=== PATIENT | female | born 1960 | race Caucasian/White ===

== ENCOUNTER → 2016-04-18 | Outpatient (CLI) | payer BC ==
[~2016-04-18] MED LIST: ADVIN25/60 INH; ALBU18002 INH; ALBU1AER9 INH; ATOR-54 PO; BUPR-267 PO; BUPR-79 PO; CALC-214 PO; CALCIUM PO; CETI10TA84 PO; CHOL1000 PO; CLC100 PO; CRD200 PO; CYAN10005 PO; DAPT500I IV; DILT0.05 PO; ESCI10TA17 PO; FLEC100T21 PO; FLEC50TA20 PO; GLC500 PO; HYDC25 PO; HYDR12.55 PO; LISI-729 PO; LISI10TA PO; LORA-741 PO; LPT/40 PO; MAGNTAB4 PO; METF-384 PO; METO100T14 PO; METO1TAB71 PO; METO25TA56 PO; MGNO400 PO; MONT1TAB5 PO; NAPR1TAB9 PO; OMEG10007 PO; OXYC-57 PO; OXYC-88 PO; RIVA1TAB4 PO; SLOW MAG PO; SNG10 PO; SULF800T23 PO; XRL10 PO
[2016-04-18 16:54] LABS: CHOLESTEROL/HDL RATIO 2.8
[2016-04-18 21:25] LABS: BLOOD UREA NITROGEN 17 mg/dl (7-18); BUN/CREATININE RATIO 20.2 (10-20); CARBON DIOXIDE 25 mmol/L (21-32); CHLORIDE 99 mmol/L (98-107); CREATININE 0.82 mg/dl (0.60-1.20); GLUCOSE 100 mg/dl (70-99); MAGNESIUM 1.5 mg/dl (1.8-2.4); POTASSIUM 4.3 mmol/L (3.5-5.1); SODIUM 138 mmol/L (136-145)
== END | disposition home or self-care (01) ==
LOC: C.LAB1850 15:31
PROVIDERS: ATTEND Nurse Practitioner Adult Health
DX: E83.42 Hypomagnesemia (principal); I48.0 Paroxysmal atrial fibrillation; E78.00 Pure hypercholesterolemia, unspecified

== ENCOUNTER → 2016-05-14 | Outpatient (CLI) | payer BC ==
[~2016-05-14] MED LIST changes: -METO25TA56 PO
[2016-05-14 14:40] LABS: BASO % 0.3 %; BASO ABS # 0.03 K/uL (0-0.2); COMPLETE YES; EOS % 3.3 %; HEMATOCRIT 39.3 % (37-47); IG% 0.2 %; LYMPH % 24.5 %; LYMPH ABS # 2.25 K/uL (1.2-3.4); MEAN CELL VOLUME 101.3 fL (80-100); MEAN CORPUSCULAR HEMOGLOBIN 33.5 pg (25-34); MEAN CORPUSCULAR HGB CONC 33.1 g/dl (32-36); MONO % 6.7 %; PLATELET COUNT 245 K/uL (130-400); RED BLOOD COUNT 3.88 M/uL (4.2-5.4); WHITE BLOOD COUNT 9.17 K/uL (4.8-10.8)
[2016-05-14 15:04] LABS: MAGNESIUM 1.4 mg/dl (1.8-2.4); THYROID STIMULATING HORMONE 3.4 uIu/ml (0.300-4.500)
[2016-05-14 15:18] LABS: RATIO 79.5 mcg/mg (0-30.0)
== END | disposition home or self-care (01) ==
LOC: C.LAB1850 13:33
PROVIDERS: ATTEND Internal Medicine
DX: I48.91 Unspecified atrial fibrillation (principal); E83.42 Hypomagnesemia; E11.9 Type 2 diabetes mellitus without complications; E03.9 Hypothyroidism, unspecified

== ENCOUNTER → 2016-05-22 | Day surgery (SDC) | payer BC ==
[~2016-05-22] VITALS: Ht 160 cm; Wt 117.0 kg
[~2016-05-22] MED LIST changes: +PROPOFOL IV EMULSION 10 MG/ML 20 ML VIAL IV ONE
[2016-05-22 07:05] VITALS: BP 120/77; PULSE 131; TEMP 36.3; O2SAT 96; Ht 160 cm; Wt 117.0 kg
[2016-05-22 07:40] VITALS: BP 109/87; PULSE 127; O2SAT 98
[2016-05-22 07:43] VITALS: BP 141/90; PULSE 70; O2SAT 98
[2016-05-22 07:45] VITALS: BP 124/74; PULSE 70; O2SAT 98
--- NOTE | 2016-05-22 07:49 | Anesthesiology Progress Note ---
Anesthesia Post Op Note Date & Time May 22, 2016 at 07:49 Vital Signs Pain Intensity: 0 Vital Signs Past 12 Hours Date Time Temp Pulse Resp B/P Pulse Ox O2 Delivery O2 Flow Rate FiO2 05/22/16 07:45 70 16 124/74 98 Nasal Cannula 4 05/22/16 07:43 70 16 141/90 98 Nasal Cannula 4 05/22/16 07:40 127 16 109/87 98 Nasal Cannula 4 05/22/16 07:05 36.3 131 16 120/77 96 Room Air Notes Mental Status: alert / awake / arousable, participated in evaluation Pt Amnestic to Procedure: Yes Nausea / Vomiting: adequately controlled Pain: adequately controlled Airway Patency, RR, SpO2: stable & adequate BP & HR: stable & adequate Hydration State: stable & adequate Anesthetic Complications: no major complications apparent
--- NOTE | 2016-05-22 07:56 | Procedure Note ---
Procedure Note Procedure Date May 22, 2016. Procedure Description Procedure Name: External Cardioversion Procedure time out: side/site verified, patient ID confirmed, correct procedure Consent obtained: written Time of procedure: 07:43 Performed by: attending Indications: therapeutic Contraindications: none Description: External DC Cardioversion Indication - Persistent atrial fibrillation with RVR. Informed consent obtained. Anesthesia provided by Dr. Aguirre. External pads placed in an anterior-lateral position. One synchronized shock provided at 200J with conversion to sinus rhythm. Patient monitored in recovery unit without complications. Summary: 1. Successful cardioversion for Atrial Fibrillation Recommendations: 1. Continue anticoagulation 2. Continue AV jennifer agents. 3. Follow-up with cardiology clinic in 2 weeks. Complications: none Patient tolerated procedure: well Post-procedure vital signs: reviewed and stable
--- NOTE | 2016-05-22 08:00 | Discharge Instructions ---
Discharge Instructions Procedure Procedure Date: May 22, 2016. Reason for Visit: W/Anesthesia A Fib *. Discharge Discharge Date: May 22, 2016. Discharge Diagnosis: Atrial Fibrillation Last Recorded Wt (Kilograms): 117 Anesthesia Post Anesthesia Instructions: If you have had General Anesthesia or IV Sedation: * Do not drive today. * Resume driving when fall intern permits. * Do not make important decisions or sign legal documents today. * Call surgeon for: 1. Temperature elevations greater than 101 degrees F. 2. Uncontrollable pain. 3. Excessive bleeding. 4. Persistent nausea and vomiting. 5. Medication intolerance (nausea, vomiting or rash). * For nausea and vomiting use only clear liquids such as: tea, soda, bouillon until nausea subsides, then gradually increase diet as tolerated. * If you have any concerns or questions, call your surgeon's office. If physician is unavailable and it is an emergency, call 911 or go to the nearest emergency room. Instructions Activity Recommendations: limitations as noted below Recommended Home Diet: resume previous diet Allergies: Coded Allergies: Penicillins (Verified Allergy, Unknown, UNKNOWN, 03/19/15) Provider Instructions Can resume normal activities tomorrow Follow Up Additional Instructions: Continue taking your Xarelto and Metoprolol Follow-up with: Nurys Milian as scheduled Jenni Hoang Recommendations: Call your doctor if: * Temperature above 101 degrees * Pain not relieved by pain medicine ordered * There is increased drainage or redness from any incision * You have any unanswered questions or concerns. Your Doctors Instructions noted above were prepared by provider Rob Martinez. Patient Signature Section: Patient Instructions Signature Page Chely Agrawal Patient (or Guardian) Signature/Date: I have read and understand the instructions given to me by my caregivers. Caregiver/RN/Doctor Signature/Date: The above-named patient and/or guardian has received patient instructions on this date. + Original Patient Signature Page (only) stays with chart. Please make copy for patient.
[2016-05-22 09:15] VITALS: BP 108/70; PULSE 68; O2SAT 95
== END | disposition home or self-care (01) ==
LOC: C.CATH 06:45
PROVIDERS: ATTEND Internal Medicine Interventional Cardiology
DX: I48.0 Paroxysmal atrial fibrillation (principal); I10 Essential (primary) hypertension; E11.9 Type 2 diabetes mellitus without complications; E78.5 Hyperlipidemia, unspecified; J45.909 Unspecified asthma, uncomplicated; F32.9 Major depressive disorder, single episode, unspecified; M86.10 Other acute osteomyelitis, unspecified site; E03.9 Hypothyroidism, unspecified; M19.90 Unspecified osteoarthritis, unspecified site; Z83.3 Family history of diabetes mellitus; Z82.49 Family history of ischemic heart disease and other diseases of the circulatory system

== ENCOUNTER → 2016-07-04 | Day surgery (SDC) | payer BC ==
[~2016-07-04] VITALS: Ht 160 cm; Wt 115.0 kg
[~2016-07-04] MED LIST changes: -ATOR-54 PO; -HYDC25 PO; +LIDOCAINE HCL 2% 2 ML VIAL (20MG/ML) ONE; -LISI10TA PO; -MAGNTAB4 PO; +METO-649 PO; -METO100T14 PO; -METO1TAB71 PO
[2016-07-04 07:05] VITALS: BP 150/114; PULSE 129; TEMP 36.5; O2SAT 96; Ht 160 cm; Wt 115.0 kg
[2016-07-04 07:36] VITALS: BP 143/91; PULSE 108; O2SAT 99
[2016-07-04 07:40] VITALS: BP 147/103; PULSE 128; O2SAT 93
[2016-07-04 07:45] VITALS: BP 101/56; PULSE 60; O2SAT 98
[2016-07-04 07:50] VITALS: BP 100/59; PULSE 60; O2SAT 99
--- NOTE | 2016-07-04 07:55 | Procedure Note ---
Procedure Note Procedure Date Jul 04, 2016. Procedure Description Procedure Name: External DC Cardioversion Procedure time out: patient ID confirmed, correct procedure Consent obtained: written Time of procedure: 07:41 Performed by: attending Indications: therapeutic Contraindications: none Description: Indication - Persistent atrial fibrillation with RVR. Repeat attempt now on antiarrhythmics. Informed consent obtained. Anesthesia provided by Dr. Godinez. External pads placed in an anterior-lateral position. One synchronized shock provided at 200J with conversion to sinus rhythm. Patient monitored in recovery unit without complications. Summary: 1. Successful cardioversion for Atrial Fibrillation Recommendations: 1. Continue anticoagulation 2. Continue metoprolol and flecanide 3. Follow-up with cardiology clinic in 2 weeks.
--- NOTE | 2016-07-04 07:56 | Anesthesiology Progress Note ---
Anesthesia Post Op Note Date & Time Jul 04, 2016 at 07:55 Vital Signs Pain Intensity: 0 Vital Signs Past 12 Hours Date Time Temp Pulse Resp B/P Pulse Ox O2 Delivery O2 Flow Rate FiO2 07/04/16 07:51 58 18 100/59 98 Nasal Cannula 2 07/04/16 07:50 60 18 100/59 99 Nasal Cannula 2 07/04/16 07:45 60 18 101/56 98 Nasal Cannula 4 07/04/16 07:40 128 18 147/103 93 Nasal Cannula 4 07/04/16 07:36 108 18 143/91 99 Nasal Cannula 4 07/04/16 07:05 36.5 129 16 150/114 96 Room Air Notes Mental Status: alert / awake / arousable, participated in evaluation Pt Amnestic to Procedure: Yes Nausea / Vomiting: adequately controlled Pain: adequately controlled Airway Patency, RR, SpO2: stable & adequate BP & HR: stable & adequate Hydration State: stable & adequate Anesthetic Complications: no major complications apparent Pt had DC cardioversion under IV sedation. She did well. When I left she was in SR, vitals stable, awake and talking.
--- NOTE | 2016-07-04 08:02 | Discharge Instructions ---
Discharge Instructions Procedure Procedure Date: Jul 04, 2016. Reason for Visit: *W/Anesthesia* Afib. Discharge Discharge Date: Jul 04, 2016. Discharge Diagnosis: Atrial Fibrillation Last Recorded Wt (Kilograms): 115 Anesthesia Post Anesthesia Instructions: If you have had General Anesthesia or IV Sedation: * Do not drive today. * Resume driving when surgeon permits. * Do not make important decisions or sign legal documents today. * Call surgeon for: 1. Temperature elevations greater than 101 degrees F. 2. Uncontrollable pain. 3. Excessive bleeding. 4. Persistent nausea and vomiting. 5. Medication intolerance (nausea, vomiting or rash). * For nausea and vomiting use only clear liquids such as: tea, soda, bouillon until nausea subsides, then gradually increase diet as tolerated. * If you have any concerns or questions, call your surgeon's office. If physician is unavailable and it is an emergency, call 911 or go to the nearest emergency room. Instructions Activity Recommendations: resume regular activity Recommended Home Diet: resume previous diet Allergies: Coded Allergies: Penicillins (Verified Allergy, Unknown, UNKNOWN, 03/19/15) Follow Up Follow-up with: Cardiology clinic in 2-4 weeks [facility] Recommendations: Call your doctor if: * Temperature above 101 degrees * Pain not relieved by pain medicine ordered * There is increased drainage or redness from any incision * You have any unanswered questions or concerns. Your Doctors Instructions noted above were prepared by provider Rob Martinez. Patient Signature Section: Patient Instructions Signature Page Chely Agrawal Patient (or Guardian) Signature/Date: I have read and understand the instructions given to me by my caregivers. Caregiver/RN/Doctor Signature/Date: The above-named patient and/or guardian has received patient instructions on this date. + Original Patient Signature Page (only) stays with chart. Please make copy for patient.
[2016-07-04 09:00] VITALS: BP 104/72; PULSE 58; O2SAT 96
== END | disposition home or self-care (01) ==
LOC: C.CATH 06:39
PROVIDERS: ATTEND Internal Medicine Interventional Cardiology
DX: I48.91 Unspecified atrial fibrillation (principal); I10 Essential (primary) hypertension; M86.9 Osteomyelitis, unspecified; E78.5 Hyperlipidemia, unspecified; J45.909 Unspecified asthma, uncomplicated; F32.9 Major depressive disorder, single episode, unspecified; E11.42 Type 2 diabetes mellitus with diabetic polyneuropathy; E78.00 Pure hypercholesterolemia, unspecified; E66.9 Obesity, unspecified; M19.90 Unspecified osteoarthritis, unspecified site; Z87.891 Personal history of nicotine dependence; Z88.0 Allergy status to penicillin; Z88.8 Allergy status to other drugs, medicaments and biological substances

== ENCOUNTER 2016-09-13 11:48 | Inpatient (IN) | payer BC ==
[~2016-09-13] VITALS: Ht 160 cm; Wt 124.4 kg
[~2016-09-13 11:48] MED LIST changes: -ALBU18002 INH; -BUPR-267 PO; -CALC-214 PO; -CETI10TA84 PO; -CLC100 PO; -CRD200 PO; -DAPT500I IV; -DILT0.05 PO; -FLEC50TA20 PO; -LIDOCAINE HCL 2% 2 ML VIAL (20MG/ML) ONE; -METF-384 PO; -MGNO400 PO; -MONT1TAB5 PO; -OMEG10007 PO; -OXYC-57 PO; -OXYC-88 PO; -PROPOFOL IV EMULSION 10 MG/ML 20 ML VIAL IV ONE
[2016-09-13] MEDS ORDERED: ALBU18002 INH (12:48)
[2016-09-13] MEDS ORDERED: METF-384 PO (12:48)
[2016-09-13] MEDS ORDERED: MONT1TAB5 PO (12:48)
[2016-09-13] MEDS ORDERED: CETI10TA84 PO (12:48)
[2016-09-13] MEDS ORDERED: CALC-214 PO (12:48)
[2016-09-13] MEDS ORDERED: SODIUM CHLORIDE 0.9% 1000ML 1,000 ML IV STA ×2 (12:56→13:11)
[2016-09-13 13:13] LABS: BASO % 0.2 %; BASO ABS # 0.02 K/uL (0-0.2); COMPLETE YES; HEMATOCRIT 36.3 % (37-47); IG% 0.2 %; LYMPH % 13.6 %; LYMPH ABS # 1.38 K/uL (1.2-3.4); MEAN CELL VOLUME 100.8 fL (80-100); MEAN CORPUSCULAR HEMOGLOBIN 32.5 pg (25-34); MEAN CORPUSCULAR HGB CONC 32.2 g/dl (32-36); MEAN PLATELET VOLUME 10.3 fL (7.4-10.4); MONO % 7.3 %; NEUT % 77.7 %; PLATELET COUNT 231 K/uL (130-400); WHITE BLOOD COUNT 10.11 K/uL (4.8-10.8)
--- NOTE | 2016-09-13 13:13 | EMERGENCY ROOM VISIT NOTE ---
History Report prepared by Tha: Katharine Ray Under the Supervision of: Dr. Venkat Coronel M.D. First contact with patient: 12:25 Chief Complaint: INFECTION Stated Complaint: LEFT FOOT MIDDLE TOE-TOE INFECTION Nursing Triage Summary: "left middle toe infection" has had for about a week ( stubbed it over a week ago) got worse last night. increased edema, redness and drainage. pt type 2 diabetic, also has neuropathy. History of Present Illness The patient is a 56 year old female who presents to the Emergency Room with complaints of swelling and erythema of the third left toe starting about 2 days ago and worsening today. She has erythema radiating up to the left leg. She stubbed the toe about a week and a half ago but did not initially have any pain , discomfort, or difficulty, with movement of the toe. She is now unable to move the toe as normal. She currently denies any pain but has a history of neuropathy. She reports some tingling in the left foot. The patient has a history of diabetes. Her blood sugar level has been normal recently but she has not checked it in the past few days. She also has a history of right fifth toe removal secondary to infection. She has an infection of the right leg after a right knee replacement and she is chronically on Bactrim. She denies any fevers , chills, or any other complaints. Source of History: patient Onset: about 2 days ago Position: toe(s) (third left toe) Quality: other (swelling and erythema) Timing: worsening Modifying Factors (Relieving): other (Bactrim) Associated Symptoms: No fevers, No chills Review of Systems See HPI for pertinent positives & negatives. A total of 10 systems reviewed and were otherwise negative. Past Medical & Surgical Medical Problems: (1) Abscess or cellulitis of foot (2) Anxiety (3) Asthma (4) cellulitis (5) Cellulitis of third toe, left (6) Cellulitis of third toe, left (7) Depression (8) Diabetes (9) Diabetic foot infection (10) Hypercholesteremia (11) Hypertension (12) Osteomyelitis (13) Paroxysmal a-fib Surgical Problems: (1) History of knee replacement procedure of right knee (2) Post-operative state Family History Diabetes mellitus FHx: cancer FHx: heart disease Hypertension Kidney disease Kidney stones Social History Smoking Status: Never Smoker Alcohol Use: none Drug Use: none Marital Status: single Housing Status: lives with family Occupation Status: employed Current/Historical Medications Scheduled Atorvastatin (Lipitor), 40 MG PO DAILY Bupropion (Wellbutrin Sr), 150 MG PO DAILY Calcium W/ Magnesium (Calcium & Magnesium), 64-106 MG PO BID Cetirizine (Zyrtec), 10 MG PO DAILY Cholecalciferol (Vitamin D3), 1 TAB PO DAILY Cyanocobalamin (Vitamin B-12), 1,000 MCG PO DAILY Escitalopram (Lexapro), 10 MG PO HS Flecainide (Tambocor), 100 MG PO BID Fluticasone Prop/Salmeterol (Advair Diskus 250/50 60 Dose), 1 PUFFS INH DAILY Hydrochlorothiazide (Hydrochlorothiazide), 1 TAB PO DAILY Lisinopril (Zestril), 5 MG PO DAILY Metformin Hcl (Glucophage), 1,000 MG PO BID Metoprolol Succinate (Toprolxl (Toprol-Xl), 200 MG PO DAILY Montelukast Sodium (Montelukast Sodium), 1 TAB PO DAILY Rivaroxaban (Xarelto), 1 TAB PO DAILY Sulfa/Trimethoprim (Bactrim Ds 800MG/160MG), 1 TAB PO BID Scheduled PRN Albuterol Sulfate (Proair Respiclick), 2 PUFFS INH q4-6h PRN for SOB/Wheezing Lorazepam (Ativan), 0.25-0.5 MG PO BID PRN for Anxiety/Agitation Naproxen (Aleve), 220 MG PO Q12 PRN for Pain Allergies Coded Allergies: Penicillins (Verified Allergy, Unknown, UNKNOWN, 03/19/15) Physical Exam Vital Signs Date Time Temp Pulse Resp B/P (MAP) Pulse Ox O2 Delivery O2 Flow Rate FiO2 09/13/16 13:30 114 21 150/122 94 Room Air 09/13/16 11:54 36.7 118 20 149/83 96 Room Air Physical Exam GENERAL: Patient is anxious appearing and in minimal distress. HEENT: No acute trauma, normocephalic atraumatic, mucous membranes moist, no nasal congestion, no scleral icterus. NECK: No stridor, no adenopathy, no meningismus, trachea is midline. LUNGS: No dyspnea. Clear to auscultation and equal bilaterally. No wheeze, no rhonchi. HEART: Tachycardic rate and regular rhythm. No murmurs, rubs, gallops appreciated. ABDOMEN: Soft, nontender, bowel sounds positive, no masses appreciated, no peritonitis. BACK: No midline tenderness, no CVA tenderness EXTREMITIES: No cyanosis. Severe swelling of the third left toe, with drainage from multiple points on tip, erythema streaking over foot to ankle and up to knee, she has some left inguinal lymphadenopathy, swelling of the left foot compared to right, nonhealing wound of the right gaines. NEUROLOGIC: Alert and oriented, no acute motor or sensory deficits, no focal weakness, cranial nerves grossly intact. SKIN: Mildly diaphoretic. No rash, no jaundice. Medical Decision & Procedures ER Provider Diagnostic Interpretation: X ray results are stated below per my interpretation and the radiologist's interpretation. LEFT THIRD TOE RADIOGRAPHS CLINICAL HISTORY: Left third toe infection. COMPARISON: Left toe radiographs February 28, 2013. FINDINGS: Note is made of soft tissue swelling of the left third toe. There is destruction of the mid to distal aspect of the distal phalanx of the left third toe. A few remaining bone fragments are present. No radiopaque foreign bodies are identified. No acute fracture is identified. IMPRESSION: Soft tissue swelling of the left third toe with destruction of the mid to distal aspect of the distal phalanx of the left third toe consistent with osteomyelitis given the clinical history. Electronically signed by: Jose Ramon Bates M.D. 09/13/2016 1:49 PM Dictated Date/Time: 09/13/2016 1:47 PM Laboratory Results 09/13/16 12:48 Red Blood Count 3.60, Mean Corpuscular Volume 100.8, Mean Corpuscular Hemoglobin 32.5, Mean Corpuscular Hemoglobin Concent 32.2, Mean Platelet Volume 10.3, Neutrophils (%) (Auto) 77.7, Lymphocytes (%) (Auto) 13.6, Monocytes (%) ( Auto) 7.3, Eosinophils (%) (Auto) 1.0, Basophils (%) (Auto) 0.2, Neutrophils # ( Auto) 7.85, Lymphocytes # (Auto) 1.38, Monocytes # (Auto) 0.74, Eosinophils # ( Auto) 0.10, Basophils # (Auto) 0.02 09/13/16 12:48 Test 09/13/16 12:48 09/13/16 12:57 White Blood Count 10.11 K/uL (4.8-10.8) Red Blood Count 3.60 M/uL (4.2-5.4) Hemoglobin 11.7 g/dL (12.0-16.0) Hematocrit 36.3 % (37-47) Mean Corpuscular Volume 100.8 fL (80-100) Mean Corpuscular Hemoglobin 32.5 pg (25-34) Mean Corpuscular Hemoglobin Concent 32.2 g/dl (32-36) Platelet Count 231 K/uL (130-400) Mean Platelet Volume 10.3 fL (7.4-10.4) Neutrophils (%) (Auto) 77.7 % Lymphocytes (%) (Auto) 13.6 % Monocytes (%) (Auto) 7.3 % Eosinophils (%) (Auto) 1.0 % Basophils (%) (Auto) 0.2 % Neutrophils # (Auto) 7.85 K/uL (1.4-6.5) Lymphocytes # (Auto) 1.38 K/uL (1.2-3.4) Monocytes # (Auto) 0.74 K/uL (0.11-0.59) Eosinophils # (Auto) 0.10 K/uL (0-0.5) Basophils # (Auto) 0.02 K/uL (0-0.2) RDW Standard Deviation 52.8 fL (36.4-46.3) RDW Coefficient of Variation 14.3 % (11.5-14.5) Immature Granulocyte % (Auto) 0.2 % Immature Granulocyte # (Auto) 0.02 K/uL (0.00-0.02) Erythrocyte Sedimentation Rate 55 mm/hr (0-21) Anion Gap 12.0 mmol/L (3-11) Est Creatinine Clear Calc Drug Dose 124.1 ml/min Estimated GFR () 116.7 Estimated GFR (Non- 100.7 BUN/Creatinine Ratio 16.4 (10-20) Calcium Level 9.0 mg/dl (8.5-10.1) C-Reactive Protein 5.59 mg/dl (0-0.29) Bedside Lactic Acid Venous 2.55 mmol/L (0.90-1.70) Laboratory results as reviewed by me. Medications Administered Medications (Trade) Dose Ordered Sig/Flash Route Start Time Stop Time Status Last Admin Dose Admin Sodium Chloride 1,000 ml @ 999 mls/hr Q1H1M STAT IV 09/13/16 12:56 09/13/16 13:56 DC 09/13/16 12:56 999 MLS/HR Sodium Chloride 1,000 ml @ 999 mls/hr Q1H1M STAT IV 09/13/16 13:11 09/13/16 14:11 DC 09/13/16 13:11 999 MLS/HR Vancomycin HCl 2800 mg/Sodium Chloride 556 ml @ 200 mls/hr ONE STAT IV 09/13/16 14:00 09/13/16 16:46 09/13/16 14:39 200 MLS/HR Aztreonam 2000 mg/ Dextrose 110 ml @ 100 mls/hr NOW STAT IV 09/13/16 14:00 09/13/16 15:05 DC 09/13/16 15:00 100 MLS/HR ED Course 1225: The patient was evaluated in room B08. A complete history and physical exam was performed. 1256: Sodium Chloride 1000 ml @ 999 mls/hr IV 1311: Sodium Chloride 1000 ml @ 999 mls/hr IV 1358: I discussed the patient's case with Dr. Huff, from [facility]. 1400: Aztreonam 2000 mg/Dextrose 110 ml @ 100 mls/hr IV, Vancomycin HCl 2800 mg/ Sodium Chloride 556 ml @ 200 mls/hr IV. Upon reevaluation, the patient is resting comfortably. Discussed results and treatment plan with the patient. She verbalized understanding and agreement with the treatment plan. The patient will be evaluated for further management. Medical Decision Differential diagnosis includes but is not limited to sepsis, osteomyelitis, diabetic foot infection, MRSA. Medication Reconciliation: I attest that I have personally reviewed the patient 's current medication list. Blood pressure screening: Patient was found to have an elevated blood pressure and was referred to the hospitalist for recheck and further treatment. 56 yr old female arrives for evaluation of left 3 toe infection. Seems likely ongoing for quite some time though clearly has rapidly worsened, now with erythema going up leg and lymph node swelling left groin. Afebrile, but elevated inflammatory markers with tachycardia and elevated Lactic Acid concerning for early sepsis. She is diabetic and already on suppressive abx therapy. Will need to come in for IV abx and likely toe, etc amputation. She is not septic shock. Given Moderate Fluid resus for lactic acidosis though with obesity and good BP will hold on 30ml/kg. Consults Time Called: 0624 Consulting Physician: Dr. Huff, from [facility] Returned Call: [phone] I discussed the patient's case with Dr. Huff, from [facility]. Impression Primary Impression: Toe osteomyelitis, left Additional Impression: Sepsis Scribe Attestation The scribe's documentation has been prepared under my direction and personally reviewed by me in its entirety. I confirm that the note above accurately reflects all work, treatment, procedures, and medical decision making performed by me. Departure Information Dispostion Being Evaluated By Hospitalist Referrals ,Parveen Copeland M.D. (PCP) Patient Instructions My [facility] [address] Health Problem Qualifiers
[2016-09-13 13:26] LABS: BLOOD UREA NITROGEN 11 mg/dl (7-18); BUN/CREATININE RATIO 16.4 (10-20); C-REACTIVE PROTEIN 5.59 mg/dl (0-0.29); CARBON DIOXIDE 26 mmol/L (21-32); CHLORIDE 98 mmol/L (98-107); CREATININE 0.65 mg/dl (0.60-1.20); GLUCOSE 99 mg/dl (70-99); SODIUM 136 mmol/L (136-145)
--- NOTE | 2016-09-13 13:51 | DIAGNOSTIC IMAGING REPORT ---
LEFT THIRD TOE RADIOGRAPHS CLINICAL HISTORY: Left third toe infection. COMPARISON: Left toe radiographs February 28, 2013. FINDINGS: Note is made of soft tissue swelling of the left third toe. There is destruction of the mid to distal aspect of the distal phalanx of the left third toe. A few remaining bone fragments are present. No radiopaque foreign bodies are identified. No acute fracture is identified. IMPRESSION: Soft tissue swelling of the left third toe with destruction of the mid to distal aspect of the distal phalanx of the left third toe consistent with osteomyelitis given the clinical history. Electronically signed by: Jose Ramon Bates M.D. 09/13/2016 1:49 PM Dictated Date/Time: 09/13/2016 1:47 PM
[2016-09-13] MEDS ORDERED: VANCOMYCIN INJ 2,800 MG in SODIUM CHLORIDE 0.9% 500ML 500 ML IV STA (14:00)
[2016-09-13] MEDS ORDERED: AZTREONAM IV 2,000 MG in DEXTROSE 5% 100ML 100 ML IV STA (14:00)
[2016-09-13 14:30] VITALS: O2SAT 94; Ht 160 cm; Wt 124.4 kg
[2016-09-13] MEDS ORDERED: FLUTICASONE/SALMETEROL 250/50 (ADVAIR) 14 PUFF/1 INHALER INH PRN (14:30)
[2016-09-13] MEDS ORDERED: ONDANSETRON INJ 2 MG/ML 2 ML VIAL IV PRN (15:00)
[2016-09-13] MEDS ORDERED: DEXTROSE 50% 50 ML SYR IV PRN (15:00)
[2016-09-13] MEDS ORDERED: GLUCAGON FOR INJ 1 MG VIAL SQ PRN (15:00)
[2016-09-13] MEDS ORDERED: GLUCOSE 10 TABS/TUBE PO PRN (15:00)
[2016-09-13] MEDS ORDERED: ALBUTEROL HFA 8 GM INHALER INH PRN (15:00)
[2016-09-13] MEDS ORDERED: GLUCOSE 40% GEL 15 GM TUBE PO PRN (15:00)
[2016-09-13] MEDS ORDERED: ACETAMINOPHEN IV 100 ML IV PRN (15:00)
[2016-09-13] MEDS ORDERED: VANCOMYCIN CONSULT ACTIVE PRN (15:00)
--- NOTE | 2016-09-13 15:24 | Pharmacy Progress Note ---
Pharmacy Antibiotic Consult Date of Service: Sep 13, 2016. Pharmacy Dosing Scope Pharmacy is consulted to initiate vancomycin, aztreonam, and clindamycin IV dosing therapy, order appropriate labs and adjust drug dose/frequency. Subjective The patient is a 56 year old female admitted on 09/13/16 with complaints of swelling and erythema of the third left toe starting about 2 days ago and worsening today. Objective Height (Feet): 5 Height (Inches): 3.00 Weight (Kilograms): 120.000 Lab Results (24hrs): Test 09/13/16 12:44 09/13/16 12:48 09/13/16 12:57 09/13/16 14:26 Bedside Glucose 106 mg/dl (70-90) 99 mg/dl (70-90) White Blood Count 10.11 K/uL (4.8-10.8) Red Blood Count 3.60 M/uL (4.2-5.4) Hemoglobin 11.7 g/dL (12.0-16.0) Hematocrit 36.3 % (37-47) Mean Corpuscular Volume 100.8 fL (80-100) Mean Corpuscular Hemoglobin 32.5 pg (25-34) Mean Corpuscular Hemoglobin Concent 32.2 g/dl (32-36) Platelet Count 231 K/uL (130-400) Mean Platelet Volume 10.3 fL (7.4-10.4) Neutrophils (%) (Auto) 77.7 % Lymphocytes (%) (Auto) 13.6 % Monocytes (%) (Auto) 7.3 % Eosinophils (%) (Auto) 1.0 % Basophils (%) (Auto) 0.2 % Neutrophils # (Auto) 7.85 K/uL (1.4-6.5) Lymphocytes # (Auto) 1.38 K/uL (1.2-3.4) Monocytes # (Auto) 0.74 K/uL (0.11-0.59) Eosinophils # (Auto) 0.10 K/uL (0-0.5) Basophils # (Auto) 0.02 K/uL (0-0.2) RDW Standard Deviation 52.8 fL (36.4-46.3) RDW Coefficient of Variation 14.3 % (11.5-14.5) Immature Granulocyte % (Auto) 0.2 % Immature Granulocyte # (Auto) 0.02 K/uL (0.00-0.02) Erythrocyte Sedimentation Rate 55 mm/hr (0-21) Sodium Level 136 mmol/L (136-145) Potassium Level mmol/L (3.5-5.1) Chloride Level 98 mmol/L (98-107) Carbon Dioxide Level 26 mmol/L (21-32) Anion Gap 12.0 mmol/L (3-11) Blood Urea Nitrogen 11 mg/dl (7-18) Creatinine 0.65 mg/dl (0.60-1.20) Est Creatinine Clear Calc Drug Dose 124.1 ml/min Estimated GFR () 116.7 Estimated GFR (Non- 100.7 BUN/Creatinine Ratio 16.4 (10-20) Random Glucose 99 mg/dl (70-99) Calcium Level 9.0 mg/dl (8.5-10.1) C-Reactive Protein 5.59 mg/dl (0-0.29) Bedside Lactic Acid Venous 2.55 mmol/L (0.90-1.70) Test 09/13/16 14:41 Micro Results: Item Value Date Time Blood Culture Received 09/13/16 1248 Blood Pending Blood Culture Received 09/13/16 1257 Blood Pending Blood Culture Received 09/13/16 1441 Blood Pending Blood Culture Received 09/13/16 1452 Blood Pending Recent Pertinent Medications Bactrim chronically at home Assessment & Plan Assessment: * 56 y/o with c/o worsening infection of toe * takes Bactrim at home chronically * MRI worrisome for osteomyelitis given H Plan: * Vancomycin, Aztreonam, and Clindamycin (broad-spectrum ABX in the setting of PCN allergy) Vancomycin: * Loading dose: 2800 mg (~23mg/kg) IV X 1 dose given in ED * Maintenance dos: 1500 mg (~12.5mg/kg) IV q 8 hours * atypical dosing secondary to likelihood for drug accumulation given body habitus * Goal trough level for bone/joint infections: 15-20mcg/mL * A trough level will be assessed at steady state on 09/15/16 prior to 08:00 dose Aztreonam (not a pharmacy consult): * 2000mg IV x1 dose given in ED * Continue 2000mg IV every 8 hours Clindamycin (not a pharmacy consult): * 900mg IV every 8 hours Pharmacy will continue to follow and will adjust dose/frequency as necessary. Thank you
[2016-09-13 16:30] VITALS: BP 125/95; PULSE 98; TEMP 36.9; O2SAT 95
[2016-09-13] MEDS: LORAZEPAM 0.5 MG TAB PO PRN (16:56)
[2016-09-13] MEDS: LACTOBACILLUS ACIDOPHILUS (FLORANEX) TAB PO SCH (17:34)
[2016-09-13] MEDS: CLINDAMYCIN IV 900 MG in DEXTROSE 5% ADD-VANTAGE 100ML 100 ML IV SCH (17:34)
[2016-09-13] MEDS: INSULIN ASPART 100 UNITS/ML 3 ML PEN SC SCH ×2 (17:44→20:58)
--- NOTE | 2016-09-13 18:58 | History and Physical ---
History & Physical Date & Time of Service: Sep 13, 2016 at 18:40 Chief Complaint: Sepsis, Toe Osteomyelitis -Left Primary Care Physician: Parveen Fishman M.D. History of Present Illness Source: patient The patient is a 56-year-old female with past medical history of diabetes mellitus, previous right fifth toe amputation, who reports that 2 days ago she developed left third toe swelling and redness that worsened today. She reports this began after she stubbed her toe week 1 1/2 weeks ago, but has significant neuropathy, and was unaware of any symptoms until 2 days ago. 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 Past Medical/Surgical History Medical Problems: (1) Abscess or cellulitis of foot Status: Resolved (2) Anxiety Status: Chronic (3) Asthma Status: Chronic (4) cellulitis Status: Resolved (5) Cellulitis of third toe, left Status: Resolved (6) Cellulitis of third toe, left Status: Resolved (7) Depression Status: Chronic (8) Diabetes Status: Chronic (9) Diabetic foot infection Status: Resolved (10) Hypercholesteremia Status: Chronic (11) Hypertension Status: Chronic (12) Osteomyelitis Status: Chronic (13) Paroxysmal a-fib Status: Resolved Surgical Problems: (1) History of knee replacement procedure of right knee Status: Resolved (2) Post-operative state Status: Resolved Family History Diabetes mellitus FHx: cancer FHx: heart disease Hypertension Kidney disease Kidney stones Social History Smoking Status: Never Smoker Smokeless Tobacco Use: No Alcohol Use: none Drug Use: none Marital Status: single Occupational Status: employed Immunizations History of Influenza Vaccine: No History of Tetanus Vaccine?: Yes History of Pneumococcal: No History of Hepatitis B Vaccine: No Multi-Drug Resistant Organisms History of MDRO: No Allergies Coded Allergies: Penicillins (Verified Allergy, Unknown, UNKNOWN, 03/19/15) Home Medications Scheduled Atorvastatin (Lipitor), 40 MG PO DAILY Bupropion (Wellbutrin Sr), 150 MG PO DAILY Calcium W/ Magnesium (Calcium & Magnesium), 64-106 MG PO BID Cetirizine (Zyrtec), 10 MG PO DAILY Cholecalciferol (Vitamin D3), 1 TAB PO DAILY Cyanocobalamin (Vitamin B-12), 1,000 MCG PO DAILY Escitalopram (Lexapro), 10 MG PO HS Flecainide (Tambocor), 100 MG PO BID Fluticasone Prop/Salmeterol (Advair Diskus 250/50 60 Dose), 1 PUFFS INH DAILY Hydrochlorothiazide (Hydrochlorothiazide), 1 TAB PO DAILY Lisinopril (Zestril), 5 MG PO DAILY Metformin Hcl (Glucophage), 1,000 MG PO BID Metoprolol Succinate (Toprolxl (Toprol-Xl), 200 MG PO DAILY Montelukast Sodium (Montelukast Sodium), 1 TAB PO DAILY Rivaroxaban (Xarelto), 1 TAB PO DAILY Sulfa/Trimethoprim (Bactrim Ds 800MG/160MG), 1 TAB PO BID Scheduled PRN Albuterol Sulfate (Proair Respiclick), 2 PUFFS INH q4-6h PRN for SOB/Wheezing Lorazepam (Ativan), 0.25-0.5 MG PO BID PRN for Anxiety/Agitation Naproxen (Aleve), 220 MG PO Q12 PRN for Pain Review of Systems The patient denies chest pain, palpitations, shortness of breath, cough, vision change, hearing change, sore throat, fevers, chills, sweats, weight change, fatigue, nausea, vomiting, abdominal pain, pelvic pain, blood in urine or stool, dysuria, urinary frequency or urgency, lightheadedness, dizziness, headache, memory loss, abnormal bruising or bleeding, imbalance, focal or generalized weakness, arthralgias or myalgias, back or neck pain, night sweats, or allergy symptoms. The review of systems is otherwise negative other than for that already noted above, and at least 10 systems have been reviewed. Physical Exam Vital Signs Date Time Temp Pulse Resp B/P (MAP) Pulse Ox O2 Delivery O2 Flow Rate FiO2 09/13/16 16:30 36.9 98 18 125/95 (105) 95 Room Air 09/13/16 16:00 Room Air 09/13/16 15:36 107 22 159/98 96 09/13/16 14:30 94 Room Air 09/13/16 13:30 114 21 150/122 94 Room Air 09/13/16 11:54 36.7 118 20 149/83 96 Room Air The patient is awake, well-developed and adequately nourished, alert and oriented 3, normocephalic and atraumatic, lying in bed and in no acute distress. HEENT--PERRL, EOMI, mucous membranes and oropharynx normal. Neck--supple, no JVD or bruits, thyroid normal, trachea midline, no adenopathy. Heart--normal S1 and S2, no extra beats, no murmurs, rubs or gallops. Lungs--clear bilaterally with good air movement, no respiratory distress, no accessory muscle use. Abdomen--normal bowel sounds and soft, nontender and nondistended, no hernias or masses, no organomegaly, and obese. Extremities--no cyanosis, clubbing.there is bilaterally pretibially 1+ pitting edema. There diminished distal pulses b/l. Right gaines with a 1 cm area ulcerated lesion below pretibial tuberosity. Left lower extremity with erythema dorsum of the left foot involving toes 2 through 4, with severe erythema and induration of the third toe. Dermatologic--as noted above. Neurologic--cranial nerves II through XII grossly intact. Rheumatologic--decreased range of motion left ankle, foot and toes. Psychiatric--appears sad and concerned. Diagnostics Laboratory Results Results Past 24 Hours Test 09/13/16 12:44 09/13/16 12:48 09/13/16 12:57 09/13/16 14:26 Range/Units Bedside Glucose 106 99 70-90 mg/dl White Blood Count 10.11 4.8-10.8 K/uL Red Blood Count 3.60 4.2-5.4 M/uL Hemoglobin 11.7 12.0-16.0 g/dL Hematocrit 36.3 37-47 % Mean Corpuscular Volume 100.8 80-100 fL Mean Corpuscular Hemoglobin 32.5 25-34 pg Mean Corpuscular Hemoglobin Concent 32.2 32-36 g/dl Platelet Count 231 130-400 K/uL Mean Platelet Volume 10.3 7.4-10.4 fL Neutrophils (%) (Auto) 77.7 % Lymphocytes (%) (Auto) 13.6 % Monocytes (%) (Auto) 7.3 % Eosinophils (%) (Auto) 1.0 % Basophils (%) (Auto) 0.2 % Neutrophils # (Auto) 7.85 1.4-6.5 K/uL Lymphocytes # (Auto) 1.38 1.2-3.4 K/uL Monocytes # (Auto) 0.74 0.11-0.59 K/uL Eosinophils # (Auto) 0.10 0-0.5 K/uL Basophils # (Auto) 0.02 0-0.2 K/uL RDW Standard Deviation 52.8 36.4-46.3 fL RDW Coefficient of Variation 14.3 11.5-14.5 % Immature Granulocyte % (Auto) 0.2 % Immature Granulocyte # (Auto) 0.02 0.00-0.02 K/uL Erythrocyte Sedimentation Rate 55 0-21 mm/hr Sodium Level 136 136-145 mmol/L Potassium Level 3.5-5.1 mmol/L Chloride Level 98 98-107 mmol/L Carbon Dioxide Level 26 21-32 mmol/L Anion Gap 12.0 3-11 mmol/L Blood Urea Nitrogen 11 7-18 mg/dl Creatinine 0.65 0.60-1.20 mg/dl Est Creatinine Clear Calc Drug Dose 124.1 ml/min Estimated GFR () 116.7 Estimated GFR (Non- 100.7 BUN/Creatinine Ratio 16.4 10-20 Random Glucose 99 70-99 mg/dl Calcium Level 9.0 8.5-10.1 mg/dl C-Reactive Protein 5.59 0-0.29 mg/dl Bedside Lactic Acid Venous 2.55 0.90-1.70 mmol/L Test 09/13/16 14:41 09/13/16 15:55 09/13/16 16:15 Range/Units Total Bilirubin 0.6 0.2-1 mg/dl Direct Bilirubin 0.2 0-0.2 mg/dl Aspartate Amino Transf (AST/SGOT) 14 15-37 U/L Alanine Aminotransferase (ALT/SGPT) 16 12-78 U/L Alkaline Phosphatase 129 45-117 U/L Total Protein 7.3 6.4-8.2 gm/dl Albumin 3.5 3.4-5.0 gm/dl Hepatitis C Antibody Screen NEG NEG Lactic Acid Level 1.5 0.4-2.0 mmol/L Bedside Glucose 106 70-90 mg/dl Microbiology Results 09/13/16 Blood Culture, Received Pending 09/13/16 Blood Culture, Received Pending 09/13/16 Blood Culture, Received Pending 09/13/16 Blood Culture, Received Pending Diagnostic Radiology Patient Name: MILA RUVALCABA Unit Number: [id number] Dictated: 09/13/[id number] Transcribed: 09/13/161346 JA Printed Date/Time: [~ rep prt dt]/[~ rep prt tm] [~ rep ct labl] - [~ rep ct ivnm] [facility] [place] [address] Dictated: 09/13/[id number] Transcribed: 09/13/161346 JA Printed Date/Time: [~ rep prt dt]/[~ rep prt tm] [~ rep ct labl] - [~ rep ct ivnm] [~ rep ct add3]] LEFT THIRD TOE RADIOGRAPHS CLINICAL HISTORY: Left third toe infection. COMPARISON: Left toe radiographs February 28, 2013. FINDINGS: Note is made of soft tissue swelling of the left third toe. There is destruction of the mid to distal aspect of the distal phalanx of the left third toe. A few remaining bone fragments are present. No radiopaque foreign bodies are identified. No acute fracture is identified. IMPRESSION: Soft tissue swelling of the left third toe with destruction of the mid to distal aspect of the distal phalanx of the left third toe consistent with osteomyelitis given the clinical history. Electronically signed by: Jose Ramon Bates M.D. 09/13/2016 1:49 PM Dictated Date/Time: 09/13/2016 1:47 PM The status of this report is Signed. Draft = Not yet reviewed or approved by Radiologist. Signed = Reviewed and approved by Radiologist. <AttendingPhy></AttendingPhy> <FamilyPhy>Parveen Fishman M.D.</FamilyPhy> < PrimaryPhy>Parveen Fishman M.D.</PrimaryPhy> <UnitNumber>[id number]</UnitNumber > <VisitNumber>[id number]</VisitNumber> <PatientName>MILA RUVALCABA</ PatientName> <DateOfBirth>1960</DateOfBirth> <Location>[facility]</Location> < ServiceDate>09/13/16</ServiceDate> <MNE>ESINDI</MNE> <OrderingPhy>Venkat Coronel M.D.</OrderingPhy> <OrderingPhyMNE>f rep ord dr peña</OrderingPhyMNE> < DictatingPhyMNE>f rep dict dr peña</DictatingPhyMNE> <CCListMNE>f rep ct casey</ CCListMNE> <AdmittingPhyMNE>f pt admit dr peña</AdmittingPhyMNE> <AttendingPhyMNE >f pt attend dr peña</AttendingPhyMNE> <ConsultingPhyMNE>f pt consult dr peña</ConsultingPhyMNE> <FamilyPhyMNE>f pt fam dr peña</FamilyPhyMNE> <OtherPhyMNE>f pt other dr peña</OtherPhyMNE> < PrimaryPhyMNE>f pt prim care dr peña</PrimaryPhyMNE> <ReferringPhyMNE>f pt referring dr peña</ReferringPhyMNE> Impression Assessment and Plan Left third toe diabetic osteomyelitis--the patient will be admitted to the medical floor. She'll be placed on vancomycin IV for renal dosing, aztreonam 2000 mg IV every 8 hours, and clindamycin 900 mg IV every 8 hours. Of note, the patient is penicillin allergic. We will check lower extremity arterial Dopplers. We'll order a PICC line. The patient will likely need an amputation. Hold Bactrim DS by mouth. Diabetes mellitus--hold metformin 1000 mg by mouth twice a day. Place on Accu- Cheks before meals and at bedtime with NovoLog coverage. Paroxysmal Atrial fibrillation/hypertension--continue metoprolol tartrate 200 mg by mouth daily, lisinopril 5 mg by mouth daily, flecainide 100 mg by mouth twice a day. Hold HCTZ. Hold Xarelto. Start heparin drip standard dose without bolus for protocol. Hyperlipidemia--continue atorvastatin 40 mg by mouth daily. Asthma--hold Advair Diskus 250/50, and continue albuterol HFA 2 puffs every 4 hours when necessary. Vitamin B12 deficiency--continue cyanocobalamin 1000 g by mouth daily. Seasonal allergy--continue cetirizine 10 mg by mouth daily. Depression--continue Lexapro 10 mg by mouth at bedtime and Wellbutrin SR 150 mg by mouth daily. Level of Care Med/Surg Advanced Directives Existing Advance Directive: No Existing Living Will: No Existing Power of Senior User Experience Architect: No Resuscitation Status FULL RESUSCITATION VTE Prophylaxis VTE Risk Assessment Done? Y/N: Yes Risk Level: Moderate Given or contraindicated: Enoxaparin (Lovenox)SQ
[2016-09-13] MEDS: CALCIUM 600MG + VIT D 400 IU TAB PO SCH (20:58)
[2016-09-13] MEDS: ESCITALOPRAM OXALATE 10 MG TAB PO SCH (20:58)
[2016-09-13] MEDS: FLECAINIDE ACETATE 100 MG TAB PO SCH (20:58)
[2016-09-13] MEDS: ATORVASTATIN 40 MG TAB PO SCH ×2 (21:00→21:46)
[2016-09-13] MEDS: LISINOPRIL 5 MG TAB PO SCH ×2 (21:00→21:46)
[2016-09-13] MEDS ORDERED: MONTELUKAST SOD 10 MG TAB PO SCH (21:00)
[2016-09-13] MEDS: ZOLPIDEM TARTRATE 5 MG TAB PO PRN (21:06)
--- NOTE | 2016-09-13 22:23 | DIAGNOSTIC IMAGING REPORT ---
CHEST ONE VIEW PORTABLE CLINICAL HISTORY: Preoperative evaluation. COMPARISON STUDY: Chest radiograph March 19, 2015. FINDINGS: This exam is compromised by portable technique and suboptimal penetration related to body habitus. There is no pneumothorax or pleural effusion. No lobar consolidation is present. There is no evidence of pulmonary edema. Moderate enlargement of the cardiac silhouette has increased since prior exam. IMPRESSION: 1. Moderate enlargement of the cardiac silhouette which has increased since prior exam. This could be technical although interval increase in size of the heart or a pericardial effusion could appear similar. 2. No evidence of pulmonary edema. 3. No lobar consolidation. Electronically signed by: Jose Ramon Bates M.D. 09/13/2016 10:22 PM Dictated Date/Time: 09/13/2016 10:19 PM
[2016-09-13 23:38] VITALS: BP 113/79; PULSE 66; TEMP 36.5; O2SAT 93
[2016-09-14] VITALS (9 sets, daily range): BP systolic 118–136; BP diastolic 72–105; PULSE 109–123; TEMP 36.5–36.8; O2SAT 94–98
[2016-09-14] MEDS: VANCOMYCIN INJ 1,500 MG in SODIUM CHLORIDE 0.9% 500ML 500 ML IV SCH ×3 (00:50→20:36)
[2016-09-14] MEDS: CLINDAMYCIN IV 900 MG in DEXTROSE 5% ADD-VANTAGE 100ML 100 ML IV SCH ×3 (01:35→20:36)
[2016-09-14 06:57] LABS: BASO % 0.2 %; BASO ABS # 0.02 K/uL (0-0.2); COMPLETE YES; EOS % 2.5 %; HEMATOCRIT 34.2 % (37-47); IG% 0.2 %; LYMPH % 19.1 %; LYMPH ABS # 1.58 K/uL (1.2-3.4); MEAN CELL VOLUME 101.5 fL (80-100); MEAN CORPUSCULAR HEMOGLOBIN 32.9 pg (25-34); MEAN CORPUSCULAR HGB CONC 32.5 g/dl (32-36); MEAN PLATELET VOLUME 9.9 fL (7.4-10.4); MONO % 7.5 %; NEUT % 70.5 %; PLATELET COUNT 200 K/uL (130-400); RED BLOOD COUNT 3.37 M/uL (4.2-5.4); WHITE BLOOD COUNT 8.29 K/uL (4.8-10.8)
[2016-09-14 07:04] LABS: INR 1.2 (0.9-1.1); PARTIAL THROMBOPLASTIN RATIO 1.2; PROTHROMBIN TIME (PATIENT) 13.2 SECONDS (9.0-12.0)
[2016-09-14 07:32] LABS: BUN/CREATININE RATIO 19.6 (10-20); CALCIUM 8.7 mg/dl (8.5-10.1); CREATININE 0.57 mg/dl (0.60-1.20); MAGNESIUM 1.6 mg/dl (1.8-2.4); POTASSIUM 4.5 mmol/L (3.5-5.1)
--- NOTE | 2016-09-14 07:55 | DIAGNOSTIC IMAGING REPORT ---
ARTERIAL DOPPLER ULTRASOUND LOWER EXTREMITIES BILATERALLY CLINICAL HISTORY: Osteomyelitis the toe COMPARISON STUDY: No previous studies for comparison. FINDINGS: The right arm brachial systolic pressure was 1 42 mmHg. The right posterior tibial systolic pressure was 153 mmHg. The left posterior tibial systolic pressure was 1 55 mmHg. The right dorsalis pedis systolic pressure was 151 mmHg. The left dorsalis pedis systolic pressure was 157 mmHg. These measurements yield normal bilateral ankle brachial indices of 1.1. On the right, there is triphasic flow within the common femoral, superficial femoral, and operative arteries. There is biphasic flow within the posterior tibial. There is triphasic flow within the anterior tibial. There is monophasic flow with the peroneal. On the left there is triphasic flow within the left common femoral and sequential femoral arteries. There is biphasic flow within the left popliteal artery. There is monophasic flow within the left posterior tibial peroneal and anterior tibial arteries. No high velocity jets were visualized. There is a complex bilobed hypoechoic avascular structure adjacent to the left popliteal artery. This may represent a complex popliteal cyst. A thrombosed aneurysm is within differential but is felt to be statistically much less likely. IMPRESSION: 1. Monophasic flow below the left knee, but no high velocity jets visualized to indicate a focal stenosis. 2. Normal bilateral ankle brachial indices of 1.1. Electronically signed by: Ben Wang M.D. 09/14/2016 7:54 AM Dictated Date/Time: 09/14/2016 7:49 AM
[2016-09-14] MEDS: HEPARIN 25,000 UNIT/500ML D5W 500 ML IV PRN ×3 (08:04→22:37)
[2016-09-14] MEDS: CYANOCOBALAMIN 500 MCG TAB (VIT B-12) PO SCH (08:05)
[2016-09-14] MEDS: LACTOBACILLUS ACIDOPHILUS (FLORANEX) TAB PO SCH ×3 (08:05→17:11)
[2016-09-14] MEDS: MONTELUKAST SOD 10 MG TAB PO SCH (08:05)
[2016-09-14] MEDS: CHOLECALCIFEROL 1000 INTER.UNIT TAB PO SCH (08:05)
[2016-09-14] MEDS: BuPROPion SR 150 MG TABCR PO SCH (08:05)
[2016-09-14] MEDS: FLECAINIDE ACETATE 100 MG TAB PO SCH (08:06)
[2016-09-14] MEDS: CALCIUM 600MG + VIT D 400 IU TAB PO SCH ×2 (08:06→20:38)
[2016-09-14] MEDS: METOPROLOL SUCC 50MG EXT REL TAB PO SCH (08:06)
[2016-09-14] MEDS: CETIRIZINE HCL 10 MG TAB PO SCH (08:06)
[2016-09-14] MEDS: ACETAMINOPHEN 325 MG TAB PO PRN (08:09)
[2016-09-14] MEDS: INSULIN ASPART 100 UNITS/ML 3 ML PEN SC SCH ×4 (08:15→20:37)
[2016-09-14] MEDS: AZTREONAM IV 2,000 MG in DEXTROSE 5% 100ML 100 ML IV SCH ×5 (08:23→23:20)
[2016-09-14] MEDS ORDERED: ATORVASTATIN 40 MG TAB PO SCH (09:00)
[2016-09-14] MEDS ORDERED: LISINOPRIL 5 MG TAB PO SCH (09:00)
[2016-09-14] MEDS: LORAZEPAM 0.5 MG TAB PO PRN ×3 (09:19→17:16)
--- NOTE | 2016-09-14 09:34 | Hospitalist Progress Note ---
Hospitalist Progress Note Date of Service Sep 14, 2016. (Kena Fitzgerald PA-C) Subjective Pt evaluation today including: conversation w/ patient, physical exam, chart review, lab review, review of studies, review of inpatient medication list Patient seen and evaluated. Admitted overnight for L 3rd toe cellulitis. Has DM and previous R 5th toe amputation and chronic R leg infection on Bactrim. EKG this AM reveals AFib RVR. She reports she frequently flips into A Fib and has had [address] Martinez Was referred to Dr. Hernandez in [place] for maybe ablation? Patient isn't completely sure but appt. is October 01 Currently stable in RVR but reports she does get SOB with RVR. She is also anxious and upset due to fear of possible amputation. She crying at bedside. Only request is to update her sister and permission given. Will update sister this afternoon. According to the patient she is due to have her a R Leg TKA due to the infection but the A Fib has been a hold-up. She has since had her Metoprolol and Flecainide. She will be transferred to [facility] for further monitoring and for possible need of IV rate control medications. Constitutional: No fever, No chills ENT: No nasal symptoms, No sore throat Respiratory: + shortness of breath (intermittent (when in RVR)), No cough Cardiovascular: + palpitations, No chest pain Abdomen: No pain, No nausea, No vomiting, No diarrhea, No constipation Musculoskeletal: + swelling (L toes and forefoot), No calf pain Female : No dysuria Neurologic: + numbness/tingling (chronic neuropathy) Heme: No abnormal bleeding/bruising Skin: + new/changing skin lesions (erythema of R toe spreading up to dorsal aspect of foot) (Kena Fitzgerald, RIGOBERTOC) Medications Current Inpatient Medications Medications (Trade) Dose Ordered Sig/Flash Route Start Time Stop Time Status Last Admin Dose Admin Acetaminophen (Tylenol Tab) 650 mg Q4H PRN PO 09/13/16 14:30 10/13/16 14:29 09/14/16 08:09 650 MG Zolpidem Tartrate (Ambien Tab) 5 mg HSZ PRN PO 09/13/16 14:30 10/13/16 14:29 09/13/16 21:06 5 MG Bupropion HCl (Wellbutrin-Sr Tab) 150 mg DAILY PO 09/14/16 09:00 10/14/16 08:59 09/14/16 08:05 150 MG Cetirizine HCl (zyrTEC TAB) 10 mg DAILY PO 09/14/16 09:00 10/14/16 08:59 09/14/16 08:06 10 MG Cholecalciferol (Vitamin D Tab) 1,000 inter.unit DAILY PO 09/14/16 09:00 10/14/16 08:59 09/14/16 08:05 1,000 INTER.UNIT Cyanocobalamin (Vitamin B-12 Tab) 1,000 mcg DAILY PO 09/14/16 09:00 10/14/16 08:59 09/14/16 08:05 1,000 MCG Escitalopram Oxalate (Lexapro Tab) 10 mg HS PO 09/13/16 21:00 10/13/16 20:59 09/13/16 20:58 10 MG Flecainide Acetate (Tambocor Tab) 100 mg BID PO 09/13/16 21:00 10/13/16 20:59 09/14/16 08:06 100 MG Lorazepam (Ativan Tab) 0.5 mg QID PRN PO 09/13/16 14:30 10/13/16 14:29 09/13/16 16:56 0.5 MG Metoprolol Succinate (Toprol Xl Tab) 200 mg DAILY PO 09/14/16 09:00 10/14/16 08:59 09/14/16 08:06 200 MG Calcium/Vitamin D (Caltrate Plus Tab) 1 tab BID PO 09/13/16 21:00 10/13/16 20:59 09/14/16 08:06 1 TAB Vancomycin HCl 1500 mg/Sodium Chloride 530 ml @ 200 mls/hr Q8H IV 09/14/16 00:00 10/26/16 00:00 09/14/16 00:50 200 MLS/HR Aztreonam 2000 mg/ Dextrose 110 ml @ 100 mls/hr Q8@0000,0800,1600 IV 09/14/16 00:00 10/26/16 00:00 09/14/16 08:23 100 MLS/HR Clindamycin Phosphate 900 mg/ Dextrose 106 ml @ 100 mls/hr Q8@0200,1000,1800 IV 09/13/16 18:00 10/25/16 17:59 09/14/16 01:35 100 MLS/HR Lactobacillus Acidophilus (Floranex Tab) 4 tab TIDM PO 09/13/16 17:00 10/13/16 17:59 09/14/16 08:05 4 TAB Ondansetron HCl (Zofran Inj) 4 mg Q6H PRN IV 09/13/16 15:00 10/13/16 14:59 Insulin Aspart (novoLOG ASPART) SLIDING SCALE If C... ACHS SC 09/13/16 17:00 10/13/16 16:59 09/14/16 08:15 3 UNITS Glucose (Glucose 40% Gel) UD PRN PO 09/13/16 15:00 10/13/16 14:59 Glucose (Glucose Chew Tab) 1 tabs UD PRN PO 09/13/16 15:00 10/13/16 14:59 Dextrose (Dextrose 50% 50ML Syringe) 50 ml UD PRN IV 09/13/16 15:00 10/13/16 14:59 Glucagon (Glucagon Inj) 1 mg UD PRN SQ 09/13/16 15:00 10/13/16 14:59 Acetaminophen 100 ml @ 400 mls/hr Q8H PRN IV 09/13/16 15:00 10/13/16 14:59 Morphine Sulfate (MoRPHine SULFATE INJ) 2 mg Q2H PRN IV 09/13/16 15:00 09/27/16 14:59 Morphine Sulfate (MoRPHine SULFATE INJ) 4 mg Q2H PRN IV 09/13/16 15:00 09/27/16 14:59 Vancomycin HCl (Consult) 1 ea UD PRN N/A 09/13/16 15:00 10/13/16 14:59 Albuterol (Ventolin Hfa Inhaler) 2 puffs Q4H PRN INH 09/13/16 15:00 10/13/16 14:59 Atorvastatin Calcium (Lipitor Tab) 40 mg QPM PO 09/13/16 21:00 10/13/16 20:59 09/13/16 21:46 40 MG Lisinopril (Zestril Tab) 5 mg QPM PO 09/13/16 21:00 10/13/16 20:59 09/13/16 21:46 5 MG Montelukast Sodium (Singulair Tab) 10 mg DAILY PO 09/14/16 09:00 10/13/16 20:59 09/14/16 08:05 10 MG Heparin Sodium/ Dextrose 500 ml @ 28 mls/hr [id number] PRN IV 09/14/16 08:00 10/14/16 07:59 09/14/16 08:04 28 MLS/HR Magnesium Sulfate 1 gm/Prmx 100 ml @ 100 mls/hr Q1H IV 09/14/16 09:30 09/14/16 11:29 (Kena Fitzgerald PA-C) Objective Vital Signs Date Time Temp Pulse Resp B/P (MAP) Pulse Ox O2 Delivery O2 Flow Rate FiO2 09/14/16 07:20 36.7 121 20 136/105 (115) 96 09/13/16 23:38 36.5 66 20 113/79 (90) 93 Room Air 09/13/16 16:30 36.9 98 18 125/95 (105) 95 Room Air 09/13/16 16:00 Room Air 09/13/16 15:36 107 22 159/98 96 09/13/16 14:30 94 Room Air 09/13/16 13:30 114 21 150/122 94 Room Air 09/13/16 11:54 36.7 118 20 149/83 96 Room Air (Kena Fitzgerald PA-C) Physical Exam General Appearance: WD/WN, + mild distress (emotional), + obese Eyes: sclerae normal ENT: hearing grossly normal Neck: supple, trachea midline Respiratory/Chest: lungs clear (limited due to body habitus), normal breath sounds, no respiratory distress, no accessory muscle use Cardiovascular: no gallop, no murmur, + irregularly irregular, + pertinent finding (distant sound due to body habitus) Abdomen: normal bowel sounds, non tender, soft Extremities: no calf tenderness, + pertinent finding (L toes with erythema spreading to dorsal of foot; edema of toes and foot; cap refill adequate; mildly warm to touch) Neurologic/Psychiatric: alert, oriented x 3 (Kena Fitzgerald PA-C) Laboratory Results Last 24 Hours Test 09/13/16 12:44 09/13/16 12:48 09/13/16 12:57 09/13/16 14:26 Bedside Glucose 106 mg/dl 99 mg/dl White Blood Count 10.11 K/uL Red Blood Count 3.60 M/uL Hemoglobin 11.7 g/dL Hematocrit 36.3 % Mean Corpuscular Volume 100.8 fL Mean Corpuscular Hemoglobin 32.5 pg Mean Corpuscular Hemoglobin Concent 32.2 g/dl Platelet Count 231 K/uL Mean Platelet Volume 10.3 fL Neutrophils (%) (Auto) 77.7 % Lymphocytes (%) (Auto) 13.6 % Monocytes (%) (Auto) 7.3 % Eosinophils (%) (Auto) 1.0 % Basophils (%) (Auto) 0.2 % Neutrophils # (Auto) 7.85 K/uL Lymphocytes # (Auto) 1.38 K/uL Monocytes # (Auto) 0.74 K/uL Eosinophils # (Auto) 0.10 K/uL Basophils # (Auto) 0.02 K/uL RDW Standard Deviation 52.8 fL RDW Coefficient of Variation 14.3 % Immature Granulocyte % (Auto) 0.2 % Immature Granulocyte # (Auto) 0.02 K/uL Erythrocyte Sedimentation Rate 55 mm/hr Sodium Level 136 mmol/L Potassium Level mmol/L Chloride Level 98 mmol/L Carbon Dioxide Level 26 mmol/L Anion Gap 12.0 mmol/L Blood Urea Nitrogen 11 mg/dl Creatinine 0.65 mg/dl Est Creatinine Clear Calc Drug Dose 124.1 ml/min Estimated GFR () 116.7 Estimated GFR (Non- 100.7 BUN/Creatinine Ratio 16.4 Random Glucose 99 mg/dl Calcium Level 9.0 mg/dl C-Reactive Protein 5.59 mg/dl Bedside Lactic Acid Venous 2.55 mmol/L Test 09/13/16 14:41 09/13/16 15:55 09/13/16 16:15 09/13/16 19:49 Total Bilirubin 0.6 mg/dl Direct Bilirubin 0.2 mg/dl Aspartate Amino Transf (AST/SGOT) 14 U/L Alanine Aminotransferase (ALT/SGPT) 16 U/L Alkaline Phosphatase 129 U/L Total Protein 7.3 gm/dl Albumin 3.5 gm/dl Hepatitis C Antibody Screen NEG Lactic Acid Level 1.5 mmol/L Bedside Glucose 106 mg/dl 93 mg/dl Test 09/14/16 06:49 09/14/16 07:22 09/14/16 08:26 09/14/16 08:52 White Blood Count 8.29 K/uL Red Blood Count 3.37 M/uL Hemoglobin 11.1 g/dL Hematocrit 34.2 % Mean Corpuscular Volume 101.5 fL Mean Corpuscular Hemoglobin 32.9 pg Mean Corpuscular Hemoglobin Concent 32.5 g/dl Platelet Count 200 K/uL Mean Platelet Volume 9.9 fL Neutrophils (%) (Auto) 70.5 % Lymphocytes (%) (Auto) 19.1 % Monocytes (%) (Auto) 7.5 % Eosinophils (%) (Auto) 2.5 % Basophils (%) (Auto) 0.2 % Neutrophils # (Auto) 5.84 K/uL Lymphocytes # (Auto) 1.58 K/uL Monocytes # (Auto) 0.62 K/uL Eosinophils # (Auto) 0.21 K/uL Basophils # (Auto) 0.02 K/uL RDW Standard Deviation 53.3 fL RDW Coefficient of Variation 14.4 % Immature Granulocyte % (Auto) 0.2 % Immature Granulocyte # (Auto) 0.02 K/uL Prothrombin Time 13.2 SECONDS Prothromb Time International Ratio 1.2 Activated Partial Thromboplast Time 30.1 SECONDS Partial Thromboplastin Ratio 1.2 Sodium Level 133 mmol/L Potassium Level 4.5 mmol/L Chloride Level 96 mmol/L Carbon Dioxide Level 27 mmol/L Anion Gap 10.0 mmol/L Blood Urea Nitrogen 11 mg/dl Creatinine 0.57 mg/dl Est Creatinine Clear Calc Drug Dose 141.5 ml/min Estimated GFR () 121.8 Estimated GFR (Non- 105.1 BUN/Creatinine Ratio 19.6 Random Glucose 107 mg/dl Calcium Level 8.7 mg/dl Magnesium Level 1.6 mg/dl Bedside Glucose 110 mg/dl Transferrin % Saturation % (Kena Fitzgerald, BRANDEE) Assessment and Plan Ms. Agrawal is a 56 y/o female with PMHx of T2DM, Paroxysmal A Fib S/P Cardioversion x 2, HTN, HLD, B12 Deficiency, and Chronic R Leg Infection on Bactrim who is admitted for L 3rd toe osteomyelitis L 3rd Toe Osteomyelitis Complicated by T2DM: - Aztreonam 2 g IV Q8H, Clindamycin 900 mg IV Q8H, and Vancomycin per pharmacy dosing - Consult ID - antibiotic recommendations - PICC line consented and on chart - Consult orthopedics - surgical intervention? - Wound following - appreciate input and dressing/cleaning recommendations Atrial Fibrillation with RVR: - Transfer to telemetry - Flecainide 100 mg BID and Metoprolol Succ 200 mg daily - Hold Xarelto in anticipation of possible amputation - converted to Heparin gtt - Consult cardiology - follows with Dr. Martinez - reports that surgical interventions held up due to A Fib - has had multiple cardioversions in past -- Was referred to Dr. Hernandez in [place] - patient's description is possible for ablation referral? HTN: - Hold HCTZ - Lisinopril 5 mg daily T2DM: - Hold Metformin and use SSI Macrocytic Anemia - B12 Deficiency: - B12 1000 mcg daily HLD: - Atorvastatin 40 mg daily Depression/Anxiety: - Wellbutrin 150 mg daily and Lexapro 10 mg daily DVT Prophylaxis: Heparin gtt Code Status: FULL RESUSCITATION Disposition: - Possible surgical intervention and likely need for PICC line placement - will await ID recommendations (consent is obtained) Continued [facility] stay due to: multiple IV medications needed Discharge planning: uncertain (Kena Fitzgerald, BRANDEE) Reviewed: Pt Seen/Exam by Me (Nicky Vaughn MD) History Physician Subcontract Manager Supervision Note: I interviewed and examined the patient. Discussed with BALTAZAR Fitzgerald and agree with findings and plan as documented in the note. Any exceptions or clarifications are listed here: Pt was unable to complete her foot MRI due to severe anxiety. Requesting higher dose ativan to try again tomorrow. Remains in rapid a-fib, Cardiology stopped flecainide and started po dilt. Discussed case with ID and Cardiology Vitals and tele [id number] in the 110s Morbidly obese, tearful, anxious, AAOx3 irreg irreg and tachy, no murmur CTAB, breathing unlabored Abd +BS sof Rodger ND Ext: left 3rd toe with with large amount erythema, edema, excessive granulation tissue , purulent drainage 56 yo female with DMII, GATO, DMII, DM peripheral neuropathy, morbid obesity, here with left 3rd toe OM. -appreciate Ortho management -control glucose, SSI, glucose checks -continue IV abx as d/w ID -stop flecainide, started po dilt for rate control strategy as opposed to rhythm control which wasn't working-appreciate Cardio recommendations -continue heparin gtt -increase po ativan for MRI tomorrow for anxiety Documented By: Nicky Vaughn (Nicky Vaughn MD)
[2016-09-14 09:38] LABS: FERRITIN 81.1 ng/ml (8.0-388.0); THYROID STIMULATING HORMONE 2.7 uIu/ml (0.300-4.500)
[2016-09-14] MEDS: MAGNESIUM SULFATE 1GM / D5W 1 GM in PREMIXED IN D5W 100 ML IV SCH ×2 (10:30→12:22)
--- NOTE | 2016-09-14 11:38 | ORTHOPEDIC CONSULTATION ---
DATE OF CONSULTATION: 09/14/2016 HISTORY OF PRESENT ILLNESS: The patient is a 56-year-old female with diabetes. She has a history of a previous right fifth toe amputation by Dr. Morataya for osteomyelitis infection. She had an infection of her right knee replacement that was performed and debrided several times, but has some bone infection in the tibia and has some chronic drainage. Now develops an infection in her left third toe, which has not resolved with conservative management. She has recent x-rays demonstrating the bones eroded on radiographs consistent with osteomyelitis of the third toe. She is also getting the beginning of a similar wound on her right toe. She has had vascular studies demonstrating her ankle brachial indices normal. PAST SURGICAL AND MEDICAL HISTORY: Other past surgical, medical issues are abscess, cellulitis, anxiety, asthma, depression, diabetes, hypercholesterolemia, hypertension, osteomyelitis, AFib. FAMILY HISTORY: Diabetes, cancer, heart disease, hypertension, kidney disease, kidney stones. SOCIAL HISTORY: Nonsmoker. She is single. ALLERGIES: PENICILLIN. MEDICATIONS: Multiple. These were reviewed as per HPI. She is on antibiotics at this time including vancomycin, aztreonam. She is also on clindamycin. PHYSICAL EXAMINATION: EXTREMITIES: Demonstrates that her right knee was not in painful range of motion. Does not have a knee effusion. There is no increased warmth. She does have a chronic draining wound around the tibial tubercle area. She has right third toe pressure sore on the tip of this toe that has some mild erythema around it. No major drainage, just some subtle drainage there. The left toes has gross drainage, erythema extending into the forefoot. ASSESSMENT: Cellulitis, left foot; osteomyelitis, distal phalanx. PLAN: Continue IV antibiotics to help control some of the cellulitis and then proceed with amputation of her toe. I will get Dr. Contreras involved in the case as our foot and ankle specialist. We are going to order an MRI of the foot. She had an x-ray of her other foot to assess the toe on the opposite foot to see if there is any bony involvement of that toe at this point in time. MIGUEL
--- NOTE | 2016-09-14 14:18 | DIAGNOSTIC IMAGING REPORT ---
RIGHT FOOT MIN 3 VIEWS ROUTINE CLINICAL HISTORY: Wound. Possible osteomyelitis. COMPARISON: None. DISCUSSION: There are postsurgical changes of an amputation at the level of the fifth metatarsal phalangeal joint. There are no acute fractures. There is no conventional radiographic evidence of acute osteomyelitis. There are soft tissue calcifications present within the lower calf. There are vascular calcifications present. There is a plantar calcaneal spur. There is a hallux valgus deformity. Degenerative changes are present the level the first metatarsal phalangeal joint. IMPRESSION: Postsurgical change. No conventional radiographic evidence of acute osteomyelitis. Electronically signed by: Ben Wang M.D. 09/14/2016 2:17 PM Dictated Date/Time: 09/14/2016 2:15 PM
[2016-09-14 14:45] LABS: PARTIAL THROMBOPLASTIN RATIO 1.2
[2016-09-14] MEDS: DILTIAZEM HCL 30 MG TAB PO SCH ×2 (15:13→21:28)
[2016-09-14] MEDS ORDERED: HEPARIN IV BOLUS 6,000 UNIT in SYRINGE 0 ML IV ONE (15:45)
--- NOTE | 2016-09-14 16:54 | CARDIOLOGY CONSULTATION ---
DATE OF CONSULTATION: 09/14/2016 REFERRING PHYSICIAN: Dr. Nicky Vaughn. CHIEF COMPLAINT: Atrial fibrillation. HISTORY OF PRESENT ILLNESS: Ms. Chely Agrawal is a 56-year-old woman with a history of paroxysmal atrial fibrillation. The patient appears to have originally been diagnosed in 2014 when she presented with dysrhythmia. She was initially anticoagulated and started on rate control strategy which eventually progressed to rhythm control with flecainide. The patient had a brief holiday from anticoagulation due to some bleeding after a toe amputation. She resumed Xarelto subsequently. The patient is admitted to [facility] for treatment of one of her left toes. She appears to have developed an osteomyelitis, which will require surgical intervention and at least partial amputation. The patient did notice increasing edema at that site associated with some mild pain. She does not appear to have had additional constitutional symptoms such as fevers or chills. In general, she is a very sedentary individual who is limited by both neuropathy and orthopedic disease such as arthritis in her knees. She does report some mild dyspnea with exertion, likely related to her sedentary lifestyle. She tends to ambulate with minimal difficulty but does not perform significant physical exertion such as exercise. She enjoys swimming and generally engages in that type of activity, but recently has not been performing any swimming due to drainage from her right knee and her toe infection. The patient states that occasionally she is aware of some chest palpitations, this tends to be more noticeable when she is lying flat in bed at night. She will also notice this at times of stress or increased activity. She does not appear to have associated chest discomfort. She has no symptoms of dizziness or lightheadedness. She has not recently suffered a syncopal episode. She claims to be compliant with her medical therapy. PAST MEDICAL HISTORY: Significant for 1. Atrial fibrillation. 2. Asthma. 3. Anxiety. 4. Diabetes mellitus. 5. Depression. 6. Hypercholesterolemia. 7. Hypertension. 8. Hypothyroidism. 9. Osteoarthritis. 10. Obesity. PAST SURGICAL HISTORY: Significant for right total knee arthroplasty as well as debridement and a prior toe amputation on the right foot. OUTPATIENT MEDICATIONS: Include Advair, atorvastatin, Lexapro, flecainide, lisinopril, metformin, metoprolol and Xarelto. MEDICAL ALLERGIES: INCLUDE PENICILLIN. SOCIAL HISTORY: The patient has a remote history of tobacco abuse, not currently smoking. She denies significant alcohol use currently. FAMILY HISTORY: Significant for breast cancer as well as diabetes. REVIEW OF SYSTEMS: A complete review of systems was performed, the pertinent positives noted in the history of present illness, the remainder being negative. The patient does sleep in a slightly upright position due to orthopedic concerns as well for better breathing. She is concerned that she has sleep apnea, but has never been formally tested. PHYSICAL EXAMINATION: GENERAL: The patient does not appear in acute distress. She is a pleasant individual who is alert and oriented. Mood and affect appeared normal. She answered all questions appropriately. NEUROLOGIC: Revealed the cranial nerves to be intact. EYES: Her extraocular movements were intact. Pupils were equal and reactive to light and accommodation. Sclerae are anicteric. Palpation of submandibular region did not reveal any significant lymphadenopathy. NECK: The carotids are palpable bilaterally. I do not appreciate any bruits on auscultation. There is no evidence of jugular venous distention. Thyroid is not enlarged. LUNGS: Auscultation of lung duvall revealed somewhat reduced breath sounds overall, but there were no rales, wheezes or rhonchi. She had normal respiratory effort without use of accessory muscles. CARDIAC: Revealed her to be in an irregularly irregular rhythm, but I do not appreciate any murmurs on exam. The PMI did not appear to be markedly displaced on palpation. ABDOMEN: Soft and nontender. EXTREMITIES: Evaluation of both wrists revealed radial pulses are equal in intensity. There is no evidence of cyanosis or clubbing. Evaluation of her lower extremities did not reveal any evidence of peripheral edema. She did have some mild erythema of the left foot and some swelling of the toes. The left second digit on the foot was bandaged. On the right leg she had a bandage just below the knee cap, there were some atrophic changes involving the right lower extremity. I did not appreciate any other rashes on exam. LABORATORY STUDIES: Obtained at [facility] include a white cell count of 8.2, hemoglobin of 11.1, a platelet count of 200. Sodium is 133, potassium is 4.5, BUN was 11, creatinine was 0.57. TSH was within the normal range. A 12-lead EKG was obtained at the time of admission which revealed the patient to be in atrial fibrillation with a rapid ventricular response. Imaging studies were obtained including a chest x-ray which revealed some evidence of cardiomegaly. There was no evidence of pulmonary vascular congestion. ASSESSMENT AND PLAN: 1. Atrial fibrillation. The patient has a history of paroxysmal atrial fibrillation, but this is likely more persistent or even permanent atrial fibrillation. The patient has undergone 2 cardioversions in the past without prolonged duration of sinus rhythm. I do not feel that she is likely very symptomatic from the arrhythmia given her relatively sedentary state. While she claims to cycle back and forth, I think she is likely in atrial fibrillation almost all of the time. As a result, her rhythm control strategy of flecainide is not likely to be successful. At this point, I would suggest discontinuation of the flecainide and adoption of a rate control strategy. This could be accomplished with the addition of diltiazem to her current dose of metoprolol. Interestingly, the patient is scheduled to have a consultation regarding a pulmonary vein isolation at [facility] later in the month. She can certainly keep this point and discuss it with the specialists at that facility. Her Xarelto has currently been stopped in order to facilitate her toe amputation anticipated in a few days. Bridging with heparin seems un-necessary; however, in the immediate postoperative period this could be safely withheld should there be some concerns regarding bleeding. Reinstitution of oral Xarelto could then be performed at the surgeon's indiscretion. MIGUEL
[2016-09-14] MEDS: ESCITALOPRAM OXALATE 10 MG TAB PO SCH (20:36)
[2016-09-14] MEDS: ATORVASTATIN 40 MG TAB PO SCH (20:38)
[2016-09-14] MEDS: LISINOPRIL 5 MG TAB PO SCH (20:39)
--- NOTE | 2016-09-14 21:11 | Medical Consult ---
Consultation Date of Consultation: Sep 14, 2016. Attending Physician: Nicky Vaughn MD Reason for Consultation: Toe osteomyelitis History of Present Illness . 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 She ultimately developed progressively worsening redness and swelling of the toe and foot. X-ray of the foot, read by me, shows evidence of osteomyelitis of the 3rd toe. She has been started empirically on IV vancomycin, aztreonam, and clindamycin. No report of fever. Denies any pain because of neuropathy. Patient has history of prior right 5th toe amputation for osteomyelitis Past Medical/Surgical History Medical Problems: (1) Sepsis Status: Acute (2) Toe osteomyelitis, left Status: Acute Medical Problems: (1) Abscess or cellulitis of foot (2) Anxiety (3) Asthma (4) cellulitis (5) Cellulitis of third toe, left (6) Cellulitis of third toe, left (7) Depression (8) Diabetes (9) Diabetic foot infection (10) Hypercholesteremia (11) Hypertension (12) Osteomyelitis (13) Paroxysmal a-fib Surgical Problems: (1) History of knee replacement procedure of right knee (2) Post-operative state Family History Diabetes mellitus FHx: cancer FHx: heart disease Hypertension Kidney disease Kidney stones Social History Smoking Status: Never Smoker Smokeless Tobacco Use: No Alcohol Use: none Drug Use: none Marital Status: single Housing Status: lives with family Occupation Status: employed Allergies Coded Allergies: Penicillins (Verified Allergy, Unknown, UNKNOWN, 03/19/15) Current Inpatient Medications Current Inpatient Medications Medications (Trade) Dose Ordered Sig/Flash Route Start Time Stop Time Status Last Admin Dose Admin Acetaminophen (Tylenol Tab) 650 mg Q4H PRN PO 09/13/16 14:30 10/13/16 14:29 09/14/16 08:09 650 MG Zolpidem Tartrate (Ambien Tab) 5 mg HSZ PRN PO 09/13/16 14:30 10/13/16 14:29 09/13/16 21:06 5 MG Bupropion HCl (Wellbutrin-Sr Tab) 150 mg DAILY PO 09/14/16 09:00 10/14/16 08:59 09/14/16 08:05 150 MG Cetirizine HCl (zyrTEC TAB) 10 mg DAILY PO 09/14/16 09:00 10/14/16 08:59 09/14/16 08:06 10 MG Cholecalciferol (Vitamin D Tab) 1,000 inter.unit DAILY PO 09/14/16 09:00 10/14/16 08:59 09/14/16 08:05 1,000 INTER.UNIT Cyanocobalamin (Vitamin B-12 Tab) 1,000 mcg DAILY PO 09/14/16 09:00 10/14/16 08:59 09/14/16 08:05 1,000 MCG Escitalopram Oxalate (Lexapro Tab) 10 mg HS PO 09/13/16 21:00 10/13/16 20:59 09/14/16 20:36 10 MG Lorazepam (Ativan Tab) 0.5 mg QID PRN PO 09/13/16 14:30 10/13/16 14:29 09/14/16 17:16 0.5 MG Metoprolol Succinate (Toprol Xl Tab) 200 mg DAILY PO 09/14/16 09:00 10/14/16 08:59 09/14/16 08:06 200 MG Calcium/Vitamin D (Caltrate Plus Tab) 1 tab BID PO 09/13/16 21:00 10/13/16 20:59 09/14/16 20:38 1 TAB Vancomycin HCl 1500 mg/Sodium Chloride 530 ml @ 200 mls/hr Q8H IV 09/14/16 00:00 10/26/16 00:00 09/14/16 20:36 200 MLS/HR Aztreonam 2000 mg/ Dextrose 110 ml @ 100 mls/hr Q8@0000,0800,1600 IV 09/14/16 00:00 10/26/16 00:00 09/14/16 16:00 100 MLS/HR Clindamycin Phosphate 900 mg/ Dextrose 106 ml @ 100 mls/hr Q8@0200,1000,1800 IV 09/13/16 18:00 10/25/16 17:59 09/14/16 20:36 100 MLS/HR Lactobacillus Acidophilus (Floranex Tab) 4 tab TIDM PO 09/13/16 17:00 10/13/16 17:59 09/14/16 17:11 4 TAB Ondansetron HCl (Zofran Inj) 4 mg Q6H PRN IV 09/13/16 15:00 10/13/16 14:59 Insulin Aspart (novoLOG ASPART) SLIDING SCALE If C... ACHS SC 09/13/16 17:00 10/13/16 16:59 09/14/16 16:15 4 UNITS Glucose (Glucose 40% Gel) UD PRN PO 09/13/16 15:00 10/13/16 14:59 Glucose (Glucose Chew Tab) 1 tabs UD PRN PO 09/13/16 15:00 10/13/16 14:59 Dextrose (Dextrose 50% 50ML Syringe) 50 ml UD PRN IV 09/13/16 15:00 10/13/16 14:59 Glucagon (Glucagon Inj) 1 mg UD PRN SQ 09/13/16 15:00 10/13/16 14:59 Acetaminophen 100 ml @ 400 mls/hr Q8H PRN IV 09/13/16 15:00 10/13/16 14:59 Morphine Sulfate (MoRPHine SULFATE INJ) 2 mg Q2H PRN IV 09/13/16 15:00 09/27/16 14:59 Morphine Sulfate (MoRPHine SULFATE INJ) 4 mg Q2H PRN IV 09/13/16 15:00 09/27/16 14:59 Vancomycin HCl (Consult) 1 ea UD PRN N/A 09/13/16 15:00 10/13/16 14:59 Albuterol (Ventolin Hfa Inhaler) 2 puffs Q4H PRN INH 09/13/16 15:00 10/13/16 14:59 Montelukast Sodium (Singulair Tab) 10 mg DAILY PO 09/14/16 09:00 10/13/16 20:59 09/14/16 08:05 10 MG Heparin Sodium/ Dextrose 500 ml @ 34 mls/hr [id number] PRN IV 09/14/16 08:00 10/14/16 07:59 09/14/16 15:34 34 MLS/HR Atorvastatin Calcium (Lipitor Tab) 40 mg QPM PO 09/14/16 21:00 10/14/16 20:59 09/14/16 20:38 40 MG Lisinopril (Zestril Tab) 5 mg QPM PO 09/14/16 21:00 10/14/16 20:59 09/14/16 20:39 5 MG Diltiazem HCl (Cardizem Tab) 30 mg TID PO 09/14/16 15:00 10/14/16 14:59 09/14/16 15:13 30 MG Review of Systems Constitutional: No fever Eyes: No problem reported ENT: No problem reported Respiratory: + shortness of breath Cardiovascular: + palpitations Abdomen: No problem reported Musculoskeletal: + joint pain Genitourinary - Female: No problem reported Neurologic: + numbness/tingling Psychiatric: No problem reported Endocrine: No problem reported Hematologic / Lymphatic: No problem reported Integumentary: + new/changing skin lesions Allergic / Immunologic: No problem reported Physical Exam Date Time Temp Pulse Resp B/P (MAP) Pulse Ox O2 Delivery O2 Flow Rate FiO2 09/14/16 19:26 36.7 109 18 118/72 (87) 98 09/14/16 16:08 36.8 120 18 120/81 (94) 96 09/14/16 12:57 96 Room Air 09/14/16 11:43 36.7 117 18 136/99 (111) 94 Room Air 09/14/16 09:41 36.7 121 20 96 09/14/16 09:40 36.7 123 20 136/98 (111) 96 Room Air 09/14/16 08:00 96 Room Air 09/14/16 07:20 36.7 121 20 136/105 (115) 96 09/13/16 23:38 36.5 66 20 113/79 (90) 93 Room Air General Appearance: WD/WN, no apparent distress, + obese Head: normocephalic, atraumatic Eyes: normal inspection, EOMI, sclerae normal ENT: normal ENT inspection, pharynx normal Neck: supple, no adenopathy, thyroid normal, trachea midline Respiratory/Chest: chest non-tender, lungs clear, normal breath sounds, no respiratory distress Cardiovascular: regular rate, rhythm, no gallop, no murmur Abdomen/GI: normal bowel sounds, non tender, soft, no organomegaly Back: normal inspection, no CVA tenderness Extremities/Musculoskelatal: no calf tenderness, normal capillary refill Neurologic/Psych: alert, oriented x 3, + sensory deficit Skin: normal color, no rash, + pertinent finding (Open wound and a right knee, left 3rd toe and dorsum of foot with erythema) Lymphatic: no adenopathy Laboratory Results Last 24 Hours Test 09/14/16 06:49 09/14/16 07:22 09/14/16 08:52 09/14/16 11:37 White Blood Count 8.29 K/uL Red Blood Count 3.37 M/uL Hemoglobin 11.1 g/dL Hematocrit 34.2 % Mean Corpuscular Volume 101.5 fL Mean Corpuscular Hemoglobin 32.9 pg Mean Corpuscular Hemoglobin Concent 32.5 g/dl Platelet Count 200 K/uL Mean Platelet Volume 9.9 fL Neutrophils (%) (Auto) 70.5 % Lymphocytes (%) (Auto) 19.1 % Monocytes (%) (Auto) 7.5 % Eosinophils (%) (Auto) 2.5 % Basophils (%) (Auto) 0.2 % Neutrophils # (Auto) 5.84 K/uL Lymphocytes # (Auto) 1.58 K/uL Monocytes # (Auto) 0.62 K/uL Eosinophils # (Auto) 0.21 K/uL Basophils # (Auto) 0.02 K/uL RDW Standard Deviation 53.3 fL RDW Coefficient of Variation 14.4 % Immature Granulocyte % (Auto) 0.2 % Immature Granulocyte # (Auto) 0.02 K/uL Prothrombin Time 13.2 SECONDS Prothromb Time International Ratio 1.2 Activated Partial Thromboplast Time 30.1 SECONDS Partial Thromboplastin Ratio 1.2 Sodium Level 133 mmol/L Potassium Level 4.5 mmol/L Chloride Level 96 mmol/L Carbon Dioxide Level 27 mmol/L Anion Gap 10.0 mmol/L Blood Urea Nitrogen 11 mg/dl Creatinine 0.57 mg/dl Est Creatinine Clear Calc Drug Dose 141.5 ml/min Estimated GFR () 121.8 Estimated GFR (Non- 105.1 BUN/Creatinine Ratio 19.6 Random Glucose 107 mg/dl Calcium Level 8.7 mg/dl Magnesium Level 1.6 mg/dl Bedside Glucose 110 mg/dl 102 mg/dl Iron Level 42 mcg/dl Total Iron Binding Capacity 348 mcg/dl Transferrin 259 mg/dl Transferrin % Saturation 12 % Ferritin 81.1 ng/ml Vitamin B12 Level 689 pg/mL Folate 13.56 ng/mL Thyroid Stimulating Hormone (TSH) 2.700 uIu/ml Test 09/14/16 14:14 09/14/16 16:18 09/14/16 20:17 Activated Partial Thromboplast Time 30.3 SECONDS Partial Thromboplastin Ratio 1.2 Bedside Glucose 125 mg/dl 119 mg/dl Assessment & Plan Osteomyelitis of toe, chronic infection of right TKA. As discussed, patient to be continued on current Abx pending further culture results. Discussed with hospitalist. Will follow..
[2016-09-14 22:02] LABS: PARTIAL THROMBOPLASTIN RATIO 1.6
[2016-09-14] MEDS ORDERED: HEPARIN IV BOLUS 3,000 UNIT in SYRINGE 0 ML IV ONE (22:30)
[2016-09-14] MEDS: ZOLPIDEM TARTRATE 5 MG TAB PO PRN (23:22)
[2016-09-15] VITALS (9 sets, daily range): BP systolic 108–148; BP diastolic 71–105; PULSE 74–126; TEMP 36.3–36.7; O2SAT 92–95
[2016-09-15] MEDS: CLINDAMYCIN IV 900 MG in DEXTROSE 5% ADD-VANTAGE 100ML 100 ML IV SCH ×3 (03:17→18:26)
[2016-09-15] MEDS: VANCOMYCIN INJ 1,500 MG in SODIUM CHLORIDE 0.9% 500ML 500 ML IV SCH ×3 (03:18→19:45)
[2016-09-15 04:30] LABS: BASO % 0.5 %; BASO ABS # 0.04 K/uL (0-0.2); COMPLETE YES; EOS % 3.1 %; IG% 0.3 %; LYMPH % 20.2 %; MEAN CELL VOLUME 98.8 fL (80-100); MEAN CORPUSCULAR HGB CONC 33.4 g/dl (32-36); MEAN PLATELET VOLUME 9.5 fL (7.4-10.4); MONO % 6.9 %; PLATELET COUNT 197 K/uL (130-400); RED BLOOD COUNT 3.24 M/uL (4.2-5.4); WHITE BLOOD COUNT 7.94 K/uL (4.8-10.8)
[2016-09-15 04:40] LABS: INR 1.1 (0.9-1.1); PARTIAL THROMBOPLASTIN RATIO 1.6; PROTHROMBIN TIME (PATIENT) 11.9 SECONDS (9.0-12.0)
[2016-09-15 04:52] LABS: BUN/CREATININE RATIO 16.6 (10-20); CALCIUM 8.3 mg/dl (8.5-10.1); CREATININE 0.53 mg/dl (0.60-1.20); MAGNESIUM 1.7 mg/dl (1.8-2.4); POTASSIUM 4.3 mmol/L (3.5-5.1)
[2016-09-15] MEDS ORDERED: HEPARIN IV BOLUS 3,000 UNIT in SYRINGE 0 ML IV ONE ×2 (05:15→13:00)
[2016-09-15] MEDS: HEPARIN 25,000 UNIT/500ML D5W 500 ML IV PRN ×3 (05:32→20:12)
[2016-09-15 07:07] LABS: ESTIMATED AVERAGE GLUCOSE 128 mg/dl; HA1C FLAG Normal (Normal)
[2016-09-15] MEDS ORDERED: VANCOMYCIN TROUGH SCH ×2 (07:30→11:30)
[2016-09-15] MEDS: AZTREONAM IV 2,000 MG in DEXTROSE 5% 100ML 100 ML IV SCH ×3 (07:34→23:42)
[2016-09-15] MEDS ORDERED: MAGNESIUM SULFATE 1GM / D5W 1 GM in PREMIXED IN D5W 100 ML IV ONE (08:00)
[2016-09-15] MEDS: MONTELUKAST SOD 10 MG TAB PO SCH (08:11)
[2016-09-15] MEDS: CALCIUM 600MG + VIT D 400 IU TAB PO SCH ×2 (08:12→21:39)
[2016-09-15] MEDS: DILTIAZEM HCL 30 MG TAB PO SCH ×3 (08:12→20:50)
[2016-09-15] MEDS: CETIRIZINE HCL 10 MG TAB PO SCH (08:12)
[2016-09-15] MEDS: CHOLECALCIFEROL 1000 INTER.UNIT TAB PO SCH (08:13)
[2016-09-15] MEDS: LACTOBACILLUS ACIDOPHILUS (FLORANEX) TAB PO SCH ×3 (08:13→16:12)
[2016-09-15] MEDS: METOPROLOL SUCC 50MG EXT REL TAB PO SCH (08:13)
[2016-09-15] MEDS: CYANOCOBALAMIN 500 MCG TAB (VIT B-12) PO SCH (08:14)
[2016-09-15] MEDS: BuPROPion SR 150 MG TABCR PO SCH (08:14)
[2016-09-15] MEDS: INSULIN ASPART 100 UNITS/ML 3 ML PEN SC SCH ×4 (08:20→20:52)
--- NOTE | 2016-09-15 09:02 | Cardiology Follow-Up ---
Subjective Subjective Date of Service: Sep 15, 2016. Pt evaluation today including: conversation w/ patient, physical exam, chart review, lab review, review of inpatient medication list Additional Details: No chest pain, shortness of breath. Toe pain reasonably controlled. Tele reviewed -- remains in afib with HR in the 120-130s Problem List Medical Problems: (1) Sepsis Status: Acute (2) Toe osteomyelitis, left Status: Acute Review of Systems Constitutional: No fever, No chills ENT: No nasal symptoms, No sore throat Respiratory: No cough, No shortness of breath Cardiac: + palpitations, No chest pain Abdomen: No pain, No nausea, No vomiting, No diarrhea, No constipation Musculoskeletal: No calf pain Female : No dysuria Neurologic: + numbness/tingling (chronic neuropathy) Heme: No abnormal bleeding/bruising Objective Vital Signs Last Vital Signs Documentation Date Time Temp Pulse Resp B/P (MAP) Pulse Ox O2 Delivery O2 Flow Rate FiO2 09/15/16 04:00 Room Air 09/15/16 03:53 36.3 111 20 134/75 (94) 92 Physical Exam: General Appearance: + obese ENT: hearing grossly normal Neck: supple Respiratory/Chest: lungs clear, normal breath sounds, no respiratory distress Cardiovascular: no gallop, no murmur, + irregularly irregular Abdomen: normal bowel sounds, non tender, soft Extremities: no calf tenderness, + swelling (1+ edema to shins, palpable DP pulses. ), + pertinent finding (Left toes dressed. ) Neurologic/Psychiatric: alert, oriented x 3 Skin: normal color, no rash Lymphatic: no adenopathy Assessment and Plan 1. Left LE 3rd toe osteomyelitis 2. Persistent AF 3. Type 2 DM 4. HTN Remains in atrial fib, HR poorly controlled. Continue toprol 200 mg daily Increase diltiazem from 30 TID --> 60 TID. Continue heparin drip until 6 hrs before planned Continued [facility] stay due to: multiple IV medications needed Discharge planning: uncertain Medications: Reported Home Medications Medications Dose Route/Sig Max Daily Dose Days Date Category Proair Respiclick (Albuterol Sulfate) 108 Mcg/Act Aer 2 Puffs INH Q4-6H PRN 09/13/16 Reported Glucophage (Metformin Hcl) 1,000 Mg Tab 1,000 Mg PO BID 09/13/16 Reported Montelukast Sodium 10 Mg Tab 1 Tab PO DAILY 90 09/13/16 Reported Calcium & Magnesium (Calcium W/ Magnesium) 1 Tab Tab 64-106 Mg PO BID 09/13/16 Reported Zyrtec (Cetirizine HCl) 10 Mg Tab 10 Mg PO DAILY 09/13/16 Reported Xarelto (Rivaroxaban) 20 Mg Tab 1 Tab PO DAILY 30 08/14/16 Reported Tambocor (Flecainide Acetate) 100 Mg Tab 100 Mg PO BID 30 07/04/16 Rx Zestril (Lisinopril) 5 Mg Tab 5 Mg PO QPM 07/04/16 Reported Advair Diskus 250/50 60 Dose (Fluticasone Prop/Salmeterol) 1 Ea Aerp 1 Puffs INH DAILY 90 07/04/16 Reported Bactrim Ds 800MG/160MG (Trimethoprim/Sulfamethoxazole) Tab 1 Tab PO BID 07/03/16 Reported Vitamin B-12 (Cyanocobalamin) 1,000 Mcg Tab 1,000 Mcg PO DAILY 05/22/16 Reported Aleve (Naproxen) 220 Mg Tab 220 Mg PO Q12 PRN 05/22/16 Reported Vitamin D3 (Cholecalciferol) 1,000 Unit Tab 1 Tab PO DAILY 30 05/22/16 Reported Toprol-Xl (Metoprolol Succinate) 200 Mg Tabcr 200 Mg PO DAILY 05/22/16 Reported Lipitor (Atorvastatin) 40 Mg Tab 40 Mg PO QPM 05/22/16 Reported Hydrochlorothiazide 12.5 Mg Tab 1 Tab PO DAILY 90 05/22/16 Reported Ativan (Lorazepam) 0.5 Mg Tab 0.25-0.5 Mg PO BID PRN 09/21/14 Reported Wellbutrin Sr (Bupropion HCl) 150 Mg Ertab 150 Mg PO DAILY 08/25/13 Reported Lexapro (Escitalopram Oxalate) 10 Mg Tab 10 Mg PO HS 01/21/11 Reported Lab Results: Reported Home Medications Medications Dose Route/Sig Max Daily Dose Days Date Category Proair Respiclick (Albuterol Sulfate) 108 Mcg/Act Aer 2 Puffs INH Q4-6H PRN 09/13/16 Reported Glucophage (Metformin Hcl) 1,000 Mg Tab 1,000 Mg PO BID 09/13/16 Reported Montelukast Sodium 10 Mg Tab 1 Tab PO DAILY 90 09/13/16 Reported Calcium & Magnesium (Calcium W/ Magnesium) 1 Tab Tab 64-106 Mg PO BID 09/13/16 Reported Zyrtec (Cetirizine HCl) 10 Mg Tab 10 Mg PO DAILY 09/13/16 Reported Xarelto (Rivaroxaban) 20 Mg Tab 1 Tab PO DAILY 30 08/14/16 Reported Tambocor (Flecainide Acetate) 100 Mg Tab 100 Mg PO BID 30 07/04/16 Rx Zestril (Lisinopril) 5 Mg Tab 5 Mg PO QPM 07/04/16 Reported Advair Diskus 250/50 60 Dose (Fluticasone Prop/Salmeterol) 1 Ea Aerp 1 Puffs INH DAILY 90 07/04/16 Reported Bactrim Ds 800MG/160MG (Trimethoprim/Sulfamethoxazole) Tab 1 Tab PO BID 07/03/16 Reported Vitamin B-12 (Cyanocobalamin) 1,000 Mcg Tab 1,000 Mcg PO DAILY 05/22/16 Reported Aleve (Naproxen) 220 Mg Tab 220 Mg PO Q12 PRN 05/22/16 Reported Vitamin D3 (Cholecalciferol) 1,000 Unit Tab 1 Tab PO DAILY 30 05/22/16 Reported Toprol-Xl (Metoprolol Succinate) 200 Mg Tabcr 200 Mg PO DAILY 05/22/16 Reported Lipitor (Atorvastatin) 40 Mg Tab 40 Mg PO QPM 05/22/16 Reported Hydrochlorothiazide 12.5 Mg Tab 1 Tab PO DAILY 90 05/22/16 Reported Ativan (Lorazepam) 0.5 Mg Tab 0.25-0.5 Mg PO BID PRN 09/21/14 Reported Wellbutrin Sr (Bupropion HCl) 150 Mg Ertab 150 Mg PO DAILY 08/25/13 Reported Lexapro (Escitalopram Oxalate) 10 Mg Tab 10 Mg PO HS 01/21/11 Reported
--- NOTE | 2016-09-15 11:38 | DIAGNOSTIC IMAGING REPORT ---
CHEST ONE VIEW PORTABLE HISTORY: CHECK FOR PICC PLACEMENT COMPARISON: Chest 09/13/2016. FINDINGS: Cardiac silhouette remains enlarged. Mild central pulmonary vascular congestion without overt edema. No pleural effusions. No pneumothorax. Old, healed left-sided rib fractures. The lungs are clear. The right PICC terminates in the right atrium. This should be pulled back by approximately 4 to 5 cm. IMPRESSION: The right PICC terminates in the right atrium. This should be pulled back by approximately 4 to 5 cm. Electronically signed by: Aron Mcelroy M.D. 09/15/2016 11:36 AM Dictated Date/Time: 09/15/2016 11:35 AM
[2016-09-15 11:54] LABS: PARTIAL THROMBOPLASTIN RATIO 1.7
--- NOTE | 2016-09-15 11:58 | Hospitalist Progress Note ---
Hospitalist Progress Note Date of Service Sep 15, 2016. (Ariana Tapia ., BALTAZAR-C) Subjective Pt evaluation today including: conversation w/ patient, physical exam, chart review, lab review, conversation w/ senior research consultant (spoke with Dr. Cyr), review of inpatient medication list Pain: 5/10 headache PO Intake: Tolerating PO diet Voiding: no voiding problems The patient complains of a 5/10 headache. She complains of mild, dull pain in her left third toe but states that her headache is bothering her more. She has chronic numbness/tingling in her feet due to her diabetes, and she states that she sometimes has a burning sensation. She also complains of nausea, although this is improving since receiving Zofran. The patient is very anxious about her heart and upcoming surgery. The patient also attempted to have an MRI done last evening became too anxious to complete a good study despite receiving Ativan prior. The patient denies fevers, chills, sweats, chest pain, palpitations, claudication, cough, wheezing, shortness of breath, vomiting, abdominal pain, dysuria, hematuria, urinary retention, paralysis, weakness. Additional Comments: See HPI for pertinent positives and negatives. All other systems reviewed and negative. (Ariana Tapia ., PA-C) Objective Vital Signs Date Time Temp Pulse Resp B/P (MAP) Pulse Ox O2 Delivery O2 Flow Rate FiO2 09/15/16 08:30 95 Room Air 09/15/16 07:55 36.7 126 20 148/105 (119) 95 Room Air 09/15/16 04:00 Room Air 09/15/16 03:53 36.3 111 20 134/75 (94) 92 Room Air 09/14/16 23:59 Room Air 09/14/16 23:45 36.5 110 20 132/94 (107) 95 Room Air 09/14/16 20:00 Room Air 09/14/16 19:26 36.7 109 18 118/72 (87) 98 09/14/16 16:08 36.8 120 18 120/81 (94) 96 09/14/16 12:57 96 Room Air 09/14/16 11:43 36.7 117 18 136/99 (111) 94 Room Air (Ariana Tapia ., BALTAZAR-C) Physical Exam Notes: General appearance: +Morbidly obese. Well-developed, well-nourished, no apparent distress Head: Normocephalic, atraumatic Eyes: Normal inspection, PERRL, EOMI ENT: Normal ENT inspection, hearing grossly normal, pharynx normal Neck: Supple, no JVD, trachea midline Respiratory/Chest: +Decreased breath sounds. Lungs clear to auscultation, normal breath sounds, no respiratory distress Cardiovascular: +Irregularly irregular, tachycardic. No gallop, no murmur Abdomen/GI: Normal bowel sounds, non-tender, soft Extremities/Musculoskeletal: +2+ pitting edema. Erythema left 3rd toe and dorsal aspect left foot. Normal inspection, no calf tenderness, no pedal edema Neurological/Psych: +Anxious, teary. Alert, oriented x 3 Skin: Normal color, warm/dry, no rash (Ariana Tapia ., PA-C) Laboratory Results Last 24 Hours Test 09/14/16 11:37 09/14/16 14:14 09/14/16 16:18 09/14/16 20:17 Bedside Glucose 102 mg/dl 125 mg/dl 119 mg/dl Activated Partial Thromboplast Time 30.3 SECONDS Partial Thromboplastin Ratio 1.2 Test 09/14/16 21:36 09/15/16 04:24 09/15/16 11:00 Activated Partial Thromboplast Time 41.0 SECONDS 42.2 SECONDS Partial Thromboplastin Ratio 1.6 1.6 White Blood Count 7.94 K/uL Red Blood Count 3.24 M/uL Hemoglobin 10.7 g/dL Hematocrit 32.0 % Mean Corpuscular Volume 98.8 fL Mean Corpuscular Hemoglobin 33.0 pg Mean Corpuscular Hemoglobin Concent 33.4 g/dl Platelet Count 197 K/uL Mean Platelet Volume 9.5 fL Neutrophils (%) (Auto) 69.0 % Lymphocytes (%) (Auto) 20.2 % Monocytes (%) (Auto) 6.9 % Eosinophils (%) (Auto) 3.1 % Basophils (%) (Auto) 0.5 % Neutrophils # (Auto) 5.48 K/uL Lymphocytes # (Auto) 1.60 K/uL Monocytes # (Auto) 0.55 K/uL Eosinophils # (Auto) 0.25 K/uL Basophils # (Auto) 0.04 K/uL RDW Standard Deviation 50.9 fL RDW Coefficient of Variation 14.2 % Immature Granulocyte % (Auto) 0.3 % Immature Granulocyte # (Auto) 0.02 K/uL Absolute Reticulocyte Count 0.07 10^6/uL Percent Reticulocyte Count 2.1 % Prothrombin Time 11.9 SECONDS Prothromb Time International Ratio 1.1 Sodium Level 135 mmol/L Potassium Level 4.3 mmol/L Chloride Level 98 mmol/L Carbon Dioxide Level 28 mmol/L Anion Gap 9.0 mmol/L Blood Urea Nitrogen 9 mg/dl Creatinine 0.53 mg/dl Est Creatinine Clear Calc Drug Dose 152.2 ml/min Estimated GFR () 124.8 Estimated GFR (Non- 107.6 BUN/Creatinine Ratio 16.6 Random Glucose 126 mg/dl Estimated Average Glucose 128 mg/dl Hemoglobin A1c 6.1 % Calcium Level 8.3 mg/dl Magnesium Level 1.7 mg/dl (Ariana Tapia ., BRANDEE) Assessment and Plan 56 y/o female with PMHx of T2DM, A Fib S/P Cardioversion x 2, HTN, HLD, B12 Deficiency, and Chronic R Leg Infection on Bactrim who is admitted for L 3rd toe osteomyelitis. Left 3rd Toe Osteomyelitis--stable - Aztreonam 2 g IV Q8H, Clindamycin 900 mg IV Q8H, and Vancomycin per pharmacy dosing. Day #3 - ID consulted, appreciate recs: continue current antibiotics for now, awaiting culture results - Blood cultures pending - PICC line consented and on chart - Orthopedics consulted, appreciate recs: Amputate toe when medically stable. MRI left foot and x-ray right foot to check for bony involvement on opposite side. - Wound following - appreciate input and dressing/cleaning recommendations Atrial Fibrillation with RVR--ongoing - Transfer to telemetry 09/14. Pt remained in afib with RVR, HR 110s-120s, up to 150s - Cardiology consulted, appreciate recs: Focus on rate control strategy as opposed to rhythm control, as pt is likely actually in permanent afib. D/C flecainide. Add diltiazem to metoprolol. Increase diltiazem to 60 mg PO TID. - Continue metoprolol succinate 200 mg PO qd - Increase diltiazem from 30 mg PO TID to 60 mg PO TID - Hold Xarelto in anticipation of possible amputation - converted to Heparin gtt. Hold 6 hours prior to surgery Hypomagnesemia--ongoing -Magnesium 1.7 on 09/15 -Magnesium sulfate 1 gm IV x 1 -Continue to monitor, goal magnesium > 2 HTN--stable - Resume HCTZ 12.5 mg PO qd - Continue lisinopril 5 mg PO qd Diabetes mellitus type 2--stable - HgbA1c 6.1 on 09/15 - Hold Metformin - Insulin sliding scale - Check BSGs q ac and qhs Macrocytic Anemia - B12 Deficiency--stable - Continue B12 1000 mcg PO qd - Hgb stable HLD -Continue atorvastatin 40 mg PO qd Depression/Anxiety - Wellbutrin 150 mg PO qd and Lexapro 10 mg PO qd - Ativan increased to 1 mg PO QID prn anxiety. Will give 1 mg prior to MRI due to claustrophobia, anxiety DVT prophylaxis -Heparin drip -SCDs Code Status -Level I, FULL RESUSCITATION STATUS (Ariana Tapia ., PA-C) I agree with BALTAZAR assessment and plan and have seen and examined pt myself Imaging reviewed Tachycardia noted overnight Afib strategy changed Appreciate cards recs Agree with cont V antibx of vanc, aztreonam, clinda Awaiting cx Ext - Cellulitis noted on left foot Appreciate surg recs Likely amputation MRI lower ext pending (John Dubon D.O.)
--- NOTE | 2016-09-15 12:27 | DIAGNOSTIC IMAGING REPORT ---
CHEST ONE VIEW PORTABLE CLINICAL HISTORY: PICC REPOSITIONED COMPARISON STUDY: Same date 11:26 AM FINDINGS: Right-sided PICC catheter now in good position within the superior vena cava. No evidence pneumothorax. IMPRESSION: PICC catheter in superior vena cava in good position. Electronically signed by: Gerardo Moss M.D. 09/15/2016 12:25 PM Dictated Date/Time: 09/15/2016 12:25 PM
[2016-09-15] MEDS ORDERED: NURSING VERBAL MED ORDER ONE (12:30)
--- NOTE | 2016-09-15 15:32 | Pharmacy Progress Note ---
Pharmacy Antibiotic Prog Note Date of Service Sep 15, 2016. Subjective The patient is a 56 year old female admitted on 09/13/16 with complaints of swelling and erythema of the third left toe starting about 2 days prior to admission. The patient is currently receiving Vancomycin 1500 mg IV every 8 hours. The patient is currently on day # 3 of Vancomycin IV therapy. Objective Height (Feet): 5 Height (Inches): 3.00 Weight (Kilograms): 120.000 Levels: Item Value Date Time Vancomycin Level Trough 17.5 mcg/ml 09/15/16 1115 Lab Results (24hrs): Test 09/14/16 20:17 09/15/16 04:24 09/15/16 11:15 09/15/16 11:31 Bedside Glucose 119 mg/dl (70-90) 127 mg/dl (70-90) White Blood Count 7.94 K/uL (4.8-10.8) Red Blood Count 3.24 M/uL (4.2-5.4) Hemoglobin 10.7 g/dL (12.0-16.0) Hematocrit 32.0 % (37-47) Mean Corpuscular Volume 98.8 fL (80-100) Mean Corpuscular Hemoglobin 33.0 pg (25-34) Mean Corpuscular Hemoglobin Concent 33.4 g/dl (32-36) Platelet Count 197 K/uL (130-400) Mean Platelet Volume 9.5 fL (7.4-10.4) Neutrophils (%) (Auto) 69.0 % Lymphocytes (%) (Auto) 20.2 % Monocytes (%) (Auto) 6.9 % Eosinophils (%) (Auto) 3.1 % Basophils (%) (Auto) 0.5 % Neutrophils # (Auto) 5.48 K/uL (1.4-6.5) Lymphocytes # (Auto) 1.60 K/uL (1.2-3.4) Monocytes # (Auto) 0.55 K/uL (0.11-0.59) Eosinophils # (Auto) 0.25 K/uL (0-0.5) Basophils # (Auto) 0.04 K/uL (0-0.2) RDW Standard Deviation 50.9 fL (36.4-46.3) RDW Coefficient of Variation 14.2 % (11.5-14.5) Immature Granulocyte % (Auto) 0.3 % Immature Granulocyte # (Auto) 0.02 K/uL (0.00-0.02) Absolute Reticulocyte Count 0.07 10^6/uL (0.02-0.10) Percent Reticulocyte Count 2.1 % (0.5-2.0) Prothrombin Time 11.9 SECONDS (9.0-12.0) Prothromb Time International Ratio 1.1 (0.9-1.1) Activated Partial Thromboplast Time 42.2 SECONDS (21.0-31.0) 45.4 SECONDS (21.0-31.0) Partial Thromboplastin Ratio 1.6 1.7 Sodium Level 135 mmol/L (136-145) Potassium Level 4.3 mmol/L (3.5-5.1) Chloride Level 98 mmol/L (98-107) Carbon Dioxide Level 28 mmol/L (21-32) Anion Gap 9.0 mmol/L (3-11) Blood Urea Nitrogen 9 mg/dl (7-18) Creatinine 0.53 mg/dl (0.60-1.20) Est Creatinine Clear Calc Drug Dose 152.2 ml/min Estimated GFR () 124.8 Estimated GFR (Non- 107.6 BUN/Creatinine Ratio 16.6 (10-20) Random Glucose 126 mg/dl (70-99) Estimated Average Glucose 128 mg/dl Hemoglobin A1c 6.1 % (4.5-5.6) Calcium Level 8.3 mg/dl (8.5-10.1) Magnesium Level 1.7 mg/dl (1.8-2.4) Vancomycin Level Trough 17.5 mcg/ml (SEE COMMENT) Micro Results: Cultures negative thus far: Item Value Date Time Blood Culture - Preliminary Resulted 09/13/16 1452 Blood NO GROWTH TO DATE. Blood Culture - Preliminary Resulted 09/13/16 1441 Blood NO GROWTH TO DATE. Blood Culture - Preliminary Resulted 09/13/16 1257 Blood NO GROWTH TO DATE. Blood Culture - Preliminary Resulted 09/13/16 1248 Blood NO GROWTH TO DATE. Recent Pertinent Medications Item Value Date Time Vancomycin HCl 530 ml @ 200 mls/hr 09/14/16 0000 1500 mg/Sodium Q8H/IV 09/15/16 1138 Chloride Aztreonam 2000 mg/ 110 ml @ 100 mls/hr 09/14/16 0000 Dextrose Q8@0000,0800,1600/IV 09/15/16 0734 Clindamycin 106 ml @ 100 mls/hr 09/13/16 1800 Phosphate 900 mg/ Q8@0200,1000,1800/IV 09/15/16 1132 Dextrose Assessment & Plan [age] yo female patient with possible osteomyelitis of the left 3rd toe and history of chronic infection with right TKA. Patient on chronic Bactrim suppression therapy as an outpatient. Renal function appears stable since admission, cultures negative thus far and patient remains afebrile. Patient with BMI 46.9 kg/m2, thus anticipate drug accumulation with ongoing IV Vancomycin, thus will repeat levels in ~ 48 hours. Vancomycin trough level is: [X] Therapeutic Continue Vancomycin 1500 mg IV every 8 hours. Goal peak level estimate: between 30 - 40 mcg/mL. Goal trough level estimate: between 15 - 20 mcg/mL. Repeat Vancomycin trough level has been ordered for: Thursday09/17/16 prior to the noontime dose. Pharmacy will continue to follow and will adjust dose/frequency as necessary. Thank you
[2016-09-15] MEDS: LORAZEPAM 1 MG TAB PO PRN (15:59)
[2016-09-15] MEDS ORDERED: GADAVIST IV PRN (18:15)
--- NOTE | 2016-09-15 18:37 | DIAGNOSTIC IMAGING REPORT ---
MRI OF THE LEFT FOREFOOT WITH AND WITHOUT CONTRAST CLINICAL HISTORY: Left third toe osteomyelitis. Sepsis. Preoperative planning. COMPARISON STUDY: Left third toe radiographs September 13, 2016. TECHNIQUE: Utilizing 1.5 Chiara magnet and dedicated coil, multiplanar, multiecho imaging of the left forefoot was performed pre and postcontrast administration. Injection of 12 cc of Gadavist IV was uneventful. FINDINGS: There is extensive subcutaneous edema of the left forefoot and midfoot. There is extensive soft tissue swelling consistent with cellulitis of the left third toe. Marked marrow edema is noted within the distal phalanx of the left third toe with complete loss of normal T1 signal. This is consistent with osteomyelitis with bony destruction. There is also moderate marrow edema within the middle phalanx of the left third toe with slightly diminished signal on the T1-weighted sequence. Similarly, there is mild marrow edema within the proximal phalanx of the left third toe is slightly diminished T1 signal. No additional sites of marrow edema are present. A wound of the medial aspect of the left third toe is noted with a subjacent 6 mm x 5 to rim-enhancing fluid collection which may reflect a small abscess which extends to the bone of the distal phalanx. 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 Associated cellulitis, wound and suspected 6 mm abscess which extends from the skin to the distal phalanx. In addition, marrow edema within the proximal and middle phalanges of the left third toe which could reflect developing osteomyelitis or osteitis. These bones are also abnormal. Electronically signed by: Jose Ramon Bates M.D. 09/15/2016 6:36 PM Dictated Date/Time: 09/15/2016 6:26 PM
[2016-09-15 18:54] LABS: PARTIAL THROMBOPLASTIN RATIO 1.6
[2016-09-15] MEDS ORDERED: HEPARIN IV BOLUS 3,000 UNIT in SYRINGE 0 ML IV SCH (20:00)
[2016-09-15] MEDS: ZOLPIDEM TARTRATE 5 MG TAB PO PRN (20:50)
[2016-09-15] MEDS: ATORVASTATIN 40 MG TAB PO SCH (20:51)
[2016-09-15] MEDS: ESCITALOPRAM OXALATE 10 MG TAB PO SCH (20:51)
[2016-09-15] MEDS: LISINOPRIL 5 MG TAB PO SCH (20:52)
[2016-09-16] VITALS (7 sets, daily range): BP systolic 123–145; BP diastolic 64–101; PULSE 62–101; TEMP 36.4–36.9; O2SAT 92–97
[2016-09-16 01:26] LABS: PARTIAL THROMBOPLASTIN RATIO 2.3
[2016-09-16] MEDS: CLINDAMYCIN IV 900 MG in DEXTROSE 5% ADD-VANTAGE 100ML 100 ML IV SCH ×2 (01:49→09:31)
[2016-09-16] MEDS: HEPARIN 25,000 UNIT/500ML D5W 500 ML IV PRN ×2 (02:19→13:35)
[2016-09-16] MEDS: VANCOMYCIN INJ 1,500 MG in SODIUM CHLORIDE 0.9% 500ML 500 ML IV SCH ×3 (03:39→20:01)
[2016-09-16] MEDS: ACETAMINOPHEN 325 MG TAB PO PRN (05:55)
[2016-09-16 06:07] LABS: BASO % 0.4 %; BASO ABS # 0.03 K/uL (0-0.2); COMPLETE YES; EOS % 3.3 %; HEMATOCRIT 32.3 % (37-47); IG% 0.4 %; LYMPH % 21.6 %; LYMPH ABS # 1.64 K/uL (1.2-3.4); MEAN CELL VOLUME 100.3 fL (80-100); MEAN CORPUSCULAR HEMOGLOBIN 30.7 pg (25-34); MEAN CORPUSCULAR HGB CONC 30.7 g/dl (32-36); MEAN PLATELET VOLUME 9.8 fL (7.4-10.4); MONO % 10.2 %; NEUT % 64.1 %; PLATELET COUNT 213 K/uL (130-400); RED BLOOD COUNT 3.22 M/uL (4.2-5.4); WHITE BLOOD COUNT 7.61 K/uL (4.8-10.8)
[2016-09-16 06:31] LABS: INR 1.1 (0.9-1.1); PROTHROMBIN TIME (PATIENT) 12.2 SECONDS (9.0-12.0)
[2016-09-16 06:43] LABS: BUN/CREATININE RATIO 21.1 (10-20); CALCIUM 8.1 mg/dl (8.5-10.1); CREATININE 0.48 mg/dl (0.60-1.20); MAGNESIUM 1.6 mg/dl (1.8-2.4); POTASSIUM 4.7 mmol/L (3.5-5.1)
[2016-09-16] MEDS ORDERED: MAGNESIUM SULFATE 1GM / D5W 1 GM in PREMIXED IN D5W 100 ML IV SCH (07:30)
[2016-09-16] MEDS: CETIRIZINE HCL 10 MG TAB PO SCH (08:16)
[2016-09-16] MEDS: METOPROLOL SUCC 50MG EXT REL TAB PO SCH (08:16)
[2016-09-16] MEDS: BuPROPion SR 150 MG TABCR PO SCH (08:16)
[2016-09-16] MEDS: LACTOBACILLUS ACIDOPHILUS (FLORANEX) TAB PO SCH ×3 (08:16→17:15)
[2016-09-16] MEDS: MONTELUKAST SOD 10 MG TAB PO SCH (08:16)
[2016-09-16] MEDS: CYANOCOBALAMIN 500 MCG TAB (VIT B-12) PO SCH (08:16)
[2016-09-16] MEDS: DILTIAZEM HCL 30 MG TAB PO SCH ×3 (08:17→21:25)
[2016-09-16] MEDS: HYDROCHLOROTHIAZIDE 25 MG TAB PO SCH (08:17)
[2016-09-16] MEDS: CHOLECALCIFEROL 1000 INTER.UNIT TAB PO SCH (08:17)
[2016-09-16] MEDS: CALCIUM 600MG + VIT D 400 IU TAB PO SCH ×2 (08:17→21:24)
[2016-09-16] MEDS: INSULIN ASPART 100 UNITS/ML 3 ML PEN SC SCH ×4 (08:18→21:00)
[2016-09-16] MEDS: AZTREONAM IV 2,000 MG in DEXTROSE 5% 100ML 100 ML IV SCH ×2 (08:20→15:33)
--- NOTE | 2016-09-16 12:58 | Hospitalist Progress Note ---
Hospitalist Progress Note Date of Service Sep 16, 2016. (Ariana Tapia ., BALTAZAR-C) Subjective Pt evaluation today including: conversation w/ patient, physical exam, chart review, lab review, review of inpatient medication list Pain: 2/10 dull pain left 3rd toe PO Intake: Tolerating PO diet Voiding: no voiding problems Patient reports feeling well overall. She complains of 2/10 dull pain in her left third toe. She still complains of swelling in her lower extremities bilaterally. She states that her headache from yesterday has resolved. She still has some mild nausea but this is improved from yesterday. The patient developed shortness of breath last night and was placed on nasal cannula for sleeping. She is now oxygenating well on room air and denies shortness of breath this morning. The patient denies fevers, chills, sweats, chest pain, palpitations, claudication, cough, wheezing, shortness of breath, vomiting, abdominal pain, dysuria, hematuria, urinary retention, paralysis, weakness, worsening numbness and tingling. Additional Comments: See HPI for pertinent positives and negatives. All other systems reviewed and negative. (Ariana Tapia ., PA-C) Objective Vital Signs Date Time Temp Pulse Resp B/P (MAP) Pulse Ox O2 Delivery O2 Flow Rate FiO2 09/16/16 12:00 Room Air 09/16/16 11:20 36.4 77 19 123/80 (94) 97 Nasal Cannula 3.0 09/16/16 08:00 Room Air 09/16/16 07:16 36.9 86 24 135/94 (108) 94 Room Air 09/16/16 04:00 92 Nasal Cannula 2.0 09/16/16 03:51 36.4 72 22 128/64 (85) 92 Nasal Cannula 2.0 09/15/16 23:59 92 Nasal Cannula 2.0 09/15/16 23:58 36.5 74 18 120/71 (87) 92 Nasal Cannula 2.0 09/15/16 20:00 94 Room Air 09/15/16 19:59 36.4 86 20 132/82 (99) 94 Room Air 09/15/16 16:00 36.6 86 19 108/76 (87) 94 Room Air 09/15/16 16:00 Room Air (Ariana Tapia ., BALTAZAR-C) Physical Exam Notes: General appearance: +Morbidly obese. Well-developed, well-nourished, no apparent distress Head: Normocephalic, atraumatic Eyes: Normal inspection, PERRL, EOMI ENT: Normal ENT inspection, hearing grossly normal, pharynx normal Neck: Supple, no JVD, trachea midline Respiratory/Chest: +Decreased breath sounds. Lungs clear to auscultation, normal breath sounds, no respiratory distress Cardiovascular: +Irregularly irregular. Regular rate. No gallop, no murmur Abdomen/GI: +Lower abdomen distended. Pt states she is moving her bowels and had a BM today. Urinating w/o difficulty. No pain. Normal bowel sounds, non- tender, soft Extremities/Musculoskeletal: +1+ pitting edema. Erythema left 3rd toe and dorsal aspect left foot. Normal inspection, no calf tenderness, no pedal edema Neurological/Psych: +Anxious, teary. Alert, oriented x 3 Skin: Normal color, warm/dry, no rash (Ariana Tapia ., PA-C) Laboratory Results Last 24 Hours Test 09/15/16 16:44 09/15/16 18:30 09/15/16 20:34 09/16/16 00:55 Bedside Glucose 118 mg/dl 129 mg/dl Activated Partial Thromboplast Time 40.5 SECONDS 59.5 SECONDS Partial Thromboplastin Ratio 1.6 2.3 Test 09/16/16 05:33 09/16/16 06:39 09/16/16 11:03 White Blood Count 7.61 K/uL Red Blood Count 3.22 M/uL Hemoglobin 9.9 g/dL Hematocrit 32.3 % Mean Corpuscular Volume 100.3 fL Mean Corpuscular Hemoglobin 30.7 pg Mean Corpuscular Hemoglobin Concent 30.7 g/dl Platelet Count 213 K/uL Mean Platelet Volume 9.8 fL Neutrophils (%) (Auto) 64.1 % Lymphocytes (%) (Auto) 21.6 % Monocytes (%) (Auto) 10.2 % Eosinophils (%) (Auto) 3.3 % Basophils (%) (Auto) 0.4 % Neutrophils # (Auto) 4.88 K/uL Lymphocytes # (Auto) 1.64 K/uL Monocytes # (Auto) 0.78 K/uL Eosinophils # (Auto) 0.25 K/uL Basophils # (Auto) 0.03 K/uL RDW Standard Deviation 52.1 fL RDW Coefficient of Variation 14.2 % Immature Granulocyte % (Auto) 0.4 % Immature Granulocyte # (Auto) 0.03 K/uL Prothrombin Time 12.2 SECONDS Prothromb Time International Ratio 1.1 Activated Partial Thromboplast Time 53.2 SECONDS Partial Thromboplastin Ratio 2.0 Sodium Level 133 mmol/L Potassium Level 4.7 mmol/L Chloride Level 98 mmol/L Carbon Dioxide Level 28 mmol/L Anion Gap 7.0 mmol/L Blood Urea Nitrogen 10 mg/dl Creatinine 0.48 mg/dl Est Creatinine Clear Calc Drug Dose 168.2 ml/min Estimated GFR () 128.9 Estimated GFR (Non- 111.2 BUN/Creatinine Ratio 21.1 Random Glucose 112 mg/dl Calcium Level 8.1 mg/dl Magnesium Level 1.6 mg/dl Bedside Glucose 125 mg/dl 106 mg/dl (Ariana Tapia PA-C) Diagnostic Results Patient Name: MILA RUVALCABA Unit Number: [id number] Dictated: 09/15/161825 Transcribed: 09/15/161825 Printed Date/Time: [~ rep prt dt]/[~ rep prt tm] [~ rep ct labl] - [~ rep ct ivnm] [facility] [place] [address] Dictated: 09/15/161825 Transcribed: 09/15/161825 Printed Date/Time: [~ rep prt dt]/[~ rep prt tm] [~ rep ct labl] - [~ rep ct ivnm] Patient: MILA RUVALCABA Address1: [address] [facility] Rec: [id number] Address2: Acct ID: [id number] [facility] Zip: [place] [address] Date: 1960 Sex: F Room/Bed: S2302 Ref Phy: Parveen Fishman M.D. SC: Jacey Att Phy: John Dubon D.O. Report #: [id number] [place] Phy: Parveen Fishman M.D. Test: LENJC Admit Phy: Johnathan Huff M.D. Oxygen Equipment Techn[facility] Interpreting Phy: Jose Ramon Bates MD Diagnosis: SEPSIS, TOE OSTEOMYELITIS - LEFT Ordering Phy: Vishnu Orozco M.D. Service Date: 09/15/16 Admit Date: 09/13/1705/10/17 MNE: [id number] CONF: DICTATED BY: Jose Ramon Bates MD]] CC: John Dubon D.O. Pro,Renita Kemp Edwin, M.D. Endcc: [~ rep ct add3]] MRI OF THE LEFT FOREFOOT WITH AND WITHOUT CONTRAST CLINICAL HISTORY: Left third toe osteomyelitis. Sepsis. Preoperative planning. COMPARISON STUDY: Left third toe radiographs September 13, 2016. TECHNIQUE: Utilizing 1.5 Chiara magnet and dedicated coil, multiplanar, multiecho imaging of the left forefoot was performed pre and postcontrast administration. Injection of 12 cc of Gadavist IV was uneventful. FINDINGS: There is extensive subcutaneous edema of the left forefoot and midfoot. There is extensive soft tissue swelling consistent with cellulitis of the left third toe. Marked marrow edema is noted within the distal phalanx of the left third toe with complete loss of normal T1 signal. This is consistent with osteomyelitis with bony destruction. There is also moderate marrow edema within the middle phalanx of the left third toe with slightly diminished signal on the T1-weighted sequence. Similarly, there is mild marrow edema within the proximal phalanx of the left third toe is slightly diminished T1 signal. No additional sites of marrow edema are present. A wound of the medial aspect of the left third toe is noted with a subjacent 6 mm x 5 to rim-enhancing fluid collection which may reflect a small abscess which extends to the bone of the distal phalanx. 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 Associated cellulitis, wound and suspected 6 mm abscess which extends from the skin to the distal phalanx. In addition, marrow edema within the proximal and middle phalanges of the left third toe which could reflect developing osteomyelitis or osteitis. These bones are also abnormal. Electronically signed by: Jose Ramon Baets M.D. 09/15/2016 6:36 PM Dictated Date/Time: 09/15/2016 6:26 PM The status of this report is Signed. Draft = Not yet reviewed or approved by Radiologist. Signed = Reviewed and approved by Radiologist. <AttendingPhy>John Dubon D.O.</AttendingPhy> <FamilyPhy>Parveen Fishman M.D.</FamilyPhy> <PrimaryPhy>Parveen Fishman M.D.</PrimaryPhy> <UnitNumber> [id number]</UnitNumber> <VisitNumber>[id number]</VisitNumber> <PatientName> JOSÉ LUISJARADMILA Maryjane</PatientName> <DateOfBirth>1960</DateOfBirth> < Location>[facility]</Location> <ServiceDate>09/13/16</ServiceDate> <MNE>ESINDI</MNE> < OrderingPhy>Vishnu Orozco M.D.</OrderingPhy> <OrderingPhyMNE>f rep ord dr peña</ OrderingPhyMNE> <DictatingPhyMNE>f rep dict dr peña</DictatingPhyMNE> <CCListMNE> f rep ct mne</CCListMNE> <AdmittingPhyMNE>f pt admit dr peña</AdmittingPhyMNE> < AttendingPhyMNE>f pt attend dr peña</AttendingPhyMNE> <ConsultingPhyMNE>f pt consult dr peña</ConsultingPhyMNE> <FamilyPhyMNE>f pt fam dr peña</FamilyPhyMNE> <OtherPhyMNE>f pt other dr peña</OtherPhyMNE> < PrimaryPhyMNE>f pt prim care dr peña</PrimaryPhyMNE> <ReferringPhyMNE>f pt referring dr peña</ReferringPhyMNE> (Ariana Tapia PA-C) Assessment and Plan 56 y/o female with PMHx of T2DM, A Fib S/P Cardioversion x 2, HTN, HLD, B12 Deficiency, and Chronic R Leg Infection on Bactrim who is admitted for L 3rd toe osteomyelitis. Left 3rd Toe Osteomyelitis--stable - Aztreonam 2 g IV Q8H, Clindamycin 900 mg IV Q8H, and Vancomycin per pharmacy dosing. Day #4 - ID consulted, appreciate recs: continue current antibiotics for now, awaiting culture results - Blood cultures NGTD X4 - PICC line inserted 09/15 - Orthopedics consulted, appreciate recs: Amputate toe when medically stable. MRI left foot and x-ray right foot to check for bony involvement on opposite side. 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 Associated cellulitis, wound and suspected 6 mm abscess which extends from the skin to the distal phalanx. In addition, marrow edema within the proximal and middle phalanges of the left third toe which could reflect developing osteomyelitis or osteitis. These bones are also abnormal. - Wound following - appreciate input and dressing/cleaning recommendations Atrial Fibrillation with RVR--improving, now rate controlled - Transfer to telemetry 09/14. Pt remained in afib with HR 60s-80s overnight, 90s-100s this morning before meds - Cardiology consulted, appreciate recs: Focus on rate control strategy as opposed to rhythm control, as pt is likely actually in permanent afib. D/C flecainide. Add diltiazem to metoprolol. Increase diltiazem to 60 mg PO TID. - Continue metoprolol succinate 200 mg PO qd - Increase diltiazem from 30 mg PO TID to 60 mg PO TID - Hold Xarelto in anticipation of possible amputation - converted to Heparin gtt. Hold 6 hours prior to surgery Hypomagnesemia--ongoing -Magnesium 1.6 on 09/16 -Magnesium sulfate 1 gm IV x 1 -Magnesium oxide 400 mg PO BID -Continue to monitor, goal magnesium > 2 HTN--stable - Resume HCTZ 12.5 mg PO qd - Continue lisinopril 5 mg PO qd Diabetes mellitus type 2--stable - HgbA1c 6.1 on 09/15 - Hold Metformin - Insulin sliding scale - Check BSGs q ac and qhs Macrocytic Anemia - B12 Deficiency--stable - Continue B12 1000 mcg PO qd - Hgb stable HLD -Continue atorvastatin 40 mg PO qd Depression/Anxiety - Wellbutrin 150 mg PO qd and Lexapro 10 mg PO qd - Ativan increased to 1 mg PO QID prn anxiety DVT prophylaxis -Heparin drip -SCDs Code Status -Level I, FULL RESUSCITATION STATUS (Ariana aTpia ., PA-C) I agree with PA assessment and plan and have seen and examined pt myself VSS Labs reviewed MRI reviewed Likely osteomyelitis in toe Awaiting surg intervention at this time No acute events overnight Cont IV antibx at this time (John Dubon D.O.)
--- NOTE | 2016-09-16 14:17 | Infectious Disease Progress Nt ---
Progress Note Date of Service Sep 16, 2016. Subjective Pt evaluation today including: conversation w/ patient, physical exam, chart review, lab review, review of studies, conversation w/ clinical practice consultant, review of inpatient medication list Patient had some shortness of breath last night, better this morning. Pain toe currently 2/10 in intensity. Remains afebrile. MRI performed showing possible osteomyelitis. Tolerating antibiotics without apparent difficulty. All Other Systems: Reviewed and Negative Medications Current Inpatient Medications Medications (Trade) Dose Ordered Sig/Flash Route Start Time Stop Time Status Last Admin Dose Admin Acetaminophen (Tylenol Tab) 650 mg Q4H PRN PO 09/13/16 14:30 10/13/16 14:29 09/16/16 05:55 650 MG Zolpidem Tartrate (Ambien Tab) 5 mg HSZ PRN PO 09/13/16 14:30 10/13/16 14:29 09/15/16 20:50 5 MG Bupropion HCl (Wellbutrin-Sr Tab) 150 mg DAILY PO 09/14/16 09:00 10/14/16 08:59 09/16/16 08:16 150 MG Cetirizine HCl (zyrTEC TAB) 10 mg DAILY PO 09/14/16 09:00 10/14/16 08:59 09/16/16 08:16 10 MG Cholecalciferol (Vitamin D Tab) 1,000 inter.unit DAILY PO 09/14/16 09:00 10/14/16 08:59 09/16/16 08:17 1,000 INTER.UNIT Cyanocobalamin (Vitamin B-12 Tab) 1,000 mcg DAILY PO 09/14/16 09:00 10/14/16 08:59 09/16/16 08:16 1,000 MCG Escitalopram Oxalate (Lexapro Tab) 10 mg HS PO 09/13/16 21:00 10/13/16 20:59 09/15/16 20:51 10 MG Metoprolol Succinate (Toprol Xl Tab) 200 mg DAILY PO 09/14/16 09:00 10/14/16 08:59 09/16/16 08:16 200 MG Calcium/Vitamin D (Caltrate Plus Tab) 1 tab BID PO 09/13/16 21:00 10/13/16 20:59 09/16/16 08:17 1 TAB Vancomycin HCl 1500 mg/Sodium Chloride 530 ml @ 200 mls/hr Q8H IV 09/14/16 00:00 10/26/16 00:00 09/16/16 11:10 200 MLS/HR Aztreonam 2000 mg/ Dextrose 110 ml @ 100 mls/hr Q8@0000,0800,1600 IV 09/14/16 00:00 10/26/16 00:00 09/16/16 08:20 100 MLS/HR Clindamycin Phosphate 900 mg/ Dextrose 106 ml @ 100 mls/hr Q8@0200,1000,1800 IV 09/13/16 18:00 10/25/16 17:59 09/16/16 09:31 100 MLS/HR Lactobacillus Acidophilus (Floranex Tab) 4 tab TIDM PO 09/13/16 17:00 10/13/16 17:59 09/16/16 11:09 4 TAB Ondansetron HCl (Zofran Inj) 4 mg Q6H PRN IV 09/13/16 15:00 10/13/16 14:59 09/15/16 07:30 4 MG Insulin Aspart (novoLOG ASPART) SLIDING SCALE If C... ACHS SC 09/13/16 17:00 10/13/16 16:59 09/16/16 12:03 3 UNITS Glucose (Glucose 40% Gel) UD PRN PO 09/13/16 15:00 10/13/16 14:59 Glucose (Glucose Chew Tab) 1 tabs UD PRN PO 09/13/16 15:00 10/13/16 14:59 Dextrose (Dextrose 50% 50ML Syringe) 50 ml UD PRN IV 09/13/16 15:00 10/13/16 14:59 Glucagon (Glucagon Inj) 1 mg UD PRN SQ 09/13/16 15:00 10/13/16 14:59 Acetaminophen 100 ml @ 400 mls/hr Q8H PRN IV 09/13/16 15:00 10/13/16 14:59 Morphine Sulfate (MoRPHine SULFATE INJ) 2 mg Q2H PRN IV 09/13/16 15:00 09/27/16 14:59 Morphine Sulfate (MoRPHine SULFATE INJ) 4 mg Q2H PRN IV 09/13/16 15:00 09/27/16 14:59 Vancomycin HCl (Consult) 1 ea UD PRN N/A 09/13/16 15:00 10/13/16 14:59 Albuterol (Ventolin Hfa Inhaler) 2 puffs Q4H PRN INH 09/13/16 15:00 10/13/16 14:59 09/16/16 00:53 2 PUFFS Montelukast Sodium (Singulair Tab) 10 mg DAILY PO 09/14/16 09:00 10/13/16 20:59 09/16/16 08:16 10 MG Heparin Sodium/ Dextrose 500 ml @ 46 mls/hr [id number] PRN IV 09/14/16 08:00 10/14/16 07:59 09/16/16 02:19 46 MLS/HR Atorvastatin Calcium (Lipitor Tab) 40 mg QPM PO 09/14/16 21:00 10/14/16 20:59 09/15/16 20:51 40 MG Lisinopril (Zestril Tab) 5 mg QPM PO 09/14/16 21:00 10/14/16 20:59 09/15/16 20:52 5 MG Lorazepam (Ativan Tab) 1 mg QID PRN PO 09/15/16 00:07 10/13/16 00:06 09/15/16 15:59 1 MG Diltiazem HCl (Cardizem Tab) 60 mg TID PO 09/15/16 14:00 10/14/16 14:59 09/16/16 08:17 60 MG Hydrochlorothiazide (Hydrochlorothiazide Tab) 12.5 mg QAM PO 09/16/16 09:00 10/16/16 08:59 09/16/16 08:17 12.5 MG Gadobutrol (Gadavist) 12 mmol UD PRN IV 09/15/16 18:15 09/19/16 18:14 Magnesium Oxide (Mag-Ox Tab) 400 mg BID PO 09/16/16 21:00 10/16/16 20:59 Objective Vital Signs Date Time Temp Pulse Resp B/P (MAP) Pulse Ox O2 Delivery O2 Flow Rate FiO2 09/16/16 12:00 Room Air 09/16/16 11:20 36.4 77 19 123/80 (94) 97 Nasal Cannula 3.0 09/16/16 08:00 Room Air 09/16/16 07:16 36.9 86 24 135/94 (108) 94 Room Air 09/16/16 04:00 92 Nasal Cannula 2.0 09/16/16 03:51 36.4 72 22 128/64 (85) 92 Nasal Cannula 2.0 09/15/16 23:59 92 Nasal Cannula 2.0 09/15/16 23:58 36.5 74 18 120/71 (87) 92 Nasal Cannula 2.0 09/15/16 20:00 94 Room Air 09/15/16 19:59 36.4 86 20 132/82 (99) 94 Room Air 09/15/16 16:00 36.6 86 19 108/76 (87) 94 Room Air 09/15/16 16:00 Room Air Physical Exam General Appearance: WD/WN, no apparent distress, + obese Eyes: normal inspection, sclerae normal ENT: normal ENT inspection, pharynx normal Neck: supple, no adenopathy, trachea midline Respiratory/Chest: chest non-tender, no respiratory distress, no accessory muscle use, + rales Cardiovascular: no gallop, no murmur, + irregularly irregular Abdomen: normal bowel sounds, non tender, soft, no organomegaly Extremities: non-tender, no calf tenderness Neurologic/Psychiatric: alert, oriented x 3 Skin: normal color, no rash, + pertinent finding (Left 3rd toe unchanged) Lymphatic: no adenopathy Laboratory Results RUN DATE: 09/15/16 [facility] LAB PAGE 1 RUN TIME: 07 Specimen Inquiry PATIENT: MILA RUVALCABA LOC: [facility] U # : [id number] AGE/SX: 56/F ROOM: S230 REG : 09/13/[address]: John Dubon D.O : 1960 BED: 2 DIS : STATUS: ADM IN TLOC: SPEC #: [id number] MARY KATE: 09/13/16 STATUS: RES REQ #: [id number] RECD: 09/13/[address]: Johnathan Huff M.D. SOURCE: BLOOD ENTR: 09/13/16-1401 [facility] DR: Venkat Coronel M.D. SPDESC: Parveen Fishman M.D. ORDERED: BLOOD CULTURE Procedure Result Verified Site BLD CULT Preliminary 09/15/16 NO GROWTH TO DATE. Last 24 Hours Test 09/15/16 16:44 09/15/16 18:30 09/15/16 20:34 09/16/16 00:55 Bedside Glucose 118 mg/dl 129 mg/dl Activated Partial Thromboplast Time 40.5 SECONDS 59.5 SECONDS Partial Thromboplastin Ratio 1.6 2.3 Test 09/16/16 05:33 09/16/16 06:39 09/16/16 11:03 White Blood Count 7.61 K/uL Red Blood Count 3.22 M/uL Hemoglobin 9.9 g/dL Hematocrit 32.3 % Mean Corpuscular Volume 100.3 fL Mean Corpuscular Hemoglobin 30.7 pg Mean Corpuscular Hemoglobin Concent 30.7 g/dl Platelet Count 213 K/uL Mean Platelet Volume 9.8 fL Neutrophils (%) (Auto) 64.1 % Lymphocytes (%) (Auto) 21.6 % Monocytes (%) (Auto) 10.2 % Eosinophils (%) (Auto) 3.3 % Basophils (%) (Auto) 0.4 % Neutrophils # (Auto) 4.88 K/uL Lymphocytes # (Auto) 1.64 K/uL Monocytes # (Auto) 0.78 K/uL Eosinophils # (Auto) 0.25 K/uL Basophils # (Auto) 0.03 K/uL RDW Standard Deviation 52.1 fL RDW Coefficient of Variation 14.2 % Immature Granulocyte % (Auto) 0.4 % Immature Granulocyte # (Auto) 0.03 K/uL Prothrombin Time 12.2 SECONDS Prothromb Time International Ratio 1.1 Activated Partial Thromboplast Time 53.2 SECONDS Partial Thromboplastin Ratio 2.0 Sodium Level 133 mmol/L Potassium Level 4.7 mmol/L Chloride Level 98 mmol/L Carbon Dioxide Level 28 mmol/L Anion Gap 7.0 mmol/L Blood Urea Nitrogen 10 mg/dl Creatinine 0.48 mg/dl Est Creatinine Clear Calc Drug Dose 168.2 ml/min Estimated GFR () 128.9 Estimated GFR (Non- 111.2 BUN/Creatinine Ratio 21.1 Random Glucose 112 mg/dl Calcium Level 8.1 mg/dl Magnesium Level 1.6 mg/dl Bedside Glucose 125 mg/dl 106 mg/dl Patient Name: MILA RUVALCABA Unit Number: [id number] Dictated: 09/15/161825 Transcribed: 09/15/161825 JA Printed Date/Time: [~ rep prt dt]/[~ rep prt tm] [~ rep ct labl] - [~ rep ct ivnm] [facility] [place] [address] Dictated: 09/15/161825 Transcribed: 09/15/161825 JA Printed Date/Time: [~ rep prt dt]/[~ rep prt tm] [~ rep ct labl] - [~ rep ct ivnm] [~ rep ct add3]] MRI OF THE LEFT FOREFOOT WITH AND WITHOUT CONTRAST CLINICAL HISTORY: Left third toe osteomyelitis. Sepsis. Preoperative planning. COMPARISON STUDY: Left third toe radiographs September 13, 2016. TECHNIQUE: Utilizing 1.5 Chiara magnet and dedicated coil, multiplanar, multiecho imaging of the left forefoot was performed pre and postcontrast administration. Injection of 12 cc of Gadavist IV was uneventful. FINDINGS: There is extensive subcutaneous edema of the left forefoot and midfoot. There is extensive soft tissue swelling consistent with cellulitis of the left third toe. Marked marrow edema is noted within the distal phalanx of the left third toe with complete loss of normal T1 signal. This is consistent with osteomyelitis with bony destruction. There is also moderate marrow edema within the middle phalanx of the left third toe with slightly diminished signal on the T1-weighted sequence. Similarly, there is mild marrow edema within the proximal phalanx of the left third toe is slightly diminished T1 signal. No additional sites of marrow edema are present. A wound of the medial aspect of the left third toe is noted with a subjacent 6 mm x 5 to rim-enhancing fluid collection which may reflect a small abscess which extends to the bone of the distal phalanx. 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 Associated cellulitis, wound and suspected 6 mm abscess which extends from the skin to the distal phalanx. In addition, marrow edema within the proximal and middle phalanges of the left third toe which could reflect developing osteomyelitis or osteitis. These bones are also abnormal. Electronically signed by: Jose Ramon Bates M.D. 09/15/2016 6:36 PM Dictated Date/Time: 09/15/2016 6:26 PM The status of this report is Signed. Draft = Not yet reviewed or approved by Radiologist. Signed = Reviewed and approved by Radiologist. <AttendingPhy>John Dubon D.O.</AttendingPhy> <FamilyPhy>Parveen Fishman M.D.</FamilyPhy> <PrimaryPhy>Parveen Fishman M.D.</PrimaryPhy> <UnitNumber> [id number]</UnitNumber> <VisitNumber>[id number]</VisitNumber> <PatientName> JOSÉ LUISJAMESLUCYLILLIAMMILA Maryjane</PatientName> <DateOfBirth>1960</DateOfBirth> < Location>[facility]</Location> <ServiceDate>09/13/16</ServiceDate> <MNE>ESINDI</MNE> < OrderingPhy>Vishnu Orozco M.D.</OrderingPhy> <OrderingPhyMNE>f rep ord dr peña</ OrderingPhyMNE> <DictatingPhyMNE>f rep dict dr peña</DictatingPhyMNE> <CCListMNE> f rep ct casey</CCListMNE> <AdmittingPhyMNE>f pt admit dr peña</AdmittingPhyMNE> < AttendingPhyMNE>f pt attend dr peña</AttendingPhyMNE> <ConsultingPhyMNE>f pt consult dr peña</ConsultingPhyMNE> <FamilyPhyMNE>f pt fam dr peña</FamilyPhyMNE> <OtherPhyMNE>f pt other dr peña</OtherPhyMNE> < PrimaryPhyMNE>f pt prim care dr peña</PrimaryPhyMNE> <ReferringPhyMNE>f pt referring dr peña</ReferringPhyMNE> Assessment and Plan Osteomyelitis of toe, chronic infection of right TKA. Will continue patient on aztreonam and vancomycin, and will discontinue clindamycin. Will discuss further management with all involved.
--- NOTE | 2016-09-16 16:25 | Orthopedic Progress Note ---
Orthopedic Progress Note Date of Service Sep 16, 2016. Subjective Reports: feeling well, Denies: complaints Additional Notes: Pt sitting in chair on arrival into room. Pt got back into bed easily. Understands that she is to have the 3rd toe amputated when the cellulitis is better and when medically stable. She states her new heat medication is working better? No new complaints. Pt worried that she would need the whole foot removed. After reviewing the MRI, assured her that this was not the plan and that the infection looks only to be in the 3rd toe and not the metatarsal bone. Objective A&O x3, toes mobile Left 3rd toe examined. Distal tip darkened and ulceration noted with drainage. Mild odor. She still has some residual cellulitis of the foot and up the leg stopping just below the knee. (She states it looks better today) Date Time Temp Pulse Resp B/P (MAP) Pulse Ox O2 Delivery O2 Flow Rate FiO2 09/16/16 14:56 36.8 80 20 124/84 (97) 94 Room Air 09/16/16 12:00 Room Air 09/16/16 11:20 36.4 77 19 123/80 (94) 97 Nasal Cannula 3.0 09/16/16 08:00 Room Air 09/16/16 07:16 36.9 86 24 135/94 (108) 94 Room Air 09/16/16 04:00 92 Nasal Cannula 2.0 09/16/16 03:51 36.4 72 22 128/64 (85) 92 Nasal Cannula 2.0 09/15/16 23:59 92 Nasal Cannula 2.0 09/15/16 23:58 36.5 74 18 120/71 (87) 92 Nasal Cannula 2.0 09/15/16 20:00 94 Room Air 09/15/16 19:59 36.4 86 20 132/82 (99) 94 Room Air Laboratory Results 24 Hours: Test 09/16/16 05:33 White Blood Count 7.61 K/uL Red Blood Count 3.22 M/uL Hemoglobin 9.9 g/dL Hematocrit 32.3 % Mean Corpuscular Volume 100.3 fL Mean Corpuscular Hemoglobin 30.7 pg Mean Corpuscular Hemoglobin Concent 30.7 g/dl Platelet Count 213 K/uL Mean Platelet Volume 9.8 fL Neutrophils (%) (Auto) 64.1 % Lymphocytes (%) (Auto) 21.6 % Monocytes (%) (Auto) 10.2 % Eosinophils (%) (Auto) 3.3 % Basophils (%) (Auto) 0.4 % Neutrophils # (Auto) 4.88 K/uL Lymphocytes # (Auto) 1.64 K/uL Monocytes # (Auto) 0.78 K/uL Eosinophils # (Auto) 0.25 K/uL Basophils # (Auto) 0.03 K/uL Prothromb Time International Ratio 1.1 Prothrombin Time 12.2 SECONDS Additional Notes: MRI Results of Left foot: Findings consistent with 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 Associated cellulitis, wound and suspected 6 mm abscess which extends from the skin to the distal phalanx. In addition, marrow edema within the proximal and middle phalanges of the left third toe which could reflect developing osteomyelitis or osteitis. These bones are also abnormal. Assessment & Plan Assessment: Osteomyelitis 3rd left toe Plan: Continue IV antibx Plan for 3rd toe amputation when cellulitis has cleared and patient is medically stable.
[2016-09-16] MEDS: LORAZEPAM 1 MG TAB PO PRN (17:17)
[2016-09-16] MEDS: ESCITALOPRAM OXALATE 10 MG TAB PO SCH (21:24)
[2016-09-16] MEDS: MAGNESIUM OXIDE 400 MG TAB PO SCH (21:24)
[2016-09-16] MEDS: LISINOPRIL 5 MG TAB PO SCH (21:25)
[2016-09-16] MEDS: ZOLPIDEM TARTRATE 5 MG TAB PO PRN (21:25)
[2016-09-16] MEDS: ATORVASTATIN 40 MG TAB PO SCH (21:26)
[2016-09-17] MEDS: HEPARIN 25,000 UNIT/500ML D5W 500 ML IV PRN ×3 (01:12→22:06)
[2016-09-17] MEDS: AZTREONAM IV 2,000 MG in DEXTROSE 5% 100ML 100 ML IV SCH ×4 (01:13→23:38)
[2016-09-17 03:41] VITALS: BP 142/91; PULSE 91; TEMP 36.5; O2SAT 97
[2016-09-17] MEDS: VANCOMYCIN INJ 1,500 MG in SODIUM CHLORIDE 0.9% 500ML 500 ML IV SCH ×3 (04:20→23:38)
[2016-09-17 05:37] LABS: HEMATOCRIT 32.8 % (37-47); MEAN CELL VOLUME 101.5 fL (80-100); MEAN CORPUSCULAR HEMOGLOBIN 32.2 pg (25-34); MEAN CORPUSCULAR HGB CONC 31.7 g/dl (32-36); PLATELET COUNT 204 K/uL (130-400); RED BLOOD COUNT 3.23 M/uL (4.2-5.4); WHITE BLOOD COUNT 7.14 K/uL (4.8-10.8)
[2016-09-17 06:13] LABS: BUN/CREATININE RATIO 18.5 (10-20); CALCIUM 8.7 mg/dl (8.5-10.1); CREATININE 0.5 mg/dl (0.60-1.20); MAGNESIUM 1.9 mg/dl (1.8-2.4); POTASSIUM 4.7 mmol/L (3.5-5.1)
[2016-09-17 07:26] LABS: PARTIAL THROMBOPLASTIN RATIO 1.7
[2016-09-17 07:30] VITALS: BP 152/91; PULSE 107; TEMP 36.6; O2SAT 93
[2016-09-17] MEDS: CETIRIZINE HCL 10 MG TAB PO SCH (07:51)
[2016-09-17] MEDS: DILTIAZEM HCL 30 MG TAB PO SCH ×3 (07:51→19:59)
[2016-09-17] MEDS: INSULIN ASPART 100 UNITS/ML 3 ML PEN SC SCH ×4 (07:51→19:54)
[2016-09-17] MEDS: BuPROPion SR 150 MG TABCR PO SCH (07:51)
[2016-09-17] MEDS: CYANOCOBALAMIN 500 MCG TAB (VIT B-12) PO SCH (07:51)
[2016-09-17] MEDS: CHOLECALCIFEROL 1000 INTER.UNIT TAB PO SCH (07:52)
[2016-09-17] MEDS: LACTOBACILLUS ACIDOPHILUS (FLORANEX) TAB PO SCH ×3 (07:52→16:07)
[2016-09-17] MEDS: MAGNESIUM OXIDE 400 MG TAB PO SCH ×2 (07:52→19:58)
[2016-09-17] MEDS: HYDROCHLOROTHIAZIDE 25 MG TAB PO SCH (07:53)
[2016-09-17] MEDS: METOPROLOL SUCC 50MG EXT REL TAB PO SCH (07:53)
[2016-09-17] MEDS: MONTELUKAST SOD 10 MG TAB PO SCH (07:53)
[2016-09-17] MEDS: CALCIUM 600MG + VIT D 400 IU TAB PO SCH ×2 (07:54→19:58)
[2016-09-17] MEDS ORDERED: HEPARIN IV BOLUS 3,000 UNIT in SYRINGE 0 ML IV ONE (08:45)
[2016-09-17] MEDS: ACETAMINOPHEN 325 MG TAB PO PRN (09:16)
--- NOTE | 2016-09-17 10:50 | Hospitalist Progress Note ---
Hospitalist Progress Note Date of Service Sep 17, 2016. Subjective Pt evaluation today including: conversation w/ patient, physical exam, chart review, lab review, review of inpatient medication list Pain: 4/10 dull throbbing pain left 3rd toe PO Intake: Tolerating PO diet Voiding: no voiding problems Patient reports some worsening pain in her left 3rd toe, rating it a 4/10 in severity. She describes it as dull and throbbing. She states that the erythema and swelling of her left foot have improved, however. Her numbness/ tingling in her left toes/feet have improved as the swelling has improved. She complains of diarrhea and denies melena or hematochezia. She reports shortness of breath at night when trying to sleep, but is fine during the day. The patient denies fevers, chills, sweats, chest pain, palpitations, claudication, cough, wheezing, nausea, vomiting, abdominal pain, dysuria, hematuria, urinary retention, paralysis, weakness. Additional Comments: See HPI for pertinent positives and negatives. All other systems reviewed and negative. Objective Vital Signs Date Time Temp Pulse Resp B/P (MAP) Pulse Ox O2 Delivery O2 Flow Rate FiO2 09/17/16 08:00 Room Air 09/17/16 07:30 36.6 107 21 152/91 (111) 93 Room Air 09/17/16 04:00 Nasal Cannula 2.0 09/17/16 03:41 36.5 91 22 142/91 (108) 97 Nasal Cannula 2.0 09/16/16 23:59 Room Air 09/16/16 23:12 36.5 101 22 145/101 (116) 92 Room Air 09/16/16 20:00 Room Air 09/16/16 18:44 36.7 62 18 128/83 (98) 95 Room Air 09/16/16 16:00 Room Air 09/16/16 14:56 36.8 80 20 124/84 (97) 94 Room Air 09/16/16 12:00 Room Air 09/16/16 11:20 36.4 77 19 123/80 (94) 97 Nasal Cannula 3.0 Physical Exam Notes: General appearance: +Morbidly obese. Well-developed, well-nourished, no apparent distress Head: Normocephalic, atraumatic Eyes: Normal inspection, PERRL, EOMI ENT: Normal ENT inspection, hearing grossly normal, pharynx normal Neck: Supple, no JVD, trachea midline Respiratory/Chest: +Decreased breath sounds. Lungs clear to auscultation, normal breath sounds, no respiratory distress Cardiovascular: +Irregularly irregular. Regular rate. No gallop, no murmur Abdomen/GI: +Lower abdomen distended but improved from yesterday. Normal bowel sounds, non-tender, soft Extremities/Musculoskeletal: +1+ pitting edema. Erythema left 3rd toe and dorsal aspect left foot improving. Normal inspection, no calf tenderness, no pedal edema Neurological/Psych: Alert, normal mood/affect, oriented x 3 Skin: Normal color, warm/dry, no rash Laboratory Results Last 24 Hours Test 09/16/16 11:03 09/16/16 16:07 09/16/16 19:57 09/17/16 05:25 Bedside Glucose 106 mg/dl 153 mg/dl 108 mg/dl White Blood Count 7.14 K/uL Red Blood Count 3.23 M/uL Hemoglobin 10.4 g/dL Hematocrit 32.8 % Mean Corpuscular Volume 101.5 fL Mean Corpuscular Hemoglobin 32.2 pg Mean Corpuscular Hemoglobin Concent 31.7 g/dl RDW Standard Deviation 52.6 fL RDW Coefficient of Variation 14.2 % Platelet Count 204 K/uL Mean Platelet Volume 10.0 fL Sodium Level 135 mmol/L Potassium Level 4.7 mmol/L Chloride Level 100 mmol/L Carbon Dioxide Level 28 mmol/L Anion Gap 7.0 mmol/L Blood Urea Nitrogen 9 mg/dl Creatinine 0.50 mg/dl Est Creatinine Clear Calc Drug Dose 161.5 ml/min Estimated GFR () 127.2 Estimated GFR (Non- 109.7 BUN/Creatinine Ratio 18.5 Random Glucose 118 mg/dl Calcium Level 8.7 mg/dl Magnesium Level 1.9 mg/dl Test 09/17/16 05:59 09/17/16 07:08 Bedside Glucose 119 mg/dl Activated Partial Thromboplast Time 43.1 SECONDS Partial Thromboplastin Ratio 1.7 Assessment and Plan 56 y/o female with PMHx of T2DM, A Fib S/P Cardioversion x 2, HTN, HLD, B12 Deficiency, and Chronic R Leg Infection on Bactrim who is admitted for L 3rd toe osteomyelitis. Left 3rd Toe Osteomyelitis w/overlying cellulitis--stable - Aztreonam 2 g IV Q8H and Vancomycin per pharmacy dosing. Day #5 - ID consulted, appreciate recs: d/c clindamycin. Continue aztreonam and vancomycin - Blood cultures NGTD X4 - PICC line inserted 09/15 - Orthopedics consulted, appreciate recs: Amputate left 3rd toe when cellulitis clears and medically stable. 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 Associated cellulitis, wound and suspected 6 mm abscess which extends from the skin to the distal phalanx. In addition, marrow edema within the proximal and middle phalanges of the left third toe which could reflect developing osteomyelitis or osteitis. These bones are also abnormal. - Wound following - appreciate input and dressing/cleaning recommendations Atrial Fibrillation with RVR--stable, rate controlled - Transfer to telemetry 09/14. Pt remained in afib with HR 70s-90s overnight, low 100s this morning before meds - Cardiology consulted, appreciate recs: Focus on rate control strategy as opposed to rhythm control, as pt is likely actually in permanent afib. D/C flecainide. Add diltiazem to metoprolol. Increase diltiazem to 60 mg PO TID. - Continue metoprolol succinate 200 mg PO qd - Increase diltiazem from 30 mg PO TID to 60 mg PO TID - Hold Xarelto in anticipation of possible amputation - converted to Heparin gtt. Hold 6 hours prior to surgery Hypomagnesemia--improving -Magnesium 1.9 on 09/17 -Continue magnesium oxide 400 mg PO BID -Continue to monitor, goal magnesium > 2 HTN--stable - Resume HCTZ 12.5 mg PO qd - Continue lisinopril 5 mg PO qd Diabetes mellitus type 2--stable - HgbA1c 6.1 on 09/15 - Hold Metformin - Insulin sliding scale - Check BSGs q ac and qhs Macrocytic Anemia - B12 Deficiency--stable - Continue B12 1000 mcg PO qd - Hgb stable HLD -Continue atorvastatin 40 mg PO qd Depression/Anxiety - Wellbutrin 150 mg PO qd and Lexapro 10 mg PO qd - Ativan increased to 1 mg PO QID prn anxiety DVT prophylaxis -Heparin ip -SCDs Code Status -Level I, FULL RESUSCITATION STATUS
--- NOTE | 2016-09-17 11:01 | Infectious Disease Progress Nt ---
Progress Note Date of Service Sep 17, 2016. Subjective Pt evaluation today including: conversation w/ patient, physical exam, chart review, lab review, review of studies, conversation w/ student union consultant, review of inpatient medication list Still with severe toe pain, 3-4/10 in intensity. Erythema foot and toe less. No fever. Tolerating Abx. All Other Systems: Reviewed and Negative Medications Current Inpatient Medications Medications (Trade) Dose Ordered Sig/Flash Route Start Time Stop Time Status Last Admin Dose Admin Acetaminophen (Tylenol Tab) 650 mg Q4H PRN PO 09/13/16 14:30 10/13/16 14:29 09/17/16 09:16 650 MG Zolpidem Tartrate (Ambien Tab) 5 mg HSZ PRN PO 09/13/16 14:30 10/13/16 14:29 09/16/16 21:25 5 MG Bupropion HCl (Wellbutrin-Sr Tab) 150 mg DAILY PO 09/14/16 09:00 10/14/16 08:59 09/17/16 07:51 150 MG Cetirizine HCl (zyrTEC TAB) 10 mg DAILY PO 09/14/16 09:00 10/14/16 08:59 09/17/16 07:51 10 MG Cholecalciferol (Vitamin D Tab) 1,000 inter.unit DAILY PO 09/14/16 09:00 10/14/16 08:59 09/17/16 07:52 1,000 INTER.UNIT Cyanocobalamin (Vitamin B-12 Tab) 1,000 mcg DAILY PO 09/14/16 09:00 10/14/16 08:59 09/17/16 07:51 1,000 MCG Escitalopram Oxalate (Lexapro Tab) 10 mg HS PO 09/13/16 21:00 10/13/16 20:59 09/16/16 21:24 10 MG Metoprolol Succinate (Toprol Xl Tab) 200 mg DAILY PO 09/14/16 09:00 10/14/16 08:59 09/17/16 07:53 200 MG Calcium/Vitamin D (Caltrate Plus Tab) 1 tab BID PO 09/13/16 21:00 10/13/16 20:59 09/17/16 07:54 1 TAB Vancomycin HCl 1500 mg/Sodium Chloride 530 ml @ 200 mls/hr Q8H IV 09/14/16 00:00 10/26/16 00:00 Future Hold 09/17/16 04:20 200 MLS/HR Aztreonam 2000 mg/ Dextrose 110 ml @ 100 mls/hr Q8@0000,0800,1600 IV 09/14/16 00:00 10/26/16 00:00 09/17/16 07:51 100 MLS/HR Lactobacillus Acidophilus (Floranex Tab) 4 tab TIDM PO 09/13/16 17:00 10/13/16 17:59 09/17/16 10:41 4 TAB Ondansetron HCl (Zofran Inj) 4 mg Q6H PRN IV 09/13/16 15:00 10/13/16 14:59 09/15/16 07:30 4 MG Insulin Aspart (novoLOG ASPART) SLIDING SCALE If C... ACHS SC 09/13/16 17:00 10/13/16 16:59 09/17/16 07:51 3 UNITS Glucose (Glucose 40% Gel) UD PRN PO 09/13/16 15:00 10/13/16 14:59 Glucose (Glucose Chew Tab) 1 tabs UD PRN PO 09/13/16 15:00 10/13/16 14:59 Dextrose (Dextrose 50% 50ML Syringe) 50 ml UD PRN IV 09/13/16 15:00 10/13/16 14:59 Glucagon (Glucagon Inj) 1 mg UD PRN SQ 09/13/16 15:00 10/13/16 14:59 Acetaminophen 100 ml @ 400 mls/hr Q8H PRN IV 09/13/16 15:00 10/13/16 14:59 Morphine Sulfate (MoRPHine SULFATE INJ) 2 mg Q2H PRN IV 09/13/16 15:00 09/27/16 14:59 Morphine Sulfate (MoRPHine SULFATE INJ) 4 mg Q2H PRN IV 09/13/16 15:00 09/27/16 14:59 Vancomycin HCl (Consult) 1 ea UD PRN N/A 09/13/16 15:00 10/13/16 14:59 Albuterol (Ventolin Hfa Inhaler) 2 puffs Q4H PRN INH 09/13/16 15:00 10/13/16 14:59 09/16/16 00:53 2 PUFFS Montelukast Sodium (Singulair Tab) 10 mg DAILY PO 09/14/16 09:00 10/13/16 20:59 09/17/16 07:53 10 MG Heparin Sodium/ Dextrose 500 ml @ 49 mls/hr [id number] PRN IV 09/14/16 08:00 10/14/16 07:59 09/17/16 10:42 49 MLS/HR Atorvastatin Calcium (Lipitor Tab) 40 mg QPM PO 09/14/16 21:00 10/14/16 20:59 09/16/16 21:26 40 MG Lisinopril (Zestril Tab) 5 mg QPM PO 09/14/16 21:00 10/14/16 20:59 09/16/16 21:25 5 MG Lorazepam (Ativan Tab) 1 mg QID PRN PO 09/15/16 00:07 10/13/16 00:06 09/16/16 17:17 1 MG Diltiazem HCl (Cardizem Tab) 60 mg TID PO 09/15/16 14:00 10/14/16 14:59 09/17/16 07:51 60 MG Hydrochlorothiazide (Hydrochlorothiazide Tab) 12.5 mg QAM PO 09/16/16 09:00 10/16/16 08:59 09/17/16 07:53 12.5 MG Gadobutrol (Gadavist) 12 mmol UD PRN IV 09/15/16 18:15 09/19/16 18:14 Magnesium Oxide (Mag-Ox Tab) 400 mg BID PO 09/16/16 21:00 10/16/16 20:59 09/17/16 07:52 400 MG Heparin Sodium (Porcine) (Heparin 10 Unit/ ml 5 ml Flush) 5 ml PRN PRN FLUSH 09/17/16 01:30 10/17/16 01:29 Objective Vital Signs Date Time Temp Pulse Resp B/P (MAP) Pulse Ox O2 Delivery O2 Flow Rate FiO2 09/17/16 08:00 Room Air 09/17/16 07:30 36.6 107 21 152/91 (111) 93 Room Air 09/17/16 04:00 Nasal Cannula 2.0 09/17/16 03:41 36.5 91 22 142/91 (108) 97 Nasal Cannula 2.0 09/16/16 23:59 Room Air 09/16/16 23:12 36.5 101 22 145/101 (116) 92 Room Air 09/16/16 20:00 Room Air 09/16/16 18:44 36.7 62 18 128/83 (98) 95 Room Air 09/16/16 16:00 Room Air 09/16/16 14:56 36.8 80 20 124/84 (97) 94 Room Air 09/16/16 12:00 Room Air 09/16/16 11:20 36.4 77 19 123/80 (94) 97 Nasal Cannula 3.0 Physical Exam General Appearance: WD/WN, no apparent distress, + obese Eyes: normal inspection, sclerae normal ENT: normal ENT inspection, pharynx normal Neck: supple, no adenopathy, trachea midline Respiratory/Chest: chest non-tender, lungs clear, normal breath sounds, no respiratory distress Cardiovascular: no gallop, no murmur, + irregularly irregular Abdomen: normal bowel sounds, non tender, soft, no organomegaly Extremities: no calf tenderness, normal capillary refill Neurologic/Psychiatric: alert, oriented x 3 Skin: normal color, no rash, + pertinent finding (slightly less erythema left 3rd toe and foot) Laboratory Results Last 24 Hours Test 09/16/16 11:03 09/16/16 16:07 09/16/16 19:57 09/17/16 05:25 Bedside Glucose 106 mg/dl 153 mg/dl 108 mg/dl White Blood Count 7.14 K/uL Red Blood Count 3.23 M/uL Hemoglobin 10.4 g/dL Hematocrit 32.8 % Mean Corpuscular Volume 101.5 fL Mean Corpuscular Hemoglobin 32.2 pg Mean Corpuscular Hemoglobin Concent 31.7 g/dl RDW Standard Deviation 52.6 fL RDW Coefficient of Variation 14.2 % Platelet Count 204 K/uL Mean Platelet Volume 10.0 fL Sodium Level 135 mmol/L Potassium Level 4.7 mmol/L Chloride Level 100 mmol/L Carbon Dioxide Level 28 mmol/L Anion Gap 7.0 mmol/L Blood Urea Nitrogen 9 mg/dl Creatinine 0.50 mg/dl Est Creatinine Clear Calc Drug Dose 161.5 ml/min Estimated GFR () 127.2 Estimated GFR (Non- 109.7 BUN/Creatinine Ratio 18.5 Random Glucose 118 mg/dl Calcium Level 8.7 mg/dl Magnesium Level 1.9 mg/dl Test 09/17/16 05:59 09/17/16 07:08 Bedside Glucose 119 mg/dl Activated Partial Thromboplast Time 43.1 SECONDS Partial Thromboplastin Ratio 1.7 Assessment and Plan Osteomyelitis of toe, chronic infection of right TKA. Will continue patient on aztreonam and vancomycin, and have discontinued clindamycin. Will discuss further management with all involved.
[2016-09-17 11:26] VITALS: BP 102/68; PULSE 75; TEMP 36.8; O2SAT 90
[2016-09-17] MEDS ORDERED: VANCOMYCIN TROUGH SCH (11:30)
--- NOTE | 2016-09-17 13:53 | Pharmacy Progress Note ---
Pharmacy Abx Dose Progress Nt Date of Service Sep 17, 2016. Pharmacy Dosing Scope The patient is currently receiving the following antimicrobial agents per Pharmacy consult: Vancomycin 1500 mg IV every 8 hours {also receiving Azactam 2g IV Q8hrs - not per pharmacy consult} Objective Height (Feet): 5 Height (Inches): 3.00 Weight (Kilograms): 122.000 Vital Signs (Past 12Hrs) Vital Signs Past 12 Hours Date Time Temp Pulse Resp B/P (MAP) Pulse Ox O2 Delivery O2 Flow Rate FiO2 09/17/16 11:44 Room Air 09/17/16 11:26 36.8 75 20 102/68 (79) 90 Room Air 09/17/16 08:00 Room Air 09/17/16 07:30 36.6 107 21 152/91 (111) 93 Room Air 09/17/16 04:00 Nasal Cannula 2.0 09/17/16 03:41 36.5 91 22 142/91 (108) 97 Nasal Cannula 2.0 Lab Results (24Hrs) Laboratory Tests (24 Hours) Test 09/17/16 05:25 White Blood Count 7.14 K/uL (4.8-10.8) Micro Results Date/Time Source Procedure Growth Status 09/13/16 14:52 Blood Blood Culture - Preliminary NO GROWTH TO DATE. Resulted 09/13/16 14:41 Blood Blood Culture - Preliminary NO GROWTH TO DATE. Resulted 09/13/16 12:57 Blood Blood Culture - Preliminary NO GROWTH TO DATE. Resulted 09/13/16 12:48 Blood Blood Culture - Preliminary NO GROWTH TO DATE. Resulted Risk Factors for Resistance * Antimicrobial use within the last 90 days : chronic bactrim use Assessment & Plan Assessment 56 year old female receiving Vancomycin & Azactam for treatment of osteomyelitis of toe and chronic infection of right TKA Day # 5 of antimicrobial therapy Plan Vancomycin IV * Trough level of 22.4 mcg/mL is slightly supratherapeutic. Risk of further vancomycin accumulation and increased vancomycin trough level with short dosing interval in obesity * Continue dose of 1,500 mg IV but change to every 10 hours * Goal trough level for osteo : 15 to 20 mcg/mL * Did not reorder a trough level at this time. Will re-order in a few days or sooner if renal function changes. * Less than traditional dose interval selected due to likelihood of drug accumulation in obese patient Pharmacy will continue to follow and will adjust dose/frequency as necessary. Thank you.
[2016-09-17 15:36] VITALS: BP 126/78; PULSE 77; TEMP 36.5; O2SAT 96
[2016-09-17 15:41] LABS: PARTIAL THROMBOPLASTIN RATIO 2.3
--- NOTE | 2016-09-17 16:35 | Orthopedic Progress Note ---
Orthopedic Progress Note Date of Service Sep 17, 2016. Subjective Reports: feeling well, Denies: complaints Objective Cellulitis continues to resolve. No new sx's. Swelling slowly resolving. Date Time Temp Pulse Resp B/P (MAP) Pulse Ox O2 Delivery O2 Flow Rate FiO2 09/17/16 16:00 Room Air 09/17/16 15:36 36.5 77 17 126/78 (94) 96 Room Air 09/17/16 11:44 Room Air 09/17/16 11:26 36.8 75 20 102/68 (79) 90 Room Air 09/17/16 08:00 Room Air 09/17/16 07:30 36.6 107 21 152/91 (111) 93 Room Air 09/17/16 04:00 Nasal Cannula 2.0 09/17/16 03:41 36.5 91 22 142/91 (108) 97 Nasal Cannula 2.0 09/16/16 23:59 Room Air 09/16/16 23:12 36.5 101 22 145/101 (116) 92 Room Air 09/16/16 20:00 Room Air 09/16/16 18:44 36.7 62 18 128/83 (98) 95 Room Air Laboratory Results 24 Hours: Test 09/17/16 05:25 Hematocrit 32.8 % Hemoglobin 10.4 g/dL Assessment & Plan Assessment: Osteomyelitis 3rd left toe Plan: Continue IV antibx Plan for 3rd toe amputation Thursday with Dr Contreras Heparin will need to be stopped 6 hours prior to surgery. Inhouse Planning Pain Management: Morphine DVT Prophylaxis: Heparin Drip
[2016-09-17] MEDS: LORAZEPAM 1 MG TAB PO PRN (18:37)
[2016-09-17 18:51] VITALS: BP 137/80; PULSE 76; TEMP 36.9; O2SAT 96
[2016-09-17] MEDS: LISINOPRIL 5 MG TAB PO SCH (19:59)
[2016-09-17] MEDS: ATORVASTATIN 40 MG TAB PO SCH (19:59)
[2016-09-17] MEDS: ESCITALOPRAM OXALATE 10 MG TAB PO SCH (19:59)
[2016-09-17] MEDS: ZOLPIDEM TARTRATE 5 MG TAB PO PRN (22:37)
[2016-09-18] VITALS (8 sets, daily range): BP systolic 125–145; BP diastolic 73–92; PULSE 68–104; TEMP 36.5–36.9; O2SAT 92–98
[2016-09-18] MEDS: ACETAMINOPHEN 325 MG TAB PO PRN (03:17)
[2016-09-18 05:52] LABS: HEMATOCRIT 31.8 % (37-47); MEAN CELL VOLUME 103.2 fL (80-100); MEAN CORPUSCULAR HEMOGLOBIN 32.5 pg (25-34); MEAN CORPUSCULAR HGB CONC 31.4 g/dl (32-36); MEAN PLATELET VOLUME 10.4 fL (7.4-10.4); PLATELET COUNT 193 K/uL (130-400); RED BLOOD COUNT 3.08 M/uL (4.2-5.4)
[2016-09-18 06:25] LABS: BUN/CREATININE RATIO 11.7 (10-20); CALCIUM 8.6 mg/dl (8.5-10.1); CREATININE 0.49 mg/dl (0.60-1.20); MAGNESIUM 1.8 mg/dl (1.8-2.4); POTASSIUM 4.4 mmol/L (3.5-5.1)
[2016-09-18 07:52] LABS: PARTIAL THROMBOPLASTIN RATIO 1.9
[2016-09-18] MEDS: DILTIAZEM HCL 30 MG TAB PO SCH ×3 (08:06→21:05)
[2016-09-18] MEDS: AZTREONAM IV 2,000 MG in DEXTROSE 5% 100ML 100 ML IV SCH ×3 (08:06→23:59)
[2016-09-18] MEDS: CALCIUM 600MG + VIT D 400 IU TAB PO SCH ×2 (08:07→21:05)
[2016-09-18] MEDS: MONTELUKAST SOD 10 MG TAB PO SCH (08:07)
[2016-09-18] MEDS: MAGNESIUM OXIDE 400 MG TAB PO SCH ×2 (08:07→21:06)
[2016-09-18] MEDS: CYANOCOBALAMIN 500 MCG TAB (VIT B-12) PO SCH (08:07)
[2016-09-18] MEDS: LACTOBACILLUS ACIDOPHILUS (FLORANEX) TAB PO SCH ×3 (08:07→17:29)
[2016-09-18] MEDS: CETIRIZINE HCL 10 MG TAB PO SCH (08:07)
[2016-09-18] MEDS: BuPROPion SR 150 MG TABCR PO SCH (08:08)
[2016-09-18] MEDS: CHOLECALCIFEROL 1000 INTER.UNIT TAB PO SCH (08:08)
[2016-09-18] MEDS: METOPROLOL SUCC 50MG EXT REL TAB PO SCH (08:08)
[2016-09-18] MEDS: HYDROCHLOROTHIAZIDE 25 MG TAB PO SCH (08:08)
[2016-09-18] MEDS: INSULIN ASPART 100 UNITS/ML 3 ML PEN SC SCH ×4 (08:11→21:04)
--- NOTE | 2016-09-18 08:35 | Hospitalist Progress Note ---
Hospitalist Progress Note Date of Service Sep 18, 2016. Subjective Pt evaluation today including: conversation w/ patient, physical exam, chart review, lab review, review of inpatient medication list Pain: 5/10 aching pain left third toe PO Intake: Tolerating PO diet Voiding: no voiding problems Patient complains of 5/10 aching pain in her left third toe but reports otherwise feeling well. She states that sensation in her feet has been improving as the cellulitis improves, although she does have some baseline numbness/tingling. She does complain of waking up with headaches the last few days, but these resolve with Tylenol. She states that she has been short of breath and requiring oxygen at nighttime only. She also complains of frequent bowel movements, but states that they are not necessarily loose/watery. The patient denies fevers, chills, sweats, chest pain, palpitations, claudication, cough, wheezing, nausea, vomiting, abdominal pain, dysuria, hematuria, urinary retention, paralysis, weakness. Additional Comments: See HPI for pertinent positives and negatives. All other systems reviewed and negative. Objective Vital Signs Date Time Temp Pulse Resp B/P (MAP) Pulse Ox O2 Delivery O2 Flow Rate FiO2 09/18/16 08:21 36.7 104 20 125/78 (94) 94 Room Air 09/18/16 04:04 36.7 77 18 127/88 (101) 92 Room Air 09/18/16 04:00 Room Air 09/18/16 00:08 36.8 83 18 126/86 (99) 94 2.0 09/17/16 23:59 Room Air 09/17/16 20:00 Room Air 09/17/16 18:51 36.9 76 19 137/80 (99) 96 Room Air 09/17/16 16:00 Room Air 09/17/16 15:36 36.5 77 17 126/78 (94) 96 Room Air 09/17/16 11:44 Room Air 09/17/16 11:26 36.8 75 20 102/68 (79) 90 Room Air Physical Exam Notes: General appearance: +Morbidly obese. Well-developed, well-nourished, no apparent distress Head: Normocephalic, atraumatic Eyes: Normal inspection, PERRL, EOMI ENT: Normal ENT inspection, hearing grossly normal, pharynx normal Neck: Supple, no JVD, trachea midline Respiratory/Chest: +Decreased breath sounds. Lungs clear to auscultation, normal breath sounds, no respiratory distress Cardiovascular: +Irregularly irregular. Regular rate. No gallop, no murmur Abdomen/GI: +Lower abdomen distended, stable. Normal bowel sounds, non-tender , soft Extremities/Musculoskeletal: +2+ pitting edema. Erythema left 3rd toe and dorsal aspect left foot appears resolved/very minimal. Normal inspection, no calf tenderness, no pedal edema Neurological/Psych: Alert, normal mood/affect, oriented x 3 Skin: Normal color, warm/dry, no rash Laboratory Results Last 24 Hours Test 09/17/16 11:05 09/17/16 11:25 09/17/16 15:10 09/17/16 16:09 Bedside Glucose 103 mg/dl 112 mg/dl Vancomycin Level Trough 22.4 mcg/ml Activated Partial Thromboplast Time 60.0 SECONDS Partial Thromboplastin Ratio 2.3 Test 09/17/16 19:53 09/18/16 04:48 09/18/16 06:39 09/18/16 07:30 Bedside Glucose 88 mg/dl 106 mg/dl White Blood Count 7.70 K/uL Red Blood Count 3.08 M/uL Hemoglobin 10.0 g/dL Hematocrit 31.8 % Mean Corpuscular Volume 103.2 fL Mean Corpuscular Hemoglobin 32.5 pg Mean Corpuscular Hemoglobin Concent 31.4 g/dl RDW Standard Deviation 54.8 fL RDW Coefficient of Variation 14.6 % Platelet Count 193 K/uL Mean Platelet Volume 10.4 fL Sodium Level 137 mmol/L Potassium Level 4.4 mmol/L Chloride Level 101 mmol/L Carbon Dioxide Level 29 mmol/L Anion Gap 7.0 mmol/L Blood Urea Nitrogen 6 mg/dl Creatinine 0.49 mg/dl Est Creatinine Clear Calc Drug Dose 165.4 ml/min Estimated GFR () 128.0 Estimated GFR (Non- 110.5 BUN/Creatinine Ratio 11.7 Random Glucose 107 mg/dl Calcium Level 8.6 mg/dl Magnesium Level 1.8 mg/dl Activated Partial Thromboplast Time 50.6 SECONDS Partial Thromboplastin Ratio 1.9 Assessment and Plan 56 y/o female with PMHx of T2DM, A Fib S/P Cardioversion x 2, HTN, HLD, B12 Deficiency, and Chronic R Leg Infection on Bactrim who is admitted for L 3rd toe osteomyelitis. Left 3rd Toe Osteomyelitis w/overlying cellulitis--stable - Aztreonam 2 g IV Q8H and Vancomycin per pharmacy dosing. Day #6 - ID consulted, appreciate recs: d/c clindamycin. Continue aztreonam and vancomycin - Blood cultures NGTD X4 - PICC line inserted 09/15 - Orthopedics consulted, appreciate recs: Plan for amputation Thursday, 09/19. 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 Associated cellulitis, wound and suspected 6 mm abscess which extends from the skin to the distal phalanx. In addition, marrow edema within the proximal and middle phalanges of the left third toe which could reflect developing osteomyelitis or osteitis. These bones are also abnormal. - Wound following - appreciate input and dressing/cleaning recommendations Atrial Fibrillation with RVR--stable, rate controlled - Transfer to telemetry 09/14. Pt remained in afib with HR 70s-90s - Cardiology consulted, appreciate recs: Focus on rate control strategy as opposed to rhythm control, as pt is likely actually in permanent afib. D/C flecainide. Add diltiazem to metoprolol. Increase diltiazem to 60 mg PO TID. - Continue metoprolol succinate 200 mg PO qd - Increase diltiazem from 30 mg PO TID to 60 mg PO TID - Hold Xarelto in anticipation of possible amputation - converted to Heparin gtt. Hold 6 hours prior to surgery Hypomagnesemia--resolved, stable -Magnesium 1.8 on 09/18 -Continue magnesium oxide 400 mg PO BID -Continue to monitor HTN--stable - Resume HCTZ 12.5 mg PO qd - Continue lisinopril 5 mg PO qd Diabetes mellitus type 2--stable - HgbA1c 6.1 on 09/15 - Hold Metformin - Insulin sliding scale - Check BSGs q ac and qhs Macrocytic Anemia - B12 Deficiency--stable - Continue B12 1000 mcg PO qd - Hgb stable HLD -Continue atorvastatin 40 mg PO qd Depression/Anxiety - Wellbutrin 150 mg PO qd and Lexapro 10 mg PO qd - Ativan increased to 1 mg PO QID prn anxiety DVT prophylaxis -Heparin drip -SCDs Code Status -Level I, FULL RESUSCITATION STATUS
[2016-09-18] MEDS: VANCOMYCIN INJ 1,500 MG in SODIUM CHLORIDE 0.9% 500ML 500 ML IV SCH ×2 (09:28→20:11)
--- NOTE | 2016-09-18 09:47 | Infectious Disease Progress Nt ---
Progress Note Date of Service Sep 18, 2016. Subjective Pt evaluation today including: conversation w/ patient, physical exam, chart review, lab review, review of studies, conversation w/ professional benefits sales consultant, review of inpatient medication list In good spirits this AM. Less pain in toe, no fever, no other new complaints. Heart rate controlled. Tolerating antibiotics. All Other Systems: Reviewed and Negative Medications Current Inpatient Medications Medications (Trade) Dose Ordered Sig/Flash Route Start Time Stop Time Status Last Admin Dose Admin Acetaminophen (Tylenol Tab) 650 mg Q4H PRN PO 09/13/16 14:30 10/13/16 14:29 09/18/16 03:17 650 MG Zolpidem Tartrate (Ambien Tab) 5 mg HSZ PRN PO 09/13/16 14:30 10/13/16 14:29 09/17/16 22:37 5 MG Bupropion HCl (Wellbutrin-Sr Tab) 150 mg DAILY PO 09/14/16 09:00 10/14/16 08:59 09/18/16 08:08 150 MG Cetirizine HCl (zyrTEC TAB) 10 mg DAILY PO 09/14/16 09:00 10/14/16 08:59 09/18/16 08:07 10 MG Cholecalciferol (Vitamin D Tab) 1,000 inter.unit DAILY PO 09/14/16 09:00 10/14/16 08:59 09/18/16 08:08 1,000 INTER.UNIT Cyanocobalamin (Vitamin B-12 Tab) 1,000 mcg DAILY PO 09/14/16 09:00 10/14/16 08:59 09/18/16 08:07 1,000 MCG Escitalopram Oxalate (Lexapro Tab) 10 mg HS PO 09/13/16 21:00 10/13/16 20:59 09/17/16 19:59 10 MG Metoprolol Succinate (Toprol Xl Tab) 200 mg DAILY PO 09/14/16 09:00 10/14/16 08:59 09/18/16 08:08 200 MG Calcium/Vitamin D (Caltrate Plus Tab) 1 tab BID PO 09/13/16 21:00 10/13/16 20:59 09/18/16 08:07 1 TAB Aztreonam 2000 mg/ Dextrose 110 ml @ 100 mls/hr Q8@0000,0800,1600 IV 09/14/16 00:00 10/26/16 00:00 09/18/16 08:06 100 MLS/HR Lactobacillus Acidophilus (Floranex Tab) 4 tab TIDM PO 09/13/16 17:00 10/13/16 17:59 09/18/16 08:07 4 TAB Ondansetron HCl (Zofran Inj) 4 mg Q6H PRN IV 09/13/16 15:00 10/13/16 14:59 09/15/16 07:30 4 MG Insulin Aspart (novoLOG ASPART) SLIDING SCALE If C... ACHS SC 09/13/16 17:00 10/13/16 16:59 09/18/16 08:11 3 UNITS Glucose (Glucose 40% Gel) UD PRN PO 09/13/16 15:00 10/13/16 14:59 Glucose (Glucose Chew Tab) 1 tabs UD PRN PO 09/13/16 15:00 10/13/16 14:59 Dextrose (Dextrose 50% 50ML Syringe) 50 ml UD PRN IV 09/13/16 15:00 10/13/16 14:59 Glucagon (Glucagon Inj) 1 mg UD PRN SQ 09/13/16 15:00 10/13/16 14:59 Acetaminophen 100 ml @ 400 mls/hr Q8H PRN IV 09/13/16 15:00 10/13/16 14:59 Morphine Sulfate (MoRPHine SULFATE INJ) 2 mg Q2H PRN IV 09/13/16 15:00 09/27/16 14:59 Morphine Sulfate (MoRPHine SULFATE INJ) 4 mg Q2H PRN IV 09/13/16 15:00 09/27/16 14:59 Vancomycin HCl (Consult) 1 ea UD PRN N/A 09/13/16 15:00 10/13/16 14:59 Albuterol (Ventolin Hfa Inhaler) 2 puffs Q4H PRN INH 09/13/16 15:00 10/13/16 14:59 09/16/16 00:53 2 PUFFS Montelukast Sodium (Singulair Tab) 10 mg DAILY PO 09/14/16 09:00 10/13/16 20:59 09/18/16 08:07 10 MG Heparin Sodium/ Dextrose 500 ml @ 49 mls/hr [id number] PRN IV 09/14/16 08:00 10/14/16 07:59 09/17/16 22:06 49 MLS/HR Atorvastatin Calcium (Lipitor Tab) 40 mg QPM PO 09/14/16 21:00 10/14/16 20:59 09/17/16 19:59 40 MG Lisinopril (Zestril Tab) 5 mg QPM PO 09/14/16 21:00 10/14/16 20:59 09/17/16 19:59 5 MG Lorazepam (Ativan Tab) 1 mg QID PRN PO 09/15/16 00:07 10/13/16 00:06 09/17/16 18:37 1 MG Diltiazem HCl (Cardizem Tab) 60 mg TID PO 09/15/16 14:00 10/14/16 14:59 09/18/16 08:06 60 MG Hydrochlorothiazide (Hydrochlorothiazide Tab) 12.5 mg QAM PO 09/16/16 09:00 10/16/16 08:59 09/18/16 08:08 12.5 MG Gadobutrol (Gadavist) 12 mmol UD PRN IV 09/15/16 18:15 09/19/16 18:14 Magnesium Oxide (Mag-Ox Tab) 400 mg BID PO 09/16/16 21:00 10/16/16 20:59 09/18/16 08:07 400 MG Heparin Sodium (Porcine) (Heparin 10 Unit/ ml 5 ml Flush) 5 ml PRN PRN FLUSH 09/17/16 01:30 10/17/16 01:29 Vancomycin HCl 1500 mg/Sodium Chloride 530 ml @ 200 mls/hr Q10H IV 09/17/16 14:00 10/29/16 13:59 09/18/16 09:28 200 MLS/HR Objective Vital Signs Date Time Temp Pulse Resp B/P (MAP) Pulse Ox O2 Delivery O2 Flow Rate FiO2 09/18/16 08:21 36.7 104 20 125/78 (94) 94 Room Air 09/18/16 08:00 Room Air 09/18/16 04:04 36.7 77 18 127/88 (101) 92 Room Air 09/18/16 04:00 Room Air 09/18/16 00:08 36.8 83 18 126/86 (99) 94 2.0 09/17/16 23:59 Room Air 09/17/16 20:00 Room Air 09/17/16 18:51 36.9 76 19 137/80 (99) 96 Room Air 09/17/16 16:00 Room Air 09/17/16 15:36 36.5 77 17 126/78 (94) 96 Room Air 09/17/16 11:44 Room Air 09/17/16 11:26 36.8 75 20 102/68 (79) 90 Room Air Physical Exam General Appearance: WD/WN, no apparent distress Eyes: normal inspection, EOMI, sclerae normal ENT: normal ENT inspection, pharynx normal Neck: supple, no adenopathy, thyroid normal, trachea midline Respiratory/Chest: chest non-tender, lungs clear, normal breath sounds, no respiratory distress Cardiovascular: no gallop, no murmur, + irregularly irregular Abdomen: normal bowel sounds, non tender, soft, no organomegaly Extremities: non-tender, no calf tenderness Neurologic/Psychiatric: alert, oriented x 3 Skin: normal color, no rash, + pertinent finding (improving cellulitis) Lymphatic: no adenopathy Laboratory Results Last 24 Hours Test 09/17/16 11:05 09/17/16 11:25 09/17/16 15:10 09/17/16 16:09 Bedside Glucose 103 mg/dl 112 mg/dl Vancomycin Level Trough 22.4 mcg/ml Activated Partial Thromboplast Time 60.0 SECONDS Partial Thromboplastin Ratio 2.3 Test 09/17/16 19:53 09/18/16 04:48 09/18/16 06:39 09/18/16 07:30 Bedside Glucose 88 mg/dl 106 mg/dl White Blood Count 7.70 K/uL Red Blood Count 3.08 M/uL Hemoglobin 10.0 g/dL Hematocrit 31.8 % Mean Corpuscular Volume 103.2 fL Mean Corpuscular Hemoglobin 32.5 pg Mean Corpuscular Hemoglobin Concent 31.4 g/dl RDW Standard Deviation 54.8 fL RDW Coefficient of Variation 14.6 % Platelet Count 193 K/uL Mean Platelet Volume 10.4 fL Sodium Level 137 mmol/L Potassium Level 4.4 mmol/L Chloride Level 101 mmol/L Carbon Dioxide Level 29 mmol/L Anion Gap 7.0 mmol/L Blood Urea Nitrogen 6 mg/dl Creatinine 0.49 mg/dl Est Creatinine Clear Calc Drug Dose 165.4 ml/min Estimated GFR () 128.0 Estimated GFR (Non- 110.5 BUN/Creatinine Ratio 11.7 Random Glucose 107 mg/dl Calcium Level 8.6 mg/dl Magnesium Level 1.8 mg/dl Activated Partial Thromboplast Time 50.6 SECONDS Partial Thromboplastin Ratio 1.9 Assessment and Plan Osteomyelitis of toe, chronic infection of right TKA. Will continue patient on aztreonam and vancomycin, and have discontinued clindamycin. For toe amputation tomorrow. Will follow.
[2016-09-18] MEDS: MoRPHine SULFATE 2 MG/ML CARP IV PRN (15:57)
--- NOTE | 2016-09-18 16:35 | Orthopedic Progress Note ---
Orthopedic Progress Note Date of Service Sep 18, 2016. Subjective Additional Notes: Pt states more pain and burning in left 3rd toe Objective dressing C/D/I Date Time Temp Pulse Resp B/P (MAP) Pulse Ox O2 Delivery O2 Flow Rate FiO2 09/18/16 14:33 36.9 68 20 132/78 (96) 98 Room Air 09/18/16 14:16 36.6 82 16 145/92 (109) 97 09/18/16 11:45 Room Air 09/18/16 10:45 36.5 99 20 133/87 (102) 94 Room Air 09/18/16 08:21 36.7 104 20 125/78 (94) 94 Room Air 09/18/16 08:00 Room Air 09/18/16 04:04 36.7 77 18 127/88 (101) 92 Room Air 09/18/16 04:00 Room Air 09/18/16 00:08 36.8 83 18 126/86 (99) 94 2.0 09/17/16 23:59 Room Air 09/17/16 20:00 Room Air 09/17/16 18:51 36.9 76 19 137/80 (99) 96 Room Air Laboratory Results 24 Hours: Test 09/18/16 04:48 Hematocrit 31.8 % Hemoglobin 10.0 g/dL Assessment & Plan Assessment: Osteomyelitis 3rd left toe Plan: Continue IV antibx Plan for 3rd toe amputation tomorrow with Dr Contreras Heparin will need to be stopped 6 hours prior to surgery. Inhouse Planning Pain Management: Morphine DVT Prophylaxis: Heparin Drip
[2016-09-18] MEDS: HEPARIN 25,000 UNIT/500ML D5W 500 ML IV PRN (19:44)
[2016-09-18] MEDS: ATORVASTATIN 40 MG TAB PO SCH (21:04)
[2016-09-18] MEDS: ESCITALOPRAM OXALATE 10 MG TAB PO SCH (21:04)
[2016-09-18] MEDS: LISINOPRIL 5 MG TAB PO SCH (21:06)
[2016-09-18] MEDS: ZOLPIDEM TARTRATE 5 MG TAB PO PRN (21:18)
[2016-09-19] VITALS (8 sets, daily range): BP systolic 122–146; BP diastolic 72–94; PULSE 85–111; TEMP 36.4–36.9; O2SAT 91–97
[2016-09-19] MEDS: HEPARIN 25,000 UNIT/500ML D5W 500 ML IV PRN (05:13)
[2016-09-19] MEDS: VANCOMYCIN INJ 1,500 MG in SODIUM CHLORIDE 0.9% 500ML 500 ML IV SCH ×2 (05:22→18:01)
[2016-09-19 05:37] LABS: HEMATOCRIT 32.7 % (37-47); MEAN CELL VOLUME 101.9 fL (80-100); MEAN CORPUSCULAR HEMOGLOBIN 31.2 pg (25-34); MEAN CORPUSCULAR HGB CONC 30.6 g/dl (32-36); MEAN PLATELET VOLUME 10.3 fL (7.4-10.4); PLATELET COUNT 205 K/uL (130-400); RED BLOOD COUNT 3.21 M/uL (4.2-5.4); WHITE BLOOD COUNT 8.41 K/uL (4.8-10.8)
[2016-09-19 05:51] LABS: PARTIAL THROMBOPLASTIN RATIO 2.2
[2016-09-19 06:06] LABS: BUN/CREATININE RATIO 13.1 (10-20); CREATININE 0.5 mg/dl (0.60-1.20); MAGNESIUM 1.6 mg/dl (1.8-2.4); POTASSIUM 4.2 mmol/L (3.5-5.1)
[2016-09-19] MEDS ORDERED: MAGNESIUM SULFATE 1GM / D5W 1 GM in PREMIXED IN D5W 100 ML IV ONE (08:00)
[2016-09-19] MEDS: INSULIN ASPART 100 UNITS/ML 3 ML PEN SC SCH ×4 (08:03→20:07)
[2016-09-19] MEDS: CALCIUM 600MG + VIT D 400 IU TAB PO SCH ×2 (08:16→20:10)
[2016-09-19] MEDS: MAGNESIUM OXIDE 400 MG TAB PO SCH ×2 (08:16→20:08)
[2016-09-19] MEDS: AZTREONAM IV 2,000 MG in DEXTROSE 5% 100ML 100 ML IV SCH ×2 (08:16→16:06)
[2016-09-19] MEDS: LACTOBACILLUS ACIDOPHILUS (FLORANEX) TAB PO SCH ×3 (08:16→17:00)
[2016-09-19] MEDS: DILTIAZEM HCL 30 MG TAB PO SCH ×3 (08:16→20:09)
[2016-09-19] MEDS: HYDROCHLOROTHIAZIDE 25 MG TAB PO SCH (08:16)
[2016-09-19] MEDS: CHOLECALCIFEROL 1000 INTER.UNIT TAB PO SCH (08:17)
[2016-09-19] MEDS: MONTELUKAST SOD 10 MG TAB PO SCH (08:17)
[2016-09-19] MEDS: METOPROLOL SUCC 50MG EXT REL TAB PO SCH (08:17)
[2016-09-19] MEDS: CETIRIZINE HCL 10 MG TAB PO SCH (08:17)
[2016-09-19] MEDS: BuPROPion SR 150 MG TABCR PO SCH (08:17)
[2016-09-19] MEDS: CYANOCOBALAMIN 500 MCG TAB (VIT B-12) PO SCH (08:18)
[2016-09-19] MEDS: LORAZEPAM 1 MG TAB PO PRN (08:29)
--- NOTE | 2016-09-19 10:54 | Hospitalist Progress Note ---
Hospitalist Progress Note Date of Service Sep 19, 2016. (Ariana Tapia ., BALTAZAR-C) Subjective Pt evaluation today including: conversation w/ patient, physical exam, chart review, lab review, review of inpatient medication list Pain: 3/10 aching pain left third toe PO Intake: NPO for surgery Voiding: no voiding problems The patient reports feeling well but is anxious about surgery later today. She states that the pain in her left third toe is better today, rating it as a 3/10 aching pain. She still complains of frequent bowel movements despite being NPO today. She states she still feels bloated by denies nausea or pain. The patient denies fevers, chills, sweats, chest pain, palpitations, claudication, cough, wheezing, shortness of breath, nausea, vomiting, abdominal pain, dysuria , hematuria, urinary retention, paralysis, weakness, numbness and tingling. Additional Comments: See HPI for pertinent positives and negatives. All other systems reviewed and negative. (Ariana Tapia ., BALTAZAR-C) Objective Vital Signs Date Time Temp Pulse Resp B/P (MAP) Pulse Ox O2 Delivery O2 Flow Rate FiO2 09/19/16 08:00 Room Air 09/19/16 06:56 36.7 111 20 146/94 (111) 93 Room Air 09/19/16 00:00 Room Air 09/18/16 23:42 36.9 101 20 139/73 (95) 93 Room Air 09/18/16 21:10 92 134/77 (96) 09/18/16 17:08 Room Air 09/18/16 14:33 36.9 68 20 132/78 (96) 98 Room Air 09/18/16 14:16 36.6 82 16 145/92 (109) 97 09/18/16 11:45 Room Air (Ariana Tapia ., PA-C) Physical Exam Notes: General appearance: +Morbidly obese. Well-developed, well-nourished, no apparent distress Head: Normocephalic, atraumatic Eyes: Normal inspection, PERRL, EOMI ENT: Normal ENT inspection, hearing grossly normal, pharynx normal Neck: Supple, no JVD, trachea midline Respiratory/Chest: +Decreased breath sounds. Lungs clear to auscultation, normal breath sounds, no respiratory distress Cardiovascular: +Irregularly irregular. Regular rate. No gallop, no murmur Abdomen/GI: +Lower abdomen distended, stable. Normal bowel sounds, non-tender , soft Extremities/Musculoskeletal: +2+ pitting edema. Erythema left 3rd toe and dorsal aspect left foot appears resolved/very minimal. Normal inspection, no calf tenderness, no pedal edema Neurological/Psych: +Anxious. Alert, normal mood/affect, oriented x 3 Skin: Normal color, warm/dry, no rash (Ariana Tapia ., BALTAZAR-C) Laboratory Results Last 24 Hours Test 09/18/16 11:00 09/18/16 15:59 09/18/16 20:13 09/19/16 04:50 Bedside Glucose 99 mg/dl 98 mg/dl 107 mg/dl White Blood Count 8.41 K/uL Red Blood Count 3.21 M/uL Hemoglobin 10.0 g/dL Hematocrit 32.7 % Mean Corpuscular Volume 101.9 fL Mean Corpuscular Hemoglobin 31.2 pg Mean Corpuscular Hemoglobin Concent 30.6 g/dl RDW Standard Deviation 54.2 fL RDW Coefficient of Variation 14.7 % Platelet Count 205 K/uL Mean Platelet Volume 10.3 fL Activated Partial Thromboplast Time 56.2 SECONDS Partial Thromboplastin Ratio 2.2 Sodium Level 138 mmol/L Potassium Level 4.2 mmol/L Chloride Level 101 mmol/L Carbon Dioxide Level 32 mmol/L Anion Gap 5.0 mmol/L Blood Urea Nitrogen 7 mg/dl Creatinine 0.50 mg/dl Est Creatinine Clear Calc Drug Dose 162.1 ml/min Estimated GFR () 127.2 Estimated GFR (Non- 109.7 BUN/Creatinine Ratio 13.1 Random Glucose 109 mg/dl Calcium Level 9.0 mg/dl Magnesium Level 1.6 mg/dl Test 09/19/16 07:29 Bedside Glucose 116 mg/dl (Ariana Tapia ., PA-C) Assessment and Plan 56 y/o female with PMHx of T2DM, A Fib S/P Cardioversion x 2, HTN, HLD, B12 Deficiency, and Chronic R Leg Infection on Bactrim who is admitted for L 3rd toe osteomyelitis. Left 3rd Toe Osteomyelitis w/overlying cellulitis--stable. Patient to go for surgery today - Aztreonam 2 g IV Q8H and Vancomycin per pharmacy dosing. Day #7 - ID consulted, appreciate recs: d/c clindamycin. Continue aztreonam and vancomycin - Blood cultures negative x 4, final - PICC line inserted 09/15 - Orthopedics consulted, appreciate recs: Plan for amputation Thursday, 09/19. 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 Associated cellulitis, wound and suspected 6 mm abscess which extends from the skin to the distal phalanx. In addition, marrow edema within the proximal and middle phalanges of the left third toe which could reflect developing osteomyelitis or osteitis. These bones are also abnormal. - Wound following - appreciate input and dressing/cleaning recommendations Atrial Fibrillation with RVR--stable, rate controlled - Transfer to telemetry 09/14. Transferred to [facility] 09/18 - Cardiology consulted, appreciate recs: Focus on rate control strategy as opposed to rhythm control, as pt is likely actually in permanent afib. D/C flecainide. Add diltiazem to metoprolol. Increase diltiazem to 60 mg PO TID. - Continue metoprolol succinate 200 mg PO qd - Increase diltiazem from 30 mg PO TID to 60 mg PO TID - Hold Xarelto in anticipation of possible amputation - converted to Heparin gtt. Hold 6 hours prior to surgery Hypomagnesemia--ongoing -Magnesium 1.6 on 09/19 -Magnesium sulfate 1 gm IV x 1 -Continue magnesium oxide 400 mg PO BID -Continue to monitor HTN--stable - Resume HCTZ 12.5 mg PO qd - Continue lisinopril 5 mg PO qd Diabetes mellitus type 2--stable - HgbA1c 6.1 on 09/15 - Hold Metformin - Insulin sliding scale - Check BSGs q ac and qhs Macrocytic Anemia - B12 Deficiency--stable - Continue B12 1000 mcg PO qd - Hgb stable HLD -Continue atorvastatin 40 mg PO qd Depression/Anxiety - Wellbutrin 150 mg PO qd and Lexapro 10 mg PO qd - Ativan increased to 1 mg PO QID prn anxiety DVT prophylaxis -Heparin drip stopped 6 hours prior to surgery -SCDs Code Status -Level I, FULL RESUSCITATION STATUS (Ariana Tapia ., PA-C) I agree with BALTAZAR assessment and plan and have seen and examined pt myself Labs and vitals reviewed Cont IV antibx FOr amputation of left third toe today WIll need f/u on discharge and likely PO antibx as well No further recs (John Dubon D.O.)
[2016-09-19] MEDS ORDERED: VANCOMYCIN TROUGH SCH (15:30)
--- NOTE | 2016-09-19 15:48 | History & Physical Bridge Note ---
H&P Re-Evaluation Bridge Note: I have examined the patient, reviewed the History & Physical and in the interval since the performance of the History & Physical I have noted the following changes of clinical significance: No changes noted
[2016-09-19] MEDS ORDERED: FENTANYL CITRATE INJ 50 MCG/1 ML 2 ML VIAL ONE (18:55)
[2016-09-19] MEDS ORDERED: MIDAZOLAM HCL 1 MG/ML 2ML VIAL ONE (18:55)
[2016-09-19] MEDS ORDERED: BACITRACIN 50000 UNIT VIAL ONE (19:19)
[2016-09-19] MEDS ORDERED: BUPIVACAINE 0.5 % 5 MG/1 ML MPF 30ML VIAL ONE (19:19)
[2016-09-19] MEDS ORDERED: EpHEDrine SULFATE INJ 50 MG/ML AMP IV PRN (19:45)
[2016-09-19] MEDS ORDERED: LIDOCAINE HCL 2% 2 ML VIAL (20MG/ML) ONE (19:45)
[2016-09-19] MEDS ORDERED: FENTANYL CITRATE INJ 50 MCG/1 ML 2 ML VIAL IV PRN (19:45)
[2016-09-19] MEDS ORDERED: LABETALOL HCL IV 5 MG/ML 20ML IV PRN (19:45)
[2016-09-19] MEDS ORDERED: ATROPINE SULFATE 0.1 MG/ML 5ML SYR IV PRN (19:45)
[2016-09-19] MEDS ORDERED: NALOXONE HCL 0.4 MG/1 ML VIAL/CARP IV PRN (19:45)
[2016-09-19] MEDS ORDERED: PROPOFOL IV EMULSION 10 MG/ML 20 ML VIAL IV ONE (19:45)
[2016-09-19] MEDS ORDERED: ONDANSETRON INJ 2 MG/ML 2 ML VIAL IV PRN (19:45)
[2016-09-19] MEDS ORDERED: HYDROmorphone INJ 2 MG/ML SYR/VIAL IV PRN (19:45)
[2016-09-19] MEDS ORDERED: MEPERIDINE HCL 25 MG/ML CARP IV PRN (19:45)
[2016-09-19] MEDS ORDERED: FLUMAZENIL 0.1 MG/1 ML 10 ML VIAL IV PRN (19:45)
[2016-09-19] MEDS ORDERED: PHENYLEPHRINE 100MCG/ML 5ML SYR IV PRN (19:45)
[2016-09-19] MEDS: LISINOPRIL 5 MG TAB PO SCH (20:08)
[2016-09-19] MEDS: ESCITALOPRAM OXALATE 10 MG TAB PO SCH (20:09)
[2016-09-19] MEDS: ATORVASTATIN 40 MG TAB PO SCH (20:09)
--- NOTE | 2016-09-19 20:39 | [facility] Post Operative Brief Note ---
Immediate Operative Summary Operative Date Sep 19, 2016. Pre-Operative Diagnosis Osteomyelitis left 3rd toe Post-Operative Diagnosis Osteomyelitis left 3rd toe Procedure(s) Performed Amputation left third toe Surgeon Dr. Contreras Ice Hockey Coach Surgeon(s) Adriano Sanabria PA-C Estimated Blood Loss 10ml Findings See dict Specimens A. Left third toe Drains 1/2" iodoform gauze Anesthesia Local w/ sedation Complication(s) None Disposition Recovery Room / PACU
--- NOTE | 2016-09-19 20:54 | Anesthesiology Progress Note ---
Anesthesia Post Op Note Date & Time Sep 19, 2016 at 20:54 Vital Signs Pain Intensity: 0.0 Vital Signs Past 12 Hours Date Time Temp Pulse Resp B/P (MAP) Pulse Ox O2 Delivery O2 Flow Rate FiO2 09/19/16 16:00 Room Air 09/19/16 14:46 36.9 85 18 139/83 (101) 96 Room Air Notes Mental Status: alert / awake / arousable, participated in evaluation Pt Amnestic to Procedure: Yes Nausea / Vomiting: adequately controlled Pain: adequately controlled Airway Patency, RR, SpO2: stable & adequate BP & HR: stable & adequate Hydration State: stable & adequate Anesthetic Complications: no major complications apparent
--- NOTE | 2016-09-19 21:18 | OPERATIVE REPORT ---
DATE OF OPERATION: 09/19/2016 PREOPERATIVE DIAGNOSES: Left third toe osteomyelitis. POSTOPERATIVE DIAGNOSIS: Same. PROCEDURE: Left third toe amputation. SURGEON: Dr. Contreras. SPANISH LANGUAGE LECTURER: Adriano Sanabria PA-C, who was present for patient positioning, sterile prep and drape, management of retractors and instruments. He was present through the critical portions of the case including wound closure, application of sterile dressing and transport of the patient to recovery. ANESTHESIA: Local with sedation. SPECIMENS: Left third toe. DRAINS: [id number] iodoform gauze x1. COMPLICATIONS: None. BLOOD LOSS: 10 mL PERTINENT HISTORY: This is a 56-year-old woman, who developed a left third toe osteomyelitis confirmed with radiographs and MRI. The patient had failed antibiotic therapy initially and was then scheduled for surgery as indicated to eradicate the osteomyelitis of the left third toe. All potential risks, benefits, complications, alternatives, rehab, potential for incomplete relief of symptoms, need for further surgery, DVT, PE, , persistent pain, swelling, scarring, weakness, neurovascular injury, wound complications were discussed with the patient. The patient decided to proceed with the procedure as indicated. DESCRIPTION OF PROCEDURE: The patient was taken to the operative suite, placed supine on the operating room table. After review of the consent and identification of proper operative site, the patient was sedated and the left lower extremity was then sterilely prepped and draped in usual fashion. Left lower extremity was then elevated and partially exsanguinated from the hindfoot proximally with a 4" Esmarch bandage applied over a sterile surgical towel at the level of the ankle. There was no exsanguination performed to the forefoot or the toe due to the osteomyelitis. Next, the dorsal mid foot was injected with 0.5% Marcaine plain, approximately 10 mL in a field block. Next, the plantar digital nerves were injected in the medial and lateral aspects of the third metatarsal neck with 0.5% Marcaine approximately 5 mL Next, a 15 blade scalpel was then used to make a racket-type incision on the dorsal aspect of the left third toe extending circumferentially around the proximal phalanx of the left third toe. Next, the middle and distal phalanges were then easily resected with a rongeur. The bone was noted to be significantly soft and it could be easily cut with a 15 blade. No significant foul odor was noted. No obvious purulence was noted at this time. Significant serous discharge was noted. Next, a dorsal, medial and plantar capsular ligaments were transected with a 15 blade scalpel at the base of the proximal phalanx, left third toe. The proximal phalanx was then resected. The flexor tendon was then placed on stretch with a hemostat and transected with a 15 blade scalpel. It was then allowed to retract deep within the foot. Next, the wound was copiously irrigated with sterile normal saline. The skin flaps were then carefully trimmed with a 15 blade scalpel so that a no tension closure could be effected with 3-0 nylon. Final irrigation was performed with sterile normal saline followed by closure of the soft tissue and a tension-free closure with interrupted 3-0 nylon sutures. Next, a one-half inch iodoform gauze was then placed extending to the dorsal aspect of the foot through a small stab incision with a 15 blade scalpel. Next, a sterile compressive dressing was applied and wrapped with Elijah wraps. The tourniquet was released. The patient was then taken to recovery in stable condition. I attest to the content of the Intraoperative Record and any orders documented therein. Any exceptions are noted below. MIGUEL
[2016-09-20] MEDS: AZTREONAM IV 2,000 MG in DEXTROSE 5% 100ML 100 ML IV SCH ×3 (00:22→17:17)
[2016-09-20] MEDS: MoRPHine SULFATE 4 MG/ML 1 ML CARP\\VIAL IV PRN ×4 (03:26→22:14)
[2016-09-20] MEDS: VANCOMYCIN INJ 1,500 MG in SODIUM CHLORIDE 0.9% 500ML 500 ML IV SCH ×2 (03:30→14:04)
[2016-09-20 06:09] LABS: HEMATOCRIT 32.4 % (37-47); MEAN CELL VOLUME 101.9 fL (80-100); MEAN CORPUSCULAR HEMOGLOBIN 31.4 pg (25-34); MEAN CORPUSCULAR HGB CONC 30.9 g/dl (32-36); MEAN PLATELET VOLUME 10.4 fL (7.4-10.4); PLATELET COUNT 202 K/uL (130-400); RED BLOOD COUNT 3.18 M/uL (4.2-5.4)
[2016-09-20 06:18] LABS: PARTIAL THROMBOPLASTIN RATIO 1.1
[2016-09-20 06:42] LABS: BUN/CREATININE RATIO 12.4 (10-20); CALCIUM 8.7 mg/dl (8.5-10.1); CREATININE 0.48 mg/dl (0.60-1.20); MAGNESIUM 1.8 mg/dl (1.8-2.4); POTASSIUM 3.8 mmol/L (3.5-5.1)
[2016-09-20] MEDS: DILTIAZEM HCL 30 MG TAB PO SCH ×3 (08:05→20:52)
[2016-09-20] MEDS: CETIRIZINE HCL 10 MG TAB PO SCH (08:05)
[2016-09-20] MEDS: HYDROCHLOROTHIAZIDE 25 MG TAB PO SCH (08:05)
[2016-09-20] MEDS: LACTOBACILLUS ACIDOPHILUS (FLORANEX) TAB PO SCH ×3 (08:06→17:18)
[2016-09-20] MEDS: MONTELUKAST SOD 10 MG TAB PO SCH (08:09)
[2016-09-20] MEDS: CYANOCOBALAMIN 500 MCG TAB (VIT B-12) PO SCH (08:09)
[2016-09-20] MEDS: METOPROLOL SUCC 50MG EXT REL TAB PO SCH (08:09)
[2016-09-20] MEDS: CALCIUM 600MG + VIT D 400 IU TAB PO SCH ×2 (08:10→20:54)
[2016-09-20] MEDS: BuPROPion SR 150 MG TABCR PO SCH (08:10)
[2016-09-20] MEDS: MAGNESIUM OXIDE 400 MG TAB PO SCH ×2 (08:10→20:53)
[2016-09-20] MEDS: CHOLECALCIFEROL 1000 INTER.UNIT TAB PO SCH (08:10)
[2016-09-20] MEDS: INSULIN ASPART 100 UNITS/ML 3 ML PEN SC SCH ×4 (08:16→20:54)
[2016-09-20 08:22] VITALS: BP 137/85; PULSE 98; TEMP 36.5; O2SAT 95
[2016-09-20] MEDS ORDERED: NURSING VERBAL MED ORDER ONE (08:45)
--- NOTE | 2016-09-20 09:53 | Orthopedic Progress Note ---
Orthopedic Progress Note Date of Service Sep 20, 2016. Subjective Post OP Day: 1 Reports: feeling well, pain controlled w PO medications, Denies: complaints, chest pain, SOB, nausea / vomiting, light headedness, calf pain Additional Notes: Patient is feeling well. She has no complaints. Objective calves soft nontender, capillary refill less than 2 sec., incision C/D/I, A&O x3 , toes mobile Dressing was removed, Incision was clean dry and intact. Packing was removed from the wound. new dressing was applied. Date Time Temp Pulse Resp B/P (MAP) Pulse Ox O2 Delivery O2 Flow Rate FiO2 09/20/16 08:22 36.5 98 16 137/85 (102) 95 09/20/16 08:00 Room Air 09/20/16 00:02 Room Air 09/19/16 23:29 36.7 95 18 122/85 (97) 91 Room Air 09/19/16 22:32 36.6 95 18 134/83 (100) 92 Room Air 09/19/16 22:15 36.6 95 18 133/72 (92) 92 Room Air 09/19/16 22:00 36.4 95 18 133/86 (102) 92 09/19/16 21:44 36.5 91 18 131/90 (104) 92 Nasal Cannula 2.0 09/19/16 21:36 Room Air 09/19/16 21:34 36.5 97 18 133/92 (106) 97 Nasal Cannula 2.0 09/19/16 20:55 36.0 93 20 142/94 97 Nasal Cannula 2 09/19/16 20:50 100 20 141/87 100 Nasal Cannula 2 09/19/16 20:40 92 19 150/93 100 Mask 10 09/19/16 20:38 36.5 113 19 151/105 94 Mask 10 09/19/16 16:00 Room Air 09/19/16 14:46 36.9 85 18 139/83 (101) 96 Room Air Laboratory Results 24 Hours: Test 09/20/16 05:20 Hematocrit 32.4 % Hemoglobin 10.0 g/dL Assessment & Plan Assessment: POD #1 S/P left 3rd toe amputation. Plan: Continue IV antibx amputation incision is clean dry and intact. Packing was removed. New dressing was applied. Tomorrow more packing will be removed and new dressing applied. Inhouse Planning Pain Management: Morphine DVT Prophylaxis: Heparin Drip Discharge Planning Discharge Planning: uncertain
--- NOTE | 2016-09-20 14:04 | Cardiology Follow-Up ---
Subjective Subjective Date of Service: Sep 20, 2016. Pt evaluation today including: conversation w/ patient, physical exam, chart review, lab review, review of studies, review of inpatient medication list Additional Details: POD1 post 3rd toe amputation Pain reasonably controlled. No chest pain, palpitations, shortness of breath. No other new complaints. Problem List Medical Problems: (1) Sepsis Status: Acute (2) Toe osteomyelitis, left Status: Acute Review of Systems Constitutional: No fever, No chills ENT: No nasal symptoms, No sore throat Respiratory: No cough, No shortness of breath Cardiac: + palpitations, No chest pain Abdomen: + diarrhea, No pain, No nausea Musculoskeletal: No calf pain Female : No dysuria Heme: No abnormal bleeding/bruising Objective Vital Signs Last Vital Signs Documentation Date Time Temp Pulse Resp B/P (MAP) Pulse Ox O2 Delivery O2 Flow Rate FiO2 09/20/16 08:22 36.5 98 16 137/85 (102) 95 09/20/16 08:00 Room Air 09/19/16 21:44 2.0 Physical Exam: General Appearance: no apparent distress ENT: normal ENT inspection, pharynx normal Neck: supple, thyroid normal Respiratory/Chest: lungs clear, normal breath sounds, no respiratory distress Cardiovascular: no gallop, no murmur, + irregularly irregular Abdomen: normal bowel sounds, soft Extremities: non-tender, no calf tenderness, + pertinent finding (Left lower extremity wrapped (dressing left in place)) Neurologic/Psychiatric: alert, oriented x 3 Skin: normal color, no rash, + pertinent finding (improving cellulitis) Lymphatic: no adenopathy Assessment and Plan 1. Left LE 3rd toe osteomyelitis POD1 s/p toe amputation 2. Persistent AF -- rate controlled on diltiazem/toprol 3. Type 2 DM 4. HTN Remains well rate controlled. Blood pressures well controlled. No change to AV jennifer agents. Agree with resuming Xarelto today Plan for outpatient ABIs/LE arterial duplex Continued [facility] stay due to: multiple IV medications needed Discharge planning: uncertain Medications: Current Inpatient Medications Medications (Trade) Dose Ordered Sig/Flash Route Start Time Stop Time Status Last Admin Dose Admin Acetaminophen (Tylenol Tab) 650 mg Q4H PRN PO 09/13/16 14:30 10/13/16 14:29 09/18/16 03:17 650 MG Zolpidem Tartrate (Ambien Tab) 5 mg HSZ PRN PO 09/13/16 14:30 10/13/16 14:29 09/18/16 21:18 5 MG Bupropion HCl (Wellbutrin-Sr Tab) 150 mg DAILY PO 09/14/16 09:00 10/14/16 08:59 09/20/16 08:10 150 MG Cetirizine HCl (zyrTEC TAB) 10 mg DAILY PO 09/14/16 09:00 10/14/16 08:59 09/20/16 08:05 10 MG Cholecalciferol (Vitamin D Tab) 1,000 inter.unit DAILY PO 09/14/16 09:00 10/14/16 08:59 09/20/16 08:10 1,000 INTER.UNIT Cyanocobalamin (Vitamin B-12 Tab) 1,000 mcg DAILY PO 09/14/16 09:00 10/14/16 08:59 09/20/16 08:09 1,000 MCG Escitalopram Oxalate (Lexapro Tab) 10 mg HS PO 09/13/16 21:00 10/13/16 20:59 09/18/16 21:04 10 MG Metoprolol Succinate (Toprol Xl Tab) 200 mg DAILY PO 09/14/16 09:00 10/14/16 08:59 09/20/16 08:09 200 MG Calcium/Vitamin D (Caltrate Plus Tab) 1 tab BID PO 09/13/16 21:00 10/13/16 20:59 09/20/16 08:10 1 TAB Aztreonam 2000 mg/ Dextrose 110 ml @ 100 mls/hr Q8@0000,0800,1600 IV 09/14/16 00:00 10/26/16 00:00 09/20/16 08:00 100 MLS/HR Lactobacillus Acidophilus (Floranex Tab) 4 tab TIDM PO 09/13/16 17:00 10/13/16 17:59 09/20/16 12:27 4 TAB Ondansetron HCl (Zofran Inj) 4 mg Q6H PRN IV 09/13/16 15:00 10/13/16 14:59 09/15/16 07:30 4 MG Insulin Aspart (novoLOG ASPART) SLIDING SCALE If C... ACHS SC 09/13/16 17:00 10/13/16 16:59 09/20/16 12:28 2 UNITS Glucose (Glucose 40% Gel) UD PRN PO 09/13/16 15:00 10/13/16 14:59 Glucose (Glucose Chew Tab) 1 tabs UD PRN PO 09/13/16 15:00 10/13/16 14:59 Dextrose (Dextrose 50% 50ML Syringe) 50 ml UD PRN IV 09/13/16 15:00 10/13/16 14:59 Glucagon (Glucagon Inj) 1 mg UD PRN SQ 09/13/16 15:00 10/13/16 14:59 Acetaminophen 100 ml @ 400 mls/hr Q8H PRN IV 09/13/16 15:00 10/13/16 14:59 Morphine Sulfate (MoRPHine SULFATE INJ) 2 mg Q2H PRN IV 09/13/16 15:00 09/27/16 14:59 09/18/16 15:57 2 MG Morphine Sulfate (MoRPHine SULFATE INJ) 4 mg Q2H PRN IV 09/13/16 15:00 09/27/16 14:59 09/20/16 08:56 4 MG Vancomycin HCl (Consult) 1 ea UD PRN N/A 09/13/16 15:00 10/13/16 14:59 Albuterol (Ventolin Hfa Inhaler) 2 puffs Q4H PRN INH 09/13/16 15:00 10/13/16 14:59 09/16/16 00:53 2 PUFFS Montelukast Sodium (Singulair Tab) 10 mg DAILY PO 09/14/16 09:00 10/13/16 20:59 09/20/16 08:09 10 MG Atorvastatin Calcium (Lipitor Tab) 40 mg QPM PO 09/14/16 21:00 10/14/16 20:59 09/18/16 21:04 40 MG Lisinopril (Zestril Tab) 5 mg QPM PO 09/14/16 21:00 10/14/16 20:59 09/18/16 21:06 5 MG Lorazepam (Ativan Tab) 1 mg QID PRN PO 09/15/16 00:07 10/13/16 00:06 09/19/16 08:29 1 MG Diltiazem HCl (Cardizem Tab) 60 mg TID PO 09/15/16 14:00 10/14/16 14:59 09/20/16 08:05 60 MG Hydrochlorothiazide (Hydrochlorothiazide Tab) 12.5 mg QAM PO 09/16/16 09:00 10/16/16 08:59 09/20/16 08:05 12.5 MG Magnesium Oxide (Mag-Ox Tab) 400 mg BID PO 09/16/16 21:00 10/16/16 20:59 09/20/16 08:10 400 MG Heparin Sodium (Porcine) (Heparin 10 Unit/ ml 5 ml Flush) 5 ml PRN PRN FLUSH 09/17/16 01:30 10/17/16 01:29 09/20/16 08:56 5 ML Vancomycin HCl 1500 mg/Sodium Chloride 530 ml @ 200 mls/hr Q10H IV 09/19/16 18:00 10/31/16 17:59 09/20/16 03:30 200 MLS/HR Rivaroxaban (Xarelto Tab) 20 mg QDD PO 09/20/16 17:00 10/20/16 16:59 Lab Results: 09/20/16 05:20 09/20/16 05:20 Test 09/19/16 15:37 09/20/16 05:20 09/20/16 11:32 Vancomycin Level Trough 16.1 mcg/ml (SEE COMMENT) Red Blood Count 3.18 M/uL (4.2-5.4) Mean Corpuscular Volume 101.9 fL (80-100) Mean Corpuscular Hemoglobin 31.4 pg (25-34) Mean Corpuscular Hemoglobin Concent 30.9 g/dl (32-36) RDW Standard Deviation 54.3 fL (36.4-46.3) RDW Coefficient of Variation 14.7 % (11.5-14.5) Mean Platelet Volume 10.4 fL (7.4-10.4) Activated Partial Thromboplast Time 28.0 SECONDS (21.0-31.0) Partial Thromboplastin Ratio 1.1 Anion Gap 8.0 mmol/L (3-11) Est Creatinine Clear Calc Drug Dose 171.8 ml/min Estimated GFR () 128.9 Estimated GFR (Non- 111.2 BUN/Creatinine Ratio 12.4 (10-20) Calcium Level 8.7 mg/dl (8.5-10.1) Magnesium Level 1.8 mg/dl (1.8-2.4) Bedside Glucose 109 mg/dl (70-90)
--- NOTE | 2016-09-20 14:31 | Progress Note ---
Subjective Date of Service: Sep 20, 2016. Subjective Pt evaluation today including: conversation w/ patient, physical exam, chart review, lab review, review of studies, review of inpatient medication list Left third toe pain No fevers No acute events overnight Problem List Medical Problems: (1) Sepsis Status: Acute (2) Toe osteomyelitis, left Status: Acute Review of Systems Constitutional: No fever, No chills, No sweats, No weight loss Eyes: No worsening of vision, No eye pain, No redness, No discharge Respiratory: No cough, No sputum, No wheezing, No shortness of breath, No dyspnea on exertion Cardiac: No chest pain, No orthopnea, No PND, No edema, No claudication Abdomen: No pain, No nausea, No vomiting, No diarrhea, No constipation Musculoskeletal: No joint pain, No muscle pain, No swelling, No calf pain Female : No dysuria, No urinary frequency, No hematuria, No incontinence Neurologic: No memory loss, No paralysis, No weakness, No numbness/tingling Psychiatric: No depression symptoms, No anhedonism Endo: No fatigue, No excessive thirst Skin: No rash, No itch Objective Vital Signs Date Time Temp Pulse Resp B/P (MAP) Pulse Ox O2 Delivery O2 Flow Rate FiO2 09/20/16 08:22 36.5 98 16 137/85 (102) 95 09/20/16 08:00 Room Air 09/20/16 00:02 Room Air 09/19/16 23:29 36.7 95 18 122/85 (97) 91 Room Air 09/19/16 22:32 36.6 95 18 134/83 (100) 92 Room Air 09/19/16 22:15 36.6 95 18 133/72 (92) 92 Room Air 09/19/16 22:00 36.4 95 18 133/86 (102) 92 09/19/16 21:44 36.5 91 18 131/90 (104) 92 Nasal Cannula 2.0 09/19/16 21:36 Room Air 09/19/16 21:34 36.5 97 18 133/92 (106) 97 Nasal Cannula 2.0 09/19/16 20:55 36.0 93 20 142/94 97 Nasal Cannula 2 09/19/16 20:50 100 20 141/87 100 Nasal Cannula 2 09/19/16 20:40 92 19 150/93 100 Mask 10 09/19/16 20:38 36.5 113 19 151/105 94 Mask 10 09/19/16 16:00 Room Air 09/19/16 14:46 36.9 85 18 139/83 (101) 96 Room Air Physical Exam General Appearance: WD/WN, no apparent distress, + obese Eyes: normal inspection, PERRL, EOMI, sclerae normal Neck: supple, no adenopathy, thyroid normal, no JVD Respiratory/Chest: chest non-tender, no respiratory distress, no accessory muscle use, + decreased breath sounds Cardiovascular: regular rate, rhythm, no edema, no gallop, no JVD Abdomen: normal bowel sounds, soft, no organomegaly, no pulsatile mass Neurologic/Psychiatric: no motor/sensory deficits, alert, normal mood/affect, oriented x 3 Skin: normal color, warm/dry, + pertinent finding (left 3rd toe in bandage) Laboratory Results Last 24 Hours Test 09/19/16 15:37 09/19/16 16:20 09/19/16 21:43 09/20/16 05:20 Vancomycin Level Trough 16.1 mcg/ml Bedside Glucose 95 mg/dl 104 mg/dl White Blood Count 7.10 K/uL Red Blood Count 3.18 M/uL Hemoglobin 10.0 g/dL Hematocrit 32.4 % Mean Corpuscular Volume 101.9 fL Mean Corpuscular Hemoglobin 31.4 pg Mean Corpuscular Hemoglobin Concent 30.9 g/dl RDW Standard Deviation 54.3 fL RDW Coefficient of Variation 14.7 % Platelet Count 202 K/uL Mean Platelet Volume 10.4 fL Activated Partial Thromboplast Time 28.0 SECONDS Partial Thromboplastin Ratio 1.1 Sodium Level 139 mmol/L Potassium Level 3.8 mmol/L Chloride Level 101 mmol/L Carbon Dioxide Level 30 mmol/L Anion Gap 8.0 mmol/L Blood Urea Nitrogen 6 mg/dl Creatinine 0.48 mg/dl Est Creatinine Clear Calc Drug Dose 171.8 ml/min Estimated GFR () 128.9 Estimated GFR (Non- 111.2 BUN/Creatinine Ratio 12.4 Random Glucose 106 mg/dl Calcium Level 8.7 mg/dl Magnesium Level 1.8 mg/dl Test 09/20/16 07:46 09/20/16 11:32 Bedside Glucose 104 mg/dl 109 mg/dl Assessment and Plan 56 y/o female with PMHx of T2DM, A Fib S/P Cardioversion x 2, HTN, HLD, B12 Deficiency, and Chronic R Leg Infection on Bactrim who was admitted for L 3rd toe osteomyelitis. Left 3rd Toe Osteomyelitis w/overlying cellulitis--stable. POD #1 amputation of 3rd left toe, will need HH for wound care and likely IV antibx Pain controlled - Aztreonam 2 g IV Q8H and Vancomycin per pharmacy dosing. 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 Associated cellulitis, wound and suspected 6 mm abscess which extends from the skin to the distal phalanx. In addition, marrow edema within the proximal and middle phalanges of the left third toe which could reflect developing osteomyelitis or osteitis. These bones are also abnormal. - Wound following - appreciate input and dressing/cleaning recommendations Atrial Fibrillation with RVR--stable, rate controlled - Transfer to telemetry 09/14. Transferred to [facility] 09/18 - Cardiology consulted, appreciate recs: Focus on rate control strategy as opposed to rhythm control, as pt is likely actually in permanent afib. D/C flecainide. Add diltiazem to metoprolol. Continue diltiazem 60 mg PO TID. - Continue metoprolol succinate 200 mg PO qd - Restarted xarelto 20 mg PO daily s/p amputation Hypomagnesemia--resolved, replace PRN -Continue magnesium oxide 400 mg PO BID -Continue to monitor HTN--stable - Resume HCTZ 12.5 mg PO qd - Continue lisinopril 5 mg PO qd Diabetes mellitus type 2--stable - HgbA1c 6.1 on 09/15 - Hold Metformin - Insulin sliding scale - Check BSGs q ac and qhs Macrocytic Anemia - B12 Deficiency--stable - Continue B12 1000 mcg PO qd - Hgb stable HLD -Continue atorvastatin 40 mg PO qd Depression/Anxiety - Wellbutrin 150 mg PO qd and Lexapro 10 mg PO qd - Continue Ativan 1 mg PO QID prn anxiety DVT prophylaxis with xarelto Pt is FULL CODE Continued [facility] stay due to: multiple IV medications needed Discharge planning: uncertain
[2016-09-20 15:11] VITALS: BP 131/89; PULSE 96; TEMP 36.7; O2SAT 91
[2016-09-20] MEDS: RIVAROXABAN 20 MG TAB PO SCH (17:18)
[2016-09-20] MEDS: MoRPHine SULFATE 2 MG/ML CARP IV PRN (19:41)
[2016-09-20] MEDS: ATORVASTATIN 40 MG TAB PO SCH (20:53)
[2016-09-20] MEDS: ESCITALOPRAM OXALATE 10 MG TAB PO SCH (20:53)
[2016-09-20] MEDS: LISINOPRIL 5 MG TAB PO SCH (20:54)
[2016-09-20 23:07] VITALS: BP 120/82; PULSE 93; TEMP 36.6; O2SAT 93
[2016-09-21 05:47] LABS: HEMATOCRIT 32.2 % (37-47); MEAN CELL VOLUME 100.9 fL (80-100); MEAN CORPUSCULAR HEMOGLOBIN 32.6 pg (25-34); MEAN CORPUSCULAR HGB CONC 32.3 g/dl (32-36); MEAN PLATELET VOLUME 10.1 fL (7.4-10.4); PLATELET COUNT 187 K/uL (130-400); RED BLOOD COUNT 3.19 M/uL (4.2-5.4); WHITE BLOOD COUNT 7.69 K/uL (4.8-10.8)
[2016-09-21 06:06] LABS: PARTIAL THROMBOPLASTIN RATIO 1.2
[2016-09-21 06:17] LABS: BUN/CREATININE RATIO 12.6 (10-20); CALCIUM 8.6 mg/dl (8.5-10.1); CREATININE 0.58 mg/dl (0.60-1.20); MAGNESIUM 1.7 mg/dl (1.8-2.4); POTASSIUM 3.8 mmol/L (3.5-5.1)
[2016-09-21] MEDS: MoRPHine SULFATE 4 MG/ML 1 ML CARP\\VIAL IV PRN (06:38)
[2016-09-21 06:44] VITALS: BP 121/82; PULSE 99; TEMP 36.9; O2SAT 94
[2016-09-21] MEDS: MAGNESIUM OXIDE 400 MG TAB PO SCH ×2 (08:05→20:38)
[2016-09-21] MEDS: CALCIUM 600MG + VIT D 400 IU TAB PO SCH ×2 (08:05→20:37)
[2016-09-21] MEDS: DILTIAZEM HCL 30 MG TAB PO SCH ×3 (08:06→20:38)
[2016-09-21] MEDS: METOPROLOL SUCC 50MG EXT REL TAB PO SCH (08:06)
[2016-09-21] MEDS: LACTOBACILLUS ACIDOPHILUS (FLORANEX) TAB PO SCH ×3 (08:06→16:08)
[2016-09-21] MEDS: HYDROCHLOROTHIAZIDE 25 MG TAB PO SCH (08:07)
[2016-09-21] MEDS: CETIRIZINE HCL 10 MG TAB PO SCH (08:07)
[2016-09-21] MEDS: MONTELUKAST SOD 10 MG TAB PO SCH (08:07)
[2016-09-21] MEDS: CHOLECALCIFEROL 1000 INTER.UNIT TAB PO SCH (08:07)
[2016-09-21] MEDS: BuPROPion SR 150 MG TABCR PO SCH (08:07)
[2016-09-21] MEDS: CYANOCOBALAMIN 500 MCG TAB (VIT B-12) PO SCH (08:07)
[2016-09-21] MEDS: AZTREONAM IV 2,000 MG in DEXTROSE 5% 100ML 100 ML IV SCH ×5 (08:37→23:20)
[2016-09-21] MEDS: INSULIN ASPART 100 UNITS/ML 3 ML PEN SC SCH ×4 (08:39→20:43)
[2016-09-21] MEDS ORDERED: VANCOMYCIN TROUGH ONE (09:30)
--- NOTE | 2016-09-21 10:08 | Orthopedic Progress Note ---
Orthopedic Progress Note Date of Service Sep 21, 2016. Subjective Post OP Day: 2 Reports: feeling well, pain controlled w PO medications, Denies: complaints, chest pain, SOB, nausea / vomiting, light headedness, calf pain Objective calves soft nontender, N/V intact, capillary refill less than 2 sec., incision C /D/I, A&O x3, toes mobile Bandage was removed today. More packing was removed. There was little bloody drainage while pulling out packing. Some was left in. New dry dressing was applied. Patient tolerated dressing change well. Date Time Temp Pulse Resp B/P (MAP) Pulse Ox O2 Delivery O2 Flow Rate FiO2 09/21/16 08:00 Room Air 09/21/16 06:44 36.9 99 20 121/82 (95) 94 Nasal Cannula 2.0 09/21/16 00:46 Room Air 09/20/16 23:07 36.6 93 16 120/82 (95) 93 Nasal Cannula 2.0 09/20/16 19:34 Room Air 09/20/16 16:00 Room Air 09/20/16 15:11 36.7 96 16 131/89 (103) 91 Laboratory Results 24 Hours: Test 09/21/16 05:10 Hematocrit 32.2 % Hemoglobin 10.4 g/dL Assessment & Plan Assessment: 56 y/o female POD #2 S/P left 3rd toe amputation. Plan: Continue IV antibx amputation incision is clean dry and intact. Packing was removed. New dressing was applied. Tomorrow packing will be removed completely and new dressing applied. Inhouse Planning Pain Management: Morphine DVT Prophylaxis: Heparin Drip Discharge Planning Discharge Planning: uncertain
[2016-09-21] MEDS: VANCOMYCIN INJ 1,500 MG in SODIUM CHLORIDE 0.9% 500ML 500 ML IV SCH ×4 (10:43→19:29)
[2016-09-21] MEDS: OXYCODONE/ACETAMINOPHEN 10/325MG TAB PO PRN ×3 (11:11→20:48)
--- NOTE | 2016-09-21 12:31 | Progress Note ---
Subjective Date of Service: Sep 21, 2016. Subjective Pt evaluation today including: conversation w/ patient, physical exam, chart review, lab review, review of studies, review of inpatient medication list Resting comfortably in bed States pain improved No fever or chills or acute events overnight Problem List Medical Problems: (1) Sepsis Status: Acute (2) Toe osteomyelitis, left Status: Acute Review of Systems Constitutional: No fever, No chills, No weakness, No fatigue Respiratory: No cough, No sputum, No wheezing, No shortness of breath Cardiac: No chest pain, No orthopnea, No PND, No edema Abdomen: No pain, No nausea, No vomiting, No diarrhea Musculoskeletal: No joint pain, No muscle pain Female : No dysuria, No urinary frequency Neurologic: No memory loss, No paralysis, No weakness, No vertigo Psychiatric: No depression symptoms, No anhedonism Skin: No rash, No itch Objective Vital Signs Date Time Temp Pulse Resp B/P (MAP) Pulse Ox O2 Delivery O2 Flow Rate FiO2 09/21/16 08:00 Room Air 09/21/16 06:44 36.9 99 20 121/82 (95) 94 Nasal Cannula 2.0 09/21/16 00:46 Room Air 09/20/16 23:07 36.6 93 16 120/82 (95) 93 Nasal Cannula 2.0 09/20/16 19:34 Room Air 09/20/16 16:00 Room Air 09/20/16 15:11 36.7 96 16 131/89 (103) 91 Physical Exam General Appearance: WD/WN, no apparent distress Eyes: normal inspection, PERRL, EOMI, sclerae normal ENT: normal ENT inspection, hearing grossly normal, TMs normal, pharynx normal Neck: supple, no adenopathy, thyroid normal, no JVD Respiratory/Chest: chest non-tender, lungs clear, normal breath sounds, no respiratory distress Cardiovascular: regular rate, rhythm, no edema, no gallop, no JVD Abdomen: normal bowel sounds, non tender, soft, no organomegaly Extremities: normal range of motion, non-tender, normal inspection, no pedal edema Neurologic/Psychiatric: metal cut off saw tender II-XII nml as tested, no motor/sensory deficits, alert, normal mood/affect, oriented x 3 Skin: normal color, warm/dry, + pertinent finding (left third toe in bandage) Laboratory Results Last 24 Hours Test 6/17/17 16:42 09/20/16 20:32 09/21/16 05:10 09/21/16 07:54 Bedside Glucose 114 mg/dl 92 mg/dl 102 mg/dl White Blood Count 7.69 K/uL Red Blood Count 3.19 M/uL Hemoglobin 10.4 g/dL Hematocrit 32.2 % Mean Corpuscular Volume 100.9 fL Mean Corpuscular Hemoglobin 32.6 pg Mean Corpuscular Hemoglobin Concent 32.3 g/dl RDW Standard Deviation 54.2 fL RDW Coefficient of Variation 14.6 % Platelet Count 187 K/uL Mean Platelet Volume 10.1 fL Activated Partial Thromboplast Time 31.0 SECONDS Partial Thromboplastin Ratio 1.2 Sodium Level 138 mmol/L Potassium Level 3.8 mmol/L Chloride Level 98 mmol/L Carbon Dioxide Level 30 mmol/L Anion Gap 10.0 mmol/L Blood Urea Nitrogen 7 mg/dl Creatinine 0.58 mg/dl Est Creatinine Clear Calc Drug Dose 142.1 ml/min Estimated GFR () 121.1 Estimated GFR (Non- 104.5 BUN/Creatinine Ratio 12.6 Random Glucose 106 mg/dl Calcium Level 8.6 mg/dl Magnesium Level 1.7 mg/dl Test 09/21/16 10:42 09/21/16 11:33 Vancomycin Level Trough 14.9 mcg/ml Bedside Glucose 87 mg/dl Assessment and Plan 56 y/o female with PMHx of T2DM, A Fib S/P Cardioversion x 2, HTN, HLD, B12 Deficiency, and Chronic R Leg Infection on Bactrim who was admitted for L 3rd toe osteomyelitis. Left 3rd Toe Osteomyelitis w/overlying cellulitis--stable. POD #2 amputation of 3rd left toe, will need HH for wound care and likely IV antibx Pain controlled - Aztreonam 2 g IV Q8H and Vancomycin per pharmacy dosing. 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 Associated cellulitis, wound and suspected 6 mm abscess which extends from the skin to the distal phalanx. In addition, marrow edema within the proximal and middle phalanges of the left third toe which could reflect developing osteomyelitis or osteitis. These bones are also abnormal. - Wound following - appreciate input and dressing/cleaning recommendations - Will stacey go home with home health on discharge Atrial Fibrillation with RVR--stable, rate controlled - Transfer to telemetry 09/14. Transferred to [facility] 09/18 - Cardiology consulted, appreciate recs: Focus on rate control strategy as opposed to rhythm control, as pt is likely actually in permanent afib. D/C flecainide. Add diltiazem to metoprolol. Continue diltiazem 60 mg PO TID. - Continue metoprolol succinate 200 mg PO qd - Restarted xarelto 20 mg PO daily s/p amputation Hypomagnesemia--resolved, replace PRN -Continue magnesium oxide 400 mg PO BID -Continue to monitor HTN--stable - Resume HCTZ 12.5 mg PO qd - Continue lisinopril 5 mg PO qd Diabetes mellitus type 2--stable - HgbA1c 6.1 on 09/15 - Hold Metformin - Insulin sliding scale - Check BSGs q ac and qhs Macrocytic Anemia - B12 Deficiency--stable - Continue B12 1000 mcg PO qd - Hgb stable HLD -Continue atorvastatin 40 mg PO qd Depression/Anxiety - Wellbutrin 150 mg PO qd and Lexapro 10 mg PO qd - Continue Ativan 1 mg PO QID prn anxiety DVT prophylaxis with xarelto Pt is FULL CODE Continued [facility] stay due to: multiple IV medications needed Discharge planning: uncertain
--- NOTE | 2016-09-21 12:38 | Pharmacy Progress Note ---
Pharmacy Antibiotic Prog Note Date of Service Sep 21, 2016. Subjective The patient is currently receiving VANCOMYCIN 1500mg IV every 10 hours. The patient is currently on day # 9 of VANCOMYCIN / AZACTAM IV therapy. Objective Height (Feet): 5 Height (Inches): 3.00 Weight (Kilograms): 124.400 Levels: Item Value Date Time Vancomycin Level Trough 14.9 mcg/ml 09/21/16 1042 Lab Results (24hrs): Test 09/21/16 05:10 09/21/16 07:54 09/21/16 10:42 09/21/16 11:33 White Blood Count 7.69 K/uL (4.8-10.8) Red Blood Count 3.19 M/uL (4.2-5.4) Hemoglobin 10.4 g/dL (12.0-16.0) Hematocrit 32.2 % (37-47) Mean Corpuscular Volume 100.9 fL (80-100) Mean Corpuscular Hemoglobin 32.6 pg (25-34) Mean Corpuscular Hemoglobin Concent 32.3 g/dl (32-36) RDW Standard Deviation 54.2 fL (36.4-46.3) RDW Coefficient of Variation 14.6 % (11.5-14.5) Platelet Count 187 K/uL (130-400) Mean Platelet Volume 10.1 fL (7.4-10.4) Activated Partial Thromboplast Time 31.0 SECONDS (21.0-31.0) Partial Thromboplastin Ratio 1.2 Sodium Level 138 mmol/L (136-145) Potassium Level 3.8 mmol/L (3.5-5.1) Chloride Level 98 mmol/L (98-107) Carbon Dioxide Level 30 mmol/L (21-32) Anion Gap 10.0 mmol/L (3-11) Blood Urea Nitrogen 7 mg/dl (7-18) Creatinine 0.58 mg/dl (0.60-1.20) Est Creatinine Clear Calc Drug Dose 142.1 ml/min Estimated GFR () 121.1 Estimated GFR (Non- 104.5 BUN/Creatinine Ratio 12.6 (10-20) Random Glucose 106 mg/dl (70-99) Calcium Level 8.6 mg/dl (8.5-10.1) Magnesium Level 1.7 mg/dl (1.8-2.4) Bedside Glucose 102 mg/dl (70-90) 87 mg/dl (70-90) Vancomycin Level Trough 14.9 mcg/ml (SEE COMMENT) Recent Pertinent Medications Item Value Date Time Aztreonam 2000 mg/ 110 ml @ 100 mls/hr 09/14/16 0000 Dextrose Q8@0000,0800,1600/IV 09/21/16 0837 Assessment & Plan 56yo female receiving VANCOMYCIN / AZTREONAM for osteomyelitis s/p L 3rd tow amputation. Renal function is stable. VANCOMYCIN: * Patient has been receiving VANCOMYCIN 1500mg IV q10h. * Trough level drawn prior to 1000 dose this am = 14.9 mcg/mL. * This drug level is Therapeutic. * Continue VANCOMYCIN 1500mg IV every 10 hours. * Goal trough level estimate: between 15 - 20 mcg/mL. * Will recheck a trough level in a few days or with any changes in renal function. Pharmacy will continue to follow and will adjust dose/frequency as necessary. Thank you
[2016-09-21 15:19] VITALS: BP_SYST 95; BP_SYST 98; BP_DIAS 63; BP_DIAS 67; PULSE 94; TEMP 36.8; O2SAT 91
[2016-09-21] MEDS: RIVAROXABAN 20 MG TAB PO SCH (16:08)
[2016-09-21 20:00] VITALS: O2SAT 91
[2016-09-21] MEDS: ESCITALOPRAM OXALATE 10 MG TAB PO SCH (20:38)
[2016-09-21] MEDS: ATORVASTATIN 40 MG TAB PO SCH (20:38)
[2016-09-21] MEDS: LISINOPRIL 5 MG TAB PO SCH (20:39)
[2016-09-21 20:45] VITALS: BP 117/68; PULSE 102; O2SAT 93
[2016-09-21 23:16] VITALS: BP 117/71; PULSE 91; TEMP 36.9; O2SAT 91
[2016-09-22] MEDS: OXYCODONE/ACETAMINOPHEN 10/325MG TAB PO PRN ×4 (01:03→18:49)
[2016-09-22] MEDS: VANCOMYCIN INJ 1,500 MG in SODIUM CHLORIDE 0.9% 500ML 500 ML IV SCH ×2 (05:02→16:55)
[2016-09-22 06:19] LABS: PARTIAL THROMBOPLASTIN RATIO 1.3
[2016-09-22 07:30] VITALS: BP 109/73; PULSE 96; TEMP 36.4; O2SAT 96
--- NOTE | 2016-09-22 07:54 | Anesthesiology Progress Note ---
Anesthesia Post Op Note Date & Time Sep 22, 2016 at 07:53 Vital Signs Pain Intensity: 7.0 Vital Signs Past 12 Hours Date Time Temp Pulse Resp B/P (MAP) Pulse Ox O2 Delivery O2 Flow Rate FiO2 09/22/16 07:30 36.4 96 20 109/73 (85) 96 09/21/16 23:16 36.9 91 18 117/71 (86) 91 Nasal Cannula 1.0 09/21/16 23:05 Nasal Cannula 2.0 09/21/16 20:45 102 20 117/68 (84) 93 Room Air 09/21/16 20:00 91 Room Air Notes Mental Status: alert / awake / arousable, participated in evaluation Pt Amnestic to Procedure: Yes Nausea / Vomiting: adequately controlled Pain: adequately controlled Airway Patency, RR, SpO2: stable & adequate BP & HR: stable & adequate Hydration State: stable & adequate Anesthetic Complications: no major complications apparent
[2016-09-22] MEDS: AZTREONAM IV 2,000 MG in DEXTROSE 5% 100ML 100 ML IV SCH ×3 (08:17→23:45)
[2016-09-22] MEDS: LACTOBACILLUS ACIDOPHILUS (FLORANEX) TAB PO SCH ×3 (08:19→17:09)
[2016-09-22] MEDS: MONTELUKAST SOD 10 MG TAB PO SCH (08:20)
[2016-09-22] MEDS: METOPROLOL SUCC 50MG EXT REL TAB PO SCH (08:20)
[2016-09-22] MEDS: CETIRIZINE HCL 10 MG TAB PO SCH (08:21)
[2016-09-22] MEDS: DILTIAZEM HCL 30 MG TAB PO SCH ×3 (08:21→20:50)
[2016-09-22] MEDS: BuPROPion SR 150 MG TABCR PO SCH (08:21)
[2016-09-22] MEDS: CYANOCOBALAMIN 500 MCG TAB (VIT B-12) PO SCH (08:21)
[2016-09-22] MEDS: MAGNESIUM OXIDE 400 MG TAB PO SCH ×2 (08:22→20:45)
[2016-09-22] MEDS: CHOLECALCIFEROL 1000 INTER.UNIT TAB PO SCH (08:22)
[2016-09-22] MEDS: HYDROCHLOROTHIAZIDE 25 MG TAB PO SCH (08:22)
[2016-09-22] MEDS: CALCIUM 600MG + VIT D 400 IU TAB PO SCH ×2 (08:23→20:44)
[2016-09-22] MEDS: INSULIN ASPART 100 UNITS/ML 3 ML PEN SC SCH ×4 (08:25→21:11)
--- NOTE | 2016-09-22 08:51 | Orthopedic Progress Note ---
Orthopedic Progress Note Date of Service Sep 22, 2016. Subjective Post OP Day: 3 Reports: feeling well, pain controlled w PO medications, Denies: complaints Objective calves soft nontender, N/V intact, dressing C/D/I, incision C/D/I, A&O x3 Date Time Temp Pulse Resp B/P (MAP) Pulse Ox O2 Delivery O2 Flow Rate FiO2 09/22/16 07:30 36.4 96 20 109/73 (85) 96 09/21/16 23:16 36.9 91 18 117/71 (86) 91 Nasal Cannula 1.0 09/21/16 23:05 Nasal Cannula 2.0 09/21/16 20:45 102 20 117/68 (84) 93 Room Air 09/21/16 20:00 91 Room Air 09/21/16 15:30 Room Air 09/21/16 15:19 36.8 94 16 95/63 (74) 91 98/67 (77) Laboratory Results 24 Hours: Test 09/22/16 08:31 Assessment & Plan Assessment: 56 y/o female POD #3 S/P left 3rd toe amputation. Plan: Continue IV antibx Packing removed completely from dorsal foot. New dressing applied with small adaptic pieces over the incisions, gauze, kerlix wrap and SANTI bandage. Heel WB only on the LLE. Ortho to sign off. OK for d/c when medicine feels patient is stable. F/U with Dr. Contreras's clinic in 1 week. Inhouse Planning Pain Management: Morphine DVT Prophylaxis: Heparin Drip Discharge Planning Discharge Planning: uncertain (when medicine feels patient is stable.)
--- NOTE | 2016-09-22 08:53 | Consultant Recommendations ---
Instruction Dean Recommendations Date of Service Sep 22, 2016. Instruction Dean Recommendations ACTIVITY RECOMMENDATIONS: Limitations: Heel weight bearing only if able to tolerate. Wear post op shoe when heel weightbearing. SPECIAL CARE INSTRUCTIONS: * Some drainage onto the dressing is normal and is no cause for alarm. * Some swelling is natural especially after walking. * When resting, keep your foot elevated above the level of your heart. * Call [facility] if you notice: -Increased drainage -Fever over 101 degrees F -Severe constant pain BANDAGE: * Leave bandage/cast in place unless otherwise directed. * If home nursing is coming to your house, they may change the dressing every other day using adaptic cut to the size of the incisions, gauze and kerlix wrap. * Keep bandage/cast dry at all times. PIN CARE: * Leave pins alone. * If pins come loose or fall out, notify physician. FOLLOW UP VISIT WITH DR. VU If appointment is not already scheduled: Please call [facility] after you get home today to schedule a follow-up appointment for [address] Vu at .
[2016-09-22 09:12] LABS: HEMATOCRIT 32.7 % (37-47); MEAN CELL VOLUME 101.2 fL (80-100); MEAN CORPUSCULAR HEMOGLOBIN 31.9 pg (25-34); MEAN CORPUSCULAR HGB CONC 31.5 g/dl (32-36); MEAN PLATELET VOLUME 10.6 fL (7.4-10.4); PLATELET COUNT 209 K/uL (130-400); RED BLOOD COUNT 3.23 M/uL (4.2-5.4)
[2016-09-22 09:28] LABS: CALCIUM 8.5 mg/dl (8.5-10.1)
[2016-09-22 09:30] LABS: BUN/CREATININE RATIO 14.3 (10-20); CREATININE 0.76 mg/dl (0.60-1.20); MAGNESIUM 1.7 mg/dl (1.8-2.4); POTASSIUM 3.7 mmol/L (3.5-5.1)
[2016-09-22] MEDS ORDERED: ALTEPLASE, RECOMBINANT 1 MG/ML 2 ML VIAL IV ONE (14:00)
[2016-09-22] MEDS ORDERED: MAGNESIUM SULFATE 1GM / D5W 1 GM in PREMIXED IN D5W 100 ML IV STA (14:15)
--- NOTE | 2016-09-22 15:07 | Hospitalist Progress Note ---
Hospitalist Progress Note Date of Service Sep 22, 2016. (Ariana Tapia ., RIGOBERTOC) Subjective Pt evaluation today including: conversation w/ patient, physical exam, chart review, lab review, review of inpatient medication list Pain: None PO Intake: Tolerating PO diet Voiding: no voiding problems Patient reports feeling well. She currently denies any pain in her left foot as she recently received a Percocet. Since the surgery, she has been having intermittent pain in her left hip that is worse with certain movements, but she currently denies any hip pain too. She does complain of some shortness of breath, especially when she's laying down. She has been requiring oxygen at nighttime when sleeping. The patient denies fevers, chills, sweats, chest pain , palpitations, claudication, cough, wheezing, nausea, vomiting, abdominal pain , dysuria, hematuria, urinary retention, paralysis, weakness, numbness and tingling. Additional Comments: See HPI for pertinent positives and negatives. All other systems reviewed and negative. (Ariana Tapia ., BALTAZAR-C) Objective Vital Signs Date Time Temp Pulse Resp B/P (MAP) Pulse Ox O2 Delivery O2 Flow Rate FiO2 09/22/16 08:30 Nasal Cannula 2.0 09/22/16 07:30 36.4 96 20 109/73 (85) 96 09/21/16 23:16 36.9 91 18 117/71 (86) 91 Nasal Cannula 1.0 09/21/16 23:05 Nasal Cannula 2.0 09/21/16 20:45 102 20 117/68 (84) 93 Room Air 09/21/16 20:00 91 Room Air 09/21/16 15:30 Room Air 09/21/16 15:19 36.8 94 16 95/63 (74) 91 98/67 (77) (Ariana Tapia ., BALTAZAR-C) Physical Exam Notes: General appearance: +Morbidly obese. Well-developed, well-nourished, no apparent distress Head: Normocephalic, atraumatic Eyes: Normal inspection, PERRL, EOMI ENT: Normal ENT inspection, hearing grossly normal, pharynx normal Neck: Supple, no JVD, trachea midline Respiratory/Chest: +Decreased breath sounds. Lungs clear to auscultation, normal breath sounds, no respiratory distress Cardiovascular: +Irregularly irregular. Regular rate. No gallop, no murmur Abdomen/GI: Normal bowel sounds, non-tender, soft Extremities/Musculoskeletal: +2+ pitting edema. Left foot wrapped in ricci bandage. Normal inspection, no calf tenderness Neurological/Psych: Alert, normal mood/affect, oriented x 3 Skin: Normal color, warm/dry, no rash (Ariana Tapia ., PA-C) Laboratory Results Last 24 Hours Test 09/21/16 16:25 09/21/16 20:31 09/22/16 05:35 09/22/16 07:42 Bedside Glucose 97 mg/dl 106 mg/dl 97 mg/dl Activated Partial Thromboplast Time 33.8 SECONDS Partial Thromboplastin Ratio 1.3 Test 09/22/16 08:31 09/22/16 11:19 White Blood Count 7.90 K/uL Red Blood Count 3.23 M/uL Hemoglobin 10.3 g/dL Hematocrit 32.7 % Mean Corpuscular Volume 101.2 fL Mean Corpuscular Hemoglobin 31.9 pg Mean Corpuscular Hemoglobin Concent 31.5 g/dl RDW Standard Deviation 53.7 fL RDW Coefficient of Variation 14.6 % Platelet Count 209 K/uL Mean Platelet Volume 10.6 fL Sodium Level 134 mmol/L Potassium Level 3.7 mmol/L Chloride Level 97 mmol/L Carbon Dioxide Level 27 mmol/L Anion Gap 10.0 mmol/L Blood Urea Nitrogen 11 mg/dl Creatinine 0.76 mg/dl Est Creatinine Clear Calc Drug Dose 108.5 ml/min Estimated GFR () 103.1 Estimated GFR (Non- 88.9 BUN/Creatinine Ratio 14.3 Random Glucose 125 mg/dl Calcium Level 8.5 mg/dl Magnesium Level 1.7 mg/dl Bedside Glucose 87 mg/dl (Ariana Tapia ., PA-C) Assessment and Plan 56 y/o female with PMHx of T2DM, A Fib S/P Cardioversion x 2, HTN, HLD, B12 Deficiency, and Chronic R Leg Infection on Bactrim who is admitted for L 3rd toe osteomyelitis. Left 3rd Toe Osteomyelitis w/overlying cellulitis--stable. S/p left 3rd toe amp w/Dr. Contreras, POD #3 - Aztreonam 2 g IV Q8H and Vancomycin per pharmacy dosing. Day #10 - ID consulted, appreciate recs: d/c clindamycin. Continue aztreonam and vancomycin - Blood cultures negative x 4, final - PICC line inserted 09/15 - Orthopedics consulted, appreciate recs: Heel weight bearing only for the LLE. F/u with Dr. Contreras's clinic in 1 week. 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 Associated cellulitis, wound and suspected 6 mm abscess which extends from the skin to the distal phalanx. In addition, marrow edema within the proximal and middle phalanges of the left third toe which could reflect developing osteomyelitis or osteitis. These bones are also abnormal. - Wound following - appreciate input and dressing/cleaning recommendations Atrial Fibrillation with RVR--stable, rate controlled - Transfer to telemetry 09/14. Transferred to medical floor 09/18 - Cardiology consulted, appreciate recs: No changes to AV jennifer agents. Resume Xarelto. Plan for outpatient ABIs and LE arterial duplex - Continue metoprolol succinate 200 mg PO qd - Increase diltiazem from 30 mg PO TID to 60 mg PO TID - Continue Xarelto 20 mg PO qd Hypomagnesemia--ongoing -Magnesium 1.7 on 09/22 -Magnesium sulfate 1 gm IV x 2 -Continue magnesium oxide 400 mg PO BID -Continue to monitor Hypoxia--short of breath when laying down, has been requiring nighttime oxygen -Will likely need formal sleep study when outpatient, suspect VALERIE -Overnight oximetry test for nighttime oxygen HTN--stable - Resume HCTZ 12.5 mg PO qd - Continue lisinopril 5 mg PO qd Diabetes mellitus type 2--stable - HgbA1c 6.1 on 09/15 - Hold Metformin - Insulin sliding scale - Check BSGs q ac and qhs Macrocytic Anemia - B12 Deficiency--stable - Continue B12 1000 mcg PO qd - Hgb stable HLD -Continue atorvastatin 40 mg PO qd Depression/Anxiety - Wellbutrin 150 mg PO qd and Lexapro 10 mg PO qd - Ativan increased to 1 mg PO QID prn anxiety DVT prophylaxis -Xarelto -SCDs Code Status -Level I, FULL RESUSCITATION STATUS (Ariana Tapia, PAJavierC) Reviewed: Pt Seen/Exam by Me (Nicky Vaughn MD) History 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 Discussed with BALTAZAR Tapia and agree with findings and plan as documented in the note. Any exceptions or clarifications are listed here: Pt feeling ok. Pain in left hip improved. VSS, rates controlled irreg irreg with normal rate CTAB no wcr ABd obese, +BS soft NT Ext: left leg in dressing not removed 56 yo female with DMII, GATO, DMII, DM peripheral neuropathy, morbid obesity, here with left 3rd toe OM now s/p amputation. -continue pain control, abx as above -will need Ortho f/u, Wound care f/u -macrocytosis likely secondary to EtOH intake excessive prior to admission- counseled previously on cessation -plan to return home on dc in 1-2 days Documented By: Nicky Vaughn (Nicky Vaughn MD)
[2016-09-22 15:23] VITALS: BP 89/55; PULSE 62; TEMP 36.3; O2SAT 92
[2016-09-22] MEDS ORDERED: MAGNESIUM SULFATE 1GM / D5W 1 GM in PREMIXED IN D5W 100 ML IV ONE (15:30)
[2016-09-22] MEDS: RIVAROXABAN 20 MG TAB PO SCH (17:09)
[2016-09-22] MEDS ORDERED: POTASSIUM CHLORIDE 20 MEQ TABCR PO STA (20:41)
[2016-09-22] MEDS: ATORVASTATIN 40 MG TAB PO SCH (20:45)
[2016-09-22] MEDS: ESCITALOPRAM OXALATE 10 MG TAB PO SCH (20:45)
[2016-09-22 20:48] VITALS: BP 112/77; PULSE 93
[2016-09-22] MEDS: LISINOPRIL 5 MG TAB PO SCH (20:50)
[2016-09-23 00:08] VITALS: BP 97/67; PULSE 65; TEMP 36.8; O2SAT 92
[2016-09-23] MEDS: MoRPHine SULFATE 4 MG/ML 1 ML CARP\\VIAL IV PRN (01:33)
[2016-09-23] MEDS: VANCOMYCIN INJ 1,500 MG in SODIUM CHLORIDE 0.9% 500ML 500 ML IV SCH (01:33)
[2016-09-23 05:54] LABS: HEMATOCRIT 31.8 % (37-47); MEAN CELL VOLUME 100.3 fL (80-100); MEAN CORPUSCULAR HEMOGLOBIN 31.2 pg (25-34); MEAN CORPUSCULAR HGB CONC 31.1 g/dl (32-36); MEAN PLATELET VOLUME 10.2 fL (7.4-10.4); PLATELET COUNT 231 K/uL (130-400); RED BLOOD COUNT 3.17 M/uL (4.2-5.4); WHITE BLOOD COUNT 7.85 K/uL (4.8-10.8)
[2016-09-23 06:05] LABS: PARTIAL THROMBOPLASTIN RATIO 1.5
[2016-09-23 06:20] LABS: CALCIUM 8.6 mg/dl (8.5-10.1); CREATININE 0.93 mg/dl (0.60-1.20); MAGNESIUM 2.4 mg/dl (1.8-2.4); POTASSIUM 4.2 mmol/L (3.5-5.1)
[2016-09-23 07:09] VITALS: BP 117/66; PULSE 91; TEMP 36.5; O2SAT 94
[2016-09-23] MEDS: INSULIN ASPART 100 UNITS/ML 3 ML PEN SC SCH ×2 (08:39→12:25)
[2016-09-23] MEDS: AZTREONAM IV 2,000 MG in DEXTROSE 5% 100ML 100 ML IV SCH (08:40)
[2016-09-23] MEDS: METOPROLOL SUCC 50MG EXT REL TAB PO SCH (08:41)
[2016-09-23] MEDS: HYDROCHLOROTHIAZIDE 25 MG TAB PO SCH (08:41)
[2016-09-23] MEDS: CYANOCOBALAMIN 500 MCG TAB (VIT B-12) PO SCH (08:41)
[2016-09-23] MEDS: BuPROPion SR 150 MG TABCR PO SCH (08:42)
[2016-09-23] MEDS: DILTIAZEM HCL 30 MG TAB PO SCH (08:42)
[2016-09-23] MEDS: MONTELUKAST SOD 10 MG TAB PO SCH (08:42)
[2016-09-23] MEDS: CETIRIZINE HCL 10 MG TAB PO SCH (08:42)
[2016-09-23] MEDS: MAGNESIUM OXIDE 400 MG TAB PO SCH (08:42)
[2016-09-23] MEDS: LACTOBACILLUS ACIDOPHILUS (FLORANEX) TAB PO SCH ×2 (08:43→12:26)
[2016-09-23] MEDS: CALCIUM 600MG + VIT D 400 IU TAB PO SCH (08:43)
[2016-09-23] MEDS: CHOLECALCIFEROL 1000 INTER.UNIT TAB PO SCH (08:43)
[2016-09-23] MEDS: OXYCODONE/ACETAMINOPHEN 10/325MG TAB PO PRN (11:13)
[2016-09-23] MEDS ORDERED: VANCOMYCIN TROUGH SCH (11:30)
[2016-09-23] MEDS ORDERED: OXYC-88 PO (14:06)
[2016-09-23] MEDS ORDERED: MGNO400 PO (14:06)
[2016-09-23] MEDS ORDERED: DILT0.05 PO (14:06)
--- NOTE | 2016-09-23 14:23 | Discharge Instructions ---
Discharge Instructions Date of Service Sep 23, 2016. Admission Reason for Admission: Sepsis, Toe Osteomyelitis -Left Discharge Discharge Diagnosis / Problem: Osteomyelitis Discharge Goals Goal(s): Decrease discomfort, Improve function, Diagnostic testing, Therapeutic intervention Activity Recommendations Activity Limitations: resume your previous activity (as tolerated) . Instructions / Follow-Up Instructions / Follow-Up You were admitted to the hospital with osteomyelitis (infection of the bone) in your left third toe. You were treated with IV antibiotics, and the affected toe was amputated by Dr. Vu on 09/19. Prior to the surgery, you developed atrial fibrillation with a rapid ventricular response, in which your heart was beating very rapidly in an irregular rhythm. Cardiology was consulted, and it appears that you are likely always in atrial fibrillation. As such, your flecainide was discontinued as your treatment strategy will now be on controlling your heart rate rather than controlling your rhythm. You were placed on diltiazem in addition to your metoprolol which successfully controlled your heart rate. You have now completed all of the necessary antibiotics and you are stable to return home with your sister and with home health services. During your stay, you were found to have difficulty breathing when laying down/ sleeping. An overnight pulse oximetry test was done, which shows that you qualify for night oxygen. Although this will be set up for you, for the halfway you will need to have a formal sleep study performed as an outpatient to see if you qualify for a CPAP machine, as this likely represents obstructive sleep apnea. Recommendations: *See orthopedic recommendations below. Medications: *STOP flecainide. *Take diltiazem extended release 180 mg by mouth once daily. *Take magnesium oxide 400 mg by mouth twice a day. *You may take Percocet 10/325 up to every hours as needed for pain. Only take this medication as prescribed. Do not drive or operate machinery when taking Percocet. *Continue your other home medications as prescribed. Follow up: *You have been scheduled to follow up with a primary care provider, Jhoana Kirk PA-C, on September 30 at 1 pm. *You have been scheduled to follow up with orthopedics with Dr. Vu on September 30, at 11:10 am. Please seek medical attention if you experience fevers, chills, sweats, chest pain, shortness of breath, nausea, vomiting, numbness or tingling, or if there is increased redness, swelling, tenderness, warmth, or drainage from your amputation site. Current Hospital Diet Patient's current hospital diet: Diabetes Type 2 Diet, AHA Diet (Heart Healthy) Discharge Diet Recommended Diet: AHA Diet (Heart Healthy), Diabetes Type 2 Diet Procedures Procedures Performed: Amputation left third toe Pending Studies Studies pending at discharge: no Laboratory Results Hemoglobin A1c Test 09/15/16 04:24 Range/Units Estimated Average Glucose 128 mg/dl Hemoglobin A1c 6.1 H 4.5-5.6 % Medical Emergencies . Who to Call and When: Medical Emergencies: If at any time you feel your situation is an emergency, please call 911 immediately. . Non-Emergent Contact Non-Emergency issues call your: Primary Care Provider Call Non-Emergent contact if: you have a fever, your pain is not controlled, your pain is worsening, your pain is unusual for you, your pain is concerning you, wound has increased drainage, wound has increased redness, wound has increased pain, you have any medication questions . . "Provider Documentation" section prepared by Ariana Tapia. . Metal Ceiling Hanger Recommendations Metal Ceiling Hanger Recommendations: ACTIVITY RECOMMENDATIONS: Limitations: Heel weight bearing only if able to tolerate. Wear post op shoe when heel weightbearing. SPECIAL CARE INSTRUCTIONS: * Some drainage onto the dressing is normal and is no cause for alarm. * Some swelling is natural especially after walking. * When resting, keep your foot elevated above the level of your heart. * Call [facility] if you notice: -Increased drainage -Fever over 101 degrees F -Severe constant pain BANDAGE: * Leave bandage/cast in place unless otherwise directed. * If home nursing is coming to your house, they may change the dressing every other day using adaptic cut to the size of the incisions, gauze and kerlix wrap. * Keep bandage/cast dry at all times. PIN CARE: * Leave pins alone. * If pins come loose or fall out, notify physician. FOLLOW UP VISIT WITH DR. VU If appointment is not already scheduled: Please call [facility] [place] after you get home today to schedule a follow-up appointment for [address] Vu at . VTE Core Measure Inpt VTE Proph given/why not?: Other Anticoagulation (heparin drip, then Xarelto) [place] Drug Monitoring Program Search Results: see additional documentation (not found in database)
[2016-09-23] MEDS ORDERED: DILTIAZEM HCL 120 MG ER CAP PO ONE (14:30)
[2016-09-23 14:32] VITALS: BP 117/66; PULSE 91; TEMP 36.5; O2SAT 94
--- NOTE | 2016-09-23 15:23 | Discharge Summary ---
Discharge Summary Date of Service Sep 23, 2016. (Ariana Tapia PA-C) Discharge Summary Admission Date: Sep 13, 2016 at 14:29 Discharge Date: Sep 23, 2016 Discharge Disposition: Home with services Principal Diagnosis: Osteomyelitis Problems/Secondary Diagnoses: T2DM A Fib S/P Cardioversion x 2 HTN HLD B12 Deficiency Chronic R Leg Infection Immunizations: Have You Had Influenza Vaccine: No History of Tetanus Vaccine?: Yes History of Pneumococcal: No History of Hepatitis B Vaccine: No Procedures: Patient: MILA RUVALCABA Admit Date: 09/13/1705/10/17 Med Rec: [id number] Acct ID: [id number] [~ rep ct labl] Page 2of 2 p: [~ rep prt dt last] [~ rep prt tm last] [~ rep ct labl] Page 1of 1 p: [~ rep prt dt last] [~ rep prt tm last] OPERATIVE REPORT Dorothy, PA Patient: MILA RUVALCABA Admit Date: 09/13/1705/10/17 Med Rec: [id number] Att Phy: John Dubon D.O. Acct ID: [id number] Fam Phy: Parveen Fishman M.D. Date: 1960 Ref Phy: Parveen Fishman M.D. Age: 56 Location: [facility] Sex: F Room/Bed: [facility] MNE:[facility] REPORT #: [id number] CC: Anderson Contreras D.O. Endcc: DICTATED BY: Anderson Contreras D.O. DATE OF OPERATION: 09/19/2016 PREOPERATIVE DIAGNOSES: Left third toe osteomyelitis. POSTOPERATIVE DIAGNOSIS: Same. PROCEDURE: Left third toe amputation. SURGEON: Dr. Contreras. STORE TEAM LEADER: Adriano Sanabria PA-C, who was present for patient positioning, sterile prep and drape, management of retractors and instruments. He was present through the critical portions of the case including wound closure, application of sterile dressing and transport of the patient to recovery. ANESTHESIA: Local with sedation. SPECIMENS: Left third toe. DRAINS: [id number] iodoform gauze x1. COMPLICATIONS: None. BLOOD LOSS: 10 mL PERTINENT HISTORY: This is a 56-year-old woman, who developed a left third toe osteomyelitis confirmed with radiographs and MRI. The patient had failed antibiotic therapy initially and was then scheduled for surgery as indicated to eradicate the osteomyelitis of the left third toe. All potential risks, benefits, complications, alternatives, rehab, potential for incomplete relief of symptoms, need for further surgery, DVT, PE, , persistent pain, swelling, scarring, weakness, neurovascular injury, wound complications were discussed with the patient. The patient decided to proceed with the procedure as indicated. DESCRIPTION OF PROCEDURE: The patient was taken to the operative suite, placed supine on the operating room table. After review of the consent and identification of proper operative site, the patient was sedated and the left lower extremity was then sterilely prepped and draped in usual fashion. Left lower extremity was then elevated and partially exsanguinated from the hindfoot proximally with a ____ Esmarch bandage applied over sterile surgical towel at the level of the ankle. There was no exsanguination performed to the forefoot or the toe due to the osteomyelitis. Next, the dorsal mid foot was injected with 0.5% Marcaine plain, approximately 10 mL in a field block. Next, the plantar digital nerves were injected in the medial and lateral aspects of the third metatarsal neck with 0.5% Marcaine approximately 5 mL Next, a 15 blade scalpel was then used to make a racket-type incision on the dorsal aspect of the left third toe extending circumferentially around the proximal phalanx of the left third toe. Next, the middle and distal phalanges were then easily resected with a rongeur. The bone was noted to be significantly soft and it could be easily cut with a 15 blade. No significant foul odor was noted. No obvious purulence was noted at this time. Significant serous discharge was noted. Next, a dorsal, medial and plantar capsular ligaments were transected with a 15 blade scalpel at the base of the proximal phalanx, left third toe. The proximal phalanx was then resected. The flexor tendon was then placed on stretch with a hemostat and transected with a 15 blade scalpel. It was then allowed to retract deep within the foot. Next, the wound was copiously irrigated with sterile normal saline. The skin flaps were then carefully trimmed with a 15 blade scalpel so that a no tension closure could be effected with 3-0 nylon. Final irrigation was performed with sterile normal saline followed by closure of the soft tissue and a tension-free closure with interrupted 3-0 nylon sutures. Next, a one-half inch iodoform gauze was then placed extending to the dorsal aspect of the foot through a small stab incision with a 15 blade scalpel. Next, a sterile compressive dressing was applied and wrapped with Elijah wraps. The tourniquet was released. The patient was then taken to recovery in stable condition. I attest to the content of the Intraoperative Record and any orders documented therein. Any exceptions are noted below. Dictated: [id number] Transcribed: 09/19/[id number] Signed: ES Anderson Contreras D.O. The status of this report is Draft. Draft = Not yet reviewed or approved by Medical Physician. Signed = Reviewed and approved by Medical Physician. Consultations: Orthopedics--Dr. Contreras/Dr. Orozco Cardiology--Dr. Martinez/Dr. Becker Infectious disease--Dr. Cyr (Ariana Tapia, PA-C) Problems/Secondary Diagnoses: Atrial Fibrillation with RVR FCI anticoagulation Hypomagnesemia VALERIE Macrocytic Anemia - B12 Deficiency and from EtOH abuse EtOH abuse Depression/Anxiety DM peripheral neuropathy Morbid obesity Procedures: PICC line insertion MRI left lower extremity: Findings consistent with 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 Associated cellulitis, wound and suspected 6 mm abscess which extends from the skin to the distal phalanx. In addition, marrow edema within the proximal and middle phalanges of the left third toe which could reflect developing osteomyelitis or osteitis. These bones are also abnormal Arterial Doppler Bilateral Lower Extremities: IMPRESSION: 1. Monophasic flow below the left knee, but no high velocity jets visualized to indicate a focal stenosis. 2. Normal bilateral ankle brachial indices of 1.1 CXR: 1. Moderate enlargement of the cardiac silhouette which has increased since prior exam. This could be technical although interval increase in size of the heart or a pericardial effusion could appear similar. 2. No evidence of pulmonary edema. 3. No lobar consolidation. RIGHT FOOT MIN 3 VIEWS ROUTINE CLINICAL HISTORY: Wound. Possible osteomyelitis. COMPARISON: None. DISCUSSION: There are postsurgical changes of an amputation at the level of the fifth metatarsal phalangeal joint. There are no acute fractures. There is no conventional radiographic evidence of acute osteomyelitis. There are soft tissue calcifications present within the lower calf. There are vascular calcifications present. There is a plantar calcaneal spur. There is a hallux valgus deformity. Degenerative changes are present the level the first metatarsal phalangeal joint. IMPRESSION: Postsurgical change. No conventional radiographic evidence of acute osteomyelitis. Left Toe xray: IMPRESSION: Soft tissue swelling of the left third toe with destruction of the mid to distal aspect of the distal phalanx of the left third toe consistent with osteomyelitis given the clinical history (Nicky Vaughn MD) Medication Reconciliation New Medications: Diltiazem HCl Coated Beads (Diltiazem HCl ER) 180 Mg Tab 180 MG PO DAILY for 30 Days, #30 TABS Magnesium Oxide (Magnesium-Oxide) 400 Mg Tab 400 MG PO BID for 30 Days, #60 TAB Oxycodone/Acetaminophen 10MG/325MG (Oxycodone/Acetaminophen 10MG/325MG) 1 Tab Tab 1 TAB PO Q4H PRN for Pain for 3 Days, #12 TAB May take 1 tablet up to every 4 hours as needed for pain. Continued Medications: Albuterol Sulfate (Proair Respiclick) 108 Mcg/Act Aer 2 PUFFS INH q4-6h PRN for SOB/Wheezing Atorvastatin (Lipitor) 40 Mg Tab 40 MG PO QPM, TAB Bupropion (Wellbutrin Sr) 150 Mg Ertab 150 MG PO DAILY, TAB Calcium W/ Magnesium (Calcium & Magnesium) 1 Tab Tab 64-106 MG PO BID Cetirizine (Zyrtec) 10 Mg Tab 10 MG PO DAILY, TAB Cholecalciferol (Vitamin D3) 1,000 Unit Tab 1 TAB PO DAILY for 30 Days, #30 TAB 5 Refills Cyanocobalamin (Vitamin B-12) 1,000 Mcg Tab 1000 MCG PO DAILY, TAB Escitalopram (Lexapro) 10 Mg Tab 10 MG PO HS, 0 Refills Fluticasone Prop/Salmeterol (Advair Diskus 250/50 60 Dose) 1 Ea Aerp 1 PUFFS INH DAILY for 90 Days, #3 INHALER 3 Refills Hydrochlorothiazide (Hydrochlorothiazide) 12.5 Mg Tab 1 TAB PO DAILY for 90 Days, #90 TAB 3 Refills Lisinopril (Zestril) 5 Mg Tab 5 MG PO QPM, TAB Lorazepam (Ativan) 0.5 Mg Tab 0.25-0.5 MG PO BID PRN for Anxiety/Agitation, TAB Metformin Hcl (Glucophage) 1,000 Mg Tab 1000 MG PO BID, TAB Metoprolol Succinate (Toprolxl (Toprol-Xl) 200 Mg Tabcr 200 MG PO DAILY, TAB Montelukast Sodium (Montelukast Sodium) 10 Mg Tab 1 TAB PO DAILY for 90 Days, #90 TAB 3 Refills Naproxen (Aleve) 220 Mg Tab 220 MG PO Q12 PRN for Pain, TAB Rivaroxaban (Xarelto) 20 Mg Tab 1 TAB PO DAILY for 30 Days, #30 TAB 11 Refills Sulfa/Trimethoprim (Bactrim Ds 800MG/160MG) Tab 1 TAB PO BID, #6 TAB Discontinued Medications: Flecainide (Tambocor) 100 Mg Tab 100 MG PO BID for 30 Days, #60 TAB 6 Refills Discharge Exam Patient reports feeling well. She denies any hip pain today. She currently rates her left foot pain as a 2/10 aching pain as she recently took a Percocet. She was able to ambulate with physical therapy today. The patient denies fevers, chills, sweats, chest pain, palpitations, claudication, cough, wheezing , shortness of breath, nausea, vomiting, abdominal pain, dysuria, hematuria, urinary retention, paralysis, weakness, numbness and tingling. Review of Systems: Constitutional: No fever, No chills, No sweats Eyes: No worsening of vision, No eye pain, No diplopia ENT: No hearing loss, No sore throat, No trouble swallowing Respiratory: No cough, No wheezing, No shortness of breath Cardiovascular: No chest pain, No claudication, No palpitations Abdomen: No pain, No nausea, No vomiting Musculoskeletal: + joint pain (left foot 2/10), No muscle pain, No calf pain Genitourinary - Female: No dysuria, No urinary retention, No hematuria Neurologic: No paralysis, No weakness, No numbness/tingling (nothing acute, has baseline neuropathy) Integumentary: No rash, No itch, No color change Physical Exam: General Appearance: WD/WN, no apparent distress, + obese (morbidly obese) Eyes: normal inspection, PERRL, EOMI ENT: normal ENT inspection, hearing grossly normal, pharynx normal Neck: supple, no JVD, trachea midline Respiratory/Chest: lungs clear, normal breath sounds, no respiratory distress Cardiovascular: no gallop, no murmur, + irregularly irregular (regular rate) Abdomen / GI: normal bowel sounds, non tender, soft Extremities: no calf tenderness, + swelling (2+ pitting edema), + pertinent finding (left foot wrapped in elijah bandage) Neurologic/Psychiatric: alert, normal mood/affect, oriented x 3 Skin: normal color, warm/dry, no rash (Ariana Tapia, BRANDEE) Hospital Course 56 y/o female with PMHx of T2DM, A Fib S/P Cardioversion x 2, HTN, HLD, B12 Deficiency, and Chronic R Leg Infection on Bactrim who is admitted for L 3rd toe osteomyelitis. Left 3rd Toe Osteomyelitis w/overlying cellulitis--stable. S/p left 3rd toe amp w/Dr. Contreras, POD #4 - Aztreonam 2 g IV Q8H and Vancomycin per pharmacy dosing. Received total 11 days IV abx, 4 of which were following amputation. Pt may discontinue abx on discharge. - ID consulted, appreciate recs: Spoke with ID, pt has completed adequate course of abx - Blood cultures negative x 4, final - PICC line inserted 09/15, removed 09/23 - Orthopedics consulted, appreciate recs: Heel weight bearing only for the LLE. F/u with Dr. Contreras's clinic in 1 week. 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 Associated cellulitis, wound and suspected 6 mm abscess which extends from the skin to the distal phalanx. In addition, marrow edema within the proximal and middle phalanges of the left third toe which could reflect developing osteomyelitis or osteitis. These bones are also abnormal. - Wound following - appreciate input and dressing/cleaning recommendations Atrial Fibrillation with RVR--stable, rate controlled - Transfer to telemetry 09/14. Transferred to medical floor 09/18 - Cardiology consulted, appreciate recs: No changes to AV jennifer agents. Resume Xarelto. Plan for outpatient ABIs and LE arterial duplex - Continue metoprolol succinate 200 mg PO qd - Increased diltiazem from 30 mg PO TID to 60 mg PO TID - Converted short acting diltiazem to extended release diltiazem 180 mg PO qd - Continue Xarelto 20 mg PO qd Hypomagnesemia--resolved -Magnesium 1.7 on 09/22 -Magnesium sulfate 1 gm IV x 2 -Magnesium up to 2.4 on 09/23 -Continue magnesium oxide 400 mg PO BID -Continue to monitor Hypoxia--short of breath when laying down, has been requiring nighttime oxygen -Will need formal sleep study when outpatient, suspect VALERIE -Overnight oximetry test for nighttime oxygen shows single event lasting over 84 minutes where saturation was less than 88% -Script for 2L NC at night given HTN--stable - Resume HCTZ 12.5 mg PO qd - Continue lisinopril 5 mg PO qd Diabetes mellitus type 2--stable - HgbA1c 6.1 on 09/15 - Hold Metformin - Insulin sliding scale - Check BSGs q ac and qhs Macrocytic Anemia - B12 Deficiency--stable - Continue B12 1000 mcg PO qd - Hgb stable HLD -Continue atorvastatin 40 mg PO qd Depression/Anxiety - Wellbutrin 150 mg PO qd and Lexapro 10 mg PO qd - Ativan increased to 1 mg PO QID prn anxiety' Chronic RLE infection -Continue Bactrim as prescribed DVT prophylaxis -Xarelto -SCDs Code Status -Level I, FULL RESUSCITATION STATUS Dispo -D/C to home with sister and with home health services -F/u appts scheduled for PCP, ortho and cardio Total Time Spent: Greater than 30 minutes This includes examination of the patient, discharge planning, medication reconciliation, and communication with other providers. (Ariana Tapia .BRANDEE) Discharge Instructions Please refer to the electronic Patient Visit Report (Discharge Instructions) for additional information. (Ariana Tapia PA-C) Additional Copies To Jhoana Kirk PA-C; Pro,Parveen Copeland M.D. Reviewed: Pt Seen/Exam by Me (Nicky Vaughn MD) History Physician Laboratory Technician Supervision Note: I interviewed and examined the patient. Discussed with BALTAZAR Tapia and agree with findings and plan as documented in the note. Any exceptions or clarifications are listed here: Pt doing well, ready for discharge. Will be going to stay with her sister for recovery period. Rates controlled in A-fib, pain controlled. Home O2 being delivered this evening. VSS, rates controlled irreg irreg with normal rate CTAB no wcr ABd obese, +BS soft NT Ext: left leg in dressing and walking boot not removed 56 yo female with DMII, GATO, DMII, DM peripheral neuropathy, morbid obesity, here with left 3rd toe OM now s/p amputation. -continue pain control, abx to be discontinued now s/p amputation of OM/ infection -will need Ortho f/u, Wound care f/u as outpatient -encouraged weight loss -needs formal sleep study for CPAP as outpatient -macrocytosis likely secondary to EtOH intake excessive prior to admission- counseled on cessation -f/u with Cardiology as outpatient for rapid a-fib which seems to be better controlled now -changed diltiazem 60mg tid to long acting Diltiazem ER 180mg daily Documented By: Nicky Vaughn (Nicky Vaughn MD)
[2016-09-23] MEDS ORDERED: BUPR-267 PO (16:16)
[2016-09-23] MEDS ORDERED: VANCOMYCIN INJ 1,500 MG in SODIUM CHLORIDE 0.9% 500ML 500 ML IV SCH (18:00)
[2016-09-25] MEDS ORDERED: VANCOMYCIN TROUGH SCH (05:30)
== END 2016-09-23 16:15 | disposition home health service (06) | DRG 854 ==
LOC: C.EDB 11:50 → C.MS2W 14:29 → ENRESERV 15:15 → C.2T 09-14 09:55 → CANRESERV 09-18 11:14 → ENRESERV 09-18 11:14 → C.MED 09-18 13:16
PROVIDERS: ADMIT Hospitalist; ATTEND Family Medicine
PROC: 05HB33Z Insertion of Infusion Device into Right Basilic Vein, Percutaneous Approach (ICD-10-PCS; 2016-09-15)
PROC: 0Y6U0Z0 Detachment at Left 3rd Toe, Complete, Open Approach (ICD-10-PCS; principal; 2016-09-19 10:45)
DX: A41.9 Sepsis, unspecified organism (principal); M86.172 Other acute osteomyelitis, left ankle and foot; E11.69 Type 2 diabetes mellitus with other specified complication; I48.91 Unspecified atrial fibrillation; I10 Essential (primary) hypertension; E78.5 Hyperlipidemia, unspecified; E53.8 Deficiency of other specified B group vitamins; L03.032 Cellulitis of left toe; E83.42 Hypomagnesemia; R09.02 Hypoxemia; D53.9 Nutritional anemia, unspecified; F32.9 Major depressive disorder, single episode, unspecified; F41.9 Anxiety disorder, unspecified; L08.9 Local infection of the skin and subcutaneous tissue, unspecified; G62.9 Polyneuropathy, unspecified; E66.01 Morbid (severe) obesity due to excess calories; Z89.421 Acquired absence of other right toe(s); Z83.3 Family history of diabetes mellitus; Z82.49 Family history of ischemic heart disease and other diseases of the circulatory system; J30.2 Other seasonal allergic rhinitis; J45.909 Unspecified asthma, uncomplicated

== ENCOUNTER 2016-10-30 08:45 | Inpatient (IN) | payer BC ==
[~2016-10-30] VITALS: Ht 160 cm; Wt 118.0 kg
[~2016-10-30 08:45] MED LIST changes: +ALBU18002 INH; -ALBU1AER9 INH; +BUPR-267 PO; -BUPR-79 PO; +CALC-214 PO; -CALCIUM PO; +CETI10TA84 PO; +DILT0.05 PO; -FLEC100T21 PO; -GLC500 PO; +METF-384 PO; -METO-649 PO; +METO1TAB71 PO; +MGNO400 PO; +MONT1TAB5 PO; +OXYC-88 PO; -SLOW MAG PO; -SNG10 PO; -XRL10 PO
[2016-10-30 09:41] LABS: BASO % 0.3 %; BASO ABS # 0.02 K/uL (0-0.2); COMPLETE YES; EOS % 3.8 %; HEMATOCRIT 34.5 % (37-47); IG% 0.3 %; LYMPH % 20.3 %; LYMPH ABS # 1.41 K/uL (1.2-3.4); MEAN CELL VOLUME 97.2 fL (80-100); MEAN CORPUSCULAR HGB CONC 31.9 g/dl (32-36); MEAN PLATELET VOLUME 9.7 fL (7.4-10.4); MONO % 6.6 %; NEUT % 68.7 %; PLATELET COUNT 227 K/uL (130-400); RED BLOOD COUNT 3.55 M/uL (4.2-5.4); WHITE BLOOD COUNT 6.93 K/uL (4.8-10.8)
--- NOTE | 2016-10-30 09:59 | DIAGNOSTIC IMAGING REPORT ---
LEFT TOE(S) MIN 2 VIEWS CLINICAL HISTORY: l 1st toe w erythema pain. Edema. COMPARISON: 09/13/2016 DISCUSSION: Generalized soft tissue edematous change throughout the great toe. There is very subtle loss of cortical margin at the base of the distal phalanx. Possibility of early osteomyelitis is considered. The osseous structures otherwise show considerable degenerative change. IMPRESSION: Considerable soft tissue swelling about the great toe with potential early osteomyelitis base distal phalanx. The above report was generated using voice recognition software. It may contain grammatical, syntax or spelling errors. Electronically signed by: Gerardo Moss M.D. 10/30/2016 9:58 AM Dictated Date/Time: 10/30/2016 9:55 AM
[2016-10-30 10:01] LABS: BUN/CREATININE RATIO 17.4 (10-20); CALCIUM 9.2 mg/dl (8.5-10.1); CREATININE 0.85 mg/dl (0.60-1.20); POTASSIUM 4.4 mmol/L (3.5-5.1)
[2016-10-30] MEDS ORDERED: CRD200 PO (10:05)
[2016-10-30] MEDS ORDERED: VANCOMYCIN 1GM/270ML NSS IV STA (11:21)
[2016-10-30] MEDS ORDERED: VANCOMYCIN INJ 2,000 MG in SODIUM CHLORIDE 0.9% 500ML 500 ML IV SCH (11:30)
[2016-10-30 11:45] VITALS: O2SAT 95; Ht 160 cm; Wt 118.0 kg
[2016-10-30] MEDS ORDERED: MAGNESIUM HYDROXIDE SUSP 30 ML UDC PO PRN (14:15)
[2016-10-30] MEDS ORDERED: GLUCOSE 10 TABS/TUBE PO PRN ×2 (14:15→14:45)
[2016-10-30] MEDS ORDERED: ZOLPIDEM TARTRATE 5 MG TAB PO PRN (14:15)
[2016-10-30] MEDS ORDERED: DEXTROSE 50% 50 ML SYR IV PRN ×2 (14:15→14:45)
[2016-10-30] MEDS ORDERED: GLUCOSE 40% GEL 15 GM TUBE PO PRN ×2 (14:15→14:45)
[2016-10-30] MEDS ORDERED: ALUMINUM/MAGNESIUM/SIMETH (MAALOX MAX) 30 ML UDC PO PRN (14:15)
[2016-10-30] MEDS ORDERED: ACETAMINOPHEN 325 MG TAB PO PRN (14:15)
[2016-10-30] MEDS ORDERED: GLUCAGON FOR INJ 1 MG VIAL SQ PRN ×2 (14:15→14:45)
[2016-10-30] MEDS ORDERED: DC ALL PREVIOUSLY ORDERED DIABETES MEDS ONE (14:15)
[2016-10-30] MEDS ORDERED: PHARMACY GLYCEMIC MGMT CONSULT PRN (14:33)
--- NOTE | 2016-10-30 14:56 | HISTORY & PHYSICAL EXAMINATION ---
DATE OF ADMISSION: 10/30/2016 CHIEF COMPLAINT: Pain in left big toe and swelling. HISTORY OF PRESENT ILLNESS: The patient is a 56-year-old female with history of diabetes mellitus, atrial fibrillation who recently had a third left toe amputation last month here in the hospital. She was sent from her primary physician with left toe swelling, erythema, most likely osteomyelitis in left toe. [place] mentioning patient does have right total knee replacement in the past and currently on chronic suppression for osteomyelitis on that joint. She is on Bactrim twice a day which makes the treatment choices little bit challenging adding to that her penicillin allergy. REVIEW OF SYSTEMS: Denies any headache, double vision, blurry vision. Denies any chest pain or palpitation. Denies any cough, wheezing, shortness of breath. Denies any diarrhea, blood in the stool. Denies any burning sensation in the urine or blood. Denies any focal weakness, tingling, numbness. Admits to pain in her left toe. Rest of the review of system is negative. PAST MEDICAL HISTORY: 1. Diabetic foot ulcers status post third left toe amputation. 2. Anxiety. 3. Chronic osteomyelitis in right knee status post total knee replacement in the past, infected prosthesis on chronic suppression with Bactrim. 4. Paroxysmal Afib on Xarelto. 5. Diabetes mellitus. 6. Dyslipidemia. 7. Hypertension. 8. Anxiety. 9. Asthma. FAMILY HISTORY: Positive for cancer/heart disease and diabetes. SOCIAL HISTORY: She is a former smoker. Currently single, lives by herself and employed. She said that she drinks a glass of wine daily. HOME MEDICATIONS: Amiodarone 200 mg p.o. b.i.d., atorvastatin 40 mg p.o. daily, calcium supplement, Zyrtec and vitamin D supplements, vitamin B12, Lexapro 10 mg at bedtime, Advair Diskus 250/50 inhalation, hydrochlorothiazide/lisinopril, magnesium, metformin 1000 mg p.o. b.i.d., metoprolol succinate 200 mg daily, montelukast 1 tab daily, Xarelto 1 tab daily, Bactrim-DS 1 tab p.o. b.i.d., bupropion 150 p.o. daily. ALLERGIES: INCLUDE PENICILLIN. PHYSICAL EXAMINATION: VITAL SIGNS: Temperature is 36.7, heart rate is 81, respirations 17, blood pressure 140/90, pulse ox 93% room air. GENERAL: The patient is obese with no acute distress. HEAD, EYES, EARS, NOSE, AND THROAT: No jaundice, no pallor with mucous membranes. NECK: Supple. HEART: S1, S2 normal. No gallop, rub or murmur. LUNGS: Clear to auscultation bilaterally. Normal chest wall expansion. ABDOMEN: Soft, nontender, nondistended. NEUROLOGIC: Awake, alert, oriented to time, place, and person. Moves all extremities. Sensation intact. Cranial nerves II-XII appear to be intact. EXTREMITIES: Left toe swollen, tender and erythematous. PSYCHIATRIC: Appropriate affect, normal process of thinking. SKIN: No rash or erythema in exposed skin area. IMAGING: X-ray, 2 view left toe showed considerable soft tissue swelling. Great toe with potential early osteomyelitis at the base of the distal phalanx. LABORATORY DATA: White blood cell count 6.9, hemoglobin 11, and platelet 227. BUN is 15, creatinine 0.85, sodium 131, potassium is 4.4. ASSESSMENT: A 56-year-old lady with a history of diabetes, presented with what seems to be osteomyelitis in left big toe. 1. Left big toe cellulitis with most likely osteomyelitis. 2. Diabetes mellitus. 3. Hypertension. 4. Dyslipidemia. 5. Chronic atrial fibrillation. 6. History of recent third left toe amputation. 7. 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 PLAN: 1. Given the complexity of her case, the patient is already on chronic suppression with Bactrim-DS twice a day which is certainly a big dose. Yet on top of that, she developed osteomyelitis on her big toe also. Adding to the complexity, she had penicillin allergy. At this point she does not appear to be toxic. Does not appear to be in sepsis. Does not appear to be bacteremic. No fever or chills. Normal white blood cell count and vitals. Although she does have a prosthesis that we would like to protect waiting 1 day on the antibiotic might not cause significant harm. Discussed the case with orthopedics. Will hold Xarelto today. We will wait on the antibiotics today. Will not give any antibiotics today. Tomorrow we are just going to order MRI with contrast and sed rate, CRP as a baseline. Tomorrow she will go for possibly debridement versus bone biopsy versus amputation if the MRI shows any osteomyelitis based on MRI results. 2. We will consult ID for followup given the complexity of her case. 3. Obtain basic labs in a.m., including hemoglobin A1c to stratify her risk. 4. Continue Bactrim for her infected right prosthesis chronic suppression. 5. While her Xarelto is on hold if it will be more than 2 days please remember to start her on DVT prophylaxis at least if not another form of anticoagulation to bridge her, but currently it is going to be still in her system so we will not start any of that during the admission.
--- NOTE | 2016-10-30 15:23 | EMERGENCY ROOM VISIT NOTE ---
History Report prepared by Tha: Mouna Hoffman Under the Supervision of: Dr. Orestes Rodriguez D.O. First contact with patient: 08:53 Chief Complaint: TOE PAIN, INJURY Stated Complaint: SWELLING TO BIG TOE ON LEFT FOOT History of Present Illness The patient is a 56 year old female who presents to the Emergency Room with complaints of worsening left great toe edema that started yesterday. The patient had surgery on her left great toe in September and her left foot has been mildly edematous since then but yesterday it was significantly worse. The patient denies any pain in her left foot. She states that she has neuropathy but only experiences intermittent tingling in her feet and can still feel pain. She denies fevers, chest pain, nausea, vomiting, and diarrhea. The patient is on Xarelto for atrial fibrillation. The patient states that she experiences shortness of breath at baseline with her chronic atrial fibrillation. She states that the shortness of breath has not been worse recently. She states that she has been compliant with her medications. The patient has diabetes. She denies any history of gout. The patient is on Bactrim at baseline for a bone infection in her knee. The patient denies recent trauma to her toe as well as recent falls. Source of History: patient Onset: yesterday Position: toe(s) (left great toe) Quality: other (edema) Timing: worsening Associated Symptoms: + SOB, No fevers, No chills, No chest pain, No nausea, No vomiting, No diarrhea Note: no left foot pain Review of Systems See HPI for pertinent positives & negatives. A total of 10 systems reviewed and were otherwise negative. Past Medical & Surgical Medical Problems: (1) Abscess or cellulitis of foot (2) Anxiety (3) Asthma (4) cellulitis (5) Cellulitis of third toe, left (6) Cellulitis of third toe, left (7) Depression (8) Diabetes (9) Diabetic foot infection (10) Hypercholesteremia (11) Hypertension (12) Osteomyelitis (13) Paroxysmal a-fib Surgical Problems: (1) History of knee replacement procedure of right knee (2) Post-operative state Family History Diabetes mellitus FHx: cancer FHx: heart disease Hypertension Kidney disease Kidney stones Social History Smoking Status: Former Smoker Alcohol Use: none Drug Use: none Marital Status: single Housing Status: lives with family Occupation Status: employed Current/Historical Medications Scheduled Amiodarone HCl (Amiodarone HCl), 200 MG PO BID Atorvastatin (Lipitor), 40 MG PO QPM Bupropion Hcl (Bupropion Hcl Er), 150 MG PO DAILY Calcium W/ Magnesium (Calcium & Magnesium), 64-106 MG PO BID Cetirizine (Zyrtec), 10 MG PO DAILY Cholecalciferol (Vitamin D3), 1 TAB PO DAILY Cyanocobalamin (Vitamin B-12), 1,000 MCG PO DAILY Escitalopram (Lexapro), 10 MG PO HS Fluticasone Prop/Salmeterol (Advair Diskus 250/50 60 Dose), 1 PUFFS INH DAILY Hydrochlorothiazide (Hydrochlorothiazide), 1 TAB PO DAILY Lisinopril (Zestril), 5 MG PO QPM Magnesium Oxide (Magnesium-Oxide), 400 MG PO BID Metformin Hcl (Glucophage), 1,000 MG PO BID Metoprolol Succinate (Toprolxl (Toprol-Xl), 200 MG PO DAILY Montelukast Sodium (Montelukast Sodium), 1 TAB PO DAILY Rivaroxaban (Xarelto), 1 TAB PO DAILY Sulfa/Trimethoprim (Bactrim Ds 800MG/160MG), 1 TAB PO BID Scheduled PRN Albuterol Sulfate (Proair Respiclick), 2 PUFFS INH q4-6h PRN for SOB/Wheezing Lorazepam (Ativan), 0.25-0.5 MG PO BID PRN for Anxiety/Agitation Naproxen (Aleve), 220 MG PO Q12 PRN for Pain Allergies Coded Allergies: Penicillins (Verified Allergy, Unknown, UNKNOWN, 03/19/15) Physical Exam Vital Signs Date Time Temp Pulse Resp B/P (MAP) Pulse Ox O2 Delivery O2 Flow Rate FiO2 10/30/16 13:59 87 16 117/81 96 10/30/16 12:38 81 17 142/94 93 Room Air 10/30/16 11:45 95 Room Air 10/30/16 10:44 89 16 129/84 95 10/30/16 08:50 36.7 89 18 161/88 95 Room Air Physical Exam GENERAL: alert, sitting up in bed, morbidly obese, disheveled, tearful, well appearing, well nourished, no acute distress, non-toxic EYE EXAM: normal conjunctiva OROPHARYNX: no exudate, no erythema, lips, buccal mucosa, and tongue normal and mucous membranes are moist NECK: supple, no nuchal rigidity, no adenopathy, non-tender LUNGS: Clear to auscultation. Normal chest wall mechanics HEART: Distant, no murmurs, S1 normal and S2 normal ABDOMEN: abdomen soft, non-tender, normo-active bowel sounds, no masses, no rebound or guarding. BACK: Back is symmetrical on inspection and there is no deformity, no midline tenderness, no CVA tenderness. SKIN: no rashes and no bruising UPPER EXTREMITIES: upper extremities are grossly normal. LOWER EXTREMITIES: Full range of motion of left hip, knee, and ankle, left first toe with erythema tracking to distal MTP, worse on the medial aspect, no purulent drainage, toe is edematous, nontender to palpation, skin intact. NEURO EXAM: Normal sensorium, cranial nerves II-XII grossly intact, normal speech, no gross weakness of arms, no gross weakness of legs. Medical Decision & Procedures ER Provider Diagnostic Interpretation: Radiology results as stated below per my review and the radiologist's interpretation: LEFT TOE(S) MIN 2 VIEWS DISCUSSION: Generalized soft tissue edematous change throughout the great toe. There is very subtle loss of cortical margin at the base of the distal phalanx. Possibility of early osteomyelitis is considered. The osseous structures otherwise show considerable degenerative change. IMPRESSION: Considerable soft tissue swelling about the great toe with potential early osteomyelitis base distal phalanx. The above report was generated using voice recognition software. It may contain grammatical, syntax or spelling errors. Electronically signed by: Gerardo Moss M.D. 10/30/2016 9:58 AM Dictated Date/Time: 10/30/2016 9:55 AM Laboratory Results 10/30/16 09:30 Red Blood Count 3.55, Mean Corpuscular Volume 97.2, Mean Corpuscular Hemoglobin 31.0, Mean Corpuscular Hemoglobin Concent 31.9, Mean Platelet Volume 9.7, Neutrophils (%) (Auto) 68.7, Lymphocytes (%) (Auto) 20.3, Monocytes (%) (Auto) 6.6, Eosinophils (%) (Auto) 3.8, Basophils (%) (Auto) 0.3, Neutrophils # (Auto) 4.76, Lymphocytes # (Auto) 1.41, Monocytes # (Auto) 0.46, Eosinophils # (Auto) 0.26, Basophils # (Auto) 0.02 10/30/16 09:30 Test 10/30/16 09:30 White Blood Count 6.93 K/uL (4.8-10.8) Red Blood Count 3.55 M/uL (4.2-5.4) Hemoglobin 11.0 g/dL (12.0-16.0) Hematocrit 34.5 % (37-47) Mean Corpuscular Volume 97.2 fL (80-100) Mean Corpuscular Hemoglobin 31.0 pg (25-34) Mean Corpuscular Hemoglobin Concent 31.9 g/dl (32-36) Platelet Count 227 K/uL (130-400) Mean Platelet Volume 9.7 fL (7.4-10.4) Neutrophils (%) (Auto) 68.7 % Lymphocytes (%) (Auto) 20.3 % Monocytes (%) (Auto) 6.6 % Eosinophils (%) (Auto) 3.8 % Basophils (%) (Auto) 0.3 % Neutrophils # (Auto) 4.76 K/uL (1.4-6.5) Lymphocytes # (Auto) 1.41 K/uL (1.2-3.4) Monocytes # (Auto) 0.46 K/uL (0.11-0.59) Eosinophils # (Auto) 0.26 K/uL (0-0.5) Basophils # (Auto) 0.02 K/uL (0-0.2) RDW Standard Deviation 53.2 fL (36.4-46.3) RDW Coefficient of Variation 15.2 % (11.5-14.5) Immature Granulocyte % (Auto) 0.3 % Immature Granulocyte # (Auto) 0.02 K/uL (0.00-0.02) Erythrocyte Sedimentation Rate 21 mm/hr (0-21) Anion Gap 6.0 mmol/L (3-11) Est Creatinine Clear Calc Drug Dose 93.9 ml/min Estimated GFR () 90.0 Estimated GFR (Non- 77.7 BUN/Creatinine Ratio 17.4 (10-20) Calcium Level 9.2 mg/dl (8.5-10.1) C-Reactive Protein 0.89 mg/dl (0-0.29) Laboratory results per my review. ED Course ED COURSE: Vital signs were reviewed and showed hypertension. The patients medical record was reviewed The above diagnostic studies were performed and reviewed. ED treatments and interventions as stated above. 0915: The patient was evaluated in room B4. A complete history and physical examination was performed. 1033: I reviewed the patient's case with Manas Bradshaw PA-C - Orthopedic Surgery. He is going to discuss the patient's case with Dr. Contreras. 1102: Manas Bradshaw evaluated the patient. He said that the patient is a nonsurgical candidate. He recommends admitting her to medicine to start IV antibiotics. 1123: Upon reevaluation, the patient is resting comfortably. I discussed my findings with the patient and she understands and agrees with the treatment plan. Based on the patients age, coexisting illnesses, exam and lab findings the decision to treat as an inpatient was made. The patient remained stable while under my care. The patient will be evaluated for further management. 1130: I reviewed the patient's case with Dr. Amairani Dhaliwal of the [facility]. He will evaluate the patient for further management. Medical Decision Differential diagnosis includes etiologies such as cellulitis, abscess, MRSA infection, DVT, necrotizing fasciitis, dermatitis, drug eruption, as well as others were entertained. Patient is a 56-year-old female who presents the ER for left first toe swelling , and erythema. Patient is a history of diabetes. X-ray show possible ostia. CBC and BMP were unremarkable. Discussed with orthopedics who recommended admission to internal medicine and IV antibiotics. Patient remained hemodynamic were stable. She is updated bedside. Admitted to internal medicine for further workup. Medication Reconcilliation Current Medication List: was personally reviewed by me Blood Pressure Screening Patient's blood pressure: Elevated blood pressure Blood pressure disposition: Elevated BP felt to be situational Consults Time Called: 1018 Consulting Physician: Manas BOWLING Returned Call: 1033 I reviewed the patient's case with Manas Bradshaw PA-C - Orthopedic Surgery. He is going to discuss the patient's case with Dr. Contreras. Additional Consults: Time Called: 1122 Consulted Physician: Dr. Amairani Dhaliwal Returned Call: 1130 Additional Comments: I reviewed the patient's case with Dr. Amairani Dhaliwal of the [facility]. He will evaluate the patient for further management. Impression Primary Impression: Osteomyelitis Scribe Attestation The scribe's documentation has been prepared under my direction and personally reviewed by me in its entirety. I confirm that the note above accurately reflects all work, treatment, procedures, and medical decision making performed by me. Departure Information Dispostion Being Evaluated By Hospitalist Referrals Pro,Parveen Copeland M.D. (PCP) Patient Instructions My [facility] Problem Qualifiers Primary Impression: Osteomyelitis Osteomyelitis type: unspecified type Osteomyelitis location: unspecified site Qualified Codes: M86.9 - Osteomyelitis, unspecified
[2016-10-30 15:58] VITALS: BP 136/97; PULSE 79; TEMP 36.8; O2SAT 95
[2016-10-30] MEDS ORDERED: INSULIN ASPART 100 UNITS/ML 3 ML PEN SC SCH (16:00)
--- NOTE | 2016-10-30 16:11 | CONSULTATION REPORT ---
DATE OF CONSULTATION: 10/30/2016 REASON FOR CONSULT: Possible osteomyelitis, left great toe. HISTORY OF PRESENT ILLNESS: The patient is a 56-year-old white female known to our practice who was recently admitted in the hospital in September of 2016 and had a left third toe amputation for osteomyelitis and also an ulcer that was on the toe itself. This was done by Dr. Contreras. She was eventually discharged and was continued to follow up with Dr. Cyr from infectious disease. She also has a history of some chronic drainage from her right tibia, status post right TKA which had been addressed by Dr. Volodymyr Greene in the past. It was decided that chronic suppression for the knee was going to continue and no large scale revision with antibiotic spacer was to be done at this point in time. The patient returns to the wound care center regularly to take care of the small wound that is on her right gaines. The patient states that over the last several days that she has noticed her left great toe continued to become more red and swollen. She states that there were no areas of drainage and that she just became increasingly concerned. She was unsure who to call, so she just came into the Emergency Room today to be seen. She denies any fevers or chills. She denies any nausea or vomiting. No overt pain, although she does have neuropathy in that foot. Imaging that was obtained by the Emergency Room staff showed considerable soft tissue swelling about the great toe with potential for the osteomyelitis of the base of the distal phalanx. We have now been asked to see this patient for her left toe cellulitis and possible osteomyelitis. PAST MEDICAL HISTORY: Anxiety, asthma, depression, diabetes mellitus with neuropathy, hypercholesterolemia, hypertension, history of osteomyelitis in the past, and paroxysmal atrial fibrillation, on Xarelto. PAST SURGICAL HISTORY: Right total knee arthroplasty in 2010, right fifth toe amputation by Dr. Morataya in August of 2013, left third toe amputation in September 2016. She has had a right knee arthroscopy in the past as well as history of D&C and wisdom teeth extraction. ALLERGIES: PENICILLIN. FAMILY HISTORY: Diabetes mellitus, cancer, heart disease, hypertension, kidney disease, renal calculi. SOCIAL HISTORY: The patient is a nonsmoker, does not use alcohol. MEDICATIONS: Albuterol 2 puffs inhaled q. 4-6 hours p.r.n., amiodarone 200 mg p.o. b.i.d., Lipitor 40 mg p.o. q.p.m., bupropion 150 mg p.o. daily, calcium with magnesium 1 tab p.o. b.i.d., Zyrtec 10 mg p.o. daily, vitamin D3 one tab p.o. daily, vitamin B12 1000 p.o. daily, Lexapro 10 mg at bedtime, Advair Diskus 250/50 one puff inhaled daily, hydrochlorothiazide 12.5 mg p.o. daily, lisinopril 5 mg p.o. q.p.m., lorazepam 0.25-0.5 mg p.o. b.i.d. p.r.n. anxiety, mag ox 40 mg p.o. b.i.d., metformin 1000 mg p.o. b.i.d., metoprolol 200 mg p.o. daily, montelukast sodium 10 mg 1 tab p.o. daily, naproxen 220 mg p.o. q. 12 hours p.r.n., rivaroxaban 20 mg p.o. daily and Bactrim-DS 1 tab p.o. b.i.d. REVIEW OF SYSTEMS: As per admitting history and physical. PHYSICAL EXAMINATION: Focusing on the patient's left great toe, it is noted to be moderately swollen and erythematous. She has no erythema streaking up to the dorsum of the foot and the dorsum of the foot is nontender. She has neuropathy of the left foot and states that she can feel me touching her foot, but the sensation is blunted. She has no overt pain when I palpate the left great toe at this time. Capillary refill is less than 2 seconds and she is moving the ankle and toes fairly well, although the great toe has some decreased range of motion which is likely due to swelling. No other complaints of the left lower extremity at the knee or at the hip. Right lower extremity shows a well-healed scar from previous TKA. She does have a small dressing over the right tibia below the incision of her TKA where there is a small wound that she that chronically drains off and on. Currently, she states that it does not drink very much and she places 1 gauze on the area daily and has not increased. No pain in the right knee and no erythema and good range of motion at this point in time. She denies any pain in the right ankle or toes and has good range of motion of both. No pain in the right hip. Upper extremities are essentially benign at this time and have good range of motion bilaterally. She denies any neck pain and any thoracic or low back pain at this time. Again, she does have moderate neuropathy of both feet. ASSESSMENT: Cellulitis, left great toe with possible osteomyelitis of the distal phalanx. PLAN: Dr. Contreras has spoken to Dr. Dhaliwal and plans will be to admit the patient and get an MRI of the left great toe tonight. No antibiotics will be started at this time since the patient has been on suppression for some time now with Bactrim. We will make her n.p.o. after midnight and add her onto the surgical schedule tomorrow for possible irrigation and debridement if needed pending with the MRI results. Dr. Dhaliwal will consult Dr. Cyr from infectious disease and once the MRI is read and formulation of the plan has been made with either surgical or nonsurgical treatment, they will start antibiotics at that time.
[2016-10-30] MEDS: LORAZEPAM 0.5 MG TAB PO PRN (18:00)
[2016-10-30] MEDS: INSULIN ASPART 100 UNITS/ML 3 ML PEN SC SCH ×2 (19:22→21:04)
[2016-10-30 20:58] VITALS: BP 123/83; PULSE 79
[2016-10-30] MEDS: ESCITALOPRAM OXALATE 10 MG TAB PO SCH (20:59)
[2016-10-30] MEDS: SULFAMETHOXAZOLE/TRIMETHOPRIM DS 800/160MG TAB PO SCH (20:59)
[2016-10-30] MEDS: LISINOPRIL 5 MG TAB PO SCH (20:59)
[2016-10-30] MEDS: MONTELUKAST SOD 10 MG TAB PO SCH (21:00)
[2016-10-30] MEDS: ATORVASTATIN 40 MG TAB PO SCH (21:00)
[2016-10-30] MEDS: MAGNESIUM OXIDE 400 MG TAB PO SCH (21:00)
[2016-10-30] MEDS: AMIODARONE 200 MG TAB PO SCH (21:04)
[2016-10-30 23:16] VITALS: BP 128/82; PULSE 79; TEMP 36.8; O2SAT 95
[2016-10-31] VITALS (7 sets, daily range): BP systolic 117–142; BP diastolic 80–97; PULSE 66–96; TEMP 36.5–37.1; O2SAT 92–97
[2016-10-31] MEDS ORDERED: NURSING DECISION MEDICATION ORDER SCH (01:15)
[2016-10-31] MEDS: INSULIN ASPART 100 UNITS/ML 3 ML PEN SC SCH ×4 (05:45→20:41)
[2016-10-31 06:37] LABS: BASO % 0.5 %; BASO ABS # 0.03 K/uL (0-0.2); COMPLETE YES; EOS % 5.1 %; HEMATOCRIT 34.3 % (37-47); IG% 0.2 %; LYMPH % 23.1 %; LYMPH ABS # 1.37 K/uL (1.2-3.4); MEAN CELL VOLUME 98.6 fL (80-100); MEAN CORPUSCULAR HGB CONC 31.5 g/dl (32-36); MONO % 9.8 %; NEUT % 61.3 %; PLATELET COUNT 220 K/uL (130-400); RED BLOOD COUNT 3.48 M/uL (4.2-5.4); WHITE BLOOD COUNT 5.92 K/uL (4.8-10.8)
[2016-10-31 07:03] LABS: BUN/CREATININE RATIO 14.5 (10-20); CALCIUM 9.4 mg/dl (8.5-10.1); CREATININE 0.88 mg/dl (0.60-1.20); MAGNESIUM 1.8 mg/dl (1.8-2.4); POTASSIUM 4.5 mmol/L (3.5-5.1)
[2016-10-31 07:06] LABS: ALB/GLOB RATIO 0.9 (0.9-2); PHOSPHORUS 4.2 mg/dl (2.5-4.9)
[2016-10-31 08:33] LABS: ESTIMATED AVERAGE GLUCOSE 128 mg/dl; HA1C FLAG Normal (Normal)
[2016-10-31] MEDS: SULFAMETHOXAZOLE/TRIMETHOPRIM DS 800/160MG TAB PO SCH ×2 (08:33→20:32)
[2016-10-31] MEDS: AMIODARONE 200 MG TAB PO SCH ×2 (08:33→20:33)
[2016-10-31] MEDS: MAGNESIUM OXIDE 400 MG TAB PO SCH ×2 (08:33→20:31)
[2016-10-31] MEDS: FLUTICASONE/SALMETEROL 250/50 (ADVAIR) 14 PUFF/1 INHALER INH SCH (08:33)
[2016-10-31] MEDS: BuPROPion SR 150 MG TABCR PO SCH (08:34)
[2016-10-31] MEDS: METOPROLOL SUCC 50MG EXT REL TAB PO SCH (08:34)
[2016-10-31] MEDS: LORAZEPAM 0.5 MG TAB PO PRN (08:50)
--- NOTE | 2016-10-31 09:02 | Hospitalist Progress Note ---
Hospitalist Progress Note Date of Service Oct 31, 2016. (Phyllis Villalta PA-C) Subjective Pt evaluation today including: conversation w/ patient, physical exam, chart review, lab review, review of studies Pain: None PO Intake: NPO Voiding: no voiding problems, medel catheter in place The patient was seen and examined this morning in Preop holding. Pt denies any pain or discomfort, but she is very anxious because "it's unknown, I dont want them to take my toe if they dont have to". She denies any fevers, sweats or chills, chest pain, shortness of breath, or abdominal pain. Her glucose has been "good recently" It was 144 this morning with NPO. Social Hx: Pt does admit that she drinks 5x per week 1-2 drinks at a time. She used to smoke 1 pack in a week, on and off x 20 years, but reports she quit 3 years ago. From home. Does not wear supplemental O2 at baseline. Constitutional: + problem reported (anxious), No fever, No chills, No sweats , No weakness, No fatigue ENT: No nasal symptoms, No trouble swallowing Respiratory: No cough, No sputum, No shortness of breath, No dyspnea at rest Cardiovascular: No chest pain, No palpitations Abdomen: No pain, No nausea, No vomiting, No diarrhea, No constipation Musculoskeletal: + problem reported (Increased erythema on Left great toe. lesion over the right gaines, about 1x 1 cm, pt reports is chronic. ) Neurologic: No weakness, No numbness/tingling Psychiatric: + anxiety, No depression symptoms Endo: No fatigue Skin: No rash, No itch (Phyllis Villalta, BRANDEE) Objective Vital Signs Date Time Temp Pulse Resp B/P (MAP) Pulse Ox O2 Delivery O2 Flow Rate FiO2 10/31/16 07:19 36.7 81 19 139/93 (108) 95 Room Air 10/31/16 00:28 Nasal Cannula 2.0 10/30/16 23:16 36.8 79 16 128/82 (97) 95 Room Air 10/30/16 20:58 79 123/83 (96) 10/30/16 17:00 Room Air 10/30/16 15:58 36.8 79 16 136/97 (110) 95 Room Air 10/30/16 15:22 88 18 121/87 96 Room Air 10/30/16 13:59 87 16 117/81 96 10/30/16 12:38 81 17 142/94 93 Room Air 10/30/16 11:45 95 Room Air 10/30/16 10:44 89 16 129/84 95 (Phyllis Villalta PA-C) Physical Exam General Appearance: WD/WN, no apparent distress, + obese Eyes: PERRL, EOMI ENT: hearing grossly normal, pharynx normal Neck: supple, no JVD Respiratory/Chest: lungs clear, no respiratory distress, no accessory muscle use Cardiovascular: regular rate, rhythm Abdomen: normal bowel sounds, non tender, soft Extremities: non-tender, no calf tenderness, + pertinent finding (+ left great toe erythema and edema, does not extend up into the dorsum of the foot, nontender to palpation. + previous amputation of the left third toe appears to be healing well. + Right little toe amputated. + Nonhealing ulceration over the Right gaines ~ 1x1cm. + Anterior tibial erythema over bilateral shins. ) Neurologic/Psychiatric: alert, oriented x 3, + pertinent finding (anxious, slightly tearful at times) Skin: normal color, warm/dry (other than per extremity exam) (Phyllis Villalta PA-C) Laboratory Results Last 24 Hours Test 10/30/16 09:30 10/30/16 18:50 10/30/16 20:31 10/31/16 05:44 White Blood Count 6.93 K/uL Red Blood Count 3.55 M/uL Hemoglobin 11.0 g/dL Hematocrit 34.5 % Mean Corpuscular Volume 97.2 fL Mean Corpuscular Hemoglobin 31.0 pg Mean Corpuscular Hemoglobin Concent 31.9 g/dl Platelet Count 227 K/uL Mean Platelet Volume 9.7 fL Neutrophils (%) (Auto) 68.7 % Lymphocytes (%) (Auto) 20.3 % Monocytes (%) (Auto) 6.6 % Eosinophils (%) (Auto) 3.8 % Basophils (%) (Auto) 0.3 % Neutrophils # (Auto) 4.76 K/uL Lymphocytes # (Auto) 1.41 K/uL Monocytes # (Auto) 0.46 K/uL Eosinophils # (Auto) 0.26 K/uL Basophils # (Auto) 0.02 K/uL RDW Standard Deviation 53.2 fL RDW Coefficient of Variation 15.2 % Immature Granulocyte % (Auto) 0.3 % Immature Granulocyte # (Auto) 0.02 K/uL Erythrocyte Sedimentation Rate 21 mm/hr Sodium Level 131 mmol/L Potassium Level 4.4 mmol/L Chloride Level 96 mmol/L Carbon Dioxide Level 29 mmol/L Anion Gap 6.0 mmol/L Blood Urea Nitrogen 15 mg/dl Creatinine 0.85 mg/dl Est Creatinine Clear Calc Drug Dose 93.9 ml/min Estimated GFR () 90.0 Estimated GFR (Non- 77.7 BUN/Creatinine Ratio 17.4 Random Glucose 107 mg/dl Calcium Level 9.2 mg/dl C-Reactive Protein 0.89 mg/dl Bedside Glucose 97 mg/dl 106 mg/dl 114 mg/dl Test 10/31/16 06:12 White Blood Count 5.92 K/uL Red Blood Count 3.48 M/uL Hemoglobin 10.8 g/dL Hematocrit 34.3 % Mean Corpuscular Volume 98.6 fL Mean Corpuscular Hemoglobin 31.0 pg Mean Corpuscular Hemoglobin Concent 31.5 g/dl Platelet Count 220 K/uL Mean Platelet Volume 10.0 fL Neutrophils (%) (Auto) 61.3 % Lymphocytes (%) (Auto) 23.1 % Monocytes (%) (Auto) 9.8 % Eosinophils (%) (Auto) 5.1 % Basophils (%) (Auto) 0.5 % Neutrophils # (Auto) 3.63 K/uL Lymphocytes # (Auto) 1.37 K/uL Monocytes # (Auto) 0.58 K/uL Eosinophils # (Auto) 0.30 K/uL Basophils # (Auto) 0.03 K/uL RDW Standard Deviation 55.4 fL RDW Coefficient of Variation 15.5 % Immature Granulocyte % (Auto) 0.2 % Immature Granulocyte # (Auto) 0.01 K/uL Sodium Level 136 mmol/L Potassium Level 4.5 mmol/L Chloride Level 97 mmol/L Carbon Dioxide Level 33 mmol/L Anion Gap 6.0 mmol/L Blood Urea Nitrogen 13 mg/dl Creatinine 0.88 mg/dl Est Creatinine Clear Calc Drug Dose 90.7 ml/min Estimated GFR () 86.3 Estimated GFR (Non- 74.5 BUN/Creatinine Ratio 14.5 Random Glucose 108 mg/dl Estimated Average Glucose 128 mg/dl Hemoglobin A1c 6.1 % Calcium Level 9.4 mg/dl Phosphorus Level 4.2 mg/dl Magnesium Level 1.8 mg/dl Total Bilirubin 0.5 mg/dl Aspartate Amino Transf (AST/SGOT) 15 U/L Alanine Aminotransferase (ALT/SGPT) 20 U/L Alkaline Phosphatase 96 U/L Total Protein 7.1 gm/dl Albumin 3.4 gm/dl Globulin 3.7 gm/dl Albumin/Globulin Ratio 0.9 (Phyllis Villalta, BRANDEE) Assessment and Plan 56 yo female with PMHx of diabetes mellitus, atrial fibrillation who recently had a third left toe amputation last month here in the hospital. She was sent from her primary physician with left toe swelling, erythema with concerns for osteomyelitis in left toe. Left great toe cellulitis with concerns for osteomyelitis Chronic osteomyelitis in right knees/p total knee replacement in the past, infected prosthesis on chronic suppression with Bactrim. - General surgery on board- taking the pt to the OR today. - No leukocytosis, afebrile - Glucose stable - Hx right total knee replacement in the past and currently on chronic suppression for osteomyelitis on that joint. - Cont Bactrim BID as she is on this chronically - MRI ordered: 1. Findings consistent with septic arthritis/septic arthritis of the interphalangeal joint of the first toe. 2. Changes at the head of the second metatarsal are favored to be degenerative in etiology, although developing osteomyelitis is not excluded. Attention on follow-up. 3. Small rim-enhancing fluid collection at the head of the third metatarsal. Abscess not excluded, although this could represent a postoperative seroma. No convincing evidence of osteomyelitis of the third metatarsal. 4. Diffuse intramuscular edema in the flexor compartment, possibly indicating reactive myositis. 5. Skin thickening and edema of the dorsum of the foot could indicate cellulitis. - Xray Toe: IMPRESSION: Considerable soft tissue swelling about the great toe with potential early osteomyelitis base distal phalanx. Paroxysmal Afib - Cont Xarelto, currently in NSR Diabetes mellitus - ISS with accuchecks ACHS - Glucose has been stable Dyslipidemia Hypertension - Cont amiodarone 200 mg BID, Lisinopril 5 mg QHS, metoprolol succinate 200 mg daily Depression Anxiety - Cont wellbutrin SR 150 mg daily, lexapro 10 mg QhS, - Ativan 0.5 mg BID prn anxiety Asthma - stable DVT ppx: teds, scds, xarelto CODE STATUS: FULL CODE Disposition: From home, discharge when medically stable, likely within 1 day. (Phyllis Villalta, BRANDEE) PA Physician Supervision Note: I interviewed and examined the patient. Discussed with Phyllis Villalta PAC and agree with findings and plan as documented in the note. Any exceptions or clarifications are listed here: None this pt went to OR and had left Gr toe drained and cultured and a surgical pinning of toe on right foot per patient, she feels tired but no pain, has been on suppressive antibiotics with ID oversight vitals are stable car is regular lungs are clear dressing and ice packs on feet Continue bactrim DS bid po and follow cultures surgery to manage post op wound care and ambulation Documented By: Blair Rivas (Blair Rivas M.D.)
[2016-10-31] MEDS ORDERED: GADAVIST IV PRN (10:15)
--- NOTE | 2016-10-31 10:47 | DIAGNOSTIC IMAGING REPORT ---
LOWER EXT NONJOINT COMBO CLINICAL HISTORY: 56 years-old Female presenting with left toe infection, concern for vasculitis of the left first toe, third toe amputated September 23, 2016, asthma, restless leg syndrome. TECHNIQUE: Multisequence, multiplanar MR imaging of the left forefoot was performed before and after the administration of intravenous contrast. IV contrast: 11 mL of Gadavist. COMPARISON: 09/15/2016. FINDINGS: Image quality is degraded by motion artifact. Localizer images: Unremarkable. Extensive subcutaneous edema and skin thickening predominantly over the dorsum of the forefoot. Postsurgical changes of the third toe amputation. Loss of normal T1 hyperintense marrow signal in the mid to distal proximal phalanx of the first toe and the base of the distal phalanx of the first toe. Associated diffuse T2 hyperintensity of marrow in the phalanges of the first toe. Apparent fragmentation of the base of the distal phalanx with extensive enhancement of the interphalangeal joint on postcontrast imaging. Additionally, volar subluxation of the first phalanx relative to the proximal phalanx. Loss of normal T1 hyperintense marrow signal within the head of the second metatarsal. Small amount of fluid at the second metatarsophalangeal joint with T2 hyperintensity of the head of the second metatarsal and subchondral cystic change. Less pronounced similar changes also noted at the head of the third metatarsal. Small rim-enhancing fluid collection at the head of the third metatarsal at the site of surgical site. Although mild T2 hyperintensity of the head of the third metatarsal is noted, no loss of normal T1 hyperintense marrow signal. Diffuse intramuscular T2 hyperintensity of the flexor compartment. IMPRESSION: 1. Findings consistent with septic arthritis/septic arthritis of the interphalangeal joint of the first toe. 2. Changes at the head of the second metatarsal are favored to be degenerative in etiology, although developing osteomyelitis is not excluded. Attention on follow-up. 3. Small rim-enhancing fluid collection at the head of the third metatarsal. Abscess not excluded, although this could represent a postoperative seroma. No convincing evidence of osteomyelitis of the third metatarsal. 4. Diffuse intramuscular edema in the flexor compartment, possibly indicating reactive myositis. 5. Skin thickening and edema of the dorsum of the foot could indicate cellulitis. Electronically signed by: Jose Daniel Rhoades M.D. 10/31/2016 10:46 AM Dictated Date/Time: 10/31/2016 10:29 AM
[2016-10-31] MEDS ORDERED: ATROPINE SULFATE 0.1 MG/ML 5ML SYR IV PRN (11:00)
[2016-10-31] MEDS ORDERED: EpHEDrine SULFATE INJ 50 MG/ML AMP IV PRN (11:00)
[2016-10-31] MEDS ORDERED: FENTANYL CITRATE INJ 50 MCG/1 ML 2 ML VIAL IV PRN (11:00)
[2016-10-31] MEDS ORDERED: ONDANSETRON INJ 2 MG/ML 2 ML VIAL IV PRN (11:00)
--- NOTE | 2016-10-31 12:13 | History & Physical Bridge Note ---
H&P Re-Evaluation Bridge Note: I have examined the patient, reviewed the History & Physical and in the interval since the performance of the History & Physical I have noted the following changes of clinical significance: Will perform LEFT great toe I and D with bone biopsy and possible partial amputation AND RIGHT Second Toe DuVries arthroplasty for severe fixed contracture 2nd hammertoe deformity with distal callus and ulceration.
[2016-10-31] MEDS ORDERED: MIDAZOLAM HCL 1 MG/ML 2ML VIAL ONE (12:16)
[2016-10-31] MEDS ORDERED: FENTANYL CITRATE INJ 50 MCG/1 ML 2 ML VIAL ONE (12:16)
[2016-10-31] MEDS ORDERED: LIDOCAINE HCL 2% 2 ML VIAL (20MG/ML) ONE (12:17)
[2016-10-31] MEDS ORDERED: PROPOFOL IV EMULSION 10 MG/ML 20 ML VIAL IV ONE (12:17)
[2016-10-31] MEDS ORDERED: BACITRACIN 50000 UNIT VIAL ONE (12:21)
[2016-10-31] MEDS ORDERED: BUPIVACAINE 0.5 % 5 MG/1 ML MPF 30ML VIAL ONE (12:21)
[2016-10-31] MEDS ORDERED: KETAMINE HCL INJ 50 MG/ML 10 ML VIAL ONE (13:05)
--- NOTE | 2016-10-31 14:19 | Anesthesiology Progress Note ---
Anesthesia Post Op Note Date & Time Oct 31, 2016 at 14:18 Vital Signs Pain Intensity: 0.0 Vital Signs Past 12 Hours Date Time Temp Pulse Resp B/P (MAP) Pulse Ox O2 Delivery O2 Flow Rate FiO2 10/31/16 07:19 36.7 81 19 139/93 (108) 95 Room Air Notes Mental Status: alert / awake / arousable, participated in evaluation Pt Amnestic to Procedure: Yes Nausea / Vomiting: adequately controlled Pain: adequately controlled Airway Patency, RR, SpO2: stable & adequate BP & HR: stable & adequate Hydration State: stable & adequate Anesthetic Complications: no major complications apparent
--- NOTE | 2016-10-31 14:26 | DIAGNOSTIC IMAGING REPORT ---
RIGHT TOE(S) MIN 2 VIEWS CLINICAL HISTORY: 56 years-old Female presenting with RIGHT TOE PINNING Right. TECHNIQUE: 2 fluoroscopic spot image(s) obtained as part of intraoperative procedure. COMPARISON: None. FINDINGS/IMPRESSION: Pin fixation across the phalanges of the second toe extending into the second tarsal. Anatomic alignment maintained apart from apparent lateral deviation of the distal phalanx of the first toe. Absence of the fifth toe. Please see surgical report for further details. Fluoroscopy dosage (mGy): Not available. Fluoroscopy time: 43 seconds. Number of fluoroscopic spot images: 2. Electronically signed by: Jose Daniel Rhoades M.D. 10/31/2016 2:24 PM Dictated Date/Time: 10/31/2016 2:23 PM
--- NOTE | 2016-10-31 14:29 | [facility] Operative Report ---
Operative Report Operative Date Oct 31, 2016. Pre-Operative Diagnosis Left Great toe Septic Interphalangeal Joint; Possible Osteomyelitis Proximal Phalanx Great Toe Right Foot Severe fixed contracture 2nd hammertoe deformity with distal callus and ulceration. Post-Operative Diagnosis Left Great toe Septic Interphalangeal Joint; Possible Osteomyelitis Proximal Phalanx Great Toe Right Foot Severe fixed contracture 2nd hammertoe deformity with distal callus and ulceration. Procedure(s) Performed Left Great Toe Arthrotomy interphalangeal joint; Irrigation and Debridement Interphalangeal Joint; Left Bone Biopsy Proximal Phalanx Great Toe Right DuVries Arthroplasty Second Toe; Right Flexor tenotomy 2nd toe Surgeon Dr. Contreras Missile Pad Mechanic Surgeon(s) none Estimated Blood Loss 1 ml Findings See dictation Specimens micro 1. culture left interphalengeal joint great toe 2. material from great toe for crystal analysis Fresh a. bone biopsy Proximal Phalnyx great toe left for pathology and culture Drains 1/4 inch iodoform 2 Anesthesia local with sedation Complication(s) None Disposition Recovery Room / PACU Indications This is a 56-year-old female with history of diabetes mellitus and chronic bilateral lower extremity neuropathy. She had developed worsening left great toe pain with redness and swelling over the last several days. She was admitted to the hospital and was scheduled for I&D of the interphalangeal joint with bone biopsy to assess for osteomyelitis of the great toe. She also complained of significant fixed contracture deformity, ulceration and intermittent bleeding with callus and chronic repetitive ulcer of the right distal second toe. She attempted conservative management however failed and due to her neuropathy and neuropathic structural changes of the right foot she also requested appropriate definitive management of her second toe. The patient was then scheduled for surgery as indicated. Description of Procedure All potential risks, benefits, complications, alternatives, rehabilitation, potential for incomplete relief of symptoms, need for further surgery, persistent numbness, weakness, stiffness, persistent pain, DVT, PE, , bone fracture, hardware breakage, nonunion, malunion or wound complications were discussed with the patient. The patient decided to proceed with the procedure as indicated. Procedure: The patient was taken to the operative suite and placed supine on the operating table. After review of the consent and identification of proper operative sites the patient was then sedated. The bilateral lower extremities were then sterilely prepped and draped in usual fashion. First attention was directed toward the left foot and a partial exsanguination of the left foot was performed from the midfoot proximally using 4 inch Esmarch bandage and Esmarch tourniquet was applied over sterile surgical tile at level of the ankle. A 15 blade incision was used to make a transverse incision over the dorsal medial aspect of the left great toe at the interphalangeal joint. The incision was deepened to the subcutaneous tissue. Taking was hemostasis was achieved electrocautery. The incision site was then also injected with approximately 7 mL of half percent Marcaine plain. The soft tissue and superficial cutaneous nerves were then carefully dissected and retracted with Metzenbaum scissors. The joint capsule was then incised with a 15 blade scalpel. The joint capsule was suspicious for crystal deposits with precipitate noted. This was then taken for specimen for crystal analysis. Next a culture swab was then inserted into the interphalangeal joint and what appeared to be. Material was then also sent for aerobic anaerobic and Gram stain and analysis. After the arthrotomy of the interphalangeal joint had been completed irrigation and debridement with a rongeur of the synovial lining of the interphalangeal joint was then performed with a rongeur. This wound was then copious irrigated with sternal saline with bacitracin until clear. After this completed top gloves and top sheet were changed and 15 blade was then used to make an incision along the medial aspect of the distal proximal phalanx great toe to elevate soft tissue. Next a rongeur and a small curette were then used to harvest small bone biopsy from the distal medial aspect the proximal phalanx adjacent to the condyle. This was then sent for pathological specimen for assessment of osteomyelitis including culture of the bone. Next loose closure with interrupted 3-0 nylon sutures using horizontal mattress technique was performed of the interphalangeal joint and to 1/4 inch iodoform gauze drains were placed both medial and lateral aspects of the incision. This is then covered with a sterile compressive dressing and a Coban and. Next the top gloves and top sheet were changed followed by release of the tourniquet of the left lower extremity. Next a exsanguination of the right foot was then performed with a 4 inch Esmarch bandage and an Esmarch tourniquet was applied over sterile surgical tile at the level of the ankle. A transverse incision was made over the proximal interphalangeal joint of the second toe on the right foot with a 15 blade scalpel. This incision was then deepened to the subcutaneous tissue the extensor and the dorsal capsule with 15 blade. The collateral ligaments were then sacrificed the 15 blade scalpel. Next a bone-biting rongeur was then used to resect the distal aspect of the proximal phalanx of the second toe. There is noted to be a severe flexion contracture of the flexor tendon and plantar capsule of the second interphalangeal joint. This time the plantar plate was then released with a 15 blade scalpel and this revealed the flexor tendon. The flexor tendon was then transected with a 15 blade scalpel releasing the flexion contracture. Next after the wound was scoped C irrigated with sternal saline and bacitracin a 0.045 inch K wire was driven out through the tip of the second toe and then retrograde fashion under live fluoroscopic assistance the K wire was then driven into the second metatarsal under live fluoroscopic assistance. Once confirmed placement the pin was then cut bent and capped with a Jurgan's ball. Final radiographs were obtained the right foot. Next after further irrigation with sterile normal saline, the skin incision was then closed using interrupted 4-0 nylon sutures. Next a sterile compressive dressing was applied overwrapped with a Coban and to the right foot. Next the tourniquet was released for the right lower extremity. The patient was then awakened and taken to recovery in stable condition. I attest to the content of the Intraoperative Record and any orders documented therein. Any exceptions are noted below.
[2016-10-31] MEDS ORDERED: VANCOMYCIN INJ 0 MG in SODIUM CHLORIDE 0.9% 500ML 500 ML IV SCH (14:45)
[2016-10-31] MEDS ORDERED: MAGNESIUM HYDROXIDE SUSP 30 ML UDC PO PRN (14:45)
--- NOTE | 2016-10-31 14:59 | DIAGNOSTIC IMAGING REPORT ---
RIGHT FOOT 2 VIEWS CLINICAL HISTORY: 56 years-old Female presenting with post-op. TECHNIQUE: Frontal and lateral views of the right foot were obtained COMPARISON: 09/14/2006. FINDINGS: Interval pin fixation through the phalanges of the second toe into the second metatarsal. Osteotomy defect of the head of the proximal phalanx of the second toe. Postsurgical changes of fifth toe amputation unchanged. Osteopenia limits evaluation for osteolysis. Diffuse soft tissue edema. Overlying bandage minimally obscures underlying osseous detail. Inferior bone spur at the calcaneus at the origin of the plantar fascia. IMPRESSION: Postsurgical changes of pin fixation across the second toe and second metatarsal with osteotomy defect of the head of the proximal phalanx. Electronically signed by: Jose Daniel Rhoades M.D. 10/31/2016 2:58 PM Dictated Date/Time: 10/31/2016 2:55 PM
[2016-10-31] MEDS ORDERED: NURSING VERBAL MED ORDER ONE ×2 (15:45→19:15)
--- NOTE | 2016-10-31 17:37 | Medical Consult ---
Consultation Date of Consultation: Oct 31, 2016. Attending Physician: Dima Muro MD Reason for Consultation: Left toe osteomyelitis History of Present Illness 56-year-old female well known to the Infectious Disease service, with history of chronically infected right knee prosthesis awaiting further surgery, on chronic suppressive therapy with Bactrim, atrial fibrillation, status post recent amputation of the left 3rd toe for gangrenous changes, now presents with several days of progressively worsening left great toe redness and swelling. Was found to have evidence of possible osteomyelitis, and today underwent surgical exploration with finding of possible septic joint, and had bone biopsy performed as well as repair of deformity of 2nd toe. She has not had any significant fever or chills. Has been started empirically on vancomycin. Gram stain from the toe shows gram-positive cocci, cultures are pending. No evidence of worsening knee infection. Past Medical/Surgical History Medical Problems: (1) Osteomyelitis Status: Chronic (2) Sepsis Status: Acute (3) Toe osteomyelitis, left Status: Acute Medical Problems: (1) Abscess or cellulitis of foot (2) Anxiety (3) Asthma (4) cellulitis (5) Cellulitis of third toe, left (6) Cellulitis of third toe, left (7) Depression (8) Diabetes (9) Diabetic foot infection (10) Hypercholesteremia (11) Hypertension (12) Osteomyelitis (13) Paroxysmal a-fib Surgical Problems: (1) History of knee replacement procedure of right knee (2) Post-operative state Family History Diabetes mellitus FHx: cancer FHx: heart disease Hypertension Kidney disease Kidney stones Social History Smoking Status: Former Smoker Drug Use: none Marital Status: single Housing Status: lives with family Occupation Status: employed Allergies Coded Allergies: Penicillins (Verified Allergy, Unknown, UNKNOWN, 03/19/15) Current Inpatient Medications Current Inpatient Medications Medications (Trade) Dose Ordered Sig/Flash Route Start Time Stop Time Status Last Admin Dose Admin Acetaminophen (Tylenol Tab) 650 mg Q4H PRN PO 10/30/16 14:15 11/29/16 14:14 Al Hydrox/Mg Hydrox/Simethicone (Maalox Max Susp) 15 ml Q4H PRN PO 10/30/16 14:15 11/29/16 14:14 Magnesium Hydroxide (Milk Of Magnesia Susp) 30 ml Q6H PRN PO 10/30/16 14:15 11/29/16 14:14 Zolpidem Tartrate (Ambien Tab) 5 mg HSZ PRN PO 10/30/16 14:15 11/29/16 14:14 Glucose (Glucose 40% Gel) 15-30 GRAMS 15 GRAMS... UD PRN PO 10/30/16 14:15 11/29/16 14:14 Glucose (Glucose Chew Tab) 4-8 Tablets 4 Tabl... UD PRN PO 10/30/16 14:15 11/29/16 14:14 Dextrose (Dextrose 50% 50ML Syringe) 25-50ML OF 50% DW IV FOR... UD PRN IV 10/30/16 14:15 11/29/16 14:14 Glucagon (Glucagon Inj) 1 mg UD PRN SQ 10/30/16 14:15 11/29/16 14:14 Amiodarone HCl (Cordarone Tab) 200 mg BID PO 10/30/16 21:00 11/29/16 20:59 10/31/16 08:33 200 MG Atorvastatin Calcium (Lipitor Tab) 40 mg QPM PO 10/30/16 21:00 11/29/16 20:59 10/30/16 21:00 40 MG Bupropion HCl (Wellbutrin-Sr Tab) 150 mg DAILY PO 10/31/16 09:00 11/30/16 08:59 10/31/16 08:34 150 MG Escitalopram Oxalate (Lexapro Tab) 10 mg HS PO 10/30/16 21:00 11/29/16 20:59 10/30/16 20:59 10 MG Salmeterol Xinafoate/ Fluticasone (Advair Diskus 250/50 Inh) 1 puff DAILY INH 10/31/16 09:00 11/30/16 08:59 10/31/16 08:33 1 PUFF Lisinopril (Zestril Tab) 5 mg QPM PO 10/30/16 21:00 11/29/16 20:59 10/30/16 20:59 5 MG Lorazepam (Ativan Tab) 0.5 mg BID PRN PO 10/30/16 14:15 11/29/16 14:14 10/31/16 08:50 0.5 MG Magnesium Oxide (Mag-Ox Tab) 400 mg BID PO 10/30/16 21:00 11/29/16 20:59 10/31/16 08:33 400 MG Metoprolol Succinate (Toprol Xl Tab) 200 mg DAILY PO 10/31/16 09:00 11/30/16 08:59 10/31/16 08:34 200 MG Montelukast Sodium (Singulair Tab) 10 mg HS PO 10/30/16 21:00 11/29/16 20:59 Trimethoprim/ Sulfamethoxazole (Septra Ds 800/ 160MG Tab) 1 tab BID PO 10/30/16 21:00 11/29/16 20:59 10/31/16 08:33 1 TAB Gadobutrol (Gadavist) 11 mmol UD PRN IV 10/31/16 10:15 11/04/16 10:14 Docusate Sodium (coLACE CAP) 100 mg BID PO 10/31/16 21:00 11/30/16 20:59 Multivitamins (Multivitamin Tab) 1 tab QAM PO 11/01/16 09:00 12/01/16 08:59 Vancomycin HCl 1750 mg/Sodium Chloride 535 ml @ 200 mls/hr TODAY@2000 ONCE IV 10/31/16 20:00 10/31/16 22:40 Insulin Aspart (novoLOG ASPART) SLIDING SCALE If C... ACHS SC 10/31/16 17:15 11/30/16 17:14 Review of Systems All systems were reviewed and are negative except as per HPI Physical Exam Date Time Temp Pulse Resp B/P (MAP) Pulse Ox O2 Delivery O2 Flow Rate FiO2 10/31/16 17:07 36.7 66 18 142/90 (107) 92 Room Air 10/31/16 16:19 Nasal Cannula 2.0 10/31/16 16:00 36.5 89 18 129/86 (100) 97 Nasal Cannula 2.0 10/31/16 15:30 36.7 84 16 130/85 (100) 95 Nasal Cannula 2.0 10/31/16 15:00 37.1 96 16 124/88 (100) 93 Nasal Cannula 2.0 10/31/16 15:00 Nasal Cannula 2.0 10/31/16 14:47 93 25 10/31/16 14:47 93 25 92 10/31/16 14:46 131/89 10/31/16 14:42 80 13 95 10/31/16 14:42 82 13 10/31/16 14:41 119/88 10/31/16 14:37 86 17 92 10/31/16 14:37 95 17 10/31/16 14:36 123/92 10/31/16 14:33 36.7 10/31/16 14:32 91 16 92 10/31/16 14:32 90 16 10/31/16 14:31 127/95 10/31/16 14:28 88 19 10/31/16 14:28 91 19 92 10/31/16 14:26 132/95 10/31/16 14:23 89 18 10/31/16 14:23 86 18 96 10/31/16 14:22 77 17 96 10/31/16 14:22 90 17 10/31/16 14:21 137/92 10/31/16 14:17 81 26 98 10/31/16 14:17 84 26 10/31/16 14:16 128/82 10/31/16 14:12 89 22 99 10/31/16 14:12 83 22 10/31/16 14:11 138/98 10/31/16 14:08 133/86 10/31/16 14:07 88 21 10/31/16 14:07 36.5 88 18 133/86 99 Mask 10 10/31/16 14:07 94 21 92 10/31/16 07:45 Room Air 10/31/16 07:19 36.7 81 19 139/93 (108) 95 Room Air 10/31/16 00:28 Nasal Cannula 2.0 10/30/16 23:16 36.8 79 16 128/82 (97) 95 Room Air 10/30/16 20:58 79 123/83 (96) General Appearance: WD/WN, no apparent distress, + obese Head: normocephalic, atraumatic Eyes: normal inspection, EOMI, sclerae normal ENT: normal ENT inspection, hearing grossly normal, pharynx normal Neck: supple, no adenopathy, thyroid normal, trachea midline Respiratory/Chest: chest non-tender, lungs clear, normal breath sounds, no respiratory distress Cardiovascular: no gallop, no murmur, + irregularly irregular Abdomen/GI: normal bowel sounds, non tender, soft, no organomegaly Back: normal inspection, no CVA tenderness Extremities/Musculoskelatal: no calf tenderness, non-tender Neurologic/Psych: alert, oriented x 3 Skin: normal color, warm/dry, no rash, + pertinent finding ( surgical dressing intact left foot) Laboratory Results Date/Time Source Procedure Growth Status 10/31/16 13:30 Bone Toe Left 1 Gram Stain Pending Received 10/31/16 13:30 Bone Toe Left 1 Bacterial Culture Pending Received 10/31/16 13:14 Drainage-Deep Toe Left 1 Gram Stain - Final Resulted 10/31/16 13:14 Drainage-Deep Toe Left 1 Bacterial Culture Pending Resulted Last 24 Hours Test 10/30/16 18:50 10/30/16 20:31 10/31/16 05:44 10/31/16 06:12 Bedside Glucose 97 mg/dl 106 mg/dl 114 mg/dl White Blood Count 5.92 K/uL Red Blood Count 3.48 M/uL Hemoglobin 10.8 g/dL Hematocrit 34.3 % Mean Corpuscular Volume 98.6 fL Mean Corpuscular Hemoglobin 31.0 pg Mean Corpuscular Hemoglobin Concent 31.5 g/dl Platelet Count 220 K/uL Mean Platelet Volume 10.0 fL Neutrophils (%) (Auto) 61.3 % Lymphocytes (%) (Auto) 23.1 % Monocytes (%) (Auto) 9.8 % Eosinophils (%) (Auto) 5.1 % Basophils (%) (Auto) 0.5 % Neutrophils # (Auto) 3.63 K/uL Lymphocytes # (Auto) 1.37 K/uL Monocytes # (Auto) 0.58 K/uL Eosinophils # (Auto) 0.30 K/uL Basophils # (Auto) 0.03 K/uL RDW Standard Deviation 55.4 fL RDW Coefficient of Variation 15.5 % Immature Granulocyte % (Auto) 0.2 % Immature Granulocyte # (Auto) 0.01 K/uL Sodium Level 136 mmol/L Potassium Level 4.5 mmol/L Chloride Level 97 mmol/L Carbon Dioxide Level 33 mmol/L Anion Gap 6.0 mmol/L Blood Urea Nitrogen 13 mg/dl Creatinine 0.88 mg/dl Est Creatinine Clear Calc Drug Dose 90.7 ml/min Estimated GFR () 86.3 Estimated GFR (Non- 74.5 BUN/Creatinine Ratio 14.5 Random Glucose 108 mg/dl Estimated Average Glucose 128 mg/dl Hemoglobin A1c 6.1 % Calcium Level 9.4 mg/dl Phosphorus Level 4.2 mg/dl Magnesium Level 1.8 mg/dl Total Bilirubin 0.5 mg/dl Aspartate Amino Transf (AST/SGOT) 15 U/L Alanine Aminotransferase (ALT/SGPT) 20 U/L Alkaline Phosphatase 96 U/L Total Protein 7.1 gm/dl Albumin 3.4 gm/dl Globulin 3.7 gm/dl Albumin/Globulin Ratio 0.9 Test 10/31/16 14:09 10/31/16 17:10 Bedside Glucose 109 mg/dl 108 mg/dl Patient Name: MILA RUVALCABA Unit Number: [id number] Dictated: 10/31/161028 Transcribed: 10/31/161028 PBS Printed Date/Time: [~ rep prt dt]/[~ rep prt tm] [~ rep ct labl] - [~ rep ct ivnm] [facility] [place] [place] [address] Dictated: 10/31/161028 Transcribed: 10/31/161028 PBS Printed Date/Time: [~ rep prt dt]/[~ rep prt tm] [~ rep ct labl] - [~ rep ct ivnm] [~ rep ct add3]] LOWER EXT NONJOINT COMBO CLINICAL HISTORY: 56 years-old Female presenting with left toe infection, concern for vasculitis of the left first toe, third toe amputated September 23, 2016, asthma, restless leg syndrome. TECHNIQUE: Multisequence, multiplanar MR imaging of the left forefoot was performed before and after the administration of intravenous contrast. IV contrast: 11 mL of Gadavist. COMPARISON: 09/15/2016. FINDINGS: Image quality is degraded by motion artifact. Localizer images: Unremarkable. Extensive subcutaneous edema and skin thickening predominantly over the dorsum of the forefoot. Postsurgical changes of the third toe amputation. Loss of normal T1 hyperintense marrow signal in the mid to distal proximal phalanx of the first toe and the base of the distal phalanx of the first toe. Associated diffuse T2 hyperintensity of marrow in the phalanges of the first toe. Apparent fragmentation of the base of the distal phalanx with extensive enhancement of the interphalangeal joint on postcontrast imaging. Additionally, volar subluxation of the first phalanx relative to the proximal phalanx. Loss of normal T1 hyperintense marrow signal within the head of the second metatarsal. Small amount of fluid at the second metatarsophalangeal joint with T2 hyperintensity of the head of the second metatarsal and subchondral cystic change. Less pronounced similar changes also noted at the head of the third metatarsal. Small rim-enhancing fluid collection at the head of the third metatarsal at the site of surgical site. Although mild T2 hyperintensity of the head of the third metatarsal is noted, no loss of normal T1 hyperintense marrow signal. Diffuse intramuscular T2 hyperintensity of the flexor compartment. IMPRESSION: 1. Findings consistent with septic arthritis/septic arthritis of the interphalangeal joint of the first toe. 2. Changes at the head of the second metatarsal are favored to be degenerative in etiology, although developing osteomyelitis is not excluded. Attention on follow-up. 3. Small rim-enhancing fluid collection at the head of the third metatarsal. Abscess not excluded, although this could represent a postoperative seroma. No convincing evidence of osteomyelitis of the third metatarsal. 4. Diffuse intramuscular edema in the flexor compartment, possibly indicating reactive myositis. 5. Skin thickening and edema of the dorsum of the foot could indicate cellulitis. Electronically signed by: Jose Daniel Rhoades M.D. 10/31/2016 10:46 AM Dictated Date/Time: 10/31/2016 10:29 AM The status of this report is Signed. Draft = Not yet reviewed or approved by Radiologist. Signed = Reviewed and approved by Radiologist. <AttendingPhy>Dima Muro MD</AttendingPhy> <FamilyPhy>Parveen Fishman M.D.</FamilyPhy> <PrimaryPhy>Parveen Fishmna M.D.</PrimaryPhy> < UnitNumber>[id number]</UnitNumber> <VisitNumber>[id number]</VisitNumber> < PatientName>MILA RUVALCABA</PatientName> <DateOfBirth>1960</ DateOfBirth> <Location[facility]</Location> <ServiceDate>10/30/16</ServiceDate> <MNE >ESINDI</MNE> <OrderingPhy>Dima Muro MD</OrderingPhy> < OrderingPhyMNE>f rep ord dr peña</OrderingPhyMNE> <DictatingPhyMNE>f rep dict dr peña</DictatingPhyMNE> <CCListMNE>f rep ct mne</CCListMNE> <AdmittingPhyMNE>f pt admit dr peña</AdmittingPhyMNE> <AttendingPhyMNE>f pt attend dr peña</ AttendingPhyMNE> <ConsultingPhyMNE>f pt consult dr peña</ConsultingPhyMNE> <FamilyPhyMNE>f pt fam dr peña</FamilyPhyMNE> <OtherPhyMNE>f pt other dr peña</OtherPhyMNE> < PrimaryPhyMNE>f pt prim care dr peña</PrimaryPhyMNE> <ReferringPhyMNE>f pt referring dr peña</ReferringPhyMNE> Assessment & Plan 52-year-old female with chronic infection of right knee prosthesis now presents with worsening infection of left great toe with probable septic arthritis and possible osteomyelitis. Patient to be continued on IV vancomycin pending operative cultures, and I will adjust antibiotics once these are available. Will likely require prolonged IV therapy. Will follow.
[2016-10-31] MEDS ORDERED: VANCOMYCIN INJ 1,750 MG in SODIUM CHLORIDE 0.9% 500ML 500 ML IV ONE (20:00)
[2016-10-31] MEDS: MONTELUKAST SOD 10 MG TAB PO SCH (20:30)
[2016-10-31] MEDS: DOCUSATE SODIUM 100 MG CAP PO SCH (20:31)
[2016-10-31] MEDS: LISINOPRIL 5 MG TAB PO SCH (20:32)
[2016-10-31] MEDS: ATORVASTATIN 40 MG TAB PO SCH (20:33)
[2016-10-31] MEDS: ESCITALOPRAM OXALATE 10 MG TAB PO SCH (20:33)
[2016-10-31] MEDS: OXYCODONE HCL IR 5 MG TAB (IMMEDIATE RELEASE) PO PRN (20:35)
[2016-11-01 03:05] VITALS: BP 120/83; PULSE 77; TEMP 36.6; O2SAT 94
[2016-11-01] MEDS: OXYCODONE HCL IR 5 MG TAB (IMMEDIATE RELEASE) PO PRN ×3 (03:13→21:00)
[2016-11-01 07:29] VITALS: BP 128/89; PULSE 75; TEMP 36.5; O2SAT 99
--- NOTE | 2016-11-01 07:41 | Hospitalist Progress Note ---
Hospitalist Progress Note Date of Service Nov 01, 2016. (Phyllis Villalta PA-C) Subjective Pt evaluation today including: conversation w/ patient, physical exam, chart review, lab review, review of studies Pain: None PO Intake: Good Voiding: no voiding problems The patient was seen and examined this morning. Pt reports doing well, she reports surgery yesterday went well. She has no acute complaints. Tolerating diet without difficulty, BM this morning. She has walked without much pain. She tells me Dr Contreras will be seeing her later today because his PA was already in. 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 Additional Comments: Constitutional: No fever, No chills, No sweats, No weakness, No fatigue ENT: No nasal symptoms, No trouble swallowing Respiratory: No cough, No sputum, No shortness of breath, No dyspnea at rest Cardiovascular: No chest pain, No palpitations Abdomen: No pain, No nausea, No vomiting, No diarrhea, No constipation Musculoskeletal: Left great toe s/p I&D, no pain. R second toe was pinned for hammertoe fixation, no pain, + lesion over the right gaines, about 1x 1 cm, pt reports is chronic. ) Neurologic: No weakness, No numbness/tingling Psychiatric: No depression symptoms, no anxiety Endo: No fatigue (Phyllis Villalta, BRANDEE) Objective Vital Signs Date Time Temp Pulse Resp B/P (MAP) Pulse Ox O2 Delivery O2 Flow Rate FiO2 11/01/16 07:29 36.5 75 19 128/89 (102) 99 Room Air 11/01/16 03:05 36.6 77 18 120/83 (95) 94 Room Air 10/31/16 23:35 Nasal Cannula 2.0 10/31/16 23:06 36.8 84 18 117/80 (92) 94 Nasal Cannula 2.0 10/31/16 17:59 93 18 140/97 (111) 92 Room Air 10/31/16 17:07 36.7 66 18 142/90 (107) 92 Room Air 10/31/16 16:19 Nasal Cannula 2.0 10/31/16 16:00 36.5 89 18 129/86 (100) 97 Nasal Cannula 2.0 10/31/16 15:30 36.7 84 16 130/85 (100) 95 Nasal Cannula 2.0 10/31/16 15:00 37.1 96 16 124/88 (100) 93 Nasal Cannula 2.0 10/31/16 15:00 Nasal Cannula 2.0 10/31/16 14:47 93 25 10/31/16 14:47 93 25 92 10/31/16 14:46 131/89 10/31/16 14:42 80 13 95 10/31/16 14:42 82 13 10/31/16 14:41 119/88 10/31/16 14:37 86 17 92 10/31/16 14:37 95 17 10/31/16 14:36 123/92 10/31/16 14:33 36.7 10/31/16 14:32 91 16 92 10/31/16 14:32 90 16 10/31/16 14:31 127/95 10/31/16 14:28 88 19 10/31/16 14:28 91 19 92 10/31/16 14:26 132/95 10/31/16 14:23 89 18 10/31/16 14:23 86 18 96 10/31/16 14:22 77 17 96 10/31/16 14:22 90 17 10/31/16 14:21 137/92 10/31/16 14:17 81 26 98 10/31/16 14:17 84 26 10/31/16 14:16 128/82 10/31/16 14:12 89 22 99 10/31/16 14:12 83 22 10/31/16 14:11 138/98 10/31/16 14:08 133/86 10/31/16 14:07 88 21 10/31/16 14:07 36.5 88 18 133/86 99 Mask 10 10/31/16 14:07 94 21 92 10/31/16 07:45 Room Air (Phyllis Villalta, BRANDEE) Physical Exam Notes: General Appearance: WD/WN, no apparent distress, + obese Eyes: PERRL, EOMI ENT: hearing grossly normal, pharynx normal Neck: supple, no JVD Respiratory/Chest: lungs clear, no respiratory distress, no accessory muscle use Cardiovascular: regular rate, rhythm Abdomen: normal bowel sounds, non tender, soft Extremities: non-tender, no calf tenderness, + pertinent finding (Left great toe s/p I&D, dressing C/D/I, no pain. R second toe was pinned for hammertoe fixation, dressing C/D/I, + Nonhealing ulceration over the Right gaines ~ 1x1cm. + Anterior tibial erythema over bilateral shins. ) Neurologic/Psychiatric: alert, oriented x 3, no anxiety Skin: normal color, warm/dry (Phyllis Villalta PA-C) Laboratory Results Last 24 Hours Test 10/31/16 14:09 10/31/16 17:10 10/31/16 20:31 Bedside Glucose 109 mg/dl 108 mg/dl 107 mg/dl (Phyllis Villalta PA-C) Assessment and Plan 56 yo female with PMHx of diabetes mellitus, atrial fibrillation who recently had a third left toe amputation last month here in the hospital. She was sent from her primary physician with left toe swelling, erythema with concerns for osteomyelitis in left toe. Left great toe cellulitis with concerns for osteomyelitis Chronic osteomyelitis in right knees/p total knee replacement in the past, infected prosthesis on chronic suppression with Bactrim. - General surgery on board: s/p the following on 10/[address] Contreras: Left Great Toe Arthrotomy interphalangeal joint; Irrigation and Debridement Interphalangeal Joint; Left Bone Biopsy Proximal Phalanx Great Toe Right DuVries Arthroplasty Second Toe; Right Flexor tenotomy 2nd toe - ID on board: empirically initiated IV vanc on 10/31, may require half-way IV therapy pending cultures - No leukocytosis, afebrile - Glucose stable - Cont Bactrim BID as she is on this chronically - MRI 10/30 and Xray foot 10/30 reviewed Paroxysmal Afib - Resume Xarelto today, currently in NSR Diabetes mellitus - ISS with accuchecks ACHS - Glucose has been stable Dyslipidemia - Cont atorvastatin 20 mg QPM Hypertension - Cont amiodarone 200 mg BID, Lisinopril 5 mg QHS, metoprolol succinate 200 mg daily - Holding HCTZ 25 mg daily - BP remains stable Depression Anxiety - Cont wellbutrin SR 150 mg daily, lexapro 10 mg QhS, - Ativan 0.5 mg BID prn anxiety Asthma - stable DVT ppx: teds, scds, xarelto CODE STATUS: FULL CODE Disposition: From home, await BCx and Wound Cx, ID recs for abx therapy, d/c in 1-2 days (Phyllis Villalta PA-C) PA Physician Supervision Note: I interviewed and examined the patient. Discussed with Phyllis Villalta PAC and agree with findings and plan as documented in the note. Any exceptions or clarifications are listed here: None this pt went to OR 10/31 and had left Gr toe drained and cultured and a surgical pinning of second toe on right foot per patient vitals are stable car is regular lungs are clear some weight bearing allowed by surgery Continue bactrim DS bid po and follow cultures.preliminary is staph, coag neg, was started on vancomycin 10/31, awaiting final cultures surgery to manage post op wound care and ambulation Documented By: Blair Rivas (Blair Rivas M.D.)
--- NOTE | 2016-11-01 08:07 | Orthopedic Progress Note ---
Orthopedic Progress Note Date of Service Nov 01, 2016. Subjective Post OP Day: 1 Reports: feeling well, pain controlled w PO medications, Denies: complaints, chest pain, SOB, nausea / vomiting, light headedness, calf pain Objective calves soft nontender, N/V intact, capillary refill less than 2 sec., dressing C /D/I, A&O x3 Date Time Temp Pulse Resp B/P (MAP) Pulse Ox O2 Delivery O2 Flow Rate FiO2 11/01/16 07:29 36.5 75 19 128/89 (102) 99 Room Air 11/01/16 03:05 36.6 77 18 120/83 (95) 94 Room Air 10/31/16 23:35 Nasal Cannula 2.0 10/31/16 23:06 36.8 84 18 117/80 (92) 94 Nasal Cannula 2.0 10/31/16 17:59 93 18 140/97 (111) 92 Room Air 10/31/16 17:07 36.7 66 18 142/90 (107) 92 Room Air 10/31/16 16:19 Nasal Cannula 2.0 10/31/16 16:00 36.5 89 18 129/86 (100) 97 Nasal Cannula 2.0 10/31/16 15:30 36.7 84 16 130/85 (100) 95 Nasal Cannula 2.0 10/31/16 15:00 37.1 96 16 124/88 (100) 93 Nasal Cannula 2.0 10/31/16 15:00 Nasal Cannula 2.0 10/31/16 14:47 93 25 10/31/16 14:47 93 25 92 10/31/16 14:46 131/89 10/31/16 14:42 80 13 95 10/31/16 14:42 82 13 10/31/16 14:41 119/88 10/31/16 14:37 86 17 92 10/31/16 14:37 95 17 10/31/16 14:36 123/92 10/31/16 14:33 36.7 10/31/16 14:32 91 16 92 10/31/16 14:32 90 16 10/31/16 14:31 127/95 10/31/16 14:28 88 19 10/31/16 14:28 91 19 92 10/31/16 14:26 132/95 10/31/16 14:23 89 18 10/31/16 14:23 86 18 96 10/31/16 14:22 77 17 96 10/31/16 14:22 90 17 10/31/16 14:21 137/92 10/31/16 14:17 81 26 98 10/31/16 14:17 84 26 10/31/16 14:16 128/82 10/31/16 14:12 89 22 99 10/31/16 14:12 83 22 10/31/16 14:11 138/98 10/31/16 14:08 133/86 10/31/16 14:07 88 21 10/31/16 14:07 36.5 88 18 133/86 99 Mask 10 10/31/16 14:07 94 21 92 Assessment & Plan Assessment: POD #1 Left Great Toe Arthrotomy interphalangeal joint; Irrigation and Debridement Interphalangeal Joint; Left Bone Biopsy Proximal Phalanx Great Toe Right DuVries Arthroplasty Second Toe; Right Flexor tenotomy 2nd toe Plan: Partial weight bearing both feet. Disposition home. Await final cxs and ID recommendations: Gram stain few WBC's, few gram pos cocci. Cultures pending. Blood cxs neg to date. On vanco for now. Inhouse Planning Pain Management: Oxy IR
[2016-11-01] MEDS: INSULIN ASPART 100 UNITS/ML 3 ML PEN SC SCH ×4 (08:43→20:54)
[2016-11-01] MEDS: DOCUSATE SODIUM 100 MG CAP PO SCH ×2 (08:44→20:44)
[2016-11-01] MEDS: FLUTICASONE/SALMETEROL 250/50 (ADVAIR) 14 PUFF/1 INHALER INH SCH (08:44)
[2016-11-01] MEDS: AMIODARONE 200 MG TAB PO SCH ×2 (08:45→20:45)
[2016-11-01] MEDS: MAGNESIUM OXIDE 400 MG TAB PO SCH ×2 (08:45→20:46)
[2016-11-01] MEDS: SULFAMETHOXAZOLE/TRIMETHOPRIM DS 800/160MG TAB PO SCH ×2 (08:45→20:46)
[2016-11-01] MEDS: MULTIVITAMIN TAB PO SCH (08:45)
[2016-11-01] MEDS: BuPROPion SR 150 MG TABCR PO SCH (08:46)
[2016-11-01] MEDS: METOPROLOL SUCC 50MG EXT REL TAB PO SCH (08:47)
[2016-11-01] MEDS: RIVAROXABAN 20 MG TAB PO SCH (12:30)
[2016-11-01 15:44] VITALS: BP 95/63; PULSE 76; TEMP 36.5; O2SAT 97
[2016-11-01 20:40] VITALS: BP 124/87; PULSE 76
[2016-11-01] MEDS: LISINOPRIL 5 MG TAB PO SCH (20:44)
[2016-11-01] MEDS: ESCITALOPRAM OXALATE 10 MG TAB PO SCH (20:45)
[2016-11-01] MEDS: ATORVASTATIN 40 MG TAB PO SCH (20:45)
[2016-11-01] MEDS: MONTELUKAST SOD 10 MG TAB PO SCH (20:45)
[2016-11-01 23:09] VITALS: BP 97/68; PULSE 77; TEMP 36.6; O2SAT 97
[2016-11-02 07:05] VITALS: BP 131/94; PULSE 83; TEMP 36.6; O2SAT 94
[2016-11-02] MEDS: OXYCODONE HCL IR 5 MG TAB (IMMEDIATE RELEASE) PO PRN ×3 (07:14→21:32)
[2016-11-02] MEDS: FLUTICASONE/SALMETEROL 250/50 (ADVAIR) 14 PUFF/1 INHALER INH SCH (09:13)
[2016-11-02] MEDS: RIVAROXABAN 20 MG TAB PO SCH (09:13)
[2016-11-02] MEDS: BuPROPion SR 150 MG TABCR PO SCH (09:13)
[2016-11-02] MEDS: MULTIVITAMIN TAB PO SCH (09:14)
[2016-11-02] MEDS: CHOLECALCIFEROL 1000 INTER.UNIT TAB PO SCH (09:14)
[2016-11-02] MEDS: MAGNESIUM OXIDE 400 MG TAB PO SCH ×2 (09:14→21:10)
[2016-11-02] MEDS: CYANOCOBALAMIN 500 MCG TAB (VIT B-12) PO SCH (09:14)
[2016-11-02] MEDS: AMIODARONE 200 MG TAB PO SCH ×2 (09:15→21:07)
[2016-11-02] MEDS: SULFAMETHOXAZOLE/TRIMETHOPRIM DS 800/160MG TAB PO SCH (09:15)
[2016-11-02] MEDS: DOCUSATE SODIUM 100 MG CAP PO SCH ×2 (09:15→21:07)
[2016-11-02] MEDS: METOPROLOL SUCC 50MG EXT REL TAB PO SCH (09:16)
[2016-11-02] MEDS: INSULIN ASPART 100 UNITS/ML 3 ML PEN SC SCH ×4 (09:26→20:57)
[2016-11-02 10:52] VITALS: BP 108/74; PULSE 83; TEMP 36.7; O2SAT 96
--- NOTE | 2016-11-02 12:11 | Orthopedic Progress Note ---
Orthopedic Progress Note Date of Service Nov 02, 2016. Subjective Post OP Day: 2 Reports: feeling well, pain controlled w PO medications, Denies: complaints, chest pain, SOB, nausea / vomiting, light headedness, calf pain Objective calves soft nontender, incision C/D/I, A&O x3 Incisions c/d/i, no drainage, no erythema, right foot pin in tact. Date Time Temp Pulse Resp B/P (MAP) Pulse Ox O2 Delivery O2 Flow Rate FiO2 11/02/16 10:52 36.7 83 16 108/74 (85) 96 Room Air 11/02/16 08:53 Room Air 11/02/16 07:05 36.6 83 16 131/94 (106) 94 Room Air 11/02/16 00:00 Nasal Cannula 2.0 11/01/16 23:09 36.6 77 18 97/68 (78) 97 Nasal Cannula 2.0 11/01/16 20:40 76 124/87 (99) 11/01/16 15:44 36.5 76 18 95/63 (74) 97 Room Air 11/01/16 15:30 Room Air Assessment & Plan Assessment: POD #2 Left Great Toe Arthrotomy interphalangeal joint; Irrigation and Debridement Interphalangeal Joint; Left Bone Biopsy Proximal Phalanx Great Toe Right DuVries Arthroplasty Second Toe; Right Flexor tenotomy 2nd toe Plan: Partial weight bearing both feet. Disposition home. Await final cxs and ID recommendations: Gram stain few WBC's, few gram pos cocci. Cultures prelim coag neg staph Blood cxs neg to date. Inhouse Planning Pain Management: Oxy IR
--- NOTE | 2016-11-02 13:04 | Progress Note ---
Subjective Date of Service: Nov 02, 2016. Subjective pt is in good spirits but did not find out culture results yet, later returned as MRSA, will need picc and dapto likely but will ask ID prior to placing picc pain control in feet is acceptable Problem List Medical Problems: (1) Osteomyelitis Status: Chronic (2) Sepsis Status: Acute (3) Toe osteomyelitis, left Status: Acute Review of Systems Constitutional: No fever, No chills, No weakness, No fatigue Respiratory: No cough, No shortness of breath Cardiac: No chest pain, No edema Abdomen: No pain, No nausea, No vomiting, No diarrhea Musculoskeletal: + joint pain, + swelling Neurologic: + weakness, + numbness/tingling, No memory loss Psychiatric: No depression symptoms, No anhedonism Objective Vital Signs Date Time Temp Pulse Resp B/P (MAP) Pulse Ox O2 Delivery O2 Flow Rate FiO2 11/02/16 10:52 36.7 83 16 108/74 (85) 96 Room Air 11/02/16 08:53 Room Air 11/02/16 07:05 36.6 83 16 131/94 (106) 94 Room Air 11/02/16 00:00 Nasal Cannula 2.0 11/01/16 23:09 36.6 77 18 97/68 (78) 97 Nasal Cannula 2.0 11/01/16 20:40 76 124/87 (99) 11/01/16 15:44 36.5 76 18 95/63 (74) 97 Room Air 11/01/16 15:30 Room Air Physical Exam General Appearance: WD/WN, no apparent distress Neck: supple, no JVD Respiratory/Chest: chest non-tender, lungs clear, normal breath sounds Cardiovascular: regular rate, rhythm, no murmur Abdomen: normal bowel sounds, non tender, soft Extremities: + pertinent finding (bilateral feet are dressed and gauze with serosanguinous discharge) Neurologic/Psychiatric: alert, oriented x 3 Laboratory Results Last 24 Hours Test 11/01/16 17:03 11/01/16 20:49 11/02/16 08:07 Bedside Glucose 125 mg/dl 102 mg/dl 136 mg/dl Assessment and Plan 56 yo female with recurrent MRSA diabetic foot infection.with PMHx atrial fibrillation, recent third left toe amputation september 20. Left great toe cellulitis with concerns for osteomyelitis Chronic osteomyelitis in right knees/p total knee replacement in the past, infected prosthesis on chronic suppression with Bactrim. Dr. Contreras: 10/31 Left Great Toe Arthrotomy interphalangeal joint; Irrigation and Debridement Interphalangeal Joint; Left Bone Biopsy Proximal Phalanx Great Toe Right DuVries Arthroplasty Second Toe; Right Flexor tenotomy 2nd toe - ID on board: empirically initiated IV vanc on 10/31, cultures show mrsa will start daptomycin, not clear duration until ID weighs in, may need picc line - No leukocytosis, afebrile - hold Bactrim BID as she is on this chronically Paroxysmal Afib - Resume Xarelto currently in NSR, amiodarone 200 mg BID Diabetes mellitus stable with sliding scale with accu checks ACHS Dyslipidemia atorvastatin 20 mg QPM Hypertension, Lisinopril 5 mg QHS, metoprolol succinate 200 mg daily - Holding HCTZ 25 mg daily Depression/Anxiety wellbutrin SR 150 mg daily, lexapro 10 mg QhS, - Ativan 0.5 mg BID prn anxiety DVT ppx: teds, scds, xarelto CODE STATUS: FULL CODE
[2016-11-02] MEDS ORDERED: DAPTOmycin IV 480 MG in SODIUM CHLORIDE 0.9% 50ML 50 ML IV SCH (14:00)
--- NOTE | 2016-11-02 14:55 | DIAGNOSTIC IMAGING REPORT ---
CHEST ONE VIEW PORTABLE CLINICAL HISTORY: right pic tip placement tube position COMPARISON STUDY: 09/15/2016 FINDINGS: Moderate cardiomegaly. Right PICC catheter place in superior vena cava. No evidence pneumothorax. Findings consistent with developing congestive failure IMPRESSION: PICC catheter place in superior vena cava. No evidence of pneumothorax. Developing congestive failure The above report was generated using voice recognition software. It may contain grammatical, syntax or spelling errors. Electronically signed by: Gerardo Moss M.D. 11/02/2016 2:53 PM Dictated Date/Time: 11/02/2016 2:52 PM
[2016-11-02 16:04] VITALS: BP 103/64; PULSE 83; TEMP 36.8; O2SAT 94
[2016-11-02] MEDS: DAPTOMYCIN IV SCH (16:11)
[2016-11-02] MEDS: SODIUM CHLORIDE 0.9% IV SCH (16:11)
[2016-11-02] MEDS: MONTELUKAST SOD 10 MG TAB PO SCH (21:10)
[2016-11-02] MEDS: ESCITALOPRAM OXALATE 10 MG TAB PO SCH (21:10)
[2016-11-02] MEDS: LISINOPRIL 5 MG TAB PO SCH (21:10)
[2016-11-02] MEDS: ATORVASTATIN 40 MG TAB PO SCH (21:10)
[2016-11-02 23:05] VITALS: BP 106/73; PULSE 89; TEMP 36.4; O2SAT 85
[2016-11-02 23:10] VITALS: O2SAT 94
[2016-11-03 07:21] VITALS: BP 117/77; PULSE 89; TEMP 36.7; O2SAT 94
[2016-11-03] MEDS: FLUTICASONE/SALMETEROL 250/50 (ADVAIR) 14 PUFF/1 INHALER INH SCH (08:07)
[2016-11-03] MEDS: BuPROPion SR 150 MG TABCR PO SCH (08:07)
[2016-11-03] MEDS: DOCUSATE SODIUM 100 MG CAP PO SCH ×2 (08:07→20:58)
[2016-11-03] MEDS: AMIODARONE 200 MG TAB PO SCH ×2 (08:07→20:57)
[2016-11-03] MEDS: METOPROLOL SUCC 50MG EXT REL TAB PO SCH (08:08)
[2016-11-03] MEDS: MULTIVITAMIN TAB PO SCH (08:10)
[2016-11-03] MEDS: MAGNESIUM OXIDE 400 MG TAB PO SCH ×2 (08:10→20:59)
[2016-11-03] MEDS: CHOLECALCIFEROL 1000 INTER.UNIT TAB PO SCH (08:11)
[2016-11-03] MEDS: CYANOCOBALAMIN 500 MCG TAB (VIT B-12) PO SCH (08:11)
[2016-11-03] MEDS: RIVAROXABAN 20 MG TAB PO SCH (08:14)
[2016-11-03] MEDS: INSULIN ASPART 100 UNITS/ML 3 ML PEN SC SCH ×4 (08:20→20:54)
[2016-11-03] MEDS: OXYCODONE HCL IR 5 MG TAB (IMMEDIATE RELEASE) PO PRN ×3 (08:23→22:10)
--- NOTE | 2016-11-03 08:38 | Anesthesiology Progress Note ---
Anesthesia Post Op Note Date & Time Nov 03, 2016 at 08:38 Vital Signs Pain Intensity: 7.0 Vital Signs Past 12 Hours Date Time Temp Pulse Resp B/P (MAP) Pulse Ox O2 Delivery O2 Flow Rate FiO2 11/03/16 07:21 36.7 89 16 117/77 (90) 94 Room Air 11/03/16 00:15 Nasal Cannula 2.0 11/02/16 23:10 94 Nasal Cannula 2.0 11/02/16 23:05 36.4 89 16 106/73 (84) 85 Room Air 11/02/16 22:17 Room Air Notes Mental Status: alert / awake / arousable, participated in evaluation Pt Amnestic to Procedure: Yes Nausea / Vomiting: adequately controlled Pain: adequately controlled Airway Patency, RR, SpO2: stable & adequate BP & HR: stable & adequate Hydration State: stable & adequate Anesthetic Complications: no major complications apparent
--- NOTE | 2016-11-03 09:15 | Orthopedic Progress Note ---
Orthopedic Progress Note Date of Service Nov 03, 2016. Subjective Post OP Day: 3 Reports: feeling well, Denies: chest pain, SOB, nausea / vomiting, light headedness, calf pain Objective calves soft nontender, N/V intact, dressing C/D/I, A&O x3, toes mobile Left great toe edema. Incision CDI, minimal serous drainage. Right 2nd toe pin site looks clean. All areas redressed. Date Time Temp Pulse Resp B/P (MAP) Pulse Ox O2 Delivery O2 Flow Rate FiO2 11/03/16 07:21 36.7 89 16 117/77 (90) 94 Room Air 11/03/16 00:15 Nasal Cannula 2.0 11/02/16 23:10 94 Nasal Cannula 2.0 11/02/16 23:05 36.4 89 16 106/73 (84) 85 Room Air 11/02/16 22:17 Room Air 11/02/16 16:04 36.8 83 17 103/64 (77) 94 Room Air 11/02/16 16:00 Room Air 2.0 Nasal Cannula 11/02/16 10:52 36.7 83 16 108/74 (85) 96 Room Air Assessment & Plan Assessment: POD #3 Left Great Toe Arthrotomy interphalangeal joint; Irrigation and Debridement Interphalangeal Joint; Left Bone Biopsy Proximal Phalanx Great Toe Right DuVries Arthroplasty Second Toe; Right Flexor tenotomy 2nd toe Plan: Partial weight bearing both feet. Disposition home. Await final cxs and ID recommendations: Gram stain few WBC's, few gram pos cocci. + MRSA Cultures prelim coag neg staph Blood cxs neg to date. PICC line placed. Daily dressing changes Daily home IVs - IV Vanco for now, will need to check insurance coverage at home. Planning to stay with sister since she is home and on 1 floor. Inhouse Planning Pain Management: Oxy IR DVT Prophylaxis: TEDs, SCDs
--- NOTE | 2016-11-03 10:38 | Infectious Disease Progress Nt ---
Progress Note Date of Service Nov 03, 2016. Subjective Pt evaluation today including: conversation w/ patient, physical exam, chart review, lab review, review of studies, conversation w/ bilingual sales consultant, review of inpatient medication list Offers no new complaints. remains afebrile. Cultures have grown highly resistant coag-negative Staph. All Other Systems: Reviewed and Negative Medications Current Inpatient Medications Medications (Trade) Dose Ordered Sig/Flash Route Start Time Stop Time Status Last Admin Dose Admin Acetaminophen (Tylenol Tab) 650 mg Q4H PRN PO 10/30/16 14:15 11/29/16 14:14 10/31/16 18:59 650 MG Al Hydrox/Mg Hydrox/Simethicone (Maalox Max Susp) 15 ml Q4H PRN PO 10/30/16 14:15 11/29/16 14:14 Magnesium Hydroxide (Milk Of Magnesia Susp) 30 ml Q6H PRN PO 10/30/16 14:15 11/29/16 14:14 Zolpidem Tartrate (Ambien Tab) 5 mg HSZ PRN PO 10/30/16 14:15 11/29/16 14:14 Glucose (Glucose 40% Gel) 15-30 GRAMS 15 GRAMS... UD PRN PO 10/30/16 14:15 11/29/16 14:14 Glucose (Glucose Chew Tab) 4-8 Tablets 4 Tabl... UD PRN PO 10/30/16 14:15 11/29/16 14:14 Dextrose (Dextrose 50% 50ML Syringe) 25-50ML OF 50% DW IV FOR... UD PRN IV 10/30/16 14:15 11/29/16 14:14 Glucagon (Glucagon Inj) 1 mg UD PRN SQ 10/30/16 14:15 11/29/16 14:14 Amiodarone HCl (Cordarone Tab) 200 mg BID PO 10/30/16 21:00 11/29/16 20:59 11/03/16 08:07 200 MG Atorvastatin Calcium (Lipitor Tab) 40 mg QPM PO 10/30/16 21:00 11/29/16 20:59 11/02/16 21:10 40 MG Bupropion HCl (Wellbutrin-Sr Tab) 150 mg DAILY PO 10/31/16 09:00 11/30/16 08:59 11/03/16 08:07 150 MG Escitalopram Oxalate (Lexapro Tab) 10 mg HS PO 10/30/16 21:00 11/29/16 20:59 11/02/16 21:10 10 MG Salmeterol Xinafoate/ Fluticasone (Advair Diskus 250/50 Inh) 1 puff DAILY INH 10/31/16 09:00 11/30/16 08:59 11/03/16 08:07 1 PUFF Lisinopril (Zestril Tab) 5 mg QPM PO 10/30/16 21:00 11/29/16 20:59 11/02/16 21:10 5 MG Lorazepam (Ativan Tab) 0.5 mg BID PRN PO 10/30/16 14:15 11/29/16 14:14 10/31/16 08:50 0.5 MG Magnesium Oxide (Mag-Ox Tab) 400 mg BID PO 10/30/16 21:00 11/29/16 20:59 11/03/16 08:10 400 MG Metoprolol Succinate (Toprol Xl Tab) 200 mg DAILY PO 10/31/16 09:00 11/30/16 08:59 11/03/16 08:08 200 MG Montelukast Sodium (Singulair Tab) 10 mg HS PO 10/30/16 21:00 11/29/16 20:59 11/02/16 21:10 10 MG Gadobutrol (Gadavist) 11 mmol UD PRN IV 10/31/16 10:15 11/04/16 10:14 Docusate Sodium (coLACE CAP) 100 mg BID PO 10/31/16 21:00 11/30/16 20:59 11/03/16 08:07 100 MG Multivitamins (Multivitamin Tab) 1 tab QAM PO 11/01/16 09:00 12/01/16 08:59 11/03/16 08:10 1 TAB Insulin Aspart (novoLOG ASPART) SLIDING SCALE If C... ACHS SC 10/31/16 17:15 11/30/16 17:14 11/03/16 08:20 6 UNITS Oxycodone HCl (Roxicodone Immediate Rel Tab) `1-2 tabs for pain 1 tab ... Q6H PRN PO 10/31/16 19:30 11/14/16 19:29 7/31/17 08:23 10 MG Cholecalciferol (Vitamin D Tab) 1,000 inter.unit DAILY PO 11/02/16 09:00 12/02/16 08:59 11/03/16 08:11 1,000 INTER.UNIT Cyanocobalamin (Vitamin B-12 Tab) 1,000 mcg DAILY PO 11/02/16 09:00 12/02/16 08:59 11/03/16 08:11 1,000 MCG Rivaroxaban (Xarelto Tab) 20 mg DAILY PO 11/01/16 12:00 12/01/16 11:59 11/03/16 08:14 20 MG Daptomycin 720 mg/ Sodium Chloride 64.4 ml @ 100 mls/hr Q24H IV 11/02/16 14:00 12/14/16 13:59 11/02/16 16:11 100 MLS/HR Heparin Sodium (Porcine) (Heparin 10 Unit/ ml 5 ml Flush) 5 ml PRN PRN FLUSH 11/02/16 17:00 12/02/16 16:59 11/03/16 10:31 5 ML Objective Vital Signs Date Time Temp Pulse Resp B/P (MAP) Pulse Ox O2 Delivery O2 Flow Rate FiO2 11/03/16 08:00 Room Air 11/03/16 07:21 36.7 89 16 117/77 (90) 94 Room Air 11/03/16 00:15 Nasal Cannula 2.0 11/02/16 23:10 94 Nasal Cannula 2.0 11/02/16 23:05 36.4 89 16 106/73 (84) 85 Room Air 11/02/16 22:17 Room Air 11/02/16 16:04 36.8 83 17 103/64 (77) 94 Room Air 11/02/16 16:00 Room Air 2.0 Nasal Cannula 11/02/16 10:52 36.7 83 16 108/74 (85) 96 Room Air Physical Exam General Appearance: WD/WN, no apparent distress, + obese Eyes: normal inspection, EOMI, sclerae normal ENT: normal ENT inspection, pharynx normal Neck: supple, no adenopathy, trachea midline Respiratory/Chest: lungs clear, normal breath sounds, no respiratory distress Cardiovascular: no gallop, no murmur, + irregularly irregular Abdomen: normal bowel sounds, non tender, soft, no organomegaly Extremities: non-tender, no calf tenderness Neurologic/Psychiatric: alert, normal mood/affect, oriented x 3 Skin: normal color, warm/dry, no rash, + pertinent finding (surgical dressing intact) Lymphatic: no adenopathy Laboratory Results Last 24 Hours Test 11/02/16 11:49 11/02/16 17:05 11/02/16 20:45 11/03/16 04:41 Bedside Glucose 98 mg/dl 101 mg/dl 110 mg/dl Total Creatine Kinase 53 U/L Test 11/03/16 07:59 Bedside Glucose 117 mg/dl Assessment and Plan 52-year-old female with chronic infection of right knee prosthesis now presents with worsening infection of left great toe with probable septic arthritis and possible osteomyelitis. Cultures with resistant coag-negative Staph. recommend daptomycin 6 mg/kg daily for 6 weeks. Will follow.
[2016-11-03] MEDS: DAPTOMYCIN IV SCH (14:04)
[2016-11-03] MEDS: SODIUM CHLORIDE 0.9% IV SCH (14:04)
[2016-11-03 15:13] VITALS: BP 119/84; PULSE 70; TEMP 36.6; O2SAT 97
--- NOTE | 2016-11-03 15:18 | Hospitalist Progress Note ---
Hospitalist Progress Note Date of Service Nov 03, 2016. (Kena Fitzgerald PA-C) Subjective Pt evaluation today including: conversation w/ patient, physical exam, chart review, lab review, review of studies, review of inpatient medication list Patient seen and evaluated. No acute events overnight. PICC line placed and Daptomycin started. Patient states she is feeling better and pain is largely controlled. Plans to return to [facility] to recover. States she was supposed to have cardioversion this Thursday and will call her barrel roller operator as she was stopped on Xarelto due to surgical intervention. Verbalizes no other complaints at this time. Constitutional: No fever, No chills Respiratory: No cough, No shortness of breath Cardiovascular: No chest pain, No palpitations Abdomen: No pain, No nausea, No vomiting, No diarrhea, No constipation Musculoskeletal: No swelling, No calf pain Female : No dysuria Heme: No abnormal bleeding/bruising Skin: No rash (Kena Fitzgerald PA-C) Medications Current Inpatient Medications Medications (Trade) Dose Ordered Sig/Flash Route Start Time Stop Time Status Last Admin Dose Admin Acetaminophen (Tylenol Tab) 650 mg Q4H PRN PO 10/30/16 14:15 11/29/16 14:14 10/31/16 18:59 650 MG Al Hydrox/Mg Hydrox/Simethicone (Maalox Max Susp) 15 ml Q4H PRN PO 10/30/16 14:15 11/29/16 14:14 Magnesium Hydroxide (Milk Of Magnesia Susp) 30 ml Q6H PRN PO 10/30/16 14:15 11/29/16 14:14 Zolpidem Tartrate (Ambien Tab) 5 mg HSZ PRN PO 10/30/16 14:15 11/29/16 14:14 Glucose (Glucose 40% Gel) 15-30 GRAMS 15 GRAMS... UD PRN PO 10/30/16 14:15 11/29/16 14:14 Glucose (Glucose Chew Tab) 4-8 Tablets 4 Tabl... UD PRN PO 10/30/16 14:15 11/29/16 14:14 Dextrose (Dextrose 50% 50ML Syringe) 25-50ML OF 50% DW IV FOR... UD PRN IV 10/30/16 14:15 11/29/16 14:14 Glucagon (Glucagon Inj) 1 mg UD PRN SQ 10/30/16 14:15 11/29/16 14:14 Amiodarone HCl (Cordarone Tab) 200 mg BID PO 10/30/16 21:00 11/29/16 20:59 11/03/16 08:07 200 MG Atorvastatin Calcium (Lipitor Tab) 40 mg QPM PO 10/30/16 21:00 11/29/16 20:59 11/02/16 21:10 40 MG Bupropion HCl (Wellbutrin-Sr Tab) 150 mg DAILY PO 10/31/16 09:00 11/30/16 08:59 11/03/16 08:07 150 MG Escitalopram Oxalate (Lexapro Tab) 10 mg HS PO 10/30/16 21:00 11/29/16 20:59 11/02/16 21:10 10 MG Salmeterol Xinafoate/ Fluticasone (Advair Diskus 250/50 Inh) 1 puff DAILY INH 10/31/16 09:00 11/30/16 08:59 11/03/16 08:07 1 PUFF Lisinopril (Zestril Tab) 5 mg QPM PO 10/30/16 21:00 11/29/16 20:59 11/02/16 21:10 5 MG Lorazepam (Ativan Tab) 0.5 mg BID PRN PO 10/30/16 14:15 11/29/16 14:14 10/31/16 08:50 0.5 MG Magnesium Oxide (Mag-Ox Tab) 400 mg BID PO 10/30/16 21:00 11/29/16 20:59 11/03/16 08:10 400 MG Metoprolol Succinate (Toprol Xl Tab) 200 mg DAILY PO 10/31/16 09:00 11/30/16 08:59 11/03/16 08:08 200 MG Montelukast Sodium (Singulair Tab) 10 mg HS PO 10/30/16 21:00 11/29/16 20:59 11/02/16 21:10 10 MG Gadobutrol (Gadavist) 11 mmol UD PRN IV 10/31/16 10:15 11/04/16 10:14 Docusate Sodium (coLACE CAP) 100 mg BID PO 10/31/16 21:00 11/30/16 20:59 11/03/16 08:07 100 MG Multivitamins (Multivitamin Tab) 1 tab QAM PO 11/01/16 09:00 12/01/16 08:59 11/03/16 08:10 1 TAB Insulin Aspart (novoLOG ASPART) SLIDING SCALE If C... ACHS SC 10/31/16 17:15 11/30/16 17:14 11/03/16 12:34 2 UNITS Oxycodone HCl (Roxicodone Immediate Rel Tab) `1-2 tabs for pain 1 tab ... Q6H PRN PO 10/31/16 19:30 11/14/16 19:29 11/03/16 08:23 10 MG Cholecalciferol (Vitamin D Tab) 1,000 inter.unit DAILY PO 11/02/16 09:00 12/02/16 08:59 11/03/16 08:11 1,000 INTER.UNIT Cyanocobalamin (Vitamin B-12 Tab) 1,000 mcg DAILY PO 11/02/16 09:00 12/02/16 08:59 11/03/16 08:11 1,000 MCG Rivaroxaban (Xarelto Tab) 20 mg DAILY PO 11/01/16 12:00 12/01/16 11:59 11/03/16 08:14 20 MG Daptomycin 720 mg/ Sodium Chloride 64.4 ml @ 100 mls/hr Q24H IV 11/02/16 14:00 12/14/16 13:59 11/03/16 14:04 100 MLS/HR Heparin Sodium (Porcine) (Heparin 10 Unit/ ml 5 ml Flush) 5 ml PRN PRN FLUSH 11/02/16 17:00 12/02/16 16:59 11/03/16 10:31 5 ML (Kena Fitzgerald PA-C) Objective Vital Signs Date Time Temp Pulse Resp B/P (MAP) Pulse Ox O2 Delivery O2 Flow Rate FiO2 11/03/16 08:00 Room Air 11/03/16 07:21 36.7 89 16 117/77 (90) 94 Room Air 11/03/16 00:15 Nasal Cannula 2.0 11/02/16 23:10 94 Nasal Cannula 2.0 11/02/16 23:05 36.4 89 16 106/73 (84) 85 Room Air 11/02/16 22:17 Room Air 11/02/16 16:04 36.8 83 17 103/64 (77) 94 Room Air 11/02/16 16:00 Room Air 2.0 Nasal Cannula (Kena Fitzgerald PA-C) Physical Exam General Appearance: WD/WN, no apparent distress, + obese Eyes: sclerae normal ENT: hearing grossly normal Neck: no adenopathy Respiratory/Chest: lungs clear, normal breath sounds, no respiratory distress, no accessory muscle use Cardiovascular: no gallop, no murmur, + irregularly irregular Abdomen: normal bowel sounds, non tender, soft Extremities: no calf tenderness, + pertinent finding (immediate cap refill; circulation adequate to bilateral feet) Neurologic/Psychiatric: alert, oriented x 3 Skin: normal color, warm/dry (Kena Fitzgerald, RIGOBERTOC) Laboratory Results Last 24 Hours Test 11/02/16 17:05 11/02/16 20:45 11/03/16 04:41 11/03/16 07:59 Bedside Glucose 101 mg/dl 110 mg/dl 117 mg/dl Total Creatine Kinase 53 U/L (Kena Fitzgerald, RIGOBERTOC) Assessment and Plan 56 yo female with PMHx of diabetes mellitus, atrial fibrillation who recently had a third left toe amputation last month here in the hospital. She was sent from her primary physician with left toe swelling, erythema with concerns for osteomyelitis in left toe. Left Great Toe Cellulitis with Concerns for Osteomyelitis: - Chronic osteo in R knee S/P TKA - on chronic Bactrim (hold Bactrim at this time) - Gen Surg following - --Left Great Toe Arthrotomy interphalangeal joint; Irrigation and Debridement Interphalangeal Joint; -- Left Bone Biopsy Proximal Phalanx Great Toe -- Right DuVries Arthroplasty Second Toe; -- Right Flexor tenotomy 2nd toe - ID following - Daptomycin 6 mg/kg - 720 mg IV daily x 6 weeks -- Will set-up ID and wound follow-up in 1 week Paroxysmal Atrial Fibrillation: - Amiodarone 200 mg BID, Metoprolol Succ 200 mg daily, and Xarelto 20 mg daily Diabetes Mellitus: - SSI Dyslipidemia: - Atorvastatin 40 mg QPM Hypertension: STABLE - Lisinopril 5 mg daily and hold HCTZ 25 mg daily Depression/Anxiety: - Wellbutrin SR 150 mg daily and Lexapro 10 mg daily - Ativan 0.5 mg BID prn anxiety Asthma: STABLE - Continue Singulair and inhalers DVT Prophylaxis: Xarelto CODE STATUS: FULL CODE Disposition: D/C tomorrow to sister with [facility] for PICC/Meds - Wound and ID F/U in 1 week and will give Rx for CBC, CMP, ESR/CRP, CPK while on Dapto Continued [facility] stay due to: multiple IV medications needed Discharge planning: home with home health (Kena Fitzgerald PA-C) Reviewed: Pt Seen/Exam by Me (Nicky Vaughn MD) History Physician Explosive Specialist Supervision Note: I interviewed and examined the patient. Discussed with BALTAZAR Fitzgerald and agree with findings and plan as documented in the note. Any exceptions or clarifications are listed here: Patient feels much improved. Her pathology shows no osteomyelitis but does show evidence of gout. She was supposed to undergo cardioversion later this week but that has since been canceled as she has been off of her Xarelto and being treated for an infection. Vitals reviewed No acute distress, obese Irregularly irregular, normal rate, no murmurs gallops or rubs Lungs clear to auscultation bilaterally, breathing unlabored Abdomen positive bowel sounds soft nontender nondistended Extremities bilateral feet and ankles in Elijah wraps with dressings not removed 56-year-old female with a history of paroxysmal atrial fibrillation, diabetes, and previous toe osteomyelitis, here with left great toe suspected osteomyelitis and cellulitis. Had surgery for debridement and sampling of toe which did show gout but no osteomyelitis, but is growing highly resistant staph aureus. -Continue daptomycin -Consider allopurinol for prophylaxis of gout -She will contact cardiology to reschedule her cardioversion but will likely need to wait another month now -I question whether she should still be on the amiodarone 200 mg twice a day but she said that the barrel roller operator at [facility] recently refilled this same dose for her -Hopeful for discharge to home tomorrow with 6 weeks of IV daptomycin Documented By: Nicky Vaughn (Nicky Vaughn MD)
[2016-11-03] MEDS: ATORVASTATIN 40 MG TAB PO SCH (20:56)
[2016-11-03] MEDS: ESCITALOPRAM OXALATE 10 MG TAB PO SCH (20:57)
[2016-11-03] MEDS: MONTELUKAST SOD 10 MG TAB PO SCH (20:58)
[2016-11-03] MEDS: LISINOPRIL 5 MG TAB PO SCH (20:59)
[2016-11-03 22:55] VITALS: BP 127/68; PULSE 84; TEMP 36.6; O2SAT 97
[2016-11-04 05:27] LABS: HEMATOCRIT 33.7 % (37-47); MEAN CELL VOLUME 100.6 fL (80-100); MEAN CORPUSCULAR HEMOGLOBIN 31.6 pg (25-34); MEAN CORPUSCULAR HGB CONC 31.5 g/dl (32-36); MEAN PLATELET VOLUME 9.4 fL (7.4-10.4); PLATELET COUNT 230 K/uL (130-400); RED BLOOD COUNT 3.35 M/uL (4.2-5.4); WHITE BLOOD COUNT 6.18 K/uL (4.8-10.8)
[2016-11-04 05:53] LABS: BUN/CREATININE RATIO 17.2 (10-20); CALCIUM 9.1 mg/dl (8.5-10.1); CREATININE 0.74 mg/dl (0.60-1.20); POTASSIUM 4.6 mmol/L (3.5-5.1)
[2016-11-04 07:50] VITALS: BP 122/85; PULSE 86; TEMP 36.5; O2SAT 97
[2016-11-04 07:52] VITALS: O2SAT 97
[2016-11-04] MEDS: DOCUSATE SODIUM 100 MG CAP PO SCH (08:30)
[2016-11-04] MEDS: AMIODARONE 200 MG TAB PO SCH (08:32)
[2016-11-04] MEDS: MAGNESIUM OXIDE 400 MG TAB PO SCH (08:32)
[2016-11-04] MEDS: MULTIVITAMIN TAB PO SCH (08:33)
[2016-11-04] MEDS: METOPROLOL SUCC 50MG EXT REL TAB PO SCH (08:34)
[2016-11-04] MEDS: CYANOCOBALAMIN 500 MCG TAB (VIT B-12) PO SCH (08:35)
[2016-11-04] MEDS: CHOLECALCIFEROL 1000 INTER.UNIT TAB PO SCH (08:36)
[2016-11-04] MEDS: RIVAROXABAN 20 MG TAB PO SCH (08:37)
[2016-11-04] MEDS: BuPROPion SR 150 MG TABCR PO SCH (08:37)
[2016-11-04] MEDS: FLUTICASONE/SALMETEROL 250/50 (ADVAIR) 14 PUFF/1 INHALER INH SCH (08:38)
[2016-11-04] MEDS: INSULIN ASPART 100 UNITS/ML 3 ML PEN SC SCH ×2 (08:52→12:57)
--- NOTE | 2016-11-04 09:19 | Consultant Recommendations ---
Book Coverer Recommendations Date of Service Nov 04, 2016. Book Coverer Recommendations ACTIVITY RECOMMENDATIONS: Limitations: Partial Weight Bearing Bilateral Lower Extremities with cast shoes on. SPECIAL CARE INSTRUCTIONS: * Some drainage onto the dressing is normal and is no cause for alarm. * Some swelling is natural especially after walking. * When resting, keep your foot elevated above the level of your heart. * Call [facility] if you notice: -Increased drainage -Fever over 101 degrees F -Severe constant pain BANDAGE: * Change dressing every other day. * Keep bandage/cast dry at all times. PIN CARE: * Leave pins alone. * If pins come loose or fall out, notify physician. FOLLOW UP VISIT WITH DR. VU If appointment is not already scheduled: Please call [facility] after you get home today to schedule a follow-up appointment for [address] Vu at .
[2016-11-04] MEDS: OXYCODONE HCL IR 5 MG TAB (IMMEDIATE RELEASE) PO PRN (09:58)
[2016-11-04] MEDS: LORAZEPAM 0.5 MG TAB PO PRN (10:05)
[2016-11-04] MEDS ORDERED: OXYC-57 PO ×2 (10:08→10:21)
--- NOTE | 2016-11-04 10:18 | Discharge Instructions ---
Discharge Instructions Date of Service Nov 04, 2016. Admission Reason for Admission: Osteomyelitis Discharge Discharge Diagnosis / Problem: Osteomyelitis Discharge Goals Goal(s): Decrease discomfort, Improve function, Increase independence Activity Recommendations Activity Limitations: as noted below Lifting Limitations: gradually increase as tolerated Exercise/Sports Limitations: gradually increase as tolerated Weightbearing Status: Left partial, Right partial . Instructions / Follow-Up Instructions / Follow-Up Left Great Toe Cellulitis with Concerns for Osteomyelitis: - You will continue on antibiotics through your PICC line for at least 6 weeks to treat your foot. - DO NOT TAKE YOUR BACTRIM AT THIS TIME YOU WILL BE ON ANTIBIOTICS - THIS CAN BE RESUMED AFTER YOU FINISH THIS ANTIBIOTIC - We would like you to follow-up with infectious disease (the antibiotic/ infection doctor) in about 1 week and see wound care at that time to monitor your feet. - Follow-up with orthopedics as they recommend: Dr. Vu Please call [facility] after you get home today to schedule a follow-up appointment for [address] Vu at . - Recommending partial weight bearing on both feet with cast shoes PICC Line: - Keep an eye on your PICC site - keep this area clean and dry. - If this site gets painful, red, has drainage..or if you develop fever/chills or feeling ill....please come to the Emergency Department Home Medications: - Continue home medications as previously prescribed - except for the Bactrim as mentioned above while on Daptomycin, and you will STOP your HCTZ water pill as this can cause gout Follow-Up: - We will assist with an appointment with wound care and infectious disease in a week -- You will need to get routine blood work to monitor when on antibiotics - we will give you an Rx for the first one and this can be obtained by home nursing or at the lab you normally get blood drawn Current Hospital Diet Patient's current hospital diet: Diabetes Type 2 Diet Discharge Diet Recommended Diet: Diabetes Type 2 Diet (and also low purine diet to prevent gout) Procedures Procedures Performed: Left Great Toe Arthrotomy interphalangeal joint; Irrigation and Debridement Interphalangeal Joint; Left Bone Biopsy Proximal Phalanx Great Toe Right DuVries Arthroplasty Second Toe; Right Flexor tenotomy 2nd toe Pending Studies Studies pending at discharge: no Laboratory Results Hemoglobin A1c Test 10/31/16 06:12 Range/Units Estimated Average Glucose 128 mg/dl Hemoglobin A1c 6.1 H 4.5-5.6 % Medical Emergencies . Who to Call and When: Medical Emergencies: If at any time you feel your situation is an emergency, please call 911 immediately. . Non-Emergent Contact Non-Emergency issues call your: Primary Care Provider Call Non-Emergent contact if: you have a fever, your pain is concerning you, you have any medication questions . . "Provider Documentation" section prepared by Kena Fitzgerald. . Supervisor Pressing Department Recommendations Supervisor Pressing Department Recommendations: ACTIVITY RECOMMENDATIONS: Limitations: Partial Weight Bearing Bilateral Lower Extremities with cast shoes on. SPECIAL CARE INSTRUCTIONS: * Some drainage onto the dressing is normal and is no cause for alarm. * Some swelling is natural especially after walking. * When resting, keep your foot elevated above the level of your heart. * Call [facility] if you notice: -Increased drainage -Fever over 101 degrees F -Severe constant pain BANDAGE: * Leave bandage/cast in place unless otherwise directed. * Keep bandage/cast dry at all times. PIN CARE: * Leave pins alone. * If pins come loose or fall out, notify physician. FOLLOW UP VISIT WITH DR. VU If appointment is not already scheduled: Please call [facility] after you get home today to schedule a follow-up appointment for [address] Vu at . VTE Core Measure Inpt VTE Proph given/why not?: Other Anticoagulation (Xarelto) [place] Drug Monitoring Program Search Results: patient reviewed within database, no issues identified
--- NOTE | 2016-11-04 10:25 | Infectious Disease Progress Nt ---
Progress Note Date of Service Nov 04, 2016. Subjective Pt evaluation today including: conversation w/ patient, physical exam, chart review, lab review, review of studies No new complaints. Tolerating Abx. No fever. No worsening foot pain. All Other Systems: Reviewed and Negative Medications Current Inpatient Medications Medications (Trade) Dose Ordered Sig/Flash Route Start Time Stop Time Status Last Admin Dose Admin Acetaminophen (Tylenol Tab) 650 mg Q4H PRN PO 10/30/16 14:15 11/29/16 14:14 10/31/16 18:59 650 MG Al Hydrox/Mg Hydrox/Simethicone (Maalox Max Susp) 15 ml Q4H PRN PO 10/30/16 14:15 11/29/16 14:14 Magnesium Hydroxide (Milk Of Magnesia Susp) 30 ml Q6H PRN PO 10/30/16 14:15 11/29/16 14:14 Zolpidem Tartrate (Ambien Tab) 5 mg HSZ PRN PO 10/30/16 14:15 11/29/16 14:14 Glucose (Glucose 40% Gel) 15-30 GRAMS 15 GRAMS... UD PRN PO 10/30/16 14:15 11/29/16 14:14 Glucose (Glucose Chew Tab) 4-8 Tablets 4 Tabl... UD PRN PO 10/30/16 14:15 11/29/16 14:14 Dextrose (Dextrose 50% 50ML Syringe) 25-50ML OF 50% DW IV FOR... UD PRN IV 10/30/16 14:15 11/29/16 14:14 Glucagon (Glucagon Inj) 1 mg UD PRN SQ 10/30/16 14:15 11/29/16 14:14 Amiodarone HCl (Cordarone Tab) 200 mg BID PO 10/30/16 21:00 11/29/16 20:59 11/04/16 08:32 200 MG Atorvastatin Calcium (Lipitor Tab) 40 mg QPM PO 10/30/16 21:00 11/29/16 20:59 11/03/16 20:56 40 MG Bupropion HCl (Wellbutrin-Sr Tab) 150 mg DAILY PO 10/31/16 09:00 11/30/16 08:59 11/04/16 08:37 150 MG Escitalopram Oxalate (Lexapro Tab) 10 mg HS PO 10/30/16 21:00 11/29/16 20:59 11/03/16 20:57 10 MG Salmeterol Xinafoate/ Fluticasone (Advair Diskus 250/50 Inh) 1 puff DAILY INH 10/31/16 09:00 11/30/16 08:59 11/04/16 08:38 1 PUFF Lisinopril (Zestril Tab) 5 mg QPM PO 10/30/16 21:00 11/29/16 20:59 11/03/16 20:59 5 MG Lorazepam (Ativan Tab) 0.5 mg BID PRN PO 10/30/16 14:15 11/29/16 14:14 11/04/16 10:05 0.5 MG Magnesium Oxide (Mag-Ox Tab) 400 mg BID PO 10/30/16 21:00 11/29/16 20:59 11/04/16 08:32 400 MG Metoprolol Succinate (Toprol Xl Tab) 200 mg DAILY PO 10/31/16 09:00 11/30/16 08:59 11/04/16 08:34 200 MG Montelukast Sodium (Singulair Tab) 10 mg HS PO 10/30/16 21:00 11/29/16 20:59 11/03/16 20:58 10 MG Docusate Sodium (coLACE CAP) 100 mg BID PO 10/31/16 21:00 11/30/16 20:59 11/04/16 08:30 100 MG Multivitamins (Multivitamin Tab) 1 tab QAM PO 11/01/16 09:00 12/01/16 08:59 11/04/16 08:33 1 TAB Insulin Aspart (novoLOG ASPART) SLIDING SCALE If C... ACHS SC 10/31/16 17:15 11/30/16 17:14 11/04/16 08:52 6 UNITS Oxycodone HCl (Roxicodone Immediate Rel Tab) `1-2 tabs for pain 1 tab ... Q6H PRN PO 10/31/16 19:30 11/14/16 19:29 11/04/16 09:58 10 MG Cholecalciferol (Vitamin D Tab) 1,000 inter.unit DAILY PO 11/02/16 09:00 12/02/16 08:59 11/04/16 08:36 1,000 INTER.UNIT Cyanocobalamin (Vitamin B-12 Tab) 1,000 mcg DAILY PO 11/02/16 09:00 12/02/16 08:59 11/04/16 08:35 1,000 MCG Rivaroxaban (Xarelto Tab) 20 mg DAILY PO 11/01/16 12:00 12/01/16 11:59 11/04/16 08:37 20 MG Daptomycin 720 mg/ Sodium Chloride 64.4 ml @ 100 mls/hr Q24H IV 11/02/16 14:00 12/14/16 13:59 11/03/16 14:04 100 MLS/HR Heparin Sodium (Porcine) (Heparin 10 Unit/ ml 5 ml Flush) 5 ml PRN PRN FLUSH 11/02/16 17:00 12/02/16 16:59 11/04/16 05:21 5 ML Objective Vital Signs Date Time Temp Pulse Resp B/P (MAP) Pulse Ox O2 Delivery O2 Flow Rate FiO2 11/04/16 07:52 97 Room Air 11/04/16 07:50 36.5 86 17 122/85 (97) 97 Room Air 11/03/16 23:40 Nasal Cannula 2.0 11/03/16 22:55 36.6 84 18 127/68 (87) 97 Nasal Cannula 2.0 11/03/16 15:30 Room Air 11/03/16 15:13 36.6 70 18 119/84 (96) 97 Room Air Physical Exam General Appearance: WD/WN, no apparent distress, + obese Eyes: normal inspection, sclerae normal ENT: normal ENT inspection, pharynx normal Neck: supple, no adenopathy, trachea midline Respiratory/Chest: lungs clear, normal breath sounds, no respiratory distress Cardiovascular: no gallop, no murmur, + irregularly irregular Abdomen: normal bowel sounds, non tender, soft, no organomegaly Extremities: non-tender, no calf tenderness Neurologic/Psychiatric: alert, oriented x 3 Skin: normal color, no rash Lymphatic: no adenopathy Laboratory Results Last 24 Hours Test 11/03/16 12:16 11/03/16 17:27 11/03/16 20:45 11/04/16 05:09 Bedside Glucose 102 mg/dl 98 mg/dl 131 mg/dl White Blood Count 6.18 K/uL Red Blood Count 3.35 M/uL Hemoglobin 10.6 g/dL Hematocrit 33.7 % Mean Corpuscular Volume 100.6 fL Mean Corpuscular Hemoglobin 31.6 pg Mean Corpuscular Hemoglobin Concent 31.5 g/dl RDW Standard Deviation 57.1 fL RDW Coefficient of Variation 15.8 % Platelet Count 230 K/uL Mean Platelet Volume 9.4 fL Sodium Level 138 mmol/L Potassium Level 4.6 mmol/L Chloride Level 104 mmol/L Carbon Dioxide Level 30 mmol/L Anion Gap 4.0 mmol/L Blood Urea Nitrogen 13 mg/dl Creatinine 0.74 mg/dl Est Creatinine Clear Calc Drug Dose 107.9 ml/min Estimated GFR () 106.5 Estimated GFR (Non- 91.8 BUN/Creatinine Ratio 17.2 Random Glucose 108 mg/dl Calcium Level 9.1 mg/dl Assessment and Plan 52-year-old female with chronic infection of right knee prosthesis now presents with worsening infection of left great toe with probable septic arthritis and possible osteomyelitis. Cultures with resistant coag-negative Staph. recommend daptomycin 6 mg/kg daily for 6 weeks. Will follow.
[2016-11-04] MEDS ORDERED: SULF800T23 PO (11:28)
[2016-11-04] MEDS ORDERED: DAPT500I IV (11:28)
[2016-11-04] MEDS ORDERED: CLC100 PO (11:28)
[2016-11-04] MEDS ORDERED: ADVIN25/60 INH (11:28)
[2016-11-04 12:45] VITALS: BP 122/85; PULSE 86; TEMP 36.5; O2SAT 97
[2016-11-04] MEDS: SODIUM CHLORIDE 0.9% IV SCH (12:58)
[2016-11-04] MEDS: DAPTOMYCIN IV SCH (12:58)
--- NOTE | 2016-11-04 16:15 | Discharge Summary ---
Discharge Summary Date of Service Nov 04, 2016. (Kena Fitzgerald PA-C) Discharge Summary Admission Date: Oct 30, 2016 at 14:17 Discharge Date: Nov 04, 2016 Discharge Disposition: Home with services Principal Diagnosis: L Great Toe MRSA Osteomyelitis Problems/Secondary Diagnoses: (1) Osteomyelitis Status: Chronic Immunizations: Have You Had Influenza Vaccine: No History of Tetanus Vaccine?: Yes History of Pneumococcal: No History of Hepatitis B Vaccine: No Procedures: LOWER EXT NON-JOINT COMBO FINDINGS: Image quality is degraded by motion artifact. Localizer images: Unremarkable. Extensive subcutaneous edema and skin thickening predominantly over the dorsum of the forefoot. Postsurgical changes of the third toe amputation. Loss of normal T1 hyperintense marrow signal in the mid to distal proximal phalanx of the first toe and the base of the distal phalanx of the first toe. Associated diffuse T2 hyperintensity of marrow in the phalanges of the first toe. Apparent fragmentation of the base of the distal phalanx with extensive enhancement of the interphalangeal joint on postcontrast imaging. Additionally, volar subluxation of the first phalanx relative to the proximal phalanx. Loss of normal T1 hyperintense marrow signal within the head of the second metatarsal. Small amount of fluid at the second metatarsophalangeal joint with T2 hyperintensity of the head of the second metatarsal and subchondral cystic change. Less pronounced similar changes also noted at the head of the third metatarsal. Small rim-enhancing fluid collection at the head of the third metatarsal at the site of surgical site. Although mild T2 hyperintensity of the head of the third metatarsal is noted, no loss of normal T1 hyperintense marrow signal. Diffuse intramuscular T2 hyperintensity of the flexor compartment. IMPRESSION: 1. Findings consistent with septic arthritis/septic arthritis of the interphalangeal joint of the first toe. 2. Changes at the head of the second metatarsal are favored to be degenerative in etiology, although developing osteomyelitis is not excluded. Attention on follow-up. 3. Small rim-enhancing fluid collection at the head of the third metatarsal. Abscess not excluded, although this could represent a postoperative seroma. No convincing evidence of osteomyelitis of the third metatarsal. 4. Diffuse intramuscular edema in the flexor compartment, possibly indicating reactive myositis. 5. Skin thickening and edema of the dorsum of the foot could indicate cellulitis. Consultations: 1. Orthopedic Surgery 2. PT/OT (Kena Fitzgerald, BRANDEE) Principal Diagnosis: Left great toe septic arthritis with resistant Coag negative Staph Problems/Secondary Diagnoses: Chronic osteomyelitis in R knee S/P TKA Paroxysmal Atrial Fibrillation Diabetes Mellitus II Dyslipidemia Hypertension Depression/Anxiety Asthma VALERIE on nocturnal O2 Obesity Gout Procedures: Left Great Toe Arthrotomy interphalangeal joint; Irrigation and Debridement Interphalangeal Joint; Left Bone Biopsy Proximal Phalanx Great Toe Right DuVries Arthroplasty Second Toe; Right Flexor tenotomy 2nd toe (Nicky Vaughn MD) Medication Reconciliation New Medications: Daptomycin (Daptomycin) 500 Mg Inj 720 MG IV Q24H for 37 Days Oxycodone/Acetaminophen 5MG/325MG (Percocet 5MG/325MG) Tab 1-2 TABLETS PO Q6H PRN for Pain for 3 Days, #20 TAB Docusate Sodium (Docusate Sodium) 100 Mg Cap 100 MG PO BID for 30 Days, #60 CAP Changed Medications: Fluticasone Prop/Salmeterol (Advair Diskus 250/50 60 Dose) 1 Ea Aerp 1 PUFFS INH BID for 30 Days, 0 Refills (Changed from: DAILY; Removed Quantity; 90; Refills: 3) Sulfa/Trimethoprim (Bactrim Ds 800MG/160MG) Tab 1 TAB PO BID for 30 Days, TAB (Changed from: Removed Quantity) DO NOT TAKE UNTIL IV ANTIBIOTICS COMPLETED Continued Medications: Albuterol Sulfate (Proair Respiclick) 108 Mcg/Act Aer 2 PUFFS INH q4-6h PRN for SOB/Wheezing Amiodarone HCl (Amiodarone HCl) 200 Mg Tab 200 MG PO BID Atorvastatin (Lipitor) 40 Mg Tab 40 MG PO QPM, TAB Bupropion Hcl (Bupropion Hcl Er) 150 Mg Tab 150 MG PO DAILY for 30 Days, #30 TAB Calcium W/ Magnesium (Calcium & Magnesium) 1 Tab Tab 64-106 MG PO BID Cetirizine (Zyrtec) 10 Mg Tab 10 MG PO DAILY, TAB Cholecalciferol (Vitamin D3) 1,000 Unit Tab 1 TAB PO DAILY for 30 Days, #30 TAB 5 Refills Cyanocobalamin (Vitamin B-12) 1,000 Mcg Tab 1000 MCG PO DAILY, TAB Escitalopram (Lexapro) 10 Mg Tab 10 MG PO HS, 0 Refills Lisinopril (Zestril) 5 Mg Tab 5 MG PO QPM, TAB Lorazepam (Ativan) 0.5 Mg Tab 0.25-0.5 MG PO BID PRN for Anxiety/Agitation, TAB Magnesium Oxide (Magnesium-Oxide) 400 Mg Tab 400 MG PO BID for 30 Days, #60 TAB Metformin Hcl (Glucophage) 1,000 Mg Tab 1000 MG PO BID, TAB Metoprolol Succinate (Toprolxl (Toprol-Xl) 200 Mg Tabcr 200 MG PO DAILY, TAB Montelukast Sodium (Montelukast Sodium) 10 Mg Tab 1 TAB PO DAILY for 90 Days, #90 TAB 3 Refills Rivaroxaban (Xarelto) 20 Mg Tab 1 TAB PO DAILY for 30 Days, #30 TAB 11 Refills Discontinued Medications: Hydrochlorothiazide (Hydrochlorothiazide) 12.5 Mg Tab 1 TAB PO DAILY for 90 Days, #90 TAB 3 Refills Naproxen (Aleve) 220 Mg Tab 220 MG PO Q12 PRN for Pain, TAB Discharge Exam Review of Systems: Constitutional: No fever, No chills Respiratory: No cough, No shortness of breath Cardiovascular: No chest pain, No palpitations Abdomen: No pain, No nausea, No vomiting, No diarrhea, No constipation Musculoskeletal: + problem reported (pain in bilateral feet), No calf pain Genitourinary - Female: No dysuria, No urinary frequency Integumentary: No rash Physical Exam: General Appearance: WD/WN, no apparent distress Eyes: sclerae normal ENT: hearing grossly normal Neck: supple, no JVD, trachea midline Respiratory/Chest: lungs clear, normal breath sounds, no respiratory distress, no accessory muscle use Cardiovascular: no gallop, no murmur, + irregularly irregular Abdomen / GI: normal bowel sounds, non tender, soft Extremities: no calf tenderness, normal capillary refill, + pertinent finding (dressing intact to bilateral feet) Neurologic/Psychiatric: alert, oriented x 3 Skin: normal color, warm/dry (Kena Fitzgerald, RIGOBERTOC) Hospital Course ADMISSION: The patient is a 56-year-old female with history of diabetes mellitus , atrial fibrillation who recently had a third left toe amputation last month here in the hospital. She was sent from her primary physician with left toe swelling, erythema, most likely osteomyelitis in left toe. Lando mentioning patient does have right total knee replacement in the past and currently on chronic suppression for osteomyelitis on that joint. She is on Bactrim twice a day which makes the treatment choices little bit challenging adding to that her penicillin allergy. HOSPITAL COURSE: Ms. Agrawal was admitted for L great toe osteomyelitis. She has had chronic osteomyelitis of her R knee and is on chronic Bactrim. She has also had multiple amputations and chronic infection involving the bilateral feet. Imaging supports an osteomyelitis but pathology report does make not of crystals suggesting gout. She was not started on Allopurinol given the chance it could initially worsen symptoms but may be a good consideration to initiate given findings and DM history. She was evaluated by ID and recommendations for Daptomycin 6 mg/kg x 6 weeks and she will be followed as an outpatient. PICC line in place and she will have [place] and [facility]. Due to surgical intervention Xarelto was held and therefore her scheduled Cardioversion for 11/07 will need postponed and patient notified cardiology. Home medications resumed as previously prescribed except the following: HCTZ discontinued as BP has been well-controlled off this medication. Disposition: - [facility] for PICC/Meds - Wound and ID F/U and gave Rx for CBC, CMP, ESR/CRP, CPK while on Dapto - Recommend to hold Bactrim while receiving Daptomycin and can resume after completion of Daptomycin treatment - Consideration for Allopurinol given gout crystals on pathology and increased risk Total Time Spent: Greater than 30 minutes This includes examination of the patient, discharge planning, medication reconciliation, and communication with other providers. (Kena Fitzgerald PA-C) Discharge Instructions Please refer to the electronic Patient Visit Report (Discharge Instructions) for additional information. (Kena Fitzgerald PA-C) Additional Copies To Parveen Fishman M.D. Reviewed: Pt Seen/Exam by Me (Nicky Vaughn MD) History Physician Sign Erector Supervision Note: I interviewed and examined the patient. Discussed with BALTAZAR Fitzgerald and agree with findings and plan as documented in the note. Any exceptions or clarifications are listed here: Patient feels much improved. Her pathology shows no osteomyelitis but does show evidence of gout. She was supposed to undergo cardioversion later this week but that has since been canceled as she has been off of her Xarelto and being treated for an infection. Vitals reviewed No acute distress, obese Irregularly irregular, normal rate, no murmurs gallops or rubs Lungs clear to auscultation bilaterally, breathing unlabored Abdomen positive bowel sounds soft nontender nondistended Extremities bilateral feet and ankles in Elijah wraps with dressings not removed 56-year-old female with a history of paroxysmal atrial fibrillation, diabetes, and previous toe osteomyelitis, here with left great toe suspected osteomyelitis and cellulitis. Had surgery for debridement and sampling of toe which did show gout but no osteomyelitis, but is growing highly resistant staph aureus, has a septic toe joint. -Continue daptomycin for 6 weeks -Consider allopurinol for prophylaxis of gout as an outpatient, counseled on low purine diet -She will contact cardiology to reschedule her cardioversion but will likely need to wait another month now -I question whether she should still be on the amiodarone 200 mg twice a day but she said that the aircraft launch and recovery technician at [place] [facility] recently refilled this same dose for her -for discharge to home with 6 weeks of IV daptomycin -f/u with ID and Wound Care, Ortho, PCP, Cardiology Documented By: Nicky Vaughn (Nicky Vaughn MD)
== END 2016-11-04 13:45 | disposition home health service (06) | DRG 629 ==
LOC: C.EDB 08:46 → C.MSW 14:17 → ENRESERV 15:16
PROVIDERS: ADMIT Internal Medicine; ATTEND Family Medicine
PROC: 0SBQ0ZX Excision of Left Toe Phalangeal Joint, Open Approach, Diagnostic (ICD-10-PCS; principal; 2016-10-31 11:45)
PROC: 0SSP04Z Reposition Right Toe Phalangeal Joint with Internal Fixation Device, Open Approach (ICD-10-PCS; principal; 2016-10-31 11:45)
PROC: 0L8V0ZZ Division of Right Foot Tendon, Open Approach (ICD-10-PCS; principal; 2016-10-31 11:45)
PROC: 0MDT0ZZ Extraction of Left Foot Bursa and Ligament, Open Approach (ICD-10-PCS; principal; 2016-10-31 11:45)
PROC: 02HV33Z Insertion of Infusion Device into Superior Vena Cava, Percutaneous Approach (ICD-10-PCS; 2016-11-02)
DX: E11.69 Type 2 diabetes mellitus with other specified complication (principal); M86.672 Other chronic osteomyelitis, left ankle and foot; M00.872 Arthritis due to other bacteria, left ankle and foot; M86.661 Other chronic osteomyelitis, right tibia and fibula; M86.662 Other chronic osteomyelitis, left tibia and fibula; M24.574 Contracture, right foot; L03.032 Cellulitis of left toe; Z79.01 Long term (current) use of anticoagulants; I48.0 Paroxysmal atrial fibrillation; J45.909 Unspecified asthma, uncomplicated; M20.5X1 Other deformities of toe(s) (acquired), right foot; F32.9 Major depressive disorder, single episode, unspecified; E78.5 Hyperlipidemia, unspecified; E11.40 Type 2 diabetes mellitus with diabetic neuropathy, unspecified; Z96.651 Presence of right artificial knee joint; Z83.3 Family history of diabetes mellitus; Z88.0 Allergy status to penicillin; Z89.422 Acquired absence of other left toe(s); I10 Essential (primary) hypertension; Z87.891 Personal history of nicotine dependence; Z98.890 Other specified postprocedural states; Z79.890 Hormone replacement therapy; Z79.2 Long term (current) use of antibiotics; B95.8 Unspecified staphylococcus as the cause of diseases classified elsewhere; M1A.9XX0 Chronic gout, unspecified, without tophus (tophi)

== ENCOUNTER → 2016-11-25 | Outpatient (CLI) | payer BC ==
[~2016-11-25] MED LIST changes: +CLC100 PO; +CRD200 PO; +DAPT500I IV; -DILT0.05 PO; -HYDR12.55 PO; -NAPR1TAB9 PO; +OXYC-57 PO; -OXYC-88 PO; -SULF800T23 PO
[2016-11-25 12:10] LABS: HEMATOCRIT 36.3 % (37-47); MEAN CELL VOLUME 98.4 fL (80-100); MEAN CORPUSCULAR HEMOGLOBIN 30.4 pg (25-34); MEAN CORPUSCULAR HGB CONC 30.9 g/dl (32-36); MEAN PLATELET VOLUME 11.3 fL (7.4-10.4); PLATELET COUNT 253 K/uL (130-400); RED BLOOD COUNT 3.69 M/uL (4.2-5.4); WHITE BLOOD COUNT 6.16 K/uL (4.8-10.8)
[2016-11-25 12:22] LABS: ALT/SGPT 16 U/L (12-78); AST/SGOT 18 U/L (15-37); BLOOD UREA NITROGEN 10 mg/dl (7-18); BUN/CREATININE RATIO 14.4 (10-20); C-REACTIVE PROTEIN 0.61 mg/dl (0-0.29); CALCIUM 8.7 mg/dl (8.5-10.1); CARBON DIOXIDE 29 mmol/L (21-32); CHLORIDE 102 mmol/L (98-107); CREATININE 0.66 mg/dl (0.60-1.20); GLUCOSE 98 mg/dl (70-99); POTASSIUM 4.1 mmol/L (3.5-5.1); SODIUM 138 mmol/L (136-145)
[2016-11-25 12:24] LABS: ALB/GLOB RATIO 0.9 (0.9-2); ALKALINE PHOSPHATASE 113 U/L (45-117)
--- NOTE | 2016-12-02 07:08 | CODING QUERY NO DIAGNOSIS ---
TREATMENT RENDERED WITHOUT A DIAGNOSIS To promote full compliance with coding requirements relating to patient care, physician participation is requested in all cases of surgical instrument mechanic uncertainty. Please assist us with providing a diagnosis/symptom for the test(s) below: A diagnosis/symptom was not documented on your Order. A valid diagnosis/symptom is required to bill all insurances. Please remember that we are unable to code a diagnosis of rule out, probable, possible, questionable, or suspected. Tests that require a diagnosis: DOS: 11/25/16 * CBC DIAGNOSIS: * CMP DIAGNOSIS: * CPK DIAGNOSIS: * CRP DIAGNOSIS: * ESR DIAGNOSIS: Provider Signature: Date: Thank you Meagan Shepard [facility] Information Management Once completed, please kindly fax back to [phone] For questions please call [phone]
== END | disposition home or self-care (01) ==
LOC: C.LABSPEC 11:39
PROVIDERS: ATTEND Internal Medicine Infectious Disease
DX: M86.9 Osteomyelitis, unspecified (principal); T84.53XA Infection and inflammatory reaction due to internal right knee prosthesis, initial encounter; Y83.1 Surgical operation with implant of artificial internal device as the cause of abnormal reaction of the patient, or of later complication, without mention of misadventure at the time of the procedure

== ENCOUNTER → 2016-12-02 | Outpatient (CLI) | payer BC ==
[2016-12-02 15:16] LABS: MEAN CELL VOLUME 97.9 fL (80-100); MEAN CORPUSCULAR HEMOGLOBIN 29.9 pg (25-34); MEAN CORPUSCULAR HGB CONC 30.5 g/dl (32-36); PLATELET COUNT 242 K/uL (130-400); RED BLOOD COUNT 3.88 M/uL (4.2-5.4); WHITE BLOOD COUNT 8.22 K/uL (4.8-10.8)
[2016-12-02 15:25] LABS: ALT/SGPT 18 U/L (12-78); AST/SGOT 12 U/L (15-37); BLOOD UREA NITROGEN 15 mg/dl (7-18); BUN/CREATININE RATIO 15.3 (10-20); CARBON DIOXIDE 29 mmol/L (21-32); CHLORIDE 100 mmol/L (98-107); CREATININE 0.96 mg/dl (0.60-1.20); GLUCOSE 104 mg/dl (70-99); POTASSIUM 3.9 mmol/L (3.5-5.1); SODIUM 137 mmol/L (136-145)
[2016-12-02 15:27] LABS: ALB/GLOB RATIO 1.1 (0.9-2); ALKALINE PHOSPHATASE 110 U/L (45-117); C-REACTIVE PROTEIN 0.35 mg/dl (0-0.29)
== END | disposition home or self-care (01) ==
LOC: C.LABSPEC 14:54
PROVIDERS: ATTEND Physician Assistant
DX: M86.9 Osteomyelitis, unspecified (principal); Z79.2 Long term (current) use of antibiotics

== ENCOUNTER → 2016-12-09 | Outpatient (CLI) | payer BC ==
[2016-12-09 13:03] LABS: HEMATOCRIT 36.6 % (37-47); MEAN CELL VOLUME 96.1 fL (80-100); MEAN CORPUSCULAR HEMOGLOBIN 31.2 pg (25-34); MEAN CORPUSCULAR HGB CONC 32.5 g/dl (32-36); MEAN PLATELET VOLUME 10.9 fL (7.4-10.4); PLATELET COUNT 223 K/uL (130-400); RED BLOOD COUNT 3.81 M/uL (4.2-5.4); WHITE BLOOD COUNT 5.62 K/uL (4.8-10.8)
[2016-12-09 14:17] LABS: ALT/SGPT 20 U/L (12-78); BLOOD UREA NITROGEN 17 mg/dl (7-18); BUN/CREATININE RATIO 23.6 (10-20); C-REACTIVE PROTEIN < 0.29 mg/dl (0-0.29); CALCIUM 9.5 mg/dl (8.5-10.1); CARBON DIOXIDE 30 mmol/L (21-32); CHLORIDE 96 mmol/L (98-107); CREATININE 0.72 mg/dl (0.60-1.20); GLUCOSE 98 mg/dl (70-99); POTASSIUM 4.1 mmol/L (3.5-5.1); SODIUM 135 mmol/L (136-145)
[2016-12-09 14:20] LABS: ALB/GLOB RATIO 1.2 (0.9-2); ALKALINE PHOSPHATASE 101 U/L (45-117); AST/SGOT 17 U/L (15-37)
== END | disposition home or self-care (01) ==
LOC: C.LABSPEC 12:23
PROVIDERS: ATTEND Physician Assistant
DX: M86.9 Osteomyelitis, unspecified (principal)

== ENCOUNTER → 2016-12-17 | Outpatient (CLI) | payer BC ==
[2016-12-17 15:55] LABS: HEMATOCRIT 37.4 % (37-47); MEAN CELL VOLUME 96.6 fL (80-100); MEAN PLATELET VOLUME 10.9 fL (7.4-10.4); PLATELET COUNT 240 K/uL (130-400); RED BLOOD COUNT 3.87 M/uL (4.2-5.4); WHITE BLOOD COUNT 5.99 K/uL (4.8-10.8)
[2016-12-17 16:07] LABS: ALT/SGPT 26 U/L (12-78); AST/SGOT 22 U/L (15-37); BLOOD UREA NITROGEN 23 mg/dl (7-18); BUN/CREATININE RATIO 28.1 (10-20); CALCIUM 8.7 mg/dl (8.5-10.1); CARBON DIOXIDE 31 mmol/L (21-32); CHLORIDE 95 mmol/L (98-107); CREATININE 0.83 mg/dl (0.60-1.20); GLUCOSE 97 mg/dl (70-99); POTASSIUM 3.8 mmol/L (3.5-5.1); SODIUM 133 mmol/L (136-145)
[2016-12-17 16:09] LABS: ALB/GLOB RATIO 1.2 (0.9-2); ALKALINE PHOSPHATASE 103 U/L (45-117); C-REACTIVE PROTEIN < 0.29 mg/dl (0-0.29)
== END | disposition home or self-care (01) ==
LOC: C.LABSPEC 15:08
PROVIDERS: ATTEND Physician Assistant
DX: M86.9 Osteomyelitis, unspecified (principal)

== ENCOUNTER → 2016-12-23 | Outpatient (CLI) | payer BC ==
[2016-12-23 18:42] LABS: MEAN CELL VOLUME 96.4 fL (80-100); MEAN CORPUSCULAR HEMOGLOBIN 30.7 pg (25-34); MEAN CORPUSCULAR HGB CONC 31.9 g/dl (32-36); MEAN PLATELET VOLUME 11.8 fL (7.4-10.4); PLATELET COUNT 222 K/uL (130-400); RED BLOOD COUNT 3.84 M/uL (4.2-5.4)
[2016-12-23 18:51] LABS: ALT/SGPT 27 U/L (12-78); AST/SGOT 19 U/L (15-37); BLOOD UREA NITROGEN 17 mg/dl (7-18); CALCIUM 8.7 mg/dl (8.5-10.1); CARBON DIOXIDE 30 mmol/L (21-32); CHLORIDE 96 mmol/L (98-107); CREATININE 0.83 mg/dl (0.60-1.20); GLUCOSE 126 mg/dl (70-99); POTASSIUM 3.9 mmol/L (3.5-5.1); SODIUM 135 mmol/L (136-145)
[2016-12-23 18:53] LABS: ALB/GLOB RATIO 1.2 (0.9-2); ALKALINE PHOSPHATASE 117 U/L (45-117); C-REACTIVE PROTEIN < 0.29 mg/dl (0-0.29)
== END | disposition home or self-care (01) ==
LOC: C.LABSPEC 17:19
PROVIDERS: ATTEND Internal Medicine
DX: M86.9 Osteomyelitis, unspecified (principal)

== ENCOUNTER → 2017-01-06 | Outpatient (CLI) | payer BC ==
[2017-01-06 18:15] LABS: HEMATOCRIT 39.8 % (37-47); MEAN CELL VOLUME 97.3 fL (80-100); MEAN CORPUSCULAR HEMOGLOBIN 29.1 pg (25-34); MEAN CORPUSCULAR HGB CONC 29.9 g/dl (32-36); MEAN PLATELET VOLUME 11.7 fL (7.4-10.4); PLATELET COUNT 277 K/uL (130-400); RED BLOOD COUNT 4.09 M/uL (4.2-5.4); WHITE BLOOD COUNT 7.95 K/uL (4.8-10.8)
[2017-01-06 18:47] LABS: ALB/GLOB RATIO 1.1 (0.9-2); ALKALINE PHOSPHATASE 127 U/L (45-117); ALT/SGPT 28 U/L (12-78); AST/SGOT 25 U/L (15-37); BLOOD UREA NITROGEN 20 mg/dl (7-18); BUN/CREATININE RATIO 23.3 (10-20); C-REACTIVE PROTEIN 0.49 mg/dl (0-0.29); CALCIUM 8.9 mg/dl (8.5-10.1); CARBON DIOXIDE 28 mmol/L (21-32); CHLORIDE 99 mmol/L (98-107); CREATININE 0.84 mg/dl (0.60-1.20); GLUCOSE 90 mg/dl (70-99); POTASSIUM 3.9 mmol/L (3.5-5.1); SODIUM 138 mmol/L (136-145)
--- NOTE | 2017-01-16 09:30 | CODING QUERY NO DIAGNOSIS ---
: 1960 TREATMENT RENDERED WITHOUT A DIAGNOSIS To promote full compliance with coding requirements relating to patient care, physician participation is requested in all cases of plate worker helper uncertainty. Please assist us with providing a diagnosis/symptom for the test(s) below: A diagnosis/symptom was not documented on your Order. A valid diagnosis/symptom is required to bill all insurances. Please remember that we are unable to code a diagnosis of rule out, probable, possible, questionable, or suspected. Tests that require a diagnosis: DOS: 01/06/17 * CBC DIAGNOSIS: * COMPREHENSIVE METABOLIC PANEL DIAGNOSIS: * CREATINE PHOSPHOKINASE DIAGNOSIS: * C- REACTIVE PROTEIN DIAGNOSIS: * ESR DIAGNOSIS: Provider Signature: Date: Thank you Regine [facility] Information Management Once completed, please kindly fax back to [phone] For questions please call [phone]
== END | disposition home or self-care (01) ==
LOC: C.LABSPEC 11:53
PROVIDERS: ATTEND Internal Medicine Infectious Disease
DX: M86.179 Other acute osteomyelitis, unspecified ankle and foot (principal)

== ENCOUNTER → 2017-01-14 | Outpatient (CLI) | payer BC ==
[~2017-01-14] MED LIST changes: +GADAVIST IV PRN
--- NOTE | 2017-01-14 09:34 | DIAGNOSTIC IMAGING REPORT ---
LEFT FOREFOOT MRI HISTORY: Left great toe osteomyelitis. Swelling. TECHNIQUE: Multiplanar multisequence MRI of the left forefoot was performed both before and after the intravenous administration of contrast. COMPARISON STUDY: Left forefoot MRI 10/31/2016. FINDINGS: Diffuse soft tissue swelling and enhancement within the first toe. There is progressive destruction and fragmentation involving the majority of the distal phalanx of the first toe as well as the head of the proximal phalanx. This is consistent with progressive septic arthritis/osteomyelitis. There is a peripherally enhancing fluid collection at the interphalangeal joint which measures 1.9 x 0.9 cm. This is consistent with an abscess. Prior amputation of the third toe. Mild soft tissue enhancement surrounding the head of the third metatarsal. This could be due to granulation tissue from prior postoperative change. There is a 7 mm focus of T2 hyperintense, T1 hypointense signal abnormality within the medial head of the second metatarsal. This may demonstrate mild cortical destruction and could represent an additional site of osteomyelitis. There is dorsal subcutaneous edema within the forefoot. IMPRESSION: 1. There is progressive destruction and fragmentation involving the majority of the distal phalanx of the first toe as well as the head of the proximal phalanx. This is consistent with progressive septic arthritis/osteomyelitis. 2. There is a peripherally enhancing fluid collection at the interphalangeal joint of the first toe which measures 1.9 x 0.9 cm. This is consistent with an abscess. 3. There is a 7 mm focus of T2 hyperintense, T1 hypointense signal abnormality within the medial head of the second metatarsal. This may demonstrate mild cortical destruction and could represent an additional site of osteomyelitis. Electronically signed by: Aron Mcelroy M.D. 01/14/2017 9:33 AM Dictated Date/Time: 01/14/2017 9:25 AM
== END | disposition home or self-care (01) ==
LOC: C.MRI 07:47
PROVIDERS: ATTEND Internal Medicine Infectious Disease
DX: M86.9 Osteomyelitis, unspecified (principal); R93.7 Abnormal findings on diagnostic imaging of other parts of musculoskeletal system

== ENCOUNTER → 2017-01-14 | Outpatient (CLI) | payer BC ==
[~2017-01-14] MED LIST changes: -GADAVIST IV PRN
[2017-01-14 19:07] LABS: HEMATOCRIT 37.3 % (37-47); MEAN CELL VOLUME 93.7 fL (80-100); MEAN CORPUSCULAR HEMOGLOBIN 30.2 pg (25-34); MEAN CORPUSCULAR HGB CONC 32.2 g/dl (32-36); MEAN PLATELET VOLUME 11.2 fL (7.4-10.4); PLATELET COUNT 265 K/uL (130-400); RED BLOOD COUNT 3.98 M/uL (4.2-5.4); WHITE BLOOD COUNT 6.94 K/uL (4.8-10.8)
[2017-01-14 19:29] LABS: ALT/SGPT 32 U/L (12-78); AST/SGOT 23 U/L (15-37); BLOOD UREA NITROGEN 19 mg/dl (7-18); BUN/CREATININE RATIO 22.3 (10-20); CALCIUM 9.2 mg/dl (8.5-10.1); CARBON DIOXIDE 28 mmol/L (21-32); CHLORIDE 94 mmol/L (98-107); CREATININE 0.86 mg/dl (0.60-1.20); GLUCOSE 95 mg/dl (70-99); POTASSIUM 3.9 mmol/L (3.5-5.1); SODIUM 132 mmol/L (136-145)
[2017-01-14 19:32] LABS: ALB/GLOB RATIO 1.1 (0.9-2); ALKALINE PHOSPHATASE 120 U/L (45-117); C-REACTIVE PROTEIN < 0.29 mg/dl (0-0.29)
== END | disposition home or self-care (01) ==
LOC: C.LABSPEC 10:09
PROVIDERS: ATTEND Internal Medicine Infectious Disease
DX: M86.172 Other acute osteomyelitis, left ankle and foot (principal)

== ENCOUNTER → 2017-01-20 | Outpatient (CLI) | payer BC ==
[2017-01-20 17:08] LABS: HEMATOCRIT 38.1 % (37-47); MEAN CELL VOLUME 94.1 fL (80-100); MEAN CORPUSCULAR HEMOGLOBIN 29.9 pg (25-34); MEAN CORPUSCULAR HGB CONC 31.8 g/dl (32-36); MEAN PLATELET VOLUME 11.3 fL (7.4-10.4); PLATELET COUNT 236 K/uL (130-400); RED BLOOD COUNT 4.05 M/uL (4.2-5.4); WHITE BLOOD COUNT 7.04 K/uL (4.8-10.8)
[2017-01-20 17:26] LABS: ALT/SGPT 38 U/L (12-78); AST/SGOT 29 U/L (15-37); BLOOD UREA NITROGEN 14 mg/dl (7-18); BUN/CREATININE RATIO 21.1 (10-20); CALCIUM 8.6 mg/dl (8.5-10.1); CARBON DIOXIDE 28 mmol/L (21-32); CHLORIDE 97 mmol/L (98-107); CREATININE 0.67 mg/dl (0.60-1.20); GLUCOSE 87 mg/dl (70-99); POTASSIUM 3.9 mmol/L (3.5-5.1); SODIUM 135 mmol/L (136-145)
[2017-01-20 17:29] LABS: ALB/GLOB RATIO 1.2 (0.9-2); ALKALINE PHOSPHATASE 113 U/L (45-117); C-REACTIVE PROTEIN < 0.29 mg/dl (0-0.29)
== END | disposition home or self-care (01) ==
LOC: C.LABSPEC 12:50
PROVIDERS: ATTEND Internal Medicine Infectious Disease
DX: Z79.2 Long term (current) use of antibiotics (principal)

== ENCOUNTER → 2017-02-24 | Outpatient (CLI) | payer BC ==
[~2017-02-24] MED LIST changes: +METO-649 PO; -METO1TAB71 PO
[2017-02-24 18:25] LABS: MEAN CELL VOLUME 93.9 fL (80-100); MEAN CORPUSCULAR HEMOGLOBIN 29.9 pg (25-34); MEAN CORPUSCULAR HGB CONC 31.9 g/dl (32-36); MEAN PLATELET VOLUME 11.4 fL (7.4-10.4); PLATELET COUNT 260 K/uL (130-400); RED BLOOD COUNT 3.94 M/uL (4.2-5.4); WHITE BLOOD COUNT 7.36 K/uL (4.8-10.8)
[2017-02-24 18:32] LABS: ALT/SGPT 38 U/L (12-78); BLOOD UREA NITROGEN 19 mg/dl (7-18); BUN/CREATININE RATIO 23.8 (10-20); CALCIUM 9.3 mg/dl (8.5-10.1); CARBON DIOXIDE 30 mmol/L (21-32); CHLORIDE 95 mmol/L (98-107); CREATININE 0.78 mg/dl (0.60-1.20); GLUCOSE 107 mg/dl (70-99); POTASSIUM 3.7 mmol/L (3.5-5.1); SODIUM 134 mmol/L (136-145)
[2017-02-24 18:35] LABS: ALKALINE PHOSPHATASE 129 U/L (45-117); AST/SGOT 27 U/L (15-37)
== END | disposition home or self-care (01) ==
LOC: C.LABSPEC 17:42
PROVIDERS: ATTEND Internal Medicine Infectious Disease
DX: M86.9 Osteomyelitis, unspecified (principal)

== ENCOUNTER → 2017-03-04 | Outpatient (CLI) | payer BC ==
[~2017-03-04] MED LIST changes: +BUPR-79 PO; +MAGN400T6 PO
[2017-03-04 18:16] LABS: HEMATOCRIT 35.6 % (37-47); HEMOGLOBIN 11.5 g/dL (12.0-16.0); MEAN CELL VOLUME 94.2 fL (80-100); MEAN CORPUSCULAR HEMOGLOBIN 30.4 pg (25-34); MEAN CORPUSCULAR HGB CONC 32.3 g/dl (32-36); MEAN PLATELET VOLUME 11.7 fL (7.4-10.4); PLATELET COUNT 247 K/uL (130-400); RED CELL DISTRIBUTION WIDTH CV 14.8 % (11.5-14.5); RED CELL DISTRIBUTION WIDTH SD 50.5 fL (36.4-46.3); WHITE BLOOD COUNT 6.13 K/uL (4.8-10.8)
[2017-03-04 18:38] LABS: ALBUMIN 3.9 gm/dl (3.4-5.0); ALT/SGPT 40 U/L (12-78); AST/SGOT 31 U/L (15-37); BLOOD UREA NITROGEN 19 mg/dl (7-18); CALCIUM 8.7 mg/dl (8.5-10.1); CARBON DIOXIDE 27 mmol/L (21-32); CREATININE 0.96 mg/dl (0.60-1.20); GLUCOSE 113 mg/dl (70-99); POTASSIUM 3.6 mmol/L (3.5-5.1); SODIUM 130 mmol/L (136-145)
[2017-03-04 18:40] LABS: ALKALINE PHOSPHATASE 130 U/L (45-117); TOTAL PROTEIN 7.6 gm/dl (6.4-8.2)
== END | disposition home or self-care (01) ==
LOC: C.LABSPEC 09:54
PROVIDERS: ATTEND Internal Medicine Infectious Disease
DX: M86.9 Osteomyelitis, unspecified (principal)

== ENCOUNTER → 2017-03-11 | Outpatient (CLI) | payer BC ==
[~2017-03-11] MED LIST changes: -METO-649 PO; +METO200T32 PO; +SULF-302 PO; +TRIA37.53 PO
[2017-03-11 16:41] LABS: HEMATOCRIT 36.6 % (37-47); HEMOGLOBIN 11.5 g/dL (12.0-16.0); MEAN CELL VOLUME 94.3 fL (80-100); MEAN CORPUSCULAR HEMOGLOBIN 29.6 pg (25-34); MEAN CORPUSCULAR HGB CONC 31.4 g/dl (32-36); MEAN PLATELET VOLUME 11.6 fL (7.4-10.4); PLATELET COUNT 232 K/uL (130-400); RED CELL DISTRIBUTION WIDTH CV 14.8 % (11.5-14.5); RED CELL DISTRIBUTION WIDTH SD 50.2 fL (36.4-46.3); WHITE BLOOD COUNT 7.09 K/uL (4.8-10.8)
[2017-03-11 17:02] LABS: ALT/SGPT 36 U/L (12-78); BLOOD UREA NITROGEN 18 mg/dl (7-18); CALCIUM 8.9 mg/dl (8.5-10.1); CARBON DIOXIDE 30 mmol/L (21-32); CREATININE 0.84 mg/dl (0.60-1.20); GLUCOSE 113 mg/dl (70-99); POTASSIUM 3.9 mmol/L (3.5-5.1); SODIUM 135 mmol/L (136-145)
[2017-03-11 17:12] LABS: ALKALINE PHOSPHATASE 128 U/L (45-117); AST/SGOT 25 U/L (15-37); TOTAL PROTEIN 7.5 gm/dl (6.4-8.2)
== END | disposition home or self-care (01) ==
LOC: C.LABSPEC 10:00
PROVIDERS: ATTEND Internal Medicine Infectious Disease
DX: M86.9 Osteomyelitis, unspecified (principal)

== ENCOUNTER → 2017-03-17 | Outpatient (CLI) | payer BC ==
[~2017-03-17] MED LIST changes: -BUPR-79 PO; -MAGN400T6 PO; +METO-649 PO; -METO200T32 PO; -SULF-302 PO; -TRIA37.53 PO
[2017-03-17 18:23] LABS: MEAN CELL VOLUME 92.7 fL (80-100); MEAN CORPUSCULAR HGB CONC 32.4 g/dl (32-36); MEAN PLATELET VOLUME 11.7 fL (7.4-10.4); PLATELET COUNT 229 K/uL (130-400); WHITE BLOOD COUNT 6.81 K/uL (4.8-10.8)
[2017-03-17 18:33] LABS: ALT/SGPT 37 U/L (12-78); BLOOD UREA NITROGEN 22 mg/dl (7-18); BUN/CREATININE RATIO 26.7 (10-20); CARBON DIOXIDE 28 mmol/L (21-32); CHLORIDE 95 mmol/L (98-107); CREATININE 0.82 mg/dl (0.60-1.20); GLUCOSE 104 mg/dl (70-99); SODIUM 133 mmol/L (136-145)
[2017-03-17 18:36] LABS: ALB/GLOB RATIO 1.2 (0.9-2); ALKALINE PHOSPHATASE 132 U/L (45-117); AST/SGOT 28 U/L (15-37)
== END | disposition home or self-care (01) ==
LOC: C.LABSPEC 09:48
PROVIDERS: ATTEND Internal Medicine Infectious Disease
DX: M86.9 Osteomyelitis, unspecified (principal)

== ENCOUNTER → 2017-03-28 | Outpatient (CLI) | payer BC ==
[~2017-03-28] MED LIST changes: +BUPR-79 PO; +MAGN400T6 PO
[2017-03-28 14:51] LABS: HEMATOCRIT 34.9 % (37-47); HEMOGLOBIN 11.3 g/dL (12.0-16.0); MEAN CELL VOLUME 92.8 fL (80-100); MEAN CORPUSCULAR HEMOGLOBIN 30.1 pg (25-34); MEAN CORPUSCULAR HGB CONC 32.4 g/dl (32-36); PLATELET COUNT 236 K/uL (130-400); RED CELL DISTRIBUTION WIDTH CV 14.9 % (11.5-14.5); RED CELL DISTRIBUTION WIDTH SD 50.6 fL (36.4-46.3); WHITE BLOOD COUNT 6.06 K/uL (4.8-10.8)
[2017-03-28 15:18] LABS: ALBUMIN 3.9 gm/dl (3.4-5.0); ALT/SGPT 33 U/L (12-78); BLOOD UREA NITROGEN 20 mg/dl (7-18); CALCIUM 8.3 mg/dl (8.5-10.1); CARBON DIOXIDE 31 mmol/L (21-32); CREATININE 0.65 mg/dl (0.60-1.20); GLUCOSE 86 mg/dl (70-99); SODIUM 134 mmol/L (136-145)
[2017-03-28 15:21] LABS: ALKALINE PHOSPHATASE 125 U/L (45-117); AST/SGOT 27 U/L (15-37); TOTAL PROTEIN 7.1 gm/dl (6.4-8.2)
== END | disposition home or self-care (01) ==
LOC: C.LAB 13:08
PROVIDERS: ATTEND Internal Medicine Infectious Disease
DX: M86.9 Osteomyelitis, unspecified (principal)

== ENCOUNTER → 2017-04-04 | Outpatient (CLI) | payer BC ==
[~2017-04-04] MED LIST changes: -METO-649 PO; +METO200T32 PO
[2017-04-04 13:29] LABS: HEMATOCRIT 37.4 % (37-47); MEAN CELL VOLUME 92.6 fL (80-100); MEAN CORPUSCULAR HEMOGLOBIN 29.7 pg (25-34); MEAN CORPUSCULAR HGB CONC 32.1 g/dl (32-36); MEAN PLATELET VOLUME 11.3 fL (7.4-10.4); PLATELET COUNT 240 K/uL (130-400); RED CELL DISTRIBUTION WIDTH CV 15.1 % (11.5-14.5); RED CELL DISTRIBUTION WIDTH SD 50.9 fL (36.4-46.3); WHITE BLOOD COUNT 6.84 K/uL (4.8-10.8)
[2017-04-04 13:49] LABS: ALBUMIN 4.2 gm/dl (3.4-5.0); ALT/SGPT 38 U/L (12-78); BLOOD UREA NITROGEN 18 mg/dl (7-18); CALCIUM 8.6 mg/dl (8.5-10.1); CARBON DIOXIDE 29 mmol/L (21-32); CREATININE 0.89 mg/dl (0.60-1.20); GLUCOSE 99 mg/dl (70-99); POTASSIUM 4.3 mmol/L (3.5-5.1); SODIUM 134 mmol/L (136-145)
[2017-04-04 13:51] LABS: ALKALINE PHOSPHATASE 125 U/L (45-117); AST/SGOT 36 U/L (15-37); TOTAL PROTEIN 7.3 gm/dl (6.4-8.2)
--- NOTE | 2017-04-08 11:59 | CODING QUERY NO DIAGNOSIS ---
TREATMENT RENDERED WITHOUT A DIAGNOSIS 62 To promote full compliance with coding requirements relating to patient care, physician participation is requested in all cases of computer language coder uncertainty. Please assist us with providing a diagnosis/symptom for the test(s) below: A diagnosis/symptom was not documented on your Order. A valid diagnosis/symptom is required to bill all insurances. Please remember that we are unable to code a diagnosis of rule out, probable, possible, questionable, or suspected. DOS 04/04/17 Tests that require a diagnosis: * CBC W/O DIFF DIAGNOSIS: * COMP METABOLIC DIAGNOSIS: * CREATINE PHOSPHOKINASE DIAGNOSIS: Provider Signature: Date: Thank you Jodi Brewster [facility] Information Management Once completed, please kindly fax back to [phone] For questions please call [phone]
== END | disposition home or self-care (01) ==
LOC: C.LABSPEC 12:35
PROVIDERS: ATTEND Internal Medicine Infectious Disease
DX: M86.179 Other acute osteomyelitis, unspecified ankle and foot (principal)

== ENCOUNTER → 2017-04-10 | Outpatient (CLI) | payer OTHER ==
[~2017-04-10] MED LIST changes: -CLC100 PO; -OXYC-57 PO
[2017-04-10 18:50] LABS: HEMATOCRIT 36.4 % (37-47); HEMOGLOBIN 11.7 g/dL (12.0-16.0); MEAN CELL VOLUME 92.9 fL (80-100); MEAN CORPUSCULAR HEMOGLOBIN 29.8 pg (25-34); MEAN CORPUSCULAR HGB CONC 32.1 g/dl (32-36); PLATELET COUNT 239 K/uL (130-400); RED CELL DISTRIBUTION WIDTH CV 15.5 % (11.5-14.5); RED CELL DISTRIBUTION WIDTH SD 52.1 fL (36.4-46.3); WHITE BLOOD COUNT 6.39 K/uL (4.8-10.8)
[2017-04-10 19:03] LABS: ALBUMIN 3.9 gm/dl (3.4-5.0); ALT/SGPT 41 U/L (12-78); BLOOD UREA NITROGEN 16 mg/dl (7-18); CALCIUM 8.8 mg/dl (8.5-10.1); CARBON DIOXIDE 30 mmol/L (21-32); CREATININE 0.87 mg/dl (0.60-1.20); GLUCOSE 83 mg/dl (70-99); POTASSIUM 3.5 mmol/L (3.5-5.1); SODIUM 134 mmol/L (136-145)
[2017-04-10 19:06] LABS: ALKALINE PHOSPHATASE 126 U/L (45-117); AST/SGOT 37 U/L (15-37); TOTAL PROTEIN 7.4 gm/dl (6.4-8.2)
== END | disposition home or self-care (01) ==
LOC: C.LABSPEC 10:05
PROVIDERS: ATTEND Internal Medicine Infectious Disease
DX: M00.872 Arthritis due to other bacteria, left ankle and foot (principal); B95.61 Methicillin susceptible Staphylococcus aureus infection as the cause of diseases classified elsewhere; E11.9 Type 2 diabetes mellitus without complications; I48.0 Paroxysmal atrial fibrillation

== ENCOUNTER 2017-04-12 22:28 | Inpatient (IN) | payer OTHER ==
[~2017-04-12] VITALS: Ht 160 cm; Wt 115.1 kg
[~2017-04-12 22:28] MED LIST changes: -BUPR-79 PO; -MAGN400T6 PO
[2017-04-12] MEDS ORDERED: ADVIN25/60 INH (22:54)
[2017-04-12] MEDS ORDERED: MAGN400T6 PO (22:54)
[2017-04-12] MEDS ORDERED: BUPR-79 PO (22:54)
[2017-04-12 23:16] LABS: BASO % 0.6 %; BASO ABS # 0.04 K/uL (0-0.2); EOS % 3.2 %; EOS ABS # 0.21 K/uL (0-0.5); HEMATOCRIT 34.7 % (37-47); HEMOGLOBIN 11.3 g/dL (12.0-16.0); IG# 0.02 K/uL (0.00-0.02); LYMPH % 27.3 %; LYMPH ABS # 1.81 K/uL (1.2-3.4); MEAN CELL VOLUME 91.6 fL (80-100); MEAN CORPUSCULAR HEMOGLOBIN 29.8 pg (25-34); MEAN CORPUSCULAR HGB CONC 32.6 g/dl (32-36); MEAN PLATELET VOLUME 10.5 fL (7.4-10.4); MONO % 8.3 %; MONO ABS # 0.55 K/uL (0.11-0.59); NEUT % 60.3 %; NEUT ABS # 3.99 K/uL (1.4-6.5); PLATELET COUNT 223 K/uL (130-400); RED CELL DISTRIBUTION WIDTH CV 15.1 % (11.5-14.5); RED CELL DISTRIBUTION WIDTH SD 50.2 fL (36.4-46.3); WHITE BLOOD COUNT 6.62 K/uL (4.8-10.8)
[2017-04-12 23:32] LABS: ALBUMIN 3.9 gm/dl (3.4-5.0); ALT/SGPT 39 U/L (12-78); BLOOD UREA NITROGEN 14 mg/dl (7-18); CALCIUM 8.3 mg/dl (8.5-10.1); CARBON DIOXIDE 24 mmol/L (21-32); CREATININE 0.58 mg/dl (0.60-1.20); GLUCOSE 88 mg/dl (70-99); SODIUM 133 mmol/L (136-145)
[2017-04-12 23:43] LABS: ALKALINE PHOSPHATASE 125 U/L (45-117); AST/SGOT 39 U/L (15-37); TOTAL PROTEIN 7.3 gm/dl (6.4-8.2)
[2017-04-12] MEDS ORDERED: MAGNESIUM SULFATE 1GM / D5W 1 GM BAG IV STA (23:43)
[2017-04-12] MEDS ORDERED: POTASSIUM CHLORIDE 10 MEQ TABCR PO STA (23:43)
[2017-04-13] MEDS ORDERED: MoRPHine SULFATE 4 MG/ML 1 ML CARP\\VIAL IV STA ×2 (00:01→01:37)
[2017-04-13] MEDS ORDERED: MAGNESIUM HYDROXIDE SUSP 30 ML UDC PO PRN (01:45)
[2017-04-13] MEDS ORDERED: ACETAMINOPHEN 325 MG TAB PO PRN (01:45)
[2017-04-13] MEDS ORDERED: POLYETHYLENE (MIRALAX) 17 GM PACK PO PRN (01:45)
[2017-04-13] MEDS ORDERED: ALBUTEROL HFA INHALER 8.5 GM INH PRN (01:45)
[2017-04-13] MEDS ORDERED: HYDROmorphone INJ 1 MG/ML SYR IV PRN (01:45)
[2017-04-13] MEDS ORDERED: ALUMINUM/MAGNESIUM/SIMETH (MAALOX MAX) 30 ML UDC PO PRN (01:45)
[2017-04-13] MEDS ORDERED: DAPTOmycin 500 MG VIAL IV SCH (01:45)
[2017-04-13] MEDS ORDERED: ONDANSETRON INJ 2 MG/ML 2 ML VIAL IV PRN (01:45)
--- NOTE | 2017-04-13 01:50 | EMERGENCY ROOM VISIT NOTE ---
History First contact with patient: 22:29 Chief Complaint: FALL Stated Complaint: FALL, R SHOULDER PAIN, L KNEE PAIN History of Present Illness The patient is a 56 year old female who presents to the Emergency Room with complaints of fall just prior to arrival. Patient states she got lightheaded when she was trying to feed the cat and fell landing on her right side injuring her right shoulder, right chest wall, left knee. Patient complains mild headache, 3 out of 10. Nothing makes it better or worse located To the frontal region. Patient is on Xarelto for paroxysmal A. fib. The patient denies exertional chest pain, dyspnea, abdominal pain, back pain, hip pain, pelvic pain , numbness, tingling. Patient takes daptomycin daily for osteomyelitis for the left foot. She has a PICC line. Review of Systems See HPI for pertinent positives & negatives. A total of 10 systems reviewed and were otherwise negative. Past Medical/Surgical History Medical Problems: (1) Abscess or cellulitis of foot (2) Anxiety (3) Asthma (4) cellulitis (5) Cellulitis of third toe, left (6) Cellulitis of third toe, left (7) Depression (8) Diabetes (9) Diabetic foot infection (10) Hypercholesteremia (11) Hypertension (12) Hypomagnesemia (13) Osteomyelitis (14) Paroxysmal a-fib (15) Patellar fracture Surgical Problems: (1) History of knee replacement procedure of right knee (2) Post-operative state Family History Diabetes mellitus FHx: cancer FHx: heart disease Hypertension Kidney disease Kidney stones Social History Smoking Status: Never Smoker Alcohol Use: none Drug Use: none Marital Status: single Housing Status: lives with family Occupation Status: employed Current/Historical Medications Scheduled Amiodarone HCl (Amiodarone HCl), 200 MG PO BID Atorvastatin (Lipitor), 40 MG PO QPM Bupropion (Wellbutrin Sr), 150 MG PO DAILY Calcium W/ Magnesium (Calcium & Magnesium), 64-106 MG PO DAILY Cetirizine (Zyrtec), 10 MG PO DAILY Cholecalciferol (Vitamin D3), 1 TAB PO DAILY Cyanocobalamin (Vitamin B-12), 1,000 MCG PO DAILY Daptomycin (Daptomycin), 720 MG IV Q24H Escitalopram (Lexapro), 10 MG PO HS Fluticasone Prop/Salmeterol (Advair Diskus 250/50 60 Dose), 1 PUFF INH BID Lisinopril (Zestril), 5 MG PO QPM Magnesium Oxide (Mag-Ox), 400 MG PO BID Metformin Hcl (Glucophage), 1,000 MG PO BID Metoprolol Succinate (Toprolxl (Toprol-Xl), 200 MG PO DAILY Montelukast Sodium (Montelukast Sodium), 1 TAB PO DAILY Rivaroxaban (Xarelto), 1 TAB PO DAILY Scheduled PRN Albuterol Sulfate (Proair Respiclick), 2 PUFFS INH q4-6h PRN for SOB/Wheezing Lorazepam (Ativan), 0.25-0.5 MG PO BID PRN for Anxiety/Agitation Physical Exam Vital Signs Date Time Temp Pulse Resp B/P (MAP) Pulse Ox O2 Delivery O2 Flow Rate FiO2 04/13/17 01:37 102 20 155/101 98 Nasal Cannula 2.0 04/13/17 00:55 102 20 148/101 92 Room Air 04/13/17 00:08 103 20 141/99 93 Room Air 04/12/17 23:35 102 22 133/107 94 Room Air 04/12/17 22:53 94 Room Air 04/12/17 22:53 94 Room Air 04/12/17 22:42 99 04/12/17 22:30 36.7 99 18 160/120 95 Room Air Physical Exam PHYSICAL EXAM: VITALS: Vitals are noted on the nurse's note and reviewed by myself. Vital signs stable. GENERAL: Pleasant female following commands, in no acute distress, nondiaphoretic, well-developed well-nourished. SKIN: Superficial abrasion to forehead, healing ulcer to left second toe without signs of infection, contusion to left knee The rest of the skin was without obvious lacerations or abrasions. Capillary reflex less than 2 seconds. HEAD: Normocephalic atraumatic. EARS: External auditory canals clear, tympanic membranes pearly blackman without erythema or effusion bilaterally. No hemotympanums. No roa sign. No mastoid tenderness. EYES: Pupils equal round and reactive to light and accommodation. Conjunctivae without injection, sclerae without icterus. Extraocular movements intact. NOSE: Patent, turbinates without inflammation or discharge. No sinus tenderness. No septal hematoma or bleeding. FACE: No facial bone tenderness. Full range of motion of the jaw without tenderness. MOUTH: Mucous membranes moist. Pharynx without erythema or exudate. Uvula midline. Airway patent. Tongue does not deviate. NECK: Supple without nuchal rigidity. Cervical spine is nontender. Full range of motion of the neck without tenderness. No JVD. HEART: Regular rate and rhythm LUNGS: Clear to auscultation bilaterally without wheezes, rales or rhonchi. No dullness to percussion. No retractions or accessory muscle use. No chest wall tenderness. ABDOMEN: Positive bowel sounds x 4. Normal tympanic percussion. Soft, nontender, without masses or organomegaly. No guarding or rebound tenderness. MUSCULOSKELETAL: No tenderness of the thoracic or lumbar spine. No tenderness with pelvic rocking. Right shoulder tender to palpation with increased pain range of motion, left knee tender to palpation with increased pain with range of motion, and Full range of motion without tenderness to palpation in all other extremities. Peripheral pulses 2+. NEURO: Patient was alert and oriented to person place and time. Normal Mini- Mental status exam. Normal sensation to light and sharp touch. Cerebellar function intact. No focal neurological deficits. Medical Decision & Procedures Laboratory Results 04/12/17 23:01 Red Blood Count 3.79, Mean Corpuscular Volume 91.6, Mean Corpuscular Hemoglobin 29.8, Mean Corpuscular Hemoglobin Concent 32.6, Mean Platelet Volume 10.5, Neutrophils (%) (Auto) 60.3, Lymphocytes (%) (Auto) 27.3, Monocytes (%) (Auto) 8.3, Eosinophils (%) (Auto) 3.2, Basophils (%) (Auto) 0.6, Neutrophils # (Auto) 3.99, Lymphocytes # (Auto) 1.81, Monocytes # (Auto) 0.55, Eosinophils # (Auto) 0.21, Basophils # (Auto) 0.04 04/12/17 23:01 Test 04/12/17 23:01 04/12/17 23:30 White Blood Count 6.62 K/uL (4.8-10.8) Red Blood Count 3.79 M/uL (4.2-5.4) Hemoglobin 11.3 g/dL (12.0-16.0) Hematocrit 34.7 % (37-47) Mean Corpuscular Volume 91.6 fL (80-100) Mean Corpuscular Hemoglobin 29.8 pg (25-34) Mean Corpuscular Hemoglobin Concent 32.6 g/dl (32-36) Platelet Count 223 K/uL (130-400) Mean Platelet Volume 10.5 fL (7.4-10.4) Neutrophils (%) (Auto) 60.3 % Lymphocytes (%) (Auto) 27.3 % Monocytes (%) (Auto) 8.3 % Eosinophils (%) (Auto) 3.2 % Basophils (%) (Auto) 0.6 % Neutrophils # (Auto) 3.99 K/uL (1.4-6.5) Lymphocytes # (Auto) 1.81 K/uL (1.2-3.4) Monocytes # (Auto) 0.55 K/uL (0.11-0.59) Eosinophils # (Auto) 0.21 K/uL (0-0.5) Basophils # (Auto) 0.04 K/uL (0-0.2) RDW Standard Deviation 50.2 fL (36.4-46.3) RDW Coefficient of Variation 15.1 % (11.5-14.5) Immature Granulocyte % (Auto) 0.3 % Immature Granulocyte # (Auto) 0.02 K/uL (0.00-0.02) Anion Gap 14.0 mmol/L (3-11) Est Creatinine Clear Calc Drug Dose 148.6 ml/min Estimated GFR () 121.1 Estimated GFR (Non- 104.5 BUN/Creatinine Ratio 24.0 (10-20) Calcium Level 8.3 mg/dl (8.5-10.1) Magnesium Level 1.1 mg/dl (1.8-2.4) Total Bilirubin 0.5 mg/dl (0.2-1) Direct Bilirubin 0.2 mg/dl (0-0.2) Aspartate Amino Transf (AST/SGOT) 39 U/L (15-37) Alanine Aminotransferase (ALT/SGPT) 39 U/L (12-78) Alkaline Phosphatase 125 U/L (45-117) Total Creatine Kinase 93 U/L (26-192) Troponin I < 0.015 ng/ml (0-0.045) Total Protein 7.3 gm/dl (6.4-8.2) Albumin 3.9 gm/dl (3.4-5.0) Thyroid Stimulating Hormone (TSH) 17.300 uIu/ml (0.300-4.500) Urine Color YELLOW Urine Appearance CLEAR (CLEAR) Urine pH 5.5 (4.5-7.5) Urine Specific [place] 1.011 (1.000-1.030) Urine Protein NEG (NEG) Urine Glucose (UA) NEG (NEG) Urine Ketones NEG (NEG) Urine Occult Blood NEG (NEG) Urine Nitrite NEG (NEG) Urine Bilirubin NEG (NEG) Urine Urobilinogen NEG (NEG) Urine Leukocyte Esterase TRACE (NEG) Urine WBC (Auto) 1-5 /hpf (0-5) Urine RBC (Auto) 0-4 /hpf (0-4) Urine Hyaline Casts (Auto) 1-5 /lpf (0-5) Urine Epithelial Cells (Auto) 10-20 /lpf (0-5) Urine Bacteria (Auto) NEG (NEG) Medications Administered Medications (Trade) Dose Ordered Sig/Flash Route Start Time Stop Time Status Last Admin Dose Admin Magnesium Sulfate (Magnesium Sulfate) 2 gm NOW STAT IV 04/12/17 23:43 04/12/17 23:44 DC 04/12/17 23:51 2 GM Potassium Chloride (Klor-Con M10) 40 meq NOW STAT PO 04/12/17 23:43 04/12/17 23:44 DC 04/12/17 23:50 40 MEQ Morphine Sulfate (MoRPHine SULFATE INJ) 4 mg NOW STAT IV 04/13/17 00:01 04/13/17 00:04 DC 04/13/17 00:07 4 MG Morphine Sulfate (MoRPHine SULFATE INJ) 4 mg NOW STAT IV 04/13/17 01:37 04/13/17 01:38 DC 04/13/17 01:42 4 MG ED Course Prior records/ancillary studies reviewed. Triage Nursing notes reviewed. Additional history obtained from EMS. The patient's history was concerning for traumatic injury Differential diagnosis: Etiologies such as fracture, dislocation, intra-abdominal, pneumothorax, intrathoracic , intracranial, neurologic, as well as other traumatic pathologies were entertained. Physical examination findings: As above. The patients vitals were hypertensive. ER treatment provided: Wound care by nursing, magnesium, potassium, knee immobilizer and neurovascular status was checked after placement and is intact. On reassessment the patient felt better. Vital signs were stable Diagnostic interpretation by me: A 12 lead ECG revealed normal sinus, possibly U waves, no acute ST changes, prolonged QT. Impression normal sinus with possible U waves and prolonged QT concern for electrolyte abnormality interpreted by myself The labs revealed low magnesium. Hypokalemia. Negative troponinImaging studies: CT LEFT KNEE: Horizontally orientated patella fracture with approximately 1 cm of distraction anteriorly. No other fracture is seen. No dislocation. Extensive tricompartmental degenerative changes. Prepatellar and suprapatellar hematoma. Small joint effusion. Radiologist: Manas Moss MD CT HEAD: No acute intracranial abnormality. No ICH, mass effect or edema. Frontal scalp contusion. No skull fracture. Cortical atrophy and white matter changes most consistent with chronic small vessel disease. CT CHEST Without Contrast: No acute fracture. No pneumothorax. No pleural effusion. No consolidation. Cardiomegaly. Left upper lobe pulmonary nodule and right apical fluid collection are no longer present. Right PICC line tip terminates at the cavoatrial junction. Radiologist: Manas Moss MD Knee x-ray concerning for patellar fracture with possible tibial plateau fracture so further imaging was ordered. Consultation: A consultation was placed with Dr Frankel. The case was discussed and diagnostics were reviewed. The patient was evaluated by him for possible admission. This appears to be consistent with knee fx, hypo-magnesia, hypokalemia, weakness. Patient was quite weak. She is given magnesium potassium. She did not feel comfortable going home with her knee fracture. She will be evaluated by medicine for possible admission. By the evaluation outlined above emergent etiologies such as dislocation, intra-abdominal, pneumothorax, pulmonary contusion, hemothorax, intracranial, neurologic,as well as others were deemed relatively unlikely. The pt informed about the findings as listed above. All questions were answered and pleased with the treatment. case reviewed with my Attending. Medical Decision As above Medication Reconcilliation Current Medication List: was personally reviewed by me Blood Pressure Screening Patient's blood pressure: Elevated blood pressure Blood pressure disposition: Referred to PCP Impression Primary Impression: Left patella fracture Additional Impressions: Hypomagnesemia Hypokalemia Weakness Departure Information Dispostion Being Evaluated By Hospitalist Condition GOOD Referrals No Doctor, Assigned (PCP) Patient Instructions My [facility] Problem Qualifiers Primary Impression: Left patella fracture Encounter type: initial encounter Fracture type: closed Fracture morphology : transverse Fracture alignment: displaced Qualified Codes: S82.032A - Displaced transverse fracture of left patella, initial encounter for closed fracture
--- NOTE | 2017-04-13 02:11 | History and Physical ---
History & Physical Date & Time of Service: Apr 13, 2017 at 01:20 Chief Complaint: Fall, R Shoulder Pain, L Knee Pain Primary Care Physician: Parveen Fishman M.D. History of Present Illness Source: patient 56 y/o F Hx DM, PAF - on Xarelto, Asthma, HPL, gout, morbid obesity, osteomyelitis of L great toe - MRSA + biopsy - currently treated with Daptomycin. Pt became lightheaded when feeding her cat and suffered a fall landing on her L knee. A CT was obtained in the ER confirming a L patellar fracture with prepatellar and suprapatellar hematoma and joint effusion. She denies CP, palpitations, SOB, N/V, diaphoresis preceding her fall. Initial labs are notable for hypomagnesemia and hypokalemia. An EKG is abnormal and may reflect her electrolyte abnormalities. The pt admits that she has not been compliant with her supplements over the holidays. Past Medical/Surgical History 1) DM II 2) Osteomyelitis of L great toe. Previous osteomyelitis of L 2nd toe 3) Chronic infection of R knee - underwent replacement although infection was not of hardware 4) Asthma 5) Paroxysmal AF 6) HPL Family History Diabetes mellitus FHx: cancer FHx: heart disease Hypertension Kidney disease Kidney stones Social History Smoking Status: Never Smoker Alcohol Use: occasionally Drug Use: none Marital Status: single Occupational Status: employed Immunizations History of Influenza Vaccine: No History of Tetanus Vaccine?: Yes History of Pneumococcal: No History of Hepatitis B Vaccine: No Multi-Drug Resistant Organisms History of MDRO: No Allergies Coded Allergies: Penicillins (Verified Allergy, Unknown, UNKNOWN, 03/19/15) Home Medications Scheduled Amiodarone HCl (Amiodarone HCl), 200 MG PO BID Atorvastatin (Lipitor), 40 MG PO QPM Bupropion (Wellbutrin Sr), 150 MG PO DAILY Calcium W/ Magnesium (Calcium & Magnesium), 64-106 MG PO DAILY Cetirizine (Zyrtec), 10 MG PO DAILY Cholecalciferol (Vitamin D3), 1 TAB PO DAILY Cyanocobalamin (Vitamin B-12), 1,000 MCG PO DAILY Daptomycin (Daptomycin), 720 MG IV Q24H Escitalopram (Lexapro), 10 MG PO HS Fluticasone Prop/Salmeterol (Advair Diskus 250/50 60 Dose), 1 PUFF INH BID Lisinopril (Zestril), 5 MG PO QPM Magnesium Oxide (Mag-Ox), 400 MG PO BID Metformin Hcl (Glucophage), 1,000 MG PO BID Metoprolol Succinate (Toprolxl (Toprol-Xl), 200 MG PO DAILY Montelukast Sodium (Montelukast Sodium), 1 TAB PO DAILY Rivaroxaban (Xarelto), 1 TAB PO DAILY Scheduled PRN Albuterol Sulfate (Proair Respiclick), 2 PUFFS INH q4-6h PRN for SOB/Wheezing Lorazepam (Ativan), 0.25-0.5 MG PO BID PRN for Anxiety/Agitation Review of Systems Constitutional: No fever, No chills, No sweats Eyes: No worsening of vision ENT: No hearing loss, No nasal symptoms Respiratory: No cough, No sputum, No wheezing Cardiovascular: No chest pain, No orthopnea, No PND Abdomen: No pain, No nausea, No vomiting Musculoskeletal: + joint pain (Pain at trauma site L knee) Genitourinary - Female: No dysuria, No urinary frequency, No urinary urgency Neurologic: + problem reported (Reports lightheadedness), No memory loss, No weakness Psychiatric: No depression symptoms Endocrine: No fatigue Hematologic / Lymphatic: No abnormal bleeding/bruising Integumentary: + problem reported (L great toe ), No rash Allergic / Immunologic: No environmental allergies Physical Exam Vital Signs Date Time Temp Pulse Resp B/P (MAP) Pulse Ox O2 Delivery O2 Flow Rate FiO2 04/13/17 00:55 102 20 148/101 92 Room Air 04/13/17 00:08 103 20 141/99 93 Room Air 04/12/17 23:35 102 22 133/107 94 Room Air 04/12/17 22:53 94 Room Air 04/12/17 22:53 94 Room Air 04/12/17 22:42 99 04/12/17 22:30 36.7 99 18 160/120 95 Room Air General Appearance: WD/WN, no apparent distress, + obese, + pertinent finding ( PLeasant, overweight, middle-aged female - no distress) Head: normocephalic Eyes: normal inspection ENT: normal ENT inspection, pharynx normal Neck: supple Respiratory/Chest: chest non-tender, lungs clear, normal breath sounds Cardiovascular: regular rate, rhythm, no edema, no gallop Abdomen/GI: normal bowel sounds, non tender, soft Back: normal inspection, no CVA tenderness Extremities/Musculoskelatal: no calf tenderness, normal capillary refill, + pertinent finding (R 5th toe amputation, L 2nd toe partial amputation, R great toe incision - erythema, swelling of R knee ) 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, no motor/sensory deficits, alert, oriented x 3 Diagnostics Laboratory Results Results Past 24 Hours Test 04/12/17 23:01 04/12/17 23:30 Range/Units White Blood Count 6.62 4.8-10.8 K/uL Red Blood Count 3.79 4.2-5.4 M/uL Hemoglobin 11.3 12.0-16.0 g/dL Hematocrit 34.7 37-47 % Mean Corpuscular Volume 91.6 80-100 fL Mean Corpuscular Hemoglobin 29.8 25-34 pg Mean Corpuscular Hemoglobin Concent 32.6 32-36 g/dl Platelet Count 223 130-400 K/uL Mean Platelet Volume 10.5 7.4-10.4 fL Neutrophils (%) (Auto) 60.3 % Lymphocytes (%) (Auto) 27.3 % Monocytes (%) (Auto) 8.3 % Eosinophils (%) (Auto) 3.2 % Basophils (%) (Auto) 0.6 % Neutrophils # (Auto) 3.99 1.4-6.5 K/uL Lymphocytes # (Auto) 1.81 1.2-3.4 K/uL Monocytes # (Auto) 0.55 0.11-0.59 K/uL Eosinophils # (Auto) 0.21 0-0.5 K/uL Basophils # (Auto) 0.04 0-0.2 K/uL RDW Standard Deviation 50.2 36.4-46.3 fL RDW Coefficient of Variation 15.1 11.5-14.5 % Immature Granulocyte % (Auto) 0.3 % Immature Granulocyte # (Auto) 0.02 0.00-0.02 K/uL Sodium Level 133 136-145 mmol/L Potassium Level 3.0 3.5-5.1 mmol/L Chloride Level 95 98-107 mmol/L Carbon Dioxide Level 24 21-32 mmol/L Anion Gap 14.0 3-11 mmol/L Blood Urea Nitrogen 14 7-18 mg/dl Creatinine 0.58 0.60-1.20 mg/dl Est Creatinine Clear Calc Drug Dose 148.6 ml/min Estimated GFR () 121.1 Estimated GFR (Non- 104.5 BUN/Creatinine Ratio 24.0 10-20 Random Glucose 88 70-99 mg/dl Calcium Level 8.3 8.5-10.1 mg/dl Magnesium Level 1.1 1.8-2.4 mg/dl Total Bilirubin 0.5 0.2-1 mg/dl Direct Bilirubin 0.2 0-0.2 mg/dl Aspartate Amino Transf (AST/SGOT) 39 15-37 U/L Alanine Aminotransferase (ALT/SGPT) 39 12-78 U/L Alkaline Phosphatase 125 45-117 U/L Total Creatine Kinase 93 26-192 U/L Troponin I < 0.015 0-0.045 ng/ml Total Protein 7.3 6.4-8.2 gm/dl Albumin 3.9 3.4-5.0 gm/dl Thyroid Stimulating Hormone (TSH) 17.300 0.300-4.500 uIu/ml Urine Color YELLOW Urine Appearance CLEAR CLEAR Urine pH 5.5 4.5-7.5 Urine Specific [place] 1.011 1.000-1.030 Urine Protein NEG NEG Urine Glucose (UA) NEG NEG Urine Ketones NEG NEG Urine Occult Blood NEG NEG Urine Nitrite NEG NEG Urine Bilirubin NEG NEG Urine Urobilinogen NEG NEG Urine Leukocyte Esterase TRACE NEG Urine WBC (Auto) 1-5 0-5 /hpf Urine RBC (Auto) 0-4 0-4 /hpf Urine Hyaline Casts (Auto) 1-5 0-5 /lpf Urine Epithelial Cells (Auto) 10-20 0-5 /lpf Urine Bacteria (Auto) NEG NEG Diagnostic Radiology L patellar fracture with prepatellar and suprapatellar hematoma and joint effusion. EKG Sinus - inferior elevations are present Impression Assessment and Plan 56 y/o F Hx DM, PAF - on Xarelto, Asthma, HPL, gout, morbid obesity, osteomyelitis of L great toe - MRSA + biopsy - currently treated with Daptomycin. Pt became lightheaded when feeding her cat and suffered a fall landing on her L knee. A CT was obtained in the ER confirming a L patellar fracture with prepatellar and suprapatellar hematoma and joint effusion. She denies CP, palpitations, SOB, N/V, diaphoresis preceding her fall. Initial labs are notable for hypomagnesemia and hypokalemia. An EKG is abnormal and may reflect her electrolyte abnormalities. The pt admits that she has not been compliant with her supplements over the holidays. 1) Patellar fracture and hematoma - pressure applied, ortho consulted. Will hold Xarelto. She cannot presently ambulate and will likely need rehab. 2) Hypomagnesemia and Hypokalemia - has not complied with supplements - replaced in ER - will trend BMP/Mag AM. May need to increase PO doses prior to DC due to severity and possible related EKG changes 3) EKG changes - no additional evidence of ACS - we will repeat following electrolyte replacement as it is currently suspected that the changes are due to her deficiencies - will recheck a trop as well. 4) DM - placed on a SS 5) Osteomyelitis of toe - cont Dapto daily 6) Asthma - cont prescribed inhalers 7) PAF - rhythm is sinus on admission - cont Amiodarone, Metoprolol - Xarelto held owing to hematoma Full code - Prophylaxis held Total time for this admit including review of labs, meds, records, EKG, imaging - discussion with pt and ER attending - 38 min Level of Care Telemetry Resuscitation Status FULL RESUSCITATION VTE Prophylaxis Given or contraindicated: Contraindicated
[2017-04-13 02:48] VITALS: BP 149/96; PULSE 101; TEMP 36.7; O2SAT 96; Ht 160 cm; Wt 115.1 kg
[2017-04-13] MEDS ORDERED: NSS + 20MEQ KCL 1000ML 1,000 ML IV SCH (03:00)
--- NOTE | 2017-04-13 06:25 | DIAGNOSTIC IMAGING REPORT ---
HEAD WITHOUT CONTRAST (CT) CT DOSE: HISTORY: Trauma fall, MONTEJO, on Xarelto TECHNIQUE: Multiaxial CT images of the head were performed without the use of intravenous contrast. A dose lowering technique was utilized adhering to the principles of ALARA. Comparison: None. Findings: The paranasal sinuses and mastoid air cells are clear. The calvarium and skull base are intact. The ventricles and sulci are within normal limits. There is no mass, hematoma, midline shift, or acute infarct. Impression: No acute intracranial abnormality. The above report was generated using voice recognition software. It may contain grammatical, syntax or spelling errors. Electronically signed by: Gerardo Moss M.D. 04/13/2017 6:23 AM Dictated Date/Time: 04/13/2017 6:23 AM
--- NOTE | 2017-04-13 06:28 | DIAGNOSTIC IMAGING REPORT ---
R SHOULDER MIN 2 VIEWS ROUTINE CLINICAL HISTORY: fall, pain trauma. Pain. COMPARISON: None. DISCUSSION: Partial anterior subluxation humeral head in relation to glenoid. Degenerative change glenohumeral as well as acromioclavicular joint. No well-defined fracture. Central catheter in superior vena cava. IMPRESSION: Partial anterior subluxation right humeral head in relation to glenoid. Degenerative change as discussed. Region The above report was generated using voice recognition software. It may contain grammatical, syntax or spelling errors. Electronically signed by: Gerardo Moss M.D. 04/13/2017 6:27 AM Dictated Date/Time: 04/13/2017 6:26 AM
--- NOTE | 2017-04-13 06:45 | DIAGNOSTIC IMAGING REPORT ---
L LOWER EXTREMITY WITHOUT CT DOSE: 350.46 mGy.cm HISTORY: Trauma left knee injury, ? tibial plat TECHNIQUE: Multiaxial CT images of the left knee were performed and reformatted in the sagittal and coronal plane without the use of contrast. A dose lowering technique was utilized adhering to the principles of ALARA. COMPARISON: None. FINDINGS: Comminuted fracture mid and inferior aspect of the patella. There is a transverse fracture extending to the mid articular surface of the patella. The anterior inferior margin of the patella is fractured and displaced inferiorly x 1 cm. There is an old fracture considered healed superior aspect of the patella versus osteophytic formation. Considerable degenerative change throughout all major joint compartments. There is an element of chondrocalcinosis. IMPRESSION: Comminuted fracture mid and inferior patella with nondisplaced fracture components extending to the mid patellar articulating surface, as well as a displaced fragment of the anterior inferior patella. Considerable degenerative change of all major compartments. The above report was generated using voice recognition software. It may contain grammatical, syntax or spelling errors. Electronically signed by: Gerardo Moss M.D. 04/13/2017 6:43 AM Dictated Date/Time: 04/13/2017 6:39 AM
[2017-04-13 07:01] LABS: HEMATOCRIT 33.2 % (37-47); HEMOGLOBIN 10.5 g/dL (12.0-16.0); MEAN CELL VOLUME 92.5 fL (80-100); MEAN CORPUSCULAR HEMOGLOBIN 29.2 pg (25-34); MEAN CORPUSCULAR HGB CONC 31.6 g/dl (32-36); MEAN PLATELET VOLUME 10.6 fL (7.4-10.4); PLATELET COUNT 210 K/uL (130-400); RED CELL DISTRIBUTION WIDTH CV 15.3 % (11.5-14.5); WHITE BLOOD COUNT 6.62 K/uL (4.8-10.8)
--- NOTE | 2017-04-13 07:15 | DIAGNOSTIC IMAGING REPORT ---
LEFT KNEE 4 VIEWS HISTORY: Left knee pain fall, pain COMPARISON: None. FINDINGS: Transverse distracted fracture within the patella. This demonstrates up to 5 mm of distraction. Moderate knee effusion. Anterior soft tissue swelling. Moderate to severe tricompartmental osteoarthritis. No radiopaque foreign bodies. IMPRESSION: Transverse distracted fracture within the patella. Electronically signed by: Aron Mcelroy M.D. 04/13/2017 7:14 AM Dictated Date/Time: 04/13/2017 7:12 AM
[2017-04-13 07:30] LABS: CALCIUM 8.4 mg/dl (8.5-10.1); CREATININE 0.56 mg/dl (0.60-1.20)
--- NOTE | 2017-04-13 07:34 | DIAGNOSTIC IMAGING REPORT ---
(CHEST) THORAX WITHOUT CT DOSE: 1672.53 mGy.cm HISTORY: fall, right chest pain, on Xarelto TECHNIQUE: Multiaxial CT images of the chest were performed without contrast. A dose lowering technique was utilized adhering to the principles of ALARA. COMPARISON: Chest CT 08/25/2013. FINDINGS: The intermediate density ill-defined soft tissue within the right axilla/upper lateral chest. This consistent with a hematoma. This partially surrounds the axillary vessels. There is a right PICC which terminates in the distal SVC. The heart is enlarged. No pleural or pericardial effusions. No mediastinal or hilar lymphadenopathy. The visualized liver, spleen, adrenal glands are unremarkable. Small distracted fracture at the greater tuberosity the right humeral head. No dislocation. There are right anterior fifth through seventh nondisplaced rib fractures. No pneumothorax. There is motion artifact within the lungs. No focal lung consolidations to suggest pneumonia. IMPRESSION: 1. Small distracted fracture at the greater tuberosity of the right humeral head. No dislocation. 2. Nondisplaced right anterior fifth through seventh rib fractures. No pneumothorax. 3. Intermediate density ill-defined soft tissue within the right axilla/upper lateral chest consistent with a hematoma. 4. These findings were called/faxed to the emergency Department following dictation given the discrepant findings from the overnight reading. Electronically signed by: Aron Mcelroy M.D. 04/13/2017 7:33 AM Dictated Date/Time: 04/13/2017 7:23 AM
[2017-04-13 07:48] VITALS: BP 115/77; PULSE 98; TEMP 36.6; O2SAT 93
[2017-04-13] MEDS: AMIODARONE 200 MG TAB PO SCH ×2 (08:07→20:29)
[2017-04-13] MEDS: CETIRIZINE HCL 10 MG TAB PO SCH (08:07)
[2017-04-13] MEDS: LISINOPRIL 5 MG TAB PO SCH (08:07)
[2017-04-13] MEDS: METOPROLOL SUCC 50MG EXT REL TAB PO SCH (08:08)
[2017-04-13] MEDS: MAGNESIUM OXIDE 400 MG TAB PO SCH ×2 (08:08→20:29)
[2017-04-13] MEDS: CYANOCOBALAMIN 500 MCG TAB (VIT B-12) PO SCH (08:08)
[2017-04-13] MEDS: MONTELUKAST SOD 10 MG TAB PO SCH (08:08)
[2017-04-13] MEDS: BuPROPion SR 150 MG TABCR PO SCH (08:08)
[2017-04-13] MEDS: FLUTICASONE/SALMETEROL 250/50 (ADVAIR) 14 PUFF/1 INHALER INH SCH ×2 (08:11→20:30)
[2017-04-13] MEDS: OXYCODONE/ACETAMINOPHEN 7.5-325 TAB PO PRN ×3 (11:41→23:26)
[2017-04-13 11:54] VITALS: BP 111/78; PULSE 98; TEMP 36.6; O2SAT 92
--- NOTE | 2017-04-13 12:47 | CONSULTATION REPORT ---
DATE OF CONSULTATION: 04/13/2017 CHIEF COMPLAINT: Left knee pain for her orthopedic issues. HISTORY OF PRESENT ILLNESS: Chely is delightful, she is 56, ongoing left knee pain post-trauma. She had a fall a few days ago, reinjured it a couple nights ago, presented to the Emergency Room with right shoulder pain, left knee pain and a fall. PAST MEDICAL HISTORY: Positive for diabetes mellitus, morbid obesity, and osteomyelitis of the toe. PAST SURGICAL HISTORY: Osteomyelitis of the toe debridement ____ infection of the right knee, and asthma. FAMILY HISTORY: Diabetes, cancer, heart disease. SOCIAL HISTORY: Nonsmoker, no alcohol use, no drug use. Single, employed. ALLERGIES: PENICILLIN. MEDICATIONS: Listed. REVIEW OF SYSTEMS: Denies any fever, sweats, chills. Ear, nose and throat denied. Denies shortness of breath, cough. Denies chest pain, no nausea, vomiting, urgency, frequency. No depression. ____ OBJECTIVE: VITAL SIGNS: Blood pressure 148/100, pulse 100, respiratory rate 20. GENERAL APPEARANCE: She is in no distress. She is alert. She is pleasant and communicates perfectly HEENT: Normocephalic. Normal. CHEST: Lungs clear. Normal breath sounds. CARDIAC: Regular rate rhythm. EXTREMITIES: I took off her knee brace for support. She does have pain, swelling, but no breakage of skin referable to the knee. Pain is consistent with the patellar fracture. She also has various amputations of her toes. LABORATORY DATA: White cell count 6.2, hemoglobin 11.3. ASSESSMENT: Delightful patient, 56 years of age, compromised with significant arthritis, now with diabetes mellitus, gout, obesity, periods of myelitis in the past, now with a patellar fracture, hematoma. DISPOSITION: At this point in time, surgery is not urgent and we will not be doing the surgery today, the 13 of April. She has requested Dr. Guzman, seen Dr. Guzman the past. I will allow him to take over the care of her case, if this truly comes to be a surgical problem. Right now, we will feed her, will keep her n.p.o. after midnight, I will be speaking with Dr. Guzman as her overall disposition and will try to get physical therapy involved. She is to stick with the knee brace and ice to the knee.
--- NOTE | 2017-04-13 14:30 | Family Medicine Progress Note ---
Progress Note Date of Service Apr 13, 2017. Subjective Pt evaluation today including: conversation w/ patient, physical exam, chart review, lab review, review of studies, review of inpatient medication list Pain: Patient reports pain in her right shoulder and left knee PO Intake: NPO from midnight, diet today and will be NPO from midnight tonight Voiding: medel catheter in place Patient is very anxious about her situation. She is concerned about losing her limbs if infection sets in, as she has already lost a few toes and currently has osteomyelitis of big toe. She states her right knee replacement is also infected. She states she is having difficulty lifting her right arm since she fell as well. Constitutional: No fever, No chills, No sweats, No weight loss, No weakness , No fatigue, No problem reported Respiratory: No cough, No sputum, No wheezing, No shortness of breath, No dyspnea on exertion, No dyspnea at rest, No hemoptysis, No problem reported Cardiovascular: No chest pain, No orthopnea, No PND, No edema, No claudication, No palpitations, No problem reported Abdomen: No pain, No nausea, No vomiting, No diarrhea, No constipation, No GI bleeding, No problem reported Musculoskeletal: + joint pain, + muscle pain, + swelling Neurologic: + weakness, + balance problems Psychiatric: + depression symptoms, + anxiety All Other Systems: Reviewed and Negative Medications Current Inpatient Medications Medications (Trade) Dose Ordered Sig/Flash Route Start Time Stop Time Status Last Admin Dose Admin Amiodarone HCl (Cordarone Tab) 200 mg BID PO 04/13/17 09:00 05/13/17 08:59 04/13/17 08:07 200 MG Atorvastatin Calcium (Lipitor Tab) 40 mg QPM PO 04/13/17 21:00 05/13/17 20:59 Bupropion HCl (Wellbutrin-Sr Tab) 150 mg DAILY PO 04/13/17 09:00 05/13/17 08:59 04/13/17 08:08 150 MG Cetirizine HCl (zyrTEC TAB) 10 mg DAILY PO 04/13/17 09:00 05/13/17 08:59 04/13/17 08:07 10 MG Cyanocobalamin (Vitamin B-12 Tab) 1,000 mcg DAILY PO 04/13/17 09:00 05/13/17 08:59 04/13/17 08:08 1,000 MCG Escitalopram Oxalate (Lexapro Tab) 10 mg HS PO 04/13/17 21:00 05/13/17 20:59 Salmeterol Xinafoate/ Fluticasone (Advair Diskus 250/50 Inh) 1 puff BID INH 04/13/17 09:00 05/13/17 08:59 04/13/17 08:11 1 PUFF Lisinopril (Zestril Tab) 5 mg QPM PO 04/13/17 21:00 05/13/17 20:59 04/13/17 08:07 5 MG Lorazepam (Ativan Tab) 0.5 mg BID PRN PO 04/13/17 01:45 05/13/17 01:44 Magnesium Oxide (Mag-Ox Tab) 400 mg BID PO 04/13/17 09:00 05/13/17 08:59 04/13/17 08:08 400 MG Metoprolol Succinate (Toprol Xl Tab) 200 mg DAILY PO 04/13/17 09:00 05/13/17 08:59 04/13/17 08:08 200 MG Montelukast Sodium (Singulair Tab) 10 mg DAILY PO 04/13/17 09:00 05/13/17 08:59 04/13/17 08:08 10 MG Albuterol (Proair Hfa) 2 puffs Q4H PRN INH 04/13/17 01:45 05/13/17 01:44 Hydromorphone HCl (Dilaudid Inj) 0.5 mg Q3H PRN IV 04/13/17 01:45 04/27/17 01:44 04/13/17 03:39 0.5 MG Oxycodone/ Acetaminophen (Percocet 7.5-325MG Tab) 1 tab Q4H PRN PO 04/13/17 01:45 04/27/17 01:44 04/13/17 11:41 1 TAB Acetaminophen (Tylenol Tab) 650 mg Q4H PRN PO 04/13/17 01:45 05/13/17 01:44 Al Hydrox/Mg Hydrox/Simethicone (Maalox Max Susp) 15 ml Q4H PRN PO 04/13/17 01:45 05/13/17 01:44 Magnesium Hydroxide (Milk Of Magnesia Susp) 30 ml Q12H PRN PO 04/13/17 01:45 05/13/17 01:44 Ondansetron HCl (Zofran Inj) 4 mg Q6H PRN IV 04/13/17 01:45 05/13/17 01:44 04/13/17 03:38 4 MG Polyethylene (Miralax Powder Packet) 17 gm DAILY PRN PO 04/13/17 01:45 05/13/17 01:44 Daptomycin 720 mg/ Syringe 14.4 ml @ 7.2 mls/min DAILY@1600 IV 04/13/17 16:00 05/25/17 15:59 Objective Vital Signs Date Time Temp Pulse Resp B/P (MAP) Pulse Ox O2 Delivery O2 Flow Rate FiO2 04/13/17 12:00 Room Air 04/13/17 11:54 36.6 98 18 111/78 (89) 92 04/13/17 08:00 Nasal Cannula 2.0 04/13/17 07:48 36.6 98 20 115/77 (90) 93 1.0 04/13/17 02:48 36.7 101 20 149/96 96 Nasal Cannula 2.0 04/13/17 01:45 102 04/13/17 01:41 86 04/13/17 01:37 102 20 155/101 98 Nasal Cannula 2.0 04/13/17 00:55 102 20 148/101 92 Room Air 04/13/17 00:08 103 20 141/99 93 Room Air 04/12/17 23:35 102 22 133/107 94 Room Air 04/12/17 22:53 94 Room Air 04/12/17 22:53 94 Room Air 04/12/17 22:42 99 04/12/17 22:30 36.7 99 18 160/120 95 Room Air Physical Exam General Appearance: WD/WN, + obese Eyes: normal inspection, PERRL, EOMI, sclerae normal ENT: normal ENT inspection, hearing grossly normal, pharynx normal Neck: supple, no adenopathy, no JVD Respiratory/Chest: chest non-tender, lungs clear, normal breath sounds, no respiratory distress, no accessory muscle use Cardiovascular: regular rate, rhythm, no gallop, no JVD, no murmur Abdomen: normal bowel sounds, non tender, soft, no organomegaly Extremities: + pedal edema, + pertinent finding (neurovascular supply intact. Patient states she cannot lift her right arm. Left knee is in immobilizer. Patient is missing 5th right toe, and is missing 3rd left toe. Shoulder exam: normal sensorium, decreased external rotation, normal internal rotation. pain along deltoid insertion. strength 4/5. diminished ROM of right shoulder. 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, no motor/sensory deficits, alert, normal mood/affect, oriented x 3 Laboratory Results 04/13/17 06:15 04/13/17 06:15 Test 04/12/17 23:01 04/12/17 23:30 04/13/17 06:15 04/13/17 11:44 Immature Granulocyte % (Auto) 0.3 % White Blood Count 6.62 K/uL (4.8-10.8) Red Blood Count 3.79 M/uL (4.2-5.4) 3.59 M/uL (4.2-5.4) Hemoglobin 11.3 g/dL (12.0-16.0) Hematocrit 34.7 % (37-47) Mean Corpuscular Volume 91.6 fL (80-100) 92.5 fL (80-100) Mean Corpuscular Hemoglobin 29.8 pg (25-34) 29.2 pg (25-34) Mean Corpuscular Hemoglobin Concent 32.6 g/dl (32-36) 31.6 g/dl (32-36) Platelet Count 223 K/uL (130-400) Mean Platelet Volume 10.5 fL (7.4-10.4) 10.6 fL (7.4-10.4) Neutrophils (%) (Auto) 60.3 % Lymphocytes (%) (Auto) 27.3 % Monocytes (%) (Auto) 8.3 % Eosinophils (%) (Auto) 3.2 % Basophils (%) (Auto) 0.6 % Neutrophils # (Auto) 3.99 K/uL (1.4-6.5) Lymphocytes # (Auto) 1.81 K/uL (1.2-3.4) Monocytes # (Auto) 0.55 K/uL (0.11-0.59) Eosinophils # (Auto) 0.21 K/uL (0-0.5) Basophils # (Auto) 0.04 K/uL (0-0.2) Immature Granulocyte # (Auto) 0.02 K/uL (0.00-0.02) Total Bilirubin 0.5 mg/dl (0.2-1) Direct Bilirubin 0.2 mg/dl (0-0.2) Aspartate Amino Transf (AST/SGOT) 39 U/L (15-37) Alanine Aminotransferase (ALT/SGPT) 39 U/L (12-78) Alkaline Phosphatase 125 U/L (45-117) Total Creatine Kinase 93 U/L (26-192) Troponin I < 0.015 ng/ml (0-0.045) Total Protein 7.3 gm/dl (6.4-8.2) Albumin 3.9 gm/dl (3.4-5.0) Thyroid Stimulating Hormone (TSH) 17.300 uIu/ml (0.300-4.500) Urine Color YELLOW Urine Appearance CLEAR (CLEAR) Urine pH 5.5 (4.5-7.5) Urine Specific [place] 1.011 (1.000-1.030) Urine Protein NEG (NEG) Urine Glucose (UA) NEG (NEG) Urine Ketones NEG (NEG) Urine Occult Blood NEG (NEG) Urine Nitrite NEG (NEG) Urine Bilirubin NEG (NEG) Urine Urobilinogen NEG (NEG) Urine Leukocyte Esterase TRACE (NEG) Urine WBC (Auto) 1-5 /hpf (0-5) Urine RBC (Auto) 0-4 /hpf (0-4) Urine Hyaline Casts (Auto) 1-5 /lpf (0-5) Urine Epithelial Cells (Auto) 10-20 /lpf (0-5) Urine Bacteria (Auto) NEG (NEG) RDW Standard Deviation 51.0 fL (36.4-46.3) RDW Coefficient of Variation 15.3 % (11.5-14.5) Anion Gap 8.0 mmol/L (3-11) Est Creatinine Clear Calc Drug Dose 139.0 ml/min Estimated GFR () 122.5 Estimated GFR (Non- 105.7 BUN/Creatinine Ratio 22.4 (10-20) Calcium Level 8.4 mg/dl (8.5-10.1) Magnesium Level 1.7 mg/dl (1.8-2.4) Bedside Glucose 96 mg/dl (70-90) Test 04/13/17 11:58 Free Thyroxine 0.68 ng/dl (0.80-1.60) Assessment and Plan 56 y/o F admitted for fall after feeling lightheaded after feeding her cat while bending over with no LOC, CP, palpitations, SOB, n/v, or diaphoresis prior to her fall. She fell forward onto her left knee, hit her head on a cupboard, and fell onto her right side. Patellar fracture and prepatellar and suprapatellar hematoma and joint effusion - holding Xarelto. -Ortho consulted, will not require surgery today. Patient has requested Dr. Guzman and he will be involved beginning tomorrow. -Will likely need rehab on discharge. Shoulder pain: -Partial subluxation of right shoulder -ortho consulted Fall - ? presyncope with ambulatory dysfunction Hypomagnesemia and Hypokalemia - likely sec to HCTZ use - has not complied with supplements; replaced in ED -Mag on admission: 1.1, today: 1.7 -K on admission: 3.0, today 4.0 -Trend BMP/Mag -Repeat EKG when electrolytes normalize -Consider increase in outpatient PO doses on DC -Consider dyazide on DC instead of HCTZ. EKG changes - no additional evidence of ACS - we will repeat following electrolyte replacement as it is currently suspected that the changes are due to her deficiencies - will recheck a trop as well. 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 cont Dapto daily TSH elevated -Checked Free T4 which was depressed at 0.64 -TSH on admission 17.3. Normal thyroid hormones as of October DM - placed on ISS Asthma - cont prescribed inhalers PAF - rhythm is sinus on admission - cont Amiodarone, Metoprolol - Xarelto held owing to hematoma Code: Full DVTP: held 05/08 hematoma Dispo: Tele Resident Tracking Resident Involvement: Resident Care Provided Care Provided: Adult Hospital Medicine Reviewed: Pt Seen/Exam by Me History c/o lot of pain in right shoulder. unable to move it. Constitutional: denies: fever Respiratory: negative: short of breath Cardiovascular: denies chest pain General Appearance: mild distress Respiratory: lungs clear, no respiratory distress Cardiovascular: regular rate, rhythm Extremities: other (left knee in brace) Neurologic/Psychiatric: alert, oriented x 3 Assessment/Plan Resident Physician Supervision Note: I independently interviewed and examined the patient and verified the vega history and physical, reviewed labs and image studies, discussed the case with the resident Dr. Burnette and agree with the findings and care plan.
[2017-04-13 15:10] VITALS: BP 107/76; PULSE 84; TEMP 36.6; O2SAT 91
[2017-04-13] MEDS: DAPTOMYCIN IV SCH (15:36)
[2017-04-13 19:03] VITALS: BP 107/75; PULSE 97; TEMP 36.7; O2SAT 90
[2017-04-13] MEDS: LORAZEPAM 0.5 MG TAB PO PRN (20:28)
[2017-04-13] MEDS: ESCITALOPRAM OXALATE 10 MG TAB PO SCH (20:29)
[2017-04-13] MEDS: ATORVASTATIN 40 MG TAB PO SCH (20:29)
--- NOTE | 2017-04-13 22:03 | DIAGNOSTIC IMAGING REPORT ---
RIGHT SHOULDER 3 VIEWS CLINICAL HISTORY: Fall with right shoulder pain. FINDINGS: 3 views of the right shoulder are compared to study dated 04/12/2017. The skeletal structures are osteopenic. There is an avulsion fracture arising from the posterior aspect of the humeral head. The fracture is distracted in the subacromial space. No additional fracture is seen. No dislocation is identified. Productive degenerative changes noted the chronic clavicular joint. Mild overlying soft tissue edema is observed. The visualized right lung parenchyma appears clear. A right PICC line is in place. IMPRESSION: There is an avulsion fracture with a distracted fragment seen arising from the posterior aspect of the humeral head. Electronically signed by: Mitch Stone M.D. 04/13/2017 10:02 PM Dictated Date/Time: 04/13/2017 10:00 PM
--- NOTE | 2017-04-13 22:38 | Anesthesiology Progress Note ---
Anesthesia Progress Note Date of Service Apr 13, 2017. Progress Notes 56 yo female s/p fall on 04/12/2017 with left patella fracture scheduled for possible procedure in the operating room on 04/14/[address] Guzman. Per the patient, Dr. Guzman will be evaluating her in the morning to determine whether she will have surgery and what surgery will be performed. Pts PMH is significant for morbid obesity, paroxysmal afib, HTN, HLD, VALERIE with 2 LPM NC at night, type II DM with peripheral neuropathy, OA, anxiety and depression. Patient had MAC in 10/2016 without complications and denies either a personal or family history of anesthetic complications. The patient had an EKG done 04/12/17 that raised concerns for ST changes, but two troponin values have been less than 0.015. Patient denies any cardiac symptoms and the most recent EKG looks unchanged from prior studies. The primary team is actively replacing the patient's hypomagnesemia and hypokalemia. In addition, the patient had a type and screen performed earlier today. On exam, the patient had a RRR without M/R/ G and lungs were CTAB. The patient had a mallampati 2 with full neck extension , but shorted thyromental distance and a short, thick, neck. I briefly discussed possible anesthetic plans with the patient, but opted to wait for signed consent since the patient was uncertain about what the surgical plans were for tomorrow. The patient was instructed to remain NPO after midnight tonight for possible surgery. Please hold the patient's scheduled dose of lisinopril tomorrow morning, but otherwise patient should take her medications as scheduled with a sip of water. Please contact anesthesia with any questions or concerns. Meagan Lu MD, PhD Anesthesiology
[2017-04-13 23:20] VITALS: BP 105/72; PULSE 96; TEMP 36.6; O2SAT 95
[2017-04-14 03:30] VITALS: BP 103/70; PULSE 77; TEMP 36.8; O2SAT 95
[2017-04-14] MEDS: OXYCODONE/ACETAMINOPHEN 7.5-325 TAB PO PRN ×4 (05:41→23:50)
[2017-04-14] MEDS: FLUTICASONE/SALMETEROL 250/50 (ADVAIR) 14 PUFF/1 INHALER INH SCH ×2 (07:44→19:36)
[2017-04-14] MEDS: LISINOPRIL 5 MG TAB PO SCH ×2 (07:45→21:00)
[2017-04-14] MEDS: AMIODARONE 200 MG TAB PO SCH ×2 (07:45→19:34)
[2017-04-14] MEDS: CYANOCOBALAMIN 500 MCG TAB (VIT B-12) PO SCH (07:45)
[2017-04-14] MEDS: MAGNESIUM OXIDE 400 MG TAB PO SCH ×2 (07:45→19:35)
[2017-04-14] MEDS: ESCITALOPRAM OXALATE 10 MG TAB PO SCH (07:45)
[2017-04-14] MEDS: MONTELUKAST SOD 10 MG TAB PO SCH (07:46)
[2017-04-14] MEDS: CETIRIZINE HCL 10 MG TAB PO SCH (07:46)
[2017-04-14] MEDS: BuPROPion SR 150 MG TABCR PO SCH (07:46)
[2017-04-14] MEDS: METOPROLOL SUCC 50MG EXT REL TAB PO SCH (07:46)
[2017-04-14 07:55] VITALS: BP 115/84; PULSE 94; TEMP 36.4; O2SAT 95
[2017-04-14 09:14] LABS: ALBUMIN 3.2 gm/dl (3.4-5.0); CALCIUM 8.6 mg/dl (8.5-10.1); CREATININE 0.63 mg/dl (0.60-1.20); POTASSIUM 4.2 mmol/L (3.5-5.1)
[2017-04-14 09:16] LABS: TOTAL PROTEIN 6.5 gm/dl (6.4-8.2)
--- NOTE | 2017-04-14 11:53 | ORTHOPEDIC CONSULTATION ---
DATE OF CONSULTATION: 04/14/2017 SUBJECTIVE: This 56-year-old female admitted status post a fall with a left patellar fracture and a right shoulder injury as well as rib injuries. She also has some electrolyte abnormalities on admission. She has been admitted to the PCU and electrolyte abnormalities had been corrected. We have been consulted for her knee and shoulder. She denies any other injuries. No preexisting shoulder problems. She does have a chronic history of a chronically infected right knee replacement done by Dr. Greene in the past and had some toes amputated for chronic osteomyelitis. She is currently undergoing treatment for osteomyelitis of the left great toe. 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 OBJECTIVE: VITAL SIGNS: Temperature is 36.4. Vital signs stable. GENERAL: Physical examination reveals a pleasant middle-aged female. She looks older than her stated age. EXTREMITIES: Examination of the left leg reveals a knee immobilizer to be in place. The knee immobilizer of her leg was pretty well aligned. She got significant bony hypertrophy due to arthritis. Skin is intact. She can dorsiflex and plantarflex her foot appropriately. She is missing her third toe from previous amputation. Fairly minimal knee joint effusion. I can get her to do a straight leg raise with some effort. There is no palpable defect in her patella. Range of motion was not assessed. There is no varus or valgus instability. SHOULDER: Examination of her right shoulder reveals limited active motion due to pain. Her shoulder joint appears located. She can flex and extend her elbow and wrist appropriately. X-RAYS: X-rays of the left knee were reviewed as well as a CT scan. They show a slightly displaced and slightly comminuted patellar fracture. About 5 mm of separation of the anterior surface. The posterior surface has some bony contact. She got severe arthritis. X-rays of the right shoulder reveal a displaced greater tuberosity fracture. It is fairly small fragment. ASSESSMENT: A 56-year-old female with multiple comorbidities including diabetes, intermittent paroxysmal atrial fibrillation on blood thinner and multiple infections with, 1. Left slightly displaced patella fracture with a functional extensor mechanism. 2. Right displaced greater tuberosity fracture. PLAN: Concerning this patient's multiple comorbidities and a history of infection including recurrent infection and chronic infection of the right knee, I think that her left knee is best treated nonoperatively. Her extensor mechanism appears intact and it should heal and do reasonably well. I think the risks of surgery outweigh the benefits. With respect to her shoulder, we treat this conservatively as well with a sling. She will need to wear the sling for 4-6 weeks. We will start her on therapy and let her eat today. She can resume her anticoagulation. I will need to see her back in about 3-4 weeks for repeat clinical exam. She needs to wear the knee immobilizer at all times except for bathing. No knee range of motion. She can weightbear as tolerated in the knee immobilizer. Any orthopedic questions can be directed to me at [phone].
[2017-04-14 12:02] VITALS: BP 123/91; PULSE 88; TEMP 36.8; O2SAT 98
[2017-04-14] MEDS: DAPTOMYCIN IV SCH (15:32)
[2017-04-14 15:39] VITALS: BP 102/73; PULSE 99; TEMP 36.4; O2SAT 91
[2017-04-14] MEDS ORDERED: RIVAROXABAN 20 MG TAB PO ONE (17:00)
[2017-04-14 18:48] VITALS: BP 92/65; PULSE 74; TEMP 36.7; O2SAT 94
[2017-04-14] MEDS: ATORVASTATIN 40 MG TAB PO SCH (19:34)
--- NOTE | 2017-04-14 19:49 | Family Medicine Progress Note ---
Progress Note Date of Service Apr 14, 2017. Subjective Pt evaluation today including: conversation w/ patient, physical exam, chart review, lab review, review of studies Pain: Patient still reports shoulder and leg pain PO Intake: tolerating well Voiding: medel catheter in place Patient reports continued pain in right shoulder and left knee, but states it is better than yesterday and is well controlled with pain medications. she reports anxiety about possibly having surgery. Constitutional: No fever, No chills, No sweats, No weight loss, No weakness , No fatigue, No problem reported Respiratory: No cough, No sputum, No wheezing, No shortness of breath, No dyspnea on exertion, No dyspnea at rest, No hemoptysis, No problem reported Abdomen: No pain, No nausea, No vomiting, No diarrhea, No constipation, No GI bleeding, No problem reported Musculoskeletal: + joint pain, + muscle pain, + swelling Medications Current Inpatient Medications Medications (Trade) Dose Ordered Sig/Flash Route Start Time Stop Time Status Last Admin Dose Admin Amiodarone HCl (Cordarone Tab) 200 mg BID PO 04/13/17 09:00 05/13/17 08:59 04/14/17 07:45 200 MG Atorvastatin Calcium (Lipitor Tab) 40 mg QPM PO 04/13/17 21:00 05/13/17 20:59 04/13/17 20:29 40 MG Bupropion HCl (Wellbutrin-Sr Tab) 150 mg DAILY PO 04/13/17 09:00 05/13/17 08:59 04/14/17 07:46 150 MG Cetirizine HCl (zyrTEC TAB) 10 mg DAILY PO 04/13/17 09:00 05/13/17 08:59 04/14/17 07:46 10 MG Cyanocobalamin (Vitamin B-12 Tab) 1,000 mcg DAILY PO 04/13/17 09:00 05/13/17 08:59 04/14/17 07:45 1,000 MCG Escitalopram Oxalate (Lexapro Tab) 10 mg HS PO 04/13/17 21:00 05/13/17 20:59 04/14/17 07:45 10 MG Salmeterol Xinafoate/ Fluticasone (Advair Diskus 250/50 Inh) 1 puff BID INH 04/13/17 09:00 05/13/17 08:59 04/14/17 07:44 1 PUFF Lisinopril (Zestril Tab) 5 mg QPM PO 04/13/17 21:00 05/13/17 20:59 04/13/17 08:07 5 MG Lorazepam (Ativan Tab) 0.5 mg BID PRN PO 04/13/17 01:45 05/13/17 01:44 04/13/17 20:28 0.5 MG Magnesium Oxide (Mag-Ox Tab) 400 mg BID PO 04/13/17 09:00 05/13/17 08:59 04/14/17 07:45 400 MG Metoprolol Succinate (Toprol Xl Tab) 200 mg DAILY PO 04/13/17 09:00 05/13/17 08:59 04/14/17 07:46 200 MG Montelukast Sodium (Singulair Tab) 10 mg DAILY PO 04/13/17 09:00 05/13/17 08:59 04/14/17 07:46 10 MG Albuterol (Proair Hfa) 2 puffs Q4H PRN INH 04/13/17 01:45 05/13/17 01:44 Hydromorphone HCl (Dilaudid Inj) 0.5 mg Q3H PRN IV 04/13/17 01:45 04/27/17 01:44 04/13/17 03:39 0.5 MG Oxycodone/ Acetaminophen (Percocet 7.5-325MG Tab) 1 tab Q4H PRN PO 04/13/17 01:45 04/27/17 01:44 04/14/17 14:25 1 TAB Acetaminophen (Tylenol Tab) 650 mg Q4H PRN PO 04/13/17 01:45 05/13/17 01:44 Al Hydrox/Mg Hydrox/Simethicone (Maalox Max Susp) 15 ml Q4H PRN PO 04/13/17 01:45 05/13/17 01:44 Magnesium Hydroxide (Milk Of Magnesia Susp) 30 ml Q12H PRN PO 04/13/17 01:45 05/13/17 01:44 Ondansetron HCl (Zofran Inj) 4 mg Q6H PRN IV 04/13/17 01:45 05/13/17 01:44 04/13/17 03:38 4 MG Polyethylene (Miralax Powder Packet) 17 gm DAILY PRN PO 04/13/17 01:45 05/13/17 01:44 Daptomycin 720 mg/ Syringe 14.4 ml @ 7.2 mls/min DAILY@1600 IV 04/13/17 16:00 05/25/17 15:59 04/14/17 15:32 7.2 MLS/MIN Heparin Sodium (Porcine) (Heparin 10 Unit/ ml 5 ml Flush) 5 ml PRN PRN FLUSH 04/14/17 03:00 05/14/17 02:59 Rivaroxaban (Xarelto Tab) 20 mg QDD PO 04/15/17 16:45 05/15/17 16:44 Objective Vital Signs Date Time Temp Pulse Resp B/P (MAP) Pulse Ox O2 Delivery O2 Flow Rate FiO2 04/14/17 18:48 36.7 74 20 92/65 (74) 94 Nasal Cannula 2.0 04/14/17 16:00 Room Air 04/14/17 15:39 36.4 99 19 102/73 (83) 91 Nasal Cannula 1.0 04/14/17 12:02 36.8 88 16 123/91 (102) 98 04/14/17 12:00 Room Air 04/14/17 08:00 Room Air 04/14/17 07:55 36.4 94 18 115/84 (94) 95 04/14/17 03:38 Room Air 04/14/17 03:30 36.8 77 22 103/70 (81) 95 Room Air 04/13/17 23:30 Room Air 04/13/17 23:20 36.6 96 20 105/72 (83) 95 Nasal Cannula 2.0 04/13/17 20:30 Room Air Physical Exam General Appearance: WD/WN, no apparent distress Eyes: normal inspection, PERRL, EOMI ENT: normal ENT inspection, hearing grossly normal, pharynx normal Neck: supple, no adenopathy Respiratory/Chest: chest non-tender, lungs clear, normal breath sounds, no respiratory distress, no accessory muscle use Cardiovascular: regular rate, rhythm, no edema, no gallop, no JVD, no murmur Abdomen: normal bowel sounds, non tender, soft, no organomegaly, no pulsatile mass Extremities: + swelling, + pertinent finding (Right shoulder in sling; left knee immobilized ) Neurologic/Psychiatric: rd scientist II-XII nml as tested, no motor/sensory deficits, alert, normal mood/affect, oriented x 3 Laboratory Results Last Resulted 04/13/17 06:15 Last Resulted 04/14/17 07:39 Assessment and Plan 56 y/o F admitted for fall after feeling lightheaded after feeding her cat while bending over with no LOC, CP, palpitations, SOB, n/v, or diaphoresis prior to her fall. She fell forward onto her left knee, hit her head on a cupboard, and fell onto her right side. Patellar fracture and prepatellar and suprapatellar hematoma and joint effusion -Resumed Xarelto today after surgical decision to not operate -PT/OT eval. Will need rehab. Shoulder pain: -Partial subluxation and evulsion fracture of right shoulder -evaluated by ortho. -in sling at the moment. address at rehab. Fall - ? presyncope with ambulatory dysfunction Hypomagnesemia and Hypokalemia - likely sec to HCTZ use - has not complied with supplements; replaced in ED -Mag on admission: 1.1, today: 1.7 -K on admission: 3.0, today 4.0 -Trend BMP/Mag -Repeat EKG when electrolytes normalize -Consider increase in outpatient PO doses on DC -Consider dyazide on DC instead of HCTZ. Hypoxia -? sec to splinting due to posture and right shoulder pain. follow on discharge. EKG changes - no additional evidence of ACS - we will repeat following electrolyte replacement as it is currently suspected that the changes are due to her deficiencies - will recheck a trop as well. 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 cont Dapto daily TSH elevated -Checked Free T4 which was depressed at 0.64 -TSH on admission 17.3. Normal thyroid hormones as of October DM - placed on ISS Asthma - cont prescribed inhalers PAF - rhythm is sinus on admission, goes in and out of afib - cont Amiodarone, Metoprolol - Xarelto restarted Code: Full DVTP: xarelto Dispo: Tele, rehab tomorrow? Resident Tracking Resident Involvement: Resident Care Provided Care Provided: Adult Hospital Medicine Reviewed: Pt Seen/Exam by Me History shoulder hurting but better with being in a sling Constitutional: denies: fever Respiratory: negative: short of breath Cardiovascular: denies chest pain General Appearance: no apparent distress Respiratory: lungs clear, no respiratory distress Cardiovascular: irregularly irregular Extremities: other (right arm in sling. left leg in brace) Neurologic/Psychiatric: alert, oriented x 3 Skin Characteristics: warm/dry Assessment/Plan Resident Physician Supervision Note: I independently interviewed and examined the patient and verified the vega history and physical, reviewed labs and image studies, discussed the case with the resident Dr. Burnette and agree with the findings and care plan.
[2017-04-14 20:00] VITALS: O2SAT 95
[2017-04-15] VITALS (8 sets, daily range): BP systolic 92–110; BP diastolic 64–78; PULSE 86–94; TEMP 36.4–37; O2SAT 94–98
[2017-04-15] MEDS: OXYCODONE/ACETAMINOPHEN 7.5-325 TAB PO PRN ×4 (04:31→21:49)
[2017-04-15 05:58] LABS: HEMATOCRIT 32.1 % (37-47); HEMOGLOBIN 9.9 g/dL (12.0-16.0); MEAN CELL VOLUME 95.3 fL (80-100); MEAN CORPUSCULAR HEMOGLOBIN 29.4 pg (25-34); MEAN CORPUSCULAR HGB CONC 30.8 g/dl (32-36); MEAN PLATELET VOLUME 10.7 fL (7.4-10.4); PLATELET COUNT 221 K/uL (130-400); RED CELL DISTRIBUTION WIDTH CV 16.1 % (11.5-14.5); RED CELL DISTRIBUTION WIDTH SD 54.9 fL (36.4-46.3); WHITE BLOOD COUNT 6.36 K/uL (4.8-10.8)
[2017-04-15 06:26] LABS: CREATININE 1.07 mg/dl (0.60-1.20); POTASSIUM 4.4 mmol/L (3.5-5.1)
[2017-04-15] MEDS: CYANOCOBALAMIN 500 MCG TAB (VIT B-12) PO SCH (08:00)
[2017-04-15] MEDS: FLUTICASONE/SALMETEROL 250/50 (ADVAIR) 14 PUFF/1 INHALER INH SCH ×2 (08:00→20:46)
[2017-04-15] MEDS: CETIRIZINE HCL 10 MG TAB PO SCH (08:01)
[2017-04-15] MEDS: AMIODARONE 200 MG TAB PO SCH ×2 (08:01→20:46)
[2017-04-15] MEDS: METOPROLOL SUCC 50MG EXT REL TAB PO SCH (08:01)
[2017-04-15] MEDS: MONTELUKAST SOD 10 MG TAB PO SCH (08:01)
[2017-04-15] MEDS: MAGNESIUM OXIDE 400 MG TAB PO SCH ×2 (08:02→20:46)
[2017-04-15] MEDS ORDERED: NURSING VERBAL MED ORDER ONE (08:45)
[2017-04-15] MEDS: LISINOPRIL 5 MG TAB PO SCH ×2 (08:46→09:00)
[2017-04-15] MEDS: BuPROPion SR 150 MG TABCR PO SCH (08:46)
[2017-04-15] MEDS ORDERED: TRIAMTERENE/HCTZ 37.5/25MG CAP PO ONE (14:30)
[2017-04-15] MEDS: DAPTOMYCIN IV SCH (16:22)
[2017-04-15] MEDS: TRIAMTERENE/HCTZ 37.5/25MG TAB PO SCH (16:22)
[2017-04-15] MEDS: RIVAROXABAN 20 MG TAB PO SCH (16:24)
[2017-04-15] MEDS: LORAZEPAM 0.5 MG TAB PO PRN (18:39)
[2017-04-15] MEDS: ESCITALOPRAM OXALATE 10 MG TAB PO SCH (20:46)
[2017-04-15] MEDS: ATORVASTATIN 40 MG TAB PO SCH (20:46)
--- NOTE | 2017-04-15 22:49 | Family Medicine Progress Note ---
Progress Note Date of Service Apr 15, 2017. Subjective Pt evaluation today including: conversation w/ patient, physical exam, chart review, lab review Pain: Continues to report pain of right shoulder/ribcage/left leg PO Intake: tolerating PO well Voiding: medel catheter in place Patient complains of bruising, right shoulder/ribcage and left leg pain. She has been having difficulty with sling on right arm related to size of sling and body habitus Constitutional: No fever, No chills, No sweats, No weight loss, No weakness , No fatigue, No problem reported Respiratory: No cough, No sputum, No wheezing, No shortness of breath, No dyspnea on exertion, No dyspnea at rest, No hemoptysis, No problem reported Cardiovascular: No chest pain, No orthopnea, No PND, No edema, No claudication, No palpitations, No problem reported Abdomen: + see HPI, No pain, No nausea, No vomiting, No diarrhea, No constipation, No GI bleeding, No problem reported Musculoskeletal: + joint pain, + muscle pain, + swelling All Other Systems: Reviewed and Negative Medications Current Inpatient Medications Medications (Trade) Dose Ordered Sig/Flash Route Start Time Stop Time Status Last Admin Dose Admin Amiodarone HCl (Cordarone Tab) 200 mg BID PO 04/13/17 09:00 05/13/17 08:59 04/15/17 20:46 200 MG Atorvastatin Calcium (Lipitor Tab) 40 mg QPM PO 04/13/17 21:00 05/13/17 20:59 04/15/17 20:46 40 MG Bupropion HCl (Wellbutrin-Sr Tab) 150 mg DAILY PO 04/13/17 09:00 05/13/17 08:59 04/15/17 08:46 150 MG Cetirizine HCl (zyrTEC TAB) 10 mg DAILY PO 04/13/17 09:00 05/13/17 08:59 04/15/17 08:01 10 MG Cyanocobalamin (Vitamin B-12 Tab) 1,000 mcg DAILY PO 04/13/17 09:00 05/13/17 08:59 04/15/17 08:00 1,000 MCG Escitalopram Oxalate (Lexapro Tab) 10 mg HS PO 04/13/17 21:00 05/13/17 20:59 04/15/17 20:46 10 MG Salmeterol Xinafoate/ Fluticasone (Advair Diskus 250/50 Inh) 1 puff BID INH 04/13/17 09:00 05/13/17 08:59 04/15/17 20:46 1 PUFF Lorazepam (Ativan Tab) 0.5 mg BID PRN PO 04/13/17 01:45 05/13/17 01:44 04/15/17 18:39 0.5 MG Magnesium Oxide (Mag-Ox Tab) 400 mg BID PO 04/13/17 09:00 05/13/17 08:59 04/15/17 20:46 400 MG Metoprolol Succinate (Toprol Xl Tab) 200 mg DAILY PO 04/13/17 09:00 05/13/17 08:59 04/15/17 08:01 200 MG Montelukast Sodium (Singulair Tab) 10 mg DAILY PO 04/13/17 09:00 05/13/17 08:59 04/15/17 08:01 10 MG Albuterol (Proair Hfa) 2 puffs Q4H PRN INH 04/13/17 01:45 05/13/17 01:44 Hydromorphone HCl (Dilaudid Inj) 0.5 mg Q3H PRN IV 04/13/17 01:45 04/27/17 01:44 04/13/17 03:39 0.5 MG Oxycodone/ Acetaminophen (Percocet 7.5-325MG Tab) 1 tab Q4H PRN PO 04/13/17 01:45 04/27/17 01:44 04/15/17 21:49 1 TAB Acetaminophen (Tylenol Tab) 650 mg Q4H PRN PO 04/13/17 01:45 05/13/17 01:44 Al Hydrox/Mg Hydrox/Simethicone (Maalox Max Susp) 15 ml Q4H PRN PO 04/13/17 01:45 05/13/17 01:44 Magnesium Hydroxide (Milk Of Magnesia Susp) 30 ml Q12H PRN PO 04/13/17 01:45 05/13/17 01:44 Ondansetron HCl (Zofran Inj) 4 mg Q6H PRN IV 04/13/17 01:45 05/13/17 01:44 04/13/17 03:38 4 MG Polyethylene (Miralax Powder Packet) 17 gm DAILY PRN PO 04/13/17 01:45 05/13/17 01:44 04/15/17 08:15 17 GM Daptomycin 720 mg/ Syringe 14.4 ml @ 7.2 mls/min DAILY@1600 IV 04/13/17 16:00 05/25/17 15:59 04/15/17 16:22 7.2 MLS/MIN Heparin Sodium (Porcine) (Heparin 10 Unit/ ml 5 ml Flush) 5 ml PRN PRN FLUSH 04/14/17 03:00 05/14/17 02:59 Rivaroxaban (Xarelto Tab) 20 mg QDD PO 04/15/17 16:45 05/15/17 16:44 04/15/17 16:24 20 MG Lisinopril (Zestril Tab) 5 mg QAM PO 04/15/17 09:00 05/15/17 08:59 Triamterene/HCTZ (Maxzide 37.5/25 Tab) 0.5 tab QAM PO 04/15/17 14:48 05/15/17 14:47 04/15/17 16:22 0.5 TAB Objective Vital Signs Date Time Temp Pulse Resp B/P (MAP) Pulse Ox O2 Delivery O2 Flow Rate FiO2 04/15/17 20:00 Nasal Cannula 2.0 04/15/17 19:46 36.4 90 18 106/72 (83) 94 Nasal Cannula 2.0 04/15/17 16:00 Nasal Cannula 2.0 04/15/17 15:57 36.7 93 18 92/66 (75) 94 Nasal Cannula 2.0 04/15/17 12:00 Nasal Cannula 2.0 04/15/17 11:43 36.9 86 16 110/68 (82) 98 04/15/17 08:00 Nasal Cannula 2.0 04/15/17 07:45 37.0 94 16 109/64 (79) 97 04/15/17 04:00 95 Nasal Cannula 2.0 04/15/17 03:26 36.7 94 18 110/78 (89) 95 Nasal Cannula 2.0 04/15/17 00:07 36.6 93 20 105/69 (81) 97 Nasal Cannula 2.0 04/15/17 00:00 95 Nasal Cannula 2.0 Physical Exam General Appearance: WD/WN, no apparent distress Eyes: normal inspection, PERRL, EOMI, sclerae normal ENT: hearing grossly normal, pharynx normal Neck: supple, no adenopathy, no JVD, no carotid bruits, trachea midline Respiratory/Chest: chest non-tender, no respiratory distress, no accessory muscle use, + crackles (bibasilar) Cardiovascular: regular rate, rhythm, no edema, no gallop, no JVD, no murmur Abdomen: normal bowel sounds, non tender, soft, no organomegaly, no pulsatile mass Extremities: no calf tenderness, + inflammation, + swelling Neurologic/Psychiatric: pricer II-XII nml as tested, no motor/sensory deficits, alert, normal mood/affect, oriented x 3 Skin: normal color, warm/dry, + rash Laboratory Results Last Resulted 04/15/17 05:41 Last Resulted 04/15/17 05:41 Assessment and Plan 56 y/o F admitted for fall after feeling lightheaded after feeding her cat while bending over with no LOC, CP, palpitations, SOB, n/v, or diaphoresis prior to her fall. She fell forward onto her left knee, hit her head on a cupboard, and fell onto her right side. Patellar fracture and prepatellar and suprapatellar hematoma and joint effusion -Resumed Xarelto -pain control with oral meds. hasn't needed any IV med -PT/OT eval. Will need rehab. Shoulder pain: -Partial subluxation and evulsion fracture of right shoulder -evaluated by ortho. -in sling at the moment. address at rehab. Fall - ? presyncope with ambulatory dysfunction Hypomagnesemia and Hypokalemia - likely sec to HCTZ use - has not complied with supplements; replaced in ED -Mag on admission: 1.1, today: 2.0 -K on admission: 3.0, today 4.4 -Trend BMP -Switch to dyazide on discharge; started with half tab today Low urine output last night sec to poor oral intake -Stress increased oral intake Hypoxia -? sec to splinting due to posture and right shoulder/ribcage pain. follow on discharge. -incentive spirometry EKG changes - no additional evidence of ACS - we will repeat following electrolyte replacement as it is currently suspected that the changes are due to her deficiencies - will recheck a trop as well. 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 cont Dapto daily; awaiting infectious disease input. TSH elevated -Checked Free T4 which was depressed at 0.64 -TSH on admission 17.3. Normal thyroid hormones as of October DM - placed on ISS Asthma - cont prescribed inhalers PAF - rhythm is sinus on admission, goes in and out of afib - cont Amiodarone, Metoprolol - Xarelto restarted Code: Full DVTP: xarelto Dispo: Tele, rehab tomorrow Resident Tracking Resident Involvement: Resident Care Provided Care Provided: Adult Hospital Medicine Reviewed: Pt Seen/Exam by Me History had decreased urine output of 150 ml overnight. had not been taking enough oral fluids sitting in chair. still with shoulder pain Constitutional: denies: fever Respiratory: negative: short of breath Cardiovascular: denies chest pain General Appearance: no apparent distress Respiratory: lungs clear, no respiratory distress Cardiovascular: irregularly irregular Neurologic/Psychiatric: alert, oriented x 3 Skin Characteristics: warm/dry Assessment/Plan Resident Physician Supervision Note: I independently interviewed and examined the patient and verified the vega history and physical, reviewed labs and image studies, discussed the case with the resident Dr. Burnette and agree with the findings and care plan.
[2017-04-16] VITALS (10 sets, daily range): BP systolic 96–115; BP diastolic 66–81; PULSE 74–95; TEMP 36.6–37; O2SAT 92–97
[2017-04-16] MEDS: OXYCODONE/ACETAMINOPHEN 7.5-325 TAB PO PRN ×4 (02:03→23:50)
[2017-04-16] MEDS ORDERED: POLYETHYLENE (MIRALAX) 17 GM PACK PO PRN (02:30)
[2017-04-16] MEDS: SENNA 8.6 MG TAB PO SCH ×2 (03:16→07:52)
[2017-04-16] MEDS: DOCUSATE SODIUM 100 MG CAP PO SCH ×3 (03:16→21:20)
[2017-04-16 06:25] LABS: CALCIUM 8.9 mg/dl (8.5-10.1); CREATININE 1.14 mg/dl (0.60-1.20); POTASSIUM 4.5 mmol/L (3.5-5.1)
[2017-04-16] MEDS: TRIAMTERENE/HCTZ 37.5/25MG TAB PO SCH (07:52)
[2017-04-16] MEDS: FLUTICASONE/SALMETEROL 250/50 (ADVAIR) 14 PUFF/1 INHALER INH SCH ×2 (07:52→21:19)
[2017-04-16] MEDS: LISINOPRIL 5 MG TAB PO SCH (07:53)
[2017-04-16] MEDS: BuPROPion SR 150 MG TABCR PO SCH (07:53)
[2017-04-16] MEDS: CETIRIZINE HCL 10 MG TAB PO SCH (07:53)
[2017-04-16] MEDS: MAGNESIUM OXIDE 400 MG TAB PO SCH ×2 (07:53→21:21)
[2017-04-16] MEDS: AMIODARONE 200 MG TAB PO SCH ×2 (07:53→21:21)
[2017-04-16] MEDS: METOPROLOL SUCC 50MG EXT REL TAB PO SCH (07:54)
[2017-04-16] MEDS: CYANOCOBALAMIN 500 MCG TAB (VIT B-12) PO SCH (07:54)
[2017-04-16] MEDS: MONTELUKAST SOD 10 MG TAB PO SCH (07:54)
[2017-04-16] MEDS ORDERED: TRIAMTERENE/HCTZ 37.5/25MG CAP PO SCH (09:00)
--- NOTE | 2017-04-16 10:54 | Medical Consult ---
Consultation Date of Consultation: Apr 16, 2017. Attending Physician: Radha Young M.D. 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 Patient suffered a mechanical fall, and was found to have left patellar fracture as well as right shoulder injury. She is currently being treated knee brace and shoulder sling, notes that left toe has been well healed without evidence of active infection. She has not had any fever or chills. She has had minimal drainage from her chronic open wound below her right knee. Apart from pain in her left knee and right shoulder, she has offering no new complaints. Currently afebrile. Past Medical/Surgical History Medical Problems: (1) Hypokalemia Status: Acute (2) Left patella fracture Status: Acute (3) Sepsis Status: Acute (4) Toe osteomyelitis, left Status: Acute (5) Weakness Status: Acute Medical Problems: (1) Abscess or cellulitis of foot (2) Anxiety (3) Asthma (4) cellulitis (5) Cellulitis of third toe, left (6) Cellulitis of third toe, left (7) Depression (8) Diabetes (9) Diabetic foot infection (10) Hypercholesteremia (11) Hypertension (12) Hypomagnesemia (13) Osteomyelitis (14) Paroxysmal a-fib (15) Patellar fracture Surgical Problems: (1) History of knee replacement procedure of right knee (2) Post-operative state Family History Diabetes mellitus FHx: cancer FHx: heart disease Hypertension Kidney disease Kidney stones Social History Smoking Status: Never Smoker Alcohol Use: occasionally Drug Use: none Marital Status: single Housing Status: lives with family Occupation Status: employed Allergies Coded Allergies: Penicillins (Verified Allergy, Unknown, UNKNOWN, 03/19/15) Current Inpatient Medications Current Inpatient Medications Medications (Trade) Dose Ordered Sig/Flash Route Start Time Stop Time Status Last Admin Dose Admin Amiodarone HCl (Cordarone Tab) 200 mg BID PO 04/13/17 09:00 05/13/17 08:59 04/16/17 07:53 200 MG Atorvastatin Calcium (Lipitor Tab) 40 mg QPM PO 04/13/17 21:00 05/13/17 20:59 04/15/17 20:46 40 MG Bupropion HCl (Wellbutrin-Sr Tab) 150 mg DAILY PO 04/13/17 09:00 05/13/17 08:59 04/16/17 07:53 150 MG Cetirizine HCl (zyrTEC TAB) 10 mg DAILY PO 04/13/17 09:00 05/13/17 08:59 04/16/17 07:53 10 MG Cyanocobalamin (Vitamin B-12 Tab) 1,000 mcg DAILY PO 04/13/17 09:00 05/13/17 08:59 04/16/17 07:54 1,000 MCG Escitalopram Oxalate (Lexapro Tab) 10 mg HS PO 04/13/17 21:00 05/13/17 20:59 04/15/17 20:46 10 MG Salmeterol Xinafoate/ Fluticasone (Advair Diskus 250/50 Inh) 1 puff BID INH 04/13/17 09:00 05/13/17 08:59 04/16/17 07:52 1 PUFF Lorazepam (Ativan Tab) 0.5 mg BID PRN PO 04/13/17 01:45 05/13/17 01:44 04/15/17 18:39 0.5 MG Magnesium Oxide (Mag-Ox Tab) 400 mg BID PO 04/13/17 09:00 05/13/17 08:59 04/16/17 07:53 400 MG Metoprolol Succinate (Toprol Xl Tab) 200 mg DAILY PO 04/13/17 09:00 05/13/17 08:59 04/16/17 07:54 200 MG Montelukast Sodium (Singulair Tab) 10 mg DAILY PO 04/13/17 09:00 05/13/17 08:59 04/16/17 07:54 10 MG Albuterol (Proair Hfa) 2 puffs Q4H PRN INH 04/13/17 01:45 05/13/17 01:44 Hydromorphone HCl (Dilaudid Inj) 0.5 mg Q3H PRN IV 04/13/17 01:45 04/27/17 01:44 04/13/17 03:39 0.5 MG Oxycodone/ Acetaminophen (Percocet 7.5-325MG Tab) 1 tab Q4H PRN PO 04/13/17 01:45 04/27/17 01:44 04/16/17 09:05 1 TAB Acetaminophen (Tylenol Tab) 650 mg Q4H PRN PO 04/13/17 01:45 05/13/17 01:44 04/16/17 00:22 650 MG Al Hydrox/Mg Hydrox/Simethicone (Maalox Max Susp) 15 ml Q4H PRN PO 04/13/17 01:45 05/13/17 01:44 Magnesium Hydroxide (Milk Of Magnesia Susp) 30 ml Q12H PRN PO 04/13/17 01:45 05/13/17 01:44 Ondansetron HCl (Zofran Inj) 4 mg Q6H PRN IV 04/13/17 01:45 05/13/17 01:44 04/13/17 03:38 4 MG Polyethylene (Miralax Powder Packet) 17 gm DAILY PRN PO 04/13/17 01:45 05/13/17 01:44 04/15/17 08:15 17 GM Daptomycin 720 mg/ Syringe 14.4 ml @ 7.2 mls/min DAILY@1600 IV 04/13/17 16:00 05/25/17 15:59 04/15/17 16:22 7.2 MLS/MIN Heparin Sodium (Porcine) (Heparin 10 Unit/ ml 5 ml Flush) 5 ml PRN PRN FLUSH 04/14/17 03:00 05/14/17 02:59 Rivaroxaban (Xarelto Tab) 20 mg QDD PO 04/15/17 16:45 05/15/17 16:44 04/15/17 16:24 20 MG Lisinopril (Zestril Tab) 5 mg QAM PO 04/15/17 09:00 05/15/17 08:59 04/16/17 07:53 5 MG Triamterene/HCTZ (Maxzide 37.5/25 Tab) 0.5 tab QAM PO 04/15/17 14:48 05/15/17 14:47 04/16/17 07:52 0.5 TAB Polyethylene (Miralax Powder Packet) 17 gm DAILY PRN PO 04/16/17 02:30 05/16/17 02:29 Docusate Sodium (coLACE CAP) 100 mg BID PO 04/16/17 02:30 05/16/17 02:29 04/16/17 07:52 100 MG Senna (Senokot Tab) 8.6 mg QAM PO 04/16/17 02:30 05/16/17 02:29 04/16/17 07:52 8.6 MG Review of Systems All systems were reviewed and are negative except as per HPI Physical Exam Date Time Temp Pulse Resp B/P (MAP) Pulse Ox O2 Delivery O2 Flow Rate FiO2 04/16/17 08:34 36.7 94 18 114/79 (91) 96 04/16/17 08:00 Nasal Cannula 2.0 04/16/17 04:00 95 Nasal Cannula 2.0 04/16/17 03:28 36.6 89 16 100/70 (80) 93 04/16/17 00:52 37.0 91 19 104/76 (85) 94 04/16/17 00:00 95 Nasal Cannula 2.0 04/15/17 20:00 Nasal Cannula 2.0 04/15/17 19:46 36.4 90 18 106/72 (83) 94 Nasal Cannula 2.0 04/15/17 16:00 Nasal Cannula 2.0 04/15/17 15:57 36.7 93 18 92/66 (75) 94 Nasal Cannula 2.0 04/15/17 12:00 Nasal Cannula 2.0 04/15/17 11:43 36.9 86 16 110/68 (82) 98 General Appearance: WD/WN, no apparent distress, + obese Head: normocephalic, atraumatic Eyes: normal inspection, EOMI, sclerae normal ENT: normal ENT inspection, pharynx normal Neck: supple, no adenopathy, thyroid normal, trachea midline Respiratory/Chest: chest non-tender, lungs clear, normal breath sounds, no respiratory distress Cardiovascular: regular rate, rhythm, no gallop, no murmur Abdomen/GI: normal bowel sounds, non tender, soft, no organomegaly Back: normal inspection, no CVA tenderness Extremities/Musculoskelatal: no calf tenderness, + pertinent finding (Left knee brace, right shoulder sling in place) Neurologic/Psych: alert, oriented x 3 Skin: normal color, warm/dry, no rash, + pertinent finding (Left great toe appears well healed, small open wound below right knee is clean without active drainage) Lymphatic: no adenopathy Laboratory Results Last 24 Hours Test 04/16/17 05:34 Sodium Level 133 mmol/L Potassium Level 4.5 mmol/L Chloride Level 97 mmol/L Carbon Dioxide Level 32 mmol/L Anion Gap 4.0 mmol/L Blood Urea Nitrogen 33 mg/dl Creatinine 1.14 mg/dl Est Creatinine Clear Calc Drug Dose 69.0 ml/min Estimated GFR () 63.1 Estimated GFR (Non- 54.5 BUN/Creatinine Ratio 29.0 Random Glucose 91 mg/dl Calcium Level 8.9 mg/dl (CHEST) THORAX WITHOUT CT DOSE: 1672.53 mGy.cm HISTORY: fall, right chest pain, on Xarelto TECHNIQUE: Multiaxial CT images of the chest were performed without contrast. A dose lowering technique was utilized adhering to the principles of ALARA. COMPARISON: Chest CT 08/25/2013. FINDINGS: The intermediate density ill-defined soft tissue within the right axilla/upper lateral chest. This consistent with a hematoma. This partially surrounds the axillary vessels. There is a right PICC which terminates in the distal SVC. The heart is enlarged. No pleural or pericardial effusions. No mediastinal or hilar lymphadenopathy. The visualized liver, spleen, adrenal glands are unremarkable. Small distracted fracture at the greater tuberosity the right humeral head. No dislocation. There are right anterior fifth through seventh nondisplaced rib fractures. No pneumothorax. There is motion artifact within the lungs. No focal lung consolidations to suggest pneumonia. IMPRESSION: 1. Small distracted fracture at the greater tuberosity of the right humeral head. No dislocation. 2. 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 Left great toe appears well healed without evidence of active infection, and patient has received very prolonged course of daptomycin and so I think that this can be discontinued at this time. She will need to be transitioned to oral Bactrim which she will take for chronic suppression of her Staph aureus infection of her right TKA. Will follow with her as outpatient. Discussed with hospitalist service. Will follow.
[2017-04-16] MEDS ORDERED: SULFAMETHOXAZOLE/TRIMETHOPRIM DS 800/160MG TAB PO ONE (11:30)
[2017-04-16] MEDS: RIVAROXABAN 20 MG TAB PO SCH ×2 (15:51→17:45)
[2017-04-16] MEDS: LORAZEPAM 0.5 MG TAB PO PRN (18:26)
--- NOTE | 2017-04-16 19:33 | Family Medicine Progress Note ---
Progress Note Date of Service Apr 16, 2017. Subjective Pt evaluation today including: conversation w/ patient, physical exam, chart review, lab review, review of inpatient medication list Pain: Pain is improving PO Intake: tolerating well Voiding: no voiding problems Continues to report some pain in the right shoulder/ribs and left leg, but improving daily. Has not needed IV pain meds. She is getting anxious about going for therapy but is ready to leave the hospital Constitutional: + see HPI, + fatigue, No fever, No chills, No sweats, No weight loss, No weakness, No problem reported Respiratory: No cough, No sputum, No wheezing, No shortness of breath, No dyspnea on exertion, No dyspnea at rest, No hemoptysis, No problem reported Cardiovascular: No chest pain, No orthopnea, No PND, No edema, No claudication, No palpitations, No problem reported Abdomen: No pain, No nausea, No vomiting, No diarrhea, No constipation, No GI bleeding, No problem reported Musculoskeletal: + joint pain, + muscle pain, + swelling, No calf pain All Other Systems: Reviewed and Negative Medications Current Inpatient Medications Medications (Trade) Dose Ordered Sig/Flash Route Start Time Stop Time Status Last Admin Dose Admin Amiodarone HCl (Cordarone Tab) 200 mg BID PO 04/13/17 09:00 05/13/17 08:59 04/16/17 07:53 200 MG Atorvastatin Calcium (Lipitor Tab) 40 mg QPM PO 04/13/17 21:00 05/13/17 20:59 04/15/17 20:46 40 MG Bupropion HCl (Wellbutrin-Sr Tab) 150 mg DAILY PO 04/13/17 09:00 05/13/17 08:59 04/16/17 07:53 150 MG Cetirizine HCl (zyrTEC TAB) 10 mg DAILY PO 04/13/17 09:00 05/13/17 08:59 04/16/17 07:53 10 MG Cyanocobalamin (Vitamin B-12 Tab) 1,000 mcg DAILY PO 04/13/17 09:00 05/13/17 08:59 04/16/17 07:54 1,000 MCG Escitalopram Oxalate (Lexapro Tab) 10 mg HS PO 04/13/17 21:00 05/13/17 20:59 04/15/17 20:46 10 MG Salmeterol Xinafoate/ Fluticasone (Advair Diskus 250/50 Inh) 1 puff BID INH 04/13/17 09:00 05/13/17 08:59 04/16/17 07:52 1 PUFF Lorazepam (Ativan Tab) 0.5 mg BID PRN PO 04/13/17 01:45 05/13/17 01:44 04/16/17 18:26 0.5 MG Magnesium Oxide (Mag-Ox Tab) 400 mg BID PO 04/13/17 09:00 05/13/17 08:59 04/16/17 07:53 400 MG Metoprolol Succinate (Toprol Xl Tab) 200 mg DAILY PO 04/13/17 09:00 05/13/17 08:59 04/16/17 07:54 200 MG Montelukast Sodium (Singulair Tab) 10 mg DAILY PO 04/13/17 09:00 05/13/17 08:59 04/16/17 07:54 10 MG Albuterol (Proair Hfa) 2 puffs Q4H PRN INH 04/13/17 01:45 05/13/17 01:44 Hydromorphone HCl (Dilaudid Inj) 0.5 mg Q3H PRN IV 04/13/17 01:45 04/27/17 01:44 04/13/17 03:39 0.5 MG Oxycodone/ Acetaminophen (Percocet 7.5-325MG Tab) 1 tab Q4H PRN PO 04/13/17 01:45 04/27/17 01:44 04/16/17 15:51 1 TAB Acetaminophen (Tylenol Tab) 650 mg Q4H PRN PO 04/13/17 01:45 05/13/17 01:44 04/16/17 00:22 650 MG Al Hydrox/Mg Hydrox/Simethicone (Maalox Max Susp) 15 ml Q4H PRN PO 04/13/17 01:45 05/13/17 01:44 Magnesium Hydroxide (Milk Of Magnesia Susp) 30 ml Q12H PRN PO 04/13/17 01:45 05/13/17 01:44 Ondansetron HCl (Zofran Inj) 4 mg Q6H PRN IV 04/13/17 01:45 2/7/18 01:44 04/13/17 03:38 4 MG Heparin Sodium (Porcine) (Heparin 10 Unit/ ml 5 ml Flush) 5 ml PRN PRN FLUSH 04/14/17 03:00 05/14/17 02:59 Rivaroxaban (Xarelto Tab) 20 mg QDD PO 04/15/17 16:45 05/15/17 16:44 04/16/17 15:51 20 MG Lisinopril (Zestril Tab) 5 mg QAM PO 04/15/17 09:00 05/15/17 08:59 04/16/17 07:53 5 MG Triamterene/HCTZ (Maxzide 37.5/25 Tab) 0.5 tab QAM PO 04/15/17 14:48 05/15/17 14:47 04/16/17 07:52 0.5 TAB Polyethylene (Miralax Powder Packet) 17 gm DAILY PRN PO 04/16/17 02:30 05/16/17 02:29 Docusate Sodium (coLACE CAP) 100 mg BID PO 04/16/17 02:30 05/16/17 02:29 04/16/17 07:52 100 MG Senna (Senokot Tab) 8.6 mg QAM PO 04/16/17 02:30 05/16/17 02:29 04/16/17 07:52 8.6 MG Trimethoprim/ Sulfamethoxazole (Septra Ds 800/ 160MG Tab) 1 tab Q12 PO 04/16/17 21:00 05/28/17 20:59 Objective Vital Signs Date Time Temp Pulse Resp B/P (MAP) Pulse Ox O2 Delivery O2 Flow Rate FiO2 04/16/17 16:30 Nasal Cannula 2.0 04/16/17 16:30 36.7 95 16 113/79 (90) 92 Nasal Cannula 2.0 04/16/17 16:25 36.8 74 18 97 2.0 04/16/17 12:00 Nasal Cannula 2.0 04/16/17 11:56 36.8 74 18 96/66 (76) 97 04/16/17 08:34 36.7 94 18 114/79 (91) 96 04/16/17 08:00 Nasal Cannula 2.0 04/16/17 04:00 95 Nasal Cannula 2.0 04/16/17 03:28 36.6 89 16 100/70 (80) 93 04/16/17 00:52 37.0 91 19 104/76 (85) 94 04/16/17 00:00 95 Nasal Cannula 2.0 04/15/17 20:00 Nasal Cannula 2.0 04/15/17 19:46 36.4 90 18 106/72 (83) 94 Nasal Cannula 2.0 Physical Exam General Appearance: WD/WN, no apparent distress Eyes: normal inspection, PERRL, EOMI, + pertinent finding (periorbital bruising ) ENT: hearing grossly normal, pharynx normal Neck: supple, no adenopathy, thyroid normal, no JVD Respiratory/Chest: chest non-tender, no respiratory distress, no accessory muscle use, + crackles (minimal bibasilar, improving) Cardiovascular: no edema, no gallop, no JVD, no murmur, + irregularly irregular Abdomen: normal bowel sounds, non tender, soft, no organomegaly, no pulsatile mass Extremities: normal inspection, no pedal edema, no calf tenderness, + pertinent finding (left leg immobilized, tender to palpation around left knee joint and right shoulder. Rt shoulder in sling) Neurologic/Psychiatric: heddler tier II-XII nml as tested, no motor/sensory deficits, alert, normal mood/affect, oriented x 3 Skin: normal color, warm/dry, no rash Laboratory Results Last Resulted 04/15/17 05:41 Last Resulted 04/16/17 05:34 Assessment and Plan 56 y/o F admitted for fall after feeling lightheaded after feeding her cat while bending over with no LOC, CP, palpitations, SOB, n/v, or diaphoresis prior to her fall. She fell forward onto her left knee, hit her head on a cupboard, and fell onto her right side. Patellar fracture and prepatellar and suprapatellar hematoma and joint effusion -Resumed Xarelto -pain control with oral meds. hasn't needed any IV med -PT/OT eval. Will need rehab. Shoulder pain: -Partial subluxation and evulsion fracture of right shoulder -evaluated by ortho. -in sling at the moment. address at rehab. Fall - ? presyncope with ambulatory dysfunction Hypomagnesemia and Hypokalemia - likely sec to HCTZ use -has not complied with supplements; replaced in ED -Mag on admission: 1.1, most recent 2.0 -K on admission: 3.0, today 4.5 -Trend BMP -Switch to dyazide on discharge; started with half tab yesterday Low urine output night of 04/15/17 sec to poor oral intake -Stressed increased oral intake Hypoxia -? sec to splinting due to posture and right shoulder/ribcage pain. follow on discharge. -incentive spirometry EKG changes - no additional evidence of ACS - we will repeat following electrolyte replacement as it is currently suspected that the changes are due to her deficiencies - will recheck a trop as well. 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 Per ID, DC dapto and convert back to bactrim DS bid TSH elevated -Checked Free T4 which was depressed at 0.64 -TSH on admission 17.3. Normal thyroid hormones as of October DM - medications held, glucose range has been normal while in house. BSG ACHS Asthma - cont prescribed inhalers PAF - rhythm is sinus on admission, goes in and out of afib - cont Amiodarone, Metoprolol - Xarelto restarted Code: Full DVTP: xarelto Dispo: med/surg, rehab tomorrow if insurance goes through d/c gianfranco Resident Tracking Resident Involvement: Resident Care Provided Care Provided: Adult Hospital Medicine Reviewed: Pt Seen/Exam by Me History shoulder and knee pain overall controlled with rest Constitutional: denies: fever Respiratory: negative: short of breath Cardiovascular: denies chest pain General Appearance: no apparent distress (in bed) Respiratory: lungs clear (anteriorly), no respiratory distress Cardiovascular: regular rate, rhythm Neurologic/Psychiatric: alert, oriented x 3 Skin Characteristics: warm/dry Assessment/Plan Resident Physician Supervision Note: I independently interviewed and examined the patient and verified the vega history and physical, reviewed labs and image studies, discussed the case with the resident Dr. Burnette and agree with the findings and care plan.
[2017-04-16] MEDS: ATORVASTATIN 40 MG TAB PO SCH (21:20)
[2017-04-16] MEDS: SULFAMETHOXAZOLE/TRIMETHOPRIM DS 800/160MG TAB PO SCH (21:21)
[2017-04-16] MEDS: ESCITALOPRAM OXALATE 10 MG TAB PO SCH (21:21)
[2017-04-17 06:41] LABS: CALCIUM 9.2 mg/dl (8.5-10.1); CREATININE 0.9 mg/dl (0.60-1.20); POTASSIUM 4.2 mmol/L (3.5-5.1)
[2017-04-17] MEDS: OXYCODONE/ACETAMINOPHEN 7.5-325 TAB PO PRN (06:49)
[2017-04-17 07:20] VITALS: BP 102/71; PULSE 98; TEMP 36.7; O2SAT 95
[2017-04-17 07:41] LABS: HEMOGLOBIN A1C 5.7 % (4.5-5.6)
--- NOTE | 2017-04-17 07:50 | PROGRESS NOTE ---
DATE: 04/17/2017 SUBJECTIVE: A 56-year-old female admitted with a minimally displaced left patellar fracture and a right greater tuberosity fracture and multiple rib fractures. She is doing okay. Her ribs seemed to be hurting her more than anything. No other new complaints. OBJECTIVE: VITAL SIGNS: Temperature 36.8. Vital signs stable. GENERAL: Reveals a middle-aged female who is lying in bed, looks reasonably comfortable. EXTREMITIES: Examination of the right arm reveals the immobilizer to be in place. The shoulder is located. She is neurologically intact. Does have pain with any attempted shoulder motion. Examination of the left lower extremity reveals the leg to be well aligned. The knee immobilizer slid way down her leg. She can do a straight leg raise with some effort. There is no palpable defect to her kneecap. A small knee effusion. ASSESSMENT: A 56-year-old female with multiple underlying comorbidities with; 1. Left minimally displaced patellar fracture with an intact extensor mechanism. 2. Right greater tuberosity fracture. 3. Multiple rib fractures. PLAN: At this point, all these issues are nonoperative in nature. Her knee immobilizer tends to slide down and this needs to be pulled up before she does any weightbearing. We are going to keep her in the knee immobilizer for the next 4-6 weeks. She can weightbear as tolerated in the knee immobilizer. No knee range of motion. I should check her back in clinic in about 2 weeks. With respedt to her shoulder, I would just leave the shoulder immobilizer on. No shoulder motion. It will help her to be in a sitting up position or reclining position to sleep. I will also follow this back in 2 weeks. She is orthopedically stable for discharge. Any orthopedic questions can be directed to me at [phone]. [facility]
[2017-04-17 09:00] VITALS: O2SAT 95
[2017-04-17] MEDS: SENNA 8.6 MG TAB PO SCH (09:00)
[2017-04-17] MEDS: FLUTICASONE/SALMETEROL 250/50 (ADVAIR) 14 PUFF/1 INHALER INH SCH (10:15)
[2017-04-17] MEDS: DOCUSATE SODIUM 100 MG CAP PO SCH (10:16)
[2017-04-17] MEDS: TRIAMTERENE/HCTZ 37.5/25MG TAB PO SCH (10:17)
[2017-04-17] MEDS: AMIODARONE 200 MG TAB PO SCH (10:17)
[2017-04-17] MEDS: MAGNESIUM OXIDE 400 MG TAB PO SCH (10:17)
[2017-04-17] MEDS: SULFAMETHOXAZOLE/TRIMETHOPRIM DS 800/160MG TAB PO SCH (10:18)
[2017-04-17] MEDS: MONTELUKAST SOD 10 MG TAB PO SCH (10:19)
[2017-04-17] MEDS: CYANOCOBALAMIN 500 MCG TAB (VIT B-12) PO SCH (10:22)
[2017-04-17] MEDS: METOPROLOL SUCC 50MG EXT REL TAB PO SCH (10:22)
[2017-04-17] MEDS: BuPROPion SR 150 MG TABCR PO SCH (10:23)
[2017-04-17] MEDS: CETIRIZINE HCL 10 MG TAB PO SCH (10:24)
[2017-04-17] MEDS: LISINOPRIL 5 MG TAB PO SCH (10:24)
[2017-04-17] MEDS: LORAZEPAM 0.5 MG TAB PO PRN (10:25)
[2017-04-17] MEDS ORDERED: NURSING VERBAL MED ORDER ONE (10:30)
[2017-04-17] MEDS ORDERED: SULF-302 PO (11:21)
--- NOTE | 2017-04-17 11:45 | Discharge Instructions ---
Discharge Instructions Date of Service Apr 17, 2017. Admission Reason for Admission: Hypomagnesemia,Patellar Fracture Discharge Discharge Diagnosis / Problem: Patellar fracture Discharge Goals Goal(s): Improve function, Increase independence Activity Recommendations Activity Limitations: per Instructions/Follow-up section . Instructions / Follow-Up Instructions / Follow-Up 56 y/o F admitted for fall after feeling lightheaded after feeding her cat while bending over with no LOC, CP, palpitations, SOB, n/v, or diaphoresis prior to her fall. She fell forward onto her left knee, hit her head on a cupboard, and fell onto her right side. Patellar fracture and prepatellar and suprapatellar hematoma and joint effusion -Resumed Xarelto, pain well controlled. Pt would benefit from rehabilitation. -Her knee immobilizer tends to slide down and this needs to be pulled up before she does any weightbearing. We are going to keep her in the knee immobilizer for the next 4-6 weeks. She can weightbear as tolerated in the knee immobilizer. No knee range of motion. Dr. Guzman should check her back in clinic in about 2 weeks. Right Shoulder pain: -Partial subluxation and evulsion fracture of right shoulder -in sling at the moment. address at rehab. -evaluated by ortho: -With respect to her shoulder, leave the shoulder immobilizer on. No shoulder motion. It will help her to be in a sitting up position or reclining position to sleep. Dr. Guzman will also follow this back in 2 weeks. Fall - ? presyncope with ambulatory dysfunction Hypomagnesemia and Hypokalemia - likely sec to HCTZ use -has not complied with supplements; very important that she is compliant with these medications -Mag on admission: 1.1, most recent 2.0 -K on admission: 3.0, today 4.2 -Switch HCTZ to dyazide on discharge; has done well on 1/2 tablet Low urine output night of 04/15/17 sec to poor oral intake -Stressed increased oral intake Hypoxia -? sec to splinting due to posture and right shoulder/ribcage pain. continue to monitor -stressed incentive spirometry EKG changes - no additional evidence of ACS Osteomyelitis of toe - MRSA on biopsy. -Resumed her daily bactrim DS bid TSH elevated -Checked Free T4 which was depressed at 0.64 -TSH on admission 17.3. Normal thyroid hormones as of October -Monitor as outpatient DM - medications held, glucose range has been normal while in house. Resume home meds. [id number]=0.7% Asthma - continue prescribed inhalers PAF - cont Amiodarone, Metoprolol - Xarelto restarted Current Hospital Diet Patient's current hospital diet: Diabetes Type 2 Diet, AHA Diet (Heart Healthy) Discharge Diet Recommended Diet: AHA Diet (Heart Healthy), Diabetes Type 2 Diet Pending Studies Studies pending at discharge: no Laboratory Results Hemoglobin A1c Test 04/17/17 05:31 Range/Units Estimated Average Glucose 117 mg/dl Hemoglobin A1c 5.7 H 4.5-5.6 % Medical Emergencies . Who to Call and When: Medical Emergencies: If at any time you feel your situation is an emergency, please call 911 immediately. . Non-Emergent Contact Non-Emergency issues call your: Primary Care Provider . . "Provider Documentation" section prepared by Leslie Burnette. . VTE Core Measure Inpt VTE Proph given/why not?: Other Anticoagulation (restarted xarelto after decision not to operate)
[2017-04-17] MEDS ORDERED: TRIA37.53 PO (11:47)
[2017-04-17 14:34] VITALS: BP 102/71; PULSE 98; TEMP 36.7; O2SAT 95
--- NOTE | 2017-04-17 15:05 | Infectious Disease Progress Nt ---
Progress Note Date of Service Apr 17, 2017. Subjective Pt evaluation today including: conversation w/ patient, physical exam, chart review, lab review, review of studies, conversation w/ fashion consultant selling, review of inpatient medication list Complaining of pain from broken ribs. Otherwise offers no new complaints. Remains afebrile. All Other Systems: Reviewed and Negative Medications Current Inpatient Medications Medications (Trade) Dose Ordered Sig/Flash Route Start Time Stop Time Status Last Admin Dose Admin Amiodarone HCl (Cordarone Tab) 200 mg BID PO 04/13/17 09:00 05/13/17 08:59 04/17/17 10:17 200 MG Atorvastatin Calcium (Lipitor Tab) 40 mg QPM PO 04/13/17 21:00 05/13/17 20:59 04/16/17 21:20 40 MG Bupropion HCl (Wellbutrin-Sr Tab) 150 mg DAILY PO 04/13/17 09:00 05/13/17 08:59 04/17/17 10:23 150 MG Cetirizine HCl (zyrTEC TAB) 10 mg DAILY PO 04/13/17 09:00 05/13/17 08:59 04/17/17 10:24 10 MG Cyanocobalamin (Vitamin B-12 Tab) 1,000 mcg DAILY PO 04/13/17 09:00 05/13/17 08:59 04/17/17 10:22 1,000 MCG Escitalopram Oxalate (Lexapro Tab) 10 mg HS PO 04/13/17 21:00 05/13/17 20:59 04/16/17 21:21 10 MG Salmeterol Xinafoate/ Fluticasone (Advair Diskus 250/50 Inh) 1 puff BID INH 04/13/17 09:00 05/13/17 08:59 04/17/17 10:15 1 PUFF Lorazepam (Ativan Tab) 0.5 mg BID PRN PO 04/13/17 01:45 05/13/17 01:44 04/17/17 10:25 0.5 MG Magnesium Oxide (Mag-Ox Tab) 400 mg BID PO 04/13/17 09:00 05/13/17 08:59 04/17/17 10:17 400 MG Metoprolol Succinate (Toprol Xl Tab) 200 mg DAILY PO 04/13/17 09:00 05/13/17 08:59 04/17/17 10:22 200 MG Montelukast Sodium (Singulair Tab) 10 mg DAILY PO 04/13/17 09:00 05/13/17 08:59 04/17/17 10:19 10 MG Albuterol (Proair Hfa) 2 puffs Q4H PRN INH 04/13/17 01:45 05/13/17 01:44 Hydromorphone HCl (Dilaudid Inj) 0.5 mg Q3H PRN IV 04/13/17 01:45 04/27/17 01:44 04/13/17 03:39 0.5 MG Oxycodone/ Acetaminophen (Percocet 7.5-325MG Tab) 1 tab Q4H PRN PO 04/13/17 01:45 04/27/17 01:44 04/17/17 06:49 1 TAB Acetaminophen (Tylenol Tab) 650 mg Q4H PRN PO 04/13/17 01:45 05/13/17 01:44 04/16/17 00:22 650 MG Al Hydrox/Mg Hydrox/Simethicone (Maalox Max Susp) 15 ml Q4H PRN PO 04/13/17 01:45 05/13/17 01:44 Magnesium Hydroxide (Milk Of Magnesia Susp) 30 ml Q12H PRN PO 04/13/17 01:45 05/13/17 01:44 Ondansetron HCl (Zofran Inj) 4 mg Q6H PRN IV 04/13/17 01:45 05/13/17 01:44 04/13/17 03:38 4 MG Heparin Sodium (Porcine) (Heparin 10 Unit/ ml 5 ml Flush) 5 ml PRN PRN FLUSH 04/14/17 03:00 05/14/17 02:59 04/17/17 05:30 5 ML Rivaroxaban (Xarelto Tab) 20 mg QDD PO 04/15/17 16:45 05/15/17 16:44 04/16/17 15:51 20 MG Lisinopril (Zestril Tab) 5 mg QAM PO 04/15/17 09:00 05/15/17 08:59 04/17/17 10:24 5 MG Triamterene/HCTZ (Maxzide 37.5/25 Tab) 0.5 tab QAM PO 04/15/17 14:48 05/15/17 14:47 04/17/17 10:17 0.5 TAB Polyethylene (Miralax Powder Packet) 17 gm DAILY PRN PO 04/16/17 02:30 05/16/17 02:29 Docusate Sodium (coLACE CAP) 100 mg BID PO 04/16/17 02:30 05/16/17 02:29 04/16/17 21:20 100 MG Senna (Senokot Tab) 8.6 mg QAM PO 04/16/17 02:30 05/16/17 02:29 04/16/17 07:52 8.6 MG Trimethoprim/ Sulfamethoxazole (Septra Ds 800/ 160MG Tab) 1 tab Q12 PO 04/16/17 21:00 05/28/17 20:59 04/17/17 10:18 1 TAB Objective Vital Signs Date Time Temp Pulse Resp B/P (MAP) Pulse Ox O2 Delivery O2 Flow Rate FiO2 04/17/17 14:34 36.7 98 16 95 Nasal Cannula 04/17/17 09:00 95 Nasal Cannula 2.0 04/17/17 07:20 36.7 98 16 102/71 (81) 95 Nasal Cannula 2.0 04/16/17 23:45 95 Nasal Cannula 2.0 04/16/17 23:17 36.8 95 18 115/81 (92) 95 Nasal Cannula 2.0 04/16/17 16:30 Nasal Cannula 2.0 04/16/17 16:30 36.7 95 16 113/79 (90) 92 Nasal Cannula 2.0 04/16/17 16:25 36.8 74 18 97 2.0 Physical Exam General Appearance: WD/WN, no apparent distress, + obese Eyes: normal inspection, sclerae normal ENT: normal ENT inspection, pharynx normal Neck: supple, no adenopathy, thyroid normal, trachea midline Respiratory/Chest: chest non-tender, lungs clear, normal breath sounds, no respiratory distress Cardiovascular: regular rate, rhythm, no gallop, no murmur Abdomen: normal bowel sounds, non tender, soft, no organomegaly Extremities: non-tender, no calf tenderness Neurologic/Psychiatric: alert, oriented x 3 Skin: normal color, warm/dry, no rash Lymphatic: no adenopathy Laboratory Results Last 24 Hours Test 04/16/17 16:56 04/16/17 20:52 04/17/17 05:31 04/17/17 08:03 Bedside Glucose 106 mg/dl 117 mg/dl 109 mg/dl Sodium Level 133 mmol/L Potassium Level 4.2 mmol/L Chloride Level 97 mmol/L Carbon Dioxide Level 31 mmol/L Anion Gap 5.0 mmol/L Blood Urea Nitrogen 26 mg/dl Creatinine 0.90 mg/dl Est Creatinine Clear Calc Drug Dose 87.4 ml/min Estimated GFR () 84.0 Estimated GFR (Non- 72.5 BUN/Creatinine Ratio 28.7 Random Glucose 102 mg/dl Estimated Average Glucose 117 mg/dl Hemoglobin A1c 5.7 % Calcium Level 9.2 mg/dl Assessment and Plan 56-year-old female with diabetes mellitus, 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 Left great toe appears well healed without evidence of active infection, and patient has received very prolonged course of daptomycin . Patient should continue on oral Bactrim for chronic suppression of her infected right TKA. Will follow as an outpatient.
--- NOTE | 2017-04-18 00:42 | Discharge Summary ---
Discharge Summary Date of Service Apr 17, 2017. Discharge Summary Admission Date: Apr 13, 2017 at 01:43 Discharge Date: Apr 17, 2017 Discharge Disposition: [facility] facility Principal Diagnosis: Patellar fracture Problems/Secondary Diagnoses: DM, hypomagnesemia, hypokalemia, right shoulder evulsion fracture, pAF, hypoxia , osteomyelitis Immunizations: Have You Had Influenza Vaccine: No History of Tetanus Vaccine?: Yes History of Pneumococcal: No History of Hepatitis B Vaccine: No Medication Reconciliation New Medications: Sulfamethoxazole-Trimethoprim (Smz-Tmp Ds) 1 Tab Tab 1 TAB PO Q12 for 30 Days, #60 TAB Triamterene & Hydrochlorothiaz (Hctz/Triamterene) 1 Tab Tab 0.5 TAB PO QAM for 30 Days, #15 TAB Continued Medications: Albuterol Sulfate (Proair Respiclick) 108 Mcg/Act Aer 2 PUFFS INH q4-6h PRN for SOB/Wheezing Amiodarone HCl (Amiodarone HCl) 200 Mg Tab 200 MG PO BID Atorvastatin (Lipitor) 40 Mg Tab 40 MG PO QPM, TAB Bupropion (Wellbutrin Sr) 150 Mg Ertab 150 MG PO DAILY, TAB Calcium W/ Magnesium (Calcium & Magnesium) 1 Tab Tab 64-106 MG PO DAILY Cetirizine (Zyrtec) 10 Mg Tab 10 MG PO DAILY, TAB Cholecalciferol (Vitamin D3) 1,000 Unit Tab 1 TAB PO DAILY for 30 Days, #30 TAB 5 Refills Cyanocobalamin (Vitamin B-12) 1,000 Mcg Tab 1000 MCG PO DAILY, TAB Escitalopram (Lexapro) 10 Mg Tab 10 MG PO HS, 0 Refills Fluticasone Prop/Salmeterol (Advair Diskus 250/50 60 Dose) 1 Ea Aerp 1 PUFF INH BID, INHALER Lisinopril (Zestril) 5 Mg Tab 5 MG PO QPM, TAB Lorazepam (Ativan) 0.5 Mg Tab 0.25-0.5 MG PO BID PRN for Anxiety/Agitation, TAB Magnesium Oxide (Mag-Ox) 400 Mg Tab 400 MG PO BID, TAB Metformin Hcl (Glucophage) 1,000 Mg Tab 1000 MG PO BID, TAB Metoprolol Succinate (Toprolxl (Toprol-Xl) 200 Mg Tabcr 200 MG PO DAILY, TAB Montelukast Sodium (Montelukast Sodium) 10 Mg Tab 1 TAB PO DAILY for 90 Days, #90 TAB 3 Refills Rivaroxaban (Xarelto) 20 Mg Tab 1 TAB PO DAILY for 30 Days, #30 TAB 11 Refills Discontinued Medications: Daptomycin (Daptomycin) 500 Mg Inj 720 MG IV Q24H for 37 Days Discharge Exam ROS: Constitutional: + fatigue, No fever, No chills, No sweats, No weight loss, No weakness, No problem reported Respiratory: No cough, No sputum, No wheezing, No shortness of breath, No dyspnea on exertion, No dyspnea at rest, No hemoptysis, No problem reported Cardiovascular: No chest pain, No orthopnea, No PND, No edema, No claudication, No palpitations, No problem reported Abdomen: No pain, No nausea, No vomiting, No diarrhea, No constipation, No GI bleeding, No problem reported Musculoskeletal: + joint pain, + muscle pain, + swelling, No calf pain All Other Systems: Reviewed and Negative PE General Appearance: WD/WN, no apparent distress Eyes: normal inspection, PERRL, EOMI, + pertinent finding (periorbital bruising ) ENT: hearing grossly normal, pharynx normal Neck: supple, no adenopathy, thyroid normal, no JVD Respiratory/Chest: chest non-tender, no respiratory distress, no accessory muscle use, + crackles (minimal bibasilar, improving) Cardiovascular: no edema, no gallop, no JVD, no murmur, + irregularly irregular Abdomen: normal bowel sounds, non tender, soft, no organomegaly, no pulsatile mass Extremities: normal inspection, no pedal edema, no calf tenderness, + pertinent finding (left leg immobilized, tender to palpation around left knee joint and right shoulder. Rt shoulder in sling) Neurologic/Psychiatric: vegetable grader II-XII nml as tested, no motor/sensory deficits, alert, normal mood/affect, oriented x 3 Skin: normal color, warm/dry, no rash Hospital Course 56 y/o F admitted for fall after feeling lightheaded after feeding her cat while bending over with no LOC, CP, palpitations, SOB, n/v, or diaphoresis prior to her fall. She fell forward onto her left knee, hit her head on a cupboard, and fell onto her right side. Patellar fracture and prepatellar and suprapatellar hematoma and joint effusion -Resumed Xarelto, pain well controlled. Pt would benefit from rehabilitation. -Her knee immobilizer tends to slide down and this needs to be pulled up before she does any weightbearing. We are going to keep her in the knee immobilizer for the next 4-6 weeks. She can weightbear as tolerated in the knee immobilizer. No knee range of motion. Dr. Guzman should check her back in clinic in about 2 weeks. Partial subluxation and evulsion fracture of right shoulder -in sling at the moment. address at rehab. -evaluated by ortho: -With respect to her shoulder, leave the shoulder immobilizer on. No shoulder motion. It will help her to be in a sitting up position or reclining position to sleep. Dr. Guzman will also follow this back in 2 weeks. Fall - ? presyncope with ambulatory dysfunction Hypomagnesemia and Hypokalemia - likely sec to HCTZ use -has not complied with supplements; very important that she is compliant with these medications -Mag on admission: 1.1, most recent 2.0 -K on admission: 3.0, today 4.2 -Switch HCTZ to dyazide on discharge; has done well on 1/2 tablet Low urine output night of 04/15/17 sec to poor oral intake -Stressed increased oral intake Hypoxia -? sec to splinting due to posture and right shoulder/ribcage pain. continue to monitor -stressed incentive spirometry -Recommend sleep study as outpatient EKG changes - no additional evidence of ACS Osteomyelitis of toe - MRSA on biopsy. -Resumed her daily bactrim DS bid TSH elevated -Checked Free T4 which was depressed at 0.64 -TSH on admission 17.3. Normal thyroid hormones as of October -Monitor as outpatient DM - medications held, glucose range has been normal while in house. Resume home meds. XmO1C=3.7% Asthma - continue prescribed inhalers PAF - cont Amiodarone, Metoprolol - Xarelto restarted Total Time Spent: Greater than 30 minutes This includes examination of the patient, discharge planning, medication reconciliation, and communication with other providers. Discharge Instructions Please refer to the electronic Patient Visit Report (Discharge Instructions) for additional information. Follow-Up Orthopedics in 2 weeks Additional Copies To Parveen Fishman M.D. Resident Tracking Resident Involvement: Resident Care Provided Care Provided: Adult [facility] Medicine Reviewed: Pt Seen/Exam by Me History shoulder and knee pain well controlled Constitutional: denies: fever Respiratory: negative: short of breath General Appearance: no apparent distress Respiratory: lungs clear, no respiratory distress Cardiovascular: regular rate, rhythm Extremities: other (right shoulder in sling. left knee in brace) Neurologic/Psychiatric: alert, oriented x 3 Skin Characteristics: warm/dry Assessment/Plan Resident Physician Supervision Note: I independently interviewed and examined the patient and verified the vega history and physical, reviewed labs and image studies, discussed the case with the resident Dr. Burnette and agree with the findings and care plan. Time spent in discharge 40 min
== END 2017-04-17 15:30 | DRG 563 ==
LOC: EDBD 22:28 → C.EDB 22:29 → C.2T 04-13 01:43 → EDBEDREQ 04-13 01:50 → ENRESERV 04-13 01:53 → C.MSW 04-16 16:45
PROVIDERS: ADMIT Internal Medicine; ATTEND Family Medicine
DX: S82.032A Displaced transverse fracture of left patella, initial encounter for closed fracture (principal); M86.9 Osteomyelitis, unspecified; Z68.41 Body mass index [BMI] 40.0-44.9, adult; S42.251A Displaced fracture of greater tuberosity of right humerus, initial encounter for closed fracture; S22.41XA Multiple fractures of ribs, right side, initial encounter for closed fracture; E11.69 Type 2 diabetes mellitus with other specified complication; R51 Headache; F32.9 Major depressive disorder, single episode, unspecified; I10 Essential (primary) hypertension; E78.00 Pure hypercholesterolemia, unspecified; I48.0 Paroxysmal atrial fibrillation; E83.42 Hypomagnesemia; M10.9 Gout, unspecified; E66.01 Morbid (severe) obesity due to excess calories; E11.40 Type 2 diabetes mellitus with diabetic neuropathy, unspecified; E87.6 Hypokalemia; R09.02 Hypoxemia; J45.909 Unspecified asthma, uncomplicated; Z79.01 Long term (current) use of anticoagulants; Z79.84 Long term (current) use of oral hypoglycemic drugs; Z79.899 Other long term (current) drug therapy; W18.30XA Fall on same level, unspecified, initial encounter; Z88.0 Allergy status to penicillin; Y92.099 Unspecified place in other non-institutional residence as the place of occurrence of the external cause

== ENCOUNTER → 2017-04-21 | Outpatient (CLI) | payer OTHER ==
[~2017-04-21] MED LIST changes: -BUPR-267 PO; +BUPR-79 PO; -DAPT500I IV; +MAGN400T6 PO; -MGNO400 PO; +SULF-302 PO; +TRIA37.53 PO
== END ==
LOC: C.LABCC 08:24
PROVIDERS: ATTEND Internal Medicine
DX: R79.9 Abnormal finding of blood chemistry, unspecified (principal)

== ENCOUNTER → 2017-04-22 | Outpatient (CLI) | payer OTHER ==
[2017-04-22 09:48] LABS: BASO % 0.7 %; BASO ABS # 0.04 K/uL (0-0.2); EOS % 2.6 %; EOS ABS # 0.16 K/uL (0-0.5); HEMOGLOBIN 10.7 g/dL (12.0-16.0); IG# 0.01 K/uL (0.00-0.02); LYMPH % 26.1 %; LYMPH ABS # 1.59 K/uL (1.2-3.4); MEAN CELL VOLUME 94.7 fL (80-100); MEAN CORPUSCULAR HEMOGLOBIN 29.8 pg (25-34); MEAN CORPUSCULAR HGB CONC 31.5 g/dl (32-36); MEAN PLATELET VOLUME 11.7 fL (7.4-10.4); MONO % 11.8 %; MONO ABS # 0.72 K/uL (0.11-0.59); NEUT % 58.6 %; NEUT ABS # 3.58 K/uL (1.4-6.5); PLATELET COUNT 284 K/uL (130-400); RED CELL DISTRIBUTION WIDTH CV 16.9 % (11.5-14.5); RED CELL DISTRIBUTION WIDTH SD 57.8 fL (36.4-46.3); RETIC COUNT % 2.4 % (0.5-2.0)
[2017-04-22 09:58] LABS: ALBUMIN 3.2 gm/dl (3.4-5.0); ALT/SGPT 54 U/L (12-78); AST/SGOT 57 U/L (15-37); BLOOD UREA NITROGEN 17 mg/dl (7-18); CALCIUM 9.7 mg/dl (8.5-10.1); CARBON DIOXIDE 27 mmol/L (21-32); CHOLESTEROL 124 mg/dl (0-200); CREATININE 0.89 mg/dl (0.60-1.20); GLUCOSE 86 mg/dl (70-99); POTASSIUM 3.9 mmol/L (3.5-5.1); SODIUM 134 mmol/L (136-145)
[2017-04-22 10:03] LABS: ALKALINE PHOSPHATASE 124 U/L (45-117); LDL CHOLESTEROL CALCULATED 54 mg/dl; TOTAL PROTEIN 7.1 gm/dl (6.4-8.2); TRANSFERRIN 281 mg/dl (200-360)
== END ==
LOC: C.LABCC 08:43
PROVIDERS: ATTEND Internal Medicine
DX: D64.9 Anemia, unspecified (principal); E78.5 Hyperlipidemia, unspecified; E11.9 Type 2 diabetes mellitus without complications

== ENCOUNTER → 2017-04-29 | Outpatient (CLI) | payer OTHER ==
[~2017-04-29] MED LIST changes: +ACET-1311 PO; +BUPRTAB PO; +DXY100 PO; +LEVO50TA6 PO; +MCTP EXT; +METO-479 PO; +ONDA4TAB46 PO; +OXYC-57 PO; +TPRSR50 PO; +ULT50X PO; +ZNT150 PO
== END ==
LOC: C.LABCC 20:00
PROVIDERS: ATTEND Internal Medicine
DX: R19.7 Diarrhea, unspecified (principal)

== ENCOUNTER 2017-04-30 11:51 | Inpatient (IN) | payer OTHER ==
[~2017-04-30] VITALS: Ht 160 cm; Wt 109.4 kg
[~2017-04-30 11:51] MED LIST changes: -ACET-1311 PO; -BUPRTAB PO; -LEVO50TA6 PO; -METO-479 PO; -ONDA4TAB46 PO; -OXYC-57 PO
[2017-04-30 13:38] VITALS: BP 95/58; PULSE 48; TEMP 36.5; O2SAT 95; Ht 160 cm; Wt 109.4 kg
[2017-04-30] MEDS ORDERED: LEVO50TA6 PO (14:29)
[2017-04-30] MEDS ORDERED: OXYC-57 PO (14:33)
[2017-04-30] MEDS ORDERED: ACET-1311 PO (14:40)
[2017-04-30] MEDS ORDERED: ONDA4TAB46 PO (14:42)
[2017-04-30 15:21] VITALS: BP 91/56; PULSE 48; TEMP 36.6; O2SAT 92
[2017-04-30] MEDS ORDERED: MoRPHine SULFATE 2 MG/ML CARP ONE (16:30)
[2017-04-30] MEDS ORDERED: SODIUM CHLORIDE 0.9% 500ML 500 ML IV SCH (16:30)
[2017-04-30] MEDS: SODIUM CHLORIDE 0.9% 1000ML 1,000 ML IV SCH (16:30)
[2017-04-30] MEDS ORDERED: ONDANSETRON INJ 2 MG/ML 2 ML VIAL IV PRN (16:45)
[2017-04-30] MEDS ORDERED: ONDANSETRON 4 MG TAB PO PRN (17:00)
[2017-04-30] MEDS ORDERED: GLUCOSE 10 TABS/TUBE PO PRN (17:30)
[2017-04-30] MEDS ORDERED: GLUCAGON FOR INJ 1 MG VIAL SQ PRN (17:30)
[2017-04-30] MEDS ORDERED: DEXTROSE 50% 50 ML SYR IV PRN (17:30)
[2017-04-30] MEDS ORDERED: GLUCOSE 40% GEL 15 GM TUBE PO PRN (17:30)
--- NOTE | 2017-04-30 17:30 | History and Physical ---
History & Physical Date & Time of Service: Apr 30, 2017 at 16:31 Chief Complaint: Acute Renal Failure Primary Care Physician: Parveen Fishman M.D. History of Present Illness Ms. Agrawal is a 56 year old woman here for acute renal failure. She had been in [facility] following a fall where she had a right shoulder avulsion fracture and a left patellar fracture. This summer she was diagnosed with osteomyelitis bilaterally and had recently finished a second course of antibiotics. She sees Dr. Cyr. She has been vomiting and having diarrhea since Thursday. She also has had burning with urination. She had labs drawn today by [facility] which showed acute renal failure and hyperkalemia so she was sent to [facility] as a direct admission. ROS Constitutional: no chills, aches, sweats or fever Respiratory: no sob,cough, sputum, or wheezing Cardiac: no chest pain, palpitations, edema, orthopnea or lightheadedness GI: no abdominal pain, nausea, vomiting, diarrhea or constipation : no dysuria or hesitancy Extremities: left knee pain Skin: no rash All other systems reviewed and negative Pmhx: DMII, htn, hypercholesteremia, a.fib with Xeralto Past Medical/Surgical History Medical Problems: (1) Abscess or cellulitis of foot Status: Resolved (2) Anxiety Status: Chronic (3) Asthma Status: Chronic (4) cellulitis Status: Resolved (5) Cellulitis of third toe, left Status: Resolved (6) Cellulitis of third toe, left Status: Resolved (7) Depression Status: Chronic (8) Diabetes Status: Chronic (9) Diabetic foot infection Status: Resolved (10) Hypercholesteremia Status: Chronic (11) Hypertension Status: Chronic (12) Osteomyelitis Status: Chronic (13) Paroxysmal a-fib Status: Resolved Surgical Problems: (1) History of knee replacement procedure of right knee Status: Resolved (2) Post-operative state Status: Resolved Family History Diabetes mellitus FHx: cancer FHx: heart disease Hypertension Kidney disease Kidney stones Social History Smoking Status: Former Smoker (quit three years ago) Smokeless Tobacco Use: No Alcohol Use: vodka five times a week, 1-2 glasses, last drink two weeks ago Drug Use: none Marital Status: single Housing status: longterm ([facility] for rehab, lives alone otherwise) Occupational Status: employed Immunizations History of Influenza Vaccine: No History of Tetanus Vaccine?: Yes History of Pneumococcal: Yes History of Hepatitis B Vaccine: No Multi-Drug Resistant Organisms History of MDRO: No Allergies Coded Allergies: Penicillins (Verified Allergy, Unknown, UNKNOWN, 03/19/15) Home Medications Scheduled Acetaminophen (Tylenol), 650 MG PO q 6 hours Amiodarone HCl (Amiodarone HCl), 200 MG PO BID Atorvastatin (Lipitor), 40 MG PO QPM Bupropion (Wellbutrin Sr), 150 MG PO DAILY Cholecalciferol (Vitamin D3), 1 TAB PO DAILY Cyanocobalamin (Vitamin B-12), 1,000 MCG PO DAILY Escitalopram (Lexapro), 10 MG PO HS Fluticasone Prop/Salmeterol (Advair Diskus 250/50 60 Dose), 1 PUFF INH BID Levothyroxine Sodium (Levothyroxine Sodium), 1 TAB PO DAILY Magnesium Oxide (Mag-Ox), 400 MG PO BID Metformin Hcl (Glucophage), 1,000 MG PO BID Montelukast Sodium (Montelukast Sodium), 1 TAB PO DAILY Rivaroxaban (Xarelto), 1 TAB PO DAILY Scheduled PRN Lorazepam (Ativan), 0.25-0.5 MG PO BID PRN for Anxiety/Agitation Ondansetron Hcl (Zofran), 4 MG PO Q6H PRN for Nausea Oxycodone/Acetaminophen 5MG/325MG (Percocet 5MG/325MG), 1 TABLET PO Q6H PRN for Pain Physical Exam Vital Signs Date Time Temp Pulse Resp B/P (MAP) Pulse Ox O2 Delivery O2 Flow Rate FiO2 04/30/17 15:21 36.6 48 16 91/56 (68) 92 04/30/17 13:38 36.5 48 18 95/58 95 Room Air General: no distress Eyes: normal inspection, PERLL Respiratory: chest non tender, clear to auscultation, normal breath sounds, no respiratory distress, no accessory muscle use Cardiac: regular rate and rhythm, no rub or gallop, no murmur, no edema, GI/: active bowel sounds, no abd pain or tenderness, soft, non distended Extremities: normal range of motion, normal strength, non tender Neuro/Psych: alert and oriented x 3, normal mood and affect Skin: normal color, dry, small non draining left posterior ankle wound and small right lower leg non draining wound Diagnostics EKG Sinus bradycardia with 1st degree A-V block Rightward axis Nonspecific ST abnormality Abnormal ECG When compared with ECG of 13-APR-2017 16:30, Previous ECG has undetermined rhythm, needs review ST no longer elevated in Inferior leads T wave inversion no longer evident in Inferior leads Nonspecific T wave abnormality no longer evident in Anterolateral leads QT has lengthened Impression Assessment and Plan Ms. Agrawal is a 56 year old woman here for acute renal failure Acute Renal Failure/hyponatremia/hypotension/dehydration - admit tele - Creat this morning 5.5 - prp this afternoon and tomorrow morning, magnesium - Renal, diabetic diet - 500 ml nss bolus then NSS @ 125 ml/hr - Sodium 123 - asymptomatic - trend sodium and provide IVF as above Hyperkalemia - K from this morning 5.4 - trend - repeat prp this afternoon and am Diarrhea/vomiting - prn antiemetics - QTc under 500 but longer than previous EKG - zofran for now , may need to change if QTc prolongs - stool culture, c.diff - contact precautions until c.diff resulted Anemia - Hgb 8.8, appears patient's baseline is around 11 - fecal occult - cbc am - may need to hold Xarelto if hgb continues to drift downward Dysuria - U/A, urine culture Left patellar, right shoulder avulsion fracture - pain control - patient did not tolerate oxycodone prescribed at [facility] - prn morphine, tramadol, acetaminophen - PT/OT - Continue to use brace on left knee when out of bed - increased pain in left knee - knee x ray DM II - hold metformin for now - bsg ac & hs, ss History of osteomyelitis - Aquacel and optifoam changed daily Hypothyroidism - continue home dose 50 mcg levothyroxine daily Hx A.fib - currently in a sinus bradycardia - will hold amiodarone for now - EKG with cp - hold Xarelto - consult cardiology DVT proph - Xeralto Full code Dispo: Patient came from [facility] where she was placed for inpatient rehab. She would like to be placed elsewhere upon discharge Resident Physician Supervision Note: Pt evaluated independently. I discussed the DISTRICT PLANT ENGINEER with the resident and agree with the findings and plan as documented in the note. Any exceptions or clarifications are listed here: 56 y/o F Hx AF, osteomyelitis, hypothyroidism, morbidly obese - recent admission for patellar and humeral Fx following a fall - she is rehabbing [facility] and developed N/V/D over the past 2 days - she states that 2 people she shares a room with have C diff. Labs were obtained at her facility and she was sent to the hospital due to ARF - noted to be bradycardic on arrival - no c/o CP, SOB OE AAO x 3 S1,2 R CTAB NT, ND +edema No deficits P: R/O C diff Aggressive IVF - trend BMP Hold Amio - monitor and consult cardio Initial labs show anemia which may be worsening - Xarelto held pending repeat Hb and guiac testing Documented By: Clovis Frankel Advanced Directives Existing Advance Directive: No Existing Living Will: No Existing Power of Manager Corporate Strategy: No Resuscitation Status FULL RESUSCITATION VTE Prophylaxis VTE Risk Assessment Done? Y/N: Yes Risk Level: Moderate Given or contraindicated: Other Anticoagulation Social Service Consult Lives in Group Home
[2017-04-30] MEDS ORDERED: NURSING DECISION MEDICATION ORDER SCH (18:00)
[2017-04-30] MEDS ORDERED: MICONAZOLE NITRATE POWDER 43 GM EXT PRN (18:00)
[2017-04-30] MEDS: LORAZEPAM 0.5 MG TAB PO PRN (18:14)
[2017-04-30] MEDS: ACETAMINOPHEN 500 MG TAB PO PRN (18:15)
[2017-04-30 18:19] LABS: CALCIUM 8.6 mg/dl (8.5-10.1); CREATININE 4.93 mg/dl (0.60-1.20); POTASSIUM 5.8 mmol/L (3.5-5.1)
[2017-04-30 19:13] VITALS: BP 113/73; PULSE 48; TEMP 36.5; O2SAT 97
--- NOTE | 2017-04-30 19:16 | DIAGNOSTIC IMAGING REPORT ---
L KNEE 3 VIEWS HISTORY: 56 years-old Female patellar fracture, increased pain acute left knee pain with patellar fracture COMPARISON: Left knee radiographs 04/12/2017 TECHNIQUE: 3 views of the left knee FINDINGS: Chondrocalcinosis about the knee. Severe lateral with moderate medial and moderate to severe patellofemoral osteoarthritis. The bones are mildly demineralized. Moderate soft tissue swelling about the knee with moderate joint effusion. Acute transverse fracture involves the inferior pole patella with 6 mm distraction. No opaque foreign body. IMPRESSION: 1. Unchanged alignment of the distracted acute transverse fracture of the patella. 2. Moderate soft tissue swelling with moderate joint effusion. 3. Tricompartmental osteoarthritis with chondrocalcinosis. The above report was generated using voice recognition software. It may contain grammatical, syntax or spelling errors. Electronically signed by: Kirby Burroughs M.D. 04/30/2017 7:15 PM Dictated Date/Time: 04/30/2017 7:13 PM
[2017-04-30] MEDS: TRAMADOL HCL 50 MG TAB PO PRN (20:46)
[2017-04-30] MEDS: ATORVASTATIN 40 MG TAB PO SCH (20:47)
[2017-04-30] MEDS: ESCITALOPRAM OXALATE 10 MG TAB PO SCH (20:47)
[2017-04-30] MEDS: FLUTICASONE/SALMETEROL 250/50 (ADVAIR) 14 PUFF/1 INHALER INH SCH (20:47)
[2017-04-30] MEDS: MAGNESIUM OXIDE 400 MG TAB PO SCH (20:47)
[2017-04-30] MEDS: INSULIN ASPART 100 UNITS/ML 3 ML PEN SC SCH (20:48)
[2017-05-01] VITALS (9 sets, daily range): BP systolic 99–117; BP diastolic 62–75; PULSE 50–84; TEMP 36.3–36.8; O2SAT 92–97
[2017-05-01] MEDS: MoRPHine SULFATE 2 MG/ML CARP IV PRN ×2 (00:05→10:15)
[2017-05-01] MEDS: SODIUM CHLORIDE 0.9% 1000ML 1,000 ML IV SCH ×4 (00:05→22:35)
[2017-05-01] MEDS: LEVOTHYROXINE 50 MCG TAB PO SCH (03:58)
[2017-05-01] MEDS: TRAMADOL HCL 50 MG TAB PO PRN ×4 (03:58→21:01)
[2017-05-01 06:20] LABS: HEMATOCRIT 27.9 % (37-47); HEMOGLOBIN 9.3 g/dL (12.0-16.0); MEAN CORPUSCULAR HGB CONC 33.3 g/dl (32-36); MEAN PLATELET VOLUME 10.3 fL (7.4-10.4); PLATELET COUNT 294 K/uL (130-400); RED CELL DISTRIBUTION WIDTH CV 15.6 % (11.5-14.5); RED CELL DISTRIBUTION WIDTH SD 51.3 fL (36.4-46.3); WHITE BLOOD COUNT 4.34 K/uL (4.8-10.8)
[2017-05-01 06:54] LABS: CALCIUM 8.5 mg/dl (8.5-10.1); CREATININE 3.54 mg/dl (0.60-1.20); POTASSIUM 4.4 mmol/L (3.5-5.1)
[2017-05-01] MEDS: INSULIN ASPART 100 UNITS/ML 3 ML PEN SC SCH ×4 (07:50→21:08)
[2017-05-01] MEDS: FLUTICASONE/SALMETEROL 250/50 (ADVAIR) 14 PUFF/1 INHALER INH SCH ×2 (08:22→21:02)
[2017-05-01] MEDS: BuPROPion SR 150 MG TABCR PO SCH (08:22)
[2017-05-01] MEDS: MONTELUKAST SOD 10 MG TAB PO SCH ×2 (08:22→21:08)
[2017-05-01] MEDS: MAGNESIUM OXIDE 400 MG TAB PO SCH ×2 (08:22→21:08)
[2017-05-01] MEDS: CYANOCOBALAMIN 500 MCG TAB (VIT B-12) PO SCH (08:23)
[2017-05-01] MEDS: CHOLECALCIFEROL 1000 INTER.UNIT TAB PO SCH (08:23)
--- NOTE | 2017-05-01 10:44 | Cardiology Consultation ---
Cardiology Consultation Date of Consultation: May 01, 2017. Requesting Physician: Tabitha Iqbal PA-C Attending Physician: Dr. Mitchell Reason for Consultation: Bradycardia Pt evaluation today including: conversation w/ patient, physical exam, chart review, lab review, review of studies, review of inpatient medication list, conversation w/ attending History of Present Illness Ms. Agrawal is a 56-year-old female with a history of paroxysmal atrial fibrillation/flutter. She was originally diagnosed with the arrhythmia in 2014. She was initially anticoagulated and started on a rate control strategy, but her rate was unable to adequately controlled. She was subsequently initiated on Flecainide for rhythm control strategy, however, she was unable to maintain sinus rhythm with this agent. She was subsequently referred to [facility] for possible ablation, however, it was felt that an ablation may not be effective given her multiple comorbidities. She was subsequently initiated on amiodarone therapy in September 2016. She has been maintained on amiodarone 200 mg BID since that time. She also takes metoprolol succinate 200 mg daily and Xarelto 20 mg daily. She was recently admitted to [facility] from 04/13/2017 through 04/17/2017 due to a fall which resulted in a left patellar fracture and right greater tuberosity fracture. Electrocardiogram during that admission showed atrial flutter. It appears as though she was discharged in that rhythm as there is no documentation of a cardioversion. She was discharged to [facility] where she remained until last evening when she was readmitted due acute renal failure with a creatinine as high as 5.5 as well as hyponatremia, hyperkalemia, hypotension, and dehydration. The patient reports that for the last 5 days, she has had vomiting and diarrhea. She has also noted orthostatic lightheadedness. The patient was also noted to be anemic with a hemoglobin of 9.3. Her electrocardiogram showed sinus bradycardia with first degree AV block and a rate of 48 bpm. Her amiodarone was subsequently held. Her metoprolol and Xarelto have also been held. She denies any palpitations, chest pain, or shortness of breath. She notes chronic orthopnea with lying on her back. She notes some edema of her left leg following the patellar fracture. She has not had a syncopal event. She denies abnormal bleeding such as melena, hematochezia, or hematuria. She denies cerebrovascular symptoms. Review of Systems: As noted in HPI. All other 10 point ROS reviewed and otherwise negative. Past Medical/Surgical History 1. Atrial fibrillation/flutter 2. Asthma 3. Anxiety 4. Type 2 diabetes mellitus 5. Depression 6. Hypercholesterolemia 7. Hypertension 8. Hypothyroidism 9. Osteoarthritis 10. Obesity 11. Osteomyelitis with amputation of a toe on the right foot in 2013 and a toe on the left foot in 2016 12. Right total knee arthroplasty in 2010 Family History Diabetes mellitus FHx: cancer FHx: heart disease Hypertension Kidney disease Kidney stones Significant for breast cancer as well as diabetes. Social History Smoking Status: Former Smoker (quit three years ago) History of Alcohol Use: Yes (2-3 PER DAY) She smoked up to 1 pack per week for 20-25 years. She quit in 2013. She drinks 5 -10 alcoholic beverages per week. She denies illicit drug use. Allergies Coded Allergies: Penicillins (Verified Allergy, Unknown, UNKNOWN, 03/19/15) Medications Current Inpatient Medications Medications (Trade) Dose Ordered Sig/Flash Route Start Time Stop Time Status Last Admin Dose Admin Sodium Chloride 1,000 ml @ 125 mls/hr Q8H IV 04/30/17 16:30 05/30/17 16:29 05/01/17 00:05 125 MLS/HR Morphine Sulfate (MoRPHine SULFATE INJ) 2 mg Q4H PRN IV 04/30/17 16:30 05/14/17 16:29 05/01/17 00:05 2 MG Tramadol HCl (Ultram Tab) 25 mg Q4H PRN PO 04/30/17 16:30 05/30/17 16:29 05/01/17 03:58 25 MG Acetaminophen (Tylenol Tab) 1,000 mg Q8 PRN PO 04/30/17 16:30 05/30/17 16:29 04/30/17 18:15 1,000 MG Ondansetron HCl (Zofran Inj) 4 mg Q6H PRN IV 04/30/17 16:45 05/30/17 16:44 Atorvastatin Calcium (Lipitor Tab) 40 mg QPM PO 04/30/17 21:00 05/30/17 20:59 04/30/17 20:47 40 MG Bupropion HCl (Wellbutrin-Sr Tab) 150 mg DAILY PO 05/01/17 09:00 05/31/17 08:59 05/01/17 08:22 150 MG Cholecalciferol (Vitamin D Tab) 1,000 inter.unit DAILY PO 05/01/17 09:00 05/31/17 08:59 05/01/17 08:23 1,000 INTER.UNIT Cyanocobalamin (Vitamin B-12 Tab) 1,000 mcg DAILY PO 05/01/17 09:00 05/31/17 08:59 05/01/17 08:23 1,000 MCG Escitalopram Oxalate (Lexapro Tab) 10 mg HS PO 04/30/17 21:00 05/30/17 20:59 04/30/17 20:47 10 MG Salmeterol Xinafoate/ Fluticasone (Advair Diskus 250/50 Inh) 1 puff BID INH 04/30/17 21:00 05/30/17 20:59 05/01/17 08:22 1 PUFF Levothyroxine Sodium (Synthroid Tab) 50 mcg DAILYBB PO 05/01/17 06:30 05/31/17 06:29 05/01/17 03:58 50 MCG Lorazepam (Ativan Tab) 0.25 mg BID PRN PO 04/30/17 17:00 05/30/17 16:59 04/30/17 18:14 0.25 MG Magnesium Oxide (Mag-Ox Tab) 400 mg BID PO 04/30/17 21:00 05/30/17 20:59 05/01/17 08:22 400 MG Montelukast Sodium (Singulair Tab) 10 mg HS PO 05/01/17 09:00 05/31/17 08:59 05/01/17 08:22 10 MG Ondansetron HCl (Zofran Tab) 4 mg Q6H PRN PO 04/30/17 17:00 05/30/17 16:59 Rivaroxaban (Xarelto Tab) 20 mg DAILY PO 05/01/17 09:00 05/31/17 08:59 Future Hold Insulin Aspart (novoLOG ASPART) SLIDING SCALE If C... ACHS SC 04/30/17 21:00 05/30/17 20:59 Glucose (Glucose 40% Gel) 15-30 GRAMS 15 GRAMS... UD PRN PO 04/30/17 17:30 05/30/17 17:29 Glucose (Glucose Chew Tab) 4-8 Tablets 4 Tabl... UD PRN PO 04/30/17 17:30 05/30/17 17:29 Dextrose (Dextrose 50% 50ML Syringe) 25-50ML OF 50% DW IV FOR... UD PRN IV 04/30/17 17:30 05/30/17 17:29 Glucagon (Glucagon Inj) 1 mg UD PRN SQ 04/30/17 17:30 05/30/17 17:29 Miconazole Nitrate (Desenex Powder) 1 appln BID PRN EXT 04/30/17 18:00 05/30/17 17:59 Physical Exam Vital Signs Past 12 Hours Date Time Temp Pulse Resp B/P (MAP) Pulse Ox O2 Delivery O2 Flow Rate FiO2 05/01/17 07:15 36.7 50 16 109/69 (82) 94 Nasal Cannula 2.0 05/01/17 05:30 36.3 84 18 117/67 (84) 95 2.0 05/01/17 04:05 Room Air 05/01/17 00:05 Room Air 05/01/17 00:00 36.5 51 20 113/75 (88) 92 2.0 Constitutional: Alert, oriented, in no acute distress HEENT: Head is atraumatic and normocephalic. EOMs intact. Sclera anicteric. Face is symmetric. No perioral cyanosis. Mucous membranes moist. Neck: Supple, no appreciable JVD, no carotid bruits Pulmonary: Normal respiratory effort, clear to auscultation bilaterally Cardiac: Bradycardic, regular rhythm, normal S1 and S2, no gallops, no rubs, no obvious murmurs Extremities: Right arm is in a sling and left leg is in a brace. No clubbing, cyanosis, or edema. Pulses intact Abdomen: Normal bowel sounds, soft, non-tender, no abdominal mass palpated Skin: Normal skin color, turgor, and pigmentation, no rash, no skin lesions Neurological: Oriented to person, place, and time Data Laboratory Results: Last 24 Hours Test 04/30/17 17:37 04/30/17 20:34 04/30/17 21:20 05/01/17 06:01 Sodium Level 123 mmol/L 129 mmol/L Potassium Level 5.8 mmol/L 4.4 mmol/L Chloride Level 92 mmol/L 98 mmol/L Carbon Dioxide Level 22 mmol/L 22 mmol/L Anion Gap 9.0 mmol/L 9.0 mmol/L Blood Urea Nitrogen 92 mg/dl 75 mg/dl Creatinine 4.93 mg/dl 3.54 mg/dl Est Creatinine Clear Calc Drug Dose 15.9 ml/min 21.8 ml/min Estimated GFR () 10.7 16.0 Estimated GFR (Non- 9.3 13.8 BUN/Creatinine Ratio 18.6 21.1 Random Glucose 103 mg/dl 80 mg/dl Calcium Level 8.6 mg/dl 8.5 mg/dl Magnesium Level 2.0 mg/dl Bedside Glucose 131 mg/dl Urine Color YELLOW Urine Appearance TURBID Urine pH 5.0 Urine Specific [place] 1.019 Urine Protein NEG Urine Glucose (UA) NEG Urine Ketones NEG Urine Occult Blood 2+ Urine Nitrite NEG Urine Bilirubin NEG Urine Urobilinogen NEG Urine Leukocyte Esterase LARGE Urine WBC (Auto) >30 /hpf Urine RBC (Auto) 0-4 /hpf Urine Hyaline Casts (Auto) 0 /lpf Urine Epithelial Cells (Auto) >30 /lpf Urine Bacteria (Auto) NEG Urine Renal Epithelial Cells /lpf Urine Crystals AMORPHOUS SEDIMENT White Blood Count 4.34 K/uL Red Blood Count 3.10 M/uL Hemoglobin 9.3 g/dL Hematocrit 27.9 % Mean Corpuscular Volume 90.0 fL Mean Corpuscular Hemoglobin 30.0 pg Mean Corpuscular Hemoglobin Concent 33.3 g/dl RDW Standard Deviation 51.3 fL RDW Coefficient of Variation 15.6 % Platelet Count 294 K/uL Mean Platelet Volume 10.3 fL Test 05/01/17 07:45 Bedside Glucose 93 mg/dl EKG: Sinus bradycardia with first degree AV block. [address] abnormality. Telemetry reviewed: Sinus bradycardia with first degree AV block. Rate is in the upper 40s and 50s. Assessment & Plan Patient is a 56-year-old female with multiple comorbidities including paroxysmal atrial fibrillation/flutter, hypertension, hypercholesterolemia, type 2 diabetes mellitus, and osteomyelitis who was admitted yesterday in the setting of acute renal failure/hyponatremia/hyperkalemia. She has had 5 days of vomiting and diarrhea. She was found to be bradycardic and hypotensive on arrival. She was also noted to be anemic with a hemoglobin of 9.3. The patient' s amiodarone, metoprolol, and Xarelto were held on arrival. Given the fact that she was found to be in atrial flutter during her hospitalization earlier this month while on antiarrhythmic therapy, would recommend resuming amiodarone 200 mg BID once her rate is consistently in the 50s. Her metoprolol succinate can also be restarted at a lower dose of 50 mg daily, also when her heart rate and blood pressure will allow. When she is stable from a bleeding/anemia standpoint, recommend bridging with heparin until her renal function normalizes and it is safe to resume Xarelto. Thank you for allowing us to see this patient in consultation. The patient was discussed with Dr. Mitchell, and the plan was made in collaboration with him. Addendum by Cardiology attending: Patient was seen and examined. Agree with above with following additions. She has had vomiting and diarrhea with worsening renal function. She was found to be bradycardic. She has experienced lightheadedness while presenting with hypovolemia. She denies chest pain or shortness of breath. Exam notable for: Cardiac: Regular. No murmurs, rubs, or gallops. Lungs: Clear to auscultation bilaterally. Extremities: Trace pedal edema bilaterally. ECG personally reviewed from 04/30/2017: Sinus bradycardia with first-degree AV block at 48 bpm. ASSESSMENT/PLAN: 1. Sinus bradycardia: Agree with holding beta-keya until heart rate allows or necessitates resuming beta-keya. Her last dose of metoprolol succinate was yesterday. Can resume at a lower dose, depending on heart rate and blood pressure. Would continue amiodarone, if heart rate allows due to her paroxysmal atrial flutter. 2. Paroxysmal atrial flutter: She reportedly had recurrent atrial flutter while on amiodarone and therefore would try to continue her usual dose of amiodarone as her heart rate allows. Hopefully with reduction/holding of metoprolol succinate, amiodarone can be continued. While off of Xarelto, would recommend heparin drip if no contraindication. 3. Disposition: Please call Dr. Sinclair for any questions or concerns over the weekend. Her primary commercial real estate broker, Dr. Martinez, will return on Thursday.
--- NOTE | 2017-05-01 11:58 | Hospitalist Progress Note ---
Hospitalist Progress Note Date of Service May 01, 2017. (Ebony Hill ., PA-C) Subjective Pt evaluation today including: conversation w/ patient, physical exam, chart review, lab review, review of studies, review of inpatient medication list Voiding: no voiding problems Patient resting in bed. Feels improved since admissions. Notes diarrhea, vomiting, and nausea since Thursday. Eating and drinking little. N/V has improved. Diarrhea continues but seems to be improving. Patient notes she has been sharing a bathroom with two [facility] residents who are c.diff positive. She follows w/ Dr. Cyr for h/o osteomyelitis. Most recently treated w/ Bactrim. Prior to that was on IV Daptomycin. Patient denies any fever, chills, sweats, lightheadedness, dizziness, vision changes, CP, palpitations, edema, SOB, wheezing, cough, abdominal pain, urinary symptoms, melena, numbness/tingling, weakness, muscle/joint pain, anxiety/ depression, active bleeding, or new skin discoloration/changes. (Ebony Hill ., PA-C) Medications Current Inpatient Medications Medications (Trade) Dose Ordered Sig/Flash Route Start Time Stop Time Status Last Admin Dose Admin Sodium Chloride 1,000 ml @ 125 mls/hr Q8H IV 04/30/17 16:30 05/30/17 16:29 05/01/17 00:05 125 MLS/HR Morphine Sulfate (MoRPHine SULFATE INJ) 2 mg Q4H PRN IV 04/30/17 16:30 05/14/17 16:29 05/01/17 10:15 2 MG Tramadol HCl (Ultram Tab) 25 mg Q4H PRN PO 04/30/17 16:30 05/30/17 16:29 05/01/17 11:43 25 MG Acetaminophen (Tylenol Tab) 1,000 mg Q8 PRN PO 04/30/17 16:30 05/30/17 16:29 04/30/17 18:15 1,000 MG Ondansetron HCl (Zofran Inj) 4 mg Q6H PRN IV 04/30/17 16:45 05/30/17 16:44 Atorvastatin Calcium (Lipitor Tab) 40 mg QPM PO 04/30/17 21:00 05/30/17 20:59 04/30/17 20:47 40 MG Bupropion HCl (Wellbutrin-Sr Tab) 150 mg DAILY PO 05/01/17 09:00 05/31/17 08:59 05/01/17 08:22 150 MG Cholecalciferol (Vitamin D Tab) 1,000 inter.unit DAILY PO 05/01/17 09:00 05/31/17 08:59 05/01/17 08:23 1,000 INTER.UNIT Cyanocobalamin (Vitamin B-12 Tab) 1,000 mcg DAILY PO 05/01/17 09:00 05/31/17 08:59 05/01/17 08:23 1,000 MCG Escitalopram Oxalate (Lexapro Tab) 10 mg HS PO 04/30/17 21:00 05/30/17 20:59 04/30/17 20:47 10 MG Salmeterol Xinafoate/ Fluticasone (Advair Diskus 250/50 Inh) 1 puff BID INH 04/30/17 21:00 05/30/17 20:59 05/01/17 08:22 1 PUFF Levothyroxine Sodium (Synthroid Tab) 50 mcg DAILYBB PO 05/01/17 06:30 05/31/17 06:29 05/01/17 03:58 50 MCG Lorazepam (Ativan Tab) 0.25 mg BID PRN PO 04/30/17 17:00 05/30/17 16:59 04/30/17 18:14 0.25 MG Magnesium Oxide (Mag-Ox Tab) 400 mg BID PO 04/30/17 21:00 05/30/17 20:59 05/01/17 08:22 400 MG Montelukast Sodium (Singulair Tab) 10 mg HS PO 05/01/17 09:00 05/31/17 08:59 05/01/17 08:22 10 MG Ondansetron HCl (Zofran Tab) 4 mg Q6H PRN PO 04/30/17 17:00 05/30/17 16:59 Rivaroxaban (Xarelto Tab) 20 mg DAILY PO 05/01/17 09:00 05/31/17 08:59 Future Hold Insulin Aspart (novoLOG ASPART) SLIDING SCALE If C... ACHS SC 04/30/17 21:00 05/30/17 20:59 Glucose (Glucose 40% Gel) 15-30 GRAMS 15 GRAMS... UD PRN PO 04/30/17 17:30 05/30/17 17:29 Glucose (Glucose Chew Tab) 4-8 Tablets 4 Tabl... UD PRN PO 04/30/17 17:30 05/30/17 17:29 Dextrose (Dextrose 50% 50ML Syringe) 25-50ML OF 50% DW IV FOR... UD PRN IV 04/30/17 17:30 05/30/17 17:29 Glucagon (Glucagon Inj) 1 mg UD PRN SQ 04/30/17 17:30 05/30/17 17:29 Miconazole Nitrate (Desenex Powder) 1 appln BID PRN EXT 04/30/17 18:00 05/30/17 17:59 (Ebony Hill PA-C) Objective Vital Signs Date Time Temp Pulse Resp B/P (MAP) Pulse Ox O2 Delivery O2 Flow Rate FiO2 05/01/17 11:27 36.7 53 16 117/74 (88) 97 Room Air 05/01/17 08:00 94 Nasal Cannula 2.0 05/01/17 07:15 36.7 50 16 109/69 (82) 94 Nasal Cannula 2.0 05/01/17 05:30 36.3 84 18 117/67 (84) 95 2.0 05/01/17 04:05 Room Air 05/01/17 00:05 Room Air 05/01/17 00:00 36.5 51 20 113/75 (88) 92 2.0 04/30/17 20:00 Room Air 04/30/17 19:13 36.5 48 20 113/73 (86) 97 Room Air 04/30/17 16:00 Room Air 04/30/17 15:21 36.6 48 16 91/56 (68) 92 04/30/17 13:38 36.5 48 18 95/58 95 Room Air (Ebony Hill PA-C) Physical Exam General Appearance: no apparent distress, + obese Eyes: PERRL, + pertinent finding (+exophthalmos ) ENT: hearing grossly normal Neck: supple Respiratory/Chest: lungs clear, no respiratory distress, no accessory muscle use Cardiovascular: + bradycardia (regular rhythm ) Abdomen: normal bowel sounds, non tender, soft Extremities: no pedal edema, no calf tenderness Neurologic/Psychiatric: alert, normal mood/affect, oriented x 3 Skin: normal color, warm/dry, no rash (Ebony Hill PA-C) Laboratory Results Last 24 Hours Test 04/30/17 17:37 04/30/17 20:34 04/30/17 21:20 05/01/17 06:01 Sodium Level 123 mmol/L 129 mmol/L Potassium Level 5.8 mmol/L 4.4 mmol/L Chloride Level 92 mmol/L 98 mmol/L Carbon Dioxide Level 22 mmol/L 22 mmol/L Anion Gap 9.0 mmol/L 9.0 mmol/L Blood Urea Nitrogen 92 mg/dl 75 mg/dl Creatinine 4.93 mg/dl 3.54 mg/dl Est Creatinine Clear Calc Drug Dose 15.9 ml/min 21.8 ml/min Estimated GFR () 10.7 16.0 Estimated GFR (Non- 9.3 13.8 BUN/Creatinine Ratio 18.6 21.1 Random Glucose 103 mg/dl 80 mg/dl Calcium Level 8.6 mg/dl 8.5 mg/dl Magnesium Level 2.0 mg/dl Bedside Glucose 131 mg/dl Urine Color YELLOW Urine Appearance TURBID Urine pH 5.0 Urine Specific [place] 1.019 Urine Protein NEG Urine Glucose (UA) NEG Urine Ketones NEG Urine Occult Blood 2+ Urine Nitrite NEG Urine Bilirubin NEG Urine Urobilinogen NEG Urine Leukocyte Esterase LARGE Urine WBC (Auto) >30 /hpf Urine RBC (Auto) 0-4 /hpf Urine Hyaline Casts (Auto) 0 /lpf Urine Epithelial Cells (Auto) >30 /lpf Urine Bacteria (Auto) NEG Urine Renal Epithelial Cells /lpf Urine Crystals AMORPHOUS SEDIMENT White Blood Count 4.34 K/uL Red Blood Count 3.10 M/uL Hemoglobin 9.3 g/dL Hematocrit 27.9 % Mean Corpuscular Volume 90.0 fL Mean Corpuscular Hemoglobin 30.0 pg Mean Corpuscular Hemoglobin Concent 33.3 g/dl RDW Standard Deviation 51.3 fL RDW Coefficient of Variation 15.6 % Platelet Count 294 K/uL Mean Platelet Volume 10.3 fL Test 05/01/17 07:45 Bedside Glucose 93 mg/dl (Ebony Hill PA-C) Assessment and Plan Ms. Agrawal is a 56 year old woman here for acute renal failure Acute renal failure w/ hyponatremia, hypotension, ?secondary to dehydration: - Admit to tele for cardiac monitoring - Follow PRP -- senior business consultant now 3.54 from 5.5 -- sodium now 129 from 123 - Continue IV NSS @ 125 ml/hr - Renal US pending - Check CPK - Hold nephrotoxic agents and renally dose medications as appropriate Hyperkalemia secondary to ARF- RESOLVED: Follow PRP Abnormal UA: - UCx w/ >3 organisms - Asymptomatic- will hold off on any abx treatment for now N/V/D: - IV Zofran PRN - Stool culture, c.diff pending- contact precautions Acute on chronic anemia- baseline hgb 11.0: - Follow H&H- hgb 9.3 today- STABLE - Fecal occult pending - Xarelto held Left patellar, right shoulder avulsion fracture: - PT/OT consultation - L knee x-ray- unchanged - Pain control w/ Morphine PRN, Tramadol PRN, Tylenol PRN T2DM- last hgbA1c 5.7% in 04/2017: - Hold Metformin while patient - BSG ACHS and ISS h/o osteomyelitis- follows w/ Dr. Cyr: - Last f/u in Mar 2017 which stated to continue IV Dapto x4 weeks and then f/u- no f/u noted in [employer]- will consult Dr. Cyr to ensure adequate treatment - Recently completed treatment of Bactrim at [facility] Hypothyroidism: Continue Synthroid h/o paroxysmal a.fib, HLD, HTN: - Amiodarone and Metoprolol held due to bradycardia - Cardiology consulted, appreciate recommendations -- Resume Amiodarone once HR consistently in 50s -- Resume Metoprolol at decreased dose of 50 mg daily -- Heparin bridge once hemodynamically stable until safe to resume Xarelto - Continue Lipitor, Mag-Ox supplement - Holding HCTZ, Lisinopril due to GABRIELA Anxiety, depression: Continue Wellbutrin, Lexapro, Ativan PRN GI prophylaxis: No PPI due to possible c.diff infection DVT prophylaxis: Held due to anemia Code status: LEVEL I, FULL Dispo: From [facility]- does NOT want to return there- PT/OT and CM consulted (Ebony Hill, PAPaulo) I personally interviewed and examined the patient. I agree with history of present illness and physical exam mentioned above, I also performed my own history taking and examination. Past medical history and review of system has been obtained by myself I reviewed all pertinent labs and studies Reviewed current medications I discussed and formulated of the assessment and plan mentioned above. Please refer to the Summary mentioned below. 6-year-old female presented with acute renal failure, hypovolemic hyponatremia secondary to decrease oral intake, diarrhea/vomiting Ultrasound kidney done showed no hydro- , also her rhabdo was ruled out C. 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 suppression, due to the renal failure switched to Doxy Currently renal function is improving Further recommendation will follow General Appearance: not in acute distress Eyes: normal Sclerae, extraocular muscle intact ENT: hearing grossly normal Neck: supple Respiratory/Chest: normal air entry bilateral ,no respiratory distress, no accessory muscle use Cardiovascular: regular rate, rhythm, no murmur Abdomen: non tender, soft, no masses Extremities: no edema Neurologic/Psychiatric: Awake alert oriented times place and person moves all extremities sensation intact cranial nerves II-12 appear to be intact Skin: normal color, warm/dry, no rash Dima Dhaliwal MD, [facility] hospitalist group (Dima Muro MD)
--- NOTE | 2017-05-01 14:44 | Medical Consult ---
Consultation Date of Consultation: May 01, 2017. Attending Physician: Dima Muro MD Reason for Consultation: H/O osteomyelitis, needs f/u History of Present Illness 56-year-old female well known to the Infectious Disease service, with history of chronically infected right TKA, recently status post prolonged treatment for left great toe osteomyelitis, recently hospitalized after a fall with patella fracture and severe shoulder injury, now readmitted with several days of severe nausea, vomiting, and diarrhea. She was found to have markedly elevated serum creatinine consistent with acute kidney injury. She had been on Bactrim therapy for chronic suppression of her knee infection. She denies any significant associated fever or chills. No increase in drainage from her right knee wound. Past Medical/Surgical History Medical Problems: (1) Hypokalemia Status: Acute (2) Left patella fracture Status: Acute (3) Sepsis Status: Acute (4) Toe osteomyelitis, left Status: Acute (5) Weakness Status: Acute Medical Problems: (1) Abscess or cellulitis of foot (2) Acute renal failure (3) Anxiety (4) Asthma (5) cellulitis (6) Cellulitis of third toe, left (7) Cellulitis of third toe, left (8) Depression (9) Diabetes (10) Diabetic foot infection (11) Hypercholesteremia (12) Hypertension (13) Hypomagnesemia (14) Osteomyelitis (15) Paroxysmal a-fib (16) Patellar fracture Surgical Problems: (1) History of knee replacement procedure of right knee (2) Post-operative state Family History Diabetes mellitus FHx: cancer FHx: heart disease Hypertension Kidney disease Kidney stones Social History Smoking Status: Former Smoker (quit three years ago) Smokeless Tobacco Use: No Alcohol Use: vodka five times a week, 1-2 glasses, last drink two weeks ago Drug Use: none Marital Status: single Housing Status: lives with family Occupation Status: employed Allergies Coded Allergies: Penicillins (Verified Allergy, Unknown, UNKNOWN, 03/19/15) Current Inpatient Medications Current Inpatient Medications Medications (Trade) Dose Ordered Sig/Flash Route Start Time Stop Time Status Last Admin Dose Admin Sodium Chloride 1,000 ml @ 125 mls/hr Q8H IV 04/30/17 16:30 05/30/17 16:29 05/01/17 00:05 125 MLS/HR Morphine Sulfate (MoRPHine SULFATE INJ) 2 mg Q4H PRN IV 04/30/17 16:30 05/14/17 16:29 05/01/17 10:15 2 MG Tramadol HCl (Ultram Tab) 25 mg Q4H PRN PO 04/30/17 16:30 05/30/17 16:29 05/01/17 11:43 25 MG Acetaminophen (Tylenol Tab) 1,000 mg Q8 PRN PO 04/30/17 16:30 05/30/17 16:29 04/30/17 18:15 1,000 MG Ondansetron HCl (Zofran Inj) 4 mg Q6H PRN IV 04/30/17 16:45 05/30/17 16:44 Atorvastatin Calcium (Lipitor Tab) 40 mg QPM PO 04/30/17 21:00 05/30/17 20:59 04/30/17 20:47 40 MG Bupropion HCl (Wellbutrin-Sr Tab) 150 mg DAILY PO 05/01/17 09:00 05/31/17 08:59 05/01/17 08:22 150 MG Cholecalciferol (Vitamin D Tab) 1,000 inter.unit DAILY PO 05/01/17 09:00 05/31/17 08:59 05/01/17 08:23 1,000 INTER.UNIT Cyanocobalamin (Vitamin B-12 Tab) 1,000 mcg DAILY PO 05/01/17 09:00 05/31/17 08:59 05/01/17 08:23 1,000 MCG Escitalopram Oxalate (Lexapro Tab) 10 mg HS PO 04/30/17 21:00 05/30/17 20:59 04/30/17 20:47 10 MG Salmeterol Xinafoate/ Fluticasone (Advair Diskus 250/50 Inh) 1 puff BID INH 04/30/17 21:00 05/30/17 20:59 05/01/17 08:22 1 PUFF Levothyroxine Sodium (Synthroid Tab) 50 mcg DAILYBB PO 05/01/17 06:30 05/31/17 06:29 05/01/17 03:58 50 MCG Lorazepam (Ativan Tab) 0.25 mg BID PRN PO 04/30/17 17:00 05/30/17 16:59 04/30/17 18:14 0.25 MG Magnesium Oxide (Mag-Ox Tab) 400 mg BID PO 04/30/17 21:00 05/30/17 20:59 05/01/17 08:22 400 MG Montelukast Sodium (Singulair Tab) 10 mg HS PO 05/01/17 09:00 05/31/17 08:59 05/01/17 08:22 10 MG Ondansetron HCl (Zofran Tab) 4 mg Q6H PRN PO 04/30/17 17:00 05/30/17 16:59 Rivaroxaban (Xarelto Tab) 20 mg DAILY PO 05/01/17 09:00 05/31/17 08:59 Future Hold Insulin Aspart (novoLOG ASPART) SLIDING SCALE If C... ACHS SC 04/30/17 21:00 05/30/17 20:59 Glucose (Glucose 40% Gel) 15-30 GRAMS 15 GRAMS... UD PRN PO 04/30/17 17:30 05/30/17 17:29 Glucose (Glucose Chew Tab) 4-8 Tablets 4 Tabl... UD PRN PO 04/30/17 17:30 05/30/17 17:29 Dextrose (Dextrose 50% 50ML Syringe) 25-50ML OF 50% DW IV FOR... UD PRN IV 04/30/17 17:30 05/30/17 17:29 Glucagon (Glucagon Inj) 1 mg UD PRN SQ 04/30/17 17:30 05/30/17 17:29 Miconazole Nitrate (Desenex Powder) 1 appln BID PRN EXT 04/30/17 18:00 05/30/17 17:59 Review of Systems All systems were reviewed and are negative except as per HPI Physical Exam Date Time Temp Pulse Resp B/P (MAP) Pulse Ox O2 Delivery O2 Flow Rate FiO2 05/01/17 12:00 97 Nasal Cannula 2.0 05/01/17 11:27 36.7 53 16 117/74 (88) 97 Room Air 05/01/17 08:00 94 Nasal Cannula 2.0 05/01/17 07:15 36.7 50 16 109/69 (82) 94 Nasal Cannula 2.0 05/01/17 05:30 36.3 84 18 117/67 (84) 95 2.0 1/26/18 04:05 Room Air 05/01/17 00:05 Room Air 05/01/17 00:00 36.5 51 20 113/75 (88) 92 2.0 04/30/17 20:00 Room Air 04/30/17 19:13 36.5 48 20 113/73 (86) 97 Room Air 04/30/17 16:00 Room Air 04/30/17 15:21 36.6 48 16 91/56 (68) 92 General Appearance: WD/WN, no apparent distress, + obese Head: normocephalic, atraumatic Eyes: normal inspection, EOMI, sclerae normal ENT: normal ENT inspection, hearing grossly normal, pharynx normal Neck: supple, no adenopathy, thyroid normal, trachea midline Respiratory/Chest: chest non-tender, lungs clear, normal breath sounds, no respiratory distress Cardiovascular: no gallop, no murmur, + irregularly irregular Abdomen/GI: normal bowel sounds, non tender, soft, no organomegaly Back: normal inspection, no CVA tenderness Extremities/Musculoskelatal: normal inspection, no calf tenderness, normal capillary refill, non-tender Neurologic/Psych: alert, normal mood/affect, oriented x 3 Skin: normal color, warm/dry, no rash, + pertinent finding (No drainage from wound below right knee) Lymphatic: no adenopathy Laboratory Results Date/Time Source Procedure Growth Status 04/30/17 21:20 Urine , Clean Catch Urine Culture - Final THREE TYPES OF ORGANISMS PRESENT, ALL... Complete Last 24 Hours Test 04/30/17 17:37 04/30/17 20:34 04/30/17 21:20 05/01/17 06:01 Sodium Level 123 mmol/L 129 mmol/L Potassium Level 5.8 mmol/L 4.4 mmol/L Chloride Level 92 mmol/L 98 mmol/L Carbon Dioxide Level 22 mmol/L 22 mmol/L Anion Gap 9.0 mmol/L 9.0 mmol/L Blood Urea Nitrogen 92 mg/dl 75 mg/dl Creatinine 4.93 mg/dl 3.54 mg/dl Est Creatinine Clear Calc Drug Dose 15.9 ml/min 21.8 ml/min Estimated GFR () 10.7 16.0 Estimated GFR (Non- 9.3 13.8 BUN/Creatinine Ratio 18.6 21.1 Random Glucose 103 mg/dl 80 mg/dl Calcium Level 8.6 mg/dl 8.5 mg/dl Magnesium Level 2.0 mg/dl Bedside Glucose 131 mg/dl Urine Color YELLOW Urine Appearance TURBID Urine pH 5.0 Urine Specific [place] 1.019 Urine Protein NEG Urine Glucose (UA) NEG Urine Ketones NEG Urine Occult Blood 2+ Urine Nitrite NEG Urine Bilirubin NEG Urine Urobilinogen NEG Urine Leukocyte Esterase LARGE Urine WBC (Auto) >30 /hpf Urine RBC (Auto) 0-4 /hpf Urine Hyaline Casts (Auto) 0 /lpf Urine Epithelial Cells (Auto) >30 /lpf Urine Bacteria (Auto) NEG Urine Renal Epithelial Cells /lpf Urine Crystals AMORPHOUS SEDIMENT White Blood Count 4.34 K/uL Red Blood Count 3.10 M/uL Hemoglobin 9.3 g/dL Hematocrit 27.9 % Mean Corpuscular Volume 90.0 fL Mean Corpuscular Hemoglobin 30.0 pg Mean Corpuscular Hemoglobin Concent 33.3 g/dl RDW Standard Deviation 51.3 fL RDW Coefficient of Variation 15.6 % Platelet Count 294 K/uL Mean Platelet Volume 10.3 fL Test 05/01/17 07:45 05/01/17 11:35 05/01/17 12:16 Bedside Glucose 93 mg/dl 96 mg/dl Total Creatine Kinase 169 U/L L KNEE 3 VIEWS HISTORY: 56 years-old Female patellar fracture, increased pain acute left knee pain with patellar fracture COMPARISON: Left knee radiographs 04/12/2017 TECHNIQUE: 3 views of the left knee FINDINGS: Chondrocalcinosis about the knee. Severe lateral with moderate medial and moderate to severe patellofemoral osteoarthritis. The bones are mildly demineralized. Moderate soft tissue swelling about the knee with moderate joint effusion. Acute transverse fracture involves the inferior pole patella with 6 mm distraction. No opaque foreign body. IMPRESSION: 1. Unchanged alignment of the distracted acute transverse fracture of the patella. 2. Moderate soft tissue swelling with moderate joint effusion. 3. Tricompartmental osteoarthritis with chondrocalcinosis. The above report was generated using voice recognition software. It may contain grammatical, syntax or spelling errors. Assessment & Plan 56 yo female with chronically infected right TKA with MSSA, on suppressive therapy with Bactrim, recent left great toe osteomyelitis s/p prolonged daptomycin Rx, now with GABRIELA with possible gastrointestinal infection. Would hold Bactrim given GABRIELA, substitute doxycycline 100 mg bid. To send C. diff PCR, stool culture. Will follow.
--- NOTE | 2017-05-01 15:08 | DIAGNOSTIC IMAGING REPORT ---
(RENAL)RETROPERITON COMP HISTORY: 56 years-old Female GABRIELA acute kidney injury COMPARISON: PET CT 11/07/2013 TECHNIQUE: Multiple real-time sonographic images of the kidneys and urinary bladder were obtained assessing grayscale appearance and color flow FINDINGS: The right kidney measures 12.9 x 6.5 x 6.3 cm and is within normal limits without renal calculi, hydronephrosis or focal mass lesion identified. Cortical medullary differentiation is preserved. Left kidney measures 11.8 x 5.7 x 5.6 cm and is also within normal limits without renal calculi, hydronephrosis or focal renal mass lesions. Cortical medullary differentiation is preserved. Urinary bladder is within normal limits however the ureteral jets are not identified. IMPRESSION: Unremarkable sonographic appearance of the bilateral kidneys and urinary bladder. The above report was generated using voice recognition software. It may contain grammatical, syntax or spelling errors. Electronically signed by: Kirby Burroughs M.D. 05/01/2017 3:07 PM Dictated Date/Time: 05/01/2017 3:00 PM
[2017-05-01] MEDS: DOXYCYCLINE HYCLATE 100 MG CAP PO SCH (21:02)
[2017-05-01] MEDS: ATORVASTATIN 40 MG TAB PO SCH (21:08)
[2017-05-01] MEDS: ESCITALOPRAM OXALATE 10 MG TAB PO SCH (21:09)
[2017-05-02] MEDS: TRAMADOL HCL 50 MG TAB PO PRN ×3 (04:26→18:05)
[2017-05-02 04:27] VITALS: BP 111/63; PULSE 60; TEMP 36.5; O2SAT 95
[2017-05-02] MEDS: LEVOTHYROXINE 50 MCG TAB PO SCH (05:25)
[2017-05-02] MEDS: LORAZEPAM 0.5 MG TAB PO PRN ×2 (05:25→15:37)
[2017-05-02 06:21] LABS: HEMATOCRIT 28.3 % (37-47); HEMOGLOBIN 9.1 g/dL (12.0-16.0); MEAN CELL VOLUME 92.5 fL (80-100); MEAN CORPUSCULAR HEMOGLOBIN 29.7 pg (25-34); MEAN CORPUSCULAR HGB CONC 32.2 g/dl (32-36); MEAN PLATELET VOLUME 10.3 fL (7.4-10.4); PLATELET COUNT 297 K/uL (130-400); RED CELL DISTRIBUTION WIDTH CV 16.2 % (11.5-14.5); RED CELL DISTRIBUTION WIDTH SD 53.9 fL (36.4-46.3)
[2017-05-02 06:57] LABS: CALCIUM 8.8 mg/dl (8.5-10.1); CREATININE 1.3 mg/dl (0.60-1.20)
[2017-05-02] MEDS: SODIUM CHLORIDE 0.9% 1000ML 1,000 ML IV SCH (07:09)
[2017-05-02 07:23] VITALS: BP 129/78; PULSE 57; TEMP 36.8; O2SAT 93
[2017-05-02] MEDS: MAGNESIUM OXIDE 400 MG TAB PO SCH (08:01)
[2017-05-02] MEDS: FLUTICASONE/SALMETEROL 250/50 (ADVAIR) 14 PUFF/1 INHALER INH SCH ×2 (08:01→20:24)
[2017-05-02] MEDS: CHOLECALCIFEROL 1000 INTER.UNIT TAB PO SCH (08:01)
[2017-05-02] MEDS: BuPROPion SR 150 MG TABCR PO SCH (08:02)
[2017-05-02] MEDS: DOXYCYCLINE HYCLATE 100 MG CAP PO SCH ×2 (08:02→20:27)
[2017-05-02] MEDS: CYANOCOBALAMIN 500 MCG TAB (VIT B-12) PO SCH (08:02)
[2017-05-02] MEDS: INSULIN ASPART 100 UNITS/ML 3 ML PEN SC SCH ×4 (08:04→20:23)
[2017-05-02] MEDS ORDERED: NURSING VERBAL MED ORDER ONE (12:00)
[2017-05-02 12:05] VITALS: BP 134/76; PULSE 63; TEMP 36.7; O2SAT 97
[2017-05-02 15:25] VITALS: BP 126/76; PULSE 69; TEMP 37.3; O2SAT 95
[2017-05-02] MEDS ORDERED: BUPRTAB PO (15:27)
[2017-05-02] MEDS ORDERED: RANITIDINE HCL 150 MG TAB PO ONE (15:28)
--- NOTE | 2017-05-02 15:45 | Hospitalist Progress Note ---
Hospitalist Progress Note Date of Service May 02, 2017. Subjective Pt evaluation today including: conversation w/ patient, chart review (reviewed NH records) Pt reports feeling much better. Only had a few small soft brown stools this AM, no further N/V/D. No gross blood in stool, no melena. Has had some heartburn in the last 2 weeks, feels like something is stuck at times in her lower esophagus with eating. Review of [place] and previous hospital records reveals she was discharged to [facility] on Dyazide and lisinopril last admission. Lisinopril was stopped about 5 days ago for low BPs, and then HCTZ was stopped on 04/29's dose for her N/V/D. All Other Systems: Reviewed and Negative Objective Vital Signs Date Time Temp Pulse Resp B/P (MAP) Pulse Ox O2 Delivery O2 Flow Rate FiO2 05/02/17 15:25 37.3 69 16 126/76 (93) 95 Room Air 05/02/17 12:05 36.7 63 18 134/76 (95) 97 05/02/17 12:00 Room Air 05/02/17 08:00 Room Air 05/02/17 07:23 36.8 57 22 129/78 (95) 93 Room Air 05/02/17 04:27 36.5 60 19 111/63 (79) 95 05/02/17 04:00 Room Air 2.0 Nasal Cannula 05/02/17 00:00 Room Air 2.0 Nasal Cannula 05/01/17 23:45 36.7 56 20 104/69 (81) 94 Room Air 05/01/17 20:07 36.8 54 20 99/62 (74) 95 Room Air 05/01/17 20:00 Room Air 05/01/17 16:00 Room Air 05/01/17 15:41 36.7 56 20 111/75 (87) 94 Room Air Physical Exam General Appearance: no apparent distress, + obese Eyes: normal inspection, sclerae normal ENT: hearing grossly normal Neck: trachea midline Respiratory/Chest: lungs clear, normal breath sounds, no respiratory distress, no accessory muscle use Cardiovascular: regular rate, rhythm, no edema, no gallop, no murmur Abdomen: normal bowel sounds, non tender, soft, no organomegaly Extremities: no pedal edema, no calf tenderness, + pertinent finding (missing toes on each foot; left leg in knee immobilizer not removed, RUE in shoulder sling) Neurologic/Psychiatric: alert, normal mood/affect (but some tearfulness with discussing frequent hospitalizations and NH stays) Skin: normal color, warm/dry, no rash, + pertinent finding (no lesions on feet) Laboratory Results Last 24 Hours Test 05/01/17 16:20 05/01/17 20:27 05/02/17 05:53 05/02/17 07:34 Bedside Glucose 169 mg/dl 148 mg/dl 136 mg/dl White Blood Count 4.80 K/uL Red Blood Count 3.06 M/uL Hemoglobin 9.1 g/dL Hematocrit 28.3 % Mean Corpuscular Volume 92.5 fL Mean Corpuscular Hemoglobin 29.7 pg Mean Corpuscular Hemoglobin Concent 32.2 g/dl RDW Standard Deviation 53.9 fL RDW Coefficient of Variation 16.2 % Platelet Count 297 K/uL Mean Platelet Volume 10.3 fL Sodium Level 135 mmol/L Potassium Level 4.0 mmol/L Chloride Level 105 mmol/L Carbon Dioxide Level 24 mmol/L Anion Gap 7.0 mmol/L Blood Urea Nitrogen 38 mg/dl Creatinine 1.30 mg/dl Est Creatinine Clear Calc Drug Dose 59.2 ml/min Estimated GFR () 53.9 Estimated GFR (Non- 46.5 BUN/Creatinine Ratio 29.5 Random Glucose 124 mg/dl Calcium Level 8.8 mg/dl Test 05/02/17 11:34 Bedside Glucose 145 mg/dl Assessment and Plan This pt is a 56 year old woman with a h/o PAFib/flutter on Xarelto, HTN, HL, obesity, VALERIE, 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 Acute renal failure w/ hyponatremia, hypotension-likely secondary to recent start on Dyazide,lisinopril in setting of acute GI illness with dehydration. Also was on chronic Bactrim DS. 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 K+ normal now as well, Na+ also normalized from 123 to 135 over 2 days' time. Renal US normal, CPK normal - Follow PRP -dc IVFs, is now tolerating po well - Hold nephrotoxic agents and renally dose medications as appropriate -holding metformin Abnormal UA: - UCx w/ >3 organisms - Asymptomatic- will hold off on any abx treatment for now other than doxy for knee N/V/D-was sharing a bathroom with 2 pts with known C. diff at [place]. C. diff antigen here is negative, Stool cx pending. Now resolving - IV Zofran PRN - f/u Stool culture Acute on chronic anemia- baseline hgb 11.0, now in the 9s. May have had some bleeding with her fractures on admission 2 weeks ago, no obvious bleeding by history. Has never had EGD/Colonoscopy. Hemoccult not yet collected here -safe to restart Xarelto as no obvious bleeding -collect Hemoccult -recommend EGD/Colonoscopy as outpt -follow CBC -start Zantac for heartburn symptoms, no PPI given possible susceptibility to C. diff Left patellar, right shoulder avulsion fracture: - PT/OT consultation - L knee x-ray- unchanged - Pain control w/ Morphine PRN, Tramadol PRN, Tylenol PRN T2DM- last hgbA1c 5.7% in 04/2017: - Hold Metformin while patient - BSG ACHS and ISS H/o chronic osteomyelitis- follows w/ Dr. Cyr: - Last f/u in Mar 2017 which stated to continue IV Dapto x4 weeks -Appreciate ID consult here--> changed po Bactrim to doxycycline Hypothyroidism-recently diagnosed with TSH 17 last admit. TSH now down to 11 after starting lebothyroxine -continue Synthroid 50 mcg and repeat TSH in 4 weeks H/o paroxysmal a.fib/flutter, HLD, HTN: was bradycardic in 40s on admission here , amiodarone and Toprol XL were held. Cardiology consult appreciated. Tele now reveals consistent HR in the 60s, NSR - restart Amiodarone 200mg bid as per Cardio recommendation -continue to hold Metoprolol until ensure HR remains persistently normal -resuming Xarelto today as above - Continue Lipitor -continue Mag-Ox supplement but decrease to once daily in case contributing to diarrhea Anxiety, depression: Continue Wellbutrin but changed to home dose is actually XL (not SR version as originally in med rec), Lexapro, Ativan PRN GI prophylaxis: No PPI due to possible c.diff infection,start Zantac DVT prophylaxis: Xarelto Code status: LEVEL I, FULL Dispo: From [place]- does NOT want to return there- PT/OT and CM consulted- considering [facility]
[2017-05-02 19:28] VITALS: BP 147/88; PULSE 62; TEMP 36.7; O2SAT 98
[2017-05-02] MEDS: AMIODARONE 200 MG TAB PO SCH (20:27)
[2017-05-02] MEDS: ESCITALOPRAM OXALATE 10 MG TAB PO SCH (20:27)
[2017-05-02] MEDS: MONTELUKAST SOD 10 MG TAB PO SCH (20:27)
[2017-05-02] MEDS: RANITIDINE HCL 150 MG TAB PO SCH (20:28)
[2017-05-02] MEDS: ATORVASTATIN 40 MG TAB PO SCH (20:28)
[2017-05-02 22:39] VITALS: BP 145/84; PULSE 69; TEMP 36.9; O2SAT 91
[2017-05-03] MEDS: TRAMADOL HCL 50 MG TAB PO PRN ×3 (00:56→20:28)
[2017-05-03 04:31] VITALS: BP 125/74; PULSE 71; TEMP 37; O2SAT 91
[2017-05-03] MEDS: LEVOTHYROXINE 50 MCG TAB PO SCH (05:50)
[2017-05-03 06:54] LABS: HEMATOCRIT 28.9 % (37-47); HEMOGLOBIN 9.2 g/dL (12.0-16.0); MEAN CELL VOLUME 93.2 fL (80-100); MEAN CORPUSCULAR HEMOGLOBIN 29.7 pg (25-34); MEAN CORPUSCULAR HGB CONC 31.8 g/dl (32-36); MEAN PLATELET VOLUME 10.6 fL (7.4-10.4); PLATELET COUNT 300 K/uL (130-400); RED CELL DISTRIBUTION WIDTH SD 54.7 fL (36.4-46.3); WHITE BLOOD COUNT 4.48 K/uL (4.8-10.8)
[2017-05-03 07:16] VITALS: BP 146/87; PULSE 69; TEMP 36.8; O2SAT 93
[2017-05-03 07:39] LABS: CALCIUM 8.7 mg/dl (8.5-10.1); CREATININE 0.78 mg/dl (0.60-1.20); POTASSIUM 4.1 mmol/L (3.5-5.1)
[2017-05-03] MEDS: INSULIN ASPART 100 UNITS/ML 3 ML PEN SC SCH ×4 (08:03→20:32)
[2017-05-03] MEDS: FLUTICASONE/SALMETEROL 250/50 (ADVAIR) 14 PUFF/1 INHALER INH SCH ×2 (08:04→20:30)
[2017-05-03] MEDS: CYANOCOBALAMIN 500 MCG TAB (VIT B-12) PO SCH (08:04)
[2017-05-03] MEDS: DOXYCYCLINE HYCLATE 100 MG CAP PO SCH ×2 (08:06→20:32)
[2017-05-03] MEDS: CHOLECALCIFEROL 1000 INTER.UNIT TAB PO SCH (08:06)
[2017-05-03] MEDS: RANITIDINE HCL 150 MG TAB PO SCH ×2 (08:06→20:32)
[2017-05-03] MEDS: BuPROPion XL 150 MG TABCR PO SCH (08:07)
[2017-05-03] MEDS: MAGNESIUM OXIDE 400 MG TAB PO SCH (08:07)
[2017-05-03] MEDS: AMIODARONE 200 MG TAB PO SCH ×2 (08:08→20:32)
[2017-05-03] MEDS: RIVAROXABAN 20 MG TAB PO SCH (10:01)
[2017-05-03] MEDS: MAGNESIUM SULFATE 1GM / D5W 1 GM in PREMIXED IN D5W 100 ML IV SCH ×3 (10:03→13:17)
[2017-05-03 11:24] VITALS: BP_SYST 153; BP_SYST 163; BP_DIAS 110; BP_DIAS 95; PULSE 69; TEMP 36.5; O2SAT 95
[2017-05-03 15:00] VITALS: BP 157/91; PULSE 71; TEMP 37; O2SAT 96
[2017-05-03] MEDS ORDERED: METOPROLOL SUCC 50MG EXT REL TAB PO STA (16:19)
[2017-05-03] MEDS ORDERED: METO-479 PO (16:19)
--- NOTE | 2017-05-03 16:27 | Hospitalist Progress Note ---
Hospitalist Progress Note Date of Service May 03, 2017. Subjective Pt evaluation today including: conversation w/ patient Pt feeling much better. No further N/V/D, no abd pain, no SOB or CP. BPs have been high since being off Toprol. Tele with NSR in 60s-70s All Other Systems: Reviewed and Negative Objective Vital Signs Date Time Temp Pulse Resp B/P (MAP) Pulse Ox O2 Delivery O2 Flow Rate FiO2 05/03/17 15:00 37.0 71 18 157/91 (113) 96 Room Air 05/03/17 12:00 Room Air 05/03/17 11:24 36.5 69 20 163/110 (127) 95 Room Air 153/95 (114) 05/03/17 08:00 Room Air 05/03/17 07:16 36.8 69 18 146/87 (106) 93 Room Air 05/03/17 04:31 37.0 71 17 125/74 (91) 91 Room Air 05/03/17 04:00 Room Air 05/03/17 00:00 Room Air 05/02/17 22:39 36.9 69 20 145/84 (104) 91 Room Air 05/02/17 20:00 Room Air 05/02/17 19:28 36.7 62 20 147/88 (107) 98 Room Air Physical Exam General Appearance: WD/WN, no apparent distress, + obese (sitting in chair) Eyes: normal inspection, sclerae normal ENT: hearing grossly normal Neck: trachea midline Respiratory/Chest: lungs clear, normal breath sounds, no respiratory distress, no accessory muscle use Cardiovascular: regular rate, rhythm, no gallop, no murmur, + pertinent finding (trace pitting edema legs bilat to knees) Abdomen: normal bowel sounds, non tender, soft Extremities: + pertinent finding (left lower ext in knee immobilizer, RUE in shoulder sling) Neurologic/Psychiatric: alert, normal mood/affect Skin: normal color, warm/dry, + rash Laboratory Results Last 24 Hours Test 05/02/17 16:44 05/02/17 20:01 05/03/17 06:01 05/03/17 07:33 Bedside Glucose 128 mg/dl 121 mg/dl 127 mg/dl White Blood Count 4.48 K/uL Red Blood Count 3.10 M/uL Hemoglobin 9.2 g/dL Hematocrit 28.9 % Mean Corpuscular Volume 93.2 fL Mean Corpuscular Hemoglobin 29.7 pg Mean Corpuscular Hemoglobin Concent 31.8 g/dl RDW Standard Deviation 54.7 fL RDW Coefficient of Variation 16.0 % Platelet Count 300 K/uL Mean Platelet Volume 10.6 fL Sodium Level 135 mmol/L Potassium Level 4.1 mmol/L Chloride Level 104 mmol/L Carbon Dioxide Level 25 mmol/L Anion Gap 6.0 mmol/L Blood Urea Nitrogen 18 mg/dl Creatinine 0.78 mg/dl Est Creatinine Clear Calc Drug Dose 97.6 ml/min Estimated GFR () 99.9 Estimated GFR (Non- 86.2 BUN/Creatinine Ratio 22.5 Random Glucose 112 mg/dl Calcium Level 8.7 mg/dl Magnesium Level 1.1 mg/dl Test 05/03/17 08:45 05/03/17 11:10 Stool Occult Blood NEGATIVE Bedside Glucose 122 mg/dl Assessment and Plan This pt is a 56 year old woman with a h/o PAFib/flutter on Xarelto, HTN, HL, obesity, VALERIE, 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 Acute renal failure w/ hyponatremia, hypotension, hyperkalemia-likely secondary to recent start on Dyazide,lisinopril in setting of acute GI illness with dehydration. Also was on chronic Bactrim DS. 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 K+ normal now as well, Na+ also normalized from 123 to 135 over 2 days' time. Renal US normal, CPK normal - Follow PRP - Hold nephrotoxic agents and renally dose medications as appropriate -holding metformin but can likely restart on discharge Abnormal UA: - UCx w/ >3 organisms - Asymptomatic- will hold off on any abx treatment for now other than doxy for knee N/V/D-was sharing a bathroom with 2 pts with known C. diff at [facility]. C. diff antigen here is negative, Stool cx negative. Completely resolved Acute on chronic anemia- baseline hgb 11.0, now in the 9s. May have had some bleeding with her fractures on admission 2 weeks ago, no obvious bleeding by history. Has never had EGD/Colonoscopy. Hemoccult negative -restarted Xarelto as no obvious bleeding -recommend screening Colonoscopy as outpt -follow CBC -start Zantac for heartburn symptoms, no PPI given possible susceptibility to C. diff Left patellar, right shoulder avulsion fracture: - PT/OT consultation - L knee x-ray- unchanged - Pain control w/ Morphine PRN, Tramadol PRN, Tylenol PRN T2DM- last hgbA1c 5.7% in 04/2017: - Hold Metformin while patient - BSG ACHS and ISS H/o chronic osteomyelitis Right TKA- follows w/ Dr. Cyr: - Last f/u in Mar 2017 which stated to continue IV Dapto x4 weeks -Appreciate ID consult here--> changed po Bactrim to doxycycline Hypothyroidism-recently diagnosed with TSH 17 last admit. TSH now down to 11 after starting levothyroxine -continue Synthroid 50 mcg and repeat TSH in 4 weeks H/o paroxysmal a.fib/flutter, HLD, HTN: was bradycardic in 40s on admission here , amiodarone and Toprol XL were held initially Cardiology consult appreciated. AMiodarone restarted, rates remain in 60s-70s, NSR - cont Amiodarone 200mg bid as per Cardio recommendation -restart Toprol XL at lower dose of 50mg daily (home dose was 200mg) -continue Xarelto for CVA prevention - Continue Lipitor -continue Mag-Ox supplement but decreased to once daily in case contributing to diarrhea Hypomagnesemia-severe, Mg 1.1 today -replaced with IV and po mag -follow Mag levels Anxiety, depression: Continue Wellbutrin but changed to home dose is actually XL (not SR version as originally in med rec), Lexapro, Ativan PRN GI prophylaxis: No PPI due to possible c.diff infection,start Zantac DVT prophylaxis: Xarelto Code status: LEVEL I, FULL Dispo: From [place]- does NOT want to return there- PT/OT and CM consulted- considering [facility]-is completely stable and ready for discharge at anytime
[2017-05-03 19:42] VITALS: BP 152/93; PULSE 59; TEMP 36.7; O2SAT 95
[2017-05-03] MEDS: LORAZEPAM 0.5 MG TAB PO PRN (20:28)
[2017-05-03] MEDS: ATORVASTATIN 40 MG TAB PO SCH (20:32)
[2017-05-03] MEDS: ESCITALOPRAM OXALATE 10 MG TAB PO SCH (20:32)
[2017-05-03] MEDS: MONTELUKAST SOD 10 MG TAB PO SCH (20:32)
[2017-05-03 22:55] VITALS: BP 154/92; PULSE 66; TEMP 36.8; O2SAT 92
[2017-05-04] MEDS: ACETAMINOPHEN 500 MG TAB PO PRN ×2 (00:45→09:43)
[2017-05-04 04:28] VITALS: BP 138/87; PULSE 59; TEMP 36.5; O2SAT 93
[2017-05-04] MEDS: LEVOTHYROXINE 50 MCG TAB PO SCH (06:11)
[2017-05-04 06:22] LABS: HEMATOCRIT 28.9 % (37-47); HEMOGLOBIN 9.2 g/dL (12.0-16.0); MEAN CELL VOLUME 93.8 fL (80-100); MEAN CORPUSCULAR HEMOGLOBIN 29.9 pg (25-34); MEAN CORPUSCULAR HGB CONC 31.8 g/dl (32-36); MEAN PLATELET VOLUME 9.9 fL (7.4-10.4); PLATELET COUNT 302 K/uL (130-400); RED CELL DISTRIBUTION WIDTH CV 16.1 % (11.5-14.5); RED CELL DISTRIBUTION WIDTH SD 55.5 fL (36.4-46.3); WHITE BLOOD COUNT 4.69 K/uL (4.8-10.8)
[2017-05-04 06:58] LABS: CREATININE 0.71 mg/dl (0.60-1.20); POTASSIUM 4.3 mmol/L (3.5-5.1)
[2017-05-04 07:25] VITALS: BP 169/93; PULSE 61; TEMP 36.3; O2SAT 93
[2017-05-04] MEDS: DOXYCYCLINE HYCLATE 100 MG CAP PO SCH ×2 (07:37→20:35)
[2017-05-04] MEDS: RANITIDINE HCL 150 MG TAB PO SCH ×2 (07:37→20:35)
[2017-05-04] MEDS: MAGNESIUM OXIDE 400 MG TAB PO SCH ×2 (07:38→20:35)
[2017-05-04] MEDS: CHOLECALCIFEROL 1000 INTER.UNIT TAB PO SCH (07:38)
[2017-05-04] MEDS: CYANOCOBALAMIN 500 MCG TAB (VIT B-12) PO SCH (07:38)
[2017-05-04] MEDS: INSULIN ASPART 100 UNITS/ML 3 ML PEN SC SCH ×4 (07:39→20:34)
[2017-05-04] MEDS: BuPROPion XL 150 MG TABCR PO SCH (07:39)
[2017-05-04] MEDS: RIVAROXABAN 20 MG TAB PO SCH (07:39)
[2017-05-04] MEDS: FLUTICASONE/SALMETEROL 250/50 (ADVAIR) 14 PUFF/1 INHALER INH SCH ×2 (07:40→20:34)
[2017-05-04] MEDS: AMIODARONE 200 MG TAB PO SCH ×2 (08:15→20:34)
[2017-05-04] MEDS ORDERED: METOPROLOL SUCC 50MG EXT REL TAB PO SCH (09:00)
[2017-05-04] MEDS: MAGNESIUM SULFATE 1GM / D5W 1 GM in PREMIXED IN D5W 100 ML IV SCH ×2 (09:38→10:44)
[2017-05-04 11:11] VITALS: BP 151/95; PULSE 55; TEMP 36.5; O2SAT 98
[2017-05-04 15:11] VITALS: BP 147/89; PULSE 61; TEMP 36.7; O2SAT 97
[2017-05-04 19:24] VITALS: BP 141/81; PULSE 60; TEMP 36.8; O2SAT 95
[2017-05-04] MEDS: ESCITALOPRAM OXALATE 10 MG TAB PO SCH (20:34)
[2017-05-04] MEDS: ATORVASTATIN 40 MG TAB PO SCH (20:34)
[2017-05-04] MEDS: MONTELUKAST SOD 10 MG TAB PO SCH (20:35)
[2017-05-04] MEDS: TRAMADOL HCL 50 MG TAB PO PRN (20:41)
--- NOTE | 2017-05-04 20:43 | Infectious Disease Progress Nt ---
Progress Note Date of Service May 04, 2017. Subjective Pt evaluation today including: conversation w/ patient, physical exam, chart review, lab review, review of studies, conversation w/ review consultant, review of inpatient medication list Patient feeling better today. Denies nausea, vomiting, or diarrhea. Remains afebrile. Renal function returning to normal. All Other Systems: Reviewed and Negative Medications Current Inpatient Medications Medications (Trade) Dose Ordered Sig/Flash Route Start Time Stop Time Status Last Admin Dose Admin Morphine Sulfate (MoRPHine SULFATE INJ) 2 mg Q4H PRN IV 04/30/17 16:30 05/14/17 16:29 05/01/17 10:15 2 MG Tramadol HCl (Ultram Tab) 25 mg Q4H PRN PO 04/30/17 16:30 05/30/17 16:29 05/04/17 20:41 25 MG Acetaminophen (Tylenol Tab) 1,000 mg Q8 PRN PO 04/30/17 16:30 05/30/17 16:29 05/04/17 09:43 1,000 MG Ondansetron HCl (Zofran Inj) 4 mg Q6H PRN IV 04/30/17 16:45 05/30/17 16:44 Atorvastatin Calcium (Lipitor Tab) 40 mg QPM PO 04/30/17 21:00 05/30/17 20:59 05/04/17 20:34 40 MG Cholecalciferol (Vitamin D Tab) 1,000 inter.unit DAILY PO 05/01/17 09:00 05/31/17 08:59 05/04/17 07:38 1,000 INTER.UNIT Cyanocobalamin (Vitamin B-12 Tab) 1,000 mcg DAILY PO 05/01/17 09:00 05/31/17 08:59 05/04/17 07:38 1,000 MCG Escitalopram Oxalate (Lexapro Tab) 10 mg HS PO 04/30/17 21:00 05/30/17 20:59 05/04/17 20:34 10 MG Salmeterol Xinafoate/ Fluticasone (Advair Diskus 250/50 Inh) 1 puff BID INH 04/30/17 21:00 05/30/17 20:59 05/04/17 20:34 1 PUFF Levothyroxine Sodium (Synthroid Tab) 50 mcg DAILYBB PO 05/01/17 06:30 05/31/17 06:29 05/04/17 06:11 50 MCG Lorazepam (Ativan Tab) 0.25 mg BID PRN PO 04/30/17 17:00 05/30/17 16:59 05/03/17 20:28 0.25 MG Montelukast Sodium (Singulair Tab) 10 mg HS PO 05/01/17 09:00 05/31/17 08:59 05/04/17 20:35 10 MG Ondansetron HCl (Zofran Tab) 4 mg Q6H PRN PO 04/30/17 17:00 05/30/17 16:59 Rivaroxaban (Xarelto Tab) 20 mg DAILY PO 05/01/17 09:00 05/31/17 08:59 Future hold 05/04/17 07:39 20 MG Insulin Aspart (novoLOG ASPART) SLIDING SCALE If C... ACHS SC 04/30/17 21:00 05/30/17 20:59 05/02/17 12:41 1 UNITS Glucose (Glucose 40% Gel) 15-30 GRAMS 15 GRAMS... UD PRN PO 04/30/17 17:30 05/30/17 17:29 Glucose (Glucose Chew Tab) 4-8 Tablets 4 Tabl... UD PRN PO 04/30/17 17:30 05/30/17 17:29 Dextrose (Dextrose 50% 50ML Syringe) 25-50ML OF 50% DW IV FOR... UD PRN IV 04/30/17 17:30 05/30/17 17:29 Glucagon (Glucagon Inj) 1 mg UD PRN SQ 04/30/17 17:30 05/30/17 17:29 Miconazole Nitrate (Desenex Powder) 1 appln BID PRN EXT 04/30/17 18:00 05/30/17 17:59 Doxycycline Hyclate (Vibramycin Cap) 100 mg BID PO 05/01/17 21:00 05/31/17 20:59 05/04/17 20:35 100 MG Amiodarone HCl (Cordarone Tab) 200 mg BID PO 05/02/17 21:00 06/01/17 20:59 05/04/17 20:34 200 MG Bupropion HCl (Wellbutrin-Xl Tab) 150 mg QAM PO 05/03/17 09:00 06/02/17 08:59 05/04/17 07:39 150 MG Ranitidine HCl (zANTac TAB) 150 mg BID PO 05/02/17 21:00 06/01/17 20:59 05/04/17 20:35 150 MG Magnesium Oxide (Mag-Ox Tab) 400 mg BID PO 05/04/17 21:00 05/30/17 20:59 05/04/17 20:35 400 MG Metoprolol Succinate (Toprol Xl Tab) 75 mg QAM PO 05/05/17 09:00 06/03/17 08:59 Objective Vital Signs Date Time Temp Pulse Resp B/P (MAP) Pulse Ox O2 Delivery O2 Flow Rate FiO2 05/04/17 19:24 36.8 60 20 141/81 (101) 95 Room Air 05/04/17 15:15 Room Air 05/04/17 15:11 36.7 61 18 147/89 (108) 97 Room Air 05/04/17 12:00 Room Air 05/04/17 11:11 36.5 55 18 151/95 (113) 98 Room Air 05/04/17 08:00 Room Air 05/04/17 07:25 36.3 61 18 169/93 (118) 93 Room Air 05/04/17 04:28 36.5 59 18 138/87 (104) 93 Room Air 05/04/17 04:00 Room Air 05/04/17 00:00 Room Air 05/03/17 22:55 36.8 66 20 154/92 (112) 92 Room Air Physical Exam General Appearance: WD/WN, no apparent distress, + obese Eyes: normal inspection, sclerae normal ENT: normal ENT inspection, pharynx normal Neck: supple, no adenopathy, thyroid normal, trachea midline Respiratory/Chest: chest non-tender, lungs clear, normal breath sounds, no respiratory distress Cardiovascular: no gallop, no murmur, + irregularly irregular, + normal peripheral pulses Abdomen: normal bowel sounds, non tender, soft, no organomegaly Extremities: non-tender, no calf tenderness Neurologic/Psychiatric: alert, oriented x 3 Skin: normal color, warm/dry, no rash Lymphatic: no adenopathy Laboratory Results Last 24 Hours Test 05/04/17 05:52 05/04/17 07:36 05/04/17 11:26 05/04/17 16:42 White Blood Count 4.69 K/uL Red Blood Count 3.08 M/uL Hemoglobin 9.2 g/dL Hematocrit 28.9 % Mean Corpuscular Volume 93.8 fL Mean Corpuscular Hemoglobin 29.9 pg Mean Corpuscular Hemoglobin Concent 31.8 g/dl RDW Standard Deviation 55.5 fL RDW Coefficient of Variation 16.1 % Platelet Count 302 K/uL Mean Platelet Volume 9.9 fL Sodium Level 136 mmol/L Potassium Level 4.3 mmol/L Chloride Level 105 mmol/L Carbon Dioxide Level 26 mmol/L Anion Gap 5.0 mmol/L Blood Urea Nitrogen 13 mg/dl Creatinine 0.71 mg/dl Est Creatinine Clear Calc Drug Dose 107.0 ml/min Estimated GFR () 111.9 Estimated GFR (Non- 96.6 BUN/Creatinine Ratio 18.1 Random Glucose 104 mg/dl Calcium Level 9.0 mg/dl Magnesium Level 1.5 mg/dl Bedside Glucose 112 mg/dl 123 mg/dl 117 mg/dl Test 05/04/17 20:11 Bedside Glucose 106 mg/dl Assessment and Plan 56 yo female with chronically infected right TKA with MSSA, on suppressive therapy with Bactrim, recent left great toe osteomyelitis s/p prolonged daptomycin Rx, now with GABRIELA with possible gastrointestinal infection. Would hold Bactrim given GABRIELA, substitute doxycycline 100 mg bid.
[2017-05-04 23:42] VITALS: BP 143/80; PULSE 65; TEMP 36.6; O2SAT 94
--- NOTE | 2017-05-04 23:59 | Hospitalist Progress Note ---
Hospitalist Progress Note Date of Service May 04, 2017. Subjective Pt evaluation today including: conversation w/ patient Feeling very well. NO N/V/D. Tele with heart rate in 60s NSR Constitutional: No fever Respiratory: No shortness of breath Cardiovascular: No chest pain All Other Systems: Reviewed and Negative Objective Vital Signs Date Time Temp Pulse Resp B/P (MAP) Pulse Ox O2 Delivery O2 Flow Rate FiO2 05/04/17 23:42 36.6 65 18 143/80 (101) 94 Room Air 05/04/17 20:30 Room Air 05/04/17 19:24 36.8 60 20 141/81 (101) 95 Room Air 05/04/17 15:15 Room Air 05/04/17 15:11 36.7 61 18 147/89 (108) 97 Room Air 05/04/17 12:00 Room Air 05/04/17 11:11 36.5 55 18 151/95 (113) 98 Room Air 05/04/17 08:00 Room Air 05/04/17 07:25 36.3 61 18 169/93 (118) 93 Room Air 05/04/17 04:28 36.5 59 18 138/87 (104) 93 Room Air 05/04/17 04:00 Room Air 05/04/17 00:00 Room Air Physical Exam General Appearance: WD/WN, no apparent distress, + obese Eyes: normal inspection, sclerae normal ENT: hearing grossly normal Neck: trachea midline Respiratory/Chest: lungs clear, normal breath sounds, no respiratory distress, no accessory muscle use Cardiovascular: regular rate, rhythm, no edema, no gallop, no murmur Abdomen: normal bowel sounds, non tender, soft Extremities: no calf tenderness, + pertinent finding (LLE in knee immobilizer) Neurologic/Psychiatric: alert, normal mood/affect, oriented x 3 Skin: normal color, warm/dry, no rash Laboratory Results Last 24 Hours Test 05/04/17 05:52 05/04/17 07:36 05/04/17 11:26 05/04/17 16:42 White Blood Count 4.69 K/uL Red Blood Count 3.08 M/uL Hemoglobin 9.2 g/dL Hematocrit 28.9 % Mean Corpuscular Volume 93.8 fL Mean Corpuscular Hemoglobin 29.9 pg Mean Corpuscular Hemoglobin Concent 31.8 g/dl RDW Standard Deviation 55.5 fL RDW Coefficient of Variation 16.1 % Platelet Count 302 K/uL Mean Platelet Volume 9.9 fL Sodium Level 136 mmol/L Potassium Level 4.3 mmol/L Chloride Level 105 mmol/L Carbon Dioxide Level 26 mmol/L Anion Gap 5.0 mmol/L Blood Urea Nitrogen 13 mg/dl Creatinine 0.71 mg/dl Est Creatinine Clear Calc Drug Dose 107.0 ml/min Estimated GFR () 111.9 Estimated GFR (Non- 96.6 BUN/Creatinine Ratio 18.1 Random Glucose 104 mg/dl Calcium Level 9.0 mg/dl Magnesium Level 1.5 mg/dl Bedside Glucose 112 mg/dl 123 mg/dl 117 mg/dl Test 05/04/17 20:11 Bedside Glucose 106 mg/dl Assessment and Plan This pt is a 56 year old woman with a h/o PAFib/flutter on Xarelto, HTN, HL, obesity, VALERIE, 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 Acute renal failure w/ hyponatremia, hypotension, hyperkalemia-likely secondary to recent start on Dyazide,lisinopril in setting of acute GI illness with dehydration. Also was on chronic Bactrim DS. 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 K+ normal now as well, Na+ also normalized from 123 to 135 over 2 days' time. Renal US normal, CPK normal - Follow PRP - Hold nephrotoxic agents and renally dose medications as appropriate -holding metformin but can likely restart on discharge Abnormal UA: - UCx w/ >3 organisms - Asymptomatic- will hold off on any abx treatment for now other than doxy for knee N/V/D-was sharing a bathroom with 2 pts with known C. diff at [facility]. C. diff antigen here is negative, Stool cx negative. Completely resolved Acute on chronic anemia- baseline hgb 11.0, now in the 9s. May have had some bleeding with her fractures on admission 2 weeks ago, no obvious bleeding by history. Has never had EGD/Colonoscopy. Hemoccult negative -restarted Xarelto as no obvious bleeding -recommend screening Colonoscopy as outpt -follow CBC -start Zantac for heartburn symptoms, no PPI given possible susceptibility to C. diff Left patellar, right shoulder avulsion fracture: - PT/OT consultation - L knee x-ray- unchanged - Pain control w/ Morphine PRN, Tramadol PRN, Tylenol PRN -continue RUE in shoulder sling, LLE in knee immobilizer -needs rehab placement -f/u with Ortho in 1 week as planned T2DM- last hgbA1c 5.7% in 04/2017: - Hold Metformin while patient - BSG ACHS and ISS H/o chronic osteomyelitis Right TKA- follows w/ Dr. Cry: - Last f/u in Mar 2017 which stated to continue IV Dapto x4 weeks -Appreciate ID consult here--> changed po Bactrim to doxycycline Hypothyroidism-recently diagnosed with TSH 17 last admit. TSH now down to 11 after starting levothyroxine -continue Synthroid 50 mcg and repeat TSH in 4 weeks H/o paroxysmal a.fib/flutter, HLD, HTN: was bradycardic in 40s on admission here , amiodarone and Toprol XL were held initially Cardiology consult appreciated. AMiodarone restarted, rates remain in 60s-70s, NSR - cont Amiodarone 200mg bid as per Cardio recommendation -restarted Toprol XL at lower dose of 50mg daily (home dose was 200mg)--> increase to 75mg daily for elevated BPs, follow rates on tele -continue Xarelto for CVA prevention - Continue Lipitor -continue Mag-Ox supplement and increase back to bid Hypomagnesemia-severe, Mg 1.1 --> no wimproved but remains low at 1.6 -replaced with IV and po mag -follow Mag levels Anxiety, depression: Continue Wellbutrin but changed to home dose is actually XL (not SR version as originally in med rec), Lexapro, Ativan PRN GI prophylaxis: No PPI due to possible c.diff infection,started Zantac DVT prophylaxis: Xarelto Code status: LEVEL I, FULL Dispo: From [facility]- does NOT want to return there- PT/OT and CM consulted- awaiting auth for [facility]-is completely stable and ready for discharge at anytime
[2017-05-05] MEDS: ACETAMINOPHEN 500 MG TAB PO PRN ×2 (00:37→09:44)
[2017-05-05 03:50] VITALS: BP 142/86; PULSE 60; TEMP 36.6; O2SAT 98
[2017-05-05] MEDS: LEVOTHYROXINE 50 MCG TAB PO SCH (05:26)
[2017-05-05] MEDS: INSULIN ASPART 100 UNITS/ML 3 ML PEN SC SCH ×2 (06:30→11:46)
[2017-05-05 06:57] LABS: HEMATOCRIT 29.1 % (37-47); HEMOGLOBIN 9.1 g/dL (12.0-16.0); MEAN CELL VOLUME 94.2 fL (80-100); MEAN CORPUSCULAR HEMOGLOBIN 29.4 pg (25-34); MEAN CORPUSCULAR HGB CONC 31.3 g/dl (32-36); MEAN PLATELET VOLUME 9.8 fL (7.4-10.4); PLATELET COUNT 310 K/uL (130-400); RED CELL DISTRIBUTION WIDTH SD 54.9 fL (36.4-46.3); WHITE BLOOD COUNT 4.69 K/uL (4.8-10.8)
[2017-05-05 07:20] VITALS: BP 154/92; PULSE 63; TEMP 36.7; O2SAT 93
[2017-05-05 07:24] LABS: CALCIUM 8.7 mg/dl (8.5-10.1); CREATININE 0.71 mg/dl (0.60-1.20); POTASSIUM 4.2 mmol/L (3.5-5.1)
[2017-05-05] MEDS: CHOLECALCIFEROL 1000 INTER.UNIT TAB PO SCH (08:00)
[2017-05-05] MEDS: CYANOCOBALAMIN 500 MCG TAB (VIT B-12) PO SCH (08:01)
[2017-05-05] MEDS: AMIODARONE 200 MG TAB PO SCH (08:01)
[2017-05-05] MEDS: RANITIDINE HCL 150 MG TAB PO SCH (08:01)
[2017-05-05] MEDS: DOXYCYCLINE HYCLATE 100 MG CAP PO SCH (08:01)
[2017-05-05] MEDS: RIVAROXABAN 20 MG TAB PO SCH (08:03)
[2017-05-05] MEDS: FLUTICASONE/SALMETEROL 250/50 (ADVAIR) 14 PUFF/1 INHALER INH SCH (08:03)
[2017-05-05] MEDS: BuPROPion XL 150 MG TABCR PO SCH (08:03)
[2017-05-05] MEDS: MAGNESIUM OXIDE 400 MG TAB PO SCH (08:04)
[2017-05-05] MEDS ORDERED: METOPROLOL SUCC 50MG EXT REL TAB PO SCH (09:00)
[2017-05-05] MEDS: MAGNESIUM SULFATE 1GM / D5W 1 GM in PREMIXED IN D5W 100 ML IV SCH ×3 (09:31→12:11)
[2017-05-05] MEDS: LORAZEPAM 0.5 MG TAB PO PRN (09:43)
[2017-05-05 14:44] VITALS: BP 139/87; PULSE 60; TEMP 36.5; O2SAT 94
[2017-05-05 16:47] VITALS: BP 139/87; PULSE 60; TEMP 36.5; O2SAT 94
[2017-05-05] MEDS ORDERED: ULT50X PO (17:03)
[2017-05-05] MEDS ORDERED: TPRSR50 PO (17:03)
[2017-05-05] MEDS ORDERED: MCTP EXT (17:03)
[2017-05-05] MEDS ORDERED: DXY100 PO (17:03)
[2017-05-05] MEDS ORDERED: LORA-741 PO (17:03)
[2017-05-05] MEDS ORDERED: ZNT150 PO (17:03)
[2017-05-05] MEDS ORDERED: CRD200 PO (17:03)
--- NOTE | 2017-05-05 17:10 | Discharge Instructions ---
Discharge Instructions Date of Service May 05, 2017. Admission Reason for Admission: Acute Renal Failure Discharge Discharge Diagnosis / Problem: Acute renal failure, bradycardia Discharge Goals Goal(s): Improve disease control, Diagnostic testing, Therapeutic intervention Activity Recommendations Activity Level: Assistance Required Therapies: Physical Therapy, Occupational Therapy Weightbearing Status: Left partial RUE in sling until seen by Ortho. LLE in knee immobilizer . 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 Acute renal failure w/ hyponatremia, hypotension, hyperkalemia-likely secondary to recent start on Dyazide,lisinopril in setting of acute GI illness with dehydration. Also was on chronic Bactrim DS. 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 K+ normal now as well, Na+ also normalized from 123 to 135 over 2 days' time. Renal US normal, CPK normal - Follow PRP - Hold nephrotoxic agents and renally dose medications as appropriate -holding metformin but can restart on discharge Abnormal UA: - UCx w/ >3 organisms - Asymptomatic- will hold off on any abx treatment for now other than doxy for knee N/V/D-was sharing a bathroom with 2 pts with known C. diff at [facility]. C. diff antigen here is negative, Stool cx negative. Completely resolved Acute on chronic anemia- baseline hgb 11.0, now in the 9s. May have had some bleeding with her fractures on admission 2 weeks ago, no obvious bleeding by history. Has never had EGD/Colonoscopy. Hemoccult negative -restarted Xarelto as no obvious bleeding -recommend screening Colonoscopy as outpt -follow CBC -start Zantac for heartburn symptoms, no PPI given possible susceptibility to C. diff Left patellar, right shoulder avulsion fracture: - PT/OT consultation - L knee x-ray- unchanged - Pain control w/ Morphine PRN, Tramadol PRN, Tylenol PRN -continue RUE in shoulder sling, LLE in knee immobilizer -needs rehab placement -f/u with Ortho in 1 week as planned T2DM- last hgbA1c 5.7% in 04/2017: - Hold Metformin while patient, restart now - BSG ACHS and ISS H/o chronic osteomyelitis Right TKA- follows w/ Dr. Cyr: - Last f/u in Mar 2017 which stated to continue IV Dapto x4 weeks -Appreciate ID consult here--> changed po Bactrim to doxycycline -f/u as outpt with Dr. Cyr of ID Hypothyroidism-recently diagnosed with TSH 17 last admit. TSH now down to 11 after starting levothyroxine -continue Synthroid 50 mcg and repeat TSH in 4 weeks H/o paroxysmal a.fib/flutter, HLD, HTN: was bradycardic in 40s on admission here , amiodarone and Toprol XL were held initially Cardiology consult appreciated. AMiodarone restarted, rates remain in 60s-70s, NSR - cont Amiodarone 200mg but lowered dose to once daily as per Cardio recommendation -restarted Toprol XL at lower dose of 75mg daily (home dose was 200mg) -continue Xarelto for CVA prevention - Continue Lipitor -continue Mag-Ox supplement bid Hypomagnesemia-severe, Mg 1.1 --> now improved but remains low at 1.5--> replaced again today with IV magnesium -replaced with IV and po mag -follow Mag levels as outpatient in 2-3 days Anxiety, depression: Continue Wellbutrin but changed to home dose is actually XL (not SR version as originally in med rec), Lexapro, Ativan PRN GI prophylaxis: No PPI due to possible c.diff infection,started Zantac DVT prophylaxis: Xarelto Code status: LEVEL I, FULL Dispo: to SNF today Current Hospital Diet Patient's current hospital diet: Renal Diet, Diabetes Type 2 Diet Discharge Diet Recommended Diet: AHA Diet (Heart Healthy), Diabetes Type 2 Diet Procedures Procedures Performed: Renal US Knee xray Pending Studies Studies pending at discharge: no Physician Orders On Transfer Special Precautions: Fall risk Dressing Changes: none Vital Signs: Routine Weigh: Routine Additional Orders: Check BMP, Magnesium in 2-3 days POLST Discussion: Not Applicable Laboratory Results Last 24 Hours Test 05/04/17 20:11 05/05/17 06:31 05/05/17 07:35 05/05/17 11:35 Bedside Glucose 106 mg/dl 111 mg/dl 122 mg/dl White Blood Count 4.69 K/uL Red Blood Count 3.09 M/uL Hemoglobin 9.1 g/dL Hematocrit 29.1 % Mean Corpuscular Volume 94.2 fL Mean Corpuscular Hemoglobin 29.4 pg Mean Corpuscular Hemoglobin Concent 31.3 g/dl RDW Standard Deviation 54.9 fL RDW Coefficient of Variation 16.0 % Platelet Count 310 K/uL Mean Platelet Volume 9.8 fL Sodium Level 138 mmol/L Potassium Level 4.2 mmol/L Chloride Level 105 mmol/L Carbon Dioxide Level 25 mmol/L Anion Gap 8.0 mmol/L Blood Urea Nitrogen 11 mg/dl Creatinine 0.71 mg/dl Est Creatinine Clear Calc Drug Dose 107.5 ml/min Estimated GFR () 111.9 Estimated GFR (Non- 96.6 BUN/Creatinine Ratio 15.7 Random Glucose 105 mg/dl Calcium Level 8.7 mg/dl Magnesium Level 1.5 mg/dl Hemoglobin A1c Test 04/17/17 05:31 Range/Units Estimated Average Glucose 117 mg/dl Hemoglobin A1c 5.7 H 4.5-5.6 % Lipid Panel Test 04/22/17 06:41 Range/Units Triglycerides Level 95 0-150 mg/dl Cholesterol Level 124 0-200 mg/dl HDL Cholesterol 51 mg/dl Cholesterol/HDL Ratio 2.4 LDL Cholesterol, Calculated 54 mg/dl Medical Emergencies . Who to Call and When: Medical Emergencies: If at any time you feel your situation is an emergency, please call 911 immediately. . Non-Emergent Contact Non-Emergency issues call your: Primary Care Provider, Kiss Setter Hand Call Non-Emergent contact if: you have a fever, you have any medication questions . . "Provider Documentation" section prepared by Nicky Vaughn. . Core Measure Problem Core Measures: None
--- NOTE | 2017-05-05 22:06 | Discharge Summary ---
Discharge Summary Date of Service May 05, 2017. 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 Chronic right knee infection s/p TKA on therapeutic assistant antibiotics Hypothyroidism Anxiety/depression Hyponatremia Hypomagnesemia Hypotension Hyperkalemia Nausea with vomiting and diarrhea Acute on chronic anemia GERD Left patellar fracture Right shoulder avulsion fracture T2DM Immunizations: Have You Had Influenza Vaccine: No History of Tetanus Vaccine?: Yes History of Pneumococcal: Yes History of Hepatitis B Vaccine: No Procedures: Renal US Knee xray Consultations: Cardiology Infectious Disease Medication Reconciliation New Medications: Doxycycline Hyclate (Doxycycline Hyclate) 100 Mg Cap 100 MG PO BID for 30 Days Metoprolol Succinate (Metoprolol Succinate ER) 50 Mg Tabcr 75 MG PO QAM for 30 Days Miconazole Nitrate (Desenex Shake Powder) 43 Appln/43 Gm Powd 1 APPLN EXT BID PRN for Affected Skin Folds for 30 Days Ranitidine HCl (Ranitidine HCl) 150 Mg Tab 150 MG PO BID for 30 Days, #60 TAB Tramadol HCl (Tramadol HCl) 50 Mg Tab 25 MG PO Q4H PRN for Pain, #10 TAB Changed Medications: Amiodarone HCl (Amiodarone HCl) 200 Mg Tab 200 MG PO DAILY for 30 Days (Changed from: BID) Continued Medications: Acetaminophen (Tylenol) 325 Mg Tab 650 MG PO q 6 hours for Pain, TAB Atorvastatin (Lipitor) 40 Mg Tab 40 MG PO QPM, TAB Bupropion Hcl (Wellbutrin Xl) 150 Mg Tab 1 TAB PO QAM for 30 Days, #30 TAB 2 Refills Cholecalciferol (Vitamin D3) 1,000 Unit Tab 1 TAB PO DAILY for 30 Days, #30 TAB 5 Refills Cyanocobalamin (Vitamin B-12) 1,000 Mcg Tab 1000 MCG PO DAILY, TAB Escitalopram (Lexapro) 10 Mg Tab 10 MG PO HS, 0 Refills Fluticasone Prop/Salmeterol (Advair Diskus 250/50 60 Dose) 1 Ea Aerp 1 PUFF INH BID, INHALER Levothyroxine Sodium (Levothyroxine Sodium) 50 Mcg Tab 1 TAB PO DAILY for 30 Days, #30 TAB 5 Refills Lorazepam (Ativan) 0.5 Mg Tab 0.25-0.5 MG PO BID PRN for Anxiety/Agitation for 3 Days, #3 TAB (This prescription has been renewed) Magnesium Oxide (Mag-Ox) 400 Mg Tab 400 MG PO BID, TAB Metformin Hcl (Glucophage) 1,000 Mg Tab 1000 MG PO BID, TAB Montelukast Sodium (Montelukast Sodium) 10 Mg Tab 1 TAB PO DAILY for 90 Days, #90 TAB 3 Refills Ondansetron Hcl (Zofran) 4 Mg Tab 4 MG PO Q6H PRN for Nausea, TAB Rivaroxaban (Xarelto) 20 Mg Tab 1 TAB PO DAILY for 30 Days, #30 TAB 11 Refills Discontinued Medications: Metoprolol Succinate (Toprol Xl) 100 Mg Tab 200 MG PO DAILY for 30 Days, #60 TAB Oxycodone/Acetaminophen 5MG/325MG (Percocet 5MG/325MG) Tab 1 TABLET PO Q6H PRN for Pain, TAB PAIN Discharge Exam Pt feeling well. No N/V/D. Tele with rates in high 50s-low 60s. Had a headache earlier that is gone with drinking iced tea and tylenol, likely caffeine withdrawal as she usually has coffee daily. Physical Exam General Appearance: WD/WN, no apparent distress, + obese Eyes: normal inspection, sclerae normal ENT: hearing grossly normal Neck: trachea midline Respiratory/Chest: lungs clear, normal breath sounds, no respiratory distress, no accessory muscle use Cardiovascular: regular rate, rhythm, no edema, no gallop, no murmur Abdomen: normal bowel sounds, non tender, soft Extremities: no calf tenderness, + pertinent finding (LLE in knee immobilizer) Neurologic/Psychiatric: alert, normal mood/affect, oriented x 3 Skin: normal color, warm/dry, no rash Review of Systems: Constitutional: No fever Eyes: No problem reported ENT: No problem reported Respiratory: No problem reported Cardiovascular: No problem reported Abdomen: No problem reported Musculoskeletal: + joint pain (rt shoulder, left knee) Neurologic: No problem reported Psychiatric: + anxiety Endocrine: No problem reported Hematologic / Lymphatic: No problem reported Integumentary: No problem reported Hospital Course This pt is a 56 year old woman with a h/o PAFib/flutter on Xarelto, HTN, HL, obesity, VALERIE, 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 Acute renal failure w/ hyponatremia, hypotension, hyperkalemia-likely secondary to recent start on Dyazide,lisinopril in setting of acute GI illness with dehydration. Also was on chronic Bactrim DS. Dyazide and ACEI were stopped within the last 3-5 days prior to admission at [place] and she should remain off of these Bactrim stopped and replaced with Doxy as per ID Renal function completely back to normal after IVFs/NS--> press tender down to 0.71 from 4.93 on admission. K+ normal now as well, Na+ also normalized from 123 to 135 over 2 days' time. Renal US normal, CPK normal - Follow PRP - Hold nephrotoxic agents and renally dose medications as appropriate -holding metformin but can restart on discharge Abnormal UA: - UCx w/ >3 organisms - Asymptomatic- will hold off on any abx treatment for now other than doxy for knee N/V/D-was sharing a bathroom with 2 pts with known C. diff at [place]. C. diff antigen here is negative, Stool cx negative. Completely resolved Acute on chronic anemia- baseline hgb 11.0, now in the 9s. May have had some bleeding with her fractures on admission 2 weeks ago, no obvious bleeding by history. Has never had EGD/Colonoscopy. Hemoccult negative -restarted Xarelto as no obvious bleeding -recommend screening Colonoscopy as outpt -follow CBC -start Zantac for heartburn symptoms, no PPI given possible susceptibility to C. diff Left patellar, right shoulder avulsion fracture: - PT/OT consultation - L knee x-ray- unchanged - Pain control w/ Morphine PRN, Tramadol PRN, Tylenol PRN -continue RUE in shoulder sling, LLE in knee immobilizer -needs rehab placement -f/u with Ortho in 1 week as planned T2DM- last hgbA1c 5.7% in 04/2017: - Hold Metformin while patient, restart now - BSG ACHS and ISS H/o chronic osteomyelitis Right TKA- follows w/ Dr. yCr: - Last f/u in Mar 2017 which stated to continue IV Dapto x4 weeks -Appreciate ID consult here--> changed po Bactrim to doxycycline -f/u as outpt with Dr. Cyr of ID Hypothyroidism-recently diagnosed with TSH 17 last admit. TSH now down to 11 after starting levothyroxine -continue Synthroid 50 mcg and repeat TSH in 4 weeks H/o paroxysmal a.fib/flutter, HLD, HTN: was bradycardic in 40s on admission here , amiodarone and Toprol XL were held initially Cardiology consult appreciated. AMiodarone restarted, rates remain in 60s-70s, NSR - cont Amiodarone 200mg but lowered dose to once daily as per Cardio recommendation -restarted Toprol XL at lower dose of 75mg daily (home dose was 200mg) -continue Xarelto for CVA prevention - Continue Lipitor -continue Mag-Ox supplement bid Hypomagnesemia-severe, Mg 1.1 --> now improved but remains low at 1.5--> replaced again today with IV magnesium -replaced with IV and po mag -follow Mag levels as outpatient in 2-3 days Anxiety, depression: Continue Wellbutrin but changed to home dose is actually XL (not SR version as originally in med rec), Lexapro, Ativan PRN GI prophylaxis: No PPI due to possible c.diff infection,started Zantac DVT prophylaxis: Xarelto Code status: LEVEL I, FULL Dispo: to SNF today Total Time Spent: Greater than 30 minutes This includes examination of the patient, discharge planning, medication reconciliation, and communication with other providers. Discharge Instructions Please refer to the electronic Patient Visit Report (Discharge Instructions) for additional information. Follow-Up with PCP after dc from SNF With Ortho in 1 week With Cardiology within 1-2 weeks Additional Copies To Parveen Fishman M.D.
[2017-05-06] MEDS ORDERED: AMIODARONE 200 MG TAB PO SCH (09:00)
== END 2017-05-05 17:17 | DRG 683 ==
LOC: UNDOADMIN 12:52 → C.MED 12:52
PROVIDERS: ADMIT Internal Medicine; ATTEND Family Medicine
DX: N17.9 Acute kidney failure, unspecified (principal); E87.1 Hypo-osmolality and hyponatremia; I48.92 Unspecified atrial flutter; T84.53XA Infection and inflammatory reaction due to internal right knee prosthesis, initial encounter; M86.9 Osteomyelitis, unspecified; E87.5 Hyperkalemia; I10 Essential (primary) hypertension; E78.00 Pure hypercholesterolemia, unspecified; Z79.01 Long term (current) use of anticoagulants; Z83.3 Family history of diabetes mellitus; Z82.49 Family history of ischemic heart disease and other diseases of the circulatory system; Z79.84 Long term (current) use of oral hypoglycemic drugs; I95.9 Hypotension, unspecified; E86.0 Dehydration; R19.7 Diarrhea, unspecified; R11.10 Vomiting, unspecified; D64.9 Anemia, unspecified; R30.0 Dysuria; E03.9 Hypothyroidism, unspecified; B95.61 Methicillin susceptible Staphylococcus aureus infection as the cause of diseases classified elsewhere; E11.69 Type 2 diabetes mellitus with other specified complication; Y83.1 Surgical operation with implant of artificial internal device as the cause of abnormal reaction of the patient, or of later complication, without mention of misadventure at the time of the procedure

== ENCOUNTER → 2017-04-30 | Outpatient (CLI) | payer OTHER ==
[~2017-04-30] MED LIST changes: -DXY100 PO; -MCTP EXT; -TPRSR50 PO; -ULT50X PO; -ZNT150 PO
[2017-04-30 09:37] LABS: BASO % 0.4 %; BASO ABS # 0.02 K/uL (0-0.2); EOS % 1.3 %; EOS ABS # 0.07 K/uL (0-0.5); HEMATOCRIT 27.1 % (37-47); HEMOGLOBIN 8.8 g/dL (12.0-16.0); IG# 0.01 K/uL (0.00-0.02); LYMPH % 24.5 %; LYMPH ABS # 1.31 K/uL (1.2-3.4); MEAN CELL VOLUME 91.2 fL (80-100); MEAN CORPUSCULAR HEMOGLOBIN 29.6 pg (25-34); MEAN CORPUSCULAR HGB CONC 32.5 g/dl (32-36); MONO ABS # 0.64 K/uL (0.11-0.59); NEUT % 61.6 %; PLATELET COUNT 331 K/uL (130-400); RED CELL DISTRIBUTION WIDTH CV 15.8 % (11.5-14.5); RED CELL DISTRIBUTION WIDTH SD 52.5 fL (36.4-46.3); WHITE BLOOD COUNT 5.35 K/uL (4.8-10.8)
[2017-04-30 10:12] LABS: BLOOD UREA NITROGEN 99 mg/dl (7-18); CALCIUM 8.7 mg/dl (8.5-10.1); CARBON DIOXIDE 19 mmol/L (21-32); CREATININE 5.57 mg/dl (0.60-1.20); GLUCOSE 72 mg/dl (70-99); POTASSIUM 5.4 mmol/L (3.5-5.1); SODIUM 123 mmol/L (136-145)
== END ==
LOC: C.LABCC 08:44
PROVIDERS: ATTEND Internal Medicine
DX: D64.9 Anemia, unspecified (principal); E87.1 Hypo-osmolality and hyponatremia

== ENCOUNTER 2017-08-08 12:20 | Emergency (ER) | payer OTHER ==
[~2017-08-08] VITALS: Ht 160 cm; Wt 104.9 kg
[~2017-08-08 12:20] MED LIST changes: +ACET-1311 PO; -ALBU18002 INH; -BUPR-79 PO; +BUPRTAB PO; -CALC-214 PO; -CETI10TA84 PO; +DXY100 PO; +LEVO50TA6 PO; -LISI-729 PO; +MCTP EXT; -METO200T32 PO; +ONDA4TAB46 PO; -SULF-302 PO; +TPRSR50 PO; -TRIA37.53 PO; +ULT50X PO; +ZNT150 PO
[2017-08-08 12:31] VITALS: Ht 160 cm; Wt 104.9 kg
[2017-08-08] MEDS ORDERED: SULF-302 PO (12:58)
[2017-08-08] MEDS ORDERED: OXYC1TAB3 PO (13:23)
[2017-08-08 13:55] VITALS: BP 150/84; PULSE 60; TEMP 36.7; O2SAT 96
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
== END 2017-08-08 13:56 | disposition home or self-care (01) ==
LOC: C.EDB 12:21 → C.EDA 13:56
DX: T23.201A Burn of second degree of right hand, unspecified site, initial encounter (principal); T23.241A Burn of second degree of multiple right fingers (nail), including thumb, initial encounter; X15.0XXA Contact with hot stove (kitchen), initial encounter; Y92.010 Kitchen of single-family (private) house as the place of occurrence of the external cause; E11.9 Type 2 diabetes mellitus without complications; J45.909 Unspecified asthma, uncomplicated; F32.9 Major depressive disorder, single episode, unspecified; E78.00 Pure hypercholesterolemia, unspecified; N17.9 Acute kidney failure, unspecified; F41.9 Anxiety disorder, unspecified; Z87.891 Personal history of nicotine dependence; Z79.01 Long term (current) use of anticoagulants; Z79.84 Long term (current) use of oral hypoglycemic drugs; Z79.899 Other long term (current) drug therapy; Z88.0 Allergy status to penicillin

== ENCOUNTER 2017-11-08 08:07 | Emergency (ER) | payer OTHER ==
[~2017-11-08] VITALS: Ht 160 cm; Wt 114.4 kg
[~2017-11-08 08:07] MED LIST changes: +BUPR-79 PO; -BUPRTAB PO; -DXY100 PO; -ESCI10TA17 PO; +ESCI1TAB10 PO; -LORA-741 PO; -MCTP EXT; -ONDA4TAB46 PO; +SULF-302 PO; -ULT50X PO; -ZNT150 PO
[2017-11-08 08:11] VITALS: BP 163/80; PULSE 72; TEMP 36.7; O2SAT 98; Ht 160 cm; Wt 114.4 kg
[2017-11-08] MEDS ORDERED: LIDOCAINE/EPINEPHRINE 1% 20 ML VIAL INFIL ONE (08:30)
--- NOTE | 2017-11-08 14:48 | EMERGENCY ROOM VISIT NOTE ---
History First contact with patient: 08:13 Chief Complaint: LACERATION/CUT (SUT/DERMABOND) Stated Complaint: LEFT ANKLE LAC, WONT STOP BLEEDING Nursing Triage Summary: Pt states she is on Xarelto, woke up yesterday morning and left ankle was bleeding- denies falling or injuring herself- unable to get the bleeding to stop. History of Present Illness The patient is a 57 year old female who presents to the Emergency Room with complaints of a bleeding wound on her left ankle. The patient reports that she woke up yesterday morning and noticed bleeding from the ankle. She denies any known injury. She does report a history of frequent leg injuries. The patient is on Xarelto for atrial fibrillation. She rates her discomfort a 4 out of 10. Tetanus immunization is up-to-date. Review of Systems 6 system review was performed and was negative except for pertinent positives and negatives as indicated in history of present illness Past Medical/Surgical History Medical Problems: (1) Abscess or cellulitis of foot (2) Acute renal failure (3) Anxiety (4) Asthma (5) cellulitis (6) Cellulitis of third toe, left (7) Cellulitis of third toe, left (8) Depression (9) Diabetes (10) Diabetic foot infection (11) Hypercholesteremia (12) Hypertension (13) Hypomagnesemia (14) Osteomyelitis (15) Paroxysmal a-fib (16) Patellar fracture Surgical Problems: (1) History of knee replacement procedure of right knee (2) Post-operative state Family History Diabetes mellitus FHx: cancer FHx: heart disease Hypertension Kidney disease Kidney stones Social History Smoking Status: Never Smoker Alcohol Use: none Drug Use: none Marital Status: single Housing Status: lives with family Occupation Status: employed Current/Historical Medications Scheduled Acetaminophen (Tylenol), 650 MG PO q 6 hours Amiodarone HCl (Amiodarone HCl), 200 MG PO DAILY Atorvastatin (Lipitor), 40 MG PO QPM Bupropion (Wellbutrin Sr), 150 MG PO DAILY Cholecalciferol (Vitamin D3), 1,000 MG PO DAILY Cyanocobalamin (Vitamin B-12), 1,000 MCG PO DAILY Escitalopram Oxalate (Lexapro), 20 MG PO DAILY Fluticasone Prop/Salmeterol (Advair Diskus 250/50 60 Dose), 1 PUFF INH DAILY Levothyroxine Sodium (Levothyroxine Sodium), 1 TAB PO DAILY Magnesium Oxide (Mag-Ox), 400 MG PO BID Metformin Hcl (Glucophage), 1,000 MG PO BID Metoprolol Succinate (Metoprolol Succinate ER), 75 MG PO QAM Montelukast Sodium (Montelukast Sodium), 1 TAB PO DAILY Rivaroxaban (Xarelto), 1 TAB PO DAILY Sulfamethoxazole-Trimethoprim (Smz-Tmp Ds), 1 TAB PO BID Physical Exam Vital Signs Date Time Temp Pulse Resp B/P (MAP) Pulse Ox O2 Delivery O2 Flow Rate FiO2 11/08/17 08:11 36.7 72 22 163/80 98 Room Air Physical Exam CONSTITUTIONAL: Healthy and well nourished. Alert and oriented X 3 with positive affect. HEENT: Normocephalic, atraumatic. Pupils equal, round and reactive. NECK: Full active range of motion without discomfort. MUSCULOSKELETAL: Examination of the left ankle region shows a 3.5 cm laceration with mild oozing. No hematoma formation noted. Patient has no worsening pain with plantar or dorsiflexion, or inversion/eversion of the ankle. Pedal pulses are intact. INTEGUMENTARY: No rash or other significant dermatologic conditions noted. NEUROLOGIC: Left foot and toes are sensory intact. Medical Decision & Procedures Procedure Laceration repair was performed under local anesthesia after receiving verbal consent from the patient. Using lidocaine 1% with epinephrine, good local anesthesia was administered. The wound was then peripherally cleansed with iodine, then irrigated with normal saline. In sterile fashion, the wound was approximated using 5-0 nylon simple interrupted sutures. A bacitracin dressing was applied. ED Course Patient history and physical exam were performed. Nurse's notes were reviewed. Vital signs were reviewed and normal. Laceration repair was performed under local anesthesia. The patient was provided additional verbal and written wound care instructions. Ice and elevation for swelling. Tylenol as needed for pain. Suture removal in 12-14 days, or seek reevaluation sooner for any signs of wound infection. The patient was happy with plan of care, voiced understanding of all discharge instructions, and denied any pain at the time of discharge. Medical Decision Medication Reconcilliation Current Medication List: was personally reviewed by me Blood Pressure Screening Patient's blood pressure: Normal blood pressure Impression Primary Impression: Laceration of left leg Departure Information Dispostion Home / Self-Care Forms HOME CARE DOCUMENTATION FORM, IMPORTANT VISIT INFORMATION Patient Instructions My [facility] Additional Instructions Keep wound clean and dry. Do not allow any crusting or dried blood to accumulate on sutures. If this occurs, use a 1:1 solution of hydrogen peroxide/ water on a Q-tip to clean the wound. Use an antibiotic ointment for 3-4 days, then let wound dry. Suture removal in 12-14 days. Return sooner for any signs of infection (increasing redness, swelling, drainage). Ice and elevate for swelling and pain. Tylenol 1000 mg every 6 hrs if needed for pain. Problem Qualifiers Primary Impression: Laceration of left leg Encounter type: initial encounter Qualified Codes: S81.812A - Laceration without foreign body, left lower leg, initial encounter
== END 2017-11-08 08:56 | disposition home or self-care (01) ==
LOC: C.EDB 08:09
DX: S91.012A Laceration without foreign body, left ankle, initial encounter (principal); X58.XXXA Exposure to other specified factors, initial encounter; I48.0 Paroxysmal atrial fibrillation; E11.9 Type 2 diabetes mellitus without complications; I10 Essential (primary) hypertension; J45.909 Unspecified asthma, uncomplicated; Z79.01 Long term (current) use of anticoagulants; Z79.84 Long term (current) use of oral hypoglycemic drugs; Z79.899 Other long term (current) drug therapy

== ENCOUNTER 2018-07-09 15:27 | Inpatient (IN) ==
--- NOTE | 2018-07-09 16:37 | XRay Report ---
XR chest 1V portable CLINICAL HISTORY: 58 years-old Female presenting with weakness. TECHNIQUE: Portable upright AP view of the chest was obtained. COMPARISON: 02/02/2018. FINDINGS: Cardiac silhouette moderately enlarged, unchanged. Pulmonary vascular prominence worsened from prior. No focal lung opacity apart from prominent vasculature. No large effusion or pneumothorax. Posttraum atic changes of the right glenohumeral joint suggested. IMPRESSION: 1. Cardiomegaly with significant volume overload. No katty pulmonary edema at this time. 2. Posttraumatic changes of the right glenohumeral joint. Electronically signed by: Jose Daniel Rhoades M.D. 07/09/2018 4:36 PM
[2018-07-09 16:43] LABS: Hematocrit (blood only) 22.4 % (37-47); Hemoglobin 6.6 g/dL (12.0-16.0); Mean Corpuscular Hgb Conc 29.5 g/dL (32-36); Mean Corpuscular Volume 69.3 fL (80-100); Mean Platelet Volume 9.3 fL (7.4-10.4); Platelet Count 246 K/uL (130-400); RDW Standard Deviation 45.6 fL (36.4-46.3); Red Blood Count 3.23 M/uL (4.2-5.4); White Blood Count 4.69 K/uL (4.8-10.8)
[2018-07-09 16:49] LABS: Alanine Aminotransferase 44 U/L (12-78); Albumin Level 3.8 gm/dl (3.4-5.0); Aspartate Aminotransferase 52 U/L (15-37); Blood Urea Nitrogen 11 mg/dl (7-18); Calcium 8.7 mg/dl (8.5-10.1); Carbon Dioxide 24 mmol/L (21-32); Chloride 80 mmol/L (98-107); Creatinine Clr Calc Pharmacy 87.9 ml/min; Est GFR (African American) 87.5; Est GFR (Non-African American) 75.5; Glucose 84 mg/dl (70-99); Magnesium 1.4 mg/dl (1.8-2.4)
[2018-07-09 16:52] LABS: Albumin Globulin Ratio 1.3 (0.9-2); Alkaline Phosphatase 159 U/L (45-117); Basophils # (auto) 0.01 K/uL (0-0.2); Basophils % (auto) 0.2 %; Bilirubin,Total 0.5 mg/dl (0.2-1); Eosinophils # (auto) 0.01 K/uL (0-0.5); Eosinophils % (auto) 0.2 %; Hypochromasia Present; Immature Granulocytes # (auto) 0.01 K/uL (0.00-0.02); Immature Granulocytes % (auto) 0.2 %; Lymphocytes # (auto) 0.63 K/uL (1.2-3.4); Lymphocytes % (auto) 13.4 %; Microcytosis Present; Monocytes # (auto) 0.42 K/uL (0.11-0.59); Neutrophils # (auto) 3.61 K/uL (1.4-6.5); Total Protein 6.8 gm/dl (6.4-8.2); Troponin I < 0.015 ng/ml (0-0.045)
[2018-07-09] MEDS ORDERED: SODIUM CHLORIDE 0.9% 250 ML IV PRN (17:01)
[2018-07-09] MEDS ORDERED: SODIUM CHLORIDE 0.9% 1000ML 1,000 ML IV STA (17:01)
[2018-07-09] MEDS ORDERED: LORazepam 1 MG TAB SL STA (17:01)
[2018-07-09] MEDS ORDERED: MAGNESIUM SULFATE / D5W 1 GM/100 ML BAG IV ONE (17:01)
[2018-07-09 17:41] LABS: Sodium 117 mmol/L (136-145)
[2018-07-09 18:36] LABS: Appearance Urine Cloudy (Clear); Bilirubin Urine Negative (Negative); Blood Urine 2+ (Negative); Color Urine Yellow; Glucose Urine UA Negative (Negative); Ketones Urine Negative (Negative); Leukocyte Esterase Urine 3+ (Negative); Nitrite Urine Negative (Negative); Protein Urine Negative (Negative); Specific Gravity Urine 1.013 (1.000-1.030); Urobilinogen Urine Negative (Negative)
[2018-07-09 19:01] LABS: WBC Urine Automated >30 /hpf (0-5)
[2018-07-09 19:02] LABS: Bacteria Urine Automated 1+ (Negative); Cast Urine Automated 0 /lpf (0-5)
--- NOTE | 2018-07-09 19:32 | History & Physical Report ---
Date of Service July 09, 2018 Assessment & Plan (1) Severe anemia: Iron studies done as outpt show iron level of 14 Consented and 2 units PRBC started in the ED Repeat Hb in AM given blood will be transfusing until early AM likely Venofer x1 and will need PO replacement ongoing Hemoccult pending, however given iron levels and a microcytic anemia, acute blood loss is less likely Will give full liquids for now Will hold xarelto until hemoccult status resulted, can likely restart if neg Hold on GI c/s for now Baseline Hb is 9.0 (2) Hypomagnesemia: Does not consistently take home replacement Replaced in ED, repeat in AM (3) Hyponatremia: Baseline is around 133-135 119 on admission Monitor Bactrim can cause hypoNa (4) Diabetes: SSI PRN Holding metformin for now A1c pending (5) Hypercholesteremia: Holding statin for now (6) Hypertension: continue home meds (7) Asthma: continue home meds (8) Anxiety: continue home meds (9) Depression: continue home meds (10) Osteomyelitis: Continue Bactrim Follows with [facility] (11) Paroxysmal a-fib: continue home meds with xarelto on hold (12) Hypothyroid: continue home meds TSH was not part of labs pt had done this AM TSH pending (13) Alcohol use: States no hx of withdrawal issues and denies shaking on days she does not drink Withdrawal protocol Ativan PRN (14) DVT prophylaxis: SCDs History of Present Illness Primary Care Provider: Parveen Fishman MD 58 y/o F who was sent to the ED for abn labs. Pt states she had her labs drawn today to check her TSH after having her synthroid dose adjusted recently. She states that she has been fatigued, nauseated in the AM only without emesis, and with BRIONES to stairs and prolonged walking over the last 2 weeks. Pt denies fever, chest pain, abd pain, c/d. She has ongoing L knee pain related to a "broken knee cap". She regularly has LE swelling, but it is less today. She states that she has had increased bleeding and bruising since she started xarelto 2 years ago. She noted a bloody nose at work recently. No major bruising noted but states she does bruise with even light bumping. Denies black or red blood in her stool. States she has been anemic in the past but never required transfusion. States she has been told in the past that her iron was low, but not currently being treated for this. Pt states she is supposed to take a Mg supplement but does not take it regularly as it is very large and hard to swallow. 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 She also takes a probiotic. She follows with [facility] for this. Allergies Allergy/AdvReac Type Severity Reaction Status Date / Time Penicillins Allergy Unknown UNKNOWN Verified 07/09/18 16:37 Home Medications Home Medications Medication Instructions Recorded Confirmed Type acetaminophen 325 mg capsule 650 mg PO Q6H PRN cap 12/24/17 07/09/18 History amiodarone 200 mg tablet 200 mg PO DAILY 12/24/17 07/09/18 History atorvastatin 40 mg tablet 40 mg PO DAILY 12/24/17 07/09/18 History bupropion HCl XL 150 mg 24 hr 150 mg PO QAM 12/24/17 07/09/18 History tablet, extended release cholecalciferol (vitamin D3) 1,000 1,000 units PO DAILY 12/24/17 07/09/18 History unit capsule cyanocobalamin (vitamin B-12) 1,000 mcg PO DAILY 12/24/17 07/09/18 History 1,000 mcg capsule escitalopram 20 mg tablet 20 mg PO DAILY 12/24/17 07/09/18 History fluticasone propionate 250 1 inha INH DAILY ea 12/24/17 07/09/18 History mcg/actuation blister powder for inhalation magnesium oxide 400 mg capsule 400 mg PO BID cap 12/24/17 07/09/18 History metformin 1,000 mg tablet 1,000 mg PO BID 12/24/17 07/09/18 History metoprolol succinate ER 50 mg 75 mg PO DAILY tab 12/24/17 07/09/18 History tablet,extended release 24 hr montelukast 10 mg tablet 10 mg PO QPM 12/24/17 07/09/18 History rivaroxaban 20 mg tablet 20 mg PO DAILY 12/24/17 07/09/18 History sulfamethoxazole 800 1 tab PO BID tab 12/24/17 07/09/18 History mg-trimethoprim 160 mg tablet levothyroxine 75 mg PO DAILY 06/30/18 07/09/18 History naproxen sodium [Aleve] 440 mg PO DAILY PRN 07/09/18 07/09/18 History Past Med/Surg History Medical History Diabetes (Chronic) Hypercholesteremia (Chronic) Hypertension (Chronic) Asthma (Chronic) Anxiety (Chronic) Depression (Chronic) Abscess or cellulitis of foot (Resolved 08/25/13) Diabetic foot infection (Resolved 08/25/13) Cellulitis of third toe, left (Resolved) Osteomyelitis (Chronic) Acute renal failure Arterial hemorrhage (Acute) Hypomagnesemia Laceration of left leg (Acute) Paroxysmal a-fib (Resolved) Partial thickness burn of right hand (Acute) Patellar fracture Surgical History Post-operative state (Resolved) Family History Other Family history non-contributory Heart disease Social History Preferred Language: Hungarian marital status: Single Current Living Situation: Alone Feels Safe at Home: Yes Smoking Status: Former smoker Hx Alcohol Use: Yes (1-2 vodka drinks most days) Hx Substance Use: No Review of Systems Pertinent positives and negatives reviewed in HPI--all others negative Physical Exam Vital Signs (Past 24 Hours): Last Vital Signs Temp 36.4 C L 07/09/18 19:11 Pulse 51 L 07/09/18 19:11 Resp 18 07/09/18 19:11 BP 113/88 07/09/18 19:11 Pulse Ox 93 07/09/18 19:11 Constitutional: WD/WN, vitals as above Eyes: normal visual duvall by confrontation and + anicteric sclerae Neck: normal visual inspection and trachea midline Respiratory: normal respiratory effort, lungs clear to auscultation Cardiovascular: Rate/Rhythm: regular rhythm and + bradycardic Gastrointestinal (Abdomen): Inspection/Auscultation: abdomen not distended Percussion/Palpation: abdomen soft; abdomen nontender Musculoskeletal: Head/Neck/Chest: normocephalic and head atraumatic 1+ pitting LE edema, peripheral pulses intact Skin: no rashes, warm and dry + pallor Neurologic: awake; not confused Speech / Cognition: normal speech Psychiatric: A+Ox3, euthymic affect Results & Data Diagnostic Findings CXR: neg for acute ECG Rhythm: sinus bradycardia Code Status & VTE Plan Code Status Full code VTE Prophylaxis Plan VTE Prophylaxis will be ordered: Yes
--- NOTE | 2018-07-09 20:38 | Emergency Department Note ---
Entered by Ted Musa acting as a scribe for Daniel Merida MD ED Provider Note CHIEF COMPLAINT: Abnormal diagnostic testing. HISTORY OF PRESENT ILLNESS: The patient is a 58 year old female who presents to the Emergency Room after referral from the [facility] for abnormal diagnostic testing. The patient states that she had laboratory work drawn this morning as a follow-up. These labs found hypokalemia and anemia. The patient notes that over the past couple of days she has felt "crappy, tired, and exhausted." She also describes significant shortness of breath with exertion such as walking up steps, which she describes as "impossible." The patient also complains of dizziness with changes in position. She does have a history of both hypokalemia and anemia, but denies any history of blood transfusion. The patient adds that she was in acute kidney failure last year while she was in [facility] following a traumatic fall, which has since resolved. Pt denies LOC, headache, fevers, chills, diaphoresis, visual changes, neck pain, chest pain, nausea, vomiting, abdominal pain, back pain, melena, hematochezia, urinary symptoms, numbness, weakness, lymphadenopathy, rash, or other complaints. REVIEW OF SYSTEMS: See HPI for pertinent positives and negatives. A total of ten systems were reviewed and were otherwise negative. PMHx/PSHx: Diabetes Hypertension Asthma Anxiety Depression Osteomyelitis Acute Renal Failure Arterial Hemorrhage Hypomagnesemia Atrial Fibrillation SOCIAL HISTORY: Patient lives at home. PHYSICAL EXAM: GENERAL: Awake, alert, dyspneic on exam. HENT: Normocephalic, atraumatic. Oropharynx unremarkable. EYES: PERRL. Conjunctiva pale. Sclera non-icteric. NECK: Inspection normal. Non-tender. Supple. No nuchal rigidity. FROM. No masses. RESPIRATORY: Clear to auscultation. No wheezes. No rales. Normal respiratory effort. CARDIAC: Bradycardic rate. Normal rhythm. No murmurs. No rubs. Extremities warm and well perfused. Pulses equal. No JVD. GI: Soft, non-distended. No tenderness to palpation. No rebound or guarding. No masses. RECTAL: Deferred. MUSCULOSKELETAL: Atraumatic. Chest examination reveals no tenderness. The back is symmetrical on inspection without obvious abnormality. There is no CVA tenderness to palpation. No joint edema. LOWER EXTREMITIES: Calves are equal size bilaterally and non-tender. 1+ bilateral edema. No discoloration. NEURO: Normal sensorium. No sensory or motor deficits noted. SKIN: No rash or jaundice noted. Skin is pale. EMERGENCY DEPARTMENT COURSE: 1558: The patient was evaluated in room C7, and a complete history and physical examination were performed. 1716: I reviewed the patient's case with Dr. Giles - [facility] [place]. She will evaluate the patient for further management. MEDICAL DECISION MAKING: Prior records/ancillary studies reviewed the patient had hyponatremia as well as anemia as an outpatient. Nursing notes reviewed and agree them. Additional history obtained from the patient's family peer The patient's history was concerning for shortness of breath, anemia, and hyponatremia Differential diagnosis: Etiologies such as metabolic, infection, hypo/hyperglycemia, electrolyte abnormalities, cardiac sources, intracerebral event, toxicologic, neurologic, as well as others were entertained. Physical examination: As above. ER treatment provided: IV Lock Normal saline hydration Packed red blood cell transfusion IV magnesium Diagnostics interpretation by me: ECG: Bradycardia. The labs revealed severe anemia on CBC. She had significant hyponatremia as well as hypomagnesemia. Imaging studies: Chest imaging negative. The patient has significant electrolyte abnormalities. She has a severe anemia. She is short of breath and dyspneic on exertion. She will need transfusion as well as electrolyte correction. Consultation: A consultation was placed with the hospitalist. The case was discussed and diagnostics were reviewed. The patient was evaluated in the ER for further treatment. IMPRESSION: Severe Anemia Severe Hyponatremia Hypomagnesemia PLAN: Admit to [facility] [place] Service. CRITICAL CARE: I have personally spent greater than 35 minutes of critical care time in the direct management of this patient. This includes bedside care, interpretation of diagnostic studies, and testing, discussion with consultants, patient, and family members, and other required patient management activities. This 35 minutes is in excess of all separately billable procedures. The scribe's documentation has been prepared under my direction and personally reviewed by me in its entirety. I confirm that the note above accurately reflects all work, treatment, procedures, and medical decision making performed by me. Impression & Plan Severe anemia, Hypomagnesemia, Hyponatremia Past Med/Surg History Medical History Diabetes (Chronic) Hypercholesteremia (Chronic) Hypertension (Chronic) Asthma (Chronic) Anxiety (Chronic) Depression (Chronic) Abscess or cellulitis of foot (Resolved 08/25/13) Diabetic foot infection (Resolved 08/25/13) Cellulitis of third toe, left (Resolved) Osteomyelitis (Chronic) Acute renal failure Arterial hemorrhage (Acute) Hypomagnesemia Laceration of left leg (Acute) Paroxysmal a-fib (Resolved) Partial thickness burn of right hand (Acute) Patellar fracture Surgical History Post-operative state (Resolved) Social History Preferred Language: Pashto marital status: Single Current Living Situation: Alone Feels Safe at Home: Yes Smoking Status: Former smoker Hx Alcohol Use: Yes (1-2 vodka drinks most days) Hx Substance Use: No Results & Data Vital Signs Vital Signs - 24 hr 07/09/18 15:35 07/09/18 17:27 07/09/18 17:47 Temperature 36.6 C Temperature Source Oral Sepsis Recent Fever Within 48 Hours No Sepsis Action Taken by Nursing No Action Required Pulse Rate 51 L 52 L Pulse Rhythm Regular Pulse Strength Normal Respiratory Rate 20 17 Respiratory Effort / Characteristics Non-Labored Respiratory Depth Normal Respiratory Pattern Regular Blood Pressure 129/72 110/73 Blood Pressure Mean 91 85 Blood Pressure Position Sitting Pulse Oximetry 100 98 97 Oxygen Delivery Method Room Air Room Air Oxygen Flow Rate 07/09/18 17:51 07/09/18 18:00 07/09/18 18:06 Temperature 36.5 C 36.7 C Temperature Source Oral Oral Sepsis Recent Fever Within 48 Hours Sepsis Action Taken by Nursing Pulse Rate 52 L 53 L 53 L Pulse Rhythm Regular Pulse Strength Normal Respiratory Rate 15 19 12 Respiratory Effort / Characteristics Respiratory Depth Respiratory Pattern Blood Pressure 110/73 135/71 Blood Pressure Mean 85 92 Blood Pressure Position Sitting Pulse Oximetry 98 96 97 Oxygen Delivery Method Oxygen Flow Rate 0 0 07/09/18 18:18 07/09/18 18:30 07/09/18 18:45 Temperature Temperature Source Sepsis Recent Fever Within 48 Hours Sepsis Action Taken by Nursing Pulse Rate 52 L 50 L 52 L Pulse Rhythm Pulse Strength Respiratory Rate 22 18 13 Respiratory Effort / Characteristics Respiratory Depth Respiratory Pattern Blood Pressure 113/88 Blood Pressure Mean 96 Blood Pressure Position Pulse Oximetry 99 97 99 Oxygen Delivery Method Oxygen Flow Rate 07/09/18 19:00 07/09/18 19:11 Temperature 36.4 C L Temperature Source Oral Sepsis Recent Fever Within 48 Hours Sepsis Action Taken by Nursing Pulse Rate 50 L 51 L Pulse Rhythm Regular Pulse Strength Normal Respiratory Rate 13 18 Respiratory Effort / Characteristics Respiratory Depth Respiratory Pattern Blood Pressure 113/88 Blood Pressure Mean 96 Blood Pressure Position Sitting Pulse Oximetry 97 93 Oxygen Delivery Method Oxygen Flow Rate Home Medications Current Medication List: was personally reviewed by me Laboratory Data Attestation: I reviewed the patient's lab results. Result diagrams: 07/09/18 16:13 07/09/18 16:13 Lab Results 07/09/18 07/09/18 07/09/18 Range/Units 16:13 16:13 16:14 WBC 4.69 L (4.8-10.8) K/uL RBC 3.23 L (4.2-5.4) M/uL Hgb 6.6 L* (12.0-16.0) g/dL Hct 22.4 L (37-47) % MCV 69.3 L (80-100) fL MCH 20.4 L (25-34) pg MCHC 29.5 L (32-36) g/dL RDW Std Deviation 45.6 (36.4-46.3) fL RDW Coeff of Yazmin 18.0 H (11.5-14.5) % Plt Count 246 (130-400) K/uL MPV 9.3 (7.4-10.4) fL Immature Gran % (Auto) 0.2 % Neut % (Auto) 77.0 % Lymph % (Auto) 13.4 % [place] % (Auto) 9.0 % Eos % (Auto) 0.2 % Baso % (Auto) 0.2 % Immature Gran # (Auto) 0.01 (0.00-0.02) K/uL Neut # (Auto) 3.61 (1.4-6.5) K/uL Lymph # (Auto) 0.63 L (1.2-3.4) K/uL [place] # (Auto) 0.42 (0.11-0.59) K/uL Eos # (Auto) 0.01 (0-0.5) K/uL Baso # (Auto) 0.01 (0-0.2) K/uL Hypochromasia Present Microcytosis Present Sodium 117 L* (136-145) mmol/L Potassium 4.0 (3.5-5.1) mmol/L Chloride 80 L (98-107) mmol/L Carbon Dioxide 24 (21-32) mmol/L Anion Gap 13.0 H (3-11) BUN 11 (7-18) mg/dl Creatinine 0.86 (0.6-1.2) mg/dl Est Cr Clr Drug Dosing 87.9 ml/min Est GFR ( Amer) 87.5 Est GFR (Non-Af Amer) 75.5 BUN/Creatinine Ratio 13.0 (10-20) Glucose 84 (70-99) mg/dl Calcium 8.7 (8.5-10.1) mg/dl Magnesium 1.4 L (1.8-2.4) mg/dl Total Bilirubin 0.5 (0.2-1) mg/dl AST 52 H (15-37) U/L ALT 44 (12-78) U/L Alkaline Phosphatase 159 H (45-117) U/L Troponin I < 0.015 (0-0.045) ng/ml Total Protein 6.8 (6.4-8.2) gm/dl Albumin 3.8 (3.4-5.0) gm/dl Globulin 3.0 (2.5-4.0) gm/dl Albumin/Globulin Ratio 1.3 (0.9-2) Urine Color Urine Appearance (Clear) Urine pH (4.5-7.5) Ur Specific [place] (1.000-1.030) Urine Protein (Negative) Urine Glucose (UA) (Negative) Urine Ketones (Negative) Urine Blood (Negative) Urine Nitrite (Negative) Urine Bilirubin (Negative) Urine Urobilinogen (Negative) Ur Leukocyte Esterase (Negative) Urine WBC (Auto) (0-5) /hpf Urine RBC (Auto) (0-4) /hpf U Hyaline Cast (Auto) (0-5) /lpf U Epithel Cells (Auto) (0-5) /lpf Urine Bacteria (Auto) (Negative) Urine Yeast (None Prsent) Blood Type O Positive Antibody Screen NEGATIVE Crossmatch See Detail 07/09/18 Range/Units 18:15 WBC (4.8-10.8) K/uL RBC (4.2-5.4) M/uL Hgb (12.0-16.0) g/dL Hct (37-47) % MCV (80-100) fL MCH (25-34) pg MCHC (32-36) g/dL RDW Std Deviation (36.4-46.3) fL RDW Coeff of Yazmin (11.5-14.5) % Plt Count (130-400) K/uL MPV (7.4-10.4) fL Immature Gran % (Auto) % Neut % (Auto) % Lymph % (Auto) % [place] % (Auto) % Eos % (Auto) % Baso % (Auto) % Immature Gran # (Auto) (0.00-0.02) K/uL Neut # (Auto) (1.4-6.5) K/uL Lymph # (Auto) (1.2-3.4) K/uL [place] # (Auto) (0.11-0.59) K/uL Eos # (Auto) (0-0.5) K/uL Baso # (Auto) (0-0.2) K/uL Hypochromasia Microcytosis Sodium (136-145) mmol/L Potassium (3.5-5.1) mmol/L Chloride (98-107) mmol/L Carbon Dioxide (21-32) mmol/L Anion Gap (3-11) BUN (7-18) mg/dl Creatinine (0.6-1.2) mg/dl Est Cr Clr Drug Dosing ml/min Est GFR ( Amer) Est GFR (Non-Af Amer) BUN/Creatinine Ratio (10-20) Glucose (70-99) mg/dl Calcium (8.5-10.1) mg/dl Magnesium (1.8-2.4) mg/dl Total Bilirubin (0.2-1) mg/dl AST (15-37) U/L ALT (12-78) U/L Alkaline Phosphatase (45-117) U/L Troponin I (0-0.045) ng/ml Total Protein (6.4-8.2) gm/dl Albumin (3.4-5.0) gm/dl Globulin (2.5-4.0) gm/dl Albumin/Globulin Ratio (0.9-2) Urine Color Yellow Urine Appearance Cloudy H (Clear) Urine pH 6.0 (4.5-7.5) Ur Specific [place] 1.013 (1.000-1.030) Urine Protein Negative (Negative) Urine Glucose (UA) Negative (Negative) Urine Ketones Negative (Negative) Urine Blood 2+ H (Negative) Urine Nitrite Negative (Negative) Urine Bilirubin Negative (Negative) Urine Urobilinogen Negative (Negative) Ur Leukocyte Esterase 3+ H (Negative) Urine WBC (Auto) >30 H (0-5) /hpf Urine RBC (Auto) 5-10 H (0-4) /hpf U Hyaline Cast (Auto) 0 (0-5) /lpf U Epithel Cells (Auto) 10-20 H (0-5) /lpf Urine Bacteria (Auto) 1+ H (Negative) Urine Yeast Present H (None Prsent) Blood Type Antibody Screen Crossmatch Administered Medications Sodium Chloride (Nss 1000ml) 1,000 mls @ 125 mls/hr IV .Q8H STA Stop: 07/10/18 01:00 Last Admin: 07/09/18 17:30 Dose: 125 mls/hr Documented by: [id number] Discontinued Medications Magnesium Sulfate/Dextrose (Magnesium Sulfate / D5w) 1 gm in 100 mls @ 100 mls/hr IV ONE ONE Stop: 07/09/18 18:00 Last Infusion: 07/09/18 20:01 Dose: 0 mls/hr Documented by: [id number] Admin: 07/09/18 18:00 Dose: 100 mls/hr Documented by: [id number] Lorazepam (Ativan) 1 mg SL NOW STA Stop: 07/09/18 17:02 Last Admin: 07/09/18 17:30 Dose: 1 mg Documented by: [id number] Imaging Data Attestation: I personally reviewed and interpreted this imaging study as follows: Radiologist's Impression: XR chest 1V portable CLINICAL HISTORY: 58 years-old Female presenting with weakness. TECHNIQUE: Portable upright AP view of the chest was obtained. COMPARISON: 02/02/2018. FINDINGS: Cardiac silhouette moderately enlarged, unchanged. Pulmonary vascular prominence worsened from prior. No focal lung opacity apart from prominent vasculature. No large effusion or pneumothorax. Posttraumatic changes of the right glenohumeral joint suggested. IMPRESSION: 1. Cardiomegaly with significant volume overload. No katty pulmonary edema at this time. 2. Posttraumatic changes of the right glenohumeral joint. Electronically signed by: Jose Daniel Rhoades M.D. 07/09/2018 4:36 PM ECG Data Attestation: I personally reviewed and interpreted this ECG as follows: Indication: SOB/dyspnea and weakness Rate (beats per minute): 53 Rhythm: sinus bradycardia Findings: + other (Prolonged QT); no PAC, no PVC, no ST depression and no ST elevation Blood Pressure Blood Pressure Findings: Elevated blood pressure Blood Pressure Disposition: further management by hospitalist Discharge Plan Visit Data *Final* Discharge Date/Time: 07/09/18 20:02 Chief Complaint: Abnormal Labs/Diagnostic Testing Stated Complaint: ABNORMAL LABS,DOC REFERRED ED Provider: Daniel Merida Discharge Problem: Severe anemia, Hypomagnesemia, Hyponatremia Patient Disposition: Admitted As Inpatient Discharge Instructions Interventions: ED Discharge Assessment Last Done: 07/09/18 20:02 The scribe's documentation has been prepared under my direction and personally reviewed by me in its entirety. I confirm that the note above accurately reflects all work, treatment, procedures, and medical decision making performed by me.
[2018-07-09] MEDS ORDERED: LORazepam 1 MG/2 ML VIAL IV PRN (20:42)
[2018-07-09] MEDS ORDERED: NON-FORMULARY MEDICATION (Acetaminophen 650 MG) PO PRN (20:42)
[2018-07-09] MEDS ORDERED: MAGNESIUM HYDROXIDE SUSP 30 ML UDC PO PRN (20:42)
[2018-07-09] MEDS ORDERED: LORazepam 1 MG TAB PO PRN (20:42)
[2018-07-09] MEDS: MAGNESIUM OXIDE 400 MG TAB PO SCH (22:13)
[2018-07-09] MEDS: SULFAMETHOXAZOLE/TRIMETHOPRIM DS 800/160MG TAB PO SCH (22:13)
[2018-07-10 02:16] LABS: Hematocrit (blood only) 25.8 % (37-47); Hemoglobin 7.9 g/dL (12.0-16.0); Mean Corpuscular Hgb Conc 30.6 g/dL (32-36); Mean Corpuscular Volume 72.9 fL (80-100); Mean Platelet Volume 9.8 fL (7.4-10.4); Platelet Count 221 K/uL (130-400); RDW Coefficient of Variation 19.8 % (11.5-14.5); RDW Standard Deviation 52.3 fL (36.4-46.3); Red Blood Count 3.54 M/uL (4.2-5.4); White Blood Count 4.35 K/uL (4.8-10.8)
[2018-07-10 02:21] LABS: Calcium 8.1 mg/dl (8.5-10.1); Creatinine Clr Calc Pharmacy 108.9 ml/min; Est GFR (African American) 108.5; Est GFR (Non-African American) 93.6; Magnesium 1.6 mg/dl (1.8-2.4); Potassium 3.8 mmol/L (3.5-5.1)
[2018-07-10 02:31] LABS: Phosphorus 2.6 mg/dl (2.5-4.9)
[2018-07-10 02:37] LABS: Basophilic Stippling 1+; Basophils # (auto) 0.01 K/uL (0-0.2); Basophils % (auto) 0.2 %; Eosinophils # (auto) 0.03 K/uL (0-0.5); Eosinophils % (auto) 0.7 %; Hypochromasia Present; Immature Granulocytes # (auto) 0.01 K/uL (0.00-0.02); Immature Granulocytes % (auto) 0.2 %; Lymphocytes # (auto) 0.83 K/uL (1.2-3.4); Lymphocytes % (auto) 19.1 %; Monocytes # (auto) 0.45 K/uL (0.11-0.59); Monocytes % (auto) 10.3 %; Neutrophils # (auto) 3.02 K/uL (1.4-6.5); Neutrophils % (auto) 69.5 %
[2018-07-10 02:44] LABS: T4 Free Thyroxine 1.06 ng/dl (0.8-1.6)
[2018-07-10] MEDS ORDERED: LEVOTHYROXINE SODIUM 75 MCG TABLET PO SCH (06:30)
[2018-07-10] MEDS ORDERED: IRON SUCROSE 100 MG in 0.9 % SODIUM CHLORIDE 100 ML IV SCH (08:00)
[2018-07-10] MEDS ORDERED: MAGNESIUM SULFATE / D5W 1 GM/100 ML BAG IV ONE (08:30)
[2018-07-10] MEDS: SULFAMETHOXAZOLE/TRIMETHOPRIM DS 800/160MG TAB PO SCH ×2 (08:45→20:40)
[2018-07-10] MEDS: METOPROLOL SUCC 25MG EXT REL TAB PO SCH (08:45)
[2018-07-10] MEDS: ESCITALOPRAM OXALATE 20 MG TAB PO SCH (08:45)
[2018-07-10] MEDS: AMIODARONE 200 MG TAB PO SCH (08:46)
[2018-07-10] MEDS: BuPROPion XL 150 MG TABCR PO SCH (08:46)
[2018-07-10] MEDS: MAGNESIUM OXIDE 400 MG TAB PO SCH ×2 (08:46→20:40)
[2018-07-10] MEDS ORDERED: GLUCAGON FOR INJ 1 MG VIAL SQ PRN (10:46)
[2018-07-10] MEDS ORDERED: GLUCOSE 10 TABS/TUBE PO PRN (10:46)
[2018-07-10] MEDS ORDERED: CARBOHYDRATES FOR HYPOGLYCEMIA PO PRN (10:46)
[2018-07-10] MEDS ORDERED: GLUCOSE 40% GEL 15 GM TUBE PO PRN (10:46)
[2018-07-10] MEDS ORDERED: DEXTROSE 50% 50 ML SYRINGE IV PRN (10:46)
--- NOTE | 2018-07-10 11:03 | Nephrology Consultation ---
Date of Consultation July 10, 2018 Assessment & Plan (1) Hyponatremia: -- Hyponatremia is likely due to multiple factors including decreased EAV from anemia, profound hypothyroidism, SSRI therapy. Patient may also have an element of mild CHF (CXR shows marked CMG w/ pulmonary vascular conge stion). Agree w/ current plan of care: Transfuse to Hgb > 8.0, supplement thyroid hormone. Consider holding antidepressant if serum sodium fails to correct. Will order echocardiogram to assess LV function -- Patient has no cognitive deficit and serum sodium is already gradually correcting. No acute indication for 3% NaCl, Tolvaptan or NaCl tablets at this time -- Monitor serial PRP History of Present Illness Reason for Consultation: Hyponatremia Attending Physician: Nicky Vaughn MD History of Present Illness Miss Agrawal is a 58 year old white female who is seen at the request of Dr. Vaughn for evaluation of hyponatremia. Medical records in the EMR were reviewed this morning and are summarized as follows: Miss Agrawal's medical history is significant for AODM, obesty (BMI 46), HTN and chronic atrial fibrillation requiring anticoagulation therapy. She has a h/o GABRIELA 04/23 during hospitalization for mechanical fall w/ R humeral head fracture. She was hyponatremic during that hospitalization w/ SNa 123 mmol/dL. At the time of discharge her kidney function had recovered w/ serum creatinine 0.7 and serum sodium had normalized. Miss Agrawal reports that she has arthritis and recently started taking Aleve. In addition she was converted to Xarelto for anticoagulation of her atrial fibrillation. She recently had a prolonged nose bleed but denies hematemesis, melena or hematochezia. Miss Agrawal notes that she has not been adherent with her thyroid supplementation. She began to feel weak and sought medical attention. Laboratory studies revealed Hgb 6.5, serum Na 119 mmol/dL and TSH 10. She was transfused 2 U PRBC in the ED and admitted to [facility] for ongoing medical management Allergies Allergy/AdvReac Type Severity Reaction Status Date / Time Penicillins Allergy Unknown UNKNOWN Verified 07/09/18 16:37 Home Medications Home Medications Medication Instructions Recorded Confirmed Type acetaminophen 325 mg capsule 650 mg PO Q6H PRN cap 12/24/17 07/09/18 History amiodarone 200 mg tablet 200 mg PO DAILY 12/24/17 07/09/18 History atorvastatin 40 mg tablet 40 mg PO DAILY 12/24/17 07/09/18 History bupropion HCl XL 150 mg 24 hr 150 mg PO QAM 12/24/17 07/09/18 History tablet, extended release cholecalciferol (vitamin D3) 1,000 1,000 units PO DAILY 12/24/17 07/09/18 History unit capsule cyanocobalamin (vitamin B-12) 1,000 mcg PO DAILY 12/24/17 07/09/18 History 1,000 mcg capsule escitalopram 20 mg tablet 20 mg PO DAILY 12/24/17 07/09/18 History fluticasone propionate 250 1 inha INH DAILY ea 12/24/17 07/09/18 History mcg/actuation blister powder for inhalation magnesium oxide 400 mg capsule 400 mg PO BID cap 12/24/17 07/09/18 History metformin 1,000 mg tablet 1,000 mg PO BID 12/24/17 07/09/18 History metoprolol succinate ER 50 mg 75 mg PO DAILY tab 12/24/17 07/09/18 History tablet,extended release 24 hr montelukast 10 mg tablet 10 mg PO QPM 12/24/17 07/09/18 History rivaroxaban 20 mg tablet 20 mg PO DAILY 12/24/17 07/09/18 History sulfamethoxazole 800 1 tab PO BID tab 12/24/17 07/09/18 History mg-trimethoprim 160 mg tablet levothyroxine 75 mg PO DAILY 06/30/18 07/09/18 History naproxen sodium [Aleve] 440 mg PO DAILY PRN 07/09/18 07/09/18 History Patient History Medical History Diabetes (Chronic) Hypercholesteremia (Chronic) Hypertension (Chronic) Asthma (Chronic) Anxiety (Chronic) Depression (Chronic) Abscess or cellulitis of foot (Resolved 08/25/13) Diabetic foot infection (Resolved 08/25/13) Cellulitis of third toe, left (Resolved) Osteomyelitis (Chronic) Acute renal failure Arterial hemorrhage (Acute) Hypomagnesemia Laceration of left leg (Acute) Paroxysmal a-fib (Resolved) Partial thickness burn of right hand (Acute) Patellar fracture Surgical History Post-operative state (Resolved) Social History Preferred Language: French Communication Ability: Effective Animal Husbandman Required: No Beliefs That Will Affect Care: None marital status: Single Current Living Situation: Alone Other Information That Helps Us Care for You: No Feels Safe at Home: Hesitant to Answer Safety Concerns: Afraid for Self Smoking Status: Former smoker Hx Alcohol Use: Yes Hx Substance Use: No Review of Systems Constitutional: + fatigue; no fever Respiratory: + dyspnea on exertion Cardiovascular: no chest pain at rest Gastrointestinal: no vomiting, no hematemesis and no melena Physical Exam Vital Signs (Past 24 Hours): Last Vital Signs Temp 36.5 C 07/10/18 07:50 Pulse 56 L 07/10/18 07:50 Resp 19 07/10/18 07:50 BP 154/69 H 07/10/18 07:50 Pulse Ox 96 07/10/18 07:50 Constitutional: + obese Eyes: PERRL, conjunctivae normal, anicteric sclerae Neck: trachea midline, no thyromegaly Respiratory: normal respiratory effort, lungs clear to auscultation Cardiovascular: Rate/Rhythm: + abnormal rate and + abnormal rhythm Gastrointestinal (Abdomen): normal bowel sounds, soft, nontender, no hepatosplenomegaly Results & Data Laboratory Results Laboratory Tests 07/09/18 07/09/18 07/09/18 09:02 16:13 18:15 WBC Hgb 6.5 L* Plt Count Sodium 117 L* Potassium Chloride Carbon Dioxide BUN Creatinine Glucose TSH Urine Color Yellow Urine Appearance Cloudy H Urine pH 6.0 Ur Specific [place] 1.013 Urine Protein Negative Urine Glucose (UA) Negative Urine Blood 2+ H Urine Nitrite Negative Ur Leukocyte Esterase 3+ H Urine WBC (Auto) >30 H Urine RBC (Auto) 5-10 H U Epithel Cells (Auto) 10-20 H Urine Bacteria (Auto) 1+ H 07/10/18 07/10/18 01:31 01:31 WBC 4.35 L Hgb 7.9 L Plt Count 221 Sodium 122 L Potassium 3.8 Chloride 86 L Carbon Dioxide 28 BUN 9 Creatinine 0.72 Glucose 75 TSH 10.600 H Urine Color Urine Appearance Urine pH Ur Specific [place] Urine Protein Urine Glucose (UA) Urine Blood Urine Nitrite Ur Leukocyte Esterase Urine WBC (Auto) Urine RBC (Auto) U Epithel Cells (Auto) Urine Bacteria (Auto) CXR 07/09/18: Cardiac silhouette moderately enlarged, unchanged. Pulmonary vascular prominence worsened from prior. No focal lung opacity apart from prominent vasculature. No large effusion or pneumothorax. Posttraumatic changes of the right glenohumeral joint suggested.
[2018-07-10] MEDS: INSULIN ASPART 100 UNITS/ML 3 ML PEN SC SCH ×3 (11:26→20:28)
[2018-07-10] MEDS ORDERED: PERFLUTREN LIPID MICROSPHERE (DEFINITY) IV ONE (12:07)
--- NOTE | 2018-07-10 13:12 | Hospitalist Progress Note ---
Date of Service July 10, 2018 Assessment & Plan (1) Severe anemia: Iron studies done as outpt show iron level of 14, transferrin sat very low at 3%, ferritin low at 34, folate normal at 6 She has never had an EGD or colonoscopy. Her brother recently of metastatic rectal cancer She had some rectal bleeding a small amount after straining for a bowel movement yesterday, but also had a significant episode of epistaxis the day prior to admission. She has a chronic anemia with baseline hemoglobin of 9 for quite some time, but dropped to 6.4 on admission. She was transfused 2 units PRBC and hemoglobin is up to 7.9 today -Continue to hold Xarelto -Avoid NSAIDs and aspirin -Consult GI for possible EGD and colonoscopy during this inpatient stay for severe anemia and need for anticoagulation -Follow CBC in the morning (2) Hyponatremia: Baseline is around 133-135 119 on admission and then dropped to 117 Was given normal saline x 1 L, sodium rising slowly and appropriately to 127 this afternoon Urine osmolality today is 251, urine sodium low at 15 and urine osmolality low at 75 although urine studies were collected after she received normal saline Nephrology consulted and thinks etiology from combination of decreased EAV from acute on chronic blood loss anemia, hypothyroidism, SSRI therapy although she has been on these SSRIs for many years. Patient may also have an element of mild CHF (CXR shows marked CMG w/ pulmonary vascular congestion). UA with elevated WBCs and epis, await culture results-no antibiotics for now - Transfuse to Hgb > 8.0 -Increasing levothyroxine dose for elevated TSH -Consider holding antidepressant if serum sodium fails to correct -Follow-up echocardiogram to assess LV function -No acute indication for 3% NaCl, Tolvaptan or NaCl tablets at this time as per nephrology -Follow BMP serially (3) Hypomagnesemia: Low upon admission, replaced. Still mildly low today-give another 1 g of IV magnesium -Continue p.o. magnesium supplement (4) Diabetes: Blood sugars well controlled and seem to be less than 100 on most occasions SSI PRN -Continue holding metformin -Order hemoglobin A1c in the morning (5) Hypercholesteremia: -Okay to restart statin (6) Hypertension: Controlled -Continue home Toprol-XL 75 mg daily (7) Asthma: No acute issues Continue home Flovent, and restart Singulair (8) Anxiety: continue home meds of bupropion, Lexapro (9) Depression: continue home meds (10) Osteomyelitis: Chronic in the right knee -Continue Bactrim chronically for prophylaxis Follows with [facility] (11) Paroxysmal a-fib: Currently in sinus rhythm with bradycardia-has a history of DC cardioversion x2 in the past Follows with cardiology -Continue home amiodarone, Toprol-XL -Holding Xarelto for bleeding as above -Follow on telemetry (12) Hypothyroid: TSH elevated at 10-previously noncompliant with her meds but has been for the last 4 weeks -Increase levothyroxine to 88 mcg and repeat TSH in 4 weeks May also be contributing to her hyponatremia (13) Alcohol use: States no hx of withdrawal issues and denies shaking on days she does not drink Withdrawal protocol Ativan PRN Could also be contributing to her hyponatremia -We will encourage cessation (14) VALERIE (obstructive sleep apnea): She is supposed to be on 2 L nasal cannula nightly and has not been using this at home -Will start nocturnal O2 here Encouraged home use (15) DVT prophylaxis: SCDs, Xarelto on hold due to bleeding as above and severe anemia Disposition-remain on telemetry Subjective Patient feeling better today but drowsy. She did receive Ativan this morning for anxiety. She denies melena but did report some bright red blood that leaked anally yesterday when she got up off the bed. She reports having a brisk bloody nose for several hours the day prior to admission. She denies hematemesis. Denies chest pain or shortness of breath. She reports she is supposed to be on 2 L of oxygen at nighttime she has not been using it at home as it is upstairs and she has not been able to climb stairs due to her knee pain and right shoulder pain-feels like she will fall if she goes on any stairs. Also reports her mood has been down since her brother a couple of months ago and her sister 6 months ago. She reports that she has been taking her levothyroxine more consistently in the last 4 weeks, but was not taking it much at all prior to that. Telemetry with sinus bradycardia with rates in the 50s Review of Systems All systems reviewed & are unremarkable except as noted in HPI & below Physical Exam Vital Signs (Past 24 Hours): Last Vital Signs Temp 36.8 C 07/10/18 11:08 Pulse 54 L 07/10/18 11:08 Resp 19 07/10/18 11:08 BP 143/72 H 07/10/18 11:08 Pulse Ox 94 07/10/18 11:08 Constitutional: WD/WN, vitals as above (Falls asleep a few times mid sentence while talking me but quickly wakes back up and answers questions appropriately) + morbidly obese Eyes: PERRL, conjunctivae normal, anicteric sclerae ENMT: external ear and nose normal, oropharynx normal Neck: trachea midline, no thyromegaly Respiratory: normal respiratory effort Auscultation: + diminished lung sounds (Throughout) Cardiovascular: Rate/Rhythm: regular rhythm and + bradycardic Heart Sounds: no murmur Extremities: + edema (Trace woody pitting edema in the legs bilaterally) Gastrointestinal (Abdomen): normal bowel sounds, soft, nontender, no hepatosplenomegaly Musculoskeletal: Extremities: extremities normal to inspection; no cyanosis and no clubbing Skin: no rashes, warm and dry Neurologic: moves all extremities and awake; no focal motor deficits Psychiatric: Orientation: alert and oriented x 3 Eye Contact: good eye contact Affect: + blunted affect Thought Process: goal directed thought process Results & Data Laboratory Results 07/10/18 07/10/18 07/10/18 Range/Units 16:28 13:14 11:04 WBC (4.8-10.8) K/uL RBC (4.2-5.4) M/uL Hgb (12.0-16.0) g/dL Hct (37-47) % MCV (80-100) fL MCH (25-34) pg MCHC (32-36) g/dL RDW Std Deviation (36.4-46.3) fL RDW Coeff of Yazmin (11.5-14.5) % Plt Count (130-400) K/uL MPV (7.4-10.4) fL Immature Gran % (Auto) % Neut % (Auto) % Lymph % (Auto) % [place] % (Auto) % Eos % (Auto) % Baso % (Auto) % Immature Gran # (Auto) (0.00-0.02) K/uL Neut # (Auto) (1.4-6.5) K/uL Lymph # (Auto) (1.2-3.4) K/uL [place] # (Auto) (0.11-0.59) K/uL Eos # (Auto) (0-0.5) K/uL Baso # (Auto) (0-0.2) K/uL Hypochromasia Basophilic Stippling Microcytosis Sodium 127 L (136-145) mmol/L Potassium 3.8 (3.5-5.1) mmol/L Chloride 91 L (98-107) mmol/L Carbon Dioxide 30 (21-32) mmol/L Anion Gap 6.0 (3-11) BUN 7 (7-18) mg/dl Creatinine 0.68 (0.6-1.2) mg/dl Est Cr Clr Drug Dosing 115.3 ml/min Est GFR ( Amer) 113.3 Est GFR (Non-Af Amer) 97.8 BUN/Creatinine Ratio 10.3 (10-20) Glucose 99 (70-99) mg/dl POC Glucose 93 105 H (70-99) Osmolality (280-300) mOsm/kg Calcium 8.7 (8.5-10.1) mg/dl Phosphorus (2.5-4.9) mg/dl Magnesium (1.8-2.4) mg/dl Total Bilirubin (0.2-1) mg/dl AST (15-37) U/L ALT (12-78) U/L Alkaline Phosphatase (45-117) U/L Troponin I (0-0.045) ng/ml Total Protein (6.4-8.2) gm/dl Albumin (3.4-5.0) gm/dl Globulin (2.5-4.0) gm/dl Albumin/Globulin Ratio (0.9-2) Folate (>5.38) ng/ml TSH (0.300-4.500) uIu/ml Free T4 (0.8-1.6) ng/dl Urine Color Urine Appearance (Clear) Urine pH (4.5-7.5) Ur Specific [place] (1.000-1.030) Urine Protein (Negative) Urine Glucose (UA) (Negative) Urine Ketones (Negative) Urine Blood (Negative) Urine Nitrite (Negative) Urine Bilirubin (Negative) Urine Urobilinogen (Negative) Ur Leukocyte Esterase (Negative) Urine WBC (Auto) (0-5) /hpf Urine RBC (Auto) (0-4) /hpf U Hyaline Cast (Auto) (0-5) /lpf U Epithel Cells (Auto) (0-5) /lpf Urine Bacteria (Auto) (Negative) Urine Yeast (None Prsent) Urine Osmolality (500-800) mOsm/kg Ur Random Sodium mmol/L Blood Type Antibody Screen Crossmatch 07/10/18 07/10/18 07/10/18 Range/Units 10:30 10:30 08:44 WBC (4.8-10.8) K/uL RBC (4.2-5.4) M/uL Hgb (12.0-16.0) g/dL Hct (37-47) % MCV (80-100) fL MCH (25-34) pg MCHC (32-36) g/dL RDW Std Deviation (36.4-46.3) fL RDW Coeff of Yazmin (11.5-14.5) % Plt Count (130-400) K/uL MPV (7.4-10.4) fL Immature Gran % (Auto) % Neut % (Auto) % Lymph % (Auto) % [place] % (Auto) % Eos % (Auto) % Baso % (Auto) % Immature Gran # (Auto) (0.00-0.02) K/uL Neut # (Auto) (1.4-6.5) K/uL Lymph # (Auto) (1.2-3.4) K/uL [place] # (Auto) (0.11-0.59) K/uL Eos # (Auto) (0-0.5) K/uL Baso # (Auto) (0-0.2) K/uL Hypochromasia Basophilic Stippling Microcytosis Sodium (136-145) mmol/L Potassium (3.5-5.1) mmol/L Chloride (98-107) mmol/L Carbon Dioxide (21-32) mmol/L Anion Gap (3-11) BUN (7-18) mg/dl Creatinine (0.6-1.2) mg/dl Est Cr Clr Drug Dosing ml/min Est GFR ( Amer) Est GFR (Non-Af Amer) BUN/Creatinine Ratio (10-20) Glucose (70-99) mg/dl POC Glucose (70-99) Osmolality 251 L (280-300) mOsm/kg Calcium (8.5-10.1) mg/dl Phosphorus (2.5-4.9) mg/dl Magnesium (1.8-2.4) mg/dl Total Bilirubin (0.2-1) mg/dl AST (15-37) U/L ALT (12-78) U/L Alkaline Phosphatase (45-117) U/L Troponin I (0-0.045) ng/ml Total Protein (6.4-8.2) gm/dl Albumin (3.4-5.0) gm/dl Globulin (2.5-4.0) gm/dl Albumin/Globulin Ratio (0.9-2) Folate (>5.38) ng/ml TSH (0.300-4.500) uIu/ml Free T4 (0.8-1.6) ng/dl Urine Color Urine Appearance (Clear) Urine pH (4.5-7.5) Ur Specific [place] (1.000-1.030) Urine Protein (Negative) Urine Glucose (UA) (Negative) Urine Ketones (Negative) Urine Blood (Negative) Urine Nitrite (Negative) Urine Bilirubin (Negative) Urine Urobilinogen (Negative) Ur Leukocyte Esterase (Negative) Urine WBC (Auto) (0-5) /hpf Urine RBC (Auto) (0-4) /hpf U Hyaline Cast (Auto) (0-5) /lpf U Epithel Cells (Auto) (0-5) /lpf Urine Bacteria (Auto) (Negative) Urine Yeast (None Prsent) Urine Osmolality 76 L (500-800) mOsm/kg Ur Random Sodium 15 mmol/L Blood Type Antibody Screen Crossmatch 07/10/18 07/10/18 07/10/18 Range/Units 07:17 01:31 01:31 WBC 4.35 L (4.8-10.8) K/uL RBC 3.54 L (4.2-5.4) M/uL Hgb 7.9 L (12.0-16.0) g/dL Hct 25.8 L (37-47) % MCV 72.9 L D (80-100) fL MCH 22.3 L (25-34) pg MCHC 30.6 L (32-36) g/dL RDW Std Deviation 52.3 H (36.4-46.3) fL RDW Coeff of Yazmin 19.8 H (11.5-14.5) % Plt Count 221 (130-400) K/uL MPV 9.8 (7.4-10.4) fL Immature Gran % (Auto) 0.2 % Neut % (Auto) 69.5 % Lymph % (Auto) 19.1 % [place] % (Auto) 10.3 % Eos % (Auto) 0.7 % Baso % (Auto) 0.2 % Immature Gran # (Auto) 0.01 (0.00-0.02) K/uL Neut # (Auto) 3.02 (1.4-6.5) K/uL Lymph # (Auto) 0.83 L (1.2-3.4) K/uL [place] # (Auto) 0.45 (0.11-0.59) K/uL Eos # (Auto) 0.03 (0-0.5) K/uL Baso # (Auto) 0.01 (0-0.2) K/uL Hypochromasia Present Basophilic Stippling 1+ Microcytosis Sodium 122 L (136-145) mmol/L Potassium 3.8 (3.5-5.1) mmol/L Chloride 86 L (98-107) mmol/L Carbon Dioxide 28 (21-32) mmol/L Anion Gap 8.0 (3-11) BUN 9 (7-18) mg/dl Creatinine 0.72 (0.6-1.2) mg/dl Est Cr Clr Drug Dosing 108.9 ml/min Est GFR ( Amer) 108.5 Est GFR (Non-Af Amer) 93.6 BUN/Creatinine Ratio 12.0 (10-20) Glucose 75 (70-99) mg/dl POC Glucose 99 (70-99) Osmolality (280-300) mOsm/kg Calcium 8.1 L (8.5-10.1) mg/dl Phosphorus 2.6 (2.5-4.9) mg/dl Magnesium 1.6 L (1.8-2.4) mg/dl Total Bilirubin (0.2-1) mg/dl AST (15-37) U/L ALT (12-78) U/L Alkaline Phosphatase (45-117) U/L Troponin I (0-0.045) ng/ml Total Protein (6.4-8.2) gm/dl Albumin (3.4-5.0) gm/dl Globulin (2.5-4.0) gm/dl Albumin/Globulin Ratio (0.9-2) Folate (>5.38) ng/ml TSH 10.600 H (0.300-4.500) uIu/ml Free T4 1.06 (0.8-1.6) ng/dl Urine Color Urine Appearance (Clear) Urine pH (4.5-7.5) Ur Specific [place] (1.000-1.030) Urine Protein (Negative) Urine Glucose (UA) (Negative) Urine Ketones (Negative) Urine Blood (Negative) Urine Nitrite (Negative) Urine Bilirubin (Negative) Urine Urobilinogen (Negative) Ur Leukocyte Esterase (Negative) Urine WBC (Auto) (0-5) /hpf Urine RBC (Auto) (0-4) /hpf U Hyaline Cast (Auto) (0-5) /lpf U Epithel Cells (Auto) (0-5) /lpf Urine Bacteria (Auto) (Negative) Urine Yeast (None Prsent) Urine Osmolality (500-800) mOsm/kg Ur Random Sodium mmol/L Blood Type Antibody Screen Crossmatch 07/10/18 07/09/18 07/09/18 Range/Units 01:31 20:43 18:15 WBC (4.8-10.8) K/uL RBC (4.2-5.4) M/uL Hgb (12.0-16.0) g/dL Hct (37-47) % MCV (80-100) fL MCH (25-34) pg MCHC (32-36) g/dL RDW Std Deviation (36.4-46.3) fL RDW Coeff of Yazmin (11.5-14.5) % Plt Count (130-400) K/uL MPV (7.4-10.4) fL Immature Gran % (Auto) % Neut % (Auto) % Lymph % (Auto) % [place] % (Auto) % Eos % (Auto) % Baso % (Auto) % Immature Gran # (Auto) (0.00-0.02) K/uL Neut # (Auto) (1.4-6.5) K/uL Lymph # (Auto) (1.2-3.4) K/uL [place] # (Auto) (0.11-0.59) K/uL Eos # (Auto) (0-0.5) K/uL Baso # (Auto) (0-0.2) K/uL Hypochromasia Basophilic Stippling Microcytosis Sodium (136-145) mmol/L Potassium (3.5-5.1) mmol/L Chloride (98-107) mmol/L Carbon Dioxide (21-32) mmol/L Anion Gap (3-11) BUN (7-18) mg/dl Creatinine (0.6-1.2) mg/dl Est Cr Clr Drug Dosing ml/min Est GFR ( Amer) Est GFR (Non-Af Amer) BUN/Creatinine Ratio (10-20) Glucose (70-99) mg/dl POC Glucose 99 (70-99) Osmolality (280-300) mOsm/kg Calcium (8.5-10.1) mg/dl Phosphorus (2.5-4.9) mg/dl Magnesium (1.8-2.4) mg/dl Total Bilirubin (0.2-1) mg/dl AST (15-37) U/L ALT (12-78) U/L Alkaline Phosphatase (45-117) U/L Troponin I (0-0.045) ng/ml Total Protein (6.4-8.2) gm/dl Albumin (3.4-5.0) gm/dl Globulin (2.5-4.0) gm/dl Albumin/Globulin Ratio (0.9-2) Folate 6.68 (>5.38) ng/ml TSH (0.300-4.500) uIu/ml Free T4 (0.8-1.6) ng/dl Urine Color Yellow Urine Appearance Cloudy H (Clear) Urine pH 6.0 (4.5-7.5) Ur Specific [place] 1.013 (1.000-1.030) Urine Protein Negative (Negative) Urine Glucose (UA) Negative (Negative) Urine Ketones Negative (Negative) Urine Blood 2+ H (Negative) Urine Nitrite Negative (Negative) Urine Bilirubin Negative (Negative) Urine Urobilinogen Negative (Negative) Ur Leukocyte Esterase 3+ H (Negative) Urine WBC (Auto) >30 H (0-5) /hpf Urine RBC (Auto) 5-10 H (0-4) /hpf U Hyaline Cast (Auto) 0 (0-5) /lpf U Epithel Cells (Auto) 10-20 H (0-5) /lpf Urine Bacteria (Auto) 1+ H (Negative) Urine Yeast Present H (None Prsent) Urine Osmolality (500-800) mOsm/kg Ur Random Sodium mmol/L Blood Type Antibody Screen Crossmatch 07/09/18 07/09/18 07/09/18 Range/Units 16:14 16:13 16:13 WBC (4.8-10.8) K/uL RBC (4.2-5.4) M/uL Hgb (12.0-16.0) g/dL Hct (37-47) % MCV (80-100) fL MCH (25-34) pg MCHC (32-36) g/dL RDW Std Deviation (36.4-46.3) fL RDW Coeff of Yazmin (11.5-14.5) % Plt Count (130-400) K/uL MPV (7.4-10.4) fL Immature Gran % (Auto) 0.2 % Neut % (Auto) 77.0 % Lymph % (Auto) 13.4 % [place] % (Auto) 9.0 % Eos % (Auto) 0.2 % Baso % (Auto) 0.2 % Immature Gran # (Auto) 0.01 (0.00-0.02) K/uL Neut # (Auto) 3.61 (1.4-6.5) K/uL Lymph # (Auto) 0.63 L (1.2-3.4) K/uL [place] # (Auto) 0.42 (0.11-0.59) K/uL Eos # (Auto) 0.01 (0-0.5) K/uL Baso # (Auto) 0.01 (0-0.2) K/uL Hypochromasia Present Basophilic Stippling Microcytosis Present Sodium 117 L* (136-145) mmol/L Potassium 4.0 (3.5-5.1) mmol/L Chloride 80 L (98-107) mmol/L Carbon Dioxide 24 (21-32) mmol/L Anion Gap 13.0 H (3-11) BUN 11 (7-18) mg/dl Creatinine 0.86 (0.6-1.2) mg/dl Est Cr Clr Drug Dosing 87.9 ml/min Est GFR ( Amer) 87.5 Est GFR (Non-Af Amer) 75.5 BUN/Creatinine Ratio 13.0 (10-20) Glucose 84 (70-99) mg/dl POC Glucose (70-99) Osmolality (280-300) mOsm/kg Calcium 8.7 (8.5-10.1) mg/dl Phosphorus (2.5-4.9) mg/dl Magnesium 1.4 L (1.8-2.4) mg/dl Total Bilirubin 0.5 (0.2-1) mg/dl AST 52 H (15-37) U/L ALT 44 (12-78) U/L Alkaline Phosphatase 159 H (45-117) U/L Troponin I < 0.015 (0-0.045) ng/ml Total Protein 6.8 (6.4-8.2) gm/dl Albumin 3.8 (3.4-5.0) gm/dl Globulin 3.0 (2.5-4.0) gm/dl Albumin/Globulin Ratio 1.3 (0.9-2) Folate (>5.38) ng/ml TSH (0.300-4.500) uIu/ml Free T4 (0.8-1.6) ng/dl Urine Color Urine Appearance (Clear) Urine pH (4.5-7.5) Ur Specific [place] (1.000-1.030) Urine Protein (Negative) Urine Glucose (UA) (Negative) Urine Ketones (Negative) Urine Blood (Negative) Urine Nitrite (Negative) Urine Bilirubin (Negative) Urine Urobilinogen (Negative) Ur Leukocyte Esterase (Negative) Urine WBC (Auto) (0-5) /hpf Urine RBC (Auto) (0-4) /hpf U Hyaline Cast (Auto) (0-5) /lpf U Epithel Cells (Auto) (0-5) /lpf Urine Bacteria (Auto) (Negative) Urine Yeast (None Prsent) Urine Osmolality (500-800) mOsm/kg Ur Random Sodium mmol/L Blood Type O Positive Antibody Screen NEGATIVE Crossmatch See Detail
[2018-07-10 13:57] LABS: BUN Creatinine Ratio 10.3 (10-20); Calcium 8.7 mg/dl (8.5-10.1); Creatinine Clr Calc Pharmacy 115.3 ml/min; Est GFR (African American) 113.3; Est GFR (Non-African American) 97.8; Potassium 3.8 mmol/L (3.5-5.1)
--- NOTE | 2018-07-10 15:01 | Consultation Report ---
DATE OF CONSULTATION: 07/10/2018 GI CONSULT NOTE REASON FOR CONSULTATION: Iron deficiency anemia. HISTORY OF PRESENT ILLNESS: The patient is a 58-year-old admitted yesterday with severe weakness, hypothyroidism and iron deficiency anemia. She required 2 units of red blood cells. The patient reports no abdominal pain. She does have nausea in the morning, but no visible blood in her stools. Her stools were heme tested and were negative. She has had some nosebleeds from Xarelto in the past week. She has been on Xarelto for the last couple of years for AFib. She has been postmenopausal for 5 or 6 years. She has not had any hematemesis. Of note is that she has been taking Aleve every day for the last several years with no gastric protection because of arthritis in her feet. She has never had a colonoscopy or upper endoscopy. PAST MEDICAL HISTORY: Remarkable for diabetes, hypercholesterolemia, hypertension, asthma, anxiety, depression, osteomyelitis, paroxysmal atrial fibrillation, hypothyroidism. MEDICATIONS: Per list. ALLERGIES: PENICILLIN. FAMILY HISTORY: Positive for heart disease. SOCIAL HISTORY: The patient is single, lives alone, works outside the home. Former smoker. Consumes alcohol. REVIEW OF SYSTEMS: Positive for shortness of breath with exertion. PHYSICAL EXAMINATION: GENERAL: The patient is morbidly obese, but in no acute distress. VITAL SIGNS: Normal. She is afebrile. LUNGS: Showed clear to auscultation. HEART: Showed regular rate and rhythm. ABDOMEN: Showed no scars, but was obese. I was unable to palpate any internal organs. EXTREMITIES: Showed bruising on the left forearm. IMPRESSION: The patient has severe microcytic anemia with iron deficiency. She has never had a colonoscopy and she is on Aleve for several years. I plan on scheduling her for an EGD and colonoscopy on Thursday afternoon for further evaluation for possible source of GI blood loss.
[2018-07-10] MEDS: LORazepam 1 MG TAB PO PRN (19:25)
[2018-07-10] MEDS: MONTELUKAST SODIUM 10 MG TABLET PO SCH (20:40)
[2018-07-11] MEDS: LEVOTHYROXINE SODIUM 75 MCG TABLET PO SCH (05:53)
[2018-07-11] MEDS: LORazepam 1 MG TAB PO PRN ×2 (07:46→16:57)
[2018-07-11] MEDS: AMIODARONE 200 MG TAB PO SCH (07:47)
[2018-07-11] MEDS: ESCITALOPRAM OXALATE 20 MG TAB PO SCH (07:47)
[2018-07-11] MEDS: METOPROLOL SUCC 25MG EXT REL TAB PO SCH (07:48)
[2018-07-11] MEDS: MAGNESIUM OXIDE 400 MG TAB PO SCH ×2 (07:48→21:20)
[2018-07-11] MEDS: SULFAMETHOXAZOLE/TRIMETHOPRIM DS 800/160MG TAB PO SCH ×2 (07:49→21:20)
[2018-07-11] MEDS: INSULIN ASPART 100 UNITS/ML 3 ML PEN SC SCH ×4 (07:49→22:04)
[2018-07-11] MEDS: BuPROPion XL 150 MG TABCR PO SCH (07:49)
[2018-07-11] MEDS: ATORVASTATIN 40 MG TAB PO SCH (07:49)
[2018-07-11 08:53] LABS: Hematocrit (blood only) 26.9 % (37-47); Mean Corpuscular Hgb Conc 29.7 g/dL (32-36); Mean Corpuscular Volume 75.6 fL (80-100); Mean Platelet Volume 8.9 fL (7.4-10.4); Platelet Count 199 K/uL (130-400); RDW Coefficient of Variation 20.1 % (11.5-14.5); RDW Standard Deviation 55.1 fL (36.4-46.3); Red Blood Count 3.56 M/uL (4.2-5.4); White Blood Count 3.25 K/uL (4.8-10.8)
[2018-07-11 09:09] LABS: BUN Creatinine Ratio 7.6 (10-20); Calcium 8.7 mg/dl (8.5-10.1); Est GFR (Non-African American) 90.6
--- NOTE | 2018-07-11 09:55 | Nephrology Progress Note ---
Date of Service July 11, 2018 Assessment & Plan (1) Hyponatremia: -- Hyponatremia is likely due to multiple factors including decreased EAV from anemia, profound hypothyroidism, SSRI therapy. Patient may also have an element of mild CHF (CXR shows marked CMG w/ pulmonary vascular congestion). Agree w/ current plan of care: Transfuse to Hgb > 8.0, supplement thyroid hormone. -- Patient has no cognitive deficit and serum sodium is already gradually correcting. No acute indication for 3% NaCl, Tolvaptan or NaCl tablets at this time -- Echocardiogram: LVEF 55 - 60%, RVSP 47 mmHG, mod TR and RA dilation -- Serum sodium is gradually correcting w/ conservative management and is up to 131 mmol/dL this am. Recommend continued daily monitoring of PRP. No further Nephrology evaluation at this time. Will sign off. Please call if further assistance is needed Subjective Miss Agrawal was seen & examined in her hospital room this morning. She denies fever, abdominal pain or overt bleeding. She was seen by GI earlier today and is scheduled for EGD on Thursday. Constitutional: + fatigue; no fever Respiratory: + dyspnea on exertion Physical Exam Vital Signs (Past 24 Hours): Last Vital Signs Temp 37.0 C 07/11/18 07:01 Pulse 63 07/11/18 07:01 Resp 19 07/11/18 07:01 BP 168/87 H 07/11/18 07:01 Pulse Ox 99 07/11/18 07:01 Constitutional: + obese Eyes: PERRL, conjunctivae normal, anicteric sclerae Neck: trachea midline, no thyromegaly Respiratory: normal respiratory effort, lungs clear to auscultation Cardiovascular: Rate/Rhythm: + abnormal rate and + abnormal rhythm Gastrointestinal (Abdomen): normal bowel sounds, soft, nontender, no hepatosplenomegaly Results & Data Laboratory Results Laboratory Tests 07/11/18 07/11/18 08:38 08:38 WBC 3.25 L Hgb 8.0 L Hct 26.9 L Plt Count 199 Sodium 131 L Potassium 4.0 Chloride 96 L Carbon Dioxide 29 BUN 6 L Creatinine 0.74 Glucose 122 H
--- NOTE | 2018-07-11 11:08 | Hospitalist Progress Note ---
Date of Service July 11, 2018 Assessment & Plan (1) Severe anemia: Iron studies done as outpt show iron level of 14, transferrin sat very low at 3%, ferritin low at 34, folate normal at 6 She has never had an EGD or colonoscopy. Her brother recently of metastatic rectal cancer She had some rectal bleeding a small amount after straining for a bowel movement first day of admission, but also had a significant episode of epistaxis the day prior to admission as likely cause of acute on chronic anemia. She has a chronic anemia with baseline hemoglobin of 9 for quite some time, but dropped to 6.4 on admission. She was transfused 2 units PRBC and hemoglobin is up to 8.0 currently -Continue to hold Xarelto -Avoid NSAIDs and aspirin -Consult GI appreciated-plan for EGD and colonoscopy on Thursday for severe anemia and need for anticoagulation -Follow CBC in the morning (2) Hyponatremia: Baseline is around 133-135 119 on admission and then dropped to 117 Was given normal saline x 1 L, sodium rising slowly and appropriately now up to 131, feeling better Urine osmolality was 251, urine sodium low at 15 and urine osmolality low at 75 although urine studies were collected after she received normal saline Nephrology consulted and thinks etiology from combination of decreased EAV from acute on chronic blood loss anemia, hypothyroidism, SSRI therapy although she has been on these SSRIs for many years. Patient may also have an element of mild CHF (CXR shows marked CMG w/ pulmonary vascular congestion). Although ECHO shows normal LVEF UA with elevated WBCs and epis, await culture results-no antibiotics for now Much improved - keep Hgb > 8.0, transfuse as necessary -Increased levothyroxine dose for elevated TSH -will not hold antidepressants as sodium improving and has been on those for years -No acute indication for 3% NaCl, Tolvaptan or NaCl tablets at this time as per nephrology -Follow BMP in AM -Appreciate Nephro consult-signed off (3) Hypomagnesemia: replaced and resolved (4) Diabetes: Blood sugars well controlled and seem to be less than 100 on most occasions SSI PRN -Continue holding metformin - hemoglobin A1c pending (5) Hypercholesteremia: -continue statin (6) Hypertension: Controlled -Continue home Toprol-XL 75 mg daily (7) Asthma: No acute issues Continue home Flovent, Singulair (8) Anxiety: continue home meds of bupropion, Lexapro -prn ativan (9) Depression: continue home meds -consult Psych at pt's request for worsening depression, anxiety, with recent mourning (10) Osteomyelitis: Chronic in the right knee -Continue Bactrim chronically for prophylaxis Follows with [facility] but has been noncompliant with visits--> has not been there in 4 months -wound draining purulent drainage -consult service counselor is in (11) Paroxysmal a-fib: Remains in sinus rhythm with bradycardia-has a history of DC cardioversion x2 in the past Follows with cardiology -Continue home amiodarone, Toprol-XL -Holding Xarelto for bleeding as above -ok to transfer to medical floor (12) Hypothyroid: TSH elevated at 10-previously noncompliant with her meds but has been for the last 4 weeks -Increased levothyroxine to 88 mcg and repeat TSH in 4 weeks May also be contributing to her hyponatremia (13) Alcohol use: Drinks 3 shots vodka daily, feels guilty and wants to stop States no hx of withdrawal issues and denies shaking on days she does not drink Withdrawal protocol in place Ativan PRN Could also be contributing to her hyponatremia - encouraged cessation (14) VALERIE (obstructive sleep apnea): She is supposed to be on 2 L nasal cannula nightly and has not been using this at home as O2 is set up upstairs and she has been sleeping downstairs for fear of falling on stairs -continue nocturnal O2 here Encouraged home use (15) Open wound of knee: wound care with Aquacel AG and Optifoam -continue bactrim -consult WOund RN (16) Wound of right leg: new in the last few weeks -squilgeer consulted -placed Optifoam for now (17) Pyogenic granuloma: Left great toe with foul odor and significant edema of the toe, very concerning appearing -check xray to look for OM -Consult Wound RN and likely needs debridement of granuloma with Wound MD (18) DVT prophylaxis: SCDs, Xarelto on hold due to bleeding as above and severe anemia Disposition-transfer off tele to medical floor Subjective Feeling better today. had a lot of crazy dreams last night with wearing O2. No CP or SOB, no abd pain. Had some anxiety this AM requiring ativan. Reports she usually drinks 2-3 shots of vodka daily and feels like she needs to cut down. States "I'm trying, I'm really trying to cut back." Requests to see Psychiatry while here for depressed mood. Has had some right groin pain today with movement of RLE Has had left great toe swelling and her nail is falling off for the last 3 weeks. Also with new right lateral distal leg wound after bumping her leg a few weeks ago has not been to [facility] in 2 months Tele with NSR, rates 50s-60s Review of Systems All systems reviewed & are unremarkable except as noted in HPI & below Physical Exam Vital Signs (Past 24 Hours): Last Vital Signs Temp 37.0 C 07/11/18 07:01 Pulse 63 07/11/18 07:01 Resp 19 07/11/18 07:01 BP 168/87 H 07/11/18 07:01 Pulse Ox 99 07/11/18 07:01 Constitutional: WD/WN, vitals as above + morbidly obese Eyes: PERRL, conjunctivae normal, anicteric sclerae Neck: trachea midline, no thyromegaly Respiratory: normal respiratory effort Auscultation: + diminished lung sounds (Throughout) Cardiovascular: Rate/Rhythm: regular rhythm and + bradycardic Heart Sounds: no murmur Extremities: + edema (Trace woody pitting edema in the legs bilaterally) Gastrointestinal (Abdomen): normal bowel sounds, soft, nontender, no hepatosplenomegaly Musculoskeletal: Extremities: extremities normal to inspection (No TTP over right hip and groin, +pain with R hip flexion); no cyanosis and no clubbing Skin: + lesion (R distal lateral leg with 1.5cm circular open wound,dried exudate central) and + wound (right anterior knee over tibial tuberosity with open, draining wound pus) Left great toe with 1.5cm pyogenic granuloma replacing nail bed, with partial nail avulsion, great toe with significant edema, not tender, no erythema, with foul smell and copious serous fluid drainage Neurologic: moves all extremities and awake; no focal motor deficits Psychiatric: Orientation: alert and oriented x 3 Eye Contact: good eye contact Affect: + depressed affect Thought Process: goal directed thought process Results & Data Laboratory Results 07/11/18 07/11/18 07/11/18 Range/Units 08:38 08:38 08:38 WBC 3.25 L (4.8-10.8) K/uL RBC 3.56 L (4.2-5.4) M/uL Hgb 8.0 L (12.0-16.0) g/dL Hct 26.9 L (37-47) % MCV 75.6 L (80-100) fL MCH 22.5 L (25-34) pg MCHC 29.7 L (32-36) g/dL RDW Std Deviation 55.1 H (36.4-46.3) fL RDW Coeff of Yazmin 20.1 H (11.5-14.5) % Plt Count 199 (130-400) K/uL MPV 8.9 (7.4-10.4) fL Sodium 131 L (136-145) mmol/L Potassium 4.0 (3.5-5.1) mmol/L Chloride 96 L (98-107) mmol/L Carbon Dioxide 29 (21-32) mmol/L Anion Gap 6.0 (3-11) BUN 6 L (7-18) mg/dl Creatinine 0.74 (0.6-1.2) mg/dl Est Cr Clr Drug Dosing 104.0 ml/min Est GFR ( Amer) 105.0 Est GFR (Non-Af Amer) 90.6 BUN/Creatinine Ratio 7.6 L (10-20) Glucose 122 H (70-99) mg/dl POC Glucose (70-99) Estimat Average Glucose Pending Hemoglobin A1c Pending Calcium 8.7 (8.5-10.1) mg/dl Cortisol AM Sample 07/11/18 07/11/18 07/10/18 Range/Units 08:38 07:24 20:08 WBC (4.8-10.8) K/uL RBC (4.2-5.4) M/uL Hgb (12.0-16.0) g/dL Hct (37-47) % MCV (80-100) fL MCH (25-34) pg MCHC (32-36) g/dL RDW Std Deviation (36.4-46.3) fL RDW Coeff of Yazmin (11.5-14.5) % Plt Count (130-400) K/uL MPV (7.4-10.4) fL Sodium (136-145) mmol/L Potassium (3.5-5.1) mmol/L Chloride (98-107) mmol/L Carbon Dioxide (21-32) mmol/L Anion Gap (3-11) BUN (7-18) mg/dl Creatinine (0.6-1.2) mg/dl Est Cr Clr Drug Dosing ml/min Est GFR ( Amer) Est GFR (Non-Af Amer) BUN/Creatinine Ratio (10-20) Glucose (70-99) mg/dl POC Glucose 99 96 (70-99) Estimat Average Glucose Hemoglobin A1c Calcium (8.5-10.1) mg/dl Cortisol AM Sample Pending 07/10/18 07/10/18 07/10/18 Range/Units 16:28 13:14 11:04 WBC (4.8-10.8) K/uL RBC (4.2-5.4) M/uL Hgb (12.0-16.0) g/dL Hct (37-47) % MCV (80-100) fL MCH (25-34) pg MCHC (32-36) g/dL RDW Std Deviation (36.4-46.3) fL RDW Coeff of Yazmin (11.5-14.5) % Plt Count (130-400) K/uL MPV (7.4-10.4) fL Sodium 127 L (136-145) mmol/L Potassium 3.8 (3.5-5.1) mmol/L Chloride 91 L (98-107) mmol/L Carbon Dioxide 30 (21-32) mmol/L Anion Gap 6.0 (3-11) BUN 7 (7-18) mg/dl Creatinine 0.68 (0.6-1.2) mg/dl Est Cr Clr Drug Dosing 115.3 ml/min Est GFR ( Amer) 113.3 Est GFR (Non-Af Amer) 97.8 BUN/Creatinine Ratio 10.3 (10-20) Glucose 99 (70-99) mg/dl POC Glucose 93 105 H (70-99) Estimat Average Glucose Hemoglobin A1c Calcium 8.7 (8.5-10.1) mg/dl Cortisol AM Sample
--- NOTE | 2018-07-11 12:16 | Progress Note ---
Date of Service July 11, 2018 Subjective attempted to see patient to complete psych consult. She declined the visit at this time. Reviewed role of psychiatric consultation and why it was requested. She agreed that she would like a visit from the liaison nurse at a better time. Physical Exam Vital Signs (Past 24 Hours): Last Vital Signs Temp 37.0 C 07/11/18 07:01 Pulse 63 07/11/18 07:01 Resp 19 07/11/18 07:01 BP 168/87 H 07/11/18 07:01 Pulse Ox 99 07/11/18 07:01
[2018-07-11] MEDS: LAVAGE SOLUTION 4000ML PO SCH (17:36)
--- NOTE | 2018-07-11 20:01 | XRay Report ---
XR toe LT min 2V CLINICAL HISTORY: 58 years-old Female presenting with left great toe swelling, wound. TECHNIQUE: Frontal, oblique, and lateral views of the left first toe were obtained. COMPARISON: 10/30/2016. FINDINGS: Osteopenia. This limits evaluation for osseous erosion and nondisplaced fracture. Minimal osteophytos is at the first metatarsophalangeal joint. More significant degenerative change at the interphalangea l joint of the first toe where there is chronic subluxation. Chronic appearing deformity of the head of the proximal phalanx with complete joint space loss and erosive change at the interphalangeal join t. There is soft tissue swelling of the first toe. Possible overlying soft tissue erosion along the m edial aspect of the toe at the level of the distal phalanx. No radiographic evidence of soft tissue e mphysema. Diffuse subcutaneous edema evident more proximally in the foot. IMPRESSION: Erosive and deformity of changes at the interphalangeal joint of the first toe raises concern for sep tic arthritis. Evaluation is limited by osteopenia. MR could be considered for a more accurate deline ation of potential septic arthritis/osteomyelitis. The report will be called/faxed according to standard departmental protocol. Electronically signed by: Jose Daniel Rhoades M.D. 07/11/2018 7:59 PM
[2018-07-11] MEDS: MONTELUKAST SODIUM 10 MG TABLET PO SCH (21:20)
[2018-07-11] MEDS ORDERED: VANCOMYCIN CONSULT ACTIVE PRN (22:02)
--- NOTE | 2018-07-11 22:15 | Progress Note ---
Date of Service July 11, 2018 Assessment & Plan (1) Osteomyelitis: Was called by nursing to review x-ray results which showed concern for septic arthritis of first toe, left foot. Plan 1. Treating empirically with vancomycin. Adding gram-negative and pseudomonal coverage considering history of diabetestreating with cefepime as the patient has penicillin allergy. 2. Radiology recommends further workup with MRI. Will defer to day team. Physical Exam Vital Signs (Past 24 Hours): Last Vital Signs Temp 36.4 C L 07/11/18 22:01 Pulse 56 L 07/11/18 22:01 Resp 18 07/11/18 22:01 BP 150/85 H 07/11/18 22:01 Pulse Ox 97 07/11/18 22:01 Results & Data Diagnostic Findings XRay Report Patient: MILA RUVALCABA AAdmit Date: 07/09/18 MR#: [id number]: [id number] Acct ID:[id number]: Date: 1960[facility] Zip: [place] [address] Age: 58Location: 4E Sex: F Room/Bed: [facility] Att Phy: Nicky Vaughn, MDDiagnosis: ANEMIA Aylin Phy: Parveen Fishman MDService Date: 07/11/18 Fam Phy: Interpreting Phy: Jose Daniel Rhoades MD Admit Phy: Anne Giles DO Ordering Phy: Nicky Vaughn MD cc: ~ XR toe LT min 2V CLINICAL HISTORY: 58 years-old Female presenting with left great toe swelling, wound. TECHNIQUE: Frontal, oblique, and lateral views of the left first toe were obtained. COMPARISON: 10/30/2016. FINDINGS: Osteopenia. This limits evaluation for osseous erosion and nondisplaced fracture. Minimal osteophytosis at the first metatarsophalangeal joint. More significant degenerative change at the interphalangeal joint of the first toe where there is chronic subluxation. Chronic appearing deformity of the head of the proximal phalanx with complete joint space loss and erosive change at the interphalangeal joint. There is soft tissue swelling of the first toe. Possible overlying soft tissue erosion along the medial aspect of the toe at the level of the distal phalanx. No radiographic evidence of soft tissue emphysema. Diffuse subcutaneous edema evident more proximally in the foot. IMPRESSION: Erosive and deformity of changes at the interphalangeal joint of the first toe raises concern for septic arthritis. Evaluation is limited by osteopenia. MR could be considered for a more accurate delineation of potential septic arthritis/osteomyelitis. The report will be called/faxed according to standard departmental protocol. Electronically signed by: Jose Daniel Rhoades M.D. 07/11/2018 7:59 PM Dictated: 07/11/181956 Transcribed: 07/11/181956 Resident Activity Tracking Resident Involvement: Resident Care Provided Care Provided: Adult Hospital Medicine
[2018-07-11] MEDS ORDERED: VANCOMYCIN HCL 2,500 MG in SODIUM CHLORIDE 0.9% 500 ML IV ONE (22:45)
[2018-07-11] MEDS: CEFEPIME 2,000 MG in SYRINGE 7.5 ML IV SCH (22:51)
[2018-07-12] MEDS: CEFEPIME 2,000 MG in SYRINGE 7.5 ML IV SCH ×3 (06:05→23:25)
[2018-07-12] MEDS: LEVOTHYROXINE SODIUM 75 MCG TABLET PO SCH (06:24)
[2018-07-12] MEDS: LAVAGE SOLUTION 4000ML PO SCH (07:57)
[2018-07-12] MEDS: ATORVASTATIN 40 MG TAB PO SCH (07:58)
[2018-07-12] MEDS: AMIODARONE 200 MG TAB PO SCH (07:58)
[2018-07-12] MEDS: MAGNESIUM OXIDE 400 MG TAB PO SCH ×2 (07:59→20:07)
[2018-07-12] MEDS: METOPROLOL SUCC 25MG EXT REL TAB PO SCH (07:59)
[2018-07-12] MEDS: ESCITALOPRAM OXALATE 20 MG TAB PO SCH (07:59)
[2018-07-12] MEDS: BuPROPion XL 150 MG TABCR PO SCH (07:59)
[2018-07-12 08:25] LABS: Estimated Average Glucose 111 mg/dl; Hemoglobin A1C 5.5 % (4.5-5.6)
[2018-07-12] MEDS: INSULIN ASPART 100 UNITS/ML 3 ML PEN SC SCH ×4 (09:01→20:17)
[2018-07-12 09:10] LABS: Basophils # (auto) 0.02 K/uL (0-0.2); Basophils % (auto) 0.5 %; Eosinophils % (auto) 2.7 %; Hematocrit (blood only) 26.7 % (37-47); Hemoglobin 7.8 g/dL (12.0-16.0); Immature Granulocytes # (auto) 0.01 K/uL (0.00-0.02); Immature Granulocytes % (auto) 0.3 %; Lymphocytes # (auto) 0.56 K/uL (1.2-3.4); Mean Corpuscular Hgb Conc 29.2 g/dL (32-36); Mean Corpuscular Volume 76.7 fL (80-100); Mean Platelet Volume 8.7 fL (7.4-10.4); Monocytes # (auto) 0.33 K/uL (0.11-0.59); Monocytes % (auto) 8.8 %; Neutrophils # (auto) 2.72 K/uL (1.4-6.5); Neutrophils % (auto) 72.7 %; Platelet Count 204 K/uL (130-400); RDW Coefficient of Variation 20.6 % (11.5-14.5); RDW Standard Deviation 56.8 fL (36.4-46.3); Red Blood Count 3.48 M/uL (4.2-5.4); White Blood Count 3.74 K/uL (4.8-10.8)
[2018-07-12] MEDS: VANCOMYCIN HCL 1,500 MG in SODIUM CHLORIDE 0.9% 500 ML IV SCH ×2 (09:15→20:00)
[2018-07-12 09:34] LABS: BUN Creatinine Ratio 6.5 (10-20); Calcium 8.6 mg/dl (8.5-10.1); Creatinine Clr Calc Pharmacy 124.6 ml/min; Est GFR (African American) 116.8; Est GFR (Non-African American) 100.8; Potassium 4.1 mmol/L (3.5-5.1)
[2018-07-12 09:36] LABS: C Reactive Protein 0.6 mg/dl (0-0.29)
[2018-07-12 09:51] LABS: Anisocytosis Present; Hypochromasia Present; Spherocytes 1+
--- NOTE | 2018-07-12 10:37 | Infectious Disease Consult ---
Date of Consultation July 12, 2018 Assessment & Plan (1) Wound of right leg: will continue abx, cefepime will treat E. coli in urine as well. no gu symptoms, however. will check esr and c rp. unclear significance of x ray findings. refusin MRI on my exam today. will transition back to bactrim upon d/c with plans to continue follow up with Dr. Cyr in wound center. If any drainage from toe, will obtain culture. History of Present Illness Attending Physician: Nicky Vaughn MD pt admitted after she was found to have low h/h on routine labs as outpatient. On anticoagulation for afib, having nosebleeds, admitted for anemia, undergoing workup for this. Has h/o right knee infection, on chronic bactrim, follows with Dr. Cyr at wound center but has been reportedly non compliant. states she has been taking abx without difficulty. Also has h/o left first toe wound. states it has intermittent swelling, especially if she is on her feet for prolonged time. no pain, no bleeding or drainge. x ray was obtained this admission due to swelling, changes noted, some concern for septic joint, suggested MRI. She currently is refusing MRI due to feeling too confined in machine. no pain in toe. no f/c this admission. bactrim on hold. placed on IV vanco and cefepime after x ray report, tolerating well. ID consulted for ? osteo. wbc 3.2, no inflammatory markers. Had UA and culture this admission, UA >30 wbc and + 3 bacteria, culture growing E. coli, resistant to bactrim and quionolones. She has no gu symptoms. niyaenlty denies f/c, sykes, no cp, sob, cough, wheeze, rosas, no abd pain, no n/v/d. no pain in toe. no pain in knee, wound care following. tolerating abx Allergies Allergy/AdvReac Type Severity Reaction Status Date / Time Penicillins Allergy Unknown UNKNOWN Verified 07/09/18 16:37 Home Medications Home Medications Medication Instructions Recorded Confirmed Type acetaminophen 325 mg capsule 650 mg PO Q6H PRN cap 12/24/17 07/09/18 History amiodarone 200 mg tablet 200 mg PO DAILY 12/24/17 07/09/18 History atorvastatin 40 mg tablet 40 mg PO DAILY 12/24/17 07/09/18 History bupropion HCl XL 150 mg 24 hr 150 mg PO QAM 12/24/17 07/09/18 History tablet, extended release cholecalciferol (vitamin D3) 1,000 1,000 units PO DAILY 12/24/17 07/09/18 History unit capsule cyanocobalamin (vitamin B-12) 1,000 mcg PO DAILY 12/24/17 07/09/18 History 1,000 mcg capsule escitalopram 20 mg tablet 20 mg PO DAILY 12/24/17 07/09/18 History fluticasone propionate 250 1 inha INH DAILY ea 12/24/17 07/09/18 History mcg/actuation blister powder for inhalation magnesium oxide 400 mg capsule 400 mg PO BID cap 12/24/17 07/09/18 History metformin 1,000 mg tablet 1,000 mg PO BID 12/24/17 07/09/18 History metoprolol succinate ER 50 mg 75 mg PO DAILY tab 12/24/17 07/09/18 History tablet,extended release 24 hr montelukast 10 mg tablet 10 mg PO QPM 12/24/17 07/09/18 History rivaroxaban 20 mg tablet 20 mg PO DAILY 12/24/17 07/09/18 History sulfamethoxazole 800 1 tab PO BID tab 12/24/17 07/09/18 History mg-trimethoprim 160 mg tablet levothyroxine 75 mg PO DAILY 06/30/18 07/09/18 History naproxen sodium [Aleve] 440 mg PO DAILY PRN 07/09/18 07/09/18 History Patient History Medical History Diabetes (Chronic) Hypercholesteremia (Chronic) Hypertension (Chronic) Asthma (Chronic) Anxiety (Chronic) Depression (Chronic) Abscess or cellulitis of foot (Resolved 08/25/13) Diabetic foot infection (Resolved 08/25/13) Cellulitis of third toe, left (Resolved) Osteomyelitis (Chronic) Acute renal failure Arterial hemorrhage (Acute) Hypomagnesemia Laceration of left leg (Acute) Paroxysmal a-fib (Resolved) Partial thickness burn of right hand (Acute) Patellar fracture Surgical History Post-operative state (Resolved) Family History Other Family history non-contributory Heart disease Social History Preferred Language: Korean Communication Ability: Effective 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 Required: No Beliefs That Will Affect Care: None marital status: Single Current Living Situation: Alone Other Information That Helps Us Care for You: No Feels Safe at Home: Hesitant to Answer Safety Concerns: Afraid for Self Smoking Status: Former smoker Hx Alcohol Use: Yes Hx Substance Use: No Review of Systems all remaining ros reviewed and are negative Physical Exam Vital Signs (Past 24 Hours): Last Vital Signs Temp 36.4 C L 07/12/18 07:36 Pulse 72 07/12/18 07:36 Resp 18 07/12/18 07:36 BP 161/103 H 07/12/18 07:36 Pulse Ox 92 07/12/18 07:36 Constitutional: WD/WN, vitals as above Eyes: PERRL, conjunctivae normal, anicteric sclerae ENMT: external ear and nose normal, oropharynx normal Neck: normal visual inspection Respiratory: normal respiratory effort, lungs clear to auscultation Cardiovascular: RRR, no murmur, no edema Gastrointestinal (Abdomen): normal bowel sounds, soft, nontender, no hepatosplenomegaly Musculoskeletal: no cyanosis or clubbing, extremities motor strength 5/5 Skin: no rashes, warm and dry left toe with min erythema, no draiange, no bleeding, no warmth, non tender right knee dressing c/d/i. no erythema, no warmth nontender Psychiatric: A+Ox3, euthymic affect Results & Data Laboratory Results Microbiology 07/09/18 18:15 Urine,Clean Catch Urine Culture - Final Escherichia coli
[2018-07-12] MEDS ORDERED: LIDOCAINE HCL 2% 2 ML VIAL/AMP(20MG/ML) INFIL ONE (11:00)
[2018-07-12] MEDS ORDERED: PROPOFOL IV EMULSION 10 MG/ML 20 ML VIAL IV ONE (11:00)
[2018-07-12] MEDS ORDERED: fentaNYL citrate 100 MCG/2 ML VIAL ONE (11:01)
--- NOTE | 2018-07-12 11:10 | Pharmacy Report ---
Pharmacy Abx Initial Consult - Date of Service July 12, 2018 - Pharmacy Dosing Scope Date of Consult: 07/11/18 Consultation requested by: Dr. Olivia Richards Pharmacy is consulted to initiate vancomycin IV dosing therapy, order appropriate labs and adjust drug dose/frequency. - Subjective The patient is a 58 year old F admitted on 07/09/18 19:31. - Objective Height: 5 ft 3 in Weight: 116.2 kg Vital Signs (Past 12hrs): Vital Signs Temp Pulse Pulse Resp BP Pulse Ox 07/12/18 07:36 36.4 C L 72 18 161/103 H 92 07/11/18 23:51 36.4 C L 57 L 18 146/84 H 92 Lab Results (24hrs): Laboratory Tests (24 Hours) 07/12/18 07/12/18 07/12/18 08:55 08:55 08:55 WBC 3.74 L Neut # (Auto) 2.72 ESR 13 Creatinine 0.62 Est Cr Clr Drug Dosing 124.6 C-Reactive Protein 0.60 H Micro Results: 07/09/18 18:15 Urine Culture - Final Urine,Clean Catch Escherichia coli - Assessment & Plan Assessment 58 year old F admitted with infection of left great toe with concern for osteo/septic joint on X-ray. Patient refusing MRI. * h/o chronic right knee infection on bactrim. Pt follows with Dr. Cyr at wound center but has been reportedly non compliant. Bactrim placed on hold while patient is receiving vancomycin IV. Plan Vancomycin IV * Estimated PK Parameters: Vd 81.2 L/kg, Rocco 0.09 hr-1, t1/2 7.7 hr * Loading dose: 2500 mg (22 mg/kg) * Maintenance dose: 1500 mg IV (13 mg/kg) every 10 hours * dose based on regimen that produced therapeutic trough levels during previous admission * less than traditional dose and extended dosing interval have been selected due to likelihood of drug accumulation in obesity * Goal trough level for ?septic joint/osteo : 15 to 20 mcg/mL * Trough level ordered for 07/13/18 Also on cefepime 2000 mg IV q8h- not pharm consult Pharmacy will continue to follow and will adjust dose/frequency as necessary. Thank you.
[2018-07-12] MEDS ORDERED: SODIUM CHLORIDE 0.9% 1000ML 1,000 ML IV SCH (14:45)
--- NOTE | 2018-07-12 14:47 | History & Physical Report ---
Date of Service July 12, 2018 History of Present Illness Chief Complaint: anemia Primary Care Provider: Parveen Fishman MD For EGD and colonoscopy Allergies Allergy/AdvReac Type Severity Reaction Status Date / Time Penicillins Allergy Unknown UNKNOWN Verified 07/09/18 16:37 Home Medications Home Medications Medication Instructions Recorded Confirmed Type acetaminophen 325 mg capsule 650 mg PO Q6H PRN cap 12/24/17 07/09/18 History amiodarone 200 mg tablet 200 mg PO DAILY 12/24/17 07/09/18 History atorvastatin 40 mg tablet 40 mg PO DAILY 12/24/17 07/09/18 History bupropion HCl XL 150 mg 24 hr 150 mg PO QAM 12/24/17 07/09/18 History tablet, extended release cholecalciferol (vitamin D3) 1,000 1,000 units PO DAILY 12/24/17 07/09/18 History unit capsule cyanocobalamin (vitamin B-12) 1,000 mcg PO DAILY 12/24/17 07/09/18 History 1,000 mcg capsule escitalopram 20 mg tablet 20 mg PO DAILY 12/24/17 07/09/18 History fluticasone propionate 250 1 inha INH DAILY ea 12/24/17 07/09/18 History mcg/actuation blister powder for inhalation magnesium oxide 400 mg capsule 400 mg PO BID cap 12/24/17 07/09/18 History metformin 1,000 mg tablet 1,000 mg PO BID 12/24/17 07/09/18 History metoprolol succinate ER 50 mg 75 mg PO DAILY tab 12/24/17 07/09/18 History tablet,extended release 24 hr montelukast 10 mg tablet 10 mg PO QPM 12/24/17 07/09/18 History rivaroxaban 20 mg tablet 20 mg PO DAILY 12/24/17 07/09/18 History sulfamethoxazole 800 1 tab PO BID tab 12/24/17 07/09/18 History mg-trimethoprim 160 mg tablet levothyroxine 75 mg PO DAILY 06/30/18 07/09/18 History naproxen sodium [Aleve] 440 mg PO DAILY PRN 07/09/18 07/09/18 History Past Med/Surg History Medical History Diabetes (Chronic) Hypercholesteremia (Chronic) Hypertension (Chronic) Asthma (Chronic) Anxiety (Chronic) Depression (Chronic) Abscess or cellulitis of foot (Resolved 08/25/13) Diabetic foot infection (Resolved 08/25/13) Cellulitis of third toe, left (Resolved) Osteomyelitis (Chronic) Acute renal failure Arterial hemorrhage (Acute) Hypomagnesemia Laceration of left leg (Acute) Paroxysmal a-fib (Resolved) Partial thickness burn of right hand (Acute) Patellar fracture Surgical History Post-operative state (Resolved) Family History Other Family history non-contributory Heart disease Social History Communication Ability: Effective Beliefs That Will Affect Care: None marital status: Single Current Living Situation: Alone Other Information That Helps Us Care for You: No Feels Safe at Home: Hesitant to Answer Safety Concerns: Afraid for Self Smoking Status: Former smoker Hx Alcohol Use: Yes Hx Substance Use: No Physical Exam Vital Signs (Past 24 Hours): Last Vital Signs Temp 36.4 C L 07/12/18 07:36 Pulse 72 07/12/18 07:36 Resp 18 07/12/18 07:36 BP 161/103 H 07/12/18 07:36 Pulse Ox 92 07/12/18 07:36 Constitutional: + morbidly obese Respiratory: normal respiratory effort Cardiovascular: Rate/Rhythm: regular rate and regular rhythm Gastrointestinal (Abdomen): Inspection/Auscultation: + significant pannus Code Status & VTE Plan VTE Prophylaxis Plan VTE Prophylaxis will be ordered: Yes
--- NOTE | 2018-07-12 14:56 | Anesthesiology Consultation ---
Date of Service July 12, 2018 History Surgery Operation Date: 07/12/18 09:10 Proposed Procedures p Colonoscopy EGD Dr Coyle - Rohan Coyle Height/Weight Height: 5 ft 3 in Weight: 116.2 kg Allergies Allergy/AdvReac Type Severity Reaction Status Date / Time Penicillins Allergy Unknown UNKNOWN Verified 07/09/18 16:37 Medications Home Medications Medication Instructions Recorded Confirmed Last Taken acetaminophen 325 mg capsule 650 mg PO Q6H PRN cap 12/24/17 07/09/18 06/29/18 amiodarone 200 mg tablet 200 mg PO DAILY 12/24/17 07/09/18 07/09/18 atorvastatin 40 mg tablet 40 mg PO DAILY 12/24/17 07/09/18 07/09/18 bupropion HCl XL 150 mg 24 hr 150 mg PO QAM 12/24/17 07/09/18 07/09/18 tablet, extended release cholecalciferol (vitamin D3) 1,000 1,000 units PO DAILY 12/24/17 07/09/18 07/09/18 unit capsule cyanocobalamin (vitamin B-12) 1,000 mcg PO DAILY 12/24/17 07/09/18 07/09/18 1,000 mcg capsule escitalopram 20 mg tablet 20 mg PO DAILY 12/24/17 07/09/18 07/09/18 fluticasone propionate 250 1 inha INH DAILY ea 12/24/17 07/09/18 07/09/18 mcg/actuation blister powder for inhalation magnesium oxide 400 mg capsule 400 mg PO BID cap 12/24/17 07/09/18 07/09/18 metformin 1,000 mg tablet 1,000 mg PO BID 12/24/17 07/09/18 07/09/18 metoprolol succinate ER 50 mg 75 mg PO DAILY tab 12/24/17 07/09/18 07/09/18 tablet,extended release 24 hr montelukast 10 mg tablet 10 mg PO QPM 12/24/17 07/09/18 07/09/18 rivaroxaban 20 mg tablet 20 mg PO DAILY 12/24/17 07/09/18 07/09/18 sulfamethoxazole 800 1 tab PO BID tab 12/24/17 07/09/18 07/09/18 mg-trimethoprim 160 mg tablet levothyroxine 75 mg PO DAILY 06/30/18 07/09/18 07/09/18 naproxen sodium [Aleve] 440 mg PO DAILY PRN 07/09/18 07/09/18 Unknown Active Medications Generic Name Dose Route Start Last Admin Trade Name Moris PRN Reason Stop Dose Admin Amiodarone HCl 200 mg 07/10/18 09:00 07/12/18 07:58 Cordarone PO 08/09/18 08:59 200 mg DAILY BRIANDA Administration Atorvastatin Calcium 40 mg 07/11/18 09:00 07/12/18 07:58 Lipitor PO 08/10/18 08:59 40 mg DAILY BRIANDA Administration Bupropion HCl 150 mg 07/10/18 09:00 07/12/18 07:59 Wellbutrin-Xl PO 08/09/18 08:59 150 mg QAM BRIANDA Administration Escitalopram Oxalate 20 mg 07/10/18 09:00 07/12/18 07:59 Lexapro PO 08/09/18 08:59 20 mg DAILY BRIANDA Administration Cefepime HCl 2,000 mg/ Syringe 20 mls @ 5.5 mls/min 07/11/18 22:15 07/12/18 06:05 IV 07/21/18 22:14 5.5 mls/min Q8 BRIANDA Administration Vancomycin HCl 1,500 mg/ 530 mls @ 200 mls/hr 07/12/18 09:00 07/12/18 09:15 Sodium Chloride IV 07/22/18 08:59 200 mls/hr Q10H BRIANDA Administration Insulin Aspart 0 units 07/10/18 11:30 07/12/18 11:45 Novolog Flexpen SC 08/09/18 11:29 Not Given ACHS BRIANDA Lorazepam 1 mg 07/10/18 18:57 07/11/18 16:57 Ativan PO 07/13/18 18:56 1 mg UD PRN Administration EtoH Withdrawal AWSS 6-10 Protocol Magnesium Oxide 400 mg 07/09/18 21:15 07/12/18 07:59 Mag-Ox PO 08/08/18 21:14 400 mg BID BRIANDA Administration Metoprolol Succinate 75 mg 07/10/18 09:00 07/12/18 07:59 Toprol Xl PO 08/09/18 08:59 75 mg DAILY BRIANDA Administration Miscellaneous 1 ea 07/10/18 00:00 07/12/18 09:03 Order Awaiting Action N/A 08/09/18 00:00 Not Given QS BRIANDA Montelukast Sodium 10 mg 07/10/18 21:00 07/11/18 21:20 Singulair PO 08/09/18 20:59 10 mg QPM BRIANDA Administration Trimethoprim/Sulfamethoxazole 1 tab 07/09/18 21:00 07/11/18 21:20 Septra Ds 800/160mg Tab PO 08/20/18 20:59 1 tab BID BRIANDA Administration Past Medical History Medical History Diabetes (Chronic) Hypercholesteremia (Chronic) Hypertension (Chronic) Asthma (Chronic) Anxiety (Chronic) Depression (Chronic) Abscess or cellulitis of foot (Resolved 08/25/13) Diabetic foot infection (Resolved 08/25/13) Cellulitis of third toe, left (Resolved) Osteomyelitis (Chronic) Acute renal failure Arterial hemorrhage (Acute) Hypomagnesemia Laceration of left leg (Acute) Paroxysmal a-fib (Resolved) Partial thickness burn of right hand (Acute) Patellar fracture Past Family History Family History Other Family history non-contributory Heart disease Past Surgical History Surgical History Post-operative state (Resolved) Social History Smoking Status: Former smoker Do You Dip or Chew Tobacco: No Hx Alcohol Use: Yes Alcohol type: hard liquor alcohol intake frequency: 0-2 drinks per day Alcohol Intake Frequency Comment: 1-2 shots every day Hx Substance Use: No substance use type: does not use Physical Exam Vital Signs Last Vital Signs Temp 36.8 C 07/12/18 14:52 Pulse 67 07/12/18 14:52 Resp 18 07/12/18 14:52 BP 172/81 H 07/12/18 14:52 Pulse Ox 95 07/12/18 14:52 Testing Electrocardiogram Date: 07/09/18 Findings: + SB @ (53) prolong QT Chest X-Ray Date: 07/09/18 XR chest 1V portable CLINICAL HISTORY: 58 years-old Female presenting with weakness. TECHNIQUE: Portable upright AP view of the chest was obtained. COMPARISON: 02/02/2018. FINDINGS: Cardiac silhouette moderately enlarged, unchanged. Pulmonary vascular prominence worsened from prior. No focal lung opacity apart from prominent vasculature. No large effusion or pneumothorax. Posttraumatic changes of the right glenohumeral joint suggested. IMPRESSION: 1. Cardiomegaly with significant volume overload. No katty pulmonary edema at this time. 2. Posttraumatic changes of the right glenohumeral joint. Electronically signed by: Jose Daniel Rhoades M.D. 07/09/2018 4:36 PM Echocardiogram Date: 07/10/18 EF: 55-60 Other Findings: + LVH Valvular Disease: + pertinent finding (mod TR) mild pulmonary HTN Laboratory Results 07/12/18 08:55 07/12/18 08:55 Blood Type O Positive 07/09/18 16:14 Antibody Screen NEGATIVE 07/09/18 16:14 Hemoglobin A1c 5.5 % (4.5-5.6) 07/11/18 08:38 Urine Color Yellow 07/09/18 18:15 Urine Appearance Cloudy (Clear) H 07/09/18 18:15 Urine pH 6.0 (4.5-7.5) 07/09/18 18:15 Ur Specific [place] 1.013 (1.000-1.030) 07/09/18 18:15 Urine Protein Negative (Negative) 07/09/18 18:15 Urine Glucose (UA) Negative (Negative) 07/09/18 18:15 Urine Ketones Negative (Negative) 07/09/18 18:15 Urine Nitrite Negative (Negative) 07/09/18 18:15 Ur Leukocyte Esterase 3+ (Negative) H 07/09/18 18:15 Urine WBC (Auto) >30 /hpf (0-5) H 07/09/18 18:15 Urine RBC (Auto) 5-10 /hpf (0-4) H 07/09/18 18:15 U Hyaline Cast (Auto) 0 /lpf (0-5) 07/09/18 18:15 U Epithel Cells (Auto) 10-20 /lpf (0-5) H 07/09/18 18:15 Urine Bacteria (Auto) 1+ (Negative) H 07/09/18 18:15 07/09/18 18:15 Urine Culture - Final Urine,Clean Catch Escherichia coli 07/12/18 07/12/18 11:34 07:42 POC Glucose 102 H 101 H
--- NOTE | 2018-07-12 15:48 | Hospitalist Progress Note ---
Date of Service July 12, 2018 Assessment & Plan (1) Severe anemia: Iron studies done as outpt show iron level of 14, transferrin sat very low at 3%, ferritin low at 34, folate normal at 6--> has a chronic Fe-def anemia with baseline hgb 9, but acute anemia here likely was secondary to a prolonged nose bleed the day prior to admission, presenting with hgb 6.4 She has never had an EGD or colonoscopy. Her brother recently of metastatic rectal cancer She had some rectal bleeding a small amount after straining for a bowel movement first day of admission She was transfused 2 units PRBC and hemoglobin is up to 7.8 currently Folate level normal at 6, B12 not yet tested TSH also elevated at 10 EGD/Colonoscopy on 07/12 without any abnormalities. Biopsies taken for celiac disease Hemoccult not yet collected -Continue to hold Xarelto but if hgb stable in AM, could restart -Avoid NSAIDs and aspirin -Consult GI appreciated-have signed off -Follow CBC in the morning -f/u small intestine bx when path available -check B12 (2) Hyponatremia: Baseline is around 133-135 119 on admission and then dropped to 117 Was given normal saline x 1 L, sodium rising slowly and appropriately now up to 131 and remains stable there, feeling better Urine osmolality was 251, urine sodium low at 15 and urine osmolality low at 75 although urine studies were collected after she received normal saline Nephrology consulted and thinks etiology from combination of decreased EAV from acute on chronic blood loss anemia, hypothyroidism, SSRI therapy although she has been on these SSRIs for many years. Patient may also have an element of mild CHF (CXR shows marked CMG w/ pulmonary vascular congestion). Although ECHO shows normal LVEF UA with elevated WBCs and epis, E. coli on urine culture Much improved - keep Hgb > 8.0, transfuse as necessary-hold off today -Increased levothyroxine dose for elevated TSH -will not hold antidepressants as sodium improving and has been on those for years -No acute indication for 3% NaCl, Tolvaptan or NaCl tablets at this time as per nephrology -Follow BMP in AM -Appreciate Nephro consult-signed off (3) Hypomagnesemia: replaced and resolved (4) Diabetes: Blood sugars well controlled and seem to be less than 100 on most occasions SSI PRN -Continue holding metformin - hemoglobin A1c normal at 5.5% (5) Hypercholesteremia: -continue statin (6) Hypertension: Controlled -Continue home Toprol-XL 75 mg daily (7) Asthma: No acute issues Continue home Flovent, Singulair (8) Anxiety: Exacerbated by multiple medical conditions and hospitalization -continue home meds of bupropion, Lexapro -prn ativan -Psych consult appreciated (9) Depression: Has been neglecting her own health, depressed mood, worsening depression continue home meds -consult Psych at pt's request for worsening depression, anxiety, with recent mourning loss of brother and sister, multiple medical problems (10) Osteomyelitis: Chronic in the right knee and now with possible OM in left great toe xray toe with erosive damage and edema, smells foul, with pyogenic granuloma -Continue Bactrim chronically for prophylaxis with knee Follows with [facility] but has been noncompliant with visits--> has not been there in 4 months -wound draining purulent drainage from knee -consult sausage smoker is in -appreciate ID consult--> started on Cefepime and Vanco on eveing of 07/11 after toe xray came back abnormal -Consult to Ortho in place for assessment of toe - pt requests Dr. Hal Guzman as she has started seeing him more recently -she is claustrophobic and unsure if she can tolerate toe MRI if needed (11) Paroxysmal a-fib: Remains in sinus rhythm with bradycardia-has a history of DC cardioversion x2 in the past Follows with cardiology -Continue home amiodarone, Toprol-XL -Holding Xarelto for anemia as above -no tele monitoring needed (12) Hypothyroid: TSH elevated at 10-previously noncompliant with her meds but has been for the last 4 weeks -Increased levothyroxine to 88 mcg and repeat TSH in 4 weeks May also be contributing to her hyponatremia (13) Alcohol use: Drinks 3 shots vodka daily, feels guilty and wants to stop States no hx of withdrawal issues and denies shaking on days she does not drink Withdrawal protocol in place Ativan PRN Could also be contributing to her hyponatremia - encouraged cessation (14) VALERIE (obstructive sleep apnea): She is supposed to be on 2 L nasal cannula nightly and has not been using this at home as O2 is set up upstairs and she has been sleeping downstairs for fear of falling on stairs -continue nocturnal O2 here Encouraged home use (15) Open wound of knee: wound care with Aquacel AG and Optifoam -continue bactrim -consult WOund RN (16) Wound of right leg: new in the last few weeks, superficial, secondary to minor trauma -associate software development engineer consulted (17) Pyogenic granuloma: Left great toe with foul odor and significant edema of the toe, very concerning appearing, with possible septic arthritis or OM as above -Consult Wound RN and likely needs debridement of granuloma with Wound MD -Ortho consult as above (18) UTI (urinary tract infection): UA abnormal, no urinary symptoms Ur cx with E. coli, now on Cefepime which would cover anyway (19) DVT prophylaxis: SCDs, Xarelto on hold due to bleeding as above and severe anemia Disposition-remain hospitalized, awaiting Ortho evaluation of toe infection Subjective Pt severely anxious today due to multiple providers coming in her room and she is feeling overwhelmed, tearful. Wonders why OT and PT are seeing her, and was told she was going for EGD and wants to know what that is. Discussed all of her care in detail and then she felt better. She requests that her Ortho consult actually be changed to Dr. Guzman as she recently started following with him instead of [facility]. Review of Systems All systems reviewed & are unremarkable except as noted in HPI & below (except feels SOB at times) Physical Exam Vital Signs (Past 24 Hours): Last Vital Signs Temp 36.8 C 07/12/18 14:52 Pulse 67 07/12/18 14:52 Resp 18 07/12/18 14:52 BP 172/81 H 07/12/18 14:52 Pulse Ox 95 07/12/18 14:52 Constitutional: WD/WN, vitals as above + morbidly obese Eyes: PERRL, conjunctivae normal, anicteric sclerae Neck: trachea midline, no thyromegaly Respiratory: normal respiratory effort Auscultation: + diminished lung sounds (Throughout) Cardiovascular: Rate/Rhythm: regular rhythm and + bradycardic Heart Sounds: no murmur Extremities: + edema (Trace woody pitting edema in the legs bilaterally) Gastrointestinal (Abdomen): normal bowel sounds, soft, nontender, no hepatosplenomegaly Musculoskeletal: Extremities: extremities normal to inspection (No TTP over right hip and groin, +pain with R hip flexion); no cyanosis and no clubbing Skin: + lesion (R distal lateral leg with 1.5cm circular open wound,dried exudate central) and + wound (right anterior knee over tibial tuberosity with open, draining wound pus) Neurologic: moves all extremities and awake; no focal motor deficits Psychiatric: Orientation: alert and oriented x 3 Eye Contact: good eye contact Affect: + depressed affect, + anxious affect and + tearful affect Thought Process: goal directed thought process Results & Data Laboratory Results 07/13/18 07/12/18 07/12/18 Range/Units 07:05 20:17 16:47 WBC (4.8-10.8) K/uL RBC (4.2-5.4) M/uL Hgb (12.0-16.0) g/dL Hct (37-47) % MCV (80-100) fL MCH (25-34) pg MCHC (32-36) g/dL RDW Std Deviation (36.4-46.3) fL RDW Coeff of Yazmin (11.5-14.5) % Plt Count (130-400) K/uL MPV (7.4-10.4) fL Immature Gran % (Auto) % Neut % (Auto) % Lymph % (Auto) % Cook % (Auto) % Eos % (Auto) % Baso % (Auto) % Immature Gran # (Auto) (0.00-0.02) K/uL Neut # (Auto) (1.4-6.5) K/uL Lymph # (Auto) (1.2-3.4) K/uL Cook # (Auto) (0.11-0.59) K/uL Eos # (Auto) (0-0.5) K/uL Baso # (Auto) (0-0.2) K/uL Hypochromasia Anisocytosis Spherocytes ESR (0-21) mm/hr Sodium (136-145) mmol/L Potassium (3.5-5.1) mmol/L Chloride (98-107) mmol/L Carbon Dioxide (21-32) mmol/L Anion Gap (3-11) BUN (7-18) mg/dl Creatinine Pending (0.6-1.2) mg/dl Est Cr Clr Drug Dosing Pending ml/min Est GFR ( Amer) Pending Est GFR (Non-Af Amer) Pending BUN/Creatinine Ratio (10-20) Glucose (70-99) mg/dl POC Glucose 93 91 (70-99) Estimat Average Glucose mg/dl Hemoglobin A1c (4.5-5.6) % Calcium (8.5-10.1) mg/dl C-Reactive Protein (0-0.29) mg/dl 07/12/18 07/12/18 07/12/18 Range/Units 11:34 08:55 08:55 WBC (4.8-10.8) K/uL RBC (4.2-5.4) M/uL Hgb (12.0-16.0) g/dL Hct (37-47) % MCV (80-100) fL MCH (25-34) pg MCHC (32-36) g/dL RDW Std Deviation (36.4-46.3) fL RDW Coeff of Yazmin (11.5-14.5) % Plt Count (130-400) K/uL MPV (7.4-10.4) fL Immature Gran % (Auto) % Neut % (Auto) % Lymph % (Auto) % Cook % (Auto) % Eos % (Auto) % Baso % (Auto) % Immature Gran # (Auto) (0.00-0.02) K/uL Neut # (Auto) (1.4-6.5) K/uL Lymph # (Auto) (1.2-3.4) K/uL Cook # (Auto) (0.11-0.59) K/uL Eos # (Auto) (0-0.5) K/uL Baso # (Auto) (0-0.2) K/uL Hypochromasia Anisocytosis Spherocytes ESR 13 (0-21) mm/hr Sodium 131 L (136-145) mmol/L Potassium 4.1 (3.5-5.1) mmol/L Chloride 97 L (98-107) mmol/L Carbon Dioxide 29 (21-32) mmol/L Anion Gap 5.0 (3-11) BUN 4 L (7-18) mg/dl Creatinine 0.62 (0.6-1.2) mg/dl Est Cr Clr Drug Dosing 124.6 ml/min Est GFR ( Amer) 116.8 Est GFR (Non-Af Amer) 100.8 BUN/Creatinine Ratio 6.5 L (10-20) Glucose 89 (70-99) mg/dl POC Glucose 102 H (70-99) Estimat Average Glucose mg/dl Hemoglobin A1c (4.5-5.6) % Calcium 8.6 (8.5-10.1) mg/dl C-Reactive Protein 0.60 H (0-0.29) mg/dl 07/12/18 07/12/18 07/11/18 Range/Units 08:55 07:42 08:38 WBC 3.74 L (4.8-10.8) K/uL RBC 3.48 L (4.2-5.4) M/uL Hgb 7.8 L (12.0-16.0) g/dL Hct 26.7 L (37-47) % MCV 76.7 L (80-100) fL MCH 22.4 L (25-34) pg MCHC 29.2 L (32-36) g/dL RDW Std Deviation 56.8 H (36.4-46.3) fL RDW Coeff of Yazmin 20.6 H (11.5-14.5) % Plt Count 204 (130-400) K/uL MPV 8.7 (7.4-10.4) fL Immature Gran % (Auto) 0.3 % Neut % (Auto) 72.7 % Lymph % (Auto) 15.0 % Cook % (Auto) 8.8 % Eos % (Auto) 2.7 % Baso % (Auto) 0.5 % Immature Gran # (Auto) 0.01 (0.00-0.02) K/uL Neut # (Auto) 2.72 (1.4-6.5) K/uL Lymph # (Auto) 0.56 L (1.2-3.4) K/uL Cook # (Auto) 0.33 (0.11-0.59) K/uL Eos # (Auto) 0.10 (0-0.5) K/uL Baso # (Auto) 0.02 (0-0.2) K/uL Hypochromasia Present Anisocytosis Present Spherocytes 1+ ESR (0-21) mm/hr Sodium (136-145) mmol/L Potassium (3.5-5.1) mmol/L Chloride (98-107) mmol/L Carbon Dioxide (21-32) mmol/L Anion Gap (3-11) BUN (7-18) mg/dl Creatinine (0.6-1.2) mg/dl Est Cr Clr Drug Dosing ml/min Est GFR ( Amer) Est GFR (Non-Af Amer) BUN/Creatinine Ratio (10-20) Glucose (70-99) mg/dl POC Glucose 101 H (70-99) Estimat Average Glucose 111 mg/dl Hemoglobin A1c 5.5 (4.5-5.6) % Calcium (8.5-10.1) mg/dl C-Reactive Protein (0-0.29) mg/dl Diagnostic Findings Toe xray image personally reviewed by me and agree with the following: XR toe LT min 2V CLINICAL HISTORY: 58 years-old Female presenting with left great toe swelling, wound. TECHNIQUE: Frontal, oblique, and lateral views of the left first toe were obtained. COMPARISON: 10/30/2016. FINDINGS: Osteopenia. This limits evaluation for osseous erosion and nondisplaced fracture. Minimal osteophytosis at the first metatarsophalangeal joint. More significant degenerative change at the interphalangeal joint of the first toe where there is chronic subluxation. Chronic appearing deformity of the head of the proximal phalanx with complete joint space loss and erosive change at the interphalangeal joint. There is soft tissue swelling of the first toe. Possible overlying soft tissue erosion along the medial aspect of the toe at the level of the distal phalanx. No radiographic evidence of soft tissue emphysema. Diffuse subcutaneous edema evident more proximally in the foot. IMPRESSION: Erosive and deformity of changes at the interphalangeal joint of the first toe raises concern for septic arthritis. Evaluation is limited by osteopenia. MR could be considered for a more accurate delineation of potential septic arthritis/osteomyelitis.
--- NOTE | 2018-07-12 15:58 | GI REPORT ---
Patient Name: Chely Agrawal Procedure Date: 07/12/2018 3:09 PM Date of : 1960 Admit Type: Inpatient Age: 58 Gender: Female Attending MD: Rohan Coyle MD Procedure: Upper GI endoscopy Providers: Rohan Coyle MD Referring MD: Aditya Ivory, Nicky Vaughn Md Indications: Iron deficiency anemia Medicines: Fentanyl 100 micrograms IV, Propofol total dose 170 mg IV, Lidocaine 80 mg IV Complications: No immediate complications. Estimated Blood Loss: Estimated blood loss was minimal. Procedure: Pre-Anesthesia Assessment: - Prior to the procedure, a History and Physical was performed, and patient medications, allergies and sensitivities were reviewed. The patient's tolerance of previous anesthesia was reviewed. - The risks and benefits of the procedure and the sedation options and risks were discussed with the patient. All questions were answered and informed consent was obtained. After obtaining informed consent, the endoscope was passed under direct vision. Throughout the procedure, the patient's blood pressure, pulse, and oxygen saturations were monitored continuously. The Endoscope was introduced through the mouth, and advanced to the second part of duodenum. The upper GI endoscopy was accomplished without difficulty. The patient tolerated the procedure well. Findings: The Z-line was regular and was found 40 cm from the incisors. The examined esophagus was normal. The entire examined stomach was normal. The second portion of the duodenum was normal. Biopsies for histology were taken with a cold forceps for evaluation of celiac disease. Estimated blood loss was minimal. Impression: - Z-line regular, 40 cm from the incisors. - Normal esophagus. - Normal stomach. - Normal second portion of the duodenum. Biopsied. Recommendation: - [facility] care. Rohan Coyle M.D. Rohan Coyle MD 07/12/2018 3:58:12 PM This report has been signed electronically. Note Initiated On: 07/12/2018 3:09 PM Number of Addenda: 0 I attest to the content of the Intraoperative Record and orders documented therein, exceptions below {[id number]}
--- NOTE | 2018-07-12 16:00 | GI REPORT ---
Patient Name: Chely Agrawal Procedure Date: 07/12/2018 3:10 PM Date of : 1960 Admit Type: Inpatient Age: 58 Gender: Female Attending MD: Rohan Coyle MD Procedure: Colonoscopy Providers: Rohan Coyle MD Referring MD: Aditya Ivory, Nicky Vaughn Md Indications: Iron deficiency anemia Medicines: Fentanyl 100 micrograms IV, Propofol total dose 170 mg IV, Lidocaine 80 mg IV Complications: No immediate complications. Estimated Blood Loss: Estimated blood loss: none. Procedure: Pre-Anesthesia Assessment: - Prior to the procedure, a History and Physical was performed, and patient medications, allergies and sensitivities were reviewed. The patient's tolerance of previous anesthesia was reviewed. - The risks and benefits of the procedure and the sedation options and risks were discussed with the patient. All questions were answered and informed consent was obtained. After I obtained informed consent, the scope was passed under direct vision. Throughout the procedure, the patient's blood pressure, pulse, and oxygen saturations were monitored continuously. The scope was introduced through the anus and advanced to the terminal ileum. The colonoscopy was performed without difficulty. The patient tolerated the procedure well. The quality of the bowel preparation was good. Findings: A single small-mouthed diverticulum was found in the transverse colon. The terminal ileum appeared normal. Impression: - Diverticulosis in the transverse colon. - The examined portion of the ileum was normal. - No specimens collected. Recommendation: - Return [facility] to [facility] for [facility] care. Rohan Coyle M.D. Rohan Coyle MD 07/12/2018 4:00:20 PM This report has been signed electronically. Note Initiated On: 07/12/2018 3:10 PM Number of Addenda: 0 I attest to the content of the Intraoperative Record and orders documented therein, exceptions below {[id number]}
--- NOTE | 2018-07-12 16:28 | Anesthesiology Progress Note ---
Date of Service July 12, 2018 Anesthesia Post Procedure Vital Signs Vital Signs: Temp Pulse Pulse Resp BP BP Pulse Ox 07/12/18 16:15 59 L 16 151/89 H 94 07/12/18 16:02 60 16 163/104 H 95 07/12/18 15:48 61 12 133/86 98 07/12/18 14:52 36.8 C 67 67 18 172/81 H 95 07/12/18 07:36 36.4 C L 72 18 161/103 H 92 07/11/18 23:51 36.4 C L 57 L 18 146/84 H 92 07/11/18 22:01 36.4 C L 56 L 18 150/85 H 97 07/11/18 16:30 59 L 169/94 H 96 Notes Mental Status: alert / awake / arousable Patient Amnestic to Procedure: Yes Nausea / Vomiting: adequately controlled Pain: adequately controlled Airway Patency, RR, SpO2: stable & adequate BP & HR: stable & adequate Hydration State: stable & adequate Anesthetic Complications: no major complications apparent
--- NOTE | 2018-07-12 16:37 | Progress Note ---
DATE: 07/12/2018 The patient presents to the endoscopy center for evaluation of her iron deficiency anemia. She underwent an upper and lower endoscopy. The upper endoscopy was normal. Biopsies of the small intestine were obtained to rule out celiac disease. The colonoscopy showed a single diverticulum in the transverse colon. The terminal ileum was also entered and was normal. There was no source for bleeding or blood loss found anywhere within her digestive tract. IMPRESSION: The patient has essentially normal upper and lower endoscopies. No sign of GI blood loss. I will sign off the case at this time. Please contact me if any further GI input is needed.
--- NOTE | 2018-07-12 17:05 | Orthopedic Progress Note ---
Date of Service July 12, 2018 Subjective Unable to evaluate patient secondary to undergoing colonoscopy. Will proceed with MR of the foot. Physical Exam Vital Signs (Past 24 Hours): Last Vital Signs Temp 36.7 C 07/12/18 16:44 Pulse 61 07/12/18 16:58 Resp 20 07/12/18 16:58 BP 148/88 H 07/12/18 16:58 Pulse Ox 95 07/12/18 16:58
[2018-07-12] MEDS: LEVOTHYROXINE SODIUM 88 MCG TABLET PO SCH (19:41)
[2018-07-12] MEDS: LORazepam 1 MG TAB PO PRN (19:58)
[2018-07-12] MEDS: MONTELUKAST SODIUM 10 MG TABLET PO SCH (20:07)
[2018-07-13] MEDS: CEFEPIME 2,000 MG in SYRINGE 7.5 ML IV SCH ×3 (05:41→21:10)
[2018-07-13] MEDS: VANCOMYCIN HCL 1,500 MG in SODIUM CHLORIDE 0.9% 500 ML IV SCH ×2 (05:41→17:44)
[2018-07-13] MEDS: LEVOTHYROXINE SODIUM 88 MCG TABLET PO SCH (06:21)
[2018-07-13 07:48] LABS: Creatinine Clr Calc Pharmacy 135.8 ml/min; Est GFR (African American) 120.1; Est GFR (Non-African American) 103.6
[2018-07-13] MEDS: METOPROLOL SUCC 25MG EXT REL TAB PO SCH (07:59)
[2018-07-13] MEDS: BuPROPion XL 150 MG TABCR PO SCH (08:00)
[2018-07-13] MEDS: ESCITALOPRAM OXALATE 20 MG TAB PO SCH (08:00)
[2018-07-13] MEDS: AMIODARONE 200 MG TAB PO SCH (08:00)
[2018-07-13] MEDS: ATORVASTATIN 40 MG TAB PO SCH (08:01)
[2018-07-13] MEDS: MAGNESIUM OXIDE 400 MG TAB PO SCH ×2 (08:01→21:11)
[2018-07-13] MEDS: ONDANSETRON INJ 2 MG/ML 2 ML VIAL IV PRN (08:09)
[2018-07-13] MEDS: INSULIN ASPART 100 UNITS/ML 3 ML PEN SC SCH ×4 (08:12→21:14)
[2018-07-13 08:51] LABS: Hematocrit (blood only) 26.9 % (37-47); Hemoglobin 7.8 g/dL (12.0-16.0); Mean Corpuscular Volume 77.3 fL (80-100); Mean Platelet Volume 9.1 fL (7.4-10.4); Platelet Count 201 K/uL (130-400); RDW Coefficient of Variation 21.6 % (11.5-14.5); RDW Standard Deviation 58.6 fL (36.4-46.3); Red Blood Count 3.48 M/uL (4.2-5.4); White Blood Count 3.62 K/uL (4.8-10.8)
[2018-07-13 08:53] LABS: Anisocytosis Present; Basophils # (auto) 0.01 K/uL (0-0.2); Basophils % (auto) 0.3 %; Eosinophils # (auto) 0.15 K/uL (0-0.5); Eosinophils % (auto) 4.1 %; Hypochromasia Present; Immature Granulocytes # (auto) 0.01 K/uL (0.00-0.02); Immature Granulocytes % (auto) 0.3 %; Lymphocytes # (auto) 0.54 K/uL (1.2-3.4); Lymphocytes % (auto) 14.9 %; Monocytes # (auto) 0.26 K/uL (0.11-0.59); Monocytes % (auto) 7.2 %; Neutrophils # (auto) 2.65 K/uL (1.4-6.5); Neutrophils % (auto) 73.2 %; Spherocytes 1+
[2018-07-13 09:26] LABS: BUN Creatinine Ratio 6.6 (10-20); Calcium 8.2 mg/dl (8.5-10.1); Creatinine Clr Calc Pharmacy 138.2 ml/min; Est GFR (African American) 120.8; Est GFR (Non-African American) 104.2; Potassium 4.2 mmol/L (3.5-5.1)
[2018-07-13] MEDS ORDERED: LORazepam 0.5 MG TAB PO STA (12:42)
[2018-07-13] MEDS ORDERED: IRON SUCROSE 200 MG in 0.9 % SODIUM CHLORIDE 100 ML IV ONE (13:15)
[2018-07-13] MEDS ORDERED: VANCOMYCIN TROUGH ONE (13:30)
--- NOTE | 2018-07-13 14:17 | Infectious Disease Progress Nt ---
Date of Service July 13, 2018 remains on IV abx, tolerating well. s/p colonoscopy and EGD. afebrile. wbc 3.6. blood cultures remain negative, s/p ortho eval, sugggested MRI, was refusing MRI on my exam yesterday. ESR normal at 13. Assessment & Plan (1) Wound of right leg: will continue abx, cefepime will treat E. coli in urine as well. no gu symptoms, esr normal, doubt osteo. follow cultures, MRI. will transition back to bactrim upon d/c with plans to continue follow up with Dr. Cyr in wound center. If any drainage from toe, will obtain culture. Physical Exam Vital Signs (Past 24 Hours): Last Vital Signs Temp 36.3 C L 07/13/18 07:17 Pulse 65 07/13/18 07:17 Resp 20 07/13/18 07:17 BP 155/89 H 07/13/18 07:17 Pulse Ox 89 L 07/13/18 07:17 Results & Data Laboratory Results Microbiology 07/09/18 18:15 Urine,Clean Catch Urine Culture - Final Escherichia coli
--- NOTE | 2018-07-13 15:01 | Psychiatric Consultation ---
Date of Consultation July 13, 2018 Impression / Recommendations Impression 58-year-old woman admitted medically with multiple medical problems, including anemia. Workup under way. We are consulted to evaluate depression. The patient readily admits that she is depressed and anxious. These things seem to have worsens as her medical conditions have worsened. She is drinking to cope with her anxiety which in turn is making her depression and anxiety worse. She says that she would like to cut back but tends to throw up barriers when talking about ways she might do that. She is clearly not thriving in her current living arrangement as she is living in a two-story structure and can only maneuver about the first floor where there is not a bathroom. She would benefit from assistance exploring alternate housing arrangements. She would also like assistance in exploring how to apply for disability and what impact this would have to her income. She is agreeable to psychiatric follow-up and I will have the liaison nurse facilitate a referral to [facility]. Although she says she has had thoughts of suicide, these do not appear to be active and so I do not think she meets criteria for inpatient mental health treatment at this time. Ideally she would benefit from being in a supervised living situation as she fears being alone, fears falling and perhaps at the time of discharge depending on her treatment for her left lower extremity, she may meet criteria for short- term rehab stay at an SNF. We will follow along with you. She has also agreed to have her medications changed. She has been on Lexapro and Wellbutrin for many years. I am hesitant to increase Wellbutrin as it may accelerate her anxiety and with her medical conditions, I am hesitant to take her Lexapro dose higher. We will start a cross taper to Effexor starting with 75 mg daily while we cut both the Wellbutrin and Lexapro in half starting tomorrow. (1) Depression: 07/13 - REduce Wellbutrin to 75 mg daily and Lexapro to 10 mg daily - Start Effexor XR 75 mg daily - Refer to [facility] for psychiatric aftercare (2) Anxiety: Risk Factors Assessment Male: No : Yes Do You Have Access To A Gun?: No Health Problems: Yes Mental Health Diagnoses: Yes Substance Use Disorders: Yes Previous Attempt: No Family History of Suicide: No Previous Psychiatric Hospitalization: No Smoker: No Protective Factors Assessment : No Responsible for Young Children: No Employed: Yes Stable Relationships: Yes Supportive Family: Yes CPT Code 23598 Psych History Identifying Data 58-year-old female with multiple medical conditions including left leg wound, hypothyroidism, anemia, hyponatremia, diabetes, dyslipidemia, hypertension, asthma, anxiety, depression, who was referred to the ER from her outpatient PCPs office due to anemia discovered on lab work. She was admitted for medical management. We are consulted to evaluate depression. Information is gathered from the patient, the patient's sister who is at present for the interview with the patient's permission, and both are considered to be reliable. Chief Complaint "I get crazy.". History of Present Illness The patient is a 58-year-old woman who lives alone, with the below listed multiple medical conditions, who was referred to the ED due to anemia found on labs through her PCPs office. She has been undergoing workup, yesterday having had a colonoscopy which was negative for acute bleeding. She also has diabetes, multiple consequences of that including a left lower extremity wound and is seen at the wound clinic. During the course of her hospitalization, the patient has appeared quite anxious, frequently tearful resulting in this consult. We attempted to see the patient each of the last 2 days but she declined due to not feeling up to it. Today she is visiting with her sister and willing for a conversation. She would like her sister to stay while we chat. She is seated in the bedside chair. She admits that she has been feeling depressed and anxious. This is been long-standing but getting worse since she has become more immobile. She has not driven herself since the fall when she last fell and rarely leaves the house except to go to work at the [employer] and to get her groceries. Her sister comments that she is "[place] phobic" meaning that she rarely leaves her own home. The patient describes it as "crippling anxiety" that makes her sick to the point of vomiting. She relies on assistance from friends to be driven to and from work and she gets extremely anxious about getting over the curb and into the car during these trips. Every morning she vomits that she thinks about it. She also admits to indulging in alcohol more and more frequently as a coping strategy for her anxiety. She admits that when she gets home from work she starts mixing drinks and will go through for 5 throughout the evening before 10 PM she says it helps her to feel less anxious describing it as "numb". She has a lot of pain in her left knee status post knee replacement which also causes her discomfort and impairs her gait. She lives in a two-story home, does not feel she can get up the stairs due to her concern for falling which she has done several times, and so therefore lives on the first floor where there is not a bathroom. She relies on a bedside commode and diapers and those things are dealt with the following day with the assistance of a friend. She has been looking into changing apartments to either something with one floor living or something that would be in a [facility] so that she would be around other people, but she makes too much in her job to afford those and cannot afford to stop working because within the next year she will be vested enough to have her insurance paid for in shelter. She has considered going on disability due to her impairments and is not sure how to go about this or how this would impact her income and ability to get a new apartment. She feels that she is overwhelmed with all that she has to consider and finds herself waking every night with a panic attack. She admits to having some suicidal thinking more a passive wish than anything. She has also been stressed because they have lost 2 siblings in the last year to cancer. This has made her medical workup although more frightening for her as one brother from colon cancer and a second sister also from cancer. Each test she has she fears that it will reveal some form of cancer. She denies ever having had any auditory or visual Past Psychiatric History Previous Psych History: Therapy years ago Outpatient Services: None Previous Psych Admissions: None Do You Have Access To A Gun?: No History of Previous Suicide Attempt: No Past Medication Trials: Prozac Allergies Allergy/AdvReac Type Severity Reaction Status Date / Time Penicillins Allergy Unknown UNKNOWN Verified 07/09/18 16:37 Home Medications Home Medications Medication Instructions Recorded Confirmed Type acetaminophen 325 mg capsule 650 mg PO Q6H PRN cap 12/24/17 07/09/18 History amiodarone 200 mg tablet 200 mg PO DAILY 12/24/17 07/09/18 History atorvastatin 40 mg tablet 40 mg PO DAILY 12/24/17 07/09/18 History bupropion HCl XL 150 mg 24 hr 150 mg PO QAM 12/24/17 07/09/18 History tablet, extended release cholecalciferol (vitamin D3) 1,000 1,000 units PO DAILY 12/24/17 07/09/18 History unit capsule cyanocobalamin (vitamin B-12) 1,000 mcg PO DAILY 12/24/17 07/09/18 History 1,000 mcg capsule escitalopram 20 mg tablet 20 mg PO DAILY 12/24/17 07/09/18 History fluticasone propionate 250 1 inha INH DAILY ea 12/24/17 07/09/18 History mcg/actuation blister powder for inhalation magnesium oxide 400 mg capsule 400 mg PO BID cap 12/24/17 07/09/18 History metformin 1,000 mg tablet 1,000 mg PO BID 12/24/17 07/09/18 History metoprolol succinate ER 50 mg 75 mg PO DAILY tab 12/24/17 07/09/18 History tablet,extended release 24 hr montelukast 10 mg tablet 10 mg PO QPM 12/24/17 07/09/18 History rivaroxaban 20 mg tablet 20 mg PO DAILY 12/24/17 07/09/18 History sulfamethoxazole 800 1 tab PO BID tab 12/24/17 07/09/18 History mg-trimethoprim 160 mg tablet levothyroxine 75 mg PO DAILY 06/30/18 07/09/18 History naproxen sodium [Aleve] 440 mg PO DAILY PRN 07/09/18 07/09/18 History Family History Brothers and sisters with depression and anxiety. Brothers with problems with alcohol Substance Abuse History Admits to alcohol abuse over the course of years. Denies ever having had DTs or withdrawal seizures. Currently drinking 4-5 shots of vodka every evening. Has been to AA in the past but did not like it. Personal History Living Arrangements: [place]artment Childhood: Grew up in [place]. Has an Associates degree and works at [employer] at [employer]. Highest Grade Completed: College Highest Grade Completed Comment: Associates degree Employment Status: [employer] Employed (Currently on FMLA) Marital Status: Single Beliefs That Will Affect Care: None Patient History Medical History Diabetes (Chronic) Hypercholesteremia (Chronic) Hypertension (Chronic) Asthma (Chronic) Anxiety (Chronic) Depression (Chronic) Abscess or cellulitis of foot (Resolved 08/25/13) Diabetic foot infection (Resolved 08/25/13) Cellulitis of third toe, left (Resolved) Osteomyelitis (Chronic) Acute renal failure Arterial hemorrhage (Acute) Hypomagnesemia Laceration of left leg (Acute) Paroxysmal a-fib (Resolved) Partial thickness burn of right hand (Acute) Patellar fracture Surgical History Post-operative state (Resolved) Family History Other Family history non-contributory Heart disease Social History Communication Ability: Effective Beliefs That Will Affect Care: None marital status: Single Current Living Situation: Alone Other Information That Helps Us Care for You: No Feels Safe at Home: Hesitant to Answer Safety Concerns: Afraid for Self Smoking Status: Former smoker Hx Alcohol Use: Yes Hx Substance Use: No Physical Exam Psychiatric Orientation: alert, oriented x 3 and cooperative Apperance: appropriately dressed and appropriately groomed Eye Contact: good eye contact Motor Behavior: no abnormal motor movements Speech: normal rate/rhythm/volume of speech Tearful at times Affect: + tearful affect Mood: + depressed mood and + anxious mood Thought Process: goal directed thought process Thought Content: reality based without delusions Suicidal Thoughts: + reports suicidal thoughts Homicidal Thoughts: denies homicidal thoughts Hallucinations: no auditory hallucinations and no visual hallucinations Cognition: recent memory grossly intact, remote memory grossly intact and attention grossly intact Estimated Intelligence: consistent with education level Insight: + limited insight Judgement: + limited judgement Vital Signs (Past 24 Hours) Last Vital Signs Temp 36.3 C L 07/13/18 07:17 Pulse 65 07/13/18 07:17 Resp 20 07/13/18 07:17 BP 155/89 H 07/13/18 07:17 Pulse Ox 89 L 07/13/18 07:17 Review of Systems All systems reviewed & are unremarkable except as noted in HPI & below Left lower extremity pain Results & Data Medications Administered Amiodarone HCl (Cordarone) 200 mg PO DAILY BRIANDA Stop: 08/09/18 08:59 Last Admin: 07/13/18 08:00 Dose: 200 mg Documented by: [id number] Admin: 07/12/18 07:58 Dose: 200 mg Documented by: [id number] Admin: 07/11/18 07:47 Dose: 200 mg Documented by: [id number] Admin: 07/10/18 08:46 Dose: 200 mg Documented by: [id number] Atorvastatin Calcium (Lipitor) 40 mg PO DAILY BRIANDA Stop: 08/10/18 08:59 Last Admin: 07/13/18 08:01 Dose: 40 mg Documented by: [id number] Admin: 07/12/18 07:58 Dose: 40 mg Documented by: [id number] Admin: 07/11/18 07:49 Dose: 40 mg Documented by: [id number] Bupropion HCl (Wellbutrin-Xl) 150 mg PO QAM BRIANDA Stop: 08/09/18 08:59 Last Admin: 07/13/18 08:00 Dose: 150 mg Documented by: [id number] Admin: 07/12/18 07:59 Dose: 150 mg Documented by: [id number] Admin: 07/11/18 07:49 Dose: 150 mg Documented by: [id number] Admin: 07/10/18 08:46 Dose: 150 mg Documented by: [id number] Escitalopram Oxalate (Lexapro) 20 mg PO DAILY BRIANDA Stop: 08/09/18 08:59 Last Admin: 07/13/18 08:00 Dose: 20 mg Documented by: [id number] Admin: 07/12/18 07:59 Dose: 20 mg Documented by: [id number] Admin: 07/11/18 07:47 Dose: 20 mg Documented by: [id number] Admin: 07/10/18 08:45 Dose: Not Given Documented by: [id number] Cefepime HCl 2,000 mg/ Syringe 20 mls @ 5.5 mls/min IV Q8 BRIANDA Stop: 07/21/18 22:14 Last Admin: 07/13/18 13:00 Dose: 5.5 mls/min Documented by: [id number] Admin: 07/13/18 05:41 Dose: 5.5 mls/min Documented by: [id number] Admin: 07/12/18 23:25 Dose: 5.5 mls/min Documented by: [id number] Admin: 07/12/18 16:59 Dose: 5.5 mls/min Documented by: [id number] Admin: 07/12/18 06:05 Dose: 5.5 mls/min Documented by: [id number] Admin: 07/11/18 22:51 Dose: 5.5 mls/min Documented by: [id number] Vancomycin HCl 1,500 mg/ (Sodium Chloride) 530 mls @ 200 mls/hr IV Q10H BRIANDA Stop: 07/22/18 08:59 Last Infusion: 07/13/18 09:17 Dose: 0 mls/hr Documented by: [id number] Admin: 07/13/18 05:41 Dose: 200 mls/hr Documented by: [id number] Infusion: 07/12/18 22:40 Dose: 0 mls/hr Documented by: [id number] Admin: 07/12/18 20:00 Dose: 200 mls/hr Documented by: [id number] Infusion: 07/12/18 11:55 Dose: 0 mls/hr Documented by: [id number] Admin: 07/12/18 09:15 Dose: 200 mls/hr Documented by: [id number] Insulin Aspart (Novolog Flexpen) 0 units SC ACHS BRIANDA Stop: 08/09/18 11:29 Last Admin: 07/13/18 12:59 Dose: 1 units Documented by: [id number] Cosigned by: [id number] Admin: 07/13/18 08:12 Dose: 3 units Documented by: [id number] Cosigned by: [id number] Admin: 07/12/18 20:17 Dose: Not Given Documented by: [id number] Cosigned by: [id number] Admin: 07/12/18 17:00 Dose: Not Given Documented by: [id number] Cosigned by: [id number] Admin: 07/12/18 11:45 Dose: Not Given Documented by: [id number] Cosigned by: [id number] Admin: 07/12/18 09:01 Dose: Not Given Documented by: [id number] Cosigned by: [id number] Admin: 07/11/18 22:04 Dose: Not Given Documented by: [id number] Cosigned by: [id number] Admin: 07/11/18 17:55 Dose: Not Given Documented by: [id number] Cosigned by: [id number] Admin: 07/11/18 12:18 Dose: Not Given Documented by: [id number] Cosigned by: [id number] Admin: 07/11/18 07:49 Dose: Not Given Documented by: [id number] Cosigned by: [id number] Admin: 07/10/18 20:28 Dose: Not Given Documented by: [id number] Cosigned by: [id number] Admin: 07/10/18 16:40 Dose: Not Given Documented by: [id number] Cosigned by: [id number] Admin: 07/10/18 11:26 Dose: Not Given Documented by: [id number] Cosigned by: [id number] Levothyroxine Sodium (Synthroid) 88 mcg PO DAILYBB [facility] Stop: 08/11/18 06:29 Last Admin: 07/13/18 06:21 Dose: 88 mcg Documented by: [id number] Admin: 07/12/18 19:41 Dose: Not Given Documented by: [id number] Lorazepam (Ativan) 1 mg PO UD PRN; Protocol PRN Reason: EtoH Withdrawal AWSS 6-10 Stop: 07/13/18 18:56 Last Admin: 07/12/18 19:58 Dose: 1 mg Documented by: [id number] Admin: 07/11/18 16:57 Dose: 1 mg Documented by: [id number] Admin: 07/11/18 07:46 Dose: 1 mg Documented by: [id number] Admin: 07/10/18 19:25 Dose: 1 mg Documented by: [id number] Magnesium Oxide (Mag-Ox) 400 mg PO BID [facility] Stop: 08/08/18 21:14 Last Admin: 07/13/18 08:01 Dose: 400 mg Documented by: [id number] Admin: 07/12/18 20:07 Dose: 400 mg Documented by: [id number] Admin: 07/12/18 07:59 Dose: 400 mg Documented by: [id number] Admin: 07/11/18 21:20 Dose: 400 mg Documented by: [id number] Admin: 07/11/18 07:48 Dose: 400 mg Documented by: [id number] Admin: 07/10/18 20:40 Dose: 400 mg Documented by: [id number] Admin: 07/10/18 08:46 Dose: 400 mg Documented by: [id number] Admin: 07/09/18 22:13 Dose: 400 mg Documented by: [id number] Metoprolol Succinate (Toprol Xl) 75 mg PO DAILY [facility] Stop: 08/09/18 08:59 Last Admin: 07/13/18 07:59 Dose: 75 mg Documented by: [id number] Admin: 07/12/18 07:59 Dose: 75 mg Documented by: [id number] Admin: 07/11/18 07:48 Dose: Not Given Documented by: [id number] Admin: 07/10/18 08:45 Dose: Not Given Documented by: [id number] Miscellaneous (Order Awaiting Action) 1 ea N/A QS [facility] Stop: 08/09/18 00:00 Last Admin: 07/13/18 08:01 Dose: Not Given Documented by: [id number] Admin: 07/13/18 03:21 Dose: Not Given Documented by: [id number] Admin: 07/12/18 17:00 Dose: Not Given Documented by: [id number] Admin: 07/12/18 09:03 Dose: Not Given Documented by: [id number] Admin: 07/11/18 23:45 Dose: Not Given Documented by: [id number] Admin: 07/11/18 15:06 Dose: Not Given Documented by: [id number] Admin: 07/11/18 07:46 Dose: Not Given Documented by: [id number] Admin: 07/11/18 01:02 Dose: Not Given Documented by: [id number] Admin: 07/10/18 11:29 Dose: Not Given Documented by: [id number] Admin: 07/10/18 07:24 Dose: Not Given Documented by: [id number] Admin: 07/09/18 23:12 Dose: Not Given Documented by: [id number] Montelukast Sodium (Singulair) 10 mg PO QPM [facility] Stop: 08/09/18 20:59 Last Admin: 07/12/18 20:07 Dose: 10 mg Documented by: [id number] Admin: 07/11/18 21:20 Dose: 10 mg Documented by: [id number] Admin: 07/10/18 20:40 Dose: 10 mg Documented by: [id number] Ondansetron HCl (Zofran) 4 mg IV Q6H PRN PRN Reason: Nausea Stop: 08/08/18 20:41 Last Admin: 07/13/18 08:09 Dose: 4 mg Documented by: [id number] Trimethoprim/Sulfamethoxazole (Septra Ds 800/160mg Tab) 1 tab PO BID [facility] Stop: 08/20/18 20:59 Last Admin: 07/11/18 21:20 Dose: 1 tab Documented by: [id number] Admin: 07/11/18 07:49 Dose: 1 tab Documented by: [id number] Admin: 07/10/18 20:40 Dose: 1 tab Documented by: [id number] Admin: 07/10/18 08:45 Dose: 1 tab Documented by: [id number] Admin: 07/09/18 22:13 Dose: 1 tab Documented by: [id number]
--- NOTE | 2018-07-13 15:34 | Pharmacy Report ---
Pharmacy Abx Dose Progress Nt - Date of Service July 13, 2018 - Pharmacy Dosing Scope The patient is currently receiving the following antimicrobial agents per Pharmacy consult: vancomycin 1500 mg IV every 10 hours - Objective Vital Signs (Past 12hrs): Vital Signs Temp Pulse Resp BP Pulse Ox 07/13/18 07:17 36.3 C L 65 20 155/89 H 89 L Lab Results (24hrs): Laboratory Tests (24 Hours) 07/13/18 07/13/18 07/13/18 13:33 07:34 07:34 WBC 3.62 L Neut # (Auto) 2.65 Creatinine 0.56 L Est Cr Clr Drug Dosing 138.2 Vancomycin Trough 26.2 07/13/18 07:05 WBC Neut # (Auto) Creatinine 0.57 L Est Cr Clr Drug Dosing 135.8 Vancomycin Trough Micro Results: 07/09/18 18:15 Urine Culture - Final Urine,Clean Catch Escherichia coli - Assessment & Plan Assessment 58 year old F admitted with infection of left great toe with concern for osteo/septic joint on X-ray. Patient refusing MRI. * h/o chronic right knee infection on bactrim. Pt follows with Dr. Cyr at wound center but has been reportedly non compliant. Bactrim placed on hold while patient is receiving vancomycin IV. Plan Vancomycin IV * Trough level of 26.2 mcg/mL is supratherapeutic. Of note, trough level was drawn 1 hour early and dose prior to level was given 40 min late, therefore actual trough is likely closer to 20 mcg/mL. * Change to 1500 mg IV every 12 hours (to allow for likely drug accumulation with BMI= 45) * Goal trough level for ?septic joint/osteo : 15 to 20 mcg/mL * Will repeat trough level on 07/15 if vancomycin IV is continued. Also on cefepime 2000 mg IV q8h- not pharm consult Pharmacy will continue to follow and will adjust dose/frequency as necessary. Thank you.
--- NOTE | 2018-07-13 17:06 | Orthopedic Consultation ---
Date of Consultation July 13, 2018 Assessment & Plan (1) Osteomyelitis: She was seen and examined by Dr. Guzman today as well. He did recommend amputation of the left great toe and second toe. We will add her on to the OR schedule for tomorrow afternoon for this and make her npo after midnight. She wants to proceed with this. History of Present Illness Reason for Consultation: Left great toe osteomyelitis Attending Physician: Carlos Cárdenas History of Present Illness Chely is a 58 y/o female with diabetes, diabetic neuropathy, that we were consulted to see regarding left great toe osteomyelitis. She was admitted for this hospitalization for anemia. She states that she had been diagnosed with OM of the great toe about 2 years and had been seeing Dr. Contreras at that time. She did have a debridement done on the toe and was on antibiotics from the ID service and things seemed to improve. She would get occasional swelling of the great toe but it would resolve. Prior to this Dr. Contreras had amputated her left 3rd toe. About 2 weeks ago she again developed the swelling hin her great toe and second toe and developed a blister on the great toe. She is also on antibiotics now for a wound on the right leg as well. She denies any pain. Her complete history was reviewed and refer to admission [facility] & P. Allergies Allergy/AdvReac Type Severity Reaction Status Date / Time Penicillins Allergy Unknown UNKNOWN Verified 07/09/18 16:37 Home Medications Home Medications Medication Instructions Recorded Confirmed Type acetaminophen 325 mg capsule 650 mg PO Q6H PRN cap 12/24/17 07/09/18 History amiodarone 200 mg tablet 200 mg PO DAILY 12/24/17 07/09/18 History atorvastatin 40 mg tablet 40 mg PO DAILY 12/24/17 07/09/18 History bupropion HCl XL 150 mg 24 hr 150 mg PO QAM 12/24/17 07/09/18 History tablet, extended release cholecalciferol (vitamin D3) 1,000 1,000 units PO DAILY 12/24/17 07/09/18 History unit capsule cyanocobalamin (vitamin B-12) 1,000 mcg PO DAILY 12/24/17 07/09/18 History 1,000 mcg capsule escitalopram 20 mg tablet 20 mg PO DAILY 12/24/17 07/09/18 History fluticasone propionate 250 1 inha INH DAILY ea 12/24/17 07/09/18 History mcg/actuation blister powder for inhalation magnesium oxide 400 mg capsule 400 mg PO BID cap 12/24/17 07/09/18 History metformin 1,000 mg tablet 1,000 mg PO BID 12/24/17 07/09/18 History metoprolol succinate ER 50 mg 75 mg PO DAILY tab 12/24/17 07/09/18 History tablet,extended release 24 hr montelukast 10 mg tablet 10 mg PO QPM 12/24/17 07/09/18 History rivaroxaban 20 mg tablet 20 mg PO DAILY 12/24/17 07/09/18 History sulfamethoxazole 800 1 tab PO BID tab 12/24/17 07/09/18 History mg-trimethoprim 160 mg tablet levothyroxine 75 mg PO DAILY 06/30/18 07/09/18 History naproxen sodium [Aleve] 440 mg PO DAILY PRN 07/09/18 07/09/18 History Patient History Medical History Diabetes (Chronic) Hypercholesteremia (Chronic) Hypertension (Chronic) Asthma (Chronic) Anxiety (Chronic) Depression (Chronic) Abscess or cellulitis of foot (Resolved 08/25/13) Diabetic foot infection (Resolved 08/25/13) Cellulitis of third toe, left (Resolved) Osteomyelitis (Chronic) Acute renal failure Arterial hemorrhage (Acute) Hypomagnesemia Laceration of left leg (Acute) Paroxysmal a-fib (Resolved) Partial thickness burn of right hand (Acute) Patellar fracture Surgical History Post-operative state (Resolved) Family History Other Family history non-contributory Heart disease Social History Communication Ability: Effective Beliefs That Will Affect Care: None marital status: Single Current Living Situation: Alone Other Information That Helps Us Care for You: No Feels Safe at Home: Hesitant to Answer Safety Concerns: Afraid for Self Smoking Status: Former smoker Hx Alcohol Use: Yes Hx Substance Use: No Physical Exam Vital Signs (Past 24 Hours): Last Vital Signs Temp 36.9 C 07/13/18 15:42 Pulse 58 L 07/13/18 15:42 Resp 18 07/13/18 15:42 BP 163/94 H 07/13/18 15:42 Pulse Ox 93 07/13/18 15:42 Musculoskeletal: Left foot: Diffuse edema, including her great toe and second toe. There is some purulent drainage at the distal end of the great toe/nail and some erythema and odor. Results & Data Diagnostic Findings xrays of the left great toe show some erosive changes of the IP joint and proximal phalanx. Does not appear to involve the metatarsal
[2018-07-13] MEDS: LORazepam 1 MG TAB PO PRN (17:41)
[2018-07-13] MEDS: MONTELUKAST SODIUM 10 MG TABLET PO SCH (21:11)
--- NOTE | 2018-07-13 22:10 | Hospitalist Progress Note ---
Date of Service July 13, 2018 Assessment & Plan (1) Severe anemia: acute/chronic Iron deficiency anemia with baseline hgb 9. s/p 2 units PRBCs. decompensated hypothyroidism could also be contributing to anemia. b12/folate wnl. EGD/Colonoscopy on 07/12 without any abnormalities. duodenal biopsies negative for celiac. outpatient capsule endoscopy? defer to GI. patient reports poor oral iron tolerance. thus, will give IV venofer 200mg x 1 today. cbc in am. Present on Admission?: Yes (2) Pyogenic granuloma: Left great toe with possible septic arthritis and/or osteomyelitis. Seen by orthopedics. Plan - amputation of 1st/2nd toes left foot. MRI canceled. NPO after MN tonight for OR tomorrow. (3) Hyponatremia: Baseline is around 133-135 Nephrology consulted and thinks etiology from combination of decreased EAV from acute on chronic blood loss anemia, hypothyroidism, SSRI therapy. Lowest Na was 117 this admission. Now 131 x 48 hours. BMP in am. Present on Admission?: Yes (4) Hypomagnesemia: replaced and resolved (5) Diabetes: hemoglobin A1c normal at 5.5% controlled holding metformin (6) Hypercholesteremia: statin (7) Hypertension: Continue home Toprol-XL 75 mg daily (8) Asthma: Cont Flovent, Singulair No exacerbation at this time (9) Anxiety: Psych consult appreciated They are reducing wellbutrin and lexapro; effexor xr being added (10) Depression: Psych consult appreciated see above in "anxiety" (11) Osteomyelitis: Chronic in the right knee Chronically takes bactrim; on hold while on cefepime and Vanco Present on Admission?: Yes (12) Paroxysmal a-fib: Continue home amiodarone, Toprol-XL Holding Xarelto due to anemia (13) Hypothyroid: Decompensated. Increased levothyroxine to 88 mcg and repeat TSH in 4 weeks. (14) Alcohol use: Withdrawal protocol in place Ativan PRN Could have contributed to her hyponatremia (15) VALERIE (obstructive sleep apnea): Continue nocturnal O2 (16) Open wound of knee: wound care with Aquacel AG and Optifoam antibiotics (17) UTI (urinary tract infection): 2nd E. coli. abx for toe will cover. (18) DVT prophylaxis: chemical means contraindicated due to ongoing concern of occult GI blood loss. SCDs. Subjective patient very anxious about all the different issues going on. denies any significant pain today. denies any overt melena or BRBPR. she states she has tolerated oral iron poorly in the past. denies tremors. denies feeling like she is going through withdrawal. Constitutional: no fever and no chills Respiratory: no cough and no dyspnea Cardiovascular: no chest pain Gastrointestinal: no abdominal pain, no nausea and no vomiting eating well; taking in 100% of meals Physical Exam Vital Signs (Past 24 Hours): Last Vital Signs Temp 36.9 C 07/13/18 15:42 Pulse 58 L 07/13/18 15:42 Resp 18 07/13/18 15:42 BP 163/94 H 07/13/18 15:42 Pulse Ox 93 07/13/18 15:42 Constitutional: + ill appearing and + morbidly obese; no acute distress ENMT: external ear and nose normal, oropharynx normal Respiratory: normal respiratory effort, lungs clear to auscultation Cardiovascular: RRR, no murmur, no edema Heart Sounds: normal S1 and normal S2 Vessels: posterior tibial pulses present and dorsalis pedis pulses present; no JVD Gastrointestinal (Abdomen): normal bowel sounds, soft, nontender, no hepatosplenomegaly Musculoskeletal: right knee - open wound that is on tibial plateau area inferior to knee joint; yellow discharge noted. left great toe - pyogenic granuloma with erythema present; hammer toes of remaining toes left foot. Psychiatric: Orientation: alert and oriented x 3 Affect: + anxious affect Results & Data Laboratory Results Laboratory Results - last 24 hr 07/13/18 07/13/18 07/13/18 07:05 07:31 07:34 WBC 3.62 L RBC 3.48 L Hgb 7.8 L Hct 26.9 L MCV 77.3 L MCH 22.4 L MCHC 29.0 L RDW Std Deviation 58.6 H RDW Coeff of Yazmin 21.6 H Plt Count 201 MPV 9.1 Immature Gran % (Auto) 0.3 Neut % (Auto) 73.2 Lymph % (Auto) 14.9 [place] % (Auto) 7.2 Eos % (Auto) 4.1 Baso % (Auto) 0.3 Immature Gran # (Auto) 0.01 Neut # (Auto) 2.65 Lymph # (Auto) 0.54 L [place] # (Auto) 0.26 Eos # (Auto) 0.15 Baso # (Auto) 0.01 Hypochromasia Present Anisocytosis Present Spherocytes 1+ Sodium Potassium Chloride Carbon Dioxide Anion Gap BUN Creatinine 0.57 L Est Cr Clr Drug Dosing 135.8 Est GFR ( Amer) 120.1 Est GFR (Non-Af Amer) 103.6 BUN/Creatinine Ratio Glucose POC Glucose 94 Calcium Vitamin B12 Vancomycin Trough 07/13/18 07/13/18 07/13/18 07:34 07:34 11:42 WBC RBC Hgb Hct MCV MCH MCHC RDW Std Deviation RDW Coeff of Yazmin Plt Count MPV Immature Gran % (Auto) Neut % (Auto) Lymph % (Auto) [place] % (Auto) Eos % (Auto) Baso % (Auto) Immature Gran # (Auto) Neut # (Auto) Lymph # (Auto) [place] # (Auto) Eos # (Auto) Baso # (Auto) Hypochromasia Anisocytosis Spherocytes Sodium 131 L Potassium 4.2 Chloride 100 Carbon Dioxide 25 Anion Gap 6.0 BUN 4 L Creatinine 0.56 L Est Cr Clr Drug Dosing 138.2 Est GFR ( Amer) 120.8 Est GFR (Non-Af Amer) 104.2 BUN/Creatinine Ratio 6.6 L Glucose 81 POC Glucose 116 H Calcium 8.2 L Vitamin B12 > 2000 H Vancomycin Trough 07/13/18 07/13/18 07/13/18 13:33 16:42 20:10 WBC RBC Hgb Hct MCV MCH MCHC RDW Std Deviation RDW Coeff of Yazmin Plt Count MPV Immature Gran % (Auto) Neut % (Auto) Lymph % (Auto) [place] % (Auto) Eos % (Auto) Baso % (Auto) Immature Gran # (Auto) Neut # (Auto) Lymph # (Auto) [place] # (Auto) Eos # (Auto) Baso # (Auto) Hypochromasia Anisocytosis Spherocytes Sodium Potassium Chloride Carbon Dioxide Anion Gap BUN Creatinine Est Cr Clr Drug Dosing Est GFR ( Amer) Est GFR (Non-Af Amer) BUN/Creatinine Ratio Glucose POC Glucose 122 H 116 H Calcium Vitamin B12 Vancomycin Trough 26.2 (1) UTI (urinary tract infection) Urinary tract infection type: acute cystitis Hematuria presence: without hematuria Qualified Code(s): N30.00 - Acute cystitis without hematuria (2) Open wound of knee Encounter type: subsequent encounter Laterality: right Qualified Code(s): S81.001D - Unspecified open wound, right knee, subsequent encounter (3) Diabetes Diabetes mellitus type: type 2 Diabetes mellitus usp insulin use: without usp use Diabetes mellitus complication status: with neurologic complications Diabetes mellitus complication detail: with unspecified neuropathy Qualified Code(s): E11.40 - Type 2 diabetes mellitus with diabetic neuropathy, unspecified (4) Depression Depression Type: unspecified Qualified Code(s): F32.9 - Major depressive disorder, single episode, unspecified (5) Hypothyroid Hypothyroidism type: acquired Qualified Code(s): E03.9 - Hypothyroidism, unspecified (6) Hypertension Hypertension type: essential hypertension Qualified Code(s): I10 - Essential (primary) hypertension (7) Asthma Asthma severity: mild Asthma persistence: intermittent Asthma complication type: unspecified Qualified Code(s): J45.20 - Mild intermittent asthma, uncomplicated (8) Osteomyelitis Osteomyelitis type: chronic, with draining sinus Osteomyelitis location: tibia Laterality: right Qualified Code(s): M86.461 - Chronic osteomyelitis with draining sinus, right tibia and fibula
[2018-07-14] MEDS: CEFEPIME 2,000 MG in SYRINGE 7.5 ML IV SCH ×3 (05:21→21:57)
[2018-07-14] MEDS: VANCOMYCIN HCL 1,500 MG in SODIUM CHLORIDE 0.9% 500 ML IV SCH ×2 (05:21→17:59)
[2018-07-14] MEDS: LEVOTHYROXINE SODIUM 88 MCG TABLET PO SCH (05:28)
[2018-07-14 06:33] LABS: Hematocrit (blood only) 26.7 % (37-47); Hemoglobin 7.7 g/dL (12.0-16.0); Mean Corpuscular Hgb Conc 28.8 g/dL (32-36); Mean Corpuscular Volume 78.5 fL (80-100); Mean Platelet Volume 8.8 fL (7.4-10.4); Platelet Count 179 K/uL (130-400); RDW Coefficient of Variation 21.9 % (11.5-14.5); RDW Standard Deviation 60.8 fL (36.4-46.3); White Blood Count 4.29 K/uL (4.8-10.8)
[2018-07-14 06:43] LABS: BUN Creatinine Ratio 9.8 (10-20); Calcium 8.5 mg/dl (8.5-10.1); Creatinine Clr Calc Pharmacy 102.9 ml/min; Est GFR (Non-African American) 90.6; Potassium 4.2 mmol/L (3.5-5.1)
[2018-07-14] MEDS: METOPROLOL SUCC 25MG EXT REL TAB PO SCH (08:53)
[2018-07-14] MEDS: AMIODARONE 200 MG TAB PO SCH (08:54)
[2018-07-14] MEDS: ESCITALOPRAM OXALATE 20 MG TAB PO SCH (08:54)
[2018-07-14] MEDS: ATORVASTATIN 40 MG TAB PO SCH (08:54)
[2018-07-14] MEDS: VENLAFAXINE HCL XR 75 MG CAPXR PO SCH (08:55)
[2018-07-14] MEDS: MAGNESIUM OXIDE 400 MG TAB PO SCH ×2 (08:55→20:41)
[2018-07-14] MEDS: buPROPion HCl 75 MG TABLET PO SCH (08:55)
[2018-07-14] MEDS: INSULIN ASPART 100 UNITS/ML 3 ML PEN SC SCH ×4 (08:55→20:41)
[2018-07-14] MEDS: LORazepam 1 MG TAB PO PRN (09:56)
--- NOTE | 2018-07-14 11:44 | Infectious Disease Progress Nt ---
Date of Service July 14, 2018 Assessment & Plan (1) Wound of right leg: will continue abx, cefepime will treat E. coli in urine as well. no gu symptoms, esr normal, for OR today. await findings. will transition back to bactrim upon d/c with plans to continue follow up with Dr. Cyr in wound center. Subjective pt for OR today, amp of first and second toe. tolerating abx, remains on cefepime and vanco. afebrile. now new labs. esr 13. Physical Exam Vital Signs (Past 24 Hours): Last Vital Signs Temp 36.8 C 07/14/18 07:48 Pulse 68 07/14/18 07:48 Resp 16 07/14/18 07:48 BP 166/84 H 07/14/18 07:48 Pulse Ox 90 07/14/18 07:48 Results & Data Laboratory Results Microbiology 07/09/18 18:15 Urine,Clean Catch Urine Culture - Final Escherichia coli
--- NOTE | 2018-07-14 12:53 | Orthopedic Progress Note ---
Date of Service July 14, 2018 Assessment & Plan (1) Osteomyelitis: npo. Consent obtained for amputation of left 1st (great toe) and 2nd toes. This is planned for this afternoon. Subjective Pt "scared" about surgery today. No new complaints. She still wishes to proceed with surgery today though. Physical Exam Vital Signs (Past 24 Hours): Last Vital Signs Temp 36.8 C 07/14/18 07:48 Pulse 68 07/14/18 07:48 Resp 16 07/14/18 07:48 BP 166/84 H 07/14/18 07:48 Pulse Ox 90 07/14/18 07:48 Musculoskeletal: some edema to left foot. Dressing not removed
[2018-07-14] MEDS ORDERED: LIDOCAINE HCL 2% (LOCAL) INJ 50 ML VIAL ONE (14:37)
[2018-07-14] MEDS ORDERED: BUPIVACAINE/EPINEPHRINE 0.5% MPF 1:200,000 30 ML VIAL ONE (14:41)
[2018-07-14] MEDS ORDERED: ATROPINE SULFATE 0.1 MG/ML 10ML SYR IV PRN (14:44)
[2018-07-14] MEDS ORDERED: PHENYLEPHRINE 100MCG/ML 5ML SYR IV PRN (14:44)
[2018-07-14] MEDS ORDERED: ONDANSETRON INJ 2 MG/ML 2 ML VIAL IV PRN (14:44)
[2018-07-14] MEDS ORDERED: LABETALOL HCL IV 5 MG/ML 20ML IV PRN (14:44)
[2018-07-14] MEDS ORDERED: ePHEDrine sulfate 50 MG/ML AMP IV PRN (14:44)
[2018-07-14] MEDS ORDERED: fentaNYL citrate 100 MCG/2 ML VIAL IV PRN (14:44)
--- NOTE | 2018-07-14 14:52 | Anesthesiology Consultation ---
Date of Service July 14, 2018 Assessment & Plan (1) Encounter for pre-operative examination: Chart Review Chart Review: Acceptable Risk for Surgery and Patient NOT seen in Pre Admission Testing Consults Requested none NPO Date Last Intake of Fluids: 07/13/18 Time Last Intake of Fluids: 22:00 Last Intake of Fluids Comment: sips with pills today Date Last Intake of Solids: 07/13/18 Time Last Intake of Solids: 18:00 Last Intake of Solids Comment: HS snack History Surgery Operation Date: 07/12/18 09:10 Proposed Procedures p Colonoscopy EGD Dr Coyle - Rohan Coyle Operation Date: 07/14/18 15:00 Proposed Procedures p Left 1st and 2nd Toe Amputation - Hal Guzman MD Height/Weight Height: 5 ft 3 in Weight: 113.3 kg Allergies Allergy/AdvReac Type Severity Reaction Status Date / Time Penicillins Allergy Unknown UNKNOWN Verified 07/09/18 16:37 Medications Home Medications Medication Instructions Recorded Confirmed Last Taken acetaminophen 325 mg capsule 650 mg PO Q6H PRN cap 12/24/17 07/09/18 06/29/18 amiodarone 200 mg tablet 200 mg PO DAILY 12/24/17 07/09/18 07/09/18 atorvastatin 40 mg tablet 40 mg PO DAILY 12/24/17 07/09/18 07/09/18 bupropion HCl XL 150 mg 24 hr 150 mg PO QAM 12/24/17 07/09/18 07/09/18 tablet, extended release cholecalciferol (vitamin D3) 1,000 1,000 units PO DAILY 12/24/17 07/09/18 07/09/18 unit capsule cyanocobalamin (vitamin B-12) 1,000 mcg PO DAILY 12/24/17 07/09/18 07/09/18 1,000 mcg capsule escitalopram 20 mg tablet 20 mg PO DAILY 12/24/17 07/09/18 07/09/18 fluticasone propionate 250 1 inha INH DAILY ea 12/24/17 07/09/18 07/09/18 mcg/actuation blister powder for inhalation magnesium oxide 400 mg capsule 400 mg PO BID cap 12/24/17 07/09/18 07/09/18 metformin 1,000 mg tablet 1,000 mg PO BID 12/24/17 07/09/18 07/09/18 metoprolol succinate ER 50 mg 75 mg PO DAILY tab 12/24/17 07/09/18 07/09/18 tablet,extended release 24 hr montelukast 10 mg tablet 10 mg PO QPM 12/24/17 07/09/18 07/09/18 rivaroxaban 20 mg tablet 20 mg PO DAILY 12/24/17 07/09/18 07/09/18 sulfamethoxazole 800 1 tab PO BID tab 12/24/17 07/09/18 07/09/18 mg-trimethoprim 160 mg tablet levothyroxine 75 mg PO DAILY 06/30/18 07/09/18 07/09/18 naproxen sodium [Aleve] 440 mg PO DAILY PRN 07/09/18 07/09/18 Unknown Active Medications Generic Name Dose Route Start Last Admin Trade Name Freq PRN Reason Stop Dose Admin Amiodarone HCl 200 mg 07/10/18 09:00 07/14/18 08:54 Cordarone PO 08/09/18 08:59 200 mg DAILY BRIANDA Administration Atorvastatin Calcium 40 mg 07/11/18 09:00 07/14/18 08:54 Lipitor PO 08/10/18 08:59 40 mg DAILY BRIANDA Administration Bupropion HCl 75 mg 07/14/18 09:00 07/14/18 08:55 Wellbutrin PO 08/13/18 08:59 75 mg DAILY BRIANDA Administration Escitalopram Oxalate 20 mg 07/10/18 09:00 07/14/18 08:54 Lexapro PO 08/09/18 08:59 20 mg DAILY BRIANDA Administration Cefepime HCl 2,000 mg/ Syringe 20 mls @ 5.5 mls/min 07/11/18 22:15 07/14/18 13:03 IV 07/21/18 22:14 5.5 mls/min Q8 BRIANDA Administration Vancomycin HCl 1,500 mg/ 530 mls @ 200 mls/hr 07/13/18 18:00 07/14/18 08:56 Sodium Chloride IV 07/22/18 08:59 Infused Q12H BRIANDA Infusion Insulin Aspart 0 units 07/10/18 11:30 07/14/18 12:43 Novolog Flexpen SC 08/09/18 11:29 Not Given ACHS BRIANDA Levothyroxine Sodium 88 mcg 07/12/18 06:30 07/14/18 05:28 Synthroid PO 08/11/18 06:29 88 mcg DAILYBB BRIANDA Administration Lorazepam 1 mg 07/13/18 17:22 07/14/18 09:56 Ativan PO 08/12/18 17:21 1 mg Q6H PRN Administration Anxiety Magnesium Oxide 400 mg 07/09/18 21:15 07/14/18 08:55 Mag-Ox PO 08/08/18 21:14 400 mg BID BRIANDA Administration Metoprolol Succinate 75 mg 07/10/18 09:00 07/14/18 08:53 Toprol Xl PO 08/09/18 08:59 75 mg DAILY BRIANDA Administration Miscellaneous 1 ea 07/10/18 00:00 07/14/18 08:55 Order Awaiting Action N/A 08/09/18 00:00 Not Given QS BRIANDA Montelukast Sodium 10 mg 07/10/18 21:00 07/13/18 21:11 Singulair PO 08/09/18 20:59 10 mg QPM BRIANDA Administration Ondansetron HCl 4 mg 07/09/18 20:42 07/13/18 08:09 Zofran IV 08/08/18 20:41 4 mg Q6H PRN Administration Nausea Trimethoprim/Sulfamethoxazole 1 tab 07/09/18 21:00 07/11/18 21:20 Septra Ds 800/160mg Tab PO 08/20/18 20:59 1 tab BID BRIANDA Administration Venlafaxine HCl 75 mg 07/14/18 09:00 07/14/18 08:55 Effexor Extended Release PO 08/13/18 08:59 75 mg QAM BRIANDA Administration Past Medical History Medical History Diabetes (Chronic) Hypercholesteremia (Chronic) Hypertension (Chronic) Asthma (Chronic) Anxiety (Chronic) Depression (Chronic) Abscess or cellulitis of foot (Resolved 08/25/13) Diabetic foot infection (Resolved 08/25/13) Cellulitis of third toe, left (Resolved) Osteomyelitis (Chronic) Acute renal failure Arterial hemorrhage (Acute) Hypomagnesemia Laceration of left leg (Acute) Paroxysmal a-fib (Resolved) Partial thickness burn of right hand (Acute) Patellar fracture History of amputation of toe Morbid obesity Past Family History Family History Other Family history non-contributory Heart disease Past Surgical History Surgical History Post-operative state (Resolved) History of esophagogastroduodenoscopy (EGD) History of right knee surgery Social History Smoking Status: Former smoker Do You Dip or Chew Tobacco: No Hx Alcohol Use: Yes Alcohol type: hard liquor alcohol intake frequency: 0-2 drinks per day Alcohol Intake Frequency Comment: 1-2 shots every day Hx Substance Use: No substance use type: does not use Physical Exam Vital Signs Last Vital Signs Temp 36.6 C 07/14/18 14:34 Pulse 66 07/14/18 14:34 Resp 22 07/14/18 14:34 BP 173/88 H 07/14/18 14:43 Pulse Ox 94 07/14/18 14:34 Testing Electrocardiogram Date: 07/09/18 Findings: + SB @ (53) prolong QT Chest X-Ray Date: 07/09/18 XR chest 1V portable CLINICAL HISTORY: 58 years-old Female presenting with weakness. TECHNIQUE: Portable upright AP view of the chest was obtained. COMPARISON: 02/02/2018. FINDINGS: Cardiac silhouette moderately enlarged, unchanged. Pulmonary vascular prominence worsened from prior. No focal lung opacity apart from prominent vasculature. No large effusion or pneumothorax. Posttraumatic changes of the right glenohumeral joint suggested. IMPRESSION: 1. Cardiomegaly with significant volume overload. No katty pulmonary edema at this time. 2. Posttraumatic changes of the right glenohumeral joint. Electronically signed by: Jose Daniel Rhoades M.D. 07/09/2018 4:36 PM Echocardiogram Date: 07/10/18 EF: 55-60 Other Findings: + LVH Valvular Disease: + pertinent finding (mod TR) mild pulmonary HTN Laboratory Results 07/14/18 06:11 07/14/18 06:11 Blood Type O Positive 07/09/18 16:14 Antibody Screen NEGATIVE 07/09/18 16:14 Hemoglobin A1c 5.5 % (4.5-5.6) 07/11/18 08:38 Urine Color Yellow 07/09/18 18:15 Urine Appearance Cloudy (Clear) H 07/09/18 18:15 Urine pH 6.0 (4.5-7.5) 07/09/18 18:15 Ur Specific [place] 1.013 (1.000-1.030) 07/09/18 18:15 Urine Protein Negative (Negative) 07/09/18 18:15 Urine Glucose (UA) Negative (Negative) 07/09/18 18:15 Urine Ketones Negative (Negative) 07/09/18 18:15 Urine Nitrite Negative (Negative) 07/09/18 18:15 Ur Leukocyte Esterase 3+ (Negative) H 07/09/18 18:15 Urine WBC (Auto) >30 /hpf (0-5) H 07/09/18 18:15 Urine RBC (Auto) 5-10 /hpf (0-4) H 07/09/18 18:15 U Hyaline Cast (Auto) 0 /lpf (0-5) 07/09/18 18:15 U Epithel Cells (Auto) 10-20 /lpf (0-5) H 07/09/18 18:15 Urine Bacteria (Auto) 1+ (Negative) H 07/09/18 18:15 07/09/18 18:15 Urine Culture - Final Urine,Clean Catch Escherichia coli 07/14/18 07/14/18 07/14/18 14:39 11:22 07:39 POC Glucose 91 91 107 H
[2018-07-14] MEDS ORDERED: PROPOFOL IV EMULSION 10 MG/ML 20 ML VIAL IV ONE ×2 (14:55→15:22)
[2018-07-14] MEDS ORDERED: MIDAZOLAM HCL 1 MG/ML 2ML VIAL ONE (14:55)
[2018-07-14] MEDS ORDERED: LIDOCAINE HCL 2% 2 ML VIAL/AMP(20MG/ML) INFIL ONE (14:55)
--- NOTE | 2018-07-14 14:57 | History & Physical Bridge Note ---
Date of Service July 14, 2018 History & Physical Bridge Note I have examined the patient, reviewed the History & Physical and in the interval since the performance of the History & Physical I have noted the following changes of clinical significance: no changes noted
[2018-07-14] MEDS ORDERED: BUPIVACAINE 0.5 % 5 MG/1 ML MPF 30ML VIAL ONE (15:03)
[2018-07-14] MEDS ORDERED: LIDOCAINE HCL 1% 20 ML VIAL ONE (15:03)
[2018-07-14] MEDS ORDERED: BACITRACIN INJ 50,000 UNIT VIAL ONE (15:15)
--- NOTE | 2018-07-14 16:21 | Post Operative Brief Note ---
Immediate Post Op Note v1 Date of Surgery July 14, 2018 Pre & Post Diagnosis Operation Date: 07/12/18 09:10 Pre-Op Diagnosis: ANEMIA Post-Op Diagnosis: EGD: Normal Findings Colonoscopy: Diverticulosis Operation Date: 07/14/18 15:00 Pre-Op Diagnosis: Osteomyelitis - Infection of left great toe and second toe. Post-Op Diagnosis: Osteomyelitis - Infection of left great toe and second toe. Procedure Operation Date: 07/12/18 09:10 Actual Procedures p EGD Biopsy Cytology - Rohan barrera Colonoscopy - Rohan Coyle Operation Date: 07/14/18 15:00 Actual Procedures p Left 1st and 2nd Toe Amputation(Left) - Hal Guzman MD Surgeon Hal Guzman MD Odd Bundle Worker VALDEZ Ruelas Estimated Blood Loss 20 Findings Consistent with Post-Op Diagnosis Complications none Disposition Accompanied Patient To Recovery: No Disposition: Recovery Room
--- NOTE | 2018-07-14 16:27 | Anesthesiology Progress Note ---
Date of Service July 14, 2018 Anesthesia Post Procedure Vital Signs Vital Signs: Temp Pulse Pulse Pulse Resp BP BP 07/14/18 16:15 66 18 163/99 H 07/14/18 16:08 36.6 C 68 27 H 170/95 H 07/14/18 14:43 173/88 H 07/14/18 14:34 36.6 C 66 22 181/93 H 07/14/18 07:48 36.8 C 68 16 166/84 H 07/13/18 23:48 36.8 C 55 L 18 172/92 H Pulse Ox 07/14/18 16:15 100 07/14/18 16:08 97 07/14/18 14:43 07/14/18 14:34 94 07/14/18 07:48 90 07/13/18 23:48 92 Pain Intensity Left Knee: Pain Intensity: 3 Left Foot: Pain Intensity: 0 Notes Mental Status: alert / awake / arousable Patient Amnestic to Procedure: Yes Nausea / Vomiting: adequately controlled Pain: adequately controlled Airway Patency, RR, SpO2: stable & adequate BP & HR: stable & adequate Hydration State: stable & adequate Anesthetic Complications: no major complications apparent and Pt Satisfied with anesthetic care
[2018-07-14] MEDS: ACETAMINOPHEN 325 MG TAB PO PRN (18:02)
[2018-07-14] MEDS ORDERED: SODIUM CHLORIDE 0.9% 250 ML IV PRN (19:15)
[2018-07-14] MEDS: MONTELUKAST SODIUM 10 MG TABLET PO SCH (20:41)
[2018-07-14] MEDS: SULFAMETHOXAZOLE/TRIMETHOPRIM DS 800/160MG TAB PO SCH (20:44)
--- NOTE | 2018-07-14 21:24 | Hospitalist Progress Note ---
Date of Service July 14, 2018 Assessment & Plan (1) Severe anemia: acute/chronic Iron deficiency anemia with baseline hgb 9. s/p 2 units PRBCs this admission. decompensated hypothyroidism could also be contributing to anemia. b12/folate wnl. EGD/Colonoscopy on 07/12 without any abnormalities. duodenal biopsies negative for celiac. outpatient capsule endoscopy? defer to GI. patient reports poor oral iron tolerance. thus, will gave venofer 200mg x 1 yesterday w/o incident. H/H this evening post op stable with Hb of 7.9 will consider additional run of IV venofer tomorrow. cbc in am. (2) Pyogenic granuloma: Left great toe with possible septic arthritis and/or osteomyelitis. s/p amputation of first/2nd toes today. appreciate orthopedics assistance. defer management to ortho. currently on cefepime/vanco. stop these and transition to PO?? will consult with ID. (3) Hyponatremia: Baseline is around 133-135 Nephrology consulted and thinks etiology from combination of decreased EAV from acute on chronic blood loss anemia, hypothyroidism, SSRI therapy. Lowest Na was 117 this admission. Now 134 today. BMP in am. (4) Hypomagnesemia: replaced and resolved (5) Diabetes: hemoglobin A1c normal at 5.5% controlled holding metformin (6) Hypercholesteremia: statin (7) Hypertension: Continue home Toprol-XL 75 mg daily controlled (8) Asthma: Cont Flovent, Singulair No exacerbation at this time (9) Anxiety: Psych consult appreciated They are reducing wellbutrin and lexapro; effexor xr being added (10) Depression: Psych consult appreciated see above in "anxiety" (11) Osteomyelitis: Chronic in the right knee Chronically takes bactrim; on hold while on cefepime and Vanco also with possible osteomyelitis of first toe, left foot --s/p amputation today (12) Paroxysmal a-fib: Continue home amiodarone, Toprol-XL Holding Xarelto due to anemia If H/H cont to be stable resume the xarelto (13) Hypothyroid: Decompensated. Increased levothyroxine to 88 mcg and repeat TSH in 4 weeks. (14) Alcohol use: Withdrawal protocol in place Ativan PRN Could have contributed to her hyponatremia at presentation no signs of withdrawal at this time (15) VALERIE (obstructive sleep apnea): Continue nocturnal O2 (16) Open wound of knee: RIGHT proximal tibial region. wound care with Aquacel AG and Optifoam (17) UTI (urinary tract infection): 2nd E. coli. abx for foot will cover is nearing completion of course (18) DVT prophylaxis: if H/H cont to remain stable then resume xarelto dispo planning Pt Ot Subjective I saw the patient post-op from her left foot surgery. She c/o mild pain but otherwise was comfortable. Had minimal amount of nausea today but able to eat dinner. Denied any dyspnea or chest pain. She mentioned she wants to go to her friend's house near [place] during her recovery time. Constitutional: no fever and no chills Respiratory: + dyspnea on exertion Cardiovascular: no chest pain Gastrointestinal: no abdominal pain Physical Exam Vital Signs (Past 24 Hours): Last Vital Signs Temp 36.5 C 07/14/18 19:52 Pulse 62 07/14/18 19:52 Resp 18 07/14/18 19:52 BP 126/84 07/14/18 19:52 Pulse Ox 91 07/14/18 19:52 Constitutional: + ill appearing and + morbidly obese; no acute distress ENMT: external ear and nose normal, oropharynx normal Respiratory: normal respiratory effort, lungs clear to auscultation Cardiovascular: RRR, no murmur, no edema Heart Sounds: normal S1 and normal S2 Vessels: posterior tibial pulses present and dorsalis pedis pulses pres ent; no JVD Gastrointestinal (Abdomen): normal bowel sounds, soft, nontender, no hepatosplenomegaly Musculoskeletal: left foot wrapped in SANTI; post-op surgical shoe in place Psychiatric: Orientation: alert and oriented x 3 Results & Data Laboratory Results Laboratory Results - last 24 hr 07/14/18 07/14/18 07/14/18 06:11 06:11 07:39 WBC 4.29 L RBC 3.40 L Hgb 7.7 L Hct 26.7 L MCV 78.5 L MCH 22.6 L MCHC 28.8 L RDW Std Deviation 60.8 H RDW Coeff of Yazmin 21.9 H Plt Count 179 MPV 8.8 Sodium 134 L Potassium 4.2 Chloride 102 Carbon Dioxide 25 Anion Gap 7.0 BUN 7 Creatinine 0.74 Est Cr Clr Drug Dosing 102.9 Est GFR ( Amer) 105.0 Est GFR (Non-Af Amer) 90.6 BUN/Creatinine Ratio 9.8 L Glucose 97 POC Glucose 107 H Calcium 8.5 Blood Type Antibody Screen Crossmatch 07/14/18 07/14/18 07/14/18 11:22 14:39 16:11 WBC RBC Hgb Hct MCV MCH MCHC RDW Std Deviation RDW Coeff of Yazmin Plt Count MPV Sodium Potassium Chloride Carbon Dioxide Anion Gap BUN Creatinine Est Cr Clr Drug Dosing Est GFR ( Amer) Est GFR (Non-Af Amer) BUN/Creatinine Ratio Glucose POC Glucose 91 91 88 Calcium Blood Type Antibody Screen Crossmatch 07/14/18 07/14/18 07/14/18 19:38 19:38 20:29 WBC RBC Hgb 7.9 L Hct 27.3 L MCV MCH MCHC RDW Std Deviation RDW Coeff of Yazmin Plt Count MPV Sodium Potassium Chloride Carbon Dioxide Anion Gap BUN Creatinine Est Cr Clr Drug Dosing Est GFR ( Amer) Est GFR (Non-Af Amer) BUN/Creatinine Ratio Glucose POC Glucose 115 H Calcium Blood Type O Positive Antibody Screen NEGATIVE Crossmatch See Detail (1) UTI (urinary tract infection) Hematuria presence: without hematuria Urinary tract infection type: acute cystitis Qualified Code(s): N30.00 - Acute cystitis without hematuria (2) Open wound of knee Encounter type: subsequent encounter Laterality: right Qualified Code(s): S81.001D - Unspecified open wound, right knee, subsequent encounter (3) Diabetes Diabetes mellitus complication detail: with unspecified neuropathy Diabetes mellitus complication status: with neurologic complications 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 Diabetes mellitus type: type 2 Qualified Code(s): E11.40 - Type 2 diabetes mellitus with diabetic neuropathy, unspecified (4) Depression Depression Type: unspecified Qualified Code(s): F32.9 - Major depressive disorder, single episode, unspecified (5) Hypothyroid Hypothyroidism type: acquired Qualified Code(s): E03.9 - Hypothyroidism, unspecified (6) Hypertension Hypertension type: essential hypertension Qualified Code(s): I10 - Essential (primary) hypertension (7) Asthma Asthma complication type: unspecified Asthma persistence: intermittent Asthma severity: mild Qualified Code(s): J45.20 - Mild intermittent asthma, uncomplicated (8) Osteomyelitis Laterality: right Osteomyelitis location: tibia Osteomyelitis type: chronic, with draining sinus Qualified Code(s): M86.461 - Chronic osteomyelitis with draining sinus, right tibia and fibula
[2018-07-14 22:02] LABS: Hematocrit (blood only) 27.3 % (37-47); Hemoglobin 7.9 g/dL (12.0-16.0)
[2018-07-14] MEDS: OXYCODONE/ACETAMINOPHEN 5mg/325mg TAB PO PRN (22:19)
--- NOTE | 2018-07-15 03:10 | Operative Report ---
DATE OF OPERATION: 07/14/2018 SURGEON: Hal Guzman MD ARMAMENT MECHANIC: BALTAZAR Hernandez PREOPERATIVE DIAGNOSES: 1. Left great toe open wound with likely underlying chronic osteomyelitis. 2. Left second toe ulcer with impending osteomyelitis with a fixed hammertoe deformity. PROCEDURES PERFORMED: 1. Left great toe amputation. 2. Left second toe amputation. COMPLICATIONS: None. ESTIMATED BLOOD LOSS: 10 mL. TOURNIQUET TIME: 50 minutes at 300 mmHg. ANESTHESIA: Ankle block anesthetic. OPERATIVE INDICATIONS: The patient is a 58-year-old female, long-term diabetic who has had multiple foot and diabetic complications. She had a previous 3rd toe amputation in the past. Over the past several months, she developed increased pain and increased ulceration of her great toe with a foul-smelling odor. She also has a very fixed rigid hammertoe deformity, second toe with necrosis of the tip due to pressure. Treatment options were explained. The patient elected to proceed with amputation. I felt it was best to amputate both these toes because the first toe was clearly obviously infected and the second toe was impending infection. OPERATIVE PROCEDURE: The patient was taken to the operating room, identified and placed on the operative table in supine position. All contact areas were appropriately padded. An ankle block anesthetic was implemented in the holding area by the anesthesia team. A left ankle tourniquet was placed. The patient had received just recently antibiotics on the floor, so no additional antibiotics were provided. The left foot was then scrubbed with Hibiclens and then prepped with ChloraPrep and draped in usual sterile fashion. Left leg was elevated, but not exsanguinated. The tourniquet was placed at 300 mmHg. A fish-mouth type incision was made at the base of the great toe with a racquet type extension more proximal and medially on the metatarsal. Sharp dissection was carried through subcutaneous tissue directly down to the proximal phalanx of the great toe. The proximal phalanx was skeletonized back to the MTP joint and then disarticulated and removed. Attention was then drawn to the second toe. A fish-mouth incision was made at the base of the second toe. Sharp dissection was carried through the subcutaneous tissue directly down to bone. The proximal phalanx was skeletonized back to the MTP joint, the toe was disarticulated and removed from the field. I then changed my glove. I irrigated both wounds extensively. The flexor and extensor tendons were then identified, traction was applied, and then they were cut, short and allowed to retract. We then irrigated the wounds again. The tourniquet was then let down for a tourniquet time of 15 minutes. Hemostasis was assured with use of electrocautery. I once again irrigated the wounds and the skin of both incisions was then closed with 3-0 nylon suture in simple fashion. The foot was then cleaned and dried and a sterile dressing composed of Xeroform, 4 x 4s, sterile cast padding, Coban wrap, and a postop shoe were applied. The patient then transferred to the recovery room in stable condition. The patient tolerated the procedure well with no complications. All needle and sponge counts were correct at the end of the operation. I attest to the content of the Intraoperative Record and any orders documented therein. Any exception s are noted below.
[2018-07-15] MEDS: OXYCODONE/ACETAMINOPHEN 5mg/325mg TAB PO PRN (04:58)
[2018-07-15] MEDS: LEVOTHYROXINE SODIUM 88 MCG TABLET PO SCH (04:59)
[2018-07-15] MEDS ORDERED: VANCOMYCIN TROUGH ONE (05:30)
[2018-07-15] MEDS: CEFEPIME 2,000 MG in SYRINGE 7.5 ML IV SCH (06:11)
[2018-07-15] MEDS: VANCOMYCIN HCL 1,500 MG in SODIUM CHLORIDE 0.9% 500 ML IV SCH (06:11)
[2018-07-15 06:17] LABS: Creatinine Clr Calc Pharmacy 105.7 ml/min; Est GFR (African American) 108.5; Est GFR (Non-African American) 93.6
--- NOTE | 2018-07-15 07:33 | Orthopedic Progress Note ---
Date of Service July 15, 2018 Assessment & Plan (1) Osteomyelitis: POD #1 from amputation of left great and second toes for infection. Pain is controlled. She can WBAT with the post op shoe/walker for assistance. Plan is to leave the dressing intact for now. She was seen and examined by Dr. Guzman today. Subjective POD #1 from amputation of left great toe and second toe. She's doing pretty well. Not much pain. She said she took 1 percocet. Physical Exam Vital Signs (Past 24 Hours): Last Vital Signs Temp 36.7 C 07/15/18 07:27 Pulse 83 07/15/18 07:27 Resp 18 07/15/18 07:27 BP 146/86 H 07/15/18 07:27 Pulse Ox 94 07/15/18 07:27 Musculoskeletal: NAD. Dressing on left foot is clean, dry, intact
[2018-07-15] MEDS: VENLAFAXINE HCL XR 75 MG CAPXR PO SCH (07:48)
[2018-07-15] MEDS: AMIODARONE 200 MG TAB PO SCH (07:48)
[2018-07-15] MEDS: ESCITALOPRAM OXALATE 20 MG TAB PO SCH (07:48)
[2018-07-15] MEDS: ATORVASTATIN 40 MG TAB PO SCH (07:49)
[2018-07-15] MEDS: MAGNESIUM OXIDE 400 MG TAB PO SCH ×2 (07:49→22:14)
[2018-07-15] MEDS: METOPROLOL SUCC 25MG EXT REL TAB PO SCH (07:49)
[2018-07-15] MEDS: SULFAMETHOXAZOLE/TRIMETHOPRIM DS 800/160MG TAB PO SCH ×2 (07:49→22:14)
[2018-07-15] MEDS: buPROPion HCl 75 MG TABLET PO SCH (07:49)
[2018-07-15] MEDS: INSULIN ASPART 100 UNITS/ML 3 ML PEN SC SCH ×4 (09:05→22:36)
[2018-07-15] MEDS: IRON SUCROSE 200 MG in 0.9 % SODIUM CHLORIDE 100 ML IV SCH (10:25)
[2018-07-15] MEDS: ONDANSETRON INJ 2 MG/ML 2 ML VIAL IV PRN ×2 (10:36→16:24)
--- NOTE | 2018-07-15 13:24 | Infectious Disease Progress Nt ---
Date of Service July 15, 2018 Assessment & Plan (1) Wound of right leg: s/p amputation of first and second toes, can continue with po, restarted post op. will d/c IV abx, she did have E. coli in urine culture but UA with >30 ep cells, asymptomatic, suspect contaminant but IV cefepime would have treated. ok for d/c when otherwise stable of po bactrim. will plan to follow with Dr. Cyr in wound center post d/c as previously planned. Subjective pt is POD #1 amp first and second toe, no micro, path. tolerated well. remains on IV abx, toleraitng. afebrile. Physical Exam Vital Signs (Past 24 Hours): Last Vital Signs Temp 36.7 C 07/15/18 07:27 Pulse 83 07/15/18 07:27 Resp 18 07/15/18 07:27 BP 122/80 07/15/18 10:31 Pulse Ox 94 07/15/18 07:27 Results & Data Laboratory Results Microbiology 07/09/18 18:15 Urine,Clean Catch Urine Culture - Final Escherichia coli
[2018-07-15] MEDS: NSS + 20MEQ KCL 20 MEQ/1,000 ML BAG IV SCH (19:18)
[2018-07-15 19:31] LABS: BUN Creatinine Ratio 10.4 (10-20); Blood Urea Nitrogen 10 mg/dl (7-18); Calcium 9.3 mg/dl (8.5-10.1); Carbon Dioxide 26 mmol/L (21-32); Chloride 102 mmol/L (98-107); Est GFR (African American) 75.7; Est GFR (Non-African American) 65.3; Glucose 85 mg/dl (70-99); Magnesium 1.9 mg/dl (1.8-2.4); Potassium 3.7 mmol/L (3.5-5.1); Sodium 135 mmol/L (136-145)
[2018-07-15 19:35] LABS: Troponin I < 0.015 ng/ml (0-0.045)
--- NOTE | 2018-07-15 19:57 | Hospitalist Progress Note ---
Date of Service July 15, 2018 Assessment & Plan (1) Ileus: NPO. Restart IVF. Check K and mag. abd x-rays to exclude fecal impaction or SBO. likely due to "paralytic ileus" in setting of recent anesthesia, narcotics, etc. Present on Admission?: No (2) Severe anemia: acute/chronic Iron deficiency anemia with baseline hgb 9. s/p 2 units PRBCs this admission. decompensated hypothyroidism could also be contributing to anemia. b12/folate wnl. EGD/Colonoscopy on 07/12 without any abnormalities. duodenal biopsies negative for celiac. outpatient capsule endoscopy? defer to GI. s/p venofer earlier this admission. give another dose of venofer 200mg today. cbc in am. (3) Pyogenic granuloma: Left great toe with possible septic arthritis and/or osteomyelitis. POD #1 - s/p amputation of first/2nd toes. appreciate orthopedics assistance. ID has stopped IV abx. placed back on bactrim for chronic osteomyelitis of right tibia. (4) Hyponatremia: Baseline is around 133-135 Nephrology consulted and thinks etiology from combination of decreased EAV from acute on chronic blood loss anemia, hypothyroidism, SSRI therapy. Na normal today. (5) Hypomagnesemia: replaced and resolved (6) Diabetes: hemoglobin A1c normal at 5.5% controlled holding metformin (7) Hypercholesteremia: statin (8) Hypertension: Continue home Toprol-XL 75 mg daily controlled (9) Asthma: Cont Flovent, Singulair No exacerbation at this time (10) Anxiety: Psych consult appreciated They are reducing wellbutrin and lexapro; effexor xr being added (11) Depression: Psych consult appreciated see above in "anxiety" (12) Osteomyelitis: Chronic in the right knee resume bactrim today s/p amputation of LEFT first toe, left foot for possible osteomyelitis -- POD #1 (13) Paroxysmal a-fib: Continue home amiodarone, Toprol-XL Holding Xarelto due to anemia If H/H cont to be stable resume the xarelto (14) Hypothyroid: Decompensated. Increased levothyroxine to 88 mcg and repeat TSH in 4 weeks. (15) Alcohol use: no signs of withdrawal at this time (16) VALERIE (obstructive sleep apnea): Continue nocturnal O2 (17) Open wound of knee: RIGHT proximal tibial region. wound care with Aquacel AG and Optifoam resume bactrim prophylaxis (18) UTI (urinary tract infection): 2nd E. coli. completed long course of cefepime. resolved. (19) Chest pain: doubt ischemic reproducible on exam making musculoskeletal etiology likely check 1 troponin but anticipate it will be normal (20) DVT prophylaxis: resume xarelto tomorrow dispo planning -[facility]? ileus will delay her progress Subjective patient c/o inability to pass flatus, abdominal bloating, anorexia, nausea -- but no vomiting. ate breakfast but then had worsening GI symptoms thereafter. had fleeting left upper chest discomfort -- sharp, lasted 2-3 seconds, then resolved. occurred while shifting in bed. no substernal chest pain. no dyspnea. willing to go to [facility] for rehab. Constitutional: no fever Respiratory: no cough and no dyspnea Cardiovascular: as per Subjective / HPI; no orthopnea and no paroxysmal nocturnal dyspnea Gastrointestinal: + bloating and + nausea; no abdominal pain and no vomiting Physical Exam Vital Signs (Past 24 Hours): Last Vital Signs Temp 36.5 C 07/15/18 15:45 Pulse 52 L 07/15/18 16:37 Resp 20 07/15/18 16:37 BP 158/94 H 07/15/18 16:37 Pulse Ox 100 07/15/18 15:45 Constitutional: + morbidly obese; no acute distress ENMT: external ear and nose normal, oropharynx normal Respiratory: normal respiratory effort, lungs clear to auscultation Cardiovascular: RRR, no murmur, no edema Heart Sounds: normal S1 and normal S2 Vessels: posterior tibial pulses present and dorsalis pedis pulses present; no JVD Chest (Breasts): Additional Comments: tender to palpation over chest wall (left upper chest) Gastrointestinal (Abdomen): Inspection/Auscultation: + abdomen distended; + abdomen abnormal to inspection Percussion/Palpation: abdomen nontender, no guarding and no hepatosplenomegaly Musculoskeletal: left foot - cap refill <2 sec; dressings in place Skin: pallor Psychiatric: Orientation: alert and oriented x 3 Affect: + anxious affect Results & Data Laboratory Results Laboratory Results - last 24 hr 07/14/18 07/14/18 07/14/18 19:38 19:38 20:29 Hgb 7.9 L Hct 27.3 L Sodium Potassium Chloride Carbon Dioxide Anion Gap BUN Creatinine Est Cr Clr Drug Dosing Est GFR ( Amer) Est GFR (Non-Af Amer) BUN/Creatinine Ratio Glucose POC Glucose 115 H Calcium Magnesium Troponin I Vancomycin Trough Blood Type O Positive Antibody Screen NEGATIVE Crossmatch See Detail 07/15/18 07/15/18 07/15/18 05:29 05:29 07:35 Hgb Hct Sodium Potassium Chloride Carbon Dioxide Anion Gap BUN Creatinine 0.72 Est Cr Clr Drug Dosing 105.7 Est GFR ( Amer) 108.5 Est GFR (Non-Af Amer) 93.6 BUN/Creatinine Ratio Glucose POC Glucose 104 H Calcium Magnesium Troponin I Vancomycin Trough 21.8 Blood Type Antibody Screen Crossmatch 07/15/18 07/15/18 07/15/18 11:12 16:46 18:32 Hgb Hct Sodium 135 L Potassium 3.7 Chloride 102 Carbon Dioxide 26 Anion Gap 7.0 BUN 10 Creatinine 0.97 Est Cr Clr Drug Dosing 81.0 Est GFR ( Amer) 75.7 Est GFR (Non-Af Amer) 65.3 BUN/Creatinine Ratio 10.4 Glucose 85 POC Glucose 99 96 Calcium 9.3 Magnesium 1.9 Troponin I < 0.015 Vancomycin Trough Blood Type Antibody Screen Crossmatch (1) UTI (urinary tract infection) Hematuria presence: without hematuria Urinary tract infection type: acute cystitis Qualified Code(s): N30.00 - Acute cystitis without hematuria (2) Open wound of knee Encounter type: subsequent encounter Laterality: right Qualified Code(s): S81.001D - Unspecified open wound, right knee, subsequent encounter (3) Diabetes Diabetes mellitus complication detail: with unspecified neuropathy Diabetes mellitus complication status: with neurologic complications Diabetes mellitus residential insulin use: without residential use Diabetes mellitus type: type 2 Qualified Code(s): E11.40 - Type 2 diabetes mellitus with diabetic neuropathy, unspecified (4) Depression Depression Type: unspecified Qualified Code(s): F32.9 - Major depressive disorder, single episode, unspecified (5) Hypothyroid Hypothyroidism type: acquired Qualified Code(s): E03.9 - Hypothyroidism, unspecified (6) Hypertension Hypertension type: essential hypertension Qualified Code(s): I10 - Essential (primary) hypertension (7) Asthma Asthma complication type: unspecified Asthma persistence: intermittent Asthma severity: mild Qualified Code(s): J45.20 - Mild intermittent asthma, uncomplicated (8) Osteomyelitis Laterality: right Osteomyelitis location: tibia Osteomyelitis type: chronic, with draining sinus Qualified Code(s): M86.461 - Chronic osteomyelitis with draining sinus, right tibia and fibula (9) Chest pain Chest pain type: unspecified Qualified Code(s): R07.9 - Chest pain, unspecified
--- NOTE | 2018-07-15 20:13 | XRay Report ---
AP CHEST WITH ABDOMINAL SERIES CLINICAL HISTORY: Abdominal distention. Clinical concern for ileus. FINDINGS: An AP upright chest radiograph is compared to study dated 07/09/2018 and correlated with chest CT dated 02/02/2018. The examination is degraded by patient rotation. The heart is enlarged and there is athe rosclerotic calcification of the thoracic aorta. There is pulmonary vascular congestion. Chronic inte rstitial thickening is similar to previous. Bibasilar atelectasis is noted. No airspace consolidation or large pleural effusion is identified. No pneumothorax is seen. The skeletal structures are osteop enic. The bony thorax is grossly intact. Supine and decubitus abdominal radiographs are correlated with PET/CT dated 11/07/2013. The examination is degraded by large body habitus. There is moderate constipation, as well as significant gaseous di stention of the colon. There is only mild gaseous distention of the small bowel loops. No evidence of intraperitoneal free air is seen. There are no abnormal abdominal calcifications. There is mild lumb osacral spondylosis. The lumbosacral spine and bony pelvis appear intact. IMPRESSION: 1. Cardiomegaly with evidence of mild congestive failure. 2. There is no airspace consolidation or large pleural effusion. 3. Constipation with significant gaseous distention of the colon. There is only mild distention of th e small bowel loops. There is no evidence of small bowel obstruction. The appearance favors ileus. Di stal colonic obstruction is considered less likely and clinical correlation will be required. Electronically signed by: Mitch Stone M.D. 07/15/2018 8:12 PM
[2018-07-15] MEDS ORDERED: Nursing to Pharmacy Communication ONE (22:04)
[2018-07-15] MEDS: MONTELUKAST SODIUM 10 MG TABLET PO SCH (22:13)
[2018-07-15] MEDS: LORazepam 1 MG TAB PO PRN (22:16)
[2018-07-16] MEDS: INSULIN ASPART 100 UNITS/ML 3 ML PEN SC SCH ×4 (00:20→20:08)
[2018-07-16] MEDS: NSS + 20MEQ KCL 20 MEQ/1,000 ML BAG IV SCH ×2 (05:28→16:07)
[2018-07-16] MEDS: LEVOTHYROXINE SODIUM 88 MCG TABLET PO SCH (05:28)
[2018-07-16 06:13] LABS: Hematocrit (blood only) 28.2 % (37-47); Mean Corpuscular Hgb Conc 28.4 g/dL (32-36); Mean Corpuscular Volume 79.7 fL (80-100); Platelet Count 224 K/uL (130-400); RDW Coefficient of Variation 22.6 % (11.5-14.5); Red Blood Count 3.54 M/uL (4.2-5.4); White Blood Count 4.31 K/uL (4.8-10.8)
[2018-07-16 06:41] LABS: BUN Creatinine Ratio 9.8 (10-20); Calcium 8.6 mg/dl (8.5-10.1); Creatinine Clr Calc Pharmacy 89.3 ml/min; Est GFR (African American) 85.1; Est GFR (Non-African American) 73.4; Potassium 3.7 mmol/L (3.5-5.1)
[2018-07-16] MEDS: IRON SUCROSE 200 MG in 0.9 % SODIUM CHLORIDE 100 ML IV SCH (09:29)
[2018-07-16] MEDS: AMIODARONE 200 MG TAB PO SCH (09:30)
[2018-07-16] MEDS: ATORVASTATIN 40 MG TAB PO SCH (09:30)
[2018-07-16] MEDS: VENLAFAXINE HCL XR 75 MG CAPXR PO SCH (09:30)
[2018-07-16] MEDS: METOPROLOL SUCC 25MG EXT REL TAB PO SCH (09:30)
[2018-07-16] MEDS: ESCITALOPRAM OXALATE 20 MG TAB PO SCH (09:30)
[2018-07-16] MEDS: MAGNESIUM OXIDE 400 MG TAB PO SCH ×2 (09:31→20:02)
[2018-07-16] MEDS: SULFAMETHOXAZOLE/TRIMETHOPRIM DS 800/160MG TAB PO SCH ×2 (09:31→20:02)
[2018-07-16] MEDS: buPROPion HCl 75 MG TABLET PO SCH (09:31)
[2018-07-16] MEDS: LORazepam 1 MG TAB PO PRN (13:52)
--- NOTE | 2018-07-16 14:22 | Progress Note ---
DATE: 07/16/2018 SUBJECTIVE: A 58-year-old white female diabetic, now postop day 2 from left great toe and second toe amputations for chronic infection. She is doing okay. She seems to be resting comfortably. No new complaints. OBJECTIVE: VITAL SIGNS: Temperature 36.8. Vital signs stable. EXTREMITIES: Examination of the left foot reveals the dressing to be in place. There is a little bit of dried blood that you can see underneath the dressing, but nothing penetrating the dressing. She can dorsiflex and plantarflex her foot appropriately. LABORATORY DATA: Hemoglobin 8.0. Hematocrit 28.2. ASSESSMENT: A 58-year-old white female postop day 2 from a left great toe and second toe amputation. She is doing pretty well. PLAN: At this point, we are just going to continue this dressing on her foot and leave it on for 2 weeks. She can weightbear as tolerated, but should elevate as much as possible. Medical management as per the medicine service. She is orthopedically okay for discharge any time medically stable. I need to follow up with her in somewhere between 2 and 3 weeks. Any orthopedic questions can be directed to me at [phone].
[2018-07-16] MEDS ORDERED: Nursing to Pharmacy Communication ONE (17:35)
[2018-07-16] MEDS: OXYCODONE/ACETAMINOPHEN 5mg/325mg TAB PO PRN (20:01)
[2018-07-16] MEDS: MONTELUKAST SODIUM 10 MG TABLET PO SCH (20:02)
--- NOTE | 2018-07-16 21:10 | Hospitalist Progress Note ---
Date of Service July 16, 2018 Assessment & Plan (1) Ileus: Improving. Allow sips of clears. If she tolerates as day goes on then allow clear liquid diet. Serial exams. BMP in am. (2) Severe anemia: acute/chronic Iron deficiency anemia with baseline hgb 9. s/p 2 units PRBCs this admission. decompensated hypothyroidism could also be contributing to anemia. b12/folate wnl. EGD/Colonoscopy on 07/12 without any abnormalities. duodenal biopsies negative for celiac. outpatient capsule endoscopy? defer to GI. s/p venofer x 2 this admission. would give 1 more run of venofer tomorrow. cbc in am. (3) Pyogenic granuloma: Left great toe with possible septic arthritis and/or osteomyelitis. POD #2 - s/p amputation of first/2nd toes. appreciate orthopedics assistance. (4) Hyponatremia: Baseline is around 133-135 Nephrology consulted and thinks etiology from combination of decreased EAV from acute on chronic blood loss anemia, hypothyroidism, SSRI therapy. Na continues to be normal. (5) Hypomagnesemia: replaced and resolved (6) Diabetes: hemoglobin A1c normal at 5.5% controlled holding metformin (7) Hypercholesteremia: statin (8) Hypertension: Continue home Toprol-XL 75 mg daily controlled (9) Asthma: Cont Flovent, Singulair No exacerbation at this time (10) Anxiety: Psych consult appreciated They are reducing wellbutrin and lexapro; effexor xr being added (11) Depression: Psych consult appreciated see above in "anxiety" (12) Osteomyelitis: Chronic in the right knee cont bactrim prophylaxis s/p amputation of LEFT first toe, left foot for possible osteomyelitis -- POD #2 (13) Paroxysmal a-fib: Continue home amiodarone, Toprol-XL Xarelto was held due to anemia Since H/H cont to be stable will place back on anticoagulation but instead use eliquis 5mg BID (easier to stop than xarelto given its 1/2 life if there is GI bleeding) (14) Hypothyroid: Decompensated. Increased levothyroxine to 88 mcg and repeat TSH in 4 weeks. (15) Alcohol use: no signs of withdrawal at this time (16) VALERIE (obstructive sleep apnea): Continue nocturnal O2 (17) Open wound of knee: RIGHT proximal tibial region. wound care with Aquacel AG and Optifoam bactrim prophylaxis (18) UTI (urinary tract infection): 2nd E. coli. completed long course of cefepime. resolved. (19) Chest pain: doubt ischemic was reproducible on exam making musculoskeletal etiology likely trop negative pain resolved (20) DVT prophylaxis: sveta dispo planning -[facility]? probable d/c early this coming week Subjective pt states she is hungry. started passing gas last night and now passing copious flatus. +stools (2) since this am -- liquid. bloating improved. still w/ a little nausea. no vomiting. no recurrent chest pain. Constitutional: no fever Respiratory: no cough and no dyspnea Cardiovascular: no chest pain Gastrointestinal: no abdominal pain Physical Exam Vital Signs (Past 24 Hours): Last Vital Signs Temp 36.7 C 07/16/18 16:36 Pulse 64 07/16/18 16:36 Resp 20 07/16/18 16:36 BP 149/82 H 07/16/18 16:36 Pulse Ox 97 07/16/18 16:36 Constitutional: + morbidly obese; no acute distress ENMT: external ear and nose normal, oropharynx normal Respiratory: normal respiratory effort, lungs clear to auscultation Cardiovascular: RRR, no murmur, no edema Heart Sounds: normal S1 and normal S2 Vessels: posterior tibial pulses present and dorsalis pedis pulses present; no JVD Gastrointestinal (Abdomen): normal bowel sounds, soft, nontender, no hepatosplenomegaly Inspection/Auscultation: + abdomen distended (modestly improved from yesterday); + abdomen abnormal to inspection Percussion/Palpation: abdomen nontender, no guarding and no hepatosplenomegaly Skin: left foot wrapped in dressing cap refill < sec on toes that are exposed Psychiatric: Orientation: alert and oriented x 3 Results & Data Laboratory Results Laboratory Results - last 24 hr 07/15/18 07/16/18 07/16/18 23:37 05:31 05:37 WBC 4.31 L RBC 3.54 L Hgb 8.0 L Hct 28.2 L MCV 79.7 L MCH 22.6 L MCHC 28.4 L RDW Std Deviation 64.0 H RDW Coeff of Yazmin 22.6 H Plt Count 224 MPV 9.0 Sodium Potassium Chloride Carbon Dioxide Anion Gap BUN Creatinine Est Cr Clr Drug Dosing Est GFR ( Amer) Est GFR (Non-Af Amer) BUN/Creatinine Ratio Glucose POC Glucose 96 105 H Calcium 07/16/18 07/16/18 07/16/18 05:37 11:36 17:38 WBC RBC Hgb Hct MCV MCH MCHC RDW Std Deviation RDW Coeff of Yazmin Plt Count MPV Sodium 136 Potassium 3.7 Chloride 105 Carbon Dioxide 25 Anion Gap 6.0 BUN 9 Creatinine 0.88 Est Cr Clr Drug Dosing 89.3 Est GFR ( Amer) 85.1 Est GFR (Non-Af Amer) 73.4 BUN/Creatinine Ratio 9.8 L Glucose 86 POC Glucose 96 80 Calcium 8.6 07/16/18 20:07 WBC RBC Hgb Hct MCV MCH MCHC RDW Std Deviation RDW Coeff of Yazmin Plt Count MPV Sodium Potassium Chloride Carbon Dioxide Anion Gap BUN Creatinine Est Cr Clr Drug Dosing Est GFR ( Amer) Est GFR (Non-Af Amer) BUN/Creatinine Ratio Glucose POC Glucose 84 Calcium (1) UTI (urinary tract infection) Hematuria presence: without hematuria Urinary tract infection type: acute cystitis Qualified Code(s): N30.00 - Acute cystitis without hematuria (2) Open wound of knee Encounter type: subsequent encounter Laterality: right Qualified Code(s): S81.001D - Unspecified open wound, right knee, subsequent encounter (3) Diabetes Diabetes mellitus complication detail: with unspecified neuropathy Diabetes mellitus complication status: with neurologic complications Diabetes mellitus laborer marine terminal insulin use: without laborer marine terminal use Diabetes mellitus type: type 2 Qualified Code(s): E11.40 - Type 2 diabetes mellitus with diabetic neuropathy, unspecified (4) Depression Depression Type: unspecified Qualified Code(s): F32.9 - Major depressive disorder, single episode, unspecified (5) Hypothyroid Hypothyroidism type: acquired Qualified Code(s): E03.9 - Hypothyroidism, unspecified (6) Chest pain Chest pain type: unspecified Qualified Code(s): R07.9 - Chest pain, unspecified (7) Hypertension Hypertension type: essential hypertension Qualified Code(s): I10 - Essential (primary) hypertension (8) Asthma Asthma complication type: unspecified Asthma persistence: intermittent Asthma severity: mild Qualified Code(s): J45.20 - Mild intermittent asthma, uncomplicated (9) Osteomyelitis Laterality: right Osteomyelitis location: tibia Osteomyelitis type: chronic, with draining sinus Qualified Code(s): M86.461 - Chronic osteomyelitis with draining sinus, right tibia and fibula
[2018-07-16] MEDS: APIXABAN 5 MG TABLET PO SCH (22:39)
[2018-07-17] MEDS: OXYCODONE/ACETAMINOPHEN 5mg/325mg TAB PO PRN ×3 (02:44→16:41)
[2018-07-17] MEDS: ONDANSETRON INJ 2 MG/ML 2 ML VIAL IV PRN (02:46)
[2018-07-17] MEDS: LEVOTHYROXINE SODIUM 88 MCG TABLET PO SCH (05:50)
[2018-07-17 07:02] LABS: BUN Creatinine Ratio 8.6 (10-20); Calcium 8.9 mg/dl (8.5-10.1); Creatinine Clr Calc Pharmacy 90.8 ml/min; Est GFR (African American) 88.8; Est GFR (Non-African American) 76.6; Potassium 3.8 mmol/L (3.5-5.1)
[2018-07-17] MEDS: NSS + 20MEQ KCL 20 MEQ/1,000 ML BAG IV SCH (09:08)
[2018-07-17] MEDS: METOPROLOL SUCC 25MG EXT REL TAB PO SCH (09:10)
[2018-07-17] MEDS: MAGNESIUM OXIDE 400 MG TAB PO SCH ×2 (09:10→21:06)
[2018-07-17] MEDS: AMIODARONE 200 MG TAB PO SCH (09:10)
[2018-07-17] MEDS: SULFAMETHOXAZOLE/TRIMETHOPRIM DS 800/160MG TAB PO SCH ×2 (09:10→21:06)
[2018-07-17] MEDS: buPROPion HCl 75 MG TABLET PO SCH (09:10)
[2018-07-17] MEDS: APIXABAN 5 MG TABLET PO SCH ×2 (09:10→21:06)
[2018-07-17] MEDS: ATORVASTATIN 40 MG TAB PO SCH (09:10)
[2018-07-17] MEDS: VENLAFAXINE HCL XR 75 MG CAPXR PO SCH (09:11)
[2018-07-17] MEDS: IRON SUCROSE 200 MG in 0.9 % SODIUM CHLORIDE 100 ML IV SCH (09:12)
[2018-07-17] MEDS: INSULIN ASPART 100 UNITS/ML 3 ML PEN SC SCH ×4 (09:15→21:06)
[2018-07-17] MEDS: ESCITALOPRAM OXALATE 10 MG TAB PO SCH (09:33)
[2018-07-17] MEDS: MONTELUKAST SODIUM 10 MG TABLET PO SCH (21:06)
--- NOTE | 2018-07-17 22:06 | Hospitalist Progress Note ---
Date of Service July 17, 2018 Assessment & Plan (1) Ileus: Ongoing but improved. Tolerating clears. Passing flatus and some liquid stools. Advance diet to full liquids. Cut fluid rate to 50cc/hr. Serial exams. Consider repeat imaging tomorrow. BMP in am. Ileus likely due to narcotics and recent anesthesia for left foot surgery. Also has been quite sedentary and moving very little. Present on Admission?: No (2) Severe anemia: acute/chronic Iron deficiency anemia with baseline hgb 9. s/p 2 units PRBCs earlier this admission. decompensated hypothyroidism could also be contributing to anemia. b12/folate wnl. EGD/Colonoscopy on 07/12 without any abnormalities (by Dr Coyle). duodenal biopsies negative for celiac. outpatient capsule endoscopy? defer to GI. s/p venofer x 2 this admission. would give 1 more run of venofer tomorrow then stop. cbc in am. (3) Pyogenic granuloma: Left great toe with possible septic arthritis and/or osteomyelitis. POD #3 - s/p amputation of first/2nd toes by Dr Guzman. appreciate orthopedics assistance. ok to WBAT with surgical shoe in place. IV antibiotics STOPPED by ID. (4) Hyponatremia: Baseline is around 133-135 Nephrology consulted earlier this admission for severe Hyponatremia (<120) and thinks etiology was from combination of decreased EAV from acute on chronic blood loss anemia, hypothyroidism, SSRI therapy. Na continues to be normal. (5) Diabetes: hemoglobin A1c normal at 5.5% controlled holding metformin (6) Hypercholesteremia: statin (7) Hypertension: Continue home Toprol-XL 75 mg daily controlled (8) Asthma: Cont Flovent, Singulair No exacerbation at this time (9) Anxiety: Psych consult appreciated They are reducing wellbutrin and lexapro; effexor xr being added using ativan prn (10) Depression: Psych consult appreciated see above in "anxiety" (11) Osteomyelitis: Chronic in the right knee cont bactrim prophylaxis s/p amputation of LEFT first and 2nd toes for possible osteomyelitis -- POD #3 (12) Paroxysmal a-fib: Continue home amiodarone, Toprol-XL Xarelto was held due to anemia Since H/H have been stable for multiple days placed back on anticoagulation Instead of using xarelto I have opted for eliquis 5mg BID (easier to stop than xarelto given its 1/2 life if there is GI bleeding) (13) Hypothyroid: Decompensated. Increased levothyroxine to 88 mcg at time of admission. repeat TSH in 4 weeks. (14) Alcohol use: no signs of withdrawal during this admission (15) VALERIE (obstructive sleep apnea): Continue nocturnal O2 noncompliant with CPAP in the past (16) Open wound of knee: CHRONIC. RIGHT proximal tibial region. wound care with Aquacel AG and Optifoam. bactrim prophylaxis. (17) UTI (urinary tract infection): 2nd E. coli. completed long course of cefepime earlier this admission. resolved. (18) DVT prophylaxis: eliquis once ileus has resolved can make referral to [facility] for inpt rehab updated sister 07/17 Subjective patient tolerating clears. has been passing copious flatus and has had several liquid stools. no abdominal pain. bloating is better. no vomiting. no significant nausea. pain in left foot is mild. Constitutional: no fever and no chills Respiratory: no dyspnea Cardiovascular: no chest pain, no orthopnea, no paroxysmal nocturnal dyspnea and no edema Gastrointestinal: + bloating Psychiatric: + anxiety Physical Exam Vital Signs (Past 24 Hours): Last Vital Signs Temp 36.7 C 07/17/18 16:00 Pulse 57 L 07/17/18 16:00 Resp 18 07/17/18 16:00 BP 153/86 H 07/17/18 16:00 Pulse Ox 91 07/17/18 16:00 Constitutional: + morbidly obese; no acute distress ENMT: external ear and nose normal, oropharynx normal Respiratory: normal respiratory effort, lungs clear to auscultation Cardiovascular: RRR, no murmur, no edema Heart Sounds: normal S1 and normal S2 Vessels: posterior tibial pulses present and dorsalis pedis pulses present; no JVD Gastrointestinal (Abdomen): Inspection/Auscultation: + abdomen distended (scant improvement from yesterday's exam); + abdomen abnormal to inspection and + abnormal bowel sounds (high pitched at times) Percussion/Palpation: abdomen nontender, no guarding and no hepatosplenomegaly Skin: left foot wrapped in large dressing; cap refill of toes 4/5 about 2 sec Psychiatric: Orientation: alert and oriented x 3 Affect: + anxious affect Results & Data Laboratory Results Laboratory Results - last 24 hr 07/14/18 07/17/18 07/17/18 19:38 06:06 06:06 Hgb 7.9 L Sodium 137 Potassium 3.8 Chloride 107 Carbon Dioxide 26 Anion Gap 5.0 BUN 7 Creatinine 0.85 Est Cr Clr Drug Dosing 90.8 Est GFR ( Amer) 88.8 Est GFR (Non-Af Amer) 76.6 BUN/Creatinine Ratio 8.6 L Glucose 80 POC Glucose Calcium 8.9 Stool Occult Bld Scrn Crossmatch See Detail 07/17/18 07/17/18 07/17/18 07:40 11:40 13:57 Hgb Sodium Potassium Chloride Carbon Dioxide Anion Gap BUN Creatinine Est Cr Clr Drug Dosing Est GFR ( Amer) Est GFR (Non-Af Amer) BUN/Creatinine Ratio Glucose POC Glucose 88 93 Calcium Stool Occult Bld Scrn Negative Crossmatch 07/17/18 07/17/18 16:34 20:02 Hgb Sodium Potassium Chloride Carbon Dioxide Anion Gap BUN Creatinine Est Cr Clr Drug Dosing Est GFR ( Amer) Est GFR (Non-Af Amer) BUN/Creatinine Ratio Glucose POC Glucose 84 118 H Calcium Stool Occult Bld Scrn Crossmatch (1) UTI (urinary tract infection) Hematuria presence: without hematuria Urinary tract infection type: acute cystitis Qualified Code(s): N30.00 - Acute cystitis without hematuria (2) Open wound of knee Encounter type: subsequent encounter Laterality: right Qualified Code(s): S81.001D - Unspecified open wound, right knee, subsequent encounter (3) Diabetes Diabetes mellitus complication detail: with unspecified neuropathy Diabetes mellitus complication status: with neurologic complications Diabetes mellitus termite control service representative insulin use: without termite control service representative use Diabetes mellitus type: type 2 Qualified Code(s): E11.40 - Type 2 diabetes mellitus with diabetic neuropathy, unspecified (4) Depression Depression Type: unspecified Qualified Code(s): F32.9 - Major depressive disorder, single episode, unspecified (5) Hypothyroid Hypothyroidism type: acquired Qualified Code(s): E03.9 - Hypothyroidism, unspecified (6) Hypertension Hypertension type: essential hypertension Qualified Code(s): I10 - Essential (primary) hypertension (7) Asthma Asthma complication type: unspecified Asthma persistence: intermittent Asthma severity: mild Qualified Code(s): J45.20 - Mild intermittent asthma, uncomplicated (8) Osteomyelitis Laterality: right Osteomyelitis location: tibia Osteomyelitis type: chronic, with draining sinus Qualified Code(s): M86.461 - Chronic osteomyelitis with draining sinus, right tibia and fibula
[2018-07-18] MEDS: LEVOTHYROXINE SODIUM 88 MCG TABLET PO SCH (06:05)
[2018-07-18 06:18] LABS: Hematocrit (blood only) 28.3 % (37-47); Hemoglobin 7.9 g/dL (12.0-16.0); Mean Corpuscular Hgb Conc 27.9 g/dL (32-36); Mean Corpuscular Volume 82.5 fL (80-100); Mean Platelet Volume 9.3 fL (7.4-10.4); Platelet Count 246 K/uL (130-400); RDW Coefficient of Variation 23.6 % (11.5-14.5); RDW Standard Deviation 67.9 fL (36.4-46.3); Red Blood Count 3.43 M/uL (4.2-5.4); White Blood Count 4.88 K/uL (4.8-10.8)
[2018-07-18 06:40] LABS: BUN Creatinine Ratio 9.3 (10-20); Calcium 8.8 mg/dl (8.5-10.1); Creatinine Clr Calc Pharmacy 92.2 ml/min; Est GFR (African American) 88.8; Est GFR (Non-African American) 76.6; Potassium 3.8 mmol/L (3.5-5.1)
[2018-07-18 06:44] LABS: Ferritin 341.1 ng/ml (8-388)
[2018-07-18] MEDS: MAGNESIUM OXIDE 400 MG TAB PO SCH ×2 (08:52→22:49)
[2018-07-18] MEDS: SULFAMETHOXAZOLE/TRIMETHOPRIM DS 800/160MG TAB PO SCH ×2 (08:52→22:49)
[2018-07-18] MEDS: buPROPion HCl 75 MG TABLET PO SCH (08:53)
[2018-07-18] MEDS: AMIODARONE 200 MG TAB PO SCH (08:53)
[2018-07-18] MEDS: APIXABAN 5 MG TABLET PO SCH ×2 (08:53→22:49)
[2018-07-18] MEDS: ATORVASTATIN 40 MG TAB PO SCH (08:53)
[2018-07-18] MEDS: ESCITALOPRAM OXALATE 10 MG TAB PO SCH (08:53)
[2018-07-18] MEDS: METOPROLOL SUCC 25MG EXT REL TAB PO SCH (08:53)
[2018-07-18] MEDS: VENLAFAXINE HCL XR 75 MG CAPXR PO SCH (08:54)
[2018-07-18] MEDS: INSULIN ASPART 100 UNITS/ML 3 ML PEN SC SCH ×4 (08:56→20:56)
[2018-07-18] MEDS: IRON SUCROSE 200 MG in 0.9 % SODIUM CHLORIDE 100 ML IV SCH (09:04)
[2018-07-18] MEDS: LORazepam 1 MG TAB PO PRN (10:11)
[2018-07-18] MEDS: OXYCODONE/ACETAMINOPHEN 5mg/325mg TAB PO PRN (12:49)
--- NOTE | 2018-07-18 15:39 | XRay Report ---
XR abdomen min 2V CLINICAL HISTORY: ongoing ileus? SBO? Pain. Obstruction. COMPARISON STUDY: 07/15/2018 FINDINGS: Mild increase in colonic distention compared to the prior study. The distention primarily i nvolves the cecum, a sending, and transverse colonic regions. Maximum diameter of the cecum is 12 cm. Maximum diameter transverse colon is 8 cm. This is slightly increased from the prior study. There continues been no significant small bowel distention. IMPRESSION: Mild increase in distention of the proximal to mid colon. The above report was generated using voice recognition software. It may contain grammatical, syntax or spelling errors. Electronically signed by: Gerardo Moss M.D. 07/18/2018 3:38 PM
[2018-07-18] MEDS: D5W AND 1/2NSS + 20MEQ KCL 20 MEQ/1,000 ML BAG IV SCH (16:05)
--- NOTE | 2018-07-18 21:16 | Hospitalist Progress Note ---
Date of Service July 18, 2018 Assessment & Plan (1) Ileus: Marked distension on exam with no significant improvement overnight. Repeat x-rays with cecal and proximal colonic dilatation. Very little distal gas seen. Will obtain CT abd/pelvis - IV/PO contrast - to ensure no cecal volvulus, col onic obstruction, etc. Make NPO. Resume IV fluids. Limit narcotics. Hopefully this is still a post-op ileus and the issue will improve w/ time. (2) Severe anemia: acute/chronic Iron deficiency anemia with baseline hgb 9. s/p 2 units PRBCs earlier this admission. decompensated hypothyroidism could also be contributing to anemia. b12/folate wnl. stool yesterday was heme negative. EGD/Colonoscopy on 07/12/18 without any abnormalities (by Dr Coyle). duodenal biopsies negative for celiac. outpatient capsule endoscopy? defer to GI. s/p venofer x 3 this admission. ferritin this am in the 300s. no further venofer infusions. H/H stable today. cbc in am. (3) Pyogenic granuloma: Left great toe with possible septic arthritis and/or osteomyelitis. POD #4 - s/p amputation of first/2nd toes by Dr Guzman. appreciate orthopedics assistance. ok to WBAT with surgical shoe in place. IV antibiotics STOPPED by ID. patient with sleepiness with taking oxycodone prn. will change oxycodone to norco prn. (4) Hyponatremia: Baseline is around 133-135 Nephrology consulted earlier this admission for severe Hyponatremia (<120) and thinks etiology was from combination of decreased EAV from acute on chronic blood loss anemia, hypothyroidism, SSRI therapy. Na continues to be normal. (5) Diabetes: hemoglobin A1c normal at 5.5% controlled holding metformin (6) Hypercholesteremia: statin (7) Hypertension: Continue home Toprol-XL 75 mg daily controlled (8) Asthma: Cont Flovent, Singulair No exacerbation at this time (9) Anxiety: Psych consult appreciated They are reducing wellbutrin and lexapro; effexor xr being added using ativan prn (10) Depression: Psych consult appreciated see above in "anxiety" (11) Osteomyelitis: Chronic in the right knee cont bactrim prophylaxis s/p amputation of LEFT first and 2nd toes for possible osteomyelitis -- POD #3 (12) Paroxysmal a-fib: Continue home amiodarone, Toprol-XL Xarelto was held due to anemia Since H/H have been stable for multiple days placed back on anticoagulation Instead of using xarelto I have opted for eliquis 5mg BID (easier to stop than xarelto given its shorter 1/2 life if there is GI bleeding) (13) Hypothyroid: Decompensated at time of admission. Increased levothyroxine to 88 mcg early in this stay. repeat TSH in 4 weeks post-discharge. (14) Alcohol use: no signs of withdrawal during this admission was previously on etoh withdrawal protocol stop any IV/PO ativan due to sleepiness (15) VALERIE (obstructive sleep apnea): Continue nocturnal O2 noncompliant with CPAP in the past (16) Open wound of knee: CHRONIC. RIGHT proximal tibial region. wound care with Aquacel AG and Optifoam. bactrim prophylaxis resumed several days ago. (17) UTI (urinary tract infection): 2nd E. coli. completed long course of cefepime earlier this admission. resolved. (18) Morbid obesity with BMI of 45.0-49.9, adult: BMI 46 (19) DVT prophylaxis: eliquis once ileus has resolved can make referral to [facility] for [facility]pt rehab updated sister 07/17 Subjective patient states "I don't feel well today." reports headache. appetite not as good although she is tolerating full liquids. no vomiting but some nausea. passing flatus but no stool today. during the visit she was quite sleepy but able to answer questions and give history. review of MAR shows she received ativan and pain meds 1-2 hours prior. also c/o pain in left foot. throbbing, some pins/needles feeling. Constitutional: no fever Respiratory: no cough and no dyspnea Cardiovascular: no chest pain Gastrointestinal: + nausea and + constipation; no abdominal pain, no belching, no vomiting and no excessive flatulence Physical Exam Vital Signs (Past 24 Hours): Last Vital Signs Temp 36.7 C 07/18/18 16:27 Pulse 58 L 07/18/18 16:27 Resp 16 07/18/18 16:27 BP 132/87 07/18/18 16:27 Pulse Ox 92 07/18/18 16:27 Constitutional: + morbidly obese; no acute distress mildly sleepy ENMT: external ear and nose normal, oropharynx normal Respiratory: normal respiratory effort, lungs clear to auscultation Cardiovascular: RRR, no murmur, no edema Heart Sounds: normal S1 and normal S2 Vessels: posterior tibial pulses present and dorsalis pedis pulses present; no JVD Gastrointestinal (Abdomen): Inspection/Auscultation: + abdomen distended (no change from yesterday's exam); + abdomen abnormal to inspection and + abnormal bowel sounds (still high-pitched bowel sounds) Percussion/Palpation: abdomen nontender, no guarding and no hepatosplenomegaly Skin: left foot unchanged; cap refill about 2 seconds Psychiatric: Orientation: alert and oriented x 3 Affect: + tearful affect Results & Data Laboratory Results Laboratory Results - last 24 hr 07/18/18 07/18/18 07/18/18 05:42 05:42 07:55 WBC 4.88 RBC 3.43 L Hgb 7.9 L Hct 28.3 L MCV 82.5 MCH 23.0 L MCHC 27.9 L RDW Std Deviation 67.9 H RDW Coeff of Yazmin 23.6 H Plt Count 246 MPV 9.3 Sodium 138 Potassium 3.8 Chloride 106 Carbon Dioxide 26 Anion Gap 6.0 BUN 8 Creatinine 0.85 Est Cr Clr Drug Dosing 92.2 Est GFR ( Amer) 88.8 Est GFR (Non-Af Amer) 76.6 BUN/Creatinine Ratio 9.3 L Glucose 77 POC Glucose 92 Calcium 8.8 Ferritin 341.1 07/18/18 07/18/18 07/18/18 12:21 16:41 20:14 WBC RBC Hgb Hct MCV MCH MCHC RDW Std Deviation RDW Coeff of Yazmin Plt Count MPV Sodium Potassium Chloride Carbon Dioxide Anion Gap BUN Creatinine Est Cr Clr Drug Dosing Est GFR ( Amer) Est GFR (Non-Af Amer) BUN/Creatinine Ratio Glucose POC Glucose 82 96 101 H Calcium Ferritin (1) UTI (urinary tract infection) Hematuria presence: without hematuria Urinary tract infection type: acute cystitis Qualified Code(s): N30.00 - Acute cystitis without hematuria (2) Open wound of knee Encounter type: subsequent encounter Laterality: right Qualified Code(s): S81.001D - Unspecified open wound, right knee, subsequent encounter (3) Diabetes Diabetes mellitus complication detail: with unspecified neuropathy Diabetes mellitus complication status: with neurologic complications Diabetes mellitus detention insulin use: without terminal system operator use Diabetes mellitus type: type 2 Qualified Code(s): E11.40 - Type 2 diabetes mellitus with diabetic neuropathy, unspecified (4) Depression Depression Type: unspecified Qualified Code(s): F32.9 - Major depressive disorder, single episode, unspecified (5) Hypothyroid Hypothyroidism type: acquired Qualified Code(s): E03.9 - Hypothyroidism, unspecified (6) Hypertension Hypertension type: essential hypertension Qualified Code(s): I10 - Essential (primary) hypertension (7) Asthma Asthma complication type: unspecified Asthma persistence: intermittent Asthma severity: mild Qualified Code(s): J45.20 - Mild intermittent asthma, uncomplicated (8) Osteomyelitis Laterality: right Osteomyelitis location: tibia Osteomyelitis type: chronic, with draining sinus Qualified Code(s): M86.461 - Chronic osteomyelitis with draining sinus, right tibia and fibula
[2018-07-18] MEDS ORDERED: IOVERSOL 100ml IV PRN (22:36)
--- NOTE | 2018-07-18 22:44 | CT Scan Report ---
CT abd pelvis oral and IV con CT DOSE: 1015.26 mGycm HISTORY: Pain colonic ileus? colonic obstruction? TECHNIQUE: Multiaxial CT images of the abdomen and pelvis were performed following the use of intrave nous and oral contrast. A dose lowering technique was utilized adhering to the principles of ALARA. COMPARISON STUDY: None. FINDINGS: Trace right pleural effusion. Mild right basilar atelectasis. Left base is clear. Liver demonstrates a suggestion of early cirrhotic change. There is a trace amount of perihepatic asc ites. There are findings of moderate body wall anasarca. The kidneys enhance uniformly. There are negative for hydronephrosis. Moderate distention of proximal to mid transverse colon which smoothly tapers to a normal caliber dis nathan transverse colon as well as descending colon. A well-defined obstructing process is not identifie d. Bladder is midline. There is no evidence for rectal distention. IMPRESSION: 1. Mild distention of the proximal to mid transverse colon with remainder the colon unremarkable in c aliber 2. No evidence for well-defined obstructing lesion with this appearance suggestive of ileus. 3. Moderate generalized body wall anasarca. 4. Small right basilar pleural effusion with right basilar atelectatic change. 5. Hepatic appearance suggesting developing hepatic cirrhosis with a trace amount of abdominal and to a lesser extent pelvic ascites. The above report was generated using voice recognition software. It may contain grammatical, syntax or spelling errors. Electronically signed by: Gerardo Moss M.D. 07/18/2018 10:43 PM
[2018-07-18] MEDS: MONTELUKAST SODIUM 10 MG TABLET PO SCH (22:49)
[2018-07-18] MEDS: HYDROCODONE/ACETAMINOPHEN 7.5/325MG TAB PO PRN (22:54)
[2018-07-19] MEDS: D5W AND 1/2NSS + 20MEQ KCL 20 MEQ/1,000 ML BAG IV SCH ×3 (02:23→22:39)
[2018-07-19] MEDS: ONDANSETRON INJ 2 MG/ML 2 ML VIAL IV PRN (04:38)
[2018-07-19] MEDS: LEVOTHYROXINE SODIUM 88 MCG TABLET PO SCH (05:55)
[2018-07-19] MEDS: SULFAMETHOXAZOLE/TRIMETHOPRIM DS 800/160MG TAB PO SCH ×2 (07:50→20:25)
[2018-07-19] MEDS: buPROPion HCl 75 MG TABLET PO SCH (07:51)
[2018-07-19] MEDS: MAGNESIUM OXIDE 400 MG TAB PO SCH ×2 (07:51→20:25)
[2018-07-19] MEDS: VENLAFAXINE HCL XR 75 MG CAPXR PO SCH (07:52)
[2018-07-19] MEDS: METOPROLOL SUCC 25MG EXT REL TAB PO SCH (07:52)
[2018-07-19] MEDS: APIXABAN 5 MG TABLET PO SCH ×2 (07:52→20:25)
[2018-07-19] MEDS: ATORVASTATIN 40 MG TAB PO SCH (07:53)
[2018-07-19] MEDS: AMIODARONE 200 MG TAB PO SCH (07:53)
[2018-07-19] MEDS: ESCITALOPRAM OXALATE 10 MG TAB PO SCH (07:53)
[2018-07-19 08:07] LABS: Hematocrit (blood only) 29.2 % (37-47); Hemoglobin 8.4 g/dL (12.0-16.0); Mean Corpuscular Hgb Conc 28.8 g/dL (32-36); Mean Corpuscular Volume 81.1 fL (80-100); Mean Platelet Volume 9.6 fL (7.4-10.4); Platelet Count 231 K/uL (130-400); RDW Standard Deviation 68.6 fL (36.4-46.3); White Blood Count 4.31 K/uL (4.8-10.8)
[2018-07-19 08:18] LABS: Creatinine Clr Calc Pharmacy 94.9 ml/min; Est GFR (African American) 91.4; Est GFR (Non-African American) 78.8; Magnesium 1.7 mg/dl (1.8-2.4); Potassium 4.1 mmol/L (3.5-5.1)
--- NOTE | 2018-07-19 09:50 | Hospitalist Progress Note ---
Date of Service July 19, 2018 Assessment & Plan (1) Ileus: This is resolved clinically with bowel production and increased request for oral intake. CT scan from 07/18 . Mild distention of the proximal to mid transverse colon with remainder the colon unremarkable in caliber No evidence for well-defined obstructing lesion with this appearance suggestive of ileus. Small right basilar pleural effusion with right basilar atelectatic change. Hepatic appearance suggesting developing hepatic cirrhosis with a trace amount of abdominal and to a lesser extent pelvic ascites. Supportive care hopeful that diarrhea is related to the contrast material used with the CT scan (2) Severe anemia: acute/chronic Iron deficiency anemia with baseline hgb 9. s/p 2 units PRBCs earlier this admission. decompensated hypothyroidism could also be contributing to anemia. b12/folate wnl. EGD/Colonoscopy on 07/12/18 without any abnormalities (by Dr Coyle). duodenal biopsies negative for celiac. outpatient capsule endoscopy if anemia remains persistent? defer to GI. s/p venofer x 3 this admission. ferritin this am in the 300s. no further venofer infusions. (3) Pyogenic granuloma: Left great toe with possible septic arthritis and/or osteomyelitis. s/p amputation of first/2nd toes by Dr Guzman ok to WBAT with surgical shoe in place. IV antibiotics STOPPED by ID. Pain control is fair if phantom pain persist may consider Neurontin Lyrica etc. (4) Diabetes: hemoglobin A1c normal at 5.5% controlled holding metformin (5) Hypertension: Continue home Toprol-XL dose changed to 75 mg daily controlled (6) Asthma: Cont Flovent, Singulair No exacerbation at this time (7) Anxiety: Psych consult appreciated They are reducing wellbutrin and lexapro; effexor xr being added using ativan prn (8) Depression: Psych consult appreciated see above in "anxiety" (9) Osteomyelitis: Chronic in the right knee cont bactrim prophylaxis s/p amputation of LEFT first and 2nd toes for possible osteomyelitis -- (10) Paroxysmal a-fib: Continue home amiodarone, Toprol-XL Xarelto was held due to anemia Since H/H have been stable for multiple days placed back on anticoagulation Instead of using xarelto previous physician has opted for eliquis 5mg BID (easier to stop than xarelto given its shorter 1/2 life if there is GI bleeding) (11) Hypothyroid: Decompensated at time of admission. Increased levothyroxine to 88 mcg early in this stay. repeat TSH in 4 weeks post-discharge. (12) Alcohol use: no signs of withdrawal during this admission stop any IV/PO ativan due to sleepiness (13) VALERIE (obstructive sleep apnea): Continue nocturnal O2 noncompliant with CPAP in the past (14) Open wound of knee: CHRONIC. RIGHT proximal tibial region. wound care with Aquacel AG and Optifoam. bactrim prophylaxis resumed several days ago. (15) UTI (urinary tract infection): 2nd E. coli. completed long course of cefepime earlier this admission. (16) Morbid obesity with BMI of 45.0-49.9, adult: BMI 46 (17) DVT prophylaxis: eliquis once ileus has resolved can make referral to [facility] for inpt rehab updated sister 07/17 (18) Hyponatremia: Baseline is around 133-135 Nephrology consulted earlier this admission for severe Hyponatremia (<120) and thinks etiology was from combination of decreased EAV from acute on chronic blood loss anemia, hypothyroidism, SSRI therapy. Na continues to be normal. (19) Hypercholesteremia: statin Subjective Patient feels improved today she is having increased loose bowel movements which may be result to the oral contrast given for CT scan. Patient has some residual pain and phantom pain of her left foot and toes. She is beginning to ambulate with help of physical therapy about her room her diarrhea has been tested and found to be negative for C. difficile Review of Systems ROS: well nourished well developed. Morbidly obese No double vision blurry vision No problems with speech or swallowing No palpitations, chest pain or pressure No Wheezing or breathing issues Mild diffuse abdominal pain, no nausea vomiting No burning urine urine frequency or changes in color Her left foot is sore at the distal area of amputation Chronic skin changes to her lower extremities No unusual bruising or bleeding No focused back pain or numbness or loss of strength No changes in memory or confusion Physical Exam Vital Signs (Past 24 Hours): Last Vital Signs Temp 36.8 C 07/19/18 07:30 Pulse 78 07/19/18 07:30 Resp 20 07/19/18 07:30 BP 160/90 H 07/19/18 07:30 Pulse Ox 98 07/19/18 07:30 The patient appeared mildly fatigued dyspneic on exertion with a short walk from the bathroom Vital signs as documented. Head exam is unremarkable. normocephalic, atraumatic Neck is without jugular venous distension, thyromegaly, or lymphademopathy Lungs are diminished bilaterally with mild rales at the bases Cardiac exam reveals Rhythm is regular. First and second heart sounds normal. Abdominal exam reveals hypoactive bowel sounds, mildly tender to exam no masses, no organomegaly Extremities are moderately edematous bilaterally and both pedal pulses are present Neurologic exam is A&Ox3, no focal deficits, strength is equal bilateral globally diminished Psychologically seems neither anxious or depressed Skin is warm Dry with changes of chronic venous stasis beginning on her lower extremities (1) UTI (urinary tract infection) Hematuria presence: without hematuria Urinary tract infection type: acute cystitis Qualified Code(s): N30.00 - Acute cystitis without hematuria (2) Open wound of knee Encounter type: subsequent encounter Laterality: right Qualified Code(s): S81.001D - Unspecified open wound, right knee, subsequent encounter (3) Diabetes Diabetes mellitus complication detail: with unspecified neuropathy Diabetes mellitus complication status: with neurologic complications Diabetes mellitus intermediate school teacher insulin use: without intermediate school teacher use Diabetes mellitus type: type 2 Qualified Code(s): E11.40 - Type 2 diabetes mellitus with diabetic neuropathy, unspecified (4) Depression Depression Type: unspecified Qualified Code(s): F32.9 - Major depressive disorder, single episode, unspecified (5) Hypothyroid Hypothyroidism type: acquired Qualified Code(s): E03.9 - Hypothyroidism, unspecified (6) Hypertension Hypertension type: essential hypertension Qualified Code(s): I10 - Essential (primary) hypertension (7) Asthma Asthma complication type: unspecified Asthma persistence: intermittent Asthma severity: mild Qualified Code(s): J45.20 - Mild intermittent asthma, uncomplicated (8) Osteomyelitis Laterality: right Osteomyelitis location: tibia Osteomyelitis type: chronic, with draining sinus Qualified Code(s): M86.461 - Chronic osteomyelitis with draining sinus, right tibia and fibula
[2018-07-19] MEDS: INSULIN ASPART 100 UNITS/ML 3 ML PEN SC SCH ×4 (10:21→21:48)
[2018-07-19] MEDS: HYDROCODONE/ACETAMINOPHEN 7.5/325MG TAB PO PRN ×2 (12:58→20:25)
--- NOTE | 2018-07-19 17:01 | Progress Note ---
DATE: 07/19/2018 The patient had developed a postop ileus following amputation of her first and second toes on the left foot a few days ago. Her right colon was fairly distended with the cecum up to 12 cm in diameter at one point. She was not moving her bowels, but as of today she is passing gas and has had 4-5 liquidy bowel movements. Is currently on clear liquids. PHYSICAL EXAMINATION: VITAL SIGNS: She is afebrile. ABDOMEN: Obese but soft and nondistended. There is no tenderness anywhere throughout the abdomen on physical exam. IMPRESSION: The patient had postop ileus following toe amputations that is now resolving. She is having her diet advanced to full liquids this evening and if she tolerates that continues to move her bowels. We hopefully will be able to advance her diet starting tomorrow. I have no further suggestions at this time. Her colonoscopy on 07/12/2018 did not show any signs of obstruction and I do not think any further input is needed.
[2018-07-19] MEDS: MONTELUKAST SODIUM 10 MG TABLET PO SCH (20:25)
--- NOTE | 2018-07-20 00:08 | History & Physical Bridge Note ---
Date of Service July 20, 2018 History & Physical Bridge Note I have examined the patient, reviewed the History & Physical and in the interval since the performance of the History & Physical I have noted the following changes of clinical significance: no changes noted
[2018-07-20] MEDS: ACETAMINOPHEN 325 MG TAB PO PRN ×2 (00:30→18:35)
[2018-07-20] MEDS: LEVOTHYROXINE SODIUM 88 MCG TABLET PO SCH (05:57)
[2018-07-20] MEDS: ATORVASTATIN 40 MG TAB PO SCH (08:49)
[2018-07-20] MEDS: AMIODARONE 200 MG TAB PO SCH (08:49)
[2018-07-20] MEDS: APIXABAN 5 MG TABLET PO SCH ×2 (08:49→20:53)
[2018-07-20] MEDS: ESCITALOPRAM OXALATE 10 MG TAB PO SCH (08:49)
[2018-07-20] MEDS: SULFAMETHOXAZOLE/TRIMETHOPRIM DS 800/160MG TAB PO SCH ×2 (08:49→20:52)
[2018-07-20] MEDS: MAGNESIUM OXIDE 400 MG TAB PO SCH ×2 (08:49→20:53)
[2018-07-20] MEDS: VENLAFAXINE HCL XR 75 MG CAPXR PO SCH (08:49)
[2018-07-20] MEDS: buPROPion HCl 75 MG TABLET PO SCH (08:50)
[2018-07-20] MEDS: METOPROLOL SUCC 25MG EXT REL TAB PO SCH (08:50)
[2018-07-20] MEDS: INSULIN ASPART 100 UNITS/ML 3 ML PEN SC SCH ×4 (09:23→20:14)
[2018-07-20] MEDS: HYDROCODONE/ACETAMINOPHEN 7.5/325MG TAB PO PRN ×3 (09:29→21:49)
--- NOTE | 2018-07-20 13:04 | Psychiatric Progress Note ---
Date of Service July 20, 2018 Impression / Recommendations Impression Much improved over last visit in terms of mood, anxiety, and alcohol withdraw. She anticipates moving to rehab soon, and so will complete the cross over to Effexor XR by increasing to 150 mg and stopping both Wellbutrin and Lexapro. (1) Depression: 07/13 - REduce Wellbutrin to 75 mg daily and Lexapro to 10 mg daily - Start Effexor XR 75 mg daily - Refer to [facility] for psychiatric aftercare 07/20 - Increase Effexor XR to 150 mg daily - DC Lexapro and Wellbutrin (2) Anxiety: Risk Factors Assessment Male: No : Yes Do You Have Access To A Gun?: No Health Problems: Yes Mental Health Diagnoses: Yes Substance Use Disorders: Yes Previous Attempt: No Family History of Suicide: No Previous Psychiatric Hospitalization: No Smoker: No Protective Factors Assessment : No Responsible for Young Children: No Employed: Yes Stable Relationships: Yes Supportive Family: Yes Interval History Chief Complaint "Much better. ". Subjective Subjective Patient was seen & assessed and interval progress reviewed. Chely says that she is feeling much better, with improved mood and anxiety since last seen. She says that she had one set back with food, but has since recovered and is looking forward to going to [facility] for rehab if accepted. She says that she is not missing the alcohol, denies any further withdrawal symptoms, and was pleasantly surprised that it wasn't a more painful process. She is appreciating the nursing care she is getting. She denies SI. Procedures Performed Operation Date: 07/12/18 09:10 Actual Procedures p EGD Biopsy Cytology - Rohan barrera Colonoscopy - Rohan Coyle Operation Date: 07/14/18 15:00 Actual Procedures p Left 1st and 2nd Toe Amputation(Left) - Hal Guzman MD Physical Exam Psychiatric Orientation: alert and cooperative Apperance: appropriately dressed and appropriately groomed Eye Contact: good eye contact Motor Behavior: no abnormal motor movements Speech: normal rate/rhythm/volume of speech Affect: euthymic affect Mood: no depressed mood and no anxious mood Thought Process: goal directed thought process Thought Content: reality based without delusions Suicidal Thoughts: denies suicidal thoughts Homicidal Thoughts: denies homicidal thoughts Hallucinations: no auditory hallucinations and no visual hallucinations Cognition: recent memory grossly intact, remote memory grossly intact, attention grossly intact and language grossly intact Estimated Intelligence: average estimated intelligence Insight: + fair insight Judgement: + fair judgement Vital Signs (Past 24 Hours) Last Vital Signs Temp 36.7 C 07/20/18 07:12 Pulse 79 07/20/18 07:12 Resp 16 07/20/18 07:12 BP 166/96 H 07/20/18 07:12 Pulse Ox 94 07/20/18 07:12 Results & Data Laboratory Results Laboratory Results - last 24 hr 07/19/18 07/19/18 07/20/18 16:59 20:32 07:36 POC Glucose 108 H 114 H 106 H 07/20/18 11:19 POC Glucose 118 H Current Inpatient Medications Current Inpatient Medications: Current Inpatient Medications Acetaminophen (Tylenol) 650 mg PO Q4H PRN PRN Reason: Pain or Fever Stop: 08/08/18 20:41 Last Admin: 07/20/18 00:30 Dose: 650 mg Documented by: Hydrocodone Bitart/Acetaminophen ([place] 7.5/325mg) 1 tab PO Q6H PRN PRN Reason: Pain Stop: 08/01/18 14:53 Last Admin: 07/20/18 09:29 Dose: 1 tab Documented by: Amiodarone HCl (Cordarone) 200 mg PO DAILY [facility] Stop: 08/09/18 08:59 Last Admin: 07/20/18 08:49 Dose: 200 mg Documented by: Apixaban (Eliquis) 5 mg PO BID [facility] Stop: 08/15/18 21:29 Last Admin: 07/20/18 08:49 Dose: 5 mg Documented by: Atorvastatin Calcium (Lipitor) 40 mg PO DAILY [facility] Stop: 08/10/18 08:59 Last Admin: 07/20/18 08:49 Dose: 40 mg Documented by: Bupropion HCl (Wellbutrin) 75 mg PO DAILY [facility] Stop: 08/13/18 08:59 Last Admin: 07/20/18 08:50 Dose: 75 mg Documented by: Dextrose (Dextrose 50%) 25 - 50 ml IV UD PRN; Protocol PRN Reason: Hypoglycemia Protocol Stop: 08/09/18 10:45 Escitalopram Oxalate (Lexapro) 10 mg PO DAILY [facility] Stop: 08/16/18 08:59 Last Admin: 07/20/18 08:49 Dose: 10 mg Documented by: Glucagon (Glucagen) 1 mg SQ UD PRN; Protocol PRN Reason: Hypoglycemia Protocol Stop: 08/09/18 10:45 Glucose (Glucose 40%) 15 - 30 gm PO UD PRN; Protocol PRN Reason: Hypoglycemia Protocol Stop: 08/09/18 10:45 Glucose (Dex4 Glucose) 4 - 8 tabs PO UD PRN; Protocol PRN Reason: Hypoglycemia Protocol Stop: 08/09/18 10:45 Insulin Aspart (Novolog Flexpen) 0 units SC ACHS [facility] Stop: 08/15/18 00:00 Last Admin: 07/20/18 12:57 Dose: Not Given Documented by: Ioversol (Optiray 320 100ml) 94 ml IV ONCE PRN PRN Reason: Interaction Checking Stop: 07/22/18 22:35 Last Admin: 07/18/18 22:36 Dose: 94 ml Documented by: Levothyroxine Sodium (Synthroid) 88 mcg PO DAILYBB [facility] Stop: 08/11/18 06:29 Last Admin: 07/20/18 05:57 Dose: 88 mcg Documented by: Magnesium Hydroxide (Milk Of Magnesia) 30 ml PO Q12H PRN PRN Reason: Constipation Stop: 08/08/18 20:41 Last Admin: 07/15/18 12:54 Dose: 30 ml Documented by: Magnesium Oxide (Mag-Ox) 400 mg PO BID [facility] Stop: 08/08/18 21:14 Last Admin: 07/20/18 08:49 Dose: 400 mg Documented by: Metoprolol Succinate (Toprol Xl) 75 mg PO DAILY [facility] Stop: 08/09/18 08:59 Last Admin: 07/20/18 08:50 Dose: 75 mg Documented by: Miscellaneous (Order Awaiting Action) 1 ea N/A QS [facility] Stop: 08/09/18 00:00 Last Admin: 07/20/18 07:39 Dose: Not Given Documented by: Miscellaneous (Carbohydrates For Hypoglycemia) 15 - 30 gm PO UD PRN PRN Reason: Hypoglycemia Treatment Stop: 08/09/18 10:45 Montelukast Sodium (Singulair) 10 mg PO QPM [facility] Stop: 08/09/18 20:59 Last Admin: 07/19/18 20:25 Dose: 10 mg Documented by: Ondansetron HCl (Zofran) 4 mg IV Q6H PRN PRN Reason: Nausea Stop: 08/08/18 20:41 Last Admin: 07/19/18 04:38 Dose: 4 mg Documented by: Trimethoprim/Sulfamethoxazole (Septra Ds 800/160mg Tab) 1 tab PO BID [facility] Stop: 08/20/18 20:59 Last Admin: 07/20/18 08:49 Dose: 1 tab Documented by: Venlafaxine HCl (Effexor Extended Release) 75 mg PO QAM [facility] Stop: 08/13/18 08:59 Last Admin: 07/20/18 08:49 Dose: 75 mg Documented by: CPT Code CPT Code 20402 (1) Depression Depression Type: unspecified Qualified Code(s): F32.9 - Major depressive disorder, single episode, unspecified
--- NOTE | 2018-07-20 14:53 | Orthopedic Progress Note ---
Date of Service July 20, 2018 Assessment & Plan (1) Osteomyelitis: POD #6 from left great toe and second toe amputation for chronic infection. She was seen and examined by Dr. Guzman today as well. Dressing was removed and new dressing applied. She can be wbat with the post op shoe. She is hoping to be discharged tomorrow to [facility]. She should follow up with Dr. Guzman in clinic in 1-2 weeks. Boo Mo is POD #6 from left great toe and second toe amputations. She has been walking some without foot pain but has some pain at rest. She did develop an ileus. Physical Exam Vital Signs (Past 24 Hours): Last Vital Signs Temp 36.7 C 07/20/18 07:12 Pulse 79 07/20/18 07:12 Resp 16 07/20/18 07:12 BP 166/96 H 07/20/18 07:12 Pulse Ox 94 07/20/18 07:12 Musculoskeletal: Dressing had some dried blood on it. We removed the dressing today. Incisions are intact, stitches intact. Some swelling and ecchymosis of her foot. Good distal pulse.
--- NOTE | 2018-07-20 19:24 | Hospitalist Progress Note ---
Date of Service July 20, 2018 Assessment & Plan (1) Ileus: Patient is tolerated advancing diet and bowel movements are beginning to firm up Previous CT scan there was evidence of a small right basilar pleural effusion with right basilar atelectatic change. Hepatic appearance suggesting developing hepatic cirrhosis with a trace amount of abdominal and to a lesser extent pelvic ascites. (2) Severe anemia: Has remained stable acute/chronic Iron deficiency anemia with baseline hgb 9. s/p 2 units PRBCs earlier this admission. decompensated hypothyroidism could also be contributing to anemia. b12/folate wnl. EGD/Colonoscopy on 07/12/18 without any abnormalities (by Dr Coyle). duodenal biopsies negative for celiac. outpatient capsule endoscopy if anemia remains persistent? defer to GI. s/p venofer x 3 this admission. ferritin this am in the 300s. no further venofer infusions. (3) Pyogenic granuloma: Left great toe with possible septic arthritis and/or osteomyelitis. s/p amputation of first/2nd toes by Dr Guzman, ok to WBAT with surgical shoe in place. IV antibiotics STOPPED by ID. Pain control remains improved with less phantom pain (4) Diabetes: hemoglobin A1c normal at 5.5% controlled, will reinstitute her metformin 07/20 (5) Hypertension: Continue home Toprol-XL dose changed to 75 mg daily controlled (6) Asthma: Cont Flovent, Singulair No exacerbation at this time (7) Anxiety: Psych consult appreciated They are reducing wellbutrin and lexapro; effexor xr being added pharmacy is working with psychiatry to continue to amend her medications using ativan prn (8) Depression: Psych consult appreciated see above in "anxiety" (9) Osteomyelitis: Chronic in the right knee cont bactrim prophylaxis s/p amputation of LEFT first and 2nd toes for possible osteomyelitis -- (10) Paroxysmal a-fib: Continue home amiodarone, Toprol-XL Xarelto was held due to anemia Since H/H have been stable for multiple days placed back on anticoagulation Instead of using xarelto previous physician has opted for eliquis 5mg BID (easier to stop than xarelto given its shorter 1/2 life if there is GI bleeding) (11) Hypothyroid: Decompensated at time of admission. Increased levothyroxine to 88 mcg early in this stay. repeat TSH in 4 weeks post-discharge. (12) Alcohol use: no signs of withdrawal during this admission stop any IV/PO ativan due to sleepiness (13) VALERIE (obstructive sleep apnea): Continue nocturnal O2 noncompliant with CPAP in the past (14) Open wound of knee: CHRONIC. RIGHT proximal tibial region. wound care with Aquacel AG and Optifoam. bactrim prophylaxis resumed several days ago. (15) UTI (urinary tract infection): 2nd E. coli. completed long course of cefepime earlier this admission. (16) Morbid obesity with BMI of 45.0-49.9, adult: BMI 46 (17) DVT prophylaxis: eliquis once ileus has resolved can make referral to [facility] for inpt rehab (18) Hyponatremia: Baseline is around 133-135 Nephrology consulted earlier this admission for severe Hyponatremia (<120) and thinks etiology was from combination of decreased EAV from acute on chronic blood loss anemia, hypothyroidism, SSRI therapy. Na continues to be normal. (19) Hypercholesteremia: statin Subjective Patient is in good conditions today she is less foot pain she still having some shortness of breath ambulating about she is encouraged to consider rehabilitation Review of Systems ROS: well nourished well developed. No double vision blurry vision No problems with speech or swallowing No palpitations, chest pain or pressure No Wheezing or breathing issues. A mild cough No abdominal pain nausea vomiting, diarrhea has reduced with escalation of diet No burning urine urine frequency or changes in color No focal joint pain or muscle pain No skin rashes or oral lesions other than her surgical site No unusual bruising or bleeding No focused back pain or numbness or loss of strength No changes in memory or confusion Physical Exam 2 Vital Signs (Past 24 Hours): Last Vital Signs Temp 36.8 C 07/20/18 15:01 Pulse 68 07/20/18 15:01 Resp 16 07/20/18 15:01 BP 166/94 H 07/20/18 15:01 Pulse Ox 92 07/20/18 15:01 The patient appeared well nourished and normally developed. Vital signs as documented. Head exam is unremarkable. normocephalic, atraumatic Neck is without jugular venous distension, thyromegaly, or lymphademopathy Lungs are clear to auscultation and percussion. Deep inspiration problems coughing Cardiac exam reveals Rhythm is regular. First and second heart sounds normal. Abdominal exam reveals normal bowel sounds, no masses, no organomegaly Extremities are nonedematous and both pedal pulses are present she is a dressing on her left foot with a orthopedic shoe Neurologic exam is A&Ox3,, strength is equal bilateral and improving daily Psychologically seems neither anxious or depressed (1) Diabetes Diabetes mellitus type: type 2 Diabetes mellitus assisted insulin use: without assisted use Diabetes mellitus complication status: with neurologic complications Diabetes mellitus complication detail: with unspecified neuropathy Qualified Code(s): E11.40 - Type 2 diabetes mellitus with diabetic neuropathy, unspecified (2) Hypertension Hypertension type: essential hypertension Qualified Code(s): I10 - Essential (primary) hypertension (3) Asthma Asthma severity: mild Asthma persistence: intermittent Asthma complication type: unspecified Qualified Code(s): J45.20 - Mild intermittent asthma, uncomplicated (4) Depression Depression Type: unspecified Qualified Code(s): F32.9 - Major depressive disorder, single episode, unspecified (5) Osteomyelitis Osteomyelitis type: chronic, with draining sinus Osteomyelitis location: tibia Laterality: right Qualified Code(s): M86.461 - Chronic osteomyelitis with draining sinus, right tibia and fibula (6) Hypothyroid Hypothyroidism type: acquired Qualified Code(s): E03.9 - Hypothyroidism, unspecified (7) Open wound of knee Encounter type: subsequent encounter Laterality: right Qualified Code(s): S81.001D - Unspecified open wound, right knee, subsequent encounter (8) UTI (urinary tract infection) Urinary tract infection type: acute cystitis Hematuria presence: without hematuria Qualified Code(s): N30.00 - Acute cystitis without hematuria
[2018-07-20] MEDS: METFORMIN HCL 500 MG TAB PO SCH (20:51)
[2018-07-20] MEDS: MONTELUKAST SODIUM 10 MG TABLET PO SCH (20:52)
[2018-07-21] MEDS: HYDROCODONE/ACETAMINOPHEN 7.5/325MG TAB PO PRN ×3 (05:29→21:31)
[2018-07-21] MEDS: LEVOTHYROXINE SODIUM 88 MCG TABLET PO SCH (05:29)
[2018-07-21] MEDS: INSULIN ASPART 100 UNITS/ML 3 ML PEN SC SCH ×4 (09:08→21:33)
[2018-07-21] MEDS: SULFAMETHOXAZOLE/TRIMETHOPRIM DS 800/160MG TAB PO SCH ×2 (09:08→19:58)
[2018-07-21] MEDS: METFORMIN HCL 500 MG TAB PO SCH ×2 (09:08→17:41)
[2018-07-21] MEDS: APIXABAN 5 MG TABLET PO SCH ×2 (09:09→19:58)
[2018-07-21] MEDS: AMIODARONE 200 MG TAB PO SCH (09:09)
[2018-07-21] MEDS: VENLAFAXINE HCL XR 150 MG CAPXR PO SCH (09:09)
[2018-07-21] MEDS: ATORVASTATIN 40 MG TAB PO SCH (09:09)
[2018-07-21] MEDS: METOPROLOL SUCC 25MG EXT REL TAB PO SCH (09:09)
[2018-07-21] MEDS: MAGNESIUM OXIDE 400 MG TAB PO SCH ×2 (09:09→19:59)
--- NOTE | 2018-07-21 15:00 | Communication Note ---
Date of Service: July 21, 2018 Spoke with psychiatric liaison nurse regarding patient's level of anxiety related to placement and discharge plans. Pt requested medication to assist with anxiety. Could consider use of hydroxyzine 25mg prn anxiety - preferably limited to acute episodic anxiety related to hospital stressors. Interaction between hydroxyzine and amiodarone with risk of QTc prolongation. If using routinely, would recommend EKG. Would ideally limit use of the medication to the remainder of her stay.
--- NOTE | 2018-07-21 18:47 | Hospitalist Progress Note ---
Date of Service July 21, 2018 Assessment & Plan (1) Ileus: Patient continues to do well without any evidence of small bowel obstruction or ileus Previous CT scan there was evidence of a small right basilar pleural effusion with right basilar atelectatic change. Hepatic appearance suggesting developing hepatic cirrhosis with a trace amount of abdominal and to a lesser extent pelvic ascites. (2) Severe anemia: Seems to be stable acute/chronic Iron deficiency anemia with baseline hgb 9. s/p 2 units PRBCs earlier this admission. decompensated hypothyroidism could also be contributing to anemia. b12/folate wnl. EGD/Colonoscopy on 07/12/18 without any abnormalities (by Dr Coyle). duodenal biopsies negative for celiac. outpatient capsule endoscopy if anemia remains persistent? defer to GI. s/p venofer x 3 this admission. ferritin this am in the 300s. no further venofer infusions. (3) Pyogenic granuloma: Has had amputation of her left great toe with possible septic arthritis and/or osteomyelitis. s/p amputation of first/2nd toes by Dr Guzman, ok to WBAT with surgical shoe in place. IV antibiotics STOPPED by ID. Pain control continues to be good with less phantom pain daily (4) Diabetes: hemoglobin A1c normal at 5.5% controlled, did reinstitute her metformin 07/20 (5) Hypertension: Controlled with Toprol-XL dose changed to 75 mg daily (6) Asthma: Remains stable on Flovent, Singulair No exacerbation at this time (7) Anxiety: Psych consult appreciated Transition to Effexor xr using ativan prn (8) Depression: Psych consult appreciated see above in "anxiety" (9) Osteomyelitis: Chronic in the right knee cont bactrim prophylaxis s/p amputation of LEFT first and 2nd toes for possible osteomyelitis -- (10) Paroxysmal a-fib: Continue home amiodarone, Toprol-XL Xarelto was held due to anemia Since H/H have been stable for multiple days placed back on anticoagulation Instead of using xarelto previous physician has opted for eliquis 5mg BID (easier to stop than xarelto given its shorter 1/2 life if there is GI bleeding) (11) Hypothyroid: Decompensated at time of admission. Increased levothyroxine to 88 mcg early in this stay. repeat TSH in 4 weeks post-discharge. (12) Alcohol use: no signs of withdrawal during this admission stop any IV/PO ativan due to sleepiness (13) VALERIE (obstructive sleep apnea): Continue nocturnal O2 noncompliant with CPAP in the past (14) Open wound of knee: CHRONIC. RIGHT proximal tibial region. wound care with Aquacel AG and Optifoam. bactrim prophylaxis resumed several days ago. (15) UTI (urinary tract infection): 2nd E. coli. completed long course of cefepime earlier this admission. (16) Morbid obesity with BMI of 45.0-49.9, adult: BMI 46 (17) DVT prophylaxis: vazquezquis Patient has been denied acute rehab by insurance will now seek subacute rehab (18) Hyponatremia: Baseline is around 133-135 Nephrology consulted earlier this admission for severe Hyponatremia (<120) and thinks etiology was from combination of decreased EAV from acute on chronic blood loss anemia, hypothyroidism, SSRI therapy. Na continues to be normal. (19) Hypercholesteremia: statin Subjective Patient continues to feel better and is improved with her ambulation she still slightly unsteady with gait Review of Systems Review of Systems: ROS: well nourished well developed. No double vision blurry vision No problems with speech or swallowing No palpitations, chest pain or pressure Dyspnea on exertion No abdominal pain nausea vomiting diarrhea changes in appetite or weight No burning urine urine frequency or changes in color Foot pain and gait issues No skin rashes or oral lesions No unusual bruising or bleeding No focused back pain or numbness or loss of strength No changes in memory or confusion Physical Exam Physical Exam: The patient appeared well nourished and normally developed. Vital signs as documented. Head exam is unremarkable. normocephalic, atraumatic Neck is without jugular venous distension, thyromegaly, or lymphademopathy Lungs are managed bilaterally but no wheezes Cardiac exam reveals Rhythm is regular. First and second heart sounds normal. Abdominal exam reveals normal bowel sounds, no masses, no organomegaly Extremities are a dressing in place in her left foot she is a white tissue in place she is some decreased sensation to her foot likely from neuropathy Neurologic exam is A&Ox3, no focal deficits, strength is equal bilateral Psychologically seems neither anxious or depressed Skin is warm Dry except for a foot as mentioned Results & Data Vital Signs (Past 12 Hours) Vital Signs Temp Pulse Resp BP BP Pulse Ox 07/21/18 15:33 36.7 C 67 18 152/82 H 94 07/21/18 11:44 95 07/21/18 07:18 36.7 C 66 16 151/86 H 91 (1) UTI (urinary tract infection) Hematuria presence: without hematuria Urinary tract infection type: acute cystitis Qualified Code(s): N30.00 - Acute cystitis without hematuria (2) Open wound of knee Encounter type: subsequent encounter Laterality: right Qualified Code(s): S8 1.001D - Unspecified open wound, right knee, subsequent encounter (3) Diabetes Diabetes mellitus complication detail: with unspecified neuropathy Diabetes mellitus complication status: with neurologic complications Diabetes mellitus correction insulin use: without correction use Diabetes mellitus type: type 2 Qualified Code(s): E11.40 - Type 2 diabetes mellitus with diabetic neuropathy, unspecified (4) Depression Depression Type: unspecified Qualified Code(s): F32.9 - Major depressive disorder, single episode, unspecified (5) Hypothyroid Hypothyroidism type: acquired Qualified Code(s): E03.9 - Hypothyroidism, unspecified (6) Hypertension Hypertension type: essential hypertension Qualified Code(s): I10 - Essential (primary) hypertension (7) Asthma Asthma complication type: unspecified Asthma persistence: intermittent Asthma severity: mild Qualified Code(s): J45.20 - Mild intermittent asthma, uncomplicated (8) Osteomyelitis Laterality: right Osteomyelitis location: tibia Osteomyelitis type: chronic, with draining sinus Qualified Code(s): M86.461 - Chronic osteomyelitis with d raining sinus, right tibia and fibula
[2018-07-21] MEDS: MONTELUKAST SODIUM 10 MG TABLET PO SCH (19:58)
[2018-07-22] MEDS: HYDROCODONE/ACETAMINOPHEN 7.5/325MG TAB PO PRN ×2 (04:06→19:13)
[2018-07-22] MEDS: LEVOTHYROXINE SODIUM 88 MCG TABLET PO SCH (06:15)
[2018-07-22] MEDS: METFORMIN HCL 500 MG TAB PO SCH ×2 (09:03→17:59)
[2018-07-22] MEDS: MAGNESIUM OXIDE 400 MG TAB PO SCH ×2 (09:04→20:34)
[2018-07-22] MEDS: AMIODARONE 200 MG TAB PO SCH (09:04)
[2018-07-22] MEDS: ATORVASTATIN 40 MG TAB PO SCH (09:04)
[2018-07-22] MEDS: APIXABAN 5 MG TABLET PO SCH ×2 (09:04→20:30)
[2018-07-22] MEDS: METOPROLOL SUCC 25MG EXT REL TAB PO SCH (09:04)
[2018-07-22] MEDS: VENLAFAXINE HCL XR 150 MG CAPXR PO SCH (09:05)
[2018-07-22] MEDS: SULFAMETHOXAZOLE/TRIMETHOPRIM DS 800/160MG TAB PO SCH ×2 (09:08→20:28)
[2018-07-22] MEDS: INSULIN ASPART 100 UNITS/ML 3 ML PEN SC SCH ×4 (09:41→21:46)
--- NOTE | 2018-07-22 18:29 | Hospitalist Progress Note ---
Date of Service July 22, 2018 Assessment & Plan (1) Ileus: Ileus has resolved Previous CT scan there was evidence of a small right basilar pleural effusion with right basilar atelectatic change. Hepatic appearance suggesting developing hepatic cirrhosis with a trace amount of abdominal and to a lesser extent pelvic ascites. (2) Severe anemia: Remains stable acute/chronic Iron deficiency anemia with baseline hgb 9. s/p 2 units PRBCs earlier this admission. decompensated hypothyroidism could also be contributing to anemia. b12/folate wnl. EGD/Colonoscopy on 07/12/18 without any abnormalities (by Dr Coyle). duodenal biopsies negative for celiac. outpatient capsule endoscopy if anemia remains persistent? defer to GI. s/p venofer x 3 this admission. ferritin this am in the 300s. no further venofer infusions. (3) Pyogenic granuloma: Has had amputation of her left great toe with possible septic arthritis and/or osteomyelitis. s/p amputation of first/2nd toes by Dr Guzman, ok to WBAT with surgical shoe in place. IV antibiotics STOPPED by ID. Pain control continues to be good complains of phantom pain over the last 2 days (4) Diabetes: hemoglobin A1c normal at 5.5% controlled, did reinstitute her metformin 07/20 still having loose sliding scale coverage (5) Hypertension: Remains on Toprol-XL dose changed to 75 mg daily (6) Asthma: Remains stable on Flovent, Singulair No exacerbation at this time (7) Anxiety: Psych consult appreciated Transition to Effexor xr using ativan prn (8) Depression: Psych consult appreciated see above in "anxiety" (9) Osteomyelitis: Chronic in the right knee cont bactrim prophylaxis s/p amputation of LEFT first and 2nd toes for possible osteomyelitis -- (10) Paroxysmal a-fib: Continue home amiodarone, Toprol-XL Xarelto was held due to anemia Since H/H have been stable for multiple days placed back on anticoagulation Instead of using xarelto previous physician has opted for eliquis 5mg BID (easier to stop than xarelto given its shorter 1/2 life if there is GI bleeding) (11) Hypothyroid: Decompensated at time of admission. Increased levothyroxine to 88 mcg early in this stay. repeat TSH in 4 weeks post-discharge. (12) Alcohol use: no signs of withdrawal during this admission stop any IV/PO ativan due to sleepiness (13) VALERIE (obstructive sleep apnea): Continue nocturnal O2 noncompliant with CPAP in the past (14) Open wound of knee: CHRONIC. RIGHT proximal tibial region. wound care with Aquacel AG and Optifoam. bactrim prophylaxis resumed several days ago. (15) UTI (urinary tract infection): 2nd E. coli. completed long course of cefepime earlier this admission. (16) Morbid obesity with BMI of 45.0-49.9, adult: BMI 46 (17) DVT prophylaxis: sveta Patient has been denied acute rehab by insurance will now seek subacute rehab (18) Hyponatremia: Baseline is around 133-135 Nephrology consulted earlier this admission for severe Hyponatremia (<120) and thinks etiology was from combination of decreased EAV from acute on chronic blood loss anemia, hypothyroidism, SSRI therapy. Na continues to be normal. (19) Hypercholesteremia: statin Subjective She continues to do well has less foot pain is still having some minor loose bowel movements is requesting a probiotic Review of Systems Review of Systems: ROS: well nourished well developed. No double vision blurry vision No problems with speech or swallowing No palpitations, chest pain or pressure No Wheezing or breathing issues No abdominal pain nausea vomiting diarrhea changes in appetite or weight No burning urine urine frequency or changes in color Her foot is still uncomfortable but improving daily there is a bandage in place she is having challenges walking No skin rashes or oral lesions No unusual bruising or bleeding No focused back pain or numbness or loss of strength No changes in memory or confusion Physical Exam Physical Exam: The patient appeared well nourished and normally developed. Vital signs as documented. Head exam is unremarkable. normocephalic, atraumatic Neck is without jugular venous distension, thyromegaly, or lymphademopathy Lungs are clear to auscultation and percussion. Cardiac exam reveals Rhythm is regular. First and second heart sounds normal. Abdominal exam reveals normal bowel sounds, no masses, no organomegaly Neurologic exam is A&Ox3, patient has some neuropathy to her feet bilaterally, strength is equal bilateral Psychologically seems neither anxious or depressed Skin is warm Dry without bruises or lesions Results & Data Vital Signs (Past 12 Hours) Vital Signs Temp Pulse Resp BP Pulse Ox 07/22/18 15:17 36.5 C 67 18 156/86 H 94 04/18/19 07:59 36.4 C L 70 20 148/84 H 90 (1) UTI (urinary tract infection) Hematuria presence: without hematuria Urinary tract infection type: acute cystitis Qualified Code(s): N30.00 - Acute cystitis without hematuria (2) Open wound of knee Encounter type: subsequent encounter Laterality: right Qualified Code(s): S81.001D - Unspecified open wound, right knee, subsequent encounter (3) Diabetes Diabetes mellitus complication detail: with unspecified neuropathy Diabetes mellitus complication status: with neurologic complications Diabetes mellitus fci insulin use: without fci use Diabetes mellitus type: type 2 Qualified Code(s): E11.40 - Type 2 diabetes mellitus with diabetic neuropathy, unspecified (4) Depression Depression Type: unspecified Qualified Code(s): F32.9 - Major depressive disorder, single episode, unspecified (5) Hypothyroid Hypothyroidism type: acquired Qualified Code(s): E03.9 - Hypothyroidism, unspecified (6) Hypertension Hypertension type: essential hypertension Qualified Code(s): I10 - Essential (primary) hypertension (7) Asthma Asthma complication type: unspecified Asthma persistence: intermittent Asthma severity: mild Qualified Code(s): J45.20 - Mild intermittent asthma, uncomplicated (8) Osteomyelitis Laterality: right Osteomyelitis location: tibia Osteomyelitis type: chronic, with draining sinus Qualified Code(s): M86.461 - Chronic osteomyelitis with draining sinus, right tibia and fibula
[2018-07-22] MEDS: SACCHAROMYCES BOULARDII 250 MG CAP PO SCH (19:10)
[2018-07-22] MEDS: MONTELUKAST SODIUM 10 MG TABLET PO SCH (20:28)
[2018-07-22] MEDS: CHOLESTYRAMINE LIGHT 4 GM PKT PO SCH (22:19)
[2018-07-23] MEDS: HYDROCODONE/ACETAMINOPHEN 7.5/325MG TAB PO PRN ×2 (03:42→13:55)
[2018-07-23] MEDS: LEVOTHYROXINE SODIUM 88 MCG TABLET PO SCH (05:42)
[2018-07-23] MEDS: ATORVASTATIN 40 MG TAB PO SCH (08:47)
[2018-07-23] MEDS: METFORMIN HCL 500 MG TAB PO SCH ×2 (08:47→17:02)
[2018-07-23] MEDS: METOPROLOL SUCC 25MG EXT REL TAB PO SCH (08:47)
[2018-07-23] MEDS: AMIODARONE 200 MG TAB PO SCH (08:47)
[2018-07-23] MEDS: MAGNESIUM OXIDE 400 MG TAB PO SCH ×2 (08:47→20:27)
[2018-07-23] MEDS: VENLAFAXINE HCL XR 150 MG CAPXR PO SCH (08:47)
[2018-07-23] MEDS: APIXABAN 5 MG TABLET PO SCH ×2 (08:48→20:26)
[2018-07-23] MEDS: SACCHAROMYCES BOULARDII 250 MG CAP PO SCH (08:48)
[2018-07-23] MEDS: SULFAMETHOXAZOLE/TRIMETHOPRIM DS 800/160MG TAB PO SCH ×2 (08:48→20:27)
[2018-07-23] MEDS: INSULIN ASPART 100 UNITS/ML 3 ML PEN SC SCH ×4 (09:42→20:27)
[2018-07-23] MEDS: CHOLESTYRAMINE LIGHT 4 GM PKT PO SCH ×2 (10:28→20:25)
--- NOTE | 2018-07-23 17:04 | Hospitalist Progress Note ---
Date of Service July 23, 2018 Assessment & Plan (1) Ileus: Ileus has resolved Previous CT scan there was evidence of a small right basilar pleural effusion with right basilar atelectatic change. Hepatic appearance suggesting developing hepatic cirrhosis with a trace amount of abdominal and to a lesser extent pelvic ascites. (2) Severe anemia: Remains stable acute/chronic Iron deficiency anemia with baseline hgb 9. s/p 2 units PRBCs earlier this admission. decompensated hypothyroidism could also be contributing to anemia. b12/folate wnl. EGD/Colonoscopy on 07/12/18 without any abnormalities (by Dr Coyle). duodenal biopsies negative for celiac. outpatient capsule endoscopy if anemia remains persistent? defer to GI. s/p venofer x 3 this admission. ferritin this am in the 300s. no further venofer infusions. (3) Pyogenic granuloma: Has had amputation of her left great toe with possible septic arthritis and/or osteomyelitis. s/p amputation of first/2nd toes by Dr Guzman, ok to WBAT with surgical shoe in place. IV antibiotics STOPPED by ID. Pain control continues to be good complains of phantom pain over the last 2 days (4) Diabetes: hemoglobin A1c normal at 5.5% controlled, did reinstitute her metformin 07/20 still having loose sliding scale coverage (5) Hypertension: Remains on Toprol-XL dose changed to 75 mg daily (6) Asthma: Remains stable on Flovent, Singulair No exacerbation at this time (7) Anxiety: Psych consult appreciated Transition to Effexor xr using ativan prn (8) Depression: Psych consult appreciated see above in "anxiety" (9) Osteomyelitis: Chronic in the right knee cont bactrim prophylaxis s/p amputation of LEFT first and 2nd toes for possible osteomyelitis -- (10) Paroxysmal a-fib: Continue home amiodarone, Toprol-XL Xarelto was held due to anemia Since H/H have been stable for multiple days placed back on anticoagulation Instead of using xarelto previous physician has opted for eliquis 5mg BID (easier to stop than xarelto given its shorter 1/2 life if there is GI bleeding) (11) Hypothyroid: Decompensated at time of admission. Increased levothyroxine to 88 mcg early in this stay. repeat TSH in 4 weeks post-discharge. (12) Alcohol use: no signs of withdrawal during this admission stop any IV/PO ativan due to sleepiness (13) VALERIE (obstructive sleep apnea): Continue nocturnal O2 noncompliant with CPAP in the past (14) Open wound of knee: CHRONIC. RIGHT proximal tibial region. wound care with Aquacel AG and Optifoam. bactrim prophylaxis resumed several days ago. (15) UTI (urinary tract infection): 2nd E. coli. completed long course of cefepime earlier this admission. (16) Morbid obesity with BMI of 45.0-49.9, adult: BMI 46 (17) DVT prophylaxis: vazquezqueliot Patient has been denied acute rehab by insurance will now seek subacute rehab (18) Hyponatremia: Baseline is around 133-135 Nephrology consulted earlier this admission for severe Hyponatremia (<120) and thinks etiology was from combination of decreased EAV from acute on chronic blood loss anemia, hypothyroidism, SSRI therapy. Na continues to be normal. (19) Hypercholesteremia: statin Subjective Patient has no complaints or problems, planning on going home Review of Systems Review of Systems: ROS: well nourished well developed. No double vision blurry vision No problems with speech or swallowing No palpitations, chest pain or pressure No Wheezing or breathing issues No abdominal pain nausea vomiting diarrhea changes in appetite or weight No burning urine urine frequency or changes in color Persistent occasional foot pain No skin rashes or oral lesions No unusual bruising or bleeding No focused back pain or numbness or loss of strength No changes in memory or confusion Physical Exam Physical Exam: The patient appeared well nourished and normally developed. Vital signs as documented. Head exam is unremarkable. normocephalic, atraumatic Neck is without jugular venous distension, thyromegaly, or lymphademopathy Lungs are clear to auscultation and percussion. Cardiac exam reveals Rhythm is regular. First and second heart sounds normal. Abdominal exam reveals normal bowel sounds, no masses, no organomegaly Extremities are nonedematous and is to her left foot Neurologic exam is A&Ox3, peripheral neuropathy persists Skin is warm Dry without bruises or lesions Results & Data Vital Signs (Past 12 Hours) Vital Signs Temp Pulse Resp BP Pulse Ox 07/23/18 14:53 36.5 C 69 16 133/85 96 07/23/18 07:22 36.6 C 71 20 152/82 H 97 (1) UTI (urinary tract infection) Hematuria presence: without hematuria Urinary tract infection type: acute cystitis Qualified Code(s): N30.00 - Acute cystitis without hematuria (2) Open wound of knee Encounter type: subsequent encounter Laterality: right Qualified Code(s): S81.001D - Unspecified open wound, right knee, subsequent encounter (3) Diabetes Diabetes mellitus complication detail: with unspecified neuropathy Diabetes mellitus complication status: with neurologic complications Diabetes mellitus coal sampler insulin use: without jail use Diabetes mellitus type: type 2 Qualified Code(s): E11.40 - Type 2 diabetes mellitus with diabetic neuropathy, unspecified (4) Depression Depression Type: unspecified Qualified Code(s): F32.9 - Major depressive disorder, single episode, unspecified (5) Hypothyroid Hypothyroidism type: acquired Qualified Code(s): E03.9 - Hypothyroidism, unspecified (6) Hypertension Hypertension type: essential hypertension Qualified Code(s): I10 - Essential (primary) hypertension (7) Asthma Asthma complication type: unspecified Asthma persistence: intermittent Asthm a severity: mild Qualified Code(s): J45.20 - Mild intermittent asthma, uncomplicated (8) Osteomyelitis Laterality: right Osteomyelitis location: tibia Osteomyelitis type: chronic, with draining sinus Qualified Code(s): M86.461 - Chronic osteomyelitis with draining sinus, right tibia and fibula
[2018-07-23] MEDS: MONTELUKAST SODIUM 10 MG TABLET PO SCH (20:27)
[2018-07-24] MEDS: HYDROCODONE/ACETAMINOPHEN 7.5/325MG TAB PO PRN ×2 (01:04→11:56)
[2018-07-24] MEDS: LEVOTHYROXINE SODIUM 88 MCG TABLET PO SCH (06:23)
[2018-07-24] MEDS: METFORMIN HCL 500 MG TAB PO SCH (08:11)
[2018-07-24] MEDS: INSULIN ASPART 100 UNITS/ML 3 ML PEN SC SCH ×2 (08:25→11:30)
[2018-07-24] MEDS: AMIODARONE 200 MG TAB PO SCH (09:54)
[2018-07-24] MEDS: VENLAFAXINE HCL XR 150 MG CAPXR PO SCH (09:54)
[2018-07-24] MEDS: APIXABAN 5 MG TABLET PO SCH (09:55)
[2018-07-24] MEDS: ATORVASTATIN 40 MG TAB PO SCH (09:55)
[2018-07-24] MEDS: SACCHAROMYCES BOULARDII 250 MG CAP PO SCH (09:55)
[2018-07-24] MEDS: MAGNESIUM OXIDE 400 MG TAB PO SCH (09:56)
[2018-07-24] MEDS: SULFAMETHOXAZOLE/TRIMETHOPRIM DS 800/160MG TAB PO SCH (09:56)
[2018-07-24] MEDS: METOPROLOL SUCC 25MG EXT REL TAB PO SCH (09:56)
[2018-07-24] MEDS: CHOLESTYRAMINE LIGHT 4 GM PKT PO SCH (11:58)
--- NOTE | 2018-07-24 16:08 | Discharge Summary ---
Date of Service July 24, 2018 Admission HPI Per Admitting Provider The patient is a 58-year-old woman who lives alone, with the below listed multiple medical conditions, who was referred to the ED due to anemia found on labs through her PCPs office. She has been undergoing workup, yesterday having had a colonoscopy which was negative for acute bleeding. She also has diabetes, multiple consequences of that including a left lower extremity wound and is seen at the wound clinic. During the course of her hospitalization, the patient has appeared quite anxious, frequently tearful resulting in this consult. We attempted to see the patient each of the last 2 days but she declined due to not feeling up to it. Today she is visiting with her sister and willing for a conversation. She would like her sister to stay while we chat. She is seated in the bedside chair. She admits that she has been feeling depressed and anxious. This is been long-standing but getting worse since she has become more immobile. She has not driven herself since the fall when she last fell and rare ly leaves the house except to go to work at the [employer] and to get her groceries. Her sister comments that she is "[place] phobic" meaning that she rarely leaves her own home. The patient describes it as "crippling anxiety" that makes her sick to the point of vomiting. She relies on assistance from friends to be driven to and from work and she gets extremely anxious about getting over the curb and into the car during these trips. Every morning she vomits that she thinks about it. She also admits to indulging in alcohol more and more frequently as a coping strategy for her anxiety. She admits that when she gets home from work she starts mixing drinks and will go through for 5 throughout the evening before 10 PM she says it helps her to feel less anxious describing it as "numb". She has a lot of pain in her left knee status post knee replacement which also causes her discomfort and impairs her gait. She lives in a two-story home, does not feel she can get up the stairs due to her concern for falling which she has done several times, and so therefore lives on the first floor where there is not a bathroom. She relies on a bedside commode and diapers and those things are dealt with the following day with the assistance of a friend. She has been looking into changing apartments to either something with one floor living or something that would be in a [employer] so that she would be around other people, but she makes too much in her job to afford those and cannot afford to stop working because within the next year she will be vested enough to have her insurance paid for in care home. She has considered going on disability due to her impairments and is not sure how to go about this or how this would impact her income and ability to get a new apartment. She feels that she is overwhelmed with all that she has to consider and finds herself waking every night with a panic attack. She admits to having some suicidal thinking more a passive wish than anything. She has also been stressed because they have lost 2 siblings in the last year to cancer. This has made her medical workup although more frightening for her as one brother from colon cancer and a second sister also from cancer. Each test she has she fears that it will reveal some form of cancer. She denies ever having had any auditory or visual Principal Diagnosis anemia diabetic foot infection amputation of left first two toes Discharge Exam Constitutional well developed and average body habitus Eyes no conjunctival abnormality and no scleral abnormality Neck normal visual inspection and trachea midline Respiratory normal respiratory effort; no respiratory distress Auscultation: lungs clear to auscultation bilaterally Cardiovascular RRR, no murmur, no edema Gastrointestinal (Abdomen) normal bowel sounds, soft, nontender, no hepatosplenomegaly Discharge Data Allergies Allergy/AdvReac Type Severity Reaction Status Date / Time Penicillins Allergy Unknown UNKNOWN Verified 07/09/18 16:37 Consultations 07/09/18 17:17 ED Decision to Admit Stat 07/10/18 08:25 Consult Nephrology Routine 07/10/18 13:09 Consult Gastroenterology Routine 07/11/18 10:58 Consult Psychiatry Routine 07/12/18 08:46 Consult Orthopedic Surgery Routine 07/12/18 08:49 Consult Infectious Diseases Routine 07/18/18 19:48 Consult Gastroenterology Routine Procedures Performed Operation Date: 07/12/18 09:10 Actual Procedures p EGD Biopsy Cytology - Rohan barrera Colonoscopy - Rohan Coyle Operation Date: 07/14/18 15:00 Actual Procedures p Left 1st and 2nd Toe Amputation(Left) - Hal Guzman MD Ordered Studies 07/18/18 19:54 CT abd pelvis oral and IV con Routine Hospital Course (1) Ileus: Ileus has resolved Previous CT scan there was evidence of a small right basilar pleural effusion with right basilar atelectatic change. Hepatic appearance suggesting developing hepatic cirrhosis with a trace amount of abdominal and to a lesser extent pelvic ascites. (2) Severe anemia: Remains stable acute/chronic Iron deficiency anemia with baseline hgb 9. s/p 2 units PRBCs earlier this admission. decompensated hypothyroidism could also be contributing to anemia. b12/folate wnl. EGD/Colonoscopy on 07/12/18 without any abnormalities (by Dr Coyle). duodenal biopsies negative for celiac. outpatient capsule endoscopy if anemia remains persistent? defer to GI. s/p venofer x 3 this admission. ferritin this am in the 300s. no further venofer infusions. (3) Pyogenic granuloma: Has had amputation of her left great toe with possible septic arthritis and/or osteomyelitis. s/p amputation of first/2nd toes by Dr Guzman, ok to WBAT with surgical shoe in place. IV antibiotics STOPPED by ID. Pain control continues to be good complains of phantom pain over the last 2 days (4) Diabetes: hemoglobin A1c normal at 5.5% controlled, did reinstitute her metformin 07/20 still having loose sliding scale coverage (5) Hypertension: Remains on Toprol-XL dose changed to 75 mg daily (6) Asthma: Remains stable on Flovent, Singulair No exacerbation at this time (7) Anxiety: Psych consult appreciated Transition to Effexor xr using ativan prn (8) Depression: Psych consult appreciated see above in "anxiety" (9) Osteomyelitis: Chronic in the right knee cont bactrim prophylaxis s/p amputation of LEFT first and 2nd toes for possible osteomyelitis -- (10) Paroxysmal a-fib: Continue home amiodarone, Toprol-XL Xarelto was held due to anemia Since H/H have been stable for multiple days placed back on anticoagulation Instead of using xarelto previous physician has opted for eliquis 5mg BID (easier to stop than xarelto given its shorter 1/2 life if there is GI bleeding) (11) Hypothyroid: Decompensated at time of admission. repeat TSH in 4 weeks post-discharge. (12) Alcohol use: no signs of withdrawal during this admission stop any IV/PO ativan due to sleepiness (13) VALERIE (obstructive sleep apnea): Continue nocturnal O2 noncompliant with CPAP in the past (14) Open wound of knee: CHRONIC. RIGHT proximal tibial region. wound care with Aquacel AG and Optifoam. bactrim prophylaxis resumed (15) UTI (urinary tract infection): 2nd E. coli. completed long course of cefepime earlier this admission. (16) Morbid obesity with BMI of 45.0-49.9, adult: BMI 46 (17) DVT prophylaxis: eliquis (18) Hyponatremia: Baseline is around 133-135 Nephrology consulted earlier this admission for severe Hyponatremia (<120) and thinks etiology was from combination of decreased EAV from acute on chronic blood loss anemia, hypothyroidism, SSRI therapy. Na continues to be normal. (19) Hypercholesteremia: statin Total Time Total Time Spent Total Time Spent (In Minutes): greater than 30 minutes were required to prepare discharge Discharge Plan Discharge Items Patient Disposition: Home - Home Health Services Reason For Visit: ANEMIA Discharge Diagnosis: anemia foot infection with surgery Discharge Goals: Decrease discomfort, Diagnostic testing and Improve disease control Activity: As commented below Activity Comment: as per physical therapy Non-emergency contact: Primary Care Provider and Surgeon Call non-emergency contact if: you have any medication questions Follow-up/Referrals: Parveen Fishman MD [Primary Care Provider] - 07/28/18 11:30 am (Please, follow up at Dr. Fishman's office with his associate, Marcia WOLF, on ThursdayJuly 28 at 11:30 am. *If you need to change this appointment, call their office at [phone].) Hal Guzman MD [Surgeon] - 07/30/18 12:50 pm (Please, follow up at [facility] with Dr. Hal Guzman on ThursdayJuly 30 at 12:50 pm. *This office is located at [address] [facility]. If you need to change this appointment, call the office at [phone].) Diet: Carb Consistent or DM2 Addtl Provider Instructions: keep foot clean and dry be sure to elevate when resting follow up with surgeon Prescriptions: New venlafaxine 150 mg Capsule,Extended Release 24hr 150 mg PO QAM Qty: 30 RF: 4 Eliquis 5 mg Tablet 5 mg PO BID Qty: 60 RF: 4 hydrocodone-acetaminophen [[place]] 7.5-325 mg Tablet 1 tab PO Q6H PRN (Reason: pain) Qty: 20 RF: 0 sulfamethoxazole-trimethoprim [Bactrim DS] 800-160 mg tablet 1 tab PO BID Qty: 60 RF: 2 Continued acetaminophen 325 mg capsule 650 mg PO Q6H PRN (Reason: Pain) RF: 0 amiodarone 200 mg tablet 200 mg PO DAILY RF: 0 atorvastatin 40 mg tablet 40 mg PO DAILY RF: 0 cholecalciferol (vitamin D3) 1,000 unit capsule 1,000 units PO DAILY RF: 0 cyanocobalamin (vitamin B-12) 1,000 mcg capsule 1,000 mcg PO DAILY RF: 0 fluticasone propionate 250 mcg/actuation blister with device 1 inha INH DAILY RF: 0 magnesium oxide 400 mg capsule 400 mg PO BID RF: 0 metformin 1,000 mg tablet 1,000 mg PO BID RF: 0 metoprolol succinate 50 mg tablet extended release 24 hr 75 mg PO DAILY RF: 0 montelukast 10 mg tablet 10 mg PO QPM RF: 0 Changed levothyroxine 75 mcg tablet 88 mcg PO DAILY Qty: 30 RF: 4 Discontinued bupropion HCl 150 mg tablet extended release 24 hr 150 mg PO QAM RF: 0 escitalopram oxalate 20 mg tablet 20 mg PO DAILY RF: 0 rivaroxaban 20 mg tablet 20 mg PO DAILY RF: 0 naproxen sodium [Aleve] 220 mg Tablet 440 mg PO DAILY PRN (Reason: pain) RF: 0 Stand-Alone Forms: [facility] Discharge Orders: Discharge Order (Routine); Ordered 07/24/18 Ordered By: Blair Rivas Admission Data Admit Date/Time: 07/09/18 19:31 Attending Provider: Blair Rivas Admit Provider: Anne Giles Primary Care Provider: Parveen Fishman Other Providers: Anne Giles ; Zac Mccullough ; Margot Park James S. ; Yg Cyr ; Rohan Coyle ; Carlos Cárdenas Service: Medical Other Interventions: Discharge Summary Assessment (RN) Last Done: 07/24/18 12:06 DC Date/Time DO NOT enter until pt leaves facility: 07/24/18 13:00
== END 2018-07-24 13:00 | disposition home health service (06) | DRG 982 ==
LOC: ED 15:27 → SUATTDRO 19:31 → 2S 19:31 → 4E 07-11 13:08

== ENCOUNTER 2019-08-02 10:13 | Inpatient (IN) ==
[2019-08-02] MEDS ORDERED: SODIUM CHLORIDE 0.9% 500 ML IV SCH (10:30)
--- NOTE | 2019-08-02 10:36 | Emergency Department Note ---
History of Present Illness General Chief Complaint: Tachycardia Time Seen by Provider: 08/02/19 10:17 Source: patient Mode of arrival: EMS Limitations: no limitations History of Present Illness Provider Complaint: + rapid heart beat and + atrial fibrillation Duration: + Constant Severity: moderate Current Pain Intensity: 0 Context: + occurred during rest Arrhythmia history: + atrial fibrillation Associated symptoms: + denies other symptoms Treatments prior to arrival: + none HPI narrative: This is a 59-year-old female who presents to the ED from the [facility]. The patient went to the wound care center this morning to have a leg wound check. The wound is healing fine. The patient states that she did not take her morning medications including her Lopressor this morning. She states that she had planned on taking it after she got home. While she was at the appointment, they noticed that her heart rate was 166 and her blood pressure was elevated. The patient has a history of atrial fibrillation. She is on Eliquis. She states that she has intermittent A. fib. The patient has no other symptoms. Denies any chest pains or shortness of breath. She has not had fevers or recent illness. Denies any lightheadedness or dizziness. EMS contacted me for medical command. They felt that the patient might be anxious. They gave her Ativan IV as well as Zofran IV for her symptoms. She continues to be an A. fib with RVR. Home Medications Home Medications Medication Instructions Recorded Confirmed Type cholecalciferol (vitamin D3) 25 1,000 units PO DAILY 12/24/17 08/02/19 History mcg (1,000 unit) capsule cyanocobalamin (vitamin B-12) 1,000 mcg PO DAILY 12/24/17 08/02/19 History 1,000 mcg capsule ibuprofen 200 mg tablet 200 mg PO Q6H PRN 09/28/18 08/02/19 History magnesium oxide 400 mg PO TID cap 09/28/18 08/02/19 History albuterol sulfate 90 mcg/actuation 2 puffs INHALATION Q4H PRN #1 gm 12/01/18 08/02/19 History aerosol inhaler blood sugar diagnostic #10 ea 12/01/18 08/02/19 History lancets 28 gauge #25 ea 12/01/18 08/02/19 History ondansetron 4 mg disintegrating 4 mg PO Q8H PRN #90 tab 12/01/18 08/02/19 History tablet apixaban 5 mg tablet 5 mg PO BID #180 tab 02/09/19 08/02/19 Rx buspirone 10 mg tablet 10 mg PO BID #60 tab 03/14/19 08/02/19 Rx montelukast 10 mg tablet 10 mg PO QPM #7 tab 04/13/19 08/02/19 Rx venlafaxine 150 mg 150 mg PO QAM #30 cap 06/15/19 08/02/19 Rx capsule,extended release 24 hr metformin 1,000 mg tablet 1,000 mg PO BID #180 tab 07/18/19 08/02/19 Rx atorvastatin 40 mg PO QPM 08/02/19 08/02/19 History hydrochlorothiazide 12.5 mg PO QAM 08/02/19 08/02/19 History levothyroxine 100 mcg PO QAM 08/02/19 08/02/19 History metoprolol succinate 75 mg PO QAM 08/02/19 08/02/19 History sulfamethoxazole 800 1 tab PO BID #60 tab 08/02/19 08/02/19 Rx mg-trimethoprim 160 mg tablet Allergies Allergy/AdvReac Type Severity Reaction Status Date / Time Penicillins Allergy Unknown UNKNOWN Verified 08/02/19 11:08 bacitracin Allergy Verified 08/02/19 11:08 [From Neosporin ([id number])] neomycin Allergy Verified 08/02/19 11:08 [From Neosporin ([id number])] polymyxin B Allergy Verified 08/02/19 11:08 [From Neosporin ([id number])] Past Med/Surg History Medical History Acquired claw toe of left foot (Acute) Acquired hallux valgus of right foot (Acute) Acquired hammer toe of right foot (Acute) Acute renal failure Anxiety (Chronic) Arterial hemorrhage (Acute) Asthma (Chronic) Cellulitis of third toe, left (Resolved) Depression (Chronic) Diabetes (Chronic) Diabetes mellitus with diabetic polyneuropathy (Acute) Diabetic foot infection (Resolved 08/25/13) History of amputation of left great toe (Acute) History of amputation of toe Hypercholesteremia (Chronic) Hypertension (Chronic) Morbid obesity Paroxysmal a-fib (Resolved) Patellar fracture Surgical History History of amputation of lesser toe of left foot (Acute) History of amputation of lesser toe of right foot (Acute) History of esophagogastroduodenoscopy (EGD) History of right knee surgery Family History Sister Breast cancer Father Diabetes Hypertension Other Family history non-contributory Heart disease Social History Preferred Language: Ethiopian Communication Ability: Effective [place]scre[place] Man Required: No Beliefs That Will Affect Care: None marital status: Single Current Living Situation: Alone Feels Safe at Home: Yes Smoking Status: Former smoker Number of Years Since Quit: 5 ; Hx Alcohol Use: Yes Alcohol type: hard liquor Hx Substance Use: No Review of Systems A total of 10 systems reviewed and were otherwise negative Physical Exam Vital Signs: Vital Signs - 24 hr 08/02/19 10:09 08/02/19 10:20 08/02/19 10:21 Temperature 36.8 C Temperature Source Oral Pulse Rate 144 H 148 H 142 H Pulse Rate [Apical ] Pulse Rate from Sp O2 Sensor 136 H 134 H Respiratory Rate 16 16 21 Respiratory Effort / Characteristics Blood Pressure 140/100 140/100 Blood Pressure [Ri ght Arm] Blood Pressure Dimple n 113 104 Blood Pressure Dimple n [Right Arm] Blood Pressure Pos ition [Right Arm] Pulse Oximetry 95 95 94 Oxygen Delivery Me thod Room Air Sepsis Recent Feve r Within 48 Hours No Sepsis New/Unexpla ined Change in Men nathan Status No Sepsis Action Take n by Nursing No Action Required 08/02/19 10:30 08/02/19 10:40 08/02/19 10:43 Temperature Temperature Source Pulse Rate 134 H 139 H 139 H Pulse Rate [Apical ] Pulse Rate from Sp O2 Sensor 138 H 148 H 142 H Respiratory Rate 20 16 18 Respiratory Effort / Characteristics Blood Pressure 118/105 H Blood Pressure [Ri ght Arm] Blood Pressure Dimple n 110 Blood Pressure Dimple n [Right Arm] Blood Pressure Pos ition [Right Arm] Pulse Oximetry 96 93 95 Oxygen Delivery Me thod Sepsis Recent Feve r Within 48 Hours Sepsis New/Unexpla ined Change in Men nathan Status Sepsis Action Take n by Nursing 08/02/19 10:45 08/02/19 10:50 08/02/19 10:59 Temperature Temperature Source Pulse Rate 132 H 141 H Pulse Rate [Apical ] 142 H Pulse Rate from Sp O2 Sensor 139 H 134 H Respiratory Rate 16 20 30 H Respiratory Effort / Characteristics Blood Pressure Blood Pressure [Ri ght Arm] 118/105 H Blood Pressure Dimple n 85 Blood Pressure Dimple n [Right Arm] 109 Blood Pressure Pos ition [Right Arm] Pulse Oximetry 95 91 95 Oxygen Delivery Me thod Room Air Sepsis Recent Feve r Within 48 Hours Sepsis New/Unexpla ined Change in Men nathan Status Sepsis Action Take n by Nursing 08/02/19 11:00 08/02/19 11:01 08/02/19 11:02 Temperature Temperature Source Pulse Rate 141 H 137 H 143 H Pulse Rate [Apical ] Pulse Rate from Sp O2 Sensor 124 H 134 H Respiratory Rate 21 17 Respiratory Effort / Characteristics Blood Pressure 131/98 131/98 Blood Pressure [Ri ght Arm] Blood Pressure Dimple n 120 Blood Pressure Dimple n [Right Arm] Blood Pressure Pos ition [Right Arm] Pulse Oximetry 95 95 Oxygen Delivery Me thod Sepsis Recent Feve r Within 48 Hours Sepsis New/Unexpla ined Change in Men nathan Status Sepsis Action Take n by Nursing 08/02/19 11:10 08/02/19 11:11 08/02/19 11:12 Temperature Temperature Source Pulse Rate 130 H 136 H 134 H Pulse Rate [Apical ] 134 H Pulse Rate from Sp O2 Sensor 144 H 114 H Respiratory Rate 17 16 Respiratory Effort / Characteristics Spontaneous Blood Pressure 135/110 H 135/110 H Blood Pressure [Ri ght Arm] 135/110 H Blood Pressure Dimple n 118 Blood Pressure Dimple n [Right Arm] 118 Blood Pressure Pos ition [Right Arm] Lying Pulse Oximetry 91 86 L Oxygen Delivery Me thod Room Air Sepsis Recent Feve r Within 48 Hours Sepsis New/Unexpla ined Change in Men nathan Status Sepsis Action Take n by Nursing 08/02/19 11:14 08/02/19 11:15 08/02/19 11:18 Temperature Temperature Source Pulse Rate 122 H 112 H Pulse Rate [Apical ] Pulse Rate from Sp O2 Sensor 113 H 104 H Respiratory Rate 27 H 23 Respiratory Effort / Characteristics Blood Pressure 135/96 149/123 H Blood Pressure [Ri ght Arm] Blood Pressure Dimple n 99 133 Blood Pressure Dimple n [Right Arm] Blood Pressure Pos ition [Right Arm] Pulse Oximetry 95 93 90 Oxygen Delivery Me thod Room Air Sepsis Recent Feve r Within 48 Hours Sepsis New/Unexpla ined Change in Men nathan Status Sepsis Action Take n by Nursing 08/02/19 11:19 08/02/19 11:20 08/02/19 11:30 Temperature Temperature Source Pulse Rate 117 H 135 H 118 H Pulse Rate [Apical ] 117 H Pulse Rate from Sp O2 Sensor Respiratory Rate 20 19 21 Respiratory Effort / Characteristics Blood Pressure 149/123 H 166/129 H Blood Pressure [Ri ght Arm] 149/123 H Blood Pressure Dimple n 144 Blood Pressure Dimple n [Right Arm] 131 Blood Pressure Pos ition [Right Arm] Pulse Oximetry 93 Oxygen Delivery Me thod Room Air Sepsis Recent Feve r Within 48 Hours Sepsis New/Unexpla ined Change in Men nathan Status Sepsis Action Take n by Nursing 08/02/19 11:31 08/02/19 11:32 08/02/19 11:40 Temperature Temperature Source Pulse Rate 128 H 118 H 121 H Pulse Rate [Apical ] 125 H Pulse Rate from Sp O2 Sensor Respiratory Rate 21 22 23 Respiratory Effort / Characteristics Spontaneous Blood Pressure 145/124 H Blood Pressure [Ri ght Arm] 145/124 H Blood Pressure Dimple n 129 Blood Pressure Dimple n [Right Arm] 131 Blood Pressure Pos ition [Right Arm] Lying Pulse Oximetry 92 Oxygen Delivery Me thod Room Air Sepsis Recent Feve r Within 48 Hours Sepsis New/Unexpla ined Change in Men nathan Status Sepsis Action Take n by Nursing 08/02/19 12:04 08/02/19 12:33 08/02/19 13:05 Temperature Temperature Source Pulse Rate Pulse Rate [Apical ] 132 H 126 H 108 H Pulse Rate from Sp O2 Sensor Respiratory Rate 18 16 16 Respiratory Effort / Characteristics Spontaneous Blood Pressure Blood Pressure [Ri ght Arm] 173/146 H 193/143 H 123/82 Blood Pressure Dimple n Blood Pressure Dimple n [Right Arm] 155 159 95 Blood Pressure Pos ition [Right Arm] Lying Pulse Oximetry 92 94 94 Oxygen Delivery Me thod Room Air Room Air Room Air Sepsis Recent Feve r Within 48 Hours Sepsis New/Unexpla ined Change in Men nathan Status Sepsis Action Take n by Nursing Physical Exam: CONSTITUTIONAL/VITAL SIGNS: Reviewed / noted above. GENERAL: Non-toxic in appearance. INTEGUMENTARY: Warm, dry, and [place]. HEAD: Normocephalic. EYES: without scleral icterus or trauma. ENT/OROPHARYNX: clear and moist. LYMPHADENOPATHY/NECK: Is supple without lymphadenopathy or meningismus. RESPIRATORY: Lungs clear and equal. CARDIOVASCULAR: Rapid rate and irregular rhythm. GI/ABDOMEN: Soft and nontender. No organomegaly or pulsatile mass. No rebound or guarding. Normal bowel sounds. EXTREMITIES: Warm and well perfused. BACK: No CVA tenderness. NEUROLOGICAL: Intact without focal deficits. PSYCHIATRIC: normal affect. MUSCULOSKELETAL: Normally developed with good muscle tone. TRIAGE NURSING DOCUMENTATION REVIEWED. Course Administered Medications Metoprolol Tartrate (Lopressor) 5 mg IV Q5M PRN PRN Reason: Tachycardia Stop: 09/01/19 10:25 Last Admin: 08/02/19 11:19 Dose: 5 mg Documented by: [id number] Admin: 08/02/19 11:12 Dose: 5 mg Documented by: [id number] Admin: 08/02/19 11:02 Dose: 5 mg Documented by: [id number] Discontinued Medications Diltiazem HCl (Cardizem) 20 mg IV NOW STA Stop: 08/02/19 12:26 Last Admin: 08/02/19 12:32 Dose: 20 mg Documented by: [id number] Cosigned by: [id number] Sodium Chloride (Nss) 500 mls @ 999 mls/hr IV .Q31M BRIANDA Stop: 08/02/19 11:00 Last Infusion: 08/02/19 11:34 Dose: 0 mls/hr Documented by: [id number] Admin: 08/02/19 11:02 Dose: 999 mls/hr Documented by: [id number] Medical Decision Making Differential Diagnosis + palpitations, + anxiety, + artial fibrillation, + artial flutter, + supr aventricular tachycardia, + ventricular tachycardia, + WPW, + cardiac ectopy, + cardiac dysrhythmia, + ACS and + infection Medical Records Attestation: I reviewed the patient's medical records. Home Medications Current Medication List: was personally reviewed by me Laboratory Data Attestation: I reviewed the patient's lab results. Result diagrams: 08/02/19 10:29 08/02/19 10:29 Lab Results 08/02/19 08/02/19 08/02/19 Range/Units 10:29 10: 10:29 WBC 8.02 (4.8-10.8) K/uL RBC 3.62 L (4.2-5.4) M/uL Hgb 11.7 L (12.0-16.0) g/dL Hct 36.0 L (37-47) % MCV 99.4 (80-100) fL MCH 32.3 (25-34) pg MCHC 32.5 (32-36) g/dL RDW Std Deviation 51.6 H (36.4-46.3) fL RDW Coeff of Yazmin 14.3 (11.5-14.5) % Plt Count 231 (130-400) K/uL MPV 10.2 (7.4-10.4) fL Immature Gran % (Auto) 0.6 % Neut % (Auto) 74.2 % Lymph % (Auto) 14.8 % [place] % (Auto) 5.1 % Eos % (Auto) 5.1 % Baso % (Auto) 0.2 % Immature Gran # (Auto) 0.05 H (0.00-0.02) K/uL Neut # (Auto) 5.94 (1.4-6.5) K/uL Lymph # (Auto) 1.19 L (1.2-3.4) K/uL [place] # (Auto) 0.41 (0.11-0.59) K/uL Eos # (Auto) 0.41 (0-0.5) K/uL Baso # (Auto) 0.02 (0-0.2) K/uL PT 10.9 (9.0-12.0) Seconds INR 1.0 (0.9-1.1) APTT 28.6 (21.0-31.0) Seconds PTT Ratio 1.0 Sodium 133 L (136-145) mmol/L Potassium 4.3 (3.5-5.1) mmol/L Chloride 98 (98-107) mmol/L Carbon Dioxide 25 (21-32) mmol/L Anion Gap 10.0 (3-11) BUN 9 (7-18) mg/dl Creatinine 0.72 (0.6-1.2) mg/dl Est Cr Clr Drug Dosing 108.1 ml/min Est GFR ( Amer) 107.7 Est GFR (Non-Af Amer) 93.0 BUN/Creatinine Ratio 12.8 (10-20) Glucose 110 H (70-99) mg/dl Calcium 9.1 (8.5-10.1) mg/dl Magnesium 1.7 L (1.8-2.4) mg/dl Total Bilirubin 0.4 (0.2-1) mg/dl AST 20 (15-37) U/L ALT 21 (12-78) U/L Alkaline Phosphatase 118 H (45-117) U/L Troponin I < 0.015 (0-0.045) ng/ml Total Protein 7.1 (6.4-8.2) gm/dl Albumin 3.7 (3.4-5.0) gm/dl Globulin 3.4 (2.5-4.0) gm/dl Albumin/Globulin Ratio 1.1 (0.9-2) TSH 2.490 (0.300-4.500) uIu/ml ECG Data Attestation: I personally reviewed and interpreted this ECG as follows: Indication: palpitations Rate (beats per minute): 143 Rhythm: atrial fibrillation Findings: no PVC and no ST elevation Blood Pressure Blood Pressure Findings: Elevated blood pressure Blood Pressure Disposition: elevated BP felt to be situational MDM Narrative This is a 59-year-old female who presents to the ED from the wound care center. The patient went to the wound care center this morning to have a leg wound check. The wound is healing fine. The patient states that she did not take her morning medications including her Lopressor this morning. She states that she had planned on taking it after she got home. While she was at the appointment, they noticed that her heart rate was 166 and her blood pressure was elevated. The patient has a history of atrial fibrillation. She is on Eliquis. She states that she has intermittent A. fib. The patient has no other symptoms. Denies any chest pains or shortness of breath. She has not had fevers or recent illness. Denies any lightheadedness or dizziness. EMS contacted me for medical command. They felt that the patient might be anxious. They gave her Ativan IV as well as Zofran IV for her symptoms. She continues to be an A. fib with RVR. The patient's exam reveals rapid A. fib. Initial EKG showed an A. fib with RVR at a rate of 143. The patient CBC and chemistry panel was unremarkable as is the troponin. TSH was also normal. Chest x-ray revealed some mild pulmonary edema. The patient was given 15 mg of IV Lopressor. Her heart rate only went down to the 130s. She was then given an IV dose of Cardizem 20 mg. Her heart rate came down into the 90s and her blood pressure improved as well. The patient will be seen by the hospitalist for further inpatient evaluation and c are. My concern is that the patient did not respond to the 15 mg of IV Lopressor and therefore her heart rate may have continued to stay elevated despite taking her oral Lopressor. She does not seem to be aware (symptomatically) that her heart rate was in the 140s to 160s earlier. Impression & Plan Atrial fibrillation with RVR, Atrial fibrillation Discharge Plan Visit Data Chief Complaint: Tachycardia ED Provider: Sushil King Discharge Problem: Atrial fibrillation with RVR, Atrial fibrillation Forms Stand Alone Forms: [facility] Prescriptions Prescriptions: No Action cholecalciferol (vitamin D3) 1,000 unit capsule 1,000 units PO DAILY RF: 0 cyanocobalamin (vitamin B-12) 1,000 mcg capsule 1,000 mcg PO DAILY RF: 0 magnesium oxide 400 mg magnesium capsule 400 mg PO TID RF: 0 Eliquis 5 mg tablet 5 mg PO BID Qty: 180 RF: 3 buspirone 10 mg tablet 10 mg PO BID Qty: 60 RF: 5 montelukast 10 mg tablet 10 mg PO QPM Qty: 7 RF: 0 venlafaxine 150 mg capsule,extended release 24hr 150 mg PO QAM Qty: 30 RF: 5 metformin 1,000 mg tablet 1,000 mg PO BID Qty: 180 RF: 1 ibuprofen [Advil] 200 mg tablet 200 mg PO Q6H PRN (Reason: Pain) RF: 0 albuterol sulfate 90 mcg/actuation HFA aerosol inhaler 2 puffs inhalation Q4H PRN (Reason: shortness of breath or wheezing) Qty: 1 R F: 0 (DME) lancets [FreeStyle Lancets] 28 gauge misc See Dose Instructions .ROUTE .MEDSUPPLY Qty: 25 RF: 0 (DME) FreeStyle Lite Strips strip See Dose Instructions .ROUTE .MEDSUPPLY Qty: 10 RF: 0 sulfamethoxazole-trimethoprim [Bactrim DS] 800-160 mg tablet 1 tab PO BID Qty: 60 RF: 3 ondansetron 4 mg tablet,disintegrating 4 mg PO Q8H PRN (Reason: nausea and vomiting) Qty: 90 RF: 0 atorvastatin 40 mg tablet 40 mg PO QPM RF: 0 metoprolol succinate 50 mg tablet extended release 24 hr 75 mg PO QAM RF: 0 levothyroxine 100 mcg tablet 100 mcg PO QAM RF: 0 hydrochlorothiazide 12.5 mg tablet 12.5 mg PO QAM RF: 0 Discharge Problem: Atrial fibrillation Qualifiers: Atrial fibrillation type: paroxysmal Qualified Code(s): I48.0 - Paroxysmal atrial fibrillation
--- NOTE | 2019-08-02 10:42 | XRay Report ---
XR chest 1V portable HISTORY: Atrial fibrillation. COMPARISON: Chest 07/15/2018. FINDINGS: Cardiac silhouette remains enlarged. There is progressive interstitial and vascular thicken ing consistent with mild interstitial pulmonary edema. No pneumothorax. Suspect trace bilateral pleur al effusions. No new focal lung consolidations to suggest pneumonia. IMPRESSION: Interval progression of the mild interstitial pulmonary edema with cardiomegaly and trace bilateral p leural effusions. ACT 112: Negative or not required by law. Electronically signed by: Aron Mcelroy M.D. 08/02/2019 10:41 AM
[2019-08-02 10:43] LABS: Basophils # (auto) 0.02 K/uL (0-0.2); Basophils % (auto) 0.2 %; Eosinophils # (auto) 0.41 K/uL (0-0.5); Eosinophils % (auto) 5.1 %; Hemoglobin 11.7 g/dL (12.0-16.0); Immature Granulocytes # (auto) 0.05 K/uL (0.00-0.02); Immature Granulocytes % (auto) 0.6 %; Lymphocytes # (auto) 1.19 K/uL (1.2-3.4); Lymphocytes % (auto) 14.8 %; Mean Corpuscular Hemoglobin 32.3 pg (25-34); Mean Corpuscular Hgb Conc 32.5 g/dL (32-36); Mean Corpuscular Volume 99.4 fL (80-100); Mean Platelet Volume 10.2 fL (7.4-10.4); Monocytes # (auto) 0.41 K/uL (0.11-0.59); Monocytes % (auto) 5.1 %; Neutrophils # (auto) 5.94 K/uL (1.4-6.5); Neutrophils % (auto) 74.2 %; Platelet Count 231 K/uL (130-400); RDW Coefficient of Variation 14.3 % (11.5-14.5); RDW Standard Deviation 51.6 fL (36.4-46.3); Red Blood Count 3.62 M/uL (4.2-5.4); White Blood Count 8.02 K/uL (4.8-10.8)
[2019-08-02 11:00] LABS: Alanine Aminotransferase 21 U/L (12-78); Albumin Level 3.7 gm/dl (3.4-5.0); Aspartate Aminotransferase 20 U/L (15-37); BUN Creatinine Ratio 12.8 (10-20); Blood Urea Nitrogen 9 mg/dl (7-18); Calcium 9.1 mg/dl (8.5-10.1); Carbon Dioxide 25 mmol/L (21-32); Chloride 98 mmol/L (98-107); Creatinine Clr Calc Pharmacy 108.1 ml/min; Est GFR (African American) 107.7; Glucose 110 mg/dl (70-99); Magnesium 1.7 mg/dl (1.8-2.4); Potassium 4.3 mmol/L (3.5-5.1); Sodium 133 mmol/L (136-145)
[2019-08-02] MEDS: METOPROLOL TARTRATE 1 MG/ML VIAL IV PRN ×5 (11:02→21:09)
[2019-08-02 11:10] LABS: Partial Thromboplastin Time 28.6 Seconds (21.0-31.0); Prothrombin Time 10.9 Seconds (9.0-12.0)
[2019-08-02 11:11] LABS: Albumin Globulin Ratio 1.1 (0.9-2); Alkaline Phosphatase 118 U/L (45-117); Bilirubin,Total 0.4 mg/dl (0.2-1); Globulin 3.4 gm/dl (2.5-4.0); Total Protein 7.1 gm/dl (6.4-8.2); Troponin I < 0.015 ng/ml (0-0.045)
[2019-08-02] MEDS ORDERED: dilTIAZem HCl 5 MG/ML 5 ML VIAL IV STA (12:25)
--- NOTE | 2019-08-02 13:48 | Electrocardiogram Report ---
Test Reason : Blood Pressure : / mmHG Vent. Rate : 143 BPM Atrial Rate : 187 BPM P-R Int : 000 ms QRS Dur : 076 ms QT Int : 298 ms P-R-T Axes : 000 077 072 degrees QTc Int : 459 ms Atrial fibrillation with rapid ventricular response Nonspecific ST abnormality Abnormal ECG When compared with ECG of 15-JUL-2018 17:05, Atrial fibrillation has replaced Sinus rhythm Vent. rate has increased BY 87 BPM Confirmed by Parveen Harrington ([id number]) on 08/02/2019 1:48:14 PM Referred By: Confirmed By:Parveen Harrington
--- NOTE | 2019-08-02 13:53 | History & Physical Report ---
Date of Service August 02, 2019 Assessment & Plan (1) Atrial fibrillation with RVR: Admit telemetry Given 15 mg total IV metoprolol in ED without much response. Given 10 mg cardizem with good response, heart rate 90s to 110 while I interviewed her. Continue prn IV metoprolol, patient missed her dose of succinate this morning so will give a dose now. May need to add cardizem po if her heart rate creeps back up Continue home Eliquis Troponin was normal, no chest pain, no ST elevations on EKG - will trend troponin Echocardiogram, last was a year ago CBC, PRP am Patient has seen Dr. Martinez in the past for her A.fib but had felt it was under control and has not been to see cardiology in some time. Will likely need to follow up with them following this admission. Will hold off on consulting for now and monitor heart rate response to current therapy. 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 She is very hesitant to have the antibiotic spacer surgery and so has been taking Bactrim under the wound center's guidance for continued care. WBCs normal, afebrile but will check blood cultures Continue home bactrim (3) Hypothyroid: Continue home levothyroxine (4) Hypertension: Continue home metoprolol and hctz (5) Hypercholesteremia: Continue home atorvastatin (6) Diabetes: type II Hold metformin for now SS, bsgs ac & hs A1c am, last A1c a year ago was 5.5 (7) Asthma: Continue prn albuterol and scheduled Singulair (8) Anxiety: Continue home buspirone (9) Depression: Continue home venlafaxine (10) Hypomagnesemia: Continue home magnesium, will give 1 gm IV mag for magnesium level of 1.7 (11) DVT prophylaxis: Eliquis History of Present Illness Ms. Rivas arrives to the ED from the wound center. She has been having ongoing care from them for an infected prosthetic right knee starting in 2013. She was incidentally found to have a heart rate in the 160s, asymptomatic and was referred from the office. At present she denies any aches, chills, fevers, lightheadedness, palpitations, chest pain, chest pain, cough, n/v/d, dysuria or hesitancy, or skin changes. She does have sob when she becomes anxious and has a history of anxiety. She has been having mild headaches off and on for the past few months which she attributes to allergies. Denies neck pain or photophobia, not currently experiencing a headache. 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 [employer], drinks one alcoholic drink per day, quit smoking 6 years ago after a 7 year pack history Primary Care Provider: Parveen Fishman MD Allergies Allergy/AdvReac Type Severity Reaction Status Date / Time Penicillins Allergy Unknown UNKNOWN Verified 08/02/19 11:08 bacitracin Allergy Verified 08/02/19 11:08 [From Neosporin ([id number])] neomycin Allergy Verified 08/02/19 11:08 [From Neosporin ([id number])] polymyxin B Allergy Verified 08/02/19 11:08 [From Neosporin ([id number])] Home Medications Home Medications Medication Instructions Recorded Confirmed Type cholecalciferol (vitamin D3) 25 1,000 units PO DAILY 12/24/17 08/02/19 History mcg (1,000 unit) capsule cyanocobalamin (vitamin B-12) 1,000 mcg PO DAILY 12/24/17 08/02/19 History 1,000 mcg capsule ibuprofen 200 mg tablet 200 mg PO Q6H PRN 09/28/18 08/02/19 History magnesium oxide 400 mg PO TID cap 09/28/18 08/02/19 History albuterol sulfate 90 mcg/actuation 2 puffs INHALATION Q4H PRN #1 gm 12/01/18 08/02/19 History aerosol inhaler blood sugar diagnostic #10 ea 12/01/18 08/02/19 History lancets 28 gauge #25 ea 12/01/18 08/02/19 History ondansetron 4 mg disintegrating 4 mg PO Q8H PRN #90 tab 12/01/18 08/02/19 History tablet apixaban 5 mg tablet 5 mg PO BID #180 tab 02/09/19 08/02/19 Rx buspirone 10 mg tablet 10 mg PO BID #60 tab 03/14/19 08/02/19 Rx montelukast 10 mg tablet 10 mg PO QPM #7 tab 04/13/19 08/02/19 Rx venlafaxine 150 mg 150 mg PO QAM #30 cap 06/15/19 08/02/19 Rx capsule,extended release 24 hr metformin 1,000 mg tablet 1,000 mg PO BID #180 tab 07/18/19 08/02/19 Rx atorvastatin 40 mg PO QPM 08/02/19 08/02/19 History hydrochlorothiazide 12.5 mg PO QAM 08/02/19 08/02/19 History levothyroxine 100 mcg PO QAM 08/02/19 08/02/19 History metoprolol succinate 75 mg PO QAM 08/02/19 08/02/19 History sulfamethoxazole 800 1 tab PO BID #60 tab 08/02/19 08/02/19 Rx mg-trimethoprim 160 mg tablet Past Med/Surg History Family History Sister Breast cancer Father Diabetes Hypertension Other Family history non-contributory Heart disease Social History Preferred Language: Syriac Communication Ability: Effective 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 Required: No Beliefs That Will Affect Care: None marital status: Single Current Living Situation: Alone Other Information That Helps Us Care for You: No Feels Safe at Home: Yes Safety Concerns: Feels Safe At This Time Smoking Status: Former smoker Number of Years Since Quit: 5 ; Hx Alcohol Use: Yes Alcohol type: hard liquor Hx Substance Use: No Physical Exam Physical Exam: General: no distress Eyes: normal inspection, PERLL Respiratory: chest non tender, clear to auscultation, normal breath sounds, no respiratory distress, no accessory muscle use Cardiac: irregular rate and rhythm, no rub or gallop, no murmur, no edema, no jvd GI/: active bowel sounds, no abd pain or tenderness, soft, non distended Extremities: normal range of motion, normal strength, non tender Neuro: alert, moves all extremities Psych: oriented x 3, normal mood and affect Skin: normal color, dry, rosacea type rash of the face (ongoing per patient) Results & Data Results & Data ([facility]) Vital Signs (Past 12 Hours) Vital Signs Temp Pulse Pulse Resp BP BP Pulse Ox 08/02/19 13:05 108 H 16 123/82 94 08/02/19 12:33 126 H 16 193/143 H 94 08/02/19 12:04 132 H 18 173/146 H 92 08/02/19 11:40 121 H 23 08/02/19 11:32 118 H 22 08/02/19 11:31 128 H 125 H 21 145/124 H 145/124 H 92 08/02/19 11:30 118 H 21 166/129 H 08/02/19 11:20 135 H 19 08/02/19 11:19 117 H 117 H 20 149/123 H 149/123 H 93 08/02/19 11:18 112 H 23 149/123 H 90 08/02/19 11:15 122 H 27 H 135/96 93 08/02/19 11:14 95 08/02/19 11:12 134 H 135/110 H 08/02/19 11:11 136 H 134 H 16 135/110 H 135/110 H 86 L 08/02/19 11:10 130 H 17 91 08/02/19 11:02 143 H 131/98 08/02/19 11:01 137 H 17 95 08/02/19 11:00 141 H 21 131/98 95 08/02/19 10:59 141 H 30 H 95 08/02/19 10:50 132 H 20 91 08/02/19 10:45 142 H 16 118/105 H 95 08/02/19 10:43 139 H 18 118/105 H 95 08/02/19 10:40 139 H 16 93 08/02/19 10:30 134 H 20 96 08/02/19 10:21 142 H 21 94 08/02/19 10:20 148 H 16 140/100 95 08/02/19 10:09 36.8 C 144 H 16 140/100 95 Code Status & VTE Plan VTE Prophylaxis Plan VTE Prophylaxis will be ordered: Yes Supervising Physician Co-Signing Physician Notes Patient seen and examined with Tabitha WOLF. I agree with her exam findings, review of systems, assessment and plan. I personally reviewed the lab work and imaging as well. patient feeling much better after getting to the floor, HR down to the 110's she denies any chest pain clearly states that she did not take her Toprol 75mg this morning she was not having any symptoms of afib RVR such as palpitations or chest pain d/w RN, will give her the Toprol 75mg, watch for to convert or rate to improve - Afib with RVR, did not take Toprol this morning will continue Toprol 75mg daily, dose given this afternoon consider increasing Toprol to 100mg tomorrow if HR still not < 100 echocardiogram and troponins ordered hold on formal cardiology consult for time being, consider it tomorrow if HR still elevated patient would like to go home tomorrow if possible, will depend on HR control PG Care Time/CCT Total # of Minutes Spent Total Time Spent with Patient: Total time spent is greater than 50% in coordination of care (as documented) at patient's floor/unit and/or counseling patient: Coding Level of Care Code 64862 Initial Inpt Care Lvl 3 Diagnoses Atrial fibrillation with RVR I48.91 Chronic infection of knee joint prosthesis T84.59XA; Z96.659 Encounter type: initial encounter Hypothyroid E03.9 Hypothyroidism type: acquired Hypertension I10 Hypertension type: essential hypertension Hypercholesteremia E78.00 Diabetes E11.40 Diabetes mellitus complication detail: with unspecified neuropathy Diabetes mellitus complication status: with neurologic complications Diabetes mellitus retirement insulin use: without retirement use Diabetes mellitus type: type 2 Asthma J45.20 Asthma complication type: unspecified Asthma persistence: intermittent Asthma severity: mild Anxiety F41.9 Depression F32.9 Depression Type: unspecified Hypomagnesemia E83.42 DVT prophylaxis Z29.9 (1) Chronic infection of knee joint prosthesis Encounter type: initial encounter Qualified Code(s): T84.59XA - Infection and inflammatory reaction due to other internal joint prosthesis, initial encounter; Z96.659 - Presence of unspecified artificial knee joint (2) Diabetes Diabetes mellitus complication detail: with unspecified neuropathy Diabetes mellitus complication status: with neurologic complications Diabetes mellitus retirement insulin use: 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 Diabetes mellitus type: type 2 Qualified Code(s): E11.40 - Type 2 diabetes mellitus with diabetic neuropathy, unspecified (3) Depression Depression Type: unspecified Qualified Code(s): F32.9 - Major depressive disorder, single episode, unspecified (4) Hypothyroid Hypothyroidism type: acquired Qualified Code(s): E03.9 - Hypothyroidism, unspecified (5) Hypertension Hypertension type: essential hypertension Qualified Code(s): I10 - Essential (primary) hypertension (6) Asthma Asthma complication type: unspecified Asthma persistence: intermittent Asthma severity: mild Qualified Code(s): J45.20 - Mild intermittent asthma, uncomplicated
[2019-08-02] MEDS ORDERED: ALBUTEROL HFA 8 GM INHALER INH PRN (14:18)
[2019-08-02] MEDS ORDERED: GLUCOSE 40% GEL 15 GM TUBE PO PRN (14:18)
[2019-08-02] MEDS ORDERED: DEXTROSE 50% 50 ML SYRINGE IV PRN (14:18)
[2019-08-02] MEDS ORDERED: POLYETHYLENE (MIRALAX) 17 GM PACK PO PRN (14:18)
[2019-08-02] MEDS ORDERED: METOPROLOL SUCC 25MG EXT REL TAB PO ONE (14:18)
[2019-08-02] MEDS ORDERED: ACETAMINOPHEN 325 MG TAB PO PRN (14:18)
[2019-08-02] MEDS ORDERED: GLUCOSE 10 TABS/TUBE PO PRN (14:18)
[2019-08-02] MEDS ORDERED: GLUCAGON FOR INJ 1 MG VIAL SQ PRN (14:18)
[2019-08-02] MEDS ORDERED: CARBOHYDRATES FOR HYPOGLYCEMIA PO PRN (14:18)
[2019-08-02] MEDS: MAGNESIUM OXIDE 400 MG TAB PO SCH ×2 (14:58→21:08)
[2019-08-02] MEDS ORDERED: MAGNESIUM SULFATE / D5W 1 GM/100 ML BAG IV ONE (15:00)
[2019-08-02] MEDS: INSULIN ASPART 100 UNITS/ML 3 ML PEN SC SCH ×2 (17:05→21:38)
[2019-08-02] MEDS: LORazepam 0.5 MG TAB PO PRN (19:40)
[2019-08-02] MEDS: ATORVASTATIN 40 MG TAB PO SCH (21:06)
[2019-08-02] MEDS: APIXABAN 5 MG TABLET PO SCH (21:06)
[2019-08-02] MEDS: MONTELUKAST SODIUM 10 MG TABLET PO SCH (21:08)
[2019-08-02] MEDS: SULFAMETHOXAZOLE/TRIMETHOPRIM DS 800/160MG TAB PO SCH (21:08)
[2019-08-03] MEDS: METOPROLOL TARTRATE 1 MG/ML VIAL IV PRN (04:23)
[2019-08-03] MEDS: LEVOTHYROXINE SODIUM 100 MCG TABLET PO SCH (06:09)
[2019-08-03 06:17] LABS: Basophils # (auto) 0.02 K/uL (0-0.2); Basophils % (auto) 0.3 %; Eosinophils # (auto) 0.51 K/uL (0-0.5); Eosinophils % (auto) 8.7 %; Hematocrit (blood only) 33.8 % (37-47); Hemoglobin 10.8 g/dL (12.0-16.0); Immature Granulocytes # (auto) 0.04 K/uL (0.00-0.02); Immature Granulocytes % (auto) 0.7 %; Lymphocytes # (auto) 1.14 K/uL (1.2-3.4); Lymphocytes % (auto) 19.4 %; Mean Corpuscular Hemoglobin 32.7 pg (25-34); Mean Corpuscular Volume 102.4 fL (80-100); Mean Platelet Volume 10.1 fL (7.4-10.4); Monocytes # (auto) 0.41 K/uL (0.11-0.59); Neutrophils # (auto) 3.75 K/uL (1.4-6.5); Neutrophils % (auto) 63.9 %; Platelet Count 226 K/uL (130-400); RDW Coefficient of Variation 14.6 % (11.5-14.5); RDW Standard Deviation 54.2 fL (36.4-46.3); White Blood Count 5.87 K/uL (4.8-10.8)
[2019-08-03 06:53] LABS: Albumin Level 3.3 gm/dl (3.4-5.0); BUN Creatinine Ratio 14.7 (10-20); Calcium 8.6 mg/dl (8.5-10.1); Creatinine Clr Calc Pharmacy 87.8 ml/min; Est GFR (African American) 85.7; Potassium 4.3 mmol/L (3.5-5.1)
[2019-08-03 06:56] LABS: Bilirubin,Total 0.3 mg/dl (0.2-1); Globulin 3.3 gm/dl (2.5-4.0); Total Protein 6.6 gm/dl (6.4-8.2)
[2019-08-03 07:16] LABS: Estimated Average Glucose 126 mg/dl
[2019-08-03] MEDS: VENLAFAXINE HCL XR 150 MG CAPXR PO SCH (08:07)
[2019-08-03] MEDS: CYANOCOBALAMIN 500 MCG TABLET (VITAMIN B-12) PO SCH (08:07)
[2019-08-03] MEDS: hydroCHLOROthiazide 25 MG TAB PO SCH (08:08)
[2019-08-03] MEDS: MAGNESIUM OXIDE 400 MG TAB PO SCH ×3 (08:09→20:29)
[2019-08-03] MEDS: CHOLECALCIFEROL 1,000 UNITS 25 MCG TAB PO SCH (08:09)
[2019-08-03] MEDS: SULFAMETHOXAZOLE/TRIMETHOPRIM DS 800/160MG TAB PO SCH ×2 (08:09→20:30)
[2019-08-03] MEDS: INSULIN ASPART 100 UNITS/ML 3 ML PEN SC SCH ×4 (08:43→20:29)
[2019-08-03] MEDS ORDERED: METOPROLOL SUCC 25MG EXT REL TAB PO SCH (09:00)
[2019-08-03] MEDS: APIXABAN 5 MG TABLET PO SCH ×2 (09:05→20:29)
[2019-08-03] MEDS ORDERED: METOPROLOL SUCC 25MG EXT REL TAB PO STA (09:12)
[2019-08-03] MEDS: CETIRIZINE HCL 10 MG TABLET PO SCH (09:51)
--- NOTE | 2019-08-03 10:47 | XCELERA ---
[id number]
--- NOTE | 2019-08-03 11:22 | Cardiology Consultation ---
Date of Consultation August 03, 2019 Assessment & Plan (1) Atrial fibrillation with RVR: The patient carries a history of paroxysmal atrial fibrillation 1st diagnosed in 2014. She failed a trial of flecainide and was turned down for radiofrequency ablation at [facility]. She started amiodarone therapy at [place]'s request in approximately 2016. Amiodarone therapy was discontinued in August 2018 as she could not get a refill. Suggest starting amiodarone with an IV loading dose. It may also be reasonable to increase her magnesium supplementation. (2) Hypertension: Adequate control on current medical regimen. (3) Hypercholesteremia: Continue atorvastatin. (4) Hypomagnesemia: As above, could consider increasing magnesium supplementation. History of Present Illness Attending Physician: Alton Arias MD History of Present Illness Mrs. Agrawal is a 59-year-old female admitted yesterday with atrial fibrillation and a rapid ventricular response. This consultation was ordered to assist in her cardiac management. The patient was in her usual state of health until several days ago when she began to note an increase in her level of anxiety. While being seen in the wound clinic yesterday, the patient was noted to have a persistent tachycardia with heart rates 150-160 beats per minute. She was directed to the emergency room immediately following her visit. On arrival here, the patient was in atrial fibrillation with a rapid ventricular response. She was treated with intravenous beta-blockers and intravenous Cardizem. Unfortunately, ventricular response has been inadequately controlled. The patient was diagnosed with paroxysmal atrial fibrillation back in 2014. she failed a trial of flecainide it was evaluated [facility] for possible ablation. She was turned down for the ablation due to her numerous comorbidities. Amiodarone therapy was recommended at that time. She continued amiodarone until August 2018. She called in for a prescription renewal, however, the pharmacist on her case refused to renewed that medication as she had not had close cardiac follow-up. She has not taken amiodarone since that time. The patient does not typically experience palpitations with her atrial fibrillation. She has not experienced any exertional chest pain or limiting dyspnea. She further denies syncope, presyncope, PND, orthopnea, lower extremity edema, and claudication. Currently, patient is resting at the bedside and without complaints. Past medical and surgical history 1. Hypertension 2. Hypercholesterolemia 3. Paroxysmal atrial fibrillation 4. COPD 5. Diabetes mellitus 6. Hypothyroidism 7. Obesity 8. Obstructive sleep apnea 9. DJD 10. Anxiety/ depression 11. Right foot toe amputation- 2013 12. 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 Right TKR- 2010 14. 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 Allergies Allergy/AdvReac Type Severity Reaction Status Date / Time Penicillins Allergy Unknown UNKNOWN Verified 08/02/19 11:08 bacitracin Allergy Verified 08/02/19 11:08 [From Neosporin ([id number])] neomycin Allergy Verified 08/02/19 11:08 [From Neosporin ([id number])] polymyxin B Allergy Verified 08/02/19 11:08 [From Neosporin ([id number])] Home Medications Home Medications Medication Instructions Recorded Confirmed Type cholecalciferol (vitamin D3) 25 1,000 units PO DAILY 12/24/17 08/02/19 History mcg (1,000 unit) capsule cyanocobalamin (vitamin B-12) 1,000 mcg PO DAILY 12/24/17 08/02/19 History 1,000 mcg capsule ibuprofen 200 mg tablet 200 mg PO Q6H PRN 09/28/18 08/02/19 History magnesium oxide 400 mg PO TID cap 09/28/18 08/02/19 History albuterol sulfate 90 mcg/actuation 2 puffs INHALATION Q4H PRN #1 gm 12/01/18 08/02/19 History aerosol inhaler blood sugar diagnostic #10 ea 12/01/18 08/02/19 History lancets 28 gauge #25 ea 12/01/18 08/02/19 History ondansetron 4 mg disintegrating 4 mg PO Q8H PRN #90 tab 12/01/18 08/02/19 History tablet apixaban 5 mg tablet 5 mg PO BID #180 tab 02/09/19 08/02/19 Rx buspirone 10 mg tablet 10 mg PO BID #60 tab 03/14/19 08/02/19 Rx montelukast 10 mg tablet 10 mg PO QPM #7 tab 04/13/19 08/02/19 Rx venlafaxine 150 mg 150 mg PO QAM #30 cap 06/15/19 08/02/19 Rx capsule,extended release 24 hr metformin 1,000 mg tablet 1,000 mg PO BID #180 tab 07/18/19 08/02/19 Rx atorvastatin 40 mg PO QPM 08/02/19 08/02/19 History hydrochlorothiazide 12.5 mg PO QAM 08/02/19 08/02/19 History levothyroxine 100 mcg PO QAM 08/02/19 08/02/19 History metoprolol succinate 75 mg PO QAM 08/02/19 08/02/19 History sulfamethoxazole 800 1 tab PO BID #60 tab 08/02/19 08/02/19 Rx mg-trimethoprim 160 mg tablet Patient History Family History Sister Breast cancer Father Diabetes Hypertension Other Family history non-contributory Heart disease Social History Preferred Language: Wolof Communication Ability: Effective Professional 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 HEENT exam is negative. Neck is supple with full carotid upstrokes. There are no carotid bruits. Jugular venous pressure is flat at 90. There is no thyromegaly. Cardiovascular exam reveals an irregularly regular rhythm with distant heart sounds. No obvious murmurs. Lungs are clear without rales, rhonchi, or wheezes. Abdomen is obese without bruits. Extremities reveal intact radial artery and posterior tibial pulses bilaterally. There is no peripheral edema. Results & Data ([facility]) Vital Signs (Past 12 Hours) Vital Signs Temp Pulse Pulse Resp BP BP Pulse Ox 08/03/19 10:58 36.4 C L 110 H 20 116/81 93 08/03/19 09:46 158/96 H 08/03/19 08:00 36.8 C 125 H 16 128/90 95 08/03/19 04:27 36.5 C 131 H 20 139/92 93 08/03/19 04:23 124 H 137/89 08/02/19 23:24 36.8 C 120 H 19 124/92 90 Laboratory Results CBC notes hemoglobin of 10.8, hematocrit 33.8, white count 5.87, and a platelet count of 226,000. electrolytes noted a sodium of 137, potassium 4.3, chloride 102, bicarb 29, BUN 13, creatinine 0.7, and glucose of 115. two troponin I levels are undetectable less than 0.015. TSH is normal at 2.49. Magnesium is borderline low at 1.7. Diagnostic Findings EKG notes atrial fibrillation with a rapid ventricular response. There is a nonspecific ST abnormality. Echocardiogram notes normal left ventricular systolic function without wall motion abnormalities. Ejection fraction is 55- 60%. There is mild LVH and moderate left atrial enlargement ( 5.4 cm in diameter ). Chest x-ray notes cardiomegaly. PG Care Time/CCT Total # of Minutes Spent Total Time Spent with Patient: Total time spent is greater than 50% in coordination of care (as documented) at patient's floor/unit and/or counseling patient: Coding Level of Care Code 33444 Office/OBS Consult Lvl 4 Diagnoses Atrial fibrillation with RVR I48.91 Hypertension I10 Hypertension type: essential hypertension Hypercholesteremia E78.00 Hypomagnesemia E83.42 (1) Hypertension Hypertension type: essential hypertension Qualified Code(s): I10 - Essential (primary) hypertension
[2019-08-03] MEDS ORDERED: AMIODARONE IV BOLUS & DRIP IV STA (13:54)
[2019-08-03] MEDS ORDERED: STAT IV Infusion **Titration per Protocol STA (13:54)
[2019-08-03] MEDS ORDERED: HYDROCORTISONE 1% CRM 30 GM TUBE EXT PRN (13:55)
--- NOTE | 2019-08-03 14:05 | Hospitalist Progress Note ---
Date of Service August 03, 2019 Assessment & Plan (1) Atrial fibrillation with RVR: Long history of paroxysmal afib with prior cardioversions. - Continue beta-keya (increased to Toprol XL 100 mg today) - Started amiodarone per cardiology - Cardiology appreciated (2) Chronic infection of knee joint prosthesis: Per patient, started in 2013. She is very hesitant to have the antibiotic spacer surgery and so has been taking Bactrim under the Wound Center's guidance for continued care. WBCs normal, afebrile but will check blood cultures. - Continue home Bactrim - Cultures negative so far (3) Hypothyroid: - Continue home levothyroxine (4) Hypertension: BP 116/80 at present. - Continue home metoprolol (increased dose as above) and HCTZ (5) Hypercholesteremia: - Continue home atorvastatin (6) Diabetes: Type II. A1c is 6.0% this admission. - Hold metformin - Sliding scale insulin (7) Asthma: - Continue prn albuterol and scheduled Singulair (8) Anxiety: - Continue home buspirone (9) Depression: - Continue home venlafaxine (10) Hypomagnesemia: Unclear cause. - Continue home magnesium - Replete with IV as needed (11) DVT prophylaxis: Eliquis Admission and Anticipated Discharge Date Admission Date: August 02, 2019 Subjective Feels well today. No major concerns. Does feel palpitations occasionally. Reports no fevers/chills, chest pain, shortness of breath, abdominal pain, nausea, or vomiting. Physical Exam Constitutional: WD/WN, vitals as above Eyes: EOM intact bilaterally; no conjunctival abnormality ENMT: external ear and nose normal, oropharynx normal Neck: trachea midline, no thyromegaly normal visual inspection Respiratory: normal respiratory effort, lungs clear to auscultation no respiratory distress Cardiovascular: Rate/Rhythm: + tachycardic and + irregularly irregular Heart Sounds: normal S1 and normal S2 Vessels: no JVD Extremities: no edema Gastrointestinal (Abdomen): Inspection/Auscultation: abdomen normal to inspection; abdomen not distended Musculoskeletal: no cyanosis or clubbing, extremities motor strength 5/5 Skin: no rashes, warm and dry Neurologic: moves all extremities and awake Psychiatric: Orientation: alert, oriented to person and cooperative Results & Data Results & Data ([facility]) Vital Signs (Past 12 Hours) Vital Signs Temp Pulse Pulse Resp BP BP Pulse Ox 08/03/19 10:58 36.4 C L 110 H 20 116/81 93 08/03/19 09:46 158/96 H 08/03/19 08:00 36.8 C 125 H 16 128/90 95 08/03/19 04:27 36.5 C 131 H 20 139/92 93 08/03/19 04:23 124 H 137/89 PG Care Time/CCT Total # of Minutes Spent Total Time Spent with Patient: Total time spent is greater than 50% in coordination of care (as documented) at patient's floor/unit and/or counseling patient: Coding Level of Care Code 73324 Subseq Hosp Care Lvl 3 Diagnoses Atrial fibrillation with RVR I48.91 Chronic infection of knee joint prosthesis T84.59XA; Z96.659 Encounter type: initial encounter Hypothyroid E03.9 Hypothyroidism type: acquired Hypertension I10 Hypertension type: essential hypertension Hypercholesteremia E78.00 Diabetes E11.40 Diabetes mellitus type: type 2 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 Diabetes mellitus complication status: with neurologic complications Diabetes mellitus complication detail: with unspecified neuropathy Asthma J45.20 Asthma severity: mild Asthma persistence: intermittent Asthma complication type: unspecified Anxiety F41.9 Depression F32.9 Depression Type: unspecified Hypomagnesemia E83.42 DVT prophylaxis Z29.9 (1) Chronic infection of knee joint prosthesis Encounter type: initial encounter Qualified Code(s): T84.59XA - Infection and inflammatory reaction due to other internal joint prosthesis, initial encounter; Z96.659 - Presence of unspecified artificial knee joint (2) Hypothyroid Hypothyroidism type: acquired Qualified Code(s): E03.9 - Hypothyroidism, unspecified (3) Hypertension Hypertension type: essential hypertension Qualified Code(s): I10 - Essential (primary) hypertension (4) Diabetes Diabetes mellitus type: type 2 Diabetes mellitus custodial insulin use: without 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
[2019-08-03] MEDS ORDERED: AMIODARONE / D5W 150 MG/100 ML BAG IV STA (14:06)
[2019-08-03] MEDS ORDERED: 0.2 MICRON FILTER SET 1 EA IV ONE (14:15)
[2019-08-03] MEDS: AMIODARONE 450 MG in D5W 250ML IN *POLYOLEFIN BAG* 241 ML IV SCH ×2 (14:35→21:59)
[2019-08-03] MEDS ORDERED: AMIODARONE RATE CHANGE ONE (20:20)
[2019-08-03] MEDS: ATORVASTATIN 40 MG TAB PO SCH (20:29)
[2019-08-03] MEDS: MONTELUKAST SODIUM 10 MG TABLET PO SCH (20:30)
[2019-08-03] MEDS: LORazepam 0.5 MG TAB PO PRN (20:34)
[2019-08-04] MEDS: LEVOTHYROXINE SODIUM 100 MCG TABLET PO SCH (05:23)
[2019-08-04 06:10] LABS: Hematocrit (blood only) 35.9 % (37-47); Hemoglobin 11.5 g/dL (12.0-16.0); Mean Corpuscular Hemoglobin 32.8 pg (25-34); Mean Corpuscular Volume 102.3 fL (80-100); Mean Platelet Volume 10.7 fL (7.4-10.4); Platelet Count 257 K/uL (130-400); RDW Coefficient of Variation 14.7 % (11.5-14.5); RDW Standard Deviation 54.6 fL (36.4-46.3); Red Blood Count 3.51 M/uL (4.2-5.4); White Blood Count 7.44 K/uL (4.8-10.8)
[2019-08-04 06:14] LABS: BUN Creatinine Ratio 15.5 (10-20); Calcium 8.9 mg/dl (8.5-10.1); Creatinine Clr Calc Pharmacy 91.2 ml/min; Est GFR (African American) 89.4; Est GFR (Non-African American) 77.2; Magnesium 1.9 mg/dl (1.8-2.4); Potassium 4.5 mmol/L (3.5-5.1)
[2019-08-04] MEDS: CYANOCOBALAMIN 500 MCG TABLET (VITAMIN B-12) PO SCH (08:13)
[2019-08-04] MEDS: CETIRIZINE HCL 10 MG TABLET PO SCH (08:13)
[2019-08-04] MEDS: APIXABAN 5 MG TABLET PO SCH ×2 (08:14→20:16)
[2019-08-04] MEDS: hydroCHLOROthiazide 25 MG TAB PO SCH (08:14)
[2019-08-04] MEDS: MAGNESIUM OXIDE 400 MG TAB PO SCH ×3 (08:14→20:17)
[2019-08-04] MEDS: CHOLECALCIFEROL 1,000 UNITS 25 MCG TAB PO SCH (08:18)
[2019-08-04] MEDS: SULFAMETHOXAZOLE/TRIMETHOPRIM DS 800/160MG TAB PO SCH ×2 (08:18→20:16)
[2019-08-04] MEDS: METOPROLOL SUCC 50MG EXT REL TAB PO SCH (08:18)
[2019-08-04] MEDS: VENLAFAXINE HCL XR 150 MG CAPXR PO SCH (08:18)
[2019-08-04] MEDS: INSULIN ASPART 100 UNITS/ML 3 ML PEN SC SCH ×4 (08:24→20:19)
--- NOTE | 2019-08-04 11:54 | Cardiology Progress Note ---
Date of Service August 04, 2019 Assessment & Plan (1) Atrial fibrillation with RVR: History of paroxysmal atrial fibrillation since 2015. Tolerating intravenous amiodarone without difficulty. Ventricular response is improving. Would continue intravenous amiodarone for an additional 24 hours. Continue metoprolol succinate and Eliquis. (2) Hypertension: Adequate control on current medical regimen. (3) Hypercholesteremia: Continue atorvastatin. (4) Hypomagnesemia: Could consider increasing magnesium supplementation. Admission and Anticipated Discharge Date Admission Date: August 02, 2019 Subjective The patient is resting comfortably in bed without complaints of chest pain, dyspnea, or palpitations. We have discussed an additional 24 hours of intravenous amiodarone. Physical Exam Physical Exam: In general this is an obese white female in no acute distress. HEENT exam is negative. Neck is supple with full carotid upstrokes. There are no carotid bruits. Jugular venous pressure is flat at 90. There is no thyromegaly. Cardiovascular exam reveals an irregularly regular rhythm with distant heart sounds. No obvious murmurs. Lungs are clear without rales, rhonchi, or wheezes. Abdomen is obese without bruits. Extremities reveal intact radial artery and posterior tibial pulses bilaterally. There is no peripheral edema. Results & Data ([facility]) Vital Signs (Past 12 Hours) Vital Signs Temp Pulse Resp BP Pulse Ox 08/04/19 11:36 37.1 C 108 H 20 139/91 96 08/04/19 07:00 36.5 C 106 H 22 144/89 H 98 08/04/19 03:58 36.5 C 116 H 18 107/77 96 Diagnostic Findings financial systems analyst notes atrial fibrillation with an average ventricular response of approximately 100 bpm. PG Care Time/CCT Total # of Minutes Spent Total Time Spent with Patient: Total time spent is greater than 50% in coordination of care (as documented) at patient's floor/unit and/or counseling patient: Coding Level of Care Code 49840 Subseq Hosp Care Lvl 3 Diagnoses Atrial fibrillation with RVR I48.91 Hypertension I10 Hypertension type: essential hypertension Hypercholesteremia E78.00 Hypomagnesemia E83.42 (1) Hypertension Hypertension type: essential hypertension Qualified Code(s): I10 - Essential (primary) hypertension
[2019-08-04] MEDS: LORazepam 0.5 MG TAB PO PRN ×2 (14:30→23:02)
[2019-08-04] MEDS: AMIODARONE 450 MG in D5W 250ML IN *POLYOLEFIN BAG* 241 ML IV SCH (14:30)
--- NOTE | 2019-08-04 16:07 | Hospitalist Progress Note ---
Date of Service August 04, 2019 Assessment & Plan (1) Atrial fibrillation with RVR: Long history of paroxysmal afib with prior cardioversions. - Continue beta-keya (increased to Toprol XL 100 mg on 08/02) - Started amiodarone per cardiology - Cardiology appreciated -> Continue for another 24h, then switch to oral. Discussed with cardiology today. 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 She is very hesitant to have the antibiotic spacer surgery and so has been taking Bactrim [facility] guidance for continued care. WBCs normal, afebrile but will check blood cultures. - Continue home Bactrim - Cultures negative so far (3) Hypothyroid: TSH was 2.5 this admission. - Continue home levothyroxine (4) Hypertension: BP 130/90 at present. - Continue home metoprolol (increased dose as above) and HCTZ (5) Hypercholesteremia: - Continue home atorvastatin (6) Diabetes: Type II. A1c is 6.0% this admission. - Hold metformin - Sliding scale insulin (7) Asthma: - Continue prn albuterol and scheduled Singulair (8) Anxiety: - Continue home buspirone (9) Depression: - Continue home venlafaxine (10) Hypomagnesemia: Possibly due to HCTZ as this causes urinary magnesium wasting. Will hold at present. - Continue home magnesium - Replete with IV as needed - Hold HCTZ; PCP to recheck BP and Mg levels within a week of discharge. (11) [facility] and Anticipated Discharge Date Admission Date: August 02, 2019 Subjective No major complaints today. No palpitations. Reports no fevers/chills, chest pain, shortness of breath, abdominal pain, nausea, or vomiting. Physical Exam Constitutional: WD/WN, vitals as above Eyes: EOM intact bilaterally; no conjunctival abnormality ENMT: external ear and nose normal, oropharynx normal Neck: trachea midline, no thyromegaly normal visual inspection Respiratory: normal respiratory effort, lungs clear to auscultation no respiratory distress Cardiovascular: Rate/Rhythm: + tachycardic and + irregularly irregular Heart Sounds: normal S1 and normal S2 Vessels: no JVD Extremities: no edema Gastrointestinal (Abdomen): Inspection/Auscultation: abdomen normal to inspection; abdomen not distended Musculoskeletal: no cyanosis or clubbing, extremities motor strength 5/5 Skin: no rashes, warm and dry Neurologic: moves all extremities and awake Psychiatric: Orientation: alert, oriented to person and cooperative Results & Data Results & Data ([facility]) Vital Signs (Past 12 Hours) Vital Signs Temp Pulse Pulse Resp BP BP Pulse Ox 08/04/19 15:35 107 H 08/04/19 15:17 37.0 C 102 H 16 132/92 94 08/04/19 11:36 37.1 C 108 H 20 139/91 96 08/04/19 07:00 36.5 C 106 H 22 144/89 H 98 PG Care Time/CCT Total # of Minutes Spent Total Time Spent with Patient: Total time spent is greater than 50% in coordination of care (as documented) at patient's floor/unit and/or counseling patient: Coding Level of Care Code 04125 Subseq Hosp Care Lvl 3 Diagnoses Atrial fibrillation with RVR I48.91 Chronic infection of knee joint prosthesis T84.59XA; Z96.659 Encounter type: initial encounter Hypothyroid E03.9 Hypothyroidism type: acquired Hypertension I10 Hypertension type: essential hypertension Hypercholesteremia E78.00 Diabetes E11.40 Diabetes mellitus type: type 2 Diabetes mellitus detention insulin use: without ferry terminal supervisor use Diabetes mellitus complication status: with neurologic complications Diabetes mellitus complication detail: with unspecified neuropathy Asthma J45.20 Asthma severity: mild Asthma persistence: intermittent Asthma complication type: unspecified Anxiety F41.9 Depression F32.9 Depression Type: unspecified Hypomagnesemia E83.42 DVT prophylaxis Z29.9 (1) Chronic infection of knee joint prosthesis Encounter type: initial encounter Qualified Code(s): T84.59XA - Infection and inflammatory reaction due to other internal joint prosthesis, initial encounter; Z96.659 - Presence of unspecified artificial knee joint (2) Hypothyroid Hypothyroidism type: acquired Qualified Code(s): E03.9 - Hypothyroidism, unspecified (3) Hypertension Hypertension type: essential hypertension Qualified Code(s): I10 - Essential (primary) hypertension (4) Diabetes Diabetes mellitus type: type 2 Diabetes mellitus ferry terminal supervisor insulin use: without ferry terminal supervisor use Diabetes mellitus complication status: with neurologic complications Diabetes mellitus complication detail: with unspecified neuropathy Qualified Code(s): E11.40 - Type 2 diabetes mellitus with diabetic neuropathy, unspecified (5) Asthma Asthma severity: mild Asthma persistence: intermittent Asthma complication type: unspecified Qualified Code(s): J45.20 - Mild intermittent asthma, uncomplicated (6) Depression Depression Type: unspecified Qualified Code(s): F32.9 - Major depressive disorder, single episode, unspecified
[2019-08-04] MEDS: MONTELUKAST SODIUM 10 MG TABLET PO SCH (20:18)
[2019-08-04] MEDS: ATORVASTATIN 40 MG TAB PO SCH (20:18)
[2019-08-05] MEDS: AMIODARONE 450 MG in D5W 250ML IN *POLYOLEFIN BAG* 241 ML IV SCH ×4 (03:18→12:44)
[2019-08-05] MEDS: LEVOTHYROXINE SODIUM 100 MCG TABLET PO SCH (05:49)
[2019-08-05 06:45] LABS: Hematocrit (blood only) 35.3 % (37-47); Hemoglobin 11.3 g/dL (12.0-16.0); Mean Corpuscular Hemoglobin 32.8 pg (25-34); Mean Corpuscular Volume 102.6 fL (80-100); Mean Platelet Volume 9.9 fL (7.4-10.4); Platelet Count 242 K/uL (130-400); RDW Coefficient of Variation 14.6 % (11.5-14.5); Red Blood Count 3.44 M/uL (4.2-5.4); White Blood Count 7.88 K/uL (4.8-10.8)
[2019-08-05 07:04] LABS: Albumin Level 3.4 gm/dl (3.4-5.0); BUN Creatinine Ratio 15.6 (10-20); Calcium 9.1 mg/dl (8.5-10.1); Creatinine Clr Calc Pharmacy 90.1 ml/min; Est GFR (African American) 88.2; Est GFR (Non-African American) 76.1; Magnesium 1.8 mg/dl (1.8-2.4); Potassium 4.2 mmol/L (3.5-5.1)
[2019-08-05 07:07] LABS: Bilirubin,Total 0.4 mg/dl (0.2-1); Globulin 3.5 gm/dl (2.5-4.0); Total Protein 6.9 gm/dl (6.4-8.2)
[2019-08-05] MEDS: INSULIN ASPART 100 UNITS/ML 3 ML PEN SC SCH ×2 (08:24→12:45)
[2019-08-05] MEDS: VENLAFAXINE HCL XR 150 MG CAPXR PO SCH (08:26)
[2019-08-05] MEDS: CHOLECALCIFEROL 1,000 UNITS 25 MCG TAB PO SCH (08:26)
[2019-08-05] MEDS: MAGNESIUM OXIDE 400 MG TAB PO SCH ×2 (08:26→14:03)
[2019-08-05] MEDS: CYANOCOBALAMIN 500 MCG TABLET (VITAMIN B-12) PO SCH (08:27)
[2019-08-05] MEDS: APIXABAN 5 MG TABLET PO SCH (08:27)
[2019-08-05] MEDS: SULFAMETHOXAZOLE/TRIMETHOPRIM DS 800/160MG TAB PO SCH (08:27)
[2019-08-05] MEDS: METOPROLOL SUCC 50MG EXT REL TAB PO SCH (08:27)
[2019-08-05] MEDS: CETIRIZINE HCL 10 MG TABLET PO SCH (08:28)
--- NOTE | 2019-08-05 12:05 | Cardiology Progress Note ---
Date of Service August 05, 2019 Assessment & Plan (1) Atrial fibrillation with RVR: 2. Preserved LV function 3. Chronic infection of knee joint prosthesis 4. Type 2 diabetes 5. Hypertension 6. Dyslipidemia history of paroxysmal atrial fibrillation since 2015. Remains in atrial fibrillation today but asymptomatic. No signs of heart failure. Resting heart rates largely in the 100s on IV amiodarone Okay with resting heart rates less than 110s Plan to convert IV amiodarone to p.o. 200 mg twice daily Continue current Toprol-XL Continue Eliquis From a cardiac standpoint okay with discharge today with follow-up with me in 1 to 2 weeks. Admission and Anticipated Discharge Date Admission Date: August 02, 2019 Subjective Patient feeling well this morning. Sitting up in chair. Denies palpitations, chest pain or shortness of breath. Telemetry reviewedresting heart rate primarily 90s to 100s, with any activity heart rates up to 130s as high as 150s Review of Systems Review of Systems: All systems reviewed & are unremarkable except as noted in HPI & below Physical Exam Physical Exam: General: Comfortable, no acute distress HEENT: Sclerae anicteric, mucous membranes moist Lungs: Limited air movement throughout but clear Cardiac: Tachycardic, irregular irregular, no murmurs Abdomen: Soft, nontender Extremities: Warm, chronic venous stasis changes Neuro: Nonfocal Psych: Alert orient x3, normal affect and mood Results & Data ([facility]) Vital Signs (Past 12 Hours) Vital Signs Temp Pulse Pulse Pulse Resp BP BP 08/05/19 11:39 98.1 F 121 H 90 19 134/94 139/91 08/05/19 11:06 98.1 F 90 19 134/94 08/05/19 08:00 105 H 08/05/19 07:09 97.7 F 118 H 20 139/94 08/05/19 03:35 98.1 F 109 H 17 133/93 Pulse Ox 08/05/19 11:39 95 08/05/19 11:06 95 08/05/19 08:00 08/05/19 07:09 93 08/05/19 03:35 93 PG Care Time/CCT Total # of Minutes Spent Total Time Spent with Patient: Total time spent is greater than 50% in coordination of care (as documented) at patient's floor/unit and/or counseling patient: Coding Level of Care Code 46651 Subseq Hosp Care Lvl 3 Diagnoses Atrial fibrillation with RVR I48.91
--- NOTE | 2019-08-05 16:29 | Discharge Summary ---
Date of Service August 05, 2019 Principal Diagnosis Afib with RVR Discharge Exam Constitutional WD/WN, vitals as above Eyes EOM intact bilaterally; no conjunctival abnormality ENMT external ear and nose normal, oropharynx normal Neck trachea midline, no thyromegaly normal visual inspection Respiratory normal respiratory effort, lungs clear to auscultation no respiratory distress Cardiovascular Rate/Rhythm: + tachycardic and + irregularly irregular Heart Sounds: normal S1 and normal S2 Vessels: no JVD Extremities: no edema Gastrointestinal (Abdomen) Inspection/Auscultation: abdomen normal to inspection; abdomen not distended Musculoskeletal no cyanosis or clubbing, extremities motor strength 5/5 Skin no rashes, warm and dry Neurologic moves all extremities and awake Psychiatric Orientation: alert, oriented to person and cooperative Discharge Data Allergies Allergy/AdvReac Type Severity Reaction Status Date / Time Penicillins Allergy Unknown UNKNOWN Verified 08/02/19 11:08 bacitracin Allergy Verified 08/02/19 11:08 [From Neosporin ([id number])] neomycin Allergy Verified 08/02/19 11:08 [From Neosporin ([id number])] polymyxin B Allergy Verified 08/02/19 11:08 [From Neosporin ([id number])] Consultations 08/02/19 13:00 ED Decision to Admit Stat 08/03/19 09:04 Consult Cardiology Routine Hospital Course (1) Atrial fibrillation with RVR: Long history of paroxysmal afib with prior cardioversions. - Continue beta-keya (increased to Toprol XL 100 mg on 08/02) - Started amiodarone per cardiology - Loaded with amiodarone IV while inpatient -> Switched to amiodarone PO on discharge. HRs came down to 90-100 range. 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 She is very hesitant to have the antibiotic spacer surgery and so has been taking Bactrim under the [facility] guidance for continued care. WBCs normal, afebrile but will check blood cultures. - Continue home Bactrim - Cultures negative so far (3) Hypothyroid: TSH was 2.5 this admission. - Continue home levothyroxine (4) Hypertension: BP 130/90 at present. - Continue home metoprolol (increased dose as above) and HCTZ (5) Hypercholesteremia: - Continue home atorvastatin (6) Diabetes: Type II. A1c is 6.0% this admission. - Hold metformin - Sliding scale insulin (7) Asthma: - Continue PRN albuterol and scheduled Singulair (8) Anxiety: - Continue home buspirone (9) Depression: - Continue home venlafaxine (10) Hypomagnesemia: Possibly due to HCTZ as this causes urinary magnesium wasting. Will hold at present. - Continue home magnesium - Replete with IV as needed - Held HCTZ on discharge given increased metoprolol. PCP can check labs in 1-2 weeks. (11) DVT prophylaxis: Eliquis Total Time Total Time Spent Total Time Spent (In Minutes): 35 Discharge Plan Discharge Items Patient Disposition: Home - Self-Care Reason For Visit: A FIB Discharge Diagnosis: Atrial fibrillation Activity: Resume your previous activity Non-emergency contact: Primary Care Provider and Commercial [employer] Underwriter Call non-emergency contact if: your symptoms worsen Follow-up/Referrals: Parveen Fishman MD [Primary Care Provider] - (Please see Dr. Fishman next week to update him on your medical issues.) Rob Martinez MD [Physician] - (Please see Dr. Martinez in 2-4 weeks for follow up.) Diet: Carb Consistent or DM2 and Heart Healthy Addtl Attending Provider Instructions: You were admitted with afib with rapid heart rate. Please take the amiodarone as this is the medication that helped the most with controlling your heart rate and may actually help you go back out of atrial fibrillation. We also: 1) Stopped your hydrochlorothiazide as this can lower your magnesium and cause your heart to have more trouble & 2) Increased your metoprolol to help slow your heart rate. Please call the cardiology office with any concerns and see your cytogenetic technician in 2-4 weeks. Pending Studies at Discharge: No Stand-Alone Forms: My [employer], Smoking Cessation Medications and DC Order Prescriptions: New amiodarone 200 mg tablet 200 mg PO BID Qty: 60 RF: 0 metoprolol succinate 100 mg tablet extended release 24 hr 100 mg PO DAILY Qty: 30 RF: 0 Continued cholecalciferol (vitamin D3) 1,000 unit capsule 1,000 units PO DAILY RF: 0 cyanocobalamin (vitamin B-12) 1,000 mcg capsule 1,000 mcg PO DAILY RF: 0 magnesium oxide 400 mg magnesium capsule 400 mg PO TID RF: 0 Eliquis 5 mg tablet 5 mg PO BID Qty: 180 RF: 3 buspirone 10 mg tablet 10 mg PO BID Qty: 60 RF: 5 montelukast 10 mg tablet 10 mg PO QPM Qty: 7 RF: 0 venlafaxine 150 mg capsule,extended release 24hr 150 mg PO QAM Qty: 30 RF: 5 metformin 1,000 mg tablet 1,000 mg PO BID Qty: 180 RF: 1 ibuprofen [Advil] 200 mg tablet 200 mg PO Q6H PRN (Reason: Pain) RF: 0 albuterol sulfate 90 mcg/actuation HFA aerosol inhaler 2 puffs inhalation Q4H PRN (Reason: shortness of breath or wheezing) Qty: 1 RF: 0 (DME) lancets [FreeStyle Lancets] 28 gauge misc See Dose Instructions .ROUTE .MEDSUPPLY Qty: 25 RF: 0 (DME) FreeStyle Lite Strips strip See Dose Instructions .ROUTE .MEDSUPPLY Qty: 10 RF: 0 sulfamethoxazole-trimethoprim [Bactrim DS] 800-160 mg tablet 1 tab PO BID Qty: 60 RF: 3 ondansetron 4 mg tablet,disintegrating 4 mg PO Q8H PRN (Reason: nausea and vomiting) Qty: 90 RF: 0 atorvastatin 40 mg tablet 40 mg PO QPM RF: 0 levothyroxine 100 mcg tablet 100 mcg PO QAM RF: 0 Discontinued metoprolol succinate 50 mg tablet extended release 24 hr 75 mg PO QAM RF: 0 hydrochlorothiazide 12.5 mg tablet 12.5 mg PO QAM RF: 0 Discharge Orders: Discharge Order (Routine); Ordered 08/05/19 Ordered By: Alton Rivas/Other Patient Handouts: Diabetes Type 2 Managing Admission Data Admit Date/Time: 08/02/19 13:37 Attending Provider: Alton Arias Admit Provider: Scooter Pinto Primary Care Provider: Parveen Fishman Other Providers: Alton Arias ; Parveen Harrington Other Interventions: Discharge Summary Assessment (RN) Last Done: 08/05/19 11:39 DC Date/Time DO NOT enter until pt leaves facility: 08/05/19 14:53 Coding Level of Care Code D/C Day Management >30 mins Diagnoses Atrial fibrillation with RVR I48.91 Chronic infection of knee joint prosthesis T84.59XA; Z96.659 Encounter type: initial encounter Hypothyroid E03.9 Hypothyroidism type: acquired Hypertension I10 Hypertension type: essential hypertension Hypercholesteremia E78.00 Diabetes E11.40 Diabetes mellitus type: type 2 Diabetes mellitus emt intermediate insulin use: without assisted use Diabetes mellitus complication status: with neurologic complications Diabetes mellitus complication detail: with unspecified neuropathy Asthma J45.20 Asthma severity: mild Asthma persistence: intermittent Asthma complication type: unspecified Anxiety F41.9 Depression F32.9 Depression Type: unspecified Hypomagnesemia E83.42 DVT prophylaxis Z29.9
== END 2019-08-05 14:53 | disposition home or self-care (01) | DRG 309 ==
LOC: ED 10:13 → 2S 13:37 → SUATTDRO 13:37 → 2S 14:01

== ENCOUNTER 2019-11-08 10:02 | Inpatient (IN) ==
--- NOTE | 2019-11-08 10:19 | Emergency Department Note ---
History of Present Illness General Chief complaint: Leg Injury/Pain Time Seen by Provider: 11/08/19 10:09 History of Present Illness Provider complaint: Fall. Left hip pain Onset (ago): hour(s) 1 Location: lower extremity and left Severity: severe Pain Consistency: + constant Current Pain Intensity: 8 Quality: + sharp Associated symptoms: no confusion, no chest pain and no shortness of breath 59-year-old female presents emergency department with left hip pain. Patient reports she fell approximately 1 hour ago while not using her walker in her apartment. She reports she is having pain in her left hip that is radiating to her left knee. She states she is unable to straighten her knee. Patient is on Eliquis. Home Medications Home Medications Medication Instructions Recorded Confirmed Type cholecalciferol (vitamin D3) 25 1,000 units PO 1200 12/24/17 11/08/19 History mcg (1,000 unit) capsule cyanocobalamin (vitamin B-12) 1,000 mcg PO 1200 12/24/17 11/08/19 History 1,000 mcg capsule ibuprofen 200 mg tablet 200 mg PO Q6H PRN 09/28/18 11/08/19 History magnesium oxide 400 mg PO TID cap 09/28/18 11/08/19 History apixaban 5 mg tablet 5 mg PO BID #180 tab 02/09/19 11/08/19 Rx buspirone 10 mg tablet 10 mg PO BID #60 tab 03/14/19 11/08/19 Rx montelukast 10 mg tablet 10 mg PO QPM #7 tab 04/13/19 11/08/19 Rx venlafaxine 150 mg 150 mg PO QAM #30 cap 06/15/19 11/08/19 Rx capsule,extended release 24 hr metformin 1,000 mg tablet 1,000 mg PO BID #180 tab 07/18/19 11/08/19 Rx sulfamethoxazole 800 1 tab PO BID #60 tab 08/02/19 11/08/19 Rx mg-trimethoprim 160 mg tablet metoprolol succinate 100 mg 100 mg PO BID #60 tab 08/18/19 11/08/19 Rx tablet,extended release 24 hr levothyroxine 100 mcg tablet 100 mcg PO QAM #90 tab 08/23/19 11/08/19 Rx albuterol sulfate 2 puffs INHALATION Q4H PRN 09/26/19 11/08/19 History amiodarone 200 mg PO QAM 09/26/19 11/08/19 History naproxen sodium [Aleve] 440 mg PO BID PRN 09/26/19 11/08/19 History diltiazem HCl 360 mg 360 mg PO DAILY #30 cap 10/10/19 11/08/19 Rx capsule,extended release 24 hr atorvastatin 40 mg tablet 40 mg PO QPM #90 tab 10/11/19 11/08/19 Rx Allergies Allergy/AdvReac Type Severity Reaction Status Date / Time Penicillins Allergy Unknown UNKNOWN Verified 10/28/19 09:40 bacitracin Allergy Unknown Verified 10/28/19 09:40 [From Neosporin ([id number])] neomycin Allergy Unknown Verified 10/28/19 09:40 [From Neosporin ([id number])] polymyxin B Allergy Unknown Verified 10/28/19 09:40 [From Neosporin ([id number])] Past Med/Surg History Medical History Acquired claw toe of left foot (Acute) Acquired hallux valgus of right foot (Acute) Acquired hammer toe of right foot (Acute) Acute renal failure "FROM A FALL." RESOLVED Anxiety (Chronic) Arterial hemorrhage (Acute) PT CANNOT RECALL Asthma (Chronic) RES INH USE DAILY/ NOT WELL CONTROLLED DURING ALLERGY SEASON Cellulitis of third toe, left (Resolved) Depression (Chronic) Diabetes mellitus with diabetic polyneuropathy (Acute) Diabetic foot infection (Resolved 08/25/13) BILAT> BOTH RESOLVED History of amputation of left great toe (Acute) History of cardioversion X2. LAST ONE APPROX 2014 Hypercholesteremia (Chronic) Hypertension (Chronic) Hypothyroidism Morbid obesity Osteoarthritis Osteomyelitis OF A TOE LEFT FOOT Paroxysmal a-fib ON ELIQUIS. S/P FAILED CARDIOVERSIONS X2. PER CARDIO NOT A CANDIDATE FOR ABLATION. RATE HAS BEEN DIFFICULT TO CONTROL AT TIMES, BUT PER MOST RECENT CARDIO NOTE 09/2019, RATE IMPROVED WITH ADDITION OF DILTIAZEM. PT IS ASYMPTOMATIC. Patellar fracture Sleep apnea NO CPAP Surgical History History of amputation of lesser toe of left foot (Acute) History of amputation of lesser toe of right foot (Acute) History of colonoscopy History of dilatation and curettage History of esophagogastroduodenoscopy (EGD) History of right knee surgery REPLACEMENT > ON BACTRIM FOR INFECTED HARDWARE. SURGERY PENDING APPROX 6 MOS Family History Sister Breast cancer Father Diabetes Hypertension Other Family history non-contributory Heart disease Social History Smoking Status: Former smoker Number of Years Since Quit: 5; Second Hand Exposure: No; Hx Alcohol Use: Yes Alcohol type: hard liquor Hx Substance Use: No Preferred Language: Azeri Communication Ability: Effective Care Partner Required: No Beliefs That Will Affect Care: None marital status: Single Current Living Situation: Alone Feels Safe at Home: Yes Safety Concerns: Feels Safe At This Time Review of Systems A total of 10 systems reviewed and were otherwise negative Physical Exam Vital Signs Vital Signs - 24 hr 11/08/19 10:15 11/08/19 11:29 11/08/19 13:20 Pulse Rate 70 Pulse Rate [Apical] 60 62 Respiratory Rate 18 20 16 Blood Pressure 120/70 Blood Pressure [Right Arm] 143/85 H 135/93 Blood Pressure Mean 86 Blood Pressure Mean [Right Arm] 104 107 Pulse Oximetry 97 Oxygen Delivery Method Room Air Sepsis Recent Fever Within 48 Hours No Sepsis New/Unexplained Change in Mental Status N/A Sepsis Action Taken by Nursing No Action Required Physical Exam GENERAL: She is oriented to person, place, and time. She appears well-developed and well-nourished. She does not appear distressed. HENT: Exam performed. -Head: Normocephalic and atraumatic. -Right Ear: External ear normal. No mastoid tenderness. -Left Ear: External ear normal. No mastoid tenderness. -Mouth/Throat: The oropharynx is clear and moist. No trismus in the jaw. No dental abscesses or uvula swelling. No oropharyngeal exudate or tonsillar abscesses. EYES: Conjunctivae and EOM are normal. Pupils are equal, round, and reactive to light. Right eye exhibits no discharge. Left eye exhibits no discharge. No scleral icterus. NECK: Normal range of motion. Neck supple. No JVD present. No spinous process tenderness present. No carotid bruit present. No rigidity. No tracheal deviation and normal range of motion present. No Brudzinski's sign and no Kernig's sign noted. CV: Normal rate, regular rhythm, normal heart sounds and intact distal pulses. There is no peripheral edema. Palpable radial pulses bue. PULM/CHEST: Effort normal and breath sounds normal. No respiratory distress. No stridor. She has no wheezes. She has no rales. -Chest Wall: She exhibits no tenderness. ABD: The abdomen is soft. Morbidly obese. Pain on palpation of the left lower quadrant. MUSC/SKEL: Pain on palpation in the left hip, left proximal and distal femur, as well as left knee. LYMPH: No cervical adenopathy. NEURO: She is alert and oriented to person, place, and time. No cranial nerve deficit or sensory deficit. GCS eye subscore is 4. GCS verbal subscore is 5. GCS motor subscore is 6. SKIN: Ecchymosis over the left hip and abrasion to the left lower extremity. PSYCH: She has a normal mood and affect. Behavior is normal. Judgment and thought content normal. Course Course 1009: The patient was evaluated in room A3. A complete history and physical exam was performed. Cardiac monitoring: An order was placed for continuous cardiac monitoring. The monitor shows a rate of 60 with sinus rhythm 1018: X-ray reviewed by me showed left hip/femur fracture. Hip fracture order set placed. 1237: Vital signs stable. Patient's pain controlled after 1 mg of Dilaudid. Labs show a sodium of 123. No other traumatic injury rather than the left hip/femur fracture. I did attempt as discussed the case with Dr. Guzman, the patient's orthopedist however he is scrubbed up in surgery. Health systemist team was made aware of the patient and will admit the patient primarily with Dr. Guzman on consult. Dr. Escudero notified. Administered Medications Hydromorphone HCl (Dilaudid) 0.25 - 0.5 mg IV Q20M PRN PRN Reason: Moderate/Severe Pain Stop: 11/22/19 16:20 Last Admin: 11/08/19 16:35 Dose: 0.5 mg Documented by: [id number] Sodium Chloride (Nss 1000ml) 1,000 mls @ 125 mls/hr IV .Q8H BRIANDA Stop: 11/08/19 18:44 Last Admin: 11/08/19 11:20 Dose: 75 mls/hr Documented by: [id number] Sodium Chloride (Nss 1000ml) 1,000 mls @ 125 mls/hr IV .Q8H BRIANDA Stop: 12/08/19 16:20 Last Admin: 11/08/19 16:36 Dose: 125 mls/hr Documented by: [id number] Oxycodone HCl (Roxicodone Immediate Rel) 10 mg PO Q4H PRN PRN Reason: SEVERE Pain (Scale 7,8,9,10) Stop: 11/22/19 16:20 Last Admin: 11/08/19 17:09 Dose: 10 mg Documented by: [id number] Discontinued Medications Diltiazem HCl (Dilacor Xr) 120 mg PO ONE STA Stop: 11/08/19 13:48 Last Admin: 11/08/19 14:32 Dose: 120 mg Documented by: [id number] Hydromorphone HCl (Dilaudid) 1 mg IV NOW STA Stop: 11/08/19 10:45 Last Admin: 11/08/19 11:19 Dose: 1 mg Documented by: [id number] Ioversol (Optiray 320 125ml) 118 ml IV ONCE ONE Stop: 11/08/19 12:11 Last Admin: 11/08/19 12:10 Dose: 118 ml Documented by: [id number] Metoprolol Succinate (Toprol Xl) 50 mg PO NOW STA Stop: 11/08/19 13:48 Last Admin: 11/08/19 14:32 Dose: 50 mg Documented by: [id number] Ondansetron HCl (Zofran) 4 mg IV NOW STA Stop: 11/08/19 10:45 Last Admin: 11/08/19 11:20 Dose: 4 mg Documented by: [id number] Medical Decision Making Laboratory Data Result diagrams: 11/08/19 10:52 11/08/19 10:52 Lab Results 11/08/19 11/08/19 11/08/19 Range/Units 10:51 10:52 10:52 WBC 9.68 (4.8-10.8) K/uL RBC 2.86 L (4.2-5.4) M/uL Hgb 8.6 L (12.0-16.0) g/dL POC Hgb (12.0-16.0) g/dl Hct 26.9 L (37-47) % POC Hct (37-47) % MCV 94.1 (80-100) fL MCH 30.1 (25-34) pg MCHC 32.0 (32-36) g/dL RDW Std Deviation 50.5 H (36.4-46.3) fL RDW Coeff of Yazmin 14.7 H (11.5-14.5) % Plt Count 291 (130-400) K/uL MPV 9.6 (7.4-10.4) fL Immature Gran % (Auto) 0.3 % Neut % (Auto) 87.2 % Lymph % (Auto) 6.0 % Talbot % (Auto) 6.0 % Eos % (Auto) 0.4 % Baso % (Auto) 0.1 % Neut # (Auto) 8.44 H (1.4-6.5) K/uL Lymph # (Auto) 0.58 L (1.2-3.4) K/uL [place] # (Auto) 0.58 (0.11-0.59) K/uL Eos # (Auto) 0.04 (0-0.5) K/uL Baso # (Auto) 0.01 (0-0.2) K/uL Immature Gran # (Auto) 0.03 H (0.00-0.02) K/uL PT 12.4 H (9.0-12.0) Seconds INR 1.2 H (0.9-1.1) APTT 29.5 (21.0-31.0) Seconds PTT Ratio 1.1 POC Sodium (135-144) mmol/L Sodium (136-145) mmol/L POC Potassium (3.3-5.0) mmol/L Potassium (3.5-5.1) mmol/L POC Chloride (101-112) mmol/L Chloride (98-107) mmol/L Carbon Dioxide (21-32) mmol/L POC Total CO2 (24-31) mmol/L Anion Gap (3-11) POC Anion Gap (16-25) mmol/L POC BUN (7-18) mg/dl BUN (7-18) mg/dl Creatinine (0.6-1.2) mg/dl POC Creatinine (0.6-1.3) mg/dl Est Cr Clr Drug Dosing ml/min Est GFR ( Amer) Est GFR (Non-Af Amer) BUN/Creatinine Ratio (10-20) Glucose (70-99) mg/dl POC Glucose (other) (70-99) mg/dl Osmolality (280-300) mOsm/kg Calcium (8.5-10.1) mg/dl POC Ioniz Calcium Leny (1.12-1.32) mmol/l TSH 2.910 (0.300-4.500) uIu/ml Urine Color Urine Appearance (Clear) Urine pH (4.5-7.5) Ur Specific [place] (1.000-1.030) Urine Protein (Negative) Urine Glucose (UA) (Negative) Urine Ketones (Negative) Urine Blood (Negative) Urine Nitrite (Negative) Urine Bilirubin (Negative) Urine Urobilinogen (Negative) Ur Leukocyte Esterase (Negative) Urine WBC (Auto) (0-5) /hpf Urine RBC (Auto) (0-4) /hpf U Hyaline Cast (Auto) U Epithel Cells (Auto) (0-5) /lpf Urine Bacteria (Auto) (Negative) Ur Renal Epithelial Cell (0-5) /lpf Blood Type Antibody Screen 11/08/19 11/08/19 11/08/19 Range/Units 10:52 10:52 10:59 WBC (4.8-10.8) K/uL RBC (4.2-5.4) M/uL Hgb (12.0-16.0) g/dL POC Hgb (12.0-16.0) g/dl Hct (37-47) % POC Hct (37-47) % MCV (80-100) fL MCH (25-34) pg MCHC (32-36) g/dL RDW Std Deviation (36.4-46.3) fL RDW Coeff of Yazmin (11.5-14.5) % Plt Count (130-400) K/uL MPV (7.4-10.4) fL Immature Gran % (Auto) % Neut % (Auto) % Lymph % (Auto) % [place] % (Auto) % Eos % (Auto) % Baso % (Auto) % Neut # (Auto) (1.4-6.5) K/uL Lymph # (Auto) (1.2-3.4) K/uL [place]bot # (Auto) (0.11-0.59) K/uL Eos # (Auto) (0-0.5) K/uL Baso # (Auto) (0-0.2) K/uL Immature Gran # (Auto) (0.00-0.02) K/uL PT (9.0-12.0) Seconds INR (0.9-1.1) APTT (21.0-31.0) Seconds PTT Ratio POC Sodium (135-144) mmol/L Sodium 123 L (136-145) mmol/L POC Potassium (3.3-5.0) mmol/L Potassium 4.6 (3.5-5.1) mmol/L POC Chloride (101-112) mmol/L Chloride 90 L (98-107) mmol/L Carbon Dioxide 24 (21-32) mmol/L POC Total CO2 (24-31) mmol/L Anion Gap 9.0 (3-11) POC Anion Gap (16-25) mmol/L POC BUN (7-18) mg/dl BUN 10 (7-18) mg/dl Creatinine 0.74 (0.6-1.2) mg/dl POC Creatinine (0.6-1.3) mg/dl Est Cr Clr Drug Dosing 119.5 ml/min Est GFR ( Amer) 104.2 Est GFR (Non-Af Amer) 89.9 BUN/Creatinine Ratio 14.0 (10-20) Glucose 86 (70-99) mg/dl POC Glucose (other) (70-99) mg/dl Osmolality 254 L (280-300) mOsm/kg Calcium 8.2 L (8.5-10.1) mg/dl POC Ioniz Calcium Leny (1.12-1.32) mmol/l TSH (0.300-4.500) uIu/ml Urine Color Urine Appearance (Clear) Urine pH (4.5-7.5) Ur Specific [place] (1.000-1.030) Urine Protein (Negative) Urine Glucose (UA) (Negative) Urine Ketones (Negative) Urine Blood (Negative) Urine Nitrite (Negative) Urine Bilirubin (Negative) Urine Urobilinogen (Negative) Ur Leukocyte Esterase (Negative) Urine WBC (Auto) (0-5) /hpf Urine RBC (Auto) (0-4) /hpf U Hyaline Cast (Auto) U Epithel Cells (Auto) (0-5) /lpf Urine Bacteria (Auto) (Negative) Ur Renal Epithelial Cell (0-5) /lpf Blood Type O Positive Antibody Screen NEGATIVE 11/08/19 11/08/19 Range/Units 11:05 11:30 WBC (4.8-10.8) K/uL RBC (4.2-5.4) M/uL Hgb (12.0-16.0) g/dL POC Hgb 9.5 L (12.0-16.0) g/dl Hct (37-47) % POC Hct 28 L (37-47) % MCV (80-100) fL MCH (25-34) pg MCHC (32-36) g/dL RDW Std Deviation (36.4-46.3) fL RDW Coeff of Yazmin (11.5-14.5) % Plt Count (130-400) K/uL MPV (7.4-10.4) fL Immature Gran % (Auto) % Neut % (Auto) % Lymph % (Auto) % [place] % (Auto) % Eos % (Auto) % Baso % (Auto) % Neut # (Auto) (1.4-6.5) K/uL Lymph # (Auto) (1.2-3.4) K/uL [place] # (Auto) (0.11-0.59) K/uL Eos # (Auto) (0-0.5) K/uL Baso # (Auto) (0-0.2) K/uL Immature Gran # (Auto) (0.00-0.02) K/uL PT (9.0-12.0) Seconds INR (0.9-1.1) APTT (21.0-31.0) Seconds PTT Ratio POC Sodium 119 L* (135-144) mmol/L Sodium (136-145) mmol/L POC Potassium 4.6 (3.3-5.0) mmol/L Potassium (3.5-5.1) mmol/L POC Chloride 85 L (101-112) mmol/L Chloride (98-107) mmol/L Carbon Dioxide (21-32) mmol/L POC Total CO2 23 L (24-31) mmol/L Anion Gap (3-11) POC Anion Gap 16.0 (16-25) mmol/L POC BUN 10 (7-18) mg/dl BUN (7-18) mg/dl Creatinine (0.6-1.2) mg/dl POC Creatinine 0.7 (0.6-1.3) mg/dl Est Cr Clr Drug Dosing ml/min Est GFR ( Amer) Est GFR (Non-Af Amer) BUN/Creatinine Ratio (10-20) Glucose (70-99) mg/dl POC Glucose (other) 92 (70-99) mg/dl Osmolality (280-300) mOsm/kg Calcium (8.5-10.1) mg/dl POC Ioniz Calcium Leny 1.08 L (1.12-1.32) mmol/l TSH (0.300-4.500) uIu/ml Urine Color Yellow Urine Appearance Cloudy A (Clear) Urine pH 5.0 (4.5-7.5) Ur Specific [place] 1.018 (1.000-1.030) Urine Protein Trace H (Negative) Urine Glucose (UA) Negative (Negative) Urine Ketones Trace H (Negative) Urine Blood Negative (Negative) Urine Nitrite Positive A (Negative) Urine Bilirubin Negative (Negative) Urine Urobilinogen Negative (Negative) Ur Leukocyte Esterase 1+ H (Negative) Urine WBC (Auto) 10-30 H (0-5) /hpf Urine RBC (Auto) 0-4 (0-4) /hpf U Hyaline Cast (Auto) Not Reportable U Epithel Cells (Auto) >30 H (0-5) /lpf Urine Bacteria (Auto) 4+ H (Negative) Ur Renal Epithelial Cell 0-5 (0-5) /lpf Blood Type Antibody Screen Imaging Data Radiologist's Impression: XR pelvis 1-2V routine CLINICAL HISTORY: Pain status post trauma COMPARISON: None DISCUSSION: There is an acute proximal left femoral fracture with intertr ochanteric extension. There is no dislocation. IMPRESSION: Acute proximal left femoral fracture with intertrochanteric extension. ACT 112: Negative or not required by law. Electronically signed by: Ben Wang M.D. 11/08/2019 10:57 AM Dictated: 11/08/19 1056 Transcribed: 11/08/19 1056 XR knee LT 1 or 2V routine CLINICAL HISTORY: Knee pain status post trauma COMPARISON: 2018 DISCUSSION: There are advanced osteoarthritic changes present within the left knee. There is mild lateral translation of the tibia with respect to the femur. There are exuberant dorsal patellar spurs. There is a small joint effusion. The examination is somewhat limited from a positioning standpoint. IMPRESSION: 1. Advanced osteoarthritic changes 2. Mild lateral translation of the tibia with respect to the femur. 3. No acute fractures identified ACT 112: Negative or not required by law. Electronically signed by: Ben Wang M.D. 11/08/2019 11:01 AM Dictated: 11/08/19 1100 Transcribed: 11/08/[address] head/brain wo con CT DOSE: HISTORY: Trauma. Mental status change. fall on eliquis TECHNIQUE: Multiaxial CT images of the head were performed without the use of intravenous contrast. A dose lowering technique was utilized adhering to the principles of ALARA. Comparison: 02/02/2018 Findings: The paranasal sinuses and mastoid air cells are clear. The calvarium and skull base are intact. The ventricles and sulci are within normal limits. There is no mass, hematoma, midline shift, or acute infarct. Impression: No acute intracranial abnormality. ACT 112: Negative or not required by law. The above report was generated using voice recognition software. It may contain grammatical, syntax or spelling errors. Electronically signed by: Gerardo Moss M.D. 11/08/2019 12:26 PM Dictated: 11/08/19 1225 Transcribed: 11/08/19 1225 XR femur LT 2V routine HISTORY: 59 years-old Female fall on eliquis acute left hip pain status post fall COMPARISON: Pelvis radiograph 11/08/2019 TECHNIQUE: 2 views of the left femur FINDINGS: There is an acute comminuted fracture of the proximal left femur which involves the intertrochanteric and subtrochanteric distributions. Medial displacement of the greater trochanteric fracture fragment measures up to 4 cm. Mid and distal femur appear intact. There is severe tricompartmental osteoarthritis of the knee. Demineralized appearance of the bones. IMPRESSION: Acute comminuted and displaced fracture of the proximal left femur as above. ACT 112: Negative or not required by law. The above report was generated using voice recognition software. It may contain grammatical, syntax or spelling errors. Electronically signed by: Kirby Burroughs M.D. 11/08/2019 10:59 AM Dictated: 11/08/19 1057 Transcribed: 11/08/19 105 XR chest 1V portable CLINICAL HISTORY: Trauma. Patient on blood thinners. COMPARISON STUDY: 09/26/2019 FINDINGS: The heart is enlarged. There is no overt failure. No pneumothorax is visualized on the supine study. There is no evidence of focal pulmonary consolidation[ IMPRESSION: Cardiomegaly. No acute findings. ACT 112: Negative or not required by law. Electronically signed by: Ben Wang M.D. 11/08/2019 10:56 AM Dictated: 11/08/19 1055 Transcribed: 11/08/[address] cervical spine wo con CT DOSE: HISTORY: Trauma fall on eliquis TECHNIQUE: Multiaxial CT images of the cervical spine were performed and reformatted in the sagittal and coronal plane without the use of contrast. A dose lowering technique was utilized adhering to the principles of ALARA. COMPARISON: None. FINDINGS: No fractures. No subluxation. Prevertebral soft tissues and the C1-C2 interval are intact. No pneumothorax. IMPRESSION: No fractures within the cervical spine. Moderate generalized degenerative change. ACT 112: Negative or not required by law. The above report was generated using voice recognition software. It may contain grammatical, syntax or spelling errors. Electronically signed by: Gerardo Moss M.D. 11/08/2019 12:30 PM Dictated: 11/08/19 1229 Transcribed: 11/08/19 [address] WITH IV CONTRAST CT DOSE: 4018.13 mGy.cm HISTORY: Acute left hip and left lower quadrant abdominal pain status post fall fall on eliquis L hip pain LLQ pain TECHNIQUE: Multiaxial CT images of the abdomen and pelvis were performed following the IV administration of 118 cc of Optiray 320, A dose lowering technique was utilized adhering to the principles of ALARA. COMPARISON STUDY: CT abdomen and pelvis 07/18/2018, left pelvis and femur radiographs 11/08/2019 FINDINGS: Moderate cardiomegaly. Mitral annular calcifications. Mild dependent bibasilar atelectasis. No pneumatosis or pneumoperitoneum. The spleen, pancreas and adrenal glands are unremarkable. The gallbladder is also within normal limits. There is equivocal marginal nodularity of the liver. No hepatic mass lesion identified. Mild heterogeneity of the pancreatic parenchyma. Mild nonspecific bilateral perinephric stranding. No obstructive uropathy. Partial distention of the urinary bladder with Cordero catheter. Nondependent air within the urinary bladder lumen is likely secondary to instrumentation. Fibroid uterus with partially calcified right fundal fibroid, 3.8 cm. No aortic aneurysm or adenopathy. There is no bowel obstruction or bowel wall thickening. Mild colonic diverticulosis. The appendix is not definitively seen. Moderate body wall edema. Diastases recti. There is moderate asymmetric enlargement of the left proximal thigh musculature with likely intramuscular hematoma surrounding the acute, comminuted and displaced proximal left femoral fracture which involves the intertrochanteric and subtrochanteric distributions. No dislocation. The femoral head and acetabulum appear intact. Degenerative changes are noted within the lumbar spine. There are multiple healed remote bilateral rib fractures. No additional acute fracture identified. IMPRESSION: 1. Acute, comminuted and displaced fracture of the proximal left femur involves the intertrochanteric and subtrochanteric distributions. Moderate enlargement and heterogeneity of the proximal left thigh musculature is suggestive of pro bable hematoma. 2. No acute intra-abdominal or intrapelvic abnormality. 3. Moderate body wall edema, unchanged. 4. Additional findings as above. ACT 112: Negative or not required by law. The above report was generated using voice recognition software. It may contain grammatical, syntax or spelling errors. Electronically signed by: Kirby Burroughs M.D. 11/08/2019 12:34 PM Dictated: 11/08/19 1228 Transcribed: 11/08/19 1228 ECG Data Indication: + other (Preop) Rate (beats per minute): 70 Rhythm: + atrial fibrillation ECG Intervals/blocks: + Normal QRS and + Normal QT-c ECG ST segments: + Normal ST segments MDM Narrative 1009: The patient was evaluated in room A3. A complete history and physical exam was performed. Cardiac monitoring: An order was placed for continuous cardiac monitoring. The monitor shows a rate of 60 with sinus rhythm 1018: X-ray reviewed by me showed left hip/femur fracture. Hip fracture order set placed. 1237: Vital signs stable. Patient's pain controlled after 1 mg of Dilaudid. Labs show a sodium of 123. No other traumatic injury rather than the left hip/femur fracture. I did attempt as discussed the case with Dr. Guzman, the patient's orthopedist however he is scrubbed up in surgery. Health systemist team was made aware of the patient and will admit the patient primarily with Dr. Guzman on consult. Dr. Escudero notified. Impression & Plan Closed femur fracture Discharge Plan Visit Data *Final* Discharge Date/Time: 11/08/19 14:57 Chief Complaint: Leg Injury/Pain ED Provider: Sam Toscano Discharge Problem: Closed femur fracture Patient Disposition: Admitted As Inpatient Discharge Instructions Interventions: ED Discharge Assessment Last Done: 11/08/19 14:57 Discharge Problem: Closed femur fracture Qualifiers: Encounter type: initial encounter Femur location: unspecified portion of femur Fracture morphology: unspecified fracture morphology Laterality: left Qualified Code(s): S72.92XA - Unspecified fracture of left femur, initial encounter for closed fracture
[2019-11-08] MEDS ORDERED: ONDANSETRON INJ 2 MG/ML 2 ML VIAL IV STA (10:44)
[2019-11-08] MEDS ORDERED: HYDROmorphone INJ 1 MG/ML SYRINGE IV STA (10:44)
[2019-11-08] MEDS ORDERED: SODIUM CHLORIDE 0.9% 1000ML 1,000 ML IV SCH (10:45)
--- NOTE | 2019-11-08 10:57 | XRay Report ---
XR chest 1V portable CLINICAL HISTORY: Trauma. Patient on blood thinners. COMPARISON STUDY: 09/26/2019 FINDINGS: The heart is enlarged. There is no overt failure. No pneumothorax is visualized on the supi ne study. There is no evidence of focal pulmonary consolidation[ IMPRESSION: Cardiomegaly. No acute findings. ACT 112: Negative or not required by law. Electronically signed by: Ben Wang M.D. 11/08/2019 10:56 AM
--- NOTE | 2019-11-08 10:58 | XRay Report ---
XR pelvis 1-2V routine CLINICAL HISTORY: Pain status post trauma COMPARISON: None DISCUSSION: There is an acute proximal left femoral fracture with intertrochanteric extension. There is no dislocation. IMPRESSION: Acute proximal left femoral fracture with intertrochanteric extension. ACT 112: Negative or not required by law. Electronically signed by: Ben Wang M.D. 11/08/2019 10:57 AM
--- NOTE | 2019-11-08 11:00 | XRay Report ---
XR femur LT 2V routine HISTORY: 59 years-old Female fall on eliquis acute left hip pain status post fall COMPARISON: Pelvis radiograph 11/08/2019 TECHNIQUE: 2 views of the left femur FINDINGS: There is an acute comminuted fracture of the proximal left femur which involves the intertrochanteric and subtrochanteric distributions. Medial displacement of the greater trochanteric fracture fragment measures up to 4 cm. Mid and distal femur appear intact. There is severe tricompartmental osteoarthr itis of the knee. Demineralized appearance of the bones. IMPRESSION: Acute comminuted and displaced fracture of the proximal left femur as above. ACT 112: Negative or not required by law. The above report was generated using voice recognition software. It may contain grammatical, syntax o r spelling errors. Electronically signed by: Kirby Burroughs M.D. 11/08/2019 10:59 AM
--- NOTE | 2019-11-08 11:03 | XRay Report ---
XR knee LT 1 or 2V routine CLINICAL HISTORY: Knee pain status post trauma COMPARISON: 2018 DISCUSSION: There are advanced osteoarthritic changes present within the left knee. There is mild lat eral translation of the tibia with respect to the femur. There are exuberant dorsal patellar spurs. T here is a small joint effusion. The examination is somewhat limited from a positioning standpoint. IMPRESSION: 1. Advanced osteoarthritic changes 2. Mild lateral translation of the tibia with respect to the femur. 3. No acute fractures identified ACT 112: Negative or not required by law. Electronically signed by: Ben Wang M.D. 11/08/2019 11:01 AM
[2019-11-08 11:07] LABS: Basophils # (auto) 0.01 K/uL (0-0.2); Basophils % (auto) 0.1 %; Eosinophils # (auto) 0.04 K/uL (0-0.5); Eosinophils % (auto) 0.4 %; Hematocrit (blood only) 26.9 % (37-47); Hemoglobin 8.6 g/dL (12.0-16.0); Immature Granulocytes # (auto) 0.03 K/uL (0.00-0.02); Immature Granulocytes % (auto) 0.3 %; Lymphocytes # (auto) 0.58 K/uL (1.2-3.4); Mean Corpuscular Hemoglobin 30.1 pg (25-34); Mean Corpuscular Volume 94.1 fL (80-100); Mean Platelet Volume 9.6 fL (7.4-10.4); Monocytes # (auto) 0.58 K/uL (0.11-0.59); Neutrophils # (auto) 8.44 K/uL (1.4-6.5); Neutrophils % (auto) 87.2 %; Platelet Count 291 K/uL (130-400); RDW Coefficient of Variation 14.7 % (11.5-14.5); RDW Standard Deviation 50.5 fL (36.4-46.3); Red Blood Count 2.86 M/uL (4.2-5.4); White Blood Count 9.68 K/uL (4.8-10.8)
[2019-11-08 11:17] LABS: INR 1.2 (0.9-1.1); Partial Thromboplastin Ratio 1.1; Partial Thromboplastin Time 29.5 Seconds (21.0-31.0); Prothrombin Time 12.4 Seconds (9.0-12.0)
[2019-11-08 11:24] LABS: Calcium 8.2 mg/dl (8.5-10.1); Creatinine Clr Calc Pharmacy 119.5 ml/min; Est GFR (African American) 104.2; Est GFR (Non-African American) 89.9; Potassium 4.6 mmol/L (3.5-5.1)
[2019-11-08 11:43] LABS: Appearance Urine Cloudy (Clear); Bacteria Urine Automated 4+ (Negative); Bilirubin Urine Negative (Negative); Blood Urine Negative (Negative); Color Urine Yellow; Epithelial Cell Urine Auto >30 /lpf (0-5); Glucose Urine UA Negative (Negative); Ketones Urine Trace (Negative); Leukocyte Esterase Urine 1+ (Negative); Nitrite Urine Positive (Negative); Protein Urine Trace (Negative); RBC Urine Automated 0-4 /hpf (0-4); Specific Gravity Urine 1.018 (1.000-1.030); Urobilinogen Urine Negative (Negative)
[2019-11-08 11:57] LABS: Renal Epithelial Cells Urine 0-5 /lpf (0-5)
[2019-11-08] MEDS ORDERED: OPTIRAY 320 125ml IV ONE (12:10)
--- NOTE | 2019-11-08 12:28 | CT Scan Report ---
CT head/brain wo con CT DOSE: HISTORY: Trauma. Mental status change. fall on eliquis TECHNIQUE: Multiaxial CT images of the head were performed without the use of intravenous contrast. A dose lowering technique was utilized adhering to the principles of ALARA. Comparison: 02/02/2018 Findings: The paranasal sinuses and mastoid air cells are clear. The calvarium and skull base are int act. The ventricles and sulci are within normal limits. There is no mass, hematoma, midline shift, or acute infarct. Impression: No acute intracranial abnormality. ACT 112: Negative or not required by law. The above report was generated using voice recognition software. It may contain grammatical, syntax or spelling errors. Electronically signed by: Gerardo Moss M.D. 11/08/2019 12:26 PM
--- NOTE | 2019-11-08 12:31 | CT Scan Report ---
CT cervical spine wo con CT DOSE: HISTORY: Trauma fall on eliquis TECHNIQUE: Multiaxial CT images of the cervical spine were performed and reformatted in the sagittal and coronal plane without the use of contrast. A dose lowering technique was utilized adhering to th e principles of ALARA. COMPARISON: None. FINDINGS: No fractures. No subluxation. Prevertebral soft tissues and the C1-C2 interval are intact. No pneumothorax. IMPRESSION: No fractures within the cervical spine. Moderate generalized degenerative change. ACT 112: Negative or not required by law. The above report was generated using voice recognition software. It may contain grammatical, syntax or spelling errors. Electronically signed by: Gerardo Moss M.D. 11/08/2019 12:30 PM
--- NOTE | 2019-11-08 12:35 | CT Scan Report ---
ABDOMEN AND PELVIS CT WITH IV CONTRAST CT DOSE: 4018.13 mGy.cm HISTORY: Acute left hip and left lower quadrant abdominal pain status post fall fall on eliquis L hi p pain LLQ pain TECHNIQUE: Multiaxial CT images of the abdomen and pelvis were performed following the IV administrat ion of 118 cc of Optiray 320, A dose lowering technique was utilized adhering to the principles of A HEATHER. COMPARISON STUDY: CT abdomen and pelvis 07/18/2018, left pelvis and femur radiographs 11/08/2019 FINDINGS: Moderate cardiomegaly. Mitral annular calcifications. Mild dependent bibasilar atelectasis. No pneuma tosis or pneumoperitoneum. The spleen, pancreas and adrenal glands are unremarkable. The gallbladder is also within normal limits. There is equivocal marginal nodularity of the liver. No hepatic mass le sj identified. Mild heterogeneity of the pancreatic parenchyma. Mild nonspecific bilateral perinephric stranding. No obstructive uropathy. Partial distention of the urinary bladder with Cordero catheter. Nondependent air within the urinary bladder lumen is likely seco ndary to instrumentation. Fibroid uterus with partially calcified right fundal fibroid, 3.8 cm. No ao rtic aneurysm or adenopathy. There is no bowel obstruction or bowel wall thickening. Mild colonic diverticulosis. The appendix is not definitively seen. Moderate body wall edema. Diastases recti. There is moderate asymmetric enlarg ement of the left proximal thigh musculature with likely intramuscular hematoma surrounding the acute , comminuted and displaced proximal left femoral fracture which involves the intertrochanteric and canela btrochanteric distributions. No dislocation. The femoral head and acetabulum appear intact. Degenerat onelia changes are noted within the lumbar spine. There are multiple healed remote bilateral rib fractur es. No additional acute fracture identified. IMPRESSION: 1. Acute, comminuted and displaced fracture of the proximal left femur involves the intertrochanteric and subtrochanteric distributions. Moderate enlargement and heterogeneity of the proximal left thigh musculature is suggestive of probable hematoma. 2. No acute intra-abdominal or intrapelvic abnormality. 3. Moderate body wall edema, unchanged. 4. Additional findings as above. ACT 112: Negative or not required by law. The above report was generated using voice recognition software. It may contain grammatical, syntax o r spelling errors. Electronically signed by: Kirby Burroughs M.D. 11/08/2019 12:34 PM
[2019-11-08 12:52] LABS: iSTAT Creatinine 0.7 mg/dl (0.6-1.3); iSTAT Hemoglobin 9.5 g/dl (12.0-16.0); iSTAT Ionized Calcium 1.08 mmol/l (1.12-1.32); iSTAT Potassium 4.6 mmol/L (3.3-5.0)
--- NOTE | 2019-11-08 13:29 | History & Physical Report ---
Date of Service November 08, 2019 Assessment & Plan (1) Closed fracture of proximal end of left femur: With intertrochanteric extension. Cordero cath placed Pain relief with oxycodone/Dilaudid Patient request surgery tomorrow and given Eliquis use and hyponatremia recommend surgery is deferred to tomorrow if possible. Will keep NPO until assessed by orthopedics however. Consult her usual orthopedic surgeon Dr Guzman -> will defer traction to orthopedics (2) Atrial fibrillation: Appears to be persistent at this stage. Patient did not take her usual metoprolol, diltiazem and amiodarone this morning. Will give lower dose diltiazem and metoprolol now given current good rate control and normal BP and resume her usual regimen tonight. Anticoagulation on hold pending hip operation (3) Asymptomatic bacteriuria: Although usually would not treat this; in setting of a patient with chronically infected right TKA and requiring a hip operation will start 2g IV ceftriaxone to cover in case of a true infection. Follow up urine/blood cultures (4) VALERIE (obstructive sleep apnea): Pt refusing CPAP @ sanitary aide for nocturnal hypoxia and treat with oxygen via nasal cannula (5) Hypothyroid: Repeat TSH given prior elevation of this. Continue her usual levothyroxine 100 mcg p.o. daily (6) Alcohol use: Monitor for alcohol withdrawal ?cause of hyponatremia (7) Acute hyponatremia: Suspected high fluid, low protein diet especially with alcohol and seltzer use. Although unclear why this is acute given patient history she has not recently changed her habits. Serum osm, Urine osm and Na added to further assess. Continue NSS @ 125 ml/hr and repeat later this evening to assess trend. (8) Anemia: Suspect combination of NSAIDs and Eliquis use. No melena or bright red blood in stool to suggest acute GI bleed. Prior severe iron deficiency anemia in July 2018 with normal EGD colonoscopy at that time. Holding further NSAIDs and Eliquis Type and screen performed. Continue to monitor CBC. (9) Depression: Continue venlafaxine ER 150 mg p.o. daily Continue buspirone 10 mg p.o. twice daily (10) Anxiety: as above (11) Chronic infection of knee joint prosthesis: Continue her chronic Bactrim for chronic suppression (12) Diabetes: HbA1C 6.0 in July. No suggestion she required insulin on admission. Repeat HbA1c with a.m. labs months fasting glucose. Start diabetic diet (13) DVT prophylaxis: Resume Eliquis once cleared by surgery Admission and Anticipated Discharge Date Admission Date: 11/08/2019 History of Present Illness Primary Care Provider: Parveen Fishman MD Gillian Rouse is a 59 year old female who presents to the ER after a fall at home. She reports since Thursday her left upper leg has been causing pain. She had been relating this to a muscle spasm/strain and taking Aleve with her Xarelto despite knowing increased risk of bleeding with this. She also has chronic arthritis in her left knee with what she describes as a meniscal tear. She tried staying off her leg most of the weekend but today stood up trying to walk and her left leg felt very weak and it "gave out" and she fell backwards onto the floor. No dizziness, chest pain or shortness of breath. No prior history of ost eoporosis. Last drank small cup of water with her thyroid medication at 7:30am. Last ate last night. Last took Eliquis 10pm yesterday. Only pill she took this morning was levothyroxine. She also notes a history of drinking 2-3 vodkas/day due to her chronic pains and helps her to relax. She denies any history of withdrawals or seizures. Former smoker quit 5-6 years ago. Tried calling her sister over the phone but without answer. In the ER she was noted to have acute hyponatremia and left hip fracture on imaging. She was referred to the medicine team for admission. Allergies Allergy/AdvReac Type Severity Reaction Status Date / Time Penicillins Allergy Unknown UNKNOWN Verified 10/28/19 09:40 bacitracin Allergy Unknown Verified 10/28/19 09:40 [From Neosporin ([id number])] neomycin Allergy Unknown Verified 10/28/19 09:40 [From Neosporin ([id number])] polymyxin B Allergy Unknown Verified 10/28/19 09:40 [From Neosporin ([id number])] Home Medications Home Medications Medication Instructions Recorded Confirmed Type cholecalciferol (vitamin D3) 25 1,000 units PO 1200 18 11/08/19 History mcg (1,000 unit) capsule cyanocobalamin (vitamin B-12) 1,000 mcg PO 1200 12/24/17 11/08/19 History 1,000 mcg capsule ibuprofen 200 mg tablet 200 mg PO Q6H PRN 09/28/18 11/08/19 History magnesium oxide 400 mg PO TID cap 09/28/18 11/08/19 History apixaban 5 mg tablet 5 mg PO BID #180 tab 02/09/19 11/08/19 Rx buspirone 10 mg tablet 10 mg PO BID #60 tab 03/14/19 11/08/19 Rx montelukast 10 mg tablet 10 mg PO QPM #7 tab 04/13/19 11/08/19 Rx venlafaxine 150 mg 150 mg PO QAM #30 cap 06/15/19 11/08/19 Rx capsule,extended release 24 hr metformin 1,000 mg tablet 1,000 mg PO BID #180 tab 07/18/19 11/08/19 Rx sulfamethoxazole 800 1 tab PO BID #60 tab 08/02/19 11/08/19 Rx mg-trimethoprim 160 mg tablet metoprolol succinate 100 mg 100 mg PO BID #60 tab 08/18/19 11/08/19 Rx tablet,extended release 24 hr levothyroxine 100 mcg tablet 100 mcg PO QAM #90 tab 08/23/19 11/08/19 Rx albuterol sulfate 2 puffs INHALATION Q4H PRN 09/26/19 11/08/19 History amiodarone 200 mg PO QAM 09/26/19 11/08/19 History naproxen sodium [Aleve] 440 mg PO BID PRN 09/26/19 11/08/19 History diltiazem HCl 360 mg 360 mg PO DAILY #30 cap 10/10/19 11/08/19 Rx capsule,extended release 24 hr atorvastatin 40 mg tablet 40 mg PO QPM #90 tab 10/11/19 11/08/19 Rx Past Med/Surg History Medical History Acquired claw toe of left foot (Acute) Acquired hallux valgus of right foot (Acute) Acquired hammer toe of right foot (Acute) Acute renal failure "FROM A FALL." RESOLVED Anxiety (Chronic) Arterial hemorrhage (Acute) PT CANNOT RECALL Asthma (Chronic) RES INH USE DAILY/ NOT WELL CONTROLLED DURING ALLERGY SEASON Cellulitis of third toe, left (Resolved) Depression (Chronic) Diabetes mellitus with diabetic polyneuropathy (Acute) Diabetic foot infection (Resolved 08/25/13) BILAT> BOTH RESOLVED History of amputation of left great toe (Acute) History of cardioversion X2. LAST ONE APPROX 2014 Hypercholesteremia (Chronic) Hypertension (Chronic) Hypothyroidism Morbid obesity Osteoarthritis Osteomyelitis OF A TOE LEFT FOOT Paroxysmal a-fib ON ELIQUIS. S/P FAILED CARDIOVERSIONS X2. PER CARDIO NOT A CANDIDATE FOR ABLATION. RATE HAS BEEN DIFFICULT TO CONTROL AT TIMES, BUT PER MOST RECENT CARDIO NOTE 09/2019, RATE IMPROVED WITH ADDITION OF DILTIAZEM. PT IS ASYMPTOMATIC. Patellar fracture Sleep apnea NO CPAP Surgical History History of amputation of lesser toe of left foot (Acute) History of amputation of lesser toe of right foot (Acute) History of colonoscopy History of dilatation and curettage History of esophagogastroduodenoscopy (EGD) History of right knee surgery REPLACEMENT > ON BACTRIM FOR INFECTED HARDWARE. SURGERY PENDING APPROX 6 MOS Family History Sister Breast cancer Father Diabetes Hypertension Other Family history non-contributory Heart disease Social History Smoking Status: Former smoker Number of Years Since Quit: 5; Second Hand Exposure: No; Hx Alcohol Use: Yes Alcohol type: hard liquor Hx Substance Use: No Preferred Language: Occitan Communication Ability: Effective Litigation Support Analyst Required: No Beliefs That Will Affect Care: None marital status: Single Current Living Situation: Alone Feels Safe at Home: Yes Safety Concerns: Feels Safe At This Time Review of Systems Review of Systems: All systems reviewed & are unremarkable except as noted in HPI & below Psychiatric: + anxiety Physical Exam Constitutional: + acute distress (left leg pain) and + morbidly obese; + not well nourished Eyes: + anicteric sclerae; normal pupil size ENMT: external ear and nose normal, oropharynx normal Neck: + short neck and + thick neck Respiratory: normal respiratory effort, lungs clear to auscultation (anteriorly) Auscultation: + diminished lung sounds (due to body habitus) Cardiovascular: Rate/Rhythm: regular rate and + irregularly irregular Heart Sounds: no murmur Extremities: normal capillary refill and + pedal edema (1+ to kness b/l) Gastrointestinal (Abdomen): Inspection/Auscultation: abdomen normal to inspection (obese) and normal bowel sounds Percussion/Palpation: abdomen soft; abdomen nontender, no guarding and abdomen not rigid Musculoskeletal: Holding left leg in flexion and hip external rotation. Skin intact anter/laterally. Chronic distal sensory neuropathy at baseline distal to fracture. Amputation of toes with well healed surgical site. Ankle dorsi/plantarflexion Skin: no rashes, warm and dry Neurologic: moves all extremities and awake; not confused Psychiatric: Orientation: alert and oriented x 3 Affect: + anxious affect Lymphatic: no cervical or axillary lymphadenopathy Results & Data Results & Data ([facility]) Vital Signs (Past 12 Hours) Vital Signs Pulse Pulse Resp BP BP Pulse Ox 11/08/19 11:29 60 20 143/85 H 11/08/19 10:15 70 18 120/[address] head/brain wo con Impression: No acute intracranial abnormality. XR chest 1V portable IMPRESSION: Cardiomegaly. No acute findings. CT cervical spine wo con IMPRESSION: No fractures within the cervical spine. Moderate generalized degenerative change. ABDOMEN AND PELVIS CT WITH IV CONTRAST IMPRESSION: 1. Acute, comminuted and displaced fracture of the proximal left femur involves the intertrochanteric and subtrochanteric distributions. Moderate enlargement and heterogeneity of the proximal left thigh musculature is suggestive of probable hematoma. 2. No acute intra-abdominal or intrapelvic abnormality. 3. Moderate body wall edema, unchanged. 4. Additional findings as above. XR knee LT 1 or 2V routine IMPRESSION: 1. Advanced osteoarthritic changes 2. Mild lateral translation of the tibia with respect to the femur. 3. No acute fractures identified XR pelvis 1-2V routine IMPRESSION: Acute proximal left femoral fracture with intertrochanteric extension. XR femur LT 2V routine IMPRESSION: Acute comminuted and displaced fracture of the proximal left femur as above. ECG Indication: other (pre-op) Rate (beats per minute): 70 Rhythm: atrial fibrillation Findings: no acute ischemic change Change: the following changes noted (T wave abnormality no longer evident in lateral leads) Code Status & VTE Plan Code Status Full VTE Prophylaxis Plan VTE Prophylaxis will be ordered: Yes PG Care Time/CCT Total # of Minutes Spent Total Time Spent with Patient: Total time spent is greater than 50% in coordination of care (as documented) at patient's floor/unit and/or counseling patient: Coding Level of Care Code 25961 Initial Inpt Care Lvl 3 Diagnoses Closed fracture of proximal end of left femur S72.002A Atrial fibrillation I48.0 Atrial fibrillation type: paroxysmal Asymptomatic bacteriuria R82.71 VALERIE (obstructive sleep apnea) G47.33 Hypothyroid E03.9 Hypothyroidism type: acquired Alcohol use Z78.9 Acute hyponatremia E87.1 Anemia D64.9 Depression F32.9 Depression Type: unspecified Anxiety F41.9 Chronic infection of knee joint prosthesis T84.59XA; Z96.659 Encounter type: initial encounter Diabetes E11.40 Diabetes mellitus complication detail: with unspecified neuropathy Diabetes mellitus complication status: with neurologic complications Diabetes mellitus fdc insulin use: without manager wastewater use Diabetes mellitus type: type 2 DVT prophylaxis Z29.9 (1) Chronic infection of knee joint prosthesis Encounter type: initial encounter Qualified Code(s): T84.59XA - Infection and inflammatory reaction due to other internal joint prosthesis, initial encounter; Z96.659 - Presence of unspecified artificial knee joint (2) Diabetes Diabetes mellitus complication detail: with unspecified neuropathy Diabetes mellitus complication status: with neurologic complications Diabetes mellitus manager wastewater insulin use: without fdc use Diabetes mellitus type: type 2 Qualified Code(s): E11.40 - Type 2 diabetes mellitus with diabetic neuropathy, unspecified (3) Atrial fibrillation Atrial fibrillation type: paroxysmal Qualified Code(s): I48.0 - Paroxysmal atrial fibrillation (4) Depression Depression Type: unspecified Qualified Code(s): F32.9 - Major depressive disorder, single episode, unspecified (5) Hypothyroid Hypothyroidism type: acquired Qualified Code(s): E03.9 - Hypothyroidism, unspecified
[2019-11-08] MEDS ORDERED: METOPROLOL SUCC 50MG EXT REL TAB PO STA (13:47)
--- NOTE | 2019-11-08 15:30 | Orthopedic Consultation ---
Date of Consultation November 08, 2019 Assessment & Plan (1) Closed fracture of proximal end of left femur: She was seen by Dr. Guzman today as well, and educated on this injury. Treatment options were discussed with her and we did recommend surgical fixation,specifically IM nailing of the left femur fracture. Procedure was explained including the risks, benefits, alternatives, and risks of not having surgery. Her questions were answered. Consent was signed. We will plan on surgery tomorrow (11/09/19) if medically optimized. She is on Eliquis, which is being held until after surgery. We will order a diet for her today, npo after midnight, bucks traction for the left leg. Present on Admission?: Yes History of Present Illness Reason for Consultation: Left hip fracture History of Present Illness 59 y/o female well known to our practice from other orthopedic problems, including left knee DJD which she received an injection for about 2 weeks ago. She states that last or Thursday she started to notice some left groin pain. It felt like a muscle pull to her. She stayed off of it over the weekend, tried walking today but had increased pain. She uses a walker. She was trying to turn and then fell. She was able to shout for a neighbor who then called EMS. She denies having hip pain prior to last /Thursday. She denies any other orthopedic complaints at this time. She does report diminished sensation in the left foot that is her baseline. Allergies Allergy/AdvReac Type Severity Reaction Status Date / Time Penicillins Allergy Unknown UNKNOWN Verified 10/28/19 09:40 bacitracin Allergy Unknown Verified 10/28/19 09:40 [From Neosporin ([id number])] neomycin Allergy Unknown Verified 10/28/19 09:40 [From Neosporin ([id number])] polymyxin B Allergy Unknown Verified 10/28/19 09:40 [From Neosporin ([id number])] Home Medications Home Medications Medication Instructions Recorded Confirmed Type cholecalciferol (vitamin D3) 25 1,000 units PO 1200 18 11/08/19 History mcg (1,000 unit) capsule cyanocobalamin (vitamin B-12) 1,000 mcg PO 1200 12/24/17 11/08/19 History 1,000 mcg capsule ibuprofen 200 mg tablet 200 mg PO Q6H PRN 09/28/18 11/08/19 History magnesium oxide 400 mg PO TID cap 09/28/18 11/08/19 History apixaban 5 mg tablet 5 mg PO BID #180 tab 02/09/19 11/08/19 Rx buspirone 10 mg tablet 10 mg PO BID #60 tab 03/14/19 11/08/19 Rx montelukast 10 mg tablet 10 mg PO QPM #7 tab 04/13/19 11/08/19 Rx venlafaxine 150 mg 150 mg PO QAM #30 cap 06/15/19 11/08/19 Rx capsule,extended release 24 hr metformin 1,000 mg tablet 1,000 mg PO BID #180 tab 07/18/19 11/08/19 Rx sulfamethoxazole 800 1 tab PO BID #60 tab 08/02/19 11/08/19 Rx mg-trimethoprim 160 mg tablet metoprolol succinate 100 mg 100 mg PO BID #60 tab 08/18/19 11/08/19 Rx tablet,extended release 24 hr levothyroxine 100 mcg tablet 100 mcg PO QAM #90 tab 08/23/19 11/08/19 Rx albuterol sulfate 2 puffs INHALATION Q4H PRN 09/26/19 11/08/19 History amiodarone 200 mg PO QAM 09/26/19 11/08/19 History naproxen sodium [Aleve] 440 mg PO BID PRN 09/26/19 11/08/19 History diltiazem HCl 360 mg 360 mg PO DAILY #30 cap 10/10/19 11/08/19 Rx capsule,extended release 24 hr atorvastatin 40 mg tablet 40 mg PO QPM #90 tab 10/11/19 11/08/19 Rx Patient History Medical History Acquired claw toe of left foot (Acute) Acquired hallux valgus of right foot (Acute) Acquired hammer toe of right foot (Acute) Acute renal failure "FROM A FALL." RESOLVED Anxiety (Chronic) Arterial hemorrhage (Acute) PT CANNOT RECALL Asthma (Chronic) RES INH USE DAILY/ NOT WELL CONTROLLED DURING ALLERGY SEASON Cellulitis of third toe, left (Resolved) Depression (Chronic) Diabetes mellitus with diabetic polyneuropathy (Acute) Diabetic foot infection (Resolved 08/25/13) BILAT> BOTH RESOLVED History of amputation of left great toe (Acute) History of cardioversion X2. LAST ONE APPROX 2014 Hypercholesteremia (Chronic) Hypertension (Chronic) Hypothyroidism Morbid obesity Osteoarthritis Osteomyelitis OF A TOE LEFT FOOT Paroxysmal a-fib ON ELIQUIS. S/P FAILED CARDIOVERSIONS X2. PER CARDIO NOT A CANDIDATE FOR ABLATION. RATE HAS BEEN DIFFICULT TO CONTROL AT TIMES, BUT PER MOST RECENT CARDIO NOTE 09/2019, RATE IMPROVED WITH ADDITION OF DILTIAZEM. PT IS ASYMPTOMATIC. Patellar fracture Sleep apnea NO CPAP Surgical History History of amputation of lesser toe of left foot (Acute) History of amputation of lesser toe of right foot (Acute) History of colonoscopy History of dilatation and curettage History of esophagogastroduodenoscopy (EGD) History of right knee surgery REPLACEMENT > ON BACTRIM FOR INFECTED HARDWARE. SURGERY PENDING APPROX 6 MOS Family History Sister Breast cancer Father Diabetes Hypertension Other Family history non-contributory Heart disease Social History Smoking Status: Never smoker Number of Years Since Quit: 5; Second Hand Exposure: No; Hx Alcohol Use: Yes Alcohol type: hard liquor Hx Substance Use: No Preferred Language: Maltese Communication Ability: Effective Mirror Department Supervisor Required: No Beliefs That Will Affect Care: None marital status: Single Current Living Situation: Alone Feels Safe at Home: Yes Review of Systems Musculoskeletal: as per Subjective / HPI Integumentary: + wounds Neurologic: + numbness Hematologic / Lymphatic: + easy bleeding and + easy bruising Physical Exam Physical Exam: She is alert and oriented. NAD. Left leg: shortened and externally rotated. Did not do any knee or hip ROM. She has multiple abrasions on the left lower leg. Reports numbness in the left foot to light touch. She has previous amputation of 3 toes. Brisk refill. Able to dorsiflex and plantarflex. Results & Data ([facility]) Vital Signs (Past 12 Hours) Vital Signs Pulse Pulse Resp BP BP Pulse Ox 11/08/19 14:25 66 16 150/82 H 11/08/19 13:20 62 16 135/93 11/08/19 11:29 60 20 143/85 H 11/08/19 10:15 70 18 120/70 97 Diagnostic Findings xrays show a comminuted displaced intertroch/subtrochanteric fracture of the left femur PG Care Time/CCT Total # of Minutes Spent Total Time Spent with Patient: Total time spent is greater than 50% in coordination of care (as documented) at patient's floor/unit and/or counseling patient: Coding Level of Care Code 41141 Inpt Consult Level 3 Diagnoses Closed fracture of proximal end of left femur S72.002A
[2019-11-08] MEDS ORDERED: MAGNESIUM HYDROXIDE SUSP 30 ML UDC PO PRN (16:21)
[2019-11-08] MEDS ORDERED: HYDROmorphone INJ 0.5 MG/0.5 ML SYR IV PRN (16:21)
[2019-11-08] MEDS ORDERED: bisacodyL 10 MG SUPP PR PRN (16:21)
[2019-11-08] MEDS ORDERED: ACETAMINOPHEN 325 MG TAB PO PRN (16:21)
[2019-11-08] MEDS ORDERED: NALOXONE HCL 0.4 MG/1 ML VIAL/CARP IV PRN (16:21)
[2019-11-08] MEDS: SODIUM CHLORIDE 0.9% 1000ML 1,000 ML IV SCH ×2 (16:36→23:46)
--- NOTE | 2019-11-08 16:45 | Electrocardiogram Report ---
Test Reason : Blood Pressure : / mmHG Vent. Rate : 070 BPM Atrial Rate : 077 BPM P-R Int : 000 ms QRS Dur : 090 ms QT Int : 424 ms P-R-T Axes : 000 062 058 degrees QTc Int : 457 ms Atrial fibrillation Low voltage QRS Abnormal ECG When compared with ECG of 26-SEP-2019 18:55, Nonspecific T wave abnormality no longer evident in Lateral leads QT has shortened Confirmed by Ignacio Becker ([id number]) on 11/08/2019 4:45:22 PM Referred By: REFERRED SELF Confirmed By:Tico Becker
[2019-11-08] MEDS: OXYCODONE HCL IR 5 MG TAB (IMMEDIATE RELEASE) PO PRN (17:09)
[2019-11-08 18:07] LABS: BUN Creatinine Ratio 13.8 (10-20); Calcium 7.9 mg/dl (8.5-10.1); Est GFR (African American) 113.1; Est GFR (Non-African American) 97.6
[2019-11-08] MEDS: cefTRIAXone SODIUM 2,000 MG in DEXTROSE 5% 50 ML IV SCH (18:16)
[2019-11-08] MEDS: HYDROmorphone INJ 0.5 MG/0.5 ML SYR IV PRN (18:52)
[2019-11-08] MEDS ORDERED: SODIUM CHLORIDE 0.65% NA SOLN 45 ML (OCEAN) PRN (19:30)
[2019-11-08] MEDS ORDERED: SODIUM CHLORIDE 0.65% NA SOLN 45 ML (OCEAN) ONE (19:35)
[2019-11-08] MEDS: ATORVASTATIN 40 MG TAB PO SCH (21:32)
[2019-11-08] MEDS: MONTELUKAST SODIUM 10 MG TABLET PO SCH (21:33)
[2019-11-08] MEDS: MAGNESIUM OXIDE 400 MG TAB PO SCH (21:33)
[2019-11-08] MEDS: DOCUSATE SODIUM/SENNA 50/8.6MG TAB PO SCH (21:33)
[2019-11-08] MEDS: METOPROLOL SUCC 50MG EXT REL TAB PO SCH (21:34)
[2019-11-08] MEDS ORDERED: MELATONIN 3 MG TAB PO PRN (21:50)
[2019-11-08] MEDS: SULFAMETHOXAZOLE/TRIMETHOPRIM DS 800/160MG TAB PO SCH (22:03)
[2019-11-08 23:59] LABS: BUN Creatinine Ratio 12.9 (10-20); Calcium 7.6 mg/dl (8.5-10.1); Creatinine Clr Calc Pharmacy 99.4 ml/min; Est GFR (African American) 83.4; Est GFR (Non-African American) 71.9; Potassium 5.5 mmol/L (3.5-5.1)
[2019-11-09] MEDS ORDERED: SODIUM CHLORIDE 3 % 50 ML IV ONE (00:22)
[2019-11-09] MEDS: OXYCODONE HCL IR 5 MG TAB (IMMEDIATE RELEASE) PO PRN ×4 (00:46→21:59)
[2019-11-09] MEDS: HYDROmorphone INJ 0.5 MG/0.5 ML SYR IV PRN ×4 (05:31→23:32)
[2019-11-09] MEDS: LEVOTHYROXINE SODIUM 100 MCG TABLET PO SCH (06:11)
[2019-11-09 07:13] LABS: Basophils # (auto) 0.02 K/uL (0-0.2); Basophils % (auto) 0.3 %; Eosinophils % (auto) 1.4 %; Hematocrit (blood only) 22.3 % (37-47); Hemoglobin 7.1 g/dL (12.0-16.0); Immature Granulocytes # (auto) 0.03 K/uL (0.00-0.02); Immature Granulocytes % (auto) 0.4 %; Lymphocytes # (auto) 0.74 K/uL (1.2-3.4); Lymphocytes % (auto) 10.3 %; Mean Corpuscular Hemoglobin 30.3 pg (25-34); Mean Corpuscular Hgb Conc 31.8 g/dL (32-36); Mean Corpuscular Volume 95.3 fL (80-100); Mean Platelet Volume 9.7 fL (7.4-10.4); Monocytes # (auto) 0.78 K/uL (0.11-0.59); Monocytes % (auto) 10.8 %; Neutrophils # (auto) 5.54 K/uL (1.4-6.5); Neutrophils % (auto) 76.8 %; Platelet Count 243 K/uL (130-400); RDW Coefficient of Variation 14.8 % (11.5-14.5); RDW Standard Deviation 51.7 fL (36.4-46.3); Red Blood Count 2.34 M/uL (4.2-5.4); White Blood Count 7.21 K/uL (4.8-10.8)
[2019-11-09] MEDS ORDERED: BUPIVACAINE 0.5 % 5 MG/1 ML PF 10ML VIAL ONE (07:27)
[2019-11-09 07:34] LABS: BUN Creatinine Ratio 13.6 (10-20); Calcium 7.7 mg/dl (8.5-10.1); Creatinine Clr Calc Pharmacy 98.2 ml/min; Est GFR (African American) 82.3; Potassium 5.3 mmol/L (3.5-5.1)
[2019-11-09 07:36] LABS: Polychromasia 1+
[2019-11-09] MEDS: SULFAMETHOXAZOLE/TRIMETHOPRIM DS 800/160MG TAB PO SCH (08:34)
[2019-11-09] MEDS: MAGNESIUM OXIDE 400 MG TAB PO SCH ×3 (08:34→20:53)
[2019-11-09] MEDS: VENLAFAXINE HCL XR 150 MG CAPXR PO SCH (08:36)
[2019-11-09] MEDS: AMIODARONE 200 MG TAB PO SCH (08:37)
[2019-11-09] MEDS: dilTIAZem HCL 180 MG CAPCR PO SCH (08:37)
[2019-11-09] MEDS: METOPROLOL SUCC 50MG EXT REL TAB PO SCH ×2 (08:39→20:53)
[2019-11-09] MEDS: SODIUM CHLORIDE 0.9% 1000ML 1,000 ML IV SCH ×2 (08:40→16:56)
[2019-11-09] MEDS ORDERED: SODIUM CHLORIDE 0.9% 250 ML IV PRN ×2 (09:57→14:08)
[2019-11-09] MEDS ORDERED: MICONAZOLE NITRATE POWDER 43 GM EXT PRN (11:22)
--- NOTE | 2019-11-09 12:39 | History & Physical Bridge Note ---
Date of Service November 09, 2019 History & Physical Bridge Note I have examined the patient, reviewed the History & Physical and in the interval since the performance of the History & Physical I have noted the following changes of clinical significance: no changes noted
[2019-11-09] MEDS: CHOLECALCIFEROL 1,000 UNITS 25 MCG TAB PO SCH (13:04)
[2019-11-09] MEDS: LORazepam 0.5 MG TAB PO PRN (13:04)
[2019-11-09] MEDS: CYANOCOBALAMIN 500 MCG TABLET (VITAMIN B-12) PO SCH (13:05)
[2019-11-09] MEDS ORDERED: LIDOCAINE HCL 2% 2 ML VIAL/AMP(20MG/ML) INFIL ONE (13:55)
[2019-11-09] MEDS ORDERED: PROPOFOL IV EMULSION 10 MG/ML 20 ML VIAL IV ONE (13:55)
[2019-11-09] MEDS ORDERED: MIDAZOLAM HCL 1 MG/ML 2ML VIAL ONE ×2 (13:56)
[2019-11-09] MEDS ORDERED: fentaNYL citrate 100 MCG/2 ML VIAL ONE (13:58)
[2019-11-09] MEDS ORDERED: DEXAMETHASONE SOD INJ 4 MG/ML VIAL ONE (13:58)
[2019-11-09] MEDS ORDERED: ONDANSETRON INJ 2 MG/ML 2 ML VIAL ONE (13:58)
--- NOTE | 2019-11-09 14:05 | Hospitalist Progress Note ---
Date of Service November 09, 2019 Assessment & Plan (1) Closed fracture of proximal end of left femur: With intertrochanteric extension. - Consulted Dr. Guzman -> Plan for surgery today. - Post-op care per primary team (2) Acute hyponatremia: Suspected high fluid, low protein diet especially with alcohol and seltzer use. Although unclear why this is acute given patient history she has not recently changed her habits. - Urine osms indicate SIADH, so pointing away from alcohol and seltzer as cause. - Continue normal saline; aim to correct at ~10 mEq/dL/day. - Recheck Q6h (3) Asymptomatic bacteriuria: Although usually would not treat this; in setting of a patient with chronically infected right TKA and requiring a hip operation started 2g IV ceftriaxone to cover in case of a true infection. - Continue ceftriaxone - Follow up urine/blood cultures from 11/07 -> Urine growing Gram(-) bacilli at present. (4) Atrial fibrillation: Appears to be persistent at this stage. - Continue home regimen: amiodarone, diltiazem, metoprolol - Restart anticoagulation as able (5) Anemia: Suspect combination of NSAIDs and Eliquis use, along with possible bleeding at fracture site. No melena or bright red blood in stool to suggest acute GI bleed. Prior severe iron deficiency anemia in July 2018 with normal EGD colonoscopy at that time. - Holding further NSAIDs and Eliquis - Transfused 1 unit PRBCs prior to surgery on 11/08 (6) VALERIE (obstructive sleep apnea): Pt refusing CPAP @ night. - Monitor for nocturnal hypoxia and treat with oxygen via nasal cannula (7) Hypothyroid: TSH this admission was 2.9. - Continue her usual levothyroxine 100 mcg p.o. daily (8) Alcohol use: Monitor for alcohol withdrawal. Possible cause of hyponatremia. (9) Depression: Very anxious at present. - Continue venlafaxine ER 150 mg p.o. daily - Continue buspirone 10 mg p.o. twice daily (10) Chronic infection of knee joint prosthesis: - Continue her chronic Bactrim for chronic suppression. (11) Diabetes: HbA1C was 6.0% in July. No suggestion she required insulin on admission. - Diabetic diet (12) DVT prophylaxis: Resume Eliquis once cleared by surgery Admission and Anticipated Discharge Date Admission Date: November 08, 2019 Subjective Anxious today. Pain in the left leg. Reports no fevers/chills, chest pain, short ness of breath, abdominal pain, nausea, or vomiting. Physical Exam Constitutional: WD/WN, vitals as above Eyes: EOM intact bilaterally; no conjunctival abnormality ENMT: external ear and nose normal, oropharynx normal Neck: trachea midline, no thyromegaly normal visual inspection Respiratory: normal respiratory effort, lungs clear to auscultation no respiratory distress Cardiovascular: RRR, no murmur, no edema Gastrointestinal (Abdomen): Inspection/Auscultation: abdomen normal to inspection; abdomen not distended Musculoskeletal: Extremities: + extremities abnormal to inspection (Left leg in traction) Skin: no rashes, warm and dry Neurologic: moves all extremities and awake Psychiatric: Orientation: alert, oriented to person and cooperative Results & Data Results & Data ([facility]) Vital Signs (Past 12 Hours) Vital Signs Temp Pulse Pulse Resp BP BP Pulse Ox 11/09/19 13:50 36.7 C 60 20 104/60 93 11/09/19 13:45 36.7 C 60 20 104/60 93 11/09/19 13:12 36 C L 74 22 112/74 93 11/09/19 12:10 36.6 C 76 20 108/72 93 11/09/19 12:09 36.8 C 77 20 111/66 95 11/09/19 11:40 36.8 C 77 20 111/66 95 11/09/19 11:23 36.6 C 68 18 102/70 95 11/09/19 11:06 36.6 C 74 18 107/67 97 11/09/19 11:04 36.6 C 74 18 107/67 97 11/09/19 07:16 68 11/09/19 07:12 36.6 C 68 18 129/78 94 11/09/19 04:00 36.8 C 58 L 20 116/68 93 PG Care Time/CCT Total # of Minutes Spent Total Time Spent with Patient: Total time spent is greater than 50% in coordi nation of care (as documented) at patient's floor/unit and/or counseling patient: Coding Level of Care Code 63790 Subseq Hosp Care Lvl 3 Diagnoses Closed fracture of proximal end of left femur S72.002A Acute hyponatremia E87.1 Asymptomatic bacteriuria R82.71 Atrial fibrillation I48.0 Atrial fibrillation type: paroxysmal Anemia D64.9 VALERIE (obstructive sleep apnea) G47.33 Hypothyroid E03.9 Hypothyroidism type: acquired Alcohol use Z78.9 Depression F32.9 Depression Type: unspecified Chronic infection of knee joint prosthesis T84.59XA; Z96.659 Encounter type: initial encounter Diabetes E11.40 Diabetes mellitus type: type 2 Diabetes mellitus mcfp insulin use: without mcfp use Diabetes mellitus complication status: with neurologic complications Diabetes mellitus complication detail: with unspecified neuropathy DVT prophylaxis Z29.9 (1) Atrial fibrillation Atrial fibrillation type: paroxysmal Qualified Code(s): I48.0 - Paroxysmal atrial fibrillation (2) Hypothyroid Hypothyroidism type: acquired Qualified Code(s): E03.9 - Hypothyroidism, unspecified (3) Depression Depression Type: unspecified Qualified Code(s): F32.9 - Major depressive disorder, single episode, unspecified (4) Chronic infection of knee joint prosthesis Encounter type: initial encounter Qualified Code(s): T84.59XA - Infection and inflammatory reaction due to other internal joint prosthesis, initial encounter; Z96.659 - Presence of unspecified artificial knee joint (5) Diabetes Diabetes mellitus type: type 2 Diabetes mellitus mcfp insulin use: without adjunct faculty for medical terminology use Diabetes mellitus complication status: with neurologic complications Diabetes mellitus complication detail: with unspecified neuropathy Qualified Code(s): E11.40 - Type 2 diabetes mellitus with diabetic neuropathy, unspecified
--- NOTE | 2019-11-09 14:11 | Anesthesiology Consultation ---
Date of Service November 09, 2019 Assessment & Plan Chart Review Chart Review: Acceptable Risk for Surgery Consults Requested none History Surgery Operation Date: 11/09/19 07:00 Proposed Procedures p Left Hip Long Troch Nail - Hal Guzman MD Height/Weight Height: 5 ft 3 in Weight: 147 kg Allergies Allergy/AdvReac Type Severity Reaction Status Date / Time Penicillins Allergy Unknown UNKNOWN Verified 10/28/19 09:40 bacitracin Allergy Unknown Verified 10/28/19 09:40 [From Neosporin ([id number])] neomycin Allergy Unknown Verified 10/28/19 09:40 [From Neosporin ([id number])] polymyxin B Allergy Unknown Verified 10/28/19 09:40 [From Neosporin ([id number])] Medications Home Medications Medication Instructions Recorded Confirmed Last Taken cholecalciferol (vitamin D3) 25 1,000 units PO 1200 12/24/17 11/08/19 09/29/19 18:00 mcg (1,000 unit) capsule cyanocobalamin (vitamin B-12) 1,000 mcg PO 1200 12/24/17 11/08/19 09/29/19 12:00 1,000 mcg capsule ibuprofen 200 mg tablet 200 mg PO Q6H PRN 09/28/18 11/08/19 09/29/19 08:00 magnesium oxide 400 mg PO TID cap 09/28/18 11/08/19 09/29/19 18:00 apixaban 5 mg tablet 5 mg PO BID #180 tab 02/09/19 11/08/19 09/26/19 08:00 buspirone 10 mg tablet 10 mg PO BID #60 tab 03/14/19 11/08/19 09/29/19 18:00 montelukast 10 mg tablet 10 mg PO QPM #7 tab 04/13/19 11/08/19 09/29/19 18:00 venlafaxine 150 mg 150 mg PO QAM #30 cap 06/15/19 11/08/19 09/30/19 08:00 capsule,extended release 24 hr metformin 1,000 mg tablet 1,000 mg PO BID #180 tab 07/18/19 11/08/19 09/29/19 18:00 sulfamethoxazole 800 1 tab PO BID #60 tab 08/02/19 11/08/19 09/29/19 18:00 mg-trimethoprim 160 mg tablet metoprolol succinate 100 mg 100 mg PO BID #60 tab 08/18/19 11/08/19 09/23/19 08:00 tablet,extended release 24 hr levothyroxine 100 mcg tablet 100 mcg PO QAM #90 tab 08/23/19 11/08/19 09/30/19 08:00 albuterol sulfate 2 puffs INHALATION Q4H PRN 09/26/19 11/08/19 09/30/19 08:00 amiodarone 200 mg PO QAM 09/26/19 11/08/19 09/30/19 08:00 naproxen sodium [Aleve] 440 mg PO BID PRN 09/26/19 11/08/19 09/29/19 18:00 diltiazem HCl 360 mg 360 mg PO DAILY #30 cap 10/10/19 11/08/19 Unknown capsule,extended release 24 hr atorvastatin 40 mg tablet 40 mg PO QPM #90 tab 10/11/19 11/08/19 Unknown Active Medications Generic Name Dose Route Start Last Admin Trade Name Freq PRN Reason Stop Dose Admin Amiodarone HCl 200 mg 11/09/19 09:00 11/09/19 08:37 Cordarone PO 12/09/19 08:59 200 mg QAM BRIANDA Administration Atorvastatin Calcium 40 mg 11/08/19 21:00 11/08/19 21:32 Lipitor PO 12/08/19 20:59 40 mg QPM BRIANDA Administration Buspirone HCl 10 mg 11/08/19 21:00 11/09/19 08:38 Buspar PO 12/08/19 20:59 10 mg BID BRIANDA Administration Cyanocobalamin 1,000 mcg 11/09/19 12:00 11/09/19 13:05 Vitamin B-12 PO 12/09/19 11:59 1,000 mcg 1200 BRIANDA Administration Diltiazem HCl 360 mg 11/09/19 09:00 11/09/19 08:37 Cardizem Cd PO 12/09/19 08:59 360 mg DAILY BRIANDA Administration Hydromorphone HCl 0.25 - 0.5 mg 11/08/19 17:21 11/09/19 13:04 Dilaudid IV 11/22/19 16:20 0.5 mg Q2H PRN Administration Moderate/Severe Pain Ceftriaxone Sodium 2,000 mg/ 70 mls @ 100 mls/hr 11/08/19 17:00 11/08/19 18 :58 Dextrose IV 11/13/19 16:59 Infused Q24H BRIANDA Infusion Protocol Sodium Chloride 1,000 mls @ 125 mls/hr 11/08/19 16:21 11/09/19 08:40 Nss 1000ml IV 12/08/19 16:20 125 mls/hr .Q8H BRIANDA Administration Levothyroxine Sodium 100 mcg 11/09/19 06:30 11/09/19 06:11 Synthroid PO 12/09/19 06:29 100 mcg DAILYBB BRIANDA Administration Lorazepam 0.5 mg 11/09/19 12:27 11/09/19 13:04 Ativan PO 12/09/19 12:26 0.5 mg TID PRN Administration Anxiety Magnesium Oxide 400 mg 11/08/19 21:00 11/09/19 13:05 Mag-Ox PO 12/08/19 20:59 400 mg TID BRIANDA Administration Melatonin 3 mg 11/08/19 21:50 11/08/19 22:06 Melatonin PO 12/08/19 21:49 3 mg HS PRN Administration Sleep Metoprolol Succinate 100 mg 11/08/19 21:00 11/09/19 08:39 Toprol Xl PO 12/08/19 20:59 100 mg BID BRIANDA Administration Montelukast Sodium 10 mg 11/08/19 21:00 11/08/19 21:33 Singulair PO 12/08/19 20:59 10 mg QPM BRIANDA Administration Oxycodone HCl 5 mg 11/08/19 16:21 11/09/19 00:46 Roxicodone Immediate Rel PO 11/22/19 16:20 5 mg Q4H PRN Administration MODERATE Pain (Scale 4,5,6) Oxycodone HCl 10 mg 11/08/19 16:21 11/09/19 09:47 Roxicodone Immediate Rel PO 11/22/19 16:20 10 mg Q4H PRN Administration SEVERE Pain (Scale 7,8,9,10) Senna/Docusate Sodium 2 tab 11/08/19 21:00 11/08/19 21:33 Senokot S PO 12/08/19 20:59 2 tab HS BRIANDA Administration Sodium Chloride 0 sprays 11/08/19 19:30 11/08/19 19:36 Sampson Nasal NA 12/08/19 19:29 1 sprays NOW PRN Administration Nasal Congestion Protocol Trimethoprim/Sulfamethoxazole 1 tab 11/08/19 21:00 11/09/19 08:34 Septra Ds 800/160mg Tab PO 12/08/19 20:59 1 tab BID BRIANDA Administration Venlafaxine HCl 150 mg 11/09/19 09:00 11/09/19 08:36 Effexor Extended Release PO 12/09/19 08:59 150 mg QAM BRIANDA Administration Vitamin D 1,000 units 11/09/19 12:00 11/09/19 13:04 Vitamin D3 PO 12/09/19 11:59 1,000 units DAILY@1200 BRIANDA Administration NPO Date Last Intake of Fluids: 11/09/19 Time Last Intake of Fluids: 00:00 Date Last Intake of Solids: 11/08/19 Time Last Intake of Solids: 17:00 Past Medical History Medical History Acquired claw toe of left foot (Acute) Acquired hallux valgus of right foot (Acute) Acquired hammer toe of right foot (Acute) Acute renal failure "FROM A FALL." RESOLVED Anxiety (Chronic) Arterial hemorrhage (Acute) PT CANNOT RECALL Asthma (Chronic) RES INH USE DAILY/ NOT WELL CONTROLLED DURING ALLERGY SEASON Cellulitis of third toe, left (Resolved) Depression (Chronic) Diabetes mellitus with diabetic polyneuropathy (Acute) Diabetic foot infection (Resolved 08/25/13) BILAT> BOTH RESOLVED History of amputation of left great toe (Acute) History of cardioversion X2. LAST ONE APPROX 2014 Hypercholesteremia (Chronic) Hypertension (Chronic) Hypothyroidism Morbid obesity Osteoarthritis Osteomyelitis OF A TOE LEFT FOOT Paroxysmal a-fib ON ELIQUIS. S/P FAILED CARDIOVERSIONS X2. PER CARDIO NOT A CANDIDATE FOR ABLATION. RATE HAS BEEN DIFFICULT TO CONTROL AT TIMES, BUT PER MOST RECENT CARDIO NOTE 09/2019, RATE IMPROVED WITH ADDITION OF DILTIAZEM. PT IS ASYMPTOMATIC. Patellar fracture Sleep apnea NO CPAP Past Family History Family History Sister Breast cancer Father Diabetes Hypertension Other Family history non-contributory Heart disease Past Surgical History Surgical History History of amputation of lesser toe of left foot (Acute) History of amputation of lesser toe of right foot (Acute) History of colonoscopy History of dilatation and curettage History of esophagogastroduodenoscopy (EGD) History of right knee surgery REPLACEMENT > ON BACTRIM FOR INFECTED HARDWARE. SURGERY PENDING APPROX 6 MOS Social History Smoking Status: Former smoker Hx Alcohol Use: Yes Alcohol type: hard liquor alcohol intake frequency: 0-2 drinks per day Hx Substance Use: No substance use type: does not use Physical Exam Vital Signs Last Vital Signs Temp 36.7 C 11/09/19 13:50 Pulse 60 11/09/19 13:50 Resp 20 11/09/19 13:50 BP 104/60 11/09/19 13:50 Pulse Ox 93 11/09/19 13:50 Testing Laboratory Results 11/09/19 06:39 11/09/19 06:39 PT 12.4 Seconds (9.0-12.0) H 11/08/19 10:52 INR 1.2 (0.9-1.1) H 11/08/19 10:52 APTT 29.5 Seconds (21.0-31.0) 11/08/19 10:52 Urine Color Yellow 11/08/19 11:30 Urine Appearance Cloudy (Clear) A 11/08/19 11:30 Urine pH 5.0 (4.5-7.5) 11/08/19 11:30 Ur Specific Wesley 1.018 (1.000-1.030) 11/08/19 11:30 Urine Protein Trace (Negative) H 11/08/19 11:30 Urine Glucose (UA) Negative (Negative) 11/08/19 11:30 Urine Ketones Trace (Negative) H 11/08/19 11:30 Urine Nitrite Positive (Negative) A 11/08/19 11:30 Ur Leukocyte Esterase 1+ (Negative) H 11/08/19 11:30 Urine WBC (Auto) 10-30 /hpf (0-5) H 11/08/19 11:30 Urine RBC (Auto) 0-4 /hpf (0-4) 11/08/19 11:30 U Hyaline Cast (Auto) Not Reportable 11/08/19 11:30 U Epithel Cells (Auto) >30 /lpf (0-5) H 11/08/19 11:30 Urine Bacteria (Auto) 4+ (Negative) H 11/08/19 11:30 Blood Type O Positive 11/08/19 10:52 Antibody Screen NEGATIVE 11/08/19 10:52 11/08/19 11:30 Urine Culture - Preliminary Urine,Clean Catch Gram negative bacilli 11/09/19 11/09/19 11:43 07:40 POC Glucose 129 H 108 H
[2019-11-09 15:21] LABS: BUN Creatinine Ratio 13.2 (10-20); Calcium 7.7 mg/dl (8.5-10.1); Creatinine Clr Calc Pharmacy 88.4 ml/min; Est GFR (African American) 72.4; Est GFR (Non-African American) 62.5; Potassium 5.5 mmol/L (3.5-5.1)
[2019-11-09] MEDS ORDERED: TOLVAPTAN 15 MG TABLET PO STA (17:21)
[2019-11-09] MEDS: cefTRIAXone SODIUM 2,000 MG in DEXTROSE 5% 50 ML IV SCH (17:47)
[2019-11-09] MEDS: DOCUSATE SODIUM/SENNA 50/8.6MG TAB PO SCH (20:53)
[2019-11-09] MEDS: MONTELUKAST SODIUM 10 MG TABLET PO SCH (20:53)
[2019-11-09] MEDS: ATORVASTATIN 40 MG TAB PO SCH (20:53)
[2019-11-09 21:53] LABS: Hematocrit (blood only) 25.7 % (37-47); Hemoglobin 8.2 g/dL (12.0-16.0); Mean Corpuscular Hemoglobin 29.5 pg (25-34); Mean Corpuscular Hgb Conc 31.9 g/dL (32-36); Mean Corpuscular Volume 92.4 fL (80-100); Mean Platelet Volume 9.4 fL (7.4-10.4); Platelet Count 221 K/uL (130-400); RDW Coefficient of Variation 16.4 % (11.5-14.5); RDW Standard Deviation 55.2 fL (36.4-46.3); Red Blood Count 2.78 M/uL (4.2-5.4); White Blood Count 8.38 K/uL (4.8-10.8)
[2019-11-09 22:10] LABS: BUN Creatinine Ratio 11.6 (10-20); Calcium 7.8 mg/dl (8.5-10.1); Est GFR (African American) 50.8; Est GFR (Non-African American) 43.9
--- NOTE | 2019-11-09 22:14 | Progress Notes ---
DATE: 11/09/2019 SUBJECTIVE: A 59-year-old female with multiple medical comorbidities, admitted with a left hip fracture. We were planning on fixing her hip today. She got down to anesthesia who evaluated her and canceled the surgery due to her low sodium level. She was anemic, got 1 unit of blood this morning. She is not complaining of any chest pain or shortness of breath. Not feeling dizzy or lightheaded. She has got isolated left thigh pain. OBJECTIVE: VITAL SIGNS: Temperature 36.6. Vital signs stable. GENERAL: Shows a pleasant, obese, poorly kempt female who looks much older than her stated age. She is lying in bed. EXTREMITIES: Her left leg is flexed and externally rotated. She has got multiple abrasions and diffuse edema in her leg. She can flex and extend her toes appropriately. She is missing several toes. LABORATORY DATA: Her sodium was 124 today. Potassium 5.5. Hemoglobin was 7.1 this morning. ASSESSMENT: A 59-year-old white female, multiple medical comorbidities with a left intertrochanteric fracture. She is a terrible operative candidate, but this is really something that needs to be fixed. She is very high risk with a very difficult surgery considering her size. In any case, I think it is her only chance of mobilization. She was scheduled for the surgery today, but canceled due to her low sodium. This is something that needs to be corrected relatively carefully. PLAN: We discussed this with the hospitalist. He is going to work on and fixing her sodium. She is getting some blood today and we will recheck labs tomorrow morning. Dr. Seay may be doing her surgery tomorrow if she gets cleared as I have office hours. Hopefully, I did discuss this with the patient and she understands. We will continue pain management. Keep her n.p.o. after midnight. DVT prophylaxis includes TEDs and SCDs for now.
[2019-11-10] MEDS: ALBUTEROL HFA 8 GM INHALER INH PRN (04:23)
[2019-11-10] MEDS: LEVOTHYROXINE SODIUM 100 MCG TABLET PO SCH (05:35)
[2019-11-10 05:40] LABS: Hematocrit (blood only) 26.7 % (37-47); Hemoglobin 8.3 g/dL (12.0-16.0); Mean Corpuscular Hemoglobin 29.1 pg (25-34); Mean Corpuscular Hgb Conc 31.1 g/dL (32-36); Mean Corpuscular Volume 93.7 fL (80-100); Mean Platelet Volume 9.1 fL (7.4-10.4); Platelet Count 224 K/uL (130-400); RDW Coefficient of Variation 16.6 % (11.5-14.5); RDW Standard Deviation 57.2 fL (36.4-46.3); Red Blood Count 2.85 M/uL (4.2-5.4); White Blood Count 7.77 K/uL (4.8-10.8)
[2019-11-10 06:09] LABS: BUN Creatinine Ratio 13.4 (10-20); Calcium 7.6 mg/dl (8.5-10.1); Creatinine Clr Calc Pharmacy 73.1 ml/min; Est GFR (African American) 57.5; Est GFR (Non-African American) 49.6; Magnesium 2.2 mg/dl (1.8-2.4)
[2019-11-10 06:10] LABS: Phosphorus 3.9 mg/dl (2.5-4.9)
[2019-11-10] MEDS ORDERED: BUPIVACAINE 0.5 % 5 MG/1 ML PF 10ML VIAL ONE (06:46)
[2019-11-10] MEDS: OXYCODONE HCL IR 5 MG TAB (IMMEDIATE RELEASE) PO PRN ×3 (08:10→23:00)
[2019-11-10] MEDS: AMIODARONE 200 MG TAB PO SCH (08:41)
[2019-11-10] MEDS: VENLAFAXINE HCL XR 150 MG CAPXR PO SCH (08:41)
[2019-11-10] MEDS: MAGNESIUM OXIDE 400 MG TAB PO SCH ×3 (08:42→20:06)
[2019-11-10] MEDS: dilTIAZem HCL 180 MG CAPCR PO SCH (08:42)
[2019-11-10] MEDS: METOPROLOL SUCC 50MG EXT REL TAB PO SCH ×2 (08:43→20:04)
[2019-11-10] MEDS: HYDROmorphone INJ 0.5 MG/0.5 ML SYR IV PRN ×2 (10:37→17:47)
--- NOTE | 2019-11-10 11:44 | Orthopedic Progress Note ---
Date of Service November 10, 2019 Assessment & Plan (1) Closed femur fracture: Today I recommended proceeding with closed open reduction and internal fixation with a trochanteric fixation nail as soon as she can be medically optimized and cleared. She expressed significant anxiety with proceeding today given her low sodium. We did discuss that this is probably a chronic problem that should not be reversed quickly. The risk of continued bedrest may outweigh the sodium issue, but I will defer to anesthesia for timing on this somewhat urgent surgery. I reviewed the risks and benefits of surgery today with her which she is can familiar with because of Dr. Guzman's discussion. Informed consent remains in place. She is still on the board for today's surgery. We will see if we can get her cleared by the end of the day. Otherwise she will need to be done tomorrow at the latest. Subjective She reports tolerable pain. She does report significant anxiety over her sodium levels and proceeding with surgery today. She asked me directly to not operate today. We discussed that risk of waiting is increasing because a medical complications from bedrest and traction. I asked her to consider today if we can get her clear. Will discuss with anesthesia and the hospitalist team. Physical Exam Physical Exam: Left lower extremity: The skin over the hip is intact. The lower extremity is placed in inline Richey's traction. The lower extremity is wrapped in padding for the Richey's traction. She appears to be neurovascular intact. The foot is well-perfused. Constitutional: + well hydrated and + morbidly obese; no acute distress and not intoxicated appearing She is alert and oriented to place and time. Results & Data ([facility]) Vital Signs (Past 12 Hours) Vital Signs Temp Pulse Pulse Resp BP Pulse Ox 11/10/19 11:06 36.8 C 78 18 100/61 92 11/10/19 09:21 71 11/10/19 07:21 36.8 C 88 18 112/74 95 11/10/19 04:31 89 20 93 11/10/19 03:44 36.8 C 81 20 106/66 91 11/10/19 01:55 77 PG Care Time/CCT Total # of Minutes Spent Total Time Spent with Patient: Total time spent is greater than 50% in coordination of care (as documented) at patient's floor/unit and/or counseling patient: Coding Level of Care Code 20778 Subseq Obs Care Lvl 3 Diagnoses Closed femur fracture S72.92XA Encounter type: initial encounter Femur location: unspecified portion of femur Fracture morphology: unspecified fracture morphology Laterality: left (1) Closed femur fracture Encounter type: initial encounter Femur location: unspecified portion of femur Fracture morphology: unspecified fracture morphology Laterality: left Qualified Code(s): S72.92XA - Unspecified fracture of left femur, initial encounter for closed fracture
--- NOTE | 2019-11-10 12:04 | Nephrology Consultation ---
Date of Consultation November 10, 2019 Assessment & Plan (1) Acute hyponatremia: Chely Admitted after a fall at home and found to have closed left femur fracture. On admission she was found to have acute hyponatremia and GABRIELA, sodium 121, creatinine 1.3, urine osmolality above 400. received low-dose tolvaptan yesterday with sodium slightly improved now to 127. hyperkalemia resolved. She does have history of repeated episode of chronic hyponatremia. Hyponatremia seems to be multifactorial with acute pain after fall, questionable effect from Bactrim with potassium retention and loss of sodium although urine sodium is not elevated as we would expect. -- avoid any further IV fluid or fluid restriction -- repeat sodium, will consider another dose of tolvaptan if needed -- liberalize salt in diet -- low dose loop diuretics can be added to help with free water clearance and improve sodium level -- if sodium level normalized, it would be okay to resume Bactrim on discharge as recommended by ID to complete 3 months course. will follow Thank you for allowing me to participate in your patient's care. 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 nephrology consult was requested as she was found to have acute hyponatremia and GABRIELA. [facility] records are reviewed in detail during patient's visit. Chely had a fall at home yesterday and she was found to have left femoral fracture on imaging at ER. Admission lab showed acute hyponatremia and GABRIELA, serum sodium was 121 and creatinine was 1.3 with baseline creatinine 0.9-1.0. She had history of off and on hyponatremia for several years. Urine osmolality was elevated above 400 although urine sodium was relatively low. found to have hyperkalemia with potassium around 5.4-5.5, has not been on SANTI-inhibitor or ARB. Creatinine was 1.3 which slightly improved to 1.2 this morning. Since admission she received at least 2 L of normal saline however with normal saline her sodium stayed low at 123 to 124. blood pressure has been stable. History of hypothyroidism but TSH has been normal. He had history of being on hydrochlorothiazide before but has not been on it recently. Has been taking NSAID regularly. she has been on Bactrim for chronic nonhealing wound/ infection at right TKA. She was seen by orthopedic and plan for surgery however currently postponed because of hyponatremia. Normal saline was stopped yesterday afternoon and add dose of tolvaptan 7.5 mg was given. Repeat sodium this morning was 127. Allergies Allergy/AdvReac Type Severity Reaction Status Date / Time Penicillins Allergy Unknown UNKNOWN Verified 10/28/19 09:40 bacitracin Allergy Unknown Verified 10/28/19 09:40 [From Neosporin ([id number])] neomycin Allergy Unknown Verified 10/28/19 09:40 [From Neosporin ([id number])] polymyxin B Allergy Unknown Verified 10/28/19 09:40 [From Neosporin ([id number])] Home Medications Home Medications Medication Instructions Recorded Confirmed Type cholecalciferol (vitamin D3) 25 1,000 units PO 1200 12/24/17 11/08/19 History mcg (1,000 unit) capsule cyanocobalamin (vitamin B-12) 1,000 mcg PO 1200 12/24/17 11/08/19 History 1,000 mcg capsule ibuprofen 200 mg tablet 200 mg PO Q6H PRN 09/28/18 11/08/19 History magnesium oxide 400 mg PO TID cap 09/28/18 11/08/19 History apixaban 5 mg tablet 5 mg PO BID #180 tab 02/09/19 11/08/19 Rx buspirone 10 mg tablet 10 mg PO BID #60 tab 03/14/19 11/08/19 Rx montelukast 10 mg tablet 10 mg PO QPM #7 tab 04/13/19 11/08/19 Rx venlafaxine 150 mg 150 mg PO QAM #30 cap 06/15/19 11/08/19 Rx capsule,extended release 24 hr metformin 1,000 mg tablet 1,000 mg PO BID #180 tab 07/18/19 11/08/19 Rx sulfamethoxazole 800 1 tab PO BID #60 tab 08/02/19 11/08/19 Rx mg-trimethoprim 160 mg tablet metoprolol succinate 100 mg 100 mg PO BID #60 tab 08/18/19 11/08/19 Rx tablet,extended release 24 hr levothyroxine 100 mcg tablet 100 mcg PO QAM #90 tab 08/23/19 11/08/19 Rx albuterol sulfate 2 puffs INHALATION Q4H PRN 09/26/19 11/08/19 History amiodarone 200 mg PO QAM 09/26/19 11/08/19 History naproxen sodium [Aleve] 440 mg PO BID PRN 09/26/19 11/08/19 History diltiazem HCl 360 mg 360 mg PO DAILY #30 cap 10/10/19 11/08/19 Rx capsule,extended release 24 hr atorvastatin 40 mg tablet 40 mg PO QPM #90 tab 10/11/19 11/08/19 Rx Patient History Medical History Acquired claw toe of left foot (Acute) Acquired hallux valgus of right foot (Acute) Acquired hammer toe of right foot (Acute) Acute renal failure "FROM A FALL." RESOLVED Anxiety (Chronic) Arterial hemorrhage (Acute) PT CANNOT RECALL Asthma (Chronic) RES INH USE DAILY/ NOT WELL CONTROLLED DURING ALLERGY SEASON Cellulitis of third toe, left (Resolved) Depression (Chronic) Diabetes mellitus with diabetic polyneuropathy (Acute) Diabetic foot infection (Resolved 08/25/13) BILAT> BOTH RESOLVED History of amputation of left great toe (Acute) History of cardioversion X2. LAST ONE APPROX 2014 Hypercholesteremia (Chronic) Hypertension (Chronic) Hypothyroidism Morbid obesity Osteoarthritis Osteomyelitis OF A TOE LEFT FOOT Paroxysmal a-fib ON ELIQUIS. S/P FAILED CARDIOVERSIONS X2. PER CARDIO NOT A CANDIDATE FOR ABLATION. RATE HAS BEEN DIFFICULT TO CONTROL AT TIMES, BUT PER MOST RECENT CARDIO NOTE 09/2019, RATE IMPROVED WITH ADDITION OF DILTIAZEM. PT IS ASYMPTOMATIC. Patellar fracture Sleep apnea NO CPAP Surgical History History of amputation of lesser toe of left foot (Acute) History of amputation of lesser toe of right foot (Acute) History of colonoscopy History of dilatation and curettage History of esophagogastroduodenoscopy (EGD) History of right knee surgery REPLACEMENT > ON BACTRIM FOR INFECTED HARDWARE. SURGERY PENDING APPROX 6 MOS Family History Sister Breast cancer Father Diabetes Hypertension Other Family history non-contributory Heart disease Social History Smoking Status: Former smoker Number of Years Since Quit: 5; Second Hand Exposure: No; Hx Alcohol Use: Yes Alcohol type: hard liquor Hx Substance Use: No Preferred Language: Gabonese Communication Ability: Effective System Auditor Required: No Beliefs That Will Affect Care: None marital status: Single Current Living Situation: Alone Feels Safe at Home: Yes Safety Concerns: Feels Safe At This Time Review of Systems Review of Systems: All systems reviewed & are unremarkable except as noted in HPI & below Physical Exam Constitutional: WD/WN, vitals as above + morbidly obese; no acute distress Eyes: PERRL, conjunctivae normal, anicteric sclerae ENMT: external ear and nose normal, oropharynx normal Ears: no hearing impairment Neck: normal visual inspection and trachea midline Respiratory: normal respiratory effort, lungs clear to auscultation no cough Auscultation: no crackles, no rales and no wheezes Cardiovascular: Rate/Rhythm: + irregularly irregular Heart Sounds: normal S1 and normal S2 Extremities: + edema Gastrointestinal (Abdomen): normal bowel sounds, soft, nontender, no hepato splenomegaly Percussion/Palpation: abdomen nontender, no guarding and abdomen not rigid Musculoskeletal: Extremities: extremities normal to inspection Gait: normal gait Skin: no rashes, warm and dry Neurologic: awake; no focal motor deficits and not confused Psychiatric: A+Ox3, euthymic affect Results & Data Vital Signs (Past 12 Hours) Vital Signs Temp Pulse Pulse Resp BP Pulse Ox 11/10/19 11:06 36.8 C 78 18 100/61 92 11/10/19 09:21 71 11/10/19 07:21 36.8 C 88 18 112/74 95 11/10/19 04:31 89 20 93 11/10/19 03:44 36.8 C 81 20 106/66 91 11/10/19 01:55 77 PG Care Time/CCT Total # of Minutes Spent Total Time Spent with Patient: Total time spent is greater than 50% in coordination of care (as documented) at patient's floor/unit and/or counseling patient: Coding Level of Care Code 98509 Inpt Consult Level 5 Diagnoses Acute hyponatremia E87.1 Closed fracture of proximal end of left femur S72.002A Anemia D64.9 Hypertension I10 Hypercholesteremia E78.00 Acute kidney injury N17.9
[2019-11-10] MEDS ORDERED: TOLVAPTAN 15 MG TABLET PO STA (13:55)
[2019-11-10] MEDS: CHOLECALCIFEROL 1,000 UNITS 25 MCG TAB PO SCH (14:48)
[2019-11-10] MEDS: CYANOCOBALAMIN 500 MCG TABLET (VITAMIN B-12) PO SCH (14:49)
[2019-11-10] MEDS: cefTRIAXone SODIUM 2,000 MG in DEXTROSE 5% 50 ML IV SCH (16:59)
[2019-11-10] MEDS: FUROSEMIDE 20 MG TAB PO SCH (20:04)
[2019-11-10] MEDS: DOCUSATE SODIUM/SENNA 50/8.6MG TAB PO SCH (20:05)
[2019-11-10] MEDS: ATORVASTATIN 40 MG TAB PO SCH (20:05)
[2019-11-10] MEDS: MONTELUKAST SODIUM 10 MG TABLET PO SCH (20:06)
[2019-11-10] MEDS ORDERED: SODIUM CHLORIDE 1 GM TABLET PO STA (22:30)
[2019-11-11] MEDS: LEVOTHYROXINE SODIUM 100 MCG TABLET PO SCH (05:54)
[2019-11-11] MEDS: LORazepam 0.5 MG TAB PO PRN ×2 (06:02→16:06)
[2019-11-11 06:28] LABS: Hematocrit (blood only) 24.4 % (37-47); Hemoglobin 7.8 g/dL (12.0-16.0); Mean Corpuscular Hemoglobin 30.7 pg (25-34); Mean Corpuscular Volume 96.1 fL (80-100); Mean Platelet Volume 8.8 fL (7.4-10.4); Platelet Count 224 K/uL (130-400); RDW Coefficient of Variation 16.7 % (11.5-14.5); RDW Standard Deviation 59.1 fL (36.4-46.3); Red Blood Count 2.54 M/uL (4.2-5.4); White Blood Count 7.86 K/uL (4.8-10.8)
[2019-11-11 06:55] LABS: Est GFR (African American) 60.5; Est GFR (Non-African American) 52.2; Potassium 4.7 mmol/L (3.5-5.1)
[2019-11-11 06:56] LABS: Albumin Level 2.5 gm/dl (3.4-5.0); BUN Creatinine Ratio 14.8 (10-20); Calcium 8.1 mg/dl (8.5-10.1); Creatinine Clr Calc Pharmacy 77.7 ml/min; Magnesium 2.5 mg/dl (1.8-2.4); Phosphorus 3.9 mg/dl (2.5-4.9)
[2019-11-11] MEDS ORDERED: SODIUM CHLORIDE 0.9% 250 ML IV PRN (07:11)
[2019-11-11] MEDS: OXYCODONE HCL IR 5 MG TAB (IMMEDIATE RELEASE) PO PRN ×3 (07:30→20:34)
[2019-11-11] MEDS: VENLAFAXINE HCL XR 150 MG CAPXR PO SCH (08:20)
[2019-11-11] MEDS: AMIODARONE 200 MG TAB PO SCH (08:20)
[2019-11-11] MEDS: MAGNESIUM OXIDE 400 MG TAB PO SCH ×3 (08:22→20:36)
[2019-11-11] MEDS: dilTIAZem HCL 180 MG CAPCR PO SCH (08:22)
[2019-11-11] MEDS: METOPROLOL SUCC 50MG EXT REL TAB PO SCH ×2 (08:23→20:36)
[2019-11-11] MEDS ORDERED: TOLVAPTAN 15 MG TABLET PO STA (09:56)
--- NOTE | 2019-11-11 10:00 | Nephrology Progress Note ---
Date of Service November 11, 2019 Assessment & Plan (1) Acute hyponatremia: Chely Admitted after a fall at home and found to have closed left femur fracture. On admission she was found to have acute hyponatremia and GABRIELA, sodium 121, creatinine 1.3, urine osmolality above 400. received low-dose tolvaptan yesterday with sodium slightly improved now to 127. hyperkalemia resolved. She does have history of repeated episode of chronic hyponatremia. Hyponatremia seems to be multifactorial with acute pain after fall, questionable effect from Bactrim with potassium retention and loss of sodium although urine sodium is not elevated as we would expect. Na 129 this am. -- Tolvaptan 15 mg x 1 dose now -- continue lasix 20 mg po daily -- liberalize salt in diet -- OK to have surgery -- if sodium level normalized, it would be okay to resume Bactrim on discharge as recommended by ID to complete 3 months course. will follow Admission and Anticipated Discharge Date Admission Date: November 08, 2019 Subjective Chely was seen and examined this am. Overall doing well, no specific concerns. Getting PRBC for Hb 7.6. Na improved to 129. Plan for hip surgery this afternoon. BP stable. Review of Systems Review of Systems: All systems reviewed & are unremarkable except as noted in HPI & below Physical Exam Constitutional: WD/WN, vitals as above + morbidly obese; no acute distress Neck: normal visual inspection and trachea midline Respiratory: normal respiratory effort, lungs clear to auscultation no cough Auscultation: no crackles, no rales and no wheezes Cardiovascular: Rate/Rhythm: + irregularly irregular Heart Sounds: normal S1 and normal S2 Extremities: + edema Skin: no rashes, warm and dry Neurologic: awake; no focal motor deficits and not confused Psychiatric: A+Ox3, euthymic affect Results & Data ([facility]) Vital Signs (Past 12 Hours) Vital Signs Temp Pulse Pulse Resp BP BP Pulse Ox 11/11/19 09:45 36.6 C 65 18 106/74 92 11/11/19 09:15 36.8 C 74 16 125/82 95 11/11/19 08:45 36.8 C 77 18 128/78 93 11/11/19 08:24 36.5 C 75 16 136/83 97 11/11/19 08:07 36.7 C 75 16 118/74 11/11/19 07:06 36.8 C 77 18 104/68 90 11/11/19 02:34 36.9 C 76 18 97/63 L 94 11/10/19 22:57 36.8 C 83 20 119/68 93 11/10/19 22:20 74 123/78 PG Care Time/CCT Total # of Minutes Spent Total Time Spent with Patient: Total time spent is greater than 50% in coordination of care (as documented) at patient's floor/unit and/or counseling patient: Coding Level of Care Code 15577 Subseq Hosp Care Lvl 3 Diagnoses Acute hyponatremia E87.1
[2019-11-11] MEDS: FUROSEMIDE 20 MG TAB PO SCH (11:29)
[2019-11-11] MEDS: CYANOCOBALAMIN 500 MCG TABLET (VITAMIN B-12) PO SCH (11:30)
[2019-11-11] MEDS: CHOLECALCIFEROL 1,000 UNITS 25 MCG TAB PO SCH (11:30)
[2019-11-11 13:16] LABS: BUN Creatinine Ratio 16.1 (10-20); Calcium 8.4 mg/dl (8.5-10.1); Creatinine Clr Calc Pharmacy 90.1 ml/min; Est GFR (African American) 72.4; Est GFR (Non-African American) 62.5; Potassium 4.6 mmol/L (3.5-5.1)
[2019-11-11 13:18] LABS: Hematocrit (blood only) 27.7 % (37-47); Hemoglobin 8.8 g/dL (12.0-16.0); Mean Corpuscular Hemoglobin 29.9 pg (25-34); Mean Corpuscular Volume 94.2 fL (80-100); Mean Platelet Volume 8.8 fL (7.4-10.4); Platelet Count 216 K/uL (130-400); RDW Coefficient of Variation 16.7 % (11.5-14.5); RDW Standard Deviation 57.2 fL (36.4-46.3); Red Blood Count 2.94 M/uL (4.2-5.4); White Blood Count 8.19 K/uL (4.8-10.8)
[2019-11-11 13:19] LABS: Mean Corpuscular Hgb Conc 31.8 g/dL (32-36)
--- NOTE | 2019-11-11 14:01 | Hospitalist Progress Note ---
Date of Service November 11, 2019 Assessment & Plan (1) Closed fracture of proximal end of left femur: With intertrochanteric extension. - Consulted Dr. Guzman -> Plan for surgery today. - Hgb repleted to 8.8. Hopefully anesthesia comfortable with this. - Post-op care per primary team (2) Acute hyponatremia: Suspected high fluid, low protein diet especially with alcohol and seltzer use. Urine osms indicate SIADH, so pointing away from alcohol and seltzer as cause. - Holding IV fluids - Nephrology consulted - Holding Bactrim; using tolvaptan as well to treat SIADH. - Slowly improving. 129 today. (3) Asymptomatic bacteriuria: Although usually would not treat this; in setting of a patient with chronically infected right TKA and requiring a hip operation started 2g IV ceftriaxone to cover in case of a true infection. - Urine cx from 11/07 growing Klebsiella pneumoniae - Continue ceftriaxone through today. (4) Atrial fibrillation: Appears to be persistent at this stage. - Continue home regimen: amiodarone, diltiazem, metoprolol - Restart anticoagulation as able (5) Anemia: Suspect combination of NSAIDs and Eliquis use, along with possible bleeding at fracture site. No melena or bright red blood in stool to suggest acute GI bleed. Prior severe iron deficiency anemia in July 2018 with normal EGD colonoscopy at that time. - Holding further NSAIDs and Eliquis - Transfused 3 units PRBCs prior to surgery on 11/10 (6) VALERIE (obstructive sleep apnea): Pt refusing CPAP @ night. - Monitor for nocturnal hypoxia and treat with oxygen via nasal cannula (7) Hypothyroid: TSH this admission was 2.9. - Continue her usual levothyroxine 100 mcg p.o. daily (8) Alcohol use: Monitor for alcohol withdrawal. Possible cause of hyponatremia. (9) Depression: Very anxious at present. - Continue venlafaxine ER 150 mg p.o. daily - Continue buspirone 10 mg p.o. twice daily (10) Chronic infection of knee joint prosthesis: - Hold chronic Bactrim for chronic suppression due to her hyponatremia. - Restart as able. (11) Diabetes: HbA1C was 6.0% in July. No suggestion she required insulin on admission. - Diabetic diet (12) DVT prophylaxis: Resume Eliquis once cleared by surgery Admission and Anticipated Discharge Date Admission Date: November 08, 2019 Subjective Anxious and upset about delay in surgery from this morning. Pain is fairly controlled. Reports no fevers/chills, chest pain, shortness of breath, abdominal pain, nausea, or vomiting. Physical Exam Constitutional: WD/WN, vitals as above Eyes: EOM intact bilaterally; no conjunctival abnormality ENMT: external ear and nose normal, oropharynx normal Neck: trachea midline, no thyromegaly normal visual inspection Respiratory: normal respiratory effort, lungs clear to auscultation no respiratory distress Cardiovascular: RRR, no murmur, no edema Gastrointestinal (Abdomen): Inspection/Auscultation: abdomen normal to inspection; abdomen not distended Musculoskeletal: Extremities: + extremities abnormal to inspection (Left leg in traction) Skin: no rashes, warm and dry Neurologic: moves all extremities and awake Psychiatric: Orientation: alert, oriented to person and cooperative Results & Data Results & Data ([facility]) Vital Signs (Past 12 Hours) Vital Signs Temp Pulse Pulse Resp BP BP Pulse Ox 11/11/19 11:45 36.6 C 87 18 118/80 97 11/11/19 11:09 36.5 C 156 H 18 127/83 98 11/11/19 10:09 36.6 C 74 20 118/81 92 11/11/19 09:45 36.6 C 65 18 106/74 92 11/11/19 09:15 36.8 C 74 16 125/82 95 11/11/19 08:45 36.8 C 77 18 128/78 93 11/11/19 08:24 36.5 C 75 16 136/83 97 11/11/19 08:07 36.7 C 75 16 118/74 11/11/19 07:06 36.8 C 77 18 104/68 90 11/11/19 02:34 36.9 C 76 18 97/63 L 94 PG Care Time/CCT Total # of Minutes Spent Total Time Spent with Patient: Total time spent is greater than 50% in coordination of care (as documented) at patient's floor/unit and/or counseling patient: Coding Level of Care Code 01289 Subseq Hosp Care Lvl 3 Diagnoses Closed fracture of proximal end of left femur S72.002A Acute hyponatremia E87.1 Asymptomatic bacteriuria R82.71 Atrial fibrillation I48.0 Atrial fibrillation type: paroxysmal Anemia D64.9 VALERIE (obstructive sleep apnea) G47.33 Hypothyroid E03.9 Hypothyroidism type: acquired Alcohol use Z78.9 Depression F32.9 Depression Type: unspecified Chronic infection of knee joint prosthesis T84.59XA; Z96.659 Encounter type: initial encounter Diabetes E11.40 Diabetes mellitus type: type 2 Diabetes mellitus care home insulin use: without sales analyst use Diabetes mellitus complication status: with neurologic complications Diabetes mellitus complication detail: with unspecified neuropathy DVT prophylaxis Z29.9 (1) Atrial fibrillation Atrial fibrillation type: paroxysmal Qualified Code(s): I48.0 - Paroxysmal atrial fibrillation (2) Hypothyroid Hypothyroidism type: acquired Qualified Code(s): E03.9 - Hypothyroidism, unspecified (3) Depression Depression Type: unspecified Qualified Code(s): F32.9 - Major depressive disorder, single episode, unspecified (4) Chronic infection of knee joint prosthesis Encounter type: initial encounter Qualified Code(s): T84.59XA - Infection and inflammatory reaction due to other internal joint prosthesis, initial encounter; Z96.659 - Presence of unspecified artificial knee joint (5) Diabetes Diabetes mellitus type: type 2 Diabetes mellitus sales analyst insulin use: without care home use Diabetes mellitus complication status: with neurologic complications Diabetes mellitus complication detail: with unspecified neuropathy Qualified Code(s): E11.40 - Type 2 diabetes mellitus with diabetic neuropathy, unspecified
[2019-11-11] MEDS: cefTRIAXone SODIUM 2,000 MG in DEXTROSE 5% 50 ML IV SCH (16:06)
--- NOTE | 2019-11-11 19:29 | Progress Notes ---
DATE: 11/11/2019 SUBJECTIVE: A 59-year-old female with multiple medical comorbidities, admitted with a left comminuted intertrochanteric fracture. Her surgery has been canceled again today. Her sodium was improved this morning, but now back down to a lower level and unacceptable from the anesthesia standpoint. No new complaints. OBJECTIVE: VITAL SIGNS: Temperature 36.5. Vital signs stable. GENERAL: Shows a pleasant, middle-aged female. She is lying in bed, looks reasonably comfortable. EXTREMITIES: Examination of the left leg reveals her leg to be shortened and externally rotated. She can dorsiflex and plantarflex her toes. LABORATORY DATA: Her hemoglobin is 8.8. Hematocrit 27.7. Sodium this morning was 129, but then this afternoon back down to 126. This was around her near baseline when she came in. ASSESSMENT: A 59-year-old very complex patient with multiple medical comorbidities with a left comminuted intertrochanteric fracture. She is very high risk. Her surgery unfortunately has been canceled again today. PLAN: At this point, we will plan on doing her surgery tomorrow. Dr. Mcleod is energy sales consultant. Apparently, he is not comfortable doing the surgery. I am not available tomorrow and he thought it best to transfer her to a tertiary care center, which I certainly think is reasonable concerning her multiple medical comorbidities and the difficulty of surgery in a patient with a BMI of 57. I explained this to the patient today. The medicine service/hospitalist service is going to assist in transfer at her desire.
[2019-11-11] MEDS: DOCUSATE SODIUM/SENNA 50/8.6MG TAB PO SCH (20:35)
[2019-11-11] MEDS: MONTELUKAST SODIUM 10 MG TABLET PO SCH (20:35)
[2019-11-11] MEDS: ATORVASTATIN 40 MG TAB PO SCH (20:35)
[2019-11-11] MEDS: ALBUTEROL HFA 8 GM INHALER INH PRN (20:39)
[2019-11-12] MEDS: HYDROmorphone INJ 0.5 MG/0.5 ML SYR IV PRN ×3 (05:02→13:01)
[2019-11-12] MEDS: LEVOTHYROXINE SODIUM 100 MCG TABLET PO SCH (06:09)
[2019-11-12] MEDS: VENLAFAXINE HCL XR 150 MG CAPXR PO SCH (08:18)
[2019-11-12] MEDS: METOPROLOL SUCC 50MG EXT REL TAB PO SCH (08:19)
[2019-11-12] MEDS: FUROSEMIDE 20 MG TAB PO SCH (08:19)
[2019-11-12] MEDS: AMIODARONE 200 MG TAB PO SCH (08:20)
[2019-11-12] MEDS: dilTIAZem HCL 180 MG CAPCR PO SCH (08:20)
[2019-11-12] MEDS: MAGNESIUM OXIDE 400 MG TAB PO SCH (08:20)
[2019-11-12 08:57] LABS: Hematocrit (blood only) 28.9 % (37-47); Hemoglobin 8.6 g/dL (12.0-16.0); Mean Corpuscular Hemoglobin 28.4 pg (25-34); Mean Corpuscular Hgb Conc 29.8 g/dL (32-36); Mean Corpuscular Volume 95.4 fL (80-100); Mean Platelet Volume 8.7 fL (7.4-10.4); Platelet Count 219 K/uL (130-400); RDW Standard Deviation 58.3 fL (36.4-46.3); Red Blood Count 3.03 M/uL (4.2-5.4); White Blood Count 6.37 K/uL (4.8-10.8)
[2019-11-12 09:33] LABS: Albumin Level 2.5 gm/dl (3.4-5.0); BUN Creatinine Ratio 15.6 (10-20); Calcium 8.6 mg/dl (8.5-10.1); Creatinine Clr Calc Pharmacy 102.4 ml/min; Est GFR (African American) 84.5; Est GFR (Non-African American) 72.9; Potassium 4.6 mmol/L (3.5-5.1)
[2019-11-12] MEDS: LORazepam 0.5 MG TAB PO PRN (10:19)
--- NOTE | 2019-11-12 10:29 | Discharge Summary ---
Date of Service November 12, 2019 Admission HPI Per Admitting Provider Gillian Rouse is a 59 year old female who presents to the ER after a fall at home. She reports since Thursday her left upper leg has been causing pain. She had been relating this to a muscle spasm/strain and taking Aleve with her Xarelto despite knowing increased risk of bleeding with this. She also has chronic arthritis in her left knee with what she describes as a meniscal tear. She tried staying off her leg most of the weekend but today stood up trying to walk and her left leg felt very weak and it "gave out" and she fell backwards onto the floor. No dizziness, chest pain or shortness of breath. No prior history of osteoporosis. Last drank small cup of water with her thyroid medication at 7:30am. Last ate last night. Last took Eliquis 10pm yesterday. Only pill she took this morning was levothyroxine. She also notes a history of drinking 2-3 vodkas/day due to her chronic pains and helps her to relax. She denies any history of withdrawals or seizures. Former smoker quit 5-6 years ago. Tried calling her sister over the phone but without answer. In the ER she was noted to have acute hyponatremia and left hip fracture on imaging. She was referred to the medicine team for admission. Principal Diagnosis Acute left femur fracture SIADH Discharge Exam Constitutional WD/WN, vitals as above Eyes EOM intact bilaterally; no conjunctival abnormality ENMT external ear and nose normal, oropharynx normal Neck trachea midline, no thyromegaly normal visual inspection Respiratory normal respiratory effort, lungs clear to auscultation no respiratory distress Cardiovascular RRR, no murmur, no edema Gastrointestinal (Abdomen) Inspection/Auscultation: abdomen normal to inspection; abdomen not distended Musculoskeletal Extremities: + extremities abnormal to inspection (Left leg in traction) Skin no rashes, warm and dry Neurologic moves all extremities and awake Psychiatric Orientation: alert, oriented to person and cooperative Discharge Data Allergies Allergy/AdvReac Type Severity Reaction Status Date / Time Penicillins Allergy Unknown UNKNOWN Verified 10/28/19 09:40 bacitracin Allergy Unknown Verified 10/28/19 09:40 [From Neosporin ([id number])] neomycin Allergy Unknown Verified 10/28/19 09:40 [From Neosporin ([id number])] polymyxin B Allergy Unknown Verified 10/28/19 09:40 [From Neosporin ([id number])] Consultations 11/08/19 12:37 ED Decision to Admit Stat 11/08/19 13:30 Consult Orthopedic Surgery Routine 11/08/19 14:03 Consult Anesthesiology Routine 11/09/19 16:08 Consult Nephrology Routine 11/12/19 09:51 Burn CD for patient Routine Procedures Performed Operation Date: 11/09/19 07:00 <No data on this case meets the specified criteria> Operation Date: 11/12/19 07:30 <No data on this case meets the specified criteria> Ordered Studies 11/08/19 10:16 CT abd pelvis IV con only Stat CT cervical spine wo con Stat 11/08/19 10:17 CT head/brain wo con Stat Hospital Course (1) Closed fracture of proximal end of left femur: With intertrochanteric extension. - Consulted Dr. Guzman from [facility]. He was comfortable doing this procedure, but over the weekend, a different orthopedic surgeon is on and feels this case should be handled at a tertiary care center. - Hgb repleted to 8.8 on 11/10. Stable on 11/11 at 8.6. - Working with [facility] for possible transfer. (2) Acute hyponatremia: Initially suspected high fluid, low protein diet especially with alcohol and seltzer use. Urine osms indicate SIADH, so pointing away from alcohol and seltzer as cause. Possibly her chronic Bactrim. - Nephrology consulted - Holding Bactrim; using tolvaptan as well to treat SIADH. Received tolvaptan 15 mg PO on 11/09 & 11/10. - Slowly improving. 131 on 11/11. Will give additional tolvaptan 15 mg PO today prior to transfer. (3) Asymptomatic bacteriuria: Although usually would not treat this; in setting of a patient with chronically infected right TKA and requiring a hip operation started 2g IV ceftriaxone to cover in case of a true infection. - Urine cx from 11/07 growing Klebsiella pneumoniae - Finished ceftriaxone on 11/10.. (4) Atrial fibrillation: Appears to be persistent at this stage. - Continue home regimen: amiodarone, diltiazem, metoprolol - Restart anticoagulation as able (Eliquis held since admission on 11/07.) (5) Anemia: Suspect combination of NSAIDs and Eliquis use, along with possible bleeding at fracture site. No melena or bright red blood in stool to suggest acute GI bleed. Prior severe iron deficiency anemia in July 2018 with normal EGD colonoscopy at that time. - Holding further NSAIDs and Eliquis - Transfused 2 units PRBCs on 11/09 with thought that she was going to surgery, then 1 more unit PRBCs on 11/10 with hgb of 7.8, again thinking she was going to surgery. - On 11/11, hgb is 8.6 and was stable from yesterday at 8.8 (without any blood products in between). (6) VALERIE (obstructive sleep apnea): Pt refusing CPAP @ night. - Monitor for nocturnal hypoxia and treat with oxygen via nasal cannula (7) Hypothyroid: TSH this admission was 2.9. - Continue her usual levothyroxine 100 mcg p.o. daily (8) Alcohol use: Monitor for alcohol withdrawal. Possible cause of hyponatremia (though now considered less so - see above). (9) Depression: Very anxious at times. - Continue venlafaxine ER 150 mg p.o. daily - Continue buspirone 10 mg p.o. 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 - Restart as able. (11) Diabetes: HbA1C was 6.0% in July. No suggestion she required insulin on admission. - Diabetic diet (12) DVT prophylaxis: Resume Eliquis once cleared by surgery Total Time Total Time Spent Total Time Spent (In Minutes): 35 Discharge Plan Discharge Items Reason For Visit: LEFT HIP FRACTURE, HYPONATREMIA Follow-up/Referrals: Pro,Parveen Copeland MD [Primary Care Provider] - Stand-Alone Forms: [facility] Medications and DC Order Prescriptions: No Action cholecalciferol (vitamin D3) 1,000 unit capsule 1,000 units PO 1200 RF: 0 cyanocobalamin (vitamin B-12) 1,000 mcg capsule 1,000 mcg PO 1200 RF: 0 magnesium oxide 400 mg magnesium capsule 400 mg PO TID RF: 0 Eliquis 5 mg tablet 5 mg PO BID Qty: 180 RF: 3 buspirone 10 mg tablet 10 mg PO BID Qty: 60 RF: 5 montelukast 10 mg tablet 10 mg PO QPM Qty: 7 RF: 0 venlafaxine 150 mg capsule,extended release 24hr 150 mg PO QAM Qty: 30 RF: 5 metformin 1,000 mg tablet 1,000 mg PO BID Qty: 180 RF: 1 metoprolol succinate 100 mg tablet extended release 24 hr 100 mg PO BID Qty: 60 RF: 3 levothyroxine 100 mcg tablet 100 mcg PO QAM Qty: 90 RF: 3 atorvastatin 40 mg tablet 40 mg PO QPM Qty: 90 RF: 3 ibuprofen [Advil] 200 mg tablet 200 mg PO Q6H PRN (Reason: Pain) RF: 0 sulfamethoxazole-trimethoprim [Bactrim DS] 800-160 mg tablet 1 tab PO BID Qty: 60 RF: 3 diltiazem HCl 360 mg capsule,extended release 24hr 360 mg PO DAILY Qty: 30 RF: 7 amiodarone 200 mg tablet 200 mg PO QAM RF: 0 albuterol sulfate 90 mcg/actuation HFA aerosol inhaler 2 puffs inhalation Q4H PRN (Reason: Shortness Of Breath Or Wheezing) RF: 0 naproxen sodium [Aleve] 220 mg Tablet 440 mg PO BID PRN (Reason: Arthritis Pain) RF: 0 Admission Data Admit Date/Time: 11/08/19 13:46 Attending Provider: Alton Arias Admit Provider: Carlos Escudero Primary Care Provider: Parveen Fishman Other Providers: Hal Guzman ; Armen Joseph ; Alton Arias ; Caroline Vela ; GovindEliceo ayala ; Mir Miranda [facility] ; [facility] [place] Level of Care Code D/C Day Management >30 mins Diagnoses Closed fracture of proximal end of left femur S72.002A Acute hyponatremia E87.1 Asymptomatic bacteriuria R82.71 Atrial fibrillation I48.0 Atrial fibrillation type: paroxysmal Anemia D64.9 VALERIE (obstructive sleep apnea) G47.33 Hypothyroid E03.9 Hypothyroidism type: acquired Alcohol use Z78.9 Depression F32.9 Depression Type: unspecified Chronic infection of knee joint prosthesis T84.59XA; Z96.659 Encounter type: initial encounter Diabetes E11.40 Diabetes mellitus type: type 2 Diabetes mellitus senior care insulin use: without senior care use Diabetes mellitus complication status: with neurologic complications Diabetes mellitus complication detail: with unspecified neuropathy DVT prophylaxis Z29.9
[2019-11-12] MEDS ORDERED: TOLVAPTAN 15 MG TABLET PO STA (11:05)
[2019-11-12] MEDS: CYANOCOBALAMIN 500 MCG TABLET (VITAMIN B-12) PO SCH (11:37)
[2019-11-12] MEDS: CHOLECALCIFEROL 1,000 UNITS 25 MCG TAB PO SCH (11:37)
--- NOTE | 2019-11-12 14:17 | Nephrology Progress Note ---
Date of Service November 12, 2019 Assessment & Plan (1) Acute hyponatremia: Admitted after a fall at home and found to have closed left femur fracture. On admission, she was found to have acute hyponatremia and GABRIELA (sodium 121, creatinine 1.3, urine osmolality above 400). Received tolvaptan a nd diuretics. Noted history of repeated episode of chronic hyponatremia. Hyponatremia is multifactorial with acute pain, fluid retention, poor oral solute intake, and otherwise suspected chronic component of SIADH. I would suggest a repeat urine osmolality level. Close monitoring will be necessary. These recommendations were reviewed with the patient this morning prior to transfer. Please call with questions or concerns. Admission and Anticipated Discharge Date Admission Date: November 08, 2019 Subjective No acute events overnight. Seen and evaluated this AM. Serum sodium stable. Reasonable pain control. Plan for transfer for surgery reviewed. Review of Systems Review of Systems: All systems reviewed & are unremarkable except as noted in HPI & below Physical Exam Constitutional: well developed and + morbidly obese; no acute distress Eyes: no scleral abnormality and no corneal abnormality ENMT: Mouth: no oral mucosal abnormality and oral mucous membranes not dry Neck: normal visual inspection and trachea midline Respiratory: normal respiratory effort Auscultation: lungs clear to auscultation bilaterally Cardiovascular: Rate/Rhythm: regular rate Heart Sounds: normal S1 and normal S2 Extremities: no edema Gastrointestinal (Abdomen): Percussion/Palpation: abdomen soft; abdomen nontender Musculoskeletal: Extremities: no cyanosis and no clubbing Skin: normal turgor; no lesions Neurologic: Motor/Sensory: no tremor and no asterixis Psychiatric: Orientation: alert and oriented x 3 Results & Data ([facility]) Vital Signs (Past 12 Hours) Vital Signs Temp Pulse Pulse Resp BP BP Pulse Ox 11/12/19 11:22 36.7 C 83 16 125/72 92 11/12/19 11:17 36.8 C 62 22 119/77 107/65 98 11/12/19 09:58 70 11/12/19 07:25 36.8 C 62 22 119/77 98 11/12/19 04:05 36.8 C 78 20 131/79 96 Laboratory Results Laboratory Results - last 24 hr 11/11/19 11/11/19 11/11/19 17:24 18:38 20:25 WBC RBC Hgb Hct MCV MCH MCHC RDW Std Deviation RDW Coeff of Yazmin Plt Count MPV Sodium 132 L Potassium Chloride Carbon Dioxide Anion Gap BUN Creatinine Est Cr Clr Drug Dosing Est GFR ( Amer) Est GFR (Non-Af Amer) BUN/Creatinine Ratio Glucose POC Glucose 101 H 110 H Calcium Phosphorus Magnesium Albumin 11/12/19 11/12/19 11/12/19 07:34 08:46 08:46 WBC 6.37 RBC 3.03 L Hgb 8.6 L Hct 28.9 L MCV 95.4 MCH 28.4 MCHC 29.8 L RDW Std Deviation 58.3 H RDW Coeff of Yazmin 17.0 H Plt Count 219 MPV 8.7 Sodium 131 L Potassium 4.6 Chloride 98 Carbon Dioxide 28 Anion Gap 5.0 BUN 14 Creatinine 0.88 Est Cr Clr Drug Dosing 102.4 Est GFR ( Amer) 84.5 Est GFR (Non-Af Amer) 72.9 BUN/Creatinine Ratio 15.6 Glucose 104 H POC Glucose 109 H Calcium 8.6 Phosphorus 3.0 Magnesium 2.0 Albumin 2.5 L 11/12/19 11:34 WBC RBC Hgb Hct MCV MCH MCHC RDW Std Deviation RDW Coeff of Yazmin Plt Count MPV Sodium Potassium Chloride Carbon Dioxide Anion Gap BUN Creatinine Est Cr Clr Drug Dosing Est GFR ( Amer) Est GFR (Non-Af Amer) BUN/Creatinine Ratio Glucose POC Glucose 115 H Calcium Phosphorus Magnesium Albumin PG Care Time/CCT Total # of Minutes Spent Total Time Spent with Patient: Total time spent is greater than 50% in coordination of care (as documented) at patient's floor/unit and/or counseling patient: Coding Level of Care Code 18440 Subseq Hosp Care Lvl 2 Diagnoses Acute hyponatremia E87.1
--- NOTE | 2019-11-17 21:13 | Hospitalist Progress Note ---
Date of Service November 10, 2019 Assessment & Plan (1) Closed fracture of proximal end of left femur: With intertrochanteric extension. - Consulted Dr. Guzman from ortho. Planning to do surgery as soon as approved by surgery. (2) Acute hyponatremia: Initially suspected high fluid, low protein diet especially with alcohol and seltzer use. Urine osms indicate SIADH, so pointing away from alcohol and seltzer as cause. Possibly her chronic Bactrim. - Nephrology consulted - Holding Bactrim; using tolvaptan as well to treat SIADH. Received tolvaptan 15 mg PO on 11/09. (3) Asymptomatic bacteriuria: Although usually would not treat this; in setting of a patient with chronically infected right TKA and requiring a hip operation started 2g IV ceftriaxone to cover in case of a true infection. - Urine cx from 11/07 growing Klebsiella pneumoniae - Finished ceftriaxone on 11/10. (4) Atrial fibrillation: Appears to be persistent at this stage. - Continue home regimen: amiodarone, diltiazem, metoprolol - Restart anticoagulation as able (Eliquis held since admission on 11/07.) (5) Anemia: Suspect combination of NSAIDs and Eliquis use, along with possible bleeding at fracture site. No melena or bright red blood in stool to suggest acute GI bleed. Prior severe iron deficiency anemia in July 2018 with normal EGD colonoscopy at that time. - Holding further NSAIDs and Eliquis - Transfused 2 units PRBCs on 11/09 with thought that she was going to surgery, then 1 more unit PRBCs on 11/10 with hgb of 7.8, again thinking she was going to surgery. - On 11/11, hgb is 8.6 and was stable from yesterday at 8.8 (without any blood products in between). (6) VALERIE (obstructive sleep apnea): Pt refusing CPAP @ night. - Monitor for nocturnal hypoxia and treat with oxygen via nasal cannula (7) Hypothyroid: TSH this admission was 2.9. - Continue her usual levothyroxine 100 mcg p.o. daily (8) Alcohol use: Monitor for alcohol withdrawal. Possible cause of hyponatremia (though now considered less so - see above). (9) Depression: Very anxious at times. - Continue venlafaxine ER 150 mg p.o. daily - Continue buspirone 10 mg p.o. 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 - Restart as able. (11) Diabetes: HbA1C was 6.0% in July. No suggestion she required insulin on admission. - Diabetic diet (12) DVT prophylaxis: Resume Eliquis once cleared by surgery Admission and Anticipated Discharge Date Admission Date: November 08, 2019 Subjective Patient awaiting surgery. Reports no fevers/chills, chest pain, shortness of breath, abdominal pain, nausea, or vomiting. Physical Exam Constitutional: WD/WN, vitals as above Eyes: EOM intact bilaterally; no conjunctival abnormality ENMT: external ear and nose normal, oropharynx normal Neck: trachea midline, no thyromegaly normal visual inspection Respiratory: normal respiratory effort, lungs clear to auscultation no respiratory distress Cardiovascular: RRR, no murmur, no edema Gastrointestinal (Abdomen): Inspection/Auscultation: abdomen normal to inspection; abdomen not distended Musculoskeletal: Extremities: + extremities abnormal to inspection (Left leg in traction) Skin: no rashes, warm and dry Neurologic: moves all extremities and awake Psychiatric: Orientation: alert, oriented to person and cooperative PG Care Time/CCT Total # of Minutes Spent Total Time Spent with Patient: Total time spent is greater than 50% in coordination of care (as documented) at patient's floor/unit and/or counseling patient: Coding Level of Care Code 41622 Subseq Hosp Care Lvl 2 Diagnoses Closed fracture of proximal end of left femur S72.002A Acute hyponatremia E87.1 Asymptomatic bacteriuria R82.71 Atrial fibrillation I48.0 Atrial fibrillation type: paroxysmal Anemia D64.9 VALERIE (obstructive sleep apnea) G47.33 Hypothyroid E03.9 Hypothyroidism type: acquired Alcohol use Z78.9 Depression F32.9 Depression Type: unspecified Chronic infection of knee joint prosthesis T84.59XA; Z96.659 Encounter type: initial encounter Diabetes E11.40 Diabetes mellitus type: type 2 Diabetes mellitus intermediate insulin use: without superintendent [employer] use Diabetes mellitus complication status: with neurologic complications Diabetes mellitus complication detail: with unspecified neuropathy DVT prophylaxis Z29.9 (1) Atrial fibrillation Atrial fibrillation type: paroxysmal Qualified Code(s): I48.0 - Paroxysmal atrial fibrillation (2) Hypothyroid Hypothyroidism type: acquired Qualified Code(s): E03.9 - Hypothyroidism, unspecified (3) Depression Depression Type: unspecified Qualified Code(s): F32.9 - Major depressive disorder, single episode, unspecified (4) Chronic infection of knee joint prosthesis Encounter type: initial encounter Qualified Code(s): T84.59XA - Infection and inflammatory reaction due to other internal joint prosthesis, initial encounter; Z96.659 - Presence of unspecified artificial knee joint (5) Diabetes Diabetes mellitus type: type 2 Diabetes mellitus [employer] insulin use: without intermediate use Diabetes mellitus complication status: with neurologic complications Diabetes mellitus complication detail: with unspecified neuropathy Qualified Code(s): E11.40 - Type 2 diabetes mellitus with diabetic neuropathy, unspecified
== END 2019-11-12 13:29 | disposition short-term general hospital (02) | DRG 536 ==
LOC: ED 10:02 → 2W 13:46 → SUATTDRO 13:46 → 2W 14:57

== ENCOUNTER 2020-11-06 07:28 | Inpatient (IN) ==
[2020-11-06] MEDS ORDERED: ALBUT/IPRATROP 3MG/0.5MG NEB 3 ML VIAL INH STA (08:04)
--- NOTE | 2020-11-06 08:37 | XRay Report ---
XR chest 1V portable CLINICAL HISTORY: weakness COMPARISON STUDY: November 08, 2019 FINDINGS: No pneumothorax. No pleural effusion. Patchy airspace opacities are seen within bilateral lower lungs. Diffuse reticular nodular prominence of pulmonary interstitium is worsened since prior. Cardiomediastinal silhouette is mildly enlarged. Bilateral shelly are prominent. Pulmonary vasculature is indistinct.. Osseous structures: Unremarkable. Vertebral bodies are not well seen. IMPRESSION: 1. Enlarged cardiomediastinal silhouette, possible pulmonary edema. 2. Opacities at bilateral lower lungs might represent atelectasis or consolidation. ACT 112: Negative or not required by law. The above report was generated using voice recognition software. It may contain grammatical, syntax o r spelling errors. Electronically signed by: Milly Sanchez DO 11/06/2020 8:35 AM
[2020-11-06 09:18] LABS: Basophils # (auto) 0.01 K/uL (0-0.2); Basophils % (auto) 0.2 %; Eosinophils # (auto) 0.03 K/uL (0-0.5); Eosinophils % (auto) 0.6 %; Hematocrit (blood only) 32.8 % (37-47); Hemoglobin 11.3 g/dL (12.0-16.0); Immature Granulocytes # (auto) 0.01 K/uL (0.00-0.02); Immature Granulocytes % (auto) 0.2 %; Lymphocytes # (auto) 0.47 K/uL (1.2-3.4); Lymphocytes % (auto) 9.8 %; Mean Corpuscular Hemoglobin 32.8 pg (25-34); Mean Corpuscular Hgb Conc 34.5 g/dL (32-36); Mean Corpuscular Volume 95.3 fL (80-100); Mean Platelet Volume 9.6 fL (7.4-10.4); Monocytes # (auto) 0.41 K/uL (0.11-0.59); Monocytes % (auto) 8.6 %; Neutrophils # (auto) 3.85 K/uL (1.4-6.5); Neutrophils % (auto) 80.6 %; Platelet Count 237 K/uL (130-400); RDW Coefficient of Variation 13.6 % (11.5-14.5); RDW Standard Deviation 47.3 fL (36.4-46.3); Red Blood Count 3.44 M/uL (4.2-5.4); White Blood Count 4.78 K/uL (4.8-10.8)
[2020-11-06 09:22] LABS: Base Excess VBG -2.3 mEq/L; pH VBG 7.35 (7.36-7.41)
[2020-11-06 09:30] LABS: D Dimer 330 ug/L FEU (0-500); INR 1.3 (0.9-1.1); Prothrombin Time 13.3 Seconds (9.0-12.0)
[2020-11-06 09:58] LABS: Alanine Aminotransferase 28 U/L (12-78); Albumin Globulin Ratio 0.9 (0.9-2); Albumin Level 3.3 gm/dl (3.4-5.0); Alkaline Phosphatase 216 U/L (45-117); Aspartate Aminotransferase 48 U/L (15-37); BUN Creatinine Ratio 17.1 (10-20); Bilirubin,Total 0.6 mg/dl (0.2-1); Blood Urea Nitrogen 13 mg/dl (7-18); Calcium 8.1 mg/dl (8.5-10.1); Carbon Dioxide 22 mmol/L (21-32); Chloride 83 mmol/L (98-107); Creatinine Clr Calc Pharmacy 107.1 ml/min; Est GFR (African American) 101.8 ml/min; Est GFR (Non-African American) 87.9 ml/min; Globulin 3.6 gm/dl (2.5-4.0); Glucose 91 mg/dl (70-99); Magnesium 1.4 mg/dl (1.8-2.4); NT Pro B Type Natriuretic Pept 4032 pg/ml (0-900); Potassium 5.4 mmol/L (3.5-5.1); Sodium 115 mmol/L (136-145); Total Protein 6.9 gm/dl (6.4-8.2); Troponin I < 0.015 ng/ml (0-0.045)
[2020-11-06] MEDS ORDERED: CALCIUM GLUCONATE 10% 1,000 MG in SODIUM CHLORIDE 0.9% 50 ML IV STA (10:09)
[2020-11-06] MEDS ORDERED: MAGNESIUM SULFATE / D5W 1 GM/100 ML BAG IV STA (10:10)
[2020-11-06 10:12] LABS: T4 Free Thyroxine 1.16 ng/dl (0.8-1.6)
--- NOTE | 2020-11-06 11:12 | History & Physical Report ---
Date of Service November 06, 2020 Assessment & Plan (1) Acute hyponatremia: Plan: With significant edema, question of malnutrition/"tea and toast" syndrome, possible worsening diastolic heart failure Low-dose IV Lasix, elevate legs as able Check 2D echo Check urine and serum osmolality, sodium Monitor sodium closely Replete and of other electrolytes with magnesium Check LFTs/albumin/prealbumin Add MVI Will ask nephrology to evaluate further recommendations We'll ask nutrition to evaluate nutritional status. (2) Hyperkalemia: Plan: No EKG changes noted Patient received calcium gluconate IV in the emergency room We'll continue to monitor (3) Failure to thrive: Plan: Likely multifactorial, consider malnutrition, edema as documented, hypothyroidism, morbid obesity, and chronic deconditioning We'll treat underlying medical issues as able PT/OT evaluation Agree with patient that she likely will require placement upon discharge (4) Diabetes mellitus with diabetic polyneuropathy: Plan: Check hemoglobin A1c We'll hold metformin for now, start sliding scale insulin Diabetic diet (5) Hypothyroid: Plan: Patient is on 125 mcg of levothyroxine, will continue this Check free T4, total T3 May need increase in medication. Patient may benefit from endocrine consultation, may need to defer until outpatient (6) Hypercholesteremia: Plan: Atorvastatin 40 mg daily (7) Hypertension: Plan: Blood pressure currently stable on current medications, will continue (8) Asthma: Plan: O2 support as ordered. She is on rescue albuterol inhaler (9) Paroxysmal a-fib: Plan: Patient is currently in rate controlled atrial fibrillation on monitor Patient is on metoprolol and amiodarone, will continue these for now Anticoagulated with Eliquis Plan: PT/OT as noted above Will likely need case management to arrange placement on discharge History of Present Illness Chief Complaint: Fall Primary Care Provider: Parveen Fishman MD This is a 60-year-old female with past medical history of type 2 diabetes mellitus with polyneuropathy, morbid obesity, hypothyroidism, sleep apnea that presents today status post fall. Patient is pleasant a good historian. Patient is essentially homebound in her apartment. She was previously in the hospital and [facility]. She feels she did well and was discharged home sometime in June. She had home therapy through the month of July. However, after this the patient was essentially alone without any assistance. She tells me she has friend come over frequently to make her some food and help her with bills but otherwise she has no home nursing or other agency help. She tells me at this point she has been having more difficulty transferring to wheelchair and lately has been strictly chair bound in her living room. She tells me she does get her medications and has only missed very occasional dose. She is on home oxygen at night but lately has not been able to get to the oxygen canister which is in the kitchen. She tells me she has been getting progressively more weak over the past month. She is the point she can no longer move at all and feels stiff. She is noticed increasing edema in her lower extremities, especially her thighs. She attempted to get out of her chair today and slid to the floor. She did not strike her h ead or lose consciousness. She was unable to get up under her own power. At this point, she called 911 and was brought to the emergency room. Per ER physician, EMS found that the house was in a poor state. Patient was sitting her own urine and feces. There is definite concern about the patient returning to this environment. At my evaluation, the patient is awake and alert. She does speak frankly about her situation and understand that she needs help. She is agreeable to assisted living or some other placement on discharge if this can be arranged. Symptomatically, she notes that she has worsening shortness of breath in addition to her weakness. She denies any chest pain or palpitations. She has worsening edema and understands that she is likely malnourished. She is in no acute cardiopulmonary distress. Allergies Allergy/AdvReac Type Severity Reaction Status Date / Time Penicillins Allergy Unknown UNKNOWN Verified 11/06/20 08:56 bacitracin Allergy Unknown Verified 11/06/20 08:56 [From Neosporin ([id number])] neomycin Allergy Unknown Verified 11/06/20 08:56 [From Neosporin ([id number])] polymyxin B Allergy Unknown Verified 11/06/20 08:56 [From Neosporin ([id number])] Home Medications Medication Instructions Recorded Confirmed Type cholecalciferol (vitamin D3) 25 1,000 units PO 1200 12/24/17 11/06/20 History mcg (1,000 unit) capsule cyanocobalamin (vitamin B-12) 1,000 mcg PO 1200 12/24/17 11/06/20 History 1,000 mcg capsule magnesium oxide 400 mg PO TIDM cap 09/28/18 11/06/20 History albuterol sulfate 90 mcg/actuation 2 puffs INHALATION Q4H PRN 09/26/19 11/06/20 History aerosol inhaler atorvastatin 40 mg tablet 40 mg PO QPM #90 tab 10/11/19 11/06/20 Rx acetaminophen 325 mg tablet 650 mg PO Q4H PRN #1 tab 11/12/19 11/06/20 Rx apixaban 5 mg tablet (Eliquis) 5 mg PO BID #180 tab 02/13/20 11/06/20 Rx foam bandage 8" X 7" (Aquacel Foam) #5 ea 03/29/20 Rx blood sugar diagnostic (OneTouch #100 ea 07/16/20 Rx Verio test strips) blood-glucose meter (OneTouch #1 ea 07/16/20 Rx Verio Meter) lancets (OneTouch UltraSoft #200 ea 07/16/20 Rx Lancets) sulfamethoxazole 800 1 tab PO BID #60 tab 08/03/20 11/06/20 Rx mg-trimethoprim 160 mg tablet (Bactrim DS) levothyroxine 125 mcg tablet 125 mcg PO DAILY #30 tab 08/06/20 11/06/20 Rx buspirone 10 mg tablet 10 mg PO BID #60 tab 09/24/20 11/06/20 Rx venlafaxine 150 mg 150 mg PO QAM #30 cap 09/24/20 11/06/20 Rx capsule,extended release 24 hr amiodarone 200 mg tablet 200 mg PO QAM #30 tab 09/25/20 11/06/20 Rx diltiazem HCl 360 mg 360 mg PO DAILY #30 cap 10/17/20 11/06/20 Rx capsule,extended release 24 hr metoprolol succinate 100 mg 100 mg PO BID #60 tab 10/19/20 11/06/20 Rx tablet,extended release 24 hr lorazepam 0.5 mg tablet 0.5 mg PO BID PRN #60 tab 10/26/20 11/06/20 Rx tramadol 50 mg tablet 50 mg PO BID #60 tab 10/26/20 11/06/20 Rx metformin 1,000 mg tablet 1,000 mg PO BIDM 11/06/20 11/06/20 History montelukast 10 mg tablet 10 mg PO HS 11/06/20 11/06/20 History Past Med/Surg History Medical History Acquired claw toe of left foot Acquired hallux valgus of right foot Acquired hammer toe of right foot Acute renal failure "FROM A FALL." RESOLVED Anxiety Arterial hemorrhage PT CANNOT RECALL Asthma RES INH USE DAILY/ NOT WELL CONTROLLED DURING ALLERGY SEASON Cellulitis of third toe, left Depression Diabetes mellitus with diabetic polyneuropathy Diabetic foot infection (08/25/13) BILAT> BOTH RESOLVED History of amputation of left great toe History of cardioversion X2. LAST ONE APPROX 2014 Hypercholesteremia Hypertension Hypothyroidism Morbid obesity Osteoarthritis Osteomyelitis OF A TOE LEFT FOOT Paroxysmal a-fib ON ELIQUIS. S/P FAILED CARDIOVERSIONS X2. PER CARDIO NOT A CANDIDATE FOR ABLATION. RATE HAS BEEN DIFFICULT TO CONTROL AT TIMES, BUT PER MOST RECENT CARDIO NOTE 09/2019, RATE IMPROVED WITH ADDITION OF DILTIAZEM. PT IS ASYMPTOMATIC. Patellar fracture Sleep apnea NO CPAP Surgical History History of amputation of lesser toe of left foot History of amputation of lesser toe of right foot History of colonoscopy History of dilatation and curettage History of esophagogastroduodenoscopy (EGD) History of right knee surgery REPLACEMENT > ON BACTRIM FOR INFECTED HARDWARE. 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: No Beliefs That Will Affect Care: None marital status: Single Current Living Situation: Alone Feels Safe at Home: Yes Assistive Devices: None Review of Systems Constitutional: + weight gain; no fever, no chills, no weakness and no weight loss Eyes: as per Subjective / HPI Respiratory: + dyspnea; no cough, no chest congestion, no dyspnea on exertion, no hemoptysis and no pain on inspiration Cardiovascular: + edema; no chest pain, no orthopnea, no palpitations, no lightheadedness and no syncope Gastrointestinal: no abdominal pain, no nausea, no vomiting, no constipation and no diarrhea/loose stools Genitourinary: no dysuria, no difficulty urinating, no urinary frequency, no urinary hesitancy, no urinary urgency and no flank pain Musculoskeletal: + stiffness and + muscle weakness; no back pain, no neck pain, no joint pain and no myalgia Integumentary: no rash Neurologic: + gait abnormality, + falls, + generalized weakness, + numbness and + paresthesia; no unsteadiness Physical Exam Constitutional: cooperative; no acute distress Eyes: b/l exopthalamos Neck: trachea midline, no thyromegaly Respiratory: normal respiratory effort Auscultation: + diminished lung sounds and + rhonchi; no crackles, no rales and no wheezes Cardiovascular: Rate/Rhythm: regular rate and regular rhythm Heart Sounds: normal S1, normal S2 and + murmur Gastrointestinal (Abdomen): Inspection/Auscultation: abdomen normal to inspection Percussion/Palpation: abdomen soft; abdomen nontender, no guarding, abdomen not rigid and no hepatosplenomegaly Musculoskeletal: Atrophied lower extremities, 3+ pitting edema to upper thighs bilaterally Skin: no rashes, warm and dry Results & Data Results & Data ([facility]) Vital Signs (Past 12 Hours) Vital Signs Temp Pulse Pulse Resp BP Pulse Ox 11/06/20 09:13 61 20 95 11/06/20 07:48 98 11/06/20 07:38 36.5 C 55 L 20 123/87 89 L Laboratory Results Laboratory Results WBC 4.78 K/uL (4.8-10.8) L 11/06/20 09:04 RBC 3.44 M/uL (4.2-5.4) L 11/06/20 09:04 Hgb 11.3 g/dL (12.0-16.0) L 11/06/20 09:04 Hct 32.8 % (37-47) L 11/06/20 09:04 MCV 95.3 fL (80-100) 11/06/20 09:04 MCH 32.8 pg (25-34) 11/06/20 09:04 MCHC 34.5 g/dL (32-36) 11/06/20 09:04 RDW Std Deviation 47.3 fL (36.4-46.3) H 11/06/20 09:04 RDW Coeff of Yazmin 13.6 % (11.5-14.5) 11/06/20 09:04 Plt Count 237 K/uL (130-400) 11/06/20 09:04 MPV 9.6 fL (7.4-10.4) 11/06/20 09:04 Immature Gran % (Auto) 0.2 % 11/06/20 09:04 Neut % (Auto) 80.6 % 11/06/20 09:04 Lymph % (Auto) 9.8 % 11/06/20 09:04 [place] % (Auto) 8.6 % 11/06/20 09:04 Eos % (Auto) 0.6 % 11/06/20 09:04 Baso % (Auto) 0.2 % 11/06/20 09:04 Neut # (Auto) 3.85 K/uL (1.4-6.5) 11/06/20 09:04 Lymph # (Auto) 0.47 K/uL (1.2-3.4) L 11/06/20 09:04 [place] # (Auto) 0.41 K/uL (0.11-0.59) 11/06/20 09:04 Eos # (Auto) 0.03 K/uL (0-0.5) 11/06/20 09:04 Baso # (Auto) 0.01 K/uL (0-0.2) 11/06/20 09:04 Immature Gran # (Auto) 0.01 K/uL (0.00-0.02) 11/06/20 09:04 PT 13.3 Seconds (9.0-12.0) H 11/06/20 09:04 INR 1.3 (0.9-1.1) H 11/06/20 09:04 D-Dimer 330 ug/L FEU (0-500) 11/06/20 09:04 VBG pH 7.35 (7.36-7.41) L 11/06/20 09:04 VBG pCO2 43 mmHg (38-50) 11/06/20 09:04 VBG pO2 44 mmHg 11/06/20 09:04 VBG HCO3 23 mmol/L 11/06/20 09:04 VBG O2 Saturation 75.0 % 11/06/20 09:04 VBG Base Excess -2.3 mEq/L 11/06/20 09:04 Barometric Pressure 734.1 mm/Hg 11/06/20 09:04 Sodium 115 mmol/L (136-145) L* 11/06/20 09:04 Potassium 5.4 mmol/L (3.5-5.1) H 11/06/20 09:04 Chloride 83 mmol/L (98-107) L 11/06/20 09:04 Carbon Dioxide 22 mmol/L (21-32) 11/06/20 09:04 Anion Gap 10.0 (3-11) 11/06/20 09:04 BUN 13 mg/dl (7-18) 11/06/20 09:04 Creatinine 0.75 mg/dl (0.6-1.2) 11/06/20 09:04 Est Cr Clr Drug Dosing 107.1 ml/min 11/06/20 09:04 Est GFR ( Amer) 101.8 ml/min 11/06/20 09:04 Est GFR (Non-Af Amer) 87.9 ml/min 11/06/20 09:04 BUN/Creatinine Ratio 17.1 (10-20) 11/06/20 09:04 Glucose 91 mg/dl (70-99) 11/06/20 09:04 Lactate 1.2 mmol/L (0.4-2.0) 11/06/20 09:04 Calcium 8.1 mg/dl (8.5-10.1) L 11/06/20 09:04 Magnesium 1.4 mg/dl (1.8-2.4) L 11/06/20 09:04 Total Bilirubin 0.6 mg/dl (0.2-1) 11/06/20 09:04 AST 48 U/L (15-37) H 11/06/20 09:04 ALT 28 U/L (12-78) 11/06/20 09:04 Alkaline Phosphatase 216 U/L (45-117) H 11/06/20 09:04 Troponin I < 0.015 ng/ml (0-0.045) 11/06/20 09:04 NT-Pro-B Natriuret Pep 4032 pg/ml (0-900) H 11/06/20 09:04 Total Protein 6.9 gm/dl (6.4-8.2) 11/06/20 09:04 Albumin 3.3 gm/dl (3.4-5.0) L 11/06/20 09:04 Globulin 3.6 gm/dl (2.5-4.0) 11/06/20 09:04 Albumin/Globulin Ratio 0.9 (0.9-2) 11/06/20 09:04 TSH 7.080 uIu/ml (0.300-4.500) H 11/06/20 09:04 Free T4 1.16 ng/dl (0.8-1.6) 11/06/20 09:04 Random Cortisol 38.07 mcg/dl 11/06/20 09:04 COVID-19 Eval Order Covid19 at [facility] 11/06/20 09:17 SARS-CoV-2 (PCR) NEGATIVE (Negative) 11/06/20 09:17 Impressions Chest X-Ray 11/06/20 07:48 XR chest 1V portable CLINICAL HISTORY: weakness COMPARISON STUDY: November 08, 2019 FINDINGS: No pneumothorax. No pleural effusion. Patchy airspace opacities are seen within bilateral lower lungs. Diffuse reticular nodular prominence of pulmonary interstitium is worsened since prior. Cardiomediastinal silhouette is mildly enlarged. Bilateral shelly are prominent. Pulmonary vasculature is indistinct.. Osseous structures: Unremarkable. Vertebral bodies are not well seen. IMPRESSION: 1. Enlarged cardiomediastinal silhouette, possible pulmonary edema. 2. Opacities at bilateral lower lungs might represent atelectasis or consolidation. ACT 112: Negative or not required by law. The above report was generated using voice recognition software. It may contain grammatical, syntax or spelling errors. Electronically signed by: Milly Sanchez DO 11/06/2020 8:35 AM PG Care Time/CCT Total # of Minutes Spent Total Time Spent with Patient: Total time spent is greater than 50% in coordination of care (as documented) at patient's floor/unit and/or counseling patient: Coding Level of Care Code 50859 Initial Inpt Care Lvl 3 Diagnoses Diabetes mellitus with diabetic polyneuropathy E11.42 Hypothyroid E03.9 Hypothyroidism type: acquired Hypercholesteremia E78.00 Hypertension I10 Asthma J45.20 Asthma severity: mild Asthma persistence: intermittent Asthma complication type: unspecified Paroxysmal a-fib I48.0 Acute hyponatremia E87.1 Failure to thrive Hyperkalemia E87.5 (1) Hypothyroid Hypothyroidism type: acquired Qualified Code(s): E03.9 - Hypothyroidism, unspecified (2) Asthma Asthma severity: mild Asthma persistence: intermittent Asthma complication type: unspecified Qualified Code(s): J45.20 - Mild intermittent asthma, uncomplicated
[2020-11-06] MEDS ORDERED: FUROSEMIDE 40 MG/4 ML VIAL IV STA (11:42)
[2020-11-06 13:09] LABS: Appearance Urine Clear (Clear); Bacteria Urine Automated 4+ (Negative); Bilirubin Urine Negative (Negative); Blood Urine Negative (Negative); Color Urine Yellow; Glucose Urine UA Negative (Negative); Ketones Urine Negative (Negative); Leukocyte Esterase Urine Trace (Negative); Nitrite Urine Negative (Negative); Protein Urine Negative (Negative); RBC Urine Automated 0-4 /hpf (0-4); Specific Gravity Urine 1.014 (1.000-1.030); Urobilinogen Urine Negative (Negative); pH Urine 5.5 (4.5-7.5)
[2020-11-06] MEDS ORDERED: LORazepam 0.5 MG TAB PO STA (14:45)
--- NOTE | 2020-11-06 14:57 | Emergency Department Note ---
History of Present Illness General Chief complaint: Weakness Stated complaint: WEAKNESS, Time Seen by Provider: 11/06/20 07:42 History of Present Illness Maximum Pain Intensity: 5 60-year-old female who was transferred to the emergency department via ambulance for evaluation of weakness. EMS was called for a lift assist at the patient's home. When they got to the home, the patient was found on the floor. EMS reports that her living arrangements are far from ideal, with swelling and urination in her recliner. They also report that her home was also unkempt. Upon presentation to the emergency department, the patient complains of weakness for the last few days. The patient did not call her family doctor regarding her symptoms. When asked when the last time was that she followed up with her PCP, the patient reports that she has been having transportation issues. The patient currently denies any chest pain. She reports notable shortness of breath. The patient does have asthma, and usually wears oxygen at nighttime. She ran out of her oxygen. She has known history of atrial fibrillation, and reports that she has been taking her apixaban with up-to-date prescriptions. The patient denies any fever or chills, nausea, vomiting or urinary symptoms. She also denies any abdominal or back pain. Home Medications Medication Instructions Recorded Confirmed Type cholecalciferol (vitamin D3) 25 1,000 units PO 1200 12/24/17 11/06/20 History mcg (1,000 unit) capsule cyanocobalamin (vitamin B-12) 1,000 mcg PO 1200 12/24/17 11/06/20 History 1,000 mcg capsule magnesium oxide 400 mg PO TIDM cap 09/28/18 11/06/20 History albuterol sulfate 90 mcg/actuation 2 puffs INHALATION Q4H PRN 09/26/19 11/06/20 History aerosol inhaler atorvastatin 40 mg tablet 40 mg PO QPM #90 tab 10/11/19 11/06/20 Rx acetaminophen 325 mg tablet 650 mg PO Q4H PRN #1 tab 11/12/19 11/06/20 Rx apixaban 5 mg tablet (Eliquis) 5 mg PO BID #180 tab 02/13/20 11/06/20 Rx foam bandage 8" X 7" (Aquacel Foam) #5 ea 03/29/20 Rx blood sugar diagnostic (OneTouch #100 ea 07/16/20 Rx Verio test strips) blood-glucose meter (OneTouch #1 ea 07/16/20 Rx Verio Meter) lancets (OneTouch UltraSoft #200 ea 07/16/20 Rx Lancets) sulfamethoxazole 800 1 tab PO BID #60 tab 08/03/20 11/06/20 Rx mg-trimethoprim 160 mg tablet (Bactrim DS) levothyroxine 125 mcg tablet 125 mcg PO DAILY #30 tab 08/06/20 11/06/20 Rx buspirone 10 mg tablet 10 mg PO BID #60 tab 09/24/20 11/06/20 Rx venlafaxine 150 mg 150 mg PO QAM #30 cap 09/24/20 11/06/20 Rx capsule,extended release 24 hr amiodarone 200 mg tablet 200 mg PO QAM #30 tab 09/25/20 11/06/20 Rx diltiazem HCl 360 mg 360 mg PO DAILY #30 cap 10/17/20 11/06/20 Rx capsule,extended release 24 hr metoprolol succinate 100 mg 100 mg PO BID #60 tab 10/19/20 11/06/20 Rx tablet,extended release 24 hr lorazepam 0.5 mg tablet 0.5 mg PO BID PRN #60 tab 10/26/20 11/06/20 Rx tramadol 50 mg tablet 50 mg PO BID #60 tab 10/26/20 11/06/20 Rx metformin 1,000 mg tablet 1,000 mg PO BIDM 11/06/20 11/06/20 History montelukast 10 mg tablet 10 mg PO HS 11/06/20 11/06/20 History Allergies Allergy/AdvReac Type Severity Reaction Status Date / Time Penicillins Allergy Unknown UNKNOWN Verified 11/06/20 08:56 bacitracin Allergy Unknown Verified 11/06/20 08:56 [From Neosporin ([id number])] neomycin Allergy Unknown Verified 11/06/20 08:56 [From Neosporin ([id number])] polymyxin B Allergy Unknown Verified 11/06/20 08:56 [From Neosporin ([id number])] Past Med/Surg History Medical History Acquired claw toe of left foot Acquired hallux valgus of right foot Acquired hammer toe of right foot Acute renal failure "FROM A FALL." RESOLVED Anxiety Arterial hemorrhage PT CANNOT RECALL Asthma RES INH USE DAILY/ NOT WELL CONTROLLED DURING ALLERGY SEASON Cellulitis of third toe, left Depression Diabetes mellitus with diabetic polyneuropathy Diabetic foot infection (08/25/13) BILAT> BOTH RESOLVED History of amputation of left great toe History of cardioversion X2. LAST ONE APPROX 2014 Hypercholesteremia Hypertension Hypothyroidism Morbid obesity Osteoarthritis Osteomyelitis OF A TOE LEFT FOOT Paroxysmal a-fib ON ELIQUIS. S/P FAILED CARDIOVERSIONS X2. PER CARDIO NOT A CANDIDATE FOR ABLATION. RATE HAS BEEN DIFFICULT TO CONTROL AT TIMES, BUT PER MOST RECENT CARDIO NOTE 09/2019, RATE IMPROVED WITH ADDITION OF DILTIAZEM. PT IS ASYMPTOMATIC. Patellar fracture Sleep apnea NO CPAP Surgical History History of amputation of lesser toe of left foot History of amputation of lesser toe of right foot History of colonoscopy History of dilatation and curettage History of esophagogastroduodenoscopy (EGD) History of right knee surgery REPLACEMENT > ON BACTRIM FOR INFECTED HARDWARE. SURGERY PENDING APPROX 6 MOS Family History Sister Breast cancer Father Diabetes Hypertension Other Family history non-contributory Heart disease Social History Smoking Status: Former smoker Number of Years Since Quit: 5; Second Hand Exposure: No; Hx Alcohol Use: Yes Alcohol type: hard liquor Hx Substance Use: No Preferred Language: Lao Communication Ability: Effective Surgery Teacher Required: No Beliefs That Will Affect Care: None marital status: Single Current Living Situation: Alone Feels Safe at Home: Yes Assistive Devices: None Review of Systems 10 system review was performed and was negative except for pertinent positives and negatives as indicated in history of present illness Physical Exam Vital Signs Vital Signs - 24 hr 11/06/20 07:38 11/06/20 07:48 11/06/20 09:13 Temperature 36.5 C Temperature Source Oral Pulse Rate 55 L Pulse Rate [Right Finger] 61 Respiratory Rate 20 20 Respiratory Effort / Characteristics Pursed Lip Short of Breath Spontaneous Respiratory Pattern Tachypnea Blood Pressure 123/87 Blood Pressure Mean 99 Pulse Oximetry 89 L 98 95 Oxygen Delivery Method Room Air Nasal Cannula Nasal Cannula Nasal Cannula Oxygen Flow Rate 4 4 4 Sepsis Recent Fever Within 48 Hours No Sepsis New/Unexplained Change in Mental Status No Sepsis Action Taken by Nursing No Action Required Oxygen Flow Rate - Titration 4 Pulse Oximetry Post Tiitration 100 11/06/20 09:22 11/06/20 11:22 Temperature Temperature Source Pulse Rate Pulse Rate [Right Finger] 50 L 47 L Respiratory Rate 20 22 Respiratory Effort / Characteristics Respiratory Pattern Blood Pressure Blood Pressure Mean Pulse Oximetry 92 91 Oxygen Delivery Method Nasal Cannula Nasal Cannula Oxygen Flow Rate 4 4 Sepsis Recent Fever Within 48 Hours Sepsis New/Unexplained Change in Mental Status Sepsis Action Taken by Nursing Oxygen Flow Rate - Titration Pulse Oximetry Post Tiitration CONSTITUTIONAL: Morbidly obese female. Alert and oriented X 3. Patient appears in mild to moderate respiratory distress with audible wheezing. HEENT: Normocephalic, atraumatic. Pupils equal, round and reactive. Ears and nares are clear. No scleral icterus or conjunctival injection/pallor. NECK: Full active range of motion without discomfort. No obvious JVD or carotid bruits, however the patient does have morbid obesity. LYMPHATICS: No cervical chain adenopathy. RESPIRATORY: Patient has coarse breath sounds with obvious wheezing and crackles in all duvall. CARDIOVASCULAR: Regular rate and rhythm with no murmurs, rubs or gallops. GASTROINTESTINAL: Bowel sounds present in all quadrants. Protuberant abdomen but soft and nontender to palpation. MUSCULOSKELETAL: Examination shows peripheral edema. The patient also has a wound over the anterior middle right leg region with mild purulent drainage. No significant surrounding erythema or fluctuance noted. INTEGUMENTARY: No rash or other significant dermatologic conditions noted. HEMATOLOGIC: No ecchymosis or petechiae. PSYCHIATRIC: Positive affect. NEUROLOGIC: No focal neurologic deficits noted. Course Course Patient history and physical exam were performed. Nurses notes were reviewed. Vital signs were reviewed showing an O2 saturation of 98% on 4 L/min oxygen via nasal cannula. The patient was noted to be tachypneic and with moderate respiratory effort. The patient was afebrile and bradycardic with a heart rate of 55. The patient was normotensive. IV access was established, and labs were drawn, including lactate and blood cultures x2. An order was placed for an hour-long DuoNeb treatment. Chest x-ray shows a failure pattern without focal consolidations or pneumothorax. The patient was also administered IV Lasix. ECG was performed showing a atrial fibrillation. Patient was placed on playground monitor while in the emergency department. Review of labs shows a relatively stable CBC. INR is 1.3. Venous blood gas shows a pH of 3.75 with no acute findings. Patient is profoundly hyponatremic at 115. Potassium is 5.4. Magnesium is 1.4. Troponin was normal. BNP was elevated at 4032. TSH is also elevated at 7.08 with normal free T4. Random cortisol was also normal at 38. Urine cath collection with Cordero catheter insertion was not suggestive of UTI. COVID-19 testing was also negative. Findings were discussed with Dr. Toscano, ED attending physician, who recommended administering IV calcium gluconate and magnesium sulfate for repletion. Case was then further [facility]. Please see their dictation for further treatment and final disposition. Administered Medications Discontinued Medications Albuterol (Albut/Ipratrop 3mg/0.5mg Neb 3 Ml Vial) 12 ml INH ONE STA Stop: 11/06/20 08:05 Last Admin: 11/06/20 09:13 Dose: 12 ml Documented by: [id number] Furosemide (Furosemide 40 Mg/4 Ml Vial) 40 mg IV NOW STA Stop: 11/06/20 11:43 Last Admin: 11/06/20 12:54 Dose: 40 mg Documented by: [id number] Calcium Gluconate 1,000 mg/ (Sodium Chloride) 60 mls @ 240 mls/hr IV NOW STA Stop: 11/06/20 10:23 Last Infusion: 11/06/20 12:13 Dose: 0 mls/hr Documented by: [id number] Admin: 11/06/20 11:06 Dose: 240 mls/hr Documented by: [id number] Magnesium Sulfate/Dextrose (Magnesium Sulfate / D5w) 1 gm in 100 mls @ 100 mls/hr IV NOW STA Stop: 11/06/20 11:09 Last Infusion: 11/06/20 12:13 Dose: 0 mls/hr Documented by: [id number] Admin: 11/06/20 11:06 Dose: 100 mls/hr Documented by: [id number] Medical Decision Making Medical Records Attestation: I reviewed the patient's medical records. Home Medications Current Medication List: was personally reviewed by me Laboratory Data Attestation: I reviewed the patient's lab results. Result diagrams: 11/06/20 09:04 11/06/20 09:04 Lab Results 11/06/20 11/06/20 11/06/20 Range/Units 09:04 09:04 09:04 WBC 4.78 L (4.8-10.8) K/uL RBC 3.44 L (4.2-5.4) M/uL Hgb 11.3 L (12.0-16.0) g/dL Hct 32.8 L (37-47) % MCV 95.3 (80-100) fL MCH 32.8 (25-34) pg MCHC 34.5 (32-36) g/dL RDW Std Deviation 47.3 H (36.4-46.3) fL RDW Coeff of Yazmin 13.6 (11.5-14.5) % Plt Count 237 (130-400) K/uL MPV 9.6 (7.4-10.4) fL Immature Gran % (Auto) 0.2 % Neut % (Auto) 80.6 % Lymph % (Auto) 9.8 % Franklin % (Auto) 8.6 % Eos % (Auto) 0.6 % Baso % (Auto) 0.2 % Neut # (Auto) 3.85 (1.4-6.5) K/uL Lymph # (Auto) 0.47 L (1.2-3.4) K/uL Franklin # (Auto) 0.41 (0.11-0.59) K/uL Eos # (Auto) 0.03 (0-0.5) K/uL Baso # (Auto) 0.01 (0-0.2) K/uL Immature Gran # (Auto) 0.01 (0.00-0.02) K/uL PT 13.3 H (9.0-12.0) Seconds INR 1.3 H (0.9-1.1) D-Dimer 330 (0-500) ug/L FEU VBG pH (7.36-7.41) VBG pCO2 (38-50) mmHg VBG pO2 mmHg VBG HCO3 mmol/L VBG O2 Saturation % VBG Base Excess mEq/L Barometric Pressure mm/Hg Sodium 115 L* (136-145) mmol/L Potassium 5.4 H (3.5-5.1) mmol/L Chloride 83 L (98-107) mmol/L Carbon Dioxide 22 (21-32) mmol/L Anion Gap 10.0 (3-11) BUN 13 (7-18) mg/dl Creatinine 0.75 (0.6-1.2) mg/dl Est Cr Clr Drug Dosing 107.1 ml/min Est GFR ( Amer) 101.8 ml/min Est GFR (Non-Af Amer) 87.9 ml/min BUN/Creatinine Ratio 17.1 (10-20) Glucose 91 (70-99) mg/dl Lactate (0.4-2.0) mmol/L Calcium 8.1 L (8.5-10.1) mg/dl Magnesium 1.4 L (1.8-2.4) mg/dl Total Bilirubin 0.6 (0.2-1) mg/dl AST 48 H (15-37) U/L ALT 28 (12-78) U/L Alkaline Phosphatase 216 H (45-117) U/L Troponin I < 0.015 (0-0.045) ng/ml NT-Pro-B Natriuret Pep 4032 H (0-900) pg/ml Total Protein 6.9 (6.4-8.2) gm/dl Albumin 3.3 L (3.4-5.0) gm/dl Globulin 3.6 (2.5-4.0) gm/dl Albumin/Globulin Ratio 0.9 (0.9-2) TSH 7.080 H (0.300-4.500) uIu/ml Free T4 1.16 (0.8-1.6) ng/dl Random Cortisol mcg/dl COVID-19 Eval Order SARS-CoV-2 (PCR) (Negative) 11/06/20 11/06/20 11/06/20 Range/Units 09:04 09:04 09:04 WBC (4.8-10.8) K/uL RBC (4.2-5.4) M/uL Hgb (12.0-16.0) g/dL Hct (37-47) % MCV (80-100) fL MCH (25-34) pg MCHC (32-36) g/dL RDW Std Deviation (36.4-46.3) fL RDW Coeff of Yazmin (11.5-14.5) % Plt Count (130-400) K/uL MPV (7.4-10.4) fL Immature Gran % (Auto) % Neut % (Auto) % Lymph % (Auto) % Franklin % (Auto) % Eos % (Auto) % Baso % (Auto) % Neut # (Auto) (1.4-6.5) K/uL Lymph # (Auto) (1.2-3.4) K/uL Franklin # (Auto) (0.11-0.59) K/uL Eos # (Auto) (0-0.5) K/uL Baso # (Auto) (0-0.2) K/uL Immature Gran # (Auto) (0.00-0.02) K/uL PT (9.0-12.0) Seconds INR (0.9-1.1) D-Dimer (0-500) ug/L FEU VBG pH 7.35 L (7.36-7.41) VBG pCO2 43 (38-50) mmHg VBG pO2 44 mmHg VBG HCO3 23 mmol/L VBG O2 Saturation 75.0 % VBG Base Excess -2.3 mEq/L Barometric Pressure 734.1 mm/Hg Sodium (136-145) mmol/L Potassium (3.5-5.1) mmol/L Chloride (98-107) mmol/L Carbon Dioxide (21-32) mmol/L Anion Gap (3-11) BUN (7-18) mg/dl Creatinine (0.6-1.2) mg/dl Est Cr Clr Drug Dosing ml/min Est GFR ( Amer) ml/min Est GFR (Non-Af Amer) ml/min BUN/Creatinine Ratio (10-20) Glucose (70-99) mg/dl Lactate 1.2 (0.4-2.0) mmol/L Calcium (8.5-10.1) mg/dl Magnesium (1.8-2.4) mg/dl Total Bilirubin (0.2-1) mg/dl AST (15-37) U/L ALT (12-78) U/L Alkaline Phosphatase (45-117) U/L Troponin I (0-0.045) ng/ml NT-Pro-B Natriuret Pep (0-900) pg/ml Total Protein (6.4-8.2) gm/dl Albumin (3.4-5.0) gm/dl Globulin (2.5-4.0) gm/dl Albumin/Globulin Ratio (0.9-2) TSH (0.300-4.500) uIu/ml Free T4 (0.8-1.6) ng/dl Random Cortisol 38.07 mcg/dl COVID-19 Eval Order SARS-CoV-2 (PCR) (Negative) 11/06/20 11/06/20 Range/Units 09:17 09:17 WBC (4.8-10.8) K/uL RBC (4.2-5.4) M/uL Hgb (12.0-16.0) g/dL Hct (37-47) % MCV (80-100) fL MCH (25-34) pg MCHC (32-36) g/dL RDW Std Deviation (36.4-46.3) fL RDW Coeff of Yazmin (11.5-14.5) % Plt Count (130-400) K/uL MPV (7.4-10.4) fL Immature Gran % (Auto) % Neut % (Auto) % Lymph % (Auto) % Franklin % (Auto) % Eos % (Auto) % Baso % (Auto) % Neut # (Auto) (1.4-6.5) K/uL Lymph # (Auto) (1.2-3.4) K/uL Franklin # (Auto) (0.11-0.59) K/uL Eos # (Auto) (0-0.5) K/uL Baso # (Auto) (0-0.2) K/uL Immature Gran # (Auto) (0.00-0.02) K/uL PT (9.0-12.0) Seconds INR (0.9-1.1) D-Dimer (0-500) ug/L FEU VBG pH (7.36-7.41) VBG pCO2 (38-50) mmHg VBG pO2 mmHg VBG HCO3 mmol/L VBG O2 Saturation % VBG Base Excess mEq/L Barometric Pressure mm/Hg Sodium (136-145) mmol/L Potassium (3.5-5.1) mmol/L Chloride (98-107) mmol/L Carbon Dioxide (21-32) mmol/L Anion Gap (3-11) BUN (7-18) mg/dl Creatinine (0.6-1.2) mg/dl Est Cr Clr Drug Dosing ml/min Est GFR ( Amer) ml/min Est GFR (Non-Af Amer) ml/min BUN/Creatinine Ratio (10-20) Glucose (70-99) mg/dl Lactate (0.4-2.0) mmol/L Calcium (8.5-10.1) mg/dl Magnesium (1.8-2.4) mg/dl Total Bilirubin (0.2-1) mg/dl AST (15-37) U/L ALT (12-78) U/L Alkaline Phosphatase (45-117) U/L Troponin I (0-0.045) ng/ml NT-Pro-B Natriuret Pep (0-900) pg/ml Total Protein (6.4-8.2) gm/dl Albumin (3.4-5.0) gm/dl Globulin (2.5-4.0) gm/dl Albumin/Globulin Ratio (0.9-2) TSH (0.300-4.500) uIu/ml Free T4 (0.8-1.6) ng/dl Random Cortisol mcg/dl COVID-19 Eval Order Covid19 at [facility] SARS-CoV-2 (PCR) NEGATIVE (Negative) Imaging Data Attestation: I personally reviewed and interpreted this imaging study as follows: My Impression: My interpretation of reportable chest x-ray shows evidence for heart failure without any focal consolidations or pneumothorax. Radiologist report was reviewed. Radiologist's Impression: Chest X-Ray 11/06/20 07:48 XR chest 1V portable CLINICAL HISTORY: weakness COMPARISON STUDY: November 08, 2019 FINDINGS: No pneumothorax. No pleural effusion. Patchy airspace opacities are seen within bilateral lower lungs. Diffuse reticular nodular prominence of pulmonary interstitium is worsened since prior. Cardiomediastinal silhouette is mildly enlarged. Bilateral shelly are prominent. Pulmonary vasculature is indistinct.. Osseous structures: Unremarkable. Vertebral bodies are not well seen. IMPRESSION: 1. Enlarged cardiomediastinal silhouette, possible pulmonary edema. 2. Opacities at bilateral lower lungs might represent atelectasis or consolidation. ACT 112: Negative or not required by law. The above report was generated using voice recognition software. It may contain grammatical, syntax or spelling errors. Electronically signed by: Milly Sanchez DO 11/06/2020 8:35 AM ECG Data Attestation: I personally reviewed and interpreted this ECG as follows: Indication: + SOB/dyspnea Rate (beats per minute): 58 Rhythm: + junctional ECG Intervals/blocks: + Prolonged QT ECG Alvin: + Normal ECG ST segments: + Normal ST segments Comparison ECG Date: from (11/08/2019) Change: the following changes noted (As described above with prolonged QT, low voltage QRS) Blood Pressure Blood Pressure Findings: Normal blood pressure MDM Narrative Cardiac monitoring: An order was placed for continuous cardiac monitoring. The monitor shows a rate of 58 bpm with atrial fibrillation. potline monitor history was reviewed throughout the evaluation, and no dysrhythmias were noted. Patient presents to the emergency department with complaint of weakness and shortness of breath. The patient was found on her floor at home. The patient presented to the emergency department in respiratory distress. The patient underwent an hour-long DuoNeb treatment with relief of symptoms. Additional work-up shows a chest x-ray concerning for failure pattern secondary to heart failure. Her BNP was also elevated. The patient was administered IV Lasix. Further work-up today is not suggestive of major cardiac event. The patient does have a history of atrial fibrillation, with the patient reporting that she has continued with her Eliquis medications. Patient does not have any concerning laboratory findings consistent with sepsis at this time, however blood cultures were ordered. Patient has a notable hyponatremia, per kalemia and hypomagnesemia. Patient was administered calcium gluconate and magnesium sulfate. I do feel the patient warrants hospital admission with nephrology consultation, and repletion of her electrolytes. Impression & Plan Acute hyponatremia, Paroxysmal atrial fibrillation, Congestive heart failure, Acute hyperkalemia, Acute respiratory distress Discharge Plan Visit Data Chief Complaint: Weakness Stated Complaint: WEAKNESS, ED Provider: Sam Toscano ED Midlevel Provider: Bandar Sanchez Discharge Problem: Acute hyponatremia, Paroxysmal atrial fibrillation, Congestive heart failure, Acute hyperkalemia, Acute respiratory distress Discharge Problem: Congestive heart failure Qualifiers: Heart failure type: diastolic Heart failure chronicity: acute Qualified Code(s): I50.31 - Acute diastolic (congestive) heart failure
[2020-11-06] MEDS ORDERED: DEXTROSE 50% 50 ML SYRINGE IV PRN (16:19)
[2020-11-06] MEDS ORDERED: GLUCAGON FOR INJ 1 MG VIAL SQ PRN (16:19)
[2020-11-06] MEDS ORDERED: GLUCOSE 40% GEL 15 GM TUBE PO PRN (16:19)
[2020-11-06] MEDS ORDERED: ALBUTEROL HFA 8 GM INHALER INH PRN (16:19)
[2020-11-06] MEDS ORDERED: CARBOHYDRATES FOR HYPOGLYCEMIA PO PRN (16:19)
[2020-11-06] MEDS ORDERED: GLUCOSE 10 TABS/TUBE PO PRN (16:19)
[2020-11-06] MEDS ORDERED: NYSTATIN POWDER 15GM BTL EXT PRN (17:29)
[2020-11-06] MEDS: CHOLECALCIFEROL 1,000 UNITS 25 MCG TAB PO SCH (17:32)
[2020-11-06] MEDS: INSULIN ASPART 100 UNITS/ML 3 ML PEN SC SCH ×2 (17:33→20:39)
[2020-11-06] MEDS: ACETAMINOPHEN 325 MG TAB PO PRN (18:21)
[2020-11-06 18:47] LABS: Creatinine Clr Calc Pharmacy 105.7 ml/min; Est GFR (Non-African American) 92.3 ml/min; Potassium 5.2 mmol/L (3.5-5.1); Prealbumin 11.2 mg/dl (20-40); T4 Free Thyroxine 1.04 ng/dl (0.8-1.6)
[2020-11-06] MEDS: traMADol HCL 50 MG TABLET PO SCH (20:37)
[2020-11-06] MEDS: ATORVASTATIN 40 MG TAB PO SCH (20:38)
[2020-11-06] MEDS: MONTELUKAST SODIUM 10 MG TABLET PO SCH (20:38)
[2020-11-06] MEDS: METOPROLOL SUCC 50MG EXT REL TAB PO SCH (20:38)
[2020-11-06] MEDS: MAGNESIUM OXIDE 400 MG TAB PO SCH (20:38)
[2020-11-06] MEDS: APIXABAN 5 MG TABLET PO SCH (20:39)
[2020-11-06] MEDS: busPIRone 5 MG TAB PO SCH (20:39)
[2020-11-06 23:01] LABS: BUN Creatinine Ratio 14.3 (10-20); Creatinine Clr Calc Pharmacy 88.5 ml/min; Est GFR (African American) 86.3 ml/min; Est GFR (Non-African American) 74.5 ml/min; Potassium 4.9 mmol/L (3.5-5.1)
[2020-11-07] MEDS: ACETAMINOPHEN 325 MG TAB PO PRN ×2 (04:37→13:43)
[2020-11-07 04:40] LABS: Eosinophils # (auto) 0.04 K/uL (0-0.5); Eosinophils % (auto) 1.2 %; Lymphocytes # (auto) 0.42 K/uL (1.2-3.4); Lymphocytes % (auto) 12.3 %; Mean Corpuscular Hemoglobin 32.7 pg (25-34); Mean Corpuscular Hgb Conc 34.6 g/dL (32-36); Mean Corpuscular Volume 94.5 fL (80-100); Mean Platelet Volume 9.4 fL (7.4-10.4); Monocytes # (auto) 0.47 K/uL (0.11-0.59); Monocytes % (auto) 13.8 %; Neutrophils # (auto) 2.48 K/uL (1.4-6.5); Neutrophils % (auto) 72.7 %; Platelet Count 163 K/uL (130-400); RDW Standard Deviation 48.2 fL (36.4-46.3); Red Blood Count 2.75 M/uL (4.2-5.4); White Blood Count 3.41 K/uL (4.8-10.8)
[2020-11-07 04:57] LABS: Albumin Level 2.6 gm/dl (3.4-5.0); BUN Creatinine Ratio 15.5 (10-20); Calcium 7.6 mg/dl (8.5-10.1); Creatinine Clr Calc Pharmacy 120.8 ml/min; Est GFR (African American) 114.6 ml/min; Est GFR (Non-African American) 98.9 ml/min; Magnesium 1.4 mg/dl (1.8-2.4); Potassium 4.8 mmol/L (3.5-5.1)
[2020-11-07 05:05] LABS: Bilirubin,Total 0.7 mg/dl (0.2-1); Globulin 2.6 gm/dl (2.5-4.0); Total Protein 5.2 gm/dl (6.4-8.2)
[2020-11-07] MEDS: LEVOTHYROXINE SODIUM 125 MCG TABLET PO SCH (06:12)
[2020-11-07 07:19] LABS: BUN Creatinine Ratio 15.4 (10-20); Calcium 7.7 mg/dl (8.5-10.1); Creatinine Clr Calc Pharmacy 127.6 ml/min; Est GFR (African American) 117.8 ml/min; Est GFR (Non-African American) 101.6 ml/min; Potassium 4.8 mmol/L (3.5-5.1)
[2020-11-07 07:25] LABS: Estimated Average Glucose 97 mg/dl
[2020-11-07] MEDS ORDERED: FUROSEMIDE 40 MG in SYRINGE 0 ML IV ONE (08:00)
[2020-11-07] MEDS: METOPROLOL SUCC 50MG EXT REL TAB PO SCH ×2 (08:56→22:06)
[2020-11-07] MEDS: dilTIAZem HCL 180 MG CAPCR PO SCH (08:56)
[2020-11-07] MEDS: AMIODARONE 200 MG TAB PO SCH (08:56)
[2020-11-07] MEDS: APIXABAN 5 MG TABLET PO SCH ×2 (08:57→22:14)
[2020-11-07] MEDS: VENLAFAXINE HCL XR 150 MG CAPXR PO SCH (08:57)
[2020-11-07] MEDS: busPIRone 5 MG TAB PO SCH ×2 (08:57→22:09)
[2020-11-07] MEDS: MAGNESIUM OXIDE 400 MG TAB PO SCH ×2 (08:57→22:07)
[2020-11-07] MEDS: MULTIVITAMIN CHEWABLE TAB PO SCH (08:57)
[2020-11-07] MEDS: INSULIN ASPART 100 UNITS/ML 3 ML PEN SC SCH ×4 (09:01→22:21)
[2020-11-07] MEDS: traMADol HCL 50 MG TABLET PO SCH ×2 (09:03→22:05)
[2020-11-07] MEDS: cefTRIAXone SODIUM 2,000 MG in DEXTROSE 5% 50 ML IV SCH (09:31)
--- NOTE | 2020-11-07 09:52 | Nephrology Consultation ---
Date of Consultation November 07, 2020 Assessment & Plan (1) Hyponatremia: Chronic. Hypervolemic. Potential symptoms include weakness and fatigue. Hypothyroidism contributory. Poor solute intake complicating. Volume status improving. Close observation of serum sodium will be provided to avoid rapid correction. Encourage solute intake and avoid fluid restriction at this time. (2) Hypothyroid: Levothyroxine 125 daily restarted. Monitor closely. (3) Hyperkalemia: Improved with loop diuretics. Bactrim contributory. Kidney function preserved. Low potassium diet. History of Present Illness Reason for Consultation: Hyponatremia Requesting Physician: Scooter Pinto DO Attending Physician: Scooter Pinto DO History of Present Illness Chely Agrawal is a 60-year-old female with atrial fibrillation, hypothyroidism, obesity, hypertension, type 2 diabetes mellitus, hyperlipidemia, depression, asthma, osteomyelitis involving multiple toes on left foot post amputation, chronic right knee prosthesis infection on suppressive antibiotics. She was hospitalized at [facility] in November 2019 with a left femur fracture requiring ORIF. Chely was treated for hyponatremia during the hospitalization with tolvaptan. She had prolonged recovery following this hospitalization. Chely was in a SNF for several months as well as [facility]. She returned home in June and [facility] ended in July. Her functional status has unfortunately declined significantly since she returned home. She is sedentary and struggling to keep up with general ADLs, including preparing meals ind ependently. She is wheelchair bound due to leg pain and weakness. She has home O2 but has not been using it regularly. She states that she has been taking her medications regularly with occasional missed doses. She does not eat regular meals. She denies NSAID use. She denies significant alcohol use. Chely has experienced progressive fluid retention in her abdomen, legs and predominately right arm over several weeks. She has been progressively weak over the past month. She is increasingly sedentary. Yesterday, she attempted to get out of her chair and slid to the floor. EMS were called to her home and Chely was brought to the ER for evaluation. She was sitting her own urine and feces when EMS arrived. Laboratory studies on admission were notable for a serum sodium of 115 mmol/L. Potassium of 5.4 mmol/L. TSH of 7+. Creatinine less than 1 mg/dL. Chely was found to be volume overloaded and IV furosemide provided. UOP overnight >5 L. Serum sodium 125 mmol/L this AM. An additional dose of furosemide was provided this AM. Uosm yesterday was 150. Allergies Allergy/AdvReac Type Severity Reaction Status Date / Time Penicillins Allergy Unknown UNKNOWN Verified 11/06/20 08:56 bacitracin Allergy Unknown Verified 11/06/20 08:56 [From Neosporin ([id number])] neomycin Allergy Unknown Verified 11/06/20 08:56 [From Neosporin ([id number])] polymyxin B Allergy Unknown Verified 11/06/20 08:56 [From Neosporin ([id number])] Home Medications Medication Instructions Recorded Confirmed Type cholecalciferol (vitamin D3) 25 1,000 units PO 1200 12/24/17 11/06/20 History mcg (1,000 unit) capsule cyanocobalamin (vitamin B-12) 1,000 mcg PO 1200 12/24/17 11/06/20 History 1,000 mcg capsule magnesium oxide 400 mg PO TIDM cap 09/28/18 11/06/20 History albuterol sulfate 90 mcg/actuation 2 puffs INHALATION Q4H PRN 09/26/19 11/06/20 History aerosol inhaler atorvastatin 40 mg tablet 40 mg PO QPM #90 tab 10/11/19 11/06/20 Rx acetaminophen 325 mg tablet 650 mg PO Q4H PRN #1 tab 11/12/19 11/06/20 Rx apixaban 5 mg tablet (Eliquis) 5 mg PO BID #180 tab 02/13/20 11/06/20 Rx foam bandage 8" X 7" (Aquacel Foam) #5 ea 03/29/20 Rx blood sugar diagnostic (OneTouch #100 ea 07/16/20 Rx Verio test strips) blood-glucose meter (OneTouch #1 ea 07/16/20 Rx Verio Meter) lancets (OneTouch UltraSoft #200 ea 07/16/20 Rx Lancets) sulfamethoxazole 800 1 tab PO BID #60 tab 08/03/20 11/06/20 Rx mg-trimethoprim 160 mg tablet (Bactrim DS) levothyroxine 125 mcg tablet 125 mcg PO DAILY #30 tab 08/06/20 11/06/20 Rx buspirone 10 mg tablet 10 mg PO BID #60 tab 09/24/20 11/06/20 Rx venlafaxine 150 mg 150 mg PO QAM #30 cap 09/24/20 11/06/20 Rx capsule,extended release 24 hr amiodarone 200 mg tablet 200 mg PO QAM #30 tab 09/25/20 11/06/20 Rx diltiazem HCl 360 mg 360 mg PO DAILY #30 cap 10/17/20 11/06/20 Rx capsule,extended release 24 hr metoprolol succinate 100 mg 100 mg PO BID #60 tab 10/19/20 11/06/20 Rx tablet,extended release 24 hr lorazepam 0.5 mg tablet 0.5 mg PO BID PRN #60 tab 10/26/20 11/06/20 Rx tramadol 50 mg tablet 50 mg PO BID #60 tab 10/26/20 11/06/20 Rx metformin 1,000 mg tablet 1,000 mg PO BIDM 11/06/20 11/06/20 History montelukast 10 mg tablet 10 mg PO HS 11/06/20 11/06/20 History Patient History Medical History Acquired claw toe of left foot Acquired hallux valgus of right foot Acquired hammer toe of right foot Acute renal failure "FROM A FALL." RESOLVED Anxiety Arterial hemorrhage PT CANNOT RECALL Asthma RES INH USE DAILY/ NOT WELL CONTROLLED DURING ALLERGY SEASON Cellulitis of third toe, left Depression Diabetes mellitus with diabetic polyneuropathy Diabetic foot infection (08/25/13) BILAT> BOTH RESOLVED History of amputation of left great toe History of cardioversion X2. LAST ONE APPROX 2014 Hypercholesteremia Hypertension Hypothyroidism Morbid obesity Osteoarthritis Osteomyelitis OF A TOE LEFT FOOT Paroxysmal a-fib ON ELIQUIS. S/P FAILED CARDIOVERSIONS X2. PER CARDIO NOT A CANDIDATE FOR ABLATION. RATE HAS BEEN DIFFICULT TO CONTROL AT TIMES, BUT PER MOST RECENT CARDIO NOTE 09/2019, RATE IMPROVED WITH ADDITION OF DILTIAZEM. PT IS ASYMPTOMATIC. Patellar fracture Sleep apnea NO CPAP Surgical History History of amputation of lesser toe of left foot History of amputation of lesser toe of right foot History of colonoscopy History of dilatation and curettage History of esophagogastroduodenoscopy (EGD) History of right knee surgery REPLACEMENT > ON BACTRIM FOR INFECTED HARDWARE. SURGERY PENDING APPROX 6 MOS Family History Sister Breast cancer Father Diabetes Hypertension Other Family history non-contributory Heart disease Social History Smoking Status: Former smoker Number of Years Since Quit: 5; Second Hand Exposure: No; Hx Alcohol Use: Yes Alcohol type: wine and hard liquor Hx Substance Use: No Preferred Language: Armenian Communication Ability: Effective Music Adapter Required: No Beliefs That Will Affect Care: None marital status: Single Current Living Situation: Alone Other Information That Helps Us Care for You: No Feels Safe at Home: No Is there a partner from a previous relationship who is making you feel unsafe now?: No Any Concerns about Your Family Situation: No Would You Like to Speak to Someone About Your Situation: Yes (afraid of falling, unable to care for self) Assistive Devices: Glasses, Oxygen - Continuous, Walker and Wheelchair Review of Systems Review of Systems: All systems reviewed & are unremarkable except as noted in HPI & below Constitutional: + weakness and + weight gain Cardiovascular: + edema Physical Exam Constitutional: well developed and + morbidly obese; no acute distress Eyes: no scleral abnormality and no corneal abnormality ENMT: Mouth: no oral mucosal abnormality and oral mucous membranes not dry Neck: normal visual inspection and trachea midline Respiratory: normal respiratory effort Auscultation: lungs clear to auscultation bilaterally Cardiovascular: Rate/Rhythm: regular rate Heart Sounds: normal S1 and normal S2 Extremities: + edema Musculoskeletal: Extremities: no cyanosis and no clubbing Skin: normal turgor; no lesions Neurologic: Motor/Sensory: no tremor and no asterixis Psychiatric: Orientation: alert and oriented x 3 Results & Data ([facility]) Vital Signs (Past 12 Hours) Vital Signs Temp Pulse Pulse Pulse Resp BP Pulse Ox 11/07/20 08:00 37.0 C 68 22 108/56 L 96 11/07/20 04:28 37.0 C 63 19 127/70 97 11/07/20 03:56 58 L 11/06/20 23:59 36.8 C 59 L 18 137/73 95 Laboratory Results Laboratory Results - last 24 hr 11/06/20 11/06/20 11/06/20 09:04 09:04 09:17 WBC RBC Hgb Hct MCV MCH MCHC RDW Std Deviation RDW Coeff of Yazmin Plt Count MPV Immature Gran % (Auto) Neut % (Auto) Lymph % (Auto) Moore % (Auto) Eos % (Auto) Baso % (Auto) Neut # (Auto) Lymph # (Auto) Moore # (Auto) Eos # (Auto) Baso # (Auto) Immature Gran # (Auto) Sodium 115 L* Potassium 5.4 H Chloride 83 L Carbon Dioxide 22 Anion Gap 10.0 BUN 13 Creatinine 0.75 Est Cr Clr Drug Dosing 107.1 Est GFR ( Amer) 101.8 Est GFR (Non-Af Amer) 87.9 BUN/Creatinine Ratio 17.1 Glucose 91 POC Glucose Estimat Average Glucose Hemoglobin A1c Osmolality Calcium 8.1 L Magnesium 1.4 L Total Bilirubin 0.6 AST 48 H ALT 28 Alkaline Phosphatase 216 H Troponin I < 0.015 NT-Pro-B Natriuret Pep 4032 H Total Protein 6.9 Albumin 3.3 L Globulin 3.6 Albumin/Globulin Ratio 0.9 Prealbumin Triglycerides Cholesterol LDL Cholesterol, Calc VLDL Cholesterol, Calc HDL Cholesterol Cholesterol/HDL Ratio TSH 7.080 H Free T4 1.16 Total T3 Random Cortisol 38.07 Urine Color Urine Appearance Urine pH Ur Specific Burg[place] Urine Protein Urine Glucose (UA) Urine Ketones Urine Blood Urine Nitrite Urine Bilirubin Urine Urobilinogen Ur Leukocyte Esterase Urine WBC (Auto) Urine RBC (Auto) U Hyaline Cast (Auto) U Epithel Cells (Auto) Urine Bacteria (Auto) Urine Osmolality Ur Random Sodium SARS-CoV-2 (PCR) NEGATIVE 11/06/20 11/06/20 11/06/20 12:45 16:16 17:31 WBC RBC Hgb Hct MCV MCH MCHC RDW Std Deviation RDW Coeff of Yazmin Plt Count MPV Immature Gran % (Auto) Neut % (Auto) Lymph % (Auto) Moore % (Auto) Eos % (Auto) Baso % (Auto) Neut # (Auto) Lymph # (Auto) Moore # (Auto) Eos # (Auto) Baso # (Auto) Immature Gran # (Auto) Sodium Potassium Chloride Carbon Dioxide Anion Gap BUN Creatinine Est Cr Clr Drug Dosing Est GFR ( Amer) Est GFR (Non-Af Amer) BUN/Creatinine Ratio Glucose POC Glucose 104 H Estimat Average Glucose Hemoglobin A1c Osmolality 248 L Calcium Magnesium Total Bilirubin AST ALT Alkaline Phosphatase Troponin I NT-Pro-B Natriuret Pep Total Protein Albumin Globulin Albumin/Globulin Ratio Prealbumin Triglycerides Cholesterol LDL Cholesterol, Calc VLDL Cholesterol, Calc HDL Cholesterol Cholesterol/HDL Ratio TSH Free T4 Total T3 Random Cortisol Urine Color Yellow Urine Appearance Clear Urine pH 5.5 Ur Specific [place] 1.014 Urine Protein Negative Urine Glucose (UA) Negative Urine Ketones Negative Urine Blood Negative Urine Nitrite Negative Urine Bilirubin Negative Urine Urobilinogen Negative Ur Leukocyte Esterase Trace H Urine WBC (Auto) 5-10 H Urine RBC (Auto) 0-4 U Hyaline Cast (Auto) 1-5 U Epithel Cells (Auto) 5-10 H Urine Bacteria (Auto) 4+ H Urine Osmolality Ur Random Sodium SARS-CoV-2 (PCR) 11/06/20 11/06/20 11/06/20 17:31 17:31 17:39 WBC RBC Hgb Hct MCV MCH MCHC RDW Std Deviation RDW Coeff of Yazmin Plt Count MPV Immature Gran % (Auto) Neut % (Auto) Lymph % (Auto) Moore % (Auto) Eos % (Auto) Baso % (Auto) Neut # (Auto) Lymph # (Auto) Moore # (Auto) Eos # (Auto) Baso # (Auto) Immature Gran # (Auto) Sodium 117 L* Potassium 5.2 H Chloride 86 L Carbon Dioxide 24 Anion Gap 8.0 BUN 12 Creatinine 0.72 Est Cr Clr Drug Dosing 105.7 Est GFR ( Amer) 107.0 Est GFR (Non-Af Amer) 92.3 BUN/Creatinine Ratio 17.0 Glucose 82 POC Glucose Estimat Average Glucose Hemoglobin A1c Osmolality Calcium 8.0 L Magnesium Total Bilirubin AST ALT Alkaline Phosphatase Troponin I NT-Pro-B Natriuret Pep Total Protein Albumin Globulin Albumin/Globulin Ratio Prealbumin 11.2 L Triglycerides Cholesterol LDL Cholesterol, Calc VLDL Cholesterol, Calc HDL Cholesterol Cholesterol/HDL Ratio TSH Free T4 1.04 Total T3 Pending Random Cortisol Urine Color Urine Appearance Urine pH Ur Specific [place] Urine Protein Urine Glucose (UA) Urine Ketones Urine Blood Urine Nitrite Urine Bilirubin Urine Urobilinogen Ur Leukocyte Esterase Urine WBC (Auto) Urine RBC (Auto) U Hyaline Cast (Auto) U Epithel Cells (Auto) Urine Bacteria (Auto) Urine Osmolality 149 L Ur Random Sodium SARS-CoV-2 (PCR) 11/06/20 11/06/20 11/06/20 17:39 20:25 22:20 WBC RBC Hgb Hct MCV MCH MCHC RDW Std Deviation RDW Coeff of Yazmin Plt Count MPV Immature Gran % (Auto) Neut % (Auto) Lymph % (Auto) Moore % (Auto) Eos % (Auto) Baso % (Auto) Neut # (Auto) Lymph # (Auto) Moore # (Auto) Eos # (Auto) Baso # (Auto) Immature Gran # (Auto) Sodium 120 L Potassium 4.9 Chloride 88 L Carbon Dioxide 25 Anion Gap 8.0 BUN 12 Creatinine 0.86 Est Cr Clr Drug Dosing 88.5 Est GFR ( Amer) 86.3 Est GFR (Non-Af Amer) 74.5 BUN/Creatinine Ratio 14.3 Glucose 96 POC Glucose 96 Estimat Average Glucose Hemoglobin A1c Osmolality Calcium 8.0 L Magnesium Total Bilirubin AST ALT Alkaline Phosphatase Troponin I NT-Pro-B Natriuret Pep Total Protein Albumin Globulin Albumin/Globulin Ratio Prealbumin Triglycerides Cholesterol LDL Cholesterol, Calc VLDL Cholesterol, Calc HDL Cholesterol Cholesterol/HDL Ratio TSH Free T4 Total T3 Random Cortisol Urine Color Urine Appearance Urine pH Ur Specific [place] Urine Protein Urine Glucose (UA) Urine Ketones Urine Blood Urine Nitrite Urine Bilirubin Urine Urobilinogen Ur Leukocyte Esterase Urine WBC (Auto) Urine RBC (Auto) U Hyaline Cast (Auto) U Epithel Cells (Auto) Urine Bacteria (Auto) Urine Osmolality Ur Random Sodium 52 SARS-CoV-2 (PCR) 11/07/20 11/07/20 11/07/20 04:22 04:22 04:22 WBC 3.41 L RBC 2.75 L Hgb 9.0 L Hct 26.0 L MCV 94.5 MCH 32.7 MCHC 34.6 RDW Std Deviation 48.2 H RDW Coeff of Yazmin 14.0 Plt Count 163 MPV 9.4 Immature Gran % (Auto) 0.0 Neut % (Auto) 72.7 Lymph % (Auto) 12.3 Moore % (Auto) 13.8 Eos % (Auto) 1.2 Baso % (Auto) 0.0 Neut # (Auto) 2.48 Lymph # (Auto) 0.42 L Moore # (Auto) 0.47 Eos # (Auto) 0.04 Baso # (Auto) 0.00 Immature Gran # (Auto) 0.00 Sodium 124 L Potassium 4.8 Chloride 92 L Carbon Dioxide 27 Anion Gap 5.0 BUN 10 Creatinine 0.63 Est Cr Clr Drug Dosing 120.8 Est GFR ( Amer) 114.6 Est GFR (Non-Af Amer) 98.9 BUN/Creatinine Ratio 15.5 Glucose 75 POC Glucose Estimat Average Glucose 97 Hemoglobin A1c 5.0 Osmolality Calcium 7.6 L Magnesium 1.4 L Total Bilirubin 0.7 AST 34 ALT 20 Alkaline Phosphatase 161 H Troponin I NT-Pro-B Natriuret Pep Total Protein 5.2 L D Albumin 2.6 L Globulin 2.6 Albumin/Globulin Ratio 1.0 Prealbumin Triglycerides 67 Cholesterol 114 LDL Cholesterol, Calc 26 VLDL Cholesterol, Calc 13 HDL Cholesterol 75 Cholesterol/HDL Ratio 2 TSH Free T4 Total T3 Random Cortisol Urine Color Urine Appearance Urine pH Ur Specific [place] Urine Protein Urine Glucose (UA) Urine Ketones Urine Blood Urine Nitrite Urine Bilirubin Urine Urobilinogen Ur Leukocyte Esterase Urine WBC (Auto) Urine RBC (Auto) U Hyaline Cast (Auto) U Epithel Cells (Auto) Urine Bacteria (Auto) Urine Osmolality Ur Random Sodium SARS-CoV-2 (PCR) 11/07/20 11/07/20 06:27 07:40 WBC RBC Hgb Hct MCV MCH MCHC RDW Std Deviation RDW Coeff of Yazmin Plt Count MPV Immature Gran % (Auto) Neut % (Auto) Lymph % (Auto) Moore % (Auto) Eos % (Auto) Baso % (Auto) Neut # (Auto) Lymph # (Auto) Moore # (Auto) Eos # (Auto) Baso # (Auto) Immature Gran # (Auto) Sodium 125 L Potassium 4.8 Chloride 92 L Carbon Dioxide 27 Anion Gap 6.0 BUN 9 Creatinine 0.58 L Est Cr Clr Drug Dosing 127.6 Est GFR ( Amer) 117.8 Est GFR (Non-Af Amer) 101.6 BUN/Creatinine Ratio 15.4 Glucose 78 POC Glucose 88 Estimat Average Glucose Hemoglobin A1c Osmolality Calcium 7.7 L Magnesium Total Bilirubin AST ALT Alkaline Phosphatase Troponin I NT-Pro-B Natriuret Pep Total Protein Albumin Globulin Albumin/Globulin Ratio Prealbumin Triglycerides Cholesterol LDL Cholesterol, Calc VLDL Cholesterol, Calc HDL Cholesterol Cholesterol/HDL Ratio TSH Free T4 Total T3 Random Cortisol Urine Color Urine Appearance Urine pH Ur Specific [place] Urine Protein Urine Glucose (UA) Urine Ketones Urine Blood Urine Nitrite Urine Bilirubin Urine Urobilinogen Ur Leukocyte Esterase Urine WBC (Auto) Urine RBC (Auto) U Hyaline Cast (Auto) U Epithel Cells (Auto) Urine Bacteria (Auto) Urine Osmolality Ur Random Sodium SARS-CoV-2 (PCR) PG Care Time/CCT Total # of Minutes Spent Total Time Spent with Patient: Total time spent is greater than 50% in coordination of care (as documented) at patient's floor/unit and/or counseling patient: Coding Level of Care Code 73264 Inpt Consult Level 4 Diagnoses Hyponatremia E87.1 Hypothyroid E03.9 Hypothyroidism type: acquired Hyperkalemia E87.5 (1) Hypothyroid Hypothyroidism type: acquired Qualified Code(s): E03.9 - Hypothyroidism, unspecified
--- NOTE | 2020-11-07 10:00 | Hospitalist Progress Note ---
Date of Service November 07, 2020 Assessment & Plan (1) Acute hyponatremia: Plan: With significant edema, question of malnutrition/"tea and toast" syndrome, possible worsening diastolic heart failure great response to Lasix, negative 5 liters Na up to 125 this morning, 128 this afternoon hold on further Lasix, don't want to raise Na too much further for now low serum osm with lower urine osm suggesting excessive free water, volume overload appreciate recommendations from Dr Jaramillo (2) Acute on chronic diastolic (congestive) heart failure: Plan: preserved EF with grade III diastolic dysfunction, biatrial dilation, elevated pulm pressures responded well to Lasix, hold further doses while watching Na (3) Hyperkalemia: Plan: No EKG changes noted K came down with Lasix in the ED and again today (4) Failure to thrive: Plan: Likely multifactorial, consider malnutrition, edema as documented, hypothyroidism, morbid obesity, and chronic deconditioning We'll treat underlying medical issues as able PT/OT evaluation Agree with patient that she likely will require placement upon discharge, she would like to go to rehab (5) Diabetes mellitus with diabetic polyneuropathy: Plan: We'll hold metformin for now, start sliding scale insulin Diabetic diet, monitor for hypoglycemia (6) Hypothyroid: Plan: Patient is on 125 mcg of levothyroxine, will continue this Check free T4, total T3 May need increase in medication. Patient may benefit from endocrine consultation, may need to defer until outpatient (7) Hypercholesteremia: Plan: Atorvastatin 40 mg daily (8) Hypertension: Plan: Blood pressure currently stable on current medications, will continue (9) Asthma: Plan: O2 support as ordered. She is on rescue albuterol inhaler (10) Paroxysmal a-fib: Plan: Patient is currently in rate controlled atrial fibrillation on monitor Patient is on metoprolol and amiodarone, will continue these for now Anticoagulated with Eliquis Plan: PT/OT as noted above Will likely need case management to arrange placement on discharge Admission and Anticipated Discharge Date Admission Date: November 06, 2020 Subjective patient is feeling a lot better today sodium coming up, 125 this morning making a lot of urine with Lasix, repeat Na 128 this afternoon discussed with Dr. Jaramillo, Na high enough, don't want to raise too quickly, will hold Lasix tomorrow, check BMP patient admits to weight gain with fluid, ongoing for a few weeks getting more and more difficult to walk, move about her apartment she is interested in rehab, went before eating well, no chest pain, no fever, + dyspnea on exertion Review of Systems Review of Systems: All systems reviewed & are unremarkable except as noted in Subjective Constitutional: + fatigue, + weakness and + weight gain (edema); no fever, no chills and no sweats Respiratory: + dyspnea on exertion; no cough and no dyspnea Cardiovascular: + edema; no chest pain, no palpitations and no syncope Gastrointestinal: no abdominal pain, no nausea, no vomiting, no constipation and no diarrhea/loose stools Physical Exam Constitutional: well developed, + obese, + disheveled and comfortable; no acute distress ENMT: Mouth: + poor dentition Neck: trachea midline, no thyromegaly Respiratory: normal respiratory effort, lungs clear to auscultation Cardiovascular: Rate/Rhythm: regular rate and regular rhythm Heart Sounds: normal S1 and normal S2; no murmur Extremities: normal capillary refill and + edema Gastrointestinal (Abdomen): normal bowel sounds, soft, nontender, no hepatosplenomegaly Musculoskeletal: Head/Neck/Chest: normocephalic, head atraumatic and neck supple Extremities: + abnormal strength; no cyanosis, no clubbing and no petechiae Skin: + crusts, + dry skin and + erythema Neurologic: CN's II-XI intact bilaterally, moves all extremities and awake; no focal motor deficits Psychiatric: A+Ox3, euthymic affect Results & Data Results & Data ([facility]) Vital Signs (Past 12 Hours) Vital Signs Temp Pulse Pulse Pulse Resp BP Pulse Ox 11/07/20 08:00 37.0 C 68 22 108/56 L 96 11/07/20 04:28 37.0 C 63 19 127/70 97 11/07/20 03:56 58 L 11/06/20 23:59 36.8 C 59 L 18 137/73 95 Laboratory Results Laboratory Results - last 24 hr 11/06/20 11/06/20 11/06/20 09:04 09:04 09:17 WBC RBC Hgb Hct MCV MCH MCHC RDW Std Deviation RDW Coeff of Yazmin Plt Count MPV Immature Gran % (Auto) Neut % (Auto) Lymph % (Auto) Cotton % (Auto) Eos % (Auto) Baso % (Auto) Neut # (Auto) Lymph # (Auto) Cotton # (Auto) Eos # (Auto) Baso # (Auto) Immature Gran # (Auto) Sodium Potassium Chloride Carbon Dioxide Anion Gap BUN Creatinine Est Cr Clr Drug Dosing Est GFR ( Amer) Est GFR (Non-Af Amer) BUN/Creatinine Ratio Glucose POC Glucose Estimat Average Glucose Hemoglobin A1c Osmolality Calcium Magnesium Total Bilirubin AST ALT Alkaline Phosphatase Total Protein Albumin Globulin Albumin/Globulin Ratio Prealbumin Triglycerides Cholesterol LDL Cholesterol, Calc VLDL Cholesterol, Calc HDL Cholesterol Cholesterol/HDL Ratio Free T4 1.16 Total T3 Random Cortisol 38.07 Urine Color Urine Appearance Urine pH Ur Specific [place] Urine Protein Urine Glucose (UA) Urine Ketones Urine Blood Urine Nitrite Urine Bilirubin Urine Urobilinogen Ur Leukocyte Esterase Urine WBC (Auto) Urine RBC (Auto) U Hyaline Cast (Auto) U Epithel Cells (Auto) Urine Bacteria (Auto) Urine Osmolality Ur Random Sodium SARS-CoV-2 (PCR) NEGATIVE 11/06/20 11/06/20 11/06/20 12:45 16:16 17:31 WBC RBC Hgb Hct MCV MCH MCHC RDW Std Deviation RDW Coeff of Yazmin Plt Count MPV Immature Gran % (Auto) Neut % (Auto) Lymph % (Auto) Cotton % (Auto) Eos % (Auto) Baso % (Auto) Neut # (Auto) Lymph # (Auto) Cotton # (Auto) Eos # (Auto) Baso # (Auto) Immature Gran # (Auto) Sodium Potassium Chloride Carbon Dioxide Anion Gap BUN Creatinine Est Cr Clr Drug Dosing Est GFR ( Amer) Est GFR (Non-Af Amer) BUN/Creatinine Ratio Glucose POC Glucose 104 H Estimat Average Glucose Hemoglobin A1c Osmolality 248 L Calcium Magnesium Total Bilirubin AST ALT Alkaline Phosphatase Total Protein Albumin Globulin Albumin/Globulin Ratio Prealbumin Triglycerides Cholesterol LDL Cholesterol, Calc VLDL Cholesterol, Calc HDL Cholesterol Cholesterol/HDL Ratio Free T4 Total T3 Random Cortisol Urine Color Yellow Urine Appearance Clear Urine pH 5.5 Ur Specific [place] 1.014 Urine Protein Negative Urine Glucose (UA) Negative Urine Ketones Negative Urine Blood Negative Urine Nitrite Negative Urine Bilirubin Negative Urine Urobilinogen Negative Ur Leukocyte Esterase Trace H Urine WBC (Auto) 5-10 H Urine RBC (Auto) 0-4 U Hyaline Cast (Auto) 1-5 U Epithel Cells (Auto) 5-10 H Urine Bacteria (Auto) 4+ H Urine Osmolality Ur Random Sodium SARS-CoV-2 (PCR) 11/06/20 11/06/20 11/06/20 17:31 17:31 17:39 WBC RBC Hgb Hct MCV MCH MCHC RDW Std Deviation RDW Coeff of Yazmin Plt Count MPV Immature Gran % (Auto) Neut % (Auto) Lymph % (Auto) Cotton % (Auto) Eos % (Auto) Baso % (Auto) Neut # (Auto) Lymph # (Auto) Cotton # (Auto) Eos # (Auto) Baso # (Auto) Immature Gran # (Auto) Sodium 117 L* Potassium 5.2 H Chloride 86 L Carbon Dioxide 24 Anion Gap 8.0 BUN 12 Creatinine 0.72 Est Cr Clr Drug Dosing 105.7 Est GFR ( Amer) 107.0 Est GFR (Non-Af Amer) 92.3 BUN/Creatinine Ratio 17.0 Glucose 82 POC Glucose Estimat Average Glucose Hemoglobin A1c Osmolality Calcium 8.0 L Magnesium Total Bilirubin AST ALT Alkaline Phosphatase Total Protein Albumin Globulin Albumin/Globulin Ratio Prealbumin 11.2 L Triglycerides Cholesterol LDL Cholesterol, Calc VLDL Cholesterol, Calc HDL Cholesterol Cholesterol/HDL Ratio Free T4 1.04 Total T3 Pending Random Cortisol Urine Color Urine Appearance Urine pH Ur Specific [place] Urine Protein Urine Glucose (UA) Urine Ketones Urine Blood Urine Nitrite Urine Bilirubin Urine Urobilinogen Ur Leukocyte Esterase Urine WBC (Auto) Urine RBC (Auto) U Hyaline Cast (Auto) U Epithel Cells (Auto) Urine Bacteria (Auto) Urine Osmolality 149 L Ur Random Sodium SARS-CoV-2 (PCR) 11/06/20 11/06/20 11/06/20 17:39 20:25 22:20 WBC RBC Hgb Hct MCV MCH MCHC RDW Std Deviation RDW Coeff of Yazmin Plt Count MPV Immature Gran % (Auto) Neut % (Auto) Lymph % (Auto) Cotton % (Auto) Eos % (Auto) Baso % (Auto) Neut # (Auto) Lymph # (Auto) Cotton # (Auto) Eos # (Auto) Baso # (Auto) Immature Gran # (Auto) Sodium 120 L Potassium 4.9 Chloride 88 L Carbon Dioxide 25 Anion Gap 8.0 BUN 12 Creatinine 0.86 Est Cr Clr Drug Dosing 88.5 Est GFR ( Amer) 86.3 Est GFR (Non-Af Amer) 74.5 BUN/Creatinine Ratio 14.3 Glucose 96 POC Glucose 96 Estimat Average Glucose Hemoglobin A1c Osmolality Calcium 8.0 L Magnesium Total Bilirubin AST ALT Alkaline Phosphatase Total Protein Albumin Globulin Albumin/Globulin Ratio Prealbumin Triglycerides Cholesterol LDL Cholesterol, Calc VLDL Cholesterol, Calc HDL Cholesterol Cholesterol/HDL Ratio Free T4 Total T3 Random Cortisol Urine Color Urine Appearance Urine pH Ur Specific [place] Urine Protein Urine Glucose (UA) Urine Ketones Urine Blood Urine Nitrite Urine Bilirubin Urine Urobilinogen Ur Leukocyte Esterase Urine WBC (Auto) Urine RBC (Auto) U Hyaline Cast (Auto) U Epithel Cells (Auto) Urine Bacteria (Auto) Urine Osmolality Ur Random Sodium 52 SARS-CoV-2 (PCR) 11/07/20 11/07/20 11/07/20 04:22 04:22 04:22 WBC 3.41 L RBC 2.75 L Hgb 9.0 L Hct 26.0 L MCV 94.5 MCH 32.7 MCHC 34.6 RDW Std Deviation 48.2 H RDW Coeff of Yazmin 14.0 Plt Count 163 MPV 9.4 Immature Gran % (Auto) 0.0 Neut % (Auto) 72.7 Lymph % (Auto) 12.3 Cotton % (Auto) 13.8 Eos % (Auto) 1.2 Baso % (Auto) 0.0 Neut # (Auto) 2.48 Lymph # (Auto) 0.42 L Cotton # (Auto) 0.47 Eos # (Auto) 0.04 Baso # (Auto) 0.00 Immature Gran # (Auto) 0.00 Sodium 124 L Potassium 4.8 Chloride 92 L Carbon Dioxide 27 Anion Gap 5.0 BUN 10 Creatinine 0.63 Est Cr Clr Drug Dosing 120.8 Est GFR ( Amer) 114.6 Est GFR (Non-Af Amer) 98.9 BUN/Creatinine Ratio 15.5 Glucose 75 POC Glucose Estimat Average Glucose 97 Hemoglobin A1c 5.0 Osmolality Calcium 7.6 L Magnesium 1.4 L Total Bilirubin 0.7 AST 34 ALT 20 Alkaline Phosphatase 161 H Total Protein 5.2 L D Albumin 2.6 L Globulin 2.6 Albumin/Globulin Ratio 1.0 Prealbumin Triglycerides 67 Cholesterol 114 LDL Cholesterol, Calc 26 VLDL Cholesterol, Calc 13 HDL Cholesterol 75 Cholesterol/HDL Ratio 2 Free T4 Total T3 Random Cortisol Urine Color Urine Appearance Urine pH Ur Specific [place] Urine Protein Urine Glucose (UA) Urine Ketones Urine Blood Urine Nitrite Urine Bilirubin Urine Urobilinogen Ur Leukocyte Esterase Urine WBC (Auto) Urine RBC (Auto) U Hyaline Cast (Auto) U Epithel Cells (Auto) Urine Bacteria (Auto) Urine Osmolality Ur Random Sodium SARS-CoV-2 (PCR) 11/07/20 11/07/20 06:27 07:40 WBC RBC Hgb Hct MCV MCH MCHC RDW Std Deviation RDW Coeff of Yazmin Plt Count MPV Immature Gran % (Auto) Neut % (Auto) Lymph % (Auto) Cotton % (Auto) Eos % (Auto) Baso % (Auto) Neut # (Auto) Lymph # (Auto) Cotton # (Auto) Eos # (Auto) Baso # (Auto) Immature Gran # (Auto) Sodium 125 L Potassium 4.8 Chloride 92 L Carbon Dioxide 27 Anion Gap 6.0 BUN 9 Creatinine 0.58 L Est Cr Clr Drug Dosing 127.6 Est GFR ( Amer) 117.8 Est GFR (Non-Af Amer) 101.6 BUN/Creatinine Ratio 15.4 Glucose 78 POC Glucose 88 Estimat Average Glucose Hemoglobin A1c Osmolality Calcium 7.7 L Magnesium Total Bilirubin AST ALT Alkaline Phosphatase Total Protein Albumin Globulin Albumin/Globulin Ratio Prealbumin Triglycerides Cholesterol LDL Cholesterol, Calc VLDL Cholesterol, Calc HDL Cholesterol Cholesterol/HDL Ratio Free T4 Total T3 Random Cortisol Urine Color Urine Appearance Urine pH Ur Specific [place] Urine Protein Urine Glucose (UA) Urine Ketones Urine Blood Urine Nitrite Urine Bilirubin Urine Urobilinogen Ur Leukocyte Esterase Urine WBC (Auto) Urine RBC (Auto) U Hyaline Cast (Auto) U Epithel Cells (Auto) Urine Bacteria (Auto) Urine Osmolality Ur Random Sodium SARS-CoV-2 (PCR) Medications Administered Current Inpatient Medications Acetaminophen (Acetaminophen 325 Mg Tab) 650 mg PO Q4H PRN PRN Reason: pain Stop: 12/06/20 16:18 Last Admin: 11/07/20 04:37 Dose: 650 mg Documented by: Albuterol (Albuterol Hfa 8 Gm Inhaler) 2 puffs INH Q4H PRN PRN Reason: Shortness Of Breath Or Wheezing Stop: 12/06/20 16:18 Amiodarone HCl (Amiodarone 200 Mg Tab) 200 mg PO QAM BRIANDA Stop: 12/07/20 08:59 Last Admin: 11/07/20 08:56 Dose: 200 mg Documented by: Apixaban (Apixaban 5 Mg Tablet) 5 mg PO BID BRIANDA Stop: 12/06/20 20:59 Last Admin: 11/07/20 08:57 Dose: 5 mg Documented by: Atorvastatin Calcium (Atorvastatin 40 Mg Tab) 40 mg PO QPM BRIANDA Stop: 12/06/20 20:59 Last Admin: 11/06/20 20:38 Dose: 40 mg Documented by: Buspirone HCl (Buspirone 5 Mg Tab) 10 mg PO BID BRIANDA Stop: 12/06/20 20:59 Last Admin: 11/07/20 08:57 Dose: 10 mg Documented by: Cyanocobalamin (Cyanocobalamin 500 Mcg Tablet (Vitamin B-12)) 1,000 mcg PO 1200 BRIANDA Stop: 12/07/20 11:59 Dextrose (Dextrose 50% 50 Ml Syringe) 25 - 50 ml IV UD PRN; Protocol PRN Reason: Hypoglycemia Protocol Stop: 12/06/20 16:18 Diltiazem HCl (Diltiazem Hcl 180 Mg Capcr) 360 mg PO DAILY BRIANDA Stop: 12/07/20 08:59 Last Admin: 11/07/20 08:56 Dose: 360 mg Documented by: Glucagon (Glucagon For Inj 1 Mg Vial) 1 mg SQ UD PRN; Protocol PRN Reason: Hypoglycemia Protocol Stop: 12/06/20 16:18 Glucose (Glucose 10 Tabs/Tube) 4 - 8 tabs PO UD PRN; Protocol PRN Reason: Hypoglycemia Protocol Stop: 12/06/20 16:18 Glucose (Glucose 40% Gel 15 Gm Tube) 15 - 30 gm PO UD PRN; Protocol PRN Reason: Hypoglycemia Protocol Stop: 12/06/20 16:18 Magnesium Sulfate/Dextrose (Magnesium Sulfate / D5w) 1 gm in 100 mls @ 50 mls/hr IV Q2H BRIANDA Stop: 11/07/20 13:29 Ceftriaxone Sodium 2,000 mg/ (Dextrose) 70 mls @ 100 mls/hr IV DAILY BRIANDA; Protocol Stop: 11/12/20 08:59 Last Admin: 11/07/20 09:31 Dose: 100 mls/hr Documented by: Insulin Aspart (Insulin Aspart 100 Units/Ml 3 Ml Pen) 0 units SC ACHS [facility] Stop: 12/06/20 16:29 Last Admin: 11/07/20 09:01 Dose: Not Given Documented by: Levothyroxine Sodium (Levothyroxine Sodium 125 Mcg Tablet) 125 mcg PO DAILYBB BRIANDA Stop: 12/07/20 06:29 Last Admin: 11/07/20 06:12 Dose: 125 mcg Documented by: Lorazepam (Lorazepam 0.5 Mg Tab) 0.5 mg PO BID PRN PRN Reason: anxiety Stop: 12/06/20 16:18 Magnesium Oxide (Magnesium Oxide 400 Mg Tab) 400 mg PO BID [facility] Stop: 12/06/20 20:59 Last Admin: 11/07/20 08:57 Dose: 400 mg Documented by: Metoprolol Succinate (Metoprolol Succ 50mg Ext Rel Tab) 100 mg PO BID BRIANDA Stop: 12/06/20 20:59 Last Admin: 11/07/20 08:56 Dose: 100 mg Documented by: Miscellaneous (Carbohydrates For Hypoglycemia ) 15 - 30 gm PO UD PRN PRN Reason: Hypoglycemia Protocol Stop: 12/06/20 16:18 Montelukast Sodium (Montelukast Sodium 10 Mg Tablet) 10 mg PO HS [facility] Stop: 12/06/20 20:59 Last Admin: 11/06/20 20:38 Dose: 10 mg Documented by: Multivitamins/Folic Acid/Vitamin C (Multivitamin Chewable Tab) 1 tab PO QAM BRIANDA Stop: 12/07/20 08:59 Last Admin: 11/07/20 08:57 Dose: 1 tab Documented by: Nystatin (Nystatin Powder 15gm Btl) 1 appln EXT BID PRN PRN Reason: Affected Skin Folds Stop: 12/06/20 17:28 Last Admin: 11/07/20 06:14 Dose: 1 appln Documented by: Tramadol HCl (Tramadol Hcl 50 Mg Tablet) 50 mg PO BID [facility] Stop: 12/06/20 20:59 Last Admin: 11/07/20 09:03 Dose: 50 mg Documented by: Venlafaxine HCl (Venlafaxine Hcl Xr 150 Mg Capxr) 150 mg PO QAM [facility] Stop: 12/07/20 08:59 Last Admin: 11/07/20 08:57 Dose: 150 mg Documented by: Vitamin D (Cholecalciferol 1,000 Units 25 Mcg Tab) 1,000 units PO 1200 [facility] Stop: 12/06/20 16:18 Last Admin: 11/06/20 17:32 Dose: 1,000 units Documented by: PG Care Time/CCT Total # of Minutes Spent Total Time Spent with Patient: Total time spent is greater than 50% in coordination of care (as documented) at patient's floor/unit and/or counseling patient: Coding Level of Care Code 55715 Subseq Hosp Care Lvl 3 Diagnoses Acute hyponatremia E87.1 Hyperkalemia E87.5 Failure to thrive Diabetes mellitus with diabetic polyneuropathy E11.42 Hypothyroid E03.9 Hypothyroidism type: acquired Hypercholesteremia E78.00 Hypertension I10 Asthma J45.20 Asthma complication type: unspecified Asthma persistence: intermittent Asthma severity: mild Paroxysmal a-fib I48.0 Acute on chronic diastolic (congestive) heart failure I50.33 (1) Hypothyroid Hypothyroidism type: acquired Qualified Code(s): E03.9 - Hypothyroidism, unspecified (2) Asthma Asthma complication type: unspecified Asthma persistence: intermittent Asthma severity: mild Qualified Code(s): J45.20 - Mild intermittent asthma, uncomplicated
[2020-11-07] MEDS: MAGNESIUM SULFATE / D5W 1 GM/100 ML BAG IV SCH ×2 (10:34→12:23)
[2020-11-07] MEDS: CHOLECALCIFEROL 1,000 UNITS 25 MCG TAB PO SCH (12:20)
[2020-11-07] MEDS: CYANOCOBALAMIN 500 MCG TABLET (VITAMIN B-12) PO SCH (12:20)
[2020-11-07 17:09] LABS: Albumin Level 2.7 gm/dl (3.4-5.0); BUN Creatinine Ratio 13.8 (10-20); Calcium 7.8 mg/dl (8.5-10.1); Creatinine Clr Calc Pharmacy 123.3 ml/min; Est GFR (African American) 116.4 ml/min; Est GFR (Non-African American) 100.5 ml/min; Potassium 4.4 mmol/L (3.5-5.1)
[2020-11-07 17:10] LABS: Phosphorus 2.4 mg/dl (2.5-4.9)
[2020-11-07] MEDS: LORazepam 0.5 MG TAB PO PRN (17:23)
--- NOTE | 2020-11-07 18:14 | XCELERA ---
[id number]
[2020-11-07] MEDS: MONTELUKAST SODIUM 10 MG TABLET PO SCH (22:06)
[2020-11-07] MEDS: ATORVASTATIN 40 MG TAB PO SCH (22:14)
[2020-11-08] MEDS: ACETAMINOPHEN 325 MG TAB PO PRN ×3 (02:25→17:09)
[2020-11-08] MEDS: LEVOTHYROXINE SODIUM 125 MCG TABLET PO SCH (06:28)
[2020-11-08 07:45] LABS: BUN Creatinine Ratio 15.2 (10-20); Calcium 7.7 mg/dl (8.5-10.1); Est GFR (African American) 127.1 ml/min; Est GFR (Non-African American) 109.7 ml/min; Magnesium 1.7 mg/dl (1.8-2.4); Phosphorus 2.6 mg/dl (2.5-4.9); Potassium 4.1 mmol/L (3.5-5.1)
[2020-11-08] MEDS: busPIRone 5 MG TAB PO SCH ×2 (08:37→21:46)
[2020-11-08] MEDS: VENLAFAXINE HCL XR 150 MG CAPXR PO SCH (08:38)
[2020-11-08] MEDS: MAGNESIUM OXIDE 400 MG TAB PO SCH ×2 (08:39→21:47)
[2020-11-08] MEDS: MULTIVITAMIN CHEWABLE TAB PO SCH (08:40)
[2020-11-08] MEDS: METOPROLOL SUCC 50MG EXT REL TAB PO SCH ×2 (08:40→21:44)
[2020-11-08] MEDS: dilTIAZem HCL 180 MG CAPCR PO SCH (08:41)
[2020-11-08] MEDS: AMIODARONE 200 MG TAB PO SCH (08:41)
[2020-11-08] MEDS: APIXABAN 5 MG TABLET PO SCH ×2 (08:42→21:46)
[2020-11-08] MEDS: cefTRIAXone SODIUM 2,000 MG in DEXTROSE 5% 50 ML IV SCH (09:01)
[2020-11-08] MEDS: traMADol HCL 50 MG TABLET PO SCH ×2 (09:01→21:51)
[2020-11-08] MEDS: LORazepam 0.5 MG TAB PO PRN ×2 (09:01→19:12)
--- NOTE | 2020-11-08 09:02 | Nephrology Progress Note ---
Date of Service November 08, 2020 Assessment & Plan (1) Hyponatremia: Plan: Chronic. Hypervolemic. Complicated by poor solute intake and hypothyroidism. Improving with diuresis and increased solute intake. Volume status improving, however Chely remains notably edematous. Additional 40 mg IV furosemide provided today. Close observation of serum sodium will be provided to avoid rapid correction. Encourage solute intake and avoid fluid restriction at this time. We discussed the risks associated with alcohol use and photomania in detail this AM. Thiamine and folic acid ordered given reported history of alcohol use. Cordero may be discontinued per nursing discretion. (2) Hypothyroid: Plan: Levothyroxine 125 daily. I discussed the plan of care with Dr. Pinto this AM. Admission and Anticipated Discharge Date Admission Date: November 06, 2020 Subjective No acute events overnight. Chely feels well this AM. Appetite is good. She remains very weak but feels this is quickly improving. Chely is reticent to remove the Cordero catheter due to difficulty getting out of bed and large urine output. She told me this morning that she spent at least a week sitting in a chair in her home and only making short trips to the kitchen which was all the effort she could tolerate. She is feeling very deconditioned. She was eating very little. She was drinking seltzer mixed with vodka x ~3 glasses a day up until the time of admission. This helped curb her hunger. She states that she was taking her thyroid medication but only 100 mcg tablets until fairly recently and she would miss the medication every few days. Review of Systems Review of Systems: All systems reviewed & are unremarkable except as noted in HPI & below Physical Exam Constitutional: well developed and + morbidly obese; no acute distress Eyes: no scleral abnormality and no corneal abnormality ENMT: Mouth: no oral mucosal abnormality and oral mucous membranes not dry Neck: normal visual inspection and trachea midline Respiratory: normal respiratory effort Auscultation: lungs clear to auscultation bilaterally Cardiovascular: Rate/Rhythm: regular rate Heart Sounds: normal S1 and normal S2 Extremities: + edema Musculoskeletal: Extremities: no cyanosis and no clubbing Skin: normal turgor; no lesions Neurologic: Motor/Sensory: no tremor and no asterixis Psychiatric: Orientation: alert and oriented x 3 Results & Data ([facility]) Vital Signs (Past 12 Hours) Vital Signs Temp Pulse Pulse Resp BP Pulse Ox 11/08/20 07:14 36.6 C 67 17 114/73 95 11/08/20 03:50 36.5 C 60 16 135/68 98 11/08/20 00:08 37.2 C 69 20 127/64 96 Laboratory Results Laboratory Results - last 24 hr 11/06/20 11/07/20 11/07/20 17:31 11:38 16:23 Sodium Potassium Chloride Carbon Dioxide Anion Gap BUN Creatinine Est Cr Clr Drug Dosing Est GFR ( Amer) Est GFR (Non-Af Amer) BUN/Creatinine Ratio Glucose POC Glucose 100 H 108 H Calcium Phosphorus Magnesium Albumin Total T3 <25 L 11/07/20 11/07/20 11/08/20 16:42 20:47 06:57 Sodium 128 L 130 L Potassium 4.4 4.1 Chloride 94 L 97 L Carbon Dioxide 27 29 Anion Gap 7.0 4.0 BUN 8 7 Creatinine 0.60 0.46 L Est Cr Clr Drug Dosing 123.3 158.0 Est GFR ( Amer) 116.4 127.1 Est GFR (Non-Af Amer) 100.5 109.7 BUN/Creatinine Ratio 13.8 15.2 Glucose 96 89 POC Glucose 109 H Calcium 7.8 L 7.7 L Phosphorus 2.4 L 2.6 Magnesium 1.7 L Albumin 2.7 L Total T3 11/08/20 07:13 Sodium Potassium Chloride Carbon Dioxide Anion Gap BUN Creatinine Est Cr Clr Drug Dosing Est GFR ( Amer) Est GFR (Non-Af Amer) BUN/Creatinine Ratio Glucose POC Glucose 94 Calcium Phosphorus Magnesium Albumin Total T3 PG Care Time/CCT Total # of Minutes Spent Total Time Spent with Patient: Total time spent is greater than 50% in coordina tion of care (as documented) at patient's floor/unit and/or counseling patient: Coding Level of Care Code 93595 Subseq Hosp Care Lvl 3 Diagnoses Hyponatremia E87.1 Hypothyroid E03.9 Hypothyroidism type: acquired (1) Hypothyroid Hypothyroidism type: acquired Qualified Code(s): E03.9 - Hypothyroidism, unspecified
[2020-11-08] MEDS ORDERED: FUROSEMIDE 40 MG in SYRINGE 0 ML IV ONE (09:15)
[2020-11-08] MEDS: INSULIN ASPART 100 UNITS/ML 3 ML PEN SC SCH ×4 (09:24→21:48)
[2020-11-08] MEDS: FOLIC ACID 1 MG in SYRINGE 9.8 ML IV SCH (11:04)
[2020-11-08] MEDS: THIAMINE HCL 100 MG TAB PO SCH (11:04)
--- NOTE | 2020-11-08 11:24 | Hospitalist Progress Note ---
Date of Service November 08, 2020 Assessment & Plan (1) Acute hyponatremia: Plan: With significant edema, question of malnutrition/"tea and toast" syndrome, possible worsening diastolic heart failure great response to Lasix, negative 6 liters Lasix 40mg IV this morning, plan for Lasix 40mg PO daily tomorrow Na up to 130 this morning, repeat tomorrow low serum osm with lower urine osm suggesting excessive free water, volume overload appreciate recommendations from Dr Jaramillo (2) Acute on chronic diastolic (congestive) heart failure: Plan: preserved EF with grade III diastolic dysfunction, biatrial dilation, elevated pulm pressures responded well to Lasix, continue Lasix 40mg PO daily (3) Acute UTI: Plan: urine culture with Klebsiella continue Rocephin for now, change to PO in 1-2 days (4) Hyperkalemia: Plan: No EKG changes noted K came down with Lasix, 4.1 today Lasix 40mg daily, give Pot Chloride 20mEq daily (5) Failure to thrive: Plan: Likely multifactorial, consider malnutrition, edema as documented, hypothyroidism, morbid obesity, and chronic deconditioning PT/OT evaluation Agree with patient that she likely will require placement upon discharge, she would like to go to rehab (6) Diabetes mellitus with diabetic polyneuropathy: Plan: sliding scale insulin Diabetic diet, monitor for hypoglycemia, no episodes (7) Hypothyroid: Plan: Patient is on 125 mcg of levothyroxine, will continue T3/T4 normal (8) Hypercholesteremia: Plan: Atorvastatin 40 mg daily (9) Hypertension: Plan: Blood pressure currently stable on current medications, will continue (10) Asthma: Plan: O2 support as ordered. She is on rescue albuterol inhaler (11) Paroxysmal a-fib: Plan: Patient is currently in rate controlled atrial fibrillation on monitor Patient is on metoprolol and amiodarone, will continue these for now Anticoagulated with Eliquis Plan: PT/OT as noted above Will likely need case management to arrange placement on discharge Admission and Anticipated Discharge Date Admission Date: November 06, 2020 Subjective patient feeling better, fluid coming off, still a lot of fluid to give, legs are edematous and hard eating better, drinking well reviewed labs, Na 130, K 4.1, Cr 0.46, magnesium 1.[address] Jaramillo urine culture growing Klebsiella, sensitive to Rocephin wound culture with staph aureus no issues on tele, move to medical floor Review of Systems Review of Systems: All systems reviewed & are unremarkable except as noted in Subjective Constitutional: + weakness; no fever and no fatigue Respiratory: no cough and no dyspnea Cardiovascular: + edema; no chest pain Gastrointestinal: no abdominal pain, no nausea, no vomiting, no constipation and no diarrhea/loose stools Physical Exam Constitutional: well developed, + obese, + disheveled and comfortable; no acute distress ENMT: Mouth: + poor dentition Neck: trachea midline, no thyromegaly Respiratory: normal respiratory effort, lungs clear to auscultation Cardiovascular: Rate/Rhythm: regular rate and regular rhythm Heart Sounds: normal S1 and normal S2; no murmur Extremities: normal capillary refill and + edema Gastrointestinal (Abdomen): normal bowel sounds, soft, nontender, no hepatosplenomegaly Musculoskeletal: Head/Neck/Chest: normocephalic, head atraumatic and neck supple Extremities: + abnormal strength; no cyanosis, no clubbing and no petechiae Skin: + crusts, + dry skin and + erythema Neurologic: CN's II-XI intact bilaterally, moves all extremities and awake; no focal motor deficits Psychiatric: A+Ox3, euthymic affect Results & Data Results & Data ([facility]) Vital Signs (Past 12 Hours) Vital Signs Temp Pulse Pulse Resp BP Pulse Ox 11/08/20 11:02 36.7 C 74 16 128/90 100 11/08/20 07:14 36.6 C 67 17 114/73 95 11/08/20 03:50 36.5 C 60 16 135/68 98 11/08/20 00:08 37.2 C 69 20 127/64 96 Laboratory Results Laboratory Results - last 24 hr 11/06/20 11/07/20 11/07/20 17:31 11:38 16:23 Sodium Potassium Chloride Carbon Dioxide Anion Gap BUN Creatinine Est Cr Clr Drug Dosing Est GFR ( Amer) Est GFR (Non-Af Amer) BUN/Creatinine Ratio Glucose POC Glucose 100 H 108 H Calcium Phosphorus Magnesium Albumin Total T3 <25 L 11/07/20 11/07/20 11/08/20 16:42 20:47 06:57 Sodium 128 L 130 L Potassium 4.4 4.1 Chloride 94 L 97 L Carbon Dioxide 27 29 Anion Gap 7.0 4.0 BUN 8 7 Creatinine 0.60 0.46 L Est Cr Clr Drug Dosing 123.3 158.0 Est GFR ( Amer) 116.4 127.1 Est GFR (Non-Af Amer) 100.5 109.7 BUN/Creatinine Ratio 13.8 15.2 Glucose 96 89 POC Glucose 109 H Calcium 7.8 L 7.7 L Phosphorus 2.4 L 2.6 Magnesium 1.7 L Albumin 2.7 L Total T3 11/08/20 11/08/20 07:13 11:04 Sodium Potassium Chloride Carbon Dioxide Anion Gap BUN Creatinine Est Cr Clr Drug Dosing Est GFR ( Amer) Est GFR (Non-Af Amer) BUN/Creatinine Ratio Glucose POC Glucose 94 118 H Calcium Phosphorus Magnesium Albumin Total T3 Medications Administered Current Inpatient Medications Acetaminophen (Acetaminophen 325 Mg Tab) 650 mg PO Q4H PRN PRN Reason: pain Stop: 12/06/20 16:18 Last Admin: 11/08/20 02:25 Dose: 650 mg Documented by: Albuterol (Albuterol Hfa 8 Gm Inhaler) 2 puffs INH Q4H PRN PRN Reason: Shortness Of Breath Or Wheezing Stop: 12/06/20 16:18 Amiodarone HCl (Amiodarone 200 Mg Tab) 200 mg PO QAM [facility] Stop: 12/07/20 08:59 Last Admin: 11/08/20 08:41 Dose: 200 mg Documented by: Apixaban (Apixaban 5 Mg Tablet) 5 mg PO BID BRIANDA Stop: 12/06/20 20:59 Last Admin: 11/08/20 08:42 Dose: 5 mg Documented by: Atorvastatin Calcium (Atorvastatin 40 Mg Tab) 40 mg PO QPM BRIANDA Stop: 12/06/20 20:59 Last Admin: 11/07/20 22:14 Dose: 40 mg Documented by: Buspirone HCl (Buspirone 5 Mg Tab) 10 mg PO BID BRIANDA Stop: 12/06/20 20:59 Last Admin: 11/08/20 08:37 Dose: 10 mg Documented by: Cyanocobalamin (Cyanocobalamin 500 Mcg Tablet (Vitamin B-12)) 1,000 mcg PO 1200 BRIANDA Stop: 12/07/20 11:59 Last Admin: 11/07/20 12:20 Dose: 1,000 mcg Documented by: Dextrose (Dextrose 50% 50 Ml Syringe) 25 - 50 ml IV UD PRN; Protocol PRN Reason: Hypoglycemia Protocol Stop: 12/06/20 16:18 Diltiazem HCl (Diltiazem Hcl 180 Mg Capcr) 360 mg PO DAILY BRIANDA Stop: 12/07/20 08:59 Last Admin: 11/08/20 08:41 Dose: 360 mg Documented by: Glucagon (Glucagon For Inj 1 Mg Vial) 1 mg SQ UD PRN; Protocol PRN Reason: Hypoglycemia Protocol Stop: 12/06/20 16:18 Glucose (Glucose 10 Tabs/Tube) 4 - 8 tabs PO UD PRN; Protocol PRN Reason: Hypoglycemia Protocol Stop: 12/06/20 16:18 Glucose (Glucose 40% Gel 15 Gm Tube) 15 - 30 gm PO UD PRN; Protocol PRN Reason: Hypoglycemia Protocol Stop: 12/06/20 16:18 Ceftriaxone Sodium 2,000 mg/ (Dextrose) 70 mls @ 100 mls/hr IV DAILY BRIANDA; Protocol Stop: 11/12/20 08:59 Last Infusion: 11/08/20 10:23 Dose: Infused Documented by: Folic Acid 1 mg/ Syringe 10 mls @ 5 mls/min IV QAM BRIANDA Stop: 12/08/20 08:59 Last Admin: 11/08/20 11:04 Dose: 5 mls/min Documented by: Magnesium Sulfate/Dextrose (Magnesium Sulfate / D5w) 1 gm in 100 mls @ 50 mls/hr IV ONE ONE Stop: 11/08/20 13:20 Insulin Aspart (Insulin Aspart 100 Units/Ml 3 Ml Pen) 0 units SC ACHS [facility] Stop: 12/06/20 16:29 Last Admin: 11/08/20 09:24 Dose: Not Given Documented by: Levothyroxine Sodium (Levothyroxine Sodium 125 Mcg Tablet) 125 mcg PO DAILYBB BRIANDA Stop: 12/07/20 06:29 Last Admin: 11/08/20 06:28 Dose: 125 mcg Documented by: Lorazepam (Lorazepam 0.5 Mg Tab) 0.5 mg PO BID PRN PRN Reason: anxiety Stop: 12/06/20 16:18 Last Admin: 11/08/20 09:01 Dose: 0.5 mg Documented by: Magnesium Oxide (Magnesium Oxide 400 Mg Tab) 400 mg PO BID [facility] Stop: 12/06/20 20:59 Last Admin: 11/08/20 08:39 Dose: 400 mg Documented by: Metoprolol Succinate (Metoprolol Succ 50mg Ext Rel Tab) 100 mg PO BID [facility] Stop: 12/06/20 20:59 Last Admin: 11/08/20 08:40 Dose: 100 mg Documented by: Miscellaneous (Carbohydrates For Hypoglycemia ) 15 - 30 gm PO UD PRN PRN Reason: Hypoglycemia Protocol Stop: 12/06/20 16:18 Montelukast Sodium (Montelukast Sodium 10 Mg Tablet) 10 mg PO HS [facility] Stop: 12/06/20 20:59 Last Admin: 11/07/20 22:06 Dose: 10 mg Documented by: Multivitamins/Folic Acid/Vitamin C (Multivitamin Chewable Tab) 1 tab PO QAM [facility] Stop: 12/07/20 08:59 Last Admin: 11/08/20 08:40 Dose: 1 tab Documented by: Nystatin (Nystatin Powder 15gm Btl) 1 appln EXT BID PRN PRN Reason: Affected Skin Folds Stop: 12/06/20 17:28 Last Admin: 11/07/20 06:14 Dose: 1 appln Documented by: Thiamine HCl (Thiamine Hcl 100 Mg Tab) 100 mg PO QAM [facility] Stop: 12/08/20 08:59 Last Admin: 11/08/20 11:04 Dose: 100 mg Documented by: Tramadol HCl (Tramadol Hcl 50 Mg Tablet) 50 mg PO BID [facility] Stop: 12/06/20 20:59 Last Admin: 11/08/20 09:01 Dose: 50 mg Documented by: Venlafaxine HCl (Venlafaxine Hcl Xr 150 Mg Capxr) 150 mg PO QAM [facility] Stop: 12/07/20 08:59 Last Admin: 11/08/20 08:38 Dose: 150 mg Documented by: Vitamin D (Cholecalciferol 1,000 Units 25 Mcg Tab) 1,000 units PO 1200 [facility] Stop: 12/06/20 16:18 Last Admin: 11/07/20 12:20 Dose: 1,000 units Documented by: PG Care Time/CCT Total # of Minutes Spent Total Time Spent with Patient: Total time spent is greater than 50% in coordination of care (as documented) at patient's floor/unit and/or counseling patient: Coding Level of Care Code 27760 Subseq Hosp Care Lvl 3 Diagnoses Acute hyponatremia E87.1 Acute on chronic diastolic (congestive) heart failure I50.33 Hyperkalemia E87.5 Failure to thrive Diabetes mellitus with diabetic polyneuropathy E11.42 Hypothyroid E03.9 Hypothyroidism type: acquired Hypercholesteremia E78.00 Hypertension I10 Asthma J45.20 Asthma severity: mild Asthma persistence: intermittent Asthma complication type: unspecified Paroxysmal a-fib I48.0 Acute UTI N39.0 (1) Hypothyroid Hypothyroidism type: acquired Qualified Code(s): E03.9 - Hypothyroidism, unspecified (2) Asthma Asthma severity: mild Asthma persistence: intermittent Asthma complication type: unspecified Qualified Code(s): J45.20 - Mild intermittent asthma, uncomplicated
[2020-11-08] MEDS ORDERED: MAGNESIUM SULFATE / D5W 1 GM/100 ML BAG IV ONE (11:30)
[2020-11-08] MEDS: CHOLECALCIFEROL 1,000 UNITS 25 MCG TAB PO SCH (12:13)
[2020-11-08] MEDS: CYANOCOBALAMIN 500 MCG TABLET (VITAMIN B-12) PO SCH (12:18)
[2020-11-08] MEDS: ATORVASTATIN 40 MG TAB PO SCH (21:46)
[2020-11-08] MEDS: MONTELUKAST SODIUM 10 MG TABLET PO SCH (21:46)
--- NOTE | 2020-11-09 05:40 | Electrocardiogram Report ---
Test Reason : Blood Pressure : / mmHG Vent. Rate : 058 BPM Atrial Rate : 000 BPM P-R Int : 000 ms QRS Dur : 106 ms QT Int : 540 ms P-R-T Axes : 036 150 089 degrees QTc Int : 531 ms Poor data quality, interpretation may be adversely affected Atrial fibrillation Left atrial enlargement Low voltage QRS Prolonged QT Abnormal ECG When compared with ECG of 08-NOV-2019 11:29, QT has lengthened Confirmed by Paulo Mitchell ([id number]) on 11/09/2020 5:40:22 AM Referred By: REFERRED SELF Confirmed By:Paulo Mitchell
[2020-11-09] MEDS: LEVOTHYROXINE SODIUM 125 MCG TABLET PO SCH (05:58)
[2020-11-09] MEDS: ACETAMINOPHEN 325 MG TAB PO PRN ×2 (05:58→14:37)
--- NOTE | 2020-11-09 06:05 | Electrocardiogram Report ---
Test Reason : Blood Pressure : / mmHG Vent. Rate : 052 BPM Atrial Rate : 070 BPM P-R Int : 000 ms QRS Dur : 096 ms QT Int : 502 ms P-R-T Axes : 000 144 035 degrees QTc Int : 466 ms Possible Atrial fibrillation with slow ventricular response Right axis deviation Low voltage QRS Cannot rule out Anterior infarct (cited on or before 06-NOV-2020) Abnormal ECG When compared with ECG of 06-NOV-2020 07:38, QT has shortened Confirmed by Paulo Mitchell ([id number] on 11/09/2020 6:05:22 AM Referred By: REFERRED SELF Confirmed By:Paulo Mitchell
--- NOTE | 2020-11-09 06:17 | Electrocardiogram Report ---
Test Reason : Blood Pressure : / mmHG Vent. Rate : 058 BPM Atrial Rate : 055 BPM P-R Int : 000 ms QRS Dur : 096 ms QT Int : 498 ms P-R-T Axes : 000 134 045 degrees QTc Int : 488 ms Atrial fibrillation with slow ventricular response Right axis deviation Low voltage QRS Cannot rule out Anterior infarct (cited on or before 06-NOV-2020) Abnormal ECG When compared with ECG of 06-NOV-2020 13:03, No significant change Confirmed by Paulo Mitchell ([id number] on 11/09/2020 6:16:44 AM Referred By: REFERRED SELF Confirmed By:Paulo Mitchell
--- NOTE | 2020-11-09 06:42 | Electrocardiogram Report ---
Test Reason : Blood Pressure : / mmHG Vent. Rate : 067 BPM Atrial Rate : 055 BPM P-R Int : 000 ms QRS Dur : 096 ms QT Int : 466 ms P-R-T Axes : 000 106 040 degrees QTc Int : 492 ms Atrial fibrillation Rightward axis Low voltage QRS Cannot rule out Anterior infarct (cited on or before 06-NOV-2020) Abnormal ECG When compared with ECG of 06-NOV-2020 17:30, No significant change was found Confirmed by Paulo Mitchell ([id number] on 11/09/2020 6:42:36 AM Referred By: REFERRED SELF Confirmed By:Paulo Mitchell
[2020-11-09 07:10] LABS: Albumin Level 2.6 gm/dl (3.4-5.0); BUN Creatinine Ratio 18.3 (10-20); Calcium 7.5 mg/dl (8.5-10.1); Creatinine Clr Calc Pharmacy 151.4 ml/min; Est GFR (African American) 125.3 ml/min; Est GFR (Non-African American) 108.1 ml/min; Potassium 4.2 mmol/L (3.5-5.1)
[2020-11-09 07:11] LABS: Phosphorus 2.7 mg/dl (2.5-4.9)
[2020-11-09] MEDS: METOPROLOL SUCC 50MG EXT REL TAB PO SCH ×2 (08:36→20:54)
[2020-11-09] MEDS: THIAMINE HCL 100 MG TAB PO SCH (08:36)
[2020-11-09] MEDS: MULTIVITAMIN CHEWABLE TAB PO SCH (08:36)
[2020-11-09] MEDS: dilTIAZem HCL 180 MG CAPCR PO SCH (08:36)
[2020-11-09] MEDS: busPIRone 5 MG TAB PO SCH ×2 (08:36→20:52)
[2020-11-09] MEDS: VENLAFAXINE HCL XR 150 MG CAPXR PO SCH (08:36)
[2020-11-09] MEDS: AMIODARONE 200 MG TAB PO SCH (08:36)
[2020-11-09] MEDS: APIXABAN 5 MG TABLET PO SCH ×2 (08:36→20:53)
[2020-11-09] MEDS: FOLIC ACID 1 MG in SYRINGE 9.8 ML IV SCH (08:37)
[2020-11-09] MEDS: MAGNESIUM OXIDE 400 MG TAB PO SCH ×2 (08:37→20:52)
[2020-11-09] MEDS: cefTRIAXone SODIUM 2,000 MG in DEXTROSE 5% 50 ML IV SCH (08:37)
[2020-11-09] MEDS: INSULIN ASPART 100 UNITS/ML 3 ML PEN SC SCH ×4 (08:44→21:14)
[2020-11-09] MEDS: POTASSIUM CHLORIDE CRTAB 20 MEQ TABCR PO SCH (08:49)
[2020-11-09] MEDS: traMADol HCL 50 MG TABLET PO SCH ×2 (08:49→20:51)
[2020-11-09] MEDS: LORazepam 0.5 MG TAB PO PRN ×2 (08:52→20:51)
[2020-11-09] MEDS ORDERED: FUROSEMIDE 40 MG TAB PO SCH (09:00)
--- NOTE | 2020-11-09 10:46 | Nephrology Progress Note ---
Date of Service November 09, 2020 Assessment & Plan (1) Hyponatremia: Plan: Chronic. Hypervolemic. Complicated by poor solute intake and hypothyroidism. Improving with diuresis and increased solute intake. Volume status improving. PO furosemide 40 mg daily started this AM. Appropriately negative fluid balance to this point. We discussed the risks associated with alcohol use and photomania with [place]. Outpatient follow up can be arranged with me post discharge. Otherwise no additional recommendations at this time. Nephrology will sign off. Please call with questions or concerns. (2) Hypothyroid: Admission and Anticipated Discharge Date Admission Date: November 06, 2020 Subjective No acute events overnight. Continued improvement noted. No urinary complaints at this time. Edema improving. Appetite good. I discussed the plan of care with Dr. Pinto this AM. Review of Systems Review of Systems: All systems reviewed & are unremarkable except as noted in HPI & below Physical Exam Constitutional: well developed and + morbidly obese; no acute distress Eyes: no scleral abnormality and no corneal abnormality ENMT: Mouth: no oral mucosal abnormality and oral mucous membranes not dry Neck: normal visual inspection and trachea midline Respiratory: normal respiratory effort Auscultation: lungs clear to auscultation bilaterally Cardiovascular: Rate/Rhythm: regular rate Heart Sounds: normal S1 and normal S2 Extremities: + edema Musculoskeletal: Extremities: no cyanosis and no clubbing Skin: normal turgor; no lesions Neurologic: Motor/Sensory: no tremor and no asterixis Psychiatric: Orientation: alert and oriented x 3 Results & Data ([facility]) Vital Signs (Past 12 Hours) Vital Signs Temp Pulse Resp BP Pulse Ox 11/09/20 08:20 36.7 C 70 18 126/82 90 Laboratory Results Laboratory Results - last 24 hr 11/08/20 11/08/20 11/08/20 11:04 16:45 20:42 Sodium Potassium Chloride Carbon Dioxide Anion Gap BUN Creatinine Est Cr Clr Drug Dosing Est GFR ( Amer) Est GFR (Non-Af Amer) BUN/Creatinine Ratio Glucose POC Glucose 118 H 122 H 113 H Calcium Phosphorus Albumin 11/09/20 11/09/20 06:00 08:25 Sodium 132 L Potassium 4.2 Chloride 98 Carbon Dioxide 30 Anion Gap 4.0 BUN 9 Creatinine 0.48 L Est Cr Clr Drug Dosing 151.4 Est GFR ( Amer) 125.3 Est GFR (Non-Af Amer) 108.1 BUN/Creatinine Ratio 18.3 Glucose 87 POC Glucose 105 H Calcium 7.5 L Phosphorus 2.7 Albumin 2.6 L PG Care Time/CCT Total # of Minutes Spent Total Time Spent with Patient: Total time spent is greater than 50% in coordination of care (as documented) at patient's floor/unit and/or counseling patient: Coding Level of Care Code 17710 Subseq Hosp Care Lvl 2 Diagnoses Hyponatremia E87.1 Hypothyroid E03.9 Hypothyroidism type: acquired (1) Hypothyroid Hypothyroidism type: acquired Qualified Code(s): E03.9 - Hypothyroidism, unspecified
[2020-11-09] MEDS: CHOLECALCIFEROL 1,000 UNITS 25 MCG TAB PO SCH (12:41)
[2020-11-09] MEDS: CYANOCOBALAMIN 500 MCG TABLET (VITAMIN B-12) PO SCH (12:41)
--- NOTE | 2020-11-09 14:22 | Hospitalist Progress Note ---
Date of Service November 09, 2020 Assessment & Plan (1) Acute hyponatremia: Plan: With significant edema, question of malnutrition/"tea and toast" syndrome, possible worsening diastolic heart failure great response to Lasix, negative 6 liters in first 48 hours continue Lasix 40mg PO BID, great UO via medel Na is 132 today low serum osm with lower urine osm suggesting excessive free water, volume overload appreciate recommendations from Dr Jaramillo (2) Acute on chronic diastolic (congestive) heart failure: Plan: preserved EF with grade III diastolic dysfunction, biatrial dilation, elevated pulm pressures responded well to Lasix, continue Lasix 40mg PO BID while here could probably be maintained on 40mg daily on discharge still with volume overload, legs are tight, edematous (3) Acute UTI: Plan: urine culture with Klebsiella continue Rocephin for now, change to PO tomorrow (4) Hyperkalemia: Plan: No EKG changes noted K came down with Lasix, 4.2 today Lasix 40mg BID, give Pot Chloride 20mEq daily (5) Failure to thrive: Plan: Likely multifactorial, consider malnutrition, edema as documented, hypothyroidism, morbid obesity, and chronic deconditioning PT/OT evaluation Agree with patient that she likely will require placement upon discharge, she would like to go to rehab (6) Diabetes mellitus with diabetic polyneuropathy: Plan: sliding scale insulin Diabetic diet, monitor for hypoglycemia, no episodes (7) Hypothyroid: Plan: Patient is on 125 mcg of levothyroxine, will continue T3/T4 normal (8) Hypercholesteremia: Plan: Atorvastatin 40 mg daily (9) Hypertension: Plan: Blood pressure currently stable on current medications, will continue (10) Asthma: Plan: O2 support as ordered. She is on rescue albuterol inhaler (11) Paroxysmal a-fib: Plan: Patient is currently in rate controlled atrial fibrillation on monitor Patient is on metoprolol and amiodarone, will continue these for now Anticoagulated with Eliquis Plan: PT/OT as noted above Will likely need case management to arrange placement on discharge Admission and Anticipated Discharge Date Admission Date: November 06, 2020 Subjective patient doing well, no new issues she is sad that she will be here this weekend, discussed that it takes time to get her to rehab plus I want to remove more fluids, will increase Lasix to 40mg BID she is eating fairly well medel in place, lots of UO no chest pain, no dyspnea, no fever/chills, no cough Review of Systems Review of Systems: All systems reviewed & are unremarkable except as noted in Subjective Cardiovascular: + edema (pitting, bilaterally) Integumentary: + unusual bruising (right arm, from blown IV site) Physical Exam Constitutional: well developed, + obese, + disheveled and comfortable; no acute distress ENMT: Mouth: + poor dentition Neck: trachea midline, no thyromegaly Respiratory: normal respiratory effort, lungs clear to auscultation Cardiovascular: Rate/Rhythm: regular rate and regular rhythm Heart Sounds: normal S1 and normal S2; no murmur Extremities: normal capillary refill and + edema Gastrointestinal (Abdomen): normal bowel sounds, soft, nontender, no hepatosplenomegaly Musculoskeletal: Head/Neck/Chest: normocephalic, head atraumatic and neck supple Extremities: + abnormal strength; no cyanosis, no clubbing and no petechiae Skin: + crusts, + dry skin and + erythema Neurologic: CN's II-XI intact bilaterally, moves all extremities and awake; no focal motor deficits Psychiatric: A+Ox3, euthymic affect Results & Data Results & Data ([facility]) Vital Signs (Past 12 Hours) Vital Signs Temp Pulse Resp BP Pulse Ox 11/09/20 08:20 36.7 C 70 18 126/82 90 Laboratory Results Laboratory Results - last 24 hr 11/08/20 11/08/20 11/09/20 16:45 20:42 06:00 Sodium 132 L Potassium 4.2 Chloride 98 Carbon Dioxide 30 Anion Gap 4.0 BUN 9 Creatinine 0.48 L Est Cr Clr Drug Dosing 151.4 Est GFR ( Amer) 125.3 Est GFR (Non-Af Amer) 108.1 BUN/Creatinine Ratio 18.3 Glucose 87 POC Glucose 122 H 113 H Calcium 7.5 L Phosphorus 2.7 Albumin 2.6 L 11/09/20 11/09/20 08:25 12:03 Sodium Potassium Chloride Carbon Dioxide Anion Gap BUN Creatinine Est Cr Clr Drug Dosing Est GFR ( Amer) Est GFR (Non-Af Amer) BUN/Creatinine Ratio Glucose POC Glucose 105 H 112 H Calcium Phosphorus Albumin Medications Administered Current Inpatient Medications Acetaminophen (Acetaminophen 325 Mg Tab) 650 mg PO Q4H PRN PRN Reason: pain Stop: 12/06/20 16:18 Last Admin: 11/09/20 05:58 Dose: 650 mg Documented by: Albuterol (Albuterol Hfa 8 Gm Inhaler) 2 puffs INH Q4H PRN PRN Reason: Shortness Of Breath Or Wheezing Stop: 12/06/20 16:18 Amiodarone HCl (Amiodarone 200 Mg Tab) 200 mg PO QAM [facility] Stop: 12/07/20 08:59 Last Admin: 11/09/20 08:36 Dose: 200 mg Documented by: Apixaban (Apixaban 5 Mg Tablet) 5 mg PO BID [facility] Stop: 12/06/20 20:59 Last Admin: 11/09/20 08:36 Dose: 5 mg Documented by: Atorvastatin Calcium (Atorvastatin 40 Mg Tab) 40 mg PO QPM [facility] Stop: 12/06/20 20:59 Last Admin: 11/08/20 21:46 Dose: 40 mg Documented by: Buspirone HCl (Buspirone 5 Mg Tab) 10 mg PO BID [facility] Stop: 12/06/20 20:59 Last Admin: 11/09/20 08:36 Dose: 10 mg Documented by: Cyanocobalamin (Cyanocobalamin 500 Mcg Tablet (Vitamin B-12)) 1,000 mcg PO 1200 [facility] Stop: 12/07/20 11:59 Last Admin: 11/09/20 12:41 Dose: 1,000 mcg Documented by: Dextrose (Dextrose 50% 50 Ml Syringe) 25 - 50 ml IV UD PRN; Protocol PRN Reason: Hypoglycemia Protocol Stop: 12/06/20 16:18 Diltiazem HCl (Diltiazem Hcl 180 Mg Capcr) 360 mg PO DAILY [facility] Stop: 12/07/20 08:59 Last Admin: 11/09/20 08:36 Dose: 360 mg Documented by: Furosemide (Furosemide 40 Mg Tab) 40 mg PO QAM [facility] Stop: 12/09/20 08:59 Last Admin: 11/09/20 08:49 Dose: 40 mg Documented by: Glucagon (Glucagon For Inj 1 Mg Vial) 1 mg SQ UD PRN; Protocol PRN Reason: Hypoglycemia Protocol Stop: 12/06/20 16:18 Glucose (Glucose 10 Tabs/Tube) 4 - 8 tabs PO UD PRN; Protocol PRN Reason: Hypoglycemia Protocol Stop: 12/06/20 16:18 Glucose (Glucose 40% Gel 15 Gm Tube) 15 - 30 gm PO UD PRN; Protocol PRN Reason: Hypoglycemia Protocol Stop: 12/06/20 16:18 Ceftriaxone Sodium 2,000 mg/ (Dextrose) 70 mls @ 100 mls/hr IV DAILY BRIANDA; Pr otocol Stop: 11/12/20 08:59 Last Infusion: 11/09/20 09:45 Dose: Infused Documented by: Folic Acid 1 mg/ Syringe 10 mls @ 5 mls/min IV QAM [facility] Stop: 12/08/20 08:59 Last Admin: 11/09/20 08:37 Dose: 5 mls/min Documented by: Insulin Aspart (Insulin Aspart 100 Units/Ml 3 Ml Pen) 0 units SC ACHS [facility] Stop: 12/06/20 16:29 Last Admin: 11/09/20 12:39 Dose: 1 units Documented by: Levothyroxine Sodium (Levothyroxine Sodium 125 Mcg Tablet) 125 mcg PO DAILYBB [facility] Stop: 12/07/20 06:29 Last Admin: 11/09/20 05:58 Dose: 125 mcg Documented by: Lorazepam (Lorazepam 0.5 Mg Tab) 0.5 mg PO BID PRN PRN Reason: anxiety Stop: 12/06/20 16:18 Last Admin: 11/09/20 08:52 Dose: 0.5 mg Documented by: Magnesium Oxide (Magnesium Oxide 400 Mg Tab) 400 mg PO BID [facility] Stop: 12/06/20 20:59 Last Admin: 11/09/20 08:37 Dose: 400 mg Documented by: Metoprolol Succinate (Metoprolol Succ 50mg Ext Rel Tab) 100 mg PO BID [facility] Stop: 12/06/20 20:59 Last Admin: 11/09/20 08:36 Dose: 100 mg Documented by: Miscellaneous (Carbohydrates For Hypoglycemia ) 15 - 30 gm PO UD PRN PRN Reason: Hypoglycemia Protocol Stop: 12/06/20 16:18 Montelukast Sodium (Montelukast Sodium 10 Mg Tablet) 10 mg PO HS [facility] Stop: 12/06/20 20:59 Last Admin: 11/08/20 21:46 Dose: 10 mg Documented by: Multivitamins/Folic Acid/Vitamin C (Multivitamin Chewable Tab) 1 tab PO QAM [facility] Stop: 12/07/20 08:59 Last Admin: 11/09/20 08:36 Dose: 1 tab Documented by: Nystatin (Nystatin Powder 15gm Btl) 1 appln EXT BID PRN PRN Reason: Affected Skin Folds Stop: 12/06/20 17:28 Last Admin: 11/07/20 06:14 Dose: 1 appln Documented by: Potassium Chloride (Potassium Chloride Crtab 20 Meq Tabcr) 20 meq PO QAM [facility] Stop: 12/09/20 08:59 Last Admin: 11/09/20 08:49 Dose: 20 meq Documented by: Thiamine HCl (Thiamine Hcl 100 Mg Tab) 100 mg PO QAM [facility] Stop: 12/08/20 08:59 Last Admin: 11/09/20 08:36 Dose: 100 mg Documented by: Tramadol HCl (Tramadol Hcl 50 Mg Tablet) 50 mg PO BID [facility] Stop: 12/06/20 20:59 Last Admin: 11/09/20 08:49 Dose: 50 mg Documented by: Venlafaxine HCl (Venlafaxine Hcl Xr 150 Mg Capxr) 150 mg PO QAM [facility] Stop: 12/07/20 08:59 Last Admin: 11/09/20 08:36 Dose: 150 mg Documented by: Vitamin D (Cholecalciferol 1,000 Units 25 Mcg Tab) 1,000 units PO 1200 [facility] Stop: 12/06/20 16:18 Last Admin: 11/09/20 12:41 Dose: 1,000 units Documented by: PG Care Time/CCT Total # of Minutes Spent Total Time Spent with Patient: Total time spent is greater than 50% in coordination of care (as documented) at patient's floor/unit and/or counseling patient: Coding Level of Care Code 23514 Subseq Hosp Care Lvl 3 Diagnoses Acute hyponatremia E87.1 Acute on chronic diastolic (congestive) heart failure I50.33 Acute UTI N39.0 Hyperkalemia E87.5 Failure to thrive Diabetes mellitus with diabetic polyneuropathy E11.42 Hypothyroid E03.9 Hypothyroidism type: acquired Hypercholesteremia E78.00 Hypertension I10 Asthma J45.20 Asthma complication type: unspecified Asthma persistence: intermittent Asthma severity: mild Paroxysmal a-fib I48.0 (1) Hypothyroid Hypothyroidism type: acquired Qualified Code(s): E03.9 - Hypothyroidism, unspecified (2) Asthma Asthma complication type: unspecified Asthma persistence: intermittent Asthma severity: mild Qualified Code(s): J45.20 - Mild intermittent asthma, uncomplicated
--- NOTE | 2020-11-09 18:37 | Electrocardiogram Report ---
Test Reason : Blood Pressure : / mmHG Vent. Rate : 069 BPM Atrial Rate : 077 BPM P-R Int : 000 ms QRS Dur : 098 ms QT Int : 454 ms P-R-T Axes : 000 062 -05 degrees QTc Int : 486 ms Atrial fibrillation Low voltage QRS Nonspecific T wave abnormality Prolonged QT Abnormal ECG When compared with ECG of 07-NOV-2020 06:15, QRS axis Shifted left Confirmed by Paulo Mitchell ([id number]) on 11/09/2020 6:37:15 PM Referred By: REFERRED SELF Confirmed By:Paulo Mitchell
[2020-11-09] MEDS: MONTELUKAST SODIUM 10 MG TABLET PO SCH (20:51)
[2020-11-09] MEDS: ATORVASTATIN 40 MG TAB PO SCH (20:52)
[2020-11-09] MEDS: FUROSEMIDE 40 MG TAB PO SCH (20:52)
[2020-11-10] MEDS: ACETAMINOPHEN 325 MG TAB PO PRN ×2 (06:13→14:53)
[2020-11-10] MEDS: LEVOTHYROXINE SODIUM 125 MCG TABLET PO SCH (06:14)
[2020-11-10] MEDS: THIAMINE HCL 100 MG TAB PO SCH (09:33)
[2020-11-10] MEDS: MAGNESIUM OXIDE 400 MG TAB PO SCH ×2 (09:33→20:11)
[2020-11-10] MEDS: busPIRone 5 MG TAB PO SCH ×2 (09:33→20:11)
[2020-11-10] MEDS: APIXABAN 5 MG TABLET PO SCH ×2 (09:33→20:11)
[2020-11-10] MEDS: VENLAFAXINE HCL XR 150 MG CAPXR PO SCH (09:34)
[2020-11-10] MEDS: AMIODARONE 200 MG TAB PO SCH (09:34)
[2020-11-10] MEDS: METOPROLOL SUCC 50MG EXT REL TAB PO SCH ×2 (09:34→20:12)
[2020-11-10] MEDS: MULTIVITAMIN CHEWABLE TAB PO SCH (09:34)
[2020-11-10] MEDS: dilTIAZem HCL 180 MG CAPCR PO SCH (09:35)
[2020-11-10] MEDS: cefTRIAXone SODIUM 2,000 MG in DEXTROSE 5% 50 ML IV SCH (09:35)
[2020-11-10] MEDS: FOLIC ACID 1 MG in SYRINGE 9.8 ML IV SCH (09:36)
[2020-11-10] MEDS: INSULIN ASPART 100 UNITS/ML 3 ML PEN SC SCH ×4 (09:42→21:05)
[2020-11-10] MEDS: POTASSIUM CHLORIDE CRTAB 20 MEQ TABCR PO SCH (09:55)
[2020-11-10] MEDS: traMADol HCL 50 MG TABLET PO SCH ×2 (09:55→20:14)
[2020-11-10] MEDS: LORazepam 0.5 MG TAB PO PRN ×2 (09:55→20:10)
[2020-11-10] MEDS: FUROSEMIDE 40 MG TAB PO SCH ×2 (10:23→20:10)
[2020-11-10] MEDS: CYANOCOBALAMIN 500 MCG TABLET (VITAMIN B-12) PO SCH (12:38)
[2020-11-10] MEDS: CHOLECALCIFEROL 1,000 UNITS 25 MCG TAB PO SCH (12:38)
--- NOTE | 2020-11-10 13:09 | Hospitalist Progress Note ---
Date of Service November 10, 2020 Assessment & Plan (1) Acute hyponatremia: Plan: With significant edema, question of malnutrition/"tea and toast" syndrome, possible worsening diastolic heart failure great response to Lasix, negative 16 liters total continue Lasix 40mg PO BID, great UO via medel Na is 132 yesterday, will repeat tomorrow low serum osm with lower urine osm suggesting excessive free water, volume overload appreciate recommendations from Dr Jaramillo (2) Acute on chronic diastolic (congestive) heart failure: Plan: preserved EF with grade III diastolic dysfunction, biatrial dilation, elevated pulm pressures responded well to Lasix, continue Lasix 40mg PO BID while here could probably be maintained on 40mg daily on discharge still with volume overload, legs are tight, edematous fluid restrict to 1800mL a day negative 16 liters, weight down 16kg (3) Acute UTI: Plan: urine culture with Klebsiella continue Rocephin for now, change to PO today (4) Hyperkalemia: Plan: No EKG changes noted K came down with Lasix, 4.2 yesterday Lasix 40mg BID, give Pot Chloride 20mEq daily check BMP tomorrow (5) Failure to thrive: Plan: Likely multifactorial, consider malnutrition, edema as documented, hypothyroidism, morbid obesity, and chronic deconditioning PT/OT evaluation Agree with patient that she likely will require placement upon discharge, she would like to go to rehab (6) Diabetes mellitus with diabetic polyneuropathy: Plan: sliding scale insulin Diabetic diet, monitor for hypoglycemia, no episodes (7) Hypothyroid: Plan: Patient is on 125 mcg of levothyroxine, will continue T3/T4 normal (8) Hypercholesteremia: Plan: Atorvastatin 40 mg daily (9) Hypertension: Plan: Blood pressure currently stable on current medications, will continue (10) Asthma: Plan: O2 support as ordered. She is on rescue albuterol inhaler (11) Paroxysmal a-fib: Plan: Patient is currently in rate controlled atrial fibrillation on monitor Patient is on metoprolol and amiodarone, will continue these for now Anticoagulated with Eliquis Plan: PT/OT as noted above Will likely need case management to arrange placement on discharge Admission and Anticipated Discharge Date Admission Date: November 06, 2020 Subjective reviewed chart, negative 16 liters, down 16kg which correlates with volume loss she still has more fluid to give, will place on fluid restriction since Na up to close to normal she says her eyes are itching, requesting Zyrtec breathing well, no cough, eating well still with plans for rehab early next week Review of Systems Review of Systems: All systems reviewed & are unremarkable except as noted in Subjective Respiratory: + dyspnea on exertion; no cough and no dyspnea Cardiovascular: + edema; no chest pain Gastrointestinal: no abdominal pain, no nausea, no vomiting, no constipation and no diarrhea/loose stools Physical Exam Constitutional: well developed, + obese, + disheveled and comfortable; no acute distress ENMT: Mouth: + poor dentition Neck: trachea midline, no thyromegaly Respiratory: normal respiratory effort, lungs clear to auscultation Cardiovascular: Rate/Rhythm: regular rate and regular rhythm Heart Sounds: normal S1 and normal S2; no murmur Extremities: normal capillary refill and + edema Gastrointestinal (Abdomen): normal bowel sounds, soft, nontender, no hepatosplenomegaly Musculoskeletal: Head/Neck/Chest: normocephalic, head atraumatic and neck supple Extremities: + abnormal strength; no cyanosis, no clubbing and no petechiae Skin: + crusts, + dry skin and + erythema Neurologic: CN's II-XI intact bilaterally, moves all extremities and awake; no focal motor deficits Psychiatric: A+Ox3, euthymic affect Results & Data Results & Data ([facility]) Vital Signs (Past 12 Hours) Vital Signs Temp Pulse Resp BP Pulse Ox 11/10/20 08:05 36.5 C 67 16 115/67 90 Laboratory Results Laboratory Results - last 24 hr 11/09/20 11/09/20 11/10/20 17:18 20:28 08:08 POC Glucose 119 H 105 H 105 H 11/10/20 12:13 POC Glucose 108 H Medications Administered Current Inpatient Medications Acetaminophen (Acetaminophen 325 Mg Tab) 650 mg PO Q4H PRN PRN Reason: pain Stop: 12/06/20 16:18 Last Admin: 11/10/20 06:13 Dose: 650 mg Documented by: Albuterol (Albuterol Hfa 8 Gm Inhaler) 2 puffs INH Q4H PRN PRN Reason: Shortness Of Breath Or Wheezing Stop: 12/06/20 16:18 Amiodarone HCl (Amiodarone 200 Mg Tab) 200 mg PO QAM [facility] Stop: 12/07/20 08:59 Last Admin: 11/10/20 09:34 Dose: 200 mg Documented by: Apixaban (Apixaban 5 Mg Tablet) 5 mg PO BID [facility] Stop: 12/06/20 20:59 Last Admin: 11/10/20 09:33 Dose: 5 mg Documented by: Atorvastatin Calcium (Atorvastatin 40 Mg Tab) 40 mg PO QPM [facility] Stop: 12/06/20 20:59 Last Admin: 11/09/20 20:52 Dose: 40 mg Documented by: Buspirone HCl (Buspirone 5 Mg Tab) 10 mg PO BID [facility] Stop: 12/06/20 20:59 Last Admin: 11/10/20 09:33 Dose: 10 mg Documented by: Cyanocobalamin (Cyanocobalamin 500 Mcg Tablet (Vitamin B-12)) 1,000 mcg PO 1200 [facility] Stop: 12/07/20 11:59 Last Admin: 11/10/20 12:38 Dose: 1,000 mcg Documented by: Dextrose (Dextrose 50% 50 Ml Syringe) 25 - 50 ml IV UD PRN; Protocol PRN Reason: Hypoglycemia Protocol Stop: 12/06/20 16:18 Diltiazem HCl (Diltiazem Hcl 180 Mg Capcr) 360 mg PO DAILY [facility] Stop: 12/07/20 08:59 Last Admin: 11/10/20 09:35 Dose: 360 mg Documented by: Furosemide (Furosemide 40 Mg Tab) 40 mg PO BID [facility] Stop: 12/09/20 20:59 Last Admin: 11/10/20 10:23 Dose: 40 mg Documented by: Glucagon (Glucagon For Inj 1 Mg Vial) 1 mg SQ UD PRN; Protocol PRN Reason: Hypoglycemia Protocol Stop: 12/06/20 16:18 Glucose (Glucose 10 Tabs/Tube) 4 - 8 tabs PO UD PRN; Protocol PRN Reason: Hypoglycemia Protocol Stop: 12/06/20 16:18 Glucose (Glucose 40% Gel 15 Gm Tube) 15 - 30 gm PO UD PRN; Protocol PRN Reason: Hypoglycemia Protocol Stop: 12/06/20 16:18 Ceftriaxone Sodium 2,000 mg/ (Dextrose) 70 mls @ 100 mls/hr IV DAILY [facility]ANDA; Protocol Stop: 11/12/20 08:59 Last Infusion: 11/10/20 10:17 Dose: Infused Documented by: Folic Acid 1 mg/ Syringe 10 mls @ 5 mls/min IV QAM [facility] Stop: 12/08/20 08:59 Last Admin: 11/10/20 09:36 Dose: 5 mls/min Documented by: Insulin Aspart (Insulin Aspart 100 Units/Ml 3 Ml Pen) 0 units SC ACHS [facility] Stop: 12/06/20 16:29 Last Admin: 11/10/20 12:40 Dose: 2 units Documented by: Levothyroxine Sodium (Levothyroxine Sodium 125 Mcg Tablet) 125 mcg PO DAILYBB [facility] Stop: 12/07/20 06:29 Last Admin: 11/10/20 06:14 Dose: 125 mcg Documented by: Lorazepam (Lorazepam 0.5 Mg Tab) 0.5 mg PO BID PRN PRN Reason: anxiety Stop: 12/06/20 16:18 Last Admin: 11/10/20 09:55 Dose: 0.5 mg Documented by: Magnesium Oxide (Magnesium Oxide 400 Mg Tab) 400 mg PO BID [facility] Stop: 12/06/20 20:59 Last Admin: 11/10/20 09:33 Dose: 400 mg Documented by: Metoprolol Succinate (Metoprolol Succ 50mg Ext Rel Tab) 100 mg PO BID [facility] Stop: 12/06/20 20:59 Last Admin: 11/10/20 09:34 Dose: 100 mg Documented by: Miscellaneous (Carbohydrates For Hypoglycemia ) 15 - 30 gm PO UD PRN PRN Reason: Hypoglycemia Protocol Stop: 12/06/20 16:18 Montelukast Sodium (Montelukast Sodium 10 Mg Tablet) 10 mg PO HS [facility] Stop: 12/06/20 20:59 Last Admin: 11/09/20 20:51 Dose: 10 mg Documented by: Multivitamins/Folic Acid/Vitamin C (Multivitamin Chewable Tab) 1 tab PO QAM [facility] Stop: 12/07/20 08:59 Last Admin: 11/10/20 09:34 Dose: 1 tab Documented by: Nystatin (Nystatin Powder 15gm Btl) 1 appln EXT BID PRN PRN Reason: Affected Skin Folds Stop: 12/06/20 17:28 Last Admin: 11/07/20 06:14 Dose: 1 appln Documented by: Potassium Chloride (Potassium Chloride Crtab 20 Meq Tabcr) 20 meq PO QAM [facility] Stop: 12/09/20 08:59 Last Admin: 11/10/20 09:55 Dose: 20 meq Documented by: Thiamine HCl (Thiamine Hcl 100 Mg Tab) 100 mg PO QAM [facility] Stop: 12/08/20 08:59 Last Admin: 11/10/20 09:33 Dose: 100 mg Documented by: Tramadol HCl (Tramadol Hcl 50 Mg Tablet) 50 mg PO BID [facility] Stop: 12/06/20 20:59 Last Admin: 11/10/20 09:55 Dose: 50 mg Documented by: Venlafaxine HCl (Venlafaxine Hcl Xr 150 Mg Capxr) 150 mg PO QAM [facility] Stop: 12/07/20 08:59 Last Admin: 11/10/20 09:34 Dose: 150 mg Documented by: Vitamin D (Cholecalciferol 1,000 Units 25 Mcg Tab) 1,000 units PO 1200 [facility] Stop: 12/06/20 16:18 Last Admin: 11/10/20 12:38 Dose: 1,000 units Documented by: PG Care Time/CCT Total # of Minutes Spent Total Time Spent with Patient: Total time spent is greater than 50% in coordination of care (as documented) at patient's floor/unit and/or counseling patient: Coding Level of Care Code 89058 Subseq Hosp Care Lvl 3 Diagnoses Acute hyponatremia E87.1 Acute on chronic diastolic (congestive) heart failure I50.33 Acute UTI N39.0 Hyperkalemia E87.5 Failure to thrive Diabetes mellitus with diabetic polyneuropathy E11.42 Hypothyroid E03.9 Hypothyroidism type: acquired Hypercholesteremia E78.00 Hypertension I10 Asthma J45.20 Asthma severity: mild Asthma persistence: intermittent Asthma complication type: unspecified Paroxysmal a-fib I48.0 (1) Hypothyroid Hypothyroidism type: acquired Qualified Code(s): E03.9 - Hypothyroidism, unspecified (2) Asthma Asthma severity: mild Asthma persistence: intermittent Asthma complication type: unspecified Qualified Code(s): J45.20 - Mild intermittent asthma, uncomplicated
[2020-11-10] MEDS: CETIRIZINE HCL 10 MG TABLET PO SCH (14:09)
[2020-11-10] MEDS: MONTELUKAST SODIUM 10 MG TABLET PO SCH (20:10)
[2020-11-10] MEDS: ATORVASTATIN 40 MG TAB PO SCH (20:11)
[2020-11-11] MEDS: ACETAMINOPHEN 325 MG TAB PO PRN ×3 (01:04→14:42)
[2020-11-11] MEDS: LEVOTHYROXINE SODIUM 125 MCG TABLET PO SCH (06:19)
[2020-11-11 07:08] LABS: BUN Creatinine Ratio 16.4 (10-20); Calcium 7.8 mg/dl (8.5-10.1); Creatinine Clr Calc Pharmacy 153.8 ml/min; Est GFR (African American) 125.3 ml/min; Est GFR (Non-African American) 108.1 ml/min; Magnesium 1.5 mg/dl (1.8-2.4); Potassium 3.9 mmol/L (3.5-5.1)
[2020-11-11] MEDS: INSULIN ASPART 100 UNITS/ML 3 ML PEN SC SCH ×4 (09:24→21:49)
[2020-11-11] MEDS: CEFDINIR 300 MG CAP PO SCH ×2 (09:33→20:50)
[2020-11-11] MEDS: MULTIVITAMIN CHEWABLE TAB PO SCH (09:34)
[2020-11-11] MEDS: FOLIC ACID 1 MG in SYRINGE 9.8 ML IV SCH (09:35)
[2020-11-11] MEDS: MAGNESIUM OXIDE 400 MG TAB PO SCH ×2 (09:35→20:51)
[2020-11-11] MEDS: THIAMINE HCL 100 MG TAB PO SCH (09:35)
[2020-11-11] MEDS: AMIODARONE 200 MG TAB PO SCH (09:35)
[2020-11-11] MEDS: FUROSEMIDE 40 MG TAB PO SCH ×2 (09:35→20:50)
[2020-11-11] MEDS: VENLAFAXINE HCL XR 150 MG CAPXR PO SCH (09:36)
[2020-11-11] MEDS: dilTIAZem HCL 180 MG CAPCR PO SCH (09:36)
[2020-11-11] MEDS: CETIRIZINE HCL 10 MG TABLET PO SCH (09:36)
[2020-11-11] MEDS: busPIRone 5 MG TAB PO SCH ×2 (09:37→20:50)
[2020-11-11] MEDS: APIXABAN 5 MG TABLET PO SCH ×2 (09:37→20:49)
[2020-11-11] MEDS: METOPROLOL SUCC 50MG EXT REL TAB PO SCH ×2 (09:37→20:50)
[2020-11-11] MEDS: traMADol HCL 50 MG TABLET PO SCH ×2 (09:38→20:48)
[2020-11-11] MEDS: LORazepam 0.5 MG TAB PO PRN ×2 (09:39→20:49)
[2020-11-11] MEDS: POTASSIUM CHLORIDE CRTAB 20 MEQ TABCR PO SCH (10:01)
--- NOTE | 2020-11-11 11:21 | Hospitalist Progress Note ---
Date of Service November 11, 2020 Assessment & Plan (1) Acute hyponatremia: Plan: With significant edema, question of malnutrition/"tea and toast" syndrome, possible worsening diastolic heart failure great response to Lasix, negative 16 liters total continue Lasix 40mg PO BID, great UO via medel Na is 134 today low serum osm with lower urine osm on admission suggesting excessive free water, volume overload appreciate recommendations from Dr Jaramillo, nephrology signed off, agreed with daily Lasix on discharge (2) Acute on chronic diastolic (congestive) heart failure: Plan: preserved EF with grade III diastolic dysfunction, biatrial dilation, elevated pulm pressures responded well to Lasix, continue Lasix 40mg PO BID while here could probably be maintained on 40mg daily on discharge still with volume overload, legs are tight, edematous fluid restrict to 1800mL a day negative 19 liters (3) Acute UTI: Plan: urine culture with Klebsiella continue Rocephin for now, change to PO Cefdinir 300mg BID complete 7 days total (4) Hyperkalemia: Plan: No EKG changes noted K came down with Lasix Lasix 40mg BID, give Pot Chloride 20mEq daily K is 3.9 (5) Failure to thrive: Plan: Likely multifactorial, consider malnutrition, edema as documented, hypothyroidism, morbid obesity, and chronic deconditioning PT/OT evaluation Agree with patient that she likely will require placement upon discharge, she would like to go to rehab (6) Diabetes mellitus with diabetic polyneuropathy: Plan: sliding scale insulin Diabetic diet, monitor for hypoglycemia, no episodes (7) Hypothyroid: Plan: Patient is on 125 mcg of levothyroxine, will continue T3/T4 normal (8) Hypercholesteremia: Plan: Atorvastatin 40 mg daily (9) Hypertension: Plan: Blood pressure currently stable on current medications, will continue (10) Asthma: Plan: O2 support as ordered. She is on rescue albuterol inhaler (11) Paroxysmal a-fib: Plan: Patient is currently in rate controlled atrial fibrillation on monitor Patient is on metoprolol and amiodarone, will continue these for now Anticoagulated with Eliquis (12) Anxiety: Plan: takes Ativan 1mg BID at home, requesting something mid day, having a lot more anxiety, worried about going to SNF will add 0.5mg PO PRN Plan: PT/OT as noted above Will likely need case management to arrange placement on discharge Admission and Anticipated Discharge Date Admission Date: November 06, 2020 Subjective patient doing great, breathing well urine output is significant, negative 19L, still with edema in legs right lateral knee is tender, has a bruise at that location, she thinks she hit it on the bedrail right arm bruised and swollen from prior IV site eating well no chest pain, no fever, no headache, no N/V/D Review of Systems Review of Systems: All systems reviewed & are unremarkable except as noted in Subjective Physical Exam Constitutional: well developed, + obese, + disheveled and comfortable; no acute distress ENMT: Mouth: + poor dentition Neck: trachea midline, no thyromegaly Respiratory: normal respiratory effort, lungs clear to auscultation Cardiovascular: Rate/Rhythm: regular rate and regular rhythm Heart Sounds: normal S1 and normal S2; no murmur Extremities: normal capillary refill and + edema Gastrointestinal (Abdomen): normal bowel sounds, soft, nontender, no hepatosplenomegaly Musculoskeletal: Head/Neck/Chest: normocephalic, head atraumatic and neck supple Extremities: + abnormal strength; no cyanosis, no clubbing and no petechiae Knee: + knee abnormal to inspection (right knee bruise laterally, incision from prior TKA) Skin: + crusts, + dry skin and + erythema Neurologic: CN's II-XI intact bilaterally, moves all extremities and awake; no focal motor deficits Psychiatric: A+Ox3, euthymic affect Results & Data Results & Data ([facility]) Vital Signs (Past 12 Hours) Vital Signs Temp Pulse Resp BP Pulse Ox 11/11/20 09:32 74 103/69 11/11/20 07:14 36.8 C 75 16 124/70 93 Laboratory Results Laboratory Results - last 24 hr 11/10/20 11/10/20 11/10/20 12:13 17:06 20:32 Sodium Potassium Chloride Carbon Dioxide Anion Gap BUN Creatinine Est Cr Clr Drug Dosing Est GFR ( Amer) Est GFR (Non-Af Amer) BUN/Creatinine Ratio Glucose POC Glucose 108 H 109 H 99 Calcium Magnesium 11/11/20 11/11/20 06:11 08:23 Sodium 134 L Potassium 3.9 Chloride 98 Carbon Dioxide 31 Anion Gap 5.0 BUN 8 Creatinine 0.48 L Est Cr Clr Drug Dosing 153.8 Est GFR ( Amer) 125.3 Est GFR (Non-Af Amer) 108.1 BUN/Creatinine Ratio 16.4 Glucose 90 POC Glucose 101 H Calcium 7.8 L Magnesium 1.5 L Medications Administered Current Inpatient Medications Acetaminophen (Acetaminophen 325 Mg Tab) 650 mg PO Q4H PRN PRN Reason: pain Stop: 12/06/20 16:18 Last Admin: 11/11/20 04:51 Dose: 650 mg Documented by: Albuterol (Albuterol Hfa 8 Gm Inhaler) 2 puffs INH Q4H PRN PRN Reason: Shortness Of Breath Or Wheezing Stop: 12/06/20 16:18 Amiodarone HCl (Amiodarone 200 Mg Tab) 200 mg PO QAM [facility] Stop: 12/07/20 08:59 Last Admin: 11/11/20 09:35 Dose: 200 mg Documented by: Apixaban (Apixaban 5 Mg Tablet) 5 mg PO BID [facility] Stop: 12/06/20 20:59 Last Admin: 11/11/20 09:37 Dose: 5 mg Documented by: Atorvastatin Calcium (Atorvastatin 40 Mg Tab) 40 mg PO QPM BRIANDA Stop: 12/06/20 20:59 Last Admin: 11/10/20 20:11 Dose: 40 mg Documented by: Buspirone HCl (Buspirone 5 Mg Tab) 10 mg PO BID [facility] Stop: 12/06/20 20:59 Last Admin: 11/11/20 09:37 Dose: 10 mg Documented by: Cefdinir (Cefdinir 300 Mg Cap) 300 mg PO Q12 BRIANDA; Protocol Stop: 11/16/20 08:59 Last Admin: 11/11/20 09:33 Dose: 300 mg Documented by: Cetirizine HCl (Cetirizine Hcl 10 Mg Tablet) 10 mg PO QAM [facility] Stop: 12/10/20 13:14 Last Admin: 11/11/20 09:36 Dose: 10 mg Documented by: Cyanocobalamin (Cyanocobalamin 500 Mcg Tablet (Vitamin B-12)) 1,000 mcg PO 1200 BRIANDA Stop: 12/07/20 11:59 Last Admin: 11/10/20 12:38 Dose: 1,000 mcg Documented by: Dextrose (Dextrose 50% 50 Ml Syringe) 25 - 50 ml IV UD PRN; Protocol PRN Reason: Hypoglycemia Protocol Stop: 12/06/20 16:18 Diltiazem HCl (Diltiazem Hcl 180 Mg Capcr) 360 mg PO DAILY BRIANDA Stop: 12/07/20 08:59 Last Admin: 11/11/20 09:36 Dose: 360 mg Documented by: Furosemide (Furosemide 40 Mg Tab) 40 mg PO BID BRIANDA Stop: 12/09/20 20:59 Last Admin: 11/11/20 09:35 Dose: 40 mg Documented by: Glucagon (Glucagon For Inj 1 Mg Vial) 1 mg SQ UD PRN; Protocol PRN Reason: Hypoglycemia Protocol Stop: 12/06/20 16:18 Glucose (Glucose 10 Tabs/Tube) 4 - 8 tabs PO UD PRN; Protocol PRN Reason: Hypoglycemia Protocol Stop: 12/06/20 16:18 Glucose (Glucose 40% Gel 15 Gm Tube) 15 - 30 gm PO UD PRN; Protocol PRN Reason: Hypoglycemia Protocol Stop: 12/06/20 16:18 Folic Acid 1 mg/ Syringe 10 mls @ 5 mls/min IV QAM BRIANDA Stop: 12/08/20 08:59 Last Admin: 11/11/20 09:35 Dose: 5 mls/min Documented by: Insulin Aspart (Insulin Aspart 100 Units/Ml 3 Ml Pen) 0 units SC ACHS BRIANDA Stop: 12/06/20 16:29 Last Admin: 11/11/20 09:24 Dose: 1 units Documented by: Levothyroxine Sodium (Levothyroxine Sodium 125 Mcg Tablet) 125 mcg PO DAILYBB BRIANDA Stop: 12/07/20 06:29 Last Admin: 11/11/20 06:19 Dose: 125 mcg Documented by: Lorazepam (Lorazepam 0.5 Mg Tab) 0.5 mg PO BID PRN PRN Reason: anxiety Stop: 12/06/20 16:18 Last Admin: 11/11/20 09:39 Dose: 0.5 mg Documented by: Magnesium Oxide (Magnesium Oxide 400 Mg Tab) 400 mg PO BID BRIANDA Stop: 12/06/20 20:59 Last Admin: 11/11/20 09:35 Dose: 400 mg Documented by: Metoprolol Succinate (Metoprolol Succ 50mg Ext Rel Tab) 100 mg PO BID BRIANDA Stop: 12/06/20 20:59 Last Admin: 11/11/20 09:37 Dose: 100 mg Documented by: Miscellaneous (Carbohydrates For Hypoglycemia ) 15 - 30 gm PO UD PRN PRN Reason: Hypoglycemia Protocol Stop: 12/06/20 16:18 Montelukast Sodium (Montelukast Sodium 10 Mg Tablet) 10 mg PO HS [facility] Stop: 12/06/20 20:59 Last Admin: 11/10/20 20:10 Dose: 10 mg Documented by: Multivitamins/Folic Acid/Vitamin C (Multivitamin Chewable Tab) 1 tab PO QAM [facility] Stop: 12/07/20 08:59 Last Admin: 11/11/20 09:34 Dose: 1 tab Documented by: Nystatin (Nystatin Powder 15gm Btl) 1 appln EXT BID PRN PRN Reason: Affected Skin Folds Stop: 12/06/20 17:28 Last Admin: 11/07/20 06:14 Dose: 1 appln Documented by: Potassium Chloride (Potassium Chloride Crtab 20 Meq Tabcr) 20 meq PO QAM [facility] Stop: 12/09/20 08:59 Last Admin: 11/11/20 10:01 Dose: 20 meq Documented by: Thiamine HCl (Thiamine Hcl 100 Mg Tab) 100 mg PO QAM [facility] Stop: 12/08/20 08:59 Last Admin: 11/11/20 09:35 Dose: 100 mg Documented by: Tramadol HCl (Tramadol Hcl 50 Mg Tablet) 50 mg PO BID [facility] Stop: 12/06/20 20:59 Last Admin: 11/11/20 09:38 Dose: 50 mg Documented by: Venlafaxine HCl (Venlafaxine Hcl Xr 150 Mg Capxr) 150 mg PO QAM [facility] Stop: 12/07/20 08:59 Last Admin: 11/11/20 09:36 Dose: 150 mg Documented by: Vitamin D (Cholecalciferol 1,000 Units 25 Mcg Tab) 1,000 units PO 1200 [facility] Stop: 12/06/20 16:18 Last Admin: 11/10/20 12:38 Dose: 1,000 units Documented by: PG Care Time/CCT Total # of Minutes Spent Total Time Spent with Patient: Total time spent is greater than 50% in coordination of care (as documented) at patient's floor/unit and/or counseling patient: Coding Level of Care Code 61779 Subseq Hosp Care Lvl 3 Diagnoses Acute hyponatremia E87.1 Acute on chronic diastolic (congestive) heart failure I50.33 Acute UTI N39.0 Hyperkalemia E87.5 Failure to thrive Diabetes mellitus with diabetic polyneuropathy E11.42 Hypothyroid E03.9 Hypothyroidism type: acquired Hypercholesteremia E78.00 Hypertension I10 Asthma J45.20 Asthma severity: mild Asthma persistence: intermittent Asthma complication type: unspecified Paroxysmal a-fib I48.0 Anxiety F41.9 (1) Hypothyroid Hypothyroidism type: acquired Qualified Code(s): E03.9 - Hypothyroidism, unspecified (2) Asthma Asthma severity: mild Asthma persistence: intermittent Asthma complication type: unspecified Qualified Code(s): J45.20 - Mild intermittent asthma, uncomplicated
[2020-11-11] MEDS: CHOLECALCIFEROL 1,000 UNITS 25 MCG TAB PO SCH (12:32)
[2020-11-11] MEDS: CYANOCOBALAMIN 500 MCG TABLET (VITAMIN B-12) PO SCH (12:32)
[2020-11-11] MEDS: MONTELUKAST SODIUM 10 MG TABLET PO SCH (20:49)
[2020-11-11] MEDS: ATORVASTATIN 40 MG TAB PO SCH (20:49)
[2020-11-12] MEDS: ACETAMINOPHEN 325 MG TAB PO PRN (01:02)
[2020-11-12] MEDS: LEVOTHYROXINE SODIUM 125 MCG TABLET PO SCH (05:38)
--- NOTE | 2020-11-12 08:44 | Hospitalist Progress Note ---
Date of Service November 12, 2020 Assessment & Plan (1) Acute hyponatremia: Plan: With significant edema, question of malnutrition/"tea and toast" syndrome, possible worsening diastolic heart failure great response to Lasix, negative 21.9L liters total continue Lasix 40mg PO BID, great UO via medel --> discussed possible 1x/daily dosing and prn dose based on edema vs BID and then prn for edema. Will continue to monitor response --> almost euvolemic Na is 134 -- repeat BMP pending low serum osm with lower urine osm on admission suggesting excessive free water, volume overload TSH also elevated to 7.08 in patient on replacement --> increased from 125mcg to 137mcg daily although there were some reports of her taking 100mcg tablets prior to admission as well. Rec repeating TFT in 4 weeks and further adjustment as needed. 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 (2) Acute on chronic diastolic (congestive) heart failure: Plan: preserved EF with grade III diastolic dysfunction, biatrial dilation, elevated pulm pressures responded well to Lasix, continue Lasix 40mg PO BID while here could probably be maintained on 40mg daily on discharge still with volume overload, legs are tight, edematous fluid restrict to 1800mL a day negative 21 liters (3) Acute UTI: Plan: urine culture with Klebsiella continue Rocephin for now, change to PO Cefdinir 300mg BID complete 7 days total (on day 6 of treatment) (4) Hyperkalemia: Plan: No EKG changes noted K came down with Lasix Lasix 40mg BID, give Pot Chloride 20mEq daily K is 3.9 Repeat BMP pending (5) Failure to thrive: Plan: Likely multifactorial, consider malnutrition, edema as documented, hypothyroidism, morbid obesity, and chronic deconditioning PT/OT evaluation Agree with patient that she likely will require placement upon discharge, she would like to go to rehab --> bed available at [facility] tomorrow (6) Diabetes mellitus with diabetic polyneuropathy: Plan: sliding scale insulin Diabetic diet, monitor for hypoglycemia, no episodes (7) Hypothyroid: Plan: Patient is on 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 She is on rescue albuterol inhaler Also obtaining overnight pulse ox for likely underlying sleep apnea -- will need formal outpt sleep study pending pulse ox overnight (11) Paroxysmal a-fib: Plan: Patient is currently in rate controlled atrial fibrillation on monitor Patient is on metoprolol and amiodarone, will continue these for now Anticoagulated with Eliquis (12) Anxiety: Plan: takes Ativan 1mg BID at home, requesting something mid day, having a lot more anxiety, worried about going to SNF will add 0.5mg PO PRN --> increased to TID prn last evening Plan: PT/OT as noted above -- [facility] Admission and Anticipated Discharge Date Admission Date: November 06, 2020 Supervising Physician Co-Signing Physician Notes PA Supervision Note: I did not personally see or examine the patient today, but I verified all vega points of BALTAZAR Murray's assessment and plan with the following exceptions/additions: None Subjective Patient evaluated this morning. Feeling better. Improved strength. + BM this morning. Decreased edema to legs and abdomen -- she notes abd fullness was her first sign. Discussed lasix daily at d/c and possible prn doses/follow up with CHF clinic -- she is excited and would like to learn more about this/possible follow up. Will message Zahraa Joaquin -- she knows as prior Dr Ramona LEDESMA. Discussed thyroid medication -- had been taking 100mcg but agreeable to 137mcg dose and repeat TFT in 4 weeks with her PCP. [facility] to have bed tomorrow -- she is excited about getting stronger as she is moving into a one floor unit in near future. She also endorses she was told she should consider CPAP in the future had reports some low testing on previous admissions -- will obtain overnight pulse ox and set up at d/c and recs for outpt sleep study pending those results. No fever, chills, chest pain, shortness of breath, abdominal pain, nausea or vomiting. She did endorse fatigue, lethargy, constipation, edema and memory fog prior to admission. Discussed these should improve with thyroid adjustment as well as diuresis. Questions/concerns addressed at this time. Review of Systems Review of Systems: All systems reviewed & are unremarkable except as noted in HPI & below Physical Exam Constitutional: well developed, + obese and comfortable; no acute distress Eyes: + anicteric sclerae and PERRL ENMT: Mouth: + poor dentition Neck: trachea midline, no thyromegaly Respiratory: normal respiratory effort, lungs clear to auscultation ON ROOM AIR Cardiovascular: Rate/Rhythm: regular rate and regular rhythm Heart Sounds: normal S1 and normal S2; no murmur Extremities: normal capillary refill and + edema (Decreased b/l) Gastrointestinal (Abdomen): normal bowel sounds, soft, nontender, no hepatosplenomegaly Musculoskeletal: Head/Neck/Chest: normocephalic, head atraumatic and neck supple Extremities: + abnormal strength; no cyanosis, no clubbing and no petechiae Knee: + knee abnormal to inspection (right knee bruise laterally, incision from prior TKA) Skin: + crusts, + dry skin and + erythema Neurologic: CN's II-XI intact bilaterally, moves all extremities and awake; no focal motor deficits Psychiatric: A+Ox3, euthymic affect Results & Data Results & Data ([facility]) Vital Signs (Past 12 Hours) Vital Signs Temp Pulse Resp BP Pulse Ox 11/12/20 07:17 36.7 C 68 18 120/76 95 11/11/20 23:10 36.6 C 66 17 121/71 97 Laboratory Results 11/12/20 11/11/20 11/11/20 Range/Units 08:17 20:35 17:12 POC Glucose 105 H 102 H 108 H (70-99) mg/dl 11/11/20 Range/Units 12:16 POC Glucose 109 H (70-99) mg/dl PG Care Time/CCT Total # of Minutes Spent Total Time Spent with Patient: Total time spent is greater than 50% in coordination of care (as documented) at patient's floor/unit and/or counseling patient: Coding Level of Care Code 34606 Subseq Hosp Care Lvl 3 Diagnoses Acute hyponatremia E87.1 Acute on chronic diastolic (congestive) heart failure I50.33 Acute UTI N39.0 Hyperkalemia E87.5 Failure to thrive Diabetes mellitus with diabetic polyneuropathy E11.42 Hypothyroid E03.9 Hypothyroidism type: acquired Hypercholesteremia E78.00 Hypertension I10 Asthma J45.20 Asthma complication type: unspecified Asthma persistence: intermittent Asthma severity: mild Paroxysmal a-fib I48.0 Anxiety F41.9 (1) Hypothyroid Hypothyroidism type: acquired Qualified Code(s): E03.9 - Hypothyroidism, unspecified (2) Asthma Asthma complication type: unspecified Asthma persistence: intermittent Asthma severity: mild Qualified Code(s): J45.20 - Mild intermittent asthma, uncomplicated
[2020-11-12] MEDS: traMADol HCL 50 MG TABLET PO SCH ×2 (10:28→20:47)
[2020-11-12] MEDS: POTASSIUM CHLORIDE CRTAB 20 MEQ TABCR PO SCH (10:29)
[2020-11-12] MEDS: LORazepam 0.5 MG TAB PO PRN ×2 (10:29→20:46)
[2020-11-12] MEDS: FUROSEMIDE 40 MG TAB PO SCH ×2 (10:31→20:47)
[2020-11-12] MEDS: MAGNESIUM OXIDE 400 MG TAB PO SCH ×2 (10:31→20:48)
[2020-11-12] MEDS: METOPROLOL SUCC 50MG EXT REL TAB PO SCH ×2 (10:31→20:47)
[2020-11-12] MEDS: CEFDINIR 300 MG CAP PO SCH ×2 (10:31→20:48)
[2020-11-12] MEDS: AMIODARONE 200 MG TAB PO SCH (10:34)
[2020-11-12] MEDS: busPIRone 5 MG TAB PO SCH ×2 (10:34→20:48)
[2020-11-12] MEDS: APIXABAN 5 MG TABLET PO SCH ×2 (10:34→20:47)
[2020-11-12] MEDS: VENLAFAXINE HCL XR 150 MG CAPXR PO SCH (10:35)
[2020-11-12] MEDS: CETIRIZINE HCL 10 MG TABLET PO SCH (10:35)
[2020-11-12] MEDS: THIAMINE HCL 100 MG TAB PO SCH (10:36)
[2020-11-12] MEDS: dilTIAZem HCL 180 MG CAPCR PO SCH (10:36)
[2020-11-12] MEDS: MULTIVITAMIN CHEWABLE TAB PO SCH (10:36)
[2020-11-12] MEDS: FOLIC ACID 1 MG in SYRINGE 9.8 ML IV SCH (10:38)
[2020-11-12] MEDS: INSULIN ASPART 100 UNITS/ML 3 ML PEN SC SCH ×4 (10:40→21:17)
[2020-11-12 12:08] LABS: BUN Creatinine Ratio 15.3 (10-20); Calcium 7.8 mg/dl (8.5-10.1); Creatinine Clr Calc Pharmacy 147.7 ml/min; Est GFR (African American) 123.7 ml/min; Est GFR (Non-African American) 106.7 ml/min; Potassium 3.7 mmol/L (3.5-5.1)
[2020-11-12] MEDS: CYANOCOBALAMIN 500 MCG TABLET (VITAMIN B-12) PO SCH (13:07)
[2020-11-12] MEDS: CHOLECALCIFEROL 1,000 UNITS 25 MCG TAB PO SCH (13:07)
[2020-11-12] MEDS: MONTELUKAST SODIUM 10 MG TABLET PO SCH (20:48)
[2020-11-12] MEDS: ATORVASTATIN 40 MG TAB PO SCH (20:49)
[2020-11-13] MEDS: ACETAMINOPHEN 325 MG TAB PO PRN ×2 (05:14→19:14)
[2020-11-13] MEDS ORDERED: LEVOTHYROXINE SODIUM 137 MCG TABLET PO SCH (06:30)
[2020-11-13 06:57] LABS: Hematocrit (blood only) 24.5 % (37-47); Hemoglobin 7.9 g/dL (12.0-16.0); Mean Corpuscular Hemoglobin 32.8 pg (25-34); Mean Corpuscular Hgb Conc 32.2 g/dL (32-36); Mean Corpuscular Volume 101.7 fL (80-100); Mean Platelet Volume 8.7 fL (7.4-10.4); Platelet Count 252 K/uL (130-400); RDW Coefficient of Variation 15.1 % (11.5-14.5); RDW Standard Deviation 56.3 fL (36.4-46.3); Red Blood Count 2.41 M/uL (4.2-5.4); White Blood Count 5.43 K/uL (4.8-10.8)
[2020-11-13 07:24] LABS: Albumin Level 2.7 gm/dl (3.4-5.0); BUN Creatinine Ratio 17.2 (10-20); Calcium 7.8 mg/dl (8.5-10.1); Creatinine Clr Calc Pharmacy 164.1 ml/min; Est GFR (Non-African American) 110.4 ml/min; Potassium 3.4 mmol/L (3.5-5.1)
--- NOTE | 2020-11-13 08:12 | Hospitalist Progress Note ---
Date of Service November 13, 2020 Assessment & Plan (1) Acute on chronic diastolic (congestive) heart failure: Plan: preserved EF with grade III diastolic dysfunction, biatrial dilation, elevated pulm pressures responded well to Lasix, continue Lasix 40mg PO BID while here could probably be maintained on 40mg daily on discharge once thyroid function normalized (see below) but will continue on 40mg BID for now CHF clinic consulted for follow-up. Case discussed and to be seen today. Net negative 25.7L Continue fluid restriction 1800mL/day Cr stable 96% on 2L -- wean as tolerated Daily weights, I&Os -- weights difficult due to patient physical status Overnight pulse ox --> will need supplementation at night and formal study outpatient (2) Anemia: Plan: Hgb 11.3 on admission -- hx iron deficiency anemia. (Also etoh). Hgb 9 yesterday but dropped to 7.9 which would not be expected with above diuresis LDH wnl Trop <0.015 Iron studies -- iron low normal 45, TIBC 287, Transferrin 226, ferritin 78.9, Transferrin % sat low 14 --> Venofer x 1 today, then place on oral supplementation B12/folate wnl EGD/c-scope Dr Coyle in 2019 unremarkable at that time Check fecal occult -- consult GI if + Also started protonix 40mg daily for PPI proph given abx CBC this afternoon to ensure stability --> if continues to drop would obtain CTAP to look for possible bleed (3) Paroxysmal a-fib: Plan: Patient is currently in rate controlled atrial fibrillation --> was NSR previous day TSH elevated -- had been taking 100mcg Synthroid at home instead of 125mcg dose --> changed back to 125mcg and encouraged compliance and repeat TFT in 4 weeks outpatient EKG this morning afib rate controlled -- see anemia above. also replacement of mag as below Continue on metoprolol and amiodarone, will continue these for now Anticoagulated with Eliquis -- may need to hold if further bleeding (got dose this morning) (4) Hypomagnesemia: Plan: checked given feeling poor, low K, afib on EKG Mag low at 1.2 --> IV replacement ordered Monitor on repeat labs (5) Acute hyponatremia: Plan: With significant edema, question of malnutrition/"tea and toast" syndrome, possible worsening diastolic heart failure great response to Lasix, negative 21.9L liters total continue Lasix 40mg PO BID, great UO via medel --> discussed possible 1x/daily dosing and prn dose based on edema vs BID and then prn for edema once thyroid back in normal limits Will continue to monitor response --> almost euvolemic Na is 133 low serum osm with lower urine osm on admission suggesting excessive free water, volume overload Continue fluid restriction *Also of note, patient on tramadol which can cause hyponatremia as well TSH also elevated to 7.08 in patient on replacement --> increased from 125mcg to 137mcg daily although there were some reports of her taking 100mcg tablets prior to admission as well and so we will continue back wth the 125mcg dosing and encourage compliance as well as rec repeat TFT 4 weeks outpatient for further adjustment as needed appreciate recommendations from Dr Jaramillo, nephrology signed off, agreed with daily Lasix on discharge --> He also started on B1 supplementation for hx alcohol use -- reported 3x vodka seltzer/day NURSE SUBSTANCE ABUSE B12/folate wnl (6) Acute UTI: Plan: urine culture with Klebsiella continue Rocephin for now, change to PO Cefdinir 300mg BID complete 7 days total (on day 6 of treatment) (7) Hyperkalemia: Plan: K came down with Lasix Lasix 40mg BID, give Pot Chloride 20mEq daily (additional 20meq this AM for K 3.4 along with Mag 1.2) BMP in AM (8) Failure to thrive: Plan: Likely multifactorial, consider malnutrition, edema as documented, hypothyroidism, morbid obesity, and chronic deconditioning PT/OT evaluation Agree with patient that she likely will require placement upon discharge, she would like to go to rehab --> bed available at [facility] (9) Diabetes mellitus with diabetic polyneuropathy: Plan: sliding scale insulin Diabetic diet, monitor for hypoglycemia, no episodes (10) Hypothyroid: Plan: Patient is on 125 mcg of levothyroxine NURSE SUBSTANCE ABUSE -- admitted to taking 100mcg tablets recently Initially increased to 137mcg but will continue 125mcg daily and repeat in 4 weeks for further adjustments (11) Hypercholesteremia: Plan: Atorvastatin 40 mg daily (12) Hypertension: Plan: Blood pressure currently stable on current medications, will continue Continue diltiazem 360mg daily, metoprolol succinate 100mg BID Lasix 40mg BID as above for diuresis BP stable Continue to monitor (13) Asthma: Plan: O2 support as ordered. She is on rescue albuterol inhaler Also obtaining overnight pulse ox for likely underlying sleep apnea +++-- will need formal outpt sleep study pending pulse ox overnight --> Will need communicated to [facility] to arrange at follow up (14) Anxiety: Plan: takes Ativan 1mg BID at home, requesting something mid day, having a lot more anxiety, worried about going to SNF will add 0.5mg PO PRN --> increased to TID prn Plan: PT/OT as noted above -- [facility] to have bed tomorrow, however patient will need to continue inpatient stay for evaluation of anemia and continued diuresis Admission and Anticipated Discharge Date Admission Date: November 06, 2020 Supervising Physician Co-Signing Physician Notes BALTAZAR Supervision Note: I did not personally see or examine the patient today, but I verified all vega points of BALTAZAR Murray's assessment and plan with the following exceptions/additions: Hgb further drop this afternoon and CT abd/pel revealed hematoma rigth lower chest wall. This is source of acute blood loss anemia Hold Eliquis for now Follow CBC and transfuse as needed Subjective Patient evaluated this morning. Had been feeling pretty fatigued and whipped out this morning when she first woke up. General pallor noted. Had some what felt like chest tightness but has since resolved. EKG back in afib but rate controlled -- she notes she felt it irregular/skipped beats, but it wasn't fast like in the past when rates were in the 160-180s. Discussed trop <0.015, EKG with afib rates in 70s. Mag low at 1.2. She notes hx iron deficiency anemia and had EGD/c-scope 2 years ago which was unremarkable at that time. Discussed checking fecal occult and if positive will consult GI. If repeat cbc this afternoon dropped lower would obtain abdominal imaging. No fever, chills, further chest discomfort, abdominal pain, nausea, vomiting, hematochezia, melena, hematemesis, hematuria. She notes prior nose bleed while on Xarelto in past x 2 hours and needing blood during prior admission but has not had any issues while being on Eliquis. To alert RN if any repeat cp/sob or elevated HR and would move to telemetry but will continue current course for now. Patient agreeable to plan. Questions/concerns addressed at this time. Review of Systems Review of Systems: All systems reviewed & are unremarkable except as noted in HPI & below Physical Exam Constitutional: well developed, + obese and comfortable; no acute distress +general pallor Eyes: + anicteric sclerae and PERRL ENMT: Mouth: + poor dentition Neck: trachea midline, no thyromegaly Respiratory: normal respiratory effort; no respiratory distress, no labored breathing and no cough Auscultation: + diminished lung sounds and + wheezes (faint wheezing posterior lung duvall) Cardiovascular: Rate/Rhythm: + irregularly irregular Heart Sounds: normal S1 and normal S2; no murmur Extremities: normal capillary refill and + edema (1+ Decreased b/l) Gastrointestinal (Abdomen): normal bowel sounds, soft, nontender, no hepatosplenomegaly Musculoskeletal: Head/Neck/Chest: normocephalic, head atraumatic and neck supple Extremities: + abnormal strength; no cyanosis, no clubbing and no petechiae Knee: + knee abnormal to inspection (right knee bruise laterally, incision from prior TKA) Skin: + crusts, + dry skin and + erythema healing bruising to RUE, no obvious hematoma/bleeding appreciated multiple amputations to toes noted Neurologic: CN's II-XI intact bilaterally, moves all extremities and awake; no focal motor deficits +abn strength b/l LE (chronic) Psychiatric: A+Ox3, euthymic affect Genitourinary: medel draining yellow urine Results & Data Results & Data ([facility]) Vital Signs (Past 12 Hours) Vital Signs Temp Pulse Pulse Pulse Resp BP Pulse Ox 11/13/20 07:53 36.8 C 64 18 125/75 96 11/13/20 03:10 73 11/13/20 00:05 84 80 11/12/20 22:35 36.7 C 71 16 121/74 91 11/12/20 22:16 66 11/12/20 21:15 80 11/12/20 20:44 72 107/67 91 Pulse Ox Pulse Ox 11/13/20 07:53 11/13/20 03:10 96 11/13/20 00:05 90 84 L 11/12/20 22:35 11/12/20 22:16 93 11/12/20 21:15 95 11/12/20 20:44 Laboratory Results 11/13/20 11/13/20 11/13/20 Range/Units 08:32 08:32 08:32 WBC (4.8-10.8) K/uL RBC (4.2-5.4) M/uL Hgb (12.0-16.0) g/dL Hct (37-47) % MCV (80-100) fL MCH (25-34) pg MCHC (32-36) g/dL RDW Std Deviation (36.4-46.3) fL RDW Coeff of Yazmin (11.5-14.5) % Plt Count (130-400) K/uL MPV (7.4-10.4) fL Sodium (136-145) mmol/L Potassium (3.5-5.1) mmol/L Chloride (98-107) mmol/L Carbon Dioxide (21-32) mmol/L Anion Gap (3-11) BUN (7-18) mg/dl Creatinine (0.6-1.2) mg/dl Est Cr Clr Drug Dosing ml/min Est GFR ( Amer) ml/min Est GFR (Non-Af Amer) ml/min BUN/Creatinine Ratio (10-20) Glucose (70-99) mg/dl POC Glucose (70-99) mg/dl Calcium (8.5-10.1) mg/dl Magnesium 1.2 L (1.8-2.4) mg/dl Iron 45 (35-150) mcg/dl TIBC 287 (250-450) mcg/dl Transferrin 226 (200-360) mg/dl Transferrin % Sat 14 L (15-50) % Ferritin 78.9 (8-388) ng/ml Lactate Dehydrogenase 145 (84-246) U/L Troponin I < 0.015 (0-0.045) ng/ml Albumin (3.4-5.0) gm/dl Vitamin B12 659 (193-986) pg/ml Folate 18.00 (>5.38) ng/ml 11/13/20 11/13/20 11/13/20 Range/Units 08:07 06:46 06:46 WBC 5.43 (4.8-10.8) K/uL RBC 2.41 L (4.2-5.4) M/uL Hgb 7.9 L (12.0-16.0) g/dL Hct 24.5 L (37-47) % MCV 101.7 H (80-100) fL MCH 32.8 (25-34) pg MCHC 32.2 (32-36) g/dL RDW Std Deviation 56.3 H (36.4-46.3) fL RDW Coeff of Yazmin 15.1 H (11.5-14.5) % Plt Count 252 (130-400) K/uL MPV 8.7 (7.4-10.4) fL Sodium 133 L (136-145) mmol/L Potassium 3.4 L (3.5-5.1) mmol/L Chloride 98 (98-107) mmol/L Carbon Dioxide 30 (21-32) mmol/L Anion Gap 5.0 (3-11) BUN 8 (7-18) mg/dl Creatinine 0.45 L (0.6-1.2) mg/dl Est Cr Clr Drug Dosing 164.1 ml/min Est GFR ( Amer) 128.0 ml/min Est GFR (Non-Af Amer) 110.4 ml/min BUN/Creatinine Ratio 17.2 (10-20) Glucose 90 (70-99) mg/dl POC Glucose 108 H (70-99) mg/dl Calcium 7.8 L (8.5-10.1) mg/dl Magnesium (1.8-2.4) mg/dl Iron (35-150) mcg/dl TIBC (250-450) mcg/dl Transferrin (200-360) mg/dl Transferrin % Sat (15-50) % Ferritin (8-388) ng/ml Lactate Dehydrogenase (84-246) U/L Troponin I (0-0.045) ng/ml Albumin 2.7 L (3.4-5.0) gm/dl Vitamin B12 (193-986) pg/ml Folate (>5.38) ng/ml 11/12/20 11/12/20 11/12/20 Range/Units 20:45 17:15 12:19 WBC (4.8-10.8) K/uL RBC (4.2-5.4) M/uL Hgb (12.0-16.0) g/dL Hct (37-47) % MCV (80-100) fL MCH (25-34) pg MCHC (32-36) g/dL RDW Std Deviation (36.4-46.3) fL RDW Coeff of Yazmin (11.5-14.5) % Plt Count (130-400) K/uL MPV (7.4-10.4) fL Sodium (136-145) mmol/L Potassium (3.5-5.1) mmol/L Chloride (98-107) mmol/L Carbon Dioxide (21-32) mmol/L Anion Gap (3-11) BUN (7-18) mg/dl Creatinine (0.6-1.2) mg/dl Est Cr Clr Drug Dosing ml/min Est GFR ( Amer) ml/min Est GFR (Non-Af Amer) ml/min BUN/Creatinine Ratio (10-20) Glucose (70-99) mg/dl POC Glucose 108 H 104 H 118 H (70-99) mg/dl Calcium (8.5-10.1) mg/dl Magnesium (1.8-2.4) mg/dl Iron (35-150) mcg/dl TIBC (250-450) mcg/dl Transferrin (200-360) mg/dl Transferrin % Sat (15-50) % Ferritin (8-388) ng/ml Lactate Dehydrogenase (84-246) U/L Troponin I (0-0.045) ng/ml Albumin (3.4-5.0) gm/dl Vitamin B12 (193-986) pg/ml Folate (>5.38) ng/ml 11/12/20 Range/Units 11:29 WBC (4.8-10.8) K/uL RBC (4.2-5.4) M/uL Hgb (12.0-16.0) g/dL Hct (37-47) % MCV (80-100) fL MCH (25-34) pg MCHC (32-36) g/dL RDW Std Deviation (36.4-46.3) fL RDW Coeff of Yazmin (11.5-14.5) % Plt Count (130-400) K/uL MPV (7.4-10.4) fL Sodium 133 L (136-145) mmol/L Potassium 3.7 (3.5-5.1) mmol/L Chloride 97 L (98-107) mmol/L Carbon Dioxide 29 (21-32) mmol/L Anion Gap 7.0 (3-11) BUN 8 (7-18) mg/dl Creatinine 0.50 L (0.6-1.2) mg/dl Est Cr Clr Drug Dosing 147.7 ml/min Est GFR ( Amer) 123.7 ml/min Est GFR (Non-Af Amer) 106.7 ml/min BUN/Creatinine Ratio 15.3 (10-20) Glucose 104 H (70-99) mg/dl POC Glucose (70-99) mg/dl Calcium 7.8 L (8.5-10.1) mg/dl Magnesium (1.8-2.4) mg/dl Iron (35-150) mcg/dl TIBC (250-450) mcg/dl Transferrin (200-360) mg/dl Transferrin % Sat (15-50) % Ferritin (8-388) ng/ml Lactate Dehydrogenase (84-246) U/L Troponin I (0-0.045) ng/ml Albumin (3.4-5.0) gm/dl Vitamin B12 (193-986) pg/ml Folate (>5.38) ng/ml PG Care Time/CCT Total # of Minutes Spent Total Time Spent with Patient: Total time spent is greater than 50% in coordination of care (as documented) at patient's floor/unit and/or counseling patient: Coding Level of Care Code 69117 Subseq Hosp Care Lvl 3 Diagnoses Acute hyponatremia E87.1 Acute on chronic diastolic (congestive) heart failure I50.33 Acute UTI N39.0 Hyperkalemia E87.5 Failure to thrive Diabetes mellitus with diabetic polyneuropathy E11.42 Hypothyroid E03.9 Hypothyroidism type: acquired Hypercholesteremia E78.00 Hypertension I10 Asthma J45.20 Asthma complication type: unspecified Asthma persistence: intermittent Asthma severity: mild Paroxysmal a-fib I48.0 Anxiety F41.9 Anemia D64.9 Hypomagnesemia E83.42 (1) Hypothyroid Hypothyroidism type: acquired Qualified Code(s): E03.9 - Hypothyroidism, unspecified (2) Asthma Asthma complication type: unspecified Asthma persistence: intermittent Asthma severity: mild Qualified Code(s): J45.20 - Mild intermittent asthma, uncomplicated
[2020-11-13] MEDS ORDERED: POTASSIUM CHLORIDE CRTAB 20 MEQ TABCR PO STA (08:15)
[2020-11-13 09:23] LABS: Ferritin 78.9 ng/ml (8-388); Iron 45 mcg/dl (35-150); Magnesium 1.2 mg/dl (1.8-2.4); Total Iron Binding Capacity 287 mcg/dl (250-450); Transferrin 226 mg/dl (200-360); Transferrin Percent Saturation 14 % (15-50); Troponin I < 0.015 ng/ml (0-0.045)
[2020-11-13] MEDS ORDERED: IRON SUCROSE 300 MG in SODIUM CHLORIDE 0.9% 250 ML IV ONE (09:25)
[2020-11-13] MEDS: CEFDINIR 300 MG CAP PO SCH ×2 (09:30→20:35)
[2020-11-13] MEDS: MAGNESIUM OXIDE 400 MG TAB PO SCH ×2 (09:30→20:35)
[2020-11-13] MEDS: busPIRone 5 MG TAB PO SCH ×2 (09:31→20:35)
[2020-11-13] MEDS: APIXABAN 5 MG TABLET PO SCH (09:31)
[2020-11-13] MEDS: FUROSEMIDE 40 MG TAB PO SCH ×2 (09:31→20:36)
[2020-11-13] MEDS: THIAMINE HCL 100 MG TAB PO SCH (09:32)
[2020-11-13] MEDS: VENLAFAXINE HCL XR 150 MG CAPXR PO SCH (09:32)
[2020-11-13] MEDS: MULTIVITAMIN CHEWABLE TAB PO SCH (09:32)
[2020-11-13] MEDS: CETIRIZINE HCL 10 MG TABLET PO SCH (09:33)
[2020-11-13] MEDS: dilTIAZem HCL 180 MG CAPCR PO SCH (09:33)
[2020-11-13] MEDS: FOLIC ACID 1 MG in SYRINGE 9.8 ML IV SCH (09:34)
[2020-11-13] MEDS: AMIODARONE 200 MG TAB PO SCH (09:34)
[2020-11-13] MEDS: METOPROLOL SUCC 50MG EXT REL TAB PO SCH ×2 (09:37→22:26)
[2020-11-13] MEDS: INSULIN ASPART 100 UNITS/ML 3 ML PEN SC SCH ×4 (09:40→20:36)
--- NOTE | 2020-11-13 09:48 | XRay Report ---
SINGLE VIEW CHEST CLINICAL HISTORY: Chest discomfort. FINDINGS: An AP, portable, upright chest radiograph is compared to study dated 11/06/2020. Correlation is made with chest CT dated 02/02/2018. The heart is enlarged. There is pulmonary vascular congestion . Atelectasis is seen at the lung bases. No airspace consolidation or large pleural effusion is ident ified. No pneumothorax is seen. The skeletal structures are osteopenic. The bony thorax is grossly in tact. IMPRESSION: 1. Cardiomegaly with pulmonary vascular congestion. 2. No airspace consolidation or large pleural effusion is identified. ACT 112: Negative or not required by law. Electronically signed by: Mitch Stone M.D. 11/13/2020 9:46 AM
[2020-11-13] MEDS: traMADol HCL 50 MG TABLET PO SCH ×2 (09:52→20:35)
[2020-11-13] MEDS: POTASSIUM CHLORIDE CRTAB 20 MEQ TABCR PO SCH (09:52)
[2020-11-13] MEDS: LORazepam 0.5 MG TAB PO PRN ×2 (09:52→20:40)
[2020-11-13] MEDS: PANTOprazole 40 MG TAB PO SCH (09:53)
[2020-11-13] MEDS ORDERED: MAGNESIUM SULFATE / D5W 1 GM/100 ML BAG IV ONE (10:00)
[2020-11-13] MEDS: CHOLECALCIFEROL 1,000 UNITS 25 MCG TAB PO SCH (11:38)
[2020-11-13] MEDS: CYANOCOBALAMIN 500 MCG TABLET (VITAMIN B-12) PO SCH (11:38)
[2020-11-13 12:07] LABS: Hematocrit (blood only) 22.6 % (37-47); Hemoglobin 7.3 g/dL (12.0-16.0); Mean Corpuscular Hemoglobin 32.7 pg (25-34); Mean Corpuscular Hgb Conc 32.3 g/dL (32-36); Mean Corpuscular Volume 101.3 fL (80-100); Mean Platelet Volume 8.7 fL (7.4-10.4); Platelet Count 261 K/uL (130-400); RDW Coefficient of Variation 15.2 % (11.5-14.5); RDW Standard Deviation 55.4 fL (36.4-46.3); Red Blood Count 2.23 M/uL (4.2-5.4); White Blood Count 6.05 K/uL (4.8-10.8)
[2020-11-13] MEDS ORDERED: OPTIRAY 320 100ml IV ONE (13:35)
[2020-11-13] MEDS: MAGNESIUM SULFATE / D5W 1 GM/100 ML BAG IV SCH ×3 (13:46→17:42)
--- NOTE | 2020-11-13 14:11 | CT Scan Report ---
CT abd pelvis IV con only CLINICAL HISTORY: anemia, drop in hgb COMPARISON STUDY: November 08, 2019 TECHNIQUE: A dose lowering technique was utilized adhering to the principles of ALARA. CT DOSE: 1409.52 mGy.cm FINDINGS: Limited exam due to beam hardening artifact from patient's body habitus Lower chest: Small atelectasis at dependent portions of bilateral lower lobes. Trace right pleural ef fusion.. Liver: The contrast-enhanced liver is normal in size, contour, and attenuation. There is no intrahepa tic biliary ductal dilatation. The hepatic veins and portal veins are patent. Gallbladder: Is partially collapsed. Spleen: Normal in size and attenuation. Pancreas: Unremarkable. Adrenal glands: Unremarkable. Kidneys: There is symmetric renal cortical enhancement. The kidneys are normal in size without hydron ephrosis. Pelvic viscera: Urinary bladder is decompressed with Cordero balloon which limits evaluation. Calcified uterine lesions, likely represent fibroids are seen, largest is measured 3.7 cm in size and unchange d since prior. Bowel: Loops of small bowel are nondilated. Colonic loops are nondilated and extensively filled with stool. Appendix is not well seen. Peritoneum: No free intraperitoneal gas is seen. Diffuse mesenteric edema is more prominent since eloy or study. No definite ascites is seen. Vasculature: Abdominal aorta is normal in caliber, tortuous with scattered calcifications of its wall . Adenopathy: A few retroperitoneal lymph nodes are seen, measuring less than 1 cm in short axis, nonpa thological by CT size criteria. Skeletal structures: Diffuse osteopenia. Multilevel degenerative changes of the spine. Interval devel opment of compression fracture deformity of L3 and 5 mm retropulsion of the posterior fractured fragm ent toward central canal. Diffuse soft tissue edema is again seen. Focal areas of increase attenuation are partially visualized within right chest wall (3/1), largest i s measuring 5.2 x 4.2 cm in size, might represent subcutaneous/soft tissue hematoma. IMPRESSION: 1. Partially visualized hypoattenuating lesion within soft tissue overlying right inferior chest wal l might represent hematoma. Please correlate above-mentioned findings with direct inspection and poss ible ultrasound or CT of the chest. 2. Interval development of compression fracture deformity of L3 with 5 mm retropulsion of the parts inspector ior fractured fragment to the central canal. Please correlate above-mentioned findings with clinical presentation of back pain. Further evaluation with MRI of the lumbar spine might be considered. 3. Diffuse soft tissue edema is again seen. Mild interval prominence of peritoneal edema. No definit e ascites is seen. 4. Small right pleural effusion. Compressive atelectasis at dependent portions of bilateral lower lo bes. 5. Loops of large bowel with extensive stool content. 6. The rest of findings as above. ACT 112: Negative or not required by law. The above report was generated using voice recognition software. It may contain grammatical, syntax o r spelling errors. Electronically signed by: Milly Sanchez DO 11/13/2020 2:09 PM
--- NOTE | 2020-11-13 15:11 | Heart Failure Consultation ---
Date of Consultation November 13, 2020 Assessment & Plan (1) Acute on chronic diastolic (congestive) heart failure: (2) Hyponatremia: (3) Failure to thrive: (4) Alcohol use: (5) VALERIE (obstructive sleep apnea): (6) Paroxysmal a-fib: Patient is known to me from her previous orthopedic experience. We discussed the nature of heart failure and the goals of the program. I think she would greatly benefit from the program. She is agreeable to ongoing participation. Patient is planning to discharge to [facility]. Will plan to continue collaborative management of her volume status while she is there. May need to consider jail placement given her recent decline, condition of her home, and nonadherence. She has had an excellent response to diuretic treatment. Continue 40 mg BID as long as creatinine stable. Would recommend Lasix 40 mg daily on discharge. If she is gaining weight or symptoms worsen, would resume 40 mg twice daily. Kidney function remains stable. Potassium levels are slightly low today. Could also consider adding Spironolactone on discharge. Sodium levels have improved. Continue fluid restriction upon discharge. Daily weights. Standing if possible. Would like to attempt at least one standing weight before discharge to determine a baseline weight for her. Low sodium diet. Strict I&Os while inpatient. Disposition: Will continue to follow along during hospitalization. Heart failure follow up scheduled for 11/20/20 at 1400. History of Present Illness Attending Physician: Nicky Vaughn MD History of Present Illness 60-year-old female with past medical history of type 2 diabetes mellitus with polyneuropathy, morbid obesity, hypothyroidism, sleep apnea, chronic diastolic CHF, atrial fibrillation, anemia, VALERIE/OHS, chronic hyponatremia, osteomyelitis, chronic right TKA infection on suppressive antibiotics, and hypertension. Dr. Martinez is her primary preschool principal. Recent cardiac studies: 1. 11/07/20 Echo: Normal LV size and function. EF 60-65%. No RWMA. Mild concentric LVH. RV not well visualized. Severe biatrial dilation. Mild MR. Moderate TR. Mild pulmonary hypertension. RVSP 42 mmHg. In fall of 2019 patient had a fall and suffered left femur fracture status post troch nail. She has had prolonged recovery. She was in a nursing facility for several months and [facility] for 1 month. She returned home in June and home health ended in July. Her functional status has unfortunately declined significantly since that time. She is sedentary and struggling to keep up with general ADLs, including preparing meals independently. She admittedly consumes a lot of processed foods. She is mostly wheelchair bound due to leg pain and weakness. She has O2 at home but rarely uses it. She misses doses of medication. Patient is currently admitted after a fall at home. On presentation she was tachypneic and with moderate respiratory effort. Chest x-ray shows a failure pattern without focal consolidations or pneumothorax. The patient was also administered IV Lasix. ECG was performed showing a atrial fibrillation. Patient was hyponatremic at 115. Potassium is 5.4. Magnesium is 1.4. Troponin was normal. BNP was elevated at 4032. Echocardiogram with preserved EF. Hyponatremia likely secondary to volume overload/excessive free water. Nephrology is on board. She was initiated on IV Lasix then converted to 40 mg PO BID with excellent response. Patient reports she's feeling significantly improved. Her edema, abdominal distention and dyspnea are consistent with her typical baseline. She remains deconditioned. Hgb drop today, 7.3. Likely from right chest wall hematoma. She denies cough, orthopnea, or PND. She's net negative 25 L this admission. Weight is trending down-- 324 lb - 247 lb ? She's had several 20+ lb drops overnight, question accuracy of bed weights ? SocHx: Patient lives alone in a 2 story apartment. She is functional on 1 level. She has been essentially non ambulatory since her ORIF. She is able to do transfers at home. She drinks at least 3 alcoholic drinks per day. She is a former smoker. Allergies Allergy/AdvReac Type Severity Reaction Status Date / Time Penicillins Allergy Unknown UNKNOWN Verified 11/06/20 08:56 bacitracin Allergy Unknown Verified 11/06/20 08:56 [From Neosporin ([id number])] neomycin Allergy Unknown Verified 11/06/20 08:56 [From Neosporin ([id number])] polymyxin B Allergy Unknown Verified 11/06/20 08:56 [From Neosporin ([id number])] Home Medications Medication Instructions Recorded Confirmed Type cholecalciferol (vitamin D3) 25 1,000 units PO 1200 12/24/17 11/06/20 History mcg (1,000 unit) capsule cyanocobalamin (vitamin B-12) 1,000 mcg PO 1200 12/24/17 11/06/20 History 1,000 mcg capsule magnesium oxide 400 mg PO TIDM cap 09/28/18 11/06/20 History albuterol sulfate 90 mcg/actuation 2 puffs INHALATION Q4H PRN 09/26/19 11/06/20 History aerosol inhaler atorvastatin 40 mg tablet 40 mg PO QPM #90 tab 10/11/19 11/06/20 Rx acetaminophen 325 mg tablet 650 mg PO Q4H PRN #1 tab 11/12/19 11/06/20 Rx apixaban 5 mg tablet (Eliquis) 5 mg PO BID #180 tab 02/13/20 11/06/20 Rx foam bandage 8" X 7" (Aquacel Foam) #5 ea 03/29/20 Rx blood sugar diagnostic (OneTouch #100 ea 07/16/20 Rx Verio test strips) blood-glucose meter (OneTouch #1 ea 07/16/20 Rx Verio Meter) lancets (OneTouch UltraSoft #200 ea 07/16/20 Rx Lancets) sulfamethoxazole 800 1 tab PO BID #60 tab 08/03/20 11/06/20 Rx mg-trimethoprim 160 mg tablet (Bactrim DS) levothyroxine 125 mcg tablet 125 mcg PO DAILY #30 tab 08/06/20 11/06/20 Rx buspirone 10 mg tablet 10 mg PO BID #60 tab 09/24/20 11/06/20 Rx venlafaxine 150 mg 150 mg PO QAM #30 cap 09/24/20 11/06/20 Rx capsule,extended release 24 hr amiodarone 200 mg tablet 200 mg PO QAM #30 tab 09/25/20 11/06/20 Rx diltiazem HCl 360 mg 360 mg PO DAILY #30 cap 10/17/20 11/06/20 Rx capsule,extended release 24 hr metoprolol succinate 100 mg 100 mg PO BID #60 tab 10/19/20 11/06/20 Rx tablet,extended release 24 hr lorazepam 0.5 mg tablet 0.5 mg PO BID PRN #60 tab 10/26/20 11/06/20 Rx tramadol 50 mg tablet 50 mg PO BID #60 tab 10/26/20 11/06/20 Rx metformin 1,000 mg tablet 1,000 mg PO BIDM 11/06/20 11/06/20 History montelukast 10 mg tablet 10 mg PO HS 11/06/20 11/06/20 History Patient History Medical History Acquired claw toe of left foot Acquired hallux valgus of right foot Acquired hammer toe of right foot Acute renal failure "FROM A FALL." RESOLVED Anxiety Arterial hemorrhage PT CANNOT RECALL Asthma RES INH USE DAILY/ NOT WELL CONTROLLED DURING ALLERGY SEASON Cellulitis of third toe, left Depression Diabetes mellitus with diabetic polyneuropathy Diabetic foot infection (08/25/13) BILAT> BOTH RESOLVED History of amputation of left great toe History of cardioversion X2. LAST ONE APPROX 2014 Hypercholesteremia Hypertension Hypothyroidism Morbid obesity Osteoarthritis Osteomyelitis OF A TOE LEFT FOOT Paroxysmal a-fib ON ELIQUIS. S/P FAILED CARDIOVERSIONS X2. PER CARDIO NOT A CANDIDATE FOR ABLATION. RATE HAS BEEN DIFFICULT TO CONTROL AT TIMES, BUT PER MOST RECENT CARDIO NOTE 09/2019, RATE IMPROVED WITH ADDITION OF DILTIAZEM. PT IS ASYMPTOMATIC. Patellar fracture Sleep apnea NO CPAP Surgical History History of amputation of lesser toe of left foot History of amputation of lesser toe of right foot History of colonoscopy History of dilatation and curettage History of esophagogastroduodenoscopy (EGD) History of right knee surgery REPLACEMENT > ON BACTRIM FOR INFECTED HARDWARE. SURGERY PENDING APPROX 6 MOS Family History Sister Breast cancer Father Diabetes Hypertension Other Family history non-contributory Heart disease Social History Smoking Status: Former smoker Number of Years Since Quit: 5; Second Hand Exposure: No; Hx Alcohol Use: Yes Alcohol type: wine and hard liquor Hx Substance Use: No Preferred Language: [place] Communication Ability: Effective Quartz Orientator Required: No Beliefs That Will Affect Care: None marital status: Single Current Living Situation: Alone Other Information That Helps Us Care for You: No Feels Safe at Home: No Is there a partner from a previous relationship who is making you feel unsafe now?: No Any Concerns about Your Family Situation: No Would You Like to Speak to Someone About Your Situation: Yes (afraid of falling, unable to care for self) Assistive Devices: Oxygen - at Night Physical Exam Physical Exam: Constitutional: Alert, oriented, in no acute distress. Morbidly obese. HEENT: Head is atraumatic and normocephalic. EOMs intact. Sclera anicteric. Face is symmetric. No perioral cyanosis. Mucous membranes moist. Neck: Supple, no JVD but difficult exam. Pulmonary: Normal respiratory effort, diminished breath sounds otherwise clear to auscultation bilaterally Cardiac: Irregular rate and rhythm. Normal S1 and S2, no gallops, no rubs, no murmurs Extremities: 2+ radial pulses bilaterally. 2+ posterior tibialis pulses bilaterally. 1+ pitting edema. No cyanosis or clubbing. Multiple toe amputations. Abdomen: Normal bowel sounds, soft, non-tender, no abdominal mass palpated Skin: Normal skin color, turgor, and pigmentation, no rash, Neurological: Patient is awake, alert, and oriented. Pleasant and cooperative. Answers questions appropriately. Speech is clear. Normal movement in all 4 extremities. Results & Data ([facility]) Vital Signs (Past 12 Hours) Vital Signs Temp Pulse Pulse Pulse Resp BP Pulse Ox 11/13/20 11:35 66 113/71 11/13/20 07:53 98.2 F 64 18 125/75 96 11/13/20 03:10 73 Pulse Ox 11/13/20 11:35 11/13/20 07:53 11/13/20 03:10 96 Heart Failure Data/Metrics Heart Failure Type: Diastolic Ejection Fraction: 60-65% Evidenced Based Beta Kinza Therapy Beta Kinza Therapy: Not Indicated SANTI/ARB/ARNI Therapy SANTI/ARB/ARNI Therapy: Not Indicated Aldosterone Antagonist Therapy Aldosterone Antagonist Therapy: Not Indicated Coding Level of Care Code 95898 Initial Inpt Care Lvl 3 Diagnoses Acute on chronic diastolic (congestive) heart failure I50.33 Hyponatremia E87.1 Failure to thrive Alcohol use Z78.9 VALERIE (obstructive sleep apnea) G47.33 Paroxysmal a-fib I48.0
--- NOTE | 2020-11-13 15:28 | Electrocardiogram Report ---
Test Reason : Blood Pressure : / mmHG Vent. Rate : 072 BPM Atrial Rate : 073 BPM P-R Int : 000 ms QRS Dur : 088 ms QT Int : 434 ms P-R-T Axes : 000 078 -01 degrees QTc Int : 475 ms Atrial fibrillation Nonspecific ST abnormality Abnormal ECG When compared with ECG of 08-NOV-2020 06:34, No significant change was found Confirmed by Ignacio Becker ([id number]) on 11/13/2020 3:28:21 PM Referred By: REFERRED SELF Confirmed By:Tico Becker
[2020-11-13] MEDS: MONTELUKAST SODIUM 10 MG TABLET PO SCH (20:35)
[2020-11-13] MEDS: ATORVASTATIN 40 MG TAB PO SCH (20:36)
[2020-11-14 05:45] LABS: Hemoglobin 7.5 g/dL (12.0-16.0); Mean Corpuscular Hgb Conc 32.6 g/dL (32-36); Mean Corpuscular Volume 101.3 fL (80-100); Mean Platelet Volume 8.8 fL (7.4-10.4); Platelet Count 292 K/uL (130-400); RDW Coefficient of Variation 15.3 % (11.5-14.5); RDW Standard Deviation 55.8 fL (36.4-46.3); Red Blood Count 2.27 M/uL (4.2-5.4); White Blood Count 4.97 K/uL (4.8-10.8)
[2020-11-14] MEDS: LEVOTHYROXINE SODIUM 125 MCG TABLET PO SCH (05:53)
[2020-11-14] MEDS: ACETAMINOPHEN 325 MG TAB PO PRN (05:54)
[2020-11-14 06:10] LABS: Albumin Level 2.8 gm/dl (3.4-5.0); BUN Creatinine Ratio 18.7 (10-20); Calcium 8.3 mg/dl (8.5-10.1); Creatinine Clr Calc Pharmacy 157.9 ml/min; Est GFR (African American) 130.9 ml/min; Potassium 3.7 mmol/L (3.5-5.1)
[2020-11-14 06:13] LABS: Albumin Globulin Ratio 0.8 (0.9-2); Bilirubin,Total 0.9 mg/dl (0.2-1); Globulin 3.6 gm/dl (2.5-4.0); Total Protein 6.4 gm/dl (6.4-8.2)
[2020-11-14] MEDS ORDERED: IRON SUCROSE 300 MG in SODIUM CHLORIDE 0.9% 250 ML IV ONE (08:00)
[2020-11-14] MEDS: FOLIC ACID 1 MG in SYRINGE 9.8 ML IV SCH (08:14)
[2020-11-14] MEDS: MULTIVITAMIN CHEWABLE TAB PO SCH (08:28)
[2020-11-14] MEDS: PANTOprazole 40 MG TAB PO SCH (08:28)
[2020-11-14] MEDS: CETIRIZINE HCL 10 MG TABLET PO SCH (08:29)
[2020-11-14] MEDS: THIAMINE HCL 100 MG TAB PO SCH (08:29)
[2020-11-14] MEDS: dilTIAZem HCL 180 MG CAPCR PO SCH (08:29)
[2020-11-14] MEDS: VENLAFAXINE HCL XR 150 MG CAPXR PO SCH (08:29)
[2020-11-14] MEDS: busPIRone 5 MG TAB PO SCH ×2 (08:30→21:13)
[2020-11-14] MEDS: CEFDINIR 300 MG CAP PO SCH ×2 (08:30→21:13)
[2020-11-14] MEDS: AMIODARONE 200 MG TAB PO SCH (08:30)
[2020-11-14] MEDS: METOPROLOL SUCC 50MG EXT REL TAB PO SCH ×2 (08:30→21:17)
[2020-11-14] MEDS: MAGNESIUM OXIDE 400 MG TAB PO SCH ×2 (08:31→21:15)
[2020-11-14] MEDS: FUROSEMIDE 40 MG TAB PO SCH ×2 (08:31→21:14)
--- NOTE | 2020-11-14 08:36 | Hospitalist Progress Note ---
Date of Service November 14, 2020 Assessment & Plan (1) Acute on chronic diastolic (congestive) heart failure: Plan: preserved EF with grade III diastolic dysfunction, biatrial dilation, elevated pulm pressures responded well to Lasix IV , now on PO as below Continue Lasix 40mg PO BID while here CHF clinic consulted for follow-up Net negative 29.6.7L Continue fluid restriction 1800mL/day Wt 93.6kg (reported 151.kg on admit but suspect inaccurate) Cr stable 94% on RA Daily weights, I&Os -- weights difficult due to patient physical status Overnight pulse ox --> will need supplementation at night and formal study outpatient (2) Anemia: Plan: Hgb 11.3 on admission -- hx iron deficiency anemia. (Also etoh). Hgb 9 yesterday but dropped to 7.9 which would not be expected with above diuresis LDH wnl Trop <0.015 x2 Iron studies -- iron low normal 45, TIBC 287, Transferrin 226, ferritin 78.9, Transferrin % sat low 14 --> Venofer x 1 and repeated again today 11/14, third dose for tomorrow B12/folate wnl EGD/c-scope Dr Coyle in 2019 unremarkable at that time fecal occult-- NEGATIVE hgb dropped to 7.3 last evening and obtained CTAP with R chest wall hematoma 5.2x 4.2cm Unfortunately was not uncovered during exam, however patient notes she had an IV for some reason to near her axillae that was pulled and "snapped" several days ago and she had brusing since that time . Was so bad 3 days ago that name band did not fit her wrist. Discussed likely source of drop in her hgb. Holding Eliquis 94% on RA and denied CP/SOB at this time Given dose of Venofer and repeated today 11/14 -- 3rd dose for tomorrow Given CP and hgb 7.5 (improved from 7.3) and decision to give 1 u prbc this am with 20mg IV lasix to prevent overload Also started Protonix 40mg daily for PPI proph given abx Monitor CBC in AM (3) Paroxysmal a-fib: Plan: Patient is currently in rate controlled atrial fibrillation --> was NSR previous day TSH elevated -- had been taking 100mcg Synthroid at home instead of 125mcg dose --> changed back to 125mcg and encouraged compliance and repeat TFT in 4 weeks outpatient EKG this morning afib rate controlled -- see anemia above. also replacement of mag as below, now wnl Continue on metoprolol and amiodarone, will continue these for now Anticoagulated with Eliquis -- holding given hematoma as above (4) Hypomagnesemia: Plan: checked given feeling poor, low K, afib on EKG Mag low at 1.2 --> IV replacement ordered resolved on repeat labs monitor while on PPI (5) Acute hyponatremia: Plan: With significant edema, question of malnutrition/"tea and toast" syndrome, possible worsening diastolic heart failure great response to Lasix, negative 21.9L liters total continue Lasix 40mg PO BID, great UO via medel --> discussed possible 1x/daily dosing and prn dose based on edema vs BID and then prn for edema once thyroid back in normal limits Will continue to monitor response --> almost euvolemic Na is 433 low serum osm with lower urine osm on admission suggesting excessive free water, volume overload Continue fluid restriction *Also of note, patient on tramadol which can cause hyponatremia as well TSH also elevated to 7.08 in patient on replacement --> recent increase from 100mcg to 125mcg (patient reported taking 100mcg tablets still) and would continue 125mcg daily and repeat TFT in 4 weeks and adjustments by PCP as needed appreciate recommendations from Dr Jaramillo, nephrology signed off, agreed with daily Lasix on discharge --> He also started on B1 supplementation for hx alcohol use -- reported 3x vodka seltzer/day 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 B12/folate wnl (6) Acute UTI: Plan: urine culture with Klebsiella continue Rocephin for now, change to PO Cefdinir 300mg BID complete 7 days total (on day 7 of treatment) Medel removed today and will need to monitor for retention (7) Hyperkalemia: Plan: K came down with Lasix Lasix 40mg BID, give Pot Chloride 20mEq daily BMP in AM (8) Failure to thrive: Plan: Likely multifactorial, consider malnutrition, edema as documented, hypothyroidism, morbid obesity, and chronic deconditioning PT/OT evaluation Agree with patient that she likely will require placement upon discharge, she would like to go to rehab --> bed available at [facility] when medically stable --> hopeful for tomorrow (9) Diabetes mellitus with diabetic polyneuropathy: Plan: sliding scale insulin Diabetic diet, monitor for hypoglycemia, no episodes (10) Hypothyroid: Plan: Patient is on 125 mcg of levothyroxine 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 She is on rescue albuterol inhaler Also obtaining overnight pulse ox for likely underlying sleep apnea +++-- will need formal outpt sleep study pending pulse ox overnight --> Will need communicated to [facility] to arrange at follow up (14) Anxiety: Plan: takes Ativan 1mg BID at home, requesting something mid day, having a lot more anxiety, worried about going to SNF will add 0.5mg PO PRN --> increased to TID prn (15) Hematoma: Plan: PT/OT as noted above -- [facility], however patient will need to continue inpatient stay for evaluation of anemia and continued diuresis Hopeful for d/c to [facility] tomorrow and will need monitoring of her CBC/BMP to ensure stability Also to have f/u with CHF clinic Admission and Anticipated Discharge Date Admission Date: November 06, 2020 Supervising Physician Co-Signing Physician Notes PA Supervision Note: I personally saw and examined the patient. I verified all vega points and agree with BALTAZAR Murray with the following exceptions and/or additions: S-patient reports some pain in the right upper arm and right lateral breast from hematoma. Is having some intermittent substernal chest pressure and heart palpitations with her atrial fibrillation. Was feeling a little bit lightheaded earlier today. O- Vitals reviewed Gen: AAOx3, NAD, obese, appears pale HEENT: Anicteric sclerae, EOMI CV: Irregularly irregular, normal rate no mgr nl S1S2 Pulm: CTAB no wcr Abd: +BS soft NT ND no masses or hernias Ext: 1+ pitting edema of the legs bilaterally, right upper inner arm and right lateral breast with significant hematoma and dark ecchymoses Skin: No rashes, warm/dry, ecchymosis as above Neuro: Full strength throughout A/D-82-pmyl-old female with numerous medical issues, here with acute on chronic diastolic CHF, and now with acute blood loss anemia secondary to right lateral chest wall hematoma. Needs transfusion for symptomatic anemia -Patient was consented by myself for PRBC transfusion Continue other care as above Subjective Patient evaluated this morning. Had episode of L sided chest discomfort this morning with associated diaphoresis. Feeling better this morning after the dose of Venofer but discussed giving unit of blood. Patient agreeable. Will maintain medel through blood with lasix but then d/c this afternoon to ensure able to void on own. Agreeable for follow up outpt for MRI for back symptoms as she would like ot recover from current issue first. Anticipate d/c to [facility] tomorrow and they can monitor BMP/CBC to ensure stability. She notes some pain to her R breast/axillae at site of hematoma -- hardened. Heat last night more irritating and would like to try ice. Very anxious about going home too early, so she voiced gratitude to keep overnight and repeat third dose of Venofer in AM as well. Will have close f/u with CHF clinic at d/c. Regarding edema -- almost resolved and states she can "actually feel" squeezing her legs today. Discussed avoidance of alcohol at discharge and once home from rehab -- she notes she does out of boredom but is agreeable to try and cut back/abstain. Questions/concerns addressed at this time. Review of Systems Review of Systems: All systems reviewed & are unremarkable except as noted in HPI & below Physical Exam Constitutional: well developed, + obese and comfortable; no acute distress Eyes: + anicteric sclerae and PERRL ENMT: Mouth: + poor dentition Neck: trachea midline, no thyromegaly Respiratory: normal respiratory effort, lungs clear to auscultation normal respiratory effort; no respiratory distress, no labored breathing and no cough Auscultation: + diminished lung sounds and + wheezes (faint expiratory wheezing) 94% on RA Cardiovascular: Rate/Rhythm: + irregularly irregular Heart Sounds: normal S1 and normal S2; no murmur Extremities: normal capillary refill and + edema (1+ Decreased b/l) trace-1+ edema to b/l LE Chest (Breasts): Additional Comments: large hematoma to R axillae, slightly decreased in size. not warm but is tender to palpation pulses palpable Gastrointestinal (Abdomen): normal bowel sounds, soft, nontender, no hepatosplenomegaly Musculoskeletal: Head/Neck/Chest: normocephalic, head atraumatic and neck supple Extremities: + abnormal strength; no cyanosis, no clubbing and no petechiae Knee: + knee abnormal to inspection (right knee bruise laterally, incision from prior TKA) Skin: + crusts, + dry skin and + erythema Neurologic: CN's II-XI intact bilaterally, moves all extremities and awake; no focal motor deficits Psychiatric: A+Ox3, euthymic affect (anxious about going home) Genitourinary: medel draining yellow urine Results & Data Results & Data ([facility]) Vital Signs (Past 12 Hours) Vital Signs Temp Pulse Resp BP BP Pulse Ox 11/14/20 07:00 36.5 C 69 20 125/77 96 11/14/20 03:56 36.5 C 60 20 122/76 97 11/13/20 23:06 36.6 C 67 20 109/66 97 Laboratory Results 11/14/20 11/14/20 11/14/20 Range/Units 08:12 05:18 05:18 WBC 4.97 (4.8-10.8) K/uL RBC 2.27 L (4.2-5.4) M/uL Hgb 7.5 L (12.0-16.0) g/dL Hct 23.0 L (37-47) % MCV 101.3 H (80-100) fL MCH 33.0 (25-34) pg MCHC 32.6 (32-36) g/dL RDW Std Deviation 55.8 H (36.4-46.3) fL RDW Coeff of Yazmin 15.3 H (11.5-14.5) % Plt Count 292 (130-400) K/uL MPV 8.8 (7.4-10.4) fL Sodium 134 L (136-145) mmol/L Potassium 3.7 (3.5-5.1) mmol/L Chloride 102 (98-107) mmol/L Carbon Dioxide 28 (21-32) mmol/L Anion Gap 4.0 (3-11) BUN 8 (7-18) mg/dl Creatinine 0.42 L (0.6-1.2) mg/dl Est Cr Clr Drug Dosing 157.9 ml/min Est GFR ( Amer) 130.9 ml/min Est GFR (Non-Af Amer) 113.0 ml/min BUN/Creatinine Ratio 18.7 (10-20) Glucose 90 (70-99) mg/dl POC Glucose 101 H (70-99) mg/dl Calcium 8.3 L (8.5-10.1) mg/dl Magnesium (1.8-2.4) mg/dl Iron (35-150) mcg/dl TIBC (250-450) mcg/dl Transferrin (200-360) mg/dl Transferrin % Sat (15-50) % Ferritin (8-388) ng/ml Total Bilirubin 0.9 (0.2-1) mg/dl AST 41 H (15-37) U/L ALT 30 (12-78) U/L Alkaline Phosphatase 177 H (45-117) U/L Lactate Dehydrogenase (84-246) U/L Troponin I (0-0.045) ng/ml Total Protein 6.4 (6.4-8.2) gm/dl Albumin 2.8 L (3.4-5.0) gm/dl Globulin 3.6 (2.5-4.0) gm/dl Albumin/Globulin Ratio 0.8 L (0.9-2) Vitamin B12 (193-986) pg/ml Folate (>5.38) ng/ml Stool Occult Bld Scrn 11/13/20 11/13/20 11/13/20 Range/Units 20:27 18:30 17:05 WBC (4.8-10.8) K/uL RBC (4.2-5.4) M/uL Hgb (12.0-16.0) g/dL Hct (37-47) % MCV (80-100) fL MCH (25-34) pg MCHC (32-36) g/dL RDW Std Deviation (36.4-46.3) fL RDW Coeff of Yazmin (11.5-14.5) % Plt Count (130-400) K/uL MPV (7.4-10.4) fL Sodium (136-145) mmol/L Potassium (3.5-5.1) mmol/L Chloride (98-107) mmol/L Carbon Dioxide (21-32) mmol/L Anion Gap (3-11) BUN (7-18) mg/dl Creatinine (0.6-1.2) mg/dl Est Cr Clr Drug Dosing ml/min Est GFR ( Amer) ml/min Est GFR (Non-Af Amer) ml/min BUN/Creatinine Ratio (10-20) Glucose (70-99) mg/dl POC Glucose 121 H 117 H (70-99) mg/dl Calcium (8.5-10.1) mg/dl Magnesium (1.8-2.4) mg/dl Iron (35-150) mcg/dl TIBC (250-450) mcg/dl Transferrin (200-360) mg/dl Transferrin % Sat (15-50) % Ferritin (8-388) ng/ml Total Bilirubin (0.2-1) mg/dl AST (15-37) U/L ALT (12-78) U/L Alkaline Phosphatase (45-117) U/L Lactate Dehydrogenase (84-246) U/L Troponin I (0-0.045) ng/ml Total Protein (6.4-8.2) gm/dl Albumin (3.4-5.0) gm/dl Globulin (2.5-4.0) gm/dl Albumin/Globulin Ratio (0.9-2) Vitamin B12 (193-986) pg/ml Folate (>5.38) ng/ml Stool Occult Bld Scrn Negative 11/13/20 11/13/20 11/13/20 Range/Units 12:07 11:45 11:21 WBC 6.05 (4.8-10.8) K/uL RBC 2.23 L (4.2-5.4) M/uL Hgb 7.3 L (12.0-16.0) g/dL Hct 22.6 L (37-47) % MCV 101.3 H (80-100) fL MCH 32.7 (25-34) pg MCHC 32.3 (32-36) g/dL RDW Std Deviation 55.4 H (36.4-46.3) fL RDW Coeff of Yazmin 15.2 H (11.5-14.5) % Plt Count 261 (130-400) K/uL MPV 8.7 (7.4-10.4) fL Sodium (136-145) mmol/L Potassium (3.5-5.1) mmol/L Chloride (98-107) mmol/L Carbon Dioxide (21-32) mmol/L Anion Gap (3-11) BUN (7-18) mg/dl Creatinine (0.6-1.2) mg/dl Est Cr Clr Drug Dosing ml/min Est GFR ( Amer) ml/min Est GFR (Non-Af Amer) ml/min BUN/Creatinine Ratio (10-20) Glucose (70-99) mg/dl POC Glucose 118 H (70-99) mg/dl Calcium (8.5-10.1) mg/dl Magnesium (1.8-2.4) mg/dl Iron (35-150) mcg/dl TIBC (250-450) mcg/dl Transferrin (200-360) mg/dl Transferrin % Sat (15-50) % Ferritin (8-388) ng/ml Total Bilirubin (0.2-1) mg/dl AST (15-37) U/L ALT (12-78) U/L Alkaline Phosphatase (45-117) U/L Lactate Dehydrogenase (84-246) U/L Troponin I (0-0.045) ng/ml Total Protein (6.4-8.2) gm/dl Albumin (3.4-5.0) gm/dl Globulin (2.5-4.0) gm/dl Albumin/Globulin Ratio (0.9-2) Vitamin B12 (193-986) pg/ml Folate (>5.38) ng/ml Stool Occult Bld Scrn Cancelled 11/13/20 11/13/20 11/13/20 Range/Units 08:32 08:32 08:32 WBC (4.8-10.8) K/uL RBC (4.2-5.4) M/uL Hgb (12.0-16.0) g/dL Hct (37-47) % MCV (80-100) fL MCH (25-34) pg MCHC (32-36) g/dL RDW Std Deviation (36.4-46.3) fL RDW Coeff of Yazmin (11.5-14.5) % Plt Count (130-400) K/uL MPV (7.4-10.4) fL Sodium (136-145) mmol/L Potassium (3.5-5.1) mmol/L Chloride (98-107) mmol/L Carbon Dioxide (21-32) mmol/L Anion Gap (3-11) BUN (7-18) mg/dl Creatinine (0.6-1.2) mg/dl Est Cr Clr Drug Dosing ml/min Est GFR ( Amer) ml/min Est GFR (Non-Af Amer) ml/min BUN/Creatinine Ratio (10-20) Glucose (70-99) mg/dl POC Glucose (70-99) mg/dl Calcium (8.5-10.1) mg/dl Magnesium 1.2 L (1.8-2.4) mg/dl Iron 45 (35-150) mcg/dl TIBC 287 (250-450) mcg/dl Transferrin 226 (200-360) mg/dl Transferrin % Sat 14 L (15-50) % Ferritin 78.9 (8-388) ng/ml Total Bilirubin (0.2-1) mg/dl AST (15-37) U/L ALT (12-78) U/L Alkaline Phosphatase (45-117) U/L Lactate Dehydrogenase 145 (84-246) U/L Troponin I < 0.015 (0-0.045) ng/ml Total Protein (6.4-8.2) gm/dl Albumin (3.4-5.0) gm/dl Globulin (2.5-4.0) gm/dl Albumin/Globulin Ratio (0.9-2) Vitamin B12 659 (193-986) pg/ml Folate 18.00 (>5.38) ng/ml Stool Occult Bld Scrn Diagnostic Findings Abdomen/Pelvis CT 11/13/20 12:11 CT abd pelvis IV con only CLINICAL HISTORY: anemia, drop in hgb COMPARISON STUDY: November 08, 2019 TECHNIQUE: A dose lowering technique was utilized adhering to the principles of ALARA. CT DOSE: 1409.52 mGy.cm FINDINGS: Limited exam due to beam hardening artifact from patient's body habitus Lower chest: Small atelectasis at dependent portions of bilateral lower lobes. Trace right pleural effusion.. Liver: The contrast-enhanced liver is normal in size, contour, and attenuation. There is no intrahepatic biliary ductal dilatation. The hepatic veins and portal veins are patent. Gallbladder: Is partially collapsed. Spleen: Normal in size and attenuation. Pancreas: Unremarkable. Adrenal glands: Unremarkable. Kidneys: There is symmetric renal cortical enhancement. The kidneys are normal in size without hydronephrosis. Pelvic viscera: Urinary bladder is decompressed with Medel balloon which limits evaluation. Calcified uterine lesions, likely represent fibroids are seen, largest is measured 3.7 cm in size and unchanged since prior. Bowel: Loops of small bowel are nondilated. Colonic loops are nondilated and extensively filled with stool. Appendix is not well seen. Peritoneum: No free intraperitoneal gas is seen. Diffuse mesenteric edema is more prominent since prior study. No definite ascites is seen. Vasculature: Abdominal aorta is normal in caliber, tortuous with scattered calcifications of its wall. Adenopathy: A few retroperitoneal lymph nodes are seen, measuring less than 1 cm in short axis, nonpathological by CT size criteria. Skeletal structures: Diffuse osteopenia. Multilevel degenerative changes of the spine. Interval development of compression fracture deformity of L3 and 5 mm retropulsion of the posterior fractured fragment toward central canal. Diffuse soft tissue edema is again seen. Focal areas of increase attenuation are partially visualized within right chest wall (3/1), largest is measuring 5.2 x 4.2 cm in size, might represent subcutaneous/soft tissue hematoma. IMPRESSION: 1. Partially visualized hypoattenuating lesion within soft tissue overlying right inferior chest wall might represent hematoma. Please correlate above- mentioned findings with direct inspection and possible ultrasound or CT of the chest. 2. Interval development of compression fracture deformity of L3 with 5 mm retropulsion of the posterior fractured fragment to the central canal. Please correlate above-mentioned findings with clinical presentation of back pain. Furt her evaluation with MRI of the lumbar spine might be considered. 3. Diffuse soft tissue edema is again seen. Mild interval prominence of peritoneal edema. No definite ascites is seen. 4. Small right pleural effusion. Compressive atelectasis at dependent portions of bilateral lower lobes. 5. Loops of large bowel with extensive stool content. 6. The rest of findings as above. ACT 112: Negative or not required by law. The above report was generated using voice recognition software. It may contain grammatical, syntax or spelling errors. Electronically signed by: Milly Sanchez DO 11/13/2020 2:09 PM PG Care Time/CCT Total # of Minutes Spent Total Time Spent with Patient: Total time spent is greater than 50% in coordination of care (as documented) at patient's floor/unit and/or counseling patient: Coding Level of Care Code 22678 Subseq Hosp Care Lvl 3 Diagnoses Acute on chronic diastolic (congestive) heart failure I50.33 Anemia D64.9 Paroxysmal a-fib I48.0 Hypomagnesemia E83.42 Acute hyponatremia E87.1 Acute UTI N39.0 Hyperkalemia E87.5 Failure to thrive Diabetes mellitus with diabetic polyneuropathy E11.42 Hypothyroid E03.9 Hypothyroidism type: acquired Hypercholesteremia E78.00 Hypertension I10 Asthma J45.20 Asthma complication type: unspecified Asthma persistence: intermittent Asthma severity: mild Anxiety F41.9 Hematoma T14.8XXA (1) Hypothyroid Hypothyroidism type: acquired Qualified Code(s): E03.9 - Hypothyroidism, unspecified (2) Asthma Asthma complication type: unspecified Asthma persistence: intermittent Asthma severity: mild Qualified Code(s): J45.20 - Mild intermittent asthma, uncomplicated
[2020-11-14] MEDS: traMADol HCL 50 MG TABLET PO SCH ×2 (08:39→21:12)
[2020-11-14] MEDS: POTASSIUM CHLORIDE CRTAB 20 MEQ TABCR PO SCH (08:40)
[2020-11-14] MEDS: INSULIN ASPART 100 UNITS/ML 3 ML PEN SC SCH ×4 (08:42→21:44)
[2020-11-14] MEDS: LORazepam 0.5 MG TAB PO PRN ×2 (08:50→21:12)
[2020-11-14] MEDS ORDERED: MAGNESIUM SULFATE / D5W 1 GM/100 ML BAG IV ONE (09:00)
[2020-11-14] MEDS ORDERED: FUROSEMIDE 20 MG in SYRINGE 0 ML IV ONE (09:00)
[2020-11-14 09:39] LABS: Magnesium 1.9 mg/dl (1.8-2.4); Troponin I < 0.015 ng/ml (0-0.045)
[2020-11-14] MEDS ORDERED: SODIUM CHLORIDE 0.9% 250 ML IV PRN (10:17)
[2020-11-14] MEDS: CHOLECALCIFEROL 1,000 UNITS 25 MCG TAB PO SCH (13:24)
[2020-11-14] MEDS: CYANOCOBALAMIN 500 MCG TABLET (VITAMIN B-12) PO SCH (13:24)
--- NOTE | 2020-11-14 14:00 | Electrocardiogram Report ---
Test Reason : Blood Pressure : / mmHG Vent. Rate : 070 BPM Atrial Rate : 070 BPM P-R Int : 000 ms QRS Dur : 092 ms QT Int : 434 ms P-R-T Axes : 000 111 -13 degrees QTc Int : 468 ms Atrial fibrillation Left posterior fascicular block Nonspecific ST abnormality Abnormal ECG When compared with ECG of 13-NOV-2020 08:40, Left posterior fascicular block is now Present Confirmed by Ignacio Becker ([id number]) on 11/14/2020 2:00:35 PM Referred By: REFERRED SELF Confirmed By:Tico Becker
--- NOTE | 2020-11-14 14:57 | Heart Failure Progress Note ---
Date of Service November 14, 2020 Assessment & Plan (1) Acute on chronic diastolic (congestive) heart failure: (2) Hyponatremia: (3) Failure to thrive: (4) Alcohol use: (5) VALERIE (obstructive sleep apnea): (6) Paroxysmal a-fib: Plan: Patient is known to me from her previous orthopedic experience. We discussed the nature of heart failure and the goals of the program. I think she would greatly benefit from the program. She is agreeable to ongoing participation. Patient is planning to discharge to [facility]. Will plan to continue collaborative management of her volume status while she is there. May need to consider care home placement given her recent decline, condition of her home, and nonadherence. She has had an excellent response to diuretic treatment. Continue 40 mg BID as long as creatinine stable. Would recommend Lasix 40 mg daily on discharge. If she is gaining weight or symptoms worsen, would resume 40 mg twice daily. Kidney function remains stable. Potassium levels improved to normal today. Could also consider adding Spironolactone on discharge. Sodium levels have improved. Continue fluid restriction upon discharge. Daily weights. Standing if possible. Would like to attempt at least one standing weight before discharge to determine a baseline weight for her- discussed this with patient and nurses aide this am. Low sodium diet. Strict I&Os while inpatient. Disposition: Will continue to follow along during hospitalization. Heart failure follow up scheduled for 11/20/20 at 1400. Admission and Anticipated Discharge Date Admission Date: November 06, 2020 Subjective Patient continues to improve. She is laying flat at the time of my visit without complaints. She feels her breathing continues to trend towards baseline. Edema is improving. She states she can "feel her afib" She continues to significantly diurese on PO Lasix. Now almost - 30 L this admission. Weight is 206 lb today via bed scale. (2 weights yesterday with a 40 lb difference? Hard to know what's accurate). Physical Exam Physical Exam: Constitutional: Alert, oriented, in no acute distress. Morbidly obese. HEENT: Head is atraumatic and normocephalic. EOMs intact. Sclera anicteric. Face is symmetric. No perioral cyanosis. Mucous membranes moist. Neck: Supple, no JVD but difficult exam. Pulmonary: Normal respiratory effort, diminished breath sounds otherwise clear to auscultation bilaterally Cardiac: Irregular rate and rhythm. Normal S1 and S2, no gallops, no rubs, no murmurs Extremities: 2+ radial pulses bilaterally. 2+ posterior tibialis pulses bilaterally. 1+ pitting edema. No cyanosis or clubbing. Multiple toe amputations. Abdomen: Normal bowel sounds, soft, non-tender, no abdominal mass palpated Skin: Normal skin color, turgor, and pigmentation, no rash, Neurological: Patient is awake, alert, and oriented. Pleasant and cooperative. Answers questions appropriately. Speech is clear. Normal movement in all 4 extremities. Results & Data ([facility]) Vital Signs (Past 12 Hours) Vital Signs Temp Pulse Pulse Resp BP BP BP 11/14/20 12:28 98.2 F 70 16 123/73 11/14/20 12:11 98.2 F 73 16 114/70 11/14/20 11:26 98.1 F 78 18 116/73 11/14/20 07:00 97.7 F 69 20 125/77 11/14/20 03:56 97.7 F 60 20 122/76 Pulse Ox 11/14/20 12:28 92 11/14/20 12:11 92 11/14/20 11:26 94 11/14/20 07:00 96 11/14/20 03:56 97 PG Care Time/CCT Total # of Minutes Spent Total Time Spent with Patient: Total time spent is greater than 50% in coordination of care (as documented) at patient's floor/unit and/or counseling patient: Heart Failure Data/Metrics Heart Failure Type: Diastolic Evidenced Based Beta Kinza Therapy Beta Kinza Therapy: Not Indicated SANTI/ARB/ARNI Therapy SANTI/ARB/ARNI Therapy: Not Indicated Aldosterone Antagonist Therapy Aldosterone Antagonist Therapy: Not Indicated Coding Level of Care Code 58344 Subseq Hosp Care Lvl 3 Diagnoses Acute on chronic diastolic (congestive) heart failure I50.33 Hyponatremia E87.1 Failure to thrive Alcohol use Z78.9 VALERIE (obstructive sleep apnea) G47.33 Paroxysmal a-fib I48.0
[2020-11-14 18:25] LABS: Hematocrit (blood only) 28.3 % (37-47); Mean Corpuscular Hemoglobin 31.7 pg (25-34); Mean Corpuscular Hgb Conc 31.8 g/dL (32-36); Mean Corpuscular Volume 99.6 fL (80-100); Mean Platelet Volume 9.1 fL (7.4-10.4); Platelet Count 339 K/uL (130-400); RDW Coefficient of Variation 16.4 % (11.5-14.5); RDW Standard Deviation 59.3 fL (36.4-46.3); Red Blood Count 2.84 M/uL (4.2-5.4); White Blood Count 6.47 K/uL (4.8-10.8)
[2020-11-14 18:49] LABS: BUN Creatinine Ratio 15.8 (10-20); Calcium 8.6 mg/dl (8.5-10.1); Creatinine Clr Calc Pharmacy 105.8 ml/min; Est GFR (African American) 114.6 ml/min; Est GFR (Non-African American) 98.9 ml/min; Potassium 3.8 mmol/L (3.5-5.1)
[2020-11-14] MEDS: LIDOCAINE 5% 1 PATCH TD SCH (21:06)
[2020-11-14] MEDS: ATORVASTATIN 40 MG TAB PO SCH (21:13)
[2020-11-14] MEDS: MONTELUKAST SODIUM 10 MG TABLET PO SCH (21:16)
[2020-11-15] MEDS: ACETAMINOPHEN 325 MG TAB PO PRN ×2 (02:12→16:00)
[2020-11-15] MEDS: LEVOTHYROXINE SODIUM 125 MCG TABLET PO SCH (05:23)
[2020-11-15 05:59] LABS: Hematocrit (blood only) 27.7 % (37-47); Hemoglobin 8.9 g/dL (12.0-16.0); Mean Corpuscular Hemoglobin 32.4 pg (25-34); Mean Corpuscular Hgb Conc 32.1 g/dL (32-36); Mean Corpuscular Volume 100.7 fL (80-100); Platelet Count 348 K/uL (130-400); RDW Coefficient of Variation 16.5 % (11.5-14.5); Red Blood Count 2.75 M/uL (4.2-5.4); White Blood Count 5.64 K/uL (4.8-10.8)
[2020-11-15 06:25] LABS: Albumin Level 2.9 gm/dl (3.4-5.0); BUN Creatinine Ratio 18.5 (10-20); Calcium 8.8 mg/dl (8.5-10.1); Est GFR (African American) 117.8 ml/min; Est GFR (Non-African American) 101.6 ml/min; Potassium 3.8 mmol/L (3.5-5.1)
[2020-11-15 06:28] LABS: Albumin Globulin Ratio 0.8 (0.9-2); Bilirubin,Total 1.2 mg/dl (0.2-1); Globulin 3.8 gm/dl (2.5-4.0); Total Protein 6.7 gm/dl (6.4-8.2)
[2020-11-15] MEDS ORDERED: MAGNESIUM CITRATE 296 ML/BTL PO SCH (07:00)
--- NOTE | 2020-11-15 08:14 | Hospitalist Progress Note ---
Date of Service November 15, 2020 Assessment & Plan (1) Acute on chronic diastolic (congestive) heart failure: Plan: preserved EF with grade III diastolic dysfunction, biatrial dilation, elevated pulm pressures responded well to Lasix IV , now on PO as below Continue Lasix 40mg PO BID while here CHF clinic consulted for follow-up Net negative 30.2 L Continue fluid restriction 1800mL/day recommend continuing this at rehab Weight reported 151 kg on admission but suspect some inaccuracies given ambulatory status however weight was able to be obtained with standing scale today and is down to 90.9 kg Chest x-ray this morning with slight decrease in mild pulmonary vascular congestion and will maintain Lasix 40 twice daily *Did get a dose of Lasix 20 mg IV x1 on 11/14 with her unit of PRBCs Kidney function continues to remain stable Overnight pulse ox --> will need supplementation at night and formal study outpatient Continue to monitor overnight (2) Anemia: Plan: Hgb 11.3 on admission -- hx iron deficiency anemia. (Also etoh and on B12 folate and thiamine supplementation with normal B12 and folate levels) History of normal EGD and colonoscopy by Dr. Coyle 2019 Fecal occult negative B12/folate wnl iron studies were obtained which showed iron low normal 45 with a transferrin percent sat 14 and a ferritin of 78 Hemoglobin dropped despite diuresis to a low of 7.3 CT with a right chest wall hematoma 5.2 x 4.2 cm likely cause of her anemia (Upon review, patient had reported IV site in her right axillary upper arm area which was noted to have an issue on 8 when it "popped") Eliquis held Symptomatic anemia with palpitations with A. fib on 11/14 position for 1 unit PRBC as above Hemoglobin stable 8.9 today (multiple lab draws contributing as well) Venofer -- 3rd dose for today Started PPI daily for proph given abx during admission CBC in AM (3) Paroxysmal a-fib: Plan: Patient is currently in rate controlled atrial fibrillation --> was NSR previous day TSH elevated -- see below EKG this morning afib rate controlled -- see anemia above. also replacement of mag as below, now wnl Continue on metoprolol and amiodarone, will continue these for now Anticoagulated with Eliquis -- holding given hematoma as above has now been resumed will monitor blood counts on (4) Hypothyroid: Plan: TSH elevated to 7.08 -- had been taking 100mcg Synthroid at home instead of 125mcg dose Continue on 125mcg and encouraged compliance and repeat TFT within the month for further adjustments with PCP (5) Hypomagnesemia: Plan: checked given feeling poor, low K, afib on EKG Mag low at 1.2 --> IV replacement ordered Repeat within normal limits continue to monitor on PPI (6) Acute hyponatremia: Plan: With significant edema-=-> worsening diastolic heart failure (BNP 4032 on 11/06) Contributing her Tea and toast alcoholic diet (low serum awesome with lower ur ine awesome on admission suggesting excessive free water volume overload status) Diuresis as above with 40 Lasix twice daily P0 Net -30.2 L Sodium is 136 today Also of note patient on tramadol for pain control which could also be contributing as well as her hypothyroidism (see below) (7) Acute UTI: Plan: urine culture with Klebsiella Was given Rocephin with transition to cefdinir and completed a 7-day course of treatment No burning or fevers since removal of catheter on 11/14 (8) Hyperkalemia: Plan: K came down with Lasix Lasix 40mg BID, give Pot Chloride 20mEq daily Potassium remains stable 3.8 BMP in AM (9) Failure to thrive: Plan: Likely multifactorial, consider malnutrition, edema as documented, hypothyroidism, morbid obesity, and chronic deconditioning PT/OT evaluation with recs for rehab in bed [facility] (10) Diabetes mellitus with diabetic polyneuropathy: Plan: sliding scale insulin Diabetic diet, monitor for hypoglycemia, no episodes (11) Hypercholesteremia: Plan: Atorvastatin 40 mg daily (12) Hypertension: Plan: Blood pressure currently stable on current medications, will continue Continue diltiazem 360mg daily, metoprolol succinate 100mg BID Lasix 40mg BID as above for diuresis BP stable Continue to monitor (13) Asthma: Plan: O2 support as ordered. She is on rescue albuterol inhaler Also obtaining overnight pulse ox for likely underlying sleep apnea +++-- will need formal outpt sleep study pending pulse ox overnight --> Will need communicated to [facility] to arrange at follow up (14) Anxiety: Plan: takes Ativan 1mg BID at home, requesting something mid day, having a lot more anxiety, worried about going to SNF 0.5mg PO PRN --> increased to TID prn (15) Hematoma: Plan: Secondary to IV Decreased in size, less tender CT as above Hemoglobin stable today and is doing Eliquis this evening Plan: PT/OT as noted above -- [facility] to have bed tomorrow, however patient will need to continue inpatient stay for evaluation of anemia and hematoma now that Eliquis has been resumed Hopeful for d/c to [facility] tomorrow will need monitoring of her CBC/BMP to ensure stability Also to have f/u with CHF clinic Admission and Anticipated Discharge Date Admission Date: November 06, 2020 Supervising Physician Co-Signing Physician Notes PA Supervision Note: I did not personally see or examine the patient today, but I verified all vega points of BALTAZAR Murray's assessment and plan with the following exceptions/additions: None Subjective Patient valuate this morning. She states that she is feeling much better today by day.. Breathing is stable and no shortness of breath. Her edema is almost resolved. She states that she was able to ambulate a little better today compared to days past as expected are getting stronger rehab although anxious about going given previous to 3 during initial Covid surge they had at [facility]. Discussed follow-up with CHF clinic and once thyroid function is returned to normal she may be able to be maintained on once daily Lasix but will continue on twice daily for now. Decreased tenderness and swelling to the hematoma of the right axilla discussed resuming her Eliquis this evening will monitor her blood counts for tomorrow. Discussed normal right upper quadrant ultrasound and patient denies any abdominal pain.. She was currently drinking mag citrate for reported no bowel movement for several days however she notes that she has been having bowel movements daily. No fever, chills, chest pain outside of occasional discomfort at the site of hematoma, abdominal pain, nausea, vomiting. No dysuria or difficulty with urination since removal of Cordero catheter yesterday. Review of Systems Review of Systems: All systems reviewed & are unremarkable except as noted in HPI & below Physical Exam Constitutional: well developed, + obese and comfortable; no acute distress Eyes: + anicteric sclerae and PERRL ENMT: Mouth: + poor dentition Neck: trachea midline, no thyromegaly Respiratory: normal respiratory effort, lungs clear to auscultation normal respiratory effort; no respiratory distress, no labored breathing and no cough Auscultation: + diminished lung sounds; no wheezes Cardiovascular: Rate/Rhythm: + irregularly irregular Heart Sounds: normal S1 and normal S2; no murmur Extremities: normal capillary refill and + edema (1+ Decreased b/l) Chest (Breasts): Additional Comments: Diffuse ecchymosis to right axilla and right lateral breast, hematoma decreased in size and is less firm today. Gastrointestinal (Abdomen): normal bowel sounds, soft, nontender, no hepatosplenomegaly Musculoskeletal: Head/Neck/Chest: normocephalic, head atraumatic and neck supple Extremities: + abnormal strength; no cyanosis, no clubbing and no petechiae Knee: + knee abnormal to inspection (right knee bruise laterally, incision from prior TKA) Multiple toe amputations with out evidence of erythema right Skin: + crusts, + dry skin and + erythema Neurologic: CN's II-XI intact bilaterally, moves all extremities and awake; no focal motor deficits Psychiatric: A+Ox3, euthymic affect (anxious about going home) Genitourinary: No Cordero Results & Data Results & Data ([facility]) Vital Signs (Past 12 Hours) Vital Signs Temp Pulse Resp BP BP Pulse Ox 11/15/20 07:00 36.5 C 79 18 123/82 96 11/14/20 22:57 36.6 C 66 16 118/78 94 11/14/20 21:00 82 117/78 Laboratory Results 11/15/20 11/15/20 11/14/20 Range/Units 05:34 05:34 21:03 WBC 5.64 (4.8-10.8) K/uL RBC 2.75 L (4.2-5.4) M/uL Hgb 8.9 L (12.0-16.0) g/dL Hct 27.7 L (37-47) % MCV 100.7 H (80-100) fL MCH 32.4 (25-34) pg MCHC 32.1 (32-36) g/dL RDW Std Deviation 60.0 H (36.4-46.3) fL RDW Coeff of Yazmin 16.5 H (11.5-14.5) % Plt Count 348 (130-400) K/uL MPV 9.0 (7.4-10.4) fL Sodium 136 (136-145) mmol/L Potassium 3.8 (3.5-5.1) mmol/L Chloride 101 (98-107) mmol/L Carbon Dioxide 30 (21-32) mmol/L Anion Gap 5.0 (3-11) BUN 11 (7-18) mg/dl Creatinine 0.58 L (0.6-1.2) mg/dl Est Cr Clr Drug Dosing 115.0 ml/min Est GFR ( Amer) 117.8 ml/min Est GFR (Non-Af Amer) 101.6 ml/min BUN/Creatinine Ratio 18.5 (10-20) Glucose 96 (70-99) mg/dl POC Glucose 109 H (70-99) mg/dl Calcium 8.8 (8.5-10.1) mg/dl Magnesium (1.8-2.4) mg/dl Total Bilirubin 1.2 H (0.2-1) mg/dl AST 37 (15-37) U/L ALT 29 (12-78) U/L Alkaline Phosphatase 172 H (45-117) U/L Troponin I (0-0.045) ng/ml Total Protein 6.7 (6.4-8.2) gm/dl Albumin 2.9 L (3.4-5.0) gm/dl Globulin 3.8 (2.5-4.0) gm/dl Albumin/Globulin Ratio 0.8 L (0.9-2) Blood Type Antibody Screen Crossmatch 11/14/20 11/14/20 11/14/20 Range/Units 18:06 18:06 17:29 WBC 6.47 (4.8-10.8) K/uL RBC 2.84 L (4.2-5.4) M/uL Hgb 9.0 L (12.0-16.0) g/dL Hct 28.3 L (37-47) % MCV 99.6 (80-100) fL MCH 31.7 (25-34) pg MCHC 31.8 L (32-36) g/dL RDW Std Deviation 59.3 H (36.4-46.3) fL RDW Coeff of Yazmin 16.4 H (11.5-14.5) % Plt Count 339 (130-400) K/uL MPV 9.1 (7.4-10.4) fL Sodium 135 L (136-145) mmol/L Potassium 3.8 (3.5-5.1) mmol/L Chloride 100 (98-107) mmol/L Carbon Dioxide 28 (21-32) mmol/L Anion Gap 7.0 (3-11) BUN 10 (7-18) mg/dl Creatinine 0.63 (0.6-1.2) mg/dl Est Cr Clr Drug Dosing 105.8 ml/min Est GFR ( Amer) 114.6 ml/min Est GFR (Non-Af Amer) 98.9 ml/min BUN/Creatinine Ratio 15.8 (10-20) Glucose 100 H (70-99) mg/dl POC Glucose 110 H (70-99) mg/dl Calcium 8.6 (8.5-10.1) mg/dl Magnesium (1.8-2.4) mg/dl Total Bilirubin (0.2-1) mg/dl AST (15-37) U/L ALT (12-78) U/L Alkaline Phosphatase (45-117) U/L Troponin I (0-0.045) ng/ml Total Protein (6.4-8.2) gm/dl Albumin (3.4-5.0) gm/dl Globulin (2.5-4.0) gm/dl Albumin/Globulin Ratio (0.9-2) Blood Type Antibody Screen Crossmatch 11/14/20 11/14/20 11/14/20 Range/Units 11:59 10:22 08:12 WBC (4.8-10.8) K/uL RBC (4.2-5.4) M/uL Hgb (12.0-16.0) g/dL Hct (37-47) % MCV (80-100) fL MCH (25-34) pg MCHC (32-36) g/dL RDW Std Deviation (36.4-46.3) fL RDW Coeff of Yazmin (11.5-14.5) % Plt Count (130-400) K/uL MPV (7.4-10.4) fL Sodium (136-145) mmol/L Potassium (3.5-5.1) mmol/L Chloride (98-107) mmol/L Carbon Dioxide (21-32) mmol/L Anion Gap (3-11) BUN (7-18) mg/dl Creatinine (0.6-1.2) mg/dl Est Cr Clr Drug Dosing ml/min Est GFR ( Amer) ml/min Est GFR (Non-Af Amer) ml/min BUN/Creatinine Ratio (10-20) Glucose (70-99) mg/dl POC Glucose 104 H 101 H (70-99) mg/dl Calcium (8.5-10.1) mg/dl Magnesium (1.8-2.4) mg/dl Total Bilirubin (0.2-1) mg/dl AST (15-37) U/L ALT (12-78) U/L Alkaline Phosphatase (45-117) U/L Troponin I (0-0.045) ng/ml Total Protein (6.4-8.2) gm/dl Albumin (3.4-5.0) gm/dl Globulin (2.5-4.0) gm/dl Albumin/Globulin Ratio (0.9-2) Blood Type O Positive Antibody Screen NEGATIVE Crossmatch See Detail 11/14/20 Range/Units 05:36 WBC (4.8-10.8) K/uL RBC (4.2-5.4) M/uL Hgb (12.0-16.0) g/dL Hct (37-47) % MCV (80-100) fL MCH (25-34) pg MCHC (32-36) g/dL RDW Std Deviation (36.4-46.3) fL RDW Coeff of Yazmin (11.5-14.5) % Plt Count (130-400) K/uL MPV (7.4-10.4) fL Sodium (136-145) mmol/L Potassium (3.5-5.1) mmol/L Chloride (98-107) mmol/L Carbon Dioxide (21-32) mmol/L Anion Gap (3-11) BUN (7-18) mg/dl Creatinine (0.6-1.2) mg/dl Est Cr Clr Drug Dosing ml/min Est GFR ( Amer) ml/min Est GFR (Non-Af Amer) ml/min BUN/Creatinine Ratio (10-20) Glucose (70-99) mg/dl POC Glucose (70-99) mg/dl Calcium (8.5-10.1) mg/dl Magnesium 1.9 (1.8-2.4) mg/dl Total Bilirubin (0.2-1) mg/dl AST (15-37) U/L ALT (12-78) U/L Alkaline Phosphatase (45-117) U/L Troponin I < 0.015 (0-0.045) ng/ml Total Protein (6.4-8.2) gm/dl Albumin (3.4-5.0) gm/dl Globulin (2.5-4.0) gm/dl Albumin/Globulin Ratio (0.9-2) Blood Type Antibody Screen Crossmatch Diagnostic Findings Chest X-Ray 11/15/20 07:00 XR chest 1V portable HISTORY: Shortness of breath. follow up congestion COMPARISON: 11/13/2020. FINDINGS: Slight improvement in the mild central pulmonary vascular congestion. No overt pulmonary edema. Left basilar linear density favors atelectasis or scarring. This remains unchanged. No new focal lung consolidations. No pleural effusions. No pneumothorax. The heart remains enlarged. IMPRESSION: Slight improvement in the mild pulmonary vascular congestion. ACT 112: Negative or not required by law. Electronically signed by: Aron Mcelroy M.D. 11/15/2020 8:23 AM Gallbladder Ultrasound 11/15/20 09:00 US gallbladder CLINICAL HISTORY: 60 years-old Female presenting with elevated TB, Alk phos, R sided pain. TECHNIQUE: Real-time grayscale ultrasound imaging of the upper abdomen was performed for a focused evaluation at the site of clinical concern. COMPARISON: None. FINDINGS: Liver is slightly increase in size measuring 18 cm. Normal echogenicity of liver parenchyma without focal lesions or intrahepatic biliary dilatation. Gallbladder is fluid-filled without evidence of intraluminal calculi. Normal gallbladder wall. No evidence of pericholecystic edema. Common bile duct is normal measuring 0.4 cm in diameter. Pancreas shows no evidence of focal lesions. Right kidney shows no evidence of hydronephrosis and small 0.7 x 0.7 hypoechoic structure within its upper-mid pole representing small cysts. IMPRESSION: 1. Mild hepatomegaly. 2. No cholelithiasis/cholecystitis. Normal common bile duct. No intrahepatic biliary dilatation. 3. Small right renal cyst. ACT 112: Negative or not required by law. Electronically signed by: Milly Sanchez DO 11/15/2020 11:31 AM PG Care Time/CCT Total # of Minutes Spent Total Time Spent with Patient: Total time spent is greater than 50% in coordination of care (as documented) at patient's floor/unit and/or counseling patient: Coding Level of Care Code 53946 Subseq Hosp Care Lvl 3 Diagnoses Acute on chronic diastolic (congestive) heart failure I50.33 Anemia D64.9 Paroxysmal a-fib I48.0 Hypomagnesemia E83.42 Acute hyponatremia E87.1 Acute UTI N39.0 Hyperkalemia E87.5 Failure to thrive Diabetes mellitus with diabetic polyneuropathy E11.42 Hypothyroid E03.9 Hypothyroidism type: acquired Hypercholesteremia E78.00 Hypertension I10 Asthma J45.20 Asthma complication type: unspecified Asthma persistence: intermittent Asthma severity: mild Anxiety F41.9 Hematoma T14.8XXA (1) Hypothyroid Hypothyroidism type: acquired Qualified Code(s): E03.9 - Hypothyroidism, unspecified (2) Asthma Asthma complication type: unspecified Asthma persistence: intermittent Asthma severity: mild Qualified Code(s): J45.20 - Mild intermittent asthma, uncomplicated
--- NOTE | 2020-11-15 08:24 | XRay Report ---
XR chest 1V portable HISTORY: Shortness of breath. follow up congestion COMPARISON: 11/13/2020. FINDINGS: Slight improvement in the mild central pulmonary vascular congestion. No overt pulmonary ed mojgan. Left basilar linear density favors atelectasis or scarring. This remains unchanged. No new focal lung consolidations. No pleural effusions. No pneumothorax. The heart remains enlarged. IMPRESSION: Slight improvement in the mild pulmonary vascular congestion. ACT 112: Negative or not required by law. Electronically signed by: Aron Mcelroy M.D. 11/15/2020 8:23 AM
[2020-11-15] MEDS: INSULIN ASPART 100 UNITS/ML 3 ML PEN SC SCH ×4 (09:50→21:55)
[2020-11-15] MEDS: FOLIC ACID 1 MG in SYRINGE 9.8 ML IV SCH (09:50)
[2020-11-15] MEDS: VENLAFAXINE HCL XR 150 MG CAPXR PO SCH (09:51)
[2020-11-15] MEDS: MAGNESIUM OXIDE 400 MG TAB PO SCH ×2 (09:51→21:46)
[2020-11-15] MEDS: MULTIVITAMIN CHEWABLE TAB PO SCH (09:51)
[2020-11-15] MEDS: FUROSEMIDE 40 MG TAB PO SCH ×2 (09:51→21:47)
[2020-11-15] MEDS: busPIRone 5 MG TAB PO SCH ×2 (09:51→21:47)
[2020-11-15] MEDS: METOPROLOL SUCC 50MG EXT REL TAB PO SCH ×2 (09:51→21:50)
[2020-11-15] MEDS: AMIODARONE 200 MG TAB PO SCH (09:52)
[2020-11-15] MEDS: dilTIAZem HCL 180 MG CAPCR PO SCH (09:52)
[2020-11-15] MEDS: CETIRIZINE HCL 10 MG TABLET PO SCH (09:52)
[2020-11-15] MEDS: PANTOprazole 40 MG TAB PO SCH (09:52)
[2020-11-15] MEDS: THIAMINE HCL 100 MG TAB PO SCH (09:52)
[2020-11-15] MEDS: traMADol HCL 50 MG TABLET PO SCH ×2 (10:08→21:43)
[2020-11-15] MEDS: POTASSIUM CHLORIDE CRTAB 20 MEQ TABCR PO SCH (10:08)
[2020-11-15] MEDS: LORazepam 0.5 MG TAB PO PRN ×2 (10:08→21:43)
--- NOTE | 2020-11-15 10:55 | Heart Failure Progress Note ---
Date of Service November 15, 2020 Assessment & Plan (1) Acute on chronic diastolic (congestive) heart failure: (2) Hyponatremia: (3) Failure to thrive: (4) Alcohol use: (5) VALERIE (obstructive sleep apnea): (6) Paroxysmal a-fib: Plan: Patient is known to me from her previous orthopedic experience. We discussed the nature of heart failure and the goals of the program. I think she would greatly benefit from the program. She is agreeable to ongoing participation. Patient is planning to discharge to [facility] possibly today. Will plan to continue collaborative management of her volume status while she is there. May need to consider fci placement given her recent decline, condition of her home, and nonadherence. She has had an excellent response to diuretic treatment. Continue 40 mg BID as long as creatinine stable. She is nearing euvolemia. Dry weight 200 lb. Would recommend Lasix 40 mg daily on discharge. If she is gaining weight or symptoms worsen, would resume 40 mg twice daily. Kidney function remains stable. Potassium levels improved to normal today. Could also consider adding Spironolactone on discharge. Sodium levels have improved. Continue fluid restriction upon discharge. Daily weights. Standing if possible. Low sodium diet. Strict I&Os while inpatient. Disposition: Will continue to follow along during hospitalization. Heart failure follow up scheduled for 11/20/20 at 1400. Admission and Anticipated Discharge Date Admission Date: November 06, 2020 Subjective Patient continues to improve. She is laying flat at the time of my visit without complaints. She feels her breathing continues to trend towards baseline. Edema is improving. She states she can "feel her afib" She continues to significantly diurese on PO Lasix. Now almost - 30 L this admission. She was able to get a standing weight today with the help of PT- 200 lb. Physical Exam Physical Exam: Constitutional: Alert, oriented, in no acute distress. Morbidly obese. HEENT: Head is atraumatic and normocephalic. EOMs intact. Sclera anicteric. Face is symmetric. No perioral cyanosis. Mucous membranes moist. Neck: Supple, no JVD but difficult exam. Pulmonary: Normal respiratory effort, diminished breath sounds otherwise clear to auscultation bilaterally Cardiac: Irregular rate and rhythm. Normal S1 and S2, no gallops, no rubs, no murmurs Extremities: 2+ radial pulses bilaterally. 2+ posterior tibialis pulses bilaterally. 1+ pitting edema. No cyanosis or clubbing. Multiple toe amputations. RUE ecchymosis. Abdomen: Normal bowel sounds, soft, non-tender, no abdominal mass palpated Skin: Normal skin color, turgor, and pigmentation, no rash, thickening Neurological: Patient is awake, alert, and oriented. Pleasant and cooperative. Answers questions appropriately. Speech is clear. Normal movement in all 4 extremities. Results & Data ([facility]) Vital Signs (Past 12 Hours) Vital Signs Temp Pulse Resp BP BP Pulse Ox 11/15/20 07:00 97.7 F 79 18 123/82 96 11/14/20 22:57 97.9 F 66 16 118/78 94 PG Care Time/CCT Total # of Minutes Spent Total Time Spent with Patient: Total time spent is greater than 50% in coordination of care (as documented) at patient's floor/unit and/or counseling patient: Heart Failure Data/Metrics Heart Failure Type: Diastolic Evidenced Based Beta Kinza Therapy Beta Kinza Therapy: Not Indicated SANTI/ARB/ARNI Therapy SANTI/ARB/ARNI Therapy: Not Indicated Aldosterone Antagonist Therapy Aldosterone Antagonist Therapy: Not Indicated Coding Level of Care Code 50709 Subseq Hosp Care Lvl 3 Diagnoses Acute on chronic diastolic (congestive) heart failure I50.33 Hyponatremia E87.1 Failure to thrive Alcohol use Z78.9 VALERIE (obstructive sleep apnea) G47.33 Paroxysmal a-fib I48.0
--- NOTE | 2020-11-15 11:32 | Ultrasound Report ---
US gallbladder CLINICAL HISTORY: 60 years-old Female presenting with elevated TB, Alk phos, R sided pain. TECHNIQUE: Real-time grayscale ultrasound imaging of the upper abdomen was performed for a focused ev aluation at the site of clinical concern. COMPARISON: None. FINDINGS: Liver is slightly increase in size measuring 18 cm. Normal echogenicity of liver parenchyma without f ocal lesions or intrahepatic biliary dilatation. Gallbladder is fluid-filled without evidence of intraluminal calculi. Normal gallbladder wall. No reji dence of pericholecystic edema. Common bile duct is normal measuring 0.4 cm in diameter. Pancreas shows no evidence of focal lesions. Right kidney shows no evidence of hydronephrosis and small 0.7 x 0.7 hypoechoic structure within its upper-mid pole representing small cysts. IMPRESSION: 1. Mild hepatomegaly. 2. No cholelithiasis/cholecystitis. Normal common bile duct. No intrahepatic biliary dilatation. 3. Small right renal cyst. ACT 112: Negative or not required by law. Electronically signed by: Milly Sanchez DO 11/15/2020 11:31 AM
[2020-11-15] MEDS ORDERED: MAGNESIUM CITRATE 296 ML/BTL ONE (12:43)
[2020-11-15] MEDS: CYANOCOBALAMIN 500 MCG TABLET (VITAMIN B-12) PO SCH (13:04)
[2020-11-15] MEDS: CHOLECALCIFEROL 1,000 UNITS 25 MCG TAB PO SCH (13:04)
[2020-11-15] MEDS ORDERED: IRON SUCROSE 300 MG in SODIUM CHLORIDE 0.9% 250 ML IV ONE (18:00)
[2020-11-15] MEDS: LIDOCAINE 5% 1 PATCH TD SCH (21:45)
[2020-11-15] MEDS: ATORVASTATIN 40 MG TAB PO SCH (21:46)
[2020-11-15] MEDS: MONTELUKAST SODIUM 10 MG TABLET PO SCH (21:47)
[2020-11-15] MEDS: APIXABAN 5 MG TABLET PO SCH (23:03)
[2020-11-16] MEDS: ACETAMINOPHEN 325 MG TAB PO PRN (02:36)
[2020-11-16] MEDS: LEVOTHYROXINE SODIUM 125 MCG TABLET PO SCH (05:38)
[2020-11-16 05:41] LABS: Hematocrit (blood only) 30.1 % (37-47); Hemoglobin 9.5 g/dL (12.0-16.0); Mean Corpuscular Hemoglobin 32.1 pg (25-34); Mean Corpuscular Hgb Conc 31.6 g/dL (32-36); Mean Corpuscular Volume 101.7 fL (80-100); Mean Platelet Volume 8.6 fL (7.4-10.4); Platelet Count 322 K/uL (130-400); RDW Coefficient of Variation 16.2 % (11.5-14.5); RDW Standard Deviation 58.7 fL (36.4-46.3); Red Blood Count 2.96 M/uL (4.2-5.4); White Blood Count 4.48 K/uL (4.8-10.8)
[2020-11-16 05:59] LABS: BUN Creatinine Ratio 18.7 (10-20); Bilirubin Direct 0.3 mg/dl (0-0.2); Calcium 8.7 mg/dl (8.5-10.1); Creatinine Clr Calc Pharmacy 117.2 ml/min; Est GFR (African American) 119.1 ml/min; Est GFR (Non-African American) 102.8 ml/min; Magnesium 1.9 mg/dl (1.8-2.4); Potassium 3.8 mmol/L (3.5-5.1)
[2020-11-16 06:01] LABS: Bilirubin,Total 0.9 mg/dl (0.2-1); Total Protein 6.9 gm/dl (6.4-8.2)
--- NOTE | 2020-11-16 08:20 | Hospitalist Progress Note ---
Date of Service November 16, 2020 Assessment & Plan Admission and Anticipated Discharge Date Admission Date: November 06, 2020 Results & Data Results & Data ([facility]) Vital Signs (Past 12 Hours) Vital Signs Temp Pulse Resp BP BP Pulse Ox 11/16/20 08:08 36.6 C 66 16 127/74 93 11/15/20 21:40 80 145/91 H 11/15/20 21:07 36.7 C 76 16 120/70 93 Laboratory Results 11/16/20 11/16/20 11/15/20 Range/Units 05:26 05:26 20:39 WBC 4.48 L (4.8-10.8) K/uL RBC 2.96 L (4.2-5.4) M/uL Hgb 9.5 L (12.0-16.0) g/dL Hct 30.1 L (37-47) % MCV 101.7 H (80-100) fL MCH 32.1 (25-34) pg MCHC 31.6 L (32-36) g/dL RDW Std Deviation 58.7 H (36.4-46.3) fL RDW Coeff of Yazmin 16.2 H (11.5-14.5) % Plt Count 322 (130-400) K/uL MPV 8.6 (7.4-10.4) fL Sodium 138 (136-145) mmol/L Potassium 3.8 (3.5-5.1) mmol/L Chloride 103 (98-107) mmol/L Carbon Dioxide 29 (21-32) mmol/L Anion Gap 6.0 (3-11) BUN 10 (7-18) mg/dl Creatinine 0.56 L (0.6-1.2) mg/dl Est Cr Clr Drug Dosing 117.2 ml/min Est GFR ( Amer) 119.1 ml/min Est GFR (Non-Af Amer) 102.8 ml/min BUN/Creatinine Ratio 18.7 (10-20) Glucose 94 (70-99) mg/dl POC Glucose 102 H (70-99) mg/dl Calcium 8.7 (8.5-10.1) mg/dl Magnesium 1.9 (1.8-2.4) mg/dl Total Bilirubin 0.9 (0.2-1) mg/dl Direct Bilirubin 0.3 H (0-0.2) mg/dl AST 49 H (15-37) U/L ALT 35 (12-78) U/L Alkaline Phosphatase 189 H (45-117) U/L Total Protein 6.9 (6.4-8.2) gm/dl Albumin 3.0 L (3.4-5.0) gm/dl 11/15/20 11/15/20 Range/Units 17:18 12:00 WBC (4.8-10.8) K/uL RBC (4.2-5.4) M/uL Hgb (12.0-16.0) g/dL Hct (37-47) % MCV (80-100) fL MCH (25-34) pg MCHC (32-36) g/dL RDW Std Deviation (36.4-46.3) fL RDW Coeff of Yazmin (11.5-14.5) % Plt Count (130-400) K/uL MPV (7.4-10.4) fL Sodium (136-145) mmol/L Potassium (3.5-5.1) mmol/L Chloride (98-107) mmol/L Carbon Dioxide (21-32) mmol/L Anion Gap (3-11) BUN (7-18) mg/dl Creatinine (0.6-1.2) mg/dl Est Cr Clr Drug Dosing ml/min Est GFR ( Amer) ml/min Est GFR (Non-Af Amer) ml/min BUN/Creatinine Ratio (10-20) Glucose (70-99) mg/dl POC Glucose 101 H 115 H (70-99) mg/dl Calcium (8.5-10.1) mg/dl Magnesium (1.8-2.4) mg/dl Total Bilirubin (0.2-1) mg/dl Direct Bilirubin (0-0.2) mg/dl AST (15-37) U/L ALT (12-78) U/L Alkaline Phosphatase (45-117) U/L Total Protein (6.4-8.2) gm/dl Albumin (3.4-5.0) gm/dl PG Care Time/CCT Total # of Minutes Spent Total Time Spent with Patient: Total time spent is greater than 50% in coordination of care (as documented) at patient's floor/unit and/or counseling patient: Coding
[2020-11-16] MEDS: INSULIN ASPART 100 UNITS/ML 3 ML PEN SC SCH ×2 (09:13→12:56)
[2020-11-16] MEDS: FOLIC ACID 1 MG in SYRINGE 9.8 ML IV SCH (09:15)
[2020-11-16] MEDS: MULTIVITAMIN CHEWABLE TAB PO SCH (09:16)
[2020-11-16] MEDS: busPIRone 5 MG TAB PO SCH (09:16)
[2020-11-16] MEDS: CETIRIZINE HCL 10 MG TABLET PO SCH (09:16)
[2020-11-16] MEDS: PANTOprazole 40 MG TAB PO SCH (09:16)
[2020-11-16] MEDS: METOPROLOL SUCC 50MG EXT REL TAB PO SCH (09:16)
[2020-11-16] MEDS: MAGNESIUM OXIDE 400 MG TAB PO SCH (09:16)
[2020-11-16] MEDS: VENLAFAXINE HCL XR 150 MG CAPXR PO SCH (09:17)
[2020-11-16] MEDS: AMIODARONE 200 MG TAB PO SCH (09:17)
[2020-11-16] MEDS: dilTIAZem HCL 180 MG CAPCR PO SCH (09:17)
[2020-11-16] MEDS: FUROSEMIDE 40 MG TAB PO SCH (09:17)
[2020-11-16] MEDS: THIAMINE HCL 100 MG TAB PO SCH (09:18)
[2020-11-16] MEDS: APIXABAN 5 MG TABLET PO SCH (09:18)
[2020-11-16] MEDS: traMADol HCL 50 MG TABLET PO SCH (09:27)
[2020-11-16] MEDS: LORazepam 0.5 MG TAB PO PRN (09:27)
[2020-11-16] MEDS: POTASSIUM CHLORIDE CRTAB 20 MEQ TABCR PO SCH (09:28)
[2020-11-16] MEDS: CHOLECALCIFEROL 1,000 UNITS 25 MCG TAB PO SCH (11:49)
[2020-11-16] MEDS: CYANOCOBALAMIN 500 MCG TABLET (VITAMIN B-12) PO SCH (11:49)
--- NOTE | 2020-11-16 11:50 | Discharge Summary ---
Date of Service November 16, 2020 Admission HPI Per Admitting Provider This is a 60-year-old female with past medical history of type 2 diabetes mellitus with polyneuropathy, morbid obesity, hypothyroidism, sleep apnea that presents today status post fall. Patient is pleasant a good historian. Patient is essentially homebound in her apartment. She was previously in the hospital and subsequently [facility] weakness. She feels she did well and was discharged home sometime in June. She had home therapy through the month of July. However, after this the patient was essentially alone without any assistance. She tells me she has friend come over frequently to make her some food and help her with bills but otherwise she has no home nursing or other agency help. She tells me at this point she has been having more difficulty transferring to wheelchair and lately has been strictly chair bound in her living room. She tells me she does get her medications and has only missed very occasional dose. She is on home oxygen at night but lately has not been able to get to the oxygen canister which is in the kitchen. She tells me she has been getting progressively more weak over the past month. She is the point she can no longer move at all and feels stiff. She is noticed increasing edema in her lower extremities, especially her thighs. She attempted to get out of her chair today and slid to the floor. She did not strike her head or lose consciousness. She was unable to get up under her own power. At this point, she called 911 and was brought to the emergency room. Per ER physician, EMS found that the house was in a poor state. Patient was si tting her own urine and feces. There is definite concern about the patient returning to this environment. At my evaluation, the patient is awake and alert. She does speak frankly about her situation and understand that she needs help. She is agreeable to assisted living or some other placement on discharge if this can be arranged. Symptomatically, she notes that she has worsening shortness of breath in addition to her weakness. She denies any chest pain or palpitations. She has worsening edema and understands that she is likely malnourished. She is in no acute cardiopulmonary distress. Admission Exam Per Admitting Provider Constitutional: cooperative; no acute distress Eyes: b/l exopthalamos Neck: trachea midline, no thyromegaly Respiratory: normal respiratory effort Auscultation: + diminished lung sounds and + rhonchi; no crackles, no rales and no wheezes Cardiovascular: Rate/Rhythm: regular rate and regular rhythm Heart Sounds: normal S1, normal S2 and + murmur Gastrointestinal (Abdomen): Inspection/Auscultation: abdomen normal to inspection Percussion/Palpation: abdomen soft; abdomen nontender, no guarding, abdomen not rigid and no hepatosplenomegaly Musculoskeletal: Atrophied lower extremities, 3+ pitting edema to upper thighs bilaterally Skin: no rashes, warm and dry Principal Diagnosis Acute on Chronic Diastolic Heart Failure, Hyponatremia Discharge Exam Constitutional well developed, + obese and comfortable; no acute distress Eyes + anicteric sclerae and PERRL ENMT Mouth: + poor dentition Neck trachea midline, no thyromegaly Respiratory normal respiratory effort; no respiratory distress, no labored breathing and no cough Auscultation: + diminished lung sounds; no wheezes Cardiovascular Rate/Rhythm: regular rate and regular rhythm Heart Sounds: normal S1 and normal S2; no murmur Extremities: normal capillary refill and + edema (trace b/l) Gastrointestinal (Abdomen) normal bowel sounds, soft, nontender, no hepatosplenomegaly Musculoskeletal Head/Neck/Chest: normocephalic, head atraumatic and neck supple Extremities: + abnormal strength; no cyanosis, no clubbing and no petechiae Knee: + knee abnormal to inspection (right knee bruise laterally, incision from prior TKA) multiple amputations to several toes, no evidence of infection/erythema/open or draining wounds Skin + crusts, + dry skin and + erythema Neurologic CN's II-XI intact bilaterally, moves all extremities and awake; no focal motor deficits Psychiatric A+Ox3, euthymic affect (anxious about going home) Genitourinary no medel Lymphatic no cervical or axillary lymphadenopathy Discharge Data Allergies Allergy/AdvReac Type Severity Reaction Status Date / Time Penicillins Allergy Unknown UNKNOWN Verified 11/20/20 14:04 bacitracin Allergy Unknown Verified 11/20/20 14:04 [From Neosporin ([id number])] neomycin Allergy Unknown Verified 11/20/20 14:04 [From Neosporin ([id number])] polymyxin B Allergy Unknown Verified 11/20/20 14:04 [From Neosporin ([id number])] Consultations 11/06/20 10:24 ED Decision to Admit Stat 11/06/20 16:19 Consult Nephrology Routine 11/12/20 11:31 [facility] Referral Routine Ordered Studies Chest X-Ray 11/06/20 07:48 XR chest 1V portable CLINICAL HISTORY: weakness COMPARISON STUDY: November 08, 2019 FINDINGS: No pneumothorax. No pleural effusion. Patchy airspace opacities are seen within bilateral lower lungs. Diffuse reticular nodular prominence of pulmonary interstitium is worsened since prior. Cardiomediastinal silhouette is mildly enlarged. Bilateral shelly are prominent. Pulmonary vasculature is indistinct.. Osseous structures: Unremarkable. Vertebral bodies are not well seen. IMPRESSION: 1. Enlarged cardiomediastinal silhouette, possible pulmonary edema. 2. Opacities at bilateral lower lungs might represent atelectasis or consolidation. ACT 112: Negative or not required by law. The above report was generated using voice recognition software. It may contain grammatical, syntax or spelling errors. Electronically signed by: Milly Sanchez DO 11/06/2020 8:35 AM Chest X-Ray 11/13/20 08:11 SINGLE VIEW CHEST CLINICAL HISTORY: Chest discomfort. FINDINGS: An AP, portable, upright chest radiograph is compared to study dated 11/06/2020. Correlation is made with chest CT dated 02/02/2018. The heart is enlarged. There is pulmonary vascular congestion. Atelectasis is seen at the lung bases. No airspace consolidation or large pleural effusion is identified. No pneumothorax is seen. The skeletal structures are osteopenic. The bony thorax is grossly intact. IMPRESSION: 1. Cardiomegaly with pulmonary vascular congestion. 2. No airspace consolidation or large pleural effusion is identified. ACT 112: Negative or not required by law. Electronically signed by: Mitch Stone M.D. 11/13/2020 9:46 AM Abdomen/Pelvis CT 11/13/20 12:11 CT abd pelvis IV con only CLINICAL HISTORY: anemia, drop in hgb COMPARISON STUDY: November 08, 2019 TECHNIQUE: A dose lowering technique was utilized adhering to the principles of ALARA. CT DOSE: 1409.52 mGy.cm FINDINGS: Limited exam due to beam hardening artifact from patient's body habitus Lower chest: Small atelectasis at dependent portions of bilateral lower lobes. Trace right pleural effusion.. Liver: The contrast-enhanced liver is normal in size, contour, and attenuation. There is no intrahepatic biliary ductal dilatation. The hepatic veins and portal veins are patent. Gallbladder: Is partially collapsed. Spleen: Normal in size and attenuation. Pancreas: Unremarkable. Adrenal glands: Unremarkable. Kidneys: There is symmetric renal cortical enhancement. The kidneys are normal in size without hydronephrosis. Pelvic viscera: Urinary bladder is decompressed with Medel balloon which limits evaluation. Calcified uterine lesions, likely represent fibroids are seen, largest is measured 3.7 cm in size and unchanged since prior. Bowel: Loops of small bowel are nondilated. Colonic loops are nondilated and extensively filled with stool. Appendix is not well seen. Peritoneum: No free intraperitoneal gas is seen. Diffuse mesenteric edema is more prominent since prior study. No definite ascites is seen. Vasculature: Abdominal aorta is normal in caliber, tortuous with scattered calcifications of its wall. Adenopathy: A few retroperitoneal lymph nodes are seen, measuring less than 1 cm in short axis, nonpathological by CT size criteria. Skeletal structures: Diffuse osteopenia. Multilevel degenerative changes of the spine. Interval development of compression fracture deformity of L3 and 5 mm retropulsion of the posterior fractured fragment toward central canal. Diffuse soft tissue edema is again seen. Focal areas of increase attenuation are partially visualized within right chest wall (3/1), largest is measuring 5.2 x 4.2 cm in size, might represent subcutaneous/soft tissue hematoma. IMPRESSION: 1. Partially visualized hypoattenuating lesion within soft tissue overlying right inferior chest wall might represent hematoma. Please correlate above- mentioned findings with direct inspection and possible ultrasound or CT of the chest. 2. Interval development of compression fracture deformity of L3 with 5 mm retropulsion of the posterior fractured fragment to the central canal. Please correlate above-mentioned findings with clinical presentation of back pain. Further evaluation with MRI of the lumbar spine might be considered. 3. Diffuse soft tissue edema is again seen. Mild interval prominence of peritoneal edema. No definite ascites is seen. 4. Small right pleural effusion. Compressive atelectasis at dependent portions of bilateral lower lobes. 5. Loops of large bowel with extensive stool content. 6. The rest of findings as above. ACT 112: Negative or not required by law. The above report was generated using voice recognition software. It may contain grammatical, syntax or spelling errors. Electronically signed by: Milly Sanchez DO 11/13/2020 2:09 PM Chest X-Ray 11/15/20 07:00 XR chest 1V portable HISTORY: Shortness of breath. follow up congestion COMPARISON: 11/13/2020. FINDINGS: Slight improvement in the mild central pulmonary vascular congestion. No overt pulmonary edema. Left basilar linear density favors atelectasis or scarring. This remains unchanged. No new focal lung consolidations. No pleural effusions. No pneumothorax. The heart remains enlarged. IMPRESSION: Slight improvement in the mild pulmonary vascular congestion. ACT 112: Negative or not required by law. Electronically signed by: Aron Mcelroy M.D. 11/15/2020 8:23 AM Gallbladder Ultrasound 11/15/20 09:00 US gallbladder CLINICAL HISTORY: 60 years-old Female presenting with elevated TB, Alk phos, R sided pain. TECHNIQUE: Real-time grayscale ultrasound imaging of the upper abdomen was performed for a focused evaluation at the site of clinical concern. COMPARISON: None. FINDINGS: Liver is slightly increase in size measuring 18 cm. Normal echogenicity of liver parenchyma without focal lesions or intrahepatic biliary dilatation. Gallbladder is fluid-filled without evidence of intraluminal calculi. Normal gallbladder wall. No evidence of pericholecystic edema. Common bile duct is normal measuring 0.4 cm in diameter. Pancreas shows no evidence of focal lesions. Right kidney shows no evidence of hydronephrosis and small 0.7 x 0.7 hypoechoic structure within its upper-mid pole representing small cysts. IMPRESSION: 1. Mild hepatomegaly. 2. No cholelithiasis/cholecystitis. Normal common bile duct. No intrahepatic biliary dilatation. 3. Small right renal cyst. ACT 112: Negative or not required by law. Electronically signed by: Milly Sanchez DO 11/15/2020 11:31 AM Hospital Course (1) Acute on chronic diastolic (congestive) heart failure: BNP 4032 on admission Echo with preserved EF with grade III diastolic dysfunction, biatrial dilation, elevated pulm pressures Initially requiring supplemental oxygen to maintain saturations, however weaned to room air with diuresis and remained stable responded well to Lasix IV , now on PO as below Wt 147kg on admission (suspect some inaccuracy though due to inability to obtain standing scale initially) Continued to diuresis well on Lasix 40mg PO BID and will have close follow-up with CHF clinic for monitoring of weight/adjustment -- may be able to back down to once daily +/- spironolactone or just once daily lasix once her thyroid function normalized but she tolerated 40mg BID for days and kidney function remained stable Diuresis for net negative 29.9L during hospitalization and she was continued on 1800ml/day fluid restriction (see hyponatremia below) and recommended continuing this at rehab and home. Wt 90.9kg for past two days prior to d/c Also required supplemental iron (venofer x 3 doses) and 1 unit of PRBC for hematoma to R axillae from "popped" IV site 11/09 likely cause for her anemia (h owever there were reports of a fall prior to admission "sliding down from chair" but denied trauma) . negative fecal occult and fairly remote EGD/scope with Dr. Coyle for anemia in the past without abnormality. Patient with need for supplemental oxygen at night to be continued and rec'd for formal outpatient sleep study with patient. To follow up with PCP regarding this. 93% on room air prior to d/c and denied shortness of breath (did have anxiety about going to alf given deaths reported last year) Also noted hypothyroidism along with her hyponatremia and recent adjustment in levothyroxine from 100mcg to 125mcg daily by PCP (however patient reported taking the 100mcg tablets still) and continued 125mcg daily at discharge with recommendations for repeat thyroid function testing 4-6 weeks and further adjustments/increases as needed Recs for repeat CBC/BMP in 2-3 days at rehab to ensure stability (2) Anemia: Hgb 11.3 on admission -- also with hx iron deficiency anemia. (Also etoh and on B12 folate and thiamine supplementation with normal B12 and folate levels) dropped to 9.0 on 11/07 and no repeat until 11/13 which showed drop to 7.9 despite continued diuresis as above History of normal EGD and colonoscopy by Dr. Coyle 2019 Fecal occult negative B12/folate wnl iron studies were obtained which showed iron low normal 45 with a transferrin percent sat 14 and a ferritin of 78 Hemoglobin dropped despite diuresis to a low of 7.3 and was symptomatic with this. Trop <0.015 however did give 1u PRBC for symptomatic anemia/palpitations/back in afib (rates controlled) CT with a right chest wall hematoma 5.2 x 4.2 cm likely cause of her blood loss --> Upon review, patient had reported IV site in her right axillary upper arm area which was noted to have an issue on 11 09 when it "popped" but there were reports of her sliding from recliner to floor and too weak to get back up reported on admission (also had been drinking 3 vodka/seltzers daily due to boredom and being at home alone) Eliquis held temporarily, hematoma decreased in size and hemoglobin remained stable Eliquis resumed and hgb 9.5 on repeat (up from 8.9 previously) after 3rd dose of Venofer Started and continued protonix 40mg daily as well for reflux/gi proph especially given drinking hx /risk for gastritis --> Also provided B12/folate supplementation as well as thiamine given etoh use and encouraged continued cessation at discharge Rec repeat CBC in 2-3 days at rehab to ensure stability (3) Paroxysmal a-fib: Patient is currently in rate controlled atrial fibrillation --> was NSR previous day TSH elevated -- see below EKG obtained when anemia and symptomatic and revealed patient back in afib, but rate controlled Replacement of Mag, iron, electrolytes as above Rate controlled and appeared to be regular prior to discharge Continued on metoprolol and amiodarone Anticoagulated with Eliquis -- held temporarily as above and resumed with hgb stable (4) Hypothyroid: TSH elevated to 7.08 -- had been taking 100mcg Synthroid at home instead of 125mcg dose Continued on 125mcg and encouraged compliance and repeat TFT 4-6wk for further adjustments with PCP (5) Hypomagnesemia: checked given feeling poor, low K, afib on EKG Mag low at 1.2 --> IV replacement ordered Repeat within normal limits and remained stable on PPI (6) Acute hyponatremia: With significant edema-=-> worsening diastolic heart failure (BNP 4032 on 11/06) Also contributing: her Tea/ toast alcoholic diet (low serum awesome with lower urine awesome on admission suggesting excessive free water volume overload status), hypothyroidism (see above), and tramadol use for pain Diuresis as above with 40 Lasix twice daily P0 Net -29L during admission Na 138 prior to discharge Continued on diuretics as above Continued fluid restriction (7) Acute UTI: urine culture with Klebsiella Was given Rocephin with transition to cefdinir and completed a 7-day course of treatment while inpatient No burning or fevers since removal of catheter on 11/14 (8) Hyperkalemia: K came down with Lasix Lasix 40mg BID, give Pot Chloride 20mEq daily --> continued at discharge K remained stable for days (9) Failure to thrive: Likely multifactorial, consider malnutrition, edema as documented, hypothyroidism, morbid obesity, and chronic deconditioning PT/OT evaluation with recs for rehab. Arranged for transportation this afternoon 11/16 (10) Diabetes mellitus with diabetic polyneuropathy: Sliding scale insulin Diabetic diet, monitor for hypoglycemia, no episodes Resumed home metformin 1g BID at discharge (repeat BMP as above to ensure kidney function stable) (11) Hypercholesteremia: Atorvastatin 40 mg daily (12) Hypertension: Blood pressure currently stable on current medications Continued diltiazem 360mg daily, metoprolol succinate 100mg BID Lasix 40mg BID as above for diuresis BP 127/74 prior to d/c (13) Asthma: O2 support as ordered. on rescue albuterol inhaler at home Overnight pulse ox for likely underlying sleep apnea +++-- will need formal outpt sleep study pending pulse ox overnight. O2 HS via NC @2L/min --> centre care to assist with setting up at d/c from rehab (14) Anxiety: takes Ativan 1mg BID at home Utilized 0.5mg TID prn while inpatient (15) Hematoma: Secondary to IV vs fall travel pta (see above) Decreased in size, less tender. contnue ice CT as above Hemoglobin stable with eliquis resumed as above PT/OT as noted above Diuretics continued, and patient to have follow up with CHF clinic and close monitoring of diuretics/adjustments as needed Of note, if ongoing back pain/weakness, it was discussed with the patient that she should undergo further imaging for evaluation. She declined waiting to go for MRI while inpatient and wanted to recover from current hospitalization and see how strength improved with rehab and can follow up for persistent symptoms. She also was drinking 3/day and recommended avoidance of this and rather fluid restriction with low sodium diet and prevention of further falls in the future. Patient did seem motivated and was stable for discharge this afternoon to [facility]. Total Time Total Time Spent Total Time Spent (In Minutes): 90 Discharge Plan Discharge Items Patient Disposition: Transfer Detention Fac Reason For Visit: FALL Discharge Diagnosis: Congestive heart failure, fall Goals: You have been hospitalized for an acute medical problem. During your stay at [facility], we have made an effort to correct the problem that brought you to the hospital while keeping you as comfortable as possible. Medications were used to bring your condition under control and your discharge instructions will include directions for any medications you should take after leaving the hospital. Please make sure you see your Primary Care Provider as part of your follow up plan. Activity: As commented below Activity Comment: Advance as tolerated with therapy Non-emergency contact: Primary Care Provider and Demonstrator [employer] Call non-emergency contact if: you have any medication questions, your symptoms worsen and your pain is not controlled Follow-up/Referrals: Parveen Fishman MD [Primary Care Provider] - 11/23/20 11:15 am ([facility]) Promise Joaquin PA-C [Physician Fisheries Diver] - 11/20/20 2:00 pm (Congestive Heart Failure Program Appointment Information Early follow up is essential to managing your heart failure. An appointment has been scheduled for you with the [facility] Heart Failure Program within 7 days of discharge. Anticipate this visit to be 30-60 minutes long. Please expect a retail greeting card merchandiser phone call from one of our nurses approximately 48 hours from discharge. They will also be placing an order for lab work to be completed 1-2 days prior to your heart failure follow up appointment. Please be sure to have this done so we can go over the results when you come in. Office Location The cardiology office building is located in front of the hospital at [address] Bring the following with you to your follow-up doctor appointments: Please bring your daily weight log any discharge paperwork all of your medication bottles with you to this visit. ) Diet: Carb Consistent or DM2 and Heart Healthy Fluids: 1500ml (6 cups) Addtl Attending Provider Instructions: You have been hospitalized after a fall and found to have congestive heart failure which was likely gradual over period of time and why you felt so weak. Ultrasound of your heart was performed which showed diastolic heart failure (incomplete filling of the heart which leads to backup of fluid) and this is tyreated with diuretics. Consultation with the congestive heart failure clinic, Zahraa Joaquin, was undertaken and decision was made to continue Lasix 40 mg by mouth twice daily to prevent fluid accumulation and to keep you at a normal volume status given excellent diuresis with above. She will follow-up with you as an outpatient basis about alterations to diuretics and monitor your daily weights. See instructions below regarding monitoring your weight. You should also continue a 1500 cc fluid restriction daily to prevent excess volume and continue to monitor and follow a low-sodium diet. While on Lasix therapy will also take 20 mEq of potassium daily as Lasix and diuretics because potassium levels and you are. stable with his current dose You are also found to have UTI and completed a course of antibiotics for this while inpatient and this is resolved.. As discussed previously your thyroid was undertreated and you should remain on 125 mcg of Synthroid daily taken in the morning on an empty stomach and should have a repeat thyroid function test performed by her primary care provider in the next 4 weeks see if you need further adjustments. This can also contribute to weight gain and there may be a possibility about decreasing her Lasix once your thyroid is correctly treated. You had a hematoma following an IV site issue and your Eliquis was held given low blood counts and was resumed following stability and replacement of your low iron with three doses of IV iron while inpatient along with 1 unit of blood. Your hemoglobin has remained stable but you should have repeat blood counts drawn along with kidney function testing in another 2 days to ensure that all blood counts are stable on Eliquis and kidney function remained stable on your current dose of Lasix.. You are also started and continued on a Protonix 40 mg daily to help with reflux type symptoms. As discussed your back symptoms may also be contributing to weakness however you did want to hold off on back imaging at this time until you are currently resolved from current illness. Given set up for rehab center care to help with improvement of your strength.. If weakness continues to be an issue after URI or dry weight with therapy you may want to consider additional imaging with MRI of your lower back to see if this could be contributing. Conservative treatments however if progressed may need to consider consultation with orthopedics in the future. Follow-up with your primary care provider as well as heart failure clinic in the next 1 to 2 weeks to monitor your progress. Please note it is very important to avoid alcohol as this can be unnecessary fluids and lead to worsening of your sodium level. Please return to the emergency department with any increased shortness of breath, chest pain, nausea, vomiting or any other symptoms that are concerning for you. Has been a pleasure of being part of the medical team in the hospital. Take care! [employer] Operator Provider Instructions: Call your Primary Care doctor if any of the following symptoms or problems start or get worse: * Shortness of breath or difficulty breathing * Wake up at night short of breath * Chest pain * Cough * Swelling of your hands, feet, or legs * More fatigued or tired with your normal activity * Palpitations - sudden fast heart beats WEIGHT * Weigh yourself every morning after using the bathroom. * Use the same scale. * Wear the same amount of clothing. * Write your weight down on a chart. * Call your Primary Care doctor if you gain more than 2-3 pounds in 1-2 days. MEDICATIONS * Use this discharge instruction sheet for medication instructions. * Take your medications at the time your doctor ordered. * Do not skip a dose of your medicines. * If you miss a dose of medicine, take it as soon as possible, but DO NOT DOUBLE A DOSE. * Read your medicine information when you get home. * Know all of the side effects of your medicine. If in doubt, ask your pharmacist * Call your Primary Care doctor's office if you have any side effects. * Be sure all of your doctors know what medicine and herbs you take (including cold, flu, and herbal medicine). Take the following with you to your follow-up doctor appointments: * Weight Chart * Medication List * List of questions Do not drink excessive alcohol, beer or wine. Pending Studies at Discharge: No Stand-Alone Forms: My [facility] Skilled Items Patient informed of condition?: Yes DNR: No Discharge Level of Care: Skilled Communicable Disease: No Discharge Prognosis: Improving Lines: None Urinary Catheter: No Medications and DC Order Prescriptions: New furosemide 40 mg Tablet 40 mg PO BID Qty: 60 RF: 0 thiamine HCl (vitamin B1) [Vitamin B-1] 100 mg Tablet 100 mg PO QAM Qty: 30 RF: 0 potassium chloride [Klor-Con M20] 20 mEq Tablet,Er Particles/Crystals 20 meq PO QAM Qty: 30 RF: 0 pantoprazole 40 mg Tablet,Delayed Release (Dr/Ec) 40 mg PO QAM Qty: 30 RF: 0 Continued cholecalciferol (vitamin D3) 1,000 unit capsule 1,000 units PO 1200 RF: 0 cyanocobalamin (vitamin B-12) 1,000 mcg capsule 1,000 mcg PO 1200 RF: 0 magnesium oxide 400 mg magnesium capsule 400 mg PO TIDM RF: 0 atorvastatin 40 mg tablet 40 mg PO QPM Qty: 90 RF: 3 Eliquis 5 mg tablet 5 mg PO BID Qty: 180 RF: 3 (DME) Aquacel Foam 8 X 7 " bandage See Rx Instructions .ROUTE .MEDSUPPLY Qty: 5 RF: 5 (DME) OneTouch Verio test strips Strip See Rx Instructions .ROUTE .MEDSUPPLY Qty: 100 RF: 3 (DME) blood-glucose meter [OneTouch Verio Meter] Misc See Rx Instructions .ROUTE .MEDSUPPLY Qty: 1 RF: 0 (DME) lancets [OneTouch UltraSoft Lancets] Misc See Rx Instructions .ROUTE .MEDSUPPLY Qty: 200 RF: 2 levothyroxine 125 mcg tablet 125 mcg PO DAILY Qty: 30 RF: 2 buspirone 10 mg tablet 10 mg PO BID Qty: 60 RF: 5 venlafaxine 150 mg capsule,extended release 24hr 150 mg PO QAM Qty: 30 RF: 5 amiodarone 200 mg tablet 200 mg PO QAM Qty: 30 RF: 5 diltiazem HCl 360 mg capsule,extended release 24hr 360 mg PO DAILY Qty: 30 RF: 7 metoprolol succinate 100 mg tablet extended release 24 hr 100 mg PO BID Qty: 60 RF: 0 lorazepam 0.5 mg tablet 0.5 mg PO BID PRN (Reason: anxiety) Qty: 60 RF: 0 tramadol 50 mg tablet 50 mg PO BID Qty: 60 RF: 0 acetaminophen 325 mg Tablet 650 mg PO Q4H PRN (Reason: pain) Qty: 1 RF: 0 albuterol sulfate 90 mcg/actuation HFA aerosol inhaler 2 puffs inhalation Q4H PRN (Reason: Shortness Of Breath Or Wheezing) RF: 0 metformin 1,000 mg tablet 1,000 mg PO BIDM RF: 0 montelukast 10 mg tablet 10 mg PO HS RF: 0 Discontinued sulfamethoxazole-trimethoprim [Bactrim DS] 800-160 mg tablet 1 tab PO BID Qty: 60 RF: 3 Discharge Orders: Discharge Order (Routine); Ordered 11/16/20 Ordered By: Leslie Rivas/Other Patient Handouts: Heart Failure Making Changes to ..., Nutrition and MyPlate: Protein Foods, ED Low-Salt Diet Admission Data Admit Date/Time: 11/06/20 11:42 Attending Provider: Nicky Vaughn Admit Provider: Endy Mao Primary Care Provider: Parveen Fishman Other Providers: [facility] ; [facility] ; Endy Mao ; Sushil Jaramillo ; Promise Joaquin Other Interventions: Discharge Summary Assessment (RN) Last Done: 11/16/20 13:16 Supervising Physician Co-Signing Physician Notes PA Supervision Note: I personally saw and examined the patient. I verified all vega points and agree with BALTAZAR Murray with the following exceptions and/or additions: S-patient improved, denies shortness of breath, has diuresed quite a bit. O- Vitals reviewed Gen: AAOx3, NAD, obese HEENT: Anicteric sclerae, EOMI CV: RRR no mgr nl S1S2 Pulm: CTAB no wcr A/[id number]-old female here with acute on chronic diastolic CHF, hyponatremia, otherwise as above Much improved after diuresis, stable for discharge Coding Level of Care Code D/C DAY MANAGEMENT >30 MINS Diagnoses Acute on chronic diastolic (congestive) heart failure I50.33 Anemia D64.9 Paroxysmal a-fib I48.0 Hypothyroid E03.9 Hypothyroidism type: acquired Hypomagnesemia E83.42 Acute hyponatremia E87.1 Acute UTI N39.0 Hyperkalemia E87.5 Failure to thrive Diabetes mellitus with diabetic polyneuropathy E11.42 Hypercholesteremia E78.00 Hypertension I10 Asthma J45.20 Asthma complication type: unspecified Asthma persistence: intermittent Asthma severity: mild Anxiety F41.9 Hematoma T14.8XXA
== END 2020-11-16 14:15 | DRG 292 ==
LOC: ED 07:28 → SUATTDRO 11:42 → EDINP 11:42 → 2E 15:52 → 3W 11-08 11:28

== ENCOUNTER 2021-08-21 15:57 | Inpatient (IN) ==
[2021-08-21] MEDS ORDERED: methylPREDNISolone 125 MG/2 ML VIAL IV STA (16:54)
[2021-08-21] MEDS ORDERED: ALBUT/IPRATROP 3MG/0.5MG NEB 3 ML VIAL NEB STA (16:54)
[2021-08-21 17:10] LABS: Basophils # (auto) 0.01 K/uL (0-0.2); Basophils % (auto) 0.3 %; Eosinophils # (auto) 0.03 K/uL (0-0.5); Eosinophils % (auto) 0.8 %; Hematocrit (blood only) 32.9 % (37-47); Hemoglobin 11.4 g/dL (12.0-16.0); Immature Granulocytes # (auto) 0.01 K/uL (0.00-0.02); Immature Granulocytes % (auto) 0.3 %; Lymphocytes # (auto) 0.29 K/uL (1.2-3.4); Lymphocytes % (auto) 7.4 %; Mean Corpuscular Hemoglobin 35.1 pg (25-34); Mean Corpuscular Hgb Conc 34.7 g/dL (32-36); Mean Corpuscular Volume 101.2 fL (80-100); Mean Platelet Volume 9.8 fL (7.4-10.4); Monocytes # (auto) 0.26 K/uL (0.11-0.59); Monocytes % (auto) 6.7 %; Neutrophils % (auto) 84.5 %; Platelet Count 234 K/uL (130-400); RDW Coefficient of Variation 14.2 % (11.5-14.5); RDW Standard Deviation 52.3 fL (36.4-46.3); Red Blood Count 3.25 M/uL (4.2-5.4)
--- NOTE | 2021-08-21 17:11 | XRay Report ---
SINGLE VIEW CHEST CLINICAL HISTORY: Atypical chest pain. FINDINGS: An AP, portable, upright chest radiograph is compared to study dated 11/15/2020. Correlation is made with chest CT dated 02/02/2018. The examination is degraded by portable technique and patien t rotation. The heart is enlarged. There is pulmonary vascular congestion. Trace pleural effusions are suspected. Bibasilar opacities are noted. No pneumothorax is seen. The skeletal structures are os teopenic. The bony thorax is grossly intact. IMPRESSION: 1. Cardiomegaly with pulmonary vascular congestion. 2. Airspace opacities likely represent pulmonary edema. Correlate clinically for evidence of a superi mposed infectious/inflammatory pneumonitis. 3. Suspect trace pleural effusions. ACT 112: Negative or not required by law. Electronically signed by: Mitch Stone M.D. 08/21/2021 5:09 PM
[2021-08-21 17:40] LABS: Troponin I High Sensitivity 4.1 pg/ml (0-14)
[2021-08-21 17:58] LABS: Albumin Globulin Ratio 1.3 (0.9-2); Albumin Level 3.9 gm/dl (3.4-5.0); BUN Creatinine Ratio 17.2 (10-20); Bilirubin,Total 0.7 mg/dl (0.2-1.0); Est GFR (African American) 27.4 ml/min; Est GFR (Non-African American) 23.6 ml/min; Globulin 2.9 gm/dl (2.5-4.0); Magnesium 1.6 mg/dl (1.7-2.4); Phosphorus 3.4 mg/dl (2.5-4.9); Potassium 5.5 mmol/L (3.5-5.1); Total Protein 6.8 gm/dl (6.0-8.3)
[2021-08-21] MEDS ORDERED: FUROSEMIDE 40 MG/4 ML VIAL IV ONE (18:35)
[2021-08-21] MEDS: MAGNESIUM SULFATE / D5W 1 GM/100 ML BAG IV SCH ×2 (19:11→19:55)
[2021-08-21] MEDS ORDERED: SODIUM CHLORIDE 3 % 500 ML IV SCH (19:30)
--- NOTE | 2021-08-21 19:32 | History & Physical Report ---
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 Acute on chronic HFpEF exacerbation -Echo 11/2020- EF 60-65%, severe biatrial dilation -Home diuresis regimen consists of Lasix 80 mg PO daily + 20 mg PRN -Suspect this current exacerbation is likely due to increased salt intake over past few weeks with urinary retention 2/2 GABRIELA contributing to impaired fluid excretion -CXR on admission- cardiomegaly, airspace opacities suggestive of pulmonary edema, pulmonary vascular congestion -Will diurese with Lasix 80 mg IV daily, adjust pending volume status + kidney function -KCl 40 meq daily while on diuresis -Daily standing weights, strict I's and O's -Consider cardiology consult in AM -Daily BMP Hyponatremia -118 on admission, received hypertonic saline in ER -Currently without any new arrhythmias or neurologic symptoms -Suspect dilutional/hypervolemic hyponatremia due to CHF exacerbation -Expected to improve with diuresis -BMP q4h, transition to daily once consistent downtrend achieved GABRIELA -Cr 2.2 on admission, no known history of CKD -Suspect this is contributory to her recent urinary retention, Cordero catheter placed -Expect improvement with diuresis -Trend BMP Hyperkalemia -K 5.5 on admission -Suspect related to CHF exacerbation, expect this will improve with diuresis -Trend BMP Paroxysmal atrial fibrillation -Known history of PAF s/p failed cardioversions 2x and difficult rate control -Continue amiodarone 200 mg daily, diltiazem 360 mg daily, metoprolol 50 mg BID -Continue anticoagulation with Eliquis 5 mg BID Hypomagnesemia -1.6 on admission -Repleted with 2g Mg in ER -Continue magnesium oxide 400 mg daily -Trend Mg Chronic hypoxic respiratory failure -Likely due to VALERIE/OHS (never used CPAP at home) + chronic CHF -On home O2, 2L at night but does not regularly use- can wean to RA if pt tolerates -O2 goal > 92% -Albuterol PRN -Pt does have 15 pack year smoking history, quit 7 years prior- never formally diagnosed with COPD, can consider PFTs as outpatient 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 -On daily suppressive Bactrim, currently holding due to GABRIELA -Wound care consult ordered -Pt regularly uses Aquacel foam at home -Currently no concern for acute infection Diabetes -Holding home metformin 1000 mg BID -Lantus 16u BID, ISS -Last known A1C of 5.0% in 11/2020 Anxiety -Continue buspirone 10 mg daily, Effexor 150 mg daily -Ativan 0.5 Hs PRN (this is a home medication) Chronic pain -Continue tramadol 50 mg PO BID HLD -Continue atorvastatin 40 mg daily HTN -Continue metoprolol 50 mg BID, diltiazem 360 mg daily Hypothyroid -Continue synthroid 137 mcg daily GERD -Continue pantoprazole 40 mg daily FENGI: Carb consistent, heart healthy, low salt, 1500 cc fluids Code status: Full DVT ppx: Eliquis Isolation: None Dispo: PCU. 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 Pt states she first began to experience throat and chest congestion on 08/19 accompanied by worsening dyspnea. Has attempted to cough to get the phlegm out but notes she has difficulty doing so. Notes increasing abdominal distension and firmness during this time as well. Denies any fevers, chills, chest pain, increased leg swelling. She does note that her diet has been different than usual lately- her sister brought her much food for [employer] including salted/cured meat including a large ham. Pt states she has been eating plenty of Easter leftovers lately and also about 1 cup of cottage cheese daily for the past 4-5 days. She has not drank any increased fluid. During the past few weeks, pt also reports retaining urine- she has attempted to void several times but rarely succeeds. Last BM today. Weight change of 91 kg to 110 kg from 03/2021 to today. Of note, pt does have home O2, 2L at night only, but has been unable to use her O2 for a few weeks now due to difficulty physically accessing her machinery at home. Allergies Allergy/AdvReac Type Severity Reaction Status Date / Time Penicillins Allergy Unknown UNKNOWN Verified 08/21/21 16:32 bacitracin Allergy Unknown Verified 08/21/21 16:32 [From Neosporin ([id number])] neomycin Allergy Unknown Verified 08/21/21 16:32 [From Neosporin ([id number])] polymyxin B Allergy Unknown Verified 08/21/21 16:32 [From Neosporin ([id number])] Home Medications Medication Instructions Recorded Confirmed Type cholecalciferol (vitamin D3) 25 1,000 units PO 1200 12/24/17 08/21/21 History mcg (1,000 unit) capsule cyanocobalamin (vitamin B-12) 1,000 mcg PO 1200 12/24/17 08/21/21 History 1,000 mcg capsule magnesium oxide 400 mg PO TIDM cap 09/28/18 08/21/21 History foam bandage 8" X 7" (Aquacel Foam) #5 ea 03/29/20 03/14/21 Rx blood sugar diagnostic (OneTouch #100 ea 07/16/20 03/14/21 Rx Verio test strips) blood-glucose meter (OneTouch #1 ea 07/16/20 03/14/21 Rx Verio Meter) lancets (OneTouch UltraSoft #200 ea 07/16/20 03/14/21 Rx Lancets) acetaminophen 325 mg tablet 650 mg PO Q6H PRN #60 tab 01/04/21 08/21/21 Rx albuterol sulfate 90 mcg/actuation 2 puff INHALATION Q4H PRN #8.5 g 01/04/21 08/21/21 Rx aerosol inhaler cetirizine 10 mg tablet 10 mg PO DAILY #30 tab 01/04/21 08/21/21 Rx furosemide 20 mg tablet 20 mg PO DAILY PRN #30 tab 01/04/21 08/21/21 Rx metformin 1,000 mg tablet 1,000 mg PO BIDM #60 tab 01/04/21 08/21/21 Rx pantoprazole 40 mg tablet,delayed 40 mg PO QAM #30 tab 01/04/21 08/21/21 Rx release potassium chloride 20 mEq 20 meq PO QAM #30 tab 01/04/21 08/21/21 Rx tablet,extended release(part/cryst) (Klor-Con M) sulfamethoxazole 800 1 tab PO BID #60 tab 01/04/21 08/21/21 Rx mg-trimethoprim 160 mg tablet (Bactrim DS) thiamine HCl (vitamin B1) 100 mg 100 mg PO QAM #30 tab 01/04/21 08/21/21 Rx tablet (Vitamin B-1) atorvastatin 40 mg tablet 40 mg PO QPM #90 tab 02/07/21 08/21/21 Rx apixaban 5 mg tablet (Eliquis) 5 mg PO BID #180 tab 05/20/21 08/21/21 Rx amiodarone 200 mg tablet 200 mg PO QAM #30 tab 05/21/21 08/21/21 Rx metoprolol tartrate 50 mg tablet 50 mg PO BID #60 tab 05/29/21 08/21/21 Rx levothyroxine 137 mcg tablet 137 mcg PO DAILY #30 tab 06/19/21 08/21/21 Rx venlafaxine 150 mg 150 mg PO QAM #30 cap 06/19/21 08/21/21 Rx capsule,extended release 24 hr lorazepam 0.5 mg tablet 0.5 mg PO DAILY PRN #30 tab 07/30/21 08/21/21 Rx montelukast 10 mg tablet 10 mg PO HS #30 tab 08/09/21 08/21/21 Rx buspirone 10 mg tablet 10 mg PO BID #60 tab 08/12/21 08/21/21 Rx diltiazem HCl 360 mg 360 mg PO DAILY #30 cap 08/12/21 08/21/21 Rx capsule,extended release 24 hr ondansetron HCl 4 mg tablet 4 mg PO Q8H PRN #20 tab 08/12/21 08/21/21 Rx tramadol 50 mg tablet 50 mg PO BID #60 tab 08/14/21 08/21/21 Rx furosemide 40 mg tablet 80 mg PO DAILY 08/21/21 08/21/21 History Past Med/Surg History Medical History Acquired claw toe of left foot Acquired hallux valgus of right foot Acquired hammer toe of right foot Acute renal failure "FROM A FALL." RESOLVED Anxiety Arterial hemorrhage PT CANNOT RECALL Asthma RES INH USE DAILY/ NOT WELL CONTROLLED DURING ALLERGY SEASON Cellulitis of third toe, left Depression Diabetes mellitus with diabetic polyneuropathy Diabetic foot infection (08/25/13) BILAT> BOTH RESOLVED History of amputation of left great toe History of cardioversion X2. LAST ONE APPROX 2014 Hypercholesteremia Hypertension Hypothyroidism Morbid obesity Osteoarthritis Osteomyelitis OF A TOE LEFT FOOT Paroxysmal a-fib ON ELIQUIS. S/P FAILED CARDIOVERSIONS X2. PER CARDIO NOT A CANDIDATE FOR ABLATION. RATE HAS BEEN DIFFICULT TO CONTROL AT TIMES, BUT PER MOST RECENT CARDIO NOTE 09/2019, RATE IMPROVED WITH ADDITION OF DILTIAZEM. PT IS ASYMPTOMATIC. Patellar fracture Sleep apnea NO CPAP Surgical History History of amputation of lesser toe of left foot History of amputation of lesser toe of right foot History of colonoscopy History of dilatation and curettage History of esophagogastroduodenoscopy (EGD) History of right knee surgery REPLACEMENT > ON BACTRIM FOR INFECTED HARDWARE. SURGERY PENDING APPROX 6 MOS Family History Sister Breast cancer Father Diabetes Hypertension Other Family history non-contributory Heart disease Social History Smoking Status: Former smoker Cigarettes Per Day: 10; Smoking End Date: 7 years ago; Number of Years Since Quit: 5; Second Hand Exposure: No; Do You Dip or Chew Tobacco: No; Tobacco Cessation Education Requested by Patient: No Hx Alcohol Use: Yes Alcohol type: hard liquor Hx Substance Use: No Preferred Language: Maltese Communication Ability: Effective Surgery Scheduler Required: No Beliefs That Will Affect Care: None marital status: Single Current Living Situation: Alone Other Information That Helps Us Care for You: No Feels Safe at Home: Yes Safety Concerns: Feels Safe At This Time Assistive Devices: Glasses and Oxygen - at Night Review of Systems Review of Systems: Per HPI Physical Exam Physical Exam: General: Morbidly obese female laying in bed, nasal cannula in place, no acute distress HEENT: moist mucous membranes, EOMI, PERRLA, anicteric sclerae Neck: supple, no overt JVD b/l though assessment limited by body habitus CV: irregular rate and rhythm, in atrial fibrillation on monitor, normal S1, S2, no murmurs noted Resp: reduced inspiratory effort, diminished breath sounds diffusely with bibasilar and middle lobe crackles b/l, no increased work of breathing Abd: slightly firm, distended, no fluid wave, nontender to palpation, normal bowel sounds Extremities: 1+ pitting edema of b/l LE, multiple toe amputations b/l, chronic draining sinus with ulceration of RLE, multiple yellow plaques and chronic venous stasis changes of b/l LE, distal LE pulses intact b/l, lesions are nontender and lack warmth Neuro: grossly alert and oriented, no gross focal motor or sensory deficits, DTRs 1+ Results & Data Results & Data ([facility]) Vital Signs (Past 12 Hours) Vital Signs Temp Pulse Resp BP Pulse Ox 08/21/21 18:31 60 20 127/75 98 08/21/21 18:30 56 L 19 92 08/21/21 18:00 51 L 15 92 08/21/21 17:51 53 L 17 115/85 85 L 08/21/21 17:30 20 94 08/21/21 17:00 20 90 08/21/21 16:30 59 L 23 115/85 89 L 08/21/21 16:17 91 08/21/21 16:12 57 L 90 08/21/21 15:57 36.7 C 62 16 117/67 91 Supervising Physician Co-Signing Physician Notes Patient seen and examined, chart reviewed, case discussed with Dr. Burton and I agree with the assessment and plan as documented above. In brief, patient is a 61-year-old female with multiple medical comorbidities, specifically, heart failure with preserved EF (EF of 60 to 65% per echo November/2020) paroxysmal atrial fibrillation, diabetes with neuropathy, multiple amputations, chronic hypoxic respiratory failure on home O2 nightly. Patient presently lives at home alone. She presents today with complaint of progressive throat and chest congestion. Patient also endorses edema of bilateral lower extremities as well as abdominal wall, orthopnea and thinks that she may have gained weight although she has not weighed herself recently. She is more short of breath as well as feeling more fatigue. She feels that the symptoms have been progressing for several weeks. She reports increased salty intake over the last couple of weeks. Also reports difficulty with urination. Patient follows at CHF clinic. She thinks that her dry weight is approximately 190 pounds. On exam she is afebrile, hemodynamically stable, adequate oxygenation on 2 L nasal cannula Skindry and flaking with significant scaling on bilateral lower extremities, open wound on right gaines with dried blood. No evidence of active cellulitis or purulence HEENTnormocephalic/atraumatic, pupils equal round react light, moist mucous membranes, neck supple Heart+ S1/S2, irregularly irregular, no murmur/rub/gallops Lungsequal air entry bilaterally with diffuse crackles Abdomenpositive bowel sounds, soft, mildly distended, tympanic to percussion, abdominal wall pitting edema as well as presacral edema Extremitiesstatus post toe amputations, 2+ pitting edema Labs and images reviewed. Significant for sodium = 118, K = 5.5, BUN = 38, creatinine = 2.21, magnesium = 1.6. BNP mildly elevated at 546 Chest x-ray appears to have bilateral airspace opacities Assessment/plan 61-year-old female presenting with progressive dyspnea, edema, weight gain as well as difficulty with urination Suspect acute exacerbation of CHF Treatment with Lasix 80 mg IV daily, closely monitor renal function and electrolytes, weights and daily intake/output Electrolyte repletion as needed Suspect secondary to CHF exacerbation/volume overload. No neurological symptoms reported. For hyponatremia we will administer 100 mL of 3% saline. Diuresis as above. BMP every 4 GABRIELA with elevation of BUN to 38 and creatinine to 2.21. Possibly secondary to poor forward flow in setting of CHF exacerbation. We will closely monitor renal function and electrolytes. Expect creatinine to improve with diuresis Rate controlled atrial fibrillation. Continue amiodarone, diltiazem, metoprolol and Eliquis anticoagulation Remainder of plan as above (1) Chronic infection of knee joint prosthesis Encounter type: initial encounter Qualified Code(s): T84.59XA - Infection and inflammatory reaction due to other internal joint prosthesis, initial encounter; Z96.659 - Presence of unspecified artificial knee joint
[2021-08-21 20:51] LABS: Appearance Urine Clear (Clear); Bacteria Urine Automated 3+ (Negative); Bilirubin Urine Negative (Negative); Blood Urine Negative (Negative); Color Urine Yellow; Glucose Urine UA Negative (Negative); Ketones Urine Negative (Negative); Leukocyte Esterase Urine Negative (Negative); Nitrite Urine Positive (Negative); Protein Urine Negative (Negative); RBC Urine Automated 0-4 /hpf (0-4); Specific Gravity Urine 1.012 (1.000-1.030); Urobilinogen Urine Negative (Negative)
[2021-08-21] MEDS ORDERED: LORazepam 0.5 MG TAB PO STA (21:36)
[2021-08-21 21:40] LABS: Thyroid Stimulating Hormone 9.357 uIu/ml (0.300-4.500)
[2021-08-21] MEDS ORDERED: GLUCOSE 10 TABS/TUBE PO PRN (21:46)
[2021-08-21] MEDS ORDERED: ONDANSETRON INJ 2 MG/ML 2 ML VIAL IV PRN (21:46)
[2021-08-21] MEDS ORDERED: CARBOHYDRATES FOR HYPOGLYCEMIA PO PRN (21:46)
[2021-08-21] MEDS ORDERED: ONDANSETRON 4 MG OD TAB PO PRN (21:46)
[2021-08-21] MEDS ORDERED: ALBUTEROL HFA 8 GM INHALER INH PRN (21:46)
[2021-08-21] MEDS ORDERED: GLUCOSE 40% GEL 15 GM TUBE PO PRN (21:46)
[2021-08-21] MEDS ORDERED: GLUCAGON FOR INJ 1 MG VIAL SQ PRN (21:46)
[2021-08-21] MEDS ORDERED: DEXTROSE 50% 50 ML SYRINGE IV PRN (21:46)
[2021-08-21 22:31] LABS: T4 Free Thyroxine 1.04 ng/dl (0.61-1.60)
[2021-08-21] MEDS: ACETAMINOPHEN 325 MG TAB PO PRN (22:34)
[2021-08-21] MEDS: INSULIN ASPART PER UNIT SC SCH (22:50)
[2021-08-21] MEDS: MONTELUKAST SODIUM 10 MG TABLET PO SCH (22:54)
[2021-08-21] MEDS: ATORVASTATIN 40 MG TAB PO SCH (22:55)
[2021-08-21] MEDS: APIXABAN 5 MG TABLET PO SCH (22:55)
[2021-08-21] MEDS: METOPROLOL TARTRATE 50 MG TAB PO SCH (22:55)
[2021-08-21] MEDS: busPIRone 5 MG TAB PO SCH (22:55)
[2021-08-21] MEDS: INSULIN GLARGINE SOLOSTAR 100 UNITS/ML 3 ML PEN SC SCH (22:56)
[2021-08-21 23:02] LABS: BUN Creatinine Ratio 17.3 (10-20); Calcium 8.7 mg/dl (8.5-10.1); Creatinine Clr Calc Pharmacy 45.3 ml/min; Est GFR (African American) 28.5 ml/min; Est GFR (Non-African American) 24.6 ml/min; Potassium 5.6 mmol/L (3.5-5.1)
[2021-08-21] MEDS ORDERED: SODIUM CHLORIDE 3 % 100 ML IV ONE (23:08)
--- NOTE | 2021-08-22 01:08 | Billing Data ---
Date of Service August 21, 2021 Coding Level of Care Code 89626 Initial Inpt Care Lvl 3
--- NOTE | 2021-08-22 01:37 | Emergency Department Note ---
Impression & Plan Acute on chronic diastolic (congestive) heart failure, Hypomagnesemia, Pulmonary edema, Hyponatremia, Acute renal failure ED Provider Note NAME: MILA RUVALCABA AGE: 61 SEX: F ARRIVES VIA: Ambulance INFORMANT: Patient ED PROVIDER(S): Fabrice Ramirez MD CHIEF COMPLAINT: SOB, weakness PLAN: Disposition: Admit MEDICAL DECISION MAKING: The patient is a pleasant 61-year-old woman with a past medical history of dCHF, asthma, chronic limited mobility, afib, HTN, HLD, hypothyroidism, GERD, Chronic right knee prosthesis infection/h/o osteomyelitis, VALERIE who presents to the emergency department via EMS for worsening shortness of breath and fluid r etention/edema over the past couple of weeks. Patient initially called EMS because of worsening of her chronic weakness where she was unable to transfer back to her wheelchair from her bedside commode and called for assistance. EMS noted that she was severely dyspneic and transferred the patient for evaluation of SOB. Patient reports she has been increasingly retaining more fluid over the past several weeks and did not seek medical attention because she hoped it would improve. She denies fevers, n/v/d, urinary symptoms. On arrival the patient is acute on chronically ill-appearing but in no acute distress, afebrile stable vital signs. Her O2 saturation is normal on room air however appears dyspneic with increased work of breathing. She has 3+ bilateral lower extremity pitting edema with chronic eczema/?psoriasis. Anasarca of her abdomen. Lungs with diminished breath sounds at the bases with scant underlying wheeze with mild increased work of breathing. Patient was treated with DuoNeb and Solu-Medrol for component of bronchospasm in setting of her asthma and upon resulting of her labs was treated with 80 milligrams of IV Lasix. EKG shows afib without overt acute ischemia. CXR c/w CHF with pulmonary edema. WBC 3.9K within prior range of values. H/H similar to prior. Platelets wnl. Chemistry without acidosis. Sodium 118 and chloride 82 is new compared to Mar 2021 however given patient is mentating normally likely is not acute per se. Potassium 5.5. Cr. 2.21 c/w ARF. Serum and urine osmolality 250s c/w suspected Hypervolemic hyponatremia. Magnesium 1.6 with repletion initiated. LFTs without significant abnormality. High sensitivity troponin 4.1, wnl. BNP 546, c/w patient's hypervolemia and dysnpea. TSH 9.3 with Free T4 wnl. Covid-19 RNA, NAAT negative. UA with bacteria and nitrites with 5-10 epithelial cells. Will defer decision for treatment to admitting team. Patient agrees with plan for admission given her worsening symptoms. Given the patient is mentating and hyponatremia is likely related to increased free water will defer treatment with hypertonic saline at this time as likely will improve with diuresis Case was d/w Dr. Escudero, [facility] hospitalist who will evaluate the patient for admission. Triage Nursing notes reviewed and agree them. Prior medical records reviewed Vital Signs: reviewed and remarkable for no significant abnormalities Differential diagnosis: Reactive airway disease, pneumonia, pneumothorax, COPD, CHF, infections, cardiac ischemia, pulmonary embolism, musculoskeletal, gastrointestinal, as well as other pathologies. ER treatment provided: See below. Diagnostics interpreted by me: ECG: Atrial fibrillation, 52 bpm, no ectopy, TWA, no overt ST elevation or depression. Cardiac Monitoring: An order for continuous cardiac monitoring was placed and demonstrated Atrial fibrillation, 52 bpm, no ectopy. Laboratory studies: See below Imaging studies: See below Consultation(s): Case was d/w Dr. Escudero [facility] hospitalist who will evaluate the patient for admission. HPI: The patient is a pleasant 61-year-old woman with a past medical history of dCHF, asthma, chronic limited mobility, afib, HTN, HLD, hypothyroidism, GERD, Chronic right knee prosthesis infection/h/o osteomyelitis, VALERIE who presents to the emergency department via EMS for worsening shortness of breath and fluid retention/edema over the past couple of weeks. Patient initially called EMS because of worsening of her chronic weakness where she was unable to transfer back to her wheelchair from her bedside commode and called for assistance. EMS noted that she was severely dyspneic and transferred the patient for evaluation of SOB. Patient reports she has been increasingly retaining more fluid over the past several weeks and did not seek medical attention because she hoped it would improve. She denies fevers, n/v/d, urinary symptoms. ROS: See above HPI for pertinent positives & negatives. A total of 10 systems reviewed and were otherwise negative. VITALS:See Below PHYSICAL EXAMINATION: GENERAL: Awake, alert, acute on chronically ill-appearing, in no distress, BMI 40.8. HENT: Normocephalic, atraumatic. Oropharynx unremarkable. EYES: Normal conjunctiva. Sclera non-icteric. NECK: Supple. No nuchal rigidity. FROM. No JVD. RESPIRATORY:Lungs with diminished breath sounds at the bases with scant underlying wheeze with mild increased work of breathing. CARDIAC: Regular rate, normal rhythm. Extremities warm and well perfused. Pulses equal. ABDOMEN: Soft, non-distended. No tenderness to palpation. Anasarca. No rebound or guarding. No masses. RECTAL: Deferred. MUSCULOSKELETAL: Chest examination reveals no tenderness. The back is symmetrical on inspection without obvious abnormality. There is no CVA tenderness to palpation. No joint edema. LOWER EXTREMITIES: 3+ bilateral lower extremity pitting edema with chronic eczema/?psoriasis. No erythema, warmth or tenderness. NEURO: Normal sensorium. No sensory or motor deficits noted. SKIN: No jaundice noted. Chronic BLE eczema/?psoriasis. ED COURSE: Critical Care: I have personally spent greater than 45 minutes of critical care time in the direct management of this patient. This includes bedside care, interpretation of diagnostic studies, and testing, discussion with consultants, patient, and family members, and other required patient management activities. This 45 minutes is in excess of all separately billable procedures. Fabrice Ramirez MD Past Med/Surg History Medical History Acquired claw toe of left foot Acquired hallux valgus of right foot Acquired hammer toe of right foot Acute renal failure "FROM A FALL." RESOLVED Anxiety Arterial hemorrhage PT CANNOT RECALL Asthma RES INH USE DAILY/ NOT WELL CONTROLLED DURING ALLERGY SEASON Cellulitis of third toe, left Depression Diabetes mellitus with diabetic polyneuropathy Diabetic foot infection (08/25/13) BILAT> BOTH RESOLVED History of amputation of left great toe History of cardioversion X2. LAST ONE APPROX 2014 Hypercholesteremia Hypertension Hypothyroidism Morbid obesity Osteoarthritis Osteomyelitis OF A TOE LEFT FOOT Paroxysmal a-fib ON ELIQUIS. S/P FAILED CARDIOVERSIONS X2. PER CARDIO NOT A CANDIDATE FOR ABLATION. RATE HAS BEEN DIFFICULT TO CONTROL AT TIMES, BUT PER MOST RECENT CARDIO NOTE 09/2019, RATE IMPROVED WITH ADDITION OF DILTIAZEM. PT IS ASYMPTOMATIC. Patellar fracture Sleep apnea NO CPAP Surgical History History of amputation of lesser toe of left foot History of amputation of lesser toe of right foot History of colonoscopy History of dilatation and curettage History of esophagogastroduodenoscopy (EGD) History of right knee surgery REPLACEMENT > ON BACTRIM FOR INFECTED HARDWARE. SURGERY PENDING APPROX 6 MOS Family History Sister Breast cancer Father Diabetes Hypertension Other Family history non-contributory Heart disease Social History Smoking Status: Former smoker Cigarettes Per Day: 10; Smoking End Date: 7 years ago; Number of Years Since Quit: 5; Second Hand Exposure: No; Do You Dip or Chew Tobacco: No; Tobacco Cessation Education Requested by Patient: No Hx Alcohol Use: Yes Alcohol type: hard liquor Hx Substance Use: No Preferred Language: [place] Communication Ability: Effective Dairy Nutritionist Required: No Beliefs That Will Affect Care: None marital status: Single Current Living Situation: Alone How many Children do You have: 0 Other Information That Helps Us Care for You: No Feels Safe at Home: Yes Safety Concerns: Feels Safe At This Time Assistive Devices: Cane, Oxygen - at Night, Walker and Wheelchair Allergies Allergies Allergy/AdvReac Type Severity Reaction Status Date / Time Penicillins Allergy Unknown UNKNOWN Verified 08/21/21 16:32 bacitracin Allergy Unknown Verified 08/21/21 16:32 [From Neosporin ([id number])] neomycin Allergy Unknown Verified 08/21/21 16:32 [From Neosporin ([id number])] polymyxin B Allergy Unknown Verified 08/21/21 16:32 [From Neosporin ([id number])] Home Meds Home Medications Medication Instructions Recorded Confirmed cholecalciferol (vitamin D3) 25 1,000 units PO 1200 12/24/17 08/21/21 mcg (1,000 unit) capsule cyanocobalamin (vitamin B-12) 1,000 mcg PO 1200 12/24/17 08/21/21 1,000 mcg capsule magnesium oxide 400 mg PO TIDM cap 09/28/18 08/21/21 furosemide 40 mg tablet 80 mg PO DAILY 08/21/21 08/21/21 Previous Rx's Medication Instructions Recorded foam bandage 8" X 7" (Aquacel Foam) #5 ea 03/29/20 blood sugar diagnostic (OneTouch #100 ea 07/16/20 Verio test strips) blood-glucose meter (OneTouch #1 ea 07/16/20 Verio Meter) lancets (OneTouch UltraSoft #200 ea 07/16/20 Lancets) acetaminophen 325 mg tablet 650 mg PO Q6H PRN #60 tab 01/04/21 albuterol sulfate 90 mcg/actuation 2 puff INHALATION Q4H PRN #8.5 g 01/04/21 aerosol inhaler cetirizine 10 mg tablet 10 mg PO DAILY #30 tab 01/04/21 furosemide 20 mg tablet 20 mg PO DAILY PRN #30 tab 01/04/21 metformin 1,000 mg tablet 1,000 mg PO BIDM #60 tab 01/04/21 pantoprazole 40 mg tablet,delayed 40 mg PO QAM #30 tab 01/04/21 release potassium chloride 20 mEq 20 meq PO QAM #30 tab 01/04/21 tablet,extended release(part/cryst) (Klor-Con M) sulfamethoxazole 800 1 tab PO BID #60 tab 01/04/21 mg-trimethoprim 160 mg tablet (Bactrim DS) thiamine HCl (vitamin B1) 100 mg 100 mg PO QAM #30 tab 01/04/21 tablet (Vitamin B-1) atorvastatin 40 mg tablet 40 mg PO QPM #90 tab 02/07/21 apixaban 5 mg tablet (Eliquis) 5 mg PO BID #180 tab 05/20/21 amiodarone 200 mg tablet 200 mg PO QAM #30 tab 05/21/21 metoprolol tartrate 50 mg tablet 50 mg PO BID #60 tab 05/29/21 levothyroxine 137 mcg tablet 137 mcg PO DAILY #30 tab 06/19/21 venlafaxine 150 mg 150 mg PO QAM #30 cap 06/19/21 capsule,extended release 24 hr lorazepam 0.5 mg tablet 0.5 mg PO DAILY PRN #30 tab 07/30/21 montelukast 10 mg tablet 10 mg PO HS #30 tab 08/09/21 buspirone 10 mg tablet 10 mg PO BID #60 tab 08/12/21 diltiazem HCl 360 mg 360 mg PO DAILY #30 cap 08/12/21 capsule,extended release 24 hr ondansetron HCl 4 mg tablet 4 mg PO Q8H PRN #20 tab 08/12/21 tramadol 50 mg tablet 50 mg PO BID #60 tab 08/14/21 Results & Data (ED) Vital Signs Vital Signs - 24 hr 08/21/21 17:30 08/21/21 17:51 08/21/21 18:00 Pulse Rate 53 L 51 L Pulse Rate from SpO2 Sensor 57 L 58 L Respiratory Rate 20 17 15 Respiratory Depth Respiratory Pattern Blood Pressure 115/85 Blood Pressure Mean 95 Pulse Oximetry 94 85 L 92 08/21/21 18:12 08/21/21 18:30 08/21/21 18:31 Pulse Rate 56 L 60 Pulse Rate from SpO2 Sensor 56 L 64 Respiratory Rate 19 20 Respiratory Depth Normal Respiratory Pattern Regular Blood Pressure 127/75 Blood Pressure Mean 92 Pulse Oximetry 92 98 08/21/21 18:47 08/21/21 19:00 08/21/21 19:30 Pulse Rate 57 L 64 Pulse Rate from SpO2 Sensor 65 Respiratory Rate 17 21 Respiratory Depth Normal Respiratory Pattern Regular Blood Pressure 125/80 Blood Pressure Mean 105 95 Pulse Oximetry 97 90 08/21/21 20:00 Pulse Rate 66 Pulse Rate from SpO2 Sensor 63 Respiratory Rate 16 Respiratory Depth Respiratory Pattern Blood Pressure 116/77 Blood Pressure Mean 90 Pulse Oximetry 92 Laboratory Data Attestation: I reviewed the patient's lab results. Result diagrams: 08/22/21 06:42 08/22/21 15:41 Lab Results 08/21/21 08/21/21 08/21/21 Range/Units 17:10 17:10 17:58 Osmolality 258 L (280-300) mOsm/kg TSH 9.357 H (0.300-4.500) uIu/ml Free T4 1.04 (0.61-1.60) ng/dl Urine Osmolality (500-800) mOsm/kg Ur Random Sodium mmol/L SARS-CoV-2, RNA, NAAT NEGATIVE (NEGATIVE) 08/21/21 08/21/21 Range/Units 19:07 19:07 Osmolality (280-300) mOsm/kg TSH (0.300-4.500) uIu/ml Free T4 (0.61-1.60) ng/dl Urine Osmolality 257 L (500-800) mOsm/kg Ur Random Sodium 10 mmol/L SARS-CoV-2, RNA, NAAT (NEGATIVE) Administered Medications Acetaminophen (Acetaminophen 325 Mg Tab) 650 mg PO Q6H PRN PRN Reason: pain Stop: 09/20/21 21:45 Last Admin: 08/22/21 15:09 Dose: 650 mg Documented by: [id number] Admin: 08/22/21 04:43 Dose: 650 mg Documented by: [id number] Admin: 08/21/21 22:34 Dose: 650 mg Documented by: [id number] Amiodarone HCl (Amiodarone 200 Mg Tab) 200 mg PO QAM BRIANDA Stop: 09/21/21 08:59 Last Admin: 08/22/21 08:03 Dose: 200 mg Documented by: [id number] Apixaban (Apixaban 5 Mg Tablet) 5 mg PO BID BRIANDA Stop: 09/20/21 21:45 Last Admin: 08/22/21 08:02 Dose: 5 mg Documented by: [id number] Admin: 08/21/21 22:55 Dose: 5 mg Documented by: [id number] Atorvastatin Calcium (Atorvastatin 40 Mg Tab) 40 mg PO QPM BRIANDA Stop: 09/20/21 21:45 Last Admin: 08/21/21 22:55 Dose: 40 mg Documented by: [id number] Buspirone HCl (Buspirone 5 Mg Tab) 10 mg PO BID BRIANDA Stop: 09/20/21 21:45 Last Admin: 08/22/21 08:01 Dose: 10 mg Documented by: [id number] Admin: 08/21/21 22:55 Dose: 10 mg Documented by: [id number] Cetirizine HCl (Cetirizine Hcl 10 Mg Tablet) 10 mg PO DAILY BRIANDA Stop: 09/21/21 08:59 Last Admin: 08/22/21 08:03 Dose: 10 mg Documented by: [id number] Cyanocobalamin (Cyanocobalamin (B-12) 500 Mcg Tablet) 1,000 mcg PO DAILY@1200 BRIANDA Stop: 09/21/21 11:59 Last Admin: 08/22/21 12:13 Dose: 1,000 mcg Documented by: [id number] Diltiazem HCl (Diltiazem Hcl 180 Mg Capcr) 360 mg PO DAILY BRIANDA Stop: 09/21/21 08:59 Last Admin: 08/22/21 08:01 Dose: 360 mg Documented by: [id number] Furosemide (Furosemide 40 Mg/4 Ml Vial) 80 mg IV QAM BRIANDA Stop: 09/21/21 08:59 Last Admin: 08/22/21 08:03 Dose: 80 mg Documented by: [id number] Insulin Aspart (Insulin Aspart Per Unit) 0 units SC ACHS BRIANDA Stop: 09/20/21 21:45 Last Admin: 08/22/21 17:12 Dose: 3 units Documented by: [id number] Cosigned by: [id number] Admin: 08/22/21 12:09 Dose: 4 units Documented by: [id number] Cosigned by: [id number] Admin: 08/22/21 08:03 Dose: 5 units Documented by: [id number] Cosigned by: [id number] Admin: 08/21/21 22:50 Dose: Not Given Documented by: [id number] Insulin Glargine (Insulin Glargine Solostar 100 Units/Ml 3 Ml Pen) 16 units SC BID BRIANDA Stop: 09/20/21 21:45 Last Admin: 08/22/21 08:04 Dose: 16 units Documented by: [id number] Cosigned by: [id number] Admin: 08/21/21 22:56 Dose: 16 units Documented by: [id number] Cosigned by: [id number] Lactic Acid (Ammonium Lactate 12% Lotion 225 Gm Btl) 1 gm EXT DAILY BRIANDA Stop: 09/21/21 15:14 Last Admin: 08/22/21 16:39 Dose: 1 gm Documented by: [id number] Levothyroxine Sodium (Levothyroxine Sodium 137 Mcg Tablet) 137 mcg PO DAILYBB [facility] Stop: 09/21/21 06:29 Last Admin: 08/22/21 06:26 Dose: 137 mcg Documented by: [id number] Lorazepam (Lorazepam 0.5 Mg Tab) 0.5 mg PO DAILY PRN PRN Reason: anxiety Stop: 09/20/21 21:45 Last Admin: 08/22/21 09:45 Dose: 0.5 mg Documented by: [id number] Lorazepam (Lorazepam 0.5 Mg Tab) 0.5 mg PO BID PRN PRN Reason: Anxiety Stop: 09/21/21 16:47 Last Admin: 08/22/21 17:12 Dose: 0.5 mg Documented by: [id number] Magnesium Oxide (Magnesium Oxide 400 Mg Tab) 400 mg PO TIDM BRIANDA Stop: 09/21/21 07:59 Last Admin: 08/22/21 12:13 Dose: 400 mg Documented by: [id number] Admin: 08/22/21 08:02 Dose: 400 mg Documented by: [id number] Metoprolol Tartrate (Metoprolol Tartrate 50 Mg Tab) 50 mg PO BID [facility] Stop: 09/20/21 21:45 Last Admin: 08/22/21 08:00 Dose: 50 mg Documented by: [id number] Admin: 08/21/21 22:55 Dose: 50 mg Documented by: [id number] Montelukast Sodium (Montelukast Sodium 10 Mg Tablet) 10 mg PO [facility] Stop: 09/20/21 21:45 Last Admin: 08/21/21 22:54 Dose: 10 mg Documented by: [id number] Pantoprazole Sodium (Pantoprazole 40 Mg Tab) [facility] Stop: 09/21/21 08:59 Last Admin: 08/22/21 08:01 Dose: 40 mg Documented by: [id number] Thiamine HCl (Thiamine Hcl 100 Mg Tab) 100 [facility] Stop: 09/21/21 08:59 Last Admin: 08/22/21 08:02 Dose: 100 mg Documented by: [id number] Tramadol HCl (Tramadol Hcl 50 Mg Tablet) 50 mg PO BID [facility] Stop: 09/21/21 08:59 Last Admin: 08/22/21 08:00 Dose: 50 mg Documented by: [id number] Venlafaxine HCl (Venlafaxine Hcl Xr 150 Mg Capxr) 150 mg [facility] Stop: 09/21/21 08:59 Last Admin: 08/22/21 08:01 Dose: 150 mg Documented by: [id number] Vitamin D (Cholecalciferol 1,000 Units 25 Mcg Tab) 1,000 units PO DAILY@1200 [facility] Stop: 09/21/21 11:59 Last Admin: 08/22/21 12:13 Dose: 1,000 units Documented by: [id number] Discontinued Medications Albuterol (Albut/Ipratrop 3mg/0.5mg Neb 3 Ml Vial) 3 ml NEB NOW STA; Protocol Stop: 08/21/21 16:55 Last Admin: 08/21/21 17:09 Dose: 3 ml Documented by: [id number] Furosemide (Furosemide 40 Mg/4 Ml Vial) 80 mg IV ONE ONE Stop: 08/21/21 18:36 Last Admin: 08/21/21 19:10 Dose: 80 mg Documented by: [id number] Magnesium Sulfate/Dextrose (Magnesium Sulfate / D5w) 1 gm in 100 mls @ 100 mls/hr IV Q1H BRIANDA Stop: 08/21/21 20:36 Last Infusion: 08/21/21 20:59 Dose: 0 mls/hr Documented by: [id number] Admin: 08/21/21 19:55 Dose: 100 mls/hr Documented by: [id number] Infusion: 08/21/21 19:55 Dose: 100 mls/hr Documented by: [id number] Admin: 08/21/21 19:11 Dose: 100 mls/hr Documented by: [id number] Sodium Chloride (Hypertonic Saline 3%) 500 mls @ 15 mls/hr IV .Q24H BRIANDA; Protocol Stop: 08/23/21 19:29 Last Admin: 08/21/21 22:42 Dose: Not Given Documented by: [id number] Sodium Chloride (Hypertonic Saline 3%) 100 mls @ 600 mls/hr IV .Q10M ONE Stop: 08/21/21 23:17 Last Infusion: 08/22/21 00:49 Dose: 0 mls/hr Documented by: [id number] Cosigned by: [id number] Admin: 08/22/21 00:38 Dose: 600 mls/hr Documented by: [id number] Cosigned by: [id number] Lorazepam (Lorazepam 0.5 Mg Tab) 0.5 mg PO NOW STA Stop: 08/21/21 21:37 Last Admin: 08/21/21 22:34 Dose: 0.5 mg Documented by: [id number] Methylprednisolone (Methylprednisolone 125 Mg/2 Ml Vial) 60 mg IV NOW STA Stop: 08/21/21 16:55 Last Admin: 08/21/21 17:08 Dose: 60 mg Documented by: [id number] Tramadol HCl (Tramadol Hcl 50 Mg Tablet) Confirm Administered Dose 50 mg .ROUTE .STK-MED ONE Stop: 08/22/21 07:55 Last Admin: 08/22/21 08:02 Dose: Not Given Documented by: [id number] Imaging Data Radiologist's Impression: Chest X-Ray 08/21/21 16:30 SINGLE VIEW CHEST CLINICAL HISTORY: Atypical chest pain. FINDINGS: An AP, portable, upright chest radiograph is compared to study dated 11/15/2020. Correlation is made with chest CT dated 02/02/2018. The examination is degraded by portable technique and patient rotation. The heart is enlarged. There is pulmonary vascular congestion. Trace pleural effusions are suspected. Bibasilar opacities are noted. No pneumothorax is seen. The skeletal structures are osteopenic. The bony thorax is grossly intact. IMPRESSION: 1. Cardiomegaly with pulmonary vascular congestion. 2. Airspace opacities likely represent pulmonary edema. Correlate clinically for evidence of a superimposed infectious/inflammatory pneumonitis. 3. Suspect trace pleural effusions. ACT 112: Negative or not required by law. Electronically signed by: Mitch Stone M.D. 08/21/2021 5:09 PM Discharge Plan Visit Data Chief Complaint: Shortness of Breath/Dyspnea Stated Complaint: SOB ED Provider: Fabrice Ramirez Discharge Problem: Acute on chronic diastolic (congestive) heart failure, Hypomagnesemia, Pulmonary edema, Hyponatremia, Acute renal failure Patient Disposition: Admitted As Inpatient Discharge Instructions Interventions: ED Discharge Assessment Last Done: 08/21/21 22:04 Discharge Problem: Pulmonary edema Qualifiers: Chronicity: acute Qualified Code(s): J81.0 - Acute pulmonary edema Acute renal failure Qualifiers: Acute renal failure type: unspecified Qualified Code(s): N17.9 - Acute kidney failure, unspecified
[2021-08-22] MEDS: ACETAMINOPHEN 325 MG TAB PO PRN ×2 (04:43→15:09)
[2021-08-22] MEDS: LEVOTHYROXINE SODIUM 137 MCG TABLET PO SCH (06:26)
[2021-08-22 07:13] LABS: Hematocrit (blood only) 34.3 % (37-47); Hemoglobin 11.6 g/dL (12.0-16.0); Immature Granulocytes # (auto) 0.01 K/uL (0.00-0.02); Immature Granulocytes % (auto) 0.7 %; Lymphocytes # (auto) 0.15 K/uL (1.2-3.4); Lymphocytes % (auto) 10.2 %; Mean Corpuscular Hemoglobin 34.7 pg (25-34); Mean Corpuscular Hgb Conc 33.8 g/dL (32-36); Mean Corpuscular Volume 102.7 fL (80-100); Mean Platelet Volume 9.9 fL (7.4-10.4); Monocytes # (auto) 0.02 K/uL (0.11-0.59); Monocytes % (auto) 1.4 %; Neutrophils # (auto) 1.29 K/uL (1.4-6.5); Neutrophils % (auto) 87.7 %; Platelet Count 229 K/uL (130-400); RDW Coefficient of Variation 14.8 % (11.5-14.5); RDW Standard Deviation 55.6 fL (36.4-46.3); Red Blood Count 3.34 M/uL (4.2-5.4); White Blood Count 1.47 K/uL (4.8-10.8)
[2021-08-22 07:36] LABS: BUN Creatinine Ratio 18.3 (10-20); Calcium 8.7 mg/dl (8.5-10.1); Creatinine Clr Calc Pharmacy 49.2 ml/min; Est GFR (African American) 31.5 ml/min; Est GFR (Non-African American) 27.1 ml/min; Potassium 5.6 mmol/L (3.5-5.1)
[2021-08-22] MEDS ORDERED: traMADol HCL 50 MG TABLET ONE (07:54)
[2021-08-22] MEDS: traMADol HCL 50 MG TABLET PO SCH ×2 (08:00→20:37)
[2021-08-22] MEDS: METOPROLOL TARTRATE 50 MG TAB PO SCH ×2 (08:00→20:36)
[2021-08-22] MEDS: dilTIAZem HCL 180 MG CAPCR PO SCH (08:01)
[2021-08-22] MEDS: busPIRone 5 MG TAB PO SCH ×2 (08:01→20:36)
[2021-08-22] MEDS: VENLAFAXINE HCL XR 150 MG CAPXR PO SCH (08:01)
[2021-08-22] MEDS: PANTOprazole 40 MG TAB PO SCH (08:01)
[2021-08-22] MEDS: THIAMINE HCL 100 MG TAB PO SCH (08:02)
[2021-08-22] MEDS: MAGNESIUM OXIDE 400 MG TAB PO SCH ×3 (08:02→17:31)
[2021-08-22] MEDS: APIXABAN 5 MG TABLET PO SCH ×2 (08:02→20:36)
[2021-08-22] MEDS: FUROSEMIDE 40 MG/4 ML VIAL IV SCH (08:03)
[2021-08-22] MEDS: CETIRIZINE HCL 10 MG TABLET PO SCH (08:03)
[2021-08-22] MEDS: INSULIN ASPART PER UNIT SC SCH ×4 (08:03→21:07)
[2021-08-22] MEDS: AMIODARONE 200 MG TAB PO SCH (08:03)
[2021-08-22] MEDS: INSULIN GLARGINE SOLOSTAR 100 UNITS/ML 3 ML PEN SC SCH ×2 (08:04→21:07)
[2021-08-22 08:58] LABS: BUN Creatinine Ratio 18.7 (10-20); Calcium 8.7 mg/dl (8.5-10.1); Est GFR (African American) 32.3 ml/min; Est GFR (Non-African American) 27.8 ml/min; Potassium 5.5 mmol/L (3.5-5.1)
[2021-08-22] MEDS ORDERED: POTASSIUM CHLORIDE CRTAB 20 MEQ TABCR PO SCH (09:00)
[2021-08-22] MEDS: LORazepam 0.5 MG TAB PO PRN ×2 (09:45→17:12)
[2021-08-22] MEDS: CHOLECALCIFEROL 1,000 UNITS 25 MCG TAB PO SCH (12:13)
[2021-08-22] MEDS: CYANOCOBALAMIN (B-12) 500 MCG TABLET PO SCH (12:13)
--- NOTE | 2021-08-22 12:22 | Electrocardiogram Report ---
Test Reason : Blood Pressure : / mmHG Vent. Rate : 052 BPM Atrial Rate : 040 BPM P-R Int : 000 ms QRS Dur : 098 ms QT Int : 498 ms P-R-T Axes : 000 145 041 degrees QTc Int : 463 ms Poor data quality, interpretation may be adversely affected Atrial fibrillation with slow ventricular response Right axis deviation Low voltage QRS Abnormal ECG When compared with ECG of 14-NOV-2020 06:22, Nonspecific T wave abnormality no longer evident in Inferior leads Nonspecific T wave abnormality, worse in Lateral leads Confirmed by Ignacio Becker ([id number]) on 08/22/2021 12:21:50 PM Referred By: REFERRED SELF Confirmed By:Tico Becker
[2021-08-22 13:06] LABS: BUN Creatinine Ratio 19.9 (10-20); Calcium 8.7 mg/dl (8.5-10.1); Creatinine Clr Calc Pharmacy 34.4 ml/min; Est GFR (African American) 31.7 ml/min; Est GFR (Non-African American) 27.3 ml/min; Potassium 5.1 mmol/L (3.5-5.1)
[2021-08-22 13:09] LABS: BUN Creatinine Ratio 19.7 (10-20); Calcium 8.7 mg/dl (8.5-10.1); Creatinine Clr Calc Pharmacy 34.1 ml/min; Est GFR (African American) 31.3 ml/min; Potassium 5.2 mmol/L (3.5-5.1)
--- NOTE | 2021-08-22 15:33 | Hospitalist Progress Note ---
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 Acute on chronic HFpEF exacerbation -Echo 11/2020- EF 60-65%, severe biatrial dilation -Home diuresis regimen consists of Lasix 80 mg PO daily + 20 mg PRN -On admission, 19 kg weight increase from 11/24 -Suspect this current exacerbation is likely due to increased salt intake over past few weeks -CXR on admission- cardiomegaly, airspace opacities suggestive of pulmonary edema, pulmonary vascular congestion -Diurese with Lasix 80 mg IV daily, adjust pending volume status and kidney function- careful adjustment of dose with correction of chronic hyponatremia -Hold home KCl 40 meq daily while on diuresis -Daily standing weights, strict I's and O's -Daily BMP Hyponatremia -118 on admission, received 100ml hypertonic saline in ER - 08/22: hypertonic saline discontinued. Na improved to 123 AM, 124 on PM check - Continue hyponatremia correction with fluid restriction and gentle diuresis -Suspect dilutional/hypervolemic hyponatremia due to CHF exacerbation -Currently without any new arrhythmias or neurologic symptoms -BMP q4h, transition to daily once consistent trend upward -24 hr goal: no more than 6-8, adjust diuresis as needed GABRIELA -Cr 2.2 on admission, no known history of CKD -08/22: Cr improved to 1.96 -Suspect pre-renal etiology due to acute CHF exacerbation -On admission, concerns for urinary retention. Cordero was placed and is draining appropriately, consider further work-up once Cordero is out -Trend BMP Hyperkalemia -K 5.5 on admission -08/22: K 5.5 -Suspect related to CHF exacerbation and GABRIELA, expect this will improve with diuresis -Holding home KCl and Bactrim -Continue to trend BMP Paroxysmal atrial fibrillation -Known history of PAF s/p failed cardioversions 2x and difficult rate control -On admission, EKG showed Afib with slow ventricular response -Continue amiodarone 200 mg daily, diltiazem 360 mg daily, metoprolol 50 mg BID -Continue anticoagulation with Eliquis 5 mg BID Hypomagnesemia -1.6 on admission- improving on repeat labs -Repleted with 2g Mg in ER -Continue magnesium oxide 400 mg daily -Trend Mg Hypoxia -Current oxygen requirement suspect likely due to CHF exacerbation -Placed on 3L NC in ER, 85 on admission, now saturating well on 3L -Likely also component of VALERIE/OHS (never used CPAP at home) + chronic CHF -Home oxygen is 2L NC at night only- should consider sleep studies outpatient if not already done -O2 goal > 92% -Albuterol PRN -Pt does have 15 pack year smoking history, quit 7 years prior- never formally diagnosed with COPD, can consider PFTs as outpatient 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 -On daily suppressive Bactrim, holding due to GABRIELA -Wound care consult ordered -Pt regularly uses Aquacel foam at home -Currently no concern for acute infection Diabetes -Holding home metformin 1000 mg BID -Lantus 16u BID, ISS -Last known A1C of 5.0% in 11/2020 Anxiety -Continue buspirone 10 mg daily, Effexor 150 mg daily -Ativan 0.5 Hs PRN (this is a home medication) Chronic pain -Continue tramadol 50 mg PO BID HLD -Continue atorvastatin 40 mg daily HTN -Continue metoprolol 50 mg BID, diltiazem 360 mg daily Hypothyroid -Continue synthroid 137 mcg daily GERD -Continue pantoprazole 40 mg daily FENGI: Carb consistent, heart healthy, low salt, 2000 cc fluids Code status: Full DVT ppx: Eliquis Isolation: None Dispo: Med/Surg with Tele. PT/OT ordered as pt's functional status declining- anticipate d/c to SNF vs rehab (2) Type 2 diabetes mellitus: (3) Hypothyroidism: (4) Anemia: (5) Hyperkalemia: (6) VALERIE (obstructive sleep apnea): (7) Chronic infection of knee joint prosthesis: (8) Hypomagnesemia: (9) Anxiety: (10) Paroxysmal a-fib: Admission and Anticipated Discharge Date Admission Date: August 21, 2021 Supervising Physician Co-Signing Physician Notes I also saw the patient and confirmed vega portions of the history and physical examination. I agree with the impression and plan as noted in the medical student documentation. 61-year-old female with multiple medical comorbidities, specifically, heart failure with preserved EF (EF of 60 to 65% per echo November/2020) paroxysmal atrial fibrillation, diabetes with neuropathy, multiple amputations, chronic hypoxic respiratory failure on home O2 nightly. She presented with complaint of progressive throat and chest congestion and edema of bilateral lower extremities as well as abdominal wall, orthopnea and thinks that she may have gained weight although she has not weighed herself recently. Today, the patient feels slightly better in terms of her shortness of breath when compared to yesterday. Exam 100/65, 67, 20, 37, 92% on 3 L/min She is seated in bed eating lunch. She is alert and oriented. No distress is appreciated. She can speak in full complete sentences without stopping Heart is irregularly irregular Lungs with good air exchange, slight crackles in the bases bilaterally Abdominal wall pitting edema as well as presacral edema Extremitiesstatus post toe amputations, 2+ pitting edema Flaking skin with multiple small wounds, generally erythematous and mildly tender, although no focal areas of increased erythema to suggest acute infection Data Hemoglobin 11.6, WBC 1.47, platelet count 229 Sodium 118, 123, 124 Potassium 5.5, 5.2, 5.0 BUN 39, creatinine 2.01 AST 50, Alk Phos 144 TSH 9.357 Free T4 1.04 Acute on chronic HFpEF exacerbation Hypervolemic Hyponatremia GABRIELA Hyperkalemia Paroxysmal A-fib HTN Continue gentle diuresis, monitor serum sodium levels I suspect this has been a very gradual decline in her serum sodium levels, thus will not continue 3% saline Serum potassium should also improve with diuresis, but will continue to monitor Wound care for bilateral lower extremity wounds, I think this is more chronic given the symmetry do not suspect a cellulitis Subjective Chely's dyspnea feels slightly improved this morning. She still notes the abdominal firmness and edema. She states that she knows her diet has been slipping and hasnt paid attention to salt; she noted a relationship between her feeling more fatigued and less energy, saying she was sleeping all day when her diet changed. Denies any sore throat, wheezing, chest pain, palpitations, abdominal pain this morning. Review of Systems Review of Systems: Per HPI Physical Exam Physical Exam: General: Morbidly obese female laying in bed, nasal cannula in place, no acute distress HEENT: moist mucous membranes, EOMI, PERRLA, anicteric sclerae Neck: supple, no appreciated JVD b/l though assessment limited by body habitus CV: regular rate, irregular rhythm, normal S1, S2, no murmurs noted Resp: reduced inspiratory effort, diminished breath sounds diffusely with bibasilar and middle lobe crackles b/l, no increased work of breathing Abd: slightly firm, distended, no fluid wave, nontender to palpation, normal bowel sounds Extremities: 1+ pitting edema of b/l LE, multiple toe amputations b/l, chronic draining sinus with ulceration of RLE, multiple yellow plaques and chronic venous stasis changes of b/l LE, distal LE pulses intact b/l, lesions are nontender and lack warmth Neuro: grossly alert and oriented, no gross focal motor or sensory deficits Results & Data Results & Data ([facility]) Vital Signs (Past 12 Hours) Vital Signs Temp Pulse Pulse Resp BP BP Pulse Ox 08/22/21 12:34 36.8 C 81 19 108/70 95 08/22/21 08:18 36.9 C 73 20 102/66 95 08/22/21 08:00 72 (1) Chronic infection of knee joint prosthesis Encounter type: initial encounter Qualified Code(s): T84.59XA - Infection and inflammatory reaction due to other internal joint prosthesis, initial encounter; Z96.659 - Presence of unspecified artificial knee joint
[2021-08-22 16:21] LABS: BUN Creatinine Ratio 19.4 (10-20); Calcium 8.8 mg/dl (8.5-10.1); Creatinine Clr Calc Pharmacy 33.6 ml/min; Est GFR (African American) 30.7 ml/min; Est GFR (Non-African American) 26.5 ml/min
[2021-08-22] MEDS: AMMONIUM LACTATE 12% LOTION 225 GM BTL EXT SCH (16:39)
[2021-08-22] MEDS: ATORVASTATIN 40 MG TAB PO SCH (20:36)
[2021-08-22] MEDS: MONTELUKAST SODIUM 10 MG TABLET PO SCH (20:36)
[2021-08-23] MEDS: LEVOTHYROXINE SODIUM 137 MCG TABLET PO SCH (06:04)
[2021-08-23 06:46] LABS: Hematocrit (blood only) 32.1 % (37-47); Hemoglobin 10.9 g/dL (12.0-16.0); Immature Granulocytes # (auto) 0.01 K/uL (0.00-0.02); Immature Granulocytes % (auto) 0.2 %; Lymphocytes # (auto) 0.26 K/uL (1.2-3.4); Lymphocytes % (auto) 5.9 %; Mean Corpuscular Hemoglobin 35.3 pg (25-34); Mean Corpuscular Volume 103.9 fL (80-100); Mean Platelet Volume 9.6 fL (7.4-10.4); Monocytes % (auto) 11.4 %; Neutrophils # (auto) 3.61 K/uL (1.4-6.5); Neutrophils % (auto) 82.5 %; Platelet Count 230 K/uL (130-400); RDW Coefficient of Variation 14.7 % (11.5-14.5); RDW Standard Deviation 56.4 fL (36.4-46.3); Red Blood Count 3.09 M/uL (4.2-5.4); White Blood Count 4.38 K/uL (4.8-10.8)
[2021-08-23 06:53] LABS: BUN Creatinine Ratio 20.3 (10-20); Calcium 8.8 mg/dl (8.5-10.1); Creatinine Clr Calc Pharmacy 36.4 ml/min; Est GFR (African American) 34.6 ml/min; Est GFR (Non-African American) 29.9 ml/min; Potassium 4.8 mmol/L (3.5-5.1)
[2021-08-23] MEDS: INSULIN ASPART PER UNIT SC SCH ×4 (08:39→20:14)
[2021-08-23] MEDS: INSULIN GLARGINE SOLOSTAR 100 UNITS/ML 3 ML PEN SC SCH ×2 (08:41→20:15)
[2021-08-23] MEDS: dilTIAZem HCL 180 MG CAPCR PO SCH (08:45)
[2021-08-23] MEDS: VENLAFAXINE HCL XR 150 MG CAPXR PO SCH (08:45)
[2021-08-23] MEDS: THIAMINE HCL 100 MG TAB PO SCH (08:46)
[2021-08-23] MEDS: MAGNESIUM OXIDE 400 MG TAB PO SCH ×3 (08:46→18:18)
[2021-08-23] MEDS: PANTOprazole 40 MG TAB PO SCH (08:46)
[2021-08-23] MEDS: APIXABAN 5 MG TABLET PO SCH ×2 (08:46→20:23)
[2021-08-23] MEDS: busPIRone 5 MG TAB PO SCH ×2 (08:46→20:23)
[2021-08-23] MEDS: CETIRIZINE HCL 10 MG TABLET PO SCH (08:46)
[2021-08-23] MEDS: AMIODARONE 200 MG TAB PO SCH (08:46)
[2021-08-23] MEDS: METOPROLOL TARTRATE 50 MG TAB PO SCH ×2 (08:46→20:06)
[2021-08-23] MEDS: FUROSEMIDE 40 MG/4 ML VIAL IV SCH (08:47)
[2021-08-23] MEDS: traMADol HCL 50 MG TABLET PO SCH ×2 (08:48→20:22)
[2021-08-23] MEDS: AMMONIUM LACTATE 12% LOTION 225 GM BTL EXT SCH (08:49)
--- NOTE | 2021-08-23 11:13 | Hospitalist Progress Note ---
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 Acute on chronic HFpEF exacerbation -Echo 11/2020- EF 60-65%, severe biatrial dilation -Home diuresis regimen consists of Lasix 80 mg PO daily + 20 mg PRN -On admission, 19 kg weight increase from 11/24 -Suspect this current exacerbation is likely due to increased salt intake over past few weeks -CXR on admission- cardiomegaly, airspace opacities suggestive of pulmonary edema, pulmonary vascular congestion -Diurese with Lasix 80 mg IV daily, adjust pending volume status and kidney function- careful adjustment of dose with correction of chronic hyponatremia -08/23: Given improvement in hyponatremia to 127, introduce 40 mg IV Lasix in PM in addition to AM Lasix 80 mg IV -Hold home KCl 40 meq daily while on diuresis -Daily standing weights, strict I's and O's -Daily BMP Hyponatremia -118 on admission, severe range, received 100ml hypertonic saline in ER - 08/22: hypertonic saline discontinued. Na improved to 123 AM, 124 on PM check -08/23: improved to 127 -Continue hyponatremia correction with fluid restriction and diuresis -Suspect dilutional/hypervolemic hyponatremia due to CHF exacerbation -Currently without any new arrhythmias or neurologic symptoms -Daily BMP -24 hr goal: no more than 8-10mEQ/daily, adjust diuresis as needed GABRIELA -Cr 2.2 on admission, no known history of CKD -08/22: Cr improved to 1.96 08/23: Cr improvement to 1.82 - baseline Cr ~ 1.0 -Suspect pre-renal etiology due to acute CHF exacerbation -On admission, concerns for urinary retention. Cordero was placed and is draining appropriately, consider further work-up once Cordero is out. -Trend BMP Candidal dermatitis -08/23: new candidal dermatitis rash seen on the lower abdomen and inguinal folds. erythematous, pruritic, non-vesicular. clear line of demarcation -Wound consult ordered -Nystatin powder ordered with dry cloths Paroxysmal atrial fibrillation -Known history of PAF s/p failed cardioversions 2x and difficult rate control -On admission, EKG showed Afib with slow ventricular response -Continue amiodarone 200 mg daily, diltiazem 360 mg daily, metoprolol 50 mg BID -Continue anticoagulation with Eliquis 5 mg BID Hypomagnesemia -1.6 on admission- improving on repeat labs -Repleted with 2g Mg in ER -Continue magnesium oxide 400 mg daily -Trend Mag Hyperkalemia- resolved -K 5.5 on admission -08/22: K 5.5 -08/23: K normal at 4.8 -Suspect related to CHF exacerbation and GABRIELA, expect this will improve with diuresis -Holding home KCl -Continue to trend BMP Hypoxia -Current oxygen requirement suspect likely due to CHF exacerbation -Placed on 3L NC in ER, 85 on admission, now saturating well on 3L -08/23: Titrate oxygen to 2L -Likely also component of VALERIE/OHS (never used CPAP at home)-consider sleep studies on discharge -Pt does have 15 pack year smoking history, quit 7 years prior- never formally diagnosed with COPD, can consider PFTs as outpatient -Albuterol PRN -Consider CXR if congestion, wheezing, lower lobe crackles do not resolve with continued diuresis 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 -On daily suppressive Bactrim, held for first 2 days of hospital admission due to GABRIELA -08/23: suppressive Bactrim resumed (800 mg/160mg BID) -Wound care consult ordered -Pt regularly uses Aquacel foam at home -Currently no concern for acute infection Diabetes -Holding home metformin 1000 mg BID -Lantus 16u BID, ISS -Last known A1C of 5.0% in 11/2020 Anxiety -Continue buspirone 10 mg daily, Effexor 150 mg daily -Ativan 0.5 Hs PRN (this is a home medication) Chronic pain -Continue tramadol 50 mg PO BID HLD -Continue atorvastatin 40 mg daily HTN -Continue metoprolol 50 mg BID, diltiazem 360 mg daily Hypothyroid -Continue synthroid 137 mcg daily GERD -Continue pantoprazole 40 mg daily FENGI: Carb consistent, heart healthy, low salt, 2000 cc fluids Code status: Full DVT ppx: Eliquis Isolation: None Dispo: Med/Surg with Tele. PT/OT ordered as pt's functional status declining- anticipate d/c to SNF vs rehab (2) Type 2 diabetes mellitus: (3) Hypothyroidism: (4) Anemia: (5) Hyperkalemia: (6) VALERIE (obstructive sleep apnea): (7) Chronic infection of knee joint prosthesis: (8) Hypomagnesemia: (9) Anxiety: (10) Paroxysmal a-fib: Admission and Anticipated Discharge Date Admission Date: August 21, 2021 Supervising Physician Co-Signing Physician Notes Patient seen and examined with medical student Violet Fuentes and PGY-3 Dr. Kumari. Agree with history, exam findings, assessment and plan of care as outlined. In brief, Ms. 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 Feels that the edema continues to improve. Prior to admission, reports frequent urinary hesitancy and urgency without urine output. No dysuria. VS and nursing notes reviewed. Non-toxic appearing. +2 pitting edema to the hips. +1 pitting edema over the abdominal wall. Erythema, maceration in the pannus fold right >L. Labs reviewed. 1. Acute on chronic HFpEF. Pulmonary edema/effusions + anasarca. Due to increased salt intake. Diurese with Lasix 80mmg IV daily, today added 40mg Lasix in the afternoon. Continue with daily weights, I/Os, fluid restriction. Dry weight is 188lbs. 2. Hyponatremia. Na 118 on admission, now 127. Improving. Suspect that this will continue to normalize with additional diuresis. 3. GABRIELA. Cr 2.2 on admission. 1.82. Baseline Cr is ~1.0. 4. Hyperkalemia. Normalized. Continue to hold potassium supplement and restart Bactrim. 5. pAF. Continue amiodarone 200mg, diltiazem 360mg, metoprolol 50mg BID. AC with Eliquis 5mg BID. 6. Hypoxia. 3L O2. Continue wean down to home O2 levels. 7. Chronic draining sinus from right knee arthroplasty. Restart suppressive Bactrim. Wound care. 8. Diabetes. Holding home metformin. Basal-bolus insulin. 9. Intertrigo. Nystatin powder. Keep area dry. Appreciate wound care recommendations for this area. 10. Bacteriuria. ?asymptomatic. +nitrites on urine dip but abx deferred for now. Urine culture growing out gram negative bacilli. Dispo: pending clinical improvement. Subjective Chely's dyspnea feels further improved this morning. She states that for the first time in a while she feels she can get a full breath of air in. She still notes some wheezing and congestion. She has not had any bowel movements since arriving to the hospital, but doesn't feel constipated. She notes that she has had some trouble swallowing the food, which isn't new for her. Denies reflux, or prior diagnosis of GERD. Does have some retrosternal chest pain with eating which she attributed to her Afib. Denies any lightheadedness, dizziness, fever, chills, nausea. Review of Systems Review of Systems: Per HPI Physical Exam Physical Exam: General: Morbidly obese female laying in bed, nasal cannula in place, no acute distress HEENT: moist mucous membranes, EOMI, PERRLA, anicteric sclerae Neck: supple, no appreciated JVD b/l though assessment limited by body habitus CV: regular rate, irregular rhythm, normal S1, S2, no murmurs noted Resp: reduced inspiratory effort, diminished breath sounds diffusely with bibasilar lobe crackles b/l, no increased work of breathing Abd: slightly firm, particularly in suprapubic region, distended, no fluid wave, nontender to palpation, normal bowel sounds. Erythematous, pruritic rash on the inguinal folds and lower abdominal folds. No vesicles or bullae. No weeping or poorly demarcated line. Extremities: 1+ pitting edema of b/l LE, multiple toe amputations b/l, chronic draining sinus with ulceration of RLE, multiple yellow plaques and chronic venous stasis changes of b/l LE, distal LE pulses intact b/l, lesions are nontender and lack warmth Neuro: grossly alert and oriented, no gross focal motor or sensory deficits Results & Data Results & Data ([facility]) Vital Signs (Past 12 Hours) Vital Signs Temp Pulse Pulse Resp BP BP Pulse Ox 08/23/21 10:44 91 08/23/21 07:16 36.6 C 69 21 120/81 99 08/23/21 07:13 60 08/23/21 03:33 36.3 C L 82 18 118/82 95 08/22/21 23:42 36.8 C 70 18 116/67 92 (1) Chronic infection of knee joint prosthesis Encounter type: initial encounter Qualified Code(s): T84.59XA - Infection and inflammatory reaction due to other internal joint prosthesis, initial encounter; Z96.659 - Presence of unspecified artificial knee joint
[2021-08-23] MEDS: CHOLECALCIFEROL 1,000 UNITS 25 MCG TAB PO SCH (12:04)
[2021-08-23] MEDS: CYANOCOBALAMIN (B-12) 500 MCG TABLET PO SCH (12:04)
[2021-08-23] MEDS ORDERED: POLYETHYLENE (MIRALAX) 17 GM PACK PO ONE (13:34)
[2021-08-23] MEDS ORDERED: FUROSEMIDE 40 MG/4 ML VIAL IV ONE ×2 (13:38→15:45)
[2021-08-23] MEDS: SULFAMETHOXAZOLE/TRIMETHOPRIM DS 800/160MG TAB PO SCH ×2 (14:32→20:23)
[2021-08-23] MEDS ORDERED: MELATONIN 3 MG TAB PO PRN (17:46)
[2021-08-23] MEDS: LORazepam 0.5 MG TAB PO PRN (19:27)
[2021-08-23] MEDS: MONTELUKAST SODIUM 10 MG TABLET PO SCH (20:23)
[2021-08-23] MEDS: NYSTATIN POWDER 15GM BTL EXT SCH (20:26)
[2021-08-23] MEDS: ATORVASTATIN 40 MG TAB PO SCH (21:12)
[2021-08-24] MEDS: LEVOTHYROXINE SODIUM 137 MCG TABLET PO SCH (06:24)
[2021-08-24 06:49] LABS: Basophils # (auto) 0.01 K/uL (0-0.2); Basophils % (auto) 0.2 %; Eosinophils # (auto) 0.03 K/uL (0-0.5); Eosinophils % (auto) 0.6 %; Hematocrit (blood only) 34.4 % (37-47); Hemoglobin 11.2 g/dL (12.0-16.0); Immature Granulocytes # (auto) 0.01 K/uL (0.00-0.02); Immature Granulocytes % (auto) 0.2 %; Lymphocytes # (auto) 0.81 K/uL (1.2-3.4); Lymphocytes % (auto) 14.9 %; Mean Corpuscular Hemoglobin 34.9 pg (25-34); Mean Corpuscular Hgb Conc 32.6 g/dL (32-36); Mean Corpuscular Volume 107.2 fL (80-100); Mean Platelet Volume 9.5 fL (7.4-10.4); Neutrophils # (auto) 3.99 K/uL (1.4-6.5); Neutrophils % (auto) 73.1 %; Platelet Count 217 K/uL (130-400); RDW Coefficient of Variation 15.2 % (11.5-14.5); RDW Standard Deviation 59.3 fL (36.4-46.3); Red Blood Count 3.21 M/uL (4.2-5.4); White Blood Count 5.45 K/uL (4.8-10.8)
--- NOTE | 2021-08-24 07:02 | Hospitalist Progress Note ---
Date of Service August 24, 2021 Assessment & Plan (1) Acute on chronic diastolic (congestive) heart failure: Plan: 61 yo F with PMH HFpEF (EF 60-65% in 11/2020) who was admitted for acute on chronic worsening SOB, thought to be due to an acute exacerbation of her chronic CHF. Acute on chronic HFpEF exacerbation -Echo 11/2020- EF 60-65%, severe biatrial dilation -Home diuresis regimen consists of Lasix 80 mg PO daily + 20 mg PRN -CXR on admission- cardiomegaly, airspace opacities suggestive of pulmonary edema, pulmonary vascular congestion -Suspect this current exacerbation is likely due to increased salt intake (dietary indiscretion) over past few weeks -Diurese with Lasix 80 mg IV qam + 40mg Iv qpm -Dry weight is 85kg --> patient was 110kg on admission, at 98kg today. - Net negative 5 liters; pedal edema was thigh high on arrival, now below the knee -Daily standing weights, strict I's and O's -Daily BMP Hyponatremia -118 on admission, severe range, received 100ml hypertonic saline in ER. Na up to 130 today. -Continue hyponatremia correction with fluid restriction and diuresis -Suspect dilutional/hypervolemic hyponatremia due to CHF exacerbation -Daily BMP -24 hr goal: no more than 8-10mEQ/daily, adjust diuresis as needed GABRIELA -Cr 2.2 on admission, no known history of CKD; Cr at 1.44 today - baseline Cr ~ 1.0 -Suspect pre-renal etiology due to acute CHF exacerbation -On admission, concerns for urinary retention. Medel was placed and is draining appropriately, consider further work-up once Medel is out. -Trend BMP Intertrigo -08/23: new candidal dermatitis rash seen on the lower abdomen and inguinal folds. erythematous, pruritic, non-vesicular. clear line of demarcation -Wound consult ordered -Nystatin powder ordered with dry cloths Paroxysmal atrial fibrillation -Known history of PAF s/p failed cardioversions 2x and difficult rate control -On admission, EKG showed Afib with slow ventricular response -Continue amiodarone 200 mg daily, diltiazem 360 mg daily, metoprolol 50 mg BID -Continue anticoagulation with Eliquis 5 mg BID Hypomagnesemia- resolved -1.6 on admission- improving with repletion -Continue magnesium oxide 400 mg daily Hyperkalemia- resolved -K 5.5 on admission; has since normalized -Suspect related to CHF exacerbation and GABRIELA, expect this will improve with diuresis -resume home KCl -Continue to trend BMP Hypoxia -Current oxygen requirement suspect likely due to CHF exacerbation -Placed on 3L NC in ER, 85 on admission, now saturating well on 3L; wean as tolerated -Likely also component of VALERIE/OHS (never used CPAP at home) consider sleep study on discharge -Pt does have 15 pack year smoking history, quit 7 years prior- never formally diagnosed with COPD, can consider PFTs as outpatient -Albuterol PRN 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 -On daily suppressive Bactrim, held for first 2 days of hospital admission due to GABRIELA -08/23: suppressive Bactrim resumed (800 mg/160mg BID) -Wound care consult ordered -Pt regularly uses Aquacel foam at home -Currently no concern for acute infection Urinary Retention - reported by patient - medel cath in due to aggressive dieresis and wheelchair bound patient - spontaneous void trial at the time of discharge followed by bladder scan to assess for residual volume. If elevated, consider initiation of Flomax. Diabetes -Holding home metformin 1000 mg BID -Lantus 16u BID, ISS -Last known A1C of 5.0% in 11/2020 Anxiety -Continue buspirone 10 mg daily, Effexor 150 mg daily -Ativan 0.5 Hs PRN (this is a home medication) Chronic pain -Continue tramadol 50 mg PO BID HLD -Continue atorvastatin 40 mg daily HTN -Continue metoprolol 50 mg BID, diltiazem 360 mg daily Hypothyroid -Continue synthroid 137 mcg daily GERD -Continue pantoprazole 40 mg daily FENGI: Carb consistent, heart healthy, low salt, 2000 cc fluids Code status: Full DVT ppx: Eliquis Isolation: None Dispo: Med/Surg with Tele. PT/OT ordered as pt's functional status declining- anticipate d/c to SNF vs rehab (2) Type 2 diabetes mellitus: (3) Hypothyroidism: (4) Anemia: (5) Hyperkalemia: (6) VALERIE (obstructive sleep apnea): (7) Chronic infection of knee joint prosthesis: (8) Hypomagnesemia: (9) Anxiety: (10) Paroxysmal a-fib: Admission and Anticipated Discharge Date Admission Date: August 21, 2021 Supervising Physician Co-Signing Physician Notes Patient seen and examined with medical student Violet Fuentes and PGY-3 Dr. Kumari. Agree with history, exam findings, assessment and plan of care as outlined. In brief, Ms. 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 Feels that the edema continues to improve. Legs are less painful. Prior to admission, reports frequent urinary hesitancy and urgency without urine output. No dysuria. Has a Medel right now. VS and nursing notes reviewed. Non-toxic appearing. +2 pitting edema to the hips. trace pitting edema over the abdominal wall. Erythema, maceration in the pannus fold. Labs reviewed. 1. Acute on chronic HFpEF. Pulmonary edema/effusions + anasarca. Due to increased salt intake. Diurese with Lasix 80mmg IV daily and 40mg IV Lasix in the afternoon. Continue with daily weights, I/Os, fluid restriction. Dry weight is 188lbs. 2. Hyponatremia. Na 118 on admission, now 130. Improving. Suspect that this will continue to normalize with additional diuresis. 3. GABRIELA. Cr 2.2 on admission. 1.4. Baseline Cr is ~1.0. 4. Hyperkalemia. Normalized. Continue to hold potassium supplement and restarted Bactrim. 5. pAF. Continue amiodarone 200mg, diltiazem 360mg, metoprolol 50mg BID. AC with Eliquis 5mg BID. 6. Hypoxia. 3L O2. Continue wean down to home O2 levels. 7. Chronic draining sinus from right knee arthroplasty. Restarted suppressive Bactrim. Wound care. 8. Diabetes. Holding home metformin. Basal-bolus insulin. 9. Intertrigo. Nystatin powder. Keep area dry. Appreciate wound care recommendations for this area. 10. Bacteriuria. with urinary retention prior to admission x weeks so unclear if this is related to cystitis vs other issue like POP. +nitrites on urine dip but abx deferred for now. Urine culture growing out E. Coli that is resistant to Bactrim. Will treat with cipro x 3 days. Dispo: pending continued diuresis. Will need rehab at discharge--PT/OT evals done here. Subjective No acute events overnight. She does desire to go to rehab after discharge. She does report a concern for urinary retention prior to this hospitalization. Review of Systems Review of Systems: All systems reviewed & are unremarkable except as noted in HPI & below Physical Exam Constitutional: WD/WN, vitals as above + obese and cooperative; no acute distress Eyes: + anicteric sclerae ENMT: external ear and nose normal, oropharynx normal Neck: normal visual inspection and trachea midline Respiratory: no respiratory distress, no labored breathing and no cough Auscultation: + rales (bilateral lung bases ) Cardiovascular: Rate/Rhythm: + irregularly irregular Heart Sounds: normal S1 and normal S2; no murmur Extremities: + pedal edema (to below the knee) Gastrointestinal (Abdomen): Inspection/Auscultation: + significant pannus Musculoskeletal: Head/Neck/Chest: normocephalic and head atraumatic Skin: + erythema (in abdominal skin folds) Neurologic: moves all extremities Psychiatric: A+Ox3, euthymic affect Genitourinary: Medel catheter in place, draining yellow urine without visible blood clots Results & Data Results & Data ([facility]) Vital Signs (Past 12 Hours) Vital Signs Temp Pulse Pulse Resp BP Pulse Ox 08/24/21 03:00 36.6 C 60 18 122/83 95 08/23/21 22:59 36.7 C 70 18 115/72 94 08/23/21 22:34 90 08/23/21 22:19 59 L 08/23/21 19:29 97 08/23/21 19:07 36.6 C 62 18 114/70 96 Resident Activity Tracking Resident Involvement: Resident Care Provided Care Provided: Adult Hospital Medicine (1) Chronic infection of knee joint prosthesis Encounter type: initial encounter Qualified Code(s): T84.59XA - Infection and inflammatory reaction due to other internal joint prosthesis, initial encounter; Z96.659 - Presence of unspecified artificial knee joint
[2021-08-24 07:54] LABS: BUN Creatinine Ratio 24.3 (10-20); Calcium 8.8 mg/dl (8.5-10.1); Est GFR (Non-African American) 39.6 ml/min; Potassium 4.4 mmol/L (3.5-5.1)
[2021-08-24] MEDS: INSULIN ASPART PER UNIT SC SCH ×4 (07:54→20:42)
[2021-08-24] MEDS: INSULIN GLARGINE SOLOSTAR 100 UNITS/ML 3 ML PEN SC SCH ×2 (08:00→20:45)
[2021-08-24] MEDS: traMADol HCL 50 MG TABLET PO SCH ×2 (08:02→20:49)
[2021-08-24] MEDS: AMMONIUM LACTATE 12% LOTION 225 GM BTL EXT SCH (08:02)
[2021-08-24] MEDS: NYSTATIN POWDER 15GM BTL EXT SCH ×2 (08:03→20:41)
[2021-08-24] MEDS: AMIODARONE 200 MG TAB PO SCH (08:29)
[2021-08-24] MEDS: PANTOprazole 40 MG TAB PO SCH (08:29)
[2021-08-24] MEDS: APIXABAN 5 MG TABLET PO SCH ×2 (08:30→20:41)
[2021-08-24] MEDS: VENLAFAXINE HCL XR 150 MG CAPXR PO SCH (08:30)
[2021-08-24] MEDS: dilTIAZem HCL 180 MG CAPCR PO SCH (08:30)
[2021-08-24] MEDS: METOPROLOL TARTRATE 50 MG TAB PO SCH ×2 (08:31→20:41)
[2021-08-24] MEDS: SULFAMETHOXAZOLE/TRIMETHOPRIM DS 800/160MG TAB PO SCH ×2 (08:31→20:41)
[2021-08-24] MEDS: THIAMINE HCL 100 MG TAB PO SCH (08:31)
[2021-08-24] MEDS: busPIRone 5 MG TAB PO SCH ×2 (08:31→20:41)
[2021-08-24] MEDS: CETIRIZINE HCL 10 MG TABLET PO SCH (08:31)
[2021-08-24] MEDS: MAGNESIUM OXIDE 400 MG TAB PO SCH ×3 (08:31→17:53)
[2021-08-24] MEDS: FUROSEMIDE 40 MG/4 ML VIAL IV SCH ×2 (08:32→15:58)
[2021-08-24] MEDS: CHOLECALCIFEROL 1,000 UNITS 25 MCG TAB PO SCH (12:11)
[2021-08-24] MEDS: CYANOCOBALAMIN (B-12) 500 MCG TABLET PO SCH (12:11)
[2021-08-24] MEDS: CIPROFLOXACIN 250 MG TAB PO SCH ×2 (12:21→23:08)
[2021-08-24] MEDS: LORazepam 0.5 MG TAB PO PRN ×2 (13:44→22:17)
[2021-08-24] MEDS: ACETAMINOPHEN 325 MG TAB PO PRN (16:00)
[2021-08-24] MEDS: MONTELUKAST SODIUM 10 MG TABLET PO SCH (20:41)
[2021-08-24] MEDS: ATORVASTATIN 40 MG TAB PO SCH (20:41)
[2021-08-25] MEDS: LEVOTHYROXINE SODIUM 137 MCG TABLET PO SCH (05:17)
[2021-08-25 06:59] LABS: BUN Creatinine Ratio 26.2 (10-20); Calcium 8.6 mg/dl (8.5-10.1); Est GFR (African American) 65.8 ml/min; Est GFR (Non-African American) 56.8 ml/min; Potassium 4.4 mmol/L (3.5-5.1)
--- NOTE | 2021-08-25 07:44 | Hospitalist Progress Note ---
Date of Service August 25, 2021 Assessment & Plan (1) Acute on chronic diastolic (congestive) heart failure: Plan: 61 yo F with PMH HFpEF (EF 60-65% in 11/2020) who was admitted for acute on chronic worsening SOB, thought to be due to an acute exacerbation of her chronic CHF. Acute on chronic HFpEF exacerbation -Echo 11/2020- EF 60-65%, severe biatrial dilation -Home diuresis regimen consists of Lasix 80 mg PO daily + 20 mg PRN -CXR on admission- cardiomegaly, airspace opacities suggestive of pulmonary edema, pulmonary vascular congestion -Suspect this current exacerbation is likely due to increased salt intake (dietary indiscretion) over past few weeks -Diurese with Lasix 80 mg IV qam + 40mg Iv qpm -Dry weight is 85kg --> patient was 110kg on admission, at 95kg today. -Net negative 9 liters; pedal edema was thigh high on arrival, now below the knee -Daily standing weights, strict I's and O's -Daily BMP Hyponatremia -118 on admission, severe range, received 100ml hypertonic saline in ER. Na up to 134 today. -Continue hyponatremia correction with fluid restriction and diuresis -Suspect dilutional/hypervolemic hyponatremia due to CHF exacerbation -Daily BMP -24 hr goal: no more than 8-10mEQ/daily, adjust diuresis as needed GABRIELA -Cr 2.2 on admission, no known history of CKD; Cr at 1.07 today - baseline Cr ~ 1.0 - Suspect pre-renal etiology due to acute CHF exacerbation - On admission, concerns for urinary retention. Unsure if this is due to UTI. Medel was placed and is draining appropriately, consider further work-up once Medel is out. - Trend BMP Intertrigo -08/23: new candidal dermatitis rash seen on the lower abdomen and inguinal folds. erythematous, pruritic, non-vesicular. clear line of demarcation. Clinically with some improvement. -Wound consult ordered -Nystatin powder ordered with dry cloths Paroxysmal atrial fibrillation -Known history of PAF s/p failed cardioversions 2x and difficult rate control -On admission, EKG showed Afib with slow ventricular response -Continue amiodarone 200 mg daily, diltiazem 360 mg daily, metoprolol 50 mg BID -Continue anticoagulation with Eliquis 5 mg BID Hypomagnesemia- resolved -1.6 on admission- improving with repletion -Continue magnesium oxide 400 mg daily Hyperkalemia- resolved -K 5.5 on admission; has since normalized -Suspect related to CHF exacerbation and GABRIELA, improved with diuresis -resume home KCl -Continue to trend BMP Hypoxia -Current oxygen requirement suspect likely due to CHF exacerbation; uses 3L via NC at home, nighttime only -Placed on 3L NC in ER, 85 on admission, now saturating well on 3L; wean as tolerated -Likely also component of VALERIE/OHS (never used CPAP at home) consider sleep study on discharge -Pt does have 15 pack year smoking history, quit 7 years prior- never formally diagnosed with COPD, can consider PFTs as outpatient -Albuterol PRN Urinary Tract Infection - urine culture from 08/21/21 growing ecoli resistant to Bactrim, Macrobid and cephalosporins - patient did report a sensation of urinary retention (ie feeling urge to urinate without getting much volume out) - will presume the above is outbound call center representative of symptomatic UTI and treat with Cipro 250gm BID for 3 days 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 If elevated, consider initiation of Flomax. Diabetes -Holding home metformin 1000 mg BID -Lantus 16u BID, ISS --> dose reduced to 12u BID on 08/25/21 due to several hypoglycemic readings -Last known A1C of 5.0% in 11/2020 Anxiety -Continue buspirone 10 mg daily, Effexor 150 mg daily -Ativan 0.5 Hs PRN (this is a home medication) Chronic pain -Continue tramadol 50 mg PO BID HLD -Continue atorvastatin 40 mg daily HTN -Continue metoprolol 50 mg BID, diltiazem 360 mg daily Hypothyroid -Continue synthroid 137 mcg daily GERD -Continue pantoprazole 40 mg daily FENGI: Carb consistent, heart healthy, low salt, 1999 cc fluids Code status: Full DVT ppx: Eliquis Isolation: None Dispo: Med/Surg. PT/OT ordered as pt's functional status declining- anticipate d/c to SNF vs rehab (2) Type 2 diabetes mellitus: (3) Hypothyroidism: (4) Anemia: (5) Hyperkalemia: (6) VALERIE (obstructive sleep apnea): (7) Chronic infection of knee joint prosthesis: (8) Hypomagnesemia: (9) Anxiety: (10) Paroxysmal a-fib: Admission and Anticipated Discharge Date Admission Date: August 21, 2021 Supervising Physician Co-Signing Physician Notes Patient seen and examined with PGY-3 Dr. Kumari. Agree with history, exam findings, assessment and plan of care as outlined. In brief, Ms. 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 Feels that the edema continues to improve. Legs are less painful. VS and nursing notes reviewed. Non-toxic appearing. +1 to trace pitting edema to the hips. Erythema improving in the pannus fold. Labs reviewed. 1. Acute on chronic HFpEF. Pulmonary edema/effusions + anasarca. Due to increased salt intake. Diurese with Lasix 80mmg IV daily and 40mg IV Lasix in the afternoon. Continue with daily weights, I/Os, fluid restriction. -3.6 L in the last 24 hours. Weight today 95.5kg. Dry weight is 188lbs. 2. Hyponatremia. Na 118 on admission, now 134. Improving. Suspect that this will continue to normalize with additional diuresis. 3. GABRIELA. Cr 2.2 on admission. 1.07. Baseline Cr is ~1.0. 4. Hyperkalemia. Normalized. Continue to hold potassium supplement. 5. pAF. Continue amiodarone 200mg, diltiazem 360mg, metoprolol 50mg BID. AC with Eliquis 5mg BID. 6. Hypoxia. 3L O2. Continue wean down to home O2 levels. 7. Chronic draining sinus from right knee arthroplasty. Restarted suppressive Bactrim. Wound care. 8. Diabetes. Holding home metformin. Basal-bolus insulin--decreased lantus to 12u BID. 9. Intertrigo. Nystatin powder. Keep area dry. Appreciate wound care recommendations for this area. 10. Bacteriuria. with urinary retention prior to admission x weeks so unclear if this is related to cystitis vs other issue like POP. +nitrites on urine dip but abx deferred for now. Urine culture growing out E. Coli that is resistant to Bactrim. Will treat with cipro x 3 days. Dispo: pending continued diuresis. Will need rehab at discharge--PT/OT evals done here. Subjective No acute events overnight. Feeling better - willing to go to rehab at discharge Review of Systems Review of Systems: All systems reviewed & are unremarkable except as noted in HPI & below Physical Exam Constitutional: WD/WN, vitals as above + obese and cooperative; no acute distress Eyes: + anicteric sclerae ENMT: external ear and nose normal, oropharynx normal + exopthalamos Neck: normal visual inspection and trachea midline Respiratory: no respiratory distress, no labored breathing and no cough Auscultation: + rales (still present at b/l lung bases) Cardiovascular: Rate/Rhythm: + irregularly irregular Heart Sounds: normal S1 and normal S2; no murmur Extremities: + pedal edema (improved from admission, now limited to below the knee) Gastrointestinal (Abdomen): Inspection/Auscultation: + significant pannus Musculoskeletal: Head/Neck/Chest: normocephalic and head atraumatic Skin: + erythema (in abdominal skin folds, seems to be more faint on exam today) Neurologic: moves all extremities Psychiatric: A+Ox3, euthymic affect Results & Data Results & Data ([facility]) Vital Signs (Past 12 Hours) Vital Signs Temp Pulse Pulse Resp BP Pulse Ox 08/25/21 07:31 77 08/25/21 03:10 36.6 C 71 18 128/84 95 08/24/21 23:33 74 08/24/21 23:25 37.2 C 74 18 126/81 91 08/24/21 20:50 36.7 C 8 L 19 129/85 94 Resident Activity Tracking Resident Involvement: Resident Care Provided Care Provided: Adult Hospital Medicine (1) Chronic infection of knee joint prosthesis Encounter type: initial encounter Qualified Code(s): T84.59XA - Infection and inflammatory reaction due to other internal joint prosthesis, initial encounter; Z96.659 - Presence of unspecified artificial knee joint
[2021-08-25] MEDS: INSULIN ASPART PER UNIT SC SCH ×4 (08:19→20:30)
[2021-08-25] MEDS: AMIODARONE 200 MG TAB PO SCH (08:22)
[2021-08-25] MEDS: THIAMINE HCL 100 MG TAB PO SCH (08:22)
[2021-08-25] MEDS: MAGNESIUM OXIDE 400 MG TAB PO SCH ×3 (08:22→17:55)
[2021-08-25] MEDS: dilTIAZem HCL 180 MG CAPCR PO SCH (08:22)
[2021-08-25] MEDS: APIXABAN 5 MG TABLET PO SCH ×2 (08:22→20:56)
[2021-08-25] MEDS: METOPROLOL TARTRATE 50 MG TAB PO SCH ×2 (08:22→20:56)
[2021-08-25] MEDS: CETIRIZINE HCL 10 MG TABLET PO SCH (08:22)
[2021-08-25] MEDS: SULFAMETHOXAZOLE/TRIMETHOPRIM DS 800/160MG TAB PO SCH ×2 (08:22→20:57)
[2021-08-25] MEDS: PANTOprazole 40 MG TAB PO SCH (08:22)
[2021-08-25] MEDS: POTASSIUM CHLORIDE CRTAB 20 MEQ TABCR PO SCH (08:22)
[2021-08-25] MEDS: busPIRone 5 MG TAB PO SCH ×2 (08:22→20:57)
[2021-08-25] MEDS: VENLAFAXINE HCL XR 150 MG CAPXR PO SCH (08:22)
[2021-08-25] MEDS: FUROSEMIDE 40 MG/4 ML VIAL IV SCH ×2 (08:23→15:30)
[2021-08-25] MEDS: INSULIN GLARGINE SOLOSTAR 100 UNITS/ML 3 ML PEN SC SCH ×2 (08:23→20:57)
[2021-08-25] MEDS: AMMONIUM LACTATE 12% LOTION 225 GM BTL EXT SCH (08:23)
[2021-08-25] MEDS: NYSTATIN POWDER 15GM BTL EXT SCH ×2 (08:23→20:56)
[2021-08-25] MEDS: traMADol HCL 50 MG TABLET PO SCH ×2 (08:27→20:55)
[2021-08-25] MEDS: ACETAMINOPHEN 325 MG TAB PO PRN (12:16)
[2021-08-25] MEDS: DICLOFENAC SOD 1% GEL 100 GM TUBE EXT PRN (12:19)
[2021-08-25] MEDS: CHOLECALCIFEROL 1,000 UNITS 25 MCG TAB PO SCH (12:20)
[2021-08-25] MEDS: CIPROFLOXACIN 250 MG TAB PO SCH ×2 (12:20→23:26)
[2021-08-25] MEDS: CYANOCOBALAMIN (B-12) 500 MCG TABLET PO SCH (12:21)
[2021-08-25] MEDS: LORazepam 0.5 MG TAB PO PRN ×2 (13:42→21:02)
[2021-08-25] MEDS: MONTELUKAST SODIUM 10 MG TABLET PO SCH (20:56)
[2021-08-25] MEDS: ATORVASTATIN 40 MG TAB PO SCH (20:57)
[2021-08-26] MEDS: LEVOTHYROXINE SODIUM 137 MCG TABLET PO SCH (05:43)
[2021-08-26 06:57] LABS: BUN Creatinine Ratio 22.4 (10-20); Calcium 8.5 mg/dl (8.5-10.1); Creatinine Clr Calc Pharmacy 66.6 ml/min; Est GFR (African American) 73.2 ml/min; Est GFR (Non-African American) 63.1 ml/min; Potassium 4.2 mmol/L (3.5-5.1)
--- NOTE | 2021-08-26 07:11 | Hospitalist Progress Note ---
Date of Service August 26, 2021 Assessment & Plan (1) Acute on chronic diastolic (congestive) heart failure: Plan: 61 yo F with PMH HFpEF (EF 60-65% in 11/2020) who was admitted for acute on [id number] shortness of breath secondary to symptomatic CHF from dietary i ndiscretion. Acute on chronic HFpEF exacerbation -Echo 11/2020- EF 60-65%, severe biatrial dilation -Home diuresis regimen consists of Lasix 80 mg PO daily + 20 mg PRN -CXR on admission- cardiomegaly, airspace opacities suggestive of pulmonary edema, pulmonary vascular congestion -Suspect this current exacerbation is likely due to increased salt intake (dietary indiscretion) over past few weeks -Increase Lasix to 80mg IV b.i.d. given stability of BPs, kidney function, and Na -Dry weight is 85kg --> patient was 110kg on admission, downtrended to ~95kg -Net negative >10L since admission; pedal edema was thigh high on arrival, now below the knee and 1+ -Daily standing weights, strict I's and O's -Remove Medel in AM (scheduled) PTD -Daily BMP AHRF -- resolved -Current oxygen requirement suspect likely due to CHF exacerbation; uses 3L via NC at home, nighttime only -Placed on 3L NC in ER, 85 on admission, now back on RA during the day -Likely also component of VALERIE/OHS (never used CPAP at home) consider sleep study on discharge -Pt does have 15 pack year smoking history, quit 7 years prior- never formally diagnosed with COPD, can consider PFTs as outpatient -Albuterol PRN Hyponatremia -- near resolved -118 on admission, severe range, received 100ml hypertonic saline in ER. -Continue hyponatremia correction with fluid restriction and diuresis -Suspect dilutional/hypervolemic hyponatremia due to CHF exacerbation -Daily BMP GABRIELA -- resolved, baseline 1.0 - Cr 2.2 on admission, no known history of CKD; Cr now < 1 - Suspect pre-renal etiology due to acute CHF exacerbation - On admission, concerns for urinary retention. Unsure if this is due to UTI. Medel was placed and is draining appropriately, consider further work-up once Medel is out. - Trend BMP Intertrigo -08/23: new candidal dermatitis rash seen on the lower abdomen and inguinal folds. erythematous, pruritic, non-vesicular. clear line of demarcation. Clinically with some improvement. -Wound consult ordered -Nystatin powder ordered with dry cloths Paroxysmal atrial fibrillation -Known history of PAF s/p failed cardioversions 2x and difficult rate control -On admission, EKG showed Afib with slow ventricular response -Continue amiodarone 200 mg daily, diltiazem 360 mg daily, metoprolol 50 mg BID -Continue anticoagulation with Eliquis 5 mg BID Hypomagnesemia, Hypokalemia -Resolved Urinary Tract Infection - urine culture from 08/21/21 growing ecoli resistant to Bactrim, Macrobid and cephalosporins - patient did report a sensation of urinary retention (ie feeling urge to urinate without getting much volume out) - will presume the above is patient care representative of symptomatic UTI and treat with Cipro 250gm BID for 3 days 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 If elevated, consider initiation of Flomax. Diabetes -Holding home metformin 1000 mg BID -Lantus 16u BID, ISS --> dose reduced to 12u BID on 08/25/21 due to several hypoglycemic readings -Last known A1C of 5.0% in 11/2020 Anxiety -Continue buspirone 10 mg daily, Effexor 150 mg daily -Ativan 0.5 Hs PRN (this is a home medication) Chronic pain -Continue tramadol 50 mg PO BID HLD -Continue atorvastatin 40 mg daily HTN -Continue metoprolol 50 mg BID, diltiazem 360 mg daily Hypothyroid -Continue synthroid 137 mcg daily GERD -Continue pantoprazole 40 mg daily FENGI: Carb consistent, heart healthy, low salt, 2000 cc fluids Code status: Full DVT ppx: Eliquis Isolation: None Dispo: Med/Surg. PT/OT ordered as pt's functional status declining- anticipate d/c to SNF vs rehab (2) Type 2 diabetes mellitus: (3) Hypothyroidism: (4) Anemia: (5) Hyperkalemia: (6) VALERIE (obstructive sleep apnea): (7) Chronic infection of knee joint prosthesis: (8) Hypomagnesemia: (9) Anxiety: (10) Paroxysmal a-fib: Admission and Anticipated Discharge Date Admission Date: August 21, 2021 Supervising Physician Co-Signing Physician Notes I personally examined the patient and verified all vega points of history and exam, discussed case, and agree with decision making with Dr Chen breathing better than when she came in. feels like she still has some fluid extra though. vitals noted nad heent nc at mmm breathing unlabored no accessory muscles good effort skin no rashes no pallor or icterus neuro no focal deficits 1. Acute on chronic HFpEF. Pulmonary edema/effusions + anasarca. Due to increased salt intake (ham). continue diuresis - if SNF available, can transition there for PT as well as ongoing aggressive (but PO) diuresis 2. Hyponatremia. - improving, was from volume overload 3. GABRIELA. Cr 2.2 on admission due to poor forward flow - now back around baseline. 4. Hyperkalemia. Normalized. follow 5. pAF. rate controlled. anticoagulated 6. Hypoxia. from CHF 7. Chronic draining sinus from right knee arthroplasty. Restarted suppressive Bactrim. Wound care. 8. Diabetes. continue insulin management. sugars on the tight side of reasoanble 9. Intertrigo. Nystatin powder. Keep area dry. Appreciate wound care recommendations for this area. 10. Bacteriuria. with urinary retention prior to admission x weeks so unclear if this is related to cystitis vs other issue like POP. +nitrites on urine dip but abx deferred for now. Urine culture growing out E. Coli that is resistant to Bactrim. treating w pollo Dispo: SNF/rehab emphasis once approved, bed available. otherwise as above Subjective Feeling well. Breathing improved. Energy good. Good appetite. No n/v/d/CP/palpitations. Review of Systems Review of Systems: as per HPI Physical Exam Physical Exam: General: 61-year old female who is alert, oriented, and appears in no acute distress. HEENT: NCAT. - Eyes - Sclera are white, anicteric, and without injection. - Mouth - MMM - Neck - supple, no appreciable JVD though difficult to assess with habitus Cardiac: Normal rate and irregular rhythm; S1 and S2 present with no murmurs, rubs, or gallops. Pulmonary: Good respiratory effort with symmetric expansion of the chest. No use of accessory muscles. Lungs were clear to auscultation bilaterally with no crackles or wheezes. Abdominal: Normoactive bowel sounds. Abdomen was soft, mildly distended, and non-tender to palpation. Extremities: Upper and lower extremities are warm and well perfused. 1+ peripheral edema in the lower extremities bilaterally Results & Data Results & Data ([facility]) Vital Signs (Past 12 Hours) Vital Signs Temp Pulse Resp BP Pulse Ox 08/25/21 22:04 36.8 C 74 18 123/80 92 08/25/21 20:53 85 129/78 95 Resident Activity Tracking Resident Involvement: Resident Care Provided Care Provided: Adult Hospital Medicine (1) Chronic infection of knee joint prosthesis Encounter type: initial encounter Qualified Code(s): T84.59XA - Infection and inflammatory reaction due to other internal joint prosthesis, initial encounter; Z96.659 - Presence of unspecified artificial knee joint
[2021-08-26] MEDS: MAGNESIUM OXIDE 400 MG TAB PO SCH ×3 (08:45→17:05)
[2021-08-26] MEDS: busPIRone 5 MG TAB PO SCH ×2 (08:46→20:03)
[2021-08-26] MEDS: METOPROLOL TARTRATE 50 MG TAB PO SCH ×2 (08:46→20:06)
[2021-08-26] MEDS: APIXABAN 5 MG TABLET PO SCH ×2 (08:46→20:03)
[2021-08-26] MEDS: POTASSIUM CHLORIDE CRTAB 20 MEQ TABCR PO SCH (08:46)
[2021-08-26] MEDS: CETIRIZINE HCL 10 MG TABLET PO SCH (08:47)
[2021-08-26] MEDS: traMADol HCL 50 MG TABLET PO SCH ×2 (08:47→20:02)
[2021-08-26] MEDS: THIAMINE HCL 100 MG TAB PO SCH (08:47)
[2021-08-26] MEDS: PANTOprazole 40 MG TAB PO SCH (08:47)
[2021-08-26] MEDS: AMIODARONE 200 MG TAB PO SCH (08:47)
[2021-08-26] MEDS: SULFAMETHOXAZOLE/TRIMETHOPRIM DS 800/160MG TAB PO SCH ×2 (08:48→20:03)
[2021-08-26] MEDS: AMMONIUM LACTATE 12% LOTION 225 GM BTL EXT SCH (08:49)
[2021-08-26] MEDS: VENLAFAXINE HCL XR 150 MG CAPXR PO SCH (08:49)
[2021-08-26] MEDS: dilTIAZem HCL 180 MG CAPCR PO SCH (08:49)
[2021-08-26] MEDS: FUROSEMIDE 40 MG/4 ML VIAL IV SCH ×2 (08:49→17:04)
[2021-08-26] MEDS: NYSTATIN POWDER 15GM BTL EXT SCH ×2 (08:50→20:04)
[2021-08-26] MEDS: INSULIN ASPART PER UNIT SC SCH ×4 (08:52→20:34)
[2021-08-26] MEDS: INSULIN GLARGINE SOLOSTAR 100 UNITS/ML 3 ML PEN SC SCH ×2 (08:53→20:34)
[2021-08-26] MEDS: CHOLECALCIFEROL 1,000 UNITS 25 MCG TAB PO SCH (13:01)
[2021-08-26] MEDS: CIPROFLOXACIN 250 MG TAB PO SCH (13:02)
[2021-08-26] MEDS: CYANOCOBALAMIN (B-12) 500 MCG TABLET PO SCH (13:02)
[2021-08-26] MEDS: DICLOFENAC SOD 1% GEL 100 GM TUBE EXT PRN (13:03)
[2021-08-26] MEDS: LORazepam 0.5 MG TAB PO PRN ×2 (14:59→20:02)
[2021-08-26] MEDS: ACETAMINOPHEN 325 MG TAB PO PRN (16:42)
--- NOTE | 2021-08-26 17:13 | Billing Data ---
Date of Service August 26, 2021 Coding Level of Care Code 27159 Subseq Hosp Care Lvl 2
[2021-08-26] MEDS: MONTELUKAST SODIUM 10 MG TABLET PO SCH (20:04)
[2021-08-26] MEDS: ATORVASTATIN 40 MG TAB PO SCH (20:04)
[2021-08-27] MEDS: CIPROFLOXACIN 250 MG TAB PO SCH (01:12)
[2021-08-27] MEDS: LEVOTHYROXINE SODIUM 137 MCG TABLET PO SCH (06:12)
--- NOTE | 2021-08-27 06:44 | Discharge Summary ---
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 Pt states she first began to experience throat and chest congestion on 08/19 accompanied by worsening dyspnea. Has attempted to cough to get the phlegm out but notes she has difficulty doing so. Notes increasing abdominal distension and firmness during this time as well. Denies any fevers, chills, chest pain, increased leg swelling. She does note that her diet has been different than usual lately- her sister brought her much food for [employer] including salted/cured meat including a large ham. Pt states she has been eating plenty of Easter leftovers lately and also about 1 cup of cottage cheese daily for the past 4-5 days. She has not drank any increased fluid. During the past few weeks, pt also reports retaining urine- she has attempted to void several times but rarely succeeds. Last BM today. Weight change of 91 kg to 110 kg from 03/2021 to today. Of note, pt does have home O2, 2L at night only, but has been unable to use her O2 for a few weeks now due to difficulty physically accessing her machinery at home. Admission Exam Per Admitting Provider eneral: Morbidly obese female laying in bed, nasal cannula in place, no acute distress HEENT: moist mucous membranes, EOMI, PERRLA, anicteric sclerae Neck: supple, no overt JVD b/l though assessment limited by body habitus CV: irregular rate and rhythm, in atrial fibrillation on monitor, normal S1, S2, no murmurs noted Resp: reduced inspiratory effort, diminished breath sounds diffusely with bibasilar and middle lobe crackles b/l, no increased work of breathing Abd: slightly firm, distended, no fluid wave, nontender to palpation, normal bowel sounds Extremities: 1+ pitting edema of b/l LE, multiple toe amputations b/l, chronic draining sinus with ulceration of RLE, multiple yellow plaques and chronic venous stasis changes of b/l LE, distal LE pulses intact b/l, lesions are nontender and lack warmth Neuro: grossly alert and oriented, no gross focal motor or sensory deficits, DTRs 1+ Principal Diagnosis acute HFpEF acute hypoxic respiratory failure Discharge Exam General: 61-year old female who is alert, oriented, and appears in no acute distress. HEENT: NCAT. - Eyes - Sclera are white, anicteric, and without injection. - Mouth - MMM - Neck - supple, no appreciable JVD though difficult to assess with habitus Cardiac: Normal rate and irregular rhythm; S1 and S2 present with no murmurs, rubs, or gallops. Pulmonary: Good respiratory effort with symmetric expansion of the chest. No use of accessory muscles. Lungs were clear to auscultation bilaterally with no crackles or wheezes. Abdominal: Normoactive bowel sounds. Abdomen was soft, mildly distended, and non-tender to palpation. Extremities: Upper and lower extremities are warm and well perfused. 1+ peripheral edema in the lower extremities bilaterally Discharge Data Allergies Allergy/AdvReac Type Severity Reaction Status Date / Time Penicillins Allergy Unknown UNKNOWN Verified 08/21/21 16:32 bacitracin Allergy Unknown Verified 08/21/21 16:32 [From Neosporin ([id number])] neomycin Allergy Unknown Verified 08/21/21 16:32 [From Neosporin ([id number])] polymyxin B Allergy Unknown Verified 08/21/21 16:32 [From Neosporin ([id number])] Consultations 08/21/21 18:35 ED Decision to Admit Stat Hospital Course (1) Acute on chronic diastolic (congestive) heart failure: 61 yo F with PMH HFpEF (EF 60-65% in 11/2020) who was admitted for acute on [id number] shortness of breath secondary to symptomatic CHF from dietary indiscretion. Acute on chronic HFpEF exacerbation -Echo 11/2020- EF 60-65%, severe biatrial dilation -Home diuresis regimen consists of Lasix 80 mg PO daily + 20 mg PRN -CXR on admission- cardiomegaly, airspace opacities suggestive of pulmonary edema, pulmonary vascular congestion -Net negative >10L since admission; pedal edema was thigh high on arrival, now below the knee and greatly reduced -Suspect this current exacerbation is likely due to increased salt intake (dietary indiscretion) over past few weeks -- extensive counselling given while here -Given aggressive IV diuresis while here -- tolerated well -Dry weight is 85kg --> patient was 110kg on admission, discharge weight = 94.3 kg -O2 requirement at discharge: 1-2L during day, 2-3L qHS (normal for patient during night) -Continue Lasix 80mg b.i.d. x 5 days (possibly longer), check BMP in 3-5 days, thereafter consider resuming home dose (80mg + 20mg PRN) vs. starting increased maintenance dose AHRF -- resolved -Current oxygen requirement suspect likely due to CHF exacerbation; uses 3L via NC at home, nighttime only -Placed on 3L NC in ER, 85 on admission, now back on RA by time of discharge -Likely also component of VALERIE/OHS (never used CPAP at home) consider sleep study on discharge -Pt does have 15 pack year smoking history, quit 7 years prior- never formally diagnosed with COPD, can consider PFTs as outpatient -O2 requirement as above Hyponatremia -- resolved -118 on admission, severe range, secondary to hypervolemia and acute HFpEF -Carefully corrected with diuresis -Check BMP within 1 week of discharge GABRIELA -- resolved, baseline 1.0 - Cr 2.2 on admission, no known history of CKD; Cr now < 1 - Suspect pre-renal etiology due to acute CHF exacerbation. Voiding appropriately prior to discharge. Intertrigo -08/23: new candidal dermatitis rash seen on the lower abdomen and inguinal folds. erythematous, pruritic, non-vesicular. clear line of demarcation. Clinically with some improvement. -Wound care nurse followed while here -Nystatin powder ordered with dry cloths Paroxysmal atrial fibrillation -Known history of PAF s/p failed cardioversions 2x and difficult rate control -On admission, EKG showed Afib with slow ventricular response -Continue amiodarone 200 mg daily, diltiazem 360 mg daily, metoprolol 50 mg BID -Continue anticoagulation with Eliquis 5 mg BID Hypomagnesemia, Hypokalemia -Resolved Urinary Tract Infection - urine culture from 08/21/21 growing ecoli resistant to Bactrim, Macrobid and cephalosporins - patient did report a sensation of urinary retention (ie feeling urge to urinate without getting much volume out) - will presume the above is in store representative of symptomatic UTI and treat with Cipro 250gm BID for 3 days (ended 08/27) 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 -On daily suppressive Bactrim, held for first 2 days of hospital admission due to GABRIELA -08/23: suppressive Bactrim resumed (800 mg/160mg BID) -Wound care consult ordered -- continue LacHydrin for chronic venous stasis dermatitis, consider following with wound care center after d/c -Pt regularly uses Aquacel foam at home -Currently no concern for acute infection Urinary Retention - reported by patient on admission - suspect was more urgency related to UTI, as above - voiding without difficulty prior to discharge s/p medel removal Diabetes -Holding home metformin 1000 mg BID -Lantus 16u BID, ISS --> dose reduced to 12u BID on 08/25/21 due to several hypoglycemic readings -Last known A1C of 5.0% in 11/2020 Anxiety -Continue buspirone 10 mg daily, Effexor 150 mg daily -Ativan 0.5 Hs PRN (this is a home medication) Chronic pain -Continue tramadol 50 mg PO BID HLD -Continue atorvastatin 40 mg daily HTN -Continue metoprolol 50 mg BID, diltiazem 360 mg daily Hypothyroid -Continue synthroid 137 mcg daily GERD -Continue pantoprazole 40 mg daily Code status: Identifies as FULL CODE (2) Type 2 diabetes mellitus: (3) Hypothyroidism: (4) Anemia: (5) Hyperkalemia: (6) VALERIE (obstructive sleep apnea): (7) Chronic infection of knee joint prosthesis: (8) Hypomagnesemia: (9) Anxiety: (10) Paroxysmal a-fib: Total Time Total Time Spent Total Time Spent (In Minutes): <30 Discharge Plan Discharge Items Patient Disposition: Transfer [facility] Reason For Visit: HEART FAILURE EXACERBATION Discharge Diagnosis: acute HFpEF acute hypoxic respiratory failure Activity: Per Instructions section Non-emergency contact: Primary Care Provider Call non-emergency contact if: you have any medication questions, your symptoms worsen and your temperature is above 101 Follow-up/Referrals: ProParveen MD [Primary Care Provider] - Promise Joaquin PA-C [Physician Print Shop Helper] - 09/04/21 2:00 pm Diet: Heart Healthy and Low Sodium (2gm) Addtl Attending Provider Instructions: Call 911 and go to the Emergency Room if: * You have tightness or pain in your chest that does not go away with rest or Nitroglycerin * You are very short of breath even with rest Call your doctor if any of the following symptoms or problems start or get worse: * Shortness of breath or difficulty breathing * Wake up at night short of breath * Chest pain * Cough * Swelling of your hands, fee, or legs * More fatigued or tired with your normal activity * Palpitations - sudden fast heart beats WEIGHT * Weigh yourself every morning after using the bathroom. * Use the same scale. * Wear the same amount of clothing. * Write your weight down on your chart. * Call your doctor if you gain more than 2-3 pounds in 1-2 days. MEDICATIONS * Use this discharge instruction sheet for instructions. * Take your medications at the time your doctor ordered. * Do not skip a dose of your medicines. * If you miss a dose of medicine, take as soon as possible, but DO NOT DOUBLE A DOSE. * Read your medicine information when you get home. * Know all of the side effects of your medicine. * Call your doctor's office if you have any side effects. * Be sure all of your doctors know what medicine and herbs you take (including cold, flu, and herbal medicine). * Pain Medicine: If you do not get relief from your pain, please call your doctor for help. Take the following with you to your follow-up doctor appointments: * Weight Chart * Medication List * List of questions Do not drink excessive alcohol, beer or wine. FOR FACILITY: 61 yo F with PMH HFpEF (EF 60-65% in 11/2020) who was admitted for acute on [id number] shortness of breath secondary to symptomatic CHF from dietary indiscretion. Acute on chronic HFpEF exacerbation -Echo 11/2020- EF 60-65%, severe biatrial dilation -Home diuresis regimen consists of Lasix 80 mg PO daily + 20 mg PRN -CXR on admission- cardiomegaly, airspace opacities suggestive of pulmonary edema, pulmonary vascular congestion -Net negative >10L since admission; pedal edema was thigh high on arrival, now below the knee and greatly reduced -Suspect this current exacerbation is likely due to increased salt intake (dietary indiscretion) over past few weeks -- extensive counselling given while here -Given aggressive IV diuresis while here -- tolerated well -Dry weight is 85kg --> patient was 110kg on admission, discharge weight = 94.3 kg -O2 requirement at discharge: 1-2L during day, 2-3L qHS (normal for patient during night) -Continue Lasix 80mg b.i.d. x 5 days (possibly longer), check BMP in 3-5 days, thereafter consider resuming home dose (80mg + 20mg PRN) vs. starting increased maintenance dose AHRF -- resolved -Current oxygen requirement suspect likely due to CHF exacerbation; uses 3L via NC at home, nighttime only -Placed on 3L NC in ER, 85 on admission, now back on RA by time of discharge -Likely also component of VALERIE/OHS (never used CPAP at home) consider sleep study on discharge -Pt does have 15 pack year smoking history, quit 7 years prior- never formally diagnosed with COPD, can consider PFTs as outpatient -O2 requirement as above Hyponatremia -- resolved -118 on admission, severe range, secondary to hypervolemia and acute HFpEF -Carefully corrected with diuresis -Check BMP within 1 week of discharge GABRIELA -- resolved, baseline 1.0 - Cr 2.2 on admission, no known history of CKD; Cr now < 1 - Suspect pre-renal etiology due to acute CHF exacerbation. Voiding appropriately prior to discharge. - Check BMP in 3-5 days, as above Intertrigo -08/23: new candidal dermatitis rash seen on the lower abdomen and inguinal folds. erythematous, pruritic, non-vesicular. clear line of demarcation. Clinically with some improvement. -Wound care nurse followed while here -Nystatin powder ordered with dry cloths Paroxysmal atrial fibrillation -Known history of PAF s/p failed cardioversions 2x and difficult rate control -On admission, EKG showed Afib with slow ventricular response -Continue amiodarone 200 mg daily, diltiazem 360 mg daily, metoprolol 50 mg BID -Continue anticoagulation with Eliquis 5 mg BID Hypomagnesemia, Hypokalemia -Resolved Urinary Tract Infection - urine culture from 08/21/21 growing ecoli resistant to Bactrim, Macrobid and cephalosporins - patient did report a sensation of urinary retention (ie feeling urge to urinate without getting much volume out) - will presume the above is in store representative of symptomatic UTI and treat with Cipro 250gm BID for 3 days (ended 08/27) 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 -On daily suppressive Bactrim, held for first 2 days of hospital admission due to GABRIELA -08/23: suppressive Bactrim resumed (800 mg/160mg BID) -Wound care consult ordered -- continue LacHydrin for chronic venous stasis dermatitis, consider following with wound care center after d/c -Pt regularly uses Aquacel foam at home -Currently no concern for acute infection Urinary Retention - reported by patient on admission - suspect was more urgency related to UTI, as above - voiding without difficulty prior to discharge s/p medel removal Diabetes -Holding home metformin 1000 mg BID -Lantus 16u BID, ISS --> dose reduced to 12u BID on 08/25/21 due to several hypoglycemic readings -Last known A1C of 5.0% in 11/2020 Anxiety -Continue buspirone 10 mg daily, Effexor 150 mg daily -Ativan 0.5 Hs PRN (this is a home medication) Chronic pain -Continue tramadol 50 mg PO BID HLD -Continue atorvastatin 40 mg daily HTN -Continue metoprolol 50 mg BID, diltiazem 360 mg daily Hypothyroid -Continue synthroid 137 mcg daily GERD -Continue pantoprazole 40 mg daily Code status: Identifies as FULL CODE Pending Studies at Discharge: No Stand-Alone Forms: My [facility] Skilled Items Patient informed of condition?: Yes DNR: No Discharge Level of Care: Skilled Communicable Disease: No Discharge Prognosis: Stable Lines: None Urinary Catheter: No Medications and DC Order Prescriptions: New nystatin [Nystop] 100,000 unit/gram Powder 1 applic EXT BID Qty: 0 RF: 0 Lac-Hydrin Five 5 % Lotion 1 g EXT DAILY 30 Days Qty: 0 RF: 0 Continued cholecalciferol (vitamin D3) 1,000 unit capsule 1,000 units PO 1200 RF: 0 cyanocobalamin (vitamin B-12) 1,000 mcg capsule 1,000 mcg PO 1200 RF: 0 magnesium oxide 400 mg magnesium capsule 400 mg PO TIDM RF: 0 Hold Instructions: NOT ON [facility]ENTRE CARE DISCHARGE 12/2020 (DME) Aquacel Foam 8 X 7 " bandage See Rx Instructions .ROUTE .MEDSUPPLY Qty: 5 RF: 5 (DME) OneTouch Verio test strips Strip See Rx Instructions .ROUTE .MEDSUPPLY Qty: 100 RF: 3 (DME) blood-glucose meter [OneTouch Verio Meter] Misc See Rx Instructions .ROUTE .MEDSUPPLY Qty: 1 RF: 0 (DME) lancets [OneTouch UltraSoft Lancets] [facility] See Rx Instructions .ROUTE .MEDSUPPLY Qty: 200 RF: 2 acetaminophen 325 mg tablet 650 mg PO Q6H PRN (Reason: pain) Qty: 60 RF: 0 albuterol sulfate 90 mcg/actuation HFA aerosol inhaler 2 puff inhalation Q4H PRN (Reason: Shortness Of Breath Or Wheezing) Qty: 8.5 RF: 5 cetirizine 10 mg tablet 10 mg PO DAILY Qty: 30 RF: 5 furosemide 20 mg tablet 20 mg PO DAILY PRN (Reason: weight gain) Qty: 30 RF: 5 metformin 1,000 mg tablet 1,000 mg PO BIDM Qty: 60 RF: 5 pantoprazole 40 mg tablet,delayed release (DR/EC) 40 mg PO QAM Qty: 30 RF: 5 potassium chloride [Klor-Con M20] 20 mEq tablet,ER particles/crystals 20 meq PO QAM Qty: 30 RF: 5 sulfamethoxazole-trimethoprim [Bactrim DS] 800-160 mg tablet 1 tab PO BID Qty: 60 RF: 5 thiamine HCl (vitamin B1) [Vitamin B-1] 100 mg tablet 100 mg PO QAM Qty: 30 RF: 0 atorvastatin 40 mg tablet 40 mg PO QPM Qty: 90 RF: 3 Eliquis 5 mg tablet 5 mg PO BID Qty: 180 RF: 3 amiodarone 200 mg tablet 200 mg PO QAM Qty: 30 RF: 5 metoprolol tartrate 50 mg tablet 50 mg PO BID Qty: 60 RF: 2 levothyroxine 137 mcg tablet 137 mcg PO DAILY Qty: 30 RF: 5 venlafaxine 150 mg capsule,extended release 24hr 150 mg PO QAM Qty: 30 RF: 5 lorazepam 0.5 mg tablet 0.5 mg PO DAILY PRN (Reason: anxiety) Qty: 30 RF: 0 montelukast 10 mg tablet 10 mg PO HS Qty: 30 RF: 5 diltiazem HCl 360 mg capsule,extended release 24hr 360 mg PO DAILY Qty: 30 RF: 1 buspirone 10 mg tablet 10 mg PO BID Qty: 60 RF: 5 ondansetron HCl 4 mg tablet 4 mg PO Q8H PRN (Reason: nausea and vomiting) Qty: 20 RF: 0 tramadol 50 mg tablet 50 mg PO BID Qty: 60 RF: 0 furosemide 40 mg tablet 80 mg PO DAILY RF: 0 Discharge Orders: Discharge Order (Routine); Ordered 08/28/21 Ordered By: Orestes Rivas/Other Patient Handouts: Heart Failure Meds, What Is Heart Failure, Heart Failure Flare Up Signs, Heart Failure: Tracking Your Weight, Heart Failure Make Changes Diet Admission Data Admit Date/Time: 08/21/21 20:03 Attending Provider: Orestes Olsen Admit Provider: Mukund Burton Primary Care Provider: Parveen Fishman Other Providers: [place] ; Halina Guzman ; Carlos Escudero Other Interventions: Discharge Summary Assessment (RN) Last Done: 08/28/21 09:03 Supervising Physician Co-Signing Physician Notes I personally examined the patient and verified all vega points of history and exam, discussed case, and agree with decision making with Dr Chen feeling OK for SNF. vitals noted nad heent nc at mmm breathing unlabored no accessory muscles good effort skin no rashes no pallor or icterus neuro no focal deficits 08/26 charts reviewed going back ~4yrs no evidence of COPD - but some signs of pulm HTN and possible OHS, (+) VALERIE 1. Acute on chronic HFpEF. Pulmonary edema/effusions + anasarca. Due to increased salt intake (ham). continue diuresis PO. follow BMP Q2-3 days and then reduce to baseline diuresis once dry. stable for SNF today 2. Hyponatremia. - improved, was from volume overload 3. GABRIELA. Cr 2.2 on admission due to poor forward flow - now back around baseline. 4. Hyperkalemia. Normalized. follow 5. pAF. rate controlled. anticoagulated 6. Hypoxia. from CHF 7. Chronic draining sinus from right knee arthroplasty. continue suppressive Bactrim. Wound care. 8. Diabetes. continue insulin management. sugars overall reasonable 9. Intertrigo. Nystatin powder. Keep area dry. Appreciate wound care recommendations for this area. 10. Bacteriuria. with urinary retention prior to admission x weeks so unclear if this is related to cystitis vs other issue like POP. +nitrites on urine dip but abx deferred for now. Urine culture growing out E. Coli that is resistant to Bactrim. treated w cipro Dispo: SNF/rehab emphasis, ongoing PO diuresis there otherwise as above Resident Activity Tracking Resident Involvement: Resident Care Provided Care Provided: Adult Hospital Medicine
[2021-08-27 07:57] LABS: BUN Creatinine Ratio 24.4 (10-20); Calcium 8.8 mg/dl (8.5-10.1); Creatinine Clr Calc Pharmacy 75.5 ml/min; Est GFR (African American) 85.7 ml/min; Est GFR (Non-African American) 73.9 ml/min; Magnesium 1.3 mg/dl (1.7-2.4); Potassium 4.1 mmol/L (3.5-5.1)
[2021-08-27] MEDS: METOPROLOL TARTRATE 50 MG TAB PO SCH ×2 (08:05→22:27)
[2021-08-27] MEDS: SULFAMETHOXAZOLE/TRIMETHOPRIM DS 800/160MG TAB PO SCH ×2 (08:05→22:27)
[2021-08-27] MEDS: busPIRone 5 MG TAB PO SCH ×2 (08:06→22:28)
[2021-08-27] MEDS: VENLAFAXINE HCL XR 150 MG CAPXR PO SCH (08:06)
[2021-08-27] MEDS: APIXABAN 5 MG TABLET PO SCH ×2 (08:06→22:28)
[2021-08-27] MEDS: dilTIAZem HCL 180 MG CAPCR PO SCH (08:06)
[2021-08-27] MEDS: THIAMINE HCL 100 MG TAB PO SCH (08:07)
[2021-08-27] MEDS: CETIRIZINE HCL 10 MG TABLET PO SCH ×2 (08:07→15:47)
[2021-08-27] MEDS: PANTOprazole 40 MG TAB PO SCH (08:07)
[2021-08-27] MEDS: MAGNESIUM OXIDE 400 MG TAB PO SCH ×3 (08:07→17:21)
[2021-08-27] MEDS: AMIODARONE 200 MG TAB PO SCH (08:08)
[2021-08-27] MEDS: FUROSEMIDE 40 MG/4 ML VIAL IV SCH ×2 (08:09→17:21)
[2021-08-27] MEDS: AMMONIUM LACTATE 12% LOTION 225 GM BTL EXT SCH (08:11)
[2021-08-27] MEDS: NYSTATIN POWDER 15GM BTL EXT SCH (08:12)
[2021-08-27] MEDS: traMADol HCL 50 MG TABLET PO SCH ×2 (08:14→22:26)
[2021-08-27] MEDS: POTASSIUM CHLORIDE CRTAB 20 MEQ TABCR PO SCH (08:14)
[2021-08-27] MEDS: INSULIN GLARGINE SOLOSTAR 100 UNITS/ML 3 ML PEN SC SCH ×2 (09:17→22:29)
[2021-08-27] MEDS: INSULIN ASPART PER UNIT SC SCH ×4 (09:17→22:22)
--- NOTE | 2021-08-27 09:37 | Hospitalist Progress Note ---
Date of Service August 27, 2021 Assessment & Plan (1) Acute on chronic diastolic (congestive) heart failure: Plan: 61 yo F with PMH HFpEF (EF 60-65% in 11/2020) who was admitted for acute on [id number] shortness of breath secondary to symptomatic CHF from dietary i ndiscretion. Acute on chronic HFpEF exacerbation -Echo 11/2020- EF 60-65%, severe biatrial dilation -Home diuresis regimen consists of Lasix 80 mg PO daily + 20 mg PRN -CXR on admission- cardiomegaly, airspace opacities suggestive of pulmonary edema, pulmonary vascular congestion -Net negative >10L since admission; pedal edema was thigh high on arrival, now below the knee and greatly reduced -Suspect this current exacerbation is likely due to increased salt intake (dietary indiscretion) over past few weeks -- extensive counselling given while here -Given aggressive IV diuresis while here -- continue Lasix 80mg IV b.i.d. until discharge -Dry weight is 85kg --> patient was 110kg on admission, now trending towards low 90s range -Continue Lasix 80mg daily on discharge Acute (Possibly on Chronic) Hypoxic Respiratory Failure -- improving -Current oxygen requirement suspect likely due to CHF exacerbation; uses 2L via NC at home, nighttime only -Placed on 3L NC in ER, 85 on admission, still requiring 1-2L at baseline to maintain SpO2 > 90% -- will likely have small O2 requirement around time of discharge; this may be more of a chronic issue that was caught for the first time on admission. -Likely also component of VALERIE/OHS (never used CPAP at home) consider sleep study on discharge -Pt does have 15 pack year smoking history, quit 7 years prior- never formally diagnosed with COPD, consider PFTs as outpatient Hyponatremia -- resolved -118 on admission, severe range, secondary to hypervolemia and acute HFpEF -Carefully corrected with diuresis -Check BMP within 1 week of discharge GABRIELA -- resolved, baseline 1.0 - Cr 2.2 on admission, no known history of CKD; Cr now < 1 - Suspect pre-renal etiology due to acute CHF exacerbation - On admission, concerns for urinary retention. Unsure if this is due to UTI or not. Remove Medel and trial voiding. Intertrigo -08/23: new candidal dermatitis rash seen on the lower abdomen and inguinal folds. erythematous, pruritic, non-vesicular. clear line of demarcation. Clinically with some improvement. -Wound care nurse followed while here -Nystatin powder ordered with dry cloths Paroxysmal atrial fibrillation -Known history of PAF s/p failed cardioversions 2x and difficult rate control -On admission, EKG showed Afib with slow ventricular response -Continue amiodarone 200 mg daily, diltiazem 360 mg daily, metoprolol 50 mg BID -Continue anticoagulation with Eliquis 5 mg BID Hypomagnesemia, Hypokalemia -Resolved Urinary Tract Infection - urine culture from 08/21/21 growing ecoli resistant to Bactrim, Macrobid and cephalosporins - patient did report a sensation of urinary retention (ie feeling urge to urinate without getting much volume out) - 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 symptomatic UTI and treat with Cipro 250gm BID for 3 days (end 08/27) 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 -On daily suppressive Bactrim, held for first 2 days of hospital admission due to GABRIELA -08/23: suppressive Bactrim resumed (800 mg/160mg BID) -Wound care consult ordered -- continue LacHydrin for chronic venous stasis dermatitis, consider following with wound care center after d/c -Pt regularly uses Aquacel foam at home -Currently no concern for acute infection Urinary Retention - reported by patient - medel cath in due to aggressive dieresis and wheelchair bound patient - urine culture growing ecoli resistant to Bactrim, started on cipro course as above - spontaneous void trial now -- Medel removed. Consider initiation of Flomax if this is a persistent problem. Diabetes -Holding home metformin 1000 mg BID -Lantus 16u BID, ISS --> dose reduced to 12u BID on 08/25/21 due to several hypoglycemic readings -Last known A1C of 5.0% in 11/2020 Anxiety -Continue buspirone 10 mg daily, Effexor 150 mg daily -Ativan 0.5 Hs PRN (this is a home medication) Chronic pain -Continue tramadol 50 mg PO BID HLD -Continue atorvastatin 40 mg daily HTN -Continue metoprolol 50 mg BID, diltiazem 360 mg daily Hypothyroid -Continue synthroid 137 mcg daily GERD -Continue pantoprazole 40 mg daily Code status: Identifies as FULL CODE Dispo: [place] PPX: Eliquis Diet: HH/Low Na/FR < 2L/d (2) Type 2 diabetes mellitus: (3) Hypothyroidism: (4) Anemia: (5) Hyperkalemia: (6) VALERIE (obstructive sleep apnea): (7) Chronic infection of knee joint prosthesis: (8) Hypomagnesemia: (9) Anxiety: (10) Paroxysmal a-fib: Admission and Anticipated Discharge Date Admission Date: August 21, 2021 Supervising Physician Co-Signing Physician Notes I personally examined the patient and verified all vega points of history and exam, discussed case, and agree with decision making with Dr Chen breathing continues to feel better, notes that she takes zyrtec at home and eyes are burning some. also notes that she's been using aquacel on leg wound. wonders if she has COPD. vitals noted nad heent nc at mmm breathing unlabored no accessory muscles good effort skin no rashes no pallor or icterus neuro no focal deficits charts reviewed going back ~4yrs no evidence of COPD - but some signs of pulm HTN and possible OHS, (+) VALERIE 1. Acute on chronic HFpEF. Pulmonary edema/effusions + anasarca. Due to increased salt intake (ham). continue diuresis - if SNF available, can transition there for PT as well as ongoing aggressive (but PO) diuresis. continue to diurese for now. hypoxia predominantly from CHF - but pulm HTN/VALERIE possible OHS could also be chronic contributors as to why it's been a little difficult to totally wean off O2 at this time 2. Hyponatremia. - improving, was from volume overload 3. GABRIELA. Cr 2.2 on admission due to poor forward flow - now back around baseline. 4. Hyperkalemia. Normalized. follow 5. pAF. rate controlled. anticoagulated 6. Hypoxia. from CHF 7. Chronic draining sinus from right knee arthroplasty. Restarted suppressive Bactrim. Wound care. 8. Diabetes. continue insulin management. sugars on the tight side of reasoanble 9. Intertrigo. Nystatin powder. Keep area dry. Appreciate wound care recommendations for this area. 10. Bacteriuria. with urinary retention prior to admission x weeks so unclear if this is related to cystitis vs other issue like POP. +nitrites on urine dip but abx deferred for now. Urine culture growing out E. Coli that is resistant to Bactrim. treating w cipro Dispo: SNF/rehab emphasis once approved, bed available. otherwise as above Subjective NAEO. Feeling better day by day. Still getting winded easily with movements. O2 requirement has slowly decreased to 1-2L this morning. Eager to go to rehab -- thinking one more day here in the hospital would help, which we agreed together on. Review of Systems Review of Systems: as per HPI Physical Exam Physical Exam: General: 61-year old female who is alert, oriented, and appears in no acute distress. HEENT: NCAT. - Eyes - Sclera are white, anicteric, and without injection. - Mouth - MMM - Neck - supple, no appreciable JVD though difficult to assess with habitus Cardiac: Normal rate and irregular rhythm; S1 and S2 present with no murmurs, rubs, or gallops. Pulmonary: Good respiratory effort with symmetric expansion of the chest. No use of accessory muscles. Lungs were clear to auscultation bilaterally with no crackles or wheezes. Abdominal: Normoactive bowel sounds. Abdomen was soft, mildly distended, and non-tender to palpation. Extremities: Upper and lower extremities are warm and well perfused. 1+ peripheral edema in the lower extremities bilaterally Results & Data Results & Data ([facility]) Vital Signs (Past 12 Hours) Vital Signs Temp Pulse Resp BP Pulse Ox 08/27/21 07:21 36.7 C 95 H 20 137/92 97 Resident Activity Tracking Resident Involvement: Resident Care Provided Care Provided: Adult Hospital Medicine (1) Chronic infection of knee joint prosthesis Encounter type: initial encounter Qualified Code(s): T84.59XA - Infection and inflammatory reaction due to other internal joint prosthesis, initial encounter; Z96.659 - Presence of unspecified artificial knee joint
[2021-08-27] MEDS: MAGNESIUM SULFATE / D5W 1 GM/100 ML BAG IV SCH ×3 (09:40→13:13)
[2021-08-27] MEDS: CYANOCOBALAMIN (B-12) 500 MCG TABLET PO SCH (11:12)
[2021-08-27] MEDS: CHOLECALCIFEROL 1,000 UNITS 25 MCG TAB PO SCH (11:12)
[2021-08-27] MEDS ORDERED: COVID-19 VACC, TRIS(PFIZER)/PF 30 MCG/0.3 ML VIAL IM ONE (12:00)
[2021-08-27] MEDS: LORazepam 0.5 MG TAB PO PRN ×2 (14:39→22:26)
[2021-08-27] MEDS: ACETAMINOPHEN 325 MG TAB PO PRN (14:39)
--- NOTE | 2021-08-27 15:54 | Billing Data ---
Date of Service August 27, 2021 Coding Level of Care Code 12096 Subseq Hosp Care Lvl 2
[2021-08-27] MEDS: MONTELUKAST SODIUM 10 MG TABLET PO SCH (22:27)
[2021-08-27] MEDS: ATORVASTATIN 40 MG TAB PO SCH (22:28)
[2021-08-28] MEDS: NYSTATIN POWDER 15GM BTL EXT SCH ×2 (01:50→07:59)
[2021-08-28] MEDS: LEVOTHYROXINE SODIUM 137 MCG TABLET PO SCH (05:46)
[2021-08-28 06:33] LABS: BUN Creatinine Ratio 20.8 (10-20); Calcium 9.3 mg/dl (8.5-10.1); Creatinine Clr Calc Pharmacy 67.5 ml/min; Est GFR (Non-African American) 64.7 ml/min
[2021-08-28] MEDS: INSULIN ASPART PER UNIT SC SCH ×2 (07:50→08:29)
[2021-08-28] MEDS: AMIODARONE 200 MG TAB PO SCH (07:51)
[2021-08-28] MEDS: VENLAFAXINE HCL XR 150 MG CAPXR PO SCH (07:51)
[2021-08-28] MEDS: MAGNESIUM OXIDE 400 MG TAB PO SCH ×2 (07:51→11:48)
[2021-08-28] MEDS: SULFAMETHOXAZOLE/TRIMETHOPRIM DS 800/160MG TAB PO SCH (07:51)
[2021-08-28] MEDS: THIAMINE HCL 100 MG TAB PO SCH (07:51)
[2021-08-28] MEDS: dilTIAZem HCL 180 MG CAPCR PO SCH (07:52)
[2021-08-28] MEDS: CETIRIZINE HCL 10 MG TABLET PO SCH ×2 (07:53→07:57)
[2021-08-28] MEDS: PANTOprazole 40 MG TAB PO SCH (07:53)
[2021-08-28] MEDS: CYANOCOBALAMIN (B-12) 500 MCG TABLET PO SCH (07:54)
[2021-08-28] MEDS: METOPROLOL TARTRATE 50 MG TAB PO SCH (07:54)
[2021-08-28] MEDS: APIXABAN 5 MG TABLET PO SCH (07:54)
[2021-08-28] MEDS: busPIRone 5 MG TAB PO SCH (07:54)
[2021-08-28] MEDS: DICLOFENAC SOD 1% GEL 100 GM TUBE EXT PRN (07:55)
[2021-08-28] MEDS: AMMONIUM LACTATE 12% LOTION 225 GM BTL EXT SCH (07:55)
[2021-08-28] MEDS: traMADol HCL 50 MG TABLET PO SCH (07:59)
[2021-08-28] MEDS: POTASSIUM CHLORIDE CRTAB 20 MEQ TABCR PO SCH (08:00)
[2021-08-28] MEDS ORDERED: FUROSEMIDE 80 MG TAB PO STA (08:02)
[2021-08-28] MEDS: LORazepam 0.5 MG TAB PO PRN (08:13)
[2021-08-28] MEDS: INSULIN GLARGINE SOLOSTAR 100 UNITS/ML 3 ML PEN SC SCH (08:33)
[2021-08-28] MEDS: CHOLECALCIFEROL 1,000 UNITS 25 MCG TAB PO SCH (11:48)
[2021-08-28] MEDS: ACETAMINOPHEN 325 MG TAB PO PRN (13:52)
--- NOTE | 2021-08-28 15:01 | Billing Data ---
Date of Service August 28, 2021 Coding Level of Care Code D/C DAY MANAGEMENT <30 MINS
[2021-08-29] MEDS ORDERED: FUROSEMIDE 80 MG TAB PO SCH (09:00)
== END 2021-08-28 15:34 | DRG 291 ==
LOC: ED 15:57 → 2S 20:03 → SUATTDRO 20:03 → 2S 22:04 → 3N 08-25 15:16